=== PATIENT | male | born 1955 | race Caucasian/White ===

== ENCOUNTER 2023-10-26 09:48 | Outpatient (OUT) | payer OTHER, SELFPAY ==
--- NOTE | 2023-10-26 11:27 | CA_ITS ---
Patient Name: DARIN VAN MR#: [id number] : 1955 Exam Date: 10/26/2023 Ordering Doctor: MRS. 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 DESCRIPTION: COMPLETE ECHOCARDIOGRAM Real-time transthoracic echocardiography with 2D, M-mode, spectral and color flow Doppler performed. QUALITY: Technical quality was good. 72 , 208#, BSA 2.17 m2 LEFT VENTRICLE: Normal chamber size. Thickened septal wall. LV EF: Global left ventricular systolic function is mildly reduced; visually estimated ejection fraction is 40 to 45%. Calculated left ventricular ejection fraction is 41%. DIASTOLIC: Grade I diastolic dysfunction. ATRIAL SEPTUM: Inadequately seen. LEFT ATRIUM: Normal chamber size. RIGHT ATRIUM: Normal chamber size. RIGHT VENTRICLE: Normal chamber size. Normal right ventricular systolic function. TRICUSPID VALVE: Normal mobility and thickness. No stenosis with trivial regurgitation. Doppler studies reveal mildly (35-45) elevated right sided pressures. RVSP 35 mmHg MITRAL VALVE: Mildly thickened with normal mobility. No evidence of mitral valve stenosis. There is no mitral annular calcification. Trivial mitral regurgitation. AORTIC VALVE: Normal trileaflet appearance. Moderately thickened and calcified aortic valve. evidence of aortic valve stenosis. No aortic regurgitation. AORTIC ROOT: The aortic root appears moderately enlarged and measures 4.5 cm. PULMONIC VALVE: Normal thickness and mobility. No stenosis. No regurgitation. PERICARDIUM: No evidence of pericardial effusion. IVC: Collapses with inspirations. IVC is normal in size. CONCLUSION: 1. Global left ventricular systolic function is mildly reduced; visually estimated ejection fraction is 40-45% 2. The right ventricle is normal in size and systolic function 3. Mildly elevated right ventricular systolic pressure; RVSP 25 mmHg 4. Aortic root appears moderately enlarged measuring 4.5 cm 5. No significant valvular abnormalities Adult Echocardiography Procedure Report Left Ventricle LVEDD (3. The right ventricle is normal in size and systolic function - 5.6 cm): 4.44 cm LVESD (2.2 - 4.0 cm): 3.23 cm LVIVS thickness (0.6 - 1.2 cm): 1.36 cm LVPW thickness (0.5 - 1.0 cm): 1.15 cm E - e': 8.26 LVOT Max Gradient: 6.04 mm[Hg] LVOT Area (cm2): 1.23 m/s Peak Velocity (LVOT): 1.23 m/s Mean Velocity (LVOT): 0.72 m/s LVOT Diameter 2.54 cm Left Atrium LA Volume Index (2D A2C): 27.38 ml/m2 Left Atrium Systolic Dimension: 3.81 cm Mitral Valve MV E to A Ratio: 0.72 Mitral Valve A-Wave Peak Velocity: 1.06 m/s Mitral Valve E-Wave Peak Velocity: 0.76 m/s Right Ventricle Aorta AO Root Diam: 4.53 cm Aortic Valve AoV Area (Peak Zachariah): 4.90 cm2, 4.90 cm2 AoV Area (VTI): 4.19 cm2, 4.19 cm2 Peak Velocity(Antegrade Flow): 1.27 m/s, 1.23 m/s, 1.14 m/s, 1.18 m/s Peak Gradient(Antegrade Flow): 6.41 mm[Hg], 6.05 mm[Hg], 5.17 mm[Hg], 5.54 mm[Hg] Mean Velocity(Antegrade Flow): 0.84 m/s, 0.82 m/s, 0.70 m/s, 0.71 m/s Mean Gradient(Antegrade Flow): 3.30 mm[Hg], 3.15 mm[Hg], 2.43 mm[Hg], 2.46 mm[Hg] Velocity Time Integral: 21.95 cm, 20.93 cm, 19.49 cm, 20.61 cm Tricuspid Valve Peak Velocity (Regurgitant Flow): 2.81 m/s Pulmonic Valve Peak Gradient: 2.82 mm[Hg], 2.68 mm[Hg] Right Atrium Right Atrium Systolic Pressure: 37.19 ml, 37.19 ml Dictated by: Abigail De Luna M.D. on 10/26/2023 at 13:35 Approved by: Abigail De Luna M.D. on 10/26/2023 at 13:41
== END 2023-10-26 09:49 | disposition home or self-care (01) ==
LOC: CARD 09:48
PROVIDERS: PCP Family Medicine; Visit Provider Nurse Practitioner Acute Care
DX: I50.22 Chronic systolic (congestive) heart failure (principal)
CPT/HCPCS: 93306; 93356

== ENCOUNTER 2024-09-16 10:15 | Inpatient (IN) | payer MEDICARE, OTHER, SELFPAY ==
[2024-09-16] VITALS (35 sets, daily range): BP systolic 87–126; BP diastolic 53–76; PULSE 83–110; TEMP 36.6–37; O2SAT 90–97; BMI 28.2; BMI 28.8
--- NOTE | 2024-09-16 10:19 | ECG_ITS ---
[facility] Test Date: 2024-09-16 Pat Name: Yoel To Department: Room: - Gender: Male [employer]: : 1955 Requested By: JANKI PINZON Order Number: [id number] Reading MD: ANNETTE SCHWARTZ Measurements Intervals [place] Rate: 97 P: 67 MO: 192 QRS: 8 QRSD: 102 T: 171 QT: 342 QTc: 397 Interpretive Statements 1100 Sinus rhythm [address] depression 4564 Twave abnormality, possible lateral ischemia 9150 abnormal ECG Electronically Signed On 09-17-2024 7:42:26 EST by ANNETTE SCHWARTZ
--- NOTE | 2024-09-16 10:19 | XR_ITS ---
[address] [address] Patient Name: DARIN VAN MRN: [id number] date: 1955 Sex: M Assigned Patient Location: ER Current Patient Location: ER Accession/Order Number: [id number] Exam Date: 09/16/2024 10:25 Report Date: 09/16/2024 11:20 At the request of: ANY HART Procedure: XR chest 1V EXAM: XR chest 1V HISTORY: cough COMPARISON: None FINDINGS/IMPRESSION: 1. Mild patchy consolidation at the right lung base, may represent atelectasis or inflammation/infection. 2. No pneumothorax. No pleural effusion. 3. Heart size and mediastinal contours are normal 4. No acute osseous abnormality. Right Mediport catheter in expected position. 5. Sternal wires are intact. 6. Upper abdominal gas pattern is nonspecific. Electronically authenticated by: LEENA BEAR Date: 09/16/2024 11:20
--- OUTSIDE RECORDS SUMMARY | 2024-09-16 10:29 | XMS_ITS | CCD ---
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 Name Role Phone PHYSICIAN, DEFAULT Unavailable Unavailable PHYSICIAN, DEFAULT Unavailable Unavailable ALEC PINZON Unavailable Unavailable PHYSICIAN, DEFAULT Unavailable Unavailable PHYSICIAN, DEFAULT Unavailable Unavailable LAEC PINZON Unavailable Unavailable LalyereAlec modi Primary Care Provider BARBARA PEREA Referring Unavailable ALISSONSABRINA SA Referring Unavailable NADERER, ALEC ISAAC Primary Care Unavailabl e АНДРЕЙ, ANDREIA Referring Unavailable NADERER, ALEC ISAAC Primary Care Unavailabl e АНДРЕЙ, ANDREIA Referring Unavailable NADERELy, ALEC ISAAC Primary Care Unavailabl e АНДРЕЙ, ANDREIA Referring Unavailable NADERER, ALEC ISAAC Primary Care Unavailabl e NadereAlec modi Primary Care Provider Alec Pinzon MD Primary Care Provider ALEC PINZON Primary Care Unavailabl e ROXANN HACKETT Consulting Unavailable ALIA, NING Attending Unavailable ALIA, NING Admitting Unavailable PONCHO SHETH Consulting Unavailable ALIA, NING Consulting Unavailable LEVY, FANTA Consulting Unavailable JONE AMSERINA Consulting Unavailable ZANDRA PINK W Consulting Unavaila FLACO Ernst Consulting Unavailable DIANA SWANSON Consulting Unavailable KERLINE BHATIA Consulting Unavailable Unavailable Primary Care Provider Unavailmitch BUSBY, DR ODOM Admitting Unavailable NADERER, DR ALEC Rose Primary Care Unavailable KEMAL DUNLAPSAM Consulting Unavailable BUSBY, DR ODOM Attending Unavailable BUSBY, DR ODOM Consulting Unavailable NADERER, DR ALEC Rose Attending Unavailable NADERER, DR ALEC Rose Consulting Unavailable NADERER, DR ALEC Rose Primary Care Unavailable NADERER, DR ALEC Rose Admitting Unavailable NADERER, DR ALEC Rose Admitting Unavailable NADERER, DR ALEC Rose Attending Unavailable NADERER, DR ALEC Rose Primary Care Unavailable NADERER, DR ALEC Rose Consulting Unavailable ANGYEBYASMINE, DR STEPHIE Modi Consulting Unavailable NADERER, DR ALEC Rose Primary Care Unavailable SHAHNAZ ., RODDY Admitting Unavailable SHAHNAZ ., RODDY Attending Unavailable DRAKE ., JEWELL HOPSON Consulting Unavailmitch HACKETT, JULISSA Consulting Unavailable ANDERSON, SHAHIDA Consulting Unavailable Terrie, Elba Consulting Unavailable NEFCY, HARMONY Consulting Unavailable NADERER, DR ALEC Rose Attending Unavailable NADERER, DR ALEC Rose Consulting Unavailable NADERER, DR ALEC Rose Primary Care Unavailable NADERER, DR ALEC Rose Admitting Unavailable NADERER, DR ALEC Rose Primary Care Unavailable TERRA, DES Admitting Unavailable TERRA, DES Attending Unavailable DES ELLISON Consulting Unavailable LALYERELy, ALEC Referring Unavailable LALYERELy, ALEC Primary Care Unavailable NADERELy, ALEC Referring Unavailable NADERELy, ALEC Primary Care Unavailable Rose Marie ESCALONA, Alec Primary Care Provider [phone] ROSY, JAS Referring Unavailable KAY DAY Referring Unavailable VIJENDRA, ALEKSANDRA Referring Unavailable HAMMONDS EMIGDIO JESSA Attending Unav ailable VIJENDRA, ALEKSANDRA Attending Unavailable GAVIN LORENZO Referring Unavailable EKWENNA, OBI Referring Unavailable BARRIOS SHAGGY Referring Unavailable HAMMONDS BEAL, JESSA Referring Unav ailable EKWENNA, OBI Attending Unavailable VIJENDRA, ALEKSANDRA Attending Unavailable ROSY, JAS Referring Unavailable ROSY, JAS Referring Unavailable VIJENDRA, ALEKSANDRA Attending Unavailable JAIME GOLDEN Attending Unavailable VIJENDRA, ALEKSANDRA Referring Unavailable HAMMONDS BEAL, JESSA Attending Unav ailable VIJENDRA, ALEKSANDRA Referring Unavailable EKWENNA, OBI Attending Unavailable LASHONDA ROBLES Attending Unavailable VIJENDRA, ALEKSANDRA Referring Unavailable EKWENNA, OBI Attending Unavailable VIJENDRA, ALEKSANDRA Referring Unavailable HAMMONDS BEAL, JESSA Attending Unav ailable VIJENDRA, ALEKSANDRA Referring Unavailable VIJENDRA, ALEKSANDRA Attending Unavailable VIJENDRA, ALEKSANDRA Referring Unavailable CHRISTYJOHNNY MCKNIGHT Attending Unavailable BARRIOS, SHAGGY Attending Unavailable BARB, KAY Referring Unavailable VIJENDRA, ALEKSANDRA Referring Unavailable VIJENDRA, ALEKSANDRA Referring Unavailable HIMA VALLES Attending Unavailable JESSA TORRES Attending Unav ailable VIJENDRA, ALEKSANDRA Referring Unavailable ELGAFY, JAIME Attending Unavailable VIJENDRA, ALEKSANDRA Referring Unavailable GAMBINO, WILLIAM Attending Unavailable VIJENDRA, ALEKSANDRA Referring Unavailable VIJENDRA, ALEKSANDRA Referring Unavailable GAMBINO, WILLIAM Attending Unavailable ELGAFY, JAIME Referring Unavailable EKWENNA, OBPresley Attending Unavailable HAMMONDS EMIGDIO, JESSA Attending Unav ailable NAZZAL, LEDY Attending Unavailable JODEHEVANGELINA Attending Unavailable VIJENDRA, ALEKSANDRA Referring Unavailable MOUKARBEL, CLINTON Attending Unavailable MOUKARBEL, CLINTON Attending Unavailable MARU, KAY Referring Unavailable MOUKARBEL, CLINTON Attending Unavailable VIJENDRA, ALEKSANDRA Attending Unavailable BARB, KAY Referring Unavailable GAMBINO, WILLIAM Referring Unavailable TRAVIS, LASHONDA Attending Unavailable VIJENDRA, ALEKSANDRA Referring Unavailable JESSA TORRES Attending Unav ailable VIJENDRA, ALEKSANDRA Referring Unavailable JESSA TORRES Attending Unav ailable NAZZAL, LEDY Attending Unavailable NAZZAL, MUNIER Admitting Unavailable EKWENNA, OBI Attending Unavailable EKWENNA, OBI Admitting Unavailable NADIA, AMBER Attending Unavailable MARU, KAY Admitting Unavailable NADERELy, ALEC Attending Unavailable NADERER, ALEC Attending Unavailable NADERER, ALEC Attending Unavailable NADERER, ALEC Attending Unavailable Allergies Allergy Classification Reported Allergen(s) Allergy Type Date of Onset Reaction(s) Facility (1 source) 46018,00; Translations: [20584,00] Propensity to adverse reactions (disorder) 9 [facility] Medications Current Medications Medication Drug Class(es) Dates Sig (Normalized) Sig (Original) acetaminophen 325 mg oral tablet (2 sources) Start: 05-02-2021 take 650 mg by mouth every four hours as needed for pain, then take 4000 mg by mouth every twenty-four hours as needed for pain 650 mg, Oral, EVERY 4 HOURS PRN, Pain Mild (1-3), Fever, Fever >100.5 F (38 C), Starting on Wed05/02/21 at 1805 Maximum dose of acetaminophen is 4000 mg from all sources in 24 hours. Recovery(Cath) Start: 04-25-2021 650 mg, Rectal , EVERY 6 HOURS PRN, Pain Mild (1-3), Fever, For temp greater than 100.4 F (38 C), Starting on Wed04/25/21 at 1946 Administer if oral route cannot be used. acetaminophen 325 mg / oxyCODONE hydrochloride 5 mg oral tablet (16 sources) Opioid Agonist Start: 06-28-2024 End: 09-21-2024 take 1 tablet by mouth four times daily as needed for pain oxyCODONE-acetaminophen (Percocet) 5-325 MG tablet Indications: Type 2 diabetes mellitus with diabetic polyneuropathy (CMS/HCC) Take 1 tablet by mouth 4 (four) times a day as needed for severe pain 120 tablet 08/22/2024 09/21/2024 Active Start: 10-31-2019 End: 10-31-2019 oxyCODONE-acetaminophen (PER COCET) 5-325 MG per tablet 2 tablet Start: 10-30-2019 take 2 tablets by mo uth every four hours as needed for pain 2 tablet, Oral, EVERY 4 HOURS PRN, Pain Moderate (4-6), Pain Severe (7-10), Starting 10/30/19 at 2058 Maximum dose of acetaminophen is 4000 mg from all sources in 24 hours. amitriptyline hydrochloride 150 mg oral tablet (12 sources) Tricyclic Antidepressant Start: 02-28-2024 take 1 tablet by mouth at bedtime amitriptyline (Elavil) 150 MG tablet Indications: Type 2 diabetes mellitus with diabetic polyneuropathy (CMS/HCC) TAKE 1 TABLET BY MOUTH AT BEDTIME 90 tablet 3 02/28/2024 Active AMITRIPTYLINE HC L PO Take 150 mg by mouth 0 Active aspirin 81 mg chewable tablet (8 sources) Platelet Aggregation Inhibitor, Nonsteroidal Anti-inflammatory Drug Start: 05-03-2021 take 1 tablet by mouth once daily aspirin 81 MG chewable tablet Take 1 tablet by mouth daily 30 tablet 3 05/03/2021 Active Start: 04-30-2021 aspirin chewab le tablet 81 mg take 1 tablet by manny th in the morning aspirin 81 MG EC tablet Take 1 tablet by mouth in the morning. Active End: 10-31-2019 take 1 tablet by mouth once daily aspirin 81 MG tablet Take 81 mg by mouth daily 0 10/31/2019 Discontinued (Stop Taking at Discharge) atorvastatin 40 mg oral tablet (14 sources) HMG-CoA Reductase Inhibitor Start: 08-13-2023 take 1 tablet by mouth at bedtime atorvastatin (Lipitor) 40 MG tablet Take 40 mg by mouth at bedtime. 08/13/2023 Active Start: 04-25-2021 take 40 mg by mouth once daily 40 mg, Oral, DAILY, First dose on Wed04/25/21 at 1315 Start: 10-30-2019 take 40 mg by mouth once daily 40 mg, Oral, DAILY, First dose on Wed10/30/19 at 2030 take 1 tablet by manny th once daily atorvastatin (LIPITOR) 40 MG tablet Take 40 mg by mouth daily 0 Active Blood Glucose Monitoring Suppl (FreeStyle InsuLinx System) w/Device kit (5 sources) Blood Glucose Monitoring Suppl (FreeStyle InsuLinx System) w/Device kit Active carvedilol 12.5 mg oral tablet (10 sources) alpha-Adrenergic Neema, beta-Adrenergic Neema Start: 05-03-2021 take 1 tablet by mouth twice daily at mealtime carvedilol (COREG) 12.5 MG tablet Take 1 tablet by mouth 2 times daily (with meals) 60 tablet 3 05/03/2021 Active Start: 04-30-2021 carvedilol (CO REG) tablet 12.5 mg Start: 10-30-2019 take 37.5 mg by mout h at mealtime, then take 37 mg by mouth twice daily 37.5 mg (rounded from 37 mg), Oral, 2 TIMES DAILY, First dose on Wed10/30/19 at 2100 Administer with food to minimize the risk of orthostatic hypotension End: 05-03-2021 take 37.5 mg by mouth twice daily Carvedilol (COREG PO) Take 37.5 mg by mouth 2 times daily 0 05/03/2021 Discontinued (Stop Taking at Discharge) take 37.5 mg by mout h twice daily Carvedilol (COREG PO) Take 37.5 mg by mouth 2 times daily 0 Active clopidogrel 75 mg oral tablet (15 sources) P2Y12 Platelet Inhibitor Start: 12-13-2023 take 1 tablet by mouth once daily clopidogrel (Plavix) 75 MG tablet Indications: PVD (peripheral vascular disease) ([facility]) TAKE 1 TABLET BY MOUTH EVERY DAY 90 tablet 5 12/13/2023 Active Start: 05-03-2021 take 1 tablet by manny th once daily clopidogrel (PLAVIX) 75 MG tablet Take 1 tablet by mouth daily 90 tablet 5 05/03/2021 Active Start: 04-24-2021 End: 05-03-2021 clopidogrel (PLAVIX) tablet 75 mg End: 10-31-2019 take 1 tablet by mouth once daily clopidogrel (PLAVIX) 75 MG tablet Take 75 mg by mouth daily 0 10/31/2019 Discontinued (Stop Taking at Discharge) dapagliflozin 10 mg oral tablet (5 sources) Sodium-Glucose Cotransporter 2 Inhibitor Start: 07-10-2024 take 1 tablet by mouth once daily Farxiga 10 MG Indications: Type 2 diabetes mellitus with hyperglycemia ([facility]) TAKE 1 TABLET BY MOUTH EVERY DAY 30 tablet 2 07/10/2024 Active diclofenac sodium 0.01 mg/mg topical gel (9 sources) Nonsteroidal Anti-inflammatory Drug Start: 12-07-2019 diclofenac sodium 1 % GEL APPLY TO THE AFFECTED AREA(S) FOUR TIMES DAILY NEEDED (TRANSDERMALLY) 0 12/07/2019 Active End: 09-06-2024 diclofenac sodium (Voltaren) 1 % gel Apply 2 g topically 4 (four) times a day as needed for pain. 09/06/2024 Discontinued docusate sodium 100 mg oral capsule (5 sources) Start: 08-03-2023 take 2 capsules by mouth twice daily at bedtime docusate sodium (Colace) 100 MG capsule TAKE TWO CAPSULES BY MOUTH TWICE DAILY (IN THE MORNING AND AT BEDTIME) 08/03/2023 Active 0.4 ml enoxaparin sodium 100 mg/ml prefilled syringe (1 source) Low Molecular Weight Heparin Start: 10-31-2019 enoxaparin (LOVENOX) injection 40 mg furosemide 20 mg oral tablet (5 sources) Loop Diuretic Start: 08-19-2023 End: 08-18-2024 take 1 tablet by mouth in the morning furosemide (Lasix) 20 MG tablet Take 20 mg by mouth in the morning. 08/19/2023 Active gabapentin 100 mg oral capsule (14 sources) Anti-epileptic Agent Start: 04-24-2024 take 1 capsule by mouth in the morning gabapentin (Neurontin) 100 MG capsule Indications: Type 2 diabetes mellitus with diabetic polyneuropathy, without long-term current use of insulin (CMS/HCC) Take 1 capsule (100 mg) by mouth in the morning and 1 capsule (100 mg) before bedtime. 60 capsule 5 04/24/2024 Active Start: 04-25-2021 take 600 mg by mouth twice reji ly 600 mg, Oral, 2 TIMES DAILY, First dose on Wed04/25/21 at 1315 Start: 10-30-2019 take 600 mg by mouth twice reji ly 600 mg, Oral, 2 TIMES DAILY, First dose on Wed10/30/19 at 2100 glipiZIDE 10 mg oral tablet (13 sources) Sulfonylurea Start: 07-28-2024 take 1 tablet by mouth twice daily glipiZIDE (Glucotrol) 10 MG tablet Indications: Type 2 diabetes mellitus with hyperglycemia (CMS/HCC) TAKE 1 TABLET BY MOUTH TWICE A DAY 180 tablet 1 07/28/2024 Active Start: 02-28-2024 take 1 tablet by manny th twice daily glipiZIDE (Glucotrol) 10 MG tablet Indications: Type 2 diabetes mellitus with hyperglycemia (CMS/HCC) TAKE 1 TABLET BY MOUTH TWICE DAILY 60 tablet 3 02/28/2024 Active Start: 10-31-2019 take 10 mg by mouth once daily before breakfast 10 mg, Oral, DAILY BEFORE BREAKFAST, First dose on Wed10/31/19 at 0700 take 1 tablet by manny th once daily glipiZIDE (GLUCOTROL XL) 10 MG extended release tablet Take 10 mg by mouth daily 0 Active glucagon (rdna) 1 mg injection (1 source) Antihypoglycemic Agent Start: 04-27-2021 glucago n (rDNA) injection 1 mg 150 ml glucose 50 mg/ml injection (3 sources) Start: 04-27-2021 glucose (GLUTO SE) 40 % oral gel 15 g Start: 04-27-2021 dextrose 50 % IV solution Start: 04-27-2021 dextrose 5 % s olution 250 ml heparin sodium, porcine 100 unt/ml injection (4 sources) Unfractionated Heparin, Anti-coagulant Start: 04-25-2021 heparin 25,000 units in dextrose 5% 250 mL (premix) infusion Start: 04-25-2021 End: 04-25-2021 heparin (porcine) injection 4,000 Units Start: 04-25-2021 heparin (porci ne) injection 2,000 Units Start: 04-25-2021 heparin (porci ne) injection 4,000 Units hydrocortisone 10 mg oral tablet (5 sources) Corticosteroid Start: 07-12-2024 End: 10-19-2024 take 1 tablet by mouth every eight hours hydrocortisone (Cortef) 10 MG tablet Take 10 mg by mouth every 8 (eight) hours 07/12/2024 10/19/2024 Active ibuprofen 800 mg oral tablet (6 sources) Nonsteroidal Anti-inflammatory Drug take 1 tablet by mouth every six hours as needed for pain ibuprofen (ADVIL;MOTRIN) 800 MG tablet Take 800 mg by mouth every 6 hours as needed for Pain 0 Active insulin lispro 100 unt/ml injectable solution (2 sources) Insulin Analog Start: 04-27-2021 insulin lispro (HUMALOG) injection vial 0-6 Units labetalol hydrochloride 5 mg/ml injectable solution (2 sources) beta-Adrenergic Neema Start: 04-25-2021 20 mg, Intravenous, EVERY 4 HOURS PRN, High Blood Pressure, Starting on Wed04/25/21 at 1946 Give for systolic blood pressure greater than 160 Start: 10-30-2019 10 mg, Intrave nous, EVERY 4 HOURS PRN, High Blood Pressure, for SBP > 140, Starting Wed10/30/19 at 2022 levothyroxine sodium 0.05 mg oral tablet (2 sources) l-Thyroxine Start: 07-28-2024 take 1 tablet by mouth in the morning levothyroxine (Synthroid, Levoxyl) 50 MCG tablet Take 50 mcg by mouth in the morning. 07/28/2024 Active linagliptin 5 mg oral tablet (1 source) Dipeptidyl Peptidase 4 Inhibitor Start: 10-30-2019 take 5 mg by mouth once daily 5 mg, Oral, DAILY, First dose on Wed10/30/19 at 2030 Substituted for SITagliptin (JANUVIA). lisinopril 20 mg oral tablet (9 sources) Angiotensin Converting Enzyme Inhibitor Start: 04-29-2021 take 40 mg by mouth once daily 40 mg, Oral, DAILY, First dose on Wed04/29/21 at 0900 Start: 10-30-2019 take 40 mg by mouth once daily 40 mg, Oral, DAILY, First dose on Wed10/30/19 at 2030 take 1 tablet by manny th once daily lisinopril (PRINIVIL;ZESTRIL) 40 MG tablet Take 40 mg by mouth daily 0 Active magnesium hydroxide 80 mg/ml oral suspension (1 source) Start: 10-31-2019 take 30 mL by mouth once daily as needed for constipation 30 mL, Oral, DAILY PRN, Constipation, Starting Wed10/31/19 at 1009 First line therapy for constipation. metFORMIN hydrochloride 1000 mg oral tablet (7 sources) Biguanide take 1 tablet by mouth twice daily at mealtime metFORMIN (GLUCOPHAGE) 1000 MG tablet Take 1,000 mg by mouth 2 times daily (with meals) 0 Active metoprolol tartrate 25 mg oral tablet (6 sources) beta-Adrenergic Neema Start: 07-12-2024 take 1 tablet by mouth in the morning metoprolol tartrate (Lopressor) 25 MG tablet Take 25 mg by mouth in the morning and 25 mg before bedtime. 07/12/2024 Active Start: 04-25-2021 End: 04-30-2021 metoprolol tartrate (LOPRESS OR) tablet 25 mg mupirocin 0.02 mg/mg topical ointment (3 sources) RNA Synthetase Inhibitor Antibacterial Start: 11-22-2019 mupirocin (BACTROBAN ) 2 % ointment APPLY TO THE AFFECTED AREA(S) THREE TIMES DAILY (EXTERNALLY) 0 11/22/2019 Active 24 hr nicotine 0.292 mg/hr transdermal system (1 source) Cholinergic Nicotinic Agonist Start: 04-26-2021 nicotine (NICODERM CQ) 7 MG/24HR 1 patch nitroglycerin 0.4 mg sublingual tablet (8 sources) Nitrate Vasodilator Start: 04-25-2021 0.4 mg, Yepez blingual, EVERY 5 MIN PRN, Chest pain, Starting on Wed04/25/[address] 1 tablet under tongue upon chest pain, wait 5 minutes and may repeat up to 3 doses in 15 minutes. Do not crush or break. nitroGLYCERIN (N ITROSTAT) 0.[address] 0.4 mg under the tongue every 5 minutes as needed for Chest pain up to max of 3 total doses. If no relief after 1 dose, call 911. 0 Active 2 ml ondansetron 2 mg/ml injection (1 source) Serotonin-3 Receptor Antagonist Start: 10-31-2019 4 mg, Intravenous, EVERY 6 HOURS PRN, Nausea, Starting Wed10/31/19 at 1009 ondansetron (ZOFRAN-ODT) disintegrating tablet 4 mg (1 source) Start: 04-25-2021 ondansetron (ZOFRAN-ODT) disintegrating tablet 4 mg pantoprazole 40 mg delayed release oral tablet (15 sources) Proton Pump Inhibitor Start: 07-06-2024 take 1 tablet by mouth twice daily pantoprazole (ProtoNix) 40 MG EC tablet Indications: CAD, multiple vessel (CMS/HCC) TAKE 1 TABLET BY MOUTH TWICE A DAY 90 tablet 1 07/06/2024 Active Start: 05-03-2021 take 1 tablet by manny th once daily pantoprazole (PROTONIX) 40 MG tablet Take 1 tablet by mouth nightly 30 tablet 3 05/03/2021 Active Start: 04-25-2021 pantoprazole ( PROTONIX) tablet 40 mg Start: 10-30-2019 take 80 mg by mouth once daily 80 mg, Oral, DAILY, First dose on Wed10/30/19 at 2030 End: 05-03-2021 take 80 mg by mouth once daily Pantoprazole Sodium (VT OTONIX PO) Take 80 mg by mouth nightly 0 05/03/2021 Discontinued (Stop Taking at Discharge) take 80 mg by mouth once daily P antoprazole Sodium (PROTONIX PO) Take 80 mg by mouth daily 0 Active pioglitazone 15 mg oral tablet (8 sources) Peroxisome Proliferator Receptor alpha Agonist, Peroxisome Proliferator Receptor gamma Agonist, Thiazolidinedione Start: 10-30-2019 take 30 mg by mouth once daily 30 mg, Oral, DAILY, First dose on Wed10/30/19 at 2030 take 1 tablet by mouth once deric y pioglitazone (ACTOS) 30 MG tablet Take 30 mg by mouth daily 0 Active polyethylene glycol [id number] [id number] mg powder for oral solution (1 source) Osmotic Laxative Start: 04-25-2021 17 g, Oral, D AILY PRN, Constipation, Starting on Wed04/25/21 at 1946 First line therapy for constipation Potassium Chloride (3 sources) Start: 04-28-2021 potassium chlo ride (KLOR-CON M) extended release tablet 40 mEq Start: 04-26-2021 End: 04-27-2021 potassium chloride (KLOR-CON M) extended release tablet 40 mEq pyridostigmine bromide 30 mg oral tablet (1 source) Start: 07-12-2024 End: 08-11-2024 pyridostigmine (Mestinon) 30 MG tablet Take 30 mg by mouth in the morning and 30 mg at noon and 30 mg in the evening. 07/12/2024 08/11/2024 Active SITagliptin 100 mg oral tablet (7 sources) Dipeptidyl Peptidase 4 Inhibitor take 1 tablet by mouth once daily SITagliptin (JANUVIA) 100 MG tablet Take 100 mg by mouth daily 0 Active sodium bicarbonate 650 mg oral tablet (2 sources) take 1 tablet by mouth in the morning sodium bicarbonate 650 MG tablet Take 650 mg by mouth in the morning and 650 mg before bedtime. Active 3 ml sodium chloride 9 mg/ml injection (12 sources) Start: 04-28-2021 5-40 mL, Intravenous, PRN, Line Care, Starting on Wed05/02/21 at 1805 For Line Patency: Peripheral IV = 5 mL; Midline or Central Line = 10 mL/lumen. &nbsp ;If following IV push medication, administer flush at same rate as the IV push. Flush volume is determined by type of infusion therapy being given. Fo r non-viscous solutions use: Peripheral IV = 5 mL Midline or Central Line = 10 mL/lumen For viscous solutions (i.e. blood components, parenteral nutrition, contrast media, or after obtaining blood sample) use: Peripheral IV = 10 mL Midline or Central Line = 20 mL/lumen Recovery(Cath) Start: 04-25-2021 take 1 dose intraven ously twice daily 5-40 mL, Intravenous, EVERY 12 HOURS SCHEDULED (2 times per day), First dose on Wed05/02/21 at 2100 For Line Patency: Peripheral IV = 5 mL; Midline or Central Line = 10 mL/lumen. If following IV push medication, administer flush at same rate as the IV push. Flush volume is determined by type of infusion therapy being given. For non-viscous solutions use: Peripheral IV = 5 mL Midline or Central Line = 10 mL/lumen For viscous solutions (i.e. blood components, parenteral nutrition, contrast media, or after obtaining blood sample) use: Peripheral IV = 10 mL Midline or Central Line = 20 mL/lumen Recovery(Cath) Start: 04-25-2021 take 5-40 mL intrave nously once as needed 5-40 mL, Intravenous, PRN, Line Care, After every IV line use, Starting on Wed04/25/21 at 1946 For Line Patency: Peripheral IV = 5 mL; Midline or Central Line = 10 mL/lumen. If following IV push medication, administer flush at same rate as the IV push. Flush volume is determined by type of infusion therapy being given. For non-viscous solutions use: Peripheral IV = 5 mL Midline or Central Line = 10 mL/lumen For viscous solutions (i.e. blood components, parenteral nutrition, contrast media, or after obtaining blood sample) use: Peripheral IV = 10 mL Midline or Central Line = 20 mL/lumen Start: 04-25-2021 take 25 mL intraveno usly every hour as needed 25 mL, Intravenous, at 100 mL/hr, PRN, If patient receiving piggyback infusions without ordered maintenance IV fluids or with frequent/long duration piggyback infusions, Starting on Wed05/02/21 at 1805 Administer at the same rate as the piggyback being infused. Recovery(Cath) Start: 04-24-2021 End: 04-25-2021 0.9 % sodium chloride bolus Start: 10-31-2019 10 mL, Intrave nous, EVERY 12 HOURS SCHEDULED (2 times per day), First dose on Wed10/31/19 at 1030 Start: 10-31-2019 take 10 mL intraveno usly once as needed 10 mL, Intravenous, PRN, Line Care, After every IV line use, Starting Wed10/31/19 at 1009 traZODone hydrochloride 100 mg oral tablet (9 sources) Serotonin Reuptake Inhibitor Start: 04-25-2021 take 200 mg by mouth once daily 200 mg, Oral, NIGHTLY, First dose on Wed04/25/21 at 2100 Start: 10-30-2019 take 50 mg by mouth once daily 50 mg, Oral, NIGHTLY, First dose on Wed10/30/19 at 2100 take 200 mg by mouth once daily TRAZODONE HCL PO Take 200 mg of ampicillin by mouth nightly 0 Active triamcinolone acetonide 5 mg/ml topical cream (5 sources) Corticosteroid triamcinolone (K enalog) 0.5 % cream Apply topically 3 (three) times a day. Active varenicline (1 source) Partial Cholinergic Nicotinic Agonist varenicline (CHANTIX STARTING MONTH ) 0.5 MG X 11 & 1 MG X 42 tablet Chantix Starting Month Box 0.5 mg (11)-1 mg (42) tablets in dose pack 0 Active Completed/Discontinued Medications Medication Drug Class(es) Dates Sig (Normalized) Sig (Original) 2 ml fentaNYL 0.05 mg/ml injection (2 sources) Opioid Agonist Start: 04-25-2021 End: 04-24-2021 fentaNYL (SUBLIMAZE) injection 50 mcg Start: 04-24-2021 End: 04-24-2021 fentaNYL (SUBLIMAZE) injecti on 25 mcg 1 ml haloperidol 5 mg/ml injection (2 sources) Typical Antipsychotic Start: 04-25-2021 End: 04-25-2021 haloperidol lactate (HALDOL) injection 5 mg Start: 04-25-2021 End: 04-25-2021 haloperidol lactate (HALDOL) 5 MG/ML injection iopamidol (ISOVUE-370) 76 % injection 90 mL (1 source) Start: 04-24-2021 End: 04-24-2021 iopamidol (ISOVUE-370) 76 % injection 90 mL 1 ml LORazepam 2 mg/ml injection (3 sources) Benzodiazepine Start: 04-25-2021 End: 04-25-2021 LORazepam (ATIVAN) injection 1 mg Start: 04-25-2021 End: 04-25-2021 LORazepam (ATIVAN) injection 2 mg 50 ml magnesium sulfate 40 m g/ml injection (3 sources) Start: 05-02-2021 End: 05-02-2021 magnesium sulfate 2000 mg in 50 mL IVPB premix Start: 04-28-2021 End: 04-28-2021 magnesium sulfate 1000 mg in dextrose 5% 100 mL IVPB Start: 04-27-2021 End: 04-27-2021 magnesium sulfate 2000 mg in 50 mL IVPB premix Problems Active Problems Problem Classification Problem Date Documented Da te Episodic/Chronic Acute cerebrovascular disease (20 sources) Cerebrovascular accident; Translations: [Intraparenchymal hemorrhage of brain] Onset: 0 10-30-2019 Chronic Acute cerebrovascular disease (4 sources) Acute stroke; Translations: [Acute cerebrovascular accident (CVA)] Onset: 0 10-30-2019 Acute myocardial infarction (2 sources) Myocardial infarction; Translations: [Non-ST elevation (NSTEMI) myocardial infarction] Onset: 1 Chronic Aortic; peripheral; and visceral artery aneurysms (7 sources) Aneurysm of thoracic aorta; Translations: [Aneurysm of thoracic aorta] Onset: 2 09-07-2023 Chronic Cancer of kidney and renal pelvis (7 sources) Renal cell carcinoma; Translations: [Malignant neoplasm of unspecified kidney, except renal pelvis] Onset: 4 03-15-2024 Chronic Chronic kidney disease (5 sources) Chronic kidney disease stage 3B ; Translations: [CKD stage 3b, GFR 30-44 ml/min] Onset: 4 03-15-2024 Chronic Chronic kidney disease (2 sources) Chronic kidney disease; Translations: [Chronic kidney disease, stage 3a] Onset: 4 Conditions associated with dizziness or vertigo (2 sources) Dizziness and giddiness; Translations: [Dizziness and giddiness] Onset: 4 Episodic Congestive heart failure; nonhypertensive (2 sources) Chronic systolic (congestive) heart failure; Translations: [Chronic systolic (congestive) heart failure] Onset: 4 Chronic Coronary atherosclerosis and other heart disease (13 sources) Multi vessel coronary artery disease; Translations: [Atherosclerotic heart disease of [place] coronary artery without angina pectoris] Onset: 1 Chronic Coronary atherosclerosis and other heart disease (6 sources) Patient post percutaneous transluminal coronary angioplasty; Translations: [Coronary angioplasty status] Onset: 1 Episodic Diabetes mellitus with complications (20 sources) Type 2 diabetes mellitus with hyperglycemia; Translations: [Type 2 diabetes mellitus with diabetic peripheral angiopathy without gangrene] Onset: 2 Chronic Diabetes mellitus without complication (3 sources) Secondary diabetes mellitus; Translations: [Type 2 diabetes mellitus] Onset: 1 Chronic Disorders of lipid metabolism (6 sources) Hyperlipidemia, unspecified; Translations: [Hyperlipidemia] Onset: 2 09-07-2023 Chronic Diverticulosis and diverticulitis (1 source) Diverticulosis of intestine, part unspecified, without perforation or abscess without bleeding; Translations: [DVRTCLOS PRT UNS NO PERF/ABSC NO BL] Onset: 2 Chronic Esophageal disorders (8 sources) Gastro-esophageal reflux disease without esophagitis; Translations: [Gastroesophageal reflux disease] Onset: 2 09-07-2023 Chronic Essential hypertension (10 sources) Essential (primary) hypertension; Translations: [Benign essential hypertension] Onset: 2 09-07-2023 Chronic Fluid and electrolyte disorders (6 sources) Hypokalemia; Translations: [Hypokalemia] Onset: 1 Episodic Late effects of cerebrovascular disease (4 sources) Left hemiparesis; Translations: [Hemiplegia and hemiparesis following cerebral infarction affecting left non-dominant side] 09-06-2024 Chronic Maintenance chemotherapy; radiotherapy (4 sources) Encounter for antineoplastic immunotherapy; Translations: [Encounter for antineoplastic chemotherapy] Onset: 4 Chronic Malignant neoplasm without specification of site (2 sources) Malignant (primary) neoplasm, unspecified; Translations: [Malignant (primary) neoplasm, unspecified] Onset: 4 Chronic Miscellaneous mental health disorders (2 sources) Primary insomnia; Translations: [Primary insomnia] 09-06-2024 Chronic Nutritional deficiencies (2 sources) Vitamin D deficiency, unspecified; Translations: [Vitamin D deficiency, unspecified] Onset: 4 Chronic Osteoarthritis (5 sources) Chronic osteoarthritis; Translations: [Unspecified osteoarthritis, unspecified site] Onset: 3 09-07-2023 Chronic Other aftercare (2 sources) 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; Translations: [long term care social worker (current) use of anticoagulants] Episodic Other and ill-defined cerebrovascular disease (1 source) Cerebrovascular disease, unspecified; Translations: [CEREBROVASCULAR DISEASE UNSPECIFIED] Onset: 2 Chronic Other circulatory disease (2 sources) Presence of other vascular implants and grafts; Translations: [Presence of other vascular implants and grafts] Onset: 4 Chronic Other circulatory disease (2 sources) Other hypotension; Translations: [Other hypotension] Onset: 4 Episodic Other circulatory disease (2 sources) Hypotension, unspecified; Translations: [Hypotension, unspecified] Onset: 4 Episodic Other diseases of kidney and ureters (2 sources) Other specified disorders of kidney and ureter; Translations: [Other specified disorders of kidney and ureter] Onset: 4 Chronic Other endocrine disorders (2 sources) Unspecified adrenocortical insufficiency; 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 insufficiency] Onset: 4 Chronic Other endocrine disorders (2 sources) Drug-induced adrenocortical insufficiency; Translations: [Drug-induced adrenocortical insufficiency] Onset: 4 Chronic Other endocrine disorders (2 sources) Hyperparathyroidism, unspecified; Translations: [Hyperparathyroidism, unspecified] Onset: 4 Chronic Other endocrine disorders (4 sources) Hypoadrenalism; 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 insufficiency] Onset: 4 09-06-2024 Chronic Other fractures (2 sources) Wedge compression fracture of first lumbar vertebra, subsequent encounter for fracture with routine healing; Translations: [Wedge compression fracture of first lumbar vertebra, subsequent encounter for fracture with routine healing] Onset: 4 Episodic Other gastrointestinal disorders (2 sources) History of gastrointestinal bleed; Translations: [Personal history of other diseases of the digestive system] Episodic Other liver diseases (2 sources) Unspecified jaundice; Translations: [Unspecified jaundice] Onset: 4 Episodic Other lower respiratory disease (2 sources) Other nonspecific abnormal finding of lung field; Translations: [Other nonspecific abnormal finding of lung field] Onset: 4 Episodic Other nervous system disorders (1 source) Intracranial space-occupying lesion; Translations: [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] Episodic Other nutritional; endocrine; and metabolic disorders (2 sources) Hypomagnesemia; Translations: [Hypomagnesemia] Onset: 1 Chronic Other nutritional; endocrine; and metabolic disorders (2 sources) Hypercalcemia; Translations: [Hypercalcemia] Onset: 4 Chronic Other screening for suspected conditions (not mental disorders or infectious disease) (3 sources) Encounter for screening for malignant neoplasm of prostate; Translations: [Other specified abnormal findings of blood chemistry] Onset: 3 Episodic Peripheral and visceral atherosclerosis (7 sources) Peripheral vascular disease; Translations: [Peripheral vascular disease, unspecified] Onset: 2 09-07-2023 Chronic Residual codes; unclassified (6 sources) Memory impairment; Translations: [Other amnesia] 05-08-2020 Episodic Residual codes; unclassified (2 sources) Altered mental status; Translations: [Altered mental status, unspecified] Episodic Residual codes; unclassified (2 sources) Acquired absence of kidney; Translations: [Acquired absence of kidney] Onset: 4 Episodic Spondylosis; intervertebral disc disorders; other back problems (2 sources) Discitis; Translations: [Discitis, unspecified, lumbosacral region] Onset: 1 Chronic Substance-related disorders (3 sources) Nicotine dependence, cigarettes, uncomplicated; Translations: [NICOTINE DEPEND CIGARETTES UNCOMP] Onset: 2 Chronic Thyroid disorders (6 sources) Hypothyroidism due to medicaments and other exogenous substances; Translations: [Autoimmune thyroiditis] Onset: 4 Chronic Unclassified (1 source) CONTACT W/AND (SUSP) EXPOS COVID-19; Translations: [CONTACT W/AND (SUSP) EXPOS COVID-19] Onset: 2 Unclassified (3 sources) ANEURYSM ASCEND AORTA W/O RUPTURE; Translations: [ANEURYSM ASCEND AORTA W/O RUPTURE] Onset: 2 Unclassified (1 source) Aneurysm of the ascending aorta, without rupture; Translations: [Aneurysm of the ascending aorta, without rupture] Onset: 3 Unclassified (1 source) Thoracic aortic aneurysm, without rupture, unspecified; Translations: [Thoracic aortic aneurysm, without rupture, unspecified] Onset: 3 Past or Other Problems Problem Classification Problem Date Documented Date Episodic/Chronic Abdominal pain (4 sources) Unspecified abdominal pain; Translations: [UNSPECIFIED ABDOMINAL PAIN] Onset: 09-02-2022 Episodic Biliary tract disease (1 source) Acute cholecystitis; Translations: [ACUTE CHOLECYSTITIS] Onset: 09-04-2022 Episodic Cardiac dysrhythmias (1 source) Tachycardia, unspecified; Translations: [TACHYCARDIA UNSPECIFIED] Onset: 09-04-2022 Episodic Deficiency and other anemia (2 sources) Anemia, unspecified; Translations: [Anemia, unspecified] Onset: 10-06-2023 Episodic Malaise and fatigue (1 source) Weakness; Translations: [WEAKNESS] Onset: 09-04-2022 Episodic Nausea and vomiting (1 source) Vomiting, unspecified; Translations: [VOMITING UNSPECIFIED] Onset: 09-04-2022 Episodic Nonspecific chest pain (1 source) Chest pain, unspecified; Translations: [CHEST PAIN UNSPECIFIED] Onset: 09-04-2022 Episodic Other aftercare (3 sources) Other intermission coordinator (current) drug therapy; Translations: [OTH SENIOR CARE CURRENT DRUG THERAPY] Onset: 11-22-2022 Episodic Other aftercare (1 source) jail (current) use of oral hypoglycemic drugs; Translations: [ASSOCIATE FINANCIAL REPRESENTATIVE USE ORAL HYPOGLYCEMIC DX] Onset: 09-04-2022 Episodic Other aftercare (2 sources) Encounter for other specified aftercare; Translations: [Encounter for other specified aftercare] Onset: 12-09-2023 Episodic Other aftercare (2 sources) Encounter for adjustment and management of vascular access device; Translations: [Encounter for adjustment and management of vascular access device] Onset: 12-08-2023 Episodic Other circulatory disease (2 sources) Personal history of transient ischemic attack (TIA), and cerebral infarction without residual deficits; Translations: [Personal history of transient ischemic attack (TIA), and cerebral infarction without residual deficits] Onset: 07-30-2023 Episodic Other diseases of kidney and ureters (2 sources) Disorder of kidney and ureter, unspecified; Translations: [Disorder of kidney and ureter, unspecified] Onset: 12-29-2023 Episodic Other fractures (2 sources) Collapsed vertebra, not elsewhere classified, lumbar region, subsequent encounter for fracture with routine healing; Translations: [Collapsed vertebra, not elsewhere classified, lumbar region, subsequent encounter for fracture with routine healing] Onset: 05-18-2024 Episodic Other fractures (2 sources) Wedge compression fracture of first lumbar vertebra, sequela; Translations: [Wedge compression fracture of first lumbar vertebra, sequela] Onset: 04-04-2024 Episodic Other injuries and conditions due to external causes (5 sources) At high risk for fall; Translations: [History of falling] Onset: 09-07-2023 09-07-2023 Episodic Other lower respiratory disease (1 source) Shortness of breath; Translations: [SHORTNESS OF BREATH] Onset: 09-04-2022 Episodic Other lower respiratory disease (2 sources) Solitary pulmonary nodule; Translations: [Solitary pulmonary nodule] Onset: 09-14-2023 Episodic Other nervous system disorders (2 sources) Other acute postprocedural pain; Translations: [Other acute postprocedural pain] Onset: 12-16-2023 Episodic Pleurisy; pneumothorax; pulmonary collapse (5 sources) Atelectasis; Translations: [Atelectasis] Onset: 07-30-2023 09-07-2023 Episodic Residual codes; unclassified (1 source) Acquired absence of other specified parts of digestive tract; Translations: [ACQ ABSENCE OTH PART DIGESTV TRACT] Onset: 10-01-2022 Episodic Residual codes; unclassified (5 sources) Insomnia; Translations: [Insomnia, unspecified] Onset: 09-07-2023 09-07-2023 Episodic Septicemia (except in labor) (1 source) Sepsis, unspecified organism; Translations: [SEPSIS UNSPECIFIED ORGANISM] Onset: 09-04-2022 Episodic Skin and subcutaneous tissue infections (4 sources) Cutaneous abscess of abdominal wall; Translations: [CUTANEOUS ABSCESS OF ABDOMINAL WALL] Onset: 09-25-2022 Episodic Unclassified (1 source) ANEURYSM ASCEND AORTA W/O RUPTURE; Translations: [ANEURYSM ASCEND AORTA W/O RUPTURE] Onset: 08-21-2022 Unclassified (1 source) Aneurysm of the ascending aorta, without rupture; Translations: [Aneurysm of the ascending aorta, without rupture] Onset: 07-19-2024 Unclassified (1 source) Thoracic aortic aneurysm, without rupture, unspecified; Translations: [Thoracic aortic aneurysm, without rupture, unspecified] Onset: 02-25-2024 Results Test Name Value Interpretation Reference Range Facility BASIC METABOLIC PANELon 06-19 Anion gap [Moles/Vol] 12 mmol/L Normal 7-20 [facility] Comment on above: Performed By: #### L [id number] ####[facility] ([facility])[address] [place] [address] Calcium [Mass/Vol] 9.1 mg/dL Normal 8.6-10.3 [facility] Comment on above: Performed By: #### L [id number] ####[facility] ([facility])[address] [place] [address] Chloride [Moles/Vol] 106 mmol/L Normal 98-107 [facility] Comment on above: Performed By: #### L [id number] ####[facility] ([facility])[address] [place] [address] CO2 [Moles/Vol] 23 mmol/L Normal 21-31 [facility] Comment on above: Performed By: #### L [id number] ####[facility] ([facility])[address] [place] [address] Creatinine [Mass/Vol] 1.72 mg/dL High 0.70-1.30 [facility] Comment on above: Performed By: #### L [id number] ####[facility] ([facility])[address] [place] [address] GLOMERULAR FILTRATION RATE ML/MIN/1.73 SQ M.PREDICTED 43.0 mL/min/1.73m*2 Low >60.0 [facility] Comment on above: Result Comment: [facility]???s estimated glomerular filtration rate (eGFR) will no longer include consideration of race in its calculation. The National Kidney Foundation???s eGFR Task Force developed new recommendations for the estimation of the glomerular filtration rate in the [place] They recommend immediate implementation of the new equation refit without the race variable in all laboratories because the calculation does not include race. In addition to not including race in the calculation and reporting, it included diversity in its development, and has acceptable performance characteristics and potential consequences that do not disproportionately affect any one group of individuals. Performed By: #### L [id number] ####[facility] ([facility])[address] [place] [address] Glucose [Mass/Vol] 119 mg/dL High 70-100 [facility] Comment on above: Performed By: #### L [id number] ####[facility] ([facility])[address] [place] [address] Potassium [Moles/Vol] 4.1 mmol/L Normal 3.5-5.1 [facility] Comment on above: Performed By: #### L [id number] ####[facility] ([facility])[address] [place] [address] Sodium [Moles/Vol] 137 mmol/L Normal 136-145 [facility] Comment on above: Performed By: #### L [id number] ####[facility] ([facility])[address] [place] [address] Urea nitrogen [Mass/Vol] 22 mg/dL Normal 7-25 [facility] Comment on above: Performed By: #### L [id number] ####[facility] [place] [address] UREA NITROGEN/CREATININE (MASS RATIO) IN SER/PLAS 12.8 Normal [facility] Comment on above: Performed By: #### L [id number] ####[facility] ([facility])[address] [place] [address] CBCon 2024 Erythrocyte distribution width (RBC) [Ratio] 14.4 % Normal 11.5-15.0 [facility] Comment on above: Performed By: #### L [id number] ####[facility] ([facility])[address] [place] [address] ERYTHROCYTE MEAN CORPUSCULAR HEMOGLOBIN CONCENTRATION (G/DL) BY AUTOMATED 33.8 g/dL Normal 32.0-35.0 [facility] Comment on above: Performed By: #### L [id number] ####[facility] ([facility])[address] [place] [address] Hematocrit (Bld) [Volume fraction] 34.9 % Low 39.0-55.0 [facility] Comment on above: Performed By: #### L [id number] ####[facility] ([facility])[address] [place] [address] Hemoglobin (Bld) [Mass/Vol] 11.8 g/dL Low 13.0-17.0 [facility] Comment on above: Performed By: #### L [id number] ####[facility] ([facility])[address] [place] [address] MCH (RBC) [Entitic mass] 30.0 pg Normal 27.0-33.0 [facility] Comment on above: Performed By: #### L [id number] ####[facility] ([facility])[address] [address] MCV (RBC) [Entitic vol] 88.8 fL Normal 82.0-98.0 [facility] Comment on above: Performed By: #### L [id number] ####[facility] ([facility])[address] [address] PLATELETS (10*3/UL) IN BLOOD AUTOMATED COUNT 272 10*3/uL Normal 150-400 [facility] Comment on above: Performed By: #### L [id number] ####[facility] ([facility])[address] [place] [address] RBC (Bld) [#/Vol] 3.93 10*6/uL Low 4.20-5.70 [facility] Comment on above: Performed By: #### L [id number] ####[facility] ([facility])[address] [address] WBC (Bld) [#/Vol] 4.96 10*3/uL Normal 4.00-10.60 [facility] Comment on above: Performed By: #### L [id number] ####[facility] [place] [address] CORTISOLon 2024 CORTISOL (UG/DL) IN SER/PLAS 1.9 ug/dL Low 6-23 [facility] Comment on above: Performed By: #### L [id number] ####[facility] ([facility])[address] [place] [address] MAGNESIUMon 2024 Magnesium [Mass/Vol] 1.3 mg/dL Low 1.9-2.7 [facility] Comment on above: Performed By: #### L [id number] ####[facility] ([facility])[address] [place] [address] PHOSPHORUSon 2024 Magnesium [Mass/Vol] 3.4 mg/dL Normal 2.5-5.0 [facility] Comment on above: Performed By: #### L [id number] ####[facility] ([facility])[address] [place] [address] 30on 07-10-2024 30 The patient is Moder ately Stable - Low risk of patient condition declining or worsening The patient's goals for the shift include Sleep, rest The clinical goals for the shift include Comfort, safety, sleep Normal [facility] BASIC METABOLIC PANELon 06-19 Anion gap [Moles/Vol] 9 mmol/L Normal 7-20 [facility] Comment on above: Performed By: #### L [id number] ####[facility] [place] [address] Calcium [Mass/Vol] 9.4 mg/dL Normal 8.6-10.3 [facility] Comment on above: Performed By: #### L [id number] ####[facility] ([facility] [place] [address] Chloride [Moles/Vol] 106 mmol/L Normal 98-107 [facility] Comment on above: Performed By: #### L [id number] ####[facility] ([facility])[address] [place] [address] CO2 [Moles/Vol] 24 mmol/L Normal 21-31 [facility] Comment on above: Performed By: #### L [id number] ####[facility] ([facility])[address] [place] [address] Creatinine [Mass/Vol] 1.95 mg/dL High 0.70-1.30 [facility] Comment on above: Performed By: #### L [id number] ####[facility] ([facility] [place] [address] GLOMERULAR FILTRATION RATE ML/MIN/1.73 SQ M.PREDICTED 37.2 mL/min/1.73m*2 Low >60.0 [facility] Comment on above: Result Comment: [facility]???s estimated glomerular filtration rate (eGFR) will no longer include consideration of race in its calculation. The National Kidney Foundation???s eGFR Task Force developed new recommendations for the estimation of the glomerular filtration rate in the [place] They recommend immediate implementation of the new equation refit without the race variable in all laboratories because the calculation does not include race. In addition to not including race in the calculation and reporting, it included diversity in its development, and has acceptable performance characteristics and potential consequences that do not disproportionately affect any one group of individuals. Performed By: #### L [id number] ####[facility] ([facility])[address] [place] [address] Glucose [Mass/Vol] 136 mg/dL High 70-100 [facility] Comment on above: Performed By: #### L [id number] ####[facility] ([facility])[address] [place] [address] Potassium [Moles/Vol] 4.1 mmol/L Normal 3.5-5.1 [facility] Comment on above: Performed By: #### L [id number] ####[facility] ([facility])[address] [place] [address] Sodium [Moles/Vol] 135 mmol/L Low 136-145 [facility] Comment on above: Performed By: #### L [id number] ####[facility] ([facility] [place] [address] Urea nitrogen [Mass/Vol] 26 mg/dL High 7-25 [facility] Comment on above: Performed By: #### L [id number] ####[facility] ([facility] [place] [address] UREA NITROGEN/CREATININE (MASS RATIO) IN SER/PLAS 13.3 Normal [facility] Comment on above: Performed By: #### L [id number] ####[facility] ([facility] [place] [address] CBCon 07-10-2024 Erythrocyte distribution width (RBC) [Ratio] 14.6 % Normal 11.5-15.0 [facility] Comment on above: Performed By: #### L [id number] ####[facility] ([facility])[address] [place] [address] ERYTHROCYTE MEAN CORPUSCULAR HEMOGLOBIN CONCENTRATION (G/DL) BY AUTOMATED 33.5 g/dL Normal 32.0-35.0 [facility] Comment on above: Performed By: #### L [id number] ####[facility] ([facility])[address] [place] [address] Hematocrit (Bld) [Volume fraction] 36.4 % Low 39.0-55.0 [facility] Comment on above: Performed By: #### L [id number] ####[facility] ([facility])[address] [place] [address] Hemoglobin (Bld) [Mass/Vol] 12.2 g/dL Low 13.0-17.0 [facility] Comment on above: Performed By: #### L [id number] ####[facility] ([facility])[address] [place] [address] MCH (RBC) [Entitic mass] 30.0 pg Normal 27.0-33.0 [facility] Comment on above: Performed By: #### L [id number] ####[facility] ([facility] [place] [address] MCV (RBC) [Entitic vol] 89.4 fL Normal 82.0-98.0 [facility] Comment on above: Performed By: #### L [id number] ####[facility] ([facility] [place] [address] PLATELETS (10*3/UL) IN BLOOD AUTOMATED COUNT 272 10*3/uL Normal 150-400 [facility] Comment on above: Performed By: #### L [id number] ####[facility] ([facility])[address] [place] [address] RBC (Bld) [#/Vol] 4.07 10*6/uL Low 4.20-5.70 [facility] Comment on above: Performed By: #### L [id number] ####[facility] ([facility])[address] [place] [address] WBC (Bld) [#/Vol] 5.73 10*3/uL Normal 4.00-10.60 [facility] Comment on above: Performed By: #### L [id number] ####[facility] ([facility])[address] [place] [address] CORTISOLon 07-10-2024 CORTISOL (UG/DL) IN SER/PLAS 2.0 ug/dL Low 6-23 [facility] Comment on above: Performed By: #### L [id number] ####[facility] ([facility])[address] [facility] [place] [address] AMMONIAon 07-09-2024 AMMONIA (UMOL/L) IN PLASMA 28 umol/L Normal 18-72 [facility] Comment on above: Performed By: #### L [id number] ####[facility] ([facility])[address] [place] [address] APTTon 07-09-2024 ACTIVATED PARTIAL THROMBOPLASTIN TIME IN PPP BY COAGULATION ASSAY 93.8 Seconds High 25.0-35.0 [facility] Comment on above: Result Comment: Clin ical significance of the APTT is questionable in the presence of heparin. Performed By: #### L [id number] ####[facility] ([facility])[address] [place] [address] CALCIUM, IONIZEDon CALCIUM IONIZED (MMOL/L) IN BLOOD 1.16 mmol/L Normal 1.15-1.33 [facility] Comment on above: Performed By: #### L [id number] ####[facility] [id number] [place] [address] [place] CBC WITH AUTO DIFFERENTIALon 07-09-2024 Basophils (Bld) [#/Vol] 0.04 10*3/uL Normal 0.00-0.20 [facility] Comment on above: Performed By: #### L [id number] ####[facility] ([facility])[address] [place] [address] Basophils/100 WBC (Bld) 0.6 % Normal 0.0-1.0 [facility] Comment on above: Performed By: #### L [id number] ####[facility] ([facility])[address] [place] [address] Eosinophils (Bld) [#/Vol] 0.17 10*3/uL Normal 0.00-0.50 [facility] Comment on above: Performed By: #### L [id number] ####[facility] ([facility])[address] [place] [address] Eosinophils/100 WBC (Bld) 2.7 % Normal 0.0-6.0 [facility] Comment on above: Performed By: #### L [id number] ####[facility] ([facility])[address] [place] [address] Erythrocyte distribution width (RBC) [Ratio] 14.7 % Normal 11.5-15.0 [facility] Comment on above: Performed By: #### L [id number] ####[facility] ([facility])[address] [place] [address] ERYTHROCYTE MEAN CORPUSCULAR HEMOGLOBIN CONCENTRATION (G/DL) BY AUTOMATED 33.8 g/dL Normal 32.0-35.0 [facility] Comment on above: Performed By: #### L [id number] ####[facility] ([facility])[address] [place] [address] Hematocrit (Bld) [Volume fraction] 37.9 % Low 39.0-55.0 [facility] Comment on above: Performed By: #### L [id number] ####[facility] ([facility])[address] [place] [address] Hemoglobin (Bld) [Mass/Vol] 12.8 g/dL Low 13.0-17.0 [facility] Comment on above: Performed By: #### L [id number] ####[facility] ([facility])[address] [place] [address] Immature granulocytes (Bld) [#/Vol] 0.02 10*3/uL Normal 0.00-0.20 [facility] Comment on above: Performed By: #### L [id number] ####[facility] ([facility])[address] [place] [address] Immature granulocytes/100 WBC (Bld) 0.3 % Normal 0.0-1.0 [facility] Comment on above: Performed By: #### L [id number] ####[facility] ([facility])[address] [place] [address] Lymphocytes (Bld) [#/Vol] 1.64 10*3/uL Normal 1.20-4.00 [facility] Comment on above: Performed By: #### L [id number] ####[facility] ([facility])[address] [facility] [address] Lymphocytes/100 WBC (Bld) 26.0 % Normal 20.0-45.0 [facility] Comment on above: Performed By: #### L [id number] ####[facility] ([facility])[address] [place] [address] MCH (RBC) [Entitic mass] 29.8 pg Normal 27.0-33.0 [facility] Comment on above: Performed By: #### L [id number] ####[facility] ([facility])[address] [place] [address] MCV (RBC) [Entitic vol] 88.3 fL Normal 82.0-98.0 [facility] Comment on above: Performed By: #### L [id number] ####[facility] ([facility])[address] [place] [address] Monocytes (Bld) [#/Vol] 0.59 10*3/uL Normal 0.10-1.00 [facility] Comment on above: Performed By: #### L [id number] ####[facility] ([facility])[address] [place] [address] Monocytes/100 WBC (Bld) 9.4 % Normal 5.0-12.0 [facility] Comment on above: Performed By: #### L [id number] ####[facility] ([facility])[address] [place] [address] Neutrophils (Bld) [#/Vol] 3.85 10*3/uL Normal 1.60-7.60 [facility] Comment on above: Performed By: #### L [id number] ####[facility] ([facility])[address] [place] [address] Neutrophils/100 WBC (Bld) 61.0 % Normal 40.0-72.0 [facility] Comment on above: Performed By: #### L [id number] ####[facility] ([facility])[address] [place] [address] NRBC (PER 100 WBCS) BY AUTOMATED COUNT 0.0 % Normal 0 [facility] Comment on above: Performed By: #### L [id number] ####[facility] ([facility])[address] [place] [address] PLATELETS (10*3/UL) IN BLOOD AUTOMATED COUNT 324 10*3/uL Normal 150-400 [facility] Comment on above: Performed By: #### L [id number] ####[facility] ([facility])[address] [place] [address] RBC (Bld) [#/Vol] 4.29 10*6/uL Normal 4.20-5.70 [facility] Comment on above: Performed By: #### L [id number] ####[facility] ([facility])[address] [place] [address] WBC (Bld) [#/Vol] 6.31 10*3/uL Normal 4.00-10.60 [facility] Comment on above: Performed By: #### L [id number] ####[facility] ([facility] [place] [address] COMPREHENSIVE METABOLIC PANE Sonido 07-09-2024 Albumin [Mass/Vol] 3.7 g/dL Normal 3.5-5.7 [facility] Comment on above: Performed By: #### L [id number] ####[facility] ([facility])[address] [place] [address] ALP [Catalytic activity/Vol] 91 U/L Normal 34-104 [facility] Comment on above: Performed By: #### L [id number] ####[facility] ([facility])[address] [place] [address] ALT [Catalytic activity/Vol] 14 U/L Normal 7-52 [facility] Comment on above: Performed By: #### L [id number] ####[facility] ([facility])[address] [place] [address] Anion gap [Moles/Vol] 14 mmol/L Normal 7-20 [facility] Comment on above: Performed By: #### L [id number] ####[facility] ([facility])[address] [place] [address] AST [Catalytic activity/Vol] 14 U/L Normal 13-39 [facility] Comment on above: Performed By: #### L [id number] ####[facility] ([facility])[address] [place] [address] Bilirubin [Mass/Vol] 0.7 mg/dL Normal 0.3-1.0 [facility] Comment on above: Performed By: #### L [id number] ####[facility] ([facility])[address] [place] [address] Calcium [Mass/Vol] 10.0 mg/dL Normal 8.6-10.3 [facility] Comment on above: Performed By: #### L [id number] ####[facility] ([facility])[address] [place] [address] Chloride [Moles/Vol] 100 mmol/L Normal 98-107 [facility] Comment on above: Performed By: #### L [id number] ####[facility] ([facility])[address] [place] [address] CO2 [Moles/Vol] 23 mmol/L Normal 21-31 [facility] Comment on above: Performed By: #### L [id number] ####[facility] ([facility])[address] [place] [address] Creatinine [Mass/Vol] 2.27 mg/dL High 0.70-1.30 [facility] Comment on above: Performed By: #### L [id number] ####[facility] ([facility])[address] [place] [address] GLOMERULAR FILTRATION RATE ML/MIN/1.73 SQ M.PREDICTED 31.0 mL/min/1.73m*2 Low >60.0 [facility] Comment on above: Result Comment: [facility]???s estimated glomerular filtration rate (eGFR) will no longer include consideration of race in its calculation. The [employer] Kid[employer] Foundation???s eGFR Task Force developed new recommendations for the estimation of the glomerular filtration rate in the [place] They recommend immediate implementation of the new equation refit without the race variable in all laboratories because the calculation does not include race. In addition to not including race in the calculation and reporting, it included diversity in its development, and has acceptable performance characteristics and potential consequences that do not disproportionately affect any one group of individuals. Performed By: #### L [id number] ####[facility] ([facility])[address] [place] [address] Glucose [Mass/Vol] 245 mg/dL High 70-100 [facility] Comment on above: Performed By: #### L [id number] ####[facility] ([facility])[address] [place] [address] Potassium [Moles/Vol] 4.4 mmol/L Normal 3.5-5.1 [facility] Comment on above: Performed By: #### L [id number] ####[facility] ([facility])[address] [place] [address] Protein [Mass/Vol] 7.5 g/dL Normal 6.0-8.3 [facility] Comment on above: Performed By: #### L [id number] ####[facility] ([facility])[address] [place] [address] Sodium [Moles/Vol] 133 mmol/L Low 136-145 [facility] Comment on above: Performed By: #### L [id number] ####[facility] ([facility])[address] [place] [address] Urea nitrogen [Mass/Vol] 28 mg/dL High 7-25 [facility] Comment on above: Performed By: #### L [id number] ####[facility] ([facility])[address] [place] [address] UREA NITROGEN/CREATININE (MASS RATIO) IN SER/PLAS 12.3 Normal [facility] Comment on above: Performed By: #### L [id number] ####[facility] ([facility])[address] [place] [address] CT HEAD WO IV CONTRASTon CT HEAD WO IV CONTRAST Normal [facility]Son 07-09-2024 EDNURS states pt was s een a week ago Wednesday for ketruda infusion. Was hypotensive at that time and given fluid. Dr sykes wanted pt to come to ed for eval at that time, but pt declined. Today states his bp was 82/56 with a HR 107. Normal [facility] EDPROVon 07-09-2024 EDPROV Normal [facility] HPon 07-09-2024 HP Normal [facility] LACTIC ACID WITH 4 HOUR REFL EXon 07-09-2024 LACTATE (MMOL/L) IN SER/PLAS 1.1 mmol/L Normal 0.5-2.2 [facility] Comment on above: Performed By: #### L [id number] ####[facility] ([facility])[address] [place] [address] PHOSPHORUSon 07-09-2024 Magnesium [Mass/Vol] 4.5 mg/dL Normal 2.5-5.0 [facility] Comment on above: Performed By: #### L [id number] ####[facility] ([facility])[address] [place] [address] PROTIME-INRon 07-09-2024 INR IN PPP BY COAGULATION ASSAY 1.10 Normal 0.90-1.10 [facility] Comment on above: Result Comment: ACCC P RECOMMENDED INR FOR WARFARIN THERAPY CONDITION INRPROPHYLAXIS OF VENOUS THROMBOSIS 2-3(HIGH-RISK SURGERY)TREATMENT OF VENOUS THROMBOSIS 2-3TREATMENT OF PULMONARY EMBOLISM 2-3PREVENTION OF SYSTEMIC EMBOLISM: 2-3 ACUTE MYOCARDIAL INFARCTION TISSUE HEART VALVES VALVULAR HEART DISEASE ATRIAL FIBRILLATION RECURRENT SYSTEMIC EMBOLISMMECHANICAL HEART VALVE 2.5-3.5 FROM: ORAL ANTICOAGULANTS. MECHANISM OF ACTION, CLINICAL EFFECTIVENESS, AND OPTIMAL THERAPEUTIC RANGE. CHEST 1995;108:231S-246S. Performed By: #### L [id number] ####[facility] ([facility])[address] [place] [address] PROTHROMBIN TIME (PT) IN PPP BY COAGULATION ASSAY 14.2 Seconds Normal 12.3-14.8 [facility] Comment on above: Performed By: #### L [id number] ####[facility] ([facility])[address] [place] [address] PTH, INTACTon 07-09-2024 PARATHYRIN INTACT (PG/ML) IN SER/PLAS 129 pg/mL High 12-88 [facility] Comment on above: Performed By: #### L [id number] ####[facility] ([facility])[address] [place] [address] T3, FREEon 07-09-2024 TRIIODOTHYRONINE (T3) FREE (PG/ML) IN SER/PLAS 3.1 pg/mL Normal 2.5-3.9 [facility] Comment on above: Performed By: #### L [id number] ####[facility] ([facility])[address] [place] [facility] [place] [address] T4, FREEon 07-09-2024 THYROXINE (T4) FREE (NG/DL) IN SER/PLAS 0.53 ng/dL Low 0.71-1.85 [facility] Comment on above: Performed By: #### L [id number] ####[facility] ([facility])[address] [place] [facility] [place] [address] TROPONIN Ion 07-09-2024 Troponin I.cardiac [Mass/Vol] 0.01 ng/mL Normal 0.00-0.04 [facility] Comment on above: Performed By: #### L [id number] ####[facility] ([facility])[address] [place] [facility] [place] [address] TSH3 REFLEX TO FT4on 024 THYROTROPIN (MIU/L) IN SER/PLAS BY DETECTION LIMIT <= 0.05 MIU/L 0.10 mIU/L Low 0.34-5.60 [facility] Comment on above: Performed By: #### L [id number] ####[facility] ([facility])[address] [place] [facility] [place] [address] URINALYSIS WITH REFLEX CULTU REon 07-09-2024 BILIRUBIN, TOTAL PRESENCE IN URINE Negative Normal Negative [facility] Comment on above: Order Comment: Micro scopics not performed on urines with negative chemical reactions unless requested on original order. Performed By: #### L [id number] ####[facility] ([facility])[address] [address] Clarity (U) Clear Normal Clear [facility] Comment on above: Order Comment: Micro scopics not performed on urines with negative chemical reactions unless requested on original order. Performed By: #### L [id number] ####[facility] ([facility])[address] [place] [address] Color (U) Yellow Normal Yellow [facility] Comment on above: Order Comment: Micro scopics not performed on urines with negative chemical reactions unless requested on original order. Performed By: #### L [id number] ####[facility] ([facility])[address] [place] [address] Glucose (U) [Mass/Vol] mg/dL Abnormal [facility] Comment on above: Order Comment: Micro scopics not performed on urines with negative chemical reactions unless requested on original order. Performed By: #### L [id number] ####[facility] ([facility])[address] [place] [address] HEMOGLOBIN PRESENCE IN URINE Negative Normal Negative [facility] Comment on above: Order Comment: Micro scopics not performed on urines with negative chemical reactions unless requested on original order. Performed By: #### L [id number] ####[facility] ([facility])[address] [place] [address] Ketones Ql (U) Negative Normal Negative [facility] Comment on above: Order Comment: Micro scopics not performed on urines with negative chemical reactions unless requested on original order. Performed By: #### L [id number] ####[facility] ([facility])[address] [place] [address] LEUKOCYTE ESTERASE PRESENCE IN URINE BY TEST STRIP Negative Normal Negative [facility] Comment on above: Order Comment: Micro scopics not performed on urines with negative chemical reactions unless requested on original order. Performed By: #### L [id number] ####[facility] ([facility])[address] [place] [address] NITRITE PRESENCE IN URINE Negative Normal Negative [facility] Comment on above: Order Comment: Micro scopics not performed on urines with negative chemical reactions unless requested on original order. Performed By: #### L [id number] ####[facility] ([facility] [place] [address] pH (U) 5.0 [pH] Normal 5.0-8.0 [facility] Comment on above: Order Comment: Micro scopics not performed on urines with negative chemical reactions unless requested on original order. Performed By: #### L [id number] ####[facility] ([facility])[address] [place] [address] Protein (U) [Mass/Vol] Negative Normal Negative Un [facility] Comment on above: Order Comment: Micro scopics not performed on urines with negative chemical reactions unless requested on original order. Performed By: #### L [id number] ####[facility] ([facility])[address] [place] [address] Specific gravity (U) [Rel density] 1.020 Normal 1.015-1.02 0 [facility] Comment on above: Order Comment: Micro scopics not performed on urines with negative chemical reactions unless requested on original order. Performed By: #### L [id number] ####[facility] ([facility] [place] [address] 36on 06-30-2024 36 Spoke with patient's and she will take him to the ED right now. Normal [facility] Telephoneon 06-30-2024 Telephone Normal [facility] CBC WITH AUTO DIFFERENTIALon 06-29-2024 Basophils (Bld) [#/Vol] 0.04 10*3/uL Normal 0.00-0.20 [facility] Comment on above: Performed By: #### L [id number] ####[facility] ([facility])[address] [place] [address] Basophils/100 WBC (Bld) 0.5 % Normal 0.0-1.0 [facility] Comment on above: Performed By: #### L [id number] ####[facility] ([facility])[address] [place] [address] Eosinophils (Bld) [#/Vol] 0.14 10*3/uL Normal 0.00-0.50 [facility] Comment on above: Performed By: #### L [id number] ####[facility] ([facility])[address] [place] [address] Eosinophils/100 WBC (Bld) 1.8 % Normal 0.0-6.0 [facility] Comment on above: Performed By: #### L [id number] ####[facility] ([facility])[address] [place] [address] Erythrocyte distribution width (RBC) [Ratio] 14.9 % Normal 11.5-15.0 [facility] Comment on above: Performed By: #### L [id number] ####[facility] ([facility])[address] [place] [address] ERYTHROCYTE MEAN CORPUSCULAR HEMOGLOBIN CONCENTRATION (G/DL) BY AUTOMATED 33.5 g/dL Normal 32.0-35.0 [facility] Comment on above: Performed By: #### L [id number] ####[facility] ([facility])[address] [place] [address] Hematocrit (Bld) [Volume fraction] 40.9 % Normal 39.0-55.0 [facility] Comment on above: Performed By: #### L [id number] ####[facility] ([facility])[address] [place] [address] Hemoglobin (Bld) [Mass/Vol] 13.7 g/dL Normal 13.0-17.0 [facility] Comment on above: Performed By: #### L [id number] ####[facility] ([facility])[address] [place] [address] Immature granulocytes (Bld) [#/Vol] 0.02 10*3/uL Normal 0.00-0.20 [facility] Comment on above: Performed By: #### L [id number] ####[facility] ([facility])[address] [place] [address] Immature granulocytes/100 WBC (Bld) 0.3 % Normal 0.0-1.0 [facility] Comment on above: Performed By: #### L [id number] ####[facility] (BE[facility])[address] [place] [address] Lymphocytes (Bld) [#/Vol] 2.27 10*3/uL Normal 1.20-4.00 [facility] Comment on above: Performed By: #### L [id number] ####[facility] ([facility])[address] [place] [address] Lymphocytes/100 WBC (Bld) 30.0 % Normal 20.0-45.0 [facility] Comment on above: Performed By: #### L [id number] ####[facility] ([facility]ER)[address] [place] [address] MCH (RBC) [Entitic mass] 30.0 pg Normal 27.0-33.0 [facility] Comment on above: Performed By: #### L [id number] ####[facility] ([facility])[address] [place] [address] MCV (RBC) [Entitic vol] 89.7 fL Normal 82.0-98.0 [facility] Comment on above: Performed By: #### L [id number] ####[facility] ([facility])[address] [place] [address] Monocytes (Bld) [#/Vol] 0.67 10*3/uL Normal 0.10-1.00 [facility] Comment on above: Performed By: #### L [id number] ####[facility] ([facility])[address] [place] [address] Monocytes/100 WBC (Bld) 8.9 % Normal 5.0-12.0 [facility] Comment on above: Performed By: #### L [id number] ####[facility] ([facility])[address] [place] [address] Neutrophils (Bld) [#/Vol] 4.43 10*3/uL Normal 1.60-7.60 [facility] Comment on above: Performed By: #### L [id number] ####[facility] ([facility])[address] [place] [address] Neutrophils/100 WBC (Bld) 58.5 % Normal 40.0-72.0 [facility] Comment on above: Performed By: #### L [id number] ####[facility] ([facility])[address] [place] [address] NRBC (PER 100 WBCS) BY AUTOMATED COUNT 0.0 % Normal 0 [facility] Comment on above: Performed By: #### L [id number] ####[facility] ([facility])[address] [place] [address] PLATELETS (10*3/UL) IN BLOOD AUTOMATED COUNT 291 10*3/uL Normal 150-400 [facility] Comment on above: Performed By: #### L [id number] ####[facility] ([facility])[address] [place] [address] RBC (Bld) [#/Vol] 4.56 10*6/uL Normal 4.20-5.70 [facility] Comment on above: Performed By: #### L [id number] ####[facility] ([facility])[address] [place] [address] WBC (Bld) [#/Vol] 7.57 10*3/uL Normal 4.00-10.60 [facility] Comment on above: Performed By: #### L [id number] ####[facility] ([facility])[address] [place] [address] COMPREHENSIVE METABOLIC PANE Sonido 06-29-2024 Albumin [Mass/Vol] 4.2 g/dL Normal 3.5-5.7 [facility] Comment on above: Performed By: #### L [id number] ####[facility] ([facility] [place] [address] ALP [Catalytic activity/Vol] 101 U/L Normal 34-104 [facility] Comment on above: Performed By: #### L [id number] ####[facility] ([facility])[address] [place] [address] ALT [Catalytic activity/Vol] 19 U/L Normal 7-52 [facility] Comment on above: Performed By: #### L [id number] ####[facility] ([facility])[address] [place] [address] Anion gap [Moles/Vol] 14 mmol/L Normal 7-20 [facility] Comment on above: Performed By: #### L [id number] ####[facility] ([facility])[address] [place] [address] AST [Catalytic activity/Vol] 18 U/L Normal 13-39 [facility] Comment on above: Performed By: #### L [id number] ####[facility] ([facility])[address] [place] [address] Bilirubin [Mass/Vol] 0.7 mg/dL Normal 0.3-1.0 [facility] Comment on above: Performed By: #### L [id number] ####[facility] ([facility])[address] [place] [address] Calcium [Mass/Vol] 10.2 mg/dL Normal 8.6-10.3 [facility] Comment on above: Performed By: #### L [id number] ####[facility] ([facility])[address] [place] [address] Chloride [Moles/Vol] 101 mmol/L Normal 98-107 [facility] Comment on above: Performed By: #### L [id number] ####[facility] ([facility] [place] [address] CO2 [Moles/Vol] 22 mmol/L Normal 21-31 [facility] Comment on above: Performed By: #### L [id number] ####[facility] ([facility])[address] [place] [address] Creatinine [Mass/Vol] 2.01 mg/dL High 0.70-1.30 [facility] Comment on above: Performed By: #### L [id number] ####[facility] ([facility])[address] [place] [address] GLOMERULAR FILTRATION RATE ML/MIN/1.73 SQ M.PREDICTED 35.9 mL/min/1.73m*2 Low >60.0 [facility] Comment on above: Result Comment: [facility]???s estimated glomerular filtration rate (eGFR) will no longer include consideration of race in its calculation. The National Kidney Foundation???s eGFR Task Force developed new recommendations for the estimation of the glomerular filtration rate in the [place] They recommend immediate implementation of the new equation refit without the race variable in all laboratories because the calculation does not include race. In addition to not including race in the calculation and reporting, it included diversity in its development, and has acceptable performance characteristics and potential consequences that do not disproportionately affect any one group of individuals. Performed By: #### L [id number] ####[facility] ([facility])[address] [place] [address] Glucose [Mass/Vol] 158 mg/dL High 70-100 [facility] Comment on above: Performed By: #### L [id number] ####[facility] ([facility])[address] [place] [address] Potassium [Moles/Vol] 4.2 mmol/L Normal 3.5-5.1 [facility] Comment on above: Performed By: #### L [id number] ####[facility] ([facility])[address] [place] [address] Protein [Mass/Vol] 8.1 g/dL Normal 6.0-8.3 [facility] Comment on above: Performed By: #### L [id number] ####[facility] ([facility])[address] [place] [address] Sodium [Moles/Vol] 133 mmol/L Low 136-145 [facility] Comment on above: Performed By: #### L [id number] ####[facility] ([facility])[address] [place] [address] Urea nitrogen [Mass/Vol] 34 mg/dL High 7-25 [facility] Comment on above: Performed By: #### L [id number] ####[facility] ([facility])[address] [place] [address] UREA NITROGEN/CREATININE (MASS RATIO) IN SER/PLAS 16.9 Normal [facility] Comment on above: Performed By: #### L [id number] ####[facility] ([facility])[address] [place] [address] Labon 06-29-2024 Lab Normal [facility] T3, FREEon 06-29-2024 TRIIODOTHYRONINE (T3) FREE (PG/ML) IN SER/PLAS 3.3 pg/mL Normal 2.5-3.9 [facility] Comment on above: Performed By: #### L [id number] ####[facility] ([facility])[address] [place] [address] T4, FREEon 06-29-2024 THYROXINE (T4) FREE (NG/DL) IN SER/PLAS 0.55 ng/dL Low 0.71-1.85 [facility] Comment on above: Performed By: #### L [id number] ####[facility] ([facility])[address] [place] [address] TSHon 06-29-2024 THYROTROPIN (MIU/L) IN SER/PLAS BY DETECTION LIMIT <= 0.05 MIU/L 0.19 mIU/L Low 0.34-5.60 [facility] Comment on above: Performed By: #### L [id number] ####[facility] ([facility])[address] [place] [address] CBC WITH AUTO DIFFERENTIALon 06-07-2024 Basophils (Bld) [#/Vol] 0.06 10*3/uL Normal 0.00-0.20 [facility] Comment on above: Performed By: #### L [id number] ####[facility] ([facility])[address] [place] [address] Basophils/100 WBC (Bld) 0.7 % Normal 0.0-1.0 [facility] Comment on above: Performed By: #### L [id number] ####[facility] ([facility])[address] [place] [address] Eosinophils (Bld) [#/Vol] 0.13 10*3/uL Normal 0.00-0.50 [facility] Comment on above: Performed By: #### L [id number] ####[facility] ([facility])[address] [place] [address] Eosinophils/100 WBC (Bld) 1.5 % Normal 0.0-6.0 [facility] Comment on above: Performed By: #### L [id number] ####[facility] ([facility])[address] [place] [address] Erythrocyte distribution width (RBC) [Ratio] 14.8 % Normal 11.5-15.0 [facility] Comment on above: Performed By: #### L [id number] ####[facility] ([facility])[address] [place] [address] ERYTHROCYTE MEAN CORPUSCULAR HEMOGLOBIN CONCENTRATION (G/DL) BY AUTOMATED 32.5 g/dL Normal 32.0-35.0 [facility] Comment on above: Performed By: #### L [id number] ####[facility] ([facility])[address] [place] [address] Hematocrit (Bld) [Volume fraction] 43.1 % Normal 39.0-55.0 [facility] Comment on above: Performed By: #### L [id number] ####[facility] ([facility] [place] [address] Hemoglobin (Bld) [Mass/Vol] 14.0 g/dL Normal 13.0-17.0 [facility] Comment on above: Performed By: #### L [id number] ####[facility] ([facility])[address] [place] [address] Immature granulocytes (Bld) [#/Vol] 0.03 10*3/uL Normal 0.00-0.20 [facility] Comment on above: Performed By: #### L [id number] ####[facility] ([facility])[address] [place] [address] Immature granulocytes/100 WBC (Bld) 0.3 % Normal 0.0-1.0 [facility] Comment on above: Performed By: #### L [id number] ####[facility] ([facility])[address] [place] [address] Lymphocytes (Bld) [#/Vol] 2.02 10*3/uL Normal 1.20-4.00 [facility] Comment on above: Performed By: #### L [id number] ####[facility] ([facility])[address] [place] [address] Lymphocytes/100 WBC (Bld) 23.2 % Normal 20.0-45.0 [facility] Comment on above: Performed By: #### L [id number] ####[facility] ([facility])[address] [place] [address] MCH (RBC) [Entitic mass] 29.9 pg Normal 27.0-33.0 [facility] Comment on above: Performed By: #### L [id number] ####[facility] ([facility])[address] [place] [address] MCV (RBC) [Entitic vol] 91.9 fL Normal 82.0-98.0 [facility] Comment on above: Performed By: #### L [id number] ####[facility] ([facility])[address] [place] [address] Monocytes (Bld) [#/Vol] 0.64 10*3/uL Normal 0.10-1.00 [facility] Comment on above: Performed By: #### L [id number] ####[facility] ([facility])[address] [place] [address] Monocytes/100 WBC (Bld) 7.4 % Normal 5.0-12.0 [facility] Comment on above: Performed By: #### L [id number] ####[facility] ([facility])[address] [place] [address] Neutrophils (Bld) [#/Vol] 5.81 10*3/uL Normal 1.60-7.60 [facility] Comment on above: Performed By: #### L [id number] ####[facility] ([facility])[address] [address] Neutrophils/100 WBC (Bld) 66.9 % Normal 40.0-72.0 [facility] Comment on above: Performed By: #### L [id number] ####[facility] ([facility])[address] [address] NRBC (PER 100 WBCS) BY AUTOMATED COUNT 0.0 % Normal 0 [facility] Comment on above: Performed By: #### L [id number] ####[facility] ([facility])[address] [address] PLATELETS (10*3/UL) IN BLOOD AUTOMATED COUNT 300 10*3/uL Normal 150-400 [facility] Comment on above: Performed By: #### L [id number] ####[facility] ([facility])[address] [place] [address] RBC (Bld) [#/Vol] 4.69 10*6/uL Normal 4.20-5.70 [facility] Comment on above: Performed By: #### L [id number] ####[facility] ([facility])[address] [address] WBC (Bld) [#/Vol] 8.69 10*3/uL Normal 4.00-10.60 [facility] Comment on above: Performed By: #### L [id number] ####[facility] ([facility])[address] [place] [address] COMPREHENSIVE METABOLIC PANE Sonido 06-07-2024 Albumin [Mass/Vol] 4.1 g/dL Normal 3.5-5.7 [facility] Comment on above: Performed By: #### L [id number] ####[facility] ([facility])[address] [place] [address] ALP [Catalytic activity/Vol] 108 U/L High 34-104 [facility] Comment on above: Performed By: #### L [id number] ####[facility] ([facility])[address] [place] [address] ALT [Catalytic activity/Vol] 13 U/L Normal 7-52 [facility] Comment on above: Performed By: #### L [id number] ####[facility] ([facility])[address] [place] [address] Anion gap [Moles/Vol] 13 mmol/L Normal 7-20 [facility] Comment on above: Performed By: #### L [id number] ####[facility] ([facility])[address] [place] [address] AST [Catalytic activity/Vol] 13 U/L Normal 13-39 [facility] Comment on above: Performed By: #### L [id number] ####[facility] ([facility])[address] [place] [address] Bilirubin [Mass/Vol] 0.6 mg/dL Normal 0.3-1.0 [facility] Comment on above: Performed By: #### L [id number] ####[facility] ([facility])[address] [place] [address] Calcium [Mass/Vol] 10.4 mg/dL High 8.6-10.3 [facility] Comment on above: Performed By: #### L [id number] ####[facility] ([facility])[address] [place] [address] Chloride [Moles/Vol] 102 mmol/L Normal 98-107 [facility] Comment on above: Performed By: #### L [id number] ####[facility] ([facility])[address] [place] [address] CO2 [Moles/Vol] 24 mmol/L Normal 21-31 [facility] Comment on above: Performed By: #### L [id number] ####[facility] ([facility])[address] [place] [address] Creatinine [Mass/Vol] 1.77 mg/dL High 0.70-1.30 [facility] Comment on above: Performed By: #### L [id number] ####[facility] ([facility])[address] [place] [address] GLOMERULAR FILTRATION RATE ML/MIN/1.73 SQ M.PREDICTED 41.8 mL/min/1.73m*2 Low >60.0 [facility] Comment on above: Result Comment: [facility]???s estimated glomerular filtration rate (eGFR) will no longer include consideration of race in its calculation. The National Kidney Foundation???s eGFR Task Force developed new recommendations for the estimation of the glomerular filtration rate in the [place] They recommend immediate implementation of the new equation refit without the race variable in all laboratories because the calculation does not include race. In addition to not including race in the calculation and reporting, it included diversity in its development, and has acceptable performance characteristics and potential consequences that do not disproportionately affect any one group of individuals. Performed By: #### L [id number] ####[facility] ([facility])[address] [place] [address] Glucose [Mass/Vol] 181 mg/dL High 70-100 [facility] Comment on above: Performed By: #### L [id number] ####[facility] ([facility])[address] [place] [address] Potassium [Moles/Vol] 4.6 mmol/L Normal 3.5-5.1 [facility] Comment on above: Performed By: #### L [id number] ####[facility] ([facility])[address] [place] [address] Protein [Mass/Vol] 7.8 g/dL Normal 6.0-8.3 [facility] Comment on above: Performed By: #### L [id number] ####[facility] ([facility])[address] [place] [address] Sodium [Moles/Vol] 134 mmol/L Low 136-145 [facility] Comment on above: Performed By: #### L [id number] ####[facility] ([facility])[address] [place] [address] Urea nitrogen [Mass/Vol] 31 mg/dL High 7-25 [facility] Comment on above: Performed By: #### L [id number] ####[facility] ([facility])[address] [place] [address] UREA NITROGEN/CREATININE (MASS RATIO) IN SER/PLAS 17.5 Normal [facility] Comment on above: Performed By: #### L [id number] ####[facility] ([facility])[address] [place] [address] Follow-Upon 06-07-2024 Follow-Up Normal [facility] Labon 06-07-2024 Lab Normal [facility] T3, FREEon 06-07-2024 TRIIODOTHYRONINE (T3) FREE (PG/ML) IN SER/PLAS 3.1 pg/mL Normal 2.5-3.9 [facility] Comment on above: Performed By: #### L [id number] ####[facility] ([facility])[address] [place] [address] T4, FREEon 06-07-2024 THYROXINE (T4) FREE (NG/DL) IN SER/PLAS 0.55 ng/dL Low 0.71-1.85 [facility] Comment on above: Performed By: #### L [id number] ####[facility] ([facility])[address] [place] [address] TSHon 06-07-2024 THYROTROPIN (MIU/L) IN SER/PLAS BY DETECTION LIMIT <= 0.05 MIU/L 0.25 mIU/L Low 0.34-5.60 [facility] Comment on above: Performed By: #### L [id number] ####[facility] ([facility])[address] [place] [address] MR LUMBAR SPINE WO CONTRASTo n 06-06-2024 MR LUMBAR SPINE WO CONTRAST Invalid Interpretation Code [facility] POCT GLUCOSE METER UNSOLICIT ED RESULTSon 06-05-2024 Glucose [Mass/Vol] 125 mg/dL High 70-105 [facility] Comment on above: Order Comment: Waive d Testing in the ED is performed under the ED CLIA certificate #[id number]. Result Comment: epit [id number] Performed By: #### L [id number] ####[facility] ([facility] [place] [address] Abstracton 05-24-2024 Abstract Normal [facility] Letter (Out)on 05-24-2024 Letter (Out) [facility] 29on 05-19-2024 29 Addended by: JEWELL MERINO on: 06/16/2024 12:06 PM Modules accepted: Orders Normal [facility] COMPREHENSIVE METABOLIC PANE Sonido 05-19-2024 Albumin [Mass/Vol] 3.9 g/dL Normal 3.5-5.7 [facility] Comment on above: Performed By: #### L [id number] ####[facility] ([facility])[address] [place] [address] ALP [Catalytic activity/Vol] 103 U/L Normal 34-104 [facility] Comment on above: Performed By: #### L [id number] ####[facility] ([facility])[address] [place] [address] ALT [Catalytic activity/Vol] 13 U/L Normal 7-52 [facility] Comment on above: Performed By: #### L [id number] ####[facility] ([facility])[address] [place] [address] Anion gap [Moles/Vol] 14 mmol/L Normal 7-20 [facility] Comment on above: Performed By: #### L [id number] ####[facility] ([facility])[address] [place] [address] AST [Catalytic activity/Vol] 11 U/L Low 13-39 [facility] Comment on above: Performed By: #### L [id number] ####[facility] ([facility])[address] [place] [address] Bilirubin [Mass/Vol] 0.4 mg/dL Normal 0.3-1.0 [facility] Comment on above: Performed By: #### L [id number] ####[facility] ([facility])[address] [place] [address] Calcium [Mass/Vol] 9.7 mg/dL Normal 8.6-10.3 [facility] Comment on above: Performed By: #### L [id number] ####[facility] ([facility])[address] [place] [address] Chloride [Moles/Vol] 102 mmol/L Normal 98-107 [facility] Comment on above: Performed By: #### L [id number] ####[facility] ([facility])[address] [place] [address] CO2 [Moles/Vol] 24 mmol/L Normal 21-31 [facility] Comment on above: Performed By: #### L [id number] ####[facility] ([facility])[address] [place] [address] Creatinine [Mass/Vol] 1.89 mg/dL High 0.70-1.30 [facility] Comment on above: Performed By: #### L [id number] ####[facility] ([facility])[address] [place] [address] GLOMERULAR FILTRATION RATE ML/MIN/1.73 SQ M.PREDICTED 38.7 mL/min/1.73m*2 Low >60.0 [facility] Comment on above: Result Comment: [facility]???s estimated glomerular filtration rate (eGFR) will no longer include consideration of race in its calculation. The National Kidney Foundation???s eGFR Task Force developed new recommendations for the estimation of the glomerular filtration rate in the [place] They recommend immediate implementation of the new equation refit without the race variable in all laboratories because the calculation does not include race. In addition to not including race in the calculation and reporting, it included diversity in its development, and has acceptable performance characteristics and potential consequences that do not disproportionately affect any one group of individuals. Performed By: #### L [id number] ####[facility] ([facility])[address] [place] [address] Glucose [Mass/Vol] 244 mg/dL High 70-100 [facility] Comment on above: Performed By: #### L [id number] ####[facility] ([facility])[address] [place] [address] Potassium [Moles/Vol] 4.4 mmol/L Normal 3.5-5.1 [facility] Comment on above: Performed By: #### L [id number] ####[facility] ([facility])[address] [place] [address] Protein [Mass/Vol] 7.4 g/dL Normal 6.0-8.3 [facility] Comment on above: Performed By: #### L [id number] ####[facility] ([facility])[address] [place] [address] Sodium [Moles/Vol] 136 mmol/L Normal 136-145 [facility] Comment on above: Performed By: #### L [id number] ####[facility] ([facility])[address] [place] [address] Urea nitrogen [Mass/Vol] 31 mg/dL High 7-25 [facility] Comment on above: Performed By: #### L [id number] ####[facility] ([facility])[address] [place] [address] UREA NITROGEN/CREATININE (MASS RATIO) IN SER/PLAS 16.4 Normal [facility] Comment on above: Performed By: #### L [id number] ####[facility] ([facility])[address] [place] [address] IMMUNOFIXATION ELECTROPHORES Mohan 05-19-2024 IMMUNOFIXATION ELECTROPHORESIS 1 See attached report. Normal [facility] Comment on above: Performed By: #### L [id number] ####[facility] ([facility])[address] [place] [address] Magnesium [Mass/Vol] 1440 mg/dL Normal 591-1540 [facility] Comment on above: Performed By: #### L [id number] ####[facility] ([facility])[address] [place] [address] Magnesium [Mass/Vol] 363 mg/dL Normal 60-413 [facility] Comment on above: Performed By: #### L [id number] ####[facility] ([facility])[address] [place] [address] Magnesium [Mass/Vol] 79.2 mg/dL Normal 54-285 [facility] Comment on above: Performed By: #### L [id number] ####[facility] ([facility])[address] [place] [address] KAPPA / LAMBDA LIGHT CHAINS, FREEon 05-19-2024 IMMUNOGLOBULIN LIGHT CHAINS KAPPA/LAMBDA (MASS RATIO) IN SERUM 1.21 Normal 0.22-1.74 [facility] Comment on above: Result Comment: Test Performed by [employer] [address] [place], [place] [id number] - Released 06/16/2024 19:34 Performed By: #### L [id number] ####[facility] [id number] [place] [id number] IMMUNOGLOBULIN LIGHT CHAINS.KAPPA (MG/DL) IN SERUM 75.0 mg/L High <20.8 [facility] Comment on above: Result Comment: Perf ormed using Diazyme reagent on [employer]. Results obtained with different assay methods cannot be used interchangeably. Performed By: #### L [id number] ####[facility] [id number] [place] [address] IMMUNOGLOBULIN LIGHT CHAINS.LAMBDA (MG/DL) IN SERUM 61.8 mg/L High 4.2-27.7 [facility] Comment on above: Result Comment: Perf ormed using Diazyme reagent on [employer]. Results obtained with different assay methods cannot be used interchangeably. Performed By: #### L [id number] ####[facility] [id number] [place] [address] Labon 05-19-2024 Lab Normal [facility] MAGNESIUMon 05-19-2024 Magnesium [Mass/Vol] 1.8 mg/dL Low 1.9-2.7 [facility] Comment on above: Performed By: #### L [id number] ####[facility] ([facility])[address] [place] [address] Orders Onlyon 05-19-2024 Orders Only [facility] PHOSPHORUSon 05-19-2024 Magnesium [Mass/Vol] 3.1 mg/dL Normal 2.5-5.0 [facility] Comment on above: Performed By: #### L [id number] ####[facility] ([facility])[address] [place] [address] PROTEIN ELECTROPHORESIS, SER UMon 05-19-2024 Protein [Mass/Vol] 7.3 g/dL Normal 6.0-8.3 [facility] Comment on above: Performed By: #### L [id number] ####[facility] ([facility])[address] [place] [address] PROTEIN FRACTION (INTERPRETATION) IN SER/PLAS BY ELECTROPHORESIS Please see attached report. Normal [facility] Comment on above: Performed By: #### L [id number] ####[facility] ([facility])[address] [place] [address] PROTEIN ELECTROPHORESIS, URI NE, 24 HOURon 05-19-2024 Protein (U) [Mass/Vol] 13.6 mg/dL [facility]: Result Comment: Ther e are no established reference values for random urine specimens. Performed By: #### L [id number] ####[facility] ([facility])[address] [place] [address] UPEP INTERPRETATION Please see attached report. [facility] Comment on above: Performed By: #### L [id number] ####[facility] ([facility])[address] [place] [address] PTH, INTACTon 05-19-2024 PARATHYRIN INTACT (PG/ML) IN SER/PLAS 234 pg/mL High 12-88 [facility] Comment on above: Performed By: #### L [id number] ####[facility] ([facility])[address] [place] [address] PTH-RELATED PEPTIDEon 2023 PTH-RELATED PROTEIN PLASMA 4.1 pmol/L High 0.0-2.3 [facility] Comment on above: Result Comment: INTE RPRETIVE INFORMATION: Parathyroid Hormone-Related PeptideThis test was developed and its performance characteristicsdetermined by [facility]. It has not been cleared orapproved by the [place] Food and Drug Administration. This test wasperformed in a CLIA certified laboratory and is intended forclinical purposes.Performed By: [facility] [place] [id number] Director: Devon Romeo MD, PhDCLIA Number: [id number] Performed By: #### L [id number] ####[facility] ([facility])[address] [place] [address] T4, FREEon 05-19-2024 THYROXINE (T4) FREE (NG/DL) IN SER/PLAS 0.68 ng/dL Low 0.71-1.85 [facility] Comment on above: Performed By: #### L [id number] ####[facility] ([facility])[address] [place] [address] URIC ACIDon 05-19-2024 Magnesium [Mass/Vol] 6.2 mg/dL Normal 4.4-7.6 [facility] Comment on above: Performed By: #### L [id number] ####[facility] ([facility])[address] [place] [address] VITAMIN D 1,25 DIHYDROXYon 0 05-19-2024 VITAMIN D 1,25-DIHYDROXY 28.3 pg/mL Normal 19.9-79.3 [facility] Comment on above: Result Comment: INTE RPRETIVE INFORMATION: Vitamin D, 1,25-DihydroxyThis test is primarily indicated during patient evaluation forhypercalcemia and renal failure. A normal result does not rule outVitamin D deficiency. The recommended test for diagnosing VitaminD deficiency is Vitamin D 25-hydroxy.Performed By: [facility] [place] [id number] Director: Devon Romeo MD, PhDCLIA Number: [id number] Performed By: #### L [id number] ####[facility] ([facility] [place] [address] VITAMIN D 25 HYDROXYon 05-19 CALCIDIOL (25 [place] VITAMIN D3) (NG/ML) IN SER/PLAS 25.0 ng/mL Low 30.0-80.0 [facility] Comment on above: Result Comment: >80. 0 Toxicity possible Performed By: #### L [id number] ####[facility] ([facility])[address] [place] [address] CBC WITH AUTO DIFFERENTIALon 05-18-2024 Basophils (Bld) [#/Vol] 0.04 10*3/uL Normal 0.00-0.20 [facility] Comment on above: Performed By: #### L [id number] ####[facility] ([facility])[address] [place] [address] Basophils/100 WBC (Bld) 0.5 % Normal 0.0-1.0 [facility] Comment on above: Performed By: #### L [id number] ####[facility] ([facility])[address] [place] [address] Eosinophils (Bld) [#/Vol] 0.11 10*3/uL Normal 0.00-0.50 [facility] Comment on above: Performed By: #### L [id number] ####[facility] ([facility])[address] [place] [address] Eosinophils/100 WBC (Bld) 1.5 % Normal 0.0-6.0 [facility] Comment on above: Performed By: #### L [id number] ####[facility] ([facility])[address] [place] [address] Erythrocyte distribution width (RBC) [Ratio] 14.5 % Normal 11.5-15.0 [facility] Comment on above: Performed By: #### L [id number] ####[facility] ([facility])[address] [place] [address] ERYTHROCYTE MEAN CORPUSCULAR HEMOGLOBIN CONCENTRATION (G/DL) BY AUTOMATED 32.3 g/dL Normal 32.0-35.0 [facility] Comment on above: Performed By: #### L [id number] ####[facility] ([facility] [place] [address] Hematocrit (Bld) [Volume fraction] 44.3 % Normal 39.0-55.0 [facility] Comment on above: Performed By: #### L [id number] ####[facility] ([facility] [place] [address] Hemoglobin (Bld) [Mass/Vol] 14.3 g/dL Normal 13.0-17.0 [facility] Comment on above: Performed By: #### L [id number] ####[facility] ([facility])[address] [place] [address] Immature granulocytes (Bld) [#/Vol] 0.02 10*3/uL Normal 0.00-0.20 [facility] Comment on above: Performed By: #### L [id number] ####[facility] ([facility])[address] [place] [address] Immature granulocytes/100 WBC (Bld) 0.3 % Normal 0.0-1.0 [facility] Comment on above: Performed By: #### L [id number] ####[facility] ([facility])[address] [place] [address] Lymphocytes (Bld) [#/Vol] 1.70 10*3/uL Normal 1.20-4.00 [facility] Comment on above: Performed By: #### L [id number] ####[facility] ([facility])[address] [place] [address] Lymphocytes/100 WBC (Bld) 22.7 % Normal 20.0-45.0 [facility] Comment on above: Performed By: #### L [id number] ####[facility] ([facility])[address] [place] [address] MCH (RBC) [Entitic mass] 30.0 pg Normal 27.0-33.0 [facility] Comment on above: Performed By: #### L [id number] ####[facility] ([facility] [place] [address] MCV (RBC) [Entitic vol] 93.1 fL Normal 82.0-98.0 [facility] Comment on above: Performed By: #### L [id number] ####[facility] ([facility])[address] [place] [address] Monocytes (Bld) [#/Vol] 0.65 10*3/uL Normal 0.10-1.00 [facility] Comment on above: Performed By: #### L [id number] ####[facility] ([facility])[address] [place] [address] Monocytes/100 WBC (Bld) 8.7 % Normal 5.0-12.0 [facility] Comment on above: Performed By: #### L [id number] ####[facility] ([facility])[address] [place] [address] Neutrophils (Bld) [#/Vol] 4.97 10*3/uL Normal 1.60-7.60 [facility] Comment on above: Performed By: #### L [id number] ####[facility] ([facility])[address] [place] [address] Neutrophils/100 WBC (Bld) 66.3 % Normal 40.0-72.0 [facility] Comment on above: Performed By: #### L [id number] ####[facility] ([facility])[address] [place] [address] NRBC (PER 100 WBCS) BY AUTOMATED COUNT 0.0 % Normal 0 [facility] Comment on above: Performed By: #### L [id number] ####[facility] ([facility])[address] [place] [address] PLATELETS (10*3/UL) IN BLOOD AUTOMATED COUNT 295 10*3/uL Normal 150-400 [facility] Comment on above: Performed By: #### L [id number] ####[facility] ([facility])[address] [place] [address] RBC (Bld) [#/Vol] 4.76 10*6/uL Normal 4.20-5.70 [facility] Comment on above: Performed By: #### L [id number] ####[facility] ([facility])[address] [place] [address] WBC (Bld) [#/Vol] 7.49 10*3/uL Normal 4.00-10.60 [facility] Comment on above: Performed By: #### L [id number] ####[facility] ([facility])[address] [place] [address] COMPREHENSIVE METABOLIC PANE [facility] 05-18-2024 Albumin [Mass/Vol] 4.2 g/dL Normal 3.5-5.7 [facility] Comment on above: Performed By: #### L [id number] ####[facility] ([facility])[address] [place] [address] ALP [Catalytic activity/Vol] 116 U/L High 34-104 [facility] Comment on above: Performed By: #### L [id number] ####[facility] ([facility])[address] [place] [address] ALT [Catalytic activity/Vol] 15 U/L Normal 7-52 [facility] Comment on above: Performed By: #### L [id number] ####[facility] ([facility])[address] [place] [address] Anion gap [Moles/Vol] 16 mmol/L Normal 7-20 [facility] Comment on above: Performed By: #### L [id number] ####[facility] ([facility])[address] [place] [address] AST [Catalytic activity/Vol] 16 U/L Normal 13-39 [facility] Comment on above: Performed By: #### L [id number] ####[facility] ([facility])[address] [place] [address] Bilirubin [Mass/Vol] 0.7 mg/dL Normal 0.3-1.0 [facility] Comment on above: Performed By: #### L [id number] ####[facility] ([facility])[address] [place] [address] Calcium [Mass/Vol] 10.5 mg/dL High 8.6-10.3 [facility] Comment on above: Performed By: #### L [id number] ####[facility] ([facility])[address] [place] [address] Chloride [Moles/Vol] 102 mmol/L Normal 98-107 [facility] Comment on above: Performed By: #### L [id number] ####[facility] ([facility])[address] [place] [address] CO2 [Moles/Vol] 21 mmol/L Normal 21-31 [facility] Comment on above: Performed By: #### L [id number] ####[facility] ([facility])[address] [place] [address] Creatinine [Mass/Vol] 1.87 mg/dL High 0.70-1.30 [facility] Comment on above: Performed By: #### L [id number] ####[facility] ([facility])[address] [place] [address] GLOMERULAR FILTRATION RATE ML/MIN/1.73 SQ M.PREDICTED 39.2 mL/min/1.73m*2 Low >60.0 [facility] Comment on above: Result Comment: [facility]???s estimated glomerular filtration rate (eGFR) will no longer include consideration of race in its calculation. The National Kidney Foundation???s eGFR Task Force developed new recommendations for the estimation of the glomerular filtration rate in the [place] They recommend immediate implementation of the new equation refit without the race variable in all laboratories because the calculation does not include race. In addition to not including race in the calculation and reporting, it included diversity in its development, and has acceptable performance characteristics and potential consequences that do not disproportionately affect any one group of individuals. Performed By: #### L [id number] ####[facility] ([facility])[address] [place] [address] Glucose [Mass/Vol] 175 mg/dL High 70-100 [facility] Comment on above: Performed By: #### L [id number] ####[facility] ([facility])[address] [place] [address] Potassium [Moles/Vol] 4.8 mmol/L Normal 3.5-5.1 [facility] Comment on above: Performed By: #### L [id number] ####[facility] ([facility])[address] [place] [address] Protein [Mass/Vol] 8.0 g/dL Normal 6.0-8.3 [facility] Comment on above: Performed By: #### L [id number] ####[facility] ([facility])[address] [place] [address] Sodium [Moles/Vol] 134 mmol/L Low 136-145 [facility] Comment on above: Performed By: #### L [id number] ####[facility] ([facility])[address] [place] [address] Urea nitrogen [Mass/Vol] 32 mg/dL High 7-25 [facility] Comment on above: Performed By: #### L [id number] ####[facility] ([facility])[address] [place] [address] UREA NITROGEN/CREATININE (MASS RATIO) IN SER/PLAS 17.1 Normal [facility] Comment on above: Performed By: #### L [id number] ####[facility] ([facility])[address] [place] [address] CREATININE, URINE, RANDOMon 05-18-2024 Creatinine (U) [Mass/Vol] 87.0 mg/dL Normal 26-299 [facility] Comment on above: Performed By: #### L [id number] ####[facility] ([facility])[address] [place] [address] Labon 05-18-2024 Lab Normal [facility] PROTEIN, URINE, RANDOMon Protein (U) [Mass/Vol] 198.3 mg/dL Normal [facility] Comment on above: Result Comment: Ther e are no established reference values for random urine specimens. Performed By: #### L [id number] ####[facility] ([facility])[address] [place] [address] T3, FREEon 05-18-2024 TRIIODOTHYRONINE (T3) FREE (PG/ML) IN SER/PLAS 3.0 pg/mL Normal 2.5-3.9 [facility] Comment on above: Performed By: #### L [id number] ####[facility] ([facility])[address] [place] [address] TSHon 05-18-2024 THYROTROPIN (MIU/L) IN SER/PLAS BY DETECTION LIMIT <= 0.05 MIU/L 0.49 mIU/L Normal 0.34-5.60 [facility] Comment on above: Performed By: #### L [id number] ####[facility] ([facility])[address] [place] [address] 36on 05-11-2024 36 Scheduled [facility] 36on 05-09-2024 36 [phone] [facility] It is scheduled 06/06 thank you [facility] Follow-Upon 04-28-2024 Follow-Up [facility] Infusionon 04-28-2024 Infusion Normal [facility] ANAon 04-27-2024 JOHNNY PATTERN Nucleolar [facility] Comment on above: Performed By: #### L [id number] ####[facility] ([facility])[address] [place] [address] JOHNNY TITER 1:40 Normal <=1:40 [facility] Comment on above: Result Comment: Test performed using HOLLI IFA JOHNNY Hep-2 Test, a pre-standardized assay designed for the qualitative and semi-quantitative detection of antinuclear antibodies. Performed By: #### L [id number] ####[facility] ([facility])[address] [place] [address] C3 COMPLEMENTon 04-27-2024 Magnesium [Mass/Vol] 130.00 mg/dL Normal 79.00-1 52. 00 [facility] Comment on above: Performed By: #### L [id number] ####[facility] ([facility])[address] [place] [address] C4 COMPLEMENTon 04-27-2024 Magnesium [Mass/Vol] 53.3 mg/dL High 16-38 [facility] Comment on above: Performed By: #### L [id number] ####[facility] ([facility])[address] [place] [address] CBC WITH AUTO DIFFERENTIALon 04-27-2024 Basophils (Bld) [#/Vol] 0.04 10*3/uL Normal 0.00-0.20 [facility] Comment on above: Performed By: #### L [id number] ####[facility] ([facility])[address] [place] [address] Basophils/100 WBC (Bld) 0.6 % Normal 0.0-1.0 [facility] Comment on above: Performed By: #### L [id number] ####[facility] ([facility])[address] [place] [address] Eosinophils (Bld) [#/Vol] 0.10 10*3/uL Normal 0.00-0.50 [facility] Comment on above: Performed By: #### L [id number] ####[facility] ([facility])[address] [place] [address] Eosinophils/100 WBC (Bld) 1.4 % Normal 0.0-6.0 [facility] Comment on above: Performed By: #### L [id number] ####[facility] ([facility])[address] [place] [address] Erythrocyte distribution width (RBC) [Ratio] 14.2 % Normal 11.5-15.0 [facility] Comment on above: Performed By: #### L [id number] ####[facility] ([facility])[address] [place] [address] ERYTHROCYTE MEAN CORPUSCULAR HEMOGLOBIN CONCENTRATION (G/DL) BY AUTOMATED 32.9 g/dL Normal 32.0-35.0 [facility] Comment on above: Performed By: #### L [id number] ####[facility] ([facility])[address] [place] [address] Hematocrit (Bld) [Volume fraction] 42.9 % Normal 39.0-55.0 [facility] Comment on above: Performed By: #### L [id number] ####[facility] ([facility])[address] [place] [address] Hemoglobin (Bld) [Mass/Vol] 14.1 g/dL Normal 13.0-17.0 [facility] Comment on above: Performed By: #### L [id number] ####[facility] ([facility])[address] [place] [address] Immature granulocytes (Bld) [#/Vol] 0.02 10*3/uL Normal 0.00-0.20 [facility] Comment on above: Performed By: #### L [id number] ####[facility] ([facility])[address] [place] [address] Immature granulocytes/100 WBC (Bld) 0.3 % Normal 0.0-1.0 [facility] Comment on above: Performed By: #### L [id number] ####[facility] ([facility])[address] [place] [address] Lymphocytes (Bld) [#/Vol] 1.89 10*3/uL Normal 1.20-4.00 [facility] Comment on above: Performed By: #### L [id number] ####[facility] ([facility])[address] [place] [address] Lymphocytes/100 WBC (Bld) 26.0 % Normal 20.0-45.0 [facility] Comment on above: Performed By: #### L [id number] ####[facility] ([facility])[address] [place] [address] MCH (RBC) [Entitic mass] 29.9 pg Normal 27.0-33.0 [facility] Comment on above: Performed By: #### L [id number] ####[facility] ([facility] [place] [address] MCV (RBC) [Entitic vol] 91.1 fL Normal 82.0-98.0 [facility] Comment on above: Performed By: #### L [id number] ####[facility] ([facility])[address] [place] [address] Monocytes (Bld) [#/Vol] 0.68 10*3/uL Normal 0.10-1.00 [facility] Comment on above: Performed By: #### L [id number] ####[facility] ([facility])[address] [place], [place] [address] Monocytes/100 WBC (Bld) 9.4 % Normal 5.0-12.0 [facility] Comment on above: Performed By: #### L [id number] ####[facility] ([facility])[address] [place] [address] Neutrophils (Bld) [#/Vol] 4.54 10*3/uL Normal 1.60-7.60 [facility] Comment on above: Performed By: #### L [id number] ####[facility] ([facility])[address] [place] [address] Neutrophils/100 WBC (Bld) 62.3 % Normal 40.0-72.0 [facility] Comment on above: Performed By: #### L [id number] ####[facility] ([facility])[address] [place], [place] [address] NRBC (PER 100 WBCS) BY AUTOMATED COUNT 0.0 % Normal 0 [facility] Comment on above: Performed By: #### L [id number] ####[facility] ([facility])[address] [place] [address] PLATELETS (10*3/UL) IN BLOOD AUTOMATED COUNT 289 10*3/uL Normal 150-400 [facility] Comment on above: Performed By: #### L [id number] ####[facility] ([facility])[address] [place] [address] RBC (Bld) [#/Vol] 4.71 10*6/uL Normal 4.20-5.70 [facility] Comment on above: Performed By: #### L [id number] ####[facility] ([facility])[address] [place] [address] WBC (Bld) [#/Vol] 7.27 10*3/uL Normal 4.00-10.60 [facility] Comment on above: Performed By: #### L [id number] ####[facility] ([facility])[address] [place] [address] COMPREHENSIVE METABOLIC PANE [facility] 04-27-2024 Albumin [Mass/Vol] 3.9 g/dL Normal 3.5-5.7 [facility] Comment on above: Performed By: #### L [id number] ####[facility] ([facility] [place] [address] ALP [Catalytic activity/Vol] 118 U/L High 34-104 [facility] Comment on above: Performed By: #### L [id number] ####[facility] ([facility] [place] [address] ALT [Catalytic activity/Vol] 16 U/L Normal 7-52 [facility] Comment on above: Performed By: #### L [id number] ####[facility] ([facility])[address] [place] [address] Anion gap [Moles/Vol] 13 mmol/L Normal 7-20 [facility] Comment on above: Performed By: #### L [id number] ####[facility] [facility])[address] [place] [address] AST [Catalytic activity/Vol] 16 U/L Normal 13-39 [facility] Comment on above: Performed By: #### L [id number] ####[facility] (BEAKER)[address] [place] [address] Bilirubin [Mass/Vol] 0.5 mg/dL Normal 0.3-1.0 [facility] Comment on above: Performed By: #### L [id number] ####[facility] (BEAKER)[address] [place] [address] Calcium [Mass/Vol] 10.2 mg/dL Normal 8.6-10.3 [facility] Comment on above: Performed By: #### L [id number] ####[facility] (BEAKER)[address] [place] [address] Chloride [Moles/Vol] 104 mmol/L Normal 98-107 [facility] Comment on above: Performed By: #### L [id number] ####[facility] (BEAKER)[address] [place] [address] CO2 [Moles/Vol] 25 mmol/L Normal 21-31 [facility] Comment on above: Performed By: #### L [id number] ####[facility] (BEAKER)[address] [place] [address] Creatinine [Mass/Vol] 1.87 mg/dL High 0.70-1.30 [facility] Comment on above: Performed By: #### L [id number] ####[facility] (BEAKER)[address] [place] [address] GLOMERULAR FILTRATION RATE ML/MIN/1.73 SQ M.PREDICTED 39.2 mL/min/1.73m*2 Low >60.0 [facility] Comment on above: Result Comment: [facility]???s estimated glomerular filtration rate (eGFR) will no longer include consideration of race in its calculation. The National Kidney Foundation???s eGFR Task Force developed new recommendations for the estimation of the glomerular filtration rate in the [place] They recommend immediate implementation of the new equation refit without the race variable in all laboratories because the calculation does not include race. In addition to not including race in the calculation and reporting, it included diversity in its development, and has acceptable performance characteristics and potential consequences that do not disproportionately affect any one group of individuals. Performed By: #### L [id number] ####[facility] ([facility])[address] [place] [address] Glucose [Mass/Vol] 143 mg/dL High 70-100 [facility] Comment on above: Performed By: #### L [id number] ####[facility] ([facility])[address] [place] [address] Potassium [Moles/Vol] 4.8 mmol/L Normal 3.5-5.1 [facility] Comment on above: Performed By: #### L [id number] ####[facility] ([facility])[address] [place] [address] Protein [Mass/Vol] 7.7 g/dL Normal 6.0-8.3 [facility] Comment on above: Performed By: #### L [id number] ####[facility] ([facility])[address] [place] [address] Sodium [Moles/Vol] 137 mmol/L Normal 136-145 [facility] Comment on above: Performed By: #### L [id number] ####[facility] ([facility])[address] [place] [address] Urea nitrogen [Mass/Vol] 27 mg/dL High 7-25 [facility] Comment on above: Performed By: #### L [id number] ####[facility] ([facility])[address] [place] [address] UREA NITROGEN/CREATININE (MASS RATIO) IN SER/PLAS 14.4 [facility] Comment on above: Performed By: #### L [id number] ####[facility] ([facility])[address] [place] [address] Labon 04-27-2024 Lab Normal [facility] MAGNESIUMon 04-27-2024 Magnesium [Mass/Vol] 1.9 mg/dL Normal 1.9-2.7 [facility] Comment on above: Performed By: #### L [id number] ####[facility] ([facility] [place] [address] PHOSPHORUSon 04-27-2024 Magnesium [Mass/Vol] 3.1 mg/dL Normal 2.5-5.0 [facility] Comment on above: Performed By: #### L [id number] ####[facility] ([facility])[address] [place] [address] T3, FREEon 04-27-2024 TRIIODOTHYRONINE (T3) FREE (PG/ML) IN SER/PLAS 2.8 pg/mL Normal 2.5-3.9 [facility] Comment on above: Performed By: #### L [id number] ####[facility] ([facility])[address] [place] [address] T4, FREEon 04-27-2024 THYROXINE (T4) FREE (NG/DL) IN SER/PLAS 0.73 ng/dL Normal 0.71-1.85 [facility] Comment on above: Performed By: #### L [id number] ####[facility] ([facility])[address] [place] [address] TSHon 04-27-2024 THYROTROPIN (MIU/L) IN SER/PLAS BY DETECTION LIMIT <= 0.05 MIU/L 0.75 mIU/L Normal 0.34-5.60 [facility] Comment on above: Performed By: #### L [id number] ####[facility] ([facility] [place] [address] CBC WITH AUTO DIFFERENTIALon 04-04-2024 Basophils (Bld) [#/Vol] 0.05 10*3/uL Normal 0.00-0.20 [facility] Comment on above: Performed By: #### L [id number] ####[facility] ([facility] [place] [address] Basophils/100 WBC (Bld) 0.7 % Normal 0.0-1.0 [facility] Comment on above: Performed By: #### L [id number] ####[facility] (BEAKER)[address] [place] [address] Eosinophils (Bld) [#/Vol] 0.14 10*3/uL Normal 0.00-0.50 [facility] Comment on above: Performed By: #### L [id number] ####[facility] (BEAKER)[address] [place] [address] Eosinophils/100 WBC (Bld) 2.0 % Normal 0.0-6.0 [facility] Comment on above: Performed By: #### L [id number] ####[facility] (BEAKER)[address] [place] [address] Erythrocyte distribution width (RBC) [Ratio] 14.3 % Normal 11.5-15.0 [facility] Comment on above: Performed By: #### L [id number] ####[facility] ([facility] [place] [address] ERYTHROCYTE MEAN CORPUSCULAR HEMOGLOBIN CONCENTRATION (G/DL) BY AUTOMATED 33.4 g/dL Normal 32.0-35.0 [facility] Comment on above: Performed By: #### L [id number] ####[facility] ([facility])[address] [place] [address] Hematocrit (Bld) [Volume fraction] 40.7 % Normal 39.0-55.0 [facility] Comment on above: Performed By: #### L [id number] ####[facility] (BEAKER)[address] [place] [address] Hemoglobin (Bld) [Mass/Vol] 13.6 g/dL Normal 13.0-17.0 [facility] Comment on above: Performed By: #### L [id number] ####[facility] (BEAKER)[address] [place] [address] Immature granulocytes (Bld) [#/Vol] 0.02 10*3/uL Normal 0.00-0.20 [facility] Comment on above: Performed By: #### L [id number] ####[facility] (BEAKER)[address] [place] [address] Immature granulocytes/100 WBC (Bld) 0.3 % Normal 0.0-1.0 [facility] Comment on above: Performed By: #### L [id number] ####[facility] (BEAKER)[address] [place] [address] Lymphocytes (Bld) [#/Vol] 1.70 10*3/uL Normal 1.20-4.00 [facility] Comment on above: Performed By: #### L [id number] ####[facility] (BEAKER)[address] [place] [address] Lymphocytes/100 WBC (Bld) 24.0 % Normal 20.0-45.0 [facility] Comment on above: Performed By: #### L [id number] ####[facility] (BEAKER)[address] [place] [address] MCH (RBC) [Entitic mass] 29.6 pg Normal 27.0-33.0 [facility] Comment on above: Performed By: #### L [id number] ####[facility] (BEAKER)[address] [place] [address] MCV (RBC) [Entitic vol] 88.7 fL Normal 82.0-98.0 [facility] Comment on above: Performed By: #### L [id number] ####[facility] (BEAKER)[address] [place] [address] Monocytes (Bld) [#/Vol] 0.55 10*3/uL Normal 0.10-1.00 [facility] Comment on above: Performed By: #### L [id number] ####[facility] (BEAKER)[address] [place] [address] Monocytes/100 WBC (Bld) 7.8 % Normal 5.0-12.0 [facility] Comment on above: Performed By: #### L [id number] ####[facility] (BEAKER)[address] [place] [address] Neutrophils (Bld) [#/Vol] 4.63 10*3/uL Normal 1.60-7.60 [facility] Comment on above: Performed By: #### L [id number] ####[facility] ([facility])[address] [place] [address] Neutrophils/100 WBC (Bld) 65.2 % Normal 40.0-72.0 [facility] Comment on above: Performed By: #### L [id number] ####[facility] ([facility])[address] [place] [address] NRBC (PER 100 WBCS) BY AUTOMATED COUNT 0.0 % Normal 0 [facility] Comment on above: Performed By: #### L [id number] ####[facility] ([facility])[address] [place] [address] PLATELETS (10*3/UL) IN BLOOD AUTOMATED COUNT 320 10*3/uL Normal 150-400 [facility] Comment on above: Performed By: #### L [id number] ####[facility] ([facility])[address] [place] [address] RBC (Bld) [#/Vol] 4.59 10*6/uL Normal 4.20-5.70 [facility] Comment on above: Performed By: #### L [id number] ####[facility] ([facility])[address] [place] [address] WBC (Bld) [#/Vol] 7.09 10*3/uL Normal 4.00-10.60 [facility] Comment on above: Performed By: #### L [id number] ####[facility] ([facility] [place] [address] COMPREHENSIVE METABOLIC PANE Sonido 04-04-2024 Albumin [Mass/Vol] 4.1 g/dL Normal 3.5-5.7 [facility] Comment on above: Performed By: #### L [id number] ####[facility] ([facility] [place] [address] ALP [Catalytic activity/Vol] 104 U/L Normal 34-104 [facility] Comment on above: Performed By: #### L [id number] ####[facility] (BEAKER)[address] [place] [address] ALT [Catalytic activity/Vol] 13 U/L Normal 7-52 [facility] Comment on above: Performed By: #### L [id number] ####[facility] ([facility] [place] [address] Anion gap [Moles/Vol] 14 mmol/L Normal 7-20 [facility] Comment on above: Performed By: #### L [id number] ####[facility] ([facility])[address] [place] [address] AST [Catalytic activity/Vol] 16 U/L Normal 13-39 [facility] Comment on above: Performed By: #### L [id number] ####[facility] ([facility])[address] [place] [address] Bilirubin [Mass/Vol] 0.7 mg/dL Normal 0.3-1.0 [facility] Comment on above: Performed By: #### L [id number] ####[facility] ([facility])[address] [place] [address] Calcium [Mass/Vol] 10.2 mg/dL Normal 8.6-10.3 [facility] Comment on above: Performed By: #### L [id number] ####[facility] (BEAKER)[address] [place] [address] Chloride [Moles/Vol] 104 mmol/L Normal 98-107 [facility] Comment on above: Performed By: #### L [id number] ####[facility] (BEAKER)[address] [place] [address] CO2 [Moles/Vol] 22 mmol/L Normal 21-31 [facility] Comment on above: Performed By: #### L [id number] ####[facility] (BEAKER)[address] [place] [address] Creatinine [Mass/Vol] 1.83 mg/dL High 0.70-1.30 [facility] Comment on above: Performed By: #### L [id number] ####[facility] ([facility])[address] [place] [address] GLOMERULAR FILTRATION RATE ML/MIN/1.73 SQ M.PREDICTED 40.2 mL/min/1.73m*2 Low >60.0 [facility] Comment on above: Result Comment: [facility]???s estimated glomerular filtration rate (eGFR) will no longer include consideration of race in its calculation. The National Kidney Foundation???s eGFR Task Force developed new recommendations for the estimation of the glomerular filtration rate in the [place] They recommend immediate implementation of the new equation refit without the race variable in all laboratories because the calculation does not include race. In addition to not including race in the calculation and reporting, it included diversity in its development, and has acceptable performance characteristics and potential consequences that do not disproportionately affect any one group of individuals. Performed By: #### L [id number] ####[facility] ([facility])[address] [place] [address] Glucose [Mass/Vol] 147 mg/dL High 70-100 [facility] Comment on above: Performed By: #### L [id number] ####[facility] ([facility])[address] [place] [address] Potassium [Moles/Vol] 4.8 mmol/L Normal 3.5-5.1 [facility] Comment on above: Performed By: #### L [id number] ####[facility] ([facility])[address] [place] [address] Protein [Mass/Vol] 8.0 g/dL Normal 6.0-8.3 [facility] Comment on above: Performed By: #### L [id number] ####[facility] ([facility])[address] [place] [address] Sodium [Moles/Vol] 135 mmol/L Low 136-145 [facility] Comment on above: Performed By: #### L [id number] ####[facility] ([facility])[address] [place] [address] Urea nitrogen [Mass/Vol] 25 mg/dL Normal 7-25 [facility] Comment on above: Performed By: #### L [id number] ####[facility] ([facility])[address] [place] [address] UREA NITROGEN/CREATININE (MASS RATIO) IN SER/PLAS 13.7 Normal [facility] Comment on above: Performed By: #### L [id number] ####[facility] ([facility])[address] [place] [address] T3, FREEon 04-04-2024 TRIIODOTHYRONINE (T3) FREE (PG/ML) IN SER/PLAS 3.0 pg/mL Normal 2.5-3.9 [facility] Comment on above: Performed By: #### L [id number] ####[facility] ([facility])[address] [place] [address] T4, FREEon 04-04-2024 THYROXINE (T4) FREE (NG/DL) IN SER/PLAS 1.05 ng/dL Normal 0.71-1.85 [facility] Comment on above: Performed By: #### L [id number] ####[facility] ([facility])[address] [address] TSHon 04-04-2024 THYROTROPIN (MIU/L) IN SER/PLAS BY DETECTION LIMIT <= 0.05 MIU/L 0.66 mIU/L Normal 0.34-5.60 [facility] Comment on above: Performed By: #### L [id number] ####[facility] ([facility])[address] [address] CT ABDOMEN PELVIS WO IV CONT RASTon 03-27-2024 CT ABDOMEN PELVIS WO IV CONTRAST Invalid Interpretation Code [facility] CBC WITH AUTO DIFFERENTIALon 03-16-2024 Basophils (Bld) [#/Vol] 0.05 10*3/uL Normal 0.00-0.20 [facility] Comment on above: Performed By: #### L [id number] ####[facility] (BEAKER)[address] [place] [address] Basophils/100 WBC (Bld) 0.6 % Normal 0.0-1.0 [facility] Comment on above: Performed By: #### L [id number] ####[facility] (BEAKER)[address] [place] [address] Eosinophils (Bld) [#/Vol] 0.11 10*3/uL Normal 0.00-0.50 [facility] Comment on above: Performed By: #### L [id number] ####[facility] (BEAKER)[address] [place] [address] Eosinophils/100 WBC (Bld) 1.4 % Normal 0.0-6.0 [facility] Comment on above: Performed By: #### L [id number] ####[facility] (BEAKER)[address] [place] [address] Erythrocyte distribution width (RBC) [Ratio] 14.5 % Normal 11.5-15.0 [facility] Comment on above: Performed By: #### L [id number] ####[facility] (BEAKER)[address] [place] [address] ERYTHROCYTE MEAN CORPUSCULAR HEMOGLOBIN CONCENTRATION (G/DL) BY AUTOMATED 33.5 g/dL Normal 32.0-35.0 [facility] Comment on above: Performed By: #### L [id number] ####[facility] (BEAKER)[address] [place] [address] Hematocrit (Bld) [Volume fraction] 40.9 % Normal 39.0-55.0 [facility] Comment on above: Performed By: #### L [id number] ####[facility] (BEAKER)[address] [place] [address] Hemoglobin (Bld) [Mass/Vol] 13.7 g/dL Normal 13.0-17.0 [facility] Comment on above: Performed By: #### L [id number] ####[facility] (BEAKER)[address] [place] [address] Immature granulocytes (Bld) [#/Vol] 0.03 10*3/uL Normal 0.00-0.20 [facility] Comment on above: Performed By: #### L [id number] ####[facility] (BEAKER)[address] [place] [address] Immature granulocytes/100 WBC (Bld) 0.4 % Normal 0.0-1.0 [facility] Comment on above: Performed By: #### L [id number] ####[facility] (BEAKER)[address] [place] [address] Lymphocytes (Bld) [#/Vol] 1.53 10*3/uL Normal 1.20-4.00 [facility] Comment on above: Performed By: #### L [id number] ####[facility] (BEAKER)[address] [place] [address] Lymphocytes/100 WBC (Bld) 19.9 % Low 20.0-45.0 [facility] Comment on above: Performed By: #### L [id number] ####[facility] (BEAKER)[address] [place] [address] MCH (RBC) [Entitic mass] 30.0 pg Normal 27.0-33.0 [facility] Comment on above: Performed By: #### L [id number] ####[facility] (BEAKER)[address] [place] [address] MCV (RBC) [Entitic vol] 89.7 fL Normal 82.0-98.0 [facility] Comment on above: Performed By: #### L [id number] ####[facility] (BEAKER)[address] [place] [address] Monocytes (Bld) [#/Vol] 0.63 10*3/uL Normal 0.10-1.00 [facility] Comment on above: Performed By: #### L [id number] ####[facility] (BEAKER)[address] [facility] [place] [address] Monocytes/100 WBC (Bld) 8.2 % Normal 5.0-12.0 [facility] Comment on above: Performed By: #### L [id number] ####[facility] ([facility] [place] [address] Neutrophils (Bld) [#/Vol] 5.35 10*3/uL Normal 1.60-7.60 [facility] Comment on above: Performed By: #### L [id number] ####[facility] ([facility])[address] [place] [address] Neutrophils/100 WBC (Bld) 69.5 % Normal 40.0-72.0 [facility] Comment on above: Performed By: #### L [id number] ####[facility] ([facility])[address] [place] [address] NRBC (PER 100 WBCS) BY AUTOMATED COUNT 0.0 % Normal 0 [facility] Comment on above: Performed By: #### L [id number] ####[facility] ([facility])[address] [place] [address] PLATELETS (10*3/UL) IN BLOOD AUTOMATED COUNT 274 10*3/uL Normal 150-400 [facility] Comment on above: Performed By: #### L [id number] ####[facility] ([facility] [place] [address] RBC (Bld) [#/Vol] 4.56 10*6/uL Normal 4.20-5.70 [facility] Comment on above: Performed By: #### L [id number] ####[facility] ([facility] [place] [address] WBC (Bld) [#/Vol] 7.70 10*3/uL Normal 4.00-10.60 [facility] Comment on above: Performed By: #### L [id number] ####[facility] (BEAKER)[address] [place] [address] COMPREHENSIVE METABOLIC PANE Sonido 03-16-2024 Albumin [Mass/Vol] 4.0 g/dL Normal 3.5-5.7 [facility] Comment on above: Performed By: #### L [id number] ####[facility] ([facility])[address] [place] [address] ALP [Catalytic activity/Vol] 107 U/L High 34-104 [facility] Comment on above: Performed By: #### L [id number] ####[facility] ([facility])[address] [place] [address] ALT [Catalytic activity/Vol] 13 U/L Normal 7-52 [facility] Comment on above: Performed By: #### L [id number] ####[facility] ([facility])[address] [place] [address] Anion gap [Moles/Vol] 13 mmol/L Normal 7-20 [facility] Comment on above: Performed By: #### L [id number] ####[facility] ([facility])[address] [place] [address] AST [Catalytic activity/Vol] 15 U/L Normal 13-39 [facility] Comment on above: Performed By: #### L [id number] ####[facility] ([facility])[address] [place] [address] Bilirubin [Mass/Vol] 0.7 mg/dL Normal 0.3-1.0 [facility] Comment on above: Performed By: #### L [id number] ####[facility] ([facility])[address] [place] [address] Calcium [Mass/Vol] 9.9 mg/dL Normal 8.6-10.3 [facility] Comment on above: Performed By: #### L [id number] ####[facility] ([facility])[address] [place] [address] Chloride [Moles/Vol] 103 mmol/L Normal 98-107 [facility] Comment on above: Performed By: #### L [id number] ####[facility] ([facility])[address] [place] [address] CO2 [Moles/Vol] 22 mmol/L Normal 21-31 [facility] Comment on above: Performed By: #### L [id number] ####[facility] ([facility])[address] [place] [address] Creatinine [Mass/Vol] 1.84 mg/dL High 0.70-1.30 [facility] Comment on above: Performed By: #### L [id number] ####[facility] ([facility])[address] [place] [address] GLOMERULAR FILTRATION RATE ML/MIN/1.73 SQ M.PREDICTED 39.9 mL/min/1.73m*2 Low >60.0 [facility] Comment on above: Result Comment: [facility]???s estimated glomerular filtration rate (eGFR) will no longer include consideration of race in its calculation. The National Kidney Foundation???s eGFR Task Force developed new recommendations for the estimation of the glomerular filtration rate in the [place] They recommend immediate implementation of the new equation refit without the race variable in all laboratories because the calculation does not include race. In addition to not including race in the calculation and reporting, it included diversity in its development, and has acceptable performance characteristics and potential consequences that do not disproportionately affect any one group of individuals. Performed By: #### L [id number] ####[facility] ([facility])[address] [place] [address] Glucose [Mass/Vol] 294 mg/dL High 70-100 [facility] Comment on above: Performed By: #### L [id number] ####[facility] ([facility])[address] [place] [address] Potassium [Moles/Vol] 4.7 mmol/L Normal 3.5-5.1 [facility] Comment on above: Performed By: #### L [id number] ####[facility] ([facility])[address] [place] [address] Protein [Mass/Vol] 7.5 g/dL Normal 6.0-8.3 [facility] Comment on above: Performed By: #### L [id number] ####[facility] ([facility] [place] [address] Sodium [Moles/Vol] 133 mmol/L Low 136-145 [facility] Comment on above: Performed By: #### L [id number] ####[facility] ([facility] [place] [address] Urea nitrogen [Mass/Vol] 23 mg/dL Normal 7-25 [facility] Comment on above: Performed By: #### L [id number] ####[facility] ([facility])[address] [place] [address] UREA NITROGEN/CREATININE (MASS RATIO) IN SER/PLAS 12.5 Normal [facility] Comment on above: Performed By: #### L [id number] ####[facility] ([facility])[address] [place] [address] HEMOGLOBIN A1Con 03-16-2024 Glucose [Mass/Vol] 209 mg/dL Normal [facility] Comment on above: Performed By: #### L [id number] ####[facility] ([facility])[address] [place] [address] HbA1c (Bld) [Mass fraction] 8.9 % High 4.0-6.0 [facility] Comment on above: Performed By: #### L [id number] ####[facility] ([facility])[address] [place] [address] Labon 03-16-2024 Lab Normal [facility] Orders Onlyon 03-16-2024 Orders Only Normal [facility] T3, FREEon 03-16-2024 TRIIODOTHYRONINE (T3) FREE (PG/ML) IN SER/PLAS 3.2 pg/mL Normal 2.5-3.9 [facility] Comment on above: Performed By: #### L [id number] ####[facility] ([facility] [place] [address] T4, FREEon 03-16-2024 THYROXINE (T4) FREE (NG/DL) IN SER/PLAS 0.77 ng/dL Normal 0.71-1.85 [facility] Comment on above: Performed By: #### L [id number] ####[facility] ([employer])[address] [place] [address] TSHon 03-16-2024 THYROTROPIN (MIU/L) IN SER/PLAS BY DETECTION LIMIT <= 0.05 MIU/L 0.81 mIU/L Normal 0.34-5.60 [facility] Comment on above: Performed By: #### L [id number] ####[facility] ([facility])[address] [place] [address] Follow-Upon 03-07-2024 Follow-Up Normal [facility] CBC WITH AUTO DIFFERENTIALon 02-25-2024 Basophils (Bld) [#/Vol] 0.06 10*3/uL Normal 0.00-0.20 [facility] Comment on above: Performed By: #### L [id number] ####[facility] ([employer])[address] [place] [address] Basophils/100 WBC (Bld) 0.8 % Normal 0.0-1.0 [facility] Comment on above: Performed By: #### L [id number] ####[facility] ([employer])[address] [place] [address] Eosinophils (Bld) [#/Vol] 0.20 10*3/uL Normal 0.00-0.50 [facility] Comment on above: Performed By: #### L [id number] ####[facility] ([employer])[address] [place] [address] Eosinophils/100 WBC (Bld) 2.7 % Normal 0.0-6.0 [facility] Comment on above: Performed By: #### L [id number] ####[facility] ([employer])[address] [place] [address] Erythrocyte distribution width (RBC) [Ratio] 15.2 % High 11.5-15.0 [facility] Comment on above: Performed By: #### L [id number] ####[facility] ([facility])[address] [place] [address] ERYTHROCYTE MEAN CORPUSCULAR HEMOGLOBIN CONCENTRATION (G/DL) BY AUTOMATED 33.4 g/dL Normal 32.0-35.0 [facility] Comment on above: Performed By: #### L [id number] ####[facility] ([facility])[address] [place] [address] Hematocrit (Bld) [Volume fraction] 38.6 % Low 39.0-55.0 [facility] Comment on above: Performed By: #### L [id number] ####[facility] ([facility])[address] [place] [address] Hemoglobin (Bld) [Mass/Vol] 12.9 g/dL Low 13.0-17.0 [facility] Comment on above: Performed By: #### L [id number] ####[facility] ([facility])[address] [place] [address] Immature granulocytes (Bld) [#/Vol] 0.01 10*3/uL Normal 0.00-0.20 [facility] Comment on above: Performed By: #### L [id number] ####[facility] ([facility])[address] [place] [address] Immature granulocytes/100 WBC (Bld) 0.1 % Normal 0.0-1.0 [facility] Comment on above: Performed By: #### L [id number] ####[facility] ([facility])[address] [place] [address] Lymphocytes (Bld) [#/Vol] 1.82 10*3/uL Normal 1.20-4.00 [facility] Comment on above: Performed By: #### L [id number] ####[facility] ([facility])[address] [place] [address] Lymphocytes/100 WBC (Bld) 24.5 % Normal 20.0-45.0 [facility] Comment on above: Performed By: #### L [id number] ####[facility] ([facility])[address] [place] [address] MCH (RBC) [Entitic mass] 30.3 pg Normal 27.0-33.0 [facility] Comment on above: Performed By: #### L [id number] ####[facility] ([facility])[address] [place] [address] MCV (RBC) [Entitic vol] 90.6 fL Normal 82.0-98.0 [facility] Comment on above: Performed By: #### L [id number] ####[facility] ([facility])[address] [place] [address] Monocytes (Bld) [#/Vol] 0.56 10*3/uL Normal 0.10-1.00 [facility] Comment on above: Performed By: #### L [id number] ####[facility] ([facility])[address] [place], [place] [address] Monocytes/100 WBC (Bld) 7.5 % Normal 5.0-12.0 [facility] Comment on above: Performed By: #### L [id number] ####[facility] ([facility])[address] [place] [address] Neutrophils (Bld) [#/Vol] 4.77 10*3/uL Normal 1.60-7.60 [facility] Comment on above: Performed By: #### L [id number] ####[facility] ([facility])[address] [place] [address] Neutrophils/100 WBC (Bld) 64.4 % Normal 40.0-72.0 [facility] Comment on above: Performed By: #### L [id number] ####[facility] ([facility])[address] [place] [address] NRBC (PER 100 WBCS) BY AUTOMATED COUNT 0.0 % Normal 0 [facility] Comment on above: Performed By: #### L [id number] ####[facility] ([facility])[address] [place] [address] PLATELETS (10*3/UL) IN BLOOD AUTOMATED COUNT 251 10*3/uL Normal 150-400 [facility] Comment on above: Performed By: #### L [id number] ####[facility] ([facility])[address] [place] [address] RBC (Bld) [#/Vol] 4.26 10*6/uL Normal 4.20-5.70 [facility] Comment on above: Performed By: #### L [id number] ####[facility] ([facility])[address] [place] [address] WBC (Bld) [#/Vol] 7.42 10*3/uL Normal 4.00-10.60 [facility] Comment on above: Performed By: #### L [id number] ####[facility] ([facility])[address] [place] [address] COMPREHENSIVE METABOLIC PANE Sonido 02-25-2024 Albumin [Mass/Vol] 3.9 g/dL Normal 3.5-5.7 [facility] Comment on above: Performed By: #### L [id number] ####[facility] ([facility])[address] [place] [address] ALP [Catalytic activity/Vol] 103 U/L Normal 34-104 [facility] Comment on above: Performed By: #### L [id number] ####[facility] ([facility] [place] [address] ALT [Catalytic activity/Vol] 14 U/L Normal 7-52 [facility] Comment on above: Performed By: #### L [id number] ####[facility] ([facility] [place] [address] Anion gap [Moles/Vol] 13 mmol/L Normal 7-20 [facility] Comment on above: Performed By: #### L [id number] ####[facility] ([facility])[address] [place] [address] AST [Catalytic activity/Vol] 14 U/L Normal 13-39 [facility] Comment on above: Performed By: #### L [id number] ####[facility] ([facility])[address] [place] [address] Bilirubin [Mass/Vol] 0.6 mg/dL Normal 0.3-1.0 [facility] Comment on above: Performed By: #### L [id number] ####[facility] ([facility])[address] [place] [address] Calcium [Mass/Vol] 9.5 mg/dL Normal 8.6-10.3 [facility] Comment on above: Performed By: #### L [id number] ####[facility] ([facility])[address] [place] [address] Chloride [Moles/Vol] 103 mmol/L Normal 98-107 [facility] Comment on above: Performed By: #### L [id number] ####[facility] ([facility])[address] [place] [address] CO2 [Moles/Vol] 24 mmol/L Normal 21-31 [facility] Comment on above: Performed By: #### L [id number] ####[facility] ([facility])[address] [place] [address] Creatinine [Mass/Vol] 2.05 mg/dL High 0.70-1.30 [facility] Comment on above: Performed By: #### L [id number] ####[facility] ([facility])[address] [place] [address] GLOMERULAR FILTRATION RATE ML/MIN/1.73 SQ M.PREDICTED 35.1 mL/min/1.73m*2 Low >60.0 [facility] Comment on above: Result Comment: [facility]???s estimated glomerular filtration rate (eGFR) will no longer include consideration of race in its calculation. The National Kidney Foundation???s eGFR Task Force developed new recommendations for the estimation of the glomerular filtration rate in the [place] They recommend immediate implementation of the new equation refit without the race variable in all laboratories because the calculation does not include race. In addition to not including race in the calculation and reporting, it included diversity in its development, and has acceptable performance characteristics and potential consequences that do not disproportionately affect any one group of individuals. Performed By: #### L [id number] ####[facility] ([facility])[address] [place] [address] Glucose [Mass/Vol] 238 mg/dL High 70-100 [facility] Comment on above: Performed By: #### L [id number] ####[facility] ([facility])[address] [place] [address] Potassium [Moles/Vol] 4.7 mmol/L Normal 3.5-5.1 [facility] Comment on above: Performed By: #### L [id number] ####[facility] ([facility])[address] [place] [address] Protein [Mass/Vol] 7.3 g/dL Normal 6.0-8.3 [facility] Comment on above: Performed By: #### L [id number] ####[facility] ([facility])[address] [place] [address] Sodium [Moles/Vol] 135 mmol/L Low 136-145 [facility] Comment on above: Performed By: #### L [id number] ####[facility] ([facility])[address] [place] [address] Urea nitrogen [Mass/Vol] 19 mg/dL Normal 7-25 [facility] Comment on above: Performed By: #### L [id number] ####[facility] ([facility])[address] [place] [address] UREA NITROGEN/CREATININE (MASS RATIO) IN SER/PLAS 9.3 Normal [facility] Comment on above: Performed By: #### L [id number] ####[facility] ([facility])[address] [place] [address] CT CHEST WO IV CONTRASTon CT CHEST WO IV CONTRAST Invalid Interpretation Code [facility] Labon 02-25-2024 Lab Normal [facility] Orders Onlyon 02-25-2024 Orders Only Normal [facility] T3, FREEon 02-25-2024 TRIIODOTHYRONINE (T3) FREE (PG/ML) IN SER/PLAS 3.3 pg/mL Normal 2.5-3.9 [facility] Comment on above: Performed By: #### L [id number] ####[facility] ([facility] [place] [address] T4, FREEon 02-25-2024 THYROXINE (T4) FREE (NG/DL) IN SER/PLAS 0.76 ng/dL Normal 0.71-1.85 [facility] Comment on above: Performed By: #### L [id number] ####[facility] ([facility])[address] [place] [address] TSHon 02-25-2024 THYROTROPIN (MIU/L) IN SER/PLAS BY DETECTION LIMIT <= 0.05 MIU/L 0.84 mIU/L Normal 0.34-5.60 [facility] Comment on above: Performed By: #### L [id number] ####[facility] ([facility])[address] [place] [address] Orders Onlyon 02-21-2024 Orders Only Normal [facility] CBC WITH AUTO DIFFERENTIALon 02-03-2024 Basophils (Bld) [#/Vol] 0.06 10*3/uL Normal 0.00-0.20 [facility] Comment on above: Performed By: #### L [id number] ####[facility] ([facility] [place] [address] Basophils/100 WBC (Bld) 0.7 % Normal 0.0-1.0 [facility] Comment on above: Performed By: #### L [id number] ####[facility] ([facility])[address] [place] [address] Eosinophils (Bld) [#/Vol] 0.29 10*3/uL Normal 0.00-0.50 [facility] Comment on above: Performed By: #### L [id number] ####[facility] ([facility] [place] [address] Eosinophils/100 WBC (Bld) 3.3 % Normal 0.0-6.0 [facility] Comment on above: Performed By: #### L [id number] ####[facility] ([facility])[address] [place] [address] Erythrocyte distribution width (RBC) [Ratio] 15.5 % High 11.5-15.0 [facility] Comment on above: Performed By: #### L [id number] ####[facility] ([facility])[address] [place] [address] ERYTHROCYTE MEAN CORPUSCULAR HEMOGLOBIN CONCENTRATION (G/DL) BY AUTOMATED 33.0 g/dL Normal 32.0-35.0 [facility] Comment on above: Performed By: #### L [id number] ####[facility] ([facility])[address] [place] [address] Hematocrit (Bld) [Volume fraction] 41.5 % Normal 39.0-55.0 [facility] Comment on above: Performed By: #### L [id number] ####[facility] ([facility])[address] [place] [address] Hemoglobin (Bld) [Mass/Vol] 13.7 g/dL Normal 13.0-17.0 [facility] Comment on above: Performed By: #### L [id number] ####[facility] ([facility])[address] [place] [address] Immature granulocytes (Bld) [#/Vol] 0.03 10*3/uL Normal 0.00-0.20 [facility] Comment on above: Performed By: #### L [id number] ####[facility] ([facility])[address] [place] [address] Immature granulocytes/100 WBC (Bld) 0.3 % Normal 0.0-1.0 [facility] Comment on above: Performed By: #### L [id number] ####[facility] ([facility])[address] [place] [address] Lymphocytes (Bld) [#/Vol] 2.49 10*3/uL Normal 1.20-4.00 [facility] Comment on above: Performed By: #### L [id number] ####[facility] ([facility] [place] [address] Lymphocytes/100 WBC (Bld) 28.4 % Normal 20.0-45.0 [facility] Comment on above: Performed By: #### L [id number] ####[facility] ([facility])[address] [place] [address] MCH (RBC) [Entitic mass] 29.5 pg Normal 27.0-33.0 [facility] Comment on above: Performed By: #### L [id number] ####[facility] ([facility])[address] [place] [address] MCV (RBC) [Entitic vol] 89.4 fL Normal 82.0-98.0 [facility] Comment on above: Performed By: #### L [id number] ####[facility] ([facility] [place] [address] Monocytes (Bld) [#/Vol] 0.72 10*3/uL Normal 0.10-1.00 [facility] Comment on above: Performed By: #### L [id number] ####[facility] ([facility])[address] [place] [address] Monocytes/100 WBC (Bld) 8.2 % Normal 5.0-12.0 [facility] Comment on above: Performed By: #### L [id number] ####[facility] ([facility])[address] [place] [address] Neutrophils (Bld) [#/Vol] 5.18 10*3/uL Normal 1.60-7.60 [facility] Comment on above: Performed By: #### L [id number] ####[facility] ([facility])[address] [place] [address] Neutrophils/100 WBC (Bld) 59.1 % Normal 40.0-72.0 [facility] Comment on above: Performed By: #### L [id number] ####[facility] ([facility])[address] [place] [address] NRBC (PER 100 WBCS) BY AUTOMATED COUNT 0.0 % Normal 0 [facility] Comment on above: Performed By: #### L [id number] ####[facility] ([facility])[address] [place] [address] PLATELETS (10*3/UL) IN BLOOD AUTOMATED COUNT 293 10*3/uL Normal 150-400 [facility] Comment on above: Performed By: #### L [id number] ####[facility] ([facility])[address] [place] [address] RBC (Bld) [#/Vol] 4.64 10*6/uL Normal 4.20-5.70 [facility] Comment on above: Performed By: #### L [id number] ####[facility] ([facility])[address] [place] [address] WBC (Bld) [#/Vol] 8.77 10*3/uL Normal 4.00-10.60 [facility] Comment on above: Performed By: #### L [id number] ####[facility] ([facility] [place] [address] COMPREHENSIVE METABOLIC PANE Sonido 02-03-2024 Albumin [Mass/Vol] 3.9 g/dL Normal 3.5-5.7 [facility] Comment on above: Performed By: #### L [id number] ####[facility] ([facility] [place] [address] ALP [Catalytic activity/Vol] 114 U/L High 34-104 [facility] Comment on above: Performed By: #### L [id number] ####[facility] ([facility])[address] [place] [address] ALT [Catalytic activity/Vol] 16 U/L Normal 7-52 [facility] Comment on above: Performed By: #### L [id number] ####[facility] ([facility])[address] [place] [address] Anion gap [Moles/Vol] 14 mmol/L Normal 7-20 [facility] Comment on above: Performed By: #### L [id number] ####[facility] ([facility])[address] [place] [address] AST [Catalytic activity/Vol] 16 U/L Normal 13-39 [facility] Comment on above: Performed By: #### L [id number] ####[facility] ([facility])[address] [place] [address] Bilirubin [Mass/Vol] 0.6 mg/dL Normal 0.3-1.0 [facility] Comment on above: Performed By: #### L [id number] ####[facility] ([facility])[address] [place] [address] Calcium [Mass/Vol] 10.2 mg/dL Normal 8.6-10.3 [facility] Comment on above: Performed By: #### L [id number] ####[facility] ([facility])[address] [place] [address] Chloride [Moles/Vol] 101 mmol/L Normal 98-107 [facility] Comment on above: Performed By: #### L [id number] ####[facility] ([facility])[address] [place] [address] CO2 [Moles/Vol] 24 mmol/L Normal 21-31 [facility] Comment on above: Performed By: #### L [id number] ####[facility] ([facility])[address] [place] [address] Creatinine [Mass/Vol] 1.71 mg/dL High 0.70-1.30 [facility] Comment on above: Performed By: #### L [id number] ####[facility] ([facility])[address] [place] [address] GLOMERULAR FILTRATION RATE ML/MIN/1.73 SQ M.PREDICTED 43.6 mL/min/1.73m*2 Low >60.0 [facility] Comment on above: Result Comment: [facility]???s estimated glomerular filtration rate (eGFR) will no longer include consideration of race in its calculation. The National Kidney Foundation???s eGFR Task Force developed new recommendations for the estimation of the glomerular filtration rate in the [place] They recommend immediate implementation of the new equation refit without the race variable in all laboratories because the calculation does not include race. In addition to not including race in the calculation and reporting, it included diversity in its development, and has acceptable performance characteristics and potential consequences that do not disproportionately affect any one group of individuals. Performed By: #### L [id number] ####[facility] ([facility])[address] [place] [address] Glucose [Mass/Vol] 202 mg/dL High 70-100 [facility] Comment on above: Performed By: #### L [id number] ####[facility] ([facility])[address] [place] [address] Potassium [Moles/Vol] 4.6 mmol/L Normal 3.5-5.1 [facility] Comment on above: Performed By: #### L [id number] ####[facility] ([facility])[address] [place] [address] Protein [Mass/Vol] 7.3 g/dL Normal 6.0-8.3 [facility] Comment on above: Performed By: #### L [id number] ####[facility] ([facility])[address] [place] [address] Sodium [Moles/Vol] 134 mmol/L Low 136-145 [facility] Comment on above: Performed By: #### L [id number] ####[facility] ([facility] [place] [address] Urea nitrogen [Mass/Vol] 29 mg/dL High 7-25 [facility] Comment on above: Performed By: #### L [id number] ####[facility] ([facility])[address] [place] [address] UREA NITROGEN/CREATININE (MASS RATIO) IN SER/PLAS 17.0 Normal [facility] Comment on above: Performed By: #### L [id number] ####[facility] ([facility])[address] [place] [address] Labon 02-03-2024 Lab Normal [facility] Orders Onlyon 02-03-2024 Orders Only Normal [facility] T3, FREEon 02-03-2024 TRIIODOTHYRONINE (T3) FREE (PG/ML) IN SER/PLAS 3.3 pg/mL Normal 2.5-3.9 [facility] Comment on above: Performed By: #### L [id number] ####[facility] ([facility])[address] [place] [address] T4, FREEon 02-03-2024 THYROXINE (T4) FREE (NG/DL) IN SER/PLAS 0.70 ng/dL Low 0.71-1.85 [facility] Comment on above: Performed By: #### L [id number] ####[facility] ([facility])[address] [place] [address] TSHon 02-03-2024 THYROTROPIN (MIU/L) IN SER/PLAS BY DETECTION LIMIT <= 0.05 MIU/L 1.01 mIU/L Normal 0.34-5.60 [facility] Comment on above: Performed By: #### L [id number] ####[facility] ([facility])[address] [place] [address] Orders Onlyon 01-19-2024 Orders Only Normal [facility] CBC WITH AUTO DIFFERENTIALon 01-13-2024 Basophils (Bld) [#/Vol] 0.04 10*3/uL Normal 0.00-0.20 [facility] Comment on above: Performed By: #### L [id number] ####[facility] ([facility])[address] [place] [address] Basophils/100 WBC (Bld) 0.7 % Normal 0.0-1.0 [facility] Comment on above: Performed By: #### L [id number] ####[facility] ([facility])[address] [place] [address] Eosinophils (Bld) [#/Vol] 0.16 10*3/uL Normal 0.00-0.50 [facility] Comment on above: Performed By: #### L [id number] ####[facility] ([facility])[address] [place] [address] Eosinophils/100 WBC (Bld) 2.7 % Normal 0.0-6.0 [facility] Comment on above: Performed By: #### L [id number] ####[facility] ([facility])[address] [place] [address] Erythrocyte distribution width (RBC) [Ratio] 16.0 % High 11.5-15.0 [facility] Comment on above: Performed By: #### L [id number] ####[facility] ([facility])[address] [place] [address] ERYTHROCYTE MEAN CORPUSCULAR HEMOGLOBIN CONCENTRATION (G/DL) BY AUTOMATED 33.8 g/dL Normal 32.0-35.0 [facility] Comment on above: Performed By: #### L [id number] ####[facility] [place] [address] Hematocrit (Bld) [Volume fraction] 39.9 % Normal 39.0-55.0 [facility] Comment on above: Performed By: #### L [id number] ####[facility] ([facility])[address] [place] [address] Hemoglobin (Bld) [Mass/Vol] 13.5 g/dL Normal 13.0-17.0 [facility] Comment on above: Performed By: #### L [id number] ####[facility] ([facility])[address] [place] [address] Immature granulocytes (Bld) [#/Vol] 0.02 10*3/uL Normal 0.00-0.20 [facility] Comment on above: Performed By: #### L [id number] ####[facility] ([facility])[address] [place] [address] Immature granulocytes/100 WBC (Bld) 0.3 % Normal 0.0-1.0 [facility] Comment on above: Performed By: #### L [id number] ####[facility] ([facility])[address] [place] [address] Lymphocytes (Bld) [#/Vol] 1.49 10*3/uL Normal 1.20-4.00 [facility] Comment on above: Performed By: #### L [id number] ####[facility] ([facility] [place] [address] Lymphocytes/100 WBC (Bld) 24.7 % Normal 20.0-45.0 [facility] Comment on above: Performed By: #### L [id number] ####[facility] ([facility] [place] [address] MCH (RBC) [Entitic mass] 29.8 pg Normal 27.0-33.0 [facility] Comment on above: Performed By: #### L [id number] ####[facility] ([facility])[address] [place] [address] MCV (RBC) [Entitic vol] 88.1 fL Normal 82.0-98.0 [facility] Comment on above: Performed By: #### L [id number] ####[facility] ([facility])[address] [place] [address] Monocytes (Bld) [#/Vol] 0.53 10*3/uL Normal 0.10-1.00 [facility] Comment on above: Performed By: #### L [id number] ####[facility] ([facility])[address] [place] [address] Monocytes/100 WBC (Bld) 8.8 % Normal 5.0-12.0 [facility] Comment on above: Performed By: #### L [id number] ####[facility] ([facility])[address] [place] [address] Neutrophils (Bld) [#/Vol] 3.79 10*3/uL Normal 1.60-7.60 [facility] Comment on above: Performed By: #### L [id number] ####[facility] ([facility] [place] [address] Neutrophils/100 WBC (Bld) 62.8 % Normal 40.0-72.0 [facility] Comment on above: Performed By: #### L [id number] ####[facility] ([facility])[address] [place] [address] NRBC (PER 100 WBCS) BY AUTOMATED COUNT 0.0 % Normal 0 [facility] Comment on above: Performed By: #### L [id number] ####[facility] ([facility])[address] [place] [address] PLATELETS (10*3/UL) IN BLOOD AUTOMATED COUNT 254 10*3/uL Normal 150-400 [facility] Comment on above: Performed By: #### L [id number] ####[facility] ([facility])[address] [place] [address] RBC (Bld) [#/Vol] 4.53 10*6/uL Normal 4.20-5.70 [facility] Comment on above: Performed By: #### L [id number] ####[facility] ([facility])[address] [place] [address] WBC (Bld) [#/Vol] 6.03 10*3/uL Normal 4.00-10.60 [facility] Comment on above: Performed By: #### L [id number] ####[facility] ([facility])[address] [place] [address] COMPREHENSIVE METABOLIC PANE Sonido 01-13-2024 Albumin [Mass/Vol] 3.9 g/dL Normal 3.5-5.7 [facility] Comment on above: Performed By: #### L [id number] ####[facility] ([facility])[address] [place] [address] ALP [Catalytic activity/Vol] 126 U/L High 34-104 [facility] Comment on above: Performed By: #### L [id number] ####[facility] ([facility])[address] [place] [address] ALT [Catalytic activity/Vol] 19 U/L Normal 7-52 [facility] Comment on above: Performed By: #### L [id number] ####[facility] ([facility])[address] [place] [address] Anion gap [Moles/Vol] 14 mmol/L Normal 7-20 [facility] Comment on above: Performed By: #### L [id number] ####[facility] ([facility])[address] [place] [address] AST [Catalytic activity/Vol] 15 U/L Normal 13-39 [facility] Comment on above: Performed By: #### L [id number] ####[facility] ([facility])[address] [place] [address] Bilirubin [Mass/Vol] 0.6 mg/dL Normal 0.3-1.0 [facility] Comment on above: Performed By: #### L [id number] ####[facility] ([facility])[address] [place] [address] Calcium [Mass/Vol] 9.9 mg/dL Normal 8.6-10.3 [facility] Comment on above: Performed By: #### L [id number] ####[facility] ([facility])[address] [place] [address] Chloride [Moles/Vol] 105 mmol/L Normal 98-107 [facility] Comment on above: Performed By: #### L [id number] ####[facility] ([facility])[address] [place] [address] CO2 [Moles/Vol] 22 mmol/L Normal 21-31 [facility] Comment on above: Performed By: #### L [id number] ####[facility] ([facility])[address] [place] [address] Creatinine [Mass/Vol] 1.78 mg/dL High 0.70-1.30 [facility] Comment on above: Performed By: #### L [id number] ####[facility] ([facility])[address] [place] [address] GLOMERULAR FILTRATION RATE ML/MIN/1.73 SQ M.PREDICTED 41.6 mL/min/1.73m*2 Low >60.0 [facility] Comment on above: Result Comment: [facility]???s estimated glomerular filtration rate (eGFR) will no longer include consideration of race in its calculation. The National Kidney Foundation???s eGFR Task Force developed new recommendations for the estimation of the glomerular filtration rate in the [place] They recommend immediate implementation of the new equation refit without the race variable in all laboratories because the calculation does not include race. In addition to not including race in the calculation and reporting, it included diversity in its development, and has acceptable performance characteristics and potential consequences that do not disproportionately affect any one group of individuals. Performed By: #### L [id number] ####[facility] ([facility])[address] [place] [address] Glucose [Mass/Vol] 213 mg/dL High 70-100 [facility] Comment on above: Performed By: #### L [id number] ####[facility] ([facility])[address] [place] [address] Potassium [Moles/Vol] 4.8 mmol/L Normal 3.5-5.1 [facility] Comment on above: Performed By: #### L [id number] ####[facility] ([facility])[address] [place] [address] Protein [Mass/Vol] 7.5 g/dL Normal 6.0-8.3 [facility] Comment on above: Performed By: #### L [id number] ####[facility] ([facility])[address] [place] [address] Sodium [Moles/Vol] 136 mmol/L Normal 136-145 [facility] Comment on above: Performed By: #### L [id number] ####[facility] ([facility])[address] [place] [address] Urea nitrogen [Mass/Vol] 29 mg/dL High 7-25 [facility] Comment on above: Performed By: #### L [id number] ####[facility] ([facility])[address] [place] [address] UREA NITROGEN/CREATININE (MASS RATIO) IN SER/PLAS 16.3 Normal [facility] Comment on above: Performed By: #### L [id number] ####[facility] ([facility])[address] [place] [address] Labon 01-13-2024 Lab Normal [facility] T3, FREEon 01-13-2024 TRIIODOTHYRONINE (T3) FREE (PG/ML) IN SER/PLAS 2.8 pg/mL Normal 2.5-3.9 [facility] Comment on above: Performed By: #### L [id number] ####[facility] ([facility])[address] [place] [address] T4, FREEon 01-13-2024 THYROXINE (T4) FREE (NG/DL) IN SER/PLAS 0.79 ng/dL Normal 0.71-1.85 [facility] Comment on above: Performed By: #### L [id number] ####[facility] ([facility])[address] [place] [address] TSHon 01-13-2024 THYROTROPIN (MIU/L) IN SER/PLAS BY DETECTION LIMIT <= 0.05 MIU/L 0.77 mIU/L Normal 0.34-5.60 [facility] Comment on above: Performed By: #### L [id number] ####[facility] ([facility])[address] [facility] [place] [address] 29on 12-23-2023 29 Addended by: JEWELL MERINO on: 12/27/2023 02:17 PM Modules accepted: Orders Normal [facility] CBC WITH AUTO DIFFERENTIALon 12-23-2023 Basophils (Bld) [#/Vol] 0.05 10*3/uL Normal 0.00-0.20 [facility] Comment on above: Performed By: #### L [id number] ####[facility] ([facility])[address] [place] [address] Basophils/100 WBC (Bld) 0.7 % Normal 0.0-1.0 [facility] Comment on above: Performed By: #### L [id number] ####[facility] ([facility])[address] [place] [address] Eosinophils (Bld) [#/Vol] 0.20 10*3/uL Normal 0.00-0.50 [facility] Comment on above: Performed By: #### L [id number] ####[facility] ([facility])[address] [place] [address] Eosinophils/100 WBC (Bld) 2.8 % Normal 0.0-6.0 [facility] Comment on above: Performed By: #### L [id number] ####[facility] ([facility])[address] [place] [address] Erythrocyte distribution width (RBC) [Ratio] 15.0 % Normal 11.5-15.0 [facility] Comment on above: Performed By: #### L [id number] ####[facility] ([facility])[address] [place] [address] ERYTHROCYTE MEAN CORPUSCULAR HEMOGLOBIN CONCENTRATION (G/DL) BY AUTOMATED 33.3 g/dL Normal 32.0-35.0 [facility] Comment on above: Performed By: #### L [id number] ####[facility] ([facility])[address] [place] [address] Hematocrit (Bld) [Volume fraction] 42.4 % Normal 39.0-55.0 [facility] Comment on above: Performed By: #### L [id number] ####[facility] ([facility])[address] [place] [address] Hemoglobin (Bld) [Mass/Vol] 14.1 g/dL Normal 13.0-17.0 [facility] Comment on above: Performed By: #### L [id number] ####[facility] ([facility])[address] [place] [address] Immature granulocytes (Bld) [#/Vol] 0.03 10*3/uL Normal 0.00-0.20 [facility] Comment on above: Performed By: #### L [id number] ####[facility] ([facility])[address] [place] [address] Immature granulocytes/100 WBC (Bld) 0.4 % Normal 0.0-1.0 [facility] Comment on above: Performed By: #### L [id number] ####[facility] ([facility])[address] [place] [address] Lymphocytes (Bld) [#/Vol] 2.25 10*3/uL Normal 1.20-4.00 [facility] Comment on above: Performed By: #### L [id number] ####[facility] ([facility])[address] [place] [address] Lymphocytes/100 WBC (Bld) 31.6 % Normal 20.0-45.0 [facility] Comment on above: Performed By: #### L [id number] ####[facility] ([facility])[address] [place] [address] MCH (RBC) [Entitic mass] 28.8 pg Normal 27.0-33.0 [facility] Comment on above: Performed By: #### L [id number] ####[facility] ([facility] [place] [address] MCV (RBC) [Entitic vol] 86.5 fL Normal 82.0-98.0 [facility] Comment on above: Performed By: #### L [id number] ####[facility] ([facility])[address] [place] [address] Monocytes (Bld) [#/Vol] 0.59 10*3/uL Normal 0.10-1.00 [facility] Comment on above: Performed By: #### L [id number] ####[facility] ([facility])[address] [place] [address] Monocytes/100 WBC (Bld) 8.3 % Normal 5.0-12.0 [facility] Comment on above: Performed By: #### L [id number] ####[facility] ([facility])[address] [place] [address] Neutrophils (Bld) [#/Vol] 4.00 10*3/uL Normal 1.60-7.60 [facility] Comment on above: Performed By: #### L [id number] ####[facility] ([facility])[address] [place], [place] [address] Neutrophils/100 WBC (Bld) 56.2 % Normal 40.0-72.0 [facility] Comment on above: Performed By: #### L [id number] ####[facility] ([facility])[address] [place], [place] [address] NRBC (PER 100 WBCS) BY AUTOMATED COUNT 0.0 % Normal 0 [facility] Comment on above: Performed By: #### L [id number] ####[facility] ([facility])[address] [place], [place] [address] PLATELETS (10*3/UL) IN BLOOD AUTOMATED COUNT 263 10*3/uL Normal 150-400 [facility] Comment on above: Performed By: #### L [id number] ####[facility] ([facility])[address] [place], [place] [address] RBC (Bld) [#/Vol] 4.90 10*6/uL Normal 4.20-5.70 [facility] Comment on above: Performed By: #### L [id number] ####[facility] ([facility])[address] [place] [address] WBC (Bld) [#/Vol] 7.12 10*3/uL Normal 4.00-10.60 [facility] Comment on above: Performed By: #### L [id number] ####[facility] ([facility] [place] [address] COMPREHENSIVE METABOLIC PANE Sonido 12-23-2023 Albumin [Mass/Vol] 4.1 g/dL Normal 3.5-5.7 [facility] Comment on above: Performed By: #### L [id number] ####[facility] ([facility])[address] [place] [address] ALP [Catalytic activity/Vol] 136 U/L High 34-104 [facility] Comment on above: Performed By: #### L [id number] ####[facility] ([facility] [place] [address] ALT [Catalytic activity/Vol] 14 U/L Normal 7-52 [facility] Comment on above: Performed By: #### L [id number] ####[facility] ([facility] [place] [address] Anion gap [Moles/Vol] 11 mmol/L Normal 7-20 [facility] Comment on above: Performed By: #### L [id number] ####[facility] ([facility])[address] [place] [address] AST [Catalytic activity/Vol] 14 U/L Normal 13-39 [facility] Comment on above: Performed By: #### L [id number] ####[facility] ([facility] [place] [address] Bilirubin [Mass/Vol] 0.6 mg/dL Normal 0.3-1.0 [facility] Comment on above: Performed By: #### L [id number] ####[facility] ([facility] [place] [address] Calcium [Mass/Vol] 10.5 mg/dL High 8.6-10.3 [facility] Comment on above: Performed By: #### L [id number] ####[facility] ([facility])[address] [place] [address] Chloride [Moles/Vol] 103 mmol/L Normal 98-107 [facility] Comment on above: Performed By: #### L [id number] ####[facility] ([facility])[address] [place] [address] CO2 [Moles/Vol] 26 mmol/L Normal 21-31 [facility] Comment on above: Performed By: #### L [id number] ####[facility] ([facility])[address] [place] [address] Creatinine [Mass/Vol] 1.72 mg/dL High 0.70-1.30 [facility] Comment on above: Performed By: #### L [id number] ####[facility] ([facility]ER)[address] [place] [address] GLOMERULAR FILTRATION RATE ML/MIN/1.73 SQ M.PREDICTED 43.3 mL/min/1.73m*2 Low >60.0 [facility] Comment on above: Result Comment: [facility]???s estimated glomerular filtration rate (eGFR) will no longer include consideration of race in its calculation. The National Kidney Foundation???s eGFR Task Force developed new recommendations for the estimation of the glomerular filtration rate in the [place] They recommend immediate implementation of the new equation refit without the race variable in all laboratories because the calculation does not include race. In addition to not including race in the calculation and reporting, it included diversity in its development, and has acceptable performance characteristics and potential consequences that do not disproportionately affect any one group of individuals. Performed By: #### L [id number] ####[facility] ([facility]ER)[address] [place] [address] Glucose [Mass/Vol] 190 mg/dL High 70-100 [facility] Comment on above: Performed By: #### L [id number] ####[facility] ([facility]ER)[address] [place] [address] Potassium [Moles/Vol] 4.7 mmol/L Normal 3.5-5.1 [facility] Comment on above: Performed By: #### L [id number] ####[facility] ([facility] [place] [address] Protein [Mass/Vol] 7.8 g/dL Normal 6.0-8.3 [facility] Comment on above: Performed By: #### L [id number] ####[facility] ([facility])[address] [place] [address] Sodium [Moles/Vol] 135 mmol/L Low 136-145 [facility] Comment on above: Performed By: #### L [id number] ####[facility] ([facility])[address] [place] [address] Urea nitrogen [Mass/Vol] 30 mg/dL High 7-25 [facility] Comment on above: Performed By: #### L [id number] ####[facility] ([facility])[address] [place] [address] UREA NITROGEN/CREATININE (MASS RATIO) IN SER/PLAS 17.4 Normal [facility] Comment on above: Performed By: #### L [id number] ####[facility] ([facility])[address] [place] [address] CORTISOLon 12-23-2023 CORTISOL (UG/DL) IN SER/PLAS 10.0 ug/dL Normal 6-23 [facility] Comment on above: Order Comment: Obtai n level in the morning prior to starting immunotherapy Performed By: #### L [id number] ####[facility] ([facility])[address] [place] [address] Follow-Upon 12-23-2023 Follow-Up Normal [facility] IMMUNOFIXATION ELECTROPHORES Mohan 12-23-2023 IMMUNOFIXATION ELECTROPHORESIS 1 See attached report. Normal [facility] Comment on above: Result Comment: This is an appended report. These results have been appended to a previously final verified report. Performed By: #### L [id number] ####[facility] ([facility])[address] [place] [address] Magnesium [Mass/Vol] 1540 mg/dL Normal 591-1540 [facility] Comment on above: Performed By: #### L [id number] ####[facility] (BEAKER)[address] [place] [address] Magnesium [Mass/Vol] 372 mg/dL Normal 60-413 [facility] Comment on above: Performed By: #### L [id number] ####[facility] ([place])[address] [place] [address] Magnesium [Mass/Vol] 87.1 mg/dL Normal 54-285 [facility] Comment on above: Performed By: #### L [id number] ####[facility] ([place])[address] [place] [address] KAPPA / LAMBDA LIGHT CHAINS, FREEon 12-23-2023 IMMUNOGLOBULIN LIGHT CHAINS KAPPA/LAMBDA (MASS RATIO) IN SERUM 1.34 Normal 0.22-1.74 [facility] Comment on above: Result Comment: Test Performed by [employer] [address] [place] [id number] - Released 12/27/2023 19:00 Performed By: #### L [id number] ####[facility] [id number] [place] [address] IMMUNOGLOBULIN LIGHT CHAINS.KAPPA (MG/DL) IN SERUM 104.0 mg/L High <20.8 [facility] Comment on above: Result Comment: Perf ormed using [employer] reagent on [employer]. Results obtained with different assay methods cannot be used interchangeably. Performed By: #### L [id number] ####[facility] [id number] [place] [address] IMMUNOGLOBULIN LIGHT CHAINS.LAMBDA (MG/DL) IN SERUM 77.7 mg/L High 4.2-27.7 [facility] Comment on above: Result Comment: Perf ormed using [employer] reagent on [employer]. Results obtained with different assay methods cannot be used interchangeably. Performed By: #### L [id number] ####[employer] [id number] [place] [address] Labon 12-23-2023 Lab Normal [facility] Orders Onlyon 12-23-2023 Orders Only Normal [facility] PROTEIN ELECTROPHORESIS, SER UMon 12-23-2023 Protein [Mass/Vol] 7.3 g/dL Normal 6.0-8.3 [facility] [facility] Comment on above: Order Comment: Elect ronically signed by Beatriz Dubon MD on 01/03/24 at 5:47 PM. Performed By: #### L [id number] ####[facility] ([facility] [place] [address] PROTEIN FRACTION (INTERPRETATION) IN SER/PLAS BY ELECTROPHORESIS See attached report Normal [facility] Comment on above: Order Comment: Elect ronically signed by Beatriz Dubon MD on 01/03/24 at 5:47 PM. Performed By: #### L [id number] ####[facility] ([facility])[address] [place] [address] T3, FREEon 12-23-2023 TRIIODOTHYRONINE (T3) FREE (PG/ML) IN SER/PLAS 3.2 pg/mL Normal 2.5-3.9 [facility] Comment on above: Performed By: #### L [id number] ####[facility] ([facility])[address] [place] [address] T4, FREEon 12-23-2023 THYROXINE (T4) FREE (NG/DL) IN SER/PLAS 1.00 ng/dL Normal 0.71-1.85 [facility] Comment on above: Performed By: #### L [id number] ####[facility] ([facility])[address] [place] [address] TSHon 12-23-2023 THYROTROPIN (MIU/L) IN SER/PLAS BY DETECTION LIMIT <= 0.05 MIU/L 0.68 mIU/L Normal 0.34-5.60 [facility] Comment on above: Performed By: #### L [id number] ####[facility] ([facility])[address] [place] [address] Orders Onlyon 12-22-2023 Orders Only Normal [facility] [id number] 12-16-2023 [id number] Normal [facility] ANESon 12-16-2023 ANES Normal [facility] ANES Normal [facility] HPon 12-16-2023 HP Normal [facility] NURSNOTEon 12-16-2023 NURSNOTE Discharge instructio percy discussed with pt and pt's . Stated understanding. Pt does not need prescriptions filled. Normal [facility] OPNOTEon 12-16-2023 OPNOTE Normal [facility] POCT GLUCOSE METER UNSOLICIT ED RESULTSon 12-16-2023 Glucose [Mass/Vol] 183 mg/dL High 70-105 [facility] Comment on above: Order Comment: Waive d Testing in the ED is performed under the ED CLIA certificate #[id number]. Result Comment: dspe ars Performed By: #### L [id number] ####[facility] ([facility])[address] [place] [address] Glucose [Mass/Vol] 186 mg/dL High 70-105 [facility] Comment on above: Order Comment: Waive d Testing in the ED is performed under the ED CLIA certificate #[id number]. Result Comment: msc juan j Performed By: #### L [id number] ####[facility] ([facility])[address] [place] [address] CBCon 12-13-2023 Erythrocyte distribution width (RBC) [Ratio] 14.8 % Normal 11.5-15.0 [facility] Comment on above: Performed By: #### L [id number] ####[facility] ([facility])[address] [place] [address] ERYTHROCYTE MEAN CORPUSCULAR HEMOGLOBIN CONCENTRATION (G/DL) BY AUTOMATED 34.0 g/dL Normal 32.0-35.0 [facility] Comment on above: Performed By: #### L [id number] ####[facility] ([facility])[address] [place] [address] Hematocrit (Bld) [Volume fraction] 40.6 % Normal 39.0-55.0 [facility] Comment on above: Performed By: #### L [id number] ####[facility] ([facility])[address] [place] [address] Hemoglobin (Bld) [Mass/Vol] 13.8 g/dL Normal 13.0-17.0 [facility] Comment on above: Performed By: #### L [id number] ####[facility] ([facility])[address] [place] [address] MCH (RBC) [Entitic mass] 29.4 pg Normal 27.0-33.0 [facility] Comment on above: Performed By: #### L [id number] ####[facility] ([facility])[address] [place] [address] MCV (RBC) [Entitic vol] 86.6 fL Normal 82.0-98.0 [facility] Comment on above: Performed By: #### L [id number] ####[facility] ([facility])[address] [place] [address] PLATELETS (10*3/UL) IN BLOOD AUTOMATED COUNT 231 10*3/uL Normal 150-400 [facility] Comment on above: Performed By: #### L [id number] ####[facility] ([facility])[address] [place] [address] RBC (Bld) [#/Vol] 4.69 10*6/uL Normal 4.20-5.70 [facility] Comment on above: Performed By: #### L [id number] ####[facility] ([facility])[address] [place] [address] WBC (Bld) [#/Vol] 7.06 10*3/uL Normal 4.00-10.60 [facility] Comment on above: Performed By: #### L [id number] ####[facility] ([facility])[address] [place] [address] COMPREHENSIVE METABOLIC PANE Sonido 12-13-2023 Albumin [Mass/Vol] 4.0 g/dL Normal 3.5-5.7 [facility] Comment on above: Performed By: #### L [id number] ####[facility] ([facility])[address] [place] [address] ALP [Catalytic activity/Vol] 117 U/L High 34-104 [facility] Comment on above: Performed By: #### L [id number] ####[facility] ([facility])[address] [place] [address] ALT [Catalytic activity/Vol] 19 U/L Normal 7-52 [facility] Comment on above: Performed By: #### L [id number] ####[facility] ([facility])[address] [place] [address] Anion gap [Moles/Vol] 11 mmol/L Normal 7-20 [facility] Comment on above: Performed By: #### L [id number] ####[facility] ([facility])[address] [place] [address] AST [Catalytic activity/Vol] 18 U/L Normal 13-39 [facility] Comment on above: Performed By: #### L [id number] ####[facility] ([facility])[address] [place] [address] Bilirubin [Mass/Vol] 0.5 mg/dL Normal 0.3-1.0 [facility] Comment on above: Performed By: #### L [id number] ####[facility] ([facility])[address] [place] [address] Calcium [Mass/Vol] 9.9 mg/dL Normal 8.6-10.3 [facility] Comment on above: Performed By: #### L [id number] ####[facility] ([facility])[address] [place] [address] Chloride [Moles/Vol] 102 mmol/L Normal 98-107 [facility] Comment on above: Performed By: #### L [id number] ####[facility] ([facility])[address] [place] [address] CO2 [Moles/Vol] 25 mmol/L Normal 21-31 [facility] Comment on above: Performed By: #### L [id number] ####[facility] ([facility])[address] [place] [address] Creatinine [Mass/Vol] 2.03 mg/dL High 0.70-1.30 [facility] Comment on above: Performed By: #### L [id number] ####[facility] ([facility])[address] [place] [address] GLOMERULAR FILTRATION RATE ML/MIN/1.73 SQ M.PREDICTED 35.5 mL/min/1.73m*2 Low >60.0 [facility] Comment on above: Result Comment: [facility]???s estimated glomerular filtration rate (eGFR) will no longer include consideration of race in its calculation. The National Kidney Foundation???s eGFR Task Force developed new recommendations for the estimation of the glomerular filtration rate in the [place] They recommend immediate implementation of the new equation refit without the race variable in all laboratories because the calculation does not include race. In addition to not including race in the calculation and reporting, it included diversity in its development, and has acceptable performance characteristics and potential consequences that do not disproportionately affect any one group of individuals. Performed By: #### L [id number] ####[facility] ([facility])[address] [place] [address] Glucose [Mass/Vol] 264 mg/dL High 70-100 [facility] Comment on above: Performed By: #### L [id number] ####[facility] ([facility])[address] [place] [address] Potassium [Moles/Vol] 4.4 mmol/L Normal 3.5-5.1 [facility] Comment on above: Performed By: #### L [id number] ####[facility] ([facility])[address] [place] [address] Protein [Mass/Vol] 7.4 g/dL Normal 6.0-8.3 [facility] Comment on above: Performed By: #### L [id number] ####[facility] ([facility])[address] [place] [address] Sodium [Moles/Vol] 134 mmol/L Low 136-145 [facility] Comment on above: Performed By: #### L [id number] ####[facility] ([facility])[address] [place] [address] Urea nitrogen [Mass/Vol] 32 mg/dL High 7-25 [facility] Comment on above: Performed By: #### L [id number] ####[facility] ([facility])[address] [place] [address] UREA NITROGEN/CREATININE (MASS RATIO) IN SER/PLAS 15.8 Normal [facility] Comment on above: Performed By: #### L [id number] ####[facility] ([facility])[address] [place] [address] Labon 12-13-2023 Lab Normal [facility] Orders Onlyon 12-10-2023 Orders Only Normal [facility] [id number] 12-09-2023 [id number] Normal [facility] APTTon 12-09-2023 ACTIVATED PARTIAL THROMBOPLASTIN TIME IN PPP BY COAGULATION ASSAY 35.5 Seconds High 25.0-35.0 [facility] Comment on above: Result Comment: Clin ical significance of the APTT is questionable in the presence of heparin. Performed By: #### L [id number] ####[facility] ([facility])[address] [place] [address] Infusionon 12-09-2023 Infusion Normal [facility] Labon 12-09-2023 Lab Normal [facility] MRSA/MSSA DNA NASALon 2023 MRSA DNA Negative Normal Negative [facility] Comment on above: Order Comment: Testi ng methodology is an automated qualitative in vitro diagnostic test for the directdetection and differentiation of Staphylococcus aureus (SA) DNA and methicillin-resistant Staphylococcus aureus (MRSA) DNA from nasal swabs in patients at risk for nasal colonization. The test utilizes real-time polymerase chain reaction (PCR) for the amplification of MRSA/SA DNA and fluorogenic target-specific hybridization probes for the detection of the amplified DNA. A negative result does not preclude nasal colonization. Performed By: #### L [id number] ####[facility] ([facility])[address] [place] [address] MSSA DNA Positive Abnormal Negative [facility] Comment on above: Order Comment: Adilson russell methodology is an automated qualitative in vitro diagnostic test for the directdetection and differentiation of Staphylococcus aureus (SA) DNA and methicillin-resistant Staphylococcus aureus (MRSA) DNA from nasal swabs in patients at risk for nasal colonization. The test utilizes real-time polymerase chain reaction (PCR) for the amplification of MRSA/SA DNA and fluorogenic target-specific hybridization probes for the detection of the amplified DNA. A negative result does not preclude nasal colonization. Performed By: #### L [id number] ####[facility] ([facility])[address] [place] [address] Orders Onlyon 12-09-2023 Orders Only Normal [facility] PROTIME-INRon 12-09-2023 INR IN PPP BY COAGULATION ASSAY 1.16 High 0.90-1.10 [facility] Comment on above: Result Comment: ACCC P RECOMMENDED INR FOR WARFARIN THERAPY CONDITION INRPROPHYLAXIS OF VENOUS THROMBOSIS 2-3(HIGH-RISK SURGERY)TREATMENT OF VENOUS THROMBOSIS 2-3TREATMENT OF PULMONARY EMBOLISM 2-3PREVENTION OF SYSTEMIC EMBOLISM: 2-3 ACUTE MYOCARDIAL INFARCTION TISSUE HEART VALVES VALVULAR HEART DISEASE ATRIAL FIBRILLATION RECURRENT SYSTEMIC EMBOLISMMECHANICAL HEART VALVE 2.5-3.5 FROM: ORAL ANTICOAGULANTS. MECHANISM OF ACTION, CLINICAL EFFECTIVENESS, AND OPTIMAL THERAPEUTIC RANGE. CHEST 1995;108:231S-246S. Performed By: #### L [id number] ####[facility] ([facility])[address] [place] [address] PROTHROMBIN TIME (PT) IN PPP BY COAGULATION ASSAY 14.8 Seconds Normal 12.3-14.8 [facility] Comment on above: Performed By: #### L [id number] ####[facility] ([facility])[address] [place] [address] CBC WITH AUTO DIFFERENTIALon 12-08-2023 Basophils (Bld) [#/Vol] 0.04 10*3/uL Normal 0.00-0.20 [facility] Comment on above: Performed By: #### L [id number] ####[facility] ([facility])[address] [place] [address] Basophils/100 WBC (Bld) 0.6 % Normal 0.0-1.0 [facility] Comment on above: Performed By: #### L [id number] ####[facility] ([facility])[address] [place] [address] Eosinophils (Bld) [#/Vol] 0.42 10*3/uL Normal 0.00-0.50 [facility] Comment on above: Performed By: #### L [id number] ####[facility] ([facility])[address] [place] [address] Eosinophils/100 WBC (Bld) 6.0 % Normal 0.0-6.0 [facility] Comment on above: Performed By: #### L [id number] ####[facility] ([facility])[address] [place] [address] Erythrocyte distribution width (RBC) [Ratio] 14.7 % Normal 11.5-15.0 [facility] Comment on above: Performed By: #### L [id number] ####[facility] ([facility])[address] [place] [address] ERYTHROCYTE MEAN CORPUSCULAR HEMOGLOBIN CONCENTRATION (G/DL) BY AUTOMATED 33.5 g/dL Normal 32.0-35.0 [facility] Comment on above: Performed By: #### L [id number] ####[facility] ([facility])[address] [place] [address] Hematocrit (Bld) [Volume fraction] 41.2 % Normal 39.0-55.0 [facility] Comment on above: Performed By: #### L [id number] ####[facility] ([facility])[address] [place] [address] Hemoglobin (Bld) [Mass/Vol] 13.8 g/dL Normal 13.0-17.0 [facility] Comment on above: Performed By: #### L [id number] ####[facility] ([facility])[address] [place] [address] Immature granulocytes (Bld) [#/Vol] 0.02 10*3/uL Normal 0.00-0.20 [facility] Comment on above: Performed By: #### L [id number] ####[facility] ([facility])[address] [place] [address] Immature granulocytes/100 WBC (Bld) 0.3 % Normal 0.0-1.0 [facility] Comment on above: Performed By: #### L [id number] ####[facility] ([facility])[address] [place] [address] Lymphocytes (Bld) [#/Vol] 2.22 10*3/uL Normal 1.20-4.00 [facility] Comment on above: Performed By: #### L [id number] ####[facility] ([facility])[address] [place] [address] Lymphocytes/100 WBC (Bld) 31.9 % Normal 20.0-45.0 [facility] Comment on above: Performed By: #### L [id number] ####[facility] ([facility])[address] [place] [address] MCH (RBC) [Entitic mass] 28.8 pg Normal 27.0-33.0 [facility] Comment on above: Performed By: #### L [id number] ####[facility] ([facility])[address] [place] [address] MCV (RBC) [Entitic vol] 86.0 fL Normal 82.0-98.0 [facility] Comment on above: Performed By: #### L [id number] ####[facility] ([facility])[address] [address] Monocytes (Bld) [#/Vol] 0.60 10*3/uL Normal 0.10-1.00 [facility] Comment on above: Performed By: #### L [id number] ####[facility] ([facility])[address] [place] [address] Monocytes/100 WBC (Bld) 8.6 % Normal 5.0-12.0 [facility] Comment on above: Performed By: #### L [id number] ####[facility] ([facility])[address] [place] [address] Neutrophils (Bld) [#/Vol] 3.65 10*3/uL Normal 1.60-7.60 [facility] Comment on above: Performed By: #### L [id number] ####[facility] ([facility])[address] [place] [address] Neutrophils/100 WBC (Bld) 52.6 % Normal 40.0-72.0 [facility] Comment on above: Performed By: #### L [id number] ####[facility] ([facility])[address] [place] [address] NRBC (PER 100 WBCS) BY AUTOMATED COUNT 0.0 % Normal 0 [facility] Comment on above: Performed By: #### L [id number] ####[facility] ([facility])[address] [place] [address] PLATELETS (10*3/UL) IN BLOOD AUTOMATED COUNT 233 10*3/uL Normal 150-400 [facility] Comment on above: Performed By: #### L [id number] ####[facility] ([facility])[address] [place] [address] RBC (Bld) [#/Vol] 4.79 10*6/uL Normal 4.20-5.70 [facility] Comment on above: Performed By: #### L [id number] ####[facility] ([facility])[address] [place] [address] WBC (Bld) [#/Vol] 6.95 10*3/uL Normal 4.00-10.60 [facility] Comment on above: Performed By: #### L [id number] ####[facility] ([facility])[address] [place] [address] COMPREHENSIVE METABOLIC PANE Sonido 12-08-2023 Albumin [Mass/Vol] 4.0 g/dL Normal 3.5-5.7 [facility] Comment on above: Performed By: #### L [id number] ####[facility] ([facility])[address] [place] [address] ALP [Catalytic activity/Vol] 94 U/L Normal 34-104 [facility] Comment on above: Performed By: #### L [id number] ####[facility] ([facility])[address] [place] [address] ALT [Catalytic activity/Vol] 13 U/L Normal 7-52 [facility] Comment on above: Performed By: #### L [id number] ####[facility] ([facility])[address] [place] [address] Anion gap [Moles/Vol] 12 mmol/L Normal 7-20 [facility] Comment on above: Performed By: #### L [id number] ####[facility] ([facility])[address] [place] [address] AST [Catalytic activity/Vol] 14 U/L Normal 13-39 [facility] Comment on above: Performed By: #### L [id number] ####[facility] ([facility])[address] [place] [address] Bilirubin [Mass/Vol] 0.5 mg/dL Normal 0.3-1.0 [facility] Comment on above: Performed By: #### L [id number] ####[facility] ([facility])[address] [place] [address] Calcium [Mass/Vol] 10.1 mg/dL Normal 8.6-10.3 [facility] Comment on above: Performed By: #### L [id number] ####[facility] ([facility])[address] [place] [address] Chloride [Moles/Vol] 102 mmol/L Normal 98-107 [facility] Comment on above: Performed By: #### L [id number] ####[facility] ([facility])[address] [place] [address] CO2 [Moles/Vol] 24 mmol/L Normal 21-31 [facility] Comment on above: Performed By: #### L [id number] ####[facility] ([facility])[address] [place] [address] Creatinine [Mass/Vol] 1.86 mg/dL High 0.70-1.30 [facility] Comment on above: Performed By: #### L [id number] ####[facility] ([facility])[address] [place] [address] GLOMERULAR FILTRATION RATE ML/MIN/1.73 SQ M.PREDICTED 39.4 mL/min/1.73m*2 Low >60.0 [facility] Comment on above: Result Comment: [facility]???s estimated glomerular filtration rate (eGFR) will no longer include consideration of race in its calculation. The National Kidney Foundation???s eGFR Task Force developed new recommendations for the estimation of the glomerular filtration rate in the [place] They recommend immediate implementation of the new equation refit without the race variable in all laboratories because the calculation does not include race. In addition to not including race in the calculation and reporting, it included diversity in its development, and has acceptable performance characteristics and potential consequences that do not disproportionately affect any one group of individuals. Performed By: #### L [id number] ####[facility] ([facility])[address] [place] [address] Glucose [Mass/Vol] 195 mg/dL High 70-100 [facility] Comment on above: Performed By: #### L [id number] ####[facility] ([facility])[address] [place] [address] Potassium [Moles/Vol] 5.1 mmol/L Normal 3.5-5.1 [facility] Comment on above: Performed By: #### L [id number] ####[facility] ([facility])[address] [place] [address] Protein [Mass/Vol] 7.4 g/dL Normal 6.0-8.3 [facility] Comment on above: Performed By: #### L [id number] ####[facility] ([facility])[address] [place] [address] Sodium [Moles/Vol] 133 mmol/L Low 136-145 [facility] Comment on above: Performed By: #### L [id number] ####[facility] ([facility])[address] [place] [address] Urea nitrogen [Mass/Vol] 28 mg/dL High 7-25 [facility] Comment on above: Performed By: #### L [id number] ####[facility] ([facility])[address] [place] [address] UREA NITROGEN/CREATININE (MASS RATIO) IN SER/PLAS 15.1 Normal [facility] Comment on above: Performed By: #### L [id number] ####[facility] ([facility])[address] [place] [address] Follow-Upon 12-08-2023 Follow-Up Normal [facility] Labon 12-08-2023 Lab Normal [facility] T3, FREEon 12-08-2023 TRIIODOTHYRONINE (T3) FREE (PG/ML) IN SER/PLAS 2.8 pg/mL Normal 2.5-3.9 [facility] Comment on above: Performed By: #### L [id number] ####[facility] ([facility])[address] [place] [address] T4, FREEon 12-08-2023 THYROXINE (T4) FREE (NG/DL) IN SER/PLAS 0.85 ng/dL Normal 0.71-1.85 [facility] Comment on above: Performed By: #### L [id number] ####[facility] ([facility])[address] [place] [address] TSHon 12-08-2023 THYROTROPIN (MIU/L) IN SER/PLAS BY DETECTION LIMIT <= 0.05 MIU/L 1.09 mIU/L Normal 0.34-5.60 [facility] Comment on above: Performed By: #### L [id number] ####[facility] ([facility])[address] [place] [address] Orders Onlyon 12-06-2023 Orders Only [facility] Orders Onlyon 12-02-2023 Orders Only [facility] 37on 11-23-2023 37 Recommend pembrolizu mab (Keytruda) infusion every 3 weeks to begin with and can be switched to every 6 weeks if needed Keytruda can be given through peripheral IV or chemo port. Decision will be made by patient for either/ Return to clinic in 4 weeks [facility] [facility] 36on 11-11-2023 36 Pt informed [facility] 30on 11-10-2023 30 [facility] BASIC METABOLIC PANELon 10-19 Anion gap [Moles/Vol] 11 mmol/L Normal 7-20 [facility] Comment on above: Performed By: #### L [id number] ####[facility] (BEAKER)[address] [place] [address] Calcium [Mass/Vol] 9.6 mg/dL Normal 8.6-10.3 [facility] Comment on above: Performed By: #### L [id number] ####[facility] (BEAKER)[address] [place] [address] Chloride [Moles/Vol] 104 mmol/L Normal 98-107 [facility] Comment on above: Performed By: #### L [id number] ####[facility] (BEAKER)[address] [place] [address] CO2 [Moles/Vol] 22 mmol/L Normal 21-31 [facility] Comment on above: Performed By: #### L [id number] ####[facility] ([facility])[address] [place] [address] Creatinine [Mass/Vol] 1.28 mg/dL Normal 0.70-1.30 [facility] Comment on above: Performed By: #### L [id number] ####[facility] ([facility])[address] [place] [address] GLOMERULAR FILTRATION RATE ML/MIN/1.73 SQ M.PREDICTED 61.7 mL/min/1.73m*2 Normal >60.0 [facility] Comment on above: Result Comment: [facility]???s estimated glomerular filtration rate (eGFR) will no longer include consideration of race in its calculation. The National Kidney Foundation???s eGFR Task Force developed new recommendations for the estimation of the glomerular filtration rate in the [place] They recommend immediate implementation of the new equation refit without the race variable in all laboratories because the calculation does not include race. In addition to not including race in the calculation and reporting, it included diversity in its development, and has acceptable performance characteristics and potential consequences that do not disproportionately affect any one group of individuals. Performed By: #### L [id number] ####[facility] ([facility])[address] [place] [address] Glucose [Mass/Vol] 182 mg/dL High 70-100 [facility] Comment on above: Performed By: #### L [id number] ####[facility] ([facility])[address] [place] [address] Potassium [Moles/Vol] 4.7 mmol/L Normal 3.5-5.1 [facility] Comment on above: Result Comment: M-CH EMISTRY SPECIMEN MODERATELY HEMOLYZED RESULTS MAY NOT BE ACCURATE Performed By: #### L [id number] ####[facility] ([facility])[address] [place] [address] Sodium [Moles/Vol] 132 mmol/L Low 136-145 [facility] Comment on above: Performed By: #### L [id number] ####[facility] (BEAKER)[address] [place] [address] Urea nitrogen [Mass/Vol] 16 mg/dL Normal 7-25 [facility] Comment on above: Performed By: #### L [id number] ####[facility] (BEAKER)[address] [place] [address] UREA NITROGEN/CREATININE (MASS RATIO) IN SER/PLAS 12.5 Normal [facility] Comment on above: Performed By: #### L [id number] ####[facility] [address] CBCon 11-10-2023 Erythrocyte distribution width (RBC) [Ratio] 14.2 % Normal 11.5-15.0 [facility] Comment on above: Performed By: #### L [id number] ####[facility] ([facility])[address] [address] ERYTHROCYTE MEAN CORPUSCULAR HEMOGLOBIN CONCENTRATION (G/DL) BY AUTOMATED 33.4 g/dL Normal 32.0-35.0 [facility] Comment on above: Performed By: #### L [id number] ####[facility] ([facility] [address] Hematocrit (Bld) [Volume fraction] 43.7 % Normal 39.0-55.0 [facility] Comment on above: Performed By: #### L [id number] ####[facility] ([facility] [address] Hemoglobin (Bld) [Mass/Vol] 14.6 g/dL Normal 13.0-17.0 [facility] Comment on above: Performed By: #### L [id number] ####[facility] (BEAKER)[address] [address] MCH (RBC) [Entitic mass] 29.0 pg Normal 27.0-33.0 [facility] Comment on above: Performed By: #### L [id number] ####[facility] (BEAKER)[address] [address] MCV (RBC) [Entitic vol] 86.9 fL Normal 82.0-98.0 [facility] Comment on above: Performed By: #### L [id number] ####[facility] ([facility])[address] [place] [address] PLATELETS (10*3/UL) IN BLOOD AUTOMATED COUNT 248 10*3/uL Normal 150-400 [facility] Comment on above: Performed By: #### L [id number] ####[facility] ([facility])[address] [place] [address] RBC (Bld) [#/Vol] 5.03 10*6/uL Normal 4.20-5.70 [facility] Comment on above: Performed By: #### L [id number] ####[facility] ([facility])[address] [place] [address] WBC (Bld) [#/Vol] 10.05 10*3/uL Normal 4.00-10.60 [facility] Comment on above: Performed By: #### L [id number] ####[facility] ([facility])[address] [place] [address] DSon 11-10-2023 DS Normal [facility] MAGNESIUMon 11-10-2023 Magnesium [Mass/Vol] 1.6 mg/dL Low 1.9-2.7 [facility] Comment on above: Performed By: #### L [id number] ####[facility] ([facility])[address] [place] [address] NURSNOTEon 11-10-2023 NURSNOTE Discharge paperwork reviewed with patient. All questions answered. Patient and verbalized understanding. Normal [facility] PHOSPHORUSon 11-10-2023 Magnesium [Mass/Vol] 3.6 mg/dL Normal 2.5-5.0 [facility] Comment on above: Performed By: #### L [id number] ####[facility] ([facility])[address] [place] [address] POCT GLUCOSE METER UNSOLICIT ED RESULTSon 11-10-2023 Glucose [Mass/Vol] 135 mg/dL High 70-105 [facility] Comment on above: Order Comment: Waive d Testing in the ED is performed under the ED CLIA certificate #[id number]. Result Comment: pgom ez Performed By: #### L [id number] ####[facility] (BEAKER)[address] [place] [address] Glucose [Mass/Vol] 220 mg/dL High 70-105 [facility] Comment on above: Order Comment: Waive d Testing in the ED is performed under the ED CLIA certificate #[id number]. Result Comment: pgom ez Performed By: #### L [id number] ####[facility] (BEAKER)[address] [address] Glucose [Mass/Vol] 233 mg/dL High 70-105 [facility] Comment on above: Order Comment: Waive d Testing in the ED is performed under the ED CLIA certificate #[id number]. Result Comment: pgom ez Performed By: #### L [id number] ####[facility] (BEAKER)[address] [place] [address] [place] [address] [id number] 11-09-2023 [id number] Normal [facility] ANESon 11-09-2023 ANES Normal [facility] ANES Normal [facility] ARTERIAL BLOOD GAS WITH CO-O XIMETRYon 11-09-2023 Base excess Calc (Bld) [Moles/Vol] -3.7000 mmol/L Low -2.0-3.0 [facility] Comment on above: Performed By: #### L [id number] ####[facility] [id number] [place] [address] [facility] CARBOXYHEMOGLOBIN/HEMOG LOBIN TOTAL % IN BLOOD 5.0 % High 0.0-3.0 [facility] Comment on above: Performed By: #### L [id number] ####[facility] [id number] [place] [address] [place] CO2 (Bld) [Partial pressure] 45 mm[Hg] Normal 35-48 [facility] Comment on above: Performed By: #### L [id number] ####[facility] [id number] [place] [address] [facility] DEOXYGENATED HEMOGLOBIN IN BLOOD 0.0 % Low 1-5 [facility] Comment on above: Performed By: #### L [id number] ####[facility] [id number] [place] [address] [facility] HCO3 (Bld) [Moles/Vol] 22.7 mmol/L Normal 21.0-28.0 [facility] Comment on above: Performed By: #### L [id number] ####[facility] [id number] [place] [address] [facility] Hemoglobin (Bld) [Mass/Vol] 13.1 g/dL Normal 11.7-17.4 [facility] Comment on above: Performed By: #### L [id number] ####[facility] [id number] [place] [address] [facility] METHEMOGLOBIN/100 IN BLOOD 0.7 % Normal 0.0-1.5 [facility] Comment on above: Performed By: #### L [id number] ####[facility] [id number] [place] [address] [facility] Oxygen (Bld) [Partial pressure] 195 mm[Hg] High 83-100 [facility] Comment on above: Performed By: #### L [id number] ####[facility] [id number] [place] [address] [facility] OXYGEN SATURATION (%) IN ARTERIAL BLOOD 100.0 % High 94.0-98.0 [facility] Comment on above: Performed By: #### L [id number] ####[facility] [id number] [place] [address] [facility] OXYGENATED HEMOGLOBIN IN BLOOD 94.3 % Normal 90.0-95.0 [facility] Comment on above: Performed By: #### L [id number] ####[facility] [id number] [place] [address] [facility] pH (Bld) 7.31 [pH] Low 7.35-7.45 [facility] Comment on above: Performed By: #### L [id number] ####[facility] [id number] [place] [address] [facility] SOURCE OF OXYGEN Vent Normal [facility] Comment on above: Performed By: #### L [id number] ####[facility] [id number] [place] [address] [facility] BASIC METABOLIC PANELon - Anion gap [Moles/Vol] 12 mmol/L Normal 7-20 [facility] Comment on above: Performed By: #### L [id number] ####[facility] ([facility] [place] [address] Calcium [Mass/Vol] 9.2 mg/dL Normal 8.6-10.3 [facility] Comment on above: Performed By: #### L [id number] ####[facility] (BEAKER)[address] [place] [address] Chloride [Moles/Vol] 104 mmol/L Normal 98-107 [facility] Comment on above: Performed By: #### L [id number] ####[facility] (BEAKER)[address] [place] [address] CO2 [Moles/Vol] 23 mmol/L Normal 21-31 [facility] Comment on above: Performed By: #### L [id number] ####[facility] (BEAKER)[address] [place] [address] Creatinine [Mass/Vol] 1.07 mg/dL Normal 0.70-1.30 [facility] Comment on above: Performed By: #### L [id number] ####[facility] ([facility] [place] [address] GLOMERULAR FILTRATION RATE ML/MIN/1.73 SQ M.PREDICTED 76.5 mL/min/1.73m*2 Normal >60.0 [facility] Comment on above: Result Comment: [facility]???s estimated glomerular filtration rate (eGFR) will no longer include consideration of race in its calculation. The National Kidney Foundation???s eGFR Task Force developed new recommendations for the estimation of the glomerular filtration rate in the [place] They recommend immediate implementation of the new equation refit without the race variable in all laboratories because the calculation does not include race. In addition to not including race in the calculation and reporting, it included diversity in its development, and has acceptable performance characteristics and potential consequences that do not disproportionately affect any one group of individuals. Performed By: #### L [id number] ####[facility] ([facility])[address] [place] [address] Glucose [Mass/Vol] 271 mg/dL High 70-100 [facility] Comment on above: Performed By: #### L [id number] ####[facility] ([facility] [place] [address] Potassium [Moles/Vol] 3.9 mmol/L Normal 3.5-5.1 [facility] Comment on above: Performed By: #### L [id number] ####[facility] ([facility] [place] [address] Sodium [Moles/Vol] 135 mmol/L Low 136-145 [facility] Comment on above: Performed By: #### L [id number] ####[facility] (BEAKER)[address] [place] [address] Urea nitrogen [Mass/Vol] 19 mg/dL Normal 7-25 [facility] Comment on above: Performed By: #### L [id number] ####[facility] ([facility] [place] [address] UREA NITROGEN/CREATININE (MASS RATIO) IN SER/PLAS 17.8 Normal [facility] Comment on above: Performed By: #### L [id number] ####[facility] ([facility] [place] [address] CALCIUM, IONIZEDon 4 CALCIUM IONIZED (MMOL/L) IN BLOOD 1.28 mmol/L Normal 1.15-1.33 [facility] Comment on above: Performed By: #### C ALCIUM, IONIZED ####[facility] RES[facility] [id number] [place] [address] [place] CBCon 11-09-2023 Erythrocyte distribution width (RBC) [Ratio] 14.1 % Normal 11.5-15.0 [facility] Comment on above: Performed By: #### L [id number] ####[facility] ([facility] [place] [address] ERYTHROCYTE MEAN CORPUSCULAR HEMOGLOBIN CONCENTRATION (G/DL) BY AUTOMATED 33.2 g/dL Normal 32.0-35.0 [facility] Comment on above: Performed By: #### L [id number] ####[facility] ([facility])[address] [place] [address] Hematocrit (Bld) [Volume fraction] 41.6 % Normal 39.0-55.0 [facility] Comment on above: Performed By: #### L [id number] ####[facility] ([facility] [place] [address] Hemoglobin (Bld) [Mass/Vol] 13.8 g/dL Normal 13.0-17.0 [facility] Comment on above: Performed By: #### L [id number] ####[facility] (BEAKER)[address] [place] [address] MCH (RBC) [Entitic mass] 29.2 pg Normal 27.0-33.0 [facility] Comment on above: Performed By: #### L [id number] ####[facility] (BEAKER)[address] [place] [address] MCV (RBC) [Entitic vol] 88.1 fL Normal 82.0-98.0 [facility] Comment on above: Performed By: #### L [id number] ####[facility] (BEAKER)[address] [place] [address] PLATELETS (10*3/UL) IN BLOOD AUTOMATED COUNT 252 10*3/uL Normal 150-400 [facility] Comment on above: Performed By: #### L [id number] ####[facility] ([facility] [place] [address] RBC (Bld) [#/Vol] 4.72 10*6/uL Normal 4.20-5.70 [facility] Comment on above: Performed By: #### L [id number] ####[facility] ([facility])[address] [place] [address] WBC (Bld) [#/Vol] 8.72 10*3/uL Normal 4.00-10.60 [facility] Comment on above: Performed By: #### L [id number] ####[facility] ([facility])[address] [place] [address] HEMOGLOBIN A1Con 11-09-2023 Glucose [Mass/Vol] 203 mg/dL Normal [facility] Comment on above: Performed By: #### L [id number] ####[facility] ([facility])[address] [place] [address] HbA1c (Bld) [Mass fraction] 8.7 % High 4.0-6.0 [facility] Comment on above: Performed By: #### L [id number] ####[facility] ([facility])[address] [place] [address] HISTOLOGY - TISSUE EXAMon LAB AP CASE REPORT Normal [facility] Comment on above: Order Comment: Pre-o p diagnosis:Renal mass [N28.89] Result Comment: Surg ical Pathology Case: [id number] Provider: Walt Araujo MD Collected: 11/09/2023 1127Ordering Location: [facility] Main Operating Room Received: 11/09/2023 1138Pathologist: Darinel Florez MDIntraop: TIA Merazpecimen: Kidney, LEFT NEPHRECTOMY Performed By: #### L [id number] ####[facility] ([facility])[address] [place] [address] LAB AP CLINICAL INFORMATION Normal [facility] Comment on above: Order Comment: Pre-o p diagnosis:Renal mass [N28.89] Result Comment: Post -Op [id number] - Renal mass [ICD-10-CM] Performed By: #### L [id number] ####[facility] ([place])[address] [place] [address] LAB AP GROSS DESCRIPTION A. Kidney. Normal [facility] Comment on above: Order Comment: Pre-o p diagnosis:Renal mass [N28.89] Result Comment: Part A is received fresh for intraoperative consultation labeled with patient's name Yoel Van and left nephrectomy. It consists of a 505 g, 22.5 x 11.5 x 6.3 cm left radical nephrectomy specimen which includes kidney, adrenal gland, perirenal fat, and Gerota's fascia. The kidney proper is received with an intact capsule measuring 11.7 x 6.0 x 5.5 cm, the adrenal gland measures 5.0 x 2.1 x 1.6 cm, and the Gerota's fascia measures 13.3 x 7.8 cm. The attached renal vein, renal artery, and ureter are received stapled. The renal vein measures 1.5 x 1.3 cm, the renal artery measures 1.0 x 0.3 cm, and the ureter measures 9.0 x 0.4 cm.Sectioning of the kidney reveals a 7.3 x 3.1 x 2.2 cm circumscribed bhakta-yellow tumor with areas of hemorrhage at the mid-upper pole which protrudes into the renal vein lumen. The perirenal fat and Gerota's fascia overlying the tumor is inked green. The tumor is 9.0 cm from the ureter resection margin, 1.0 cm from the artery resection margin, 0.9 cm from Gerota's fascia, and the tumor involves the renal vein lumen 1.5 cm away from the resection margin. The tumor does not grossly involve the ureter or the renal artery. The tumor abuts the renal capsule, but grossly does not extends through it. The tumor does not involve the perirenal fat or Gerota's fascia. The remainder of the renal parenchyma is bosch-pink, smooth, and glistening with intact corticomedullary junctions.The adrenal gland is sectioned to reveal an unremarkable bosch-yellow and bosch-reynaga medulla and cortex. The tumor is 2.3 cm away from the adrenal gland. There is 1 possible pale-reynaga lymph node identified near the hilum. No other lesions are identified. Digital photographs are taken. Account Services Manager sections are submitted as follows:A1: Renal vein margin, en faceA2: Renal artery margin and ureter margin, en faceA3-A5: Tumor with renal sinus fatA6-A7: Tumor involving renal veinA8-A9: Tumor to closest renal capsule with attached perirenal fat and closest Gerota's bqijgyE60: Tumor to uninvolved vkgujgvshiQ60: Uninvolved parenchyma, lower poleA12: Adrenal amzbgD32: 1 possible lymph node, intactElmary Sweet, Pathologists' Senior Laboratory Technician Mireya Calderon, Pathologists' Senior Laboratory Technician Performed By: #### L [id number] ####[facility] ([facility])[address] [place] [facility] [place] [address] LAB AP INTRAOPERATIVE CONSULTATION A. Kidney. Normal [facility] Comment on above: Order Comment: Pre-o p diagnosis:Renal mass [N28.89] Result Comment: Resu lted 11:39 AM 11/09/23Jasen left, radical nephrectomy: - Renal vein margin (staple line) is grossly uninvolved by tumor thrombusIntraoperative Consultation by: Mindy Lilly MD Performed By: #### L [id number] ####[facility] ([facility])[address] [place] [facility] [place] [address] LAB AP MICROSCOPIC DESCRIPTION Microscopic examination performed. [facility] Comment on above: Order Comment: Pre-o p diagnosis:Renal mass [N28.89] Performed By: #### L [id number] ####[facility] ([facility])[address] [place] [address] LAB AP REPORT FINAL DIAGNOSIS NARRATIVE [facility] Comment on above: Order Comment: Pre-o p diagnosis:Renal mass [N28.89] Result Comment: Beatrice dewey, left, radical nephrectomy: - Clear-cell renal cell carcinoma, grade 2, WHO. - Size in greatest dimension, 7.3 cm. - Carcinoma extends into the renal vein. - Lymphovascular invasion of vascular channels within the renal sinus identified. - All margins free of carcinoma. - Adrenal gland free of tumor.See cancer protocol. Performed By: #### L [id number] ####[facility] ([facility])[address] [place] [address] LAB AP SYNOPTIC CHECKLIST Normal [facility] Comment on above: Order Comment: Pre-o p diagnosis:Renal mass [N28.89] Result Comment: KIDYanira EY: NephrectomyKIDNEY: NEPHRECTOMY - All [id number] Edition - Protocol posted: 04/16/2021PECIMEN Procedure: Radical nephrectomy Specimen Laterality: LeftTUMOR Tumor Focality: Unifocal Tumor Site: Upper pole Tumor Site: Middle Tumor Size: Greatest Dimension (Centimeters): 7.3 cm Histologic Type: Clear cell renal cell carcinoma Histologic Grade (WHO / ISUP): G2 (nucleoli conspicuous and eosinophilic at 400x magnification, visible but not prominent at 100x magnification) Tumor Extent: Extends into renal sinus Tumor Extent: Extends into major vein (renal vein or its segmental branches, inferior vena cava) Sarcomatoid Features: Not identified Rhabdoid Features: Not identified Tumor Necrosis: Not identified Lymphovascular Invasion: PresentMARGINS Margin Status: All margins negative for invasive carcinomaREGIONAL LYMPH NODES Regional Lymph Node Status: Not applicable (no regional lymph nodes submitted or found)PATHOLOGIC STAGE CLASSIFICATION (pTNM, AJCC 8th Edition) Reporting of pT, pN, and (when applicable) pM categories is based on information available to the pathologist at the time the report is issued. As per the AJCC (Chapter 1, 8th Ed.) it is the managing physician???s responsibility to establish the final pathologic stage based upon all pertinent information, including but potentially not limited to this pathology report. Primary Tumor (pT): pT3a Regional Lymph Nodes (pN): pN not assigned (no nodes submitted or found)ADDITIONAL FINDINGS Additional Findings in Nonneoplastic Kidney: Glomerular disease: Predominantly subcapsular glomerulosclerosis Additional Findings in Nonneoplastic Kidney: Tubulointerstitial disease: Mild interstitial fibrosis and tubular atrophy Performed By: #### L [id number] ####[facility] ([facility])[address] [place] [address] HPon 11-09-2023 HP Normal [facility] MAGNESIUMon 11-09-2023 Magnesium [Mass/Vol] 1.4 mg/dL Low 1.9-2.7 [facility] Comment on above: Performed By: #### L [id number] ####[facility] LAB (Loudr)[address] [place] [address] OPNOTEon 11-09-2023 OPNOTE Normal [facility] POCT GLUCOSE METER UNSOLICIT ED RESULTSon 11-09-2023 Glucose [Mass/Vol] 147 mg/dL High 70-105 [facility] Comment on above: Order Comment: Waive d Testing in the ED is performed under the ED CLIA certificate #[id number]. Result Comment: [email or web address] Performed By: #### L [id number] ####[facility] ([facility])[address] [place] [address] Glucose [Mass/Vol] 165 mg/dL High 70-105 [facility] Comment on above: Order Comment: Waive d Testing in the ED is performed under the ED CLIA certificate #[id number]. Result Comment: [email or web address] al Performed By: #### L [id number] ####[facility] ([employer])[address] [facility] [place] [address] Glucose [Mass/Vol] 265 mg/dL High 70-105 [facility] Comment on above: Order Comment: Waive d Testing in the ED is performed under the ED CLIA certificate #[id number]. Result Comment: [email or web address] e Performed By: #### L [id number] ####[facility] ([employer])[address] [place] [address] Glucose [Mass/Vol] 195 mg/dL High 70-105 [facility] Comment on above: Order Comment: Waive d Testing in the ED is performed under the ED CLIA certificate #[id number]. Result Comment: ltol [email or web address] Performed By: #### L [id number] ####[facility] ([facility])[address] [place] [address] POTASSIUM, WHOLE BLOODon Potassium [Moles/Vol] 4.1 mmol/L Normal 3.5-5.1 [facility] Comment on above: Performed By: #### P OTASSIUM, WHOLE BLOOD ####[facility] [id number] [place] [address] [place] SODIUM, WHOLE BLOODon 2023 SODIUM, WHOLE BLOOD 134 Low 136-145 [facility] Comment on above: Performed By: #### S ODIUM, WHOLE BLOOD ####[facility] [id number] [place] [address] [place] TYPE AND SCREENon 11-09-2023 AB SCREEN Negative Normal [facility] Comment on above: Performed By: #### L [id number] ####[facility], ABO group Nom (Bld) A Normal [facility] Comment on above: Performed By: #### L [id number] ####[facility], RH TYPE IN BLOOD Positive Normal [facility] Comment on above: Performed By: #### L [id number] ####[facility], [id number] 11-03-2023 [id number] Normal [facility] Orders Onlyon 11-02-2023 Orders Only Normal [facility] Documentationon 10-27-2023 Documentation Normal [facility] Orders Onlyon 10-27-2023 Orders Only Normal [facility] Telephoneon 10-27-2023 Telephone Normal [facility] CT CHEST WO IV CONTRASTon CT CHEST WO IV CONTRAST [facility]2023 36 I called urology and received the clearance. Normal [facility] 36 Normal [facility] Orders Onlyon 10-20-2023 Orders Only Normal [facility] APTTon 10-07-2023 ACTIVATED PARTIAL THROMBOPLASTIN TIME IN PPP BY COAGULATION ASSAY 31.3 Seconds Normal 25.0-35.0 [facility] Comment on above: Result Comment: Clin ical significance of the APTT is questionable in the presence of heparin. Performed By: #### L [id number] ####[facility] (BEAKER)[address] [place] [address] CBC WITH AUTO DIFFERENTIALon 10-07-2023 Basophils (Bld) [#/Vol] 0.05 10*3/uL Normal 0.00-0.20 [facility] Comment on above: Performed By: #### L [id number] ####[facility] (BEAKER)[address] [place] [address] Basophils/100 WBC (Bld) 0.8 % Normal 0.0-1.0 [facility] Comment on above: Performed By: #### L [id number] ####[facility] (BEAKER)[address] [place] [address] Eosinophils (Bld) [#/Vol] 0.14 10*3/uL Normal 0.00-0.50 [facility] Comment on above: Performed By: #### L [id number] ####[facility] (BEAKER)[address] [place] [address] Eosinophils/100 WBC (Bld) 2.2 % Normal 0.0-6.0 [facility] Comment on above: Performed By: #### L [id number] ####[facility] (BEAKER)[address] [place] [address] Erythrocyte distribution width (RBC) [Ratio] 14.5 % Normal 11.5-15.0 [facility] Comment on above: Performed By: #### L [id number] ####[facility] (BEAKER)[address] [place] [address] ERYTHROCYTE MEAN CORPUSCULAR HEMOGLOBIN CONCENTRATION (G/DL) BY AUTOMATED 31.9 g/dL Low 32.0-35.0 [facility] Comment on above: Performed By: #### L [id number] ####[facility] (BEAKER)[address] [place] [address] Hematocrit (Bld) [Volume fraction] 42.9 % Normal 39.0-55.0 [facility] Comment on above: Performed By: #### L [id number] ####[facility] (BEAKER)[address] [place] [address] Hemoglobin (Bld) [Mass/Vol] 13.7 g/dL Normal 13.0-17.0 [facility] Comment on above: Performed By: #### L [id number] ####[facility] (BEAKER)[address] [place] [address] Immature granulocytes (Bld) [#/Vol] 0.02 10*3/uL Normal 0.00-0.20 [facility] Comment on above: Performed By: #### L [id number] ####[facility] (BEAKER)[address] [place] [address] Immature granulocytes/100 WBC (Bld) 0.3 % Normal 0.0-1.0 [facility] Comment on above: Performed By: #### L [id number] ####[facility] (BEAKER)[address] [place] [address] Lymphocytes (Bld) [#/Vol] 1.59 10*3/uL Normal 1.20-4.00 [facility] Comment on above: Performed By: #### L [id number] ####[facility] (BEAKER)[address] [place] [address] Lymphocytes/100 WBC (Bld) 25.5 % Normal 20.0-45.0 [facility] Comment on above: Performed By: #### L [id number] ####[facility] (BEAKER)[address] [place] [address] MCH (RBC) [Entitic mass] 29.3 pg Normal 27.0-33.0 [facility] Comment on above: Performed By: #### L [id number] ####[facility] (BEAKER)[address] [place] [address] MCV (RBC) [Entitic vol] 91.9 fL Normal 82.0-98.0 [facility] Comment on above: Performed By: #### L [id number] ####[facility] (BEAKER)[address] [place] [address] Monocytes (Bld) [#/Vol] 0.45 10*3/uL Normal 0.10-1.00 [facility] Comment on above: Performed By: #### L [id number] ####[facility] ([facility] [place] [address] Monocytes/100 WBC (Bld) 7.2 % Normal 5.0-12.0 [facility] Comment on above: Performed By: #### L [id number] ####[facility] ([facility])[address] [place] [address] Neutrophils (Bld) [#/Vol] 3.99 10*3/uL Normal 1.60-7.60 [facility] Comment on above: Performed By: #### L [id number] ####[facility] ([facility])[address] [place] [address] Neutrophils/100 WBC (Bld) 64.0 % Normal 40.0-72.0 [facility] Comment on above: Performed By: #### L [id number] ####[facility] ([facility])[address] [place] [address] NRBC (PER 100 WBCS) BY AUTOMATED COUNT 0.0 % Normal 0 [facility] Comment on above: Performed By: #### L [id number] ####[facility] ([facility] [place] [address] PLATELETS (10*3/UL) IN BLOOD AUTOMATED COUNT 301 10*3/uL Normal 150-400 [facility] Comment on above: Performed By: #### L [id number] ####[facility] ([facility] [place] [address] RBC (Bld) [#/Vol] 4.67 10*6/uL Normal 4.20-5.70 [facility] Comment on above: Performed By: #### L [id number] ####[facility] (BEAKER)[address] [place] [address] WBC (Bld) [#/Vol] 6.24 10*3/uL Normal 4.00-10.60 [facility] Comment on above: Performed By: #### L [id number] ####[facility] ([facility])[address] [place] [address] COMPREHENSIVE METABOLIC PANE Sonido 10-07-2023 Albumin [Mass/Vol] 4.1 g/dL Normal 3.5-5.7 [facility] Comment on above: Performed By: #### L [id number] ####[facility] ([facility])[address] [place] [address] ALP [Catalytic activity/Vol] 98 U/L Normal 34-104 [facility] Comment on above: Performed By: #### L [id number] ####[facility] ([facility])[address] [place] [address] ALT [Catalytic activity/Vol] 15 U/L Normal 7-52 [facility] Comment on above: Performed By: #### L [id number] ####[facility] ([facility])[address] [place] [address] Anion gap [Moles/Vol] 11 mmol/L Normal 7-20 [facility] Comment on above: Performed By: #### L [id number] ####[facility] ([facility])[address] [place] [address] AST [Catalytic activity/Vol] 14 U/L Normal 13-39 [facility] Comment on above: Performed By: #### L [id number] ####[facility] ([facility])[address] [place] [address] Bilirubin [Mass/Vol] 0.5 mg/dL Normal 0.3-1.0 [facility] Comment on above: Performed By: #### L [id number] ####[facility] ([facility])[address] [place] [address] Calcium [Mass/Vol] 10.7 mg/dL High 8.6-10.3 [facility] Comment on above: Performed By: #### L [id number] ####[facility] ([facility])[address] [place] [address] Chloride [Moles/Vol] 103 mmol/L Normal 98-107 [facility] Comment on above: Performed By: #### L [id number] ####[facility] ([facility])[address] [place] [address] CO2 [Moles/Vol] 27 mmol/L Normal 21-31 [facility] Comment on above: Performed By: #### L [id number] ####[facility] ([facility])[address] [place] [address] Creatinine [Mass/Vol] 1.13 mg/dL Normal 0.70-1.30 [facility] Comment on above: Performed By: #### L [id number] ####[facility] ([facility])[address] [place] [address] GLOMERULAR FILTRATION RATE ML/MIN/1.73 SQ M.PREDICTED 71.7 mL/min/1.73m*2 Normal >60.0 [facility] Comment on above: Result Comment: [facility]???s estimated glomerular filtration rate (eGFR) will no longer include consideration of race in its calculation. The National Kid[employer] Foundation???s eGFR Task Force developed new recommendations for the estimation of the glomerular filtration rate in the [place] They recommend immediate implementation of the new equation refit without the race variable in all laboratories because the calculation does not include race. In addition to not including race in the calculation and reporting, it included diversity in its development, and has acceptable performance characteristics and potential consequences that do not disproportionately affect any one group of individuals. Performed By: #### L [id number] ####[facility] ([facility])[address] [place] [address] Glucose [Mass/Vol] 312 mg/dL High 70-100 [facility] Comment on above: Performed By: #### L [id number] ####[facility] ([facility])[address] [place] [address] Potassium [Moles/Vol] 4.5 mmol/L Normal 3.5-5.1 [facility] Comment on above: Performed By: #### L [id number] ####[facility] ([facility] [place] [address] Protein [Mass/Vol] 7.1 g/dL Normal 6.0-8.3 [facility] Comment on above: Performed By: #### L [id number] ####[facility] ([facility])[address] [place] [address] Sodium [Moles/Vol] 136 mmol/L Normal 136-145 [facility] Comment on above: Performed By: #### L [id number] ####[facility] ([facility])[address] [place] [address] Urea nitrogen [Mass/Vol] 11 mg/dL Normal 7-25 [facility] Comment on above: Performed By: #### L [id number] ####[facility] ([facility])[address] [place] [address] UREA NITROGEN/CREATININE (MASS RATIO) IN SER/PLAS 9.7 Normal [facility] Comment on above: Performed By: #### L [id number] ####[facility] ([facility])[address] [place] [address] CT ABDOMEN PELVIS WO IV CONT RASTon 10-07-2023 CT ABDOMEN PELVIS WO IV CONTRAST Normal [facility] FERRITINon 10-07-2023 FERRITIN (NG/ML) IN SER/PLAS 168.0 ng/mL Normal 24.0-336.0 [facility] Comment on above: Performed By: #### L [id number] ####[facility] ([facility])[address] [place] [address] FOLATEon 10-07-2023 FOLATE (NG/ML) IN SER/PLAS 14.67 ng/mL Normal 6.6-1000 [facility] Comment on above: Performed By: #### L [id number] ####[facility] ([facility])[address] [place] [address] IRON AND TIBCon 10-07-2023 IRON (UG/DL) IN SER/PLAS 24 ug/dL Low 50-212 [facility] Comment on above: Performed By: #### L [id number] ####[facility] (BEAKER)[address] [facility] [address] IRON BINDING CAPACITY (UG/DL) IN SER/PLAS 249 ug/dL Low 250-450 [facility] Comment on above: Performed By: #### L [id number] ####[facility] (BEAKER)[address] [address] IRON BINDING CAPACITY.UNSATURATED (UG/DL) IN SER/PLAS 225.0 ug/dL Normal 155.0-355. 0 [facility] Comment on above: Performed By: #### L [id number] ####[facility] (BEAKER)[address] [address] IRON SATURATION (%) IN SER/PLAS 10 % Low 20-50 [facility] Comment on above: Performed By: #### L [id number] ####[facility] (BEAKER)[address] [place] [address] Labon 10-07-2023 Lab Normal [facility] PROTIME-INRon 10-07-2023 INR IN PPP BY COAGULATION ASSAY 1.02 Normal 0.90-1.10 [facility] Comment on above: Result Comment: ACCC P RECOMMENDED INR FOR WARFARIN THERAPY CONDITION INRPROPHYLAXIS OF VENOUS THROMBOSIS 2-3(HIGH-RISK SURGERY)TREATMENT OF VENOUS THROMBOSIS 2-3TREATMENT OF PULMONARY EMBOLISM 2-3PREVENTION OF SYSTEMIC EMBOLISM: 2-3 ACUTE MYOCARDIAL INFARCTION TISSUE HEART VALVES VALVULAR HEART DISEASE ATRIAL FIBRILLATION RECURRENT SYSTEMIC EMBOLISMMECHANICAL HEART VALVE 2.5-3.5 FROM: ORAL ANTICOAGULANTS. MECHANISM OF ACTION, CLINICAL EFFECTIVENESS, AND OPTIMAL THERAPEUTIC RANGE. CHEST 1995;108:231S-246S. Performed By: #### L [id number] ####[facility] ([facility])[address] [place] [address] PROTHROMBIN TIME (PT) IN PPP BY COAGULATION ASSAY 13.4 Seconds Normal 12.3-14.8 [facility] Comment on above: Performed By: #### L [id number] ####[facility] ([facility])[address] [place] [address] VITAMIN B12on 10-07-2023 Cobalamin (Vitamin B12) [Mass/Vol] 596 pg/mL Normal 180-914 [facility] Comment on above: Result Comment: REFE RENCE RANGES:180-914 pg/mL [id number] pg/mL Indeterminate<145 pg/mL Deficient Performed By: #### L [id number] ####[facility] ([facility])[address] [place] [address] 37on 10-06-2023 37 Perform iron studies , b12, folate levesl Return to clinic 2 weeks after kidney surgery (November 09) Normal [facility] Follow-Upon 09-16-2023 Follow-Up Normal [facility] MICROALBUMIN, RAND URon 02-0 mALB 26.0 mg/L Normal <=30.0 [facility] Comment on above: Performed By: #### P T, PTT #### [facility] [address] [place] [address] Dr. Mani Carpio CBC AUTO DIFFon 11-18-2022 BASO # 0.1 103/ul Normal 0.0-0.1 [facility] Comment on above: Performed By: #### P T, PTT #### [facility] [address] [place] [address] Dr. Mani Carpio Basophils/100 WBC (Bld) 0.4 % Normal 0.2-2.0 [facility] Comment on above: Performed By: #### P T, PTT #### [facility] [address] [place] [address] Dr. Mani Carpio EO # 0.1 103/ul Normal 0.0-0.7 [facility] Comment on above: Performed By: #### P T, PTT #### [facility] [address] [place] [address] Dr. Mani Carpio Eosinophils/100 WBC (Bld) 0.8 % Critically low 0.9-7.0 [facility] Comment on above: Performed By: #### P T, PTT #### [facility] [address] [place] [address] Dr. Mani Carpio Erythrocyte distribution width (RBC) [Ratio] 16.2 % Critically high 11.0-15.0 [facility] Comment on above: Performed By: #### P T, PTT #### [facility] [address] [place] [address] Dr. Mani Carpio Hematocrit (Bld) [Volume fraction] 41.3 % Critically low 42.0-54.0 [facility] Comment on above: Performed By: #### P T, PTT #### [facility] [address] [place] [address] Dr. Mani Carpio Hemoglobin (Bld) [Mass/Vol] 13.0 g/dL Critically low 14.0-18.0 [facility] Comment on above: Performed By: #### P T, PTT #### [facility] [address] [place] [address] Dr. Mani Carpio IG # 0.05 10e3/ul Critically high 0.00-0.03 [facility] Comment on above: Performed By: #### P T, PTT #### [facility] [address] [place] [address] Dr. Mani Carpio IG % 0.4 % Normal 0.0-0.5 [facility] Comment on above: Performed By: #### P T, PTT #### [facility] [address] [place] [address] Dr. Mani Carpio LYMPH # 2.0 103/ul Normal 1.2-3.8 [facility] Comment on above: Performed By: #### P T, PTT #### [facility] [address] [place] [address] Dr. Mani Carpio Lymphocytes/100 WBC (Bld) 18.1 % Critically low 20.5-60.0 [facility] Comment on above: Performed By: #### P T, PTT #### [facility] [address] [place] [address] Dr. Mani Carpio MANUAL DIFF REQ NO Normal [facility] Comment on above: Performed By: #### P T, PTT #### [facility] [address] [place] [address] Dr. Mani Carpio MCH (RBC) [Entitic mass] 29.7 pg Normal 25.9-34.0 [facility] Comment on above: Performed By: #### P T, PTT #### [facility] [address] [place] [address] Dr. Mani Carpio MCHC (RBC) [Mass/Vol] 31.5 g/dL Normal 29.9-35.2 [facility] Comment on above: Performed By: #### P T, PTT #### [facility] [address] [place] [address] Dr. Mani Carpio MCV (RBC) [Entitic vol] 94.3 fL Critically high 80.0-94 .0 [facility] Comment on above: Performed By: #### P T, PTT #### [facility] [address] [place] [address] Dr. Mani Carpio MONO # 0.7 103/ul Normal 0.3-0.8 [facility] Comment on above: Performed By: #### P T, PTT #### [facility] [address] [place] [address] Dr. Mani Carpio Monocytes/100 WBC (Bld) 5.9 % Normal 1.7-12.0 [facility] Comment on above: Performed By: #### P T, PTT #### [facility] [address] [place] [address] Dr. Mani Carpio NEUT # 8.3 103/ul Critically high 1.4-6.5 [facility] Comment on above: Performed By: #### P T, PTT #### [facility] [address] [address] [address] Mani Carpio Neutrophils/100 WBC (Bld) 74.4 % Normal 43.0-75.0 [facility] Comment on above: Performed By: #### P T, PTT #### [facility] [address] [address] [address] Mani Carpio Platelet mean volume (Bld) [Entitic vol] 10.0 fL Normal 9.5-13.5 [facility] Comment on above: Performed By: #### P T, PTT #### [facility] [address] [place] [address] [address] Mani Carpio PLT 281 103/ul Normal 150-450 [facility] Comment on above: Performed By: #### P T, PTT #### [facility] [address] [place] [address] Dr. Mani Carpio RBC 4.38 106/ul Critically low 4.70-6.10 [facility] Comment on above: Performed By: #### P T, PTT #### [facility] [address] [place] [address] [address] Mani Carpio WBC 11.2 103/ul Critically high 4.0-11.0 [facility] Comment on above: Performed By: #### P T, PTT #### [facility] [address] [place] [address] Dr. Mani Carpio GLYCOHEMOGLOBIN A1Con 2022 ADA RECOMMENDATION SEE BELOW Normal [facility] Comment on above: Result Comment: ADA RECOMMENDED LIMIT 4.0 - 6.0 ADA THERAPEUTIC TARGET < 7.0 ACTION SUGGESTED > 7.0 Performed By: #### A 1C #### [facility] [address] [place] [address] Dr. Mani Carpio Glucose [Mass/Vol] 146 mg/dL Normal [facility] Comment on above: Performed By: #### A 1C #### [facility] [address] [place] [address] Dr. Mani Carpio HbA1c (Bld) [Mass fraction] 6.7 % Critically high 4.5-6.2 [facility] Comment on above: Performed By: #### A 1C #### [facility] [address] [place] [address] [address] Mani Carpio LIPID PROFILEon 11-18-2022 CHOL-HDL RATIO NORM SEE BELOW Normal [facility] Comment on above: Result Comment: 3.3 - 4.4 LOW RISK 4.4 - 7.1 AVERAGE RISK 7.1 - 11.0 MODERATE RISK >11.0 HIGH RISK Performed By: #### P T, PTT #### [facility] [address] [place] [address] [address] Mani Carpio Cholesterol [Mass/Vol] 109 mg/dL Normal <=200 [facility] Comment on above: Performed By: #### P T, PTT #### [facility] [address] [address] [address] Mani Carpio Cholesterol in HDL [Mass/Vol] 28 mg/dL Critically low 40-60 [facility] Comment on above: Performed By: #### P T, PTT #### [facility] [address] [place] [address] [address] Mani Carpio Cholesterol in LDL [Mass/Vol] 41.2 mg/dL Normal [facility] Comment on above: Performed By: #### P T, PTT #### [facility] [address] [address] [address] Mani Carpio Cholesterol.total/Dania sterol in HDL [Mass ratio] 3.9 {ratio} Normal [facility] Comment on above: Performed By: #### P T, PTT #### [facility] [address] [place] [address] [address] Mani Carpio HDL NORMAL > or = 60 mg/dl - LO W CARDIOVASCULAR RISK <40 mg/dl - HIGH CARDIOVASCULAR RISK Normal [facility] Comment on above: Performed By: #### P T, PTT #### [facility] [address] [place] [address] Dr. Mani Carpio LDL CALC NORMAL SEE BELOW Normal [facility] Comment on above: Result Comment: <100 mg/dl OPTIMAL 100 - 129 mg/dl NEAR OR ABOVE OPTIMAL 130 - 159 mg/dl BORDERLINE HIGH 160 - 189 mg/dl HIGH >190 mg/dl VERY HIGH Performed By: #### P T, PTT #### [facility] [address] [place] [address] Dr. Mani Carpio Triglyceride [Mass/Vol] 199 mg/dL Critically high <=150 [facility] Comment on above: Performed By: #### P T, PTT #### [facility] [address] [place] [address] Dr. Mani Carpio VLDL CALC 39.8 mg/dL Normal [facility] Comment on above: Performed By: #### P T, PTT #### [facility] [address] [place] [address] Dr. Mani Carpio LIVER PROFILEon 11-18-2022 Albumin [Mass/Vol] 3.6 g/dL Normal 3.4-5.0 [facility] Comment on above: Performed By: #### P T, PTT #### [facility] [address] [place] [address] Dr. Mani Carpio Albumin/Globulin [Mass ratio] 0.9 {ratio} Normal [facility] Comment on above: Performed By: #### P T, PTT #### [facility] [address] [place] [address] Dr. Mani Carpio ALP [Catalytic activity/Vol] 76 U/L Normal 46-116 [facility] Comment on above: Performed By: #### P T, PTT #### [facility] [address] [place] [address] Dr. Mani Carpio ALT [Catalytic activity/Vol] 26 U/L Normal 16-63 [facility] Comment on above: Performed By: #### P T, PTT #### [facility] [address] [place] [address] Dr. Mani Carpio AST [Catalytic activity/Vol] 17 U/L Normal 15-37 [facility] Comment on above: Performed By: #### P T, PTT #### [facility] [address] [place] [address] Dr. Mani Carpio BILI, CONJUGATED 0.2 mg/dL Normal 0.0-0.2 [facility] Comment on above: Performed By: #### P T, PTT #### [facility] [address] [place] [address] Dr. Mani Carpio Bilirubin [Mass/Vol] 0.7 mg/dL Normal 0.2-1.0 [facility] Comment on above: Performed By: #### P T, PTT #### [facility] [address] [place] [address] Dr. Mani Carpio Globulin (S) [Mass/Vol] 4.2 g/dL Normal [facility] Comment on above: Performed By: #### P T, PTT #### [facility] [address] [place] [address] Dr. Mani Carpio Protein [Mass/Vol] 7.8 g/dL Normal 6.4-8.2 [facility] Comment on above: Performed By: #### P T, PTT #### [facility] [address] [place] [address] Dr. Mani Carpio PROF CHEM 8 (BAS METB)on Anion gap [Moles/Vol] 12.0 mmol/L Normal [facility] Comment on above: Performed By: #### P T, PTT #### [facility] [address] [place] [address] Dr. Mani Carpio Calcium [Mass/Vol] 9.5 mg/dL Normal 8.5-10.1 [facility] Comment on above: Performed By: #### P T, PTT #### [facility] [address] [place] [address] Dr. Mani Carpio Chloride [Moles/Vol] 100 mmol/L Normal 98-107 [facility] Comment on above: Performed By: #### P T, PTT #### [facility] [address] [place] [address] Dr. Mani Carpio CO2 [Moles/Vol] 28.9 mmol/L Normal 21.0-32.0 [facility] Comment on above: Performed By: #### P T, PTT #### [facility] [address] [place] [address] Dr. Mani Carpio Creatinine [Mass/Vol] 1.01 mg/dL Normal 0.70-1.30 [facility] Comment on above: Performed By: #### P T, PTT #### [facility] [address] [place] [address] Dr. Mani Carpio EGFR-AF [place] >60 Normal >=60 [facility] Comment on above: Performed By: #### P T, PTT #### [facility] [address] [address] [address] Main Carpio EGFR-NON AF [place] >60 Normal >=60 [facility] Comment on above: Performed By: #### P T, PTT #### [facility] [address] [address] [address] Mani Carpio Glucose [Mass/Vol] 221 mg/dL Critically high 74-106 [facility] Comment on above: Performed By: #### P T, PTT #### [facility] [address] [place] [address] Dr. Mani Carpio Potassium [Moles/Vol] 3.9 mmol/L Normal 3.5-5.1 [facility] Comment on above: Performed By: #### P T, PTT #### [facility] [address] [address] [address] Mani Carpio Sodium [Moles/Vol] 137 mmol/L Normal 136-145 [facility] Comment on above: Performed By: #### P T, PTT #### [facility] [address] [address] [address] Mani Carpio Urea nitrogen [Mass/Vol] 14.0 mg/dL Normal 7.0-18.0 [facility] Comment on above: Performed By: #### P T, PTT #### [facility] [address] [address] [address] Mani Carpio Urea nitrogen/Creatinine [Mass ratio] 13.9 mg/mg Normal [facility] Comment on above: Performed By: #### P T, PTT #### [facility] [address] [place] [address] Dr. Mani Carpio ACETONE SERUMon 09-02-2022 ACETONE Negative Normal NEGATIVE [facility] Comment on above: Performed By: #### P T, PTT #### [facility] [address] [place] [address] Dr. Mani Carpio BNPon 09-02-2022 Natriuretic peptide B (Bld) [Mass/Vol] 466.0 pg/mL Normal <=900.0 [facility] Comment on above: Performed By: #### L ACT #### [facility] [address] [place] [address] Dr. Mani Carpio CBC W MANUAL DIFFon 09-02-20 22 ATYPICAL LYMPH # Normal [facility] Comment on above: Performed By: #### C BCMAN #### [facility] [address] [place] [address] Dr. Mani Carpio ATYPICAL LYMPH % Normal [facility] Comment on above: Performed By: #### C BCMAN #### [facility] [address] [place] [address] Dr. Mani Carpio BAND # Normal 0.0-0.3 [facility] Comment on above: Performed By: #### C BCMAN #### [facility] [address] [place] [address] Dr. Mani Carpio BAND % Normal 0-5 [facility] Comment on above: Performed By: #### C BCMAN #### [facility] [address] [place] [address] Dr. Mani Carpio BASOM # 0.23 103/ul Critically high 0.00-0.10 [facility] Comment on above: Performed By: #### C BCMAN #### [facility] [address] [place] [address] Dr. Mani Carpio BASOM % 1.0 % Normal 0.2-2.0 [facility] Comment on above: Performed By: #### C BCMAN #### [facility] [address] [place] [address] Dr. Mani Carpio BLAST # Normal [facility] Comment on above: Performed By: #### C BCMAN #### [facility] [address] [place] [address] Dr. Mani Carpio BLAST % Normal [facility] Comment on above: Performed By: #### C JUAN R #### [facility] [address] [place] [address] Dr. Mani Carpio CORRECTED WBC Normal 4.0-11.0 [facility] Comment on above: Performed By: #### C JUAN R #### [facility] [address] [place] [address] Dr. Mani Carpio EOS # 0.00 103/ul Normal 0.00-0.70 [facility] Comment on above: Performed By: #### C JUAN R #### [facility] [address] [place] [address] Dr. Mani Carpio EOS% 0.0 % Critically low 0.9-7.0 [facility] Comment on above: Performed By: #### C JUAN R #### [facility] [address] [place] [address] Dr. Mani Carpio HCT 43.3 % Normal 42.0-54.0 [facility] Comment on above: Performed By: #### C JUAN R #### [facility] [address] [place] [address] Dr. Mani Carpio HGB 15.1 g/dl Normal 14.0-18.0 [facility] Comment on above: Performed By: #### C JUAN R #### [facility] [address] [place] [address] Dr. Mani Carpio LYMPHM # 2.49 103/ul Normal 1.20-3.80 [facility] Comment on above: Performed By: #### C JUAN R #### [facility] [address] [place] [address] Dr. Mani Carpio LYMPHM% 11.0 % Critically low 20.5-60.0 [facility] Comment on above: Performed By: #### C JUAN R #### [facility] [address] [place] [address] Dr. Mani Carpio MCH 30.8 pg Normal 25.9-34.0 [facility] Comment on above: Performed By: #### C JUAN R #### [facility] [address] [place] [address] Dr. Mani Carpio MCHC 34.9 g/dl Normal 29.9-35.2 [facility] Comment on above: Performed By: #### C BCMAN #### [facility] [address] [place] [address] Dr. Mani Carpio MCV 88.2 fL Normal 80.0-94.0 [facility] Comment on above: Performed By: #### C BCMAN #### [facility] [address] [place] [address] Dr. Mani Carpio METAMYELOCYTE # Normal [facility] Comment on above: Performed By: #### C JUAN R #### [facility] [address] [place] [address] Dr. Mani Carpio METAMYELOCYTE % Normal [facility] Comment on above: Performed By: #### C JUAN R #### [facility] [address] [place] [address] Dr. Mani Carpio MONOM# 2.26 103/ul Critically high 0.30-0.80 [facility] Comment on above: Performed By: #### C JUAN R #### [facility] [address] [place] [address] Dr. Mani Carpio MONOM% 10.0 % Normal 1.7-12.0 [facility] Comment on above: Performed By: #### C JUAN R #### [facility] [address] [place] [address] Dr. Mani Carpio MPV 10.1 fL Normal 9.5-13.5 [facility] Comment on above: Performed By: #### C BCMAN #### [facility] [address] [place] [address] Dr. Mani Carpio MYELOCYTE # Normal [facility] Comment on above: Performed By: #### C BCMAN #### [facility] [address] [place] [address] Dr. Mani Carpio MYELOCYTE % Normal [facility] Comment on above: Performed By: #### C JUAN R #### [facility] [address] [place] [address] Dr. Mani Carpio NRBC Normal [facility] Comment on above: Performed By: #### C BCMAN #### [facility] [address] [address] [address] Mani Carpio PLT 311 103/ul Normal 150-450 [facility] Comment on above: Performed By: #### C BCMAN #### [facility] [address] [address] [address] Mani Carpio RBC 4.91 106/ul Normal 4.70-6.10 [facility] Comment on above: Performed By: #### C BCMAN #### [facility] [address] [address] [address] Mani Carpio RDW 14.2 % Normal 11.0-15.0 [facility] Comment on above: Performed By: #### C JUAN R #### [facility] [address] [place] [address] Dr. Mani Carpio SEG # 17.63 103/ul Critically high 1.40-6.50 [facility] Comment on above: Performed By: #### C RUSSELLMAN #### [facility] [address] [place] [address] Dr. Mani Carpio SEG % 78.0 % Critically high 43.0-75.0 [facility] Comment on above: Performed By: #### C BCMAN #### [facility] [address] [place] [address] Dr. Mani Carpio WBC 22.6 103/ul Critically high 4.0-11.0 [facility] Comment on above: Performed By: #### C RUSSELLMAN #### [facility] [address] [place] [address] ABD/PELV W CONon 09-02-20 CT ABD/PELV W CON EXAMINATION: CT ABD/ PELV W CON HISTORY: GENERALIZED ABDOMINAL PAIN , nausea, vomiting, confusion COMPARISON: No relevant comparison available. TECHNIQUE: Axial, Coronal, and Sagittal images were obtained without and/or with IV contrast as indicated by examination type. Dose reduction techniques were achieved by using automated exposure control and/or adjustment of mA and/or kV according to patient size and/or use of iterative reconstruction technique. FINDINGS: LUNG BASES: Mild bibasilar atelectasis versus infiltrates. LIVER: No enlargement, atrophy, suspicious density, or significant focal lesion. BILIARY: Mild gallbladder wall thickening up to 4 mm. No appreciable stones or abnormal duct dilation. PANCREAS: No lesion, fluid collection, or abnormal duct dilatation. SPLEEN: No enlargement or focal lesion. ADRENALS: No mass or enlargement. KIDNEYS: Heterogeneous masslike area within anterior lateral mid body of left kidney, 4.4 x 4.1 x 4.0 cm. BOWEL/MESENTERY: Diverticulosis of sigmoid colon without acute inflammatory changes. No visible mass, obstruction, or bowel wall thickening. AORTA/VASCULAR: Marked atherosclerotic disease with narrowing of aorta and its bifurcation. 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 Marked atherosclerotic narrowing of right common and external iliac artery with right to left femoral bypass graft without appreciable radiopaque contrast within the graft suggesting occlusion. RETROPERITONEUM: No mass or adenopathy. LYMPH NODES: No adenopathy. URINARY BLADDER: No visible focal wall thickening, lesion, or calculus. PELVIC ORGANS: No visible mass. Pelvic organs appropriate for patient age. ABDOMINAL WALL: No mass or hernia. BONES: L5-S1 marked degenerative disc disease and degenerative sclerotic endplate changes. Suspect marked foramen narrowing bilaterally. OTHER: Negative. IMPRESSION: 1. Gallbladder wall thickening suggestive of acute versus chronic cholecystitis. Ultrasound evaluation recommended. 2. Mild bibasilar pulmonary atelectasis versus infiltrates; atelectasis is favored. 3. Heterogeneous masslike area within left kidney suspicious for neoplasm. Follow-up MRI of left kidney without and with contrast is recommended. 4. Marked atherosclerotic disease of aorta and iliac arteries with occlusion of left common iliac artery and suspected occlusion of right to left femoral-femoral bypass graft. Electronically authenticated by: STEPHIE RODRIGUEZ Date: 2022-09-02 15:36 [address] [facility] CT STROKE HEAD WOon 09-02-[address] STROKE HEAD WO EXAMINATION: CT STRO KE HEAD WO HISTORY: Acute confusion . Nausea and vomiting. COMPARISON: 09/20/2022. TECHNIQUE: CT examination of the head without IV contrast. Dose reduction techniques were achieved by using automated exposure control and/or adjustment of mA and/or kV according to patient size and/or use of iterative reconstruction technique. FINDINGS: Old right basal ganglia lacunar infarct. Moderate bilateral chronic microvascular ischemic change. Diffuse cerebral atrophy. The mastoid air cells and visualized paranasal sinuses are clear. IMPRESSION: 1. No acute intracranial process is identified. 2. Moderate bilateral chronic microvascular ischemic change. Old right basal ganglia lacunar infarct. Electronically authenticated by: JULISSA HACKETT Date: 2022-09-02 14:20 Normal [facility] CULTURE BLOODon 09-02-2022 Microscopic examination of blood, culture Culture Observations: NO GROWTH AT 5 DAYS. Normal [facility] Comment on above: Performed By: #### L ACT #### [facility] [address] [address] [address] Mani Carpio Microscopic examination of blood, culture Culture Observations: NO GROWTH AT 5 DAYS. Normal [facility] Comment on above: Performed By: #### L ACT #### [facility] [address] [address] [address] Mani Carpio Covid-19 PCR ([facility])on 08-18 SARS-CoV-2 (COVID-19) RNA PLACIDO+probe Ql (Unsp spec) Not detected Normal NOT DETECTED [facility] Comment on above: Result Comment: When diagnostic testing is negative, the possibility of a false negative should be considered in the context of a patient's recent exposures and the presence of clinical signs and symptoms consistent with SARS-CoV-2. This test is not yet approved or cleared by the [place] FDA. When there are no FDA-approved or cleared tests available, and other criteria are met, FDA can make tests available under an emergency access mechanism called an Emergency Use Authorization (EUA). The EUA for this test is supported by the Mess Attendant of Health and Human Service's declaration that circumstances exist to justify the emergency use of in vitro diagnostics for the detection and/or diagnosis of the virus that causes COVID-19. This EUA will remain in effect for the duration of the COVID-19 declaration justifying emergency of IVDs, unless it is terminated or revoked by the FDA (after which the test may no longer be used). Performed By: #### L ACT #### [facility] [address] [address] [address] Mani Carpio ER URINE PROFILEon 2 Bilirubin Ql (U) Negative Normal NEGATIVE [facility] Comment on above: Performed By: #### U MICRO, ERUR #### [facility] [address] [address] [address] Mani Carpio Clarity (U) CLEAR Normal CLEAR [facility] Comment on above: Performed By: #### U MICRO, ERUR #### [facility] [address] [address] [address] Mani Carpio Color (U) LT. YELLOW Normal YELLOW [facility] Comment on above: Performed By: #### U MICRO, ERUR #### [facility] [address] [place] [address] Dr. Mani Carpio ERUAHD A micrscopic examina tion will be performed if indicated. Normal [facility] Comment on above: Performed By: #### U MICRO, ERUR #### [facility] [address] [place] [address] Dr. Mani Carpio Glucose Ql (U) 500 mg/dl Abnormal NEGATIVE [facility] Comment on above: Performed By: #### U MICRO, ERUR #### [facility] [address] [address] [address] Mani Carpio Hemoglobin Ql (U) SMALL Abnormal NEGATIVE [facility] Comment on above: Performed By: #### U MICRO, ERUR #### [facility] [address] [place] [address] Dr. Mani Carpio Ketones Ql (U) Negative Normal NEGATIVE [facility] Comment on above: Performed By: #### U MICRO, ERUR #### [facility] [address] [address] [address] Mani Carpio LEUKOCYTES Negative Normal NEGATIVE [facility] Comment on above: Performed By: #### U MICRO, ERUR #### [facility] [address] [place] [address] Dr. Mani Carpio Nitrite Ql (U) Negative Normal NEGATIVE [facility] Comment on above: Performed By: #### U MICRO, ERUR #### [facility] [address] [place] [address] Dr. Mani Carpio pH (U) 7.0 [pH] Normal 5-9 [facility] Comment on above: Performed By: #### U MICRO, ERUR #### [facility] [address] [place] [address] Dr. Mani Carpio Protein (U) [Mass/Vol] 100 mg/dL Abnormal NEGAT SONYA/ TRACE [facility] Comment on above: Performed By: #### U MICRO, ERUR #### [facility] [address] [place] [address] Dr. aMni Carpio SPEC GRAVITY 1.015 Normal 1.005-<=1. 025 [facility] Comment on above: Performed By: #### U MICRO, ERUR #### [facility] [address] [place] [address] Dr. Mani Carpio UR MICRO IND INDICATED Normal [facility] Comment on above: Performed By: #### U MICRO, ERUR #### [facility] [address] [place] [address] Dr. Mani Carpio Urobilinogen Qn (U) 0.2 {Javon'U}/dL Normal 0.2 - 1. 0 [facility] Comment on above: Performed By: #### U MICRO, ERUR #### [facility] [address] [place] [address] Dr. Mani Carpio LACTATE/LACTIC ACIDon 2021 Lactate [Moles/Vol] 3.1 mmol/L Critically high 0.4-1.9 [facility] Comment on above: Performed By: #### L ACT #### [facility] [address] [place] [address] Dr. Mani Carpio Lactate [Moles/Vol] 4.0 mmol/L Critically high 0.4-1.9 [facility] Comment on above: Performed By: #### L ACT #### [facility] [address] [place] [address] Dr. Mani Carpio LIPASEon 09-02-2022 Lipase [Catalytic activity/Vol] 60.0 U/L Critically low 73.0-393.0 [facility] Comment on above: Performed By: #### L ACT #### [facility] [address] [address] [address] Mani Carpio PH VENOUS BLOODon 09-02-2022 PCO2 VENOUS 32.5 mmHg Critically low 40.0-52.0 [facility] Comment on above: Performed By: #### P HVEN #### [facility] [address] [address] [address] Mani Carpio pH VENOUS 7.454 Critically high 7.330-7.43 0 [facility] Comment on above: Performed By: #### P HVEN #### [facility] [address] [address] [address] Mani Carpio PROF 14(COMP METB)on 022 Albumin [Mass/Vol] 3.8 g/dL Normal 3.4-5.0 [facility] Comment on above: Performed By: #### L ACT #### [facility] [address] [place] [address] Dr. Mani Carpio Albumin/Globulin [Mass ratio] 0.8 {ratio} Normal [facility] Comment on above: Performed By: #### L ACT #### [facility] [address] [place] [address] Dr. Mani Carpio ALP [Catalytic activity/Vol] 83 U/L Normal 46-116 [facility] Comment on above: Performed By: #### L ACT #### [facility] [address] [place] [address] Dr. Mani Carpio ALT [Catalytic activity/Vol] 23 U/L Normal 16-63 [facility] Comment on above: Performed By: #### L ACT #### [facility] [address] [address] [address] Mani Carpio Anion gap [Moles/Vol] 13.9 mmol/L Normal [facility] Comment on above: Performed By: #### L ACT #### [facility] [address] [address] [address] Mani Carpio AST [Catalytic activity/Vol] 14 U/L Critically low 15-37 [facility] Comment on above: Performed By: #### L ACT #### [facility] [address] [address] [address] Mani Carpio Bilirubin [Mass/Vol] 1.1 mg/dL Critically high 0.2-1.0 [facility] Comment on above: Performed By: #### L ACT #### [facility] [address] [address] [address] Mani Carpio Calcium [Mass/Vol] 10.0 mg/dL Normal 8.5-10.1 [facility] Comment on above: Performed By: #### L ACT #### [facility] [address] [address] [address] Mani Carpio Chloride [Moles/Vol] 96 mmol/L Critically low 98-107 [facility] Comment on above: Performed By: #### L ACT #### [facility] [address] [place] [address] Dr. Mani Carpio CO2 [Moles/Vol] 24.8 mmol/L Normal 21.0-32.0 [facility] Comment on above: Performed By: #### L ACT #### [facility] [address] [place] [address] Dr. Mani Carpio Creatinine [Mass/Vol] 1.25 mg/dL Normal 0.70-1.30 [facility] Comment on above: Performed By: #### L ACT #### [facility] [address] [place] [address] Dr. Mani Carpio EGFR-AF [place] >60 Normal >=60 [facility] Comment on above: Performed By: #### L ACT #### [facility] Laboratory [address] [address] [address] Mani Carpio EGFR-NON AF [place] 58 mL/min/1.73m2 Critically low >=60 [facility] Comment on above: Performed By: #### L ACT #### [facility] [address] [address] [address] Mani Carpio Globulin (S) [Mass/Vol] 4.6 g/dL Normal T [facility] Comment on above: Performed By: #### L ACT #### [facility] [address] [address] [address] Mani Carpio Glucose [Mass/Vol] 204 mg/dL Critically high 74-106 [facility] Comment on above: Performed By: #### L ACT #### [facility] [address] [address] [address] Mani Carpio Potassium [Moles/Vol] 3.7 mmol/L Normal 3.5-5.1 [facility] Comment on above: Performed By: #### L ACT #### [facility] [address] [address] [address] Mani Carpio Protein [Mass/Vol] 8.4 g/dL Critically high 6.4-8.2 [facility] Comment on above: Performed By: #### L ACT #### [facility] [address] [address] [address] Mani Carpio Sodium [Moles/Vol] 131 mmol/L Critically low 136-145 [facility] Comment on above: Performed By: #### L ACT #### [facility] [address] [address] [address] Mani Carpio Urea nitrogen [Mass/Vol] 17.0 mg/dL Normal 7.0-18.0 [facility] Comment on above: Performed By: #### L ACT #### [facility] [address] [address] [address] Mani Carpio Urea nitrogen/Creatinine [Mass ratio] 13.6 mg/mg Normal [facility] Comment on above: Performed By: #### L ACT #### [facility] [address] [address] [address] Mani Carpio PROTIMEon 09-02-2022 INR Coag (PPP) [Relative time] 1.07 {INR} Normal [facility] Comment on above: Performed By: #### P T, PTT #### [facility] [address] [address] [address] Mani Carpio INR GUIDELINES SEE BELOW Normal [facility] Comment on above: Result Comment: SETH RED INR: 2.0 - 3.0 CONDITIONS NOT LISTED BELOW 2.5 - 3.5 FOR PROSTHETIC HEART VALVE REPLACEMENT 2.5 - 3.5 RECURRENT THROMBOSIS Performed By: #### P T, PTT #### [facility] [address] [place] [address] Dr. Mani Carpio PT Coag (PPP) [Time] 11.5 s Normal 9.0-11.6 [facility] Comment on above: Performed By: #### P T, PTT #### [facility] [address] [place] [address] Dr. Mani Carpio PTTon 09-02-2022 aPTT Coag (Bld) [Time] 29.3 s Normal 22.3-36.2 [facility] Comment on above: Performed By: #### P T, PTT #### [facility] [address] [place] [address] Dr. Mani Carpio TROPONIN, HIGH SENSITIVITYon 09-02-2022 HSTROP 13.4 pg/mL Normal 4.0-76.1 [facility] Comment on above: Result Comment: CUT- OFF POINTS HAVE BEEN ESTABLISHED BASED ON THE FOURTH UNIVERSAL DEFINITIONS OF MYOCARDIAL INFARCTION. THE UPPER REFERENCE LIMIT (URL) OF TROPONIN, DEFINED THE 99TH PERCENTILE OF cTnI DISTRIBUTION IN A REFERENCE POPULATION, HAS BEEN CONFIRMED THE DECISION THRESHOLD FOR IA DIAGNOSIS. Performed By: #### L ACT #### [facility] [address] [place] [address] Dr. Mani Carpio TSHon 09-02-2022 TSH 0.555 uIU/mL Normal 0.358-3.74 0 [facility] Comment on above: Performed By: #### L ACT #### [facility] [address] [place] [address] Dr. Mani Carpio URINE MICROSCOPIC ONLYon BACTERIA TRACE Abnormal NONE SEEN [facility] Comment on above: Performed By: #### U MICRO, ERUR #### [facility] [address] [place] [address] Dr. Mani Carpio Bacteria identified Cx Nom (U) NOT INDICATED Normal [facility] Comment on above: Performed By: #### U MICRO, ERUR #### [facility] [address] [place] [address] Dr. Mani Carpio CAST NONE SEEN Normal NONE SEEN [facility] Comment on above: Performed By: #### U MICRO, ERUR #### [facility] [address] [place] [address] Dr. Mani Carpio Crystals LM Nom (Urine sed) NONE SEEN Normal NONE SEEN [facility] Comment on above: Performed By: #### U MICRO, ERUR #### [facility] [address] [place] [address] Dr. Mani Carpio Epithelial cells LM Ql (Urine sed) RARE Normal NONE SEEN /RARE [facility] Comment on above: Performed By: #### U MICRO, ERUR #### [facility] [address] [place] [address] Dr. Mani Carpio MUCOUS NONE SEEN Normal NONE SEEN [facility] Comment on above: Performed By: #### U MICRO, ERUR #### [facility] [address] [place] [address] Dr. Mani Carpio RBC 5-10 Abnormal 0-2 [facility] Comment on above: Performed By: #### U MICRO, ERUR #### [facility] [address] [place] [address] Dr. Mani Carpio WBC 0-2 Abnormal NONE SEEN [facility] Comment on above: Performed By: #### U MICRO, ERUR #### [facility] [address] [place] [address] Dr. Mani Carpio US SINGLE QUAD RT UPPERon US SINGLE QUAD RT UPPER EXAM: US SINGLE QUAD RT UPPER HISTORY: Acute cholecystitis COMPARISON: None. TECHNIQUE: Sonographic examination of the right upper quadrant of the abdomen using grayscale, color Doppler, and spectral waveform analysis. FINDINGS: Normal contour and echotexture of the liver. No discrete hepatic mass. No intrahepatic or extrahepatic biliary ductal dilatation. Common duct measures 6.4 mm in diameter. Normal direction of flow of the portal vein. Gallbladder wall thickness of 2 mm. Dependent layering material, suggestive of sludge. No cholelithiasis or intraluminal mass. Negative sonographic Allison sign. Minimal pericholecystic fluid. Normal visualized pancreas. Normal echogenicity of the right kidney, which measures 11.1 cm in length. No hydronephrosis. Normal color Doppler flow to the right kidney. No free fluid. SUMMARY: Gallbladder sludge and minimal pericholecystic fluid although without additional findings which would support the diagnosis of acute cholecystitis. Electronically authenticated by: ELBA SHIPMAN Date: 2022-09-02 17:25 Normal [facility] US MARQUIS DOP LEG BILon 022 US MARQUIS DOP LEG ROSEANNE EXAM: US MARQUIS DOP LEG ROSEANNE HISTORY: This is a 67-year-old with a history of deep vein thrombosis. Follow-up study. COMPARISON: None. TECHNIQUE: Multiple sonographic images of the deep veins of both lower extremities were obtained, supplemented with Doppler. FINDINGS: The deep veins of both lower extremity are fairly well visualized from the groin to the mid calf. No filling defect is identified in either side to indicate a thrombus. There is normal compression augmentation of flow bilaterally. The greater saphenous vein is incompletely visualized on the right. The visualized portions are patent. The visualized greater saphenous vein on the left is patent. IMPRESSION: There is no direct or indirect evidence of deep vein thrombosis in either lower extremity at this time. Comparison with a previous study may be helpful. Electronically authenticated by: HARMONY BRIGGS Date: 2022-09-02 16:58 Normal [facility] XR CHEST 1 Von 09-02-2022 XR CHEST 1 V EXAM: CHEST 1 VIEW HISTORY: SHORTNESS OF BREATH TECHNIQUE: Chest, one view. COMPARISON: None. FINDINGS: There are low lung volumes with vascular crowding. No focal consolidation, pleural effusion, or pneumothorax. Pulmonary vasculature is within normal limits. Heart size is upper limits of normal to borderline enlarged. IMPRESSION: 1. Expiratory chest without acute cardiopulmonary disease. 2. Upper limits of normal to borderline enlarged heart size. Electronically authenticated by: SHAHIDA ANDERSON Date: 2022-09-02 14:24 Normal [facility] ECHOCARDIO M/2D COMPLETEon 1 10-21-2021 ECHOCARDIO M/2D COMPLETE Patient: YOEL VAN Exam Date: 08/21/2022 : 1955 Gender:M Ordering : [facility] Admission #: [id number] Family : Order #: [id number] CLICK HERE TO VIEW EXAM ECHOCARDIOGRAM REPORT PROCEDURE: CARDIO PULMONARY ECHOCARDIO M/2D COMP INDICATIONS: Aneurysm os ascending aorta, smoker, hypertension, diabetes, PTCA COMPARISON: None. DESCRIPTION: COMPLETE ECHOCARDIOGRAM Real-time transthoracic echocardiography with 2D, M-mode, spectral and color flow Doppler performed. QUALITY: Technical quality was good. 72 226# BP 130/76 LEFT VENTRICLE: Normal chamber size. Mild concentric left ventricular hypertrophy. Left ventricular systolic function is mildly reduced. LV EF: Mildly reduced left ventricular ejection fraction, (45-50%). DIASTOLIC: Grade I diastolic dysfunction. ATRIAL SEPTUM: Visually appears intact. LEFT ATRIUM: Mild dilatation. RIGHT ATRIUM: Mild dilatation. RIGHT VENTRICLE: Normal chamber size. Preserved right ventricular systolic function. TRICUSPID VALVE: Normal mobility and thickness. No stenosis with trivial regurgitation. MITRAL VALVE: Mildly thickened with normal mobility. No evidence of mitral valve stenosis. Mild mitral annular calcification. Mild mitral regurgitation. AORTIC VALVE: Normal trileaflet appearance. Mildly calcified aortic valve. Mildly diminished mobility. No evidence of aortic valve stenosis. No aortic regurgitation. AORTIC ROOT: Mildly dilated aortic root measuring 3.7 cm. The ascending aorta is mildly dilated measuring 4.0 cm. PULMONIC VALVE: Normal thickness and mobility. No stenosis. Trivial regurgitation. PERICARDIUM: No evidence of pericardial effusion. IVC: Collapses with inspirations. PLEURA: CONCLUSION: 1. Mild concentric left ventricular hypertrophy with mildly reduced left ventricular systolic function. LVEF is 45 to 50%. 2. The right ventricle is normal in size with normal systolic function. 3. Mild diastolic dysfunction. 4. Mild biatrial dilatation. 5. Mild mitral regurgitation. 6. Mildly dilated aortic root and ascending aorta [4.0 cm]. 7. No pericardial effusion. Adult Echocardiography Procedure Report Left Ventricle LVEDD (3.7 - 5.6 cm): 4.80 cm LVESD (2.2 - 4.0 cm): 2.85 cm LVIVS thickness (0.6 - 1.2 cm): 1.39 cm LVPW thickness (0.5 - 1.0 cm): 1.16 cm e': 0.07 m/s E - e': 7.10 LVOT Max Gradient: 3.84 mm[Hg] Peak Velocity (LVOT): 0.98 m/s Mean Velocity (LVOT): 0.67 m/s LVOT Diameter 2.77 cm Left Ventricular Ejection Fraction: 45-50 % Left Atrium LA Volume Index (2D A2C): 76.45 ml, 76.45 ml Left Atrium Systolic Dimension: 4.12 cm Mitral Valve MV E to A Ratio: 0.69 Mitral Valve A-Wave Peak Velocity: 0.77 m/s Mitral Valve E-Wave Peak Velocity: 0.53 m/s Right Ventricle Aorta AO Root Diam: 3.74 cm Aortic Valve AoV Area (Peak Zachariah): 4.30 cm2, 4.30 cm2 AoV Area (VTI): 4.38 cm2, 4.38 cm2 Peak Velocity(Antegrade Flow): 1.37 m/s Peak Gradient(Antegrade Flow): 7.54 mm[Hg] Mean Velocity(Antegrade Flow): 0.88 m/s Mean Gradient(Antegrade Flow): 3.65 mm[Hg] Velocity Time Integral: 25.53 cm Tricuspid Valve Peak Velocity: 0.49 m/s Pulmonic Valve Peak Velocity: 0.94 m/s, 0.88 m/s Peak Gradient: 3.51 mm[Hg], 3.10 mm[Hg] Right Atrium Right Atrium Systolic Pressure: 57.48 ml, 57.48 ml Dictated by: Clinton Guevara M.D. on 08/21/2022 at 18:01 Approved by: Clinton Guevara M.D. on 08/21/2022 at 18:08 Normal [facility] GLYCOHEMOGLOBIN A1Con 2021 ADA RECOMMENDATION SEE BELOW Normal [facility] Comment on above: Result Comment: ADA RECOMMENDED LIMIT 4.0 - 6.0 ADA THERAPEUTIC TARGET < 7.0 ACTION SUGGESTED > 7.0 Performed By: #### A 1C #### [facility] [address] [place] [address] Dr. Mani Carpio Glucose [Mass/Vol] 186 mg/dL Normal [facility] Comment on above: Performed By: #### A 1C #### [facility] [address] [address] [address] Mani Carpio HbA1c (Bld) [Mass fraction] 8.1 % Critically high 4.5-6.2 [facility] Comment on above: Performed By: #### A 1C #### [facility] [address] [address] [address] Mani Carpio APTTon 05-03-2021 aPTT Coag (Bld) [Time] 20.8 s Normal 20.5-30.5 [facility] Comment on above: Result Comment: IV Heparin Therapy Range: 48.6-77.8 Performed By: #### S ED, CRP, STROKE #### [employer] [address] [place] [id number] Agitator Operator: Bowen Lemon MD APTTOrdered By: Ning martines on 05-03-2021 aPTT Coag (Bld) [Time] 20.8 s [facility] [employer] Phone: Comment on above: IV Heparin Therapy Range: 48.6-77.8 [facility] Phone: Basic Metab w/rfx MGon 05-03 (cont.) Normal [facility] Comment on above: Result Comment: Aver age GFR for 60-69 years old: 85 mL/min/1.73sq m Chronic Kidney Disease: <60 mL/min/1.73sq m Kidney failure: <15 mL/min/1.73sq m eGFR calculated using average adult body mass. Additional eGFR calculator available at: http://www.[employer]/multiple_crcl_2012.htm Performed By: #### S ED, CRP, STROKE #### [employer] [address] [place] [id number] Agitator Operator: Bowen Lemon MD Anion gap [Moles/Vol] 12 mmol/L Normal 9-17 [facility] Comment on above: Performed By: #### S ED, CRP, STROKE #### [employer] [address] [place] [address] Agitator Operator: Bowen Lemon MD Calcium [Mass/Vol] 9.4 mg/dL Normal 8.6-10.4 [facility] Comment on above: Performed By: #### S ED, CRP, STROKE #### [employer] [facility] [address] [place] [address] Agitator Operator: Bowen Lemon MD Chloride [Moles/Vol] 103 mmol/L Normal 98-107 [facility] Comment on above: Performed By: #### S ED, CRP, STROKE #### [facility] [address] [place] [address] Agitator Operator: Bowen Lemon MD CO2 [Moles/Vol] 20 mmol/L Normal 20-31 [facility] Comment on above: Performed By: #### S ED, CRP, STROKE #### [facility] [address] [place] [address] Agitator Operator: Bowen Lemon MD Creatinine [Mass/Vol] 0.85 mg/dL Normal 0.70-1.20 [facility] Comment on above: Performed By: #### S ED, CRP, STROKE #### [facility] [address] [place] [id number] Agitator Operator: Bowen Lemon MD GFR, Amer >60 Normal >60 [facility] Comment on above: Performed By: #### S ED, CRP, STROKE #### [facility] [address] [place] [address] Agitator Operator: Bowen Lemon MD GFR,non Amer >60 Normal >60 [facility] Comment on above: Performed By: #### S ED, CRP, STROKE #### [facility] [address] [place] [address] Agitator Operator: Bowen Lemon MD Glucose [Mass/Vol] 163 mg/dL High 70-99 [facility] Comment on above: Performed By: #### S ED, CRP, STROKE #### [facility] [address] [place] [address] Agitator Operator: Bowen Lemon MD Potassium [Moles/Vol] 4.1 mmol/L Normal 3.7-5.3 [facility] Comment on above: Performed By: #### S ED, CRP, STROKE #### [facility] [address] [place] [address] Agitator Operator: Bowen Lemon MD Sodium [Moles/Vol] 135 mmol/L Normal 135-144 [facility] Comment on above: Performed By: #### S ED, CRP, STROKE #### [facility] [address] [place] [address] Agitator Operator: Bowen Lemon MD Urea nitrogen [Mass/Vol] 12 mg/dL Normal 8-23 [facility] Comment on above: Performed By: #### S ED, CRP, STROKE #### [facility] [address] [place] [address] Agitator Operator: Bowen Lemon MD BUN/CRE Ratio NOT REPORTED Normal 9-20 [facility] Comment on above: Performed By: #### S ED, CRP, STROKE #### [facility] [address] [place] [address] Agitator Operator: Bowen Lemon MD Staging: NOT REPORTED Normal [facility] Comment on above: Performed By: #### S ED, CRP, STROKE #### [facility] [address] [place] [address] Agitator Operator: Bowen Lemon MD Basic Metabolic Panel w/ Ref darlene to MGOrdered By: Jarek Osborn on 05-03-2021 Anion gap [Moles/Vol] 12 mmol/L 9 - 17 mmol/L [facility] Phone: Calcium [Mass/Vol] 9.4 mg/dL 8.6 - 10. 4 mg/dL [facility] Phone: Chloride [Moles/Vol] 103 mmol/L 98 - 10 7 mmol/L [facility] Phone: CO2 [Moles/Vol] 20 mmol/L 20 - 31 mmol/L [facility] Phone: Creatinine [Mass/Vol] 0.85 mg/dL 0.70 - 1.20 mg/dL [facility] Phone: GFR >60 >60 mL/min [facility] Phone: GFR Non- >60 >60 mL/min [facility] Phone: GFR/1.73 sq M.predicted MDRD (S/P/Bld) [Vol rate/Area] [facility] Phone: Comment on above: Average GFR for 60-6 9 years old: 85 mL/min/1.73sq m Chronic Kidney Disease: <60 mL/min/1.73sq m Kidney failure: <15 mL/min/1.73sq m eGFR calculated using average adult body mass. Additional eGFR calculator available at: http://www.[employer]/multiple_crcl_2012.htm GFR/1.73 sq M.predicted MDRD (S/P/Bld) [Vol rate/Area] NOT REPORTED [facility] Phone: Glucose [Mass/Vol] 163 mg/dL High 70 - 99 mg/dL [facility] Phone: Interpretation and review of laboratory results Abnormal [facility] Phone: Potassium [Moles/Vol] 4.1 mmol/L 3.7 - 5.3 mmol/L [facility] Phone: Sodium [Moles/Vol] 135 mmol/L 135 - 144 mmol/L [facility] Phone: Urea nitrogen (BldV) [Mass/Vol] 12 mg/dL 8 - 23 mg/dL [facility] Phone: Urea nitrogen/Creatinine (Bld) [Mass ratio] NOT REPORTED [facility] Phone: CBCon 05-03-2021 Erythrocyte distribution width (RBC) [Ratio] 14.5 % High 11.8-14.4 [facility] Comment on above: Performed By: #### S ED, CRP, STROKE #### [address] [address] Agitator Operator: Bowen Lemon MD Hematocrit (Bld) [Volume fraction] 38.4 % Low 40.7-50.3 [facility] Comment on above: Performed By: #### S ED, CRP, STROKE #### [address] [address] Agitator Operator: Bowen Lemon MD Hemoglobin (Bld) [Mass/Vol] 12.6 g/dL Low 13.0-17.0 [facility] Comment on above: Performed By: #### S ED, CRP, STROKE #### [address] [address] Agitator Operator: Bowen Lemon MD MCH (RBC) [Entitic mass] 30.2 pg Normal 25.2-33.5 [facility] Comment on above: Performed By: #### S ED, CRP, STROKE #### [address] [address] Agitator Operator: Bowen Lemon MD MCHC (RBC) [Mass/Vol] 32.8 g/dL Normal 28.4-34.8 [facility] Comment on above: Performed By: #### S ED, CRP, STROKE #### [address] [address] Agitator Operator: Bowen Lemon MD MCV (RBC) [Entitic vol] 92.1 fL Normal 82.6-102.9 [facility] Comment on above: Performed By: #### S ED, CRP, STROKE #### [address] [address] Agitator Operator: Bowen Lemon MD NRBC Automated 0.0 per 100 WBC Normal 0.0 [facility] Comment on above: Performed By: #### S ED, CRP, STROKE #### [facility] [address] [place] [address] Agitator Operator: Bowen Lemon MD Platelet mean volume (Bld) [Entitic vol] 10.8 fL Normal 8.1-13.5 [facility] Comment on above: Performed By: #### S ED, CRP, STROKE #### [facility] [address] [place] [id number] Agitator Operator: Bowen Lemon MD Platelets (Bld) [#/Vol] 225 10*3/uL Normal 138-453 [facility] Comment on above: Performed By: #### S ED, CRP, STROKE #### [facility] [address] [place] [address] Agitator Operator: Bowen Lemon MD RBC (Bld) [#/Vol] 4.17 10*6/uL Low 4.21-5.77 [facility] Comment on above: Performed By: #### S ED, CRP, STROKE #### [facility] [address] [place] [address] Agitator Operator: Bowen Lemon MD WBC (Bld) [#/Vol] 6.6 10*3/uL Normal 3.5-11.3 [facility] Comment on above: Performed By: #### S ED, CRP, STROKE #### [facility] [address] [place] [id number] Agitator Operator: Bowen Lemon MD CBCOrdered By: Gee benoit on 05-03-2021 Hematocrit (Bld) [Volume fraction] 38.4 % Low 40.7 - 50.3 % [facility] Phone: Hemoglobin.gastrointest inal spec 1 Ql (Stl) 12.6 g/dL Low 13.0 - 17.0 g/dL [facility] Phone: Interpretation and review of laboratory results Abnormal [facility] Phone: MCH (RBC) [Entitic mass] 30.2 pg 25.2 - 33.5 pg [facility] Phone: MCHC (RBC) [Mass/Vol] 32.8 g/dL 28.4 - 34.8 g/dL [facility] Phone: MCV (RBC) [Entitic vol] 92.1 fL 82.6 - 102.9 fL [facility] Phone: NRBC Automated 0.0 0.0 per 100 WBC [facility] Phone: Platelet distribution width (Bld) [Ratio] 14.5 % High 11.8 - 14.4 % [facility] Phone: Platelet mean volume (Bld) [Entitic vol] 10.8 fL 8.1 - 13.5 fL [facility] Phone: Platelets (Bld) [#/Vol] 225 10*3/uL [facility] Phone: RBC (Bld) [#/Vol] 4.17 10*6/uL Low 4.21 - 5.77 m/uL [facility] Phone: WBC (Bld) [#/Vol] 6.6 10*3/uL [facility] Phone: [facility] Phone: MAGNESIUMOrdered By: Gee Parnell on 05-03-2021 Magnesium [Mass/Vol] 1.7 mg/dL 1.6 - 2 .6 mg/dL [facility] Phone: Magnesiumon 05-03-2021 Magnesium [Mass/Vol] 1.7 mg/dL Normal 1.6-2.6 [facility] Comment on above: Performed By: #### S ED, CRP, STROKE #### [employer] [address] [place] [address] Agitator Operator: Bowen Lemon MD No Panel InformationOrdered By: Jarek Osborn on 05-03-2021 [facility] Phone: POC Glucose FingerstickOrder ed By: Ning Wallace on 05-03-2021 Glucose [Mass/Vol] 163 mg/dL High 75 - 110 mg/dL [facility] Phone: Interpretation and review of laboratory results Abnormal [facility] Phone: [facility] Phone: APTTon 05-02-2021 aPTT Coag (Bld) [Time] 60.3 s High 20.5-30.5 [facility] Comment on above: Result Comment: IV Heparin Therapy Range: 48.6-77.8 Performed By: #### S ED, CRP, STROKE #### [employer] [address] [place] [address] Agitator Operator: Bowen Lemon MD APTTOrdered By: Ning martines on 05-02-2021 aPTT Coag (Bld) [Time] 60.3 s High [facility] Phone: Comment on above: IV Heparin Therapy Range: 48.6-77.8 Interpretation and review of laboratory results Abnormal [facility] Phone: [facility] Phone: Activated clotting timeOrder ed By: Ning Wallace on 05-02-2021 Activated Clotting Time 227 High M [facility] Phone: Interpretation and review of laboratory results Abnormal [facility] Phone: [facility] Phone: Basic Metab w/rfx MGon 05-02 (cont.) Normal [facility] Comment on above: Result Comment: Aver age GFR for 60-69 years old: 85 mL/min/1.73sq m Chronic Kidney Disease: <60 mL/min/1.73sq m Kidney failure: <15 mL/min/1.73sq m eGFR calculated using average adult body mass. Additional eGFR calculator available at: http://www.[employer]/multiple_crcl_2012.htm Performed By: #### S ED, CRP, STROKE #### [facility] [address] [place] [address] Agitator Operator: Bowen Lemon MD Anion gap [Moles/Vol] 14 mmol/L Normal 9-17 [facility] Comment on above: Performed By: #### S ED, CRP, STROKE #### [facility] [address] [place] [address] Agitator Operator: Bowen Lemon MD Calcium [Mass/Vol] 9.4 mg/dL Normal 8.6-10.4 [facility] Comment on above: Performed By: #### S ED, CRP, STROKE #### [facility] [address] [place] [address] Agitator Operator: Bowen Lemon MD Chloride [Moles/Vol] 106 mmol/L Normal 98-107 [facility] Comment on above: Performed By: #### S ED, CRP, STROKE #### [facility] [address] [place] [id number] Agitator Operator: Bowen Lemon MD CO2 [Moles/Vol] 19 mmol/L Low 20-31 [facility] Comment on above: Performed By: #### S ED, CRP, STROKE #### [facility] [address] [place] [place] [id number] Agitator Operator: Bowen Lemon MD Creatinine [Mass/Vol] 0.87 mg/dL Normal 0.70-1.20 [facility] Comment on above: Performed By: #### S ED, CRP, STROKE #### [facility] [address] [place] [address] [id number] Agitator Operator: Bowen Lemon MD GFR, Amer >60 Normal >60 [facility] Comment on above: Performed By: #### S ED, CRP, STROKE #### [facility] [address] [place] [address] Agitator Operator: Bowen Lemon MD GFR,non Amer >60 Normal >60 [facility] Comment on above: Performed By: #### S ED, CRP, STROKE #### [facility] [address] [place] [address] [id number] Agitator Operator: Bowen Lemon MD Glucose [Mass/Vol] 161 mg/dL High 70-99 [facility] Comment on above: Performed By: #### S ED, CRP, STROKE #### [address] [address] Agitator Operator: Bowen Lemon MD Potassium [Moles/Vol] 4.0 mmol/L Normal 3.7-5.3 [facility] Comment on above: Performed By: #### S ED, CRP, STROKE #### [address] [address] Agitator Operator: Bowen Lemon MD Sodium [Moles/Vol] 139 mmol/L Normal 135-144 [facility] Comment on above: Performed By: #### S ED, CRP, STROKE #### [facility] [address] [place] [address] [id number] Agitator Operator: Bowen Lemon MD Urea nitrogen [Mass/Vol] 11 mg/dL Normal 8-23 [facility] Comment on above: Performed By: #### S ED, CRP, STROKE #### [facility] [address] [place] [address] [id number] Agitator Operator: Bowen Lemon MD BUN/CRE Ratio NOT REPORTED Normal 9-20 [facility] Comment on above: Performed By: #### S ED, CRP, STROKE #### [facility] [address] [place], [place] [id number] Agitator Operator: Bowen Lemon MD Staging: NOT REPORTED Normal [facility] Comment on above: Performed By: #### S ED, CRP, STROKE #### [facility] [address] [place], [place] [phone] Agitator Operator: Bowen Lemon MD Basic Metabolic Panel w/ Ref darlene to MGOrdered By: Jarek Osborn on 05-02-2021 Anion gap [Moles/Vol] 14 mmol/L 9 - 17 mmol/L [facility] Phone: Calcium [Mass/Vol] 9.4 mg/dL 8.6 - 10. 4 mg/dL [facility] Phone: Chloride [Moles/Vol] 106 mmol/L 98 - 10 7 mmol/L [facility] Phone: CO2 [Moles/Vol] 19 mmol/L Low 20 - 31 mmol/L [facility] Phone: Creatinine [Mass/Vol] 0.87 mg/dL 0.70 - 1.20 mg/dL [facility] Phone: GFR >60 >60 mL/min [facility] Phone: GFR Non- >60 >60 mL/min [facility] Phone: GFR/1.73 sq M.predicted MDRD (S/P/Bld) [Vol rate/Area] [facility] Phone: Comment on above: Average GFR for 60-6 9 years old: 85 mL/min/1.73sq m Chronic Kidney Disease: <60 mL/min/1.73sq m Kidney failure: <15 mL/min/1.73sq m eGFR calculated using average adult body mass. Additional eGFR calculator available at: http://www.[employer]/multiple_crcl_2012.htm GFR/1.73 sq M.predicted MDRD (S/P/Bld) [Vol rate/Area] NOT REPORTED [facility] Phone: Glucose [Mass/Vol] 161 mg/dL High 70 - 99 mg/dL [facility] Phone: Potassium [Moles/Vol] 4.0 mmol/L 3.7 - 5.3 mmol/L [facility] Phone: Sodium [Moles/Vol] 139 mmol/L 135 - 144 mmol/L [facility] Phone: Urea nitrogen (BldV) [Mass/Vol] 11 mg/dL 8 - 23 mg/dL [facility] Phone: Urea nitrogen/Creatinine (Bld) [Mass ratio] NOT REPORTED [facility] Phone: Catheterization and angiogra phy procedure details panelOrdered By: Ning Wallace on 05-02-2021 Cardiac Intervention al Report Demographics Patient REHAN Bryant Date of Study 05/02/2021 Name Date of 1955 Gender Male Age 65 year(s) Race Room [id number]^ALIA^NING Height: 72 inch, 182.88 cm Number Corporate [id number] Weight: 223 pounds, 101.2 kg ID # Patient [id number] BSA: 2.23 m^2 BMI: 30.24 Acct # kg/m^2 MR # [id number] Performing Nikolas Bojorquez Physician Referring # Physician Assisting Physician Additional Comments H&P reviewed and patient examined by performing physician prior to the procedure on 05/02/21 at No changes noted. If changes, see note below. ASA Classification / Mallampati : per Physician. ASA & Mallampati documented in Epic by Physician. Procedure Procedure Type: PCI procedure: PTCA / Drug Eluting Stent:, CX and / or branches Complications: - No complication Indications: - NSTEMI - Coronary lesion - more than 50% Conclusions Procedure Summary 1. Multivessel CAD (Patient deemed not a candidate for CABG due to CVA) 2. Successful PCI / Drug Eluting Stent of the mid Circumflex Coronary Artery. Recommendations Routine Post Stent Orders. optimize medical therapy Consideration of PCI of LAD/Diag in 6 weeks if remains symptomatic Signature Angiographic Findings Cardiac Arteries and Lesion Findings LMCA: Proximal 40% stenosis with ventriculization of the pressure. LAD: Ostial to mid diffuse 60-70% stenosis. Distal 75% stenosis. Diag is intermediate to large caliber with proximal 70% stenosis LCx: Mid long 80% stenosis, reduced to 0% with PTCA/FLORESITA. Mid to distal vessel has 40% stenosis OM has proximal FOOT CASTER and supplied by [employer] Lesion on Mid CX: Mid subsection.85% stenosis 20 mm length reduced to 0%. Pre procedure FLOR III flow was noted. Post Procedure FLOR III flow was present. Good runoff was present. The lesion was diagnosed as Moderate Risk (B). Devices used - Runthrough NS. Number of passes: 1. - Trek Balloon 2.5mm x 20mm. 2 inflation(s) to a max pressure of: 13 christoph. - Xience Becky 3.0 x 23 FLORESITA. 1 inflation(s) to a max pressure of: 14 christoph. Coronary Tree Dominance: Right LV function assessed as:Normal. Procedure Data Procedure Start Time: 05/02/2021 16:05. Procedure End Time: 05/02/2021 16:32. The procedure was explained in detail to the patient. Risks, complications and alternative treatments were reviewed. Written consent was obtained. Interventional Cath Status: Urgent Entry Locations - Retrograde Percutaneous access was performed through the Right Radial artery. A 6 Fr sheath was inserted. Hemostasis was successfully obtained using Vasc Band. Diagnostic catheters: - 6 Fr. EBU 3.5 Guide Catheterwas used for Left coronary angiography. Procedure Medications: - Versed I.V. 2 mg. - Fentanyl I.V. 50 mcg. - Lidocaine HCl 1% 10mg/ml S.Q. 5 ml. - Heparin I.A. 2000 units. - Nitroglycerin I.A. 200 mcg. - Verapamil I.A. 2.5 mg. - Heparin I.A. 4000 units. - 0.9 % NaCl I.V. bolus ml. - Nitroglycerin I.C. 200 mcg. - Heparin I.V. bolus 2000 units. - Plavix P.O. 600 mg. - Aspirin P.O. 243 mg. Contrast Material: - Isovue 20126 ml Fluoroscopy Time: Diagnostic: 8:54 minutes. Total: 8:54 minutes. Medical History Allergies - *No Known Allergies allergy. Risk Factors The patient risk factors include:obesity, physical activity, treated hypercholesterolemia, treated hypertension, family history of premature CAD, orally-treated diabetes mellitus, chronic lung disease, last creatinine: 0.8 mg/dl, creatinine clearance: 135.22 ml/min, dyslipidemia and former tobacco use. 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 Hemodynamics Condition: Baseline Room Air Estimated: 266.29Heart Rate: 76 bpm Pressure +-----+ + !Site !Pressure ! +-----+ + !AO !96/54 (66) (more content not included)... [facility] Phone: Adam, Mhpn Incoming C ardio Results From Cpacs/Ge - 05/02/2021 5:39 PM EDT Cardiac Interventional Report Demographics Patient REHAN Bryant Date of Study 05/02/2021 Name Date of 1955 Gender Male Age 65 year(s) Race Room 0100198^ALIA^NING Height: 72 inch, 182.88 cm Number Corporate [id number] Weight: 223 pounds, 101.2 kg ID # Patient [id number] BSA: 2.23 m^2 BMI: 30.24 Acct # kg/m^2 MR # [id number] Performing Nikolas Bojorquez Physician Referring # Physician Assisting Physician Additional Comments H&P reviewed and patient examined by performing physician prior to the procedure on 05/02/21 at No changes noted. If changes, see note below. ASA Classification / Mallampati : per Physician. ASA & Mallampati documented in [facility] by Physician. Procedure Procedure Type: PCI procedure: PTCA / Drug Eluting Stent:, CX and / or branches Complications: - No complication Indications: - NSTEMI - Coronary lesion - more than 50% Conclusions Procedure Summary 1. Multivessel CAD (Patient deemed not a candidate for CABG due to CVA) 2. Successful PCI / Drug Eluting Stent of the mid Circumflex Coronary Artery. Recommendations Routine Post Stent Orders. optimize medical therapy Consideration of PCI of LAD/Diag in 6 weeks if remains symptomatic Signature Angiographic Findings Cardiac Arteries and Lesion Findings LMCA: Proximal 40% stenosis with ventriculization of the pressure. LAD: Ostial to mid diffuse 60-70% stenosis. Distal 75% stenosis. Diag is intermediate to large caliber with proximal 70% stenosis LCx: Mid long 80% stenosis, reduced to 0% with PTCA/FLORESITA. Mid to distal vessel has 40% stenosis OM has proximal FOOT CASTER and supplied by [employer] Lesion on Mid CX: Mid subsection.85% stenosis 20 mm length reduced to 0%. Pre procedure FLOR III flow was noted. Post Procedure FLOR III flow was present. Good runoff was present. The lesion was diagnosed as Moderate Risk (B). Devices used - Runthrough NS. Number of passes: 1. - Trek Balloon 2.5mm x 20mm. 2 inflation(s) to a max pressure of: 13 christoph. - Xience Becky 3.0 x 23 FLORESITA. 1 inflation(s) to a max pressure of: 14 christoph. Coronary Tree Dominance: Right LV function assessed as:Normal. Procedure Data Procedure Start Time: 05/02/2021 16:05. Procedure End Time: 05/02/2021 16:32. The procedure was explained in detail to the patient. Risks, complications and alternative treatments were reviewed. Written consent was obtained. Interventional Cath Status: Urgent Entry Locations - Retrograde Percutaneous access was performed through the Right Radial artery. A 6 Fr sheath was inserted. Hemostasis was successfully obtained using Vasc Band. Diagnostic catheters: - 6 Fr. EBU 3.5 Guide Catheterwas used for Left coronary angiography. Procedure Medications: - Versed I.V. 2 mg. - Fentanyl I.V. 50 mcg. - Lidocaine HCl 1% 10mg/ml S.Q. 5 ml. - Heparin I.A. 2000 units. - Nitroglycerin I.A. 200 mcg. - Verapamil I.A. 2.5 mg. - Heparin I.A. 4000 units. - 0.9 % NaCl I.V. bolus ml. - Nitroglycerin I.C. 200 mcg. - Heparin I.V. bolus 2000 units. - Plavix P.O. 600 mg. - Aspirin P.O. 243 mg. Contrast Material: - Isovue 19812 ml Fluoroscopy Time: Diagnostic: 8:54 minutes. Total: 8:54 minutes. Medical History Allergies - *No Known Allergies allergy. Risk Factors The patient risk factors include:obesity, physical activity, treated hypercholesterolemia, treated hypertension, family history of premature CAD, orally-treated diabetes mellitus, chronic lung disease, last creatinine: 0.8 mg/dl, creatinine clearance: 135.22 ml/min, dyslipidemia and former tobacco use. 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 Hemodynamics Condition: Baseline Room Air Estimated: 266.29Heart Rate: 76 bpm Pressure +-----+ + !Site !Pressure ! +-----+ + !AO !96/54 (66) ! +-----+ + Shunts Oxygen Values O2 [id number] Qnuaxistorp789.29 [facility] Phone: [facility] Phone: Catheterization and angiogra phy procedure details panelOrdered By: Unknown Result on 05-02-2021 [facility] Phone: MAGNESIUMOrdered By: Gee Parnell on 05-02-2021 Magnesium [Mass/Vol] 1.5 mg/dL Low 1.6 - 2 .6 mg/dL [facility] Phone: Magnesiumon 05-02-2021 Magnesium [Mass/Vol] 1.5 mg/dL Low 1.6-2.6 [facility] Comment on above: Performed By: #### S ED, CRP, STROKE #### [facility] [address] [place] [address] Agitator Operator: Bowen Lemon MD No Panel InformationOrdered By: Jarek Osborn on 05-02-2021 Interpretation and review of laboratory results Abnormal [facility] Phone: [facility] Phone: POC Glucose FingerstickOrder ed By: Ning Wallace on 05-02-2021 Glucose [Mass/Vol] 171 mg/dL High 75 - 110 mg/dL [facility] Phone: Interpretation and review of laboratory results Abnormal [facility] Phone: [facility] Phone: Glucose [Mass/Vol] 152 mg/dL High 75 - 110 mg/dL [facility] Phone: Interpretation and review of laboratory results Abnormal [facility] Phone: [facility] Phone: Glucose [Mass/Vol] 170 mg/dL High 75 - 110 mg/dL [facility] Phone: Interpretation and review of laboratory results Abnormal [facility] Phone: [facility] Phone: Glucose [Mass/Vol] 163 mg/dL High 75 - 110 mg/dL [facility] Phone: Interpretation and review of laboratory results Abnormal [facility] Phone: [facility] Phone: APTTon 05-01-2021 aPTT Coag (Bld) [Time] 56.9 s High 20.5-30.5 [facility] Comment on above: Result Comment: IV Heparin Therapy Range: 48.6-77.8 Performed By: #### S ED, CRP, STROKE #### [facility] [address] [place] [address] [phone] Agitator Operator: Bowen Lemon MD APTTOrdered By: Gee kim on 05-01-2021 aPTT Coag (Bld) [Time] 56.9 s High [facility] Work Phone: Comment on above: IV Heparin Therapy Range: 48.6-77.8 Interpretation and review of laboratory results Abnormal [facility] Phone: [facility] Phone: Basic Metab w/rfx MGon 05-01 (cont.) Normal [facility] Comment on above: Result Comment: Aver age GFR for 60-69 years old: 85 mL/min/1.73sq m Chronic Kidney Disease: <60 mL/min/1.73sq m Kidney failure: <15 mL/min/1.73sq m eGFR calculated using average adult body mass. Additional eGFR calculator available at: http://www.[employer]/multiple_crcl_2012.htm Performed By: #### S ED, CRP, STROKE #### [facility] [address] [place] [id number] Agitator Operator: Bowen Lemon MD Anion gap [Moles/Vol] 14 mmol/L Normal 9-17 [facility] Comment on above: Performed By: #### S ED, CRP, STROKE #### [facility] [address] [place] [address] [phone] Agitator Operator: Bowen Lemon MD Calcium [Mass/Vol] 9.6 mg/dL Normal 8.6-10.4 [facility] Comment on above: Performed By: #### S ED, CRP, STROKE #### [facility] [address] [place] [address] [phone] Agitator Operator: Bowen Lemon MD Chloride [Moles/Vol] 105 mmol/L Normal 98-107 [facility] Comment on above: Performed By: #### S ED, CRP, STROKE #### [facility] [address] [place] [phone] Agitator Operator: Bowen Lemon MD CO2 [Moles/Vol] 20 mmol/L Normal 20-31 [facility] Comment on above: Performed By: #### S ED, CRP, STROKE #### [facility] [address] [place] [phone] Agitator Operator: Bowen Lemon MD Creatinine [Mass/Vol] 0.62 mg/dL Low 0.70-1.20 [facility] Comment on above: Performed By: #### S ED, CRP, STROKE #### [facility] [address] [place] [phone] Agitator Operator: Bowen Lemon MD GFR, Amer >60 Normal >60 [facility] Comment on above: Performed By: #### S ED, CRP, STROKE #### [facility] [address] [place] [phone] Agitator Operator: Bowen Lemon MD GFR,non Amer >60 Normal >60 [facility] Comment on above: Performed By: #### S ED, CRP, STROKE #### [facility] [address] [place] [phone] Agitator Operator: Bowen Lemon MD Glucose [Mass/Vol] 185 mg/dL High 70-99 [facility] Comment on above: Performed By: #### S ED, CRP, STROKE #### [facility] [address] [place] [phone] Agitator Operator: Bowen Lemon MD Potassium [Moles/Vol] 4.3 mmol/L Normal 3.7-5.3 [facility] Comment on above: Result Comment: SPEC IMEN SLIGHTLY HEMOLYZED, RESULTS MAY BE ADVERSELY AFFECTED. Performed By: #### S ED, CRP, STROKE #### [facility] [address] [place] [address] Agitator Operator: Bowen Lemon MD Sodium [Moles/Vol] 139 mmol/L Normal 135-144 [facility] Comment on above: Performed By: #### S ED, CRP, STROKE #### [facility] [address] [place] [address] Agitator Operator: Bowen Lemon MD Urea nitrogen [Mass/Vol] 14 mg/dL Normal 8- [facility] Comment on above: Performed By: #### S ED, CRP, STROKE #### [facility] [address] [place] [address] Agitator Operator: Bowen Lemon MD BUN/CRE Ratio NOT REPORTED Normal - [facility] Comment on above: Performed By: #### S ED, CRP, STROKE #### [facility] [address] [place] [address] Agitator Operator: Bowen Lemon MD Staging: NOT REPORTED Normal [facility] Comment on above: Performed By: #### S ED, CRP, STROKE #### [facility] [place] [address] Agitator Operator: Bowen Lemon MD Basic Metabolic Panel w/ Ref darlene to MGOrdered By: Jarek Osborn on 05-01-2021 Anion gap [Moles/Vol] 14 mmol/L 9 - 17 mmol/L [facility] Phone: Calcium [Mass/Vol] 9.6 mg/dL 8.6 - 10. 4 mg/dL [facility] Phone: Chloride [Moles/Vol] 105 mmol/L 98 - 10 7 mmol/L [facility] Phone: CO2 [Moles/Vol] 20 mmol/L 20 - 31 mmol/L [facility] Phone: Creatinine [Mass/Vol] 0.62 mg/dL Low 0.70 - 1.20 mg/dL [facility] Phone: GFR >60 >60 mL/min [facility] Phone: GFR Non- >60 >60 mL/min [facility] Phone: GFR/1.73 sq M.predicted MDRD (S/P/Bld) [Vol rate/Area] [facility] Phone: Comment on above: Average GFR for 60-6 9 years old: 85 mL/min/1.73sq m Chronic Kidney Disease: <60 mL/min/1.73sq m Kidney failure: <15 mL/min/1.73sq m eGFR calculated using average adult body mass. Additional eGFR calculator available at: http://www.[employer]/multiple_crcl_2012.htm GFR/1.73 sq M.predicted MDRD (S/P/Bld) [Vol rate/Area] NOT REPORTED [facility] Phone: Glucose [Mass/Vol] 185 mg/dL High 70 - 99 mg/dL [facility] Phone: Interpretation and review of laboratory results Abnormal [facility] Phone: Potassium [Moles/Vol] 4.3 mmol/L 3.7 - 5.3 mmol/L [facility] Phone: Comment on above: SPECIMEN SLIGHTLY HE MOLYZED, RESULTS MAY BE ADVERSELY AFFECTED. Sodium [Moles/Vol] 139 mmol/L 135 - 144 mmol/L [facility] Phone: Urea nitrogen (BldV) [Mass/Vol] 14 mg/dL 8 - 23 mg/dL [facility] Phone: Urea nitrogen/Creatinine (Bld) [Mass ratio] NOT REPORTED [facility] Phone: [facility] Work Phone: CBCon 05-01-2021 Erythrocyte distribution width (RBC) [Ratio] 14.3 % Normal 11.8-14.4 [facility] Comment on above: Performed By: #### S ED, CRP, STROKE #### [facility] [address] [place] [phone] Agitator Operator: Bowen Lemon MD Hematocrit (Bld) [Volume fraction] 38.2 % Low 40.7-50.3 [facility] Comment on above: Performed By: #### S ED, CRP, STROKE #### [facility] [address] [place] [phone] Agitator Operator: Bowen Lemon MD Hemoglobin (Bld) [Mass/Vol] 12.6 g/dL Low 13.0-17.0 [facility] Comment on above: Performed By: #### S ED, CRP, STROKE #### [facility] [address] [place] [phone] Agitator Operator: Bowen Lemon MD MCH (RBC) [Entitic mass] 30.7 pg Normal 25.2-33.5 [facility] Comment on above: Performed By: #### S ED, CRP, STROKE #### [facility] [address] [place] [phone] Agitator Operator: Bowen Lemon MD MCHC (RBC) [Mass/Vol] 33.0 g/dL Normal 28.4-34.8 [facility] Comment on above: Performed By: #### S ED, CRP, STROKE #### [facility] [address] [place] [phone] Agitator Operator: Bowen Lemno MD MCV (RBC) [Entitic vol] 93.2 fL Normal 82.6-102.9 [facility] Comment on above: Performed By: #### S ED, CRP, STROKE #### [facility] [address] [place] [id number] Agitator Operator: Bowen Lemon MD NRBC Automated 0.0 per 100 WBC Normal 0.0 [facility] Comment on above: Performed By: #### S ED, CRP, STROKE #### [facility] [address] [place] [phone] Agitator Operator: Bowen Lemon MD Platelet mean volume (Bld) [Entitic vol] 10.9 fL Normal 8.1-13.5 [facility] Comment on above: Performed By: #### S ED, CRP, STROKE #### [facility] [address] [place] [phone] Agitator Operator: Bowen Lemon MD Platelets (Bld) [#/Vol] 250 10*3/uL Normal 138-453 [facility] Comment on above: Performed By: #### S ED, CRP, STROKE #### [facility] [address] [place] [phone] Agitator Operator: Bowen Lemon MD RBC (Bld) [#/Vol] 4.10 10*6/uL Low 4.21-5.77 [facility] Comment on above: Performed By: #### S ED, CRP, STROKE #### [address] [address] Agitator Operator: Bowen Lemon MD WBC (Bld) [#/Vol] 7.3 10*3/uL Normal 3.5-11.3 [facility] Comment on above: Performed By: #### S ED, CRP, STROKE #### [address] [address] Agitator Operator: Bowen Lemon MD CBCOrdered By: Gee benoit on 05-01-2021 Hematocrit (Bld) [Volume fraction] 38.2 % Low 40.7 - 50.3 % [facility] Work Phone: Hemoglobin.gastrointest inal spec 1 Ql (Stl) 12.6 g/dL Low 13.0 - 17.0 g/dL [facility] Phone: Interpretation and review of laboratory results Abnormal [facility] Phone: MCH (RBC) [Entitic mass] 30.7 pg 25.2 - 33.5 pg [facility] Phone: MCHC (RBC) [Mass/Vol] 33.0 g/dL 28.4 - 34.8 g/dL [facility] Phone: MCV (RBC) [Entitic vol] 93.2 fL 82.6 - 102.9 fL [facility] Phone: NRBC Automated 0.0 0.0 per 100 WBC [facility] Phone: Platelet distribution width (Bld) [Ratio] 14.3 % 11.8 - 14.4 % [facility] Phone: Platelet mean volume (Bld) [Entitic vol] 10.9 fL 8.1 - 13.5 fL [facility] Phone: Platelets (Bld) [#/Vol] 250 10*3/uL [facility] Phone: RBC (Bld) [#/Vol] 4.10 10*6/uL Low 4.21 - 5.77 m/uL [facility] Phone: WBC (Bld) [#/Vol] 7.3 10*3/uL [facility] Phone: [facility] Phone: Cult,Bloodon 05-01-2021 Cult,Blood Specimen Description .BLOOD Special Requests R ARM 1 ML Culture NO GROWTH 6 DAYS Report Status FINAL 05/01/2021 Normal [facility] Comment on above: Performed By: #### S ED, CRP, STROKE #### [facility] [address] [place] [address] Agitator Operator: Bowen Lemon MD Cult,Blood Specimen Description .BLOOD Special Requests L ARM 2 ML Culture NO GROWTH 6 DAYS Report Status FINAL 05/01/2021 Normal [facility] Comment on above: Performed By: #### S ED, CRP, STROKE #### [facility] [address] [place] [address] Agitator Operator: Bowen Lemon MD Culture, Blood 1Ordered By: Jarek Osborn on 05-01-2021 Special Requests R ARM 1 ML [facility] Phone: Special Requests L ARM 2 ML [facility] Phone: Specimen Description .BLOOD [facility] Phone: [facility] Phone: Laboratory - Microbiology an d Antimicrobial susceptibilityOrdered By: Jarek Osborn on 05-01-2021 Bacteria identified Cx Nom (Unsp spec) NO GROWTH 6 DAYS [facility] Phone: POC Glucose FingerstickOrder ed By: Ning Wallace on 05-01-2021 Glucose [Mass/Vol] 207 mg/dL High 75 - 110 mg/dL [facility] Phone: Interpretation and review of laboratory results Abnormal [facility] Phone: [facility] Phone: Glucose [Mass/Vol] 204 mg/dL High 75 - 110 mg/dL [facility] Phone: Interpretation and review of laboratory results Abnormal [facility] Phone: [facility] Phone: Glucose [Mass/Vol] 170 mg/dL High 75 - 110 mg/dL [facility] Phone: Interpretation and review of laboratory results Abnormal [facility] Phone: [facility] Phone: APTTon 04-30-2021 aPTT Coag (Bld) [Time] 55.9 s High 20.5-30.5 [facility] Comment on above: Result Comment: IV Heparin Therapy Range: 48.6-77.8 Performed By: #### S ED, CRP, STROKE #### [facility] [address] [place] [place] [address] [phone] Agitator Operator: Bowen Lemon MD aPTT Coag (Bld) [Time] 71.1 s High 20.5-30.5 [facility] Comment on above: Result Comment: IV Heparin Therapy Range: 48.6-77.8 Performed By: #### S ED, CRP, STROKE #### [facility] [address] [place] [address] [phone] Agitator Operator: Bowen Lemon MD aPTT Coag (Bld) [Time] 59.1 s High 20.5-30.5 [facility] Comment on above: Result Comment: IV Heparin Therapy Range: 48.6-77.8 Performed By: #### S ED, CRP, STROKE #### [employer] [address] [place] [address] [phone] Agitator Operator: Bowen Lemon MD APTTOrdered By: Ning martines on 04-30-2021 aPTT Coag (Bld) [Time] 55.9 s High [facility] Phone: Comment on above: IV Heparin Therapy Range: 48.6-77.8 Interpretation and review of laboratory results Abnormal [facility] Phone: [facility] Phone: APTTOrdered By: Gee kim on 04-30-2021 aPTT Coag (Bld) [Time] 71.1 s High [facility]: Comment on above: IV Heparin Therapy Range: 48.6-77.8 Interpretation and review of laboratory results Abnormal [facility] Phone: [facility] Phone: aPTT Coag (Bld) [Time] 59.1 s High [facility] Phone: Comment on above: IV Heparin Therapy Range: 48.6-77.8 Interpretation and review of laboratory results Abnormal [facility]: [facility] Phone: Basic Metab w/rfx MGon 04-30 (cont.) Normal [facility] Comment on above: Result Comment: Aver age GFR for 60-69 years old: 85 mL/min/1.73sq m Chronic Kidney Disease: <60 mL/min/1.73sq m Kidney failure: <15 mL/min/1.73sq m eGFR calculated using average adult body mass. Additional eGFR calculator available at: http://www.[employer]/multiple_crcl_2012.htm Performed By: #### S ED, CRP, STROKE #### [facility] [address] [place] [address] Agitator Operator: Bowen Lemon MD Anion gap [Moles/Vol] 12 mmol/L Normal 9-17 [facility] Comment on above: Performed By: #### S ED, CRP, STROKE #### [facility] [address] [place], [place] [phone] Agitator Operator: Bowen Lemon MD Calcium [Mass/Vol] 9.2 mg/dL Normal 8.6-10.4 [facility] Comment on above: Performed By: #### S ED, CRP, STROKE #### [facility] [address] [place] [address] [phone] Agitator Operator: Bowen Lemon MD Chloride [Moles/Vol] 103 mmol/L Normal 98-107 [facility] Comment on above: Performed By: #### S ED, CRP, STROKE #### [facility] [address] [place] [address] Agitator Operator: Bowen Lemon MD CO2 [Moles/Vol] 19 mmol/L Low 20-31 [facility] Comment on above: Performed By: #### S ED, CRP, STROKE #### [facility] [address] [place] [phone] Agitator Operator: Bowen Lemon MD Creatinine [Mass/Vol] 0.74 mg/dL Normal 0.70-1.20 [facility] Comment on above: Performed By: #### S ED, CRP, STROKE #### [facility] [address] [place] [address] [phone] Agitator Operator: Bowen Lemon MD GFR, Amer >60 Normal >60 [facility] Comment on above: Performed By: #### S ED, CRP, STROKE #### [facility] [address] [place] [address] [phone] Agitator Operator: Bowen Lemon MD GFR,non Amer >60 Normal >60 [facility] Comment on above: Performed By: #### S ED, CRP, STROKE #### [facility] [address] [place] [address] [phone] Agitator Operator: Bowen Lemon MD Glucose [Mass/Vol] 180 mg/dL High 70-99 [facility] Comment on above: Performed By: #### S ED, CRP, STROKE #### [facility] [address] [place] [address] Agitator Operator: Bowen Lemon MD Potassium [Moles/Vol] 4.0 mmol/L Normal 3.7-5.3 [facility] Comment on above: Performed By: #### S ED, CRP, STROKE #### [facility] [address] [place] [phone] Agitator Operator: Bowen Lemon MD Sodium [Moles/Vol] 134 mmol/L Low 135-144 [facility] Comment on above: Performed By: #### S ED, CRP, STROKE #### [facility] [address] [place] [address] Agitator Operator: Boewn Lemon MD Urea nitrogen [Mass/Vol] 9 mg/dL Normal 8- [facility] Comment on above: Performed By: #### S ED, CRP, STROKE #### [facility] [address] [place] [address] Agitator Operator: Bowen Lemon MD BUN/CRE Ratio NOT REPORTED Normal - [facility] Comment on above: Performed By: #### S ED, CRP, STROKE #### [facility] [address] [place] [address] Agitator Operator: Bowen Lemon MD Staging: NOT REPORTED Normal [facility] Comment on above: Performed By: #### S ED, CRP, STROKE #### [facility] [address] [place] [address] Agitator Operator: Bowen Lemon MD Basic Metabolic Panel w/ Ref darlene to MGOrdered By: Jarek Osborn on 04-30-2021 Anion gap [Moles/Vol] 12 mmol/L 9 - 17 mmol/L [facility] Phone: Calcium [Mass/Vol] 9.2 mg/dL 8.6 - 10. 4 mg/dL [facility] Phone: Chloride [Moles/Vol] 103 mmol/L 98 - 10 7 mmol/L [facility] Phone: CO2 [Moles/Vol] 19 mmol/L Low 20 - 31 mmol/L [facility] Phone: Creatinine [Mass/Vol] 0.74 mg/dL 0.70 - 1.20 mg/dL [facility] Phone: GFR >60 >60 mL/min [facility] Phone: GFR Non- >60 >60 mL/min [facility] Phone: GFR/1.73 sq M.predicted MDRD (S/P/Bld) [Vol rate/Area] [facility] Phone: Comment on above: Average GFR for 60-6 9 years old: 85 mL/min/1.73sq m Chronic Kidney Disease: <60 mL/min/1.73sq m Kidney failure: <15 mL/min/1.73sq m eGFR calculated using average adult body mass. Additional eGFR calculator available at: http://www.[employer]/multiple_crcl_2012.htm GFR/1.73 sq M.predicted MDRD (S/P/Bld) [Vol rate/Area] NOT REPORTED [facility] Phone: Glucose [Mass/Vol] 180 mg/dL High 70 - 99 mg/dL [facility] Phone: Interpretation and review of laboratory results Abnormal [facility] Phone: Potassium [Moles/Vol] 4.0 mmol/L 3.7 - 5.3 mmol/L [facility] Phone: Sodium [Moles/Vol] 134 mmol/L Low 135 - 144 mmol/L [facility] Phone: Urea nitrogen (BldV) [Mass/Vol] 9 mg/dL 8 - 23 mg/dL [facility] Phone: Urea nitrogen/Creatinine (Bld) [Mass ratio] NOT REPORTED [facility] Phone: [facility] Phone: POC Glucose FingerstickOrder ed By: Ning Wallace on 04-30-2021 Glucose [Mass/Vol] 242 mg/dL High 75 - 110 mg/dL [facility] Phone: Interpretation and review of laboratory results Abnormal [facility] Phone: [facility] Phone: Glucose [Mass/Vol] 220 mg/dL High 75 - 110 mg/dL [facility] Phone: Interpretation and review of laboratory results Abnormal [facility] Phone: [facility] Phone: Glucose [Mass/Vol] 189 mg/dL High 75 - 110 mg/dL [facility] Phone: Interpretation and review of laboratory results Abnormal [facility] Phone: [facility] Phone: Glucose [Mass/Vol] 226 mg/dL High 75 - 110 mg/dL [facility] Phone: Interpretation and review of laboratory results Abnormal [facility] Phone: [facility] Phone: APTTon 04-29-2021 aPTT Coag (Bld) [Time] 94.2 s Critically high 20.5-30. 5 [facility] Comment on above: Result Comment: IV Heparin Therapy Range: 48.6-77.8 Performed By: #### S ED, CRP, STROKE #### [employer] [facility] [place], [place] [phone] Agitator Operator: Bowen Lemon MD aPTT Coag (Bld) [Time] 46.3 s High 20.5-30.5 [facility] Comment on above: Result Comment: IV Heparin Therapy Range: 48.6-77.8 Performed By: #### S ED, CRP, STROKE #### [employer] [address] [place], [place] [phone] Agitator Operator: Bowen Lemon MD aPTT Coag (Bld) [Time] 69.2 s High 20.5-30.5 [facility] Comment on above: Result Comment: IV Heparin Therapy Range: 48.6-77.8 Performed By: #### S ED, CRP, STROKE #### [facility] [address] [place], [place] [phone] Agitator Operator: Bowen Lemon MD aPTT Coag (Bld) [Time] 69.1 s High 20.5-30.5 [facility] Comment on above: Result Comment: IV Heparin Therapy Range: 48.6-77.8 Performed By: #### S ED, CRP, STROKE #### [facility] [address] [place], [place] [phone] Agitator Operator: Bowen Lemon MD aPTT Coag (Bld) [Time] 49.2 s High 20.5-30.5 [facility] Comment on above: Result Comment: IV Heparin Therapy Range: 48.6-77.8 Performed By: #### P TT ####[employer] [address] [place], [place] [phone] Lab Director: Bowen Lemon MD APTTOrdered By: Ning martines on 04-29-2021 aPTT Coag (Bld) [Time] 94.2 s Critically high [facility] Phone: Comment on above: IV Heparin Therapy Range: 48.6-77.8 Interpretation and review of laboratory results Abnormal [facility] Phone: [facility] Phone: aPTT Coag (Bld) [Time] 46.3 s High [facility] Phone: Comment on above: IV Heparin Therapy Range: 48.6-77.8 Interpretation and review of laboratory results Abnormal [facility] Phone: [facility] Phone: aPTT Coag (Bld) [Time] 69.2 s High [facility] Phone: Comment on above: IV Heparin Therapy Range: 48.6-77.8 Interpretation and review of laboratory results Abnormal [facility] Phone: [facility] Phone: aPTT Coag (Bld) [Time] 69.1 s High [facility] Phone: Comment on above: IV Heparin Therapy Range: 48.6-77.8 Interpretation and review of laboratory results Abnormal [facility] Phone: [facility] Phone: Basic Metab w/rfx MGon 04-29 (cont.) Normal [facility] Comment on above: Result Comment: Aver age GFR for 60-69 years old: 85 mL/min/1.73sq m Chronic Kidney Disease: <60 mL/min/1.73sq m Kidney failure: <15 mL/min/1.73sq m eGFR calculated using average adult body mass. Additional eGFR calculator available at: http://www.[employer]/multiple_crcl_2012.htm Performed By: #### Patrick WELLS BMPX ####[facility] [address] [place] [address] 0[address] Lab Director: Bowen Lemon MD Anion gap [Moles/Vol] 10 mmol/L Normal 9-17 [facility] Comment on above: Performed By: #### C RUSSELL BMPX ####[facility] North[facility]ber[facility] [address]scq[address] [place], [place] [phone] Lab Director: Bowen Lemon MD Calcium [Mass/Vol] 8.9 mg/dL Normal 8.6-10.4 [facility] Comment on above: Performed By: #### C RUSSELL, BMPX ####[facility] [address] [place], [place] [phone] lab Director: Bowen Lemon MD Chloride [Moles/Vol] 106 mmol/L Normal 98-107 [facility] Comment on above: Performed By: #### C BC, BMPX ####[facility] [address] [place], [place] [phone] Director: Bowen Lemon MD CO2 [Moles/Vol] 22 mmol/L Normal 20-31 [facility] Comment on above: Performed By: #### C BC, BMPX ####[facility] [address] [place] [address] Lab Director: Bowen Lemon MD Creatinine [Mass/Vol] 0.72 mg/dL Normal 0.70-1.20 [facility] Comment on above: Performed By: #### C BC, BMPX ####[facility] [address] [place] [address] Lab Director: Bowen Lemon MD GFR, Amer >60 Normal >60 [facility] Comment on above: Performed By: #### C BC, BMPX ####[facility] [address] [place], [place] [phone] Director: Bowen Lemon MD GFR,non Amer >60 Normal >60 [facility] Comment on above: Performed By: #### C BC, BMPX ####[facility] [address] [place], [place] [phone] Director: Bowen Lemon MD Glucose [Mass/Vol] 172 mg/dL High 70-99 [facility] Comment on above: Performed By: #### C BC, BMPX ####[facility] [address] [place], [place] [phone] Director: Bowen Lemon MD Potassium [Moles/Vol] 3.9 mmol/L Normal 3.7-5.3 [facility] Comment on above: Performed By: #### C BC, BMPX ####[facility] [address] [place], [place] [phone] Director: Bowen Lemon MD Sodium [Moles/Vol] 138 mmol/L Normal 135-144 [facility] Comment on above: Performed By: #### C BC, BMPX ####[facility] [address]qi27[address] [place] [address] Lab Director: Bowen Lemon MD Urea nitrogen [Mass/Vol] 11 mg/dL Normal 8- [facility] Comment on above: Performed By: #### C BC, BMPX ####[facility] [address] [place] [address] Lab Director: Bowen Lemon MD BUN/CRE Ratio NOT REPORTED Normal 9- [facility] Comment on above: Performed By: #### C BC, BMPX ####[facility] [address] [place] [address] Lab Director: Bowen Lemon MD Staging: NOT REPORTED Normal [facility] Comment on above: Performed By: #### C BC, BMPX ####[facility] [address] [place] [address] Lab Director: Bowen Lemon MD Basic Metabolic Panel w/ Ref darlene to MGOrdered By: Jarek Osborn on 04-29-2021 Anion gap [Moles/Vol] 10 mmol/L 9 - 17 mmol/L [facility] Phone: Calcium [Mass/Vol] 8.9 mg/dL 8.6 - 10. 4 mg/dL [facility] Phone: Chloride [Moles/Vol] 106 mmol/L 98 - 10 7 mmol/L [facility] Phone: CO2 [Moles/Vol] 22 mmol/L 20 - 31 mmol/L [facility] Phone: Creatinine [Mass/Vol] 0.72 mg/dL 0.70 - 1.20 mg/dL [facility] Phone: GFR >60 >60 mL/min [facility] Phone: GFR Non- >60 >60 mL/min [facility] Phone: GFR/1.73 sq M.predicted MDRD (S/P/Bld) [Vol rate/Area] [facility] Phone: Comment on above: Average GFR for 60-6 9 years old: 85 mL/min/1.73sq m Chronic Kidney Disease: <60 mL/min/1.73sq m Kidney failure: <15 mL/min/1.73sq m eGFR calculated using average adult body mass. Additional eGFR calculator available at: http://www.[employer]/multiple_crcl_2012.htm GFR/1.73 sq M.predicted MDRD (S/P/Bld) [Vol rate/Area] NOT REPORTED [facility] Phone: Glucose [Mass/Vol] 172 mg/dL High 70 - 99 mg/dL [facility] Phone: Interpretation and review of laboratory results Abnormal [facility] Phone: Potassium [Moles/Vol] 3.9 mmol/L 3.7 - 5.3 mmol/L [facility] Phone: Sodium [Moles/Vol] 138 mmol/L 135 - 144 mmol/L [facility] Phone: Urea nitrogen (BldV) [Mass/Vol] 11 mg/dL 8 - 23 mg/dL [facility] Phone: Urea nitrogen/Creatinine (Bld) [Mass ratio] NOT REPORTED [facility] Phone: [facility] Phone: CBCon 04-29-2021 Erythrocyte distribution width (RBC) [Ratio] 14.1 % Normal 11.8-14.4 [facility] Comment on above: Performed By: #### C BC, BMPX ####[facility] [address] [place] [address] Lab Director: Bowen Lemon MD Hematocrit (Bld) [Volume fraction] 37.7 % Low 40.7-50.3 [facility] Comment on above: Performed By: #### C BC, BMPX ####[facility] [address] [place] [address] Lab Director: Bowen Lemon MD Hemoglobin (Bld) [Mass/Vol] 12.4 g/dL Low 13.0-17.0 [facility] Comment on above: Performed By: #### C BC, BMPX ####[facility] [address] [place] [address] [phone] Director: Bowen Lemon MD MCH (RBC) [Entitic mass] 30.2 pg Normal 25.2-33.5 [facility] Comment on above: Performed By: #### C BC, BMPX ####[facility] [address] [place] [address] Lab Director: Bowen Lemon MD MCHC (RBC) [Mass/Vol] 32.9 g/dL Normal 28.4-34.8 [facility] Comment on above: Performed By: #### C BC, BMPX ####[facility] [address] [place] [address] Lab Director: Bowen Lemon MD MCV (RBC) [Entitic vol] 92.0 fL Normal 82.6-102.9 [facility] Comment on above: Performed By: #### C BC, BMPX ####[facility] [address] [place] [address] Lab Director: Bowen Lemon MD NRBC Automated 0.0 per 100 WBC Normal 0.0 [facility] Comment on above: Performed By: #### C BC, BMPX ####[facility] [address] [place] [address], [place] [phone] Director: Bowen Lemon MD Platelet mean volume (Bld) [Entitic vol] 10.8 fL Normal 8.1-13.5 [facility] Comment on above: Performed By: #### C BC, BMPX ####[facility] [address] [place], [place] [phone] Director: Bowen Lemon MD Platelets (Bld) [#/Vol] 202 10*3/uL Normal 138-453 [facility] Comment on above: Performed By: #### C BC, BMPX ####[facility] [address] [place], [place] [phone] Director: Bowen Lemon MD RBC (Bld) [#/Vol] 4.10 10*6/uL Low 4.21-5.77 [facility] Comment on above: Performed By: #### C BC, BMPX ####[facility] [address] [place] [address] [phone] Director: Bowen Lemon MD WBC (Bld) [#/Vol] 7.5 10*3/uL Normal 3.5-11.3 [facility] Comment on above: Performed By: #### C BC, BMPX ####[address] [phone] Director: Bowen Lemon MD CBCOrdered By: Gee benoit on 04-29-2021 Hematocrit (Bld) [Volume fraction] 37.7 % Low 40.7 - 50.3 % [facility] Phone: Hemoglobin.gastrointest inal spec 1 Ql (Stl) 12.4 g/dL Low 13.0 - 17.0 g/dL [facility] Phone: Interpretation and review of laboratory results Abnormal [facility] Phone: MCH (RBC) [Entitic mass] 30.2 pg 25.2 - 33.5 pg [facility] Phone: MCHC (RBC) [Mass/Vol] 32.9 g/dL 28.4 - 34.8 g/dL [facility] Phone: MCV (RBC) [Entitic vol] 92.0 fL 82.6 - 102.9 fL [facility] Phone: NRBC Automated 0.0 0.0 per 100 WBC [facility] Phone: Platelet distribution width (Bld) [Ratio] 14.1 % 11.8 - 14.4 % [facility] Phone: Platelet mean volume (Bld) [Entitic vol] 10.8 fL 8.1 - 13.5 fL [facility] Phone: Platelets (Bld) [#/Vol] 202 10*3/uL [facility] Phone: RBC (Bld) [#/Vol] 4.10 10*6/uL Low 4.21 - 5.77 m/uL [facility] Phone: WBC (Bld) [#/Vol] 7.5 10*3/uL [facility] Phone: [facility] Phone: POC Glucose FingerstickOrder ed By: Ning Wallace on 04-29-2021 Glucose [Mass/Vol] 232 mg/dL High 75 - 110 mg/dL [facility] Phone: Interpretation and review of laboratory results Abnormal [facility] Phone: [facility] Phone: Glucose [Mass/Vol] 200 mg/dL High 75 - 110 mg/dL [facility] Phone: Interpretation and review of laboratory results Abnormal [facility] Phone: [facility] Phone: Glucose [Mass/Vol] 186 mg/dL High 75 - 110 mg/dL [facility] Phone: Interpretation and review of laboratory results Abnormal [facility] Phone: [facility] Phone: Glucose [Mass/Vol] 163 mg/dL High 75 - 110 mg/dL [facility] Phone: Interpretation and review of laboratory results Abnormal [facility] Phone: [facility] Phone: APTTOrdered By: Ning martines on 04-28-2021 aPTT Coag (Bld) [Time] 49.2 s High [employer] Work Phone: Comment on above: IV Heparin Therapy Range: 48.6-77.8 Interpretation and review of laboratory results Abnormal [facility] Phone: [facility] Phone: aPTT Coag (Bld) [Time] 71.6 s High Me [facility] Work Phone: Comment on above: IV Heparin Therapy Range: 48.6-77.8 Interpretation and review of laboratory results Abnormal [facility] Phone: [facility] Phone: aPTT Coag (Bld) [Time] 37.7 s High Me [facility] Work Phone: Comment on above: IV Heparin Therapy Range: 48.6-77.8 Interpretation and review of laboratory results Abnormal [facility] Phone: [facility] Phone: aPTT Coag (Bld) [Time] 42.9 s High Me [facility] Work Phone: Comment on above: IV Heparin Therapy Range: 48.6-77.8 Interpretation and review of laboratory results Abnormal [facility] Phone: [facility] Phone: APTTon 04-28-2021 aPTT Coag (Bld) [Time] 71.6 s High 20.5-30.5 [facility] Comment on above: Result Comment: IV Heparin Therapy Range: 48.6-77.8 Performed By: #### P TT ####[facility] [address] [place] [address] lab Director: Bowen Lemon MD aPTT Coag (Bld) [Time] 37.7 s High 20.5-30.5 [facility] Comment on above: Result Comment: IV Heparin Therapy Range: 48.6-77.8 Performed By: #### P TT ####[address] [address] lab Director: Bowen Lemon MD aPTT Coag (Bld) [Time] 42.9 s High 20.5-30.5 [facility] Comment on above: Result Comment: IV Heparin Therapy Range: 48.6-77.8 Performed By: #### P TT ####[address] [address] lab Director: Bowen Lemon MD Basic Metab w/rfx MGon 04-28 (cont.) Normal [facility] Comment on above: Result Comment: Aver age GFR for 60-69 years old: 85 mL/min/1.73sq m Chronic Kidney Disease: <60 mL/min/1.73sq m Kidney failure: <15 mL/min/1.73sq m eGFR calculated using average adult body mass. Additional eGFR calculator available at: http://www.[employer]/multiple_crcl_2012.htm Performed By: #### B MPX, MG ####[address] [address] lab Director: Bowen Lemon MD Anion gap [Moles/Vol] 11 mmol/L Normal 9-17 [facility] Comment on above: Performed By: #### B MPX, MG ####[facility] [address] [place] [address] lab Director: Bowen Lemon MD Calcium [Mass/Vol] 9.0 mg/dL Normal 8.6-10.4 [facility] Comment on above: Performed By: #### B MPX, MG ####[facility] [address]jj[address] [place] [address] lab Director: Bowen Lemon MD Chloride [Moles/Vol] 104 mmol/L Normal 98-107 [facility] Comment on above: Performed By: #### B MPX, MG ####[facility] [address] [place] [address] Lab Director: Bowen Lemon MD CO2 [Moles/Vol] 21 mmol/L Normal 20-31 [facility] Comment on above: Performed By: #### B MPX, MG ####[facility] [address] [place] [address] Lab Director: Bowen Lemon MD Creatinine [Mass/Vol] 0.77 mg/dL Normal 0.70-1.20 [facility] Comment on above: Performed By: #### B MPX, MG ####[facility] [address]22[address] [place] [address] Lab Director: Bowen Lemon MD GFR, Amer >60 Normal >60 [facility] Comment on above: Performed By: #### B MPX, MG ####[facility] [address]fs[address] [place] [address] Lab Director: Bowen Lemon MD GFR,non Amer >60 Normal >60 [facility] Comment on above: Performed By: #### B MPX, MG ####[facility] [address]75[address] [place], [place] [phone] Director: Bowen Lemon MD Glucose [Mass/Vol] 250 mg/dL High 70-99 [facility] Comment on above: Performed By: #### B MPX, MG ####[facility] [address]x14[address] [place], [place] [phone] Director: Bowen Lemon MD Potassium [Moles/Vol] 3.7 mmol/L Normal 3.7-5.3 [facility] Comment on above: Performed By: #### B MPX, MG ####[facility] [address] [place], [place] [phone] Director: Bowen Lemon MD Sodium [Moles/Vol] 136 mmol/L Normal 135-144 [facility] Comment on above: Performed By: #### B MPX, MG ####[facility] [address] [place], [place] [phone] Director: Bowen Lemon MD Urea nitrogen [Mass/Vol] 10 mg/dL Normal 8-23 [facility] Comment on above: Performed By: #### B MPX, MG ####[facility] [address]bz78[address] [place], [place] [phone] Director: Bowen Lemon MD BUN/CRE Ratio NOT REPORTED Normal 9-20 [facility] Comment on above: Performed By: #### B MPX, MG ####[facility] [address]06[address] [place], [place] [phone] Director: Bowen Lemon MD Staging: NOT REPORTED Normal [facility] Comment on above: Performed By: #### B MPX, MG ####[facility] [address] [place], [place] [phone] Director: Bowen Lemon MD Basic Metabolic Panel w/ Ref darlene to MGOrdered By: Jarek Osborn on 04-28-2021 Anion gap [Moles/Vol] 11 mmol/L 9 - 17 mmol/L [facility] Phone: Calcium [Mass/Vol] 9.0 mg/dL 8.6 - 10. 4 mg/dL [facility] Phone: Chloride [Moles/Vol] 104 mmol/L 98 - 10 7 mmol/L [facility] Phone: CO2 [Moles/Vol] 21 mmol/L 20 - 31 mmol/L [facility] Phone: Creatinine [Mass/Vol] 0.77 mg/dL 0.70 - 1.20 mg/dL [facility] Phone: GFR >60 >60 mL/min [facility] Phone: GFR Non- >60 >60 mL/min [facility] Phone: GFR/1.73 sq M.predicted MDRD (S/P/Bld) [Vol rate/Area] [facility] Phone: Comment on above: Average GFR for 60-6 9 years old: 85 mL/min/1.73sq m Chronic Kidney Disease: <60 mL/min/1.73sq m Kidney failure: <15 mL/min/1.73sq m eGFR calculated using average adult body mass. Additional eGFR calculator available at: http://www.[employer]/multiple_crcl_2012.htm GFR/1.73 sq M.predicted MDRD (S/P/Bld) [Vol rate/Area] NOT REPORTED [facility] Phone: Glucose [Mass/Vol] 250 mg/dL High 70 - 99 mg/dL [facility] Phone: Interpretation and review of laboratory results Abnormal [facility] Phone: Potassium [Moles/Vol] 3.7 mmol/L 3.7 - 5.3 mmol/L [facility] Phone: Sodium [Moles/Vol] 136 mmol/L 135 - 144 mmol/L [facility] Phone: Urea nitrogen (BldV) [Mass/Vol] 10 mg/dL 8 - 23 mg/dL [facility] Phone: Urea nitrogen/Creatinine (Bld) [Mass ratio] NOT REPORTED [facility] Phone: [facility] Phone: Catheterization and angiogra phy procedure details panelOrdered By: Andreas Shepherd on 04-28-2021 Cardiac Diagnostic R eport Demographics Patient REHAN Bryant Date of Study 04/28/2021 Name Date of 1955 Gender Male Age 65 year(s) Race Room [id number]^DANIELLE^ANDREAS Height: 72 inch, 182.88 cm Number Corporate [id number] Weight: 223 pounds, 101.2 ID # kg Patient [id number] BSA: 2.23 m^2 BMI: 30.24 Acct # kg/m^2 MR # [id number] Performing Vimal Geronimo Physician Referring # Physician Assisting Physician Additional Comments H&P reviewed and patient examined by performing physician prior to the procedure on 04/28/21 at No changes noted. If changes, see note below. ASA Classification / Mallampati : per Physician. ASA & Mallampati documented in [facility] by Physician. Patient medications reviewed by Physician prior to procedure. Procedure Procedure Type: Diagnostic procedure: Lt Heart, Coronary Angio, LVgram Complications: - No complication Indications: - Unstable angina - Coronary risk factors - Previous stent placement Conclusions Procedure Summary Multivessel CAD Preserved LV function Recommendations CV surgery consult for CABG Signature Angiographic Findings Cardiac Arteries and Lesion Findings LMCA: 20% ostial stenosis LAD: Mid area 75%stenosis Distal 80% stenosis D1: proximal 80-90% stenosis LCx: Proximal 90% stenosis RCA: Patent mid stent area with 25% stenosis PDA: proximal 75% stenosis Coronary Tree Dominance: Right LV Analysis LV function assessed as:Normal. Procedure Data Procedure Start Time: 04/28/2021 10:00. Procedure End Time: 04/28/2021 10:17. The procedure was explained in detail to the patient. Risks, complications and alternative treatments were reviewed. Written consent was obtained. Diagnostic Cath Status: Urgent Entry Locations - Retrograde Percutaneous access was performed through the Right Radial artery. A 6 Fr sheath was inserted. Hemostasis was successfully obtained using Vasc Band. Procedure Medications: - Versed I.V. 2 mg. - Fentanyl I.V. 50 mcg. - Lidocaine HCl 1% 10mg/ml S.Q. 5 ml. - Heparin I.A. 2000 units. - Verapamil I.A. 2.5 mg. - Nitroglycerin I.A. 400 mcg. Catheters and Wires: - 6F Catheter JR 4 was used for Left ventriculography. - 6F Catheter JR 4 was used for Right coronary angiography. - 6F Catheter JL 3.5 was used for Left coronary angiography.Unable to cannulate the vessel. - 6F Catheter JL 4 was used for Left coronary angiography. Contrast Material: - Isovue 43512 ml Fluoroscopy Time: Diagnostic: 7:54 minutes. Total: 7:54 minutes. Medical History Allergies - *No Known Allergies. Risk Factors The patient risk factors include:obesity, physical activity, treated hypercholesterolemia, treated hypertension, family history of premature CAD, orally-treated diabetes mellitus, chronic lung disease, last creatinine: 0.7 mg/dl, creatinine clearance: 154.54 ml/min, dyslipidemia and former tobacco use. Admission Data Admission Date: 04/24/2021 Admission Status: Inpatient. 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 Hemodynamics Condition: Baseline Room Air Estimated: 265.46Heart Rate: 76 bpm Pressure +-----+ + !Site !Pressure ! +-----+ + !AO !124/74 (94) ! +-----+ + !AO !122/69 (91) ! +-----+ + !LV !104/2 ,7 ! +-----+ + !LV !138/0 ,8 ! +-----+ + Valve Gradients and Areas + +---------+--- -- (more content not included)... [employer] Work Phone: Adam, Mhpn Incoming C ardio Results From Cp[facility]/Ge - 04/28/2021 10:30 AM EDT Cardiac Diagnostic Report Demographics Patient REHAN Bryant Date of Study 04/28/2021 Name Date of 1955 Gender Male Age 65 year(s) Race Room [id number]^DANIELLE^ANDREAS Height: 72 inch, 182.88 cm Number Corporate [id number] Weight: 223 pounds, 101.2 ID # kg Patient [id number] BSA: 2.23 m^2 BMI: 30.24 Acct # kg/m^2 MR # [id number] Performing Vimal Geronimo Physician Referring # Physician Assisting Physician Additional Comments H&P reviewed and patient examined by performing physician prior to the procedure on 04/28/21 at No changes noted. If changes, see note below. ASA Classification / Mallampati : per Physician. ASA & Mallampati documented in Epic by Physician. Patient medications reviewed by Physician prior to procedure. Procedure Procedure Type: Diagnostic procedure: Lt Heart, Coronary Angio, LVgram Complications: - No complication Indications: - Unstable angina - Coronary risk factors - Previous stent placement Conclusions Procedure Summary Multivessel CAD Preserved LV function Recommendations CV surgery consult for CABG Signature Angiographic Findings Cardiac Arteries and Lesion Findings LMCA: 20% ostial stenosis LAD: Mid area 75%stenosis Distal 80% stenosis D1: proximal 80-90% stenosis LCx: Proximal 90% stenosis RCA: Patent mid stent area with 25% stenosis PDA: proximal 75% stenosis Coronary Tree Dominance: Right LV Analysis LV function assessed as:Normal. Procedure Data Procedure Start Time: 04/28/2021 10:00. Procedure End Time: 04/28/2021 10:17. The procedure was explained in detail to the patient. Risks, complications and alternative treatments were reviewed. Written consent was obtained. Diagnostic Cath Status: Urgent Entry Locations - Retrograde Percutaneous access was performed through the Right Radial artery. A 6 Fr sheath was inserted. Hemostasis was successfully obtained using Vasc Band. Procedure Medications: - Versed I.V. 2 mg. - Fentanyl I.V. 50 mcg. - Lidocaine HCl 1% 10mg/ml S.Q. 5 ml. - Heparin I.A. 2000 units. - Verapamil I.A. 2.5 mg. - Nitroglycerin I.A. 400 mcg. Catheters and Wires: - 6F Catheter JR 4 was used for Left ventriculography. - 6F Catheter JR 4 was used for Right coronary angiography. - 6F Catheter JL 3.5 was used for Left coronary angiography.Unable to cannulate the vessel. - 6F Catheter JL 4 was used for Left coronary angiography. Contrast Material: - Isovue 35402 ml Fluoroscopy Time: Diagnostic: 7:54 minutes. Total: 7:54 minutes. Medical History Allergies - *No Known Allergies. Risk Factors The patient risk factors include:obesity, physical activity, treated hypercholesterolemia, treated hypertension, family history of premature CAD, orally-treated diabetes mellitus, chronic lung disease, last creatinine: 0.7 mg/dl, creatinine clearance: 154.54 ml/min, dyslipidemia and former tobacco use. Admission Data Admission Date: 04/24/2021 Admission Status: Inpatient. 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 Hemodynamics Condition: Baseline Room Air Estimated: 265.46Heart Rate: 76 bpm Pressure +-----+ + !Site !Pressure ! +-----+ + !AO !124/74 (94) ! +-----+ + !AO !122/69 (91) ! +-----+ + !LV !104/2 ,7 ! +-----+ + !LV !138/0 ,8 ! +-----+ + Valve Gradients and Areas + +---------+--- ------+---------+--------- -+---------+ + !Valve !Peak !Mean !Area !Index !Flow !Source ! + +---------+--- ------+---------+--------- -+---------+ + !Aortic !13 !12 ! ! ! ! ! + +---------+--- ------+---------+--------- -+---------+ + !Aortic !13 !12 ! ! ! ! ! + +---------+--- ------+---------+--------- -+---------+ + Shunts Oxygen Values O2 Kmohcnfd702.44O2 Qldcjefwiwe063.46 [facility] Phone: [facility] Phone: Catheterization and angiogra phy procedure details panelOrdered By: Unknown Result on 04-28-2021 [facility] Phone: ECHO Complete 2D W Doppler W ColorOrdered By: Babak Mancuso on 04-28-2021 Transthoracic Echocardiography Report (TTE) Patient Name REHAN Date of Study 04/28/2021 YOEL Bryant Date of 1955 Gender Male Age 65 year(s) Race Room Number 1015 Height: 72 inch, 182.88 cm Corporate ID [id number] Weight: 223 pounds, 101.2 kg # Patient Acct [id number] BSA: 2.23 m^2 BMI: 30.24 # kg/m^2 MR # [id number] Integrated Pest Management Technician TreBrittaneySmitha Interpreting Physician Marcello Cole Fellow Referring Nurse Practitioner Interpreting Referring Physician Babak Mancuso Fellow Type of Study TTE procedure:2D Echocardiogram, M-Mode, Doppler, Color Doppler, Bubble Study. Procedure Date Date: 04/28/2021 Start: 09:19 AM Study Location: [facility] Technical Quality: Fair visualization Indications:Stroke, Non-STEMI and Altered mental status. History / Tech. Comments: Procedure explained to patient. Patient Status: Inpatient Height: 72 inches Weight: 223 pounds BSA: 2.23 m^2 BMI: 30.24 kg/m^2 Allergies - *No Known Allergies. CONCLUSIONS Summary Left ventricle is normal in size. Global left ventricular systolic function is mildly reduced. Estimated ejection fraction is 45-50 % . Calculated EF via Bird's method is 46 %. Grade I (mild) left ventricular diastolic dysfunction. Left atrium is mildly dilated. Right atrium is mildly dilated . Negative bubble study, no shunt noted via injection of agitated saline. Aortic valve is sclerotic but opens well.. Trivial to mild mitral regurgitation. Trivial tricuspid regurgitation. Estimated right ventricular systolic pressure is 29 mmHg. Normal aortic root dimension. The ascending aorta is mildly dilated. Signature FINDINGS Left Atrium Left atrium is mildly dilated. Inter-atrial septum appears so be intact. No shunt seen by color Doppler. Negative bubble study, no shunt noted via injection of agitated saline. Left Ventricle Left ventricle is normal in size. Global left ventricular systolic function is mildly reduced. Estimated ejection fraction is 45-50 % . Calculated EF via Bird's method is 46 %. Normal left ventricular wall thickness. Grade I (mild) left ventricular diastolic dysfunction. Right Atrium Right atrium is mildly dilated . Right Ventricle Normal right ventricular size and function. Mitral Valve Normal mitral valve structure. Trivial to mild mitral regurgitation. No mitral stenosis. Aortic Valve Aortic valve is sclerotic but opens well. Aortic valve is trileaflet. No aortic stenosis. No aortic insufficiency. Tricuspid Valve Normal tricuspid valve leaflets. Trivial tricuspid regurgitation. No tricuspid stenosis. Estimated right ventricular systolic pressure is 29 mmHg. Pulmonic Valve Pulmonic valve is normal in structure and function. No pulmonic insufficiency. No evidence of pulmonic stenosis. Pericardial Effusion No pericardial effusion. Miscellaneous Normal aortic root dimension. The ascending aorta is mildly dilated. E/E' average = 11.5. IVC not visualized. M-mode / 2D Measurements & Calculations: LVIDd:4.6 cm(3.7 - 5.6 cm) Diastolic Volume:90.2 ml LVIDs:3.4 cm(2.2 - 4.0 cm) Systolic Volume:46.47 ml IVSd:1.1 cm(0.6 - 1.1 cm) Aortic Root:3.9 cm(2.0 - 3.7 cm) LVPWd:1 cm(0.6 - 1.1 cm) LA Dimension: 3.9 cm(1.9 - 4.0 cm) Fractional Shortenin.09 % LA volume/Index: 83.07 ml /37m^2 Calculated LVEF (%): 48.48 % LVOT:2.5 cm RVDd:3.2 cm Mitral: Aortic Valve Area (P1/2-Time): 2.53 cm^2 Peak Velocity: 1.18 m/s Peak E-Wave: 0.80 m/s Mean Velocity: 0.87 m/s Peak A-Wave: 0.58 m/s Peak Gradient: 5.57 mmHg E/A Ratio: 1.37 Mean Gradient: 4 mmHg Peak Gradient: 2.54 mmHg Mean Gradient: 1 mmHg Deceleration Time: 211 msec Area (continuity): 3.99 cm^2 P1/2t: 87 msec AV VTI: 32.7 cm Area (continuity): 3.44 cm^2 Mean Velocity: 0.53 m/s Tricuspid: Pulmonic: (more content not included)... [employer] Work Phone: Adam, pn Incoming C ardio Results From [facility]/Ge - 04/28/2021 2:48 PM EDT Transthoracic Echocardiography Report (TTE) Patient Name ICKES Date of Study 04/28/2021 YOEL Bryant Date of 1955 Gender Male Age 65 year(s) Race Room Number 1015 Height: 72 inch, 182.88 cm Corporate ID [id number] Weight: 223 pounds, 101.2 kg # Patient Acct [id number] BSA: 2.23 m^2 BMI: 30.24 # kg/m^2 MR # [id number] Integrated Pest Management Technician Smitha [place] Interpreting Physician Marcello Cole Fellow Referring Nurse Practitioner Interpreting Referring Physician Babak Mancuso Fellow Type of Study TTE procedure:2D Echocardiogram, M-Mode, Doppler, Color Doppler, Bubble Study. Procedure Date Date: 04/28/2021 Start: 09:19 AM Study Location: [facility] Technical Quality: Fair visualization Indications:Stroke, Non-STEMI and Altered mental status. History / Tech. Comments: Procedure explained to patient. Patient Status: Inpatient Height: 72 inches Weight: 223 pounds BSA: 2.23 m^2 BMI: 30.24 kg/m^2 Allergies - *No Known Allergies. CONCLUSIONS Summary Left ventricle is normal in size. Global left ventricular systolic function is mildly reduced. Estimated ejection fraction is 45-50 % . Calculated EF via Bird's method is 46 %. Grade I (mild) left ventricular diastolic dysfunction. Left atrium is mildly dilated. Right atrium is mildly dilated . Negative bubble study, no shunt noted via injection of agitated saline. Aortic valve is sclerotic but opens well.. Trivial to mild mitral regurgitation. Trivial tricuspid regurgitation. Estimated right ventricular systolic pressure is 29 mmHg. Normal aortic root dimension. The ascending aorta is mildly dilated. Signature - - - - FINDINGS Left Atrium Left atrium is mildly dilated. Inter-atrial septum appears so be intact. No shunt seen by color Doppler. Negative bubble study, no shunt noted via injection of agitated saline. Left Ventricle Left ventricle is normal in size. Global left ventricular systolic function is mildly reduced. Estimated ejection fraction is 45-50 % . Calculated EF via Bird's method is 46 %. Normal left ventricular wall thickness. Grade I (mild) left ventricular diastolic dysfunction. Right Atrium Right atrium is mildly dilated . Right Ventricle Normal right ventricular size and function. Mitral Valve Normal mitral valve structure. Trivial to mild mitral regurgitation. No mitral stenosis. Aortic Valve Aortic valve is sclerotic but opens well. Aortic valve is trileaflet. No aortic stenosis. No aortic insufficiency. Tricuspid Valve Normal tricuspid valve leaflets. Trivial tricuspid regurgitation. No tricuspid stenosis. Estimated right ventricular systolic pressure is 29 mmHg. Pulmonic Valve Pulmonic valve is normal in structure and function. No pulmonic insufficiency. No evidence of pulmonic stenosis. Pericardial Effusion No pericardial effusion. Miscellaneous Normal aortic root dimension. The ascending aorta is mildly dilated. E/E' average = 11.5. IVC not visualized. M-mode / 2D Measurements & Calculations: LVIDd:4.6 cm(3.7 - 5.6 cm) Diastolic Volume:90.2 ml LVIDs:3.4 cm(2.2 - 4.0 cm) Systolic Volume:46.47 ml IVSd:1.1 cm(0.6 - 1.1 cm) Aortic Root:3.9 cm(2.0 - 3.7 cm) LVPWd:1 cm(0.6 - 1.1 cm) LA Dimension: 3.9 cm(1.9 - 4.0 cm) Fractional Shortenin.09 % LA volume/Index: 83.07 ml /37m^2 Calculated LVEF (%): 48.48 % LVOT:2.5 cm RVDd:3.2 cm Mitral: Aortic Valve Area (P1/2-Time): 2.53 cm^2 Peak Velocity: 1.18 m/s Peak E-Wave: 0.80 m/s Mean Velocity: 0.87 m/s Peak A-Wave: 0.58 m/s Peak Gradient: 5.57 mmHg E/A Ratio: 1.37 Mean Gradient: 4 mmHg Peak Gradient: 2.54 mmHg Mean Gradient: 1 mmHg Deceleration Time: 211 msec Area (continuity): 3.99 cm^2 P1/2t: 87 msec AV VTI: 32.7 cm Area (continuity): 3.44 cm^2 Mean Velocity: 0.53 m/s Tricuspid: Pulmonic: Estimated RVSP: 29 mmHg Peak Velocity: 1.02 m/s Peak TR Velocity: 2.46 m/s Peak Gradient: 4.16 mmHg Peak TR Gradient: 24.2064 mmHg Estimated RA Pressure: 5 mmHg Estimated PASP: 29.21 mmHg Diastology / Tissue Doppler Septal Wall E' velocity:0.07 m/s Septal Wall E/E':12.2 Lateral Wall E' velocity:0.07 m/s Lateral Wall E/E':10.8 [facility] Phone: [facility] Phone: Magnesiumon 04-28-2021 Magnesium [Mass/Vol] 1.5 mg/dL Low 1.6-2.6 [facility] Comment on above: Performed By: #### B MPX, MG ####[employer] [address] [place] [address] lab Director: Bowen Lemon MD MagnesiumOrdered By: Jarek Osborn on 04-28-2021 Interpretation and review of laboratory results Abnormal [facility] Phone: Magnesium [Mass/Vol] 1.5 mg/dL Low 1.6 - 2 .6 mg/dL [facility] Phone: [facility] Phone: POC Glucose FingerstickOrder ed By: Ning Wallace on 04-28-2021 Glucose [Mass/Vol] 182 mg/dL High 75 - 110 mg/dL [facility] Phone: Interpretation and review of laboratory results Abnormal [facility] Phone: [facility] Phone: Glucose [Mass/Vol] 202 mg/dL High 75 - 110 mg/dL [facility] Phone: Interpretation and review of laboratory results Abnormal [facility] Phone: [facility] Phone: Glucose [Mass/Vol] 190 mg/dL High 75 - 110 mg/dL [facility] Phone: Interpretation and review of laboratory results Abnormal [facility] Phone: [facility] Phone: Glucose [Mass/Vol] 198 mg/dL High 75 - 110 mg/dL [facility] Phone: Interpretation and review of laboratory results Abnormal [facility] Phone: [facility] Phone: APTTon 04-27-2021 aPTT Coag (Bld) [Time] 55.7 s High 20.5-30.5 [facility] Comment on above: Result Comment: IV Heparin Therapy Range: 48.6-77.8 Performed By: #### P TT ####[place] [address] Lab Director: Bowen Lemon MD aPTT Coag (Bld) [Time] 71.0 s High 20.5-30.5 [facility] Comment on above: Result Comment: IV Heparin Therapy Range: 48.6-77.8 Performed By: #### P TT ####[facility] [address] [place] [address] Lab Director: Bowen Lemon MD aPTT Coag (Bld) [Time] 68.8 s High 20.5-30.5 [facility] Comment on above: Result Comment: IV Heparin Therapy Range: 48.6-77.8 Performed By: #### P TT ####[address] [id number] Lab Director: Bowen Lemon MD aPTT Coag (Bld) [Time] 73.8 s High 20.5-30.5 [facility] Comment on above: Result Comment: IV Heparin Therapy Range: 48.6-77.8 Performed By: #### P TT ####[facility] [address] [place] [address] lab Director: Bowen Lemon MD aPTT Coag (Bld) [Time] 64.8 s High 20.5-30.5 [facility] Comment on above: Result Comment: IV Heparin Therapy Range: 48.6-77.8 Performed By: #### P TT ####[facility] [address] [place] [address] lab Director: Bowen Lemon MD APTTOrdered By: Ning martines on 04-27-2021 aPTT Coag (Bld) [Time] 55.7 s High [facility] Phone: Comment on above: IV Heparin Therapy Range: 48.6-77.8 Interpretation and review of laboratory results Abnormal [facility] Phone: [facility] Phone: aPTT Coag (Bld) [Time] 71.0 s High [facility] Phone: Comment on above: IV Heparin Therapy Range: 48.6-77.8 Interpretation and review of laboratory results Abnormal [facility] Phone: [facility] Phone: aPTT Coag (Bld) [Time] 68.8 s High [facility] Phone: Comment on above: IV Heparin Therapy Range: 48.6-77.8 Interpretation and review of laboratory results Abnormal [facility] Phone: [facility] Phone: aPTT Coag (Bld) [Time] 73.8 s High [facility] Work Phone: Comment on above: IV Heparin Therapy Range: 48.6-77.8 Interpretation and review of laboratory results Abnormal [facility] Phone: [facility] Phone: APTTOrdered By: Gee kim on 04-27-2021 aPTT Coag (Bld) [Time] 64.8 s High [facility] [employer] Work Phone: Comment on above: IV Heparin Therapy Range: 48.6-77.8 Interpretation and review of laboratory results Abnormal [facility] Phone: [facility] Phone: Basic Metab w/rfx MGon 04-27 (cont.) Normal [facility] Comment on above: Result Comment: Aver age GFR for 60-69 years old: 85 mL/min/1.73sq m Chronic Kidney Disease: <60 mL/min/1.73sq m Kidney failure: <15 mL/min/1.73sq m eGFR calculated using average adult body mass. Additional eGFR calculator available at: http://www.[employer]/multiple_crcl_2012.htm Performed By: #### C BC, BMPX, MG ####[facility] [address] [place], [place] [id number] Lab Director: Bowen Lemon MD Anion gap [Moles/Vol] 11 mmol/L Normal 9-17 [facility] Comment on above: Performed By: #### C BC, BMPX, MG ####[facility] [address] [place], [place] [id number] Lab Director: Bowen Lemon MD Calcium [Mass/Vol] 8.9 mg/dL Normal 8.6-10.4 [facility] Comment on above: Performed By: #### C BC, BMPX, MG ####[facility] [address] [place], [place] [id number] Lab Director: Bowen Lemon MD Chloride [Moles/Vol] 103 mmol/L Normal 98-107 [facility] Comment on above: Performed By: #### C BC, BMPX, MG ####[facility] [address] [place] [address] Lab Director: Bowen Lemon MD CO2 [Moles/Vol] 22 mmol/L Normal 20-31 [facility] Comment on above: Performed By: #### C BC, BMPX, MG ####[facility] [address] [place] [address] Lab Director: Bowen Lemon MD Creatinine [Mass/Vol] 0.80 mg/dL Normal 0.70-1.20 [facility] Comment on above: Performed By: #### C BC, BMPX, MG ####[facility] [address] [place] [address] Lab Director: Bowen Lemon MD GFR, Amer >60 Normal >60 [facility] Comment on above: Performed By: #### C BC, BMPX, MG ####[facility] [address] [place] [address] Lab Director: Bowen Lemon MD GFR,non Amer >60 Normal >60 [facility] Comment on above: Performed By: #### C BC, BMPX, MG ####[facility] [address] [place] [address] Lab Director: Bowen Lemon MD Glucose [Mass/Vol] 189 mg/dL High 70-99 [facility] Comment on above: Performed By: #### C BC, BMPX, MG ####[facility] [address] [place] [address] Lab Director: Bowen Lemon MD Potassium [Moles/Vol] 3.5 mmol/L Low 3.7-5.3 [facility] Comment on above: Performed By: #### C BC, BMPX, MG ####[facility] [address] [place] [address] Lab Director: Bowen Lemon MD Sodium [Moles/Vol] 136 mmol/L Normal 135-144 [facility] Comment on above: Performed By: #### C BC, BMPX, MG ####[facility] [address] [place] [address] Lab Director: Bowen Lemon MD Urea nitrogen [Mass/Vol] 11 mg/dL Normal 8-23 [facility] Comment on above: Performed By: #### C BC, BMPX, MG ####[facility] [address] [place] [address] Lab Director: Bowen Lmeon MD BUN/CRE Ratio NOT REPORTED Normal - [facility] Comment on above: Performed By: #### C BC, BMPX, MG ####[facility] [address] [place] [address] Lab Director: Bowen Lemon MD Staging: NOT REPORTED Normal [facility] Comment on above: Performed By: #### C BC, BMPX, MG ####[facility] [address] [place] [address] Lab Director: Bowen Lemon MD Basic Metabolic PanelOrdered By: Andreas Shepherd on 04-27-2021 Anion gap [Moles/Vol] 13 mmol/L 9 - 17 mmol/L [facility] Phone: Calcium [Mass/Vol] 9.2 mg/dL 8.6 - 10. 4 mg/dL [facility] Phone: Chloride [Moles/Vol] 104 mmol/L 98 - 10 7 mmol/L [facility] Phone: CO2 [Moles/Vol] 20 mmol/L 20 - 31 mmol/L [facility] Phone: Creatinine [Mass/Vol] 0.71 mg/dL 0.70 - 1.20 mg/dL [facility] Phone: GFR >60 >60 mL/min [facility] Phone: GFR Non- >60 >60 mL/min [facility] Phone: GFR/1.73 sq M.predicted MDRD (S/P/Bld) [Vol rate/Area] [facility] Phone: Comment on above: Average GFR for 60-6 9 years old: 85 mL/min/1.73sq m Chronic Kidney Disease: <60 mL/min/1.73sq m Kidney failure: <15 mL/min/1.73sq m eGFR calculated using average adult body mass. Additional eGFR calculator available at: http://www.[employer] [email or web address] GFR/1.73 sq M.predicted MDRD (S/P/Bld) [Vol rate/Area] NOT REPORTED [facility] Phone: Glucose [Mass/Vol] 280 mg/dL High 70 - 99 mg/dL [facility] Phone: Interpretation and review of laboratory results Abnormal [facility] Phone: Potassium [Moles/Vol] 3.9 mmol/L 3.7 - 5.3 mmol/L [facility] Phone: Sodium [Moles/Vol] 137 mmol/L 135 - 144 mmol/L [facility] Phone: Urea nitrogen (BldV) [Mass/Vol] 11 mg/dL 8 - 23 mg/dL [facility] Phone: Urea nitrogen/Creatinine (Bld) [Mass ratio] NOT REPORTED [facility] Phone: Basic Metabolic Panel w/ Ref darlene to MGOrdered By: Jaerk Osborn on 04-27-2021 Anion gap [Moles/Vol] 11 mmol/L 9 - 17 mmol/L [facility] Phone: Calcium [Mass/Vol] 8.9 mg/dL 8.6 - 10. 4 mg/dL [facility] Phone: Chloride [Moles/Vol] 103 mmol/L 98 - 10 7 mmol/L [facility] Phone: CO2 [Moles/Vol] 22 mmol/L 20 - 31 mmol/L [facility] Phone: Creatinine [Mass/Vol] 0.8 mg/dL 0.70 - 1.20 mg/dL [facility] Phone: GFR >60 >60 mL/min [facility] Phone: GFR Non- >60 >60 mL/min [facility] Phone: GFR/1.73 sq M.predicted MDRD (S/P/Bld) [Vol rate/Area] [facility] Phone: Comment on above: Average GFR for 60-6 9 years old: 85 mL/min/1.73sq m Chronic Kidney Disease: <60 mL/min/1.73sq m Kidney failure: <15 mL/min/1.73sq m eGFR calculated using average adult body mass. Additional eGFR calculator available at: http://www.[employer]/multiple_crcl_2012.htm GFR/1.73 sq M.predicted MDRD (S/P/Bld) [Vol rate/Area] NOT REPORTED [facility] Phone: Glucose [Mass/Vol] 189 mg/dL High 70 - 99 mg/dL [facility] Phone: Interpretation and review of laboratory results Abnormal [facility] Phone: Potassium [Moles/Vol] 3.5 mmol/L Low 3.7 - 5.3 mmol/L [facility] Phone: Sodium [Moles/Vol] 136 mmol/L 135 - 144 mmol/L [facility] Phone: Urea nitrogen (BldV) [Mass/Vol] 11 mg/dL 8 - 23 mg/dL [facility] Phone: Urea nitrogen/Creatinine (Bld) [Mass ratio] NOT REPORTED [facility] Phone: [facility] Phone: Basic Metabolic Profon 04-27 (cont.) Normal [facility] Comment on above: Result Comment: Aver age GFR for 60-69 years old: 85 mL/min/1.73sq m Chronic Kidney Disease: <60 mL/min/1.73sq m Kidney failure: <15 mL/min/1.73sq m eGFR calculated using average adult body mass. Additional eGFR calculator available at: http://www.[employer]/multiple_crcl_2012.htm Performed By: #### B ALBINO, MG ####[facility] [address] [place] [address] lab Director: Shreyas Crain DO Anion gap [Moles/Vol] 13 mmol/L Normal 9-17 [facility] Comment on above: Performed By: #### B ALBINO, MG ####[facility] [address] [place] [address] lab Director: Shreyas Crain, DO Calcium [Mass/Vol] 9.2 mg/dL Normal 8.6-10.4 [facility] Comment on above: Performed By: #### B ALBINO, MG ####[facility] [address] [place] [address] lab Director: Shreyas Crain, DO Chloride [Moles/Vol] 104 mmol/L Normal 98-107 [facility] Comment on above: Performed By: #### B MP, MG ####[facility] [address] [place] [address] Lab Director: Shreyas Crain DO CO2 [Moles/Vol] 20 mmol/L Normal 20-31 [facility] Comment on above: Performed By: #### B MP, MG ####[facility] [address] [place] [address] Lab Director: Shreyas Crain DO Creatinine [Mass/Vol] 0.71 mg/dL Normal 0.70-1.20 [facility] Comment on above: Performed By: #### B MP, MG ####[facility] [address] [place] [address] Lab Director: Shreyas Crain DO GFR, Amer >60 Normal >60 [facility] Comment on above: Performed By: #### B MP, MG ####[facility] [address] [facility] [place] [address] Lab Director: Shreyas Crain DO GFR,non Amer >60 Normal >60 [facility] Comment on above: Performed By: #### B MP, MG ####[facility] [address] [facility] [place] [address] Lab Director: Shreyas Crain DO Glucose [Mass/Vol] 280 mg/dL High 70-99 [facility] Comment on above: Performed By: #### B MP, MG ####[facility] [address] [facility] [place] [address] Lab Director: Shreyas Crain DO Potassium [Moles/Vol] 3.9 mmol/L Normal 3.7-5.3 [facility] Comment on above: Performed By: #### B MP, MG ####[facility] [address] [place], [place] [phone] Director: Shreyas Crain DO Sodium [Moles/Vol] 137 mmol/L Normal 135-144 [facility] Comment on above: Performed By: #### B MP, MG ####[facility] [address] [place], [place] [phone] Director: Shreyas Crain DO Urea nitrogen [Mass/Vol] 11 mg/dL Normal 8-23 [facility] Comment on above: Performed By: #### B MP, MG ####[facility] [address] [place], [place] [phone] Director: Shreyas Crain DO BUN/CRE Ratio NOT REPORTED Normal 9-20 [facility] Comment on above: Performed By: #### B ALBINO, MG ####[facility] [address] [place], [place] [phone] Director: Shreyas Crain DO Staging: NOT REPORTED Normal [facility] Comment on above: Performed By: #### B MP, MG ####[facility] [address] [place], [place] [phone] Director: Shreyas Crain DO CBCon 04-27-2021 Erythrocyte distribution width (RBC) [Ratio] 13.9 % Normal 11.8-14.4 [facility] Comment on above: Performed By: #### C BC, BMPX, MG ####[facility] North[facility] [address] [place] [address] Lab Director: Bowen Lemon MD Hematocrit (Bld) [Volume fraction] 38.2 % Low 40.7-50.3 [facility] Comment on above: Performed By: #### C BC, BMPX, MG ####[facility] [address] [place] [address] lab Director: Bowen Lemon MD Hemoglobin (Bld) [Mass/Vol] 12.9 g/dL Low 13.0-17.0 [facility] Comment on above: Performed By: #### C BC, BMPX, MG ####[facility] [address] [place] [address] Lab Director: Bowen Lemon MD MCH (RBC) [Entitic mass] 30.6 pg Normal 25.2-33.5 [facility] Comment on above: Performed By: #### C BC, BMPX, MG ####[facility] [address] [place] [address] lab Director: Bowen Lemon MD MCHC (RBC) [Mass/Vol] 33.8 g/dL Normal 28.4-34.8 [facility] Comment on above: Performed By: #### C BC, BMPX, MG ####[facility] [address] [place] [address] [phone] Director: Bowen Lemon MD MCV (RBC) [Entitic vol] 90.5 fL Normal 82.6-102.9 [facility] Comment on above: Performed By: #### C BC, BMPX, MG ####[facility] [address] [place] [address] lab Director: Bowen Lemon MD NRBC Automated 0.0 per 100 WBC Normal 0.0 [facility] Comment on above: Performed By: #### C BC, BMPX, MG ####[facility] [address] [place] [address] Lab Director: Bowen Lemon MD Platelet mean volume (Bld) [Entitic vol] 10.3 fL Normal 8.1-13.5 [facility] Comment on above: Performed By: #### C BC, BMPX, MG ####[facility] [address] [place] [address] lab Director: Bowen Lemon MD Platelets (Bld) [#/Vol] 223 10*3/uL Normal 138-453 [facility] Comment on above: Performed By: #### C BC, BMPX, MG ####[facility] [address] [place], [place] [phone] lab Director: Bowen Lemon MD RBC (Bld) [#/Vol] 4.22 10*6/uL Normal 4.21-5.77 [facility] Comment on above: Performed By: #### C BC, BMPX, MG ####[facility] [address] [place], [place] [phone] lab Director: Bowen Lemon MD WBC (Bld) [#/Vol] 7.9 10*3/uL Normal 3.5-11.3 [facility] Comment on above: Performed By: #### C BC, BMPX, MG ####[facility] [address] [place], [place] [phone] lab Director: Bowen Lemon MD CBCOrdered By: Gee benoit on 04-27-2021 Hematocrit (Bld) [Volume fraction] 38.2 % Low 40.7 - 50.3 % [facility] Phone: Hemoglobin.gastrointest inal spec 1 Ql (Stl) 12.9 g/dL Low 13.0 - 17.0 g/dL [facility] Phone: Interpretation and review of laboratory results Abnormal [facility] Phone: MCH (RBC) [Entitic mass] 30.6 pg 25.2 - 33.5 pg [facility] Phone: MCHC (RBC) [Mass/Vol] 33.8 g/dL 28.4 - 34.8 g/dL [facility] Phone: MCV (RBC) [Entitic vol] 90.5 fL 82.6 - 102.9 fL [facility] Phone: NRBC Automated 0.0 0.0 per 100 WBC [facility] Phone: Platelet distribution width (Bld) [Ratio] 13.9 % 11.8 - 14.4 % [facility] Phone: Platelet mean volume (Bld) [Entitic vol] 10.3 fL 8.1 - 13.5 fL [facility] Phone: Platelets (Bld) [#/Vol] 223 10*3/uL [facility] Phone: RBC (Bld) [#/Vol] 4.22 10*6/uL 4.21 - 5.77 m/uL [facility] Phone: WBC (Bld) [#/Vol] 7.9 10*3/uL [facility] Phone: [facility] Phone: MAGNESIUMOrdered By: Andreas Shepherd on 04-27-2021 Magnesium [Mass/Vol] 1.8 mg/dL 1.6 - 2 .6 mg/dL [facility] Phone: Magnesiumon 04-27-2021 Magnesium [Mass/Vol] 1.8 mg/dL Normal 1.6-2.6 [facility] Comment on above: Performed By: #### B MP, MG ####[employer] [facility] [address] [place] [address] Lab Director: Shreyas Crain DO Magnesium [Mass/Vol] 1.3 mg/dL Low 1.6-2.6 [facility] Comment on above: Performed By: #### C BC, BMPX, MG ####[employer] [address] [place] [address] lab Director: Bowen Lemon MD MagnesiumOrdered By: Jarek Osborn on 04-27-2021 Interpretation and review of laboratory results Abnormal [facility] Phone: Magnesium [Mass/Vol] 1.3 mg/dL Low 1.6 - 2 .6 mg/dL [facility] Phone: [facility] Phone: No Panel InformationOrdered By: Andreas Shepherd on 04-27-2021 [facility] Phone: POC Glucose FingerstickOrder ed By: Ning Wallace on 04-27-2021 Glucose [Mass/Vol] 284 mg/dL High 75 - 110 mg/dL [facility] Phone: Interpretation and review of laboratory results Abnormal [facility] Phone: [facility] Phone: Glucose [Mass/Vol] 254 mg/dL High 75 - 110 mg/dL [facility] Phone: Interpretation and review of laboratory results Abnormal [facility] Phone: [facility] Phone: Glucose [Mass/Vol] 230 mg/dL High 75 - 110 mg/dL [facility] Phone: Interpretation and review of laboratory results Abnormal [facility] Phone: [facility] Phone: Glucose [Mass/Vol] 237 mg/dL High 75 - 110 mg/dL [facility] Phone: Interpretation and review of laboratory results Abnormal [facility] Phone: [facility] Phone: APTTon 04-26-2021 aPTT Coag (Bld) [Time] 44.1 s High 20.5-30.5 [facility] Comment on above: Result Comment: IV Heparin Therapy Range: 48.6-77.8 Performed By: #### P TT ####[address] [address] [facility] Director: Bowen Lemon MD aPTT Coag (Bld) [Time] 51.9 s High 20.5-30.5 [facility] Comment on above: Result Comment: IV Heparin Therapy Range: 48.6-77.8 Performed By: #### P TT ####[address] [address] lab Director: Bowen Lemon MD aPTT Coag (Bld) [Time] 48.3 s High 20.5-30.5 [facility] Comment on above: Result Comment: IV Heparin Therapy Range: 48.6-77.8 Performed By: #### P TT ####[place], [place] [address])[phone] Director: Bowen Lemon MD aPTT Coag (Bld) [Time] 62.7 s High 20.5-30.5 [facility] Comment on above: Result Comment: IV Heparin Therapy Range: 48.6-77.8 Performed By: #### P TT ####[address] [address] lab Director: Bowen Lemon MD APTTOrdered By: Ning martines on 04-26-2021 aPTT Coag (Bld) [Time] 44.1 s High [facility] Phone: Comment on above: IV Heparin Therapy Range: 48.6-77.8 Interpretation and review of laboratory results Abnormal [facility] Phone: [facility] Phone: APTTOrdered By: Gee kim on 04-26-2021 aPTT Coag (Bld) [Time] 51.9 s High [facility] Phone: Comment on above: IV Heparin Therapy Range: 48.6-77.8 Interpretation and review of laboratory results Abnormal [facility] Phone: [facility] Phone: aPTT Coag (Bld) [Time] 48.3 s High [facility] Phone: Comment on above: IV Heparin Therapy Range: 48.6-77.8 Interpretation and review of laboratory results Abnormal [facility] Phone: [facility] Phone: aPTT Coag (Bld) [Time] 62.7 s High [facility] Phone: Comment on above: IV Heparin Therapy Range: 48.6-77.8 Interpretation and review of laboratory results Abnormal [facility] Phone: [facility] Phone: Basic Metab w/rfx MGon 04-26 Anion gap [Moles/Vol] 12 mmol/L Normal 9-17 [facility] Comment on above: Performed By: #### T ROPI, BMPX, LIPR ####[facility] [address] [place] [address] Lab Director: Bowen Lemon MD Calcium [Mass/Vol] 9.3 mg/dL Normal 8.6-10.4 [facility] Comment on above: Performed By: #### T ROPI, BMPX, LIPR ####[facility] [address] [place] [address] lab Director: Bowen Lemon MD Chloride [Moles/Vol] 102 mmol/L Normal 98-107 [facility] Comment on above: Performed By: #### T ROPI, BMPX, LIPR ####[facility] North[facility] [address] [place], [place] [phone] Lab Director: Bowen Lemon MD CO2 [Moles/Vol] 23 mmol/L Normal 20-31 [facility] Comment on above: Performed By: #### T ROPI, BMPX, LIPR ####[facility] [address] [place] [address] Lab Director: Bowen Lemon MD Creatinine [Mass/Vol] 0.53 mg/dL Low 0.70-1.20 [facility] Comment on above: Performed By: #### T ROPI, BMPX, LIPR ####[facility] [address] [place], [place] [phone] Director: Bowen Lemon MD GFR, Amer >60 Normal >60 [facility] Comment on above: Performed By: #### T ROPI, BMPX, LIPR ####[facility] [address] [place] [address] Lab Director: Bowen Lemon MD GFR,non Amer >60 Normal >60 [facility] Comment on above: Performed By: #### T ROPI, BMPX, LIPR ####[facility] [address] [place], [place] [phone] Director: Bowen Lemon MD Glucose [Mass/Vol] 249 mg/dL High 70-99 [facility] Comment on above: Performed By: #### T ROPI, BMPX, LIPR ####[facility] [address] [place], [place] [phone] Director: Bowen Lemon MD Potassium [Moles/Vol] 3.6 mmol/L Low 3.7-5.3 [facility] Comment on above: Performed By: #### T ROPI, BMPX, LIPR ####[facility] [address] [place], [place] [phone] Director: Bowen Lemon MD Sodium [Moles/Vol] 137 mmol/L Normal 135-144 [facility] Comment on above: Performed By: #### T ROPI, BMPX, LIPR ####[facility] [address] [place] [address] Lab Director: Bowen Lemon MD Urea nitrogen [Mass/Vol] 9 mg/dL Normal - [facility] Comment on above: Performed By: #### T ROPI, BMPX, LIPR ####[facility] [address] [place] [address] Lab Director: Bowen Lemon MD (cont.) Normal [facility] Comment on above: Result Comment: Aver age GFR for 60-69 years old: 85 mL/min/1.73sq m Chronic Kidney Disease: <60 mL/min/1.73sq m Kidney failure: <15 mL/min/1.73sq m eGFR calculated using average adult body mass. Additional eGFR calculator available at: http://www.[employer]/multiple_crcl_2012.htm Performed By: #### T ROPI, BMPX, LIPR ####[facility] [address] [place] [address] Lab Director: Bowen Lemon MD BUN/CRE Ratio NOT REPORTED Normal 07-07 [facility] Comment on above: Performed By: #### T ROPI, BMPX, LIPR ####[facility] [address] [place] [address] Lab Director: Bowen Lemon MD Staging: NOT REPORTED Normal [facility] Comment on above: Performed By: #### T ROPI, BMPX, LIPR ####[facility] [address] [place], [place] [phone] Lab Director: Bowen Lemon MD Basic Metabolic Panel w/ Ref darlene to MGOrdered By: Jarek Osborn on 04-26-2021 Anion gap [Moles/Vol] 12 mmol/L 9 - 17 mmol/L [facility] [employer] Phone: Calcium [Mass/Vol] 9.3 mg/dL 8.6 - 10. 4 mg/dL [facility] Phone: Chloride [Moles/Vol] 102 mmol/L 98 - 10 7 mmol/L [facility] Phone: CO2 [Moles/Vol] 23 mmol/L 20 - 31 mmol/L [facility] Phone: Creatinine [Mass/Vol] 0.53 mg/dL Low 0.70 - 1.20 mg/dL [facility] Phone: GFR >60 >60 mL/min [facility] Phone: GFR Non- >60 >60 mL/min [facility] Phone: GFR/1.73 sq M.predicted MDRD (S/P/Bld) [Vol rate/Area] [facility] Phone: Comment on above: Average GFR for 60-6 9 years old: 85 mL/min/1.73sq m Chronic Kidney Disease: <60 mL/min/1.73sq m Kidney failure: <15 mL/min/1.73sq m eGFR calculated using average adult body mass. Additional eGFR calculator available at: http://www.[employer]/multiple_crcl_2012.htm GFR/1.73 sq M.predicted MDRD (S/P/Bld) [Vol rate/Area] NOT REPORTED [facility] Phone: Glucose [Mass/Vol] 249 mg/dL High 70 - 99 mg/dL [facility] Phone: Potassium [Moles/Vol] 3.6 mmol/L Low 3.7 - 5.3 mmol/L [facility] Phone: Sodium [Moles/Vol] 137 mmol/L 135 - 144 mmol/L [facility] Phone: Urea nitrogen (BldV) [Mass/Vol] 9 mg/dL 8 - 23 mg/dL [facility] Phone: Urea nitrogen/Creatinine (Bld) [Mass ratio] NOT REPORTED [facility] Phone: Drug Scr, Abuse, Uron 2020 Amphetamine(s),Ur Negative Normal NEG [facility] Comment on above: Result Comment: (Positive cutoff 1000 ng/mL) Performed By: #### U AX, UMICAO, KIM ####[facility] [address] [place] [address] Lab Director: Bowen Lemon MD Barbiturate(s),Ur Negative Normal NEG [facility] Comment on above: Result Comment: (Positive cutoff 200 ng/mL) Performed By: #### U AX, UMICAO, KIM ####[facility] [address] [place] [address] Lab Director: Bowen Lemon MD Benzodiazepine(s) Negative Normal NEG [facility] Comment on above: Result Comment: (Positive cutoff 200 ng/mL) Performed By: #### U AX, UMICAO, KIM ####[facility] [address] [place] [address] Lab Director: Bowen Lemon MD Cannabinoid(s),Ur Negative Normal NEG [facility] Comment on above: Result Comment: (Positive cutoff 50 ng/mL) Performed By: #### U AX, UMICAO, KIM ####[facility] [address] [place] [address] Lab Director: Bowen Lemon MD Cocaine Metabolite Negative Normal NEG [facility] Comment on above: Result Comment: (Positive cutoff 300 ng/mL) Performed By: #### U AX, UMICAO, KIM ####[facility] [address] [place] [address] Lab Director: Bowen Lemon MD Interpretive Info Assay provides medic al screening only. The absence of expected drug(s) and/or Normal [facility] Comment on above: Result Comment: meta bolite(s) may indicate diluted or adulterated urine, limitations of testing or timing of collection. Testing for legal purposes should be confirmed by another method. To request confirmation of test result, please call the lab within 7 days of sample submission. Performed By: #### U AX, UMICAO, KIM ####[facility] [address] [place] [address] Lab Director: Bowen Lemon MD Methadone Ql (U) Negative Normal NEG [facility] Comment on above: Result Comment: (Positive cutoff 300 ng/mL) Performed By: #### U AX, UMICAO, KIM ####[facility] [address] [place], [place] [phone] Director: Bowen Lemon MD Opiate(s), Ur Negative Normal NEG [facility] Comment on above: Result Comment: (Positive cutoff 300 ng/mL) Performed By: #### U AX, UMICAO, KIM ####[facility] [address] [place] [address] Lab Director: Bowen Lemon MD Oxycodone, Urine Negative Normal NEG [facility] Comment on above: Result Comment: (Positive cutoff 100 ng/mL) Performed By: #### U AX, UMICAO, KIM ####[facility] [address] [place] [address] Lab Director: Bowen Lemon MD Phencyclidine, Ur Negative Normal NEG [facility] Comment on above: Result Comment: (Positive cutoff 25 ng/mL) Performed By: #### U AX, UMICAO, KIM ####[facility] [address] [place], [place] [phone] Director: Bowen Lemon MD Buprenorphrine, Ur NOT REPORTED Normal NEG [facility] Comment on above: Performed By: #### U AX, UMICAO, KIM ####[facility] [address] [place] [address] Lab Director: Bowen Lemon MD MDMA, Urine NOT REPORTED Normal NEG [facility] Comment on above: Performed By: #### U AX, UMICAO, KMI ####[facility] [address] [place] [address] Lab Director: Bowen Lemon MD Methamphetamine, Ur NOT REPORTED Normal NEG [facility] Comment on above: Performed By: #### U AX, UMICAO, KIM ####[facility] [address] [place] [address] Lab Director: Bowen Lemon MD Propoxyphene,Urine NOT REPORTED Normal NEG [facility] Comment on above: Performed By: #### U AX, UMICAO, KIM ####[facility] [address] [place] [address] Lab Director: Bowen Lemon MD Tricyclic antidepressants Screen Ql (U) NOT REPORTED Normal NEG [facility] Comment on above: Performed By: #### U AX, UMICAO, KIM ####[facility] [address] [place] [address] Lab Director: Bowen Lemon MD EKG 12 LeadOrdered By: Milton Parnell on 04-26-2021 Atrial Rate 83 BPM [facility] Phone: P Mancos 48 degrees [facility] Phone: P-R Interval 158 ms [facility] Phone: Q-T Interval 394 ms [facility] Phone: QRS Duration 98 ms [facility] Phone: [phone] QTc Calculation (Bazett) 462 ms [facility] Phone: R Mancos -20 degrees [facility] Phone: T Mancos 89 degrees [facility] Phone: Ventricular Rate 83 BPM [facility] Phone: Normal sinus rhythm Normal ECG When compared with ECG of 24-APR-2021 21:59, No significant change was found [facility] Phone: Adam, Mhpn Incoming E kg Results From [employer] - 04/26/2021 1:58 PM EDT Normal sinus rhythm Normal ECG When compared with ECG of 24-APR-2021 21:59, No significant change was found [facility] Phone: [facility] Phone: LIPID PANELOrdered By: Jay Osborn on 04-26-2021 Cholesterol [Mass/Vol] 112 mg/dL <200 [facility] Phone: Comment on above: Cholesterol Guidelines: <200 Desirable 200-240 Borderline >240 Undesirable Cholesterol in HDL [Mass/Vol] 25 mg/dL Low >40 [facility] Phone: Comment on above: HDL Guidelines: <40 Undesirable 40-59 Borderline >59 Desirable Cholesterol in LDL [Mass/Vol] 51 mg/dL 0 - 130 mg/dL [facility] Phone: Comment on above: LDL Guidelines: <100 Desirable 100-129 Near to/above Desirable 130-159 Borderline >159 Undesirable Direct (measured) LDL and calculated LDL are not interchangeable tests. Cholesterol in VLDL [Mass/Vol] NOT REPORTED High 1 - 30 mg/dL [facility] Phone: Cholesterol.total/Dania sterol in HDL [Mass ratio] 4.5 {ratio} <5 [facility] Phone: Triglyceride [Mass/Vol] 181 mg/dL High <150 [employer] Phone: Comment on above: Triglyceride Guidelines: <150 Desirable 150-199 Borderline 200-499 High >499 Very high Based on AHA Guidelines for fasting triglyceride, July 2012. Lipid Profileon 04-26-2021 Cholesterol [Mass/Vol] 112 mg/dL Normal <200 [facility] Comment on above: Result Comment: Cholesterol Guidelines: <200 Desirable 200-240 Borderline >240 Undesirable Performed By: #### T ROPI, BMPX, LIPR ####[facility] [address] [place] [address] Lab Director: Bowen Lemon MD Cholesterol in HDL [Mass/Vol] 25 mg/dL Low >40 [facility] Comment on above: Result Comment: HDL Guidelines: <40 Undesirable 40-59 Borderline >59 Desirable Performed By: #### T ROSA, BMPX, LIPR ####[facility] [address] [place] [address] Lab Director: Bowen Lemon MD Cholesterol in LDL [Mass/Vol] 51 mg/dL Normal 0-130 [facility] Comment on above: Result Comment: LDL Guidelines: <100 Desirable 100-129 Near to/above Desirable 130-159 Borderline >159 Undesirable Direct (measured) LDL and calculated LDL are not interchangeable tests. Performed By: #### T ROSA, BMPX, LIPR ####[facility] [facility] [address] [place] [id number] Lab Director: Bowen Lemon MD Cholesterol.total/Dania sterol in HDL [Mass ratio] 4.5 {ratio} Normal <5 [facility] Comment on above: Performed By: #### T ROPI, BMPX, LIPR ####[facility] [address] [place] [address] Lab Director: Bowen Lemon MD Triglyceride [Mass/Vol] 181 mg/dL High <150 M [facility] Comment on above: Result Comment: Triglyceride Guidelines: <150 Desirable 150-199 Borderline 200-499 High >499 Very high Based on AHA Guidelines for fasting triglyceride, July 2012. Performed By: #### T ROPI, BMPX, LIPR ####[facility] [address] [place], [place] [id number] lab Director: Bowen Lemon MD Cholesterol,VLDL NOT REPORTED Normal 11-16 [facility] Comment on above: Performed By: #### T ROPI, BMPX, LIPR ####[facility] [place] [address] lab Director: Bowen Lemon MD MRI BRAIN WO CONTRASTon 04-17 MRI BRAIN WO CONTRAST EXAMINATION: MRI OF THE BRAIN WITHOUT CONTRAST 04/26/2021 11:17 am TECHNIQUE: Multiplanar multisequence MRI of the brain was performed without the administration of intravenous contrast. COMPARISON: CT head 04/24/2021 HISTORY: ORDERING SYSTEM PROVIDED HISTORY: stroke workup TECHNOLOGIST PROVIDED HISTORY: stroke workup Reason for Exam: stroke work up Acuity: Acute Type of Exam: Unknown FINDINGS: INTRACRANIAL STRUCTURES/VENTRICLES: Small acute infarct is identified within the left thalamus and posterior limb of the internal capsule. No mass effect or midline shift. No evidence of an acute intracranial hemorrhage. The ventricles and sulci are normal in size and configuration. The sellar/suprasellar regions appear unremarkable. The normal signal voids within the major intracranial vessels appear maintained. Mild chronic microvascular disease is identified within the periventricular white matter, moderate cerebral atrophy is noted. There is susceptibility identified within the right parietal lobe periventricular white matter which may represent a small cavernoma versus old hemorrhage. ORBITS: The visualized portion of the orbits demonstrate no acute abnormality. SINUSES: The visualized paranasal sinuses and mastoid air cells are well aerated. BONES/SOFT TISSUES: The bone marrow signal intensity appears normal. The soft tissues demonstrate no acute abnormality. 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 Mild chronic microvascular disease within the periventricular white matter. Moderate cerebral atrophy. Susceptibility within the right parietal lobe periventricular white matter which may represent a cavernoma versus old hemorrhage. 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 Mild chronic microvascular disease within the periventricular white matter. Moderate cerebral atrophy. Susceptibility within the right parietal lobe periventricular white matter which may represent a cavernoma versus old hemorrhage. [employer] Phone: EXAMINATION: MRI OF THE BRAIN WITHOUT CONTRAST 04/26/2021 11:17 am TECHNIQUE: Multiplanar multisequence MRI of the brain was performed without the administration of intravenous contrast. COMPARISON: CT head 04/24/2021 HISTORY: ORDERING SYSTEM PROVIDED HISTORY: stroke workup TECHNOLOGIST PROVIDED HISTORY: stroke workup Reason for Exam: stroke work up Acuity: Acute Type of Exam: Unknown FINDINGS: INTRACRANIAL STRUCTURES/VENTRICLES: Small acute infarct is identified within the left thalamus and posterior limb of the internal capsule. No mass effect or midline shift. No evidence of an acute intracranial hemorrhage. The ventricles and sulci are normal in size and configuration. The sellar/suprasellar regions appear unremarkable. The normal signal voids within the major intracranial vessels appear maintained. Mild chronic microvascular disease is identified within the periventricular white matter, moderate cerebral atrophy is noted. There is susceptibility identified within the right parietal lobe periventricular white matter which may represent a small cavernoma versus old hemorrhage. ORBITS: The visualized portion of the orbits demonstrate no acute abnormality. SINUSES: The visualized paranasal sinuses and mastoid air cells are well aerated. BONES/SOFT TISSUES: The bone marrow signal intensity appears normal. The soft tissues demonstrate no acute abnormality. [employer] Phone: [facility], [facility] Incoming R adiant Results From [facility] - 04/26/2021 3:56 PM EDT EXAMINATION: MRI OF THE BRAIN WITHOUT CONTRAST 04/26/2021 11:17 am TECHNIQUE: Multiplanar multisequence MRI of the brain was performed without the administration of intravenous contrast. COMPARISON: CT head 04/24/2021 HISTORY: ORDERING SYSTEM PROVIDED HISTORY: stroke workup TECHNOLOGIST PROVIDED HISTORY: stroke workup Reason for Exam: stroke work up Acuity: Acute Type of Exam: Unknown FINDINGS: INTRACRANIAL STRUCTURES/VENTRICLES: Small acute infarct is identified within the left thalamus and posterior limb of the internal capsule. No mass effect or midline shift. No evidence of an acute intracranial hemorrhage. The ventricles and sulci are normal in size and configuration. The sellar/suprasellar regions appear unremarkable. The normal signal voids within the major intracranial vessels appear maintained. Mild chronic microvascular disease is identified within the periventricular white matter, moderate cerebral atrophy is noted. There is susceptibility identified within the right parietal lobe periventricular white matter which may represent a small cavernoma versus old hemorrhage. ORBITS: The visualized portion of the orbits demonstrate no acute abnormality. SINUSES: The visualized paranasal sinuses and mastoid air cells are well aerated. BONES/SOFT TISSUES: The bone marrow signal intensity appears normal. The soft tissues demonstrate no acute abnormality. 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 Mild chronic microvascular disease within the periventricular white matter. Moderate cerebral atrophy. Susceptibility within the right parietal lobe periventricular white matter which may represent a cavernoma versus old hemorrhage. [employer] Work Phone: [employer] Phone: MRI CERVICAL SPINE WO CONTRA STon 04-26-2021 MRI CERVICAL SPINE WO CONTRAST EXAMINATION: MRI OF THE CERVICAL SPINE WITHOUT CONTRAST 04/26/2021 11:38 am TECHNIQUE: Multiplanar multisequence MRI of the cervical spine was performed without the administration of intravenous contrast. COMPARISON: CT cervical spine 04/24/2021 HISTORY: ORDERING SYSTEM PROVIDED HISTORY: Fall with cervical spine injury, reported weakness in all 4 extremities TECHNOLOGIST PROVIDED HISTORY: Fall with cervical spine injury, reported weakness in all 4 extremities Decision Support Exception - unselect if not a suspected or confirmed emergency medical condition->Emergency Medical Condition ([place]) Reason for Exam: Fall with cervical spine injury, weakness in all 4 extremities Acuity: Acute Type of Exam: Unknown FINDINGS: BONES/ALIGNMENT: There is normal alignment of the spine. The vertebral body heights are maintained. The bone marrow signal appears unremarkable. No acute fracture is identified. Congenital spinal canal stenosis is identified. SPINAL CORD: No abnormal cord signal is seen. SOFT TISSUES: No paraspinal mass identified. C2-C3: Moderate right foraminal stenosis identified due to uncovertebral joint hypertrophy and facet disease. C3-C4: Both foramina are severely stenotic secondary to uncovertebral joint hypertrophy and facet arthropathy. Broad disc osteophyte complex results in mild to moderate central canal stenosis. C4-C5: Mild bilateral foraminal stenosis is identified due to uncovertebral joint hypertrophy and facet disease. C5-C6: Broad disc osteophyte complex is slightly eccentric to the right and results in moderate central canal stenosis. Moderate left foraminal stenosis and mild right foraminal stenosis are identified due to uncovertebral joint hypertrophy and facet disease. C6-C7: Moderate central canal stenosis again identified due to shallow broad disc osteophyte complex. Severe left foraminal stenosis and moderate right foraminal stenosis are identified. C7-T1: There is no significant disc protrusion, spinal canal stenosis or neural foraminal narrowing. 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 Multilevel bilateral neural foraminal stenosis as noted above most severe C3-C4 and C6-C7. Interpreted by: Dhruv Noriega MD Signed by: Dhruv Noriega MD 04/26/21 Final result Normal [facility] MRI CERVICAL SPINE WO CONTRA STOrdered By: Esteban Serrano on 04-26-2021 Congenital spinal ca nal stenosis superimposed moderate diffuse degenerative disc disease Moderate central canal stenosis at C5-C6 and C6-C7 and to slightly lesser extent at C3-C4. Multilevel bilateral neural foraminal stenosis as noted above most severe C3-C4 and C6-C7. [facility] Work Phone: EXAMINATION: MRI OF THE CERVICAL SPINE WITHOUT CONTRAST 04/26/2021 11:38 am TECHNIQUE: Multiplanar multisequence MRI of the cervical spine was performed without the administration of intravenous contrast. COMPARISON: CT cervical spine 04/24/2021 HISTORY: ORDERING SYSTEM PROVIDED HISTORY: Fall with cervical spine injury, reported weakness in all 4 extremities TECHNOLOGIST PROVIDED HISTORY: Fall with cervical spine injury, reported weakness in all 4 extremities Decision Support Exception - unselect if not a suspected or confirmed emergency medical condition->Emergency Medical Condition (MA) Reason for Exam: Fall with cervical spine injury, weakness in all 4 extremities Acuity: Acute Type of Exam: Unknown FINDINGS: BONES/ALIGNMENT: There is normal alignment of the spine. The vertebral body heights are maintained. The bone marrow signal appears unremarkable. No acute fracture is identified. Congenital spinal canal stenosis is identified. SPINAL CORD: No abnormal cord signal is seen. SOFT TISSUES: No paraspinal mass identified. C2-C3: Moderate right foraminal stenosis identified due to uncovertebral joint hypertrophy and facet disease. C3-C4: Both foramina are severely stenotic secondary to uncovertebral joint hypertrophy and facet arthropathy. Broad disc osteophyte complex results in mild to moderate central canal stenosis. C4-C5: Mild bilateral foraminal stenosis is identified due to uncovertebral joint hypertrophy and facet disease. C5-C6: Broad disc osteophyte complex is slightly eccentric to the right and results in moderate central canal stenosis. Moderate left foraminal stenosis and mild right foraminal stenosis are identified due to uncovertebral joint hypertrophy and facet disease. C6-C7: Moderate central canal stenosis again identified due to shallow broad disc osteophyte complex. Severe left foraminal stenosis and moderate right foraminal stenosis are identified. C7-T1: There is no significant disc protrusion, spinal canal stenosis or neural foraminal narrowing. [employer] Phone: Adam, [facility] Incoming R adiant Results From [facility] - 04/26/2021 3:56 PM EDT EXAMINATION: MRI OF THE CERVICAL SPINE WITHOUT CONTRAST 04/26/2021 11:38 am TECHNIQUE: Multiplanar multisequence MRI of the cervical spine was performed without the administration of intravenous contrast. COMPARISON: CT cervical spine 04/24/2021 HISTORY: ORDERING SYSTEM PROVIDED HISTORY: Fall with cervical spine injury, reported weakness in all 4 extremities TECHNOLOGIST PROVIDED HISTORY: Fall with cervical spine injury, reported weakness in all 4 extremities Decision Support Exception - unselect if not a suspected or confirmed emergency medical condition->Emergency Medical Condition (MA) Reason for Exam: Fall with cervical spine injury, weakness in all 4 extremities Acuity: Acute Type of Exam: Unknown FINDINGS: BONES/ALIGNMENT: There is normal alignment of the spine. The vertebral body heights are maintained. The bone marrow signal appears unremarkable. No acute fracture is identified. Congenital spinal canal stenosis is identified. SPINAL CORD: No abnormal cord signal is seen. SOFT TISSUES: No paraspinal mass identified. C2-C3: Moderate right foraminal stenosis identified due to uncovertebral joint hypertrophy and facet disease. C3-C4: Both foramina are severely stenotic secondary to uncovertebral joint hypertrophy and facet arthropathy. Broad disc osteophyte complex results in mild to moderate central canal stenosis. C4-C5: Mild bilateral foraminal stenosis is identified due to uncovertebral joint hypertrophy and facet disease. C5-C6: Broad disc osteophyte complex is slightly eccentric to the right and results in moderate central canal stenosis. Moderate left foraminal stenosis and mild right foraminal stenosis are identified due to uncovertebral joint hypertrophy and facet disease. C6-C7: Moderate central canal stenosis again identified due to shallow broad disc osteophyte complex. Severe left foraminal stenosis and moderate right foraminal stenosis are identified. C7-T1: There is no significant disc protrusion, spinal canal stenosis or neural foraminal narrowing. 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 Multilevel bilateral neural foraminal stenosis as noted above most severe C3-C4 and C6-C7. [employer] Phone: [employer] Phone: MRI LUMBAR SPINE WO CONTRAST on 04-26-2021 MRI LUMBAR SPINE WO CONTRAST EXAMINATION: MRI OF THE LUMBAR SPINE WITHOUT CONTRAST, 04/26/2021 10:58 am TECHNIQUE: Multiplanar multisequence MRI of the lumbar spine was performed without the administration of intravenous contrast. COMPARISON: None HISTORY: ORDERING SYSTEM PROVIDED HISTORY: parapresis TECHNOLOGIST PROVIDED HISTORY: parapresis Reason for Exam: fall Acuity: Acute Type of Exam: Unknown FINDINGS: BONES/ALIGNMENT: There is normal alignment of the spine. The vertebral body heights are maintained. There is high T2 signal within the disc space at L5-S1. Marrow edema is identified at L5-S1. These changes may represent discitis/osteomyelitis. No acute fracture is identified. Borderline congenital spinal canal stenosis is identified. SPINAL CORD: The conus medullaris is unremarkable. SOFT TISSUES: No paraspinal mass identified. L1-L2: There is no significant disc herniation, spinal canal stenosis or neural foraminal narrowing. L2-L3: There is no significant disc herniation, spinal canal stenosis or neural foraminal narrowing. L3-L4: There is no significant disc herniation, spinal canal stenosis or neural foraminal narrowing. L4-L5: Annular disc bulge and mild facet arthropathy results in mild bilateral foraminal stenosis. L5-S1: Severe bilateral foraminal stenosis is identified due to encroachment by disc bulge and facet disease. IMPRESSION: Edema within the endplates at L5-S1 presence of high T2 signal within disc space. These changes are suspicious for acute discitis/osteomyelitis. No epidural abscess or significant paravertebral inflammation is identified. Correlation with C-reactive protein is suggested. Severe bilateral foraminal stenosis at L5-S1. Mild bilateral foraminal stenosis at L4-L5. Borderline congenital spinal canal stenosis. Interpreted by: Dhruv Noriega MD Signed by: Dhruv Noriega MD 04/26/21 Final result Normal [facility] MRI LUMBAR SPINE WO CONTRAST Ordered By: Sabrina Aguiar on 04-26-2021 Edema within the end plates at L5-S1 presence of high T2 signal within disc space. These changes are suspicious for acute discitis/osteomyelitis. No epidural abscess or significant paravertebral inflammation is identified. Correlation with C-reactive protein is suggested. Severe bilateral foraminal stenosis at L5-S1. Mild bilateral foraminal stenosis at L4-L5. Borderline congenital spinal canal stenosis. [employer] Phone: EXAMINATION: MRI OF THE LUMBAR SPINE WITHOUT CONTRAST, 04/26/2021 10:58 am TECHNIQUE: Multiplanar multisequence MRI of the lumbar spine was performed without the administration of intravenous contrast. COMPARISON: None HISTORY: ORDERING SYSTEM PROVIDED HISTORY: parapresis TECHNOLOGIST PROVIDED HISTORY: parapresis Reason for Exam: fall Acuity: Acute Type of Exam: Unknown FINDINGS: BONES/ALIGNMENT: There is normal alignment of the spine. The vertebral body heights are maintained. There is high T2 signal within the disc space at L5-S1. Marrow edema is identified at L5-S1. These changes may represent discitis/osteomyelitis. No acute fracture is identified. Borderline congenital spinal canal stenosis is identified. SPINAL CORD: The conus medullaris is unremarkable. SOFT TISSUES: No paraspinal mass identified. L1-L2: There is no significant disc herniation, spinal canal stenosis or neural foraminal narrowing. L2-L3: There is no significant disc herniation, spinal canal stenosis or neural foraminal narrowing. L3-L4: There is no significant disc herniation, spinal canal stenosis or neural foraminal narrowing. L4-L5: Annular disc bulge and mild facet arthropathy results in mild bilateral foraminal stenosis. L5-S1: Severe bilateral foraminal stenosis is identified due to encroachment by disc bulge and facet disease. [employer] Phone: [facility], [facility] Incoming R adiant Results From [facility] - 04/26/2021 3:56 PM EDT EXAMINATION: MRI OF THE LUMBAR SPINE WITHOUT CONTRAST, 04/26/2021 10:58 am TECHNIQUE: Multiplanar multisequence MRI of the lumbar spine was performed without the administration of intravenous contrast. COMPARISON: None HISTORY: ORDERING SYSTEM PROVIDED HISTORY: parapresis TECHNOLOGIST PROVIDED HISTORY: parapresis Reason for Exam: fall Acuity: Acute Type of Exam: Unknown FINDINGS: BONES/ALIGNMENT: There is normal alignment of the spine. The vertebral body heights are maintained. There is high T2 signal within the disc space at L5-S1. Marrow edema is identified at L5-S1. These changes may represent discitis/osteomyelitis. No acute fracture is identified. Borderline congenital spinal canal stenosis is identified. SPINAL CORD: The conus medullaris is unremarkable. SOFT TISSUES: No paraspinal mass identified. L1-L2: There is no significant disc herniation, spinal canal stenosis or neural foraminal narrowing. L2-L3: There is no significant disc herniation, spinal canal stenosis or neural foraminal narrowing. L3-L4: There is no significant disc herniation, spinal canal stenosis or neural foraminal narrowing. L4-L5: Annular disc bulge and mild facet arthropathy results in mild bilateral foraminal stenosis. L5-S1: Severe bilateral foraminal stenosis is identified due to encroachment by disc bulge and facet disease. IMPRESSION: Edema within the endplates at L5-S1 presence of high T2 signal within disc space. These changes are suspicious for acute discitis/osteomyelitis. No epidural abscess or significant paravertebral inflammation is identified. Correlation with C-reactive protein is suggested. Severe bilateral foraminal stenosis at L5-S1. Mild bilateral foraminal stenosis at L4-L5. Borderline congenital spinal canal stenosis. [employer] Phone: [employer] Phone: No Panel InformationOrdered By: Jarek Osborn on 04-26-2021 Interpretation and review of laboratory results Abnormal [employer] Phone: [employer] Phone: Troponinon 04-26-2021 Troponin, High Sens 267 ng/L Critically high 0-22 [facility] Comment on above: Result Comment: High Sensitivity Troponin values cannot be compared with other Troponin methodologies. Patients with high levels of Biotin oral intake (i.e >5mg/day) may have falsely decreased Troponin levels. Samples collected within 8 hours of biotin intake may require additional information for diagnosis. Previous Alert Value Reported Performed By: #### T ROPI ####[facility] [address] [place] [address] Lab Director: Bowen Lemon MD Troponin Interp. NOT REPORTED Normal [facility] Comment on above: Performed By: #### T ROPI ####[facility] [address] [place] [address] [phone] Director: Bowen Lemon MD Troponin T NOT REPORTED Normal <0.03 [facility] Comment on above: Performed By: #### T ROPI ####[facility] [address] [place] [address] [phone] Director: Bowen Lemon MD Troponin, High Sens 199 ng/L Critically high 0-22 [facility] Comment on above: Result Comment: High Sensitivity Troponin values cannot be compared with other Troponin methodologies. Patients with high levels of Biotin oral intake (i.e >5mg/day) may have falsely decreased Troponin levels. Samples collected within 8 hours of biotin intake may require additional information for diagnosis. Previous Alert Value Reported Performed By: #### T ROPI, BMPX, LIPR ####[facility] [address] [place], [place] [phone] Director: Bowen Lemon MD Troponin Interp. NOT REPORTED Normal [facility] Comment on above: Performed By: #### T ROPI, BMPX, LIPR ####[facility] [address] [place], [place] [phone] Director: Bowen Lemon MD Troponin T NOT REPORTED Normal <0.03 [facility] Comment on above: Performed By: #### T ROPI, BMPX, LIPR ####[facility] [address] [place], [place] [id number] lab Director: Bowen Lemon MD TroponinOrdered By: Jarek mar on 04-26-2021 Interpretation and review of laboratory results Abnormal [employer] Phone: Troponin Interp NOT REPORTED [employer] Phone: Troponin T NOT REPORTED <0.03 ng/mL [employer] Phone: Troponin, High Sensitivity 267 ng/L Critically high 0 - 22 ng/L [employer] Phone: Comment on above: High Sensitivity Troponin values cannot be compared with other Troponin methodologies. Patients with high levels of Biotin oral intake (i.e >5mg/day) may have falsely decreased Troponin levels. Samples collected within 8 hours of biotin intake may require additional information for diagnosis. Previous Alert Value Reported [employer] Phone: TroponinOrdered By: Babak benton on 04-26-2021 Interpretation and review of laboratory results Abnormal [employer] Phone: Troponin Interp NOT REPORTED [employer] Phone: Troponin T NOT REPORTED <0.03 ng/mL [employer] Phone: Troponin, High Sensitivity 199 ng/L Critically high 0 - 22 ng/L [employer] Phone: Comment on above: High Sensitivity Troponin values cannot be compared with other Troponin methodologies. Patients with high levels of Biotin oral intake (i.e >5mg/day) may have falsely decreased Troponin levels. Samples collected within 8 hours of biotin intake may require additional information for diagnosis. Previous Alert Value Reported [employer] Phone: UA w/Reflex Cultureon 2020 Bilirubin, SemiQt,Ur Negative Normal NEG [facility] Comment on above: Performed By: #### U RAMÓN, KIM SANCHEZ ####[employer] [place] [address] Lab Director: Bowen Lemon MD Blood, Urine TRACE Abnormal NEG [facility] Comment on above: Performed By: #### U AX, UMICAO, KIM ####[facility] [address] [place], [place] [phone] Director: Bowen Lemon MD Clarity (U) CLEAR Normal CLEAR [facility] Comment on above: Performed By: #### U AX, UMICAO, KIM ####[facility] [address] [place], [place] [phone] Director: Bowen Lemon MD Color (U) YELLOW Normal YEL [facility] Comment on above: Performed By: #### U AX, UMICAO, KIM ####[facility] [address] [place], [place] [phone] Director: Bowen Lemon MD Glucose Ql (U) 1+ Abnormal NEG [facility] Comment on above: Performed By: #### U AX, UMICAO, KIM ####[facility] [address] [place], [place] [phone] Director: Bowen Lemon MD Ketones Ql (U) TRACE Abnormal NEG [facility] Comment on above: Performed By: #### U AX, UMICAO, KIM ####[facility] [address] [place], [place] [phone] Director: Bowen Lemon MD Leukocyte esterase Test strip Ql (U) Negative Normal NEG [facility] Comment on above: Performed By: #### U AX, UMICAO, KIM ####[facility] [address] [place], [place] [phone] Director: Bowen Lemon MD Nitrite,Ur Negative Normal NEG [facility] Comment on above: Performed By: #### U AX, UMICAO, KIM ####[facility] [address] [place], [place] [phone] Director: Bowen Lemon MD PH,Ur 7.0 Normal 5.0-8.0 [facility] Comment on above: Performed By: #### U AX, UMICAO, KIM ####[facility] [address] [place], [place] [phone])[phone] Director: Bowen Lemon MD Protein Ql (U) 2+ Abnormal NEG [facility] Comment on above: Performed By: #### U AX, UMICAO, KIM ####[facility] [address] [place], [place] [phone] Director: Bowen Lemon MD Spec. [place],Ur 1.012 Normal 1.005-1.03 0 [facility] Comment on above: Performed By: #### U AX, UMICAO, KIM ####[facility] [address]xit[address] [place], [place] [phone])[phone] Director: Bowen Lemon MD Urobilinogen,Ur Normal Normal NORM [facility] Comment on above: Performed By: #### U AX, UMICAO, KIM ####[facility] [address] [place], [place] [phone] Director: Bowen Lemon MD Comment NOT REPORTED Normal [facility] Comment on above: Performed By: #### U AX, UMICAO, KIM ####[facility] [address] [place], [place] [phone] Director: Bowen Lemon MD Urinalysis,Microon 1 ----- Normal [facility] Comment on above: Performed By: #### U AX, UMICAO, KIM ####[facility] [address]okq[address] [place], [place] [phone] Director: Bowen Lemon MD Epithelial cells LM Ql (Urine sed) None Normal 0-5 [facility] Comment on above: Performed By: #### U AX, UMICAO, KIM ####[facility] [address] [place] [address] Lab Director: Bowen Lemon MD Urine RBC's 5 TO 10 Normal 0-4 [facility] Comment on above: Result Comment: Refe rence range defined for non-centrifuged specimen. Performed By: #### U AX, UMICAO, KIM ####[facility] [address] [place] [address] Lab Director: Bowen Lemon MD Urine WBC's None Normal 0-5 [facility] Comment on above: Performed By: #### U AX, UMICAO, KIM ####[facility] [address] [place] [address] Lab Director: Boewn Lemon MD Amorphous sediment LM Ql (Urine sed) NOT REPORTED Normal NONE [facility] Comment on above: Performed By: #### U AX, UMICAO, KIM ####[facility] [address] [place] [address] Lab Director: Bowen Lemon MD Bacteria NOT REPORTED Normal NONE [facility] Comment on above: Performed By: #### U AX, UMICAO, KIM ####[facility] [address] [place] [address] Lab Director: Bowen Lemon MD Casts NOT REPORTED Normal 0-8 [facility] Comment on above: Performed By: #### U AX, UMICAO, KIM ####[facility] [address] [place], [place] [phone])[phone] Director: Bowen Lemon MD Crystals LM Nom (Urine sed) NOT REPORTED Normal NONE [facility] Comment on above: Performed By: #### U AX, UMICAO, KIM ####[facility] [address] [place], [place] [phone] Director: Bowen Lemon MD Epithelial, Renal NOT REPORTED Normal 0 [facility] Comment on above: Performed By: #### U AX, UMYOANA, KIM ####[facility] [address] [place] [address] Lab Director: Bowen Lemon MD Mucus Strands NOT REPORTED Normal NONE [facility] Comment on above: Performed By: #### U AX, UMYOANA, KIM ####[facility] [address] [place] [address] Lab Director: Bowen Lemon MD Other Observations NOT REPORTED Normal NREQ [facility] Comment on above: Performed By: #### U AX, UMICAO, KIM ####[facility] [address] [place] [address] Lab Director: Bowen Lemon MD Trichomonas NOT REPORTED Normal NONE [facility] Comment on above: Performed By: #### U AX, UMYOANA, KIM ####[facility] [address] [place] [address] Lab Director: Bowen Lemon MD Yeast NOT REPORTED Normal NONE [facility] Comment on above: Performed By: #### U AX, UMICAO, KIM ####[facility] [address] [place] [address] Lab Director: Bowen Lemon MD APTTon 04-25-2021 aPTT Coag (Bld) [Time] 24.8 s Normal 20.5-30.5 [facility] Comment on above: Result Comment: IV Heparin Therapy Range: 48.6-77.8 Performed By: #### P TT ####[facility] [address] [place] [address] Lab Director: Bowen Lemon MD aPTT Coag (Bld) [Time] 78.5 s High 20.5-30.5 [facility] Comment on above: Result Comment: IV Heparin Therapy Range: 48.6-77.8 Performed By: #### C BC, PTT ####[facility] [address] [place] [address] lab Director: Bowen Lemon MD APTTOrdered By: Vimal Geronimo on 04-25-2021 aPTT Coag (Bld) [Time] 24.8 s [facility] Phone: Comment on above: IV Heparin Therapy Range: 48.6-77.8 [facility] Phone: APTTOrdered By: Gee kim on 04-25-2021 aPTT Coag (Bld) [Time] 78.5 s [facility]: Comment on above: IV Heparin Therapy Range: 48.6-77.8 Interpretation and review of laboratory results Abnormal [facility] Phone: [facility] Phone: B12/Folate Panelon 1 Folic Acid 15.2 ng/mL Normal >4.8 [facility] Comment on above: Performed By: #### B 12FOL ####[facility] [address] [place] [address] [id number] lab Director: Bowen Lemon MD B12/Folate PanelOrdered By: Sabrina Aguiar on 04-25-2021 Cobalamin (Vitamin B12) [Mass/Vol] 594 pg/mL Normal 232-1245 [facility] Phone: Comment on above: Performed By: #### B 12FOL ####[facility] [address] [place] [address] Lab Director: Bowen Lemon MD C-Reactive Proteinon 021 CRP [Mass/Vol] 8.1 mg/L High 0.0-5.0 [facility] Comment on above: Performed By: #### S ED, CRP, STROKE #### [facility] [address] [place] [address] Agitator Operator: Bowen Lemon MD C-Reactive ProteinOrdered By : Kranthi Ruvalcaba on 04-25-2021 CRP [Mass/Vol] 8.1 mg/L High 0.0 - 5.0 mg/L [facility] Phone: Interpretation and review of laboratory results Abnormal [facility] Phone: [facility] Phone: CBCon 04-25-2021 Erythrocyte distribution width (RBC) [Ratio] 14.0 % Normal 11.8-14.4 [facility] Comment on above: Performed By: #### C BC, PTT ####[facility] [address] [place] [address] Lab Director: Bowen Lemon MD Hematocrit (Bld) [Volume fraction] 41.8 % Normal 40.7-50.3 [facility] Comment on above: Performed By: #### C BC, PTT ####[facility] [address] [place] [address] Lab Director: Bowen Lemon MD Hemoglobin (Bld) [Mass/Vol] 13.8 g/dL Normal 13.0-17.0 [facility] Comment on above: Performed By: #### C BC, PTT ####[facility] [address] [place] [address] Lab Director: Bowen Lemon MD MCH (RBC) [Entitic mass] 30.7 pg Normal 25.2-33.5 [facility] Comment on above: Performed By: #### C BC, PTT ####[facility] [address] [place] [address] Lab Director: Bowen Lemon MD MCHC (RBC) [Mass/Vol] 33.0 g/dL Normal 28.4-34.8 [facility] Comment on above: Performed By: #### C BC, PTT ####[facility] [address] [place], [place] [phone] Director: Bowen Lemon MD MCV (RBC) [Entitic vol] 93.1 fL Normal 82.6-102.9 [facility] Comment on above: Performed By: #### C BC, PTT ####[facility] [address] [place], [place] [phone] Director: Bowen Lemon MD NRBC Automated 0.0 per 100 WBC Normal 0.0 [facility] Comment on above: Performed By: #### C BC, PTT ####[facility] [address] [place], [place] [phone] Director: Bowen Lemon MD Platelet mean volume (Bld) [Entitic vol] 10.3 fL Normal 8.1-13.5 [facility] Comment on above: Performed By: #### C BC, PTT ####[facility] [address] [place], [place] [phone] Director: Bowen Lemon MD Platelets (Bld) [#/Vol] 195 10*3/uL Normal 138-453 [facility] Comment on above: Performed By: #### C BC, PTT ####[facility] [address] [place], [place] [phone] Director: Bowen Lemon MD RBC (Bld) [#/Vol] 4.49 10*6/uL Normal 4.21-5.77 [facility] Comment on above: Performed By: #### C BC, PTT ####[facility] [address] [place], [place] [phone] Director: Bowen Lemon MD WBC (Bld) [#/Vol] 6.7 10*3/uL Normal 3.5-11.3 [facility] Comment on above: Performed By: #### C BC, PTT ####[employer] [facility] [address] [place] [address] lab Director: Bowen Lemon MD CBCOrdered By: Gee benoit on 04-25-2021 Hematocrit (Bld) [Volume fraction] 41.8 % 40.7 - 50.3 % [facility] Phone: Hemoglobin.gastrointest inal spec 1 Ql (Stl) 13.8 g/dL 13.0 - 17.0 g/dL [facility] Phone: MCH (RBC) [Entitic mass] 30.7 pg 25.2 - 33.5 pg [employer] Phone: MCHC (RBC) [Mass/Vol] 33.0 g/dL 28.4 - 34.8 g/dL [employer] Phone: MCV (RBC) [Entitic vol] 93.1 fL 82.6 - 102.9 fL [facility] Phone: NRBC Automated 0.0 0.0 per 100 WBC [facility] Phone: Platelet distribution width (Bld) [Ratio] 14.0 % 11.8 - 14.4 % [facility] Phone: Platelet mean volume (Bld) [Entitic vol] 10.3 fL 8.1 - 13.5 fL [facility] Phone: Platelets (Bld) [#/Vol] 195 10*3/uL [facility] Phone: RBC (Bld) [#/Vol] 4.49 10*6/uL 4.21 - 5.77 m/uL [facility] Phone: WBC (Bld) [#/Vol] 6.7 10*3/uL [facility] Phone: [facility] Phone: COVID-19, RapidOrdered By: Alonso Oreilly on 04-25-2021 SARS-CoV-2 (COVID-19) RNA PLACIDO+probe Ql (Unsp spec) Not detected Not Detected [facility] Phone: Comment on above: Rapid NAAT: The specimen is NEGATIVE for SARS-CoV-2, the novel coronavirus associated with COVID-19. The ID NOW COVID-19 assay is designed to detect the virus that causes COVID-19 in patients with signs and symptoms of infection who are suspected of COVID-19. An individual without symptoms of COVID-19 and who is not shedding SARS-CoV-2 virus would expect to have a negative (not detected) result in this assay. Negative results should be treated as presumptive and, if inconsistent with clinical signs and symptoms or necessary for patient management, should be tested with an alternative molecular assay. Negative results do not preclude SARS-CoV-2 infection and should not be used as the sole basis for patient management decisions. Fact sheet for Healthcare Providers: https://www.fda.gov/media/360633/download Fact sheet for Patients: https://www.fda.gov/media/850561/download Methodology: Isothermal Nucleic Acid Amplification Specimen Description .NASOPHARYNGEAL SWAB [facility] Phone: [facility] Phone: CT ABDOMEN PELVIS WO CONTRAS Ton 04-25-2021 CT ABDOMEN PELVIS WO CONTRAST EXAMINATION: CT OF THE ABDOMEN AND PELVIS WITHOUT CONTRAST 04/25/2021 3:22 am TECHNIQUE: CT of the abdomen and pelvis was performed without the administration of intravenous contrast. Multiplanar reformatted images are provided for review. Dose modulation, iterative reconstruction, and/or weight based adjustment of the mA/kV was utilized to reduce the radiation dose to as low as reasonably achievable. COMPARISON: None. HISTORY: ORDERING SYSTEM PROVIDED HISTORY: trauma TECHNOLOGIST PROVIDED HISTORY: trauma Decision Support Exception - unselect if not a suspected or confirmed emergency medical condition->Emergency Medical Condition ([place]) Reason for Exam: trauma Acuity: Unknown Type of Exam: Unknown Relevant Medical/Surgical History: pt had CTA earlier tonight FINDINGS: Abdomen/Pelvis: Lower chest: The lung bases are well aerated. Pleural surfaces are unremarkable and no evidence of pleural effusion is identified. Organs: The liver, gallbladder, spleen, pancreas, adrenal glands, kidneys, are unremarkable in appearance. GI/Bowel: The stomach is unremarkable without wall thickening or distention. Multifocal diverticula are seen involving the sigmoid colon without evidence of adjacent inflammatory change within the mesenteric fat identified. Bowel loops are unremarkable in appearance without evidence of obstruction, distension or mucosal thickening. The appendix is normal. Pelvis: The urinary bladder is well distended and unremarkable in appearance. No evidence of pelvic free fluid is seen. Peritoneum/Retroperitoneum : No evidence of retroperitoneal or intraperitoneal lymphadenopathy is identified. No evidence of intraperitoneal free fluid is seen. Bones/Soft Tissues: Bifemoral arterial graft is noted in place. Severe atherosclerotic disease is seen involving the bilateral iliac vasculature. L5/S1 severe bilateral neural foraminal stenosis secondary to encroachment by disc osteophyte complex is seen. The bones, skeletal muscle bundles, fascial planes and subcutaneous soft tissues are otherwise unremarkable in appearance. IMPRESSION: 1. No acute abnormality of the abdomen or pelvis. 2. Sigmoid colon diverticulosis without evidence of diverticulitis. 3. Bifemoral arterial graft, not adequately evaluated in absence of CT angiographic study. 4. Severe bilateral iliac arterial atherosclerosis. 5. L5/S1 severe bilateral neural foraminal stenosis secondary to encroachment by disc osteophyte complex. Interpreted by: Guero Juárez MD Signed by: Guero Juárez MD 04/25/21 Final result Normal [facility] CT ABDOMEN PELVIS WO CONTRAS T Additional Contrast? NoneOrdered By: Kay Lou on 04-25-2021 1. No acute abnormal ity of the abdomen or pelvis. 2. Sigmoid colon diverticulosis without evidence of diverticulitis. 3. Bifemoral arterial graft, not adequately evaluated in absence of CT angiographic study. 4. Severe bilateral iliac arterial atherosclerosis. 5. L5/S1 severe bilateral neural foraminal stenosis secondary to encroachment by disc osteophyte complex. [employer] Work Phone: EXAMINATION: CT OF T ABDOMEN AND PELVIS WITHOUT CONTRAST 04/25/2021 3:22 am TECHNIQUE: CT of the abdomen and pelvis was performed without the administration of intravenous contrast. Multiplanar reformatted images are provided for review. Dose modulation, iterative reconstruction, and/or weight based adjustment of the mA/kV was utilized to reduce the radiation dose to as low as reasonably achievable. COMPARISON: None. HISTORY: ORDERING SYSTEM PROVIDED HISTORY: trauma TECHNOLOGIST PROVIDED HISTORY: trauma Decision Support Exception - unselect if not a suspected or confirmed emergency medical condition->Emergency Medical Condition ([place]) Reason for Exam: trauma Acuity: Unknown Type of Exam: Unknown Relevant Medical/Surgical History: pt had CTA earlier tonight FINDINGS: Abdomen/Pelvis: Lower chest: The lung bases are well aerated. Pleural surfaces are unremarkable and no evidence of pleural effusion is identified. Organs: The liver, gallbladder, spleen, pancreas, adrenal glands, kidneys, are unremarkable in appearance. GI/Bowel: The stomach is unremarkable without wall thickening or distention. Multifocal diverticula are seen involving the sigmoid colon without evidence of adjacent inflammatory change within the mesenteric fat identified. Bowel loops are unremarkable in appearance without evidence of obstruction, distension or mucosal thickening. The appendix is normal. Pelvis: The urinary bladder is well distended and unremarkable in appearance. No evidence of pelvic free fluid is seen. Peritoneum/Retroperitoneum : No evidence of retroperitoneal or intraperitoneal lymphadenopathy is identified. No evidence of intraperitoneal free fluid is seen. Bones/Soft Tissues: Bifemoral arterial graft is noted in place. Severe atherosclerotic disease is seen involving the bilateral iliac vasculature. L5/S1 severe bilateral neural foraminal stenosis secondary to encroachment by disc osteophyte complex is seen. The bones, skeletal muscle bundles, fascial planes and subcutaneous soft tissues are otherwise unremarkable in appearance. [employer] Work Phone: [facility] Incoming R adiant Results From [place] - 04/25/2021 5:21 AM EDT EXAMINATION: CT OF THE ABDOMEN AND PELVIS WITHOUT CONTRAST 04/25/2021 3:22 am TECHNIQUE: CT of the abdomen and pelvis was performed without the administration of intravenous contrast. Multiplanar reformatted images are provided for review. Dose modulation, iterative reconstruction, and/or weight based adjustment of the mA/kV was utilized to reduce the radiation dose to as low as reasonably achievable. COMPARISON: None. HISTORY: ORDERING SYSTEM PROVIDED HISTORY: trauma TECHNOLOGIST PROVIDED HISTORY: trauma Decision Support Exception - unselect if not a suspected or confirmed emergency medical condition->Emergency Medical Condition ([place]) Reason for Exam: trauma Acuity: Unknown Type of Exam: Unknown Relevant Medical/Surgical History: pt had CTA earlier tonight FINDINGS: Abdomen/Pelvis: Lower chest: The lung bases are well aerated. Pleural surfaces are unremarkable and no evidence of pleural effusion is identified. Organs: The liver, gallbladder, spleen, pancreas, adrenal glands, kidneys, are unremarkable in appearance. GI/Bowel: The stomach is unremarkable without wall thickening or distention. Multifocal diverticula are seen involving the sigmoid colon without evidence of adjacent inflammatory change within the mesenteric fat identified. Bowel loops are unremarkable in appearance without evidence of obstruction, distension or mucosal thickening. The appendix is normal. Pelvis: The urinary bladder is well distended and unremarkable in appearance. No evidence of pelvic free fluid is seen. Peritoneum/Retroperitoneum : No evidence of retroperitoneal or intraperitoneal lymphadenopathy is identified. No evidence of intraperitoneal free fluid is seen. Bones/Soft Tissues: Bifemoral arterial graft is noted in place. Severe atherosclerotic disease is seen involving the bilateral iliac vasculature. L5/S1 severe bilateral neural foraminal stenosis secondary to encroachment by disc osteophyte complex is seen. The bones, skeletal muscle bundles, fascial planes and subcutaneous soft tissues are otherwise unremarkable in appearance. IMPRESSION: 1. No acute abnormality of the abdomen or pelvis. 2. Sigmoid colon diverticulosis without evidence of diverticulitis. 3. Bifemoral arterial graft, not adequately evaluated in absence of CT angiographic study. 4. Severe bilateral iliac arterial atherosclerosis. 5. L5/S1 severe bilateral neural foraminal stenosis secondary to encroachment by disc osteophyte complex. [employer] Work Phone: [employer] Work Phone: CT CERVICAL SPINE WO CONTRAS Ton 04-25-2021 CT CERVICAL SPINE WO CONTRAST EXAMINATION: CT OF THE CERVICAL SPINE WITHOUT CONTRAST 04/24/2021 10:03 pm TECHNIQUE: CT of the cervical spine was performed without the administration of intravenous contrast. Multiplanar reformatted images are provided for review. Dose modulation, iterative reconstruction, and/or weight based adjustment of the mA/kV was utilized to reduce the radiation dose to as low as reasonably achievable. COMPARISON: None. HISTORY: ORDERING SYSTEM PROVIDED HISTORY: Fall, head contusion, neck tenderness TECHNOLOGIST PROVIDED HISTORY: Fall, head contusion, neck tenderness Decision Support Exception - unselect if not a suspected or confirmed emergency medical condition->Emergency Medical Condition ([place]) Reason for Exam: Fall, head contusion, neck tenderness FINDINGS: BONES/ALIGNMENT: There is no acute fracture or traumatic malalignment. DEGENERATIVE CHANGES: C5/C6: Moderate disc height loss is noted at this level in association with posterior disc osteophyte complex which indents the ventral thecal sac narrowing the midline AP thecal sac diameter to 8 mm consistent with moderate central canal stenosis. Disc osteophyte complex encroaches upon and causes moderate bilateral neural foraminal stenosis. C6/C7: Moderate disc height loss is noted at this level in association with posterior disc osteophyte complex which indents the ventral thecal sac narrowing the midline AP thecal sac diameter to 9 mm consistent with mild central canal stenosis. Disc osteophyte complex encroaches upon and causes severe left and moderate right neural foraminal stenosis. Otherwise, multilevel mild spondylosis is present within the cervical spine without further evidence of significant central canal stenosis/compromise identified. Multilevel hqft-jj-fcgnpyvz facet degenerative hypertrophy is seen. C3/C4 mild bilateral neural foraminal stenosis secondary to encroachment by disc osteophyte complex is seen. SOFT TISSUES: There is no prevertebral soft tissue swelling. IMPRESSION: 1. No acute abnormality of the cervical spine. 2. C5/C6 moderate, C6/C7 mild central canal stenosis secondary to encroachment by disc osteophyte complex. 3. C3/C4 mild bilateral, C5/C6 moderate bilateral, C6/C7 severe left and moderate right neural foraminal stenosis secondary to encroachment by disc osteophyte complex. Interpreted by: Guero Juárez MD Signed by: Guero Juárez MD 04/24/21 Final result Normal [facility] CT HEAD WO CONTRASTon 2020 CT HEAD WO CONTRAST EXAMINATION: CT OF THE HEAD WITHOUT CONTRAST 04/24/2021 10:02 pm TECHNIQUE: CT of the head was performed without the administration of intravenous contrast. Dose modulation, iterative reconstruction, and/or weight based adjustment of the mA/kV was utilized to reduce the radiation dose to as low as reasonably achievable. COMPARISON: 12/12/2019 HISTORY: ORDERING SYSTEM PROVIDED HISTORY: Possible stroke, right facial droop, right-sided weakness, also head contusion on Plavix TECHNOLOGIST PROVIDED HISTORY: Possible stroke, right facial droop, right-sided weakness, also head contusion on Plavix Decision Support Exception - unselect if not a suspected or confirmed emergency medical condition->Emergency Medical Condition ([place]) Reason for Exam: Possible stroke, right facial droop, right-sided weakness, also head contusion on Plavix FINDINGS: There is no acute infarction, intracranial hemorrhage or intracranial mass lesion. No mass effect, midline shift or extra-axial collection is noted. There are mild nonspecific foci of periventricular and subcortical cerebral white matter hypodensity, most likely representing chronic microangiopathic disease in this age group. Chronic lacunar infarction of right pacheco radiata. The brain parenchyma is otherwise normal. The cerebellar tonsils are in normal position. The ventricles, sulci, and cisterns are mildly prominent suggestive of mild generalized volume loss. The globes and orbits are within normal limits. The visualized extracranial structures including paranasal sinuses and mastoid air cells are unremarkable. No fracture is identified. IMPRESSION: No evidence for acute intracranial hemorrhage, territorial infarction or intracranial mass lesion. Chronic lacunar infarction right pacheco radiata. Mild chronic microangiopathic ischemic disease. Mild generalized volume loss. Interpreted by: Bandar Ardon MD Signed by: Bandar Ardon MD 04/24/21 Final result Normal [facility] CTA HEAD NECK W CONTRASTon 0 04-25-2021 CTA HEAD NECK W CONTRAST EXAMINATION: CTA OF THE HEAD AND NECK WITH CONTRAST 04/24/2021 10:03 pm: TECHNIQUE: CTA of the head and neck was performed with the administration of intravenous contrast. Multiplanar reformatted images are provided for review. MIP images are provided for review. Stenosis of the internal carotid arteries measured using NASCET criteria. Dose modulation, iterative reconstruction, and/or weight based adjustment of the mA/kV was utilized to reduce the radiation dose to as low as reasonably achievable. COMPARISON: CT head without contrast April 24, 2021 at 2211 hours. HISTORY: ORDERING SYSTEM PROVIDED HISTORY: Stroke, right facial droop, right-sided weakness TECHNOLOGIST PROVIDED HISTORY: Stroke, right facial droop, right-sided weakness Decision Support Exception - unselect if not a suspected or confirmed emergency medical condition->Emergency Medical Condition (MA) Reason for Exam: stroke Acuity: Unknown Type of Exam: Unknown Additional signs and symptoms: Rt side facial droop,Rt side weakness FINDINGS: CTA NECK: AORTIC ARCH/ARCH VESSELS: No dissection or arterial injury. No significant stenosis of the brachiocephalic or subclavian arteries. CAROTID ARTERIES: Bilateral carotid bifurcation atherosclerotic plaque is seen resulting in approximately 40% left and 20% right stenosis of the proximal bilateral internal carotid arteries. No dissection, arterial injury, or further evidence of hemodynamically significant stenosis by NASCET criteria. VERTEBRAL ARTERIES: Focal high-grade stenosis involving the left vertebral artery V4 segment is noted secondary to encroachment by atherosclerotic calcification. Approximately 50% stenosis involving the right vertebral artery V4 segment is noted secondary to encroachment by atherosclerotic calcification. Left vertebral artery mid cervical segment C5 level approximately 70% stenosis secondary to encroachment by atherosclerotic plaque is seen. No dissection, arterial injury, or further evidence of significant stenosis. SOFT TISSUES: The lung apices are clear. No cervical or superior mediastinal lymphadenopathy. The larynx and pharynx are unremarkable. No acute abnormality of the salivary and thyroid glands. BONES: No acute osseous abnormality. CTA HEAD: ANTERIOR CIRCULATION: Bilateral internal carotid artery cavernous segment scattered atherosclerotic calcification is noted with up to approximately 25% arterial stenosis visualized. No further evidence of significant stenosis of the intracranial internal carotid, anterior cerebral, or middle cerebral arteries. No aneurysm. POSTERIOR CIRCULATION: No significant stenosis of the vertebral, basilar, or posterior cerebral arteries. No aneurysm. OTHER: No dural venous sinus thrombosis on this non-dedicated study. BRAIN: No mass effect or midline shift. No extra-axial fluid collection. The reynaga-white differentiation is maintained. Ill-defined hypoattenuation is noted within cerebral white matter consistent with mild microvascular ischemic disease. Right pacheco radiata remote lacunar infarct is again seen. IMPRESSION: 1. Bilateral carotid bifurcation atherosclerotic plaque resulting approximately 40% left and 20% right stenosis of the proximal internal carotid arteries. Finding is compatible with 16-49% stenosis per sonographic NASCET index criteria. 2. Bilateral internal carotid artery cavernous segment scattered atherosclerotic calcification with up to approximately 25% bilateral arterial stenosis. Finding is compatible with 16-49% stenosis per sonographic NASCET index criteria. 3. Bilateral vertebral artery V4 segment atherosclerotic calcification resulting in focal high-grade stenosis of the left vertebral artery in approximately focal 50% stenosis of the right vertebral artery. 4. Left vertebral artery mid cervical segment approximately 70% stenosis secondary to encroachment by atherosclerotic plaque, as discussed above. RECOMMENDATIONS: For clinical suspicion of acute ischemia, recommend MRI brain with diffusion-weighted imaging for further evaluation Interpreted by: Guero Juárez MD Signed by: Guero Juárez MD 04/24/21 Final result Normal [facility] DRUG SCREEN MULTI URINEOrder ed By: Jarek Osborn on 04-25-2021 Amphetamine Screen, Ur Negative NEGATIVE [employer] Work Phone: Comment on above: (Positive cutoff 1000 ng/mL) Barbiturate Screen, Ur Negative NEGATIVE [facility] Work Phone: Comment on above: (Positive cutoff 200 ng/mL) Benzodiazepine Screen, Urine Negative NEGATIVE [facility] Work Phone: Comment on above: (Positive cutoff 200 ng/mL) Buprenorphine Urine NOT REPORTED NEGATIVE [facility] Work Phone: Cannabinoid Scrn, Ur Negative NEGATIVE [facility] [employer] Work Phone: Comment on above: (Positive cutoff 50 ng/mL) Cocaine Metabolite, Urine Negative NEGATIVE [facility] Phone: Comment on above: (Positive cutoff 300 ng/mL) MDMA, Urine NOT REPORTED NEGATIVE [facility] Phone: Methadone Screen, Urine Negative NEGATIVE [facility] Work Phone: Comment on above: (Positive cutoff 300 ng/mL) Methamphetamine, Urine NOT REPORTED NEGATIVE [facility] Phone: Opiates, Urine Negative NEGATIVE [facility] Phone: Comment on above: (Positive cutoff 300 ng/mL) Oxycodone Screen, Ur Negative NEGATIVE [facility] [employer] Work Phone: Comment on above: (Positive cutoff 100 ng/mL) Phencyclidine, Urine Negative NEGATIVE [employer] Work Phone: Comment on above: (Positive cutoff 25 ng/mL) Propoxyphene, Urine NOT REPORTED NEGATIVE [facility] Work Phone: Test Information Assay provides medic al screening only. The absence of expected drug(s) and/or metabolite(s) may indicate diluted or adulterated urine, limitations of testing or timing of collection. [employer] Phone: Comment on above: Testing for legal pu rposes should be confirmed by another method. To request confirmation of test result, please call the lab within 7 days of sample submission. Tricyclic Antidepressants, Urine NOT REPORTED NEGATIVE [facility] Phone: [facility] Phone: EEG awake and drowsyOrdered By: Sabrina Aguiar on 04-25-2021 Juan Judd MD 04/25/2021 11:13 PM EEG REPORT Patient: Yoel Van Age: 65 y.o. Date: 04/24/2021 Referring Provider: No ref. provider found History: This routine 30 minute scalp EEG was recorded with video- monitoring for a 65 y.o.. male who presented with encephalopathy. This EEG was performed to evaluate for focal and epileptiform abnormalities. Yoel Van Current Facility-Administered Medications Medication Dose Route Frequency Provider Last Rate Last Admin labetalol (NORMODYNE;TRANDATE) injection 20 mg 20 mg Intravenous Q4H PRN Jarek Osborn MD sodium chloride flush 0.9 % injection 5-40 mL 5-40 mL Intravenous 2 times per day Jarek Osborn MD sodium chloride flush 0.9 % injection 5-40 mL 5-40 mL Intravenous PRN Jarek Osborn MD 0.9 % sodium chloride infusion 25 mL Intravenous PRN Jarek Osborn MD ondansetron (ZOFRAN-ODT) disintegrating tablet 4 mg 4 mg Oral Q8H PRN Jarek Osborn MD Or ondansetron (ZOFRAN) injection 4 mg 4 mg Intravenous Q6H PRN Jarek Osborn MD polyethylene glycol (GLYCOLAX) packet 17 g 17 g Oral Daily PRN Jarek Osborn MD acetaminophen (TYLENOL) tablet 650 mg 650 mg Oral Q6H PRN Jarek Osborn MD Or acetaminophen (TYLENOL) suppository 650 mg 650 mg Rectal Q6H PRN aJrek Osborn MD heparin (porcine) injection 4,000 Units 4,000 Units Intravenous PRN Gee Dewey MD 4,000 Units at 04/25/212230 heparin (porcine) injection 2,000 Units 2,000 Units Intravenous PRN Gee Dewey MD heparin 25,000 units in dextrose 5% 250 mL (premix) infusion 5-30 Units/kg/hr Intravenous Continuous Gee Dewey MD 13.9 mL/hr at 04/25/212233 13.783 Units/kg/hr at 04/25/21 2234 atorvastatin (LIPITOR) tablet 40 mg 40 mg Oral Daily Gee Dewey MD gabapentin (NEURONTIN) tablet 600 mg 600 mg Oral BID Gee Dewey MD 600 mg at 04/25/21 222 nitroGLYCERIN (NITROSTAT) SL tablet 0.4 mg 0.4 mg Sublingual Q5 Min PRN Gee Dewey MD traZODone (DESYREL) tablet 200 mg 200 mg Oral Nightly Gee Dewey MD 200 mg at 04/25/21 222 metoprolol tartrate (LOPRESSOR) tablet 25 mg 25 mg Oral BID Gee Dewey MD 25 mg at 04/25/212224 [START ON 04/26/2021] clopidogrel (PLAVIX) tablet 75 mg 75 mg Oral Daily Patience Dewey MD pantoprazole (PROTONIX) tablet 40 mg 40 mg Oral Nightly Gee Parnell MD 40 mg at 04/25/215 Technical Description: This is a 21 channel digital EEG recording with time-locked video. Electrodes were placed in accordance with the 10-20 International System of Electrode Placement. Single lead EKG monitoring as well as temporal electrodes were included. The patient was not sleep deprived. This recording was obtained during wakefulness. EEG Description: The dominant background activity during maximal recorded wakefulness consisted of 4-5 Hz of polymorphic delta and theta activity. There was poor anterior posterior amplitude gradient. The patient is poorly cooperative and there is movement artifact noted through the study Activation procedures were not performed. The EKG channel demonstrated a normal sinus rhythm. Interpretation This EEG was abnormal due to disorganized and slow background in polymorphic delta and theta frequency. Clinical correlation This EEG was abnormal. Disorganized and slow background suggested mild to moderate encephalopathy of non specific etiology. Juan Judd MD Diplomate, [employer] [employer]iatry and Neurology [facility] Phone: [employer] Phone: EKG 12 LeadOrdered By: Rashawn Ruvalcaba on 04-25-2021 Atrial Rate 84 BPM [employer] Phone: P Manc[place] 43 degrees [employer] Phone: P-R Interval 166 ms [employer] Phone: Q-T Interval 380 ms [employer] Phone: QRS Duration 96 ms [facility] Phone: QTc Calculation (Bazett) 449 ms [employer] Phone: R Mancos -8 degrees [employer] Phone: T Manc[place] 99 degrees [facility] Phone: Ventricular Rate 84 BPM [facility] Phone: Normal sinus rhythm Abnormal QRS-T angle, consider primary T wave abnormality Abnormal ECG When compared with ECG of 30-OCT-2019 17:11, No significant change was found [employer] Phone: Adam, Mhpn Incoming E kg Results From [employer] - 04/25/2021 1:23 PM EDT Normal sinus rhythm Abnormal QRS-T angle, consider primary T wave abnormality Abnormal ECG When compared with ECG of 30-OCT-2019 17:11, No significant change was found [facility] Phone: [facility] Phone: HEMOGLOBIN [id number] By: Rolando Epstein on 04-25-2021 Glucose [Mass/Vol] 169 mg/dL [employer] Phone: Comment on above: The ADA and AACC rec ommend providing the estimated average glucose result to permit better patient understanding of their HBA1c result. HbA1c (Bld) [Mass fraction] 7.5 % High 4.0 - 6.0 % [employer] Phone: Interpretation and review of laboratory results Abnormal [facility] Phone: [facility] Phone: Hemoglobin A1Con 04-25-2021 Glucose [Mass/Vol] 169 mg/dL Normal [facility] Comment on above: Result Comment: The ADA and AACC recommend providing the estimated average glucose result to permit better patient understanding of their HBA1c result. Performed By: #### G LYHGB ####[employer] [place], [place] [id number] lab Director: Bowen Lemon MD HbA1c (Bld) [Mass fraction] 7.5 % High 4.0-6.0 [facility] Comment on above: Performed By: #### G LYHGB ####[facility] [address] [place], [place] [id number] lab Director: Bowen Lemon MD Microscopic UrinalysisOrdere d By: Jarek Osborn on 04-25-2021 - [employer] Work Phone: Amorphous, UA NOT REPORTED None [facility] Phone: Bacteria, UA NOT REPORTED None [facility] Phone: Casts UA NOT REPORTED [facility] Phone: Crystals, UA NOT REPORTED None /HPF [facility] Phone: Epithelial Cells UA None [facility] Phone: Mucus, UA NOT REPORTED None [facility] Phone: Other Observations UA NOT REPORTED NOT REQ. [facility] Work Phone: RBC, UA 5 TO 10 [facility] Phone: Comment on above: Reference range defi odette for non-centrifuged specimen. Renal Epithelial, UA NOT REPORTED 0 /HPF [employer] Work Phone: Trichomonas, UA NOT REPORTED None [employer] Phone: WBC, UA None [facility] Phone: Yeast, UA NOT REPORTED None [facility] Phone: [facility] Phone: POC Glucose FingerstickOrder ed By: Callie Murrell on 04-25-2021 Glucose [Mass/Vol] 224 mg/dL High 75 - 110 mg/dL [employer] Phone: Interpretation and review of laboratory results Abnormal [facility] Phone: [facility] Phone: [id number] 04-25-2021 SARS-CoV-2 (COVID-19) RNA PLACIDO+probe Ql (Unsp spec) Not detected Normal NOTDET [facility] Comment on above: Result Comment: Rapid NAAT: The specimen is NEGATIVE for SARS-CoV-2, the novel coronavirus associated with COVID-19. The ID NOW COVID-19 assay is designed to detect the virus that causes COVID-19 in patients with signs and symptoms of infection who are suspected of COVID-19. An individual without symptoms of COVID-19 and who is not shedding SARS-CoV-2 virus would expect to have a negative (not detected) result in this assay. Negative results should be treated as presumptive and, if inconsistent with clinical signs and symptoms or necessary for patient management, should be tested with an alternative molecular assay. Negative results do not preclude SARS-CoV-2 infection and should not be used as the sole basis for patient management decisions. Fact sheet for Healthcare Providers: https://www.fda.gov/media/018792/download Fact sheet for Patients: https://www.fda.gov/media/130706/download Methodology: Isothermal Nucleic Acid Amplification Performed By: #### C OVRB #### [employer] [address] [place] [address] Agitator Operator: Bowen Lemon MD STROKE PANELOrdered By: Tuan Ruvalcaba on 04-25-2021 % CKMB 4.6 % High 0.0 - 3.5 % [facility] Phone: Absolute Eos # 0.07 [facility] Phone: Absolute Immature Granulocyte 0.04 [facility] Phone: Absolute Lymph # 2.89 [facility] Phone: Absolute Graves # 0.72 [facility] Phone: Anion gap [Moles/Vol] 16 mmol/L 9 - 17 mmol/L [facility] Phone: aPTT Coag (Bld) [Time] 23.4 s [employer] Phone: Comment on above: IV Heparin Therapy Range: 48.6-77.8 Basophils (Bld) [#/Vol] 0.05 10*3/uL [facility] Phone: Basophils/100 WBC (Bld) 1 % 0 - 2 % [facility] Phone: Calcium [Mass/Vol] 9.8 mg/dL 8.6 - 10. 4 mg/dL [employer] Phone: Chloride [Moles/Vol] 99 mmol/L 98 - 10 7 mmol/L [facility] Phone: CK [Catalytic activity/Vol] 108 U/L 39 - 308 U/L [facility] Phone: CK.MB [Mass/Vol] 5 ng/mL <10.5 [employer] Phone: CKMB Interpretation NORMAL ISOENZYME PATTERN [facility] Phone: CO2 [Moles/Vol] 19 mmol/L Low 20 - 31 mmol/L [facility] Phone: Creatinine [Mass/Vol] 0.82 mg/dL 0.70 - 1.20 mg/dL [employer] Phone: Differential Type NOT REPORTED [facility] Phone: Eosinophils/100 WBC (Bld) 1 % 1 - 4 % [employer] Phone: GFR >60 >60 mL/min [facility] Phone: GFR Non- >60 >60 mL/min [employer] Phone: GFR/1.73 sq M.predicted MDRD (S/P/Bld) [Vol rate/Area] [employer] Phone: Comment on above: Average GFR for 60-6 9 years old: 85 mL/min/1.73sq m Chronic Kidney Disease: <60 mL/min/1.73sq m Kidney failure: <15 mL/min/1.73sq m eGFR calculated using average adult body mass. Additional eGFR calculator available at: http://www.[employer]/multiple_crcl_2012.htm GFR/1.73 sq M.predicted MDRD (S/P/Bld) [Vol rate/Area] NOT REPORTED [employer] Phone: Glucose [Mass/Vol] 130 mg/dL High 70 - 99 mg/dL [employer] Phone: Hematocrit (Bld) [Volume fraction] 44.0 % 40.7 - 50.3 % [employer] Phone: Hemoglobin.gastrointest inal spec 1 Ql (Stl) 14.5 g/dL 13.0 - 17.0 g/dL [employer] Phone: Immature granulocytes/100 WBC (Bld) 0 % 0 [employer] Phone: INR Coag (Bld) [Relative time] 1.0 {INR} [employer] Phone: Comment on above: Therapeutic Range: Moderate Anticoagulant Intensity: INR = 2.0-3.0 High Anticoagulant Intensity: INR = 2.5-3.5 Interpretation and review of laboratory results Abnormal [facility] Phone: Lymphocytes/100 WBC (Bld) 29 % 24 - 43 % [facility] Phone: MCH (RBC) [Entitic mass] 29.9 pg 25.2 - 33.5 pg [employer] Phone: MCHC (RBC) [Mass/Vol] 33.0 g/dL 28.4 - 34.8 g/dL [facility] Phone: MCV (RBC) [Entitic vol] 90.7 fL 82.6 - 102.9 fL [employer] Phone: Monocytes/100 WBC (Bld) 7 % 3 - 12 % [employer] Phone: Myoglobin [Mass/Vol] 41 ng/mL 28 - 72 ng/mL [employer] Phone: NRBC Automated 0.0 0.0 per 100 WBC [employer] Phone: Platelet distribution width (Bld) [Ratio] 14.0 % 11.8 - 14.4 % [employer] Phone: Platelet Estimate NOT REPORTED [employer] Phone: Platelet mean volume (Bld) [Entitic vol] 11.1 fL 8.1 - 13.5 fL [employer] Phone: Platelets (Bld) [#/Vol] 249 10*3/uL [employer] Phone: Potassium [Moles/Vol] 3.7 mmol/L 3.7 - 5.3 mmol/L [employer] Phone: PT Coag (PPP) [Time] 10.7 s [facility] Phone: RBC (Bld) [#/Vol] 4.85 10*6/uL 4.21 - 5.77 m/uL [employer] Phone: RBC (Bld) [#/Vol] NOT REPORTED [employer] Phone: Segmented neutrophils/100 WBC (Bld) 62 % 36 - 65 % [employer] Phone: Segs Absolute 6.24 [employer] Phone: Sodium [Moles/Vol] 134 mmol/L Low 135 - 144 mmol/L [employer] Phone: Troponin Interp NOT REPORTED [employer] Phone: Troponin T NOT REPORTED <0.03 ng/mL [employer] Phone: Troponin, High Sensitivity 180 ng/L Critically high 0 - 22 ng/L [employer] Phone: Comment on above: High Sensitivity Troponin values cannot be compared with other Troponin methodologies. Patients with high levels of Biotin oral intake (i.e >5mg/day) may have falsely decreased Troponin levels. Samples collected within 8 hours of biotin intake may require additional information for diagnosis. Urea nitrogen (BldV) [Mass/Vol] 18 mg/dL 8 - 23 mg/dL [employer] Phone: Urea nitrogen/Creatinine (Bld) [Mass ratio] NOT REPORTED [employer] Phone: WBC (Bld) [#/Vol] 10.0 10*3/uL [facility] Phone: WBC (Bld) [#/Vol] NOT REPORTED [facility] Phone: [employer] Phone: Sedimentation Rateon 021 Sedimentation Rate 25 mm High 0-20 [facility] Comment on above: Performed By: #### S ED, CRP, STROKE #### [facility] [place] [address] Agitator Operator: Bowen Lemon MD Stroke Panelon 04-25-2021 % CKMB 4.6 % High 0.0-3.5 [facility] Comment on above: Performed By: #### S ED, CRP, STROKE #### [facility] [address] [place] [address] Agitator Operator: Bowen Lemon MD CK-MB,Quantitative 5.0 ng/mL Normal <10.5 [facility] Comment on above: Performed By: #### S ROXANNA CRP, STROKE #### [address] [address] Agitator Operator: Bowen Lemon MD CKMB-Interpretation NORMAL ISOENZYME PATTERN Normal [facility] Comment on above: Performed By: #### S ROXANNA CRP, STROKE #### [address] [address] Agitator Operator: Bowen Lemon MD (cont.) Normal [facility] Comment on above: Result Comment: Aver age GFR for 60-69 years old: 85 mL/min/1.73sq m Chronic Kidney Disease: <60 mL/min/1.73sq m Kidney failure: <15 mL/min/1.73sq m eGFR calculated using average adult body mass. Additional eGFR calculator available at: http://www.[employer]/multiple_crcl_2011.htm Performed By: #### S ED, CRP, STROKE #### [facility] [address] [place] [address] Agitator Operator: Bowen Lemon MD Anion gap [Moles/Vol] 16 mmol/L Normal 9-17 [facility] Comment on above: Performed By: #### S ED, CRP, STROKE #### [facility] [address] [place] [address] Agitator Operator: Bowen Lemon MD Calcium [Mass/Vol] 9.8 mg/dL Normal 8.6-10.4 [facility] Comment on above: Performed By: #### S ED, CRP, STROKE #### [facility] [address] [place] [address] Agitator Operator: Bowen Lemon MD Chloride [Moles/Vol] 99 mmol/L Normal 98-107 [facility] Comment on above: Performed By: #### S ED, CRP, STROKE #### [facility] [address] [place] [address] Agitator Operator: Bowen Lemon MD CK [Catalytic activity/Vol] 108 U/L Normal 39-308 [facility] Comment on above: Performed By: #### S ED, CRP, STROKE #### [facility] [address] [place] [address] Agitator Operator: Bowen Lemon MD CO2 [Moles/Vol] 19 mmol/L Low 20-31 [facility] Comment on above: Performed By: #### S ED, CRP, STROKE #### [facility] [address] [place] [address] Agitator Operator: Bowen Lemon MD Creatinine [Mass/Vol] 0.82 mg/dL Normal 0.70-1.20 [facility] Comment on above: Performed By: #### S ED, CRP, STROKE #### [facility] [address] [place] [address] Agitator Operator: Bowen Lemon MD GFR, Amer >60 Normal >60 [facility] Comment on above: Performed By: #### S ED, CRP, STROKE #### [facility] [address] [place] [address] Agitator Operator: Bowen Lemon MD GFR,non Amer >60 Normal >60 [facility] Comment on above: Performed By: #### S ED, CRP, STROKE #### [facility] [address] [place] [address] Agitator Operator: Bowen Lemon MD Glucose [Mass/Vol] 130 mg/dL High 70-99 [facility] Comment on above: Performed By: #### S ED, CRP, STROKE #### [facility] [address] [place] [address] Agitator Operator: Bowen Lemon MD Potassium [Moles/Vol] 3.7 mmol/L Normal 3.7-5.3 [facility] Comment on above: Performed By: #### S ED, CRP, STROKE #### [facility] [address] [place] [address] Agitator Operator: Bowen Lemon MD Sodium [Moles/Vol] 134 mmol/L Low 135-144 [facility] Comment on above: Performed By: #### S ED, CRP, STROKE #### [facility] [address] [place] [address] Agitator Operator: Bowen Lemon MD Urea nitrogen [Mass/Vol] 18 mg/dL Normal 8-23 [facility] Comment on above: Performed By: #### S ED, CRP, STROKE #### [facility] [address] [place] [address] Agitator Operator: Bowen Lemon MD Myoglobin [Mass/Vol] 41 ng/mL Normal 28-72 [facility] Comment on above: Performed By: #### S ED, CRP, STROKE #### [facility] [address] [place] [id number] Agitator Operator: Bowen Lemon MD Troponin, High Sens 180 ng/L Critically high 0-22 [facility] Comment on above: Result Comment: High Sensitivity Troponin values cannot be compared with other Troponin methodologies. Patients with high levels of Biotin oral intake (i.e >5mg/day) may have falsely decreased Troponin levels. Samples collected within 8 hours of biotin intake may require additional information for diagnosis. Performed By: #### S ED, CRP, STROKE #### [facility] [address] [place] [address] Agitator Operator: Bowen Lemon MD INR Coag (PPP) [Relative time] 1.0 {INR} Normal [facility] Comment on above: Result Comment: Therapeutic Range: Moderate Anticoagulant Intensity: INR = 2.0-3.0 High Anticoagulant Intensity: INR = 2.5-3.5 Performed By: #### S ED, CRP, STROKE #### [address] [address] Agitator Operator: Bowen Lemon MD PT Coag (PPP) [Time] 10.7 s Normal 9.1-12.3 [facility] Comment on above: Performed By: #### S ED, CRP, STROKE #### [address] [address] Agitator Operator: Bowen Lemon MD aPTT Coag (Bld) [Time] 23.4 s Normal 20.5-30.5 [facility] Comment on above: Result Comment: IV Heparin Therapy Range: 48.6-77.8 Performed By: #### S ED, CRP, STROKE #### [address] [address] Agitator Operator: Bowen Lemon MD Abs. Basophil 0.05 k/uL Normal 0.00-0.20 [facility] Comment on above: Performed By: #### S ED, CRP, STROKE #### [address] [address] Agitator Operator: Bowen Lemon MD Abs.Imm.Granulocyte 0.04 k/uL Normal 0.00-0.30 [facility] Comment on above: Performed By: #### S ED, CRP, STROKE #### [address] [address] Agitator Operator: Bowen Lemon MD Abs.Neutrophil (Seg) 6.24 k/uL Normal 1.50-8.10 [facility] Comment on above: Performed By: #### S ED, CRP, STROKE #### [address] [address] Agitator Operator: Bowen Lemon MD Basophils/100 WBC (Bld) 1 % Normal 0-2 [facility] Comment on above: Performed By: #### S ED, CRP, STROKE #### [address] [address] Agitator Operator: Bowen Lemon MD Eosinophils (Bld) [#/Vol] 0.07 10*3/uL Normal 0.00-0.44 [facility] Comment on above: Performed By: #### S ED, CRP, STROKE #### [address] [address] Agitator Operator: Bowen Lemon MD Eosinophils/100 WBC (Bld) 1 % Normal 1-4 [facility] Comment on above: Performed By: #### S ED, CRP, STROKE #### [address] [address] Agitator Operator: Bowen Lemon MD Erythrocyte distribution width (RBC) [Ratio] 14.0 % Normal 11.8-14.4 [facility] Comment on above: Performed By: #### S ED, CRP, STROKE #### [address] [address] Agitator Operator: Bowen Lemon MD Hematocrit (Bld) [Volume fraction] 44.0 % Normal 40.7-50.3 [facility] Comment on above: Performed By: #### S ED, CRP, STROKE #### [facility] [address] [place] [address] Agitator Operator: Bowen Lemon MD Hemoglobin (Bld) [Mass/Vol] 14.5 g/dL Normal 13.0-17.0 [facility] Comment on above: Performed By: #### S ED, CRP, STROKE #### [address] [address] Agitator Operator: Bowen Lemon MD Immature granulocytes/100 WBC (Bld) 0 % Normal 0 [facility] Comment on above: Performed By: #### S ED, CRP, STROKE #### [address] [address] Agitator Operator: Bowen Lemon MD Lymphocytes (Bld) [#/Vol] 2.89 10*3/uL Normal 1.10-3.70 [facility] Comment on above: Performed By: #### S ED, CRP, STROKE #### [address] [address] Agitator Operator: Bowen Lemon MD Lymphocytes/100 WBC (Bld) 29 % Normal 24-43 [facility] Comment on above: Performed By: #### S ED, CRP, STROKE #### [address] [address] Agitator Operator: Bowen Lemon MD MCH (RBC) [Entitic mass] 29.9 pg Normal 25.2-33.5 [facility] Comment on above: Performed By: #### S ED, CRP, STROKE #### [address] [address] Agitator Operator: Bowen Lemon MD MCHC (RBC) [Mass/Vol] 33.0 g/dL Normal 28.4-34.8 [facility] Comment on above: Performed By: #### S ED, CRP, STROKE #### [address] [address] Agitator Operator: Bowen Lemon MD MCV (RBC) [Entitic vol] 90.7 fL Normal 82.6-102.9 [facility] Comment on above: Performed By: #### S ED, CRP, STROKE #### [address] [address] Agitator Operator: Bowen Lemon MD Monocytes (Bld) [#/Vol] 0.72 10*3/uL Normal 0.10-1.20 [facility] Comment on above: Performed By: #### S ED, CRP, STROKE #### [address] [address] Agitator Operator: Bowen Lemon MD Monocytes/100 WBC (Bld) 7 % Normal 3-12 [facility] Comment on above: Performed By: #### S ED, CRP, STROKE #### [address] [address] Agitator Operator: Bowen Lemon MD Neutrophil (Seg) 62 % Normal 36-65 [facility] Comment on above: Performed By: #### S ED, CRP, STROKE #### [address] [address] Agitator Operator: Bowen Lemon MD NRBC Automated 0.0 per 100 WBC Normal 0.0 [facility] Comment on above: Performed By: #### S ED, CRP, STROKE #### [address] [address] Agitator Operator: Bowen Lemon MD Platelet mean volume (Bld) [Entitic vol] 11.1 fL Normal 8.1-13.5 [facility] Comment on above: Performed By: #### S ED, CRP, STROKE #### [address] [address] Agitator Operator: Bowen Lemon MD Platelets (Bld) [#/Vol] 249 10*3/uL Normal 138-453 [facility] Comment on above: Performed By: #### S ED, CRP, STROKE #### [address] [address] Agitator Operator: Bowen Lemon MD RBC (Bld) [#/Vol] 4.85 10*6/uL Normal 4.21-5.77 [facility] Comment on above: Performed By: #### S ED, CRP, STROKE #### [address] [address] Agitator Operator: Bowen Lemon MD WBC (Bld) [#/Vol] 10.0 10*3/uL Normal 3.5-11.3 [facility] Comment on above: Performed By: #### S ED, CRP, STROKE #### [address] [address] Agitator Operator: Bowen Lemon MD Auto Diff Performed NOT REPORTED Normal [facility] Comment on above: Performed By: #### S ED, CRP, STROKE #### [address] [address] Agitator Operator: Bowen Lemon MD BUN/CRE Ratio NOT REPORTED Normal 9-20 [facility] Comment on above: Performed By: #### S ED, CRP, STROKE #### [address] [address] Agitator Operator: Bowen Lemon MD Platelet Estimate NOT REPORTED Normal [facility] Comment on above: Performed By: #### S ED, CRP, STROKE #### [facility] [address] [place] [address] Agitator Operator: Bowen Lemon MD RBC morphology finding Nom (Bld) NOT REPORTED Normal [facility] Comment on above: Performed By: #### S ED, CRP, STROKE #### [facility] [address] [place] [address] Agitator Operator: Bowen Lemon MD Staging: NOT REPORTED Normal [facility] Comment on above: Performed By: #### S ED, CRP, STROKE #### [facility] [address] [place] [address] Agitator Operator: Bowen Lemon MD Troponin Interp. NOT REPORTED Normal [facility] Comment on above: Performed By: #### S ED, CRP, STROKE #### [facility] [address] [place] [address] Agitator Operator: Bowen Lemon MD Troponin T NOT REPORTED Normal <0.03 [facility] Comment on above: Performed By: #### S ED, CRP, STROKE #### [facility] [address] [place] [address] Agitator Operator: Bowen Lemon MD WBC Morphology NOT REPORTED Normal [facility] Comment on above: Performed By: #### S ED, CRP, STROKE #### [employer] [address] [place] [address] Agitator Operator: Bowen Lemon MD TSH w/reflex to FT4on 2020 TSH Qn 1.04 m[IU]/L Normal 0.30-5.00 [facility] Comment on above: Performed By: #### T SHX TROPI ####[id number] [place] [address] Lab Director: Bowen Lemon MD TSH with ReflexOrdered By: Milton Osborn on 04-25-2021 TSH Qn 1.04 m[IU]/L [facility] Phone: [facility] Phone: Troponinon 04-25-2021 Troponin, High Sens 187 ng/L Critically high 0-22 [facility] Comment on above: Result Comment: High Sensitivity Troponin values cannot be compared with other Troponin methodologies. Patients with high levels of Biotin oral intake (i.e >5mg/day) may have falsely decreased Troponin levels. Samples collected within 8 hours of biotin intake may require additional information for diagnosis. Previous Alert Value Reported Performed By: #### T JENNYFERX, TROPI ####[employer] [id number] [place] [address] Lab Director: Bowen Lemon MD Troponin Interp. NOT REPORTED Normal [facility] Comment on above: Performed By: #### T SHX, TROPI ####[facility] [id number] [place] [address] Lab Director: Bowen Lemon MD Troponin T NOT REPORTED Normal <0.03 [facility] Comment on above: Performed By: #### T SHX, TROPI ####[facility] [id number] [place] [address] Lab Director: Bowen Lemon MD Troponin, High Sens 175 ng/L Critically high 0-22 [facility] Comment on above: Result Comment: High Sensitivity Troponin values cannot be compared with other Troponin methodologies. Patients with high levels of Biotin oral intake (i.e >5mg/day) may have falsely decreased Troponin levels. Samples collected within 8 hours of biotin intake may require additional information for diagnosis. Performed By: #### T ROPI #### [facility] [address] [place] [address] Agitator Operator: Bowen Lemon MD Troponin Interp. NOT REPORTED Normal [facility] Comment on above: Performed By: #### T ROPI #### [facility] [address] [place] [address] Agitator Operator: Bowen Lemon MD Troponin T NOT REPORTED Normal <0.03 [facility] Comment on above: Performed By: #### T ROPI #### [facility] [address] [place] [address] Agitator Operator: Bowen Lemon MD TroponinOrdered By: Jarek mar on 04-25-2021 Interpretation and review of laboratory results Abnormal [facility] Phone: Troponin Interp NOT REPORTED [facility] Phone: Troponin T NOT REPORTED <0.03 ng/mL [facility] Phone: Troponin, High Sensitivity 187 ng/L Critically high 0 - 22 ng/L [facility] Phone: Comment on above: High Sensitivity Troponin values cannot be compared with other Troponin methodologies. Patients with high levels of Biotin oral intake (i.e >5mg/day) may have falsely decreased Troponin levels. Samples collected within 8 hours of biotin intake may require additional information for diagnosis. Previous Alert Value Reported [facility] Phone: TroponinOrdered By: Anali orellana on 04-25-2021 Interpretation and review of laboratory results Abnormal [facility] Phone: Troponin Interp NOT REPORTED [facility] Phone: Troponin T NOT REPORTED <0.03 ng/mL [facility] Phone: Troponin, High Sensitivity 175 ng/L Critically high 0 - 22 ng/L [facility] Phone: Comment on above: High Sensitivity Troponin values cannot be compared with other Troponin methodologies. Patients with high levels of Biotin oral intake (i.e >5mg/day) may have falsely decreased Troponin levels. Samples collected within 8 hours of biotin intake may require additional information for diagnosis. [facility] Phone: Urinalysis Reflex to Culture Ordered By: Jarek Osborn on 04-25-2021 Bilirubin Urine Negative NEGATIVE [facility] Phone: Color, UA YELLOW YELLOW [facility] Phone: Glucose, Ur 1+ Abnormal NEGATIVE [facility] Phone: Interpretation and review of laboratory results Abnormal [facility] Phone: Ketones Ql (U) TRACE Abnormal NEGATIVE [facility] Phone: Leukocyte esterase Test strip Ql (U) Negative NEGATIVE [facility] Phone: Nitrite, Urine Negative NEGATIVE [employer] Work Phone: pH, UA 7.0 [facility] Phone: Protein, UA 2+ Abnormal NEGATIVE [facility] Work Phone: Specific [place], UA 1.012 [employer] Work Phone: Turbidity UA CLEAR CLEAR [facility] Work Phone: Urinalysis Comments NOT REPORTED [facility] [employer] Work Phone: Urine Hgb TRACE Abnormal NEGATIVE [facility] Phone: Urobilinogen, Urine Normal Normal [facility] Work Phone: [facility] Phone: VITAMIN B12 & FOLATEOrdered By: Sabrina Aguiar on 04-25-2021 Folate 15.2 ng/mL >4.8 [facility] Phone: [employer] Work Phone: XR CHEST PORTABLEon 04-25-20 XR CHEST PORTABLE EXAMINATION: ONE XRAY VIEW OF THE CHEST 04/24/2021 3:59 pm COMPARISON: None. HISTORY: ORDERING SYSTEM PROVIDED HISTORY: stroke TECHNOLOGIST PROVIDED HISTORY: stroke Reason for Exam: fall, altered mental status supine port FINDINGS: Marginal inspiration is present. No focal area of consolidation or pneumothorax is noted. Heart size appears normal full level of inspiration. Fullness of the mediastinum is noted, exaggerated by the poor inspiratory effort and vascular ectasia. Osseous structures appear intact. IMPRESSION: Marginal inspiration, without evidence of acute cardiopulmonary disease Interpreted by: Marino Abdi DO Signed by: Marino Abdi DO 04/24/21 Final result Normal [facility] XR SHOULDER LEFT (MIN 2 VIEW S)on 04-25-2021 XR SHOULDER LEFT (MIN 2 VIEWS) EXAMINATION: TWO XRAY VIEWS OF THE LEFT SHOULDER 04/24/2021 4:56 pm COMPARISON: None. HISTORY: ORDERING SYSTEM PROVIDED HISTORY: pain after fall TECHNOLOGIST PROVIDED HISTORY: pain after fall Reason for Exam: fall left shoulder pain FINDINGS: Normal articulation is present at the glenohumeral joint. No evidence of an acute fracture or traumatic malalignment is present. AC joint, and glenohumeral joint degenerative changes are present. Clavicle is intact. Visualized left ribs appear normal. IMPRESSION: No evidence of an acute fracture involving the left shoulder Interpreted by: Marino Abdi DO Signed by: Marino Abdi DO 04/24/21 Final result Normal [facility] CALCIUM, IONIC (POC)Ordered By: Kranthi Ruvalcaba on 04-24-2021 POC Ionized Calcium 1.30 mmol/L 1.15 - 1.33 mmol/L [facility] Phone: CT CERVICAL SPINE WO CONTRAS TOrdered By: Kranthi Ruvalcaba on 04-24-2021 1. No acute abnormal ity of the cervical spine. 2. C5/C6 moderate, C6/C7 mild central canal stenosis secondary to encroachment by disc osteophyte complex. 3. C3/C4 mild bilateral, C5/C6 moderate bilateral, C6/C7 severe left and moderate right neural foraminal stenosis secondary to encroachment by disc osteophyte complex. [facility] Phone: EXAMINATION: CT OF T HE CERVICAL SPINE WITHOUT CONTRAST 04/24/2021 10:03 pm TECHNIQUE: CT of the cervical spine was performed without the administration of intravenous contrast. Multiplanar reformatted images are provided for review. Dose modulation, iterative reconstruction, and/or weight based adjustment of the mA/kV was utilized to reduce the radiation dose to as low as reasonably achievable. COMPARISON: None. HISTORY: ORDERING SYSTEM PROVIDED HISTORY: Fall, head contusion, neck tenderness TECHNOLOGIST PROVIDED HISTORY: Fall, head contusion, neck tenderness Decision Support Exception - unselect if not a suspected or confirmed emergency medical condition->Emergency Medical Condition ([place]) Reason for Exam: Fall, head contusion, neck tenderness FINDINGS: BONES/ALIGNMENT: There is no acute fracture or traumatic malalignment. DEGENERATIVE CHANGES: C5/C6: Moderate disc height loss is noted at this level in association with posterior disc osteophyte complex which indents the ventral thecal sac narrowing the midline AP thecal sac diameter to 8 mm consistent with moderate central canal stenosis. Disc osteophyte complex encroaches upon and causes moderate bilateral neural foraminal stenosis. C6/C7: Moderate disc height loss is noted at this level in association with posterior disc osteophyte complex which indents the ventral thecal sac narrowing the midline AP thecal sac diameter to 9 mm consistent with mild central canal stenosis. Disc osteophyte complex encroaches upon and causes severe left and moderate right neural foraminal stenosis. Otherwise, multilevel mild spondylosis is present within the cervical spine without further evidence of significant central canal stenosis/compromise identified. Multilevel [id number]-ugfplmci facet degenerative hypertrophy is seen. C3/C4 mild bilateral neural foraminal stenosis secondary to encroachment by disc osteophyte complex is seen. SOFT TISSUES: There is no prevertebral soft tissue swelling. [employer] Work Phone: Adam, Mhpn Incoming R adiant Results From [facility] - 04/24/2021 11:44 PM EDT EXAMINATION: CT OF THE CERVICAL SPINE WITHOUT CONTRAST 04/24/2021 10:03 pm TECHNIQUE: CT of the cervical spine was performed without the administration of intravenous contrast. Multiplanar reformatted images are provided for review. Dose modulation, iterative reconstruction, and/or weight based adjustment of the mA/kV was utilized to reduce the radiation dose to as low as reasonably achievable. COMPARISON: None. HISTORY: ORDERING SYSTEM PROVIDED HISTORY: Fall, head contusion, neck tenderness TECHNOLOGIST PROVIDED HISTORY: Fall, head contusion, neck tenderness Decision Support Exception - unselect if not a suspected or confirmed emergency medical condition->Emergency Medical Condition ([place]) Reason for Exam: Fall, head contusion, neck tenderness FINDINGS: BONES/ALIGNMENT: There is no acute fracture or traumatic malalignment. DEGENERATIVE CHANGES: C5/C6: Moderate disc height loss is noted at this level in association with posterior disc osteophyte complex which indents the ventral thecal sac narrowing the midline AP thecal sac diameter to 8 mm consistent with moderate central canal stenosis. Disc osteophyte complex encroaches upon and causes moderate bilateral neural foraminal stenosis. C6/C7: Moderate disc height loss is noted at this level in association with posterior disc osteophyte complex which indents the ventral thecal sac narrowing the midline AP thecal sac diameter to 9 mm consistent with mild central canal stenosis. Disc osteophyte complex encroaches upon and causes severe left and moderate right neural foraminal stenosis. Otherwise, multilevel mild spondylosis is present within the cervical spine without further evidence of significant central canal stenosis/compromise identified. Multilevel [id number] facet degenerative hypertrophy is seen. C3/C4 mild bilateral neural foraminal stenosis secondary to encroachment by disc osteophyte complex is seen. SOFT TISSUES: There is no prevertebral soft tissue swelling. IMPRESSION: 1. No acute abnormality of the cervical spine. 2. C5/C6 moderate, C6/C7 mild central canal stenosis secondary to encroachment by disc osteophyte complex. 3. C3/C4 mild bilateral, C5/C6 moderate bilateral, C6/C7 severe left and moderate right neural foraminal stenosis secondary to encroachment by disc osteophyte complex. [facility] Phone: [facility] Phone: CT HEAD WO CONTRASTOrdered B y: Kranthi Ruvalcaba on 04-24-2021 No evidence for acut e intracranial hemorrhage, territorial infarction or intracranial mass lesion. Chronic lacunar infarction right pacheco radiata. Mild chronic microangiopathic ischemic disease. Mild generalized volume loss. [facility] Phone: EXAMINATION: CT OF T HE HEAD WITHOUT CONTRAST 04/24/2021 10:02 pm TECHNIQUE: CT of the head was performed without the administration of intravenous contrast. Dose modulation, iterative reconstruction, and/or weight based adjustment of the mA/kV was utilized to reduce the radiation dose to as low as reasonably achievable. COMPARISON: 12/12/2019 HISTORY: ORDERING SYSTEM PROVIDED HISTORY: Possible stroke, right facial droop, right-sided weakness, also head contusion on Plavix TECHNOLOGIST PROVIDED HISTORY: Possible stroke, right facial droop, right-sided weakness, also head contusion on Plavix Decision Support Exception - unselect if not a suspected or confirmed emergency medical condition->Emergency Medical Condition ([place]) Reason for Exam: Possible stroke, right facial droop, right-sided weakness, also head contusion on Plavix FINDINGS: There is no acute infarction, intracranial hemorrhage or intracranial mass lesion. No mass effect, midline shift or extra-axial collection is noted. There are mild nonspecific foci of periventricular and subcortical cerebral white matter hypodensity, most likely representing chronic microangiopathic disease in this age group. Chronic lacunar infarction of right pacheco radiata. The brain parenchyma is otherwise normal. The cerebellar tonsils are in normal position. The ventricles, sulci, and cisterns are mildly prominent suggestive of mild generalized volume loss. The globes and orbits are within normal limits. The visualized extracranial structures including paranasal sinuses and mastoid air cells are unremarkable. No fracture is identified. [facility] Phone: Adam, pn Incoming R adiant Results From [facility] - 04/24/2021 10:25 PM EDT EXAMINATION: CT OF THE HEAD WITHOUT CONTRAST 04/24/2021 10:02 pm TECHNIQUE: CT of the head was performed without the administration of intravenous contrast. Dose modulation, iterative reconstruction, and/or weight based adjustment of the mA/kV was utilized to reduce the radiation dose to as low as reasonably achievable. COMPARISON: 12/12/2019 HISTORY: ORDERING SYSTEM PROVIDED HISTORY: Possible stroke, right facial droop, right-sided weakness, also head contusion on Plavix TECHNOLOGIST PROVIDED HISTORY: Possible stroke, right facial droop, right-sided weakness, also head contusion on Plavix Decision Support Exception - unselect if not a suspected or confirmed emergency medical condition->Emergency Medical Condition ([place]) Reason for Exam: Possible stroke, right facial droop, right-sided weakness, also head contusion on Plavix FINDINGS: There is no acute infarction, intracranial hemorrhage or intracranial mass lesion. No mass effect, midline shift or extra-axial collection is noted. There are mild nonspecific foci of periventricular and subcortical cerebral white matter hypodensity, most likely representing chronic microangiopathic disease in this age group. Chronic lacunar infarction of right pacheco radiata. The brain parenchyma is otherwise normal. The cerebellar tonsils are in normal position. The ventricles, sulci, and cisterns are mildly prominent suggestive of mild generalized volume loss. The globes and orbits are within normal limits. The visualized extracranial structures including paranasal sinuses and mastoid air cells are unremarkable. No fracture is identified. IMPRESSION: No evidence for acute intracranial hemorrhage, territorial infarction or intracranial mass lesion. Chronic lacunar infarction right pacheco radiata. Mild chronic microangiopathic ischemic disease. Mild generalized volume loss. [facility] Phone: [facility] Phone: CTA HEAD NECK W CONTRASTOrde red By: Kranthi Ruvalcaba on 04-24-2021 1. Bilateral carotid bifurcation atherosclerotic plaque resulting approximately 40% left and 20% right stenosis of the proximal internal carotid arteries. Finding is compatible with 16-49% stenosis per sonographic NASCET index criteria. 2. Bilateral internal carotid artery cavernous segment scattered atherosclerotic calcification with up to approximately 25% bilateral arterial stenosis. Finding is compatible with 16-49% stenosis per sonographic NASCET index criteria. 3. Bilateral vertebral artery V4 segment atherosclerotic calcification resulting in focal high-grade stenosis of the left vertebral artery in approximately focal 50% stenosis of the right vertebral artery. 4. Left vertebral artery mid cervical segment approximately 70% stenosis secondary to encroachment by atherosclerotic plaque, as discussed above. RECOMMENDATIONS: For clinical suspicion of acute ischemia, recommend MRI brain with diffusion-weighted imaging for further evaluation [facility] Phone: EXAMINATION: CTA OF THE HEAD AND NECK WITH CONTRAST 04/24/2021 10:03 pm: TECHNIQUE: CTA of the head and neck was performed with the administration of intravenous contrast. Multiplanar reformatted images are provided for review. MIP images are provided for review. Stenosis of the internal carotid arteries measured using NASCET criteria. Dose modulation, iterative reconstruction, and/or weight based adjustment of the mA/kV was utilized to reduce the radiation dose to as low as reasonably achievable. COMPARISON: CT head without contrast April 24, 2021 at 2211 hours. HISTORY: ORDERING SYSTEM PROVIDED HISTORY: Stroke, right facial droop, right-sided weakness TECHNOLOGIST PROVIDED HISTORY: Stroke, right facial droop, right-sided weakness Decision Support Exception - unselect if not a suspected or confirmed emergency medical condition->Emergency Medical Condition ([place]) Reason for Exam: stroke Acuity: Unknown Type of Exam: Unknown Additional signs and symptoms: Rt side facial droop,Rt side weakness FINDINGS: CTA NECK: AORTIC ARCH/ARCH VESSELS: No dissection or arterial injury. No significant stenosis of the brachiocephalic or subclavian arteries. CAROTID ARTERIES: Bilateral carotid bifurcation atherosclerotic plaque is seen resulting in approximately 40% left and 20% right stenosis of the proximal bilateral internal carotid arteries. No dissection, arterial injury, or further evidence of hemodynamically significant stenosis by NASCET criteria. VERTEBRAL ARTERIES: Focal high-grade stenosis involving the left vertebral artery V4 segment is noted secondary to encroachment by atherosclerotic calcification. Approximately 50% stenosis involving the right vertebral artery V4 segment is noted secondary to encroachment by atherosclerotic calcification. Left vertebral artery mid cervical segment C5 level approximately 70% stenosis secondary to encroachment by atherosclerotic plaque is seen. No dissection, arterial injury, or further evidence of significant stenosis. SOFT TISSUES: The lung apices are clear. No cervical or superior mediastinal lymphadenopathy. The larynx and pharynx are unremarkable. No acute abnormality of the salivary and thyroid glands. BONES: No acute osseous abnormality. CTA HEAD: ANTERIOR CIRCULATION: Bilateral internal carotid artery cavernous segment scattered atherosclerotic calcification is noted with up to approximately 25% arterial stenosis visualized. No further evidence of significant stenosis of the intracranial internal carotid, anterior cerebral, or middle cerebral arteries. No aneurysm. POSTERIOR CIRCULATION: No significant stenosis of the vertebral, basilar, or posterior cerebral arteries. No aneurysm. OTHER: No dural venous sinus thrombosis on this non-dedicated study. BRAIN: No mass effect or midline shift. No extra-axial fluid collection. The reynaga-white differentiation is maintained. Ill-defined hypoattenuation is noted within cerebral white matter consistent with mild microvascular ischemic disease. Right pacheco radiata remote lacunar infarct is again seen. [employer] Work Phone: Adam, pn Incoming R adiant Results From [facility] - 04/24/2021 10:51 PM EDT EXAMINATION: CTA OF THE HEAD AND NECK WITH CONTRAST 04/24/2021 10:03 pm: TECHNIQUE: CTA of the head and neck was performed with the administration of intravenous contrast. Multiplanar reformatted images are provided for review. MIP images are provided for review. Stenosis of the internal carotid arteries measured using NASCET criteria. Dose modulation, iterative reconstruction, and/or weight based adjustment of the mA/kV was utilized to reduce the radiation dose to as low as reasonably achievable. COMPARISON: CT head without contrast April 24, 2021 at 2211 hours. HISTORY: ORDERING SYSTEM PROVIDED HISTORY: Stroke, right facial droop, right-sided weakness TECHNOLOGIST PROVIDED HISTORY: Stroke, right facial droop, right-sided weakness Decision Support Exception - unselect if not a suspected or confirmed emergency medical condition->Emergency Medical Condition (MA) Reason for Exam: stroke Acuity: Unknown Type of Exam: Unknown Additional signs and symptoms: Rt side facial droop,Rt side weakness FINDINGS: CTA NECK: AORTIC ARCH/ARCH VESSELS: No dissection or arterial injury. No significant stenosis of the brachiocephalic or subclavian arteries. CAROTID ARTERIES: Bilateral carotid bifurcation atherosclerotic plaque is seen resulting in approximately 40% left and 20% right stenosis of the proximal bilateral internal carotid arteries. No dissection, arterial injury, or further evidence of hemodynamically significant stenosis by NASCET criteria. VERTEBRAL ARTERIES: Focal high-grade stenosis involving the left vertebral artery V4 segment is noted secondary to encroachment by atherosclerotic calcification. Approximately 50% stenosis involving the right vertebral artery V4 segment is noted secondary to encroachment by atherosclerotic calcification. Left vertebral artery mid cervical segment C5 level approximately 70% stenosis secondary to encroachment by atherosclerotic plaque is seen. No dissection, arterial injury, or further evidence of significant stenosis. SOFT TISSUES: The lung apices are clear. No cervical or superior mediastinal lymphadenopathy. The larynx and pharynx are unremarkable. No acute abnormality of the salivary and thyroid glands. BONES: No acute osseous abnormality. CTA HEAD: ANTERIOR CIRCULATION: Bilateral internal carotid artery cavernous segment scattered atherosclerotic calcification is noted with up to approximately 25% arterial stenosis visualized. No further evidence of significant stenosis of the intracranial internal carotid, anterior cerebral, or middle cerebral arteries. No aneurysm. POSTERIOR CIRCULATION: No significant stenosis of the vertebral, basilar, or posterior cerebral arteries. No aneurysm. OTHER: No dural venous sinus thrombosis on this non-dedicated study. BRAIN: No mass effect or midline shift. No extra-axial fluid collection. The reynaga-white differentiation is maintained. Ill-defined hypoattenuation is noted within cerebral white matter consistent with mild microvascular ischemic disease. Right pacheco radiata remote lacunar infarct is again seen. IMPRESSION: 1. Bilateral carotid bifurcation atherosclerotic plaque resulting approximately 40% left and 20% right stenosis of the proximal internal carotid arteries. Finding is compatible with 16-49% stenosis per sonographic NASCET index criteria. 2. Bilateral internal carotid artery cavernous segment scattered atherosclerotic calcification with up to approximately 25% bilateral arterial stenosis. Finding is compatible with 16-49% stenosis per sonographic NASCET index criteria. 3. Bilateral vertebral artery V4 segment atherosclerotic calcification resulting in focal high-grade stenosis of the left vertebral artery in approximately focal 50% stenosis of the right vertebral artery. 4. Left vertebral artery mid cervical segment approximately 70% stenosis secondary to encroachment by atherosclerotic plaque, as discussed above. RECOMMENDATIONS: For clinical suspicion of acute ischemia, recommend MRI brain with diffusion-weighted imaging for further evaluation [facility] Phone: [facility] Phone: Creatinine W/GFR Point of Ca reOrdered By: Kranthi Ruvalcaba on 04-24-2021 Creatinine [Mass/Vol] 0.78 mg/dL 0.51 - 1.19 mg/dL [employer] Phone: GFR Non- >60 >60 mL/min [employer] Phone: GFR/1.73 sq M.predicted MDRD (S/P/Bld) [Vol rate/Area] mL/min/{1.73_m2} >60 mL/min [facility] Phone: GFR/1.73 sq M.predicted MDRD (S/P/Bld) [Vol rate/Area] [facility] Phone: Comment on above: Average GFR for 60-6 9 years old: 85 mL/min/1.73sq m Chronic Kidney Disease: <60 mL/min/1.73sq m Kidney failure: <15 mL/min/1.73sq m eGFR calculated using average adult body mass. Additional eGFR calculator available at: http://www.[employer]/multiple_crcl_2012.htm ELECTROLYTES PLUSOrdered By: Kranthi Ruvalcaba on 04-24-2021 Anion gap [Moles/Vol] 10 mmol/L 7 - 16 mmol/L [facility] Phone: Chloride [Moles/Vol] 103 mmol/L 98 - 10 7 mmol/L [facility] Phone: CO2 [Moles/Vol] 26 mmol/L 22 - 30 mmol/L [employer] Phone: Potassium [Moles/Vol] 3.5 mmol/L 3.5 - 4.5 mmol/L [facility] Phone: Sodium [Moles/Vol] 138 mmol/L 138 - 146 mmol/L [employer] Phone: Hemoglobin and hematocrit, b loodOrdered By: Kranthi Ruvalcaba on 04-24-2021 Hematocrit (Bld) [Volume fraction] 46 % 41 - 53 % [facility] Phone: Hemoglobin (Bld) [Mass/Vol] 15.5 g/dL 13.5 - 17.5 g/dL [facility] Phone: Lactic Acid, POCOrdered By: Kranthi Ruvalcaba on 04-24-2021 POC Lactic Acid 2.14 mmol/L High 0.56 - 1.39 mmol/L [facility] Phone: No Panel InformationOrdered By: Kranthi Ruvalcaba on 04-24-2021 Interpretation and review of laboratory results Abnormal [facility] Phone: [facility] Phone: POCT GlucoseOrdered By: Tuan Ruvalcaba on 04-24-2021 Glucose [Mass/Vol] 140 mg/dL High 74 - 100 mg/dL [facility] Phone: POCT urea (BUN)Ordered By: Kamari Ruvalcaba on 04-24-2021 Urea nitrogen [Mass/Vol] 17 mg/dL 8 - 26 mg/dL [facility] Phone: Sedimentation RateOrdered By : Kranthi Ruvalcaba on 04-24-2021 Interpretation and review of laboratory results Abnormal [facility] Phone: Sed Rate 25 mm High 0 - 20 mm [facility] Phone: [facility] Phone: Venous Blood Gas, POCOrdered By: Kranthi Ruvalcaba on 04-24-2021 Irving Test NOT REPORTED [facility] Phone: FIO2 NOT REPORTED [facility] Phone: HCO3 (Bld) [Moles/Vol] 25.1 mmol/L 22.0 - 29.0 mmol/L [facility] Phone: Mode NOT REPORTED [facility] Phone: Negative Base Excess, Marquis NOT REPORTED [facility] Phone: O2 Device/Flow/% NOT REPORTED [facility] Phone: Oxygen saturation in Blood 81 % 60.0 - 85.0 % [facility] Phone: pCO2, Marquis 41.0 [facility] Phone: pH, Marquis 7.396 [facility] Phone: pO2, Marquis 45.1 [facility] Phone: POC pCO2 Temp NOT REPORTED mm Hg [facility] Phone: POC pH Temp NOT REPORTED [facility] Phone: POC pO2 Temp NOT REPORTED mm Hg [facility] Phone: Positive Base Excess, Marquis 0 [facility] Phone: Pt Temp NOT REPORTED [facility] Phone: Sample Site NOT REPORTED [facility] Phone: Total CO2, Venous NOT REPORTED 23.0 - 30.0 mmol/L [facility] Phone: XR CHEST PORTABLEOrdered By: Kranthi Ruvalcaba on 04-24-2021 Marginal inspiration , without evidence of acute cardiopulmonary disease [facility] Phone: EXAMINATION: ONE XRA Y VIEW OF THE CHEST 04/24/2021 3:59 pm COMPARISON: None. HISTORY: ORDERING SYSTEM PROVIDED HISTORY: stroke TECHNOLOGIST PROVIDED HISTORY: stroke Reason for Exam: fall, altered mental status supine port FINDINGS: Marginal inspiration is present. No focal area of consolidation or pneumothorax is noted. Heart size appears normal full level of inspiration. Fullness of the mediastinum is noted, exaggerated by the poor inspiratory effort and vascular ectasia. Osseous structures appear intact. [employer] Phone: Adam, pn Incoming R adiant Results From [facility] - 04/24/2021 11:43 PM EDT EXAMINATION: ONE XRAY VIEW OF THE CHEST 04/24/2021 3:59 pm COMPARISON: None. HISTORY: ORDERING SYSTEM PROVIDED HISTORY: stroke TECHNOLOGIST PROVIDED HISTORY: stroke Reason for Exam: fall, altered mental status supine port FINDINGS: Marginal inspiration is present. No focal area of consolidation or pneumothorax is noted. Heart size appears normal full level of inspiration. Fullness of the mediastinum is noted, exaggerated by the poor inspiratory effort and vascular ectasia. Osseous structures appear intact. IMPRESSION: Marginal inspiration, without evidence of acute cardiopulmonary disease [facility] Phone: [facility] Phone: XR SHOULDER LEFT (MIN 2 VIEW S)Ordered By: Anali Oreilly on 04-24-2021 No evidence of an ac riaz fracture involving the left shoulder [facility] Phone: EXAMINATION: TWO XRA Y VIEWS OF THE LEFT SHOULDER 04/24/2021 4:56 pm COMPARISON: None. HISTORY: ORDERING SYSTEM PROVIDED HISTORY: pain after fall TECHNOLOGIST PROVIDED HISTORY: pain after fall Reason for Exam: fall left shoulder pain FINDINGS: Normal articulation is present at the glenohumeral joint. No evidence of an acute fracture or traumatic malalignment is present. AC joint, and glenohumeral joint degenerative changes are present. Clavicle is intact. Visualized left ribs appear normal. [employer] Phone: Adam, pn Incoming R adiant Results From [facility] - 04/24/2021 11:45 PM EDT EXAMINATION: TWO XRAY VIEWS OF THE LEFT SHOULDER 04/24/2021 4:56 pm COMPARISON: None. HISTORY: ORDERING SYSTEM PROVIDED HISTORY: pain after fall TECHNOLOGIST PROVIDED HISTORY: pain after fall Reason for Exam: fall left shoulder pain FINDINGS: Normal articulation is present at the glenohumeral joint. No evidence of an acute fracture or traumatic malalignment is present. AC joint, and glenohumeral joint degenerative changes are present. Clavicle is intact. Visualized left ribs appear normal. 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 This genotype may be associated with a mild, but clinically insignificant, decrease in MTHFR enzyme activity. This result has been reviewed and approved by Renee Lacey M.D., Ph.D. Background Information: Methylenetetrahydrofolate Reductase (MTHFR) 2 Variants Characteristics: Variants in the MTHFR gene may reduce enzyme activity contributing to hyperhomocysteinemia. Although hyperhomocysteinemia was previously reported to be a risk factor for many conditions, especially venous thrombosis and cardiovascular disease, recent meta-analysis casts doubt on whether lifelong moderate homocysteine elevation has an effect on cardiovascular disease. The [employer] Practice Guidelines indicate that individuals with elevated homocysteine and two copies of the c.665C>T variant have an odds ratio of 1.27 for venous thromboembolism. Thus, they recommend MTHFR genotyping not be ordered as part of a routine evaluation for recurrent loss or thromobophilia due to questionable clinical significance. Incidence: The allele frequency of the c.665C>T variant is 0.35 in Caucasians, 0.5 in Hispanics, and 0.12 in Americans. Inheritance: Autosomal recessive; two copies of the c.665C>T variant may be a contributing factor to hyperhomocysteinemia. Variants Tested: c.665C>T(p.Vue420Mkd) and c.1286A>C(p.Qxy301Ykt). (legacy names C677T and T8233G, respectively). Clinical Sensitivity: Undefined; hyperhomocysteinemia is caused by genetic, physiologic and environmental factors. MTHFR variants are only one contributing factor. Methodology: Polymerase chain reaction (PCR) and fluorescence monitoring. Analytical Sensitivity AND Specificity: 99 percent. Limitations: Only two MTHFR gene variants (c.665C>T and c.1286A>C) are tested. Diagnostic errors can occur due to rare sequence variations. Test developed and characteristics determined by [facility]. See Compliance Statement C: [employer]/ Performed by [facility], [address] [place] [address] [id number] [email or web address], Kristopher Kerr MD, Lab. Director Performed By: #### C RP, TSHX ####[facility] [address] [place] [address] [facility] Director: Shreyas Crain DO#### HOCYS, GLYHGB, B12FOL, FA7, FA8, AT3A ####[address] [address] Lab Director: Bowen Lemon MD#### ALPLA, AAPCR, APRTSF, AB2GLY, APROTC, ADYSF, AAPDSR ####[facility] [place] [address] [phone] [facility] Director: Kristopher Kerr MD#### LUPPRO ####[facility] [address] [place] [address] [facility] Director: Shreyas Crain DOMercy [address] [address] Lab Director: Bowen Lemon MD#### MISCR ####[address] [address] Lab Director: RADHA Delgado [address] [phone] Lab Director: Kristopher Kerr MD Antithrombin III [place] 05-13 Antithrombin III Act 78 % Low 83-122 [facility] Comment on above: Result Comment: Patients receiving Hirudin may have a falsely decreased Antitrombin III Activity. Performed By: #### C RP, TSHX ####[facility] [address] [place], [place] [phone] Director: Shreyas Crain DO#### HOCYS, GLYHGB, B12FOL, FA7, FA8, AT3A ####[address] [address] Lab Director: Bowen Lemon MD#### ALPLA, AAPCR, APRTSF, AB2GLY, APROTC, ADYSF, AAPDSR ####[facility] [address] [place] [address] [phone] Lab Director: Kristopher Kerr MD#### LUPPRO ####[facility] [address] [place], [place] [phone] Director: Shreyas Crain DOMercy [address] [address] Lab Director: Bowen Lemon MD#### MISCR ####[address] [address] Lab Director: RADHA Delgado [address] [phone] Lab Director: Kristopher Kerr MD Factor VII Activityon 2019 Factor VII Activity 253 % High 50-150 [facility] Comment on above: Performed By: #### C RP, TSHX ####[facility] [address] [place], [place] [phone] Director: Shreyas Crain DO#### HOCYS, GLYHGB, B12FOL, FA7, FA8, AT3A ####[address] [phone] Director: Bowen Lemon MD#### ALPLA, AAPCR, APRTSF, AB2GLY, APROTC, ADYSF, AAPDSR ####[facility] [address] [place] [address] [phone] Lab Director: Kristopher Kerr MD#### LUPPRO ####[facility] [address] [place] [address] [phone] Director: Shreyas Crain DOMercy [address] [address] Lab Director: Bowen Lemon MD#### MISCR ####[address] [phone] Director: RADHA Delgado [address] [place] [address] [phone] Lab Director: Kristopher Kerr MD Factor VIII Activityon 05-13 Factor VIII Activity 73 % Normal 50-150 [facility] Comment on above: Performed By: #### C RP, TSHX ####[facility] [address] [place], [place] [phone] Director: Shreyas Crain DO#### HOCYS, GLYHGB, B12FOL, FA7, FA8, AT3A ####[facility] [address] [place] [address] [phone] Director: Bowen Lemon MD#### ALPLA, AAPCR, APRTSF, AB2GLY, APROTC, ADYSF, AAPDSR ####[facility] [address] [place] [address] Lab Director: Kristopher Kerr MD#### LUPPRO ####[facility] [address] [place], [place] [phone] Director: Shreyas Crain DOMercy [address] [phone] Director: Bowen Lemon MD#### MISCR ####[address] [phone] Director: RADHA Delgado [address] [phone] Lab Director: Kristopher Kerr MD Lupus Anticoagulanton 2019 Dilute Akil Viper Negative Normal [facility] Comment on above: Performed By: #### C RP, TSHX ####[address] [address] Lab Director: Shreyas Crain DO#### HOCYS, GLYHGB, B12FOL, FA7, FA8, AT3A ####[address] [phone] Director: Bowen Lemon MD#### ALPLA, AAPCR, APRTSF, AB2GLY, APROTC, ADYSF, AAPDSR ####[facility] [address] [place] [address] Lab Director: Kristopher Kerr MD#### LUPPRO ####[facility] [address] [place] [address] [phone] Director: Shreyas Crain DOMercy [address] [address] Lab Director: Bowen Lemon MD#### MISCR ####[address] [address] Lab Director: RADHA Delgado [address] [phone] Lab Director: Kristopher Kerr MD Wcvd-Lcex-Gyvsqnqg 0 Phosphatidylser, IgA 3 U/mL Normal 0-19 [facility] Comment on above: Result Comment: (NOT E) Performed By: [facility] [address] [place], [place] [phone] [employer]crew Foreman: Kristopher Kerr MD, [place] Performed By: #### C RP, TSHX ####[facility] [address] [place] [address] [facility] Director: Shreyas Crain DO#### HOCYS, GLYHGB, B12FOL, FA7, FA8, AT3A ####[address] [address] Lab Director: Bowen Lemon MD#### ALPLA, AAPCR, APRTSF, AB2GLY, APROTC, ADYSF, AAPDSR ####[facility] [address] [place] [address] [phone] Lab Director: Kristopher Kerr MD#### LUPPRO ####[facility] [address] [place] [address] Lab Director: Shreyas Crain DOMercy [address] [address] Lab Director: Bowen Lemon MD#### MISCR ####[address] [address] Lab Director: RADHA Delgado [address] [phone] Lab Director: Kristpoher Kerr MD Phosphatidylser, IgG 5 U/mL Normal 0-10 [facility] Comment on above: Result Comment: (NOT E) INTERPRETIVE INFORMATION: Phosphatidylserine Ab, IgG The presence of IgG and/or IgM antibodies to phosphatidylserine (aPS) may be associated with a positive test for anti-cardiolipin autoantibodies (aCL) and risk for obstetric antiphospholipid syndrome (APS). Strong clinical correlation is recommended in the absence of lupus anticoagulant, IgG and/or IgM cardiolipin and/or beta2 glycoprotein antibodies. Isolated presence of IgM or IgG antibodies to aPS may have questionable clinical significance for APS and/or SLE. If results are positive, repeat testing with two or more specimens drawn at least 12 weeks apart to demonstrate persistence of antibodies. Results should not be used alone for diagnosis and must be interpreted in light of APS-specific clinical manifestations and/or other criteria phospholipid antibody tests. Performed By: #### C RP, TSHX ####[facility] [address] [place] [address] Lab Director: Shreyas Crain DO#### HOCYS, GLYHGB, B12FOL, FA7, FA8, AT3A ####[address] [address] Lab Director: Bowen Lemon MD#### ALPLA, AAPCR, APRTSF, AB2GLY, APROTC, ADYSF, AAPDSR ####[facility] [address] [place] [address] [phone] Lab Director: Kristopher Kerr MD#### LUPPRO ####[facility] [address] [place] [address] Lab Director: Shreyas Crain DOMercy [address] [address] Lab Director: Bowen Lemon MD#### MISCR ####[address] [address] Lab Director: RADHA Delgado [address] [place] [address] [phone] Lab Director: Kristopher Kerr MD Phosphatidylser, IgM 6 U/mL Normal 0-24 [facility] Comment on above: Result Comment: (NOT E) INTERPRETIVE INFORMATION: Phosphatidylserine Ab, IgM The presence of IgG and/or IgM antibodies to phosphatidylserine (aPS) may be associated with a positive test for anti-cardiolipin autoantibodies (aCL) and risk for obstetric antiphospholipid syndrome (APS). Strong clinical correlation is recommended in the absence of lupus anticoagulant, IgG and/or IgM cardiolipin and/or beta2 glycoprotein antibodies. Isolated presence of IgM or IgG antibodies to aPS may have questionable clinical significance for APS and/or SLE. If results are positive, repeat testing with two or more specimens drawn at least 12 weeks apart to demonstrate persistence of antibodies. Results should not be used alone for diagnosis and must be interpreted in light of APS-specific clinical manifestations and/or other criteria phospholipid antibody tests. Performed By: #### C RP, TSHX ####[facility] [address] [place] [address] Lab Director: Shreyas Crain DO#### HOCYS, GLYHGB, B12FOL, FA7, FA8, AT3A ####[facility] [address] [place] [address] Lab Director: Bowen Lemon MD#### ALPLA, AAPCR, APRTSF, AB2GLY, APROTC, ADYSF, AAPDSR ####[facility] [address] [place] [address] [phone] Lab Director: Kristopher Kerr MD#### LUPPRO ####[facility] [address] [place] [address] Lab Director: Shreyas Crain DOMercy [address] [place] [address] Lab Director: Bowen Lemon MD#### MISCR ####[address] [address] Lab Director: RADHA Delgado [address] [place] [address] [phone] Lab Director: Kristopher Kerr MD Fibrinogen Panelon 07-25-202 0 Fibrinogen 394 mg/dL Normal 150-430 [facility] Comment on above: Performed By: #### C RP, TSHX ####[facility] [address] [place], [place] [phone] Director: Shreyas Crain DO#### HOCYS, GLYHGB, B12FOL, FA7, FA8, AT3A ####[facility] [address] [place], [place] [phone] Director: Bowen Lemon MD#### ALPLA, AAPCR, APRTSF, AB2GLY, APROTC, ADYSF, AAPDSR ####[facility] [address] [place], [place] [phone] Lab Director: Kristopher Kerr MD#### LUPPRO ####[facility] [address] [place], [place] [phone] Director: Shreyas Crain DOMercy [address] [place] [address] Lab Director: Bowen Lemon MD#### MISCR ####[address] [phone] Director: RADHA Delgado [address] [place] [address] [phone] Lab Director: Kristopher Kerr MD Fibrinogen Antigen 347 mg/dL Normal 149-353 [facility] Comment on above: Performed By: #### C RP, TSHX ####[facility] [address] [place], [place] [phone] Director: Shreyas Crain DO#### HOCYS, GLYHGB, B12FOL, FA7, FA8, AT3A ####[facility] [address] [place] [address] Lab Director: Bowen Lemon MD#### ALPLA, AAPCR, APRTSF, AB2GLY, APROTC, ADYSF, AAPDSR ####[facility] [address] [place] [address] Lab Director: Kristopher Kerr MD#### LUPPRO ####[facility] Ksw8959 [place] [address] Lab Director: Shreyas Crain DOMercy [address] [address] Lab Director: Bowen Lemon MD#### MISCR ####[address] [address] Lab Director: RADHA Delgado [address] [address] Lab Director: Kristopher Kerr MD Fibrinogen Ratio 0.88 ratio Normal 0.59-1.23 [facility] Comment on above: Result Comment: (NOT E) INTERPRETIVE INFORMATION: Fibrinogen Antigen/Functional Ratio A ratio of greater than 1.23 is suggestive of a dysfibrogenemia. Performed by [facility], [address] [place] [address] [phone] [email or web address], Kristopher Kerr MD, Lab. Director Performed By: #### C RP, TSHX ####[facility] Wdm9338 [place] [address] Lab Director: Shreyas Crain DO#### HOCYS, GLYHGB, B12FOL, FA7, FA8, AT3A ####[address] [address] Lab Director: Bowen Lemon MD#### ALPLA, AAPCR, APRTSF, AB2GLY, APROTC, ADYSF, AAPDSR ####[facility] [address] [place] [address] [phone] Lab Director: Kristopher Kerr MD#### LUPPRO ####[facility] [id number] [facility] [place] [address] Lab Director: Shreyas Crain DOMercy Xdmloooyfxbb7992 [place] [address] Lab Director: Bowen Lemon MD#### MISCR ####[facility] [place] [address] Lab Director: RADHA Delgado Is[address] [place] [address] [phone] Lab Director: Kristopher Kerr MD Protein C Antigenicon 2019 Protein [Mass/Vol] g/dL Normal 63-153 [facility] Comment on above: Result Comment: (NOT E) INTERPRETIVE INFORMATION: Protein C, Total Antigen Patients on warfarin may have decreased protein C values. Patients should be off warfarin therapy for two weeks for accurate measurement of protein C. Access complete set of age- and/or gender-specific reference intervals for this test in the [facility] Test Directory (Rigel). Performed by [facility], [address] [place] [address] [phone] [email or web address], Kristopher Kerr MD, Lab. Director Performed By: #### C RP, TSHX ####[facility] [id number] [facility] [place] [address] Lab Director: Shreyas Crain DO#### HOCYS, GLYHGB, B12FOL, FA7, FA8, AT3A ####[facility] [place] [address] Lab Director: Bowen Lemon MD#### ALPLA, AAPCR, APRTSF, AB2GLY, APROTC, ADYSF, AAPDSR ####[facility] [address] [place] [address] [phone] Lab Director: Kristopher Kerr MD#### LUPPRO ####[facility] Eko1523 [place] [address] Lab Director: Shreyas Crain DOMercy Oojwzkpxliax1394 [place] [address] Lab Director: Bowen Lemon MD#### MISCR ####[address] [address] Lab Director: RADHA Delgado [address] [phone] [facility] Director: Kristopher Kerr MD ACT Protein C Resiston 05-10 Protein [Mass/Vol] 3.80 g/dL Normal >=2.00 [facility] Comment on above: Result Comment: (NOT E) TEST INTERPRETATION: APC Resistance Profile Ratios less than 2.00 suggest APC resistance. This method uses factor V deficient plasma; therefore, APC resistance due to a nonfactor V mutation will not be detected. Extreme factor V deficiency may cause abnormal ratio. Performed by [facility], [address] [place] [address] [phone] www.[email or web address], Kristopher Kerr MD, Lab. Director Performed By: #### C RP, TSHX #### [facility] [address] [place] [address] Agitator Operator: Shreyas Crain DO #### HOCYS, GLYHGB, B12FOL, FA7, FA8, AT3A #### [address] [address] Agitator Operator: Bowen Lemon MD #### ALPLA, AAPCR, APRTSF, AB2GLY, APROTC, ADYSF, AAPDSR #### [facility] [address] [place] [address] Agitator Operator: Kristopher Kerr MD #### LUPPRO #### [facility] [address] [place] [address] Agitator Operator: Shreyas Crain DO [address] [address] Agitator Operator: Bowen Lemon MD #### MISCR #### [facility] [address] [place] [address] Agitator Operator: Bowen Lemon MD [facility] [address] [place], [place] [phone] Agitator Operator: Kristopher Kerr MD Crkt-3-gdtjjzeom Abon 2019 B2 Glycoprot I, IgG 2 SGU Normal 0-20 [facility] Comment on above: Performed By: #### C RP, TSHX ####[facility] Meg6954 [place] [address] Lab Director: Shreyas Crain DO#### HOCYS, GLYHGB, B12FOL, FA7, FA8, AT3A ####[address] [phone] Director: Bowen Lemon MD#### ALPLA, AAPCR, APRTSF, AB2GLY, APROTC, ADYSF, AAPDSR ####[facility] [address] [place] [address] [phone] Lab Director: Kristopher Kerr MD#### LUPPRO ####[facility] Snz1225 [place] [address] Lab Director: Shreyas Crain DOMercy [address] [place] [address] Lab Director: Bowen Lemon MD#### MISCR ####[address] [address] Lab Director: RADHA eDlgado [address] [place] [address] [phone] Lab Director: Kristopher Kerr MD B2 Glycoprot I, IgM 1 SMU Normal 0-20 [facility] Comment on above: Result Comment: (NOT E) INTERPRETIVE INFORMATION: Y5Bifjxfrxufgg I, IgG and IgM Antibody The persistent presence of IgG and/or IgM beta 2 glycoprotein I (B2GPI) antibodies (greater than 99th percentile) is a laboratory criterion for the diagnosis of antiphospholipid syndrome (APS). Persistence is defined as moderate or high levels of IgG and/or IgM B2GPI antibodies detected in two or more specimens drawn at least 12 weeks apart (J Throm Haemost. 2006;4:295-306). B2GPI results greater than 20 SGU (IgG) and/or SMU (IgM) are considered positive based on the cutoff values established for this test. International reference materials and consensus units for anti-B2GPI antibodies have not been established (Clin Apryl Acta. 2012;413(1-2):358-60; Arthritis Rheum. 2012;64(1):1-10.). Strong clinical correlation is recommended for a diagnosis of APS. Low positive IgG and IgM B2GPI antibody levels should be interpreted in light of APS-specific clinical manifestations and/or other criteria phospholipid antibody tests. Performed By: [facility] [address] [place] [address] Handcrew Foreman: Kristopher Kerr MD, MS Performed By: #### C RP, TSHX ####[address] [address] Lab Director: Shreyas Crain DO#### HOCYS, GLYHGB, B12FOL, FA7, FA8, AT3A ####[address] [address] [facility] Director: Bowen Lemon MD#### ALPLA, AAPCR, APRTSF, AB2GLY, APROTC, ADYSF, AAPDSR ####[facility] Y[address] [place] [address] [phone] Lab Director: Kristopher Kerr MD#### LUPPRO ####[facility] [address] [place] [address] [facility] Director: Shreyas Crain DOMercy [address] [address] Lab Director: Bowen Lemon MD#### MISCR ####[facility] [place], [place] [phone] Lab Director: RADHA Delgado [address] [phone] Lab Director: Kristopher Kerr MD Lipoprotein (a)on 05-10-2020 Lipoprotein a [Mass/Vol] 72 mg/dL High <=29 [facility] Comment on above: Result Comment: (NOT E) Performed By: [facility] [address] [place] [address] Handcrew Foreman: Kristopher Kerr MD, MS Performed By: #### C RP, TSHX #### [facility] [address] [place] [address] Agitator Operator: Shreyas Crain DO #### HOCYS, GLYHGB, B12FOL, FA7, FA8, AT3A #### [address] [address] Agitator Operator: Bowen Lemon MD #### ALPLA, AAPCR, APRTSF, AB2GLY, APROTC, ADYSF, AAPDSR #### [facility] [address] [place] [address] [phone] Agitator Operator: Kristopher Kerr MD #### LUPPRO #### [facility] [address] [place] [address] Agitator Operator: Shreyas Crain DO [address] [address] Agitator Operator: Bowen Lemon MD #### MISCR #### [address] [address] Agitator Operator: Bowen Lemon MD [address] [phone] Agitator Operator: Kristopher Kerr MD Protein S , Free 020 GFR/1.73 sq M predicted among non-blacks MDRD (S/P/Bld) [Vol rate/Area] 109 % Normal 74-147 [facility] Comment on above: Result Comment: (NOT E) INTERPRETIVE INFORMATION: Protein S Ag, FREE Patients on warfarin may have decreased free protein S values. Patients should be off warfarin therapy for two weeks for accurate measurement of free protein S levels. Decreased levels of free protein S are also associated with DIC, liver disease, , and inflammatory syndromes. Access complete set of age- and/or gender-specific reference intervals for this test in the [facility] Test Directory (Rigel). Performed by [facility], [address] [place] [address] [phone] [email or web address], Kristopher Kerr MD, Lab. Director Performed By: #### C RP, TSHX #### [facility] [address] [place] [address] Agitator Operator: Shreyas Crain DO #### HOCYS, GLYHGB, B12FOL, FA7, FA8, AT3A #### [address] [phone] Agitator Operator: Bowen Lemon MD #### ALPLA, AAPCR, APRTSF, AB2GLY, APROTC, ADYSF, AAPDSR #### [facility] [employer] [address] [place] [address] Agitator Operator: Kristopher Kerr MD #### LUPPRO #### [facility] [address] [place] [address] Agitator Operator: Shreyas Crain DO [address] [phone] Agitator Operator: Bowen Lemon MD #### MISCR #### [address] [address] Agitator Operator: Bowen Lemon MD [address] [phone] Agitator Operator: Kristopher Kerr MD Lupus Anticoagulanton 2019 Antiphospholipid IgA 2.2 APU Normal <12 [facility] Comment on above: Result Comment: Reference Range: 12 - 15 Equivocal >15 Positive Performed By: #### C RP, TSHX ####[facility] Phq8022 [place] [address] [facility] Director: Shreyas Crain DO#### HOCYS, GLYHGB, B12FOL, FA7, FA8, AT3A ####[facility] Qrvjhhdfmncl4282 [place] [address] Lab Director: Bowen Lemon MD#### ALPLA, AAPCR, APRTSF, AB2GLY, APROTC, ADYSF, AAPDSR ####[facility] [address] [place] [address] [phone] Lab Director: Kristopher Kerr MD#### LUPPRO ####[facility] Rrm3334 [place] [address] [facility] Director: Shreyas Crain DOMercy [address] [address] Lab Director: Bowen Lemon MD#### MISCR ####[address] [address] Lab Director: RADHA Delgado S[address] [place] [address] Lab Director: Kristopher Kerr MD Antiphospholipid IgG 3.5 GPU Normal <20 [facility] Comment on above: Result Comment: Reference Range: 20.0 - 29.9 Low Positive 30.0 - 79.9 Moderate Positive >79.9 High Positive Performed By: #### C RP, TSHX ####[facility] Pai1388 [place] [address] Lab Director: Shreyas Crain DO#### HOCYS, GLYHGB, B12FOL, FA7, FA8, AT3A ####[address] [address] Lab Director: Bowen Lemon MD#### ALPLA, AAPCR, APRTSF, AB2GLY, APROTC, ADYSF, AAPDSR ####[facility] [address] [place] [address] [phone] Lab Director: Kristopher Kerr MD#### LUPPRO ####[facility] Zrz7373 [place] [address] Lab Director: [place] [address] Lab Director: Bowen Lemon MD#### MISCR ####[place] [address] Lab Director: RADHA Delgado [address] [phone] Lab Director: Kristopher Kerr MD Antiphospholipid IgM 5.2 MPU Normal <20 [facility] Comment on above: Result Comment: Reference Range: 20.0 - 29.9 Low Positive 30.0 - 79.9 Moderate Positive >79.9 High Positive Performed By: #### C RP, TSHX ####[facility] [address] [place] [address] Lab Director: Shreyas Crain DO#### HOCYS, GLYHGB, B12FOL, FA7, FA8, AT3A ####[address] [address] Lab Director: Boewn Lemon MD#### ALPLA, AAPCR, APRTSF, AB2GLY, APROTC, ADYSF, AAPDSR ####[facility] [address] [place] [address] [phone] Lab Director: Kristopher Kerr MD#### LUPPRO ####[facility] Jeh2156 [place], [place] [phone] Director: Shreyas Crain DOMercy [address] [phone] Director: Bowen Lemon MD#### MISCR ####[address] [phone] Director: RADHA Delgado [address] [phone] Lab Director: Kristopher Kerr MD [facility] Test Name THROMBOTIC RISK PANE L TO [facility] TEST [id number] Normal [facility] Comment on above: Performed By: #### C RP, TSHX ####[facility] [address] [place] [address] Lab Director: Shreyas Crain DO#### HOCYS, GLYHGB, B12FOL, FA7, FA8, AT3A ####[address] [phone] Director: Bowen Lemon MD#### ALPLA, AAPCR, APRTSF, AB2GLY, APROTC, ADYSF, AAPDSR ####[facility] V[address]iorbwzvsw919 [place], [place] [phone] Lab Director: Kristopher Kerr MD#### LUPPRO ####[facility] Ust7085 [place], [place] [phone] Director: Shreyas Crain DOMercy [address] [address] Lab Director: Bowen Lemon MD#### MISCR ####[address] [address] Lab Director: RADHA Delgado Ccejbstzxtec932 [place] [address] Lab Director: Kristopher Kerr MD B12/Folate Panelon 0 Cobalamin (Vitamin B12) [Mass/Vol] 840 pg/mL Normal 232-1245 [facility] Comment on above: Performed By: #### C RP, TSHX #### [facility] [address] [place] [address] Agitator Operator: Shreyas Crain DO #### HOCYS, GLYHGB, B12FOL, FA7, FA8, AT3A #### [address] [address] Agitator Operator: Bowen Lemon MD #### ALPLA, AAPCR, APRTSF, AB2GLY, APROTC, ADYSF, AAPDSR #### [facility] [address] [place] [address] Agitator Operator: Kristopher Kerr MD #### LUPPRO #### [facility] [address] [place] [address] Agitator Operator: Shreyas Crain DO [address] [address] Agitator Operator: Bowen Lemon MD #### MISCR #### [address] [address] Agitator Operator: Bowen Lemon MD [facility] [address] [place] [address] Agitator Operator: Kristopher Kerr MD Folic Acid 5.3 ng/mL Normal >4.8 [facility] Comment on above: Performed By: #### C RP, TSHX #### [facility] [address] [place] [address] Agitator Operator: Shreyas Crain DO #### HOCYS, GLYHGB, B12FOL, FA7, FA8, AT3A #### [address] [address] Agitator Operator: Bowen Lemon MD #### ALPLA, AAPCR, APRTSF, AB2GLY, APROTC, ADYSF, AAPDSR #### [facility] [address] [place] [address] Agitator Operator: Kristopher Kerr MD #### LUPPRO #### [facility] [place] [address] Agitator Operator: Shreyas Crain DO [address] [address] Agitator Operator: Bowen Lemon MD #### MISCR #### [address] [address] Agitator Operator: Bowen Lemon MD [facility] [address] [place], [place] [phone] Agitator Operator: Kristopher Kerr MD C-Reactive Proteinon 020 CRP [Mass/Vol] 2.7 mg/L Normal 0.0-5.0 [facility] Comment on above: Performed By: #### C RP, TSHX #### [facility] [address] [place] [address] Agitator Operator: Shreyas Crain DO #### HOCYS, GLYHGB, B12FOL, FA7, FA8, AT3A #### [address] [address] Agitator Operator: Bowen Lemon MD #### ALPLA, AAPCR, APRTSF, AB2GLY, APROTC, ADYSF, AAPDSR #### [facility] [address] [place] [address] Agitator Operator: Kristopher Kerr MD #### LUPPRO #### [facility] [address] [place] [address], [place] [address] Agitator Operator: Shreyas Crain DO [address] [phone] Agitator Operator: Bowen Lemon MD #### MISCR #### [address] [address] Agitator Operator: Bowen Lemon MD [address] [address] Agitator Operator: Kristopher Kerr MD CRP [Mass/Vol] 2.7 mg/L 0 - 5 mg/L [place], [place] DNA Testingon 05-08-2020 DNA Testing (NOTE) Specimen(s) Received: Peripheral blood, FVLI Clinical Information: CVA RESULTS: The Factor V Leiden R506Q Mutation analysis for this patient was sent to [facility]. See separate report. Electronically Signed Out Elba Rodriguez M.D. [facility] [address] [place] [phone] FACTOR V LEIDEN MUTATION ANALYSIS REPORT [place] [facility] Alpesh Dc MD, Elba Rodriguez MD [facility] Comment on above: Performed By: #### C RP, TSHX #### [facility] [address] [place] [address] Agitator Operator: Shreyas Crain DO #### HOCYS, GLYHGB, B12FOL, FA7, FA8, AT3A #### [address] [address] Agitator Operator: Bowen Lemon MD #### ALPLA, AAPCR, APRTSF, AB2GLY, APROTC, ADYSF, AAPDSR #### [facility] [address] [place] [address] Agitator Operator: Kristopher Kerr MD #### LUPPRO #### [facility] [address] [place] [address] [place] [address] Agitator Operator: Shreyas Crain DO [address] [address] Agitator Operator: Bowen Lemon MD #### MISCR #### [address] [address] Agitator Operator: Bowen Leomn MD [address] [address] Agitator Operator: Kristopher Kerr MD DNA Testing (NOTE) Specimen(s) Received: Peripheral blood Clinical Information: CVA RESULTS: The MTHFR Mutation variants c.665C>T and c.1286A>C analysis for this patient was sent to [facility]. See separate report. Electronically Signed Out Elba Rodriguez M.D. [facility] DIAGNOSTICS MOLE[facility]ULAR PATHOLOGY LAB[facility]ORY [address] [place], [place] [phone] MTHFR GENE MUTATION ANALYSIS REPORT [place] [facility] Alpesh Dc MD, Elba Rodriguez MD [facility] Comment on above: Performed By: #### C RP, TSHX #### [facility] [address] [place] [address] Agitator Operator: Shreyas Crain DO #### HOCYS, GLYHGB, B12FOL, FA7, FA8, AT3A #### [address] [address] Agitator Operator: Bowen Lemon MD #### ALPLA, AAPCR, APRTSF, AB2GLY, APROTC, ADYSF, AAPDSR #### [address] [address] Agitator Operator: Kristopher Kerr MD #### LUPPRO #### [facility] [address] [place] [address] Agitator Operator: Shreyas Crain DO [address] [phone] Agitator Operator: Bowen Lemon MD #### MISCR #### [address] [address] Agitator Operator: Bowen Lemon MD [facility] [address] [place], [place] [phone] Agitator Operator: Kristopher Kerr MD DNA Testing (NOTE) Specimen(s) Received: Peripheral blood, PTI Clinical Information: CVA RESULTS: The Prothrombin (F2) c.*97G>A ([id number]) Pathogenic Variant analysis for this patient was [facility] to [facility]. See separate report. Electronically Signed Out Elba Rodriguez M.D. [facility] MO[facility]ULAR [facility] LAB[facility] [address] [place] [phone] FACTOR II (PROTHROMBIN) MUTATION ANALYSIS REPORT [place] [facility] Alpesh Dc MD, Elba Rodrigeuz MD [facility] Comment on above: Performed By: #### C RP, TSHX #### [facility] [address] [place] [address] Agitator Operator: Shreyas Crain DO #### HOCYS, GLYHGB, B12FOL, FA7, FA8, AT3A #### [address] [address] Agitator Operator: Bowen Lemon MD #### ALPLA, AAPCR, APRTSF, AB2GLY, APROTC, ADYSF, AAPDSR #### [facility] [address] [place], [place] [phone] Agitator Operator: Kristopher Kerr MD #### LUPPRO #### [facility] [address] [place] [address] Agitator Operator: Shreyas Crain DO [address] [address] Agitator Operator: Bowen Lemon MD #### MISCR #### [employer] [address] [place] [address] Agitator Operator: Bowen Lemon MD [facility] [employer] [address] [place] [address] Agitator Operator: Kristopher Kerr MD ECHO Complete 2D W Doppler W Coloron 05-08-2020 [facility] SPITAL Transthoracic Echocardiography Report (TTE) Patient Name ICJURGEN Date of Study 05/08/2020 YOEL Bryant Date of 1955 Gender Male Age 64 year(s) Race Room Number Height: 72 inch, 182.88 cm Corporate ID [id number] Weight: 220 pounds, 99.8 kg # Patient Acct [id number] BSA: 2.22 m^2 BMI: 29.84 # kg/m^2 MR # [id number] Integrated Pest Management Technician Yoselyn Pedro Interpreting Physician Kvng Hanna Fellow Referring Nurse Practitioner Interpreting Referring Physician Andreia Chiang Fellow Type of Study TTE procedure:2D Echocardiogram, M-Mode, Doppler, Color Doppler, Bubble Study. Procedure Date Date: 05/08/2020 Start: 10:11 AM Study Location: [facility] Technical Quality: Fair visualization Indications:CVA and Aortic aneurysm. Patient Status: Outpatient Contrast Medium: Bubble Study. Amount - 10 ml Height: 72 inches Weight: 220 pounds BSA: 2.22 m^2 BMI: 29.84 kg/m^2 Rhythm: Within normal limits HR: 80 bpm BP: 131/79 mmHg CONCLUSIONS Summary Normal left ventricle size and function with an estimated EF 50- 55%. Moderate left ventricular hypertrophy. Normal right ventricular size and function. Left atrial dilatation. Negative bubble study, with and without Valsalva maneuver, no suggestion of inter-atrial shunt. Mild mitral regurgitation. Aortic root is mildly dilated. (4.3 cm) No significant pericardial effusion is seen. Signature FINDINGS Left Atrium Left atrial dilatation. Negative bubble study, with and without Valsalva maneuver, no suggestion of inter-atrial shunt. Left Ventricle Normal left ventricle size and function with an estimated EF 50- 55%. No segmental wall motion abnormalities seen. Moderate left ventricular hypertrophy. Right Atrium Right atrium is normal in size. Right Ventricle Normal right ventricular size and function. Mitral Valve Normal mitral valve structure and function. Mild mitral regurgitation. Aortic Valve Aortic valve sclerosis without stenosis. No aortic insufficiency. Tricuspid Valve Normal tricuspid valve structure and function. Insignificant tricuspid regurgitation, unable to estimate RVSP. Pulmonic Valve Pulmonic valve not well visualized but Doppler velocities are normal. No pulmonic insufficiency. Pericardial Effusion No significant pericardial effusion is seen. Miscellaneous Aortic root is mildly dilated. (4.3 cm) E/e' average 13.3 IVC normal diameter & inspiratory collapse indicating normal RA filling pressure . M-mode / 2D Measurements & Calculations: LVIDd:4.57 cm(3.7 - 5.6 cm) Diastolic Volume:86.9 ml LVIDs:3.36 cm(2.2 - 4.0 cm) Systolic Volume:37.9 ml IVSd:1.42 cm(0.6 - 1.1 cm) Aortic Root:4.3 cm(2.0 - 3.7 cm) LVPWd:1.36 cm(0.6 - 1.1 cm) LA Dimension: 4.2 cm(1.9 - 4.0 cm) Fractional Shortenin.48 % LA volume/Index: 65.9 ml /30m^2 Calculated LVEF (%): 56.39 % LVOT:2.5 cm Mitral: Aortic Valve Area (P1/2-Time): 3.24 cm^2 Peak Velocity: 1.28 m/s Peak E-Wave: 0.67 m/s Mean Velocity: 0.97 m/s Peak A-Wave: 0.70 m/s Peak Gradient: 6.55 mmHg E/A Ratio: 0.97 Mean Gradient: 4 mmHg Peak Gradient: 1.82 mmHg Mean Gradient: 1 mmHg Deceleration Time: 180 msec Area (continuity): 4.13 cm^2 P1/2t: 68 msec AV VTI: 26.5 cm Area (continuity): 5.39 cm^2 Mean Velocity: 0.44 m/s Septal Wall E' velocity:0.05 m/s Lateral Wall E' velocity:0.05 m/s [facility], [place] Adam, Mhpn Incoming C ardio Results From Cpacs/Ge - 05/08/2020 11:32 AM [facility] Transthoracic Echocardiography Report (TTE) Patient Name ICKES Date of Study 05/08/2020 YOEL E Date of 1955 Gender Male Age 64 year(s) Race Room Number Height: 72 inch, 182.88 cm Corporate ID [id number] Weight: 220 pounds, 99.8 kg # Patient Acct [id number] BSA: 2.22 m^2 BMI: 29.84 # kg/m^2 MR # [id number] Integrated Pest Management Technician Yoselyn Pedro Interpreting Physician Kvng Hanna Fellow Referring Nurse Practitioner Interpreting Referring Physician Andreia Chiang Fellow Type of Study TTE procedure:2D Echocardiogram, M-Mode, Doppler, Color Doppler, Bubble Study. Procedure Date Date: 05/08/2020 Start: 10:11 AM Study Location: [facility] Technical Quality: Fair visualization Indications:CVA and Aortic aneurysm. Patient Status: Outpatient Contrast Medium: Bubble Study. Amount - 10 ml Height: 72 inches Weight: 220 pounds BSA: 2.22 m^2 BMI: 29.84 kg/m^2 Rhythm: Within normal limits HR: 80 bpm BP: 131/79 mmHg CONCLUSIONS Summary Normal left ventricle size and function with an estimated EF 50- 55%. Moderate left ventricular hypertrophy. Normal right ventricular size and function. Left atrial dilatation. Negative bubble study, with and without Valsalva maneuver, no suggestion of inter-atrial shunt. Mild mitral regurgitation. Aortic root is mildly dilated. (4.3 cm) No significant pericardial effusion is seen. Signature - - - - FINDINGS Left Atrium Left atrial dilatation. Negative bubble study, with and without Valsalva maneuver, no suggestion of inter-atrial shunt. Left Ventricle Normal left ventricle size and function with an estimated EF 50- 55%. No segmental wall motion abnormalities seen. Moderate left ventricular hypertrophy. Right Atrium Right atrium is normal in size. Right Ventricle Normal right ventricular size and function. Mitral Valve Normal mitral valve structure and function. Mild mitral regurgitation. Aortic Valve Aortic valve sclerosis without stenosis. No aortic insufficiency. Tricuspid Valve Normal tricuspid valve structure and function. Insignificant tricuspid regurgitation, unable to estimate RVSP. Pulmonic Valve Pulmonic valve not well visualized but Doppler velocities are normal. No pulmonic insufficiency. Pericardial Effusion No significant pericardial effusion is seen. Miscellaneous Aortic root is mildly dilated. (4.3 cm) E/e' average 13.3 IVC normal diameter & inspiratory collapse indicating normal RA filling pressure . M-mode / 2D Measurements & Calculations: LVIDd:4.57 cm(3.7 - 5.6 cm) Diastolic Volume:86.9 ml LVIDs:3.36 cm(2.2 - 4.0 cm) Systolic Volume:37.9 ml IVSd:1.42 cm(0.6 - 1.1 cm) Aortic Root:4.3 cm(2.0 - 3.7 cm) LVPWd:1.36 cm(0.6 - 1.1 cm) LA Dimension: 4.2 cm(1.9 - 4.0 cm) Fractional Shortenin.48 % LA volume/Index: 65.9 ml /30m^2 Calculated LVEF (%): 56.39 % LVOT:2.5 cm Mitral: Aortic Valve Area (P1/2-Time): 3.24 cm^2 Peak Velocity: 1.28 m/s Peak E-Wave: 0.67 m/s Mean Velocity: 0.97 m/s Peak A-Wave: 0.70 m/s Peak Gradient: 6.55 mmHg E/A Ratio: 0.97 Mean Gradient: 4 mmHg Peak Gradient: 1.82 mmHg Mean Gradient: 1 mmHg Deceleration Time: 180 msec Area (continuity): 4.13 cm^2 P1/2t: 68 msec AV VTI: 26.5 cm Area (continuity): 5.39 cm^2 Mean Velocity: 0.44 m/s Septal Wall E' velocity:0.05 m/s Lateral Wall E' velocity:0.05 m/s [place], [place] Hemoglobin A1Con 05-08-2020 HbA1c (Bld) [Mass fraction] 8.6 % High 4.0-6.0 [facility] Comment on above: Performed By: #### C RP, TSHX #### [facility] [address] [facility] [place] [address] Agitator Operator: Shreyas Crain DO #### HOCYS, GLYHGB, B12FOL, FA7, FA8, AT3A #### [facility] [address] [place] [address] Agitator Operator: Bowen Lemon MD #### ALPLA, AAPCR, APRTSF, AB2GLY, APROTC, ADYSF, AAPDSR #### [facility] [address] [place], [place] [phone] Agitator Operator: Kristopher Kerr MD #### LUPPRO #### [facility] [address] [facility] [place] [address] Agitator Operator: Shreyas Crain DO [address] [id number] Agitator Operator: Bowen Lemon MD #### MISCR #### [facility] [address] [place] [id number] Agitator Operator: Bowen Lemon MD [facility] [address] [place], [place] [id number] Agitator Operator: Kristopher Kerr MD HbA1c (Bld) [Mass fraction] 200 mg/dL Normal [facility] Comment on above: Result Comment: The ADA and AACC recommend providing the estimated average glucose result to permit better patient understanding of their HBA1c result. Performed By: #### C RP, TSHX #### [facility] [address] [place] [address] Agitator Operator: Shreyas Crain DO #### HOCYS, GLYHGB, B12FOL, FA7, FA8, AT3A #### [address] [address] Agitator Operator: Bowen Lemon MD #### ALPLA, AAPCR, APRTSF, AB2GLY, APROTC, ADYSF, AAPDSR #### [facility] [address] [place] [address] Agitator Operator: Kristopher Kerr MD #### LUPPRO #### [facility] [address] [place] [address] Agitator Operator: Shreyas Crain DO [address] [address] Agitator Operator: Bowen Lemon MD #### MISCR #### [address] [address] Agitator Operator: Bowen Lemon MD [facility] [address] [place], [place] [phone] Agitator Operator: Kristopher Kerr MD Glucose [Mass/Vol] 200 mg/dL [place], [place] Comment on above: The ADA and AACC rec ommend providing the estimated average glucose result to permit better patient understanding of their HBA1c result. HbA1c (Bld) [Mass fraction] 8.6 % High 4 - 6 % [place], [place] Interpretation and review of laboratory results Abnormal [place], [place] Homocysteineon 05-08-2020 Homocysteine 10.0 umol/L Normal <15.0 [facility] Comment on above: Performed By: #### C RP, TSHX #### [facility] [address] [place] [address] Agitator Operator: Shreyas Crain DO #### HOCYS, GLYHGB, B12FOL, FA7, FA8, AT3A #### [facility] [address] [place] [address] Agitator Operator: Bowen Lemon MD #### ALPLA, AAPCR, APRTSF, AB2GLY, APROTC, ADYSF, AAPDSR #### [facility] [address] [place], [place] [phone] Agitator Operator: Kristopher Kerr MD #### LUPPRO #### [facility] [address] [place] [address] Agitator Operator: Shreyas Crain DO [facility] [address] [place] [address] Agitator Operator: Bowen Lemon MD #### MISCR #### [address] [address] Agitator Operator: Bowen Lemon MD [facility] [address] [place] [address] Agitator Operator: Kristopher Kerr MD Homocysteine, Serumon 2019 Homocysteine 10 umol/L <15.0 [place], [place] Lupus Anticoagulanton 2019 aPTT Coag (Bld) [Time] 31.2 s Normal 24.0-36.0 [facility] Comment on above: Result Comment: IV Heparin Therapy Range: 62.0-94.0 Performed By: #### C RP, TSHX ####[facility] [address] [place] [address] Lab Director: Shreyas Crain DO#### HOCYS, GLYHGB, B12FOL, FA7, FA8, AT3A ####[facility] [place] [address] Lab Director: Bowen Lemon MD#### ALPLA, AAPCR, APRTSF, AB2GLY, APROTC, ADYSF, AAPDSR ####[facility] [address] [place], [place] [id number] Lab Director: Kristopher Kerr MD#### LUPPRO ####[facility] [address] [place] [address] Lab Director: Shreyas Crain DOMercy [address] [address] Lab Director: Bowen Lemon MD#### MISCR ####[address] [address] Lab Director: RADHA Delgado [address] [place] [id number] Lab Director: Kristopher Kerr MD INR Coag (PPP) [Relative time] 1.0 {INR} Normal [facility] Comment on above: Result Comment: Non-therapeutic Range: INR = 0.9-1.2 Therapeutic Range: Moderate Anticoagulant Intensity: INR = 2.0-3.0 High Anticoagulant Intensity: INR = 2.5-3.5 Performed By: #### C RP, TSHX ####[address] [address] Lab Director: Shreyas Crain DO#### HOCYS, GLYHGB, B12FOL, FA7, FA8, AT3A ####[address] [address] Lab Director: Bowen Lemon MD#### ALPLA, AAPCR, APRTSF, AB2GLY, APROTC, ADYSF, AAPDSR ####[facility] [address] [place] [id number] Lab Director: Kristopher Kerr MD#### LUPPRO ####[facility] [address] [place] [address] Lab Director: Shreyas Crain DOMercy [address] [address] Lab Director: Bowen Lemon MD#### MISCR ####[address] [address] Lab Director: RADHA Delgado [address] [phone] Lab Director: Kristopher Kerr MD PT Coag (PPP) [Time] 12.7 s Normal 11.8-14.6 [facility] Comment on above: Performed By: #### C RP, TSHX ####[facility] [address] [place], [place] [phone] Director: Shreyas Crain DO#### HOCYS, GLYHGB, B12FOL, FA7, FA8, AT3A ####[address] [phone] Director: Bowen Lemon MD#### ALPLA, AAPCR, APRTSF, AB2GLY, APROTC, ADYSF, AAPDSR ####[facility] [address] [place] [id number] Lab Director: Kristopher Kerr MD#### LUPPRO ####[facility] [address] [place] [address] [phone] Director: Shreyas Crain DOMercy [address] [address] Lab Director: Bowen Lemon MD#### MISCR ####[address] [address] Lab Director: RADHA Delgado [address] [phone] Lab Director: Kristopher Kerr MD Lupus Anticoagulant NOT REPORTED Normal [facility] Comment on above: Performed By: #### C RP, TSHX ####[facility] [id number] [place] [address] Lab Director: Shreyas Crain DO#### HOCYS, GLYHGB, B12FOL, FA7, FA8, AT3A ####[address] [address] Lab Director: Bowen Lemon MD#### ALPLA, AAPCR, APRTSF, AB2GLY, APROTC, ADYSF, AAPDSR ####[facility] [address] [place], [place] [id number] Lab Director: Kristopher Kerr MD#### LUPPRO ####[facility] [address] [place] [address] Lab Director: Shreyas Crain DOMercy [address] [address] Lab Director: Bowen Lemon MD#### MISCR ####[address] [address] Lab Director: RADHA Delgado [address] [place] [id number] Lab Director: Kristopher Kerr MD TSH With Reflex Ft4on 2019 TSH Qn 1.14 m[IU]/L [place], [place] TSH w/reflex to FT4on 2019 TSH Qn 1.14 m[IU]/L Normal 0.30-5.00 [facility] Comment on above: Performed By: #### C RP, TSHX #### [facility] [address] [place] [address] Agitator Operator: Shreyas Crain DO #### HOCYS, GLYHGB, B12FOL, FA7, FA8, AT3A #### [facility] [address] [place] [address] Agitator Operator: Bowen Lemon MD #### ALPLA, AAPCR, APRTSF, AB2GLY, APROTC, ADYSF, AAPDSR #### [facility] [address] [place] [address] Agitator Operator: Kristopher Kerr MD #### LUPPRO #### [facility] [address] [place] [address] Agitator Operator: Shreyas Crain DO [facility] [address] [place] [address] Agitator Operator: Bowen Lemon MD #### MISCR #### [facility] [address] [place] [address] Agitator Operator: Bowen Lemon MD [facility] [address] [place], [place] [phone] Agitator Operator: Kristopher Kerr MD Vitamin B12 & Folateon 05-08 Cobalamin (Vitamin B12) [Mass/Vol] 840 pg/mL 232 - 1245 pg/mL [place], [place] Folate 5.3 ng/mL >4.8 [place], [place] CT HEAD WO CONTRASTon 2019 CT HEAD WO CONTRAST EXAMINATION: CT OF THE HEAD WITHOUT CONTRAST 12/12/2019 9:10 am TECHNIQUE: CT of the head was performed without the administration of intravenous contrast. Dose modulation, iterative reconstruction, and/or weight based adjustment of the mA/kV was utilized to reduce the radiation dose to as low as reasonably achievable. COMPARISON: 11/06/2019 and 10/31/2019 HISTORY: ORDERING SYSTEM PROVIDED HISTORY: Cerebrovascular accident (CVA), unspecified mechanism (HCC) TECHNOLOGIST PROVIDED HISTORY: follow up on intracranial hyperdensity Reason for Exam: follow up on intracranial hyperdensity Acuity: Unknown Type of Exam: Unknown Additional signs and symptoms: PT STATES FOLLOW UP STROKE FINDINGS: BRAIN/VENTRICLES: Previous exams showed a hypodensity in the right parietal lobe. Subtle hyperdensity in similar location with some associated edema (series 2, image 38) implies that this may represent a resolving hemorrhage. Scattered foci of low attenuation in the right frontal and anterior right parietal lobe are similar from prior exam. Old lacunar infarcts basal ganglia. Stable ventricular system. No shift of midline structures. No extra-axial hemorrhage. ORBITS: The visualized portion of the orbits demonstrate no acute abnormality. SINUSES: The visualized paranasal sinuses and mastoid air cells demonstrate no acute abnormality. SOFT TISSUES/SKULL: No acute abnormality of the visualized skull or soft tissues. IMPRESSION: Previous hyperdensity appears to have decreased in conspicuity suggesting resolving hemorrhage. The findings were sent to the Radiology Results Communication [facility] at 9:44 am on 12/12/2019to be communicated to a licensed caregiver. Interpreted by: Jethro Duran MD Signed by: Jethro Duran MD 12/12/19 Final result Normal [facility] Previous hyperdensit y appears to have decreased in conspicuity suggesting resolving hemorrhage. The findings were sent to the Radiology Results Communication Center at 9:44 am on 12/12/2019to be communicated to a licensed caregiver. [facility] [place] EXAMINATION: CT OF T HE HEAD WITHOUT CONTRAST 12/12/2019 9:10 am TECHNIQUE: CT of the head was performed without the administration of intravenous contrast. Dose modulation, iterative reconstruction, and/or weight based adjustment of the mA/kV was utilized to reduce the radiation dose to as low as reasonably achievable. COMPARISON: 11/06/2019 and 10/31/2019 HISTORY: ORDERING SYSTEM PROVIDED HISTORY: Cerebrovascular accident (CVA), unspecified mechanism (HCC) TECHNOLOGIST PROVIDED HISTORY: follow up on intracranial hyperdensity Reason for Exam: follow up on intracranial hyperdensity Acuity: Unknown Type of Exam: Unknown Additional signs and symptoms: PT STATES FOLLOW UP STROKE FINDINGS: BRAIN/VENTRICLES: Previous exams showed a hypodensity in the right parietal lobe. Subtle hyperdensity in similar location with some associated edema (series 2, image 38) implies that this may represent a resolving hemorrhage. Scattered foci of low attenuation in the right frontal and anterior right parietal lobe are similar from prior exam. Old lacunar infarcts basal ganglia. Stable ventricular system. No shift of midline structures. No extra-axial hemorrhage. ORBITS: The visualized portion of the orbits demonstrate no acute abnormality. SINUSES: The visualized paranasal sinuses and mastoid air cells demonstrate no acute abnormality. SOFT TISSUES/SKULL: No acute abnormality of the visualized skull or soft tissues. [facility] [place] Adam, Mhpn Incoming R adiant Results From [employer] - 12/12/2019 3:40 PM EST EXAMINATION: CT OF THE HEAD WITHOUT CONTRAST 12/12/2019 9:10 am TECHNIQUE: CT of the head was performed without the administration of intravenous contrast. Dose modulation, iterative reconstruction, and/or weight based adjustment of the mA/kV was utilized to reduce the radiation dose to as low as reasonably achievable. COMPARISON: 11/06/2019 and 10/31/2019 HISTORY: ORDERING SYSTEM PROVIDED HISTORY: Cerebrovascular accident (CVA), unspecified mechanism (HCC) TECHNOLOGIST PROVIDED HISTORY: follow up on intracranial hyperdensity Reason for Exam: follow up on intracranial hyperdensity Acuity: Unknown Type of Exam: Unknown Additional signs and symptoms: PT STATES FOLLOW UP STROKE FINDINGS: BRAIN/VENTRICLES: Previous exams showed a hypodensity in the right parietal lobe. Subtle hyperdensity in similar location with some associated edema (series 2, image 38) implies that this may represent a resolving hemorrhage. Scattered foci of low attenuation in the right frontal and anterior right parietal lobe are similar from prior exam. Old lacunar infarcts basal ganglia. Stable ventricular system. No shift of midline structures. No extra-axial hemorrhage. ORBITS: The visualized portion of the orbits demonstrate no acute abnormality. SINUSES: The visualized paranasal sinuses and mastoid air cells demonstrate no acute abnormality. SOFT TISSUES/SKULL: No acute abnormality of the visualized skull or soft tissues. IMPRESSION: Previous hyperdensity appears to have decreased in conspicuity suggesting resolving hemorrhage. The findings were sent to the Radiology Results Communication Center at 9:44 am on 12/12/2019to be communicated to a licensed caregiver. [place], [place] CT HEAD WO CONTRASTon 2019 CT HEAD WO CONTRAST EXAMINATION: CT OF THE HEAD WITHOUT CONTRAST 11/06/2019 11:47 am TECHNIQUE: CT of the head was performed without the administration of intravenous contrast. Dose modulation, iterative reconstruction, and/or weight based adjustment of the mA/kV was utilized to reduce the radiation dose to as low as reasonably achievable. COMPARISON: 10/31/2019 HISTORY: ORDERING SYSTEM PROVIDED HISTORY: Intraparenchymal hemorrhage of brain (HCC) TECHNOLOGIST PROVIDED HISTORY: R parietal lobe hemorrhage Reason for Exam: F/U STROKE, LT SIDE WEAKNESS Acuity: Unknown Type of Exam: Unknown FINDINGS: BRAIN/VENTRICLES: The cerebral and cerebellar parenchyma demonstrate volume loss. Scattered and confluent low-attenuation areas are noted supratentorially, compatible with chronic microvascular white matter ischemic disease. There is a small focal high attenuation area in the deep white matter of the right frontoparietal region, not appreciably changed. This may represent a small area of hemorrhage versus calcification. No areas of surrounding edema are identified. No abnormal extra-axial fluid collections. The ventricles are proportional to the cerebral sulci. Reynaga-white differentiation is maintained without evidence of an acute infarct. ORBITS: The visualized portion of the orbits demonstrate no acute abnormality. SINUSES: The visualized paranasal sinuses and mastoid air cells demonstrate no acute abnormality. SOFT TISSUES/SKULL: No acute abnormality of the visualized skull or soft tissues. IMPRESSION: 1. Small focal high attenuation area in the deep white matter of the right frontoparietal region, unchanged from the CT on 10/31/2019, without areas of surrounding edema. This most likely represents an area of calcification rather than hemorrhage given the lack of change. Follow-up head CT in 1-2 weeks may be of benefit for further evaluation. 2. Cerebral parenchymal volume loss with chronic microvascular white matter ischemic disease. Interpreted by: Beto Lo MD Signed by: Beto Lo MD 11/06/19 Final result Normal [facility] CT HEAD WO CONTRASTOrdered B y: Barbara Perea on 11-06-2019 1. Small focal high attenuation area in the deep white matter of the right frontoparietal region, unchanged from the CT on 10/31/2019, without areas of surrounding edema. This most likely represents an area of calcification rather than hemorrhage given the lack of change. Follow-up head CT in 1-2 weeks may be of benefit for further evaluation. 2. Cerebral parenchymal volume loss with chronic microvascular white matter ischemic disease. [facility] Work Phone: EXAMINATION: CT OF T HE HEAD WITHOUT CONTRAST 11/06/2019 11:47 am TECHNIQUE: CT of the head was performed without the administration of intravenous contrast. Dose modulation, iterative reconstruction, and/or weight based adjustment of the mA/kV was utilized to reduce the radiation dose to as low as reasonably achievable. COMPARISON: 10/31/2019 HISTORY: ORDERING SYSTEM PROVIDED HISTORY: Intraparenchymal hemorrhage of brain (HCC) TECHNOLOGIST PROVIDED HISTORY: R parietal lobe hemorrhage Reason for Exam: F/U STROKE, LT SIDE WEAKNESS Acuity: Unknown Type of Exam: Unknown FINDINGS: BRAIN/VENTRICLES: The cerebral and cerebellar parenchyma demonstrate volume loss. Scattered and confluent low-attenuation areas are noted supratentorially, compatible with chronic microvascular white matter ischemic disease. There is a small focal high attenuation area in the deep white matter of the right frontoparietal region, not appreciably changed. This may represent a small area of hemorrhage versus calcification. No areas of surrounding edema are identified. No abnormal extra-axial fluid collections. The ventricles are proportional to the cerebral sulci. Reynaga-white differentiation is maintained without evidence of an acute infarct. ORBITS: The visualized portion of the orbits demonstrate no acute abnormality. SINUSES: The visualized paranasal sinuses and mastoid air cells demonstrate no acute abnormality. SOFT TISSUES/SKULL: No acute abnormality of the visualized skull or soft tissues. [employer] Work Phone: Adam, Mhpn Incoming R adiant Results From [facility] - 11/06/2019 1:51 PM EST EXAMINATION: CT OF THE HEAD WITHOUT CONTRAST 11/06/2019 11:47 am TECHNIQUE: CT of the head was performed without the administration of intravenous contrast. Dose modulation, iterative reconstruction, and/or weight based adjustment of the mA/kV was utilized to reduce the radiation dose to as low as reasonably achievable. COMPARISON: 10/31/2019 HISTORY: ORDERING SYSTEM PROVIDED HISTORY: Intraparenchymal hemorrhage of brain (HCC) TECHNOLOGIST PROVIDED HISTORY: R parietal lobe hemorrhage Reason for Exam: F/U STROKE, LT SIDE WEAKNESS Acuity: Unknown Type of Exam: Unknown FINDINGS: BRAIN/VENTRICLES: The cerebral and cerebellar parenchyma demonstrate volume loss. Scattered and confluent low-attenuation areas are noted supratentorially, compatible with chronic microvascular white matter ischemic disease. There is a small focal high attenuation area in the deep white matter of the right frontoparietal region, not appreciably changed. This may represent a small area of hemorrhage versus calcification. No areas of surrounding edema are identified. No abnormal extra-axial fluid collections. The ventricles are proportional to the cerebral sulci. Reynaga-white differentiation is maintained without evidence of an acute infarct. ORBITS: The visualized portion of the orbits demonstrate no acute abnormality. SINUSES: The visualized paranasal sinuses and mastoid air cells demonstrate no acute abnormality. SOFT TISSUES/SKULL: No acute abnormality of the visualized skull or soft tissues. IMPRESSION: 1. Small focal high attenuation area in the deep white matter of the right frontoparietal region, unchanged from the CT on 10/31/2019, without areas of surrounding edema. This most likely represents an area of calcification rather than hemorrhage given the lack of change. Follow-up head CT in 1-2 weeks may be of benefit for further evaluation. 2. Cerebral parenchymal volume loss with chronic microvascular white matter ischemic disease. [facility] Phone: CT head without contrastOrde red By: Barbara Perea on 10-31-2019 Punctate hyperdense focus in the white matter of the right parietal lobe adjacent to the right lateral ventricle that may represent a small hemorrhage and short-term follow-up CT of the brain is recommended within the next 24 hours. Findings were discussed with Dr. Romo At 9:05 am on 10/31/2019. [facility] Phone: EXAMINATION: CT OF T HE HEAD WITHOUT CONTRAST 10/31/2019 8:57 am TECHNIQUE: CT of the head was performed without the administration of intravenous contrast. Dose modulation, iterative reconstruction, and/or weight based adjustment of the mA/kV was utilized to reduce the radiation dose to as low as reasonably achievable. COMPARISON: None. HISTORY: ORDERING SYSTEM PROVIDED HISTORY: R basal ganglia hemorrhage TECHNOLOGIST PROVIDED HISTORY: R basal ganglia hemorrhage Reason for Exam: R basal ganglia hemorrhage FINDINGS: BRAIN/VENTRICLES: There is a punctate hyperdense focus in the white matter of the right parietal lobe adjacent to the right lateral ventricle that measures approximately 5 mm x 6 mm. There is mild underlying chronic microvascular disease. The ventricular structures are symmetric and unremarkable. The infratentorial structures are unremarkable. ORBITS: The visualized portion of the orbits demonstrate no acute abnormality. SINUSES: The visualized paranasal sinuses and mastoid air cells demonstrate no acute abnormality. SOFT TISSUES/SKULL: No acute abnormality of the visualized skull or soft tissues. [facility] Phone: Adam, Mhpn Incoming R adiant Results From [facility] - 10/31/2019 9:34 AM EST EXAMINATION: CT OF THE HEAD WITHOUT CONTRAST 10/31/2019 8:57 am TECHNIQUE: CT of the head was performed without the administration of intravenous contrast. Dose modulation, iterative reconstruction, and/or weight based adjustment of the mA/kV was utilized to reduce the radiation dose to as low as reasonably achievable. COMPARISON: None. HISTORY: ORDERING SYSTEM PROVIDED HISTORY: R basal ganglia hemorrhage TECHNOLOGIST PROVIDED HISTORY: R basal ganglia hemorrhage Reason for Exam: R basal ganglia hemorrhage FINDINGS: BRAIN/VENTRICLES: There is a punctate hyperdense focus in the white matter of the right parietal lobe adjacent to the right lateral ventricle that measures approximately 5 mm x 6 mm. There is mild underlying chronic microvascular disease. The ventricular structures are symmetric and unremarkable. The infratentorial structures are unremarkable. ORBITS: The visualized portion of the orbits demonstrate no acute abnormality. SINUSES: The visualized paranasal sinuses and mastoid air cells demonstrate no acute abnormality. SOFT TISSUES/SKULL: No acute abnormality of the visualized skull or soft tissues. IMPRESSION: Punctate hyperdense focus in the white matter of the right parietal lobe adjacent to the right lateral ventricle that may represent a small hemorrhage and short-term follow-up CT of the brain is recommended within the next 24 hours. Findings were discussed with Dr. Romo At 9:05 am on 10/31/2019. [facility] Phone: EKG 12 LeadOrdered By: Robert Stephenson on 10-31-2019 Atrial Rate 79 BPM [facility] Phone: P [place] 54 degrees [facility] Phone: P-R Interval 188 ms [facility] Phone: Q-T Interval 392 ms [facility] Phone: QRS Duration 102 ms [facility] Phone: QTc Calculation (Bazett) 449 ms [facility] Phone: R [place] 0 degrees [facility] Phone: T [place] 59 degrees [facility] Phone: Ventricular Rate 79 BPM [facility] Phone: Normal sinus rhythm Normal ECG No previous ECGs available [facility] Phone: Adam, Mhpn Incoming E kg Results From [email or web address] - 10/31/2019 10:53 AM EST Normal sinus rhythm Normal ECG No previous ECGs available [facility] Phone: POC Glucose FingerstickOrder ed By: Bennie Bosch on 10-31-2019 Glucose [Mass/Vol] 122 mg/dL High 75 - 110 mg/dL [employer] Work Phone: Interpretation and review of laboratory results Abnormal [facility] Work Phone: Vital Signs Date Time Vital Sign Value Performing Clinician Facility 09-06-2024 13:13-0500 Body height 182.9 cm Alec Pinzon MD Work Phone: [facility] 09-06-2024 13:13-0500 Body mass index (BMI) [Ratio] 28.35 kg/m2 Alec Pinzon MD Work Phone: [facility] 09-06-2024 13:13-0500 Body temperature 97.3 [degF] Alec Pinzon MD Work Phone: [facility] 09-06-2024 13:13-0500 Body weight 94.8 kg Alec Pinzon MD Work Phone: [facility] 09-06-2024 13:13-0500 Diastolic blood pressure 58 mm[Hg] Alec Pinzon MD Work Phone: [facility] 09-06-2024 13:13-0500 Heart rate 75 /min Alec Pinzon MD Work Phone: [facility] 09-06-2024 13:13-0500 Respiratory rate 18 /min Alec Pinzon MD Work Phone: [facility] 09-06-2024 13:13-0500 SaO2% (BldA) [Mass fraction] 97 % Alec Pinzon MD Work Phone: [facility] 09-06-2024 13:13-0500 Systolic blood pressure 96 mm[Hg] Alec Pinzon MD Work Phone: [facility] 05-03-2021 07:59-0400 Diastolic blood pressure 74 mm[Hg] Kranthi Ruvalcaba MD Work Phone: [employer] Work Phone: 05-03-2021 07:59-0400 Heart rate 77 /min Kranthi Ruvalcaba MD Work Phone: [employer] Work Phone: 05-03-2021 07:59-0400 Systolic blood pressure 136 mm[Hg] Kranthi Ruvalcaba MD Work Phone: [employer] Work Phone: 05-03-2021 03:43-0400 Body temperature 97.81 [degF] Kranthi Ruvalcaba MD Work Phone: [employer] Work Phone: 05-03-2021 03:43-0400 Respiratory rate 16 /min Kranthi Ruvalcaba MD Work Phone: [employer] Work Phone: 05-03-2021 03:43-0400 SaO2% (BldA) [Mass fraction] 91 % Kranthi Ruvalcaba MD Work Phone: [employer] Work Phone: 05-02-2021 11:11-0400 Body height 182.9 cm Kranthi Ruvalcaba MD Work Phone: [employer] Work Phone: 04-24-2021 21:58-0400 Body mass index (BMI) [Ratio] 30.24 kg/m2 Kranthi Ruvalcaba MD Work Phone: [employer] Work Phone: 04-24-2021 21:58-0400 Body weight 101.15 kg Kranthi Ruvalcaba MD Work Phone: [employer] Work Phone: 10-31-2019 11:07-0500 Diastolic blood pressure 78 mm[Hg] Robert Stephenson MD Work Phone: [employer] Work Phone: 10-31-2019 11:07-0500 Heart rate 80 /min Robert Stephenson MD Work Phone: [employer] Work Phone: 10-31-2019 11:07-0500 Respiratory rate 17 /min Robert Stephenson MD Work Phone: [employer] Work Phone: 10-31-2019 11:07-0500 SaO2% (BldA) [Mass fraction] 92 % Robert Stephenson MD Work Phone: [employer] Work Phone: 10-31-2019 11:07-0500 Systolic blood pressure 120 mm[Hg] Robert Stephenson MD Work Phone: [employer] Work Phone: 10-31-2019 09:58-0500 Body height 182.9 cm Robert Stephenson MD Work Phone: [employer] Work Phone: 10-31-2019 09:58-0500 Body mass index (BMI) [Ratio] 28.88 kg/m2 Robert Stephenson MD Work Phone: [employer] Work Phone: 10-31-2019 09:58-0500 Body temperature 97.7 [degF] Robert Stephenson MD Work Phone: [employer] Work Phone: 10-31-2019 09:58-0500 Body weight 96.6 kg Robert Stephenson MD Work Phone: [employer] Work Phone: Encounters Encounter Date Encounter Type Care Provider Facility Start: 09-06-2024 End: 09-06-2024 Bamjuano flowsleroy Pinzon MD Work Phone: [facility] Start: 09-06-2024 End: 09-06-2024 Marcos flowsleroy Pinzon MD Work Phone: [facility] Start: 09-06-2024 End: 09-06-2024 ambulatory ALEC PINZON Not Available Start: 09-06-2024 End: 09-06-2024 Office outpatient visit 25 minutes Alec Pinzon MD Work Phone: [facility] Comment on above: Type 2 diabetes daniela itus with hyperglycemia, without long-term current use of insulin (CMS/HCC) (Primary Dx); Adrenal insufficiency ([facility]/HCC); Benign essential hypertension (CMS/HCC); Type 2 diabetes mellitus with diabetic polyneuropathy, without long-term current use of insulin ([facility]/HCC); 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 ([facility]); Primary insomnia; Gastroesophageal reflux disease without esophagitis Start: 09-01-2024 End: 09-01-2024 ambulatory [facility] Start: 08-30-2024 End: 08-30-2024 ambulatory LASHONDA [facility] Start: 08-22-2024 End: 08-22-2024 Refill Alec Pinzon MD Work Phone: [facility] Comment on above: 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 (CMS/HCC) Start: 08-11-2024 End: 08-11-2024 ambulatory [facility] Start: 08-09-2024 ambulatory [facility] Start: 07-26-2024 End: 07-26-2024 Refsandy Pinzon MD Work Phone: [facility] Comment on above: 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 (CMS/HCC) Start: 07-19-2024 End: 07-19-2024 [facility] Start: 07-18-2024 End: 07-18-2024 [facility] Start: 07-10-2024 Evaluation and manag ement of inpatient KAY MAHONEY [facility] Start: 07-09-2024 Emergency department patient visit [facility] Start: 07-09-2024 Emergency department patient visit [facility] Start: 07-09-2024 End: 07-12-2024 Evaluation and management of inpatient AMBER LUTZUR [facility] Start: 06-30-2024 End: 06-30-2024 ambulatory [facility] Start: 06-29-2024 ambulatory JAS GALLEGOS [facility] Start: 06-09-2024 End: 06-09-2024 ambulatory ALEKSANDRA [facility] Start: 06-07-2024 End: 06-07-2024 ambulatory WILLIAM GAMBINO [facility] Start: 06-07-2024 ambulatory KAY DAY [facility] Start: 06-07-2024 End: 06-07-2024 ambulatory [facility] Start: 06-06-2024 End: 06-06-2024 ambulatory [facility] Start: 06-05-2024 End: 06-05-2024 ambulatory JESSA HAMMONDS [facility] Start: 05-19-2024 End: 05-19-2024 ambulatory [facility] Start: 05-18-2024 ambulatory JAS GALLEGOS [facility] Start: 05-09-2024 End: 05-09-2024 ambulatory ALEKSANDRA [facility] Start: 04-28-2024 End: 04-28-2024 ambulatory AELKSANDRA [facility] Start: 04-28-2024 End: 04-28-2024 ambulatory WALT ARAUJO [facility] Start: 04-27-2024 ambulatory ALEKSANDRA [facility] Start: 04-07-2024 End: 04-07-2024 ambulatory ALEKSANDRA [facility] Start: 04-04-2024 ambulatory KAY DAY [facility] Start: 04-04-2024 End: 04-04-2024 [facility] Start: 03-27-2024 End: 03-27-2024 ambulatory [facility] Start: 03-22-2024 End: 03-22-2024 ambulatory [facility] Start: 03-17-2024 End: 03-17-2024 ambulatory [facility] Start: 03-16-2024 ambulatory KAYAKILA DAY [facility] Start: 03-15-2024 End: 03-15-2024 ambulatory ALEC MIRANDALy Not Available Start: 03-07-2024 ambulatory [facility] Start: 03-03-2024 End: 03-03-2024 ambulatory [facility] Start: 02-28-2024 End: 02-28-2024 ambulatory [facility] Start: 02-25-2024 End: 02-25-2024 ambulatory [facility] Start: 02-11-2024 End: 02-11-2024 [facility] Start: 02-08-2024 End: 02-08-2024 ambulatory [facility] Start: 02-04-2024 End: 02-04-2024 ambulatory [facility] Start: 02-03-2024 ambulatory JAS GALLEGOS [facility] Start: 01-14-2024 End: 01-14-2024 [facility] Start: 01-13-2024 ambulatory JAS GALLEGOS [facility] Start: 12-28-2023 End: 12-28-2023 ambulatory [facility] Start: 12-24-2023 End: 12-24-2023 ambulatory ALEKASNDRA [facility] Start: 12-23-2023 [facility] Start: 12-23-2023 End: 12-23-2023 ambulatory I [facility] Start: 12-16-2023 End: 12-16-2023 [facility] Start: 12-13-2023 ambulatory [facility] Start: 12-13-2023 Encounter for other preprocedural examination [facility] Start: 12-09-2023 End: 12-09-2023 ambulatory [facility] Start: 12-09-2023 Encounter for other preprocedural examination [facility] Start: 12-08-2023 ambulatory [facility] Start: 12-08-2023 ambulatory [facility] Start: 12-06-2023 ambulatory [facility] Start: 12-06-2023 ambulatory JESSA UNDERWOOD [facility] Start: 11-26-2023 End: 11-26-2023 ambulatory OBI [facility] Start: 11-23-2023 End: 11-23-2023 [facility] Start: 11-17-2023 End: 11-17-2023 ambulatory ALEC PINZON Not Available Start: 11-09-2023 End: 11-10-2023 Evaluation and management of inpatient OBI [facility] Start: 11-04-2023 End: 11-04-2023 ambulatory [facility] Start: 11-04-2023 End: 11-04-2023 Encounter for preprocedural cardiovascular examination [facility] Start: 10-21-2023 End: 10-21-2023 ambulatory GAVIN LORENZO [facility] Start: 10-07-2023 End: 10-07-2023 ambulatory [facility] Start: 10-06-2023 End: 10-06-2023 ambulatory ALEKSANDRA RUSSO [facility] Start: 09-24-2023 End: 10-18-2023 ambulatory ALEC PINZON [facility] Start: 09-17-2023 End: 10-18-2023 ambulatory ALEC PINZON [facility] Start: 09-16-2023 ambulatory OBI [facility] Start: 09-13-2023 End: 09-13-2023 ambulatory ALEC PINZON Not Available Start: 11-19-2022 End: 11-20-[address] ALEC PINZON Facility:[facility] Start: 11-18-2022 End: 11-19-[address] ALEC PINZON Facility:[facility] Start: 09-25-2022 End: 09-26-[address] ILENE BUSBY Facility:[facility] Start: 09-02-2022 End: 09-02-[address] STEPHIE RODRIGUEZ Facility:[facility] Start: 08-21-2022 End: 08-22-[address] ALEC PINZON Facility:[facility] Start: 05-21-2022 End: 05-22-[address] ALEC PINZON Facility:[facility] Start: 04-24-2021 End: 05-03-2021 Evaluation and management of inpatient ALEC PINZON [facility] Start: 04-24-2021 End: 05-03-2021 Evaluation and management of inpatient Kranthi Ruvalcaba MD Work Phone: 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 ; Diabetes mellitus due to underlying condition with diabetic neuropathy, unspecified whether shelter insulin use (HCC) ; Cerebrovascular accident (CVA) due to embolism of precerebral artery (HCC); Memory impairment Start: 05-08-2020 End: 05-08-2020 Patient encounter procedure ANDREIA CHIANG [facility] Start: 05-08-2020 End: 05-08-2020 Subsequent hospital visit by physician [facility]m 500 [facility] EEG Comment on above: 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 (HCC); Memory impairment 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 Ct Rm 1 [facility] CT Scan Comment on above: Cerebrovascular acci dent (CVA), unspecified mechanism (HCC) Start: 11-06-2019 End: 11-09-2019 Patient encounter procedure BARBARA PEREA [facility] Start: 11-06-2019 End: 11-08-2019 Subsequent hospital visit by physician St [address] [facility] CT Scan Comment on above: Intraparenchymal hem orrhage of brain (HCC) Start: 10-30-2019 End: 10-31-2019 Evaluation and management of inpatient Robert Stephenson MD Work Phone: [facility] Comment on above: Intraparenchymal hem orrhage of brain (HCC) (Primary Dx) Start: 04-26-2018 End: 04-27-2018 Ambulatory DEFAULT PHYSICIAN Facility:[facility] Start: 05-06-2017 End: 05-07-2017 Ambulatory DEFAULT PHYSICIAN Facility:[facility] Procedures Date Procedure Procedure Detail Performing Clinician Start: 07-26-2024 Follow-up visit Follow-up ALEKSANDRA LEIVA Start: 06-07-2024 Follow-up visit JAS GALLEGOS Start: 05-09-2024 Follow-up visit JAS GALLEGOS Start: 03-22-2024 Follow-up visit JAS GALLEGOS Start: 03-03-2024 Follow-up visit JAS GALLEGOS Start: 02-11-2024 Follow-up visit JAS GALLEGOS Start: 12-06-2023 Follow-up visit JAS GALLEGOS Start: 11-26-2023 Follow-up visit JAS GALLEGOS Start: 11-04-2023 Follow-up visit JAS GALLEGOS Start: 11-18-[address] CATALINO BUSBY Comment on above: Performed By: #### [facility] #### [facility] [address] [place] [address] Dr. Mani Carpio Start: 05-03-2021 Glucose blood reagent strip Ning Wallace MD Work Phone: Start: 05-03-2021 Assay of magnesium Rolando Parnell MD Work Phone: Start: 05-03-2021 BASIC METABOLIC PANE L W/ REFLEX TO MG FOR LOW K Jarek Osborn MD Work Phone: Start: 05-02-2021 Glucose blood reagent strip Ning Wallace MD Work Phone: Start: 05-02-2021 End: 05-02-2021 Coagulation time activated Ning rose MD Work Phone: Start: 05-02-2021 End: 05-02-2021 Cardiac catheterization Ning Avila Work Phone: Start: 05-02-2021 Glucose blood reagent strip Ning Wallace MD Work Phone: Start: 05-02-2021 Glucose blood reagent strip Ning Wallace MD Work Phone: Start: 05-02-2021 Assay of magnesium Rolando Parnell MD Work Phone: Start: 05-02-2021 BASIC METABOLIC PANE L W/ REFLEX TO MG FOR LOW K Jarek Osborn MD Work Phone: Start: 05-01-2021 Glucose blood reagent strip Ning Wallace MD Work Phone: Start: 05-01-2021 Glucose blood reagent strip Ning Wallace MD Work Phone: Start: 05-01-2021 Glucose blood reagent strip Ning Wallace MD Work Phone: Start: 05-01-2021 BASIC METABOLIC PANE L W/ REFLEX TO MG FOR LOW K Jarek Osborn MD Work Phone: Start: 05-01-2021 Blood count complete automated Gee Dewey MD Work Phone: Start: 05-01-2021 Thromboplastin time partial plasma/whole blood Gee Dewey MD Work Phone: Start: 04-30-2021 End: 04-30-2021 Thromboplastin time partial plasma/whole blood Ning Wallace MD Work Phone: Start: 04-30-2021 End: 04-30-2021 Thromboplastin time partial plasma/whole blood Gee Dewey MD Work Phone: Start: 04-30-2021 Glucose blood reagent strip Ning Wallace MD Work Phone: Start: 04-30-2021 BASIC METABOLIC PANE L W/ REFLEX TO MG FOR LOW K Jarek Osborn MD Work Phone: Start: 04-30-2021 End: 04-30-2021 Thromboplastin time partial plasma/whole blood Gee Dewey MD Work Phone: Start: 04-29-2021 End: 04-29-2021 Thromboplastin time partial plasma/whole blood Ning Wallace MD Work Phone: Start: 04-29-2021 Glucose blood reagent strip Ning Wallace MD Work Phone: Start: 04-29-2021 End: 04-29-2021 Thromboplastin time partial plasma/whole blood Ning Wallace MD Work Phone: Start: 04-29-2021 Thromboplastin time partial plasma/whole blood Ning Wallace MD Work Phone: Start: 04-29-2021 BASIC METABOLIC PANE L W/ REFLEX TO MG FOR LOW K Jarek Osborn MD Work Phone: Start: 04-29-2021 End: 04-29-2021 Blood count complete automated Gee woods MD Work Phone: Start: 04-28-2021 Thromboplastin time partial plasma/whole blood Ning Wallace MD Work Phone: Start: 04-28-2021 Glucose blood reagent strip Ning Wallace MD Work Phone: Start: 04-28-2021 End: 04-28-2021 Thromboplastin time partial plasma/whole blood Ning Wallace MD Work Phone: Start: 04-28-2021 Thromboplastin time partial plasma/whole blood Ning Wallace MD Work Phone: Start: 04-28-2021 End: 04-28-2021 Cardiac catheterization Andreas Shepherd [employer] Work Phone: Start: 04-28-2021 Echo tthrc r-t 2d w/ wom-mode compl spec&colr d Babak Mancuso MD Work Phone: Start: 04-28-2021 Glucose blood reagent strip Ning Wallace MD Work Phone: Start: 04-28-2021 Assay of magnesium Temo Osborn MD Work Phone: Start: 04-28-2021 BASIC METABOLIC PANE L W/ REFLEX TO MG FOR LOW K Jarek Osborn MD Work Phone: Start: 04-27-2021 Glucose blood reagent strip Ning Wallace MD Work Phone: Start: 04-27-2021 End: 04-27-2021 Thromboplastin time partial plasma/whole blood Ning Wallace MD Work Phone: Start: 04-27-2021 Glucose blood reagent strip Ning Wallace MD Work Phone: Start: 04-27-2021 End: 04-27-2021 Thromboplastin time partial plasma/whole blood Ning Wallace MD Work Phone: Start: 04-27-2021 Basic metabolic pane l calcium total [place] L Blausey [employer] Work Phone: Start: 04-27-2021 Thromboplastin time partial plasma/whole blood Ning Wallace MD Work Phone: Start: 04-27-2021 Assay of magnesium Temo Osborn MD Work Phone: Start: 04-27-2021 BASIC METABOLIC PANE L W/ REFLEX TO MG FOR LOW K Jarek Osborn MD Work Phone: Start: 04-26-2021 Thromboplastin time partial plasma/whole blood Ning Wallace MD Work Phone: Start: 04-26-2021 Thromboplastin time partial plasma/whole blood Gee Dewey MD Work Phone: Start: 04-26-2021 Mri spinal canal cer vical w/o contrast matrl Esteban Serrano MD Work Phone: Start: 04-26-2021 Thromboplastin time partial plasma/whole blood Gee Dewey MD Work Phone: Start: 04-26-2021 Ecg routine ecg w/le ast 12 lds trcg only w/o i&r Gee Parnell MD Work Phone: Start: 04-26-2021 BASIC METABOLIC PANE L W/ REFLEX TO MG FOR LOW K Jarek Osborn MD Work Phone: Start: 04-26-2021 Lipid panel Jarek abdi MD Work Phone: Start: 04-26-2021 Thromboplastin time partial plasma/whole blood Gee Dewey MD Work Phone: Start: 04-25-2021 Electroencephalogram w/rec awake&drowsy Sabrina Aguiar MD Work Phone: Start: 04-25-2021 Drug screen class list a Jarek Osborn MD Work Phone: Start: 04-25-2021 Urinalysis microscopic only Jarek Osborn MD Work Phone: Start: 04-25-2021 Urnls dip stick/tabl et rgnt auto w/o microscopy Jarek Osborn MD Work Phone: Start: 04-25-2021 Assay of troponin quantitative Jarek Osborn MD Work Phone: Start: 04-25-2021 CULTURE, BLOOD 1 Jarek Osborn MD Work Phone: Start: 04-25-2021 Thromboplastin time partial plasma/whole blood Vimal Geronimo MD Work Phone: Start: 04-25-2021 Blood count complete automated Gee Dewey MD Work Phone: Start: 04-25-2021 VITAMIN B12 & FOLATE Mo jesús Aguiar MD Work Phone: Start: 04-25-2021 Hemoglobin glycosylated a1c Rogelio Epstein MD Work Phone: Start: 04-25-2021 Ct abdomen & pelvis w/o contrast material Kay Lou DO Work Phone: Start: 04-25-2021 Glucose blood reagent strip Callie Murrell MD Work Phone: Start: 04-25-2021 COVID-19, RAPID Anali Oreilly MD Work Phone: Start: 04-25-2021 Assay of troponin quantitative Anali Oreilly MD Work Phone: Start: 04-24-2021 Radex shoulder compl ete minimum 2 views Anali Oreilly MD Work Phone: Start: 04-24-2021 Radiologic exam ches t single view Kranthi Ruvalcaba MD Work Phone: Start: 04-24-2021 Ct angiography neck w/contrast/noncontrast Kranthi Ruvalcaba MD Work Phone: Start: 04-24-2021 C-reactive protein Tuan jenny Ruvalcaba MD Work Phone: Start: 04-24-2021 STROKE PANEL Kranthi Ruvalcaba MD Work Phone: Start: 04-24-2021 Ct cervical spine w/ o contrast material Kranthi Ruvalcaba MD Work Phone: Start: 04-24-2021 Ct head/brain w/o co ntrast material Kranthi Ruvalcaba MD Work Phone: Start: 04-24-2021 Ecg routine ecg w/le ast 12 lds trcg only w/o i&r Kranthi Ruvalcaba MD Work Phone: Start: 04-24-2021 CALCIUM, IONIC (POC) Mi nik Ruvalcaba MD Work Phone: Start: 04-24-2021 CREATININE W/GFR POINT OF CARE Kranthi Ruvalcaba MD Work Phone: Start: 04-24-2021 ELECTROLYTES PLUS Rashawn erich Ruvalcaba MD Work Phone: Start: 04-24-2021 End: 04-24-2021 Gluc bld gluc mntr dev cleared fda spec home use Kranthi Ruvalcaba MD Work Phone: Start: 04-24-2021 LACTIC ACID,POINT OF CARE Kranthi Ruvalcaba MD Work Phone: Start: 04-24-2021 VENOUS BLOOD GAS, PO INT OF CARE Kranthi Ruvalcaba MD Work Phone: Start: 05-08-2020 FACTOR 5 LEIDEN BARBARA PEREA Start: 05-08-2020 PROTHROMBIN GENE MUTATION BARBARA PEREA Start: 05-08-2020 MTHFR MUTATION BARBARA MAGANA Start: 05-08-2020 Activated protein c apc resistance assay BARBARA PEREA Start: 05-08-2020 Anti-phosphatidylser ine antibody BARBARA PEREA Start: 05-08-2020 Assay of homocysteine S DEYSI PEREA Start: 05-08-2020 Assay of thyroid sti mulating hormone tsh BARBARA PEREA Start: 05-08-2020 Beta 2 glycoprotein i antibody each BARBARA PEREA Start: 05-08-2020 Blood count automate d differential wbc count BARBARA PEREA Start: 05-08-2020 C-reactive protein BRAN PEREA Start: 05-08-2020 Clotting factor vii proconvertin stable factor BARBARA PEREA Start: 05-08-2020 Clotting factor viii ahg 1 stage BARBARA PEREA Start: 05-08-2020 Clotting inhibitors antithrombin iii activity BARBARA PEREA Start: 05-08-2020 Clotting inhibitors protein c antigen BARBARA PEREA Start: 05-08-2020 Clotting inhibitors protein s free BARBARA PEREA Start: 05-08-2020 Cyanocobalamin vitamin b-12 BARBARA PEREA Start: 05-08-2020 Hemoglobin glycosylated a1c BARBARA PEREA Start: 05-08-2020 Lipoprotein (a) BARBARA PEREA Start: 05-08-2020 Thromboplastin inhib ition tissue BARBARA PEREA Start: 05-08-2020 Electroencephalogram SC LIYA PEREA Start: 05-08-2020 Echo tthrc r-t 2d w/ wom-mode compl spec&colr d BARBARA PEREA Start: 05-08-2020 Assay of homocysteine R abia Андрей Work Phone: Start: 05-08-2020 Assay of thyroid sti mulating hormone tsh Andreia Андрей Work Phone: Start: 05-08-2020 C-reactive protein Rabi a Андрей Work Phone: Start: 05-08-2020 Hemoglobin glycosylated a1c Andreia Андрей Work Phone: Start: 05-08-2020 Thromboplastin inhib ition tissue Andreia Андрей Work Phone: Start: 05-08-2020 VITAMIN B12 & FOLATE Ra silvino Андрей Work Phone: Start: 05-08-2020 Electroencephalogram w/rec awake&asleep BARBARA PEREA Start: 05-08-2020 Echo tthrc r-t 2d w/ wom-mode compl spec&colr d Andreia Андрей Work Phone: Start: 05-08-2020 Electroencephalogram w/rec awake&asleep Andreia Андрей Work Phone: Start: 12-12-2019 Ct head/brain w/o co ntrast material BARBARA PEREA Start: 12-12-2019 Ct head/brain w/o co ntrast material Sabrina Aguiar Work Phone: Start: 11-06-2019 Ct head/brain w/o co ntrast material BARBARA PEREA Start: 11-06-2019 Ct head/brain w/o co ntrast material Barbara Perea DO Work Phone: Start: 10-31-2019 Glucose blood reagent strip Bennie Bosch MD Work Phone: Start: 10-31-2019 RESPIRATORY CARE VINNY LUATION ONLY Barbara Perea DO Work Phone: Start: 10-31-2019 Ct head/brain w/o co ntrast material Barbara Perea DO Work Phone: Start: 10-30-2019 Ecg routine ecg w/le ast 12 lds w/i&r Robert Stephenson MD Work Phone: Start: 10-30-2019 EKG REPORT Hpf Scanni ng Plan of Treatment Date Care Activity Detail Author Start: 03-26-2027 Screening for malignant neoplasm of colon [facility] Start: 05-22-2026 Glaucoma screening Diabetes: Retinopathy Screening [facility] Start: 08-30-2025 Urine screening for protein Diabetes: Urine Protein Screening [facility] Start: 08-09-2025 Urine screening for protein Diabetes: Urine Protein Screening [facility] Start: 07-12-2025 Urine screening for protein Diabetes: Urine Protein Screening [facility] Start: 03-06-2025 End: 03-06-2025 Patient encounter procedure 03/06/2025 1:15 PM EDT Office Visit [facility] [address] [place] [phone] Alec Pinzon MD [address] [place] [phone] [facility] Start: 09-16-2024 Hemoglobin A1c measurement Diabetes: Hemoglobin A1C [facility] Start: 09-06-2024 End: 09-06-2025 Albumin, urine, random Albumin, urine, random Lab Routine Type 2 diabetes mellitus with hyperglycemia, without long-term current use of insulin ([facility]) Expected: 09/06/2024 (Approximate), Expires: 09/06/[address] [facility] Work Phone: Comment on above: Expected: 09/06/2024 (Approximate), Expi res: 09/06/2025 Start: 09-06-2024 End: 09-06-2025 Hemoglobin A1c/Hemoglobin.total in Blood Hemoglobin A1c Lab Routine Type 2 diabetes mellitus with hyperglycemia, without long-term current use of insulin ([facility]) Expected: 09/06/2024 (Approximate), Expires: 09/06/[address] [facility] Comment on above: Expected: 09/06/2024 (Approximate), Expi res: 09/06/2025 Start: 09-06-2024 End: 09-06-2024 Patient encounter procedure 09/06/2024 1:00 PM EST Office Visit [facility] [address] [place] [address] Alec Pinzon MD [address] [place] [phone] [facility] Start: 06-18-2024 Influenza vaccination Influenza Vaccine (#1) [facility] Start: 06-16-2024 Hemoglobin A1c measurement Diabetes: Hemoglobin A1C [facility] Start: 05-03-2022 Creatinine measurement Creatinine monitoring [facility] Phone: Start: 05-03-2022 Potassium monitoring Potassium monitoring [facility] Phone: Start: 04-26-2022 Lipid panel Lipid screen [facility] Phone: Start: 04-25-2022 Hemoglobin A1c measurement A1C test (Diabetic or Prediabetic) [facility] Phone: Start: 07-03-2021 End: 07-03-2021 Patient encounter procedure 07/03/2021 Office Visit Neurology Soraya Henning MD [address] [address] [phone] [facility] Start: 06-18-2021 Influenza vaccination Flu vaccine (#1) [facility] Phone: Start: 2020 End: 2020 Office Visit 2020 Office Visit Neurology Andreia Chiang MD [address] [address] [phone] [facility] Start: 06-18-2020 Influenza vaccination [facility] [place] Start: 12-21-2019 End: 12-21-2019 Office Visit 12/21/2019 Office Visit Neurology Soraya Henning MD [address] [phone] [facility] Start: 12-05-2019 End: 12-05-2019 Patient encounter procedure 12/05/2019 Office Visit Neurology Sabrina Aguiar Sa, MD [address] [phone] [facility] Start: 11-06-2019 End: 10-31-2020 CT HEAD WO CONTRAST CT HEAD WO CONTRAST Imaging Routine Intraparenchymal hemorrhage of brain (HCC) Expected: 11/06/2019, Expires: 10/31/2020 [facility] Phone: Comment on above: Expected: 11/06/2019, Expires: Start: 10-30-2019 Annual Wellness Visit (AWV) Annual Wellness Visit (AWV) [facility] Phone: Start: 2007 Colon cancer screen colonoscopy Colon cancer screen colonoscopy [facility] Phone: Start: 2007 Screening for malignant neoplasm of colon Colon cancer screen [facility] [place] Start: 2007 Screening for malignant neoplasm of lung Low dose CT lung screening [facility] Phone: Start: 2007 Shingles Vaccine (1 of 2) Shingles Vaccine (1 of 2) [employer] Phone: Start: 2002 Screening for malignant neoplasm of colon Colon cancer screen colonoscopy [facility] Phone: Start: 1997 Diabetes screen Diabetes screen [facility] Phone: Start: 1976 DTaP/Tdap/Td vaccine (1 - Tdap) DTaP/Tdap/Td vaccine (1 - Tdap) [place], [place] Start: 1975 Diabetic microalbuminuria test Diabetic microalbuminuria test [facility] Phone: Start: 1972 HIV screen HIV screen [facility] Phone: Start: 1972 HIV screening HIV screen [place], [place] Start: 1968 DTaP/Tdap/Td vaccine (1 - Tdap) DTaP/Tdap/Td vaccine (1 - Tdap) [facility] Phone: Start: 1967 Diabetic foot examination Diabetic foot exam [facility] Phone: Start: 1967 Diabetic retinal exam Diabetic retinal exam [facility] Phone: Start: 1967 Glaucoma screening Diabetes: Retinopathy Screening [facility] Start: 1967 Lipid panel Lipid screen [place], [place] Start: 1967 Lipid screen Lipid screen [facility] Phone: Start: 1963 Pneumococcal 0-64 years Vaccine (1 of 1 - PPSV23) Pneumococcal 0-64 years Vaccine (1 of 1 - PPSV23) [facility] Phone: Start: 1963 Pneumococcal 0-64 years Vaccine (1 of 2 - PPSV23) Pneumococcal 0-64 years Vaccine (1 of 2 - PPSV23) [facility] Phone: Start: 1963 Pneumococcal Vaccine: 65+ Years (1 of 2 - PCV) Pneumococcal Vaccine: 65+ Years (1 of 2 - PCV) [facility] Start: 1957 Creatinine measurement Creatinine monitoring [facility] [place] Start: 1957 Creatinine monitoring Creatinine monitoring [facility] Phone: Start: 1957 Hepatitis C screen Hepatitis C screen [facility] Phone: Start: 1957 Hepatitis C screening Hepatitis C screen [facility] [place] Start: 1957 Potassium monitoring Potassium monitoring [facility] Phone: Start: 1957 Screening for malignant neoplasm of colon 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) 05/08/2020 11:16 AM T [facility] [place] End: 05-08-2020 Antithrombin III Activity Antithrombin III Activity Lab Routine 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) 1 Occurrences starting 05/08/2020 until 05/08/2020 [facility] [place] Comment on above: 1 Occurrences starting 05/08/2020 until 05/08/2020 Antithrombin III Activity Antith rombin III Activity Lab Routine 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) 05/08/2020 11:16 AM EDT [facility] [place] End: 05-04-2021 aPTT in Blood by Coagulation assay APTT Lab Routine Daily for 3 Occurrences starting 05/02/2021 until 05/04/2021, 2 completed [facility] Phone: Comment on above: Daily for 3 Occurrences starting 021 until 05/04/2021, 2 completed Basic Metabolic Pane l w/ Reflex to MG Basic Metabolic Panel w/ Reflex to MG Lab Routine Daily until discontinued starting 04/26/2021, 8 completed [facility] Phone: Comment on above: Daily until discontinued starting 2020, 8 completed End: 11-01-2019 Basic Metabolic Panel w/ Reflex to MG Basic Metabolic Panel w/ Reflex to MG Lab Routine Tomorrow AM for 1 Occurrences starting 11/01/2019 until 11/01/2019 [facility] Phone: Comment on above: Tomorrow AM for 1 Occurrences starting 0 11/01/2019 until 11/01/2019 End: 05-08-2020 Beta-2 Glycoprotein Antibodies Beta-2 Glycoprotein Antibodies Lab Routine 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) 1 Occurrences starting 05/08/2020 until 05/08/2020 [facility] Comment on above: 1 Occurrences starting 05/08/2020 until 05/08/2020 Beta-2 Glycoprotein Antibodies Beta-2 Glycoprotein Antibodies Lab Routine 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) 05/08/2020 11:16 AM EDT [facility] CBC panel - Blood by Automated count CBC Lab Routine Every Other Day until discontinued starting 04/27/2021, 4 completed [facility] Phone: Comment on above: Every Other Day until discontinued start ing 04/27/2021, 4 completed End: 11-01-2019 CBC W Auto Differential panel - Blood CBC auto differential Lab Routine Tomorrow AM for 1 Occurrences starting 11/01/2019 until 11/01/2019 [facility] Phone: Comment on above: Tomorrow AM for 1 Occurrences starting 0 11/01/2019 until 11/01/2019 End: 05-08-2020 Factor 5 Leiden Factor 5 Leiden Lab Routine 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) 1 Occurrences starting 05/08/2020 until 05/08/2020 [employer], [place] Comment on above: 1 Occurrences starting 05/08/2020 until 05/08/2020 End: 05-08-2020 Factor 7 Assay Factor 7 Assay Lab Routine 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) 1 Occurrences starting 05/08/2020 until 05/08/2020 [facility] [place] [facility] Comment on above: 1 Occurrences starting 05/08/2020 until 05/08/2020 Factor 7 Assay Factor 7 Assay L ab Routine 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) 05/08/2020 11:16 AM [facility] [place] End: 05-08-2020 Factor 8 Assay Factor 8 Assay Lab Routine 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) 1 Occurrences starting 05/08/2020 until 05/08/2020 [place], [place] Comment on above: 1 Occurrences starting 05/08/2020 until 05/08/2020 Factor 8 Assay Factor 8 Assay L ab Routine 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) 05/08/2020 11:16 AM [facility] [place] End: 05-08-2020 FIBRINOGEN PANEL FIBRINOGEN PANEL Lab Routine 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) 1 Occurrences starting 05/08/2020 until 05/08/2020 [place], [place] Comment on above: 1 Occurrences starting 05/08/2020 until 05/08/2020 FIBRINOGEN PANEL FIBRINOGEN PANE L Lab Routine 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) 05/08/2020 11:16 AM [facility] [place] Glucose [Mass/volume ] in Serum or Plasma POCT Glucose Point of Care Testing STAT As Needed until discontinued starting 04/27/2021 [facility] Phone: Comment on above: As Needed until discontinued starting End: 04-25-2021 Hemoglobin A1c/Hemoglobin.total in Blood HEMOGLOBIN A1C Lab Routine One Time for 1 Occurrences starting 04/25/2021 until 04/25/2021 [facility] Phone: Comment on above: One Time for 1 Occurrences starting 06/2021 until 04/25/2021 Initiate Oxygen Ther apy Protocol Initiate Oxygen Therapy Protocol Respiratory Care Routine Daily until discontinued starting 10/31/2019 [facility] Phone: Comment on above: Daily until discontinued starting 2019 LAB SCANNED REPORT LAB SCANNED R EPORT Lab Ordered: 04/30/2021 [facility] Phone: Comment on above: Ordered: 04/30/2021 End: 05-08-2020 Lipoprotein a [Mass/Vol] Lipoprotein A Lab Routine 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) 1 Occurrences starting 05/08/2020 until 05/08/2020 [employer], [facility] [place] Comment on above: 1 Occurrences starting 05/08/2020 until 05/08/2020 Lipoprotein a [Mass/Vol] Lipopro tein A Lab Routine 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) 05/08/2020 11:16 AM EDT [facility] [place], [place] Lupus Anticoagulant Lupus Antico agulant Lab Routine 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) 05/08/2020 11:16 AM EDT [facility] [place], [place] Magnesium [Mass/volu me] in Serum or Plasma MAGNESIUM Lab Add-On Daily until discontinued starting 05/02/2021, 2 completed [facility] Phone: Comment on above: Daily until discontinued starting 2020, 2 completed End: 05-08-2020 MTHFR mutation MTHFR mutation Lab Routine 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) 1 Occurrences starting 05/08/2020 until 05/08/2020 [place] Comment on above: 1 Occurrences starting 05/08/2020 until 05/08/2020 Oxygen therapy [[facility] Data Set] [facility] Phone: Comment on above: Daily until discontinued starting 2020 Daily until disconti nued starting 05/02/2021 End: 05-08-2020 Phosphatidylserine Antibodies Phosphatidylserine Antibodies Lab Routine 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) 1 Occurrences starting 05/08/2020 until 05/08/2020 [facility] [place] Comment on above: 1 Occurrences starting 05/08/2020 until 05/08/2020 Phosphatidylserine Antibodies Phosphatidylserine Antibodies Lab Routine 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) 05/08/2020 11:16 AM [facility] [place] End: 04-24-2021 POC Blood Gas and Chemistry POC Blood Gas and Chemistry Point of Care Testing STAT One Time for 1 Occurrences starting 04/24/2021 until 04/24/2021 [facility] Phone: Comment on above: One Time for 1 Occurrences starting 05/2021 until 04/24/2021 Potassium w/ Reflex to Magnesium Potassium w/ Reflex to Magnesium Lab Routine As Needed until discontinued starting 04/28/2021 [facility] Phone: Comment on above: As Needed until discontinued starting End: 05-08-2020 Protein C Antigen, Total Protein C Antigen, Total Lab Routine 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) 1 Occurrences starting 05/08/2020 until 05/08/2020 [place], [place] Comment on above: 1 Occurrences starting 05/08/2020 until 05/08/2020 Protein C Antigen, Total Protein C Antigen, Total Lab Routine 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) 05/08/2020 11:16 AM [facility] [place] End: 05-08-2020 Protein S Antigen, Free Protein S Antigen, Free Lab Routine 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) 1 Occurrences starting 05/08/2020 until 05/08/2020 [place], [place] Comment on above: 1 Occurrences starting 05/08/2020 until 05/08/2020 Protein S Antigen, Free Protein S Antigen, Free Lab Routine 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 10-31-2019 influenza quadrivale nt split vaccine (FLUZONE;FLUARIX;FLULAV AL;AFLURIA) injection 0.5 mL Robert Stephenson MD Work Phone: [facility] Phone: 10-31-2019 influenza, injectabl e, quadrivalent, preservative free Robert Stephenson MD Work Phone: [facility] Work Phone: Payers Date Payer Category Payer Medicare [employer] MEDICARE UHC DUAL COMPLETE [id number] 2022-Present [address] [place] [address] [id number] 2022 Medicare (Managed Care) [employer] MEDICARE .[id number] 2021 Unknown [id number] 2019 [place] xxxxxxxxxxxx 2019-Present [phone] [address] [place] [address] xxxxxxxxxxxx [id number] 2019 Medicaid MEDICAID [facility] DEPT OF JOB [id number] 2019-Present [phone] [address] [place] [address] [id number] 2019 Medicare MEDICARE MEDICAR E PART A AND B xxxxxxxxxxx 2019-Present [phone] [address] [address] [place] [address] xxxxxxxxxxx [id number] 2019 Medicare [id number] 2019 Medicare MEDICARE MEDICAR E PART A AND B [id number] 2019-Present [phone] [place] [address] [id number] 2017 Unknown [id number] 1959 Medicaid [id number] 1957 Unknown [id number] [id number]. 176 1957 Unknown [id number] 2.16.840.1.926806.3.579.2. 176 1957 Unknown [id number] 2.16.840.1.239586.3.579.2. 176 1957 Unknown [id number] 2.16.840.1.743889.3.579.2. 176 1957 Unknown [id number] 2.16.840.1.154849.3.579.2. 176 1957 Unknown [id number] 2.16.840.1.883907.3.579.2. 175 1957 Unknown [id number] 2.16.840.1.860738.3.579.2. 593 1957 Unknown [id number] 2.16.840.1.023831.3.579.2. 593 1957 Unknown [id number] 2.16.840.1.160334.3.579.2. 593 1957 Unknown [id number] 2.16.840.1.647632.3.579.2. 593 1957 Unknown [id number] 2.16.840.1.613711.3.579.2. 593 1957 Unknown [id number] 2.16.840.1.208006.3.579.2. 593 1957 Unknown [id number] 2.16.840.1.101584.3.579.2. 1286 1957 Unknown [id number] 2.16.840.1.913198.3.579.2. 1286 1957 Unknown [id number] 2.16.840.1.741331.3.579.2. 1259 1957 Unknown [id number] 2.16.840.1.941101.3.579.2. 1259 1957 Unknown [id number] 2.16.840.1.823517.3.579.2. 1259 1957 Unknown [id number] 2.16.840.1.143074.3.579.2. 1259 Unknown Social History Date Type Detail Facility Start: 10-18-1974 End: 11-17-2023 Tobacco smoking status HIIS Current every day smoker [facility] Start: 10-18-1974 History of tobacco use Cigarette Smo ker [facility] Phone: Start: 11-07-2019 End: 03-14-2024 Cigarettes smoked current (pack per day) - Reported [facility] Phone: Start: 1955 Sex Assigned At Not on file [employer] Phone: Start: 04-25-2020 End: 11-17-2023 Tobacco use and exposure Never used [facility] [place] [place] Start: 08-14-2020 Alcohol intake Ex-drinker (finding) [facility] Phone: Exposure to SARS-CoV -2 (event) Not sure [employer] Start: 03-14-2024 End: 09-06-2024 Social connection and isolation panel [facility] Attends [employer] Services Not on file [facility] Do you belong to any clubs or organizations such as restoration groups, unions, fraternal or athletic groups, or school groups? No [facility] Are you now , , , , never or living with a partner? [facility] How often to you hav e a drink containing alcohol? Never [facility] Do you feel stress - tense, restless, nervous, or anxious, or unable to sleep at night because your mind is troubled all the time - these days [OSQ] Only a little [facility] The food that (I/we) bought just didn't last, and (I/we) didn't have money to get more. Never true [facility] Medical Equipment Procedure Code Equipment Code Equipment Origin al Text Equipment Identifier Dates [id number] Start: 07-19-2023 Clinical Notes 10-31-2019 to 09-06-2024 Alec Pinzon MD - 09/06/2024 2:29 PM Jennifer Pinzon MD - 09/06/2024 2:28 PM Jennifer Pinzon MD - 09/06/2024 2:28 PM Jennifer Pinzon MD - 09/06/2024 2:28 PM ESTDischarge Instr - COCAttachments Note Date & Type Note Facility 09-06-2024 History of Present illness Narrative Associated Problem(s): GERD (gastroesophageal reflux disease) Symptoms controlled with protonix and continue. Associated Problem(s): Insomnia Sleeping well with medication and continue. Associated Problem(s): Type 2 diabetes mellitus with diabetic polyneuropathy, without long-term current use of insulin ([facility]/HCC) Symptoms tolerable with medication and continue. Associated Problem(s): 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 (CMS/HCC) Continued weakness and difficulty completing ADLs. Script for wheelchair to assist with ADLs to patient. Associated Problem(s): Hyperglycemia due to type 2 diabetes mellitus (CMS/HCC) Reports BS controlled and due for A1C. Continue meds and stick to ADA diet. Associated Problem(s): Benign essential hypertension (CMS/HCC) BP low and monitor PRN. Associated Problem(s): Adrenal insufficiency (CMS/HCC) BP low but stable and no symptoms. Monitor. Images from the original note were not included. Subjective Patient ID: Yoel Van is a 69 y.o. male who presents for Follow-up (6 m). Follow up DM, HTN, neuropathy, insomnia, and GERD. Reports BS improved and around 120-170. Tries to eat well and stick to ADA diet but reports occasional splurges. Denies signs of elevated BS such as polyuria, polyphagia or polydipsia. Checking BP PRN and recently lower. Admitted with adrenal insufficiency and added cortef. BP low today. Taking medication daily and tolerating without side effects. Neuropathy stable. Mild pain and burning in feet. Symptoms worse with walking and standing. Using percocet PRN which helps. Sleeping well with medication. Able to fall asleep and stay asleep. Wakes up rested in am. GERD controlled with protonix. Denies epigastric pain or burning and not waking up with symptoms. Weakness unchanged after stroke. Continues to have weakness on left side and difficulty with walking and standing. Uses wheelchair to get around house and assist with ADLs but worn out and rubber coming off tire. Requests new wheelchair. Review of Systems Constitutional: Negative for fatigue. Respiratory: Negative for cough, shortness of breath and wheezing. Cardiovascular: Negative for chest pain and palpitations. Gastrointestinal: Negative for abdominal pain, diarrhea, nausea and vomiting. Genitourinary: Negative for dysuria. Objective Physical Exam Constitutional: General: He is not in acute distress. Appearance: Normal appearance. HENT: Head: Normocephalic. Right Ear: Tympanic membrane and ear canal normal. Left Ear: Tympanic membrane and ear canal normal. Eyes: Extraocular Movements: Extraocular movements intact. Pupils: Pupils are equal, round, and reactive to light. Cardiovascular: Rate and Rhythm: Normal rate and regular rhythm. Heart sounds: No murmur heard. No friction rub. No gallop. Pulmonary: Breath sounds: Normal breath sounds. No wheezing, rhonchi or rales. Abdominal: General: Bowel sounds are normal. There is no distension. Palpations: Abdomen is soft. Tenderness: There is no abdominal tenderness. There is no guarding or rebound. Musculoskeletal: Left lower leg: No edema. Neurological: Mental Status: He is alert. Assessment/Plan Problem List Items Addressed This Visit Benign essential hypertension (CMS/HCC) BP low and monitor PRN. Type 2 diabetes mellitus with diabetic polyneuropathy, without long-term current use of insulin (CMS/HCC) Symptoms tolerable with medication and continue. Insomnia Sleeping well with medication and continue. GERD (gastroesophageal reflux disease) Symptoms controlled with protonix and continue. Hyperglycemia due to type 2 diabetes mellitus (CMS/HCC) - Primary Reports BS controlled and due for A1C. Continue meds and stick to ADA diet. Relevant Orders Albumin, urine, random Hemoglobin A1c Adrenal insufficiency (CMS/HCC) BP low but stable and no symptoms. Monitor. 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 (CMS/HCC) Continued weakness and difficulty completing ADLs. Script for wheelchair to assist with ADLs to patient. documented in this encounter [facility] 07-10-2024 Note [facility] 07-10-2024 Note [facility] 06-30-2024 Note [facility] 06-30[facility]2024 [facility] [place] 06-[facility]24 [facility] 06-30-2024 [facility] 06-29-2024 Note Fluids for rising cr eat and eval his thyroid dysfunction at visit with provider .thanks Aleksandra Russo MD [facility] 06-28-2024 Note Relevant Hx: Course: 03/16/24 HgA1C 8.9 Daily Update: Today's Plan: Continue to follow with PCP for management [facility] 06-28-2024 Note [facility] [place] 06-28-[address] by Dr Kary cespedes 12/16/23 at [facility] 06-28-2024 Note [facility] [place] 06-28-2024 Note [facility] [place] 06-28-2024 Note [facility] [place] 06-28-2024 Note [facility] [place] 06-28-2024 Note [facility] [place] 06-28-2024 Note [facility] [place] 06-28-2024 Note [facility] [place] 06-09-2024 Note [facility] [place] 06-07-2024 Note [facility] [place] 06-07-2024 Note Patient has an upcom ing provider visit to address upcoming labs Aleksandra Russo MD [facility] 06-07-2024 Note [facility] [place] 05-19-2024 Note Please let patient k now and follow his tsh and others. Thanks Aleksandra Russo MD [facility] 05-19-2024 Note [facility] [place] 05-19-2024 Note [facility] [place] 05-18-2024 Note With hypercalcemia, please work up and also will get MRI as rec by ortho. Aleksandra Russo MD [facility] 05-18-2024 Note Jessa, Please ch erica with patient at visit on the mri back that ortho were recommending and if not ordered by them would please need ordered Thanks Aleksandra Russo MD [facility] 05-09-2024 Note [facility] [place] 04-28-2024 Note [facility] [place] 04-28-2024 Note [facility] 04-28-2024 Note [facility] [place] 04-04-2024 Note Please also refer to ortho for eval of the compression fracture . Just give him a head's up too pls Thanks Aleksandra Russo MD [facility] 04-04-2024 Note [facility] [place] 03-27-2024 Note Keep planned follow up and no contrast due to kidney dysfunction rcc adjuvant Aleksandra Russo MD [facility] 03-22-2024 Note [facility] [place] 03-07-2024 Note [facility] 03-03-2024 Note [facility] [place] 02-25-2024 Note Likely creat closer to his new baseline after nephrectomy. Will also keep our urology colleagues in the loop and patient is going to be seeing nephrology next month Aleksandra Russo MD [facility] 02-11-2024 Note [facility] [place] 02-08-2024 Note [facility] [place] 01-14-2024 Note [facility] [place] 12-28-2023 Note [facility] [place] 12-23-2023 Note Likely new baseline. O to start as discussed C1D1 immunotherapy 12/24/2023 Please give him an appointment with nephrology thank Aleksandra Russo MD [facility] 12-23-2023 Note [facility] [place] 12-13-2023 Note [facility] [place] 12-13-2023 Note Thanks for setting u p with nephrology and Urology Will delay planned start of adjuvant IO by a week while waiting on optimization of his kidney function can you please add spep /upep/IFIX and Ufix Thanks so much Aleksandra Russo MD [facility] 12-09-2023 Note Pt was given 1 liter of 0.9% NS PIV over 1hr 45 mins then a cmp was drawn off of pt's #22 IV in Rt fa. [facility] 12-08-2023 Note [facility] [place] 12-08-2023 Note [facility] [place] 12-06-2023 Note [facility] [place] 11-26-2023 Note [facility] [place] 11-23-2023 Note [facility] [place] 11-10-2023 Note [facility] 11-10-2023 Note [facility] 11-09-2023 Note Peripheral IV Date/Time: 11/09/2023 8:55 AM Inserted by: Julia Albrecht MD Placement Needle size: 14 G Laterality: right Location: forearm Site prep: alcohol Technique: anatomical landmarks Attempts: 2 [facility] 11-09-2023 Note [facility] [place] 11-09-2023 Note [facility] [place] 11-04-2023 Note [facility] [place] 10-27-2023 Note [facility] [place] 10-06-2023 Note [facility] [place] 09-16-2023 Note [facility] [place] 09-26-2022 Note Indication: Abdomina l wall abscess. Comparison: 09/02/2022 exam. Procedure: Axial images were made from the diaphragms through the symphysis pubis. Oral contrast Omnipaque was given prior to scanning. 100 mL Omnipaque 300 Intravenous contrast was given. Dose reduction techniques were achieved by using automated exposure control and/or adjustment of mA and/or kV according to patient size and/or use of iterative reconstruction technique. Findings: Liver/Biliary System: No liver lesions. No intra or extrahepatic biliary dilatation. Status post cholecystectomy. In gallbladder fossa at surgical bed, there is a 4.5 x 1.3 cm fluid collection seen with air bubbles within. Although this could represent postoperative changes in the gallbladder fossa, an infected fluid cannot be excluded. Please correlate clinically. Fat stranding is seen along inferior right lobe of the liver, probably postoperative changes. Pancreas/Spleen: No pancreatic masses. Pancreatic duct is not dilated. No evidence of acute pancreatitis. No splenomegaly or splenic lesions. Kidneys/Adrenals: Redemonstration of 2.5 x 2.3 cm mass in left kidney. The mass shows CT attenuation of 94 HU on nephrographic phase images and 72 HU on delayed phase images. Differential diagnosis includes renal cell carcinoma and Oncocytoma. A dedicated CT/MRI of the kidney may be recommended for confirmation. No renal stones or hydronephrosis. Normal excretion of the kidneys with no filling defect seen in the pelvicalyceal systems or ureters. No adrenal nodules. Aorta/Vessels: No evidence of aortic aneurysm. Atherosclerotic disease of the aorta. Patent IVC, hepatic veins, renal veins and portal venous system. Bowel/Fluid/Nodes: No bowel dilatation. No bowel wall thickening. Normal appendix. Colonic diverticulosis with no evidence of diverticulitis. No ascites or fluid collections. Lung bases: Clear. Other findings: No aggressive osseous lesions are seen Pelvis: No pelvic masses or adenopathy. No free fluid seen in the pelvis. Bladder, seminal vesicles and prostate grossly unremarkable. A femorofemoral graft is seen. Other Findings: No aggressive osseous lesions are seen. Impression: 1. Status post cholecystectomy. In gallbladder fossa at surgical bed, there is a 4.5 x 1.3 cm fluid collection seen with air bubbles seen within. Although this could represent postoperative changes in the gallbladder fossa, an infected fluid cannot be excluded. Please correlate clinically. Fat stranding is seen along inferior right lobe of the liver, probably postoperative changes. 2. No abdominal wall abscesses are seen. 3. Redemonstration of 2.5 x 2.3 cm mass in left kidney. The mass shows CT attenuation of 94 HU on nephrographic phase images and 72 HU on delayed phase images. Differential diagnosis includes renal cell carcinoma and Oncocytoma. Please note, the current exam does not include noncontrast enhanced images of kidneys. A dedicated CT/MRI of the kidney may be recommended for confirmation. 4. Colonic diverticulosis with no evidence of diverticulitis. Electronically authenticated by: MELODIE DUNLAP Date: 2022-09-26 14:17 [facility] 05-03-2021 History of Present illness Narrative Images from the original note were not included. [place] [employer] Progress Note Date: 05/02/2021 Patient name: Yoel Van Date of admission: 04/24/2021 9:50 PM Date of : 1955 PCP: Alec Pinzon MD Reason for Admission: NSTEMI (non-ST elevated myocardial infarction) (HCC) [I21.4] CAD, multiple vessel [I25.10] Subjective: Clinical Changes / Abnormalities: Patient seen and examined with present at the bed side. Pt denies any CP or SOB. Pt states lexi the is ready to go home today. Medications: Scheduled Meds: sodium chloride flush 5-40 mL Intravenous 2 times per day clopidogrel 75 mg Oral Daily carvedilol 12.5 mg Oral BID aspirin 81 mg Oral Daily lisinopril 40 mg Oral Daily sodium chloride flush 5-40 mL Intravenous 2 times per day insulin lispro 0-12 Units Subcutaneous TID insulin lispro 0-6 Units Subcutaneous Nightly nicotine 1 patch Transdermal Daily sodium chloride flush 5-40 mL Intravenous 2 times per day atorvastatin 40 mg Oral Daily gabapentin 600 mg Oral BID traZODone 200 mg Oral Nightly pantoprazole 40 mg Oral Nightly Continuous Infusions: sodium chloride sodium chloride dextrose sodium chloride heparin (PORCINE) Infusion 15 Units/kg/hr (05/02/21 0310) CBC: Recent Labs 05/01/21 0513 WBC 7.3 HGB 12.6* PLT 250 BMP: Recent Labs 04/30/21 0527 05/01/21 0513 05/02/21 0547 NA 134* 139 139 K 4.0 4.3 4.0 CL 103 105 106 CO2 19* 20 19* BUN 9 14 11 CREATININE 0.74 0.62* 0.87 GLUCOSE 180* 185* 161* Hepatic: No results for input(s): AST, ALT, ALB, BILITOT, ALKPHOS in the last 72 hours. Troponin: No results for input(s): TROPHS in the last 72 hours. BNP: No results for input(s): BNP in the last 72 hours. Lipids: No results for input(s): CHOL, HDL in the last 72 hours. Invalid input(s): LDLCALCU INR: No results for input(s): INR in the last 72 hours. Objective: Vitals: BP (!) 162/94 Pulse 63 Temp 98.2 F (36.8 C) (Oral) Resp 16 Ht 6' (1.829 m) Wt 223 lb (101.2 kg) SpO2 94% BMI 30.24 kg/m General appearance: alert and cooperative with exam HEENT: Head: Normocephalic, no lesions, without obvious abnormality. Neck: no JVD, trachea midline, no adenopathy Lungs: Clear to auscultation with diminished breath sounds in bases bilat. Room air without distress. Heart: Regular rate and rhythm, s1/s2 auscultated, no murmurs. SR. Abdomen: soft, non-tender, bowel sounds active Extremities: no edema Neurologic: not done CARDIAC CATH 05/02/21 Findings: LMCA: Proximal 40% stenosis with ventriculization of the pressure. LAD: Ostial to mid diffuse 60-70% stenosis. Distal 75% stenosis. Diag is intermediate to large caliber with proximal 70% stenosis LCx: Mid long 80% stenosis, reduced to 0% with PTCA/FLORESITA. Mid to distal vessel has 40% stenosis OM has proximal FOOT CASTER and supplied by Collaterals Lesion on Mid CX: Mid subsection.85% stenosis 20 mm length reduced to 0%. Pre procedure FLOR III flow was noted. Post Procedure FLOR III flow was present. Good runoff was present. The lesion was diagnosed as Moderate Risk (B). Coronary Tree Dominance: Right LV function assessed as:Normal. The LV gram was performed in the DOMINGO 30 position. LVEF: 55%. EBL < 10cc Conclusions: 1. Multivessel CAD (Patient deemed not a candidate for CABG due to CVA) 2. Successful PCI / Drug Eluting Stent of the mid Circumflex Coronary Artery. Recommendations Routine Post Stent Orders. optimize medical therapy Consideration of PCI of LAD/Diag in 6 weeks if remains symptomatic 04/28/2021: LMCA: 20% ostial stenosis LAD: Mid area 75%stenosis Distal 80% stenosis D1: proximal 80-90% stenosis LCx: Proximal 90% stenosis RCA: Patent mid stent area with 25% stenosis PDA: proximal 75% stenosis Coronary Tree Dominance: Right LV Analysis LV function assessed as:Normal. Conclusions: Multivessel CAD Preserved LV function Recommendations CV surgery consult for CABG Echo 04/28/2021: Summary Left ventricle is normal in size. Global left ventricular systolic function is mildly reduced. Estimated ejection fraction is 45-50 % . Calculated EF via Bird's method is 46 %. Grade I (mild) left ventricular diastolic dysfunction. Left atrium is mildly dilated. Right atrium is mildly dilated . Negative bubble study, no shunt noted via injection of agitated saline. Aortic valve is sclerotic but opens well.. Trivial to mild mitral regurgitation. Trivial tricuspid regurgitation. Estimated right ventricular systolic pressure is 29 mmHg. Normal aortic root dimension. The ascending aorta is mildly dilated. Assessment / Acute Cardiac Problems: 1. Status post cardiac cath with multivessel coronary artery disease as above. CT surgery consulted. 2. Previous CAD s/p stents to RCA and circumflex, FOOT CASTER obtuse branch at [facility] years ago 3. Thoracic aortic aneurysm about 4.4 cm. Follows with cardiology 4. Severe PAD s/p right femoral-popliteal bypass graft 5. Echo 04/24/2021 mildly low LVEF 45 to 30% grade 1 DD. Negative bubble study. 6. Diabetes mellitus 7. History of ischemic stroke later converted to hemorrhagic stroke while on DAPT. 8. Status post fall likely TIA Vs syncope Vs seizure 9. Multifocal intracranial/extracranial atherosclerotic disease Patient Active Problem List: Acute cerebrovascular accident (CVA) ([facility]) Intraparenchymal hemorrhage of brain ([facility]) Acute ischemic stroke ([facility]) Memory impairment NSTEMI (non-ST elevated myocardial infarction) ([facility]) Altered mental status DM (diabetes mellitus), type 2 ([facility]) Discitis of lumbosacral region Hypokalemia Hypomagnesemia History of GI bleed Anticoagulated on heparin CAD, multiple vessel Plan of Treatment: 1. CAD s/p PCI. Not surgical candidate. Continue aspirin, Plavix, statin, LUANA, BB. SL nitro PRN. Long discussion regarding PLAVIX. Script given to pt. Pt and verbalize understanding. Will re-evaluate LAD/diag as needed for further PCI 2. CVA per neurology small acute ischemic infarct. okay to resume Plavi 3. Keep K+ > 4.0, and Mg+ > 2.0. 4. CHF. No signs of fluid overload Continue BB, & LUANA. BP 5. Will sign off. Follow up in 2 weeks [place] [employer] [phone] Images from the original note were not included. Physical Therapy Physical Therapy Cancel Note DATE: 05/02/2021 NAME: Yoel Van : 1955 Patient not seen this date for Physical Therapy due to: Other: Pt/family politely refuses therapy, pt will be going for cardiac stents insertion shortly, awating transport to take him. Comprehensive Nutrition Assessment Type and Reason for Visit: Initial (LOS Day 7) Nutrition Recommendations/Plan: -Continue NPO status -Start diet as able -Recommend glucerna supplements BID as able -Please obtain actual wt as able -Will monitor nutrition progression Nutrition Assessment: Pt admitted d/t a fall w/ acute encephalopathy. Pt currently NPO for PCI today. Prior to NPO status, pt was consuming 75-100% of his meals this week. [place] actual wt loss at this time d/t stated weight - will recommend obtaining actual wt as able. Will monitor for restart of diet and add nutritional supplements as able to compliment po intake. Malnutrition Assessment: Malnutrition Status: Insufficient data Context: Acute Illness Findings of the 6 clinical characteristics of malnutrition: Energy Intake: Mild decrease in energy intake (Comment) Weight Loss: Unable to assess Body Fat Loss: Unable to assess Muscle Mass Loss: Unable to assess Fluid Accumulation: No significant fluid accumulation Fire Protection Engineer Strength: Not Performed Estimated Daily Nutrient Needs: Energy (kcal): 1.2-1.3 ~> 5589-1302 kcals/d; Weight Used for Energy Requirements: Current Protein (g): 1.2-1.3 gm/kg ~> 97-105 gms/d; Weight Used for Protein Requirements: [place] Fluid (ml/day): 2700 mLs/d OR per MD discretion; Method Used for Fluid Requirements: (NCM) Nutrition Related Findings: BM 04/30; glucose 163; meds reviewed Wounds: None Current Nutrition Therapies: Diet NPO Anthropometric Measures: Height: 6' (182.9 cm) Current Body Weight: 223 lb (101.2 kg) (stated) [place] Body Weight: 178 lbs; % [place] Body Weight 125.3 % BMI: 30.2 BMI Categories: Obese Class 1 (BMI 30.0-34.9) Nutrition Diagnosis: Inadequate oral intake related to (procedure today) as evidenced by NPO or clear liquid status due to medical condition Nutrition Interventions: Food and/or Nutrient Delivery: Continue NPO (Restart diet as able; suggest ensure enlive supplements BID as able) Nutrition Education/Counseling: Education not indicated Coordination of Nutrition Care: Continue to monitor while inpatient Goals: Set Pt to meet 75-100% of est'd needs via PO daily Nutrition Monitoring and Evaluation: Food/Nutrient Intake Outcomes: Diet Advancement/Tolerance Physical Signs/Symptoms Outcomes: Biochemical Data, Nutrition Focused Physical Findings, Weight, Skin, GI Status, Fluid Status or Edema Discharge Planning: Too soon to determine Contact: [phone] Images from the original note were not included. [place] [employer] Progress Note Date: 05/02/2021 Patient name: Yoel Van Date of admission: 04/24/2021 9:50 PM Date of : 1955 PCP: Alec Pinzon MD Reason for Admission: NSTEMI (non-ST elevated myocardial infarction) (HCC) [I21.4] CAD, multiple vessel [I25.10] Subjective: Clinical Changes / Abnormalities: Patient seen and examined with present at the bed side. No new acute events overnight. Patient is doing well, has no complaints. Denies chest pain or SOB. States that he slept well and is ready for procedure today. Anxious for DC home. Reviewed vitals, labs, tele, & previous testing. SR on tele. Medications: Scheduled Meds: magnesium sulfate 2,000 mg Intravenous Once clopidogrel 75 mg Oral Daily carvedilol 12.5 mg Oral BID WC aspirin 81 mg Oral Daily lisinopril 40 mg Oral Daily sodium chloride flush 5-40 mL Intravenous 2 times per day insulin lispro 0-12 Units Subcutaneous TID insulin lispro 0-6 Units Subcutaneous Nightly nicotine 1 patch Transdermal Daily sodium chloride flush 5-40 mL Intravenous 2 times per day atorvastatin 40 mg Oral Daily gabapentin 600 mg Oral BID traZODone 200 mg Oral Nightly pantoprazole 40 mg Oral Nightly Continuous Infusions: sodium chloride dextrose sodium chloride heparin (PORCINE) Infusion 15 Units/kg/hr (05/02/21 0310) CBC: Recent Labs 05/01/21512 WBC 7.3 HGB 12.6* PLT 250 BMP: Recent Labs 04/30/21 0527 05/01/21 0513 05/02/21 0547 NA 134* 139 139 K 4.0 4.3 4.0 CL 103 105 106 CO2 19* 20 19* BUN 9 14 11 CREATININE 0.74 0.62* 0.87 GLUCOSE 180* 185* 161* Hepatic: No results for input(s): AST, ALT, ALB, BILITOT, ALKPHOS in the last 72 hours. Troponin: No results for input(s): TROPHS in the last 72 hours. BNP: No results for input(s): BNP in the last 72 hours. Lipids: No results for input(s): CHOL, HDL in the last 72 hours. Invalid input(s): LDLCALCU INR: No results for input(s): INR in the last 72 hours. Objective: Vitals: BP 129/77 Pulse 66 Temp 97.9 F (36.6 C) (Oral) Resp 16 Ht 6' (1.829 m) Wt 223 lb (101.2 kg) SpO2 95% BMI 30.24 kg/m General appearance: alert and cooperative with exam HEENT: Head: Normocephalic, no lesions, without obvious abnormality. Neck: no JVD, trachea midline, no adenopathy Lungs: Clear to auscultation with diminished breath sounds in bases bilat. Room air without distress. Heart: Regular rate and rhythm, s1/s2 auscultated, no murmurs. SR. Abdomen: soft, non-tender, bowel sounds active Extremities: no edema Neurologic: not done 04/28/2021: LMCA: 20% ostial stenosis LAD: Mid area 75%stenosis Distal 80% stenosis D1: proximal 80-90% stenosis LCx: Proximal 90% stenosis RCA: Patent mid stent area with 25% stenosis PDA: proximal 75% stenosis Coronary Tree Dominance: Right LV Analysis LV function assessed as:Normal. Conclusions: Multivessel CAD Preserved LV function Recommendations CV surgery consult for CABG Echo 04/28/2021: Summary Left ventricle is normal in size. Global left ventricular systolic function is mildly reduced. Estimated ejection fraction is 45-50 % . Calculated EF via Bird's method is 46 %. Grade I (mild) left ventricular diastolic dysfunction. Left atrium is mildly dilated. Right atrium is mildly dilated . Negative bubble study, no shunt noted via injection of agitated saline. Aortic valve is sclerotic but opens well.. Trivial to mild mitral regurgitation. Trivial tricuspid regurgitation. Estimated right ventricular systolic pressure is 29 mmHg. Normal aortic root dimension. The ascending aorta is mildly dilated. Assessment / Acute Cardiac Problems: 1. Status post cardiac cath with multivessel coronary artery disease as above. CT surgery consulted. 2. Previous CAD s/p stents to RCA and circumflex, FOOT CASTER obtuse branch at [facility] years ago 3. Thoracic aortic aneurysm about 4.4 cm. Follows with cardiology 4. Severe PAD s/p right femoral-popliteal bypass graft 5. Echo 04/24/2021 mildly low LVEF 45 to 30% grade 1 DD. Negative bubble study. 6. Diabetes mellitus 7. History of ischemic stroke later converted to hemorrhagic stroke while on DAPT. 8. Status post fall likely TIA Vs syncope Vs seizure 9. Multifocal intracranial/extracranial atherosclerotic disease Patient Active Problem List: Acute cerebrovascular accident (CVA) (HCC) Intraparenchymal hemorrhage of brain (HCC) Acute ischemic stroke (HCC) Memory impairment NSTEMI (non-ST elevated myocardial infarction) (HCC) Altered mental status DM (diabetes mellitus), type 2 (HCC) Discitis of lumbosacral region Hypokalemia Hypomagnesemia History of GI bleed Anticoagulated on heparin CAD, multiple vessel Plan of Treatment: 1. S/P cardiac cath. Not surgical candidate. CTS Signed off. Continue aspirin, Plavix, statin, LUANA, BB and heparin drip. Plavix approved by Neurology. 2. CVA per neurology small acute ischemic infarct. okay to resume Plavix and continue IV heparin per neurology. 3. Keep K+ > 4.0, and Mg+ > 2.0. Stable today. 4. LVEF 45-50% per ECHO 04/28/2021. No overt signs of volume overlaod. Continue aspirin, BB, & LUANA. BP stable. 5. Neurology approved for patient to go on intermission coordinator DAPT. 6. Plan for PCI of LCx today. Patient has been NPO since midnight. I have discussed risks (including but not limited to vascular injury, infection, hematoma, contrast induced kidney dysfunction, CVA and IA) with both patient and his . The benefits and alternatives discussed in detail. All questions answered. Patient agrees to proceed. [place] [employer] [phone] Images from the original note were not included. [facility] Internal Medicine Teaching Residency Program Inpatient Daily Progress Note Patient: Yoel Van Date of : 1955 Acct: [id number] Room: Admit date: 04/24/2021 Today's date: 05/02/21 Number of days in the hospital: 7 SUBJECTIVE Admitting Diagnosis: CVA CC: Fall with acute encephalopathy Pt examined at bedside. Chart & results reviewed. Patient is s/p Diagnostic cath on 04/28/21. -multivessel disease; referral for CT evaluation for CABG- No CABG per CTS ECHO on 04/28 shows mild reduced LVEF 45-50% Patient is doing well. He denies chest pain, shortness of breath, dizziness, nausea, vomiting, abdominal pain or dysuria. He reports improvement with lower extremity weakness. Small acute infarct in left thalamus and left posterior limb of internal capsule. Cardiology- Plan for staged PCI today (05/02); PCI of LCx today Neuro- Atorvastatin 40 mg nightly for stroke prevention; Plavix resumed per Neurology in addition to ASA; Following PCI procedure, okay for DAPT from a neurologic standpoint ID- No evidence of acute infection; no acute intervention regarding Osteomyelitis- ID signed off. Neurosurgery- No acute intervention for spinal stenosis ROS: Constitutional: negative for chills, fevers, sweats Respiratory: negative for cough, dyspnea on exertion, hemoptysis, shortness of breath, wheezing Cardiovascular: negative for chest pain, chest pressure/discomfort, lower extremity edema, palpitations Gastrointestinal: negative for abdominal pain, constipation, diarrhea, nausea, vomiting Neurological: negative for dizziness, headache BRIEF HISTORY The patient is a pleasant 65 y.o. male presents with a chief complaint of dizziness and fall at home. The patient has a past medical history of 2 CVA, DM 2 hypertension, CAD status post 3 stents. The patient reported he was to the bathroom and before he could use the bathroom he felt sudden weakness in both his lower extremities and he fell on the bathroom floor, and hit his head. Patient's came to help him get up in the bathroom and helped him sit on the toilet. The patient denies urinary incontinence, tongue biting or seizure-like activity. After the fall the patient reported feeling bilateral lower extremity weakness. The patient's checked his blood sugar after the fall which was 78. The patient had some juice and food. patient's reported mental status changes including continued cigarette after 2 weeks of quitting. Patient rested for 2 to 3 hours after the fall at home and patient's brought him to the ED due to his change of mental status. The ED patient was hemodynamically stable, afebrile, saturating over 95% on room air. Stroke alert was called and neuro was consulted. The patient was combative and cooperative in the ED and subsequently received Ativan 5 mg and Haldol 10 mg. Imaging showed no new acute findings. CTA head and neck showed bilateral carotid bifurcation atherosclerotic plaque resulting in approximately 4 to 40% left and 20% right stenosis of proximal ICAs. CT cervical spine showed mild central canal stenosis secondary to encroachment by disc osteophyte complex. CT abdomen pelvis showed sigmoid colon diverticulosis and severe bilateral iliac arterial atherosclerosis. Troponins 180 --> 175 --> 187 --> 199. EKG showed no significant changes as compared to the previous EKG. Blood sugar was 140. H&H stable, no signs of infection. Electrolytes are within normal limits. OBJECTIVE Vital Signs: BP (!) 113/54 Pulse 67 Temp 97.3 F (36.3 C) (Infrared) Resp 17 Ht 6' (1.829 m) Wt 223 lb (101.2 kg) SpO2 91% BMI 30.24 kg/m Temp (24hrs), Av.8 F (36.6 C), Min:97.3 F (36.3 C), Max:98.4 F (36.9 C) In: 44.4 Out: 2390 [Urine:2390] Physical Exam: Constitutional: This is a well developed, well nourished, 30-34.9 - Obesity Grade I 65 y.o. year old male who is alert, oriented, cooperative and in no apparent distress. Head:normocephalic and atraumatic. EENT: PERRLA. No conjunctival injections. Septum was midline, mucosa was without erythema, exudates or cobblestoning. No thrush was noted. Neck: Supple without thyromegaly. No elevated JVP. Trachea was midline. Respiratory: Chest was symmetrical without dullness to percussion. Breath sounds bilaterally were clear to auscultation. There were no wheezes, rhonchi or rales. There is no intercostal retraction or use of accessory muscles. No egophony noted. Cardiovascular: Regular without murmur, clicks, gallops or rubs. Abdomen: Slightly rounded and soft without organomegaly. No rebound, rigidity or guarding was appreciated. Lymphatic: No lymphadenopathy. Musculoskeletal: Normal curvature of the spine. No gross muscle weakness. Extremities: No lower extremity edema, ulcerations, tenderness, varicosities or erythema. Muscle size, tone and strength are normal. No involuntary movements are noted. Skin: Warm and dry. Good color, turgor and pigmentation. No lesions or scars. No cyanosis or clubbing Neurological/Psychiatric: The patient's general behavior, level of consciousness, thought content and emotional status is normal. Medications: Scheduled Medications: clopidogrel 75 mg Oral Daily carvedilol 12.5 mg Oral BID WC aspirin 81 mg Oral Daily lisinopril 40 mg Oral Daily sodium chloride flush 5-40 mL Intravenous 2 times per day insulin lispro 0-12 Units Subcutaneous TID insulin lispro 0-6 Units Subcutaneous Nightly nicotine 1 patch Transdermal Daily sodium chloride flush 5-40 mL Intravenous 2 times per day atorvastatin 40 mg Oral Daily gabapentin 600 mg Oral BID traZODone 200 mg Oral Nightly pantoprazole 40 mg Oral Nightly Continuous Infusions: sodium chloride dextrose sodium chloride heparin (PORCINE) Infusion 15 Units/kg/hr (05/02/21 0310) PRN Medicationspotassium chloride, 40 mEq, PRN Or potassium alternative oral replacement, 40 mEq, PRN Or potassium chloride, 10 mEq, PRN sodium chloride flush, 5-40 mL, PRN sodium chloride, 25 mL, PRN acetaminophen, 650 mg, Q4H PRN glucose, 15 g, PRN dextrose, 12.5 g, PRN glucagon (rDNA), 1 mg, PRN dextrose, 100 mL/hr, PRN labetalol, 20 mg, Q4H PRN sodium chloride flush, 5-40 mL, PRN sodium chloride, 25 mL, PRN ondansetron, 4 mg, Q8H PRN Or ondansetron, 4 mg, Q6H PRN polyethylene glycol, 17 g, Daily PRN acetaminophen, 650 mg, Q6H PRN Or acetaminophen, 650 mg, Q6H PRN heparin (porcine), 4,000 Units, PRN heparin (porcine), 2,000 Units, PRN nitroGLYCERIN, 0.4 mg, Q5 Min PRN Diagnostic Labs: CBC: Recent Labs 05/01/21 0513 WBC 7.3 RBC 4.10* HGB 12.6* HCT 38.2* MCV 93.2 RDW 14.3 PLT 250 BMP: Recent Labs 04/30/21 0527 05/01/21 0513 05/02/21 0547 NA 134* 139 139 K 4.0 4.3 4.0 CL 103 105 106 CO2 19* 20 19* BUN 9 14 11 CREATININE 0.74 0.62* 0.87 BNP: No results for input(s): BNP in the last 72 hours. PT/INR: No results for input(s): PROTIME, INR in the last 72 hours. APTT: Recent Labs 04/30/21 1902 05/01/21 0155 05/02/21 0547 APTT 55.9* 56.9* 60.3* CARDIAC ENZYMES: No results for input(s): CKMB, CKMBINDEX, TROPONINI in the last 72 hours. Invalid input(s): CKTOTAL;3 FASTING LIPID PANEL: Lab Results Component Value Date CHOL 112 04/26/2021 HDL 25 (L) 04/26/2021 TRIG 181 (H) 04/26/2021 LIVER PROFILE: No results for input(s): AST, ALT, ALB, BILIDIR, BILITOT, ALKPHOS in the last 72 hours. MICROBIOLOGY: Lab Results Component Value Date/Time CULTURE NO GROWTH 6 DAYS 04/25/2021 08:33 PM CULTURE NO GROWTH 6 DAYS 04/25/2021 08:33 PM Imaging: CT ABDOMEN PELVIS WO CONTRAST Additional Contrast? None Result Date: 04/25/2021 1. No acute abnormality of the abdomen or pelvis. 2. Sigmoid colon diverticulosis without evidence of diverticulitis. 3. Bifemoral arterial graft, not adequately evaluated in absence of CT angiographic study. 4. Severe bilateral iliac arterial atherosclerosis. 5. L5/S1 severe bilateral neural foraminal stenosis secondary to encroachment by disc osteophyte complex. CT HEAD WO CONTRAST Result Date: 04/24/2021 No evidence for acute intracranial hemorrhage, territorial infarction or intracranial mass lesion. Chronic lacunar infarction right pacheco radiata. Mild chronic microangiopathic ischemic disease. Mild generalized volume loss. CT CERVICAL SPINE WO CONTRAST Result Date: 04/24/2021 1. No acute abnormality of the cervical spine. 2. C5/C6 moderate, C6/C7 mild central canal stenosis secondary to encroachment by disc osteophyte complex. 3. C3/C4 mild bilateral, C5/C6 moderate bilateral, C6/C7 severe left and moderate right neural foraminal stenosis secondary to encroachment by disc osteophyte complex. MRI CERVICAL SPINE WO CONTRAST Result Date: 04/26/2021 Congenital spinal canal stenosis superimposed moderate diffuse degenerative disc disease Moderate central canal stenosis at C5-C6 and C6-C7 and to slightly lesser extent at C3-C4. Multilevel bilateral neural foraminal stenosis as noted above most severe C3-C4 and C6-C7. MRI LUMBAR SPINE WO CONTRAST Result Date: 04/26/2021 Edema within the endplates at L5-S1 presence of high T2 signal within disc space. These changes are suspicious for acute discitis/osteomyelitis. No epidural abscess or significant paravertebral inflammation is identified. Correlation with C-reactive protein is suggested. Severe bilateral foraminal stenosis at L5-S1. Mild bilateral foraminal stenosis at L4-L5. Borderline congenital spinal canal stenosis. XR SHOULDER LEFT (MIN 2 VIEWS) Result Date: 04/24/2021 No evidence of an acute fracture involving the left shoulder XR CHEST PORTABLE Result Date: 04/24/2021 Marginal inspiration, without evidence of acute cardiopulmonary disease CTA HEAD NECK W CONTRAST Result Date: 04/24/2021 1. Bilateral carotid bifurcation atherosclerotic plaque resulting approximately 40% left and 20% right stenosis of the proximal internal carotid arteries. Finding is compatible with 16-49% stenosis per sonographic NASCET index criteria. 2. Bilateral internal carotid artery cavernous segment scattered atherosclerotic calcification with up to approximately 25% bilateral arterial stenosis. Finding is compatible with 16-49% stenosis per sonographic NASCET index criteria. 3. Bilateral vertebral artery V4 segment atherosclerotic calcification resulting in focal high-grade stenosis of the left vertebral artery in approximately focal 50% stenosis of the right vertebral artery. 4. Left vertebral artery mid cervical segment approximately 70% stenosis secondary to encroachment by atherosclerotic plaque, as discussed above. RECOMMENDATIONS: For clinical suspicion of acute ischemia, recommend MRI brain with diffusion-weighted imaging for further evaluation MRI BRAIN WO CONTRAST Result Date: 04/26/2021 Small acute infarct within the left thalamus and posterior limb of the left internal capsule. Mild chronic microvascular disease within the periventricular white matter. Moderate cerebral atrophy. Susceptibility within the right parietal lobe periventricular white matter which may represent a cavernoma versus old hemorrhage. CATH: 04/28/21 Procedure Procedure Type: Diagnostic procedure: Lt Heart, Coronary Angio, LVgram Complications: - No complication Indications: - Unstable angina - Coronary risk factors - Previous stent placement Conclusions Procedure Summary Multivessel CAD Preserved LV function Recommendations CV surgery consult for CABG ASSESSMENT & PLAN ASSESSMENT / PLAN: Active Problems: Acute ischemic stroke (HCC) NSTEMI (non-ST elevated myocardial infarction) (HCC) Altered mental status DM (diabetes mellitus), type 2 (HCC) Discitis of lumbosacral region Hypokalemia Hypomagnesemia History of GI bleed Anticoagulated on heparin CAD, multiple vessel Resolved Problems: * No resolved hospital problems. * IMPRESSION This is a 65 y.o. male who presented after a fall with acute encephalopathy. Active Problems: Fall with head injury and acute encephalopathy Dx: Acute ischemic stroke -Continue atorvastatin, Plavix is held; patient currently on heparin drip for concern of NSTEMI; avoid heparin bolus per Neurology -Neurology following - Neuro- Atorvastatin 40 mg nightly for stroke prevention; Plavix is okay to resume per Neurology in addition to ASA; Following PCI procedure, okay for DAPT from a neurologic standpoint -Bilateral lower extremity weakness persists but has been improving - Currently on Plavix and ASA NSTEMI (non-ST elevated myocardial infarction) (HCC) Plan: Troponins 180 --> 175 --> 187 --> 199 --> 267. EKG showed no significant changes as compared to the previous EKG. -Patient is s/p Diagnostic cath on 04/28/21. -multivessel disease; referral for CT evaluation for CABG -We will continue Heparin gtt - ECHO shows mild reduced LVEF 45-50% -Patient received 1 dose of Plavix on 04/28 before cath (after Neuro cleared for DAPT for NSTEMI) CTS- patient is high risk for CABG; CTS signed off Cardiology- Plan for staged PCI today (05/02); PCI of LCx today - Patient is NPO for PCI today CAD s/p 3 stent placement - Continue Lipitor, Coreg 12.5; Labetalol 20 mg IV PRN; Nitroglycerin PRN - PCI planned for today Discitis/ osteomyelitis of L5-S1 -ID was consulted-we will monitor and and does not require any acute intervention for now- ID signed off - Neurosurgery- no acute intervention required for discitis -Repeat MRI after 6 weeks as outpatient Type II DM -Blood sugar level controlled. Hold home medication -We will continue medium dose sliding scale insulin DVT ppx: Heparin gtt GI ppx: Protonix PT/OT/SW- Onboard Discharge Planning: application manager consulted, will follow up Gee Parnell MD Internal Medicine Resident, PGY-1 [facility]; [place], [place] 05/02/2021, 7:40 AM Attending Physician Statement I have discussed the care of Yoel Van with the resident team. I have examined the patient myself and taken ros and hpi , including pertinent history and exam findings, with the resident. I have reviewed the burnett elements of all parts of the encounter with the resident. I agree with the assessment, plan and orders as documented by the resident. Active Problems: Acute ischemic stroke (HCC) NSTEMI (non-ST elevated myocardial infarction) (HCC) Altered mental status DM (diabetes mellitus), type 2 (HCC) Discitis of lumbosacral region Hypokalemia Hypomagnesemia History of GI bleed Anticoagulated on heparin CAD, multiple vessel Resolved Problems: * No resolved hospital problems. * for staged PCI, PCI of LCx today Images from the original note were not included. [facility] Internal Medicine Teaching Residency Program Inpatient Daily Progress Note Patient: Yoel Van Date of : 1955 Acct: [id number] Room: Admit date: 04/24/2021 Today's date: 05/01/21 Number of days in the hospital: 6 SUBJECTIVE Admitting Diagnosis: CVA CC: Fall with acute encephalopathy Pt examined at bedside. Chart & results reviewed. Patient is s/p Diagnostic cath on 04/28/21. -multivessel disease; referral for CT evaluation for CABG ECHO on 04/28 shows mild reduced LVEF 45-50% Patient is doing well. He denies chest pain, shortness of breath, dizziness, nausea, vomiting, abdominal pain or dysuria. He reports improvement with lower extremity weakness. Small acute infarct in left thalamus and left posterior limb of internal capsule. - CTS- patient is high risk for CABG; CTS signed off Cardiology- Plan for staged PCI tomorrow (05/02); PCI of LCx tomorrow Neuro- Atorvastatin 40 mg nightly for stroke prevention; Plavix is okay to resume per Neurology in addition to ASA; Following PCI procedure, okay for DAPT from a neurologic standpoint ID- No evidence of acute infection; no acute intervention regarding Osteomyelitis- ID signed off. Neurosurgery- No acute intervention for spinal stenosis ROS: Constitutional: negative for chills, fevers, sweats Respiratory: negative for cough, dyspnea on exertion, hemoptysis, shortness of breath, wheezing Cardiovascular: negative for chest pain, chest pressure/discomfort, lower extremity edema, palpitations Gastrointestinal: negative for abdominal pain, constipation, diarrhea, nausea, vomiting Neurological: negative for dizziness, headache BRIEF HISTORY The patient is a pleasant 65 y.o. male presents with a chief complaint of dizziness and fall at home. The patient has a past medical history of 2 CVA, DM 2 hypertension, CAD status post 3 stents. The patient reported he was to the bathroom and before he could use the bathroom he felt sudden weakness in both his lower extremities and he fell on the bathroom floor, and hit his head. Patient's came to help him get up in the bathroom and helped him sit on the toilet. The patient denies urinary incontinence, tongue biting or seizure-like activity. After the fall the patient reported feeling bilateral lower extremity weakness. The patient's checked his blood sugar after the fall which was 78. The patient had some juice and food. patient's reported mental status changes including continued cigarette after 2 weeks of quitting. Patient rested for 2 to 3 hours after the fall at home and patient's brought him to the ED due to his change of mental status. The ED patient was hemodynamically stable, afebrile, saturating over 95% on room air. Stroke alert was called and neuro was consulted. The patient was combative and cooperative in the ED and subsequently received Ativan 5 mg and Haldol 10 mg. Imaging showed no new acute findings. CTA head and neck showed bilateral carotid bifurcation atherosclerotic plaque resulting in approximately 4 to 40% left and 20% right stenosis of proximal ICAs. CT cervical spine showed mild central canal stenosis secondary to encroachment by disc osteophyte complex. CT abdomen pelvis showed sigmoid colon diverticulosis and severe bilateral iliac arterial atherosclerosis. Troponins 180 --> 175 --> 187 --> 199. EKG showed no significant changes as compared to the previous EKG. Blood sugar was 140. H&H stable, no signs of infection. Electrolytes are within normal limits. OBJECTIVE Vital Signs: BP 131/76 Pulse 75 Temp 98.4 F (36.9 C) (Oral) Resp 16 Ht 6' (1.829 m) Wt 223 lb (101.2 kg) SpO2 93% BMI 30.24 kg/m Temp (24hrs), Av.9 F (36.6 C), Min:97.4 F (36.3 C), Max:98.4 F (36.9 C) In: 448.9 Out: 1939 [Urine:1939] Physical Exam: Constitutional: This is a well developed, well nourished, 30-34.9 - Obesity Grade I 65 y.o. year old male who is alert, oriented, cooperative and in no apparent distress. Head:normocephalic and atraumatic. EENT: PERRLA. No conjunctival injections. Septum was midline, mucosa was without erythema, exudates or cobblestoning. No thrush was noted. Neck: Supple without thyromegaly. No elevated JVP. Trachea was midline. Respiratory: Chest was symmetrical without dullness to percussion. Breath sounds bilaterally were clear to auscultation. There were no wheezes, rhonchi or rales. There is no intercostal retraction or use of accessory muscles. No egophony noted. Cardiovascular: Regular without murmur, clicks, gallops or rubs. Abdomen: Slightly rounded and soft without organomegaly. No rebound, rigidity or guarding was appreciated. Lymphatic: No lymphadenopathy. Musculoskeletal: Normal curvature of the spine. No gross muscle weakness. Extremities: No lower extremity edema, ulcerations, tenderness, varicosities or erythema. Muscle size, tone and strength are normal. No involuntary movements are noted. Skin: Warm and dry. Good color, turgor and pigmentation. No lesions or scars. No cyanosis or clubbing Neurological/Psychiatric: The patient's general behavior, level of consciousness, thought content and emotional status is normal. Medications: Scheduled Medications: clopidogrel 75 mg Oral Daily carvedilol 12.5 mg Oral BID WC aspirin 81 mg Oral Daily lisinopril 40 mg Oral Daily sodium chloride flush 5-40 mL Intravenous 2 times per day insulin lispro 0-12 Units Subcutaneous TID WC insulin lispro 0-6 Units Subcutaneous Nightly nicotine 1 patch Transdermal Daily sodium chloride flush 5-40 mL Intravenous 2 times per day atorvastatin 40 mg Oral Daily gabapentin 600 mg Oral BID traZODone 200 mg Oral Nightly pantoprazole 40 mg Oral Nightly Continuous Infusions: sodium chloride dextrose sodium chloride heparin (PORCINE) Infusion 15 Units/kg/hr (05/01/21 0744) PRN Medicationspotassium chloride, 40 mEq, PRN Or potassium alternative oral replacement, 40 mEq, PRN Or potassium chloride, 10 mEq, PRN sodium chloride flush, 5-40 mL, PRN sodium chloride, 25 mL, PRN acetaminophen, 650 mg, Q4H PRN glucose, 15 g, PRN dextrose, 12.5 g, PRN glucagon (rDNA), 1 mg, PRN dextrose, 100 mL/hr, PRN labetalol, 20 mg, Q4H PRN sodium chloride flush, 5-40 mL, PRN sodium chloride, 25 mL, PRN ondansetron, 4 mg, Q8H PRN Or ondansetron, 4 mg, Q6H PRN polyethylene glycol, 17 g, Daily PRN acetaminophen, 650 mg, Q6H PRN Or acetaminophen, 650 mg, Q6H PRN heparin (porcine), 4,000 Units, PRN heparin (porcine), 2,000 Units, PRN nitroGLYCERIN, 0.4 mg, Q5 Min PRN Diagnostic Labs: CBC: Recent Labs 04/29/2132405/01/21 05 WBC 7.5 7.3 RBC 4.10* 4.10* HGB 12.4* 12.6* HCT 37.7* 38.2* MCV 92.0 93.2 RDW 14.1 14.3 PLT 202 250 BMP: Recent Labs 04/29/2132404/30/21 0505/01/21 0513 NA 138 134* 139 K 3.9 4.0 4.3 CL 106 103 105 CO2 22 19* 20 BUN 11 9 14 CREATININE 0.72 0.74 0.62* BNP: No results for input(s): BNP in the last 72 hours. PT/INR: No results for input(s): PROTIME, INR in the last 72 hours. APTT: Recent Labs 04/30/21 1250 04/30/21 1902 05/01/21 0155 APTT 71.1* 55.9* 56.9* CARDIAC ENZYMES: No results for input(s): CKMB, CKMBINDEX, TROPONINI in the last 72 hours. Invalid input(s): CKTOTAL;3 FASTING LIPID PANEL: Lab Results Component Value Date CHOL 112 04/26/2021 HDL 25 (L) 04/26/2021 TRIG 181 (H) 04/26/2021 LIVER PROFILE: No results for input(s): AST, ALT, ALB, BILIDIR, BILITOT, ALKPHOS in the last 72 hours. MICROBIOLOGY: Lab Results Component Value Date/Time CULTURE NO GROWTH 6 DAYS 04/25/2021 08:33 PM CULTURE NO GROWTH 6 DAYS 04/25/2021 08:33 PM Imaging: CT ABDOMEN PELVIS WO CONTRAST Additional Contrast? None Result Date: 04/25/2021 1. No acute abnormality of the abdomen or pelvis. 2. Sigmoid colon diverticulosis without evidence of diverticulitis. 3. Bifemoral arterial graft, not adequately evaluated in absence of CT angiographic study. 4. Severe bilateral iliac arterial atherosclerosis. 5. L5/S1 severe bilateral neural foraminal stenosis secondary to encroachment by disc osteophyte complex. CT HEAD WO CONTRAST Result Date: 04/24/2021 No evidence for acute intracranial hemorrhage, territorial infarction or intracranial mass lesion. Chronic lacunar infarction right pacheco radiata. Mild chronic microangiopathic ischemic disease. Mild generalized volume loss. CT CERVICAL SPINE WO CONTRAST Result Date: 04/24/2021 1. No acute abnormality of the cervical spine. 2. C5/C6 moderate, C6/C7 mild central canal stenosis secondary to encroachment by disc osteophyte complex. 3. C3/C4 mild bilateral, C5/C6 moderate bilateral, C6/C7 severe left and moderate right neural foraminal stenosis secondary to encroachment by disc osteophyte complex. MRI CERVICAL SPINE WO CONTRAST Result Date: 04/26/2021 Congenital spinal canal stenosis superimposed moderate diffuse degenerative disc disease Moderate central canal stenosis at C5-C6 and C6-C7 and to slightly lesser extent at C3-C4. Multilevel bilateral neural foraminal stenosis as noted above most severe C3-C4 and C6-C7. MRI LUMBAR SPINE WO CONTRAST Result Date: 04/26/2021 Edema within the endplates at L5-S1 presence of high T2 signal within disc space. These changes are suspicious for acute discitis/osteomyelitis. No epidural abscess or significant paravertebral inflammation is identified. Correlation with C-reactive protein is suggested. Severe bilateral foraminal stenosis at L5-S1. Mild bilateral foraminal stenosis at L4-L5. Borderline congenital spinal canal stenosis. XR SHOULDER LEFT (MIN 2 VIEWS) Result Date: 04/24/2021 No evidence of an acute fracture involving the left shoulder XR CHEST PORTABLE Result Date: 04/24/2021 Marginal inspiration, without evidence of acute cardiopulmonary disease CTA HEAD NECK W CONTRAST Result Date: 04/24/2021 1. Bilateral carotid bifurcation atherosclerotic plaque resulting approximately 40% left and 20% right stenosis of the proximal internal carotid arteries. Finding is compatible with 16-49% stenosis per sonographic NASCET index criteria. 2. Bilateral internal carotid artery cavernous segment scattered atherosclerotic calcification with up to approximately 25% bilateral arterial stenosis. Finding is compatible with 16-49% stenosis per sonographic NASCET index criteria. 3. Bilateral vertebral artery V4 segment atherosclerotic calcification resulting in focal high-grade stenosis of the left vertebral artery in approximately focal 50% stenosis of the right vertebral artery. 4. Left vertebral artery mid cervical segment approximately 70% stenosis secondary to encroachment by atherosclerotic plaque, as discussed above. RECOMMENDATIONS: For clinical suspicion of acute ischemia, recommend MRI brain with diffusion-weighted imaging for further evaluation MRI BRAIN WO CONTRAST Result Date: 04/26/2021 Small acute infarct within the left thalamus and posterior limb of the left internal capsule. Mild chronic microvascular disease within the periventricular white matter. Moderate cerebral atrophy. Susceptibility within the right parietal lobe periventricular white matter which may represent a cavernoma versus old hemorrhage. CATH: 04/28/21 Procedure Procedure Type: Diagnostic procedure: Lt Heart, Coronary Angio, LVgram Complications: - No complication Indications: - Unstable angina - Coronary risk factors - Previous stent placement Conclusions Procedure Summary Multivessel CAD Preserved LV function Recommendations CV surgery consult for CABG ASSESSMENT & PLAN ASSESSMENT / PLAN: Active Problems: Acute ischemic stroke (HCC) NSTEMI (non-ST elevated myocardial infarction) (HCC) Altered mental status DM (diabetes mellitus), type 2 (HCC) Discitis of lumbosacral region Hypokalemia Hypomagnesemia History of GI bleed Anticoagulated on heparin CAD, multiple vessel Resolved Problems: * No resolved hospital problems. * IMPRESSION This is a 65 y.o. male who presented after a fall with acute encephalopathy. Active Problems: Fall with head injury and acute encephalopathy Dx: Acute ischemic stroke -Continue atorvastatin, Plavix is held; patient currently on heparin drip for concern of NSTEMI; avoid heparin bolus per Neurology -Neurology following Neuro- Atorvastatin 40 mg nightly for stroke prevention; Plavix is okay to resume per Neurology in addition to ASA; Following PCI procedure, okay for DAPT from a neurologic standpoint -Bilateral lower extremity weakness persists but has been improving NSTEMI (non-ST elevated myocardial infarction) (HCC) Plan: Troponins 180 --> 175 --> 187 --> 199 --> 267. EKG showed no significant changes as compared to the previous EKG. -Patient is s/p Diagnostic cath on 04/28/21. -multivessel disease; referral for CT evaluation for CABG -We will continue Heparin gtt - ECHO shows mild reduced LVEF 45-50% -Patient received 1 dose of Plavix on 04/28 before cath (after Neuro cleared for DAPT for NSTEMI) CTS- patient is high risk for CABG; CTS signed off Cardiology- Plan for staged PCI tomorrow (05/02); PCI of LCx tomorrow CAD s/p 3 stent placement - Continue Lipitor, Coreg 12.5; Labetalol 20 mg IV PRN; Nitroglycerin PRN - PCI planned for tomorrow Discitis/ osteomyelitis of L5-S1 -ID was consulted-we will monitor and and does not require any acute intervention for now- ID signed off - Neurosurgery- no acute intervention required for discitis -Repeat MRI after 6 weeks as outpatient Type II DM -Blood sugar level uncontrolled. Hold home medication -We will continue medium dose sliding scale insulin DVT ppx: Heparin gtt GI ppx: Protonix PT/OT/SW- Onboard Discharge Planning: application manager consulted, will follow up Gee Parnell MD Internal Medicine Resident, PGY-1 [facility]; [place], [place] 05/01/2021, 2:58 PM Attending Physician Statement I have discussed the care of Yoel Van with the resident team. I have examined the patient myself and taken ros and hpi , including pertinent history and exam findings, with the resident. I have reviewed the burnett elements of all parts of the encounter with the resident. I agree with the assessment, plan and orders as documented by the resident. Active Problems: Acute ischemic stroke (HCC) NSTEMI (non-ST elevated myocardial infarction) (HCC) Altered mental status DM (diabetes mellitus), type 2 (HCC) Discitis of lumbosacral region Hypokalemia Hypomagnesemia History of GI bleed Anticoagulated on heparin CAD, multiple vessel Resolved Problems: * No resolved hospital problems. * Plan for staged PCI tomorrow No plan for CABG. Aspirin and Plavix resumed Discharge planning initiated Physical Therapy Facility/Department: [facility] CAR 2 Initial Assessment NAME: Yoel Van : 1955 Date of Service: 05/01/2021 Discharge Recommendations: Further therapy recommended at discharge.The patient should be able to tolerate at least 3 hours of therapy per day over 5 days or 15 hours over 7 days. Chief Complaint Patient presents with Altered Mental Status Yoel Van is a 65 y.o. male with past history of ischemic and hemorrhagic strokes who presents via POV with his after a fall approximately 8 hours prior to arrival. His states that he was on the toilet and fell struck his head and was complaining of shoulder and neck pain, they had to help him up into a wheelchair as his legs were weak and he was unable to ambulate. Throughout the day his legs and arms became progressively more weak, requiring help getting in and out of the vehicle in wheelchair at the grocery store. He usually ambulates at home without assistance. He was using his arms during the day but those also became progressively weak. Complaining of neck pain, let shoulder, and generalized pain. states he is also become more altered and speech more slurred throughout the day. Overall not at his baseline. PT Equipment Recommendations Equipment Needed: No Assessment Body structures, Functions, Activity limitations: Decreased functional mobility ;Decreased high-level IADLs;Decreased ADL status;Decreased endurance;Decreased sensation;Decreased strength;Decreased balance;Decreased safe awareness Assessment: Pt ambulates 30 ft + 50 ft with RW and min A, with standing rest break x5 minutes between bouts of gait. Pt requires mod x2 for bed mobility and min A for transfers with RW. Pt would benefit from intensive therapy to promote endurance, balance, and strengthening. Prognosis: Good Decision Making: Medium Complexity PT Education: Goals;PT Role;Plan of Care Barriers to Learning: none REQUIRES PT FOLLOW UP: Yes Activity Tolerance Activity Tolerance: Patient limited by fatigue;Patient limited by endurance Patient Diagnosis(es): The primary encounter diagnosis was Altered mental status, unspecified altered mental status type. A diagnosis of NSTEMI (non-ST elevated myocardial infarction) (HCC) was also pertinent to this visit. has a past medical history of Cerebral artery occlusion with cerebral infarction (HCC), Diabetes mellitus (HCC), Headache, Hyperlipidemia, and Hypertension. has a past surgical history that includes Rotator cuff repair; Rotator cuff repair; and Cardiac surgery. Restrictions Restrictions/Precautions Restrictions/Precautions: Fall Risk Required Braces or Orthoses?: No Position Activity Restriction Other position/activity restrictions: Up with Assist, CTLS recommendations: none, orthopedic surg note 04/26 Vision/Hearing Vision: Impaired Vision Exceptions: Wears glasses at all times Hearing: Exceptions to WFL Hearing Exceptions: Hard of hearing/hearing concerns Subjective General Patient assessed for rehabilitation services?: Yes Response To Previous Treatment: Not applicable Family / Caregiver Present: Yes ( present) Follows Commands: Within Functional Limits General Comment Comments: Rn and pt agreeable to PT. pt agreeable and pleasant. pt supine in bed at start of eval. Pain Screening Patient Currently in Pain: No Pain Assessment Pain Assessment: 0-10 Pain Level: 0 Vital Signs Patient Currently in Pain: No Orientation Orientation Overall Orientation Status: Within Functional Limits Social/Functional History Social/Functional History Lives With: Spouse Type of Home: Apartment Home Layout: One level Home Access: Level entry Bathroom Shower/Tub: Walk-in shower Bathroom Toilet: Standard Bathroom Equipment: Shower chair Home Equipment: Rolling walker, Wheelchair-manual (does not use AD at baseline) Receives Help From: Family ( and grandson) ADL Assistance: Needs assistance Bath: Minimal assistance (for transfer out of tub only d/t lack of GBs) Dressing: Modified independent Grooming: Modified independent Feeding: Modified independent Toileting: Independent Homemaking Responsibilities: No ( completes all IADL tasks) Ambulation Assistance: Independent Transfer Assistance: Independent Active Forest Scientist: No Patient's Forest Scientist Info: does all driving 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 Leisure & Hobbies: Fishing IADL Comments: is home at all times and able to provide assistance PRN Cognition Cognition Overall Cognitive Status: Exceptions Arousal/Alertness: Delayed responses to stimuli Following Commands: Follows one step commands with repetition;Follows multistep commands with increased time;Follows multistep commands with repitition;Follows one step commands with increased time Attention Span: Attends with cues to redirect Safety Judgement: Decreased awareness of need for assistance;Decreased awareness of need for safety Problem Solving: Assistance required to generate solutions;Assistance required to identify errors made;Assistance required to implement solutions;Assistance required to correct errors made Insights: Decreased awareness of deficits Initiation: Requires cues for some Cognition Comment: Pt very motivated, but does require cues to not over work himself and maintain all safety precautions Objective Joint Mobility Spine: WFL ROM RLE: WFL ROM LLE: WFL ROM RUE: AROM 90 deg shoulder flexion, see OT note for details ROM LUE: AROM 90 deg shoulder flexion, see OT note for details Strength RLE Strength RLE: WFL Strength LLE Strength LLE: WFL Strength RUE Strength RUE: WFL Strength LUE Strength LUE: WFL Tone RLE RLE Tone: Normotonic Tone LLE LLE Tone: Normotonic Motor Control Gross Motor?: WFL Sensation Overall Sensation Status: Impaired (n/t of B feet) Bed mobility Supine to Sit: 2 Person assistance;Moderate assistance (Req mod A x2 for trunk progression; pt progressed legs at mod I) Scooting: Modified independent Comment: HOB elevated Transfers Sit to Stand: Minimal Assistance Stand to sit: Minimal Assistance Comment: RW for UE support, cues for hand placement with good return Ambulation Ambulation?: Yes More Ambulation?: No Ambulation 1 Surface: level tile Device: Rolling Walker Assistance: Minimal assistance Gait Deviations: Slow [place];Decreased step length;Decreased step height Distance: 30 ft + 50 ft Comments: Pt amb 30 ft, then stands at bathroom sink x5 minutes with OT, then complete 50 more ft of gait. Pt does have decreased balance req min A t/o, cues to maintain DAMON inside walker Stairs/Curb Stairs?: No Balance Posture: Fair Sitting - Static: Good Sitting - Dynamic: Good;- Standing - Static: Fair Standing - Dynamic: Fair;- Comments: Assessed with RW Plan Plan Times per week: 6-7x Current Treatment Recommendations: Transfer Training, Strengthening, Endurance Training, Neuromuscular Re-education, Patient/Caregiver Education & Training, ADL/Self-care Training, Equipment Evaluation, Education, & procurement, Balance Training, Home Exercise Program, Functional Mobility Training, Safety Education & Training, Gait Training Safety Devices Type of devices: Gait belt, Call light within reach, All fall risk precautions in place, Left in chair AM-PAC Score AM-PAC Inpatient Mobility Raw Score : 16 (05/01/211205) AM-PAC Inpatient T-Scale Score : 40.78 (05/01/211205) Mobility Inpatient CMS 0-100% Score: 54.16 (05/01/211205) Mobility Inpatient CMS G-Code Modifier : CK (05/01/211205) Goals Short term goals Time Frame for Short term goals: 14 visits Short term goal 1: Complete bed mobility with SBA Short term goal 2: Complete transfers wtih SBA and RW Short term goal 3: Complete 300 ft of gait with SBA and RW Short term goal 4: Participate in 30 minutes of therapy to promote endurance Therapy Time Individual Concurrent Group Co-treatment Time In 951 Time Out 1041 Minutes 49 Timed Code Treatment Minutes: 23 Minutes Estefani Li PT Images from the original note were not included. [place]ie Senior Energy Analyst Progress Note Date: 05/01/2021 Patient name: Yoel Van Date of admission: 04/24/2021 9:50 PM Date of : 1955 PCP: Alec Pinzon MD Reason for Admission: NSTEMI (non-ST elevated myocardial infarction) (HCC) [I21.4] CAD, multiple vessel [I25.10] Subjective: Clinical Changes / Abnormalities: Patient seen and examined with present at the bed side. No new acute events overnight. Patient is doing well, has no complaints. Denies chest pain or SOB. Reviewed vitals, labs, tele, & previous testing. SR on tele. Medications: Scheduled Meds: carvedilol 12.5 mg Oral BID WC aspirin 81 mg Oral Daily lisinopril 40 mg Oral Daily sodium chloride flush 5-40 mL Intravenous 2 times per day insulin lispro 0-12 Units Subcutaneous TID WC insulin lispro 0-6 Units Subcutaneous Nightly nicotine 1 patch Transdermal Daily sodium chloride flush 5-40 mL Intravenous 2 times per day atorvastatin 40 mg Oral Daily gabapentin 600 mg Oral BID traZODone 200 mg Oral Nightly pantoprazole 40 mg Oral Nightly Continuous Infusions: sodium chloride dextrose sodium chloride heparin (PORCINE) Infusion 15 Units/kg/hr (05/01/21 0744) CBC: Recent Labs 04/29/2132405/01/21 0513 WBC 7.5 7.3 HGB 12.4* 12.6* PLT 202 250 BMP: Recent Labs 04/29/2132404/30/21 0527 05/01/21 05 NA 138 134* 139 K 3.9 4.0 4.3 CL 106 103 105 CO2 22 19* 20 BUN 11 9 14 CREATININE 0.72 0.74 0.62* GLUCOSE 172* 180* 185* Hepatic: No results for input(s): AST, ALT, ALB, BILITOT, ALKPHOS in the last 72 hours. Troponin: No results for input(s): TROPHS in the last 72 hours. BNP: No results for input(s): BNP in the last 72 hours. Lipids: No results for input(s): CHOL, HDL in the last 72 hours. Invalid input(s): LDLCALCU INR: No results for input(s): INR in the last 72 hours. Objective: Vitals: BP (!) 144/67 Pulse 68 Temp 97.5 F (36.4 C) (Temporal) Resp 13 Ht 6' (1.829 m) Wt 223 lb (101.2 kg) SpO2 95% BMI 30.24 kg/m General appearance: alert and cooperative with exam HEENT: Head: Normocephalic, no lesions, without obvious abnormality. Neck: no JVD, trachea midline, no adenopathy Lungs: Clear to auscultation with diminished breath sounds in bases bilat. Room air without distress. Heart: Regular rate and rhythm, s1/s2 auscultated, no murmurs. SR. No cath site complications. Abdomen: soft, non-tender, bowel sounds active Extremities: no edema Neurologic: not done 04/28/2021: LMCA: 20% ostial stenosis LAD: Mid area 75%stenosis Distal 80% stenosis D1: proximal 80-90% stenosis LCx: Proximal 90% stenosis RCA: Patent mid stent area with 25% stenosis PDA: proximal 75% stenosis Coronary Tree Dominance: Right LV Analysis LV function assessed as:Normal. Conclusions: Multivessel CAD Preserved LV function Recommendations CV surgery consult for CABG Echo 04/28/2021: Summary Left ventricle is normal in size. Global left ventricular systolic function is mildly reduced. Estimated ejection fraction is 45-50 % . Calculated EF via Bird's method is 46 %. Grade I (mild) left ventricular diastolic dysfunction. Left atrium is mildly dilated. Right atrium is mildly dilated . Negative bubble study, no shunt noted via injection of agitated saline. Aortic valve is sclerotic but opens well.. Trivial to mild mitral regurgitation. Trivial tricuspid regurgitation. Estimated right ventricular systolic pressure is 29 mmHg. Normal aortic root dimension. The ascending aorta is mildly dilated. Assessment / Acute Cardiac Problems: 1. Status post cardiac cath with multivessel coronary artery disease as above. CT surgery consulted. 2. Previous CAD s/p stents to RCA and circumflex, FOOT CASTER obtuse branch at [facility] years ago 3. Thoracic aortic aneurysm about 4.4 cm. Follows with cardiology 4. Severe PAD s/p right femoral-popliteal bypass graft 5. Echo 04/24/2021 mildly low LVEF 45 to 30% grade 1 DD. Negative bubble study. 6. Diabetes mellitus 7. History of ischemic stroke later converted to hemorrhagic stroke while on DAPT. 8. Status post fall likely TIA Vs syncope Vs seizure 9. Multifocal intracranial/extracranial atherosclerotic disease Patient Active Problem List: Acute cerebrovascular accident (CVA) (HCC) Intraparenchymal hemorrhage of brain (HCC) Acute ischemic stroke (HCC) Memory impairment NSTEMI (non-ST elevated myocardial infarction) (HCC) Altered mental status DM (diabetes mellitus), type 2 (HCC) Discitis of lumbosacral region Hypokalemia Hypomagnesemia History of GI bleed Anticoagulated on heparin CAD, multiple vessel Plan of Treatment: 1. S/P cardiac cath. Continue aspirin, statin, LUANA, BB and heparin drip. Plavix was on hold for CTS work up. CTS signed off. Will resume Plavix if approved by Neurology. Patient remains on heparin drip at this time. 2. CVA per neurology small acute ischemic infarct. okay to continue IV heparin per neurology. 3. Keep K+ > 4.0, and Mg+ > 2.0 4. LVEF 45-50% per ECHO 04/28/2021. No overt signs of volume overlaod. Continue aspirin, BB, & LUANA. BP stable. 5. Will need neurology approval for patient to go on shelter DAPT prior to proceeding with high risk PCI. 6. If okay will plan for PCI of LCx tomorrow per Dr. Norton review of films and plan for staged approach. Patient and his were updated on a possible staged approach and they are agreeable with the plan. 7. Will make NPO after midnight. [place] Senior Energy Analyst [phone] Images from the original note were not included. NEUROLOGY INPATIENT PROGRESS NOTE 05/01/2021 Current Exam: Chart reviewed. Discussed with RN. Patient has no new complaints today. Does not feel as though he has any new deficit with his acute stroke. He has been able to get up with PT. Plan for PCI with cardiology tomorrow per RN. Brief History: Yoel Van is a 65 y.o. male with H/O DM, HLD, HTN, who was admitted on 04/24/2021 with altered mentation post fall after falling off of a toilet seat. He denied loss of consciousness with the event. Reported after the fall he noticed left lower extremity weakness. Vitals on admit 170/96. He had a cardiac cath revealing multivessel disease and has been on IV heparin. MRI brain showing a small acute infarct in the left thalamus and left posterior limb of the internal capsule. He was started on ASA 81mg daily, Plavix 75 mg daily along with Lipitor 40 mg nightly for secondary stroke prevention; Plavix later held in preparation for possible CABG but was felt to not be a candidate by CTS. CT cervical spine was also done showing spinal stenosis for which neurosurgery was consulted. No current facility-administered medications on file prior to encounter. Current Outpatient Medications on File Prior to Encounter Medication Sig Dispense Refill varenicline (CHANTIX STARTING MONTH RYNE) 0.5 MG X 11 & 1 MG X 42 tablet Chantix Starting Month Box 0.5 mg (11)-1 mg (42) tablets in dose pack diclofenac sodium 1 % GEL APPLY TO THE AFFECTED AREA(S) FOUR TIMES DAILY NEEDED (TRANSDERMALLY) clopidogrel (PLAVIX) 75 MG tablet clopidogrel 75 mg tablet pioglitazone (ACTOS) 30 MG tablet Take 30 mg by mouth daily AMITRIPTYLINE HCL PO Take 150 mg by mouth Carvedilol (COREG PO) Take 37.5 mg by mouth 2 times daily gabapentin (NEURONTIN) 600 MG tablet Take 600 mg by mouth 2 times daily. glipiZIDE (GLUCOTROL XL) 10 MG extended release tablet Take 10 mg by mouth daily SITagliptin (JANUVIA) 100 MG tablet Take 100 mg by mouth daily atorvastatin (LIPITOR) 40 MG tablet Take 40 mg by mouth daily lisinopril (PRINIVIL;ZESTRIL) 40 MG tablet Take 40 mg by mouth daily metFORMIN (GLUCOPHAGE) 1000 MG tablet Take 1,000 mg by mouth 2 times daily (with meals) nitroGLYCERIN (NITROSTAT) 0.[address] 0.4 mg under the tongue every 5 minutes as needed for Chest pain up to max of 3 total doses. If no relief after 1 dose, call 911. oxyCODONE-acetaminophen (PERCOCET) 5-325 MG per tablet Take 2 tablets by mouth every 4 hours as needed for Pain. Pantoprazole Sodium (PROTONIX PO) Take 80 mg by mouth nightly TRAZODONE HCL PO Take 200 mg of ampicillin by mouth nightly Allergies: Yoel Van has No Known Allergies. Past Medical History: Diagnosis Date Cerebral artery occlusion with cerebral infarction (HCC) Diabetes mellitus (HCC) Headache Hyperlipidemia Hypertension Past Surgical History: Procedure Laterality Date CARDIAC SURGERY ROTATOR CUFF REPAIR ROTATOR CUFF REPAIR Social History: Yoel Van reports that he has been smoking cigarettes. He has a 22.50 pack-year smoking history. He has never used smokeless tobacco. He reports previous alcohol use. He reports that he does not use drugs. Family History Problem Relation Age of Onset Heart Disease Mother Stroke Mother Cancer Father lung Cancer Sister Cancer Brother throat Cancer Maternal Grandmother breast Alcohol Abuse Maternal Grandfather Other Paternal Grandmother leukemia Heart Attack Paternal Grandfather Objective: BP (!) 144/67 Pulse 68 Temp 97.5 F (36.4 C) (Temporal) Resp 13 Ht 6' (1.829 m) Wt 223 lb (101.2 kg) SpO2 95% BMI 30.24 kg/m Blood pressure range: Systolic (24hrs), Av , Min:113 , Max:144 ; Diastolic (24hrs), Av, Min:66, Max:84 Review of Systems: Constitutional Negative for fever and chills HEENT Negative for ear discharge, ear pain, nosebleed Eyes Negative for photophobia, pain and discharge Respiratory Negative for hemoptysis and sputum Cardiovascular Negative for orthopnea, claudication and PND Gastrointestinal Negative for abdominal pain, diarrhea, blood in stool Musculoskeletal Negative for joint pain, negative for myalgia Skin Negative for rash or itching Endo/heme/allergies Negative for polydipsia, environmental allergy Psychiatric/behavioral Negative for suicidal ideation. Patient is not anxious NEUROLOGIC EXAMINATION GENERAL Appears comfortable and in no distress HEENT NC/ AT NECK Supple MENTAL STATUS: Alert, oriented, intact memory, no confusion, normal speech, normal language, no hallucination or delusion CRANIAL NERVES: II - Visual alfaro intact to confrontation III,IV, - EOMs full, no afferent defect, no SOCORRO, no ptosis V - Normal facial sensation VII - Normal facial symmetry VIII - Intact hearing IX,X - Symmetrical palate XI - Symmetrical shoulder shrug XII - Midline tongue, no atrophy MOTOR FUNCTION: significant for good strength of grade 5/5 in bilateral proximal and distal muscle groups of both upper and lower extremities with normal bulk, normal tone and no involuntary movements, no tremor SENSORY FUNCTION: Decreased sensation BLE distal to knee CEREBELLAR FUNCTION: Intact fine motor control over upper limbs REFLEX FUNCTION: Decreased KJ, no perverted reflex, no Babinski sign STATION and GAIT Not tested Data: Lab Results: CBC: Recent Labs 04/29/21 03205/01/21 0513 WBC 7.5 7.3 HGB 12.4* 12.6* PLT 202 250 BMP: Recent Labs 04/29/21 0325 04/30/21 0527 05/01/21 0513 NA 138 134* 139 K 3.9 4.0 4.3 CL 106 103 105 CO2 22 19* 20 BUN 11 9 14 CREATININE 0.72 0.74 0.62* GLUCOSE 172* 180* 185* Lab Results Component Value Date CHOL 112 04/26/2021 LDLCHOLESTEROL 51 04/26/2021 HDL 25 (L) 04/26/2021 TRIG 181 (H) 04/26/2021 TSH 1.04 04/25/2021 INR 1.0 04/24/2021 LABA1C 7.5 (H) 04/25/2021 [id number] 594 04/25/2021 Diagnostic data reviewed: CT HEAD (04/24/21) - No evidence for acute intracranial hemorrhage, territorial infarction or intracranial mass lesion. Chronic lacunar infarction right pacheco radiata. Mild chronic microangiopathic ischemic disease. Mild generalized volume loss. CTA HEAD AND NECK (04/24/21) - 1. Bilateral carotid bifurcation atherosclerotic plaque resulting approximately 40% left and 20% right stenosis of the proximal internal carotid arteries. Finding is compatible with 16-49% stenosis per sonographic NASCET index criteria. 2. Bilateral internal carotid artery cavernous segment scattered atherosclerotic calcification with up to approximately 25% bilateral arterial stenosis. Finding is compatible with 16-49% stenosis per sonographic NASCET index criteria. 3. Bilateral vertebral artery V4 segment atherosclerotic calcification resulting in focal high-grade stenosis of the left vertebral artery in approximately focal 50% stenosis of the right vertebral artery. 4. Left vertebral artery mid cervical segment approximately 70% stenosis secondary to encroachment by atherosclerotic plaque, as discussed above. MRI BRAIN (04/26/21) - Small acute infarct within the left thalamus and posterior limb of the left internal capsule. Mild chronic microvascular disease within the periventricular white matter. Moderate cerebral atrophy. Susceptibility within the right parietal lobe periventricular white matter which may represent a cavernoma versus old hemorrhage. CT CERVICAL SPINE (04/24/21) - 1. No acute abnormality of the cervical spine. 2. C5/C6 moderate, C6/C7 mild central canal stenosis secondary to encroachment by disc osteophyte complex. 3. C3/C4 mild bilateral, C5/C6 moderate bilateral, C6/C7 severe left and moderate right neural foraminal stenosis secondary to encroachment by disc osteophyte complex. MRI CERVICAL SPINE (04/26/21) - Congenital spinal canal stenosis superimposed moderate diffuse degenerative disc disease Moderate central canal stenosis at C5-C6 and C6-C7 and to slightly lesser extent at C3-C4. Multilevel bilateral neural foraminal stenosis as noted above most severe C3-C4 and C6-C7. MRI LUMBAR SPINE (04/26/21) - Edema within the endplates at L5-S1 presence of high T2 signal within disc space. These changes are suspicious for acute discitis/osteomyelitis. No epidural abscess or significant paravertebral inflammation is identified. Correlation with C-reactive protein is suggested. Severe bilateral foraminal stenosis at L5-S1. Mild bilateral foraminal stenosis at L4-L5. Borderline congenital spinal canal stenosis. ECHO (04/24/21) - Left ventricle is normal in size. Global left ventricular systolic function is mildly reduced. Estimated ejection fraction is 45-50 % . Calculated EF via Bird's method is 46 %. Grade I (mild) left ventricular diastolic dysfunction. Left atrium is mildly dilated. Right atrium is mildly dilated . Negative bubble study, no shunt noted via injection of agitated saline. Aortic valve is sclerotic but opens well.. Trivial to mild mitral regurgitation. Trivial tricuspid regurgitation. Estimated right ventricular systolic pressure is 29 mmHg. Normal aortic root dimension. The ascending aorta is mildly dilated. EEG (04/25/21) - This EEG was abnormal. Disorganized and slow background suggested mild to moderate encephalopathy of non specific etiology. Impression: -Acute encephalopathy, improved -Acute left thalamic ischemic stroke along with capsular ischemic stroke -Multivessel CAD -Cervical spondylosis with spinal stenosis Plan: -Patient continues on aspirin and heparin drip at this time; Plavix has been held. Discussed with patient and at the bedside the risk of hemorrhagic transformation in the area of stroke given that patient is currently taking ASA and on a Heparin drip. If benefit of DAPT in addition to heparin is felt to be necessary from cardiac standpoint prior to surgery, okay to resume Plavix in addition to aspirin. Following PCI procedure, okay for DAPT from a neurologic standpoint -If any changes in neurologic status repeat CT head without contrast stat -Neurosurgery was consulted for spine imaging findings; no acute surgical intervention -PT/OT -We will follow Please note that this note was generated using a voice recognition dictation software. Although every effort was made to ensure the accuracy of this automated directory assistance operator, some errors in directory assistance operator may have occurred. Associated attestation - Elisa Larsen MD - 05/01/2021 7:44 PM EDT Attending Physician Statement I have discussed the case of Yoel Van including pertinent history and exam findings with the resident/ PRIMARY SUBSTANCE ABUSE COUNSELOR. I have seen and examined the patient and the burnett elements of the encounter have been performed by me. I agree with the assessment, plan and orders as documented by the resident or PRIMARY SUBSTANCE ABUSE COUNSELOR with changes made to the note. Briefly, this is a 65 y.o. male with hx of was admitted on 04/24/2021 with altered mentation post fall. Patient fell down off of toilet seat. Denied loss of consciousness. After the fall patient had weakness in left lower extremity. Vitals on admit 178/96. Troponins were elevated at 125., Had cardiac catheterization revealing multivessel disease. Patient has been on IV heparin. MRI brain showed small acute infarct in left thalamus and left posterior limb of internal capsule. Patient is initiated on Plavix 75 mg daily along with atorvastatin 40 mg nightly for stroke prevention. CT cervical spine demonstrated spinal stenosis for which neurosurgery consulted. BP 135/75 Pulse 70 Temp 97.8 F (36.6 C) (Oral) Resp 16 Ht 6' (1.829 m) Wt 223 lb (101.2 kg) SpO2 95% BMI 30.24 kg/m Blood pressure range: Systolic (24hrs), Av , Min:117 , Max:144 ; Diastolic (24hrs), Av, Min:59, Max:86 Impression and Plan: Mr. Yoel Van is a 65 y.o. male with Acute left thalamic & left internal capsular ischemic stroke; okay to keep him on dual antiplatelet therapy along with IV heparin with upcoming PCI procedure as per cardiology; as patient and his at bedside clearly understood about the risks and benefits of this; they also understood about the risk of hemorrhagic transformation; will continue close monitoring; should he have any neurologic status changes; will get stat CT head (without contrast). Multivessel CAD; plan for PCI rather than CABG as per earlier plan. Elevated troponins; abnormal cardiac cath; multivessel coronary artery disease; on IV heparinization. Risk of hemorrhagic transformation of stroke discussed with patient and his at bedside. Any changes in neurologic status; CT head without contrast to be repeated ALLY. Cervical spondylosis with spinal stenosis; neurosurgery consulted; no acute intervention needed Comorbid conditions include hypertension, hyperlipidemia, diabetes, CAD. We will follow with you. Elisa Larsen MD 05/01/2021 7:41 PM [facility] Neurology IN-PATIENT SERVICE [facility] HISTORY AND PHYSICAL EXAMINATION Date: 04/30/2021 Patient name: Yoel Van Date of admission: 04/24/2021 9:50 PM Account: [id number] Date of : 1955 PCP: Alec Pinzon MD Room: [facility]5/1015- Code Status: Full Code Chief Complaint: Chief Complaint Patient presents with Altered Mental Status History Obtained From: Patient was seen and evaluated the bedside. No changes overnight He was alert and oriented x3. He denied any chest pain. Patient had power 4/5 with decreased sensation on the right lower extremity. Patient also had unsteady gait and when he stands up he leans on the right side. Postcardiac catheterization patient was found to have multivessel disease and cardiothoracic surgery was consulted. History of Present Illness: 65 y.o. male who presents after falling while on the toilet. Patient has a medical history of type 2 diabetes, essential hypertension, obesity, hyperlipidemia right-sided coronary radiata infarction in Aug 2019, and right parietal hemorrhage in 2019 while being treated with DAPT. Currently patient takes Plavix monotherapy 75 mg. Patient reportedly lost consciousness while on the toilet and fell onto his right side, hitting his head. Patient's was able to help the patient back up, however they noticed lower extremity weakness at that time. Patient had no difficulty emptying his bowels but had progressively worsening lower extremity weakness as the day went on. Patient had to use a walker to ambulate, usually does not use any assistive devices. On presentation to the ER, patient is wearing a C-collar and has bilateral lower extremity weakness and numbness. He does not react to noxious stimuli applied to either upper or lower extremities. He is unable to tell me the month and his age, but is complaining of left-sided shoulder pain and a runny nose. He is also unable to follow two-step commands, and speech is slightly slurred according to his . Blood pressures 178/96. Troponin elevated 125>180. CT head showed no evidence for acute intracranial hemorrhage, infarction or mass lesion. It did demonstrate chronic lacunar infarction in the right pacheco radiata and mild chronic microangiopathic ischemic disease. CTA head and neck did not reveal any significant stenosis correlating with patient's symptoms. X-ray shoulder and CT cervical spine did not show any acute abnormalities. Patient's exam is variable. Upon reevaluation, patient's strength is 5/5 with no deficits. Past Medical History: Past Medical History: Diagnosis Date Cerebral artery occlusion with cerebral infarction (HCC) Diabetes mellitus (HCC) Headache Hyperlipidemia Hypertension Past Surgical History: Past Surgical History: Procedure Laterality Date CARDIAC SURGERY ROTATOR CUFF REPAIR ROTATOR CUFF REPAIR Medications Prior to Admission: Prior to Admission medications Medication Sig Start Date End Date Taking? Authorizing Provider varenicline (CHANTIX STARTING MONTH RYNE) 0.5 MG X 11 & 1 MG X 42 tablet Chantix Starting Month Box 0.5 mg (11)-1 mg (42) tablets in dose pack Historical Provider, diclofenac sodium 1 % GEL APPLY TO THE AFFECTED AREA(S) FOUR TIMES DAILY NEEDED (TRANSDERMALLY) 12/07/19 Historical Provider, clopidogrel (PLAVIX) 75 MG tablet clopidogrel 75 mg tablet Historical Provider, pioglitazone (ACTOS) 30 MG tablet Take 30 mg by mouth daily Historical Provider, AMITRIPTYLINE HCL PO Take 150 mg by mouth Historical Provider, Carvedilol (COREG PO) Take 37.5 mg by mouth 2 times daily Historical Provider, gabapentin (NEURONTIN) 600 MG tablet Take 600 mg by mouth 2 times daily. Historical Provider, glipiZIDE (GLUCOTROL XL) 10 MG extended release tablet Take 10 mg by mouth daily Historical Provider, SITagliptin (JANUVIA) 100 MG tablet Take 100 mg by mouth daily Historical Provider, atorvastatin (LIPITOR) 40 MG tablet Take 40 mg by mouth daily Historical Provider, lisinopril (PRINIVIL;ZESTRIL) 40 MG tablet Take 40 mg by mouth daily Historical Provider, metFORMIN (GLUCOPHAGE) 1000 MG tablet Take 1,000 mg by mouth 2 times daily (with meals) Historical Provider, nitroGLYCERIN (NITROSTAT) 0.[address] 0.4 mg under the tongue every 5 minutes as needed for Chest pain up to max of 3 total doses. If no relief after 1 dose, call 911. Historical Provider, oxyCODONE-acetaminophen (PERCOCET) 5-325 MG per tablet Take 2 tablets by mouth every 4 hours as needed for Pain. Historical Provider, Pantoprazole Sodium (PROTONIX PO) Take 80 mg by mouth nightly Historical Provider, TRAZODONE HCL PO Take 200 mg of ampicillin by mouth nightly Historical Provider, Allergies: Patient has no known allergies. Social History: Tobacco: reports that he has been smoking cigarettes. He has a 22.50 pack-year smoking history. He has never used smokeless tobacco. Alcohol: reports previous alcohol use. Drug Use: reports no history of drug use. Family History: Family History Problem Relation Age of Onset Heart Disease Mother Stroke Mother Cancer Father lung Cancer Sister Cancer Brother throat Cancer Maternal Grandmother breast Alcohol Abuse Maternal Grandfather Other Paternal Grandmother leukemia Heart Attack Paternal Grandfather Review of Systems: Review of Systems Constitutional: Negative for fatigue. HENT: Negative for ear discharge, nosebleeds and sinus pressure. Eyes: Negative for pain. Respiratory: Negative for chest tightness and shortness of breath. Cardiovascular: Negative for chest pain, palpitations and leg swelling. Gastrointestinal: Negative for abdominal distention, diarrhea and vomiting. Endocrine: Negative for heat intolerance and polyphagia. Genitourinary: Negative for enuresis, hematuria and scrotal swelling. Musculoskeletal: Positive for gait problem. Negative for neck pain. Allergic/Immunologic: Negative for environmental allergies. Neurological: Negative for tremors, seizures, facial asymmetry, speech difficulty, weakness, numbness and headaches. Psychiatric/Behavioral: Negative for dysphoric mood and self-injury. Physical Exam: BP (!) 160/88 Pulse 64 Temp 97.5 F (36.4 C) (Oral) Resp 18 Ht 6' (1.829 m) Wt 223 lb (101.2 kg) SpO2 97% BMI 30.24 kg/m Temp (24hrs), Av.9 F (36.6 C), Min:97.5 F (36.4 C), Max:98.4 F (36.9 C) Recent Labs 04/29/21 0800 04/29/21 1124 04/29/21 1611 04/29/212009 POCGLU 163* 186* 200* 232* Intake/Output Summary (Last 24 hours) at 04/30/2021 0848 Last data filed at 04/30/2021 0300 Gross per 24 hour Intake Output 725 ml Net -725 ml Neurologic Exam Mental Status Oriented to person, place, and time. Registration: recalls 1 of 3 objects. Follows 3 step commands. Attention: decreased. Concentration: normal. Level of consciousness: alert Knowledge: good and consistent with education. Cranial Nerves Cranial nerves II through XII intact. Motor Exam Muscle bulk: normal Strength Right neck flexion: 5/5 Left neck flexion: 5/5 Right neck extension: 5/5 Left neck extension: 5/5 Right deltoid: 5/5 Left deltoid: 5/5 Right biceps: 5/5 Left biceps: 5/5 Right triceps: 5/5 Left triceps: 5/5 Right wrist flexion: 5/5 Left wrist flexion: 5/5 Right wrist extension: 5/5 Left wrist extension: 5/5 Right interossei: 5/5 Left interossei: 5/5 Right abdominals: 5/5 Left abdominals: 5/5 Right iliopsoas: 5/5 Left iliopsoas: 5/5 Right quadriceps: 5/5 Left quadriceps: 5/5 Right hamstrin/5 Left hamstrin/5 Right glutei: 5/5 Left glutei: 5/5 Right anterior tibial: 5/5 Left anterior tibial: 5/5 Right posterior tibial: 5/5 Left posterior tibial: 5/5 Right peroneal: 5/5 Left peroneal: 5/5 Right gastroc: 5/5 Left gastroc: 5/5 Sensory Exam Light touch normal. Gait, Coordination, and Reflexes Gait Gait: normal Tremor Resting tremor: absent Reflexes Right brachioradialis: 2+ Left brachioradialis: 2+ Right biceps: 2+ Left biceps: 2+ Right triceps: 2+ Left triceps: 2+ Right patellar: 2+ Left patellar: 2+ Right achilles: 2+ Left achilles: 2+ Right script artist: 2+ Left script artist: 2+ Investigations: Laboratory Testing: Recent Results (from the past 24 hour(s)) POC Glucose Fingerstick Collection Time: 04/29/21 11:24 AM Result Value Ref Range POC Glucose 186 (H) 75 - 110 mg/dL APTT Collection Time: 04/29/21 12:08 PM Result Value Ref Range PTT 46.3 (H) 20.5 - 30.5 sec POC Glucose Fingerstick Collection Time: 04/29/21 4:11 PM Result Value Ref Range POC Glucose 200 (H) 75 - 110 mg/dL POC Glucose Fingerstick Collection Time: 04/29/21 8:10 PM Result Value Ref Range POC Glucose 232 (H) 75 - 110 mg/dL APTT Collection Time: 04/29/21 8:15 PM Result Value Ref Range PTT 94.2 (HH) 20.5 - 30.5 sec Basic Metabolic Panel w/ Reflex to MG Collection Time: 04/30/21 5:27 AM Result Value Ref Range Glucose 180 (H) 70 - 99 mg/dL BUN 9 8 - 23 mg/dL CREATININE 0.74 0.70 - 1.20 mg/dL Bun/Cre Ratio NOT REPORTED 9 - 20 Calcium 9.2 8.6 - 10.4 mg/dL Sodium 134 (L) 135 - 144 mmol/L Potassium 4.0 3.7 - 5.3 mmol/L Chloride 103 98 - 107 mmol/L CO2 19 (L) 20 - 31 mmol/L Anion Gap 12 9 - 17 mmol/L GFR Non- >60 >60 mL/min GFR >60 >60 mL/min GFR Comment GFR Staging NOT REPORTED APTT Collection Time: 04/30/21 5:27 AM Result Value Ref Range PTT 59.1 (H) 20.5 - 30.5 sec Assessment : Primary Problem <principal problem not specified> Active Hospital Problems Diagnosis Date Noted Anticoagulated on heparin [Z79.01] History of GI bleed [Z87.19] DM (diabetes mellitus), type 2 (HCC) [E11.9] 04/27/2021 Discitis of lumbosacral region [M46.47] 04/27/2021 Hypokalemia [E87.6] 04/27/2021 Hypomagnesemia [E83.42] 04/27/2021 NSTEMI (non-ST elevated myocardial infarction) ([facility]) [I21.4] 04/25/2021 Altered mental status [R41.82] Acute ischemic stroke ([facility]) [I63.9] 65 y.o. male who presents with bilateral LE weakness and sensory loss from neck down, absent reflexes after syncopal episode while on toilet. Syncopal episode possible vasovagal in etiology. CT head and CTA unrevealing for acute pathology, CT cervical spine and shoulder XR show no acute abnormality. Trauma surgery consulted. Troponins trending upwards from NSTEMI. Patient's neurological exam on presentation concerning for stroke, symptoms have now resolved. Recommend obtaining MRI brain in AM, 2D ECHO and complete stroke workup. Cont Plavix and Lipitor. Multivessel CAD on cardiac catheterization. Cardiothoracic surgery consulted for possible evaluation for CABG. holding Plavix for 5 days before cardiac surgery. Plan: Patient status Admit as inpatient in the Progressive Unit/Step down Imaging: - MRI brain, cervical spine and lumbar spine without contrast: Acute infarct within the left thalamus and posterior limb of the left internal capsule was seen. Cerebral atrophy with mild chronic microvascular disease within the periventricular white matter. -Cardiology: Multivessel CAD on cardiac catheterization. Cardiothoracic surgery consulted for possible evaluation for CABG. Plavix on hold. 04/29 is day 1 - Heme-onc consulted: Okay to continue IV heparin. - Plavix 75 mg daily (on hold for planned cardiac surgery in 5 days) and Lipitor 40 mg daily. Note: Post cardiac surgery start Plavix with a loading dose 300 mg and then continue 75 mg daily dose. - Lipid panel (triglyceride 181, LDL 51, HDL 25 cholesterol 112) and Hb A1c. - Neurosurgery on board) - start aspirin 81 mg. - PT/OT. - Medical management as primary team. - Continue to follow-up. Consultations: IP CONSULT TO STROKE TEAM IP CONSULT TO NEUROSURGERY IP CONSULT TO TRAUMA SURGERY IP CONSULT TO INTERNAL MEDICINE IP CONSULT TO CARDIOLOGY IP CONSULT TO CASE MANAGEMENT IP CONSULT TO INFECTIOUS DISEASES IP CONSULT TO HEM/ONC IP CONSULT TO HEM/ONC IP CONSULT TO NEUROSURGERY IP CONSULT TO PHYSICAL MEDICINE REHAB IP CONSULT TO CARDIOTHORACIC SURGERY Follow-up further recommendations after discussing the case with attending The plan was discussed with the patient, patient's family and the medical staff. Patient is admitted as inpatient status because of co-morbidities listed above, severity of signs and symptoms as outlined, requirement for current medical therapies and most importantly because of direct risk to patient if care not provided in a hospital setting. Rogelio Epstein MD 04/30/2021 8:48 AM Copy sent to Dr. Alec Pinzon MD Associated attestation - Elisa Larsen MD - 04/30/2021 8:27 PM EDT Attending Physician Statement I have discussed the case of Yoel Van including pertinent history and exam findings with the resident/ PRIMARY SUBSTANCE ABUSE COUNSELOR. I have seen and examined the patient and the burnett elements of the encounter have been performed by me. I agree with the assessment, plan and orders as documented by the resident or PRIMARY SUBSTANCE ABUSE COUNSELOR with changes made to the note. Briefly, this is a 65 y.o. male with hx of was admitted on 04/24/2021 with altered mentation post fall. Patient fell down off of toilet seat. Denied loss of consciousness. After the fall patient had weakness in left lower extremity. Vitals on admit 178/96. Troponins were elevated at 125., Had cardiac catheterization revealing multivessel disease. Patient has been on IV heparin. MRI brain showed small acute infarct in left thalamus and left posterior limb of internal capsule. Patient is initiated on Plavix 75 mg daily along with atorvastatin 40 mg nightly for stroke prevention. CT cervical spine demonstrated spinal stenosis for which neurosurgery consulted. BP 126/66 Pulse 69 Temp 97.4 F (36.3 C) (Oral) Resp 18 Ht 6' (1.829 m) Wt 223 lb (101.2 kg) SpO2 96% BMI 30.24 kg/m Blood pressure range: Systolic (24hrs), Av , Min:105 , Max:160 ; Diastolic (24hrs), Av, Min:57, Max:88 Impression and Plan: Mr. Yoel Van is a 65 y.o. male with Acute encephalopathy; significantly improved. Acute left thalamic ischemic stroke along with capsular ischemic stroke; presently on IV heparinization and on ASA. Plavix d/c'ed for upcoming intervention as per cardiology. Risk of stroke recurrence discussed with patient and his at bedside. Also discussed about risk of hemorrhagic stroke with heparinization. Multivessel CAD; plan for PCI rather than CABG as per earlier plan. Elevated troponins; abnormal cardiac cath; multivessel coronary artery disease; on IV heparinization. Risk of hemorrhagic transformation of stroke discussed with patient and his at bedside. Any changes in neurologic status; CT head without contrast to be repeated ALLY. Cervical spondylosis with spinal stenosis; neurosurgery consulted. Comorbid conditions include hypertension, hyperlipidemia, diabetes, CAD. We will follow with you. Elisa Larsen MD 04/30/2021 8:24 PM Images from the original note were not included. [facility] Internal Medicine Teaching Residency Program Inpatient Daily Progress Note Patient: Yoel Van Date of : 1955 Acct: [id number] Room: 1015/1015-01 Admit date: 04/24/2021 Today's date: 04/30/21 Number of days in the hospital: 5 SUBJECTIVE Admitting Diagnosis: CVA CC: Fall with acute encephalopathy Pt examined at bedside. Chart & results reviewed. Patient is s/p Diagnostic cath yesterday (04/28/21). -multivessel disease; referral for CT evaluation for CABG ECHO on 04/28 shows mild reduced LVEF 45-50% Patient is doing well. He denies chest pain, shortness of breath, dizziness, nausea, vomiting, abdominal pain or dysuria. He reports improvement with lower extremity weakness. Small acute infarct in left thalamus and left posterior limb of internal capsule. - Patient received 1 dose of Plavix on 04/28 before cath (after Neuro cleared for DAPT for NSTEMI) Plavix currently on hold for possible CABG- appreciate CTS recommendations Neuro- Atorvastatin 40 mg nightly for stroke prevention ID- No evidence of acute infection; no acute intervention regarding Osteomyelitis- ID signed off. Neurosurgery- No acute intervention for spinal stenosis ROS: Constitutional: negative for chills, fevers, sweats Respiratory: negative for cough, dyspnea on exertion, hemoptysis, shortness of breath, wheezing Cardiovascular: negative for chest pain, chest pressure/discomfort, lower extremity edema, palpitations Gastrointestinal: negative for abdominal pain, constipation, diarrhea, nausea, vomiting Neurological: negative for dizziness, headache BRIEF HISTORY The patient is a pleasant 65 y.o. male presents with a chief complaint of dizziness and fall at home. The patient has a past medical history of 2 CVA, DM 2 hypertension, CAD status post 3 stents. The patient reported he was to the bathroom and before he could use the bathroom he felt sudden weakness in both his lower extremities and he fell on the bathroom floor, and hit his head. Patient's came to help him get up in the bathroom and helped him sit on the toilet. The patient denies urinary incontinence, tongue biting or seizure-like activity. After the fall the patient reported feeling bilateral lower extremity weakness. The patient's checked his blood sugar after the fall which was 78. The patient had some juice and food. patient's reported mental status changes including continued cigarette after 2 weeks of quitting. Patient rested for 2 to 3 hours after the fall at home and patient's brought him to the ED due to his change of mental status. The ED patient was hemodynamically stable, afebrile, saturating over 95% on room air. Stroke alert was called and neuro was consulted. The patient was combative and cooperative in the ED and subsequently received Ativan 5 mg and Haldol 10 mg. Imaging showed no new acute findings. CTA head and neck showed bilateral carotid bifurcation atherosclerotic plaque resulting in approximately 4 to 40% left and 20% right stenosis of proximal ICAs. CT cervical spine showed mild central canal stenosis secondary to encroachment by disc osteophyte complex. CT abdomen pelvis showed sigmoid colon diverticulosis and severe bilateral iliac arterial atherosclerosis. Troponins 180 --> 175 --> 187 --> 199. EKG showed no significant changes as compared to the previous EKG. Blood sugar was 140. H&H stable, no signs of infection. Electrolytes are within normal limits. OBJECTIVE Vital Signs: BP (!) 160/88 Pulse 64 Temp 97.5 F (36.4 C) (Oral) Resp 18 Ht 6' (1.829 m) Wt 223 lb (101.2 kg) SpO2 97% BMI 30.24 kg/m Temp (24hrs), Av.8 F (36.6 C), Min:97.3 F (36.3 C), Max:98.4 F (36.9 C) In: - Out: 725 [Urine:725] Physical Exam: Constitutional: This is a well developed, well nourished, 30-34.9 - Obesity Grade I 65 y.o. year old male who is alert, oriented, cooperative and in no apparent distress. Head:normocephalic and atraumatic. EENT: PERRLA. No conjunctival injections. Septum was midline, mucosa was without erythema, exudates or cobblestoning. No thrush was noted. Neck: Supple without thyromegaly. No elevated JVP. Trachea was midline. Respiratory: Chest was symmetrical without dullness to percussion. Breath sounds bilaterally were clear to auscultation. There were no wheezes, rhonchi or rales. There is no intercostal retraction or use of accessory muscles. No egophony noted. Cardiovascular: Regular without murmur, clicks, gallops or rubs. Abdomen: Slightly rounded and soft without organomegaly. No rebound, rigidity or guarding was appreciated. Lymphatic: No lymphadenopathy. Musculoskeletal: Normal curvature of the spine. No gross muscle weakness. Extremities: No lower extremity edema, ulcerations, tenderness, varicosities or erythema. Muscle size, tone and strength are normal. No involuntary movements are noted. Skin: Warm and dry. Good color, turgor and pigmentation. No lesions or scars. No cyanosis or clubbing Neurological/Psychiatric: The patient's general behavior, level of consciousness, thought content and emotional status is normal. Medications: Scheduled Medications: carvedilol 12.5 mg Oral BID WC lisinopril 40 mg Oral Daily sodium chloride flush 5-40 mL Intravenous 2 times per day insulin lispro 0-12 Units Subcutaneous TID WC insulin lispro 0-6 Units Subcutaneous Nightly nicotine 1 patch Transdermal Daily sodium chloride flush 5-40 mL Intravenous 2 times per day atorvastatin 40 mg Oral Daily gabapentin 600 mg Oral BID traZODone 200 mg Oral Nightly pantoprazole 40 mg Oral Nightly Continuous Infusions: sodium chloride dextrose sodium chloride heparin (PORCINE) Infusion 17 Units/kg/hr (04/30/21 0207) PRN Medicationspotassium chloride, 40 mEq, PRN Or potassium alternative oral replacement, 40 mEq, PRN Or potassium chloride, 10 mEq, PRN sodium chloride flush, 5-40 mL, PRN sodium chloride, 25 mL, PRN acetaminophen, 650 mg, Q4H PRN glucose, 15 g, PRN dextrose, 12.5 g, PRN glucagon (rDNA), 1 mg, PRN dextrose, 100 mL/hr, PRN labetalol, 20 mg, Q4H PRN sodium chloride flush, 5-40 mL, PRN sodium chloride, 25 mL, PRN ondansetron, 4 mg, Q8H PRN Or ondansetron, 4 mg, Q6H PRN polyethylene glycol, 17 g, Daily PRN acetaminophen, 650 mg, Q6H PRN Or acetaminophen, 650 mg, Q6H PRN heparin (porcine), 4,000 Units, PRN heparin (porcine), 2,000 Units, PRN nitroGLYCERIN, 0.4 mg, Q5 Min PRN Diagnostic Labs: CBC: Recent Labs 04/29/21 0325 WBC 7.5 RBC 4.10* HGB 12.4* HCT 37.7* MCV 92.0 RDW 14.1 PLT 202 BMP: Recent Labs 04/28/21 0240 04/29/21 0325 04/30/21 0527 NA 136 138 134* K 3.7 3.9 4.0 CL 104 106 103 CO2 21 22 19* BUN 10 11 9 CREATININE 0.77 0.72 0.74 BNP: No results for input(s): BNP in the last 72 hours. PT/INR: No results for input(s): PROTIME, INR in the last 72 hours. APTT: Recent Labs 04/29/21 1208 04/29/21201404/30/21 0527 APTT 46.3* 94.2* 59.1* CARDIAC ENZYMES: No results for input(s): CKMB, CKMBINDEX, TROPONINI in the last 72 hours. Invalid input(s): CKTOTAL;3 FASTING LIPID PANEL: Lab Results Component Value Date CHOL 112 04/26/2021 HDL 25 (L) 04/26/2021 TRIG 181 (H) 04/26/2021 LIVER PROFILE: No results for input(s): AST, ALT, ALB, BILIDIR, BILITOT, ALKPHOS in the last 72 hours. MICROBIOLOGY: Lab Results Component Value Date/Time CULTURE NO GROWTH 5 DAYS 04/25/2021 08:33 PM CULTURE NO GROWTH 5 DAYS 04/25/2021 08:33 PM Imaging: CT ABDOMEN PELVIS WO CONTRAST Additional Contrast? None Result Date: 04/25/2021 1. No acute abnormality of the abdomen or pelvis. 2. Sigmoid colon diverticulosis without evidence of diverticulitis. 3. Bifemoral arterial graft, not adequately evaluated in absence of CT angiographic study. 4. Severe bilateral iliac arterial atherosclerosis. 5. L5/S1 severe bilateral neural foraminal stenosis secondary to encroachment by disc osteophyte complex. CT HEAD WO CONTRAST Result Date: 04/24/2021 No evidence for acute intracranial hemorrhage, territorial infarction or intracranial mass lesion. Chronic lacunar infarction right pacheco radiata. Mild chronic microangiopathic ischemic disease. Mild generalized volume loss. CT CERVICAL SPINE WO CONTRAST Result Date: 04/24/2021 1. No acute abnormality of the cervical spine. 2. C5/C6 moderate, C6/C7 mild central canal stenosis secondary to encroachment by disc osteophyte complex. 3. C3/C4 mild bilateral, C5/C6 moderate bilateral, C6/C7 severe left and moderate right neural foraminal stenosis secondary to encroachment by disc osteophyte complex. MRI CERVICAL SPINE WO CONTRAST Result Date: 04/26/2021 Congenital spinal canal stenosis superimposed moderate diffuse degenerative disc disease Moderate central canal stenosis at C5-C6 and C6-C7 and to slightly lesser extent at C3-C4. Multilevel bilateral neural foraminal stenosis as noted above most severe C3-C4 and C6-C7. MRI LUMBAR SPINE WO CONTRAST Result Date: 04/26/2021 Edema within the endplates at L5-S1 presence of high T2 signal within disc space. These changes are suspicious for acute discitis/osteomyelitis. No epidural abscess or significant paravertebral inflammation is identified. Correlation with C-reactive protein is suggested. Severe bilateral foraminal stenosis at L5-S1. Mild bilateral foraminal stenosis at L4-L5. Borderline congenital spinal canal stenosis. XR SHOULDER LEFT (MIN 2 VIEWS) Result Date: 04/24/2021 No evidence of an acute fracture involving the left shoulder XR CHEST PORTABLE Result Date: 04/24/2021 Marginal inspiration, without evidence of acute cardiopulmonary disease CTA HEAD NECK W CONTRAST Result Date: 04/24/2021 1. Bilateral carotid bifurcation atherosclerotic plaque resulting approximately 40% left and 20% right stenosis of the proximal internal carotid arteries. Finding is compatible with 16-49% stenosis per sonographic NASCET index criteria. 2. Bilateral internal carotid artery cavernous segment scattered atherosclerotic calcification with up to approximately 25% bilateral arterial stenosis. Finding is compatible with 16-49% stenosis per sonographic NASCET index criteria. 3. Bilateral vertebral artery V4 segment atherosclerotic calcification resulting in focal high-grade stenosis of the left vertebral artery in approximately focal 50% stenosis of the right vertebral artery. 4. Left vertebral artery mid cervical segment approximately 70% stenosis secondary to encroachment by atherosclerotic plaque, as discussed above. RECOMMENDATIONS: For clinical suspicion of acute ischemia, recommend MRI brain with diffusion-weighted imaging for further evaluation MRI BRAIN WO CONTRAST Result Date: 04/26/2021 Small acute infarct within the left thalamus and posterior limb of the left internal capsule. Mild chronic microvascular disease within the periventricular white matter. Moderate cerebral atrophy. Susceptibility within the right parietal lobe periventricular white matter which may represent a cavernoma versus old hemorrhage. CATH: 04/28/21 Procedure Procedure Type: Diagnostic procedure: Lt Heart, Coronary Angio, LVgram Complications: - No complication Indications: - Unstable angina - Coronary risk factors - Previous stent placement Conclusions Procedure Summary Multivessel CAD Preserved LV function Recommendations CV surgery consult for CABG ASSESSMENT & PLAN ASSESSMENT / PLAN: Active Problems: Acute ischemic stroke (HCC) NSTEMI (non-ST elevated myocardial infarction) (HCC) Altered mental status DM (diabetes mellitus), type 2 (HCC) Discitis of lumbosacral region Hypokalemia Hypomagnesemia History of GI bleed Anticoagulated on heparin Resolved Problems: * No resolved hospital problems. * IMPRESSION This is a 65 y.o. male who presented after a fall with acute encephalopathy. Active Problems: Fall with head injury and acute encephalopathy Dx: Acute ischemic stroke -Continue atorvastatin, Plavix is held; patient currently on heparin drip for concern of NSTEMI; avoid heparin bolus per Neurology -Neurology following - Patient received 1 dose of Plavix on -04/28 - after Neurology cleared him for DAPT for NSTEMI -Bilateral lower extremity weakness persists but has been improving NSTEMI (non-ST elevated myocardial infarction) (HCC) Plan: Troponins 180 --> 175 --> 187 --> 199 --> 267. EKG showed no significant changes as compared to the previous EKG. -Patient is s/p Diagnostic cath on 04/28/21. -multivessel disease; referral for CT evaluation for CABG -We will continue Heparin gtt - ECHO shows mild reduced LVEF 45-50% -Patient received 1 dose of Plavix on 04/28 before cath (after Neuro cleared for DAPT for NSTEMI) -Plavix currently on hold for possible CABG- appreciate CTS recommendations -Awaiting CTS evaluation and recommendation CAD s/p 3 stent placement - Continue Lipitor, Lopressoe 25 mg BID, Labetalol 20 mg IV PRN, Discitis/ osteomyelitis of L5-S1 -ID was consulted-we will monitor and and does not require any acute intervention for now- ID signed off - Neurosurgery- no acute intervention required for discitis -Repeat MRI after 6 weeks as outpatient Type II DM -Blood sugar level uncontrolled. Hold home medication -We will continue medium dose sliding scale insulin DVT ppx: Heparin gtt GI ppx: Protonix PT/OT/SW- Onboard Discharge Planning: application manager consulted, will follow up Gee Parnell MD Internal Medicine Resident, PGY-1 [facility]; [place], [place] 04/30/2021, 7:23 AM Attending Physician Statement I have discussed the care of Yoel Van with the resident team. I have examined the patient myself and taken ros and hpi , including pertinent history and exam findings, with the resident. I have reviewed the burnett elements of all parts of the encounter with the resident. I agree with the assessment, plan and orders as documented by the resident. Active Problems: Acute ischemic stroke (HCC) NSTEMI (non-ST elevated myocardial infarction) ([facility]) Altered mental status DM (diabetes mellitus), type 2 (HCC) Discitis of lumbosacral region Hypokalemia Hypomagnesemia History of GI bleed Anticoagulated on heparin CAD, multiple vessel Resolved Problems: * No resolved hospital problems. * Plan for staged PCI rather than CABG for multivessel CAD Images from the original note were not included. Nellie Senior Energy Analyst Progress Note Date: 04/30/2021 Patient name: Yoel Van Date of admission: 04/24/2021 9:50 PM Date of : 1955 PCP: Alec Pinzon MD Reason for Admission: NSTEMI (non-ST elevated myocardial infarction) ([facility]) [I21.4] Subjective: Postop day 2 of cardiac cath. No acute issues overnight, no active complaints. Medications: Scheduled Meds: lisinopril 40 mg Oral Daily sodium chloride flush 5-40 mL Intravenous 2 times per day insulin lispro 0-12 Units Subcutaneous TID WC insulin lispro 0-6 Units Subcutaneous Nightly nicotine 1 patch Transdermal Daily sodium chloride flush 5-40 mL Intravenous 2 times per day atorvastatin 40 mg Oral Daily gabapentin 600 mg Oral BID traZODone 200 mg Oral Nightly metoprolol tartrate 25 mg Oral BID pantoprazole 40 mg Oral Nightly Continuous Infusions: sodium chloride dextrose sodium chloride heparin (PORCINE) Infusion 17 Units/kg/hr (04/30/21 0207) CBC: Recent Labs 04/29/21 032 WBC 7.5 HGB 12.4* PLT 202 BMP: Recent Labs 04/28/21 0240 04/29/21 0325 04/30/21 0527 NA 136 138 134* K 3.7 3.9 4.0 CL 104 106 103 CO2 21 22 19* BUN 10 11 9 CREATININE 0.77 0.72 0.74 GLUCOSE 250* 172* 180* DIAGNOSTIC DATA EKG 04/26/2021 Normal sinus rhythm Normal ECG When compared with ECG of 24-APR-2021 21:59, No significant change was found ECHO ORDERED PENDING ECHO 05/08/2020 Summary Normal left ventricle size and function with an estimated EF 50- 55%. Moderate left ventricular hypertrophy. Normal right ventricular size and function. Left atrial dilatation. Negative bubble study, with and without Valsalva maneuver, no suggestion of inter-atrial shunt. Mild mitral regurgitation. Aortic root is mildly dilated. (4.3 cm) No significant pericardial effusion is seen. CATH PLANNED FOR Wednesday. Objective: Vitals: BP (!) 160/88 Pulse 64 Temp 97.5 F (36.4 C) (Oral) Resp 18 Ht 6' (1.829 m) Wt 223 lb (101.2 kg) SpO2 97% BMI 30.24 kg/m General appearance: alert and cooperative with exam HEENT: Head: Normocephalic, no lesions, without obvious abnormality. Neck:no JVD, trachea midline, no adenopathy Lungs: Clear to auscultation Heart: Regular rate and rhythm, s1/s2 auscultated, no murmurs SR on tele HR 65 Abdomen: soft, non-tender, bowel sounds active Extremities: no edema Neurologic: not done 04/28/2021: LMCA: 20% ostial stenosis LAD: Mid area 75%stenosis Distal 80% stenosis D1: proximal 80-90% stenosis LCx: Proximal 90% stenosis RCA: Patent mid stent area with 25% stenosis PDA: proximal 75% stenosis Coronary Tree Dominance: Right LV Analysis LV function assessed as:Normal. Conclusions: Multivessel CAD Preserved LV function Recommendations CV surgery consult for CABG Echo 04/28/2021: Summary Left ventricle is normal in size. Global left ventricular systolic function is mildly reduced. Estimated ejection fraction is 45-50 % . Calculated EF via Bird's method is 46 %. Grade I (mild) left ventricular diastolic dysfunction. Left atrium is mildly dilated. Right atrium is mildly dilated . Negative bubble study, no shunt noted via injection of agitated saline. Aortic valve is sclerotic but opens well.. Trivial to mild mitral regurgitation. Trivial tricuspid regurgitation. Estimated right ventricular systolic pressure is 29 mmHg. Normal aortic root dimension. The ascending aorta is mildly dilated. Assessment / Acute Cardiac Problems: 1. Status post cardiac cath with multivessel coronary artery disease as above. CT surgery consulted. 2. Previous CAD s/p stents to RCA and circumflex, FOOT CASTER obtuse branch at [facility] years ago 3. Thoracic aortic aneurysm about 4.4 cm. Follows with cardiology 4. Severe PAD s/p right femoral-popliteal bypass graft 5. Echo 04/24/2021 mildly low LVEF 45 to 30% grade 1 DD. Negative bubble study. 6. Diabetes mellitus 7. History of ischemic stroke later converted to hemorrhagic stroke while on DAPT. 8. Status post fall likely TIA Vs syncope Vs seizure 9. Multifocal intracranial/extracranial atherosclerotic disease Plan of Treatment: 1. Continue statin, LUANA, metoprolol 25 twice changed to coreg due to HTN, heparin with no boluses. Need to add aspirin, will clear with neurology. Still undecided about DAPT as per last neurology note family was deciding and will let us know if they are okay with dual antiplatelet therapy. Plavix DC'd yesterday. 2. CVA per neurology small acute ischemic infarct. okay to continue IV heparin per neurology. 3. ID following. 4. Keep K > 4.0 and Mag > 2.0.. 5. Rest of care managed per Primary Team. Jonathan Levy MD Cardiovascular Fellow PGY-4 04/30/2021, 7:18 AM Attending Physician Statement I have discussed the case of Yoel Van including pertinent history and exam findings with the resident. I have seen and examined the patient and the burnett elements of the encounter have been performed by me. I agree with the assessment, plan and orders as documented by the resident With changes made to the note. . [place] Senior Energy Analyst [phone] Images from the original note were not included. Physical Therapy Physical Therapy Cancel Note DATE: 04/29/2021 NAME: Yoel Van : 1955 Patient not seen this date for Physical Therapy due to: Other: CTS consult, possible CABG Attending Physician Statement I have discussed the care of Yoel Van with the resident team. I have examined the patient myself and taken ros and hpi , including pertinent history and exam findings, with the resident. I have reviewed the burnett elements of all parts of the encounter with the resident. I agree with the assessment, plan and orders as documented by the resident. Active Problems: Acute ischemic stroke (HCC) NSTEMI (non-ST elevated myocardial infarction) (HCC) Altered mental status DM (diabetes mellitus), type 2 (HCC) Discitis of lumbosacral region Hypokalemia Hypomagnesemia History of GI bleed Resolved Problems: * No resolved hospital problems. * multivesel disease on cardiac cath For CABG; plavix on hold Pt on iv heparin Ischemic CVA- plavix ok per neurology, prior h/o hemorrhagic conversion of a previous stroke No concern for any active osteomyeliltis/diskitis per ID and Neurosurg- pt will need OP follow up; possible repeat MRI Full note to follow. Images from the original note were not included. Nellie Senior Energy Analyst Progress Note Date: 04/29/2021 Patient name: Yoel Van Date of admission: 04/24/2021 9:50 PM Date of : 1955 PCP: Alec Pinzon MD Reason for Admission: NSTEMI (non-ST elevated myocardial infarction) (HCC) [I21.4] Subjective: Postop day 1 of cardiac cath through the right radial artery. No acute issues overnight, no active complaints. Medications: Scheduled Meds: lisinopril 40 mg Oral Daily sodium chloride flush 5-40 mL Intravenous 2 times per day insulin lispro 0-12 Units Subcutaneous TID WC insulin lispro 0-6 Units Subcutaneous Nightly nicotine 1 patch Transdermal Daily sodium chloride flush 5-40 mL Intravenous 2 times per day atorvastatin 40 mg Oral Daily gabapentin 600 mg Oral BID traZODone 200 mg Oral Nightly metoprolol tartrate 25 mg Oral BID pantoprazole 40 mg Oral Nightly Continuous Infusions: sodium chloride dextrose sodium chloride heparin (PORCINE) Infusion 18 Units/kg/hr (04/29/21 0022) CBC: Recent Labs 04/27/21 0311 04/29/21 0325 WBC 7.9 7.5 HGB 12.9* 12.4* PLT 223 202 BMP: Recent Labs 04/27/21 1150 04/28/21 0240 04/29/21 0325 NA 137 136 138 K 3.9 3.7 3.9 CL 104 104 106 CO2 20 21 22 BUN 11 10 11 CREATININE 0.71 0.77 0.72 GLUCOSE 280* 250* 172* Hepatic:No results for input(s): AST, ALT, ALB, BILITOT, ALKPHOS in the last 72 hours. Troponin: No results for input(s): TROPHS in the last 72 hours. BNP: No results for input(s): BNP in the last 72 hours. Lipids: No results for input(s): CHOL, HDL in the last 72 hours. Invalid input(s): LDLCALCU INR: No results for input(s): INR in the last 72 hours. DIAGNOSTIC DATA EKG 04/26/2021 Normal sinus rhythm Normal ECG When compared with ECG of 24-APR-2021 21:59, No significant change was found ECHO ORDERED PENDING ECHO 05/08/2020 Summary Normal left ventricle size and function with an estimated EF 50- 55%. Moderate left ventricular hypertrophy. Normal right ventricular size and function. Left atrial dilatation. Negative bubble study, with and without Valsalva maneuver, no suggestion of inter-atrial shunt. Mild mitral regurgitation. Aortic root is mildly dilated. (4.3 cm) No significant pericardial effusion is seen. CATH PLANNED FOR Wednesday. Objective: Vitals: BP (!) 154/84 Pulse 64 Temp 97.3 F (36.3 C) (Oral) Resp 14 Ht 6' (1.829 m) Wt 223 lb (101.2 kg) SpO2 95% BMI 30.24 kg/m General appearance: alert and cooperative with exam HEENT: Head: Normocephalic, no lesions, without obvious abnormality. Neck:no JVD, trachea midline, no adenopathy Lungs: Clear to auscultation Heart: Regular rate and rhythm, s1/s2 auscultated, no murmurs SR on tele HR 65 Abdomen: soft, non-tender, bowel sounds active Extremities: no edema Neurologic: not done 04/28/2021: LMCA: 20% ostial stenosis LAD: Mid area 75%stenosis Distal 80% stenosis D1: proximal 80-90% stenosis LCx: Proximal 90% stenosis RCA: Patent mid stent area with 25% stenosis PDA: proximal 75% stenosis Coronary Tree Dominance: Right LV Analysis LV function assessed as:Normal. Conclusions: Multivessel CAD Preserved LV function Recommendations CV surgery consult for CABG Echo 04/28/2021: Summary Left ventricle is normal in size. Global left ventricular systolic function is mildly reduced. Estimated ejection fraction is 45-50 % . Calculated EF via Bird's method is 46 %. Grade I (mild) left ventricular diastolic dysfunction. Left atrium is mildly dilated. Right atrium is mildly dilated . Negative bubble study, no shunt noted via injection of agitated saline. Aortic valve is sclerotic but opens well.. Trivial to mild mitral regurgitation. Trivial tricuspid regurgitation. Estimated right ventricular systolic pressure is 29 mmHg. Normal aortic root dimension. The ascending aorta is mildly dilated. Assessment / Acute Cardiac Problems: Status post cardiac cath with multivessel coronary artery disease as above. CT surgery consulted. Previous CAD s/p stents to RCA and circumflex, FOOT CASTER obtuse branch at [facility] years ago Thoracic aortic aneurysm about 4.4 cm. Follows with cardiology Severe PAD s/p right femoral-popliteal bypass graft Echo 04/24/2021 mildly low LVEF 45 to 30% grade 1 DD. Negative bubble study. Diabetes mellitus History of ischemic stroke later converted to hemorrhagic stroke while on DAPT. Status post fall likely TIA Vs syncope Vs seizure Multifocal intracranial/extracranial atherosclerotic disease Plan of Treatment: Continue statin, LUANA, metoprolol 25 twice daily, heparin with no boluses. Still undecided about DAPT as per last neurology note family was deciding and will let us know if they are okay with dual antiplatelet therapy. Plavix DC'd yesterday. CVA per neurology small acute ischemic infarct. okay to continue IV heparin and Plavix per neurology. ID following. Consult today noted does not advocate for any invasive testing at this time. Keep K > 4.0 and Mag > 2.0.. Rest of care managed per Primary Team. Jonathan Levy MD Cardiovascular Fellow PGY-4 04/29/2021, 9:28 AM Attending Web Application Tester Addendum: I have reviewed and performed the history, physical, subjective, objective, assessment, and plan with the student/resident/fellow/HOG PUSHER and agree with the note. I performed the history and physical personally. I have made changes to the note above as needed. Await CTS recs Stop plavix Start ASA if okay with all Continue heparin drip Thank you for allowing me to participate in the care of this patient, please do not hesitate to call if you have any questions. Marcello Cole DO, FACPatrick, JOANNA RUIZ [place] Senior Energy Analyst [facility] Images from the original note were not included. [facility] Occupational Therapy Not Seen Note DATE: 04/29/2021 NAME: Yoel Van : 1955 Patient not seen this date for Occupational Therapy due to: Other: await cardiothoracic surgery consult Next Scheduled Treatment: check back 04/30/2021 [facility] Neurology IN-PATIENT SERVICE [facility] HISTORY AND PHYSICAL EXAMINATION Date: 04/29/2021 Patient name: Yoel Van Date of admission: 04/24/2021 9:50 PM Account: [id number] Date of : 1955 PCP: Alec Pinzon MD Room: [address] [place], [place] [id number]- Code Status: Full Code Chief Complaint: Chief Complaint Patient presents with Altered Mental Status History Obtained From: Patient was seen and evaluated the bedside. He was alert and oriented x3. He denied any chest pain. Patient had power 4/5 with decreased sensation on the right lower extremity. Patient also had unsteady gait and when he stands up he leans on the right side. Postcardiac catheterization patient was found to have multivessel disease and cardiothoracic surgery was consulted. Plan to hold Plavix for 5 days cardiac surgery. History of Present Illness: 65 y.o. male who presents after falling while on the toilet. Patient has a medical history of type 2 diabetes, essential hypertension, obesity, hyperlipidemia right-sided coronary radiata infarction in Aug 2019, and right parietal hemorrhage in 2019 while being treated with DAPT. Currently patient takes Plavix monotherapy 75 mg. Patient reportedly lost consciousness while on the toilet and fell onto his right side, hitting his head. Patient's was able to help the patient back up, however they noticed lower extremity weakness at that time. Patient had no difficulty emptying his bowels but had progressively worsening lower extremity weakness as the day went on. Patient had to use a walker to ambulate, usually does not use any assistive devices. On presentation to the ER, patient is wearing a C-collar and has bilateral lower extremity weakness and numbness. He does not react to noxious stimuli applied to either upper or lower extremities. He is unable to tell me the month and his age, but is complaining of left-sided shoulder pain and a runny nose. He is also unable to follow two-step commands, and speech is slightly slurred according to his . Blood pressures 178/96. Troponin elevated 125>180. CT head showed no evidence for acute intracranial hemorrhage, infarction or mass lesion. It did demonstrate chronic lacunar infarction in the right pacheco radiata and mild chronic microangiopathic ischemic disease. CTA head and neck did not reveal any significant stenosis correlating with patient's symptoms. X-ray shoulder and CT cervical spine did not show any acute abnormalities. Patient's exam is variable. Upon reevaluation, patient's strength is 5/5 with no deficits. Past Medical History: Past Medical History: Diagnosis Date Cerebral artery occlusion with cerebral infarction (HCC) Diabetes mellitus (HCC) Headache Hyperlipidemia Hypertension Past Surgical History: Past Surgical History: Procedure Laterality Date CARDIAC SURGERY ROTATOR CUFF REPAIR ROTATOR CUFF REPAIR Medications Prior to Admission: Prior to Admission medications Medication Sig Start Date End Date Taking? Authorizing Provider varenicline (CHANTIX STARTING MONTH RYNE) 0.5 MG X 11 & 1 MG X 42 tablet Chantix Starting Month Box 0.5 mg (11)-1 mg (42) tablets in dose pack Historical Provider, diclofenac sodium 1 % GEL APPLY TO THE AFFECTED AREA(S) FOUR TIMES DAILY NEEDED (TRANSDERMALLY) 12/07/19 Historical Provider, clopidogrel (PLAVIX) 75 MG tablet clopidogrel 75 mg tablet Historical Provider, pioglitazone (ACTOS) 30 MG tablet Take 30 mg by mouth daily Historical Provider, AMITRIPTYLINE HCL PO Take 150 mg by mouth Historical Provider, Carvedilol (COREG PO) Take 37.5 mg by mouth 2 times daily Historical Provider, gabapentin (NEURONTIN) 600 MG tablet Take 600 mg by mouth 2 times daily. Historical Provider, glipiZIDE (GLUCOTROL XL) 10 MG extended release tablet Take 10 mg by mouth daily Historical Provider, SITagliptin (JANUVIA) 100 MG tablet Take 100 mg by mouth daily Historical Provider, atorvastatin (LIPITOR) 40 MG tablet Take 40 mg by mouth daily Historical Provider, lisinopril (PRINIVIL;ZESTRIL) 40 MG tablet Take 40 mg by mouth daily Historical Provider, metFORMIN (GLUCOPHAGE) 1000 MG tablet Take 1,000 mg by mouth 2 times daily (with meals) Historical Provider, nitroGLYCERIN (NITROSTAT) 0.[address] 0.4 mg under the tongue every 5 minutes as needed for Chest pain up to max of 3 total doses. If no relief after 1 dose, call 911. Historical Provider, oxyCODONE-acetaminophen (PERCOCET) 5-325 MG per tablet Take 2 tablets by mouth every 4 hours as needed for Pain. Historical Provider, Pantoprazole Sodium (PROTONIX PO) Take 80 mg by mouth nightly Historical ProviderMD TRAZODONE HCL PO Take 200 mg of ampicillin by mouth nightly Historical Provider, Allergies: Patient has no known allergies. Social History: Tobacco: reports that he has been smoking cigarettes. He has a 22.50 pack-year smoking history. He has never used smokeless tobacco. Alcohol: reports previous alcohol use. Drug Use: reports no history of drug use. Family History: Family History Problem Relation Age of Onset Heart Disease Mother Stroke Mother Cancer Father lung Cancer Sister Cancer Brother throat Cancer Maternal Grandmother breast Alcohol Abuse Maternal Grandfather Other Paternal Grandmother leukemia Heart Attack Paternal Grandfather Review of Systems: Review of Systems Constitutional: Negative for fatigue. HENT: Negative for ear discharge, nosebleeds and sinus pressure. Eyes: Negative for pain. Respiratory: Negative for chest tightness and shortness of breath. Cardiovascular: Negative for chest pain, palpitations and leg swelling. Gastrointestinal: Negative for abdominal distention, diarrhea and vomiting. Endocrine: Negative for heat intolerance and polyphagia. Genitourinary: Negative for enuresis, hematuria and scrotal swelling. Musculoskeletal: Positive for gait problem. Negative for neck pain. Allergic/Immunologic: Negative for environmental allergies. Neurological: Negative for tremors, seizures, facial asymmetry, speech difficulty, weakness, numbness and headaches. Psychiatric/Behavioral: Negative for dysphoric mood and self-injury. Physical Exam: BP (!) 140/68 Pulse 64 Temp 97.4 F (36.3 C) (Oral) Resp 16 Ht 6' (1.829 m) Wt 223 lb (101.2 kg) SpO2 97% BMI 30.24 kg/m Temp (24hrs), Av.8 F (36.6 C), Min:97.4 F (36.3 C), Max:98.4 F (36.9 C) Recent Labs 04/28/21 1142 04/28/21 1638 04/28/21 2052 04/29/21 0800 POCGLU 190* 202* 182* 163* Intake/Output Summary (Last 24 hours) at 04/29/2021 0835 Last data filed at 04/29/2021 0525 Gross per 24 hour Intake 563.71 ml Output 1350 ml Net -786.29 ml Neurologic Exam Mental Status Oriented to person, place, and time. Registration: recalls 1 of 3 objects. Follows 3 step commands. Attention: decreased. Concentration: normal. Level of consciousness: alert Knowledge: good and consistent with education. Cranial Nerves Cranial nerves II through XII intact. Motor Exam Muscle bulk: normal Strength Right neck flexion: 5/5 Left neck flexion: 5/5 Right neck extension: 5/5 Left neck extension: 5/5 Right deltoid: 5/5 Left deltoid: 5/5 Right biceps: 5/5 Left biceps: 5/5 Right triceps: 5/5 Left triceps: 5/5 Right wrist flexion: 5/5 Left wrist flexion: 5/5 Right wrist extension: 5/5 Left wrist extension: 5/5 Right interossei: 5/5 Left interossei: 5/5 Right abdominals: 5/5 Left abdominals: 5/5 Right iliopsoas: 5/5 Left iliopsoas: 5/5 Right quadriceps: 5/5 Left quadriceps: 5/5 Right hamstrin/5 Left hamstrin/5 Right glutei: 5/5 Left glutei: 5/5 Right anterior tibial: 5/5 Left anterior tibial: 5/5 Right posterior tibial: 5/5 Left posterior tibial: 5/5 Right peroneal: 5/5 Left peroneal: 5/5 Right gastroc: 5/5 Left gastroc: 5/5 Sensory Exam Light touch normal. Gait, Coordination, and Reflexes Gait Gait: normal Tremor Resting tremor: absent Reflexes Right brachioradialis: 2+ Left brachioradialis: 2+ Right biceps: 2+ Left biceps: 2+ Right triceps: 2+ Left triceps: 2+ Right patellar: 2+ Left patellar: 2+ Right achilles: 2+ Left achilles: 2+ Right script artist: 2+ Left script artist: 2+ Investigations: Laboratory Testing: Recent Results (from the past 24 hour(s)) APTT Collection Time: 04/28/21 11:42 AM Result Value Ref Range PTT 37.7 (H) 20.5 - 30.5 sec POC Glucose Fingerstick Collection Time: 04/28/21 11:42 AM Result Value Ref Range POC Glucose 190 (H) 75 - 110 mg/dL APTT Collection Time: 04/28/21 4:29 PM Result Value Ref Range PTT 71.6 (H) 20.5 - 30.5 sec POC Glucose Fingerstick Collection Time: 04/28/21 4:38 PM Result Value Ref Range POC Glucose 202 (H) 75 - 110 mg/dL POC Glucose Fingerstick Collection Time: 04/28/21 8:52 PM Result Value Ref Range POC Glucose 182 (H) 75 - 110 mg/dL APTT Collection Time: 04/28/21 11:34 PM Result Value Ref Range PTT 49.2 (H) 20.5 - 30.5 sec Basic Metabolic Panel w/ Reflex to MG Collection Time: 04/29/21 3:25 AM Result Value Ref Range Glucose 172 (H) 70 - 99 mg/dL BUN 11 8 - 23 mg/dL CREATININE 0.72 0.70 - 1.20 mg/dL Bun/Cre Ratio NOT REPORTED 9 - 20 Calcium 8.9 8.6 - 10.4 mg/dL Sodium 138 135 - 144 mmol/L Potassium 3.9 3.7 - 5.3 mmol/L Chloride 106 98 - 107 mmol/L CO2 22 20 - 31 mmol/L Anion Gap 10 9 - 17 mmol/L GFR Non- >60 >60 mL/min GFR >60 >60 mL/min GFR Comment GFR Staging NOT REPORTED CBC Collection Time: 04/29/21 3:25 AM Result Value Ref Range WBC 7.5 3.5 - 11.3 k/uL RBC 4.10 (L) 4.21 - 5.77 m/uL Hemoglobin 12.4 (L) 13.0 - 17.0 g/dL Hematocrit 37.7 (L) 40.7 - 50.3 % MCV 92.0 82.6 - 102.9 fL MCH 30.2 25.2 - 33.5 pg MCHC 32.9 28.4 - 34.8 g/dL RDW 14.1 11.8 - 14.4 % Platelets 202 138 - 453 k/uL MPV 10.8 8.1 - 13.5 fL NRBC Automated 0.0 0.0 per 100 WBC APTT Collection Time: 04/29/21 3:25 AM Result Value Ref Range PTT 69.1 (H) 20.5 - 30.5 sec APTT Collection Time: 04/29/21 6:40 AM Result Value Ref Range PTT 69.2 (H) 20.5 - 30.5 sec POC Glucose Fingerstick Collection Time: 04/29/21 8:00 AM Result Value Ref Range POC Glucose 163 (H) 75 - 110 mg/dL Assessment : Primary Problem <principal problem not specified> Active Hospital Problems Diagnosis Date Noted History of GI bleed [Z87.19] DM (diabetes mellitus), type 2 (HCC) [E11.9] 04/27/2021 Discitis of lumbosacral region [M46.47] 04/27/2021 Hypokalemia [E87.6] 04/27/2021 Hypomagnesemia [E83.42] 04/27/2021 NSTEMI (non-ST elevated myocardial infarction) (HCC) [I21.4] 04/25/2021 Altered mental status [R41.82] Acute ischemic stroke (HCC) [I63.9] 65 y.o. male who presents with bilateral LE weakness and sensory loss from neck down, absent reflexes after syncopal episode while on toilet. Syncopal episode possible vasovagal in etiology. CT head and CTA unrevealing for acute pathology, CT cervical spine and shoulder XR show no acute abnormality. Trauma surgery consulted. Troponins trending upwards from NSTEMI. Patient's neurological exam on presentation concerning for stroke, symptoms have now resolved. Recommend obtaining MRI brain in AM, 2D ECHO and complete stroke workup. Cont Plavix and Lipitor. Multivessel CAD on cardiac catheterization. Cardiothoracic surgery consulted for possible evaluation for CABG. holding Plavix for 5 days before cardiac surgery. Plan: Patient status Admit as inpatient in the Progressive Unit/Step down Imaging: - MRI brain, cervical spine and lumbar spine without contrast: Acute infarct within the left thalamus and posterior limb of the left internal capsule was seen. Cerebral atrophy with mild chronic microvascular disease within the periventricular white matter. -Cardiology: Multivessel CAD on cardiac catheterization. Cardiothoracic surgery consulted for possible evaluation for CABG. Plavix on hold. 04/29 is day 1 - Heme-onc consulted: Okay to continue IV heparin. - Plavix 75 mg daily (on hold for planned cardiac surgery in 5 days) and Lipitor 40 mg daily. Note: Post cardiac surgery start Plavix with a loading dose 300 mg and then continue 75 mg daily dose. - Lipid panel (triglyceride 181, LDL 51, HDL 25 cholesterol 112) and Hb A1c. - Neurosurgery on board) - PT/OT. - Medical management as primary team. - Continue to follow-up. Consultations: IP CONSULT TO STROKE TEAM IP CONSULT TO NEUROSURGERY IP CONSULT TO TRAUMA SURGERY IP CONSULT TO INTERNAL MEDICINE IP CONSULT TO CARDIOLOGY IP CONSULT TO CASE MANAGEMENT IP CONSULT TO INFECTIOUS DISEASES IP CONSULT TO HEM/ONC IP CONSULT TO HEM/ONC IP CONSULT TO NEUROSURGERY IP CONSULT TO PHYSICAL MEDICINE REHAB IP CONSULT TO CARDIOTHORACIC SURGERY Follow-up further recommendations after discussing the case with attending The plan was discussed with the patient, patient's family and the medical staff. Patient is admitted as inpatient status because of co-morbidities listed above, severity of signs and symptoms as outlined, requirement for current medical therapies and most importantly because of direct risk to patient if care not provided in a hospital setting. Rogelio Epstein MD 04/29/2021 8:35 AM Copy sent to Dr. Alec Pinzon MD Associated attestation - Elisa Larsen MD - 04/29/2021 4:11 PM EDT Attending Physician Statement I have discussed the case of Yoel Van including pertinent history and exam findings with the resident/ PRIMARY SUBSTANCE ABUSE COUNSELOR. I have seen and examined the patient and the burnett elements of the encounter have been performed by me. I agree with the assessment, plan and orders as documented by the resident or PRIMARY SUBSTANCE ABUSE COUNSELOR with changes made to the note. Briefly, this is a 65 y.o. male with hx of was admitted on 04/24/2021 with altered mentation post fall. Patient fell down off of toilet seat. Denied loss of consciousness. After the fall patient had weakness in left lower extremity. Vitals on admit 178/96. Troponins were elevated at 125., Had cardiac catheterization revealing multivessel disease. Patient has been on IV heparin. MRI brain showed small acute infarct in left thalamus and left posterior limb of internal capsule. Patient is initiated on Plavix 75 mg daily along with atorvastatin 40 mg nightly for stroke prevention. CT cervical spine demonstrated spinal stenosis for which neurosurgery consulted. BP (!) 134/50 Pulse 64 Temp 98.1 F (36.7 C) (Oral) Resp 18 Ht 6' (1.829 m) Wt 223 lb (101.2 kg) SpO2 95% BMI 30.24 kg/m Blood pressure range: Systolic (24hrs), Av , Min:124 , Max:154 ; Diastolic (24hrs), Av, Min:50, Max:89 Impression and Plan: Mr. Yoel Van is a 65 y.o. male with Acute encephalopathy; significantly improved. Acute left thalamic ischemic stroke along with capsular ischemic stroke; he is presently on IV heparinization; was on Plavix qd but is kept on hold for upcoming intervention as per cardiology. Risk of stroke recurrence discussed with patient and his at bedside. Also discussed about risk of hemorrhagic stroke with heparinization. Elevated troponins; abnormal cardiac cath; multivessel coronary artery disease; on IV heparinization. Risk of hemorrhagic transformation of stroke discussed with patient and his at bedside. Any changes in neurologic status; CT head without contrast to be repeated ALLY. Cervical spondylosis with spinal stenosis; neurosurgery consulted. Comorbid conditions include hypertension, hyperlipidemia, diabetes, CAD. We will follow with you. Elisa Larsen MD 04/29/2021 4:08 PM Images from the original note were not included. [facility] Internal Medicine Teaching Residency Program Inpatient Daily Progress Note Patient: Yoel Van Date of : 1955 Acct: [id number] Room: [address] [place] [address]- Admit date: 04/24/2021 Today's date: 04/29/21 Number of days in the hospital: 4 SUBJECTIVE Admitting Diagnosis: CVA CC: Fall with acute encephalopathy Pt examined at bedside. Chart & results reviewed. Patient is s/p Diagnostic cath yesterday (04/28/21). -multivessel disease; referral for CT evaluation for CABG ECHO yesterday shows mild reduced LVEF 45-50% Patient is doing well. He denies chest pain, shortness of breath, dizziness, nausea, vomiting, abdominal pain or dysuria. He reports improvement with lower extremity weakness. Small acute infarct in left thalamus and left posterior limb of internal capsule. - Patient received 1 dose of Plavix on 04/28 before cath (after Neuro cleared for DAPT for NSTEMI) Plavix currently on hold for possible CABG- appreciate CTS recommendations Neuro- Atorvastatin 40 mg nightly for stroke prevention ID- No evidence of acute infection; no acute intervention regarding Osteomyelitis- ID signed off. Neurosurgery- No acute intervention for spinal stenosis ROS: Constitutional: negative for chills, fevers, sweats Respiratory: negative for cough, dyspnea on exertion, hemoptysis, shortness of breath, wheezing Cardiovascular: negative for chest pain, chest pressure/discomfort, lower extremity edema, palpitations Gastrointestinal: negative for abdominal pain, constipation, diarrhea, nausea, vomiting Neurological: negative for dizziness, headache BRIEF HISTORY The patient is a pleasant 65 y.o. male presents with a chief complaint of dizziness and fall at home. The patient has a past medical history of 2 CVA, DM 2 hypertension, CAD status post 3 stents. The patient reported he was to the bathroom and before he could use the bathroom he felt sudden weakness in both his lower extremities and he fell on the bathroom floor, and hit his head. Patient's came to help him get up in the bathroom and helped him sit on the toilet. The patient denies urinary incontinence, tongue biting or seizure-like activity. After the fall the patient reported feeling bilateral lower extremity weakness. The patient's checked his blood sugar after the fall which was 78. The patient had some juice and food. patient's reported mental status changes including continued cigarette after 2 weeks of quitting. Patient rested for 2 to 3 hours after the fall at home and patient's brought him to the ED due to his change of mental status. The ED patient was hemodynamically stable, afebrile, saturating over 95% on room air. Stroke alert was called and neuro was consulted. The patient was combative and cooperative in the ED and subsequently received Ativan 5 mg and Haldol 10 mg. Imaging showed no new acute findings. CTA head and neck showed bilateral carotid bifurcation atherosclerotic plaque resulting in approximately 4 to 40% left and 20% right stenosis of proximal ICAs. CT cervical spine showed mild central canal stenosis secondary to encroachment by disc osteophyte complex. CT abdomen pelvis showed sigmoid colon diverticulosis and severe bilateral iliac arterial atherosclerosis. Troponins 180 --> 175 --> 187 --> 199. EKG showed no significant changes as compared to the previous EKG. Blood sugar was 140. H&H stable, no signs of infection. Electrolytes are within normal limits. OBJECTIVE Vital Signs: BP (!) 140/68 Pulse 64 Temp 97.4 F (36.3 C) (Oral) Resp 16 Ht 6' (1.829 m) Wt 223 lb (101.2 kg) SpO2 97% BMI 30.24 kg/m Temp (24hrs), Av.8 F (36.6 C), Min:97.4 F (36.3 C), Max:98.4 F (36.9 C) In: - Out: 1350 [Urine:1350] Physical Exam: Constitutional: This is a well developed, well nourished, 30-34.9 - Obesity Grade I 65 y.o. year old male who is alert, oriented, cooperative and in no apparent distress. Head:normocephalic and atraumatic. EENT: PERRLA. No conjunctival injections. Septum was midline, mucosa was without erythema, exudates or cobblestoning. No thrush was noted. Neck: Supple without thyromegaly. No elevated JVP. Trachea was midline. Respiratory: Chest was symmetrical without dullness to percussion. Breath sounds bilaterally were clear to auscultation. There were no wheezes, rhonchi or rales. There is no intercostal retraction or use of accessory muscles. No egophony noted. Cardiovascular: Regular without murmur, clicks, gallops or rubs. Abdomen: Slightly rounded and soft without organomegaly. No rebound, rigidity or guarding was appreciated. Lymphatic: No lymphadenopathy. Musculoskeletal: Normal curvature of the spine. No gross muscle weakness. Extremities: No lower extremity edema, ulcerations, tenderness, varicosities or erythema. Muscle size, tone and strength are normal. No involuntary movements are noted. Skin: Warm and dry. Good color, turgor and pigmentation. No lesions or scars. No cyanosis or clubbing Neurological/Psychiatric: The patient's general behavior, level of consciousness, thought content and emotional status is normal. Medications: Scheduled Medications: lisinopril 40 mg Oral Daily sodium chloride flush 5-40 mL Intravenous 2 times per day insulin lispro 0-12 Units Subcutaneous TID WC insulin lispro 0-6 Units Subcutaneous Nightly nicotine 1 patch Transdermal Daily sodium chloride flush 5-40 mL Intravenous 2 times per day atorvastatin 40 mg Oral Daily gabapentin 600 mg Oral BID traZODone 200 mg Oral Nightly metoprolol tartrate 25 mg Oral BID pantoprazole 40 mg Oral Nightly Continuous Infusions: sodium chloride dextrose sodium chloride heparin (PORCINE) Infusion 18 Units/kg/hr (04/29/21 0022) PRN Medicationspotassium chloride, 40 mEq, PRN Or potassium alternative oral replacement, 40 mEq, PRN Or potassium chloride, 10 mEq, PRN sodium chloride flush, 5-40 mL, PRN sodium chloride, 25 mL, PRN acetaminophen, 650 mg, Q4H PRN glucose, 15 g, PRN dextrose, 12.5 g, PRN glucagon (rDNA), 1 mg, PRN dextrose, 100 mL/hr, PRN labetalol, 20 mg, Q4H PRN sodium chloride flush, 5-40 mL, PRN sodium chloride, 25 mL, PRN ondansetron, 4 mg, Q8H PRN Or ondansetron, 4 mg, Q6H PRN polyethylene glycol, 17 g, Daily PRN acetaminophen, 650 mg, Q6H PRN Or acetaminophen, 650 mg, Q6H PRN heparin (porcine), 4,000 Units, PRN heparin (porcine), 2,000 Units, PRN nitroGLYCERIN, 0.4 mg, Q5 Min PRN Diagnostic Labs: CBC: Recent Labs 04/27/21 0311 04/29/21 0325 WBC 7.9 7.5 RBC 4.22 4.10* HGB 12.9* 12.4* HCT 38.2* 37.7* MCV 90.5 92.0 RDW 13.9 14.1 PLT 223 202 BMP: Recent Labs 04/27/21 1150 04/28/21 0240 04/29/21 0325 NA 137 136 138 K 3.9 3.7 3.9 CL 104 104 106 CO2 20 21 22 BUN 11 10 11 CREATININE 0.71 0.77 0.72 BNP: No results for input(s): BNP in the last 72 hours. PT/INR: No results for input(s): PROTIME, INR in the last 72 hours. APTT: Recent Labs 04/28/21 2334 04/29/21 0325 04/29/21 0640 APTT 49.2* 69.1* 69.2* CARDIAC ENZYMES: No results for input(s): CKMB, CKMBINDEX, TROPONINI in the last 72 hours. Invalid input(s): CKTOTAL;3 FASTING LIPID PANEL: Lab Results Component Value Date CHOL 112 04/26/2021 HDL 25 (L) 04/26/2021 TRIG 181 (H) 04/26/2021 LIVER PROFILE: No results for input(s): AST, ALT, ALB, BILIDIR, BILITOT, ALKPHOS in the last 72 hours. MICROBIOLOGY: Lab Results Component Value Date/Time CULTURE NO GROWTH 4 DAYS 04/25/2021 08:33 PM CULTURE NO GROWTH 4 DAYS 04/25/2021 08:33 PM Imaging: CT ABDOMEN PELVIS WO CONTRAST Additional Contrast? None Result Date: 04/25/2021 1. No acute abnormality of the abdomen or pelvis. 2. Sigmoid colon diverticulosis without evidence of diverticulitis. 3. Bifemoral arterial graft, not adequately evaluated in absence of CT angiographic study. 4. Severe bilateral iliac arterial atherosclerosis. 5. L5/S1 severe bilateral neural foraminal stenosis secondary to encroachment by disc osteophyte complex. CT HEAD WO CONTRAST Result Date: 04/24/2021 No evidence for acute intracranial hemorrhage, territorial infarction or intracranial mass lesion. Chronic lacunar infarction right pacheco radiata. Mild chronic microangiopathic ischemic disease. Mild generalized volume loss. CT CERVICAL SPINE WO CONTRAST Result Date: 04/24/2021 1. No acute abnormality of the cervical spine. 2. C5/C6 moderate, C6/C7 mild central canal stenosis secondary to encroachment by disc osteophyte complex. 3. C3/C4 mild bilateral, C5/C6 moderate bilateral, C6/C7 severe left and moderate right neural foraminal stenosis secondary to encroachment by disc osteophyte complex. MRI CERVICAL SPINE WO CONTRAST Result Date: 04/26/2021 Congenital spinal canal stenosis superimposed moderate diffuse degenerative disc disease Moderate central canal stenosis at C5-C6 and C6-C7 and to slightly lesser extent at C3-C4. Multilevel bilateral neural foraminal stenosis as noted above most severe C3-C4 and C6-C7. MRI LUMBAR SPINE WO CONTRAST Result Date: 04/26/2021 Edema within the endplates at L5-S1 presence of high T2 signal within disc space. These changes are suspicious for acute discitis/osteomyelitis. No epidural abscess or significant paravertebral inflammation is identified. Correlation with C-reactive protein is suggested. Severe bilateral foraminal stenosis at L5-S1. Mild bilateral foraminal stenosis at L4-L5. Borderline congenital spinal canal stenosis. XR SHOULDER LEFT (MIN 2 VIEWS) Result Date: 04/24/2021 No evidence of an acute fracture involving the left shoulder XR CHEST PORTABLE Result Date: 04/24/2021 Marginal inspiration, without evidence of acute cardiopulmonary disease CTA HEAD NECK W CONTRAST Result Date: 04/24/2021 1. Bilateral carotid bifurcation atherosclerotic plaque resulting approximately 40% left and 20% right stenosis of the proximal internal carotid arteries. Finding is compatible with 16-49% stenosis per sonographic NASCET index criteria. 2. Bilateral internal carotid artery cavernous segment scattered atherosclerotic calcification with up to approximately 25% bilateral arterial stenosis. Finding is compatible with 16-49% stenosis per sonographic NASCET index criteria. 3. Bilateral vertebral artery V4 segment atherosclerotic calcification resulting in focal high-grade stenosis of the left vertebral artery in approximately focal 50% stenosis of the right vertebral artery. 4. Left vertebral artery mid cervical segment approximately 70% stenosis secondary to encroachment by atherosclerotic plaque, as discussed above. RECOMMENDATIONS: For clinical suspicion of acute ischemia, recommend MRI brain with diffusion-weighted imaging for further evaluation MRI BRAIN WO CONTRAST Result Date: 04/26/2021 Small acute infarct within the left thalamus and posterior limb of the left internal capsule. Mild chronic microvascular disease within the periventricular white matter. Moderate cerebral atrophy. Susceptibility within the right parietal lobe periventricular white matter which may represent a cavernoma versus old hemorrhage. CATH: 04/28/21 Procedure Procedure Type: Diagnostic procedure: Lt Heart, Coronary Angio, LVgram Complications: - No complication Indications: - Unstable angina - Coronary risk factors - Previous stent placement Conclusions Procedure Summary Multivessel CAD Preserved LV function Recommendations CV surgery consult for CABG ASSESSMENT & PLAN ASSESSMENT / PLAN: Active Problems: Acute ischemic stroke (HCC) NSTEMI (non-ST elevated myocardial infarction) (HCC) Altered mental status DM (diabetes mellitus), type 2 (HCC) Discitis of lumbosacral region Hypokalemia Hypomagnesemia History of GI bleed Resolved Problems: * No resolved hospital problems. * IMPRESSION This is a 65 y.o. male who presented after a fall with acute encephalopathy. Active Problems: Fall with head injury and acute encephalopathy Dx: Acute ischemic stroke -Continue atorvastatin, Plavix is held; patient currently on heparin drip for concern of NSTEMI; avoid heparin bolus per Neurology -Neurology following - Patient received 1 dose of Plavix on -04/28 - after Neurology cleared him for DAPT for NSTEMI -Bilateral lower extremity weakness persist but has been improving NSTEMI (non-ST elevated myocardial infarction) (HCC) Plan: Troponins 180 --> 175 --> 187 --> 199 --> 267. EKG showed no significant changes as compared to the previous EKG. -Patient is s/p Diagnostic cath yesterday (04/28/21). -multivessel disease; referral for CT evaluation for CABG -We will continue Heparin gtt - ECHO yesterday shows mild reduced LVEF 45-50% -Patient received 1 dose of Plavix on 04/28 before cath (after Neuro cleared for DAPT for NSTEMI) -Plavix currently on hold for possible CABG- appreciate CTS recommendations -Awaiting CTS evaluation and recommendation CAD s/p 3 stent placement - Continue Lipitor, [place]op[place] 25 mg BID, Labetalol 20 mg IV PRN, Discitis/ osteomyelitis of L5-S1 -ID was consulted-we will monitor and and does not require any acute intervention for now- ID signed off - Neurosurgery- no acute intervention required for discitis -Repeat MRI after 6 weeks as outpatient Type II DM -Blood sugar level uncontrolled. Hold home medication -We will continue medium dose sliding scale insulin DVT ppx: Heparin gtt GI ppx: Protonix PT/OT/SW- Onboard Discharge Planning: application manager consulted, will follow up Gee Parnell MD Internal Medicine Resident, PGY-1 [facility]; [place], [place] 04/29/2021, 7:58 AM Patient seen and examined. Acute stroke this admission on MRI. History of TIA and hemorraghic CVA. Took Plavix this morning. Will get full workup. Both surgeons in surgery will see in morning. JEWELL Murillo Images from the original note were not included. [facility] Progress Note Yoel Van Date: 04/28/2021 LOS: 3 Reason for F/U : Discitis/osteomyelitis Impression : 1. Acute infarct in the left thalamus and posterior limb of the left internal capsule 2. Non-ST elevation myocardial infarction Status post cardiac catheterization 04/28/2021 with multivessel coronary artery disease and has been referred for coronary artery bypass grafting 3. Changes of discitis/osteomyelitis at L5-S1 by MRI imaging 4. Peripheral arterial disease 5. Diabetes mellitus type 2 6. History of prior CVA Recommendations: The patient's MRI of the lumbar spine was discussed with the neurosurgery team earlier today. The neurosurgery team did not feel that there were major changes consistent with infection. Again clinically the patient is doing well with no low back pain and laboratory markers are not very elevated. From an infectious disease review there is no evidence of an acute infection in the lumbar spine at this time. The patient can proceed with the cardiac work-up and planned coronary artery bypass grafting. I will sign off and if we can be of any further assistance please do not hesitate to contact me. The patient will need outpatient follow-up and potential repeat MRI imaging in the future Infection Control Recommendations: Bledsoe precautions Discharge Planning: Patient will need Midline Catheter Insertion/ PICC line Insertion: No Patient will need: Home IV , Infusion Center, SNF, LTAC: Undetermined Patient willneed outpatient wound care: No Medical Decision making / Summary of Stay: Yoel Van is a 65 y.o.-year-old male who was initially admitted on 04/24/2021. Yoel has a history of diabetes mellitus, hypertension, hyperlipidemia, coronary artery disease status post stenting to RCA and circumflex, severe peripheral arterial disease status post right femoral-popliteal bypass grafting basal ganglia CVA in 2018, right parietal lobe hemorrhage in October 2019 while on dual antiplatelets therapy, compound MTHFR mutation, elevated lipoprotein a level, and tobacco dependence. He does have residual left-sided weakness. The patient was in the toilet fell and hit his head and was complaining of shoulder and neck pain. The patient had weakness in his legs unable to ambulate and throughout the day the legs and arms became more weak requiring help getting in and out of the vehicle and assistance of a wheelchair when he typically ambulates at home without assistance. The patient also became more altered with slurred speech as the day progressed which prompted the emergency room visit. The patient was diagnosed with a non-ST elevation myocardial infarction and the weakness did continue to improve while the patient was in the emergency department. Chest x-ray showed marginal inspiration without evidence of acute cardiopulmonary disease Shoulder x-ray showed no evidence of acute fracture involving the left shoulder. The CT of the head did not show any hemorrhage. CTA of the head and neck no large vessel occlusion. CT of the cervical spine with no acute abnormality of the cervical spine with C5-C6 moderate C6-C7 mild central canal stenosis secondary to encroachment by disc osteophyte complex. C3-C4 mild bilateral C5-C6 mild bilateral C6-C7 severe left and moderate right neuroforaminal stenosis secondary to encroachment by disc osteophyte complex. A CT of the abdomen pelvis was done with no acute abnormality of the abdominal pelvis sigmoid colon diverticulosis without evidence of diverticulitis and bifemoral arterial graft severe bilateral iliac arterial atherosclerosis and severe L5-S1 bilateral neural foraminal stenosis secondary to encroachment by disc osteophyte complex. The patient subsequently did not have any pain and was not experiencing any weakness or numbness to the upper or lower extremities. The patient has been seen by multiple consultants including trauma surgery, neurology, neurosurgery MRIs of the brain, cervical spine, and lumbar spine were recommended and the patient did have some agitation and was trying to leave to go home. The patient was seen by the cardiology service and has been continued on heparin and given his previous history of stents and multiple risk factors the patient had an echocardiogram ordered as well as consideration for cardiac catheterization. MRIs were subsequently completed and there is concern for discitis/osteomyelitis at L5-S1 with an elevated CRP and I was asked to evaluate and help with evaluation and management The MRI of the brain noted an acute infarct within the left thalamus and posterior limb of the left internal capsule The patient is awake and alert and does not have any complaints at this point in time. Denies any subjective fevers but he does report chronic chills, no chest pains or palpitations, no abdominal pain nausea vomiting or diarrhea. The weakness that he had previously is now resolved. He does not report any low back pain at all. Current evaluation:04/28/2021 BP (!) 145/96 Pulse 65 Temp 97.5 F (36.4 C) (Oral) Resp 18 Ht 6' (1.829 m) Wt 223 lb (101.2 kg) SpO2 97% BMI 30.24 kg/m Temperature Range: Temp: 97.5 F (36.4 C) Temp Av.7 F (36.5 C) Min: 97.5 F (36.4 C) Max: 98 F (36.7 C) The patient had a cardiac catheterization done earlier today that showed Findings: LMCA: 20% ostial stenosis LAD: Mid area 75%stenosis Distal 80% stenosis D1: proximal 80-90% stenosis LCx: Proximal 90% stenosis RCA: Patent mid stent area with 25% stenosis PDA: proximal 75% stenosis Coronary Tree Dominance: Right LV Analysis LV function assessed as:Normal. Conclusions: Multivessel CAD Preserved LV function The patient has been referred for coronary artery bypass grafting. He is seen in CVICU He does not have any new complaints and remains pain-free in terms of his back pain. No subjective fevers or chills. Review of Systems Constitutional: Negative. Respiratory: Negative. Cardiovascular: Negative. Gastrointestinal: Negative. Genitourinary: Negative. Musculoskeletal: Negative. Allergic/Immunologic: Negative. Neurological: Negative. Physical Examination : Physical Exam HENT: Head: Normocephalic and atraumatic. Eyes: General: No scleral icterus. Pupils: Pupils are equal, round, and reactive to light. Cardiovascular: Rate and Rhythm: Normal rate and regular rhythm. Heart sounds: Normal heart sounds. No murmur heard. Pulmonary: Effort: Pulmonary effort is normal. Breath sounds: Normal breath sounds. Abdominal: General: Bowel sounds are normal. Palpations: Abdomen is soft. There is no mass. Tenderness: There is no abdominal tenderness. Musculoskeletal: General: Normal range of motion. Cervical back: Normal range of motion and neck supple. Lymphadenopathy: Cervical: No cervical adenopathy. Skin: General: Skin is warm and dry. Findings: No rash. Neurological: Mental Status: He is alert and oriented to person, place, and time. Laboratory data: I have independently reviewed the followinglabs: CBC with Differential: Recent Labs 04/27/21 0311 WBC 7.9 HGB 12.9* HCT 38.2* PLT 223 BMP: Recent Labs 04/27/21 1150 04/28/21 0240 NA 137 136 K 3.9 3.7 CL 104 104 CO2 20 21 BUN 11 10 CREATININE 0.71 0.77 MG 1.8 1.5* Hepatic Function Panel: No results for input(s): PROT, LABALBU, BILIDIR, IBILI, BILITOT, ALKPHOS, ALT, AST in the last 72 hours. No results found for: PROCAL Lab Results Component Value Date CRP 8.1 04/24/2021 CRP 2.7 05/08/2020 Lab Results Component Value Date SEDRATE 25 (H) 04/24/2021 No results found for: DDIMER No results found for: FERRITIN No results found for: LDH Lab Results Component Value Date FIBRINOGEN 394 05/08/2020 Results in Past 30 Days Result Component Current Result Ref Range Previous Result Ref Range SARS-CoV-2, Rapid Not Detected (04/25/2021) Not Detected Not in Time Range Lab Results Component Value Date COVID19 Not Detected 04/25/2021 No results for input(s): [facility] in the last 72 hours. Imaging Studies: No new imaging Cultures: Culture, Blood 1 [[id number]] Collected: 04/25/212032 Order Status: Completed Specimen: Blood Updated: 04/28/21918 Specimen Description .BLOOD Special Requests R ARM 1 ML Culture NO GROWTH 3 DAYS Culture, Blood 1 [[id number]] Collected: 04/25/212032 Order Status: Completed Specimen: Blood Updated: 04/28/21918 Specimen Description .BLOOD Special Requests L ARM 2 ML Culture NO GROWTH 3 DAYS COVID-19, Rapid [[id number]] Collected: 04/25/21 004 Order Status: Completed Specimen: Nasopharyngeal Swab Updated: 04/25/21110 Specimen Description .NASOPHARYNGEAL SWAB SARS-CoV-2, Rapid Not Detected Comment: Rapid NAAT: The specimen is NEGATIVE for SARS-CoV-2, the novel coronavirus associated with COVID-19. The ID NOW COVID-19 assay is designed to detect the virus that causes COVID-19 in patients with signs and symptoms of infection who are suspected of COVID-19. An individual without symptoms of COVID-19 and who is not shedding SARS-CoV-2 virus would expect to have a negative (not detected) result in this assay. Negative results should be treated as presumptive and, if inconsistent with clinical signs and symptoms or necessary for patient management, should be tested with an alternative molecular assay. Negative results do not preclude SARS-CoV-2 infection and should not be used as the sole basis for patient management decisions. Fact sheet for Healthcare Providers: https://www.fda.gov/media/881505/d ownload Fact sheet for Patients: https://www.fda.gov/media/977599/d ownload Methodology: Isothermal Nucleic Acid Amplification Medications: sodium chloride flush 5-40 mL Intravenous 2 times per day insulin lispro 0-12 Units Subcutaneous TID WC insulin lispro 0-6 Units Subcutaneous Nightly nicotine 1 patch Transdermal Daily sodium chloride flush 5-40 mL Intravenous 2 times per day atorvastatin 40 mg Oral Daily gabapentin 600 mg Oral BID traZODone 200 mg Oral Nightly metoprolol tartrate 25 mg Oral BID pantoprazole 40 mg Oral Nightly [facility] Zandra Pink MD [employer] messaging OFFICE: Thank you for allowing us to participate in the care of this patient. Please call with questions. This note iscreated with the assistance of a speech recognition program. While intending to generate a document that actually reflects the content of the visit, the document can still have some errors including those of syntax andsound a like substitutions which may escape proof reading. In such instances, actual meaning can be extrapolated by contextual diversion. Consult noted. Patient had cardiac catheterization today and has no PT/OT evals yet. Will see tomorrow. Images from the original note were not included. Physical Therapy Physical Therapy Cancel Note DATE: 04/28/2021 NAME: Yoel Van : 1955 Patient not seen this date for Physical Therapy due to: Other: cardiac cath This treatment/evaluation completed by signing SPT. Signing PT agrees with treatment and documentation. Images from the original note were not included. Occupational Therapy [facility] Occupational Therapy Not Seen Note DATE: 04/28/2021 NAME: Yoel Van : 1955 Patient not seen this date for Occupational Therapy due to: Surgery/Procedure: cardiac cath Next Scheduled Treatment: 04/29 Echo completed in the echo lab Images from the original note were not included. [employer] Pre-Procedure Conscious Sedation Data Pre Procedure Conscious Sedation Data: ASA Class: [] I [x] II [] III [] IV Mallampati Class: [] I [x] II [] III [] IV Jing Levy MD Fellow Cardiovascular Disease [facility] Images from the original note were not included. [employer] Progress Note Date: 04/28/2021 Patient name: Yoel Van Date of admission: 04/24/2021 9:50 PM Date of : 1955 PCP: Alec Pinzon MD Reason for Admission: NSTEMI (non-ST elevated myocardial infarction) ([facility]) [I21.4] Subjective: Clinical Changes /Abnormalities: Patient seen and examined in room with at bedside after discussion with RN. Denies chest pain or SOB. SR on tele HR 70 Replacing K and Mag today. Plan for CATH today. Heparin IV infusing. Review of Systems Medications: Scheduled Meds: magnesium sulfate 1,000 mg Intravenous Once insulin lispro 0-12 Units Subcutaneous TID WC insulin lispro 0-6 Units Subcutaneous Nightly nicotine 1 patch Transdermal Daily sodium chloride flush 5-40 mL Intravenous 2 times per day atorvastatin 40 mg Oral Daily gabapentin 600 mg Oral BID traZODone 200 mg Oral Nightly metoprolol tartrate 25 mg Oral BID clopidogrel 75 mg Oral Daily pantoprazole 40 mg Oral Nightly Continuous Infusions: dextrose sodium chloride heparin (PORCINE) Infusion 15.78 Units/kg/hr (04/28/21 2838) CBC: Recent Labs 04/25/21 1329 04/27/21 0311 WBC 6.7 7.9 HGB 13.8 12.9* PLT 195 223 BMP: Recent Labs 04/27/21 0311 04/27/21 1150 04/28/21 0240 NA 136 137 136 K 3.5* 3.9 3.7 CL 103 104 104 CO2 22 20 21 BUN 11 11 10 CREATININE 0.80 0.71 0.77 GLUCOSE 189* 280* 250* Hepatic:No results for input(s): AST, ALT, ALB, BILITOT, ALKPHOS in the last 72 hours. Troponin: Recent Labs 04/25/21203204/26/21 0023 04/26/21 0655 TROPHS 187* 199* 267* BNP: No results for input(s): BNP in the last 72 hours. Lipids: Recent Labs 04/26/2122 CHOL 112 HDL 25* INR: No results for input(s): INR in the last 72 hours. DIAGNOSTIC DATA EKG 04/26/2021 Normal sinus rhythm Normal ECG When compared with ECG of 24-APR-2021 21:59, No significant change was found ECHO ORDERED PENDING ECHO 05/08/2020 Summary Normal left ventricle size and function with an estimated EF 50- 55%. Moderate left ventricular hypertrophy. Normal right ventricular size and function. Left atrial dilatation. Negative bubble study, with and without Valsalva maneuver, no suggestion of inter-atrial shunt. Mild mitral regurgitation. Aortic root is mildly dilated. (4.3 cm) No significant pericardial effusion is seen. CATH PLANNED FOR Wednesday. Objective: Vitals: BP 133/64 Pulse 66 Temp 97.6 F (36.4 C) (Oral) Resp 16 Ht 6' (1.829 m) Wt 223 lb (101.2 kg) SpO2 95% BMI 30.24 kg/m General appearance: alert and cooperative with exam HEENT: Head: Normocephalic, no lesions, without obvious abnormality. Neck:no JVD, trachea midline, no adenopathy Lungs: Clear to auscultation Heart: Regular rate and rhythm, s1/s2 auscultated, no murmurs SR on tele HR 65 Abdomen: soft, non-tender, bowel sounds active Extremities: no edema Neurologic: not done Assessment / Acute Cardiac Problems: 1. NSTEMI likely type I with elevated troponin now with a flat trend 180 [id number]. EKG without ischemic changes 2. CAD s/p stents to RCA and circumflex, FOOT CASTER obtuse branch at [facility] man years ago 3. Thoracic aortic aneurysm about 4.4 cm. Follows with cardiology 4. Severe PAD s/p right femoral-popliteal bypass graft 5. Echo 05/08/2020 with preserved EF, moderate LVH, dilated left atrium 6. Diabetes mellitus 7. History of ischemic stroke later converted to hemorrhagic stroke while on DAPT. 8. Status post fall likely TIA Vs syncope Vs seizure 9. Multifocal intracranial/extracranial atherosclerotic disease Patient Active Problem List: Acute cerebrovascular accident (CVA) (HCC) Intraparenchymal hemorrhage of brain (HCC) Cerebrovascular accident (CVA) due to embolism of precerebral artery ([facility]) Memory impairment NSTEMI (non-ST elevated myocardial infarction) ([facility]) Altered mental status Plan of Treatment: 1. NSTEMI with elevated troponin. [phone] Plan for cardiac cath today per Dr Dumont. I have discussed risks (including but not limited to vascular injury, infection, hematoma, contrast induced kidney dysfunction, CVA and IA), benefits, alternatives in detail. All questions answered. Patient agrees to proceed. laboratory cureman update. 2. Awaiting ECHO with Bubble study. 3. Continue IV heparin, statin, BB 4. CVA per neurology small acute ischemic infarct. okay to continue IV heparin and Plavix per neurology. 5. ID following. Consult today noted does not advocate for any invasive testing at this time. Per PS message ID Okay to proceed with CATH, there is no contraindication from ID standpoint. 6. Keep K > 4.0 and Mag > 2.0 K 3.7 and Mag 1.5 Replace this AM. 7. Rest of care managed per Primary Team. [employer] [phone] Report given to [facility] Neurology IN-PATIENT SERVICE [facility] HISTORY AND PHYSICAL EXAMINATION Date: 04/28/2021 Patient name: Yoel Van Date of admission: 04/24/2021 9:50 PM Account: [id number] Date of : 1955 PCP: Alec Pinzon MD Room: [address] [place] [address] Code Status: Full Code Chief Complaint: Chief Complaint Patient presents with Altered Mental Status History Obtained From: Patient was seen and evaluated the bedside. He was alert and oriented x3. He denied any chest pain. Patient had power 4/5 with decreased sensation on the right lower extremity. Patient also had unsteady gait and when he stands up he leans on the right side. Patient is scheduled for cardiac catheterization and is currently on heparin. Family has decided to go for cardiac catheterization. To have multivessel coronary artery disease and cardiothoracic surgeon has been consulted for possible evaluation for CABG. History of Present Illness: 65 y.o. male who presents after falling while on the toilet. Patient has a medical history of type 2 diabetes, essential hypertension, obesity, hyperlipidemia right-sided coronary radiata infarction in Aug 2019, and right parietal hemorrhage in 2019 while being treated with DAPT. Currently patient takes Plavix monotherapy 75 mg. Patient reportedly lost consciousness while on the toilet and fell onto his right side, hitting his head. Patient's was able to help the patient back up, however they noticed lower extremity weakness at that time. Patient had no difficulty emptying his bowels but had progressively worsening lower extremity weakness as the day went on. Patient had to use a walker to ambulate, usually does not use any assistive devices. On presentation to the ER, patient is wearing a C-collar and has bilateral lower extremity weakness and numbness. He does not react to noxious stimuli applied to either upper or lower extremities. He is unable to tell me the month and his age, but is complaining of left-sided shoulder pain and a runny nose. He is also unable to follow two-step commands, and speech is slightly slurred according to his . Blood pressures 178/96. Troponin elevated 125>180. CT head showed no evidence for acute intracranial hemorrhage, infarction or mass lesion. It did demonstrate chronic lacunar infarction in the right pacheco radiata and mild chronic microangiopathic ischemic disease. CTA head and neck did not reveal any significant stenosis correlating with patient's symptoms. X-ray shoulder and CT cervical spine did not show any acute abnormalities. Patient's exam is variable. Upon reevaluation, patient's strength is 5/5 with no deficits. Past Medical History: Past Medical History: Diagnosis Date Cerebral artery occlusion with cerebral infarction (HCC) Diabetes mellitus (HCC) Headache Hyperlipidemia Hypertension Past Surgical History: Past Surgical History: Procedure Laterality Date CARDIAC SURGERY ROTATOR CUFF REPAIR ROTATOR CUFF REPAIR Medications Prior to Admission: Prior to Admission medications Medication Sig Start Date End Date Taking? Authorizing Provider varenicline (CHANTIX STARTING MONTH RYNE) 0.5 MG X 11 & 1 MG X 42 tablet Chantix Starting Month Box 0.5 mg (11)-1 mg (42) tablets in dose pack Historical Provider, diclofenac sodium 1 % GEL APPLY TO THE AFFECTED AREA(S) FOUR TIMES DAILY NEEDED (TRANSDERMALLY) 12/07/19 Historical Provider, clopidogrel (PLAVIX) 75 MG tablet clopidogrel 75 mg tablet Historical Provider, pioglitazone (ACTOS) 30 MG tablet Take 30 mg by mouth daily Historical Provider, AMITRIPTYLINE HCL PO Take 150 mg by mouth Historical Provider, Carvedilol (COREG PO) Take 37.5 mg by mouth 2 times daily Historical Provider, gabapentin (NEURONTIN) 600 MG tablet Take 600 mg by mouth 2 times daily. Historical Provider, glipiZIDE (GLUCOTROL XL) 10 MG extended release tablet Take 10 mg by mouth daily Historical Provider, SITagliptin (JANUVIA) 100 MG tablet Take 100 mg by mouth daily Historical Provider, atorvastatin (LIPITOR) 40 MG tablet Take 40 mg by mouth daily Historical Provider, lisinopril (PRINIVIL;ZESTRIL) 40 MG tablet Take 40 mg by mouth daily Historical Provider, metFORMIN (GLUCOPHAGE) 1000 MG tablet Take 1,000 mg by mouth 2 times daily (with meals) Historical Provider, nitroGLYCERIN (NITROSTAT) 0.[address] 0.4 mg under the tongue every 5 minutes as needed for Chest pain up to max of 3 total doses. If no relief after 1 dose, call 911. Historical Provider, oxyCODONE-acetaminophen (PERCOCET) 5-325 MG per tablet Take 2 tablets by mouth every 4 hours as needed for Pain. Historical Provider, Pantoprazole Sodium (PROTONIX PO) Take 80 mg by mouth nightly Historical Provider, TRAZODONE HCL PO Take 200 mg of ampicillin by mouth nightly Historical Provider, Allergies: Patient has no known allergies. Social History: Tobacco: reports that he has been smoking cigarettes. He has a 22.50 pack-year smoking history. He has never used smokeless tobacco. Alcohol: reports previous alcohol use. Drug Use: reports no history of drug use. Family History: Family History Problem Relation Age of Onset Heart Disease Mother Stroke Mother Cancer Father lung Cancer Sister Cancer Brother throat Cancer Maternal Grandmother breast Alcohol Abuse Maternal Grandfather Other Paternal Grandmother leukemia Heart Attack Paternal Grandfather Review of Systems: Review of Systems Constitutional: Negative for fatigue. HENT: Negative for ear discharge, nosebleeds and sinus pressure. Eyes: Negative for pain. Respiratory: Negative for chest tightness and shortness of breath. Cardiovascular: Negative for chest pain, palpitations and leg swelling. Gastrointestinal: Negative for abdominal distention, diarrhea and vomiting. Endocrine: Negative for heat intolerance and polyphagia. Genitourinary: Negative for enuresis, hematuria and scrotal swelling. Musculoskeletal: Positive for gait problem. Negative for neck pain. Allergic/Immunologic: Negative for environmental allergies. Neurological: Negative for tremors, seizures, facial asymmetry, speech difficulty, weakness, numbness and headaches. Psychiatric/Behavioral: Negative for dysphoric mood and self-injury. Physical Exam: BP 133/71 Pulse 69 Temp 97.9 F (36.6 C) (Oral) Resp 16 Ht 6' (1.829 m) Wt 223 lb (101.2 kg) SpO2 91% BMI 30.24 kg/m Temp (24hrs), Av.9 F (36.6 C), Min:97.5 F (36.4 C), Max:98.4 F (36.9 C) Recent Labs 04/27/21 1414 04/27/21 1746 04/27/21 2036 04/27/21 2328 POCGLU 237* 230* 254* 284* Intake/Output Summary (Last 24 hours) at 04/28/2021 0740 Last data filed at 04/27/2021 1845 Gross per 24 hour Intake 919.82 ml Output 400 ml Net 519.82 ml Neurologic Exam Mental Status Oriented to person, place, and time. Registration: recalls 1 of 3 objects. Follows 3 step commands. Attention: decreased. Concentration: normal. Level of consciousness: alert Knowledge: good and consistent with education. Cranial Nerves Cranial nerves II through XII intact. Motor Exam Muscle bulk: normal Strength Right neck flexion: 5/5 Left neck flexion: 5/5 Right neck extension: 5/5 Left neck extension: 5/5 Right deltoid: 5/5 Left deltoid: 5/5 Right biceps: 5/5 Left biceps: 5/5 Right triceps: 5/5 Left triceps: 5/5 Right wrist flexion: 5/5 Left wrist flexion: 5/5 Right wrist extension: 5/5 Left wrist extension: 5/5 Right interossei: 5/5 Left interossei: 5/5 Right abdominals: 5/5 Left abdominals: 5/5 Right iliopsoas: 5/5 Left iliopsoas: 5/5 Right quadriceps: 5/5 Left quadriceps: 5/5 Right hamstrin/5 Left hamstrin/5 Right glutei: 5/5 Left glutei: 5/5 Right anterior tibial: 5/5 Left anterior tibial: 5/5 Right posterior tibial: 5/5 Left posterior tibial: 5/5 Right peroneal: 5/5 Left peroneal: 5/5 Right gastroc: 5/5 Left gastroc: 5/5 Sensory Exam Light touch normal. Gait, Coordination, and Reflexes Gait Gait: normal Tremor Resting tremor: absent Reflexes Right brachioradialis: 2+ Left brachioradialis: 2+ Right biceps: 2+ Left biceps: 2+ Right triceps: 2+ Left triceps: 2+ Right patellar: 2+ Left patellar: 2+ Right achilles: 2+ Left achilles: 2+ Right script artist: 2+ Left script artist: 2+ Investigations: Laboratory Testing: Recent Results (from the past 24 hour(s)) APTT Collection Time: 04/27/21 11:50 AM Result Value Ref Range PTT 68.8 (H) 20.5 - 30.5 sec Basic Metabolic Panel Collection Time: 04/27/21 11:50 AM Result Value Ref Range Glucose 280 (H) 70 - 99 mg/dL BUN 11 8 - 23 mg/dL CREATININE 0.71 0.70 - 1.20 mg/dL Bun/Cre Ratio NOT REPORTED 9 - 20 Calcium 9.2 8.6 - 10.4 mg/dL Sodium 137 135 - 144 mmol/L Potassium 3.9 3.7 - 5.3 mmol/L Chloride 104 98 - 107 mmol/L CO2 20 20 - 31 mmol/L Anion Gap 13 9 - 17 mmol/L GFR Non- >60 >60 mL/min GFR >60 >60 mL/min GFR Comment GFR Staging NOT REPORTED MAGNESIUM Collection Time: 04/27/21 11:50 AM Result Value Ref Range Magnesium 1.8 1.6 - 2.6 mg/dL POC Glucose Fingerstick Collection Time: 04/27/21 2:14 PM Result Value Ref Range POC Glucose 237 (H) 75 - 110 mg/dL APTT Collection Time: 04/27/21 2:43 PM Result Value Ref Range PTT 71.0 (H) 20.5 - 30.5 sec POC Glucose Fingerstick Collection Time: 04/27/21 5:46 PM Result Value Ref Range POC Glucose 230 (H) 75 - 110 mg/dL APTT Collection Time: 04/27/21 8:26 PM Result Value Ref Range PTT 55.7 (H) 20.5 - 30.5 sec POC Glucose Fingerstick Collection Time: 04/27/21 8:36 PM Result Value Ref Range POC Glucose 254 (H) 75 - 110 mg/dL POC Glucose Fingerstick Collection Time: 04/27/21 11:28 PM Result Value Ref Range POC Glucose 284 (H) 75 - 110 mg/dL Basic Metabolic Panel w/ Reflex to MG Collection Time: 04/28/21 2:40 AM Result Value Ref Range Glucose 250 (H) 70 - 99 mg/dL BUN 10 8 - 23 mg/dL CREATININE 0.77 0.70 - 1.20 mg/dL Bun/Cre Ratio NOT REPORTED 9 - 20 Calcium 9.0 8.6 - 10.4 mg/dL Sodium 136 135 - 144 mmol/L Potassium 3.7 3.7 - 5.3 mmol/L Chloride 104 98 - 107 mmol/L CO2 21 20 - 31 mmol/L Anion Gap 11 9 - 17 mmol/L GFR Non- >60 >60 mL/min GFR >60 >60 mL/min GFR Comment GFR Staging NOT REPORTED APTT Collection Time: 04/28/21 2:40 AM Result Value Ref Range PTT 42.9 (H) 20.5 - 30.5 sec Assessment : Primary Problem <principal problem not specified> Active Hospital Problems Diagnosis Date Noted DM (diabetes mellitus), type 2 (HCC) [E11.9] 04/27/2021 Discitis of lumbosacral region [M46.47] 04/27/2021 Hypokalemia [E87.6] 04/27/2021 Hypomagnesemia [E83.42] 04/27/2021 NSTEMI (non-ST elevated myocardial infarction) ([facility]) [I21.4] 04/25/2021 Altered mental status [R41.82] Stroke ([facility]) [I63.9] 65 y.o. male who presents with bilateral LE weakness and sensory loss from neck down, absent reflexes after syncopal episode while on toilet. Syncopal episode possible vasovagal in etiology. CT head and CTA unrevealing for acute pathology, CT cervical spine and shoulder XR show no acute abnormality. Trauma surgery consulted. Troponins trending upwards from NSTEMI. Patient's neurological exam on presentation concerning for stroke, symptoms have now resolved. Recommend obtaining MRI brain in AM, 2D ECHO and complete stroke workup. Cont Plavix and Lipitor. Multivessel CAD on cardiac catheterization. Cardiothoracic surgery consulted for possible evaluation for CABG. Further management plan will discuss with the patient and his . They were counseled about the need of cardiac catheterization possible risk versus benefit. Dual antiplatelet option was discussed and they were explained about the possibility of hemorrhage risk associated with it. Patient and his will discuss the option and will notify. Plan: Patient status Admit as inpatient in the Progressive Unit/Step down Imaging: - MRI brain, cervical spine and lumbar spine without contrast: Acute infarct within the left thalamus and posterior limb of the left internal capsule was seen. Cerebral atrophy with mild chronic microvascular disease within the periventricular white matter. -Cardiology: Multivessel CAD on cardiac catheterization. Cardiothoracic surgery consulted for possible evaluation for CABG. - Heme-onc consulted: Okay to continue IV heparin. - Plavix 75 mg daily (autoheld) and Lipitor 40 mg daily. - Lipid panel (triglyceride 181, LDL 51, HDL 25 cholesterol 112) and Hb A1c. - Neurosurgery on board. - PT/OT. - Medical management as primary team. - Continue to follow-up. Consultations: IP CONSULT TO STROKE TEAM IP CONSULT TO NEUROSURGERY IP CONSULT TO TRAUMA SURGERY IP CONSULT TO INTERNAL MEDICINE IP CONSULT TO CARDIOLOGY IP CONSULT TO CASE MANAGEMENT IP CONSULT TO INFECTIOUS DISEASES IP CONSULT TO HEM/ONC IP CONSULT TO HEM/ONC IP CONSULT TO NEUROSURGERY Follow-up further recommendations after discussing the case with attending The plan was discussed with the patient, patient's family and the medical staff. Patient is admitted as inpatient status because of co-morbidities listed above, severity of signs and symptoms as outlined, requirement for current medical therapies and most importantly because of direct risk to patient if care not provided in a hospital setting. Rogelio Epstein MD 04/28/2021 7:40 AM Copy sent to Dr. Alec Pinzon MD Associated attestation - Elisa Larsen MD - 04/28/2021 4:08 PM EDT Attending Physician Statement I have discussed the case of Yoel Van including pertinent history and exam findings with the resident/ PRIMARY SUBSTANCE ABUSE COUNSELOR. I have seen and examined the patient and the burnett elements of the encounter have been performed by me. I agree with the assessment, plan and orders as documented by the resident or PRIMARY SUBSTANCE ABUSE COUNSELOR with changes made to the note. Briefly, this is a 65 y.o. male with hx of was admitted on 04/24/2021 with altered mentation post fall. Patient fell down off of toilet seat. Denied loss of consciousness. After the fall patient had weakness in left lower extremity. Vitals on admit 178/96. Troponins were elevated at 125., Had cardiac catheterization revealing multivessel disease. Patient has been on IV heparin. MRI brain showed small acute infarct in left thalamus and left posterior limb of internal capsule. Patient is initiated on Plavix 75 mg daily along with atorvastatin 40 mg nightly for stroke prevention. CT cervical spine demonstrated spinal stenosis for which neurosurgery consulted. BP (!) 165/79 Pulse 68 Temp 97.5 F (36.4 C) (Oral) Resp 18 Ht 6' (1.829 m) Wt 223 lb (101.2 kg) SpO2 97% BMI 30.24 kg/m Blood pressure range: Systolic (24hrs), Av , Min:122 , Max:165 ; Diastolic (24hrs), Av, Min:48, Max:83 Impression and Plan: Mr. Yoel Van is a 65 y.o. male with Acute encephalopathy; significantly improved. Acute left thalamic ischemic stroke along with capsular ischemic stroke; on Plavix daily. Elevated troponins; abnormal cardiac cath; multivessel coronary artery disease; on IV heparinization. Risk of intracranial bleed discussed with patient and his at bedside. Cervical spondylosis with spinal stenosis; neurosurgery consulted. Comorbid conditions include hypertension, hyperlipidemia, diabetes, CAD. We will follow with you. Elisa Larsen MD 04/28/2021 3:40 PM Images from the original note were not included. [facility] Internal Medicine Teaching Residency Program Inpatient Daily Progress Note Patient: Yoel Van Date of : 1955 Acct: [id number] Room: [facility]- Admit date: 04/24/2021 Today's date: 04/28/21 Number of days in the hospital: 3 SUBJECTIVE Admitting Diagnosis: <principal problem not specified> CC: Fall with acute encephalopathy Pt examined at bedside. Chart & results reviewed. No acute events overnight. Mentation is improved. Lower extremities weakness- BMP labs- stable; Blood sugar 250- this am- on medium sliding scale ID recommends- no acute intervention for lumbosacral osteomyelitis - OK to cath from ID standpoint Neuro- Acute infarct on left thalamus; Plavix is on hold due to previous hemorrhagic conversion of ischemic stroke; Will follow recommendation if OK to cath from Neurology standpoint Cardio- NSTEMI- currently on Heparin gtt; avoid heparin bolus due to acute stroke; s/p Cath today- multivessel disease; Recommended CV surgery consult for CABG ROS: Constitutional: negative for chills, fevers, sweats Respiratory: negative for cough, dyspnea on exertion, hemoptysis, shortness of breath, wheezing Cardiovascular: negative for chest pain, chest pressure/discomfort, lower extremity edema, palpitations Gastrointestinal: negative for abdominal pain, constipation, diarrhea, nausea, vomiting Neurological: negative for dizziness, headache BRIEF HISTORY The patient is a pleasant 65 y.o. male presents with a chief complaint of dizziness and fall at home. The patient has a past medical history of 2 CVA, DM 2 hypertension, CAD status post 3 stents. The patient reported he was to the bathroom and before he could use the bathroom he felt sudden weakness in both his lower extremities and he fell on the bathroom floor, and hit his head. Patient's came to help him get up in the bathroom and helped him sit on the toilet. The patient denies urinary incontinence, tongue biting or seizure-like activity. After the fall the patient reported feeling bilateral lower extremity weakness. The patient's checked his blood sugar after the fall which was 78. The patient had some juice and food. patient's reported mental status changes including continued cigarette after 2 weeks of quitting. Patient rested for 2 to 3 hours after the fall at home and patient's brought him to the ED due to his change of mental status. The ED patient was hemodynamically stable, afebrile, saturating over 95% on room air. Stroke alert was called and neuro was consulted. The patient was combative and cooperative in the ED and subsequently received Ativan 5 mg and Haldol 10 mg. Imaging showed no new acute findings. CTA head and neck showed bilateral carotid bifurcation atherosclerotic plaque resulting in approximately 4 to 40% left and 20% right stenosis of proximal ICAs. CT cervical spine showed mild central canal stenosis secondary to encroachment by disc osteophyte complex. CT abdomen pelvis showed sigmoid colon diverticulosis and severe bilateral iliac arterial atherosclerosis. Troponins 180 --> 175 --> 187 --> 199. EKG showed no significant changes as compared to the previous EKG. Blood sugar was 140. H&H stable, no signs of infection. Electrolytes are within normal limits. OBJECTIVE Vital Signs: BP 131/82 Pulse 67 Temp 98 F (36.7 C) (Oral) Resp 14 Ht 6' (1.829 m) Wt 223 lb (101.2 kg) SpO2 95% BMI 30.24 kg/m Temp (24hrs), Av.8 F (36.6 C), Min:97.5 F (36.4 C), Max:98 F (36.7 C) In: 1073.5 Out: 400 [Urine:400] Physical Exam: Constitutional: This is a well developed, well nourished, 30-34.9 - Obesity Grade I 65 y.o. year old male who is alert, oriented, cooperative and in no apparent distress. Head:normocephalic and atraumatic. EENT: PERRLA. No conjunctival injections. Septum was midline, mucosa was without erythema, exudates or cobblestoning. No thrush was noted. Neck: Supple without thyromegaly. No elevated JVP. Trachea was midline. Respiratory: Chest was symmetrical without dullness to percussion. Breath sounds bilaterally were clear to auscultation. There were no wheezes, rhonchi or rales. There is no intercostal retraction or use of accessory muscles. No egophony noted. Cardiovascular: Regular without murmur, clicks, gallops or rubs. Abdomen: Slightly rounded and soft without organomegaly. No rebound, rigidity or guarding was appreciated. Lymphatic: No lymphadenopathy. Musculoskeletal: Normal curvature of the spine. No gross muscle weakness. Extremities: No lower extremity edema, ulcerations, tenderness, varicosities or erythema. Muscle size, tone and strength are normal. No involuntary movements are noted. Skin: Warm and dry. Good color, turgor and pigmentation. No lesions or scars. No cyanosis or clubbing Neurological/Psychiatric: The patient's general behavior, level of consciousness, thought content and emotional status is normal. Medications: Scheduled Medications: sodium chloride flush 5-40 mL Intravenous 2 times per day insulin lispro 0-12 Units Subcutaneous TID insulin lispro 0-6 Units Subcutaneous Nightly nicotine 1 patch Transdermal Daily sodium chloride flush 5-40 mL Intravenous 2 times per day atorvastatin 40 mg Oral Daily gabapentin 600 mg Oral BID traZODone 200 mg Oral Nightly metoprolol tartrate 25 mg Oral BID pantoprazole 40 mg Oral Nightly Continuous Infusions: sodium chloride dextrose sodium chloride heparin (PORCINE) Infusion 15.78 Units/kg/hr (04/28/21 5427) PRN Medicationspotassium chloride, 40 mEq, PRN Or potassium alternative oral replacement, 40 mEq, PRN Or potassium chloride, 10 mEq, PRN sodium chloride flush, 5-40 mL, PRN sodium chloride, 25 mL, PRN acetaminophen, 650 mg, Q4H PRN glucose, 15 g, PRN dextrose, 12.5 g, PRN glucagon (rDNA), 1 mg, PRN dextrose, 100 mL/hr, PRN labetalol, 20 mg, Q4H PRN sodium chloride flush, 5-40 mL, PRN sodium chloride, 25 mL, PRN ondansetron, 4 mg, Q8H PRN Or ondansetron, 4 mg, Q6H PRN polyethylene glycol, 17 g, Daily PRN acetaminophen, 650 mg, Q6H PRN Or acetaminophen, 650 mg, Q6H PRN heparin (porcine), 4,000 Units, PRN heparin (porcine), 2,000 Units, PRN nitroGLYCERIN, 0.4 mg, Q5 Min PRN Diagnostic Labs: CBC: Recent Labs 04/25/21 1329 04/27/21 0311 WBC 6.7 7.9 RBC 4.49 4.22 HGB 13.8 12.9* HCT 41.8 38.2* MCV 93.1 90.5 RDW 14.0 13.9 PLT 195 223 BMP: Recent Labs 04/27/21 0311 04/27/21 1150 04/28/21 0240 NA 136 137 136 K 3.5* 3.9 3.7 CL 103 104 104 CO2 22 20 21 BUN 11 11 10 CREATININE 0.80 0.71 0.77 BNP: No results for input(s): BNP in the last 72 hours. PT/INR: No results for input(s): PROTIME, INR in the last 72 hours. APTT: Recent Labs 04/27/21 1443 04/27/21 2026 04/28/21 0240 APTT 71.0* 55.7* 42.9* CARDIAC ENZYMES: No results for input(s): CKMB, CKMBINDEX, TROPONINI in the last 72 hours. Invalid input(s): CKTOTAL;3 FASTING LIPID PANEL: Lab Results Component Value Date CHOL 112 04/26/2021 HDL 25 (L) 04/26/2021 TRIG 181 (H) 04/26/2021 LIVER PROFILE: No results for input(s): AST, ALT, ALB, BILIDIR, BILITOT, ALKPHOS in the last 72 hours. MICROBIOLOGY: Lab Results Component Value Date/Time CULTURE NO GROWTH 3 DAYS 04/25/2021 08:33 PM CULTURE NO GROWTH 3 DAYS 04/25/2021 08:33 PM Imaging: CT ABDOMEN PELVIS WO CONTRAST Additional Contrast? None Result Date: 04/25/2021 1. No acute abnormality of the abdomen or pelvis. 2. Sigmoid colon diverticulosis without evidence of diverticulitis. 3. Bifemoral arterial graft, not adequately evaluated in absence of CT angiographic study. 4. Severe bilateral iliac arterial atherosclerosis. 5. L5/S1 severe bilateral neural foraminal stenosis secondary to encroachment by disc osteophyte complex. CT HEAD WO CONTRAST Result Date: 04/24/2021 No evidence for acute intracranial hemorrhage, territorial infarction or intracranial mass lesion. Chronic lacunar infarction right pacheco radiata. Mild chronic microangiopathic ischemic disease. Mild generalized volume loss. CT CERVICAL SPINE WO CONTRAST Result Date: 04/24/2021 1. No acute abnormality of the cervical spine. 2. C5/C6 moderate, C6/C7 mild central canal stenosis secondary to encroachment by disc osteophyte complex. 3. C3/C4 mild bilateral, C5/C6 moderate bilateral, C6/C7 severe left and moderate right neural foraminal stenosis secondary to encroachment by disc osteophyte complex. MRI CERVICAL SPINE WO CONTRAST Result Date: 04/26/2021 Congenital spinal canal stenosis superimposed moderate diffuse degenerative disc disease Moderate central canal stenosis at C5-C6 and C6-C7 and to slightly lesser extent at C3-C4. Multilevel bilateral neural foraminal stenosis as noted above most severe C3-C4 and C6-C7. MRI LUMBAR SPINE WO CONTRAST Result Date: 04/26/2021 Edema within the endplates at L5-S1 presence of high T2 signal within disc space. These changes are suspicious for acute discitis/osteomyelitis. No epidural abscess or significant paravertebral inflammation is identified. Correlation with C-reactive protein is suggested. Severe bilateral foraminal stenosis at L5-S1. Mild bilateral foraminal stenosis at L4-L5. Borderline congenital spinal canal stenosis. XR SHOULDER LEFT (MIN 2 VIEWS) Result Date: 04/24/2021 No evidence of an acute fracture involving the left shoulder XR CHEST PORTABLE Result Date: 04/24/2021 Marginal inspiration, without evidence of acute cardiopulmonary disease CTA HEAD NECK W CONTRAST Result Date: 04/24/2021 1. Bilateral carotid bifurcation atherosclerotic plaque resulting approximately 40% left and 20% right stenosis of the proximal internal carotid arteries. Finding is compatible with 16-49% stenosis per sonographic NASCET index criteria. 2. Bilateral internal carotid artery cavernous segment scattered atherosclerotic calcification with up to approximately 25% bilateral arterial stenosis. Finding is compatible with 16-49% stenosis per sonographic NASCET index criteria. 3. Bilateral vertebral artery V4 segment atherosclerotic calcification resulting in focal high-grade stenosis of the left vertebral artery in approximately focal 50% stenosis of the right vertebral artery. 4. Left vertebral artery mid cervical segment approximately 70% stenosis secondary to encroachment by atherosclerotic plaque, as discussed above. RECOMMENDATIONS: For clinical suspicion of acute ischemia, recommend MRI brain with diffusion-weighted imaging for further evaluation MRI BRAIN WO CONTRAST Result Date: 04/26/2021 Small acute infarct within the left thalamus and posterior limb of the left internal capsule. Mild chronic microvascular disease within the periventricular white matter. Moderate cerebral atrophy. Susceptibility within the right parietal lobe periventricular white matter which may represent a cavernoma versus old hemorrhage. ASSESSMENT & PLAN ASSESSMENT / PLAN: IMPRESSION This is a 65 y.o. male who presented after a fall with acute encephalopathy. Active Problems: Fall with head injury and acute encephalopathy DDx: Acute ischemic stroke -Continue atorvastatin, Plavix is held as patient currently on heparin drip for concern of NSTEMI; avoid heparin bolus per Neurology -Neurology following -Bilateral lower extremity weakness persist but has been improving NSTEMI (non-ST elevated myocardial infarction) (HCC) Plan: Troponins 180 --> 175 --> 187 --> 199 --> 267. EKG showed no significant changes as compared to the previous EKG. - Cardiology consulted-probable cardiac cath tomorrow after clearance from neurology and infectious disease -We will continue Heparin gtt - Echo ordered- will follow up -s/p diagnostic Cath today- multivessel disease; Recommended CV surgery consult for CABG CAD s/p 3 stent placement - Continue Lipitor, Lopressoe 25 mg BID, Labetalol 20 mg IV PRN, Discitis/ osteomyelitis of L5-S1 -ID was consulted-we will monitor and and does not require any acute intervention for now -Repeat MRI after 6 weeks as outpatient Type II DM -Blood sugar level uncontrolled. Hold home medication -We will continue medium dose sliding scale insulin DVT ppx: Heparin gtt GI ppx: Protonix PT/OT/SW- Onboard Discharge Planning: application manager consulted, will follow up Gee Parnell MD Internal Medicine Resident, PGY-1 [facility]; [place], [place] 04/28/2021, 11:27 AM Attending Physician Statement I have discussed the care of Yoel Van with the resident team. I have examined the patient myself and taken ros and hpi , including pertinent history and exam findings, with the resident. I have reviewed the burnett elements of all parts of the encounter with the resident. I agree with the assessment, plan and orders as documented by the resident. Active Problems: Stroke (HCC) NSTEMI (non-ST elevated myocardial infarction) (HCC) Altered mental status DM (diabetes mellitus), type 2 (HCC) Discitis of lumbosacral region Hypokalemia Hypomagnesemia Resolved Problems: * No resolved hospital problems. * cardiac cath today Images from the original note were not included. [facility] Internal Medicine Teaching Residency Program Inpatient Daily Progress Note Patient: Yoel Van Date of : 1955 Acct: [id number] Room: 0542/0542-01 Admit date: 04/24/2021 Today's date: 04/27/21 Number of days in the hospital: 2 SUBJECTIVE Admitting Diagnosis: Fall with acute encephalopcathy CC: Fall with change in mental status No acute event overnight. Mentation significantly improved. Still complains of bilateral lower extremity weakness with support to move around Pt examined at bedside. Chart & results reviewed. Hypokalemic this a.m. potassium replaced Magnesium 1.3 this a.m. replaced with 2 g of magnesium repeat came out 1.8 Blood sugar 189 patient currently on medium dose sliding scale. MRI brain-small acute infarct within left thalamus and posterior limb of left internal capsule. Mild chronic microvascular disease within periventricular white matter. Patient currently on heparin drip. Avoid bolus heparin. Plavix currently hold as per neuro. Planned cardiac cath tomorrow after clearance from neuro and ID ID was consulted for concern of L5-S1 osteomyelitis and discitis-no acute intervention required. ROS: Constitutional: negative for chills, fevers, sweats Respiratory: negative for cough, dyspnea on exertion, hemoptysis, shortness of breath, wheezing Cardiovascular: negative for chest pain, chest pressure/discomfort, lower extremity edema, palpitations Gastrointestinal: negative for abdominal pain, constipation, diarrhea, nausea, vomiting Neurological: negative for dizziness, headache BRIEF HISTORY The patient is a pleasant 65 y.o. male presents with a chief complaint of dizziness and fall at home. The patient has a past medical history of 2 CVA, DM 2 hypertension, CAD status post 3 stents. The patient reported he was to the bathroom and before he could use the bathroom he felt sudden weakness in both his lower extremities and he fell on the bathroom floor, and hit his head. Patient's came to help him get up in the bathroom and helped him sit on the toilet. The patient denies urinary incontinence, tongue biting or seizure-like activity. After the fall the patient reported feeling bilateral lower extremity weakness. The patient's checked his blood sugar after the fall which was 78. The patient had some juice and food. patient's reported mental status changes including continued cigarette after 2 weeks of quitting. Patient rested for 2 to 3 hours after the fall at home and patient's brought him to the ED due to his change of mental status. The ED patient was hemodynamically stable, afebrile, saturating over 95% on room air. Stroke alert was called and neuro was consulted. The patient was combative and cooperative in the ED and subsequently received Ativan 5 mg and Haldol 10 mg. Imaging showed no new acute findings. CTA head and neck showed bilateral carotid bifurcation atherosclerotic plaque resulting in approximately 4 to 40% left and 20% right stenosis of proximal ICAs. CT cervical spine showed mild central canal stenosis secondary to encroachment by disc osteophyte complex. CT abdomen pelvis showed sigmoid colon diverticulosis and severe bilateral iliac arterial atherosclerosis. Troponins 180 --> 175 --> 187 --> 199. EKG showed no significant changes as compared to the previous EKG. Blood sugar was 140. H&H stable, no signs of infection. Electrolytes are within normal limits. OBJECTIVE Vital Signs: BP 128/60 Pulse 75 Temp 97.7 F (36.5 C) (Oral) Resp 18 Ht 6' (1.829 m) Wt 223 lb (101.2 kg) SpO2 96% BMI 30.24 kg/m Temp (24hrs), Av.1 F (36.7 C), Min:97.7 F (36.5 C), Max:98.4 F (36.9 C) In: 954 Out: - Physical Exam: Constitutional: This is a well developed, well nourished, 30-34.9 - Obesity Grade I 65 y.o. year old male who is alert, oriented, cooperative and in no apparent distress. Head:normocephalic and atraumatic. EENT: PERRLA. No conjunctival injections. Septum was midline, mucosa was without erythema, exudates or cobblestoning. No thrush was noted. Neck: Supple without thyromegaly. No elevated JVP. Trachea was midline. Respiratory: Chest was symmetrical without dullness to percussion. Breath sounds bilaterally were clear to auscultation. There were no wheezes, rhonchi or rales. There is no intercostal retraction or use of accessory muscles. No egophony noted. Cardiovascular: Regular without murmur, clicks, gallops or rubs. Abdomen: Slightly rounded and soft without organomegaly. No rebound, rigidity or guarding was appreciated. Lymphatic: No lymphadenopathy. Musculoskeletal: No gross muscle weakness. Extremities: No lower extremity edema, ulcerations, tenderness, varicosities or erythema. Muscle size, tone and strength are normal. No involuntary movements are noted. Skin: Warm and dry. Good color, turgor and pigmentation. No lesions or scars. No cyanosis or clubbing Neurological/Psychiatric: The patient's general behavior, level of consciousness, thought content and emotional status is normal. Medications: Scheduled Medications: nicotine 1 patch Transdermal Daily sodium chloride flush 5-40 mL Intravenous 2 times per day atorvastatin 40 mg Oral Daily gabapentin 600 mg Oral BID traZODone 200 mg Oral Nightly metoprolol tartrate 25 mg Oral BID [Held by provider] clopidogrel 75 mg Oral Daily pantoprazole 40 mg Oral Nightly Continuous Infusions: sodium chloride heparin (PORCINE) Infusion 15.78 Units/kg/hr (04/27/21 1211) PRN Medicationslabetalol, 20 mg, Q4H PRN sodium chloride flush, 5-40 mL, PRN sodium chloride, 25 mL, PRN ondansetron, 4 mg, Q8H PRN Or ondansetron, 4 mg, Q6H PRN polyethylene glycol, 17 g, Daily PRN acetaminophen, 650 mg, Q6H PRN Or acetaminophen, 650 mg, Q6H PRN heparin (porcine), 4,000 Units, PRN heparin (porcine), 2,000 Units, PRN nitroGLYCERIN, 0.4 mg, Q5 Min PRN Diagnostic Labs: CBC: Recent Labs 04/24/21222004/25/21 1329 04/27/21 0311 WBC 10.0 6.7 7.9 RBC 4.85 4.49 4.22 HGB 14.5 13.8 12.9* HCT 44.0 41.8 38.2* MCV 90.7 93.1 90.5 RDW 14.0 14.0 13.9 PLT 249 195 223 BMP: Recent Labs 04/26/21 0023 04/27/211 04/27/21 1150 NA 137 136 137 K 3.6* 3.5* 3.9 CL 102 103 104 CO2 23 22 20 BUN 9 11 11 CREATININE 0.53* 0.80 0.71 BNP: No results for input(s): BNP in the last 72 hours. PT/INR: Recent Labs 04/24/212220 PROTIME 10.7 INR 1.0 APTT: Recent Labs 04/27/21 0311 04/27/21 0740 04/27/21 1150 APTT 64.8* 73.8* 68.8* CARDIAC ENZYMES: Recent Labs 04/24/212220 CKMB 5.0 FASTING LIPID PANEL: Lab Results Component Value Date CHOL 112 04/26/2021 HDL 25 (L) 04/26/2021 TRIG 181 (H) 04/26/2021 LIVER PROFILE: No results for input(s): AST, ALT, ALB, BILIDIR, BILITOT, ALKPHOS in the last 72 hours. MICROBIOLOGY: Lab Results Component Value Date/Time CULTURE NO GROWTH 1 DAY 04/25/2021 08:33 PM CULTURE NO GROWTH 1 DAY 04/25/2021 08:33 PM Imaging: CT ABDOMEN PELVIS WO CONTRAST Additional Contrast? None Result Date: 04/25/2021 1. No acute abnormality of the abdomen or pelvis. 2. Sigmoid colon diverticulosis without evidence of diverticulitis. 3. Bifemoral arterial graft, not adequately evaluated in absence of CT angiographic study. 4. Severe bilateral iliac arterial atherosclerosis. 5. L5/S1 severe bilateral neural foraminal stenosis secondary to encroachment by disc osteophyte complex. CT HEAD WO CONTRAST Result Date: 04/24/2021 No evidence for acute intracranial hemorrhage, territorial infarction or intracranial mass lesion. Chronic lacunar infarction right pacheco radiata. Mild chronic microangiopathic ischemic disease. Mild generalized volume loss. CT CERVICAL SPINE WO CONTRAST Result Date: 04/24/2021 1. No acute abnormality of the cervical spine. 2. C5/C6 moderate, C6/C7 mild central canal stenosis secondary to encroachment by disc osteophyte complex. 3. C3/C4 mild bilateral, C5/C6 moderate bilateral, C6/C7 severe left and moderate right neural foraminal stenosis secondary to encroachment by disc osteophyte complex. XR SHOULDER LEFT (MIN 2 VIEWS) Result Date: 04/24/2021 No evidence of an acute fracture involving the left shoulder XR CHEST PORTABLE Result Date: 04/24/2021 Marginal inspiration, without evidence of acute cardiopulmonary disease CTA HEAD NECK W CONTRAST Result Date: 04/24/2021 1. Bilateral carotid bifurcation atherosclerotic plaque resulting approximately 40% left and 20% right stenosis of the proximal internal carotid arteries. Finding is compatible with 16-49% stenosis per sonographic NASCET index criteria. 2. Bilateral internal carotid artery cavernous segment scattered atherosclerotic calcification with up to approximately 25% bilateral arterial stenosis. Finding is compatible with 16-49% stenosis per sonographic NASCET index criteria. 3. Bilateral vertebral artery V4 segment atherosclerotic calcification resulting in focal high-grade stenosis of the left vertebral artery in approximately focal 50% stenosis of the right vertebral artery. 4. Left vertebral artery mid cervical segment approximately 70% stenosis secondary to encroachment by atherosclerotic plaque, as discussed above. RECOMMENDATIONS: For clinical suspicion of acute ischemia, recommend MRI brain with diffusion-weighted imaging for further evaluation ASSESSMENT & PLAN ASSESSMENT / PLAN: IMPRESSION This is a 65 y.o. male who presented after a fall with acute encephalopathy. Active Problems: Fall with head injury and acute encephalopathy DDx: Acute ischemic stroke -Continue atorvastatin, Plavix is held as patient currently on heparin drip for concern of NSTEMI -Neurology following -Bilateral lower extremity weakness persist but has been improving NSTEMI (non-ST elevated myocardial infarction) (HCC) Plan: Troponins 180 --> 175 --> 187 --> 199 --> 267. EKG showed no significant changes as compared to the previous EKG. - Cardiology consulted-probable cardiac cath tomorrow after clearance from neurology and infectious disease -We will continue Heparin gtt - Echo ordered- will follow up CAD s/p 3 stent placement - Continue Lipitor, Lopressoe 25 mg BID, Labetalol 20 mg IV PRN, Discitis/ osteomyelitis of L5-S1 -ID was consulted-we will monitor and and does not require any intervention for now -Repeat MRI after 6 weeks as outpatient Type II DM -Blood sugar level uncontrolled. Hold home medication -We will continue medium dose sliding scale insulin DVT ppx: Heparin gtt GI ppx: Protonix PT/OT/SW- Onboard Discharge Planning: application manager consulted, will follow up Gee Dewey MD Internal Medicine Resident, PGY-2 [facility]; [place], [place] 04/27/2021, 1:38 PM Attending Physician Statement I have discussed the care of Yoel Van with the resident team. I have examined the patient myself and taken ros and hpi , including pertinent history and exam findings, with the resident. I have reviewed the burnett elements of all parts of the encounter with the resident. I agree with the assessment, plan and orders as documented by the resident. Active Problems: NSTEMI (non-ST elevated myocardial infarction) (HCC) Altered mental status Resolved Problems: * No resolved hospital problems. * Stroke confirmed on MRI, Plavix held to history of hemorrhagic conversion of stroke in the past with DAPT Patient still on heparin infusion pending, cath Wednesday per cardiology Full note to follow. NEUROLOGY INPATIENT PROGRESS NOTE 04/27/2021 Subjective: Yoel Van is a 65 y.o. male admitted on 04/24/2021 with NSTEMI (non-ST elevated myocardial infarction) (HCC) [I21.4] Briefly, this is a 65 y.o. male admitted on 04/24/2021 with a fall, in which he fell off his toilet and hit his head. He did not lose consciousness. He was brought to the hospital about 8 hours after the fall due to progressive weakness of his legs. Before the fall he had no lightheadedness, dizziness, feeling of warmth, or headache. He went from able to walk to needing a wheelchair over the 8 hours. He also progressively started slurring his speech. He was disoriented on arrival to the ED. He has a history of a prior CVA with a hemorrhagic conversion and 2 prior MIs requiring 3 stents. In the ED he had positive troponins which continued to increase. He was diagnosed with an NSTEMI. Cardiology is planning for the possibility of a cath on Wednesday. IV heparin was began. MRI done showed a small acute infarct within the left thalamus and posterior limb of the left internal capsule, as well as susceptibility within the right parietal lobe periventricular white matter which may represent a cavernoma versus an old hemorrhage. Plavix was held this morning due to risk of intracranial hemorrhage. Today the patient is alert and oriented. Physical exam shows no focal neurological deficit. The risk of intracranial hemorrhage versus IA was discussed with the patient in regards to the management of his medication. The patient has ultimately decided that he will undergo the cardiac cath and understands the risk of hemorrhage if he continues Plavix. No current facility-administered medications on file prior to encounter. Current Outpatient Medications on File Prior to Encounter Medication Sig Dispense Refill varenicline (CHANTIX STARTING MONTH RYNE) 0.5 MG X 11 & 1 MG X 42 tablet Chantix Starting Month Box 0.5 mg (11)-1 mg (42) tablets in dose pack diclofenac sodium 1 % GEL APPLY TO THE AFFECTED AREA(S) FOUR TIMES DAILY NEEDED (TRANSDERMALLY) clopidogrel (PLAVIX) 75 MG tablet clopidogrel 75 mg tablet pioglitazone (ACTOS) 30 MG tablet Take 30 mg by mouth daily AMITRIPTYLINE HCL PO Take 150 mg by mouth Carvedilol (COREG PO) Take 37.5 mg by mouth 2 times daily gabapentin (NEURONTIN) 600 MG tablet Take 600 mg by mouth 2 times daily. glipiZIDE (GLUCOTROL XL) 10 MG extended release tablet Take 10 mg by mouth daily SITagliptin (JANUVIA) 100 MG tablet Take 100 mg by mouth daily atorvastatin (LIPITOR) 40 MG tablet Take 40 mg by mouth daily lisinopril (PRINIVIL;ZESTRIL) 40 MG tablet Take 40 mg by mouth daily metFORMIN (GLUCOPHAGE) 1000 MG tablet Take 1,000 mg by mouth 2 times daily (with meals) nitroGLYCERIN (NITROSTAT) 0.[address] 0.4 mg under the tongue every 5 minutes as needed for Chest pain up to max of 3 total doses. If no relief after 1 dose, call 911. oxyCODONE-acetaminophen (PERCOCET) 5-325 MG per tablet Take 2 tablets by mouth every 4 hours as needed for Pain. Pantoprazole Sodium (PROTONIX PO) Take 80 mg by mouth nightly TRAZODONE HCL PO Take 200 mg of ampicillin by mouth nightly Allergies: Yoel Van has No Known Allergies. Past Medical History: Diagnosis Date Cerebral artery occlusion with cerebral infarction (HCC) Diabetes mellitus (HCC) Headache Hyperlipidemia Hypertension Past Surgical History: Procedure Laterality Date CARDIAC SURGERY ROTATOR CUFF REPAIR ROTATOR CUFF REPAIR Medications: nicotine 1 patch Transdermal Daily sodium chloride flush 5-40 mL Intravenous 2 times per day atorvastatin 40 mg Oral Daily gabapentin 600 mg Oral BID traZODone 200 mg Oral Nightly metoprolol tartrate 25 mg Oral BID [Held by provider] clopidogrel 75 mg Oral Daily pantoprazole 40 mg Oral Nightly PRN Meds include: labetalol, sodium chloride flush, sodium chloride, ondansetron OR ondansetron, polyethylene glycol, acetaminophen OR acetaminophen, heparin (porcine), heparin (porcine), nitroGLYCERIN Objective: BP 128/60 Pulse 75 Temp 97.7 F (36.5 C) (Oral) Resp 18 Ht 6' (1.829 m) Wt 223 lb (101.2 kg) SpO2 96% BMI 30.24 kg/m Blood pressure range: Systolic (24hrs), Av , Min:128 , Max:159 ; Diastolic (24hrs), Av, Min:60, Max:80 ROS: Review of Systems Constitutional: Negative for fatigue, fever and unexpected weight change. HENT: Negative for trouble swallowing. Eyes: Negative for photophobia and visual disturbance. Respiratory: Negative for apnea, cough, choking, chest tightness and shortness of breath. Cardiovascular: Negative for chest pain. Gastrointestinal: Negative for abdominal distention, abdominal pain, constipation, diarrhea and nausea. Musculoskeletal: Positive for gait problem. Negative for arthralgias, back pain, neck pain and neck stiffness. Skin: Negative. Allergic/Immunologic: Negative. Neurological: Positive for weakness and numbness. Negative for dizziness, tremors, seizures, syncope, facial asymmetry, speech difficulty, light-headedness and headaches. Psychiatric/Behavioral: Negative for agitation, behavioral problems, confusion, decreased concentration, dysphoric mood, hallucinations, self-injury and sleep disturbance. The patient is not nervous/anxious. NEUROLOGIC EXAMINATION Physical Exam Constitutional: Appearance: Normal appearance. HENT: Head: Normocephalic and atraumatic. Eyes: Extraocular Movements: Extraocular movements intact. Conjunctiva/sclera: Conjunctivae normal. Pupils: Pupils are equal, round, and reactive to light. Cardiovascular: Rate and Rhythm: Normal rate and regular rhythm. Pulses: Normal pulses. Pulmonary: Effort: Pulmonary effort is normal. Abdominal: General: Abdomen is flat. Palpations: Abdomen is soft. Musculoskeletal: General: Normal range of motion. Cervical back: Normal range of motion. Skin: General: Skin is warm and dry. Neurological: Mental Status: He is alert and oriented to person, place, and time. Deep Tendon Reflexes: Reflex Scores: Tricep reflexes are 2+ on the right side and 2+ on the left side. Bicep reflexes are 2+ on the right side and 2+ on the left side. Brachioradialis reflexes are 2+ on the right side and 2+ on the left side. Patellar reflexes are 2+ on the right side and 2+ on the left side. Achilles reflexes are 2+ on the right side and 2+ on the left side. Psychiatric: Mood and Affect: Mood normal. Speech: Speech normal. Behavior: Behavior normal. Thought Content: Thought content normal. Judgment: Judgment normal. . Neurologic Exam Mental Status Oriented to person, place, and time. Registration: recalls 3 of 3 objects. Recall at 5 minutes: recalls 3 of 3 objects. Follows 2 step commands. Attention: normal. Concentration: normal. Speech: speech is normal Level of consciousness: alert Knowledge: good. Able to perform simple calculations. Able to name object. Able to read. Able to repeat. Able to write. Normal comprehension. Cranial Nerves Cranial nerves II through XII intact. CN III, IV, Pupils are equal, round, and reactive to light. Motor Exam Muscle bulk: normal Overall muscle tone: normal Right arm tone: normal Left arm tone: normal Right arm pronator drift: absent Left arm pronator drift: absent Right leg tone: normal Left leg tone: normal Strength Right neck flexion: 5/5 Left neck flexion: 5/5 Right neck extension: 5/5 Left neck extension: 5/5 Right deltoid: 5/5 Left deltoid: 5/5 Right biceps: 5/5 Left biceps: 5/5 Right triceps: 5/5 Left triceps: 5/5 Right wrist flexion: 5/5 Left wrist flexion: 5/5 Right wrist extension: 5/5 Left wrist extension: 5/5 Right interossei: 5/5 Left interossei: 5/5 Right abdominals: 5/5 Left abdominals: 5/5 Right iliopsoas: 5/5 Left iliopsoas: 5/5 Right quadriceps: 5/5 Left quadriceps: 5/5 Right hamstrin/5 Left hamstrin/5 Right glutei: 5/5 Left glutei: 5/5 Right anterior tibial: 5/5 Left anterior tibial: 5/5 Right posterior tibial: 5/5 Left posterior tibial: 5/5 Right peroneal: 5/5 Left peroneal: 5/5 Right gastroc: 5/5 Left gastroc: 5/5 Sensory Exam Right arm light touch: normal Left arm light touch: normal Right leg light touch: decreased from ankle Left leg light touch: decreased from ankle Right arm vibration: normal Left arm vibration: normal Right leg vibration: decreased from ankle Left leg vibration: decreased from ankle Proprioception normal. Right leg pinprick: decreased from ankle Left leg pinprick: decreased from ankle Gait, Coordination, and Reflexes Gait Gait: shuffling Tremor Resting tremor: absent Intention tremor: absent Action tremor: absent Reflexes Right brachioradialis: 2+ Left brachioradialis: 2+ Right biceps: 2+ Left biceps: 2+ Right triceps: 2+ Left triceps: 2+ Right patellar: 2+ Left patellar: 2+ Right achilles: 2+ Left achilles: 2+ Right script artist: 2+ Left script artist: 2+ Lab Results: CBC: Recent Labs 04/24/21222004/25/21 1329 04/27/21 0311 WBC 10.0 6.7 7.9 HGB 14.5 13.8 12.9* PLT 249 195 223 BMP: Recent Labs 04/24/21 22204/26/21 0023 04/27/21 0311 NA 134* 137 136 K 3.7 3.6* 3.5* CL 99 102 103 CO2 19* 23 22 BUN 18 9 11 CREATININE 0.82 0.53* 0.80 GLUCOSE 130* 249* 189* Lab Results Component Value Date CHOL 112 04/26/2021 LDLCHOLESTEROL 51 04/26/2021 HDL 25 (L) 04/26/2021 TRIG 181 (H) 04/26/2021 TSH 1.04 04/25/2021 INR 1.0 04/24/2021 LABA1C 7.5 (H) 04/25/2021 [id number] 04/25/2021 No results found for: PHENYTOIN, PHENYTOIN, VALPROATE, CBMZ IMAGING Radiology:(past 2 days) -MRI brain without contrast 04/26/2021: Small acute infarct within the left thalamus and posterior limb of the left internal capsule, susceptibility within the right parietal lobe periventricular white matter which may represent a cavernoma versus old hemorrhage -MRI lumbar spine without contrast 04/26/2021: Changes suspicious of acute discitis/osteomyelitis at L5-S1 -MRI cervical spine 04/26/2021: Moderate canal stenosis at C5-C6 and C6-C7 and slightly lesser extent at C3-C4. Multilevel bilateral neuroforaminal stenosis most severe at C3-C4 and C6-C7. ASSESSMENT -Acute infarct in the left thalamus -NSTEMI -Discitis/osteomyelitis at L5-S1 -History of hemorrhagic conversion CVA in 2020 PLAN 1.) Correlate with cardiology for NSTEMI management and vacation 2.) Decision to continue Plavix and heparin with correlation with primary and cardiology 3.) Continue PT/OT Que Hays MD PGY-1 Resident Associated attestation - Fanta Levy MD - 04/27/2021 5:07 PM EDT Attending Physician Statement: I have discussed the case of Yoel Van, including pertinent history and exam findings with the resident. I have seen and examined the patient and the burnett elements of the encounter have been performed by me. I have reviewed medications, clinical laboratory, imaging and other diagnostic tests with the residents. I agree with the assessment, plan and orders as documented by the resident with changes made to the note as needed. Patient was seen and examined. He was awake alert oriented x4. Denies any new neurologic concerns. Cardiology planning for cardiac catheterization on Wednesday. 2D echo pending. Patient on heparin drip No acute events overnight. Imaging CT head did not show any acute finding. Showed chronic lacunar infarct in the right pacheco radiata and mild chronic microangiopathic ischemic changes. CTA head and neck showed bilateral carotid bifurcation atherosclerotic plaque resulting approximately 40% left and 20% right stenosis of the proximal ICAs. Bilateral ICA cavernous segment atherosclerotic calcification with 25% stenosis. Bilateral vertebral artery V4 segment atherosclerotic calcification resulting in high grade focal stenosis of the left vertebral artery. Left vertebral artery mid cervical segment approximately 70% stenosis by atherosclerotic plaque CT cervical spine showed C5-6 moderate, C6-7 mild central canal stenosis secondary to encroachment by disc osteophyte complex. C3-C4 mild bilateral, C5-C6 moderate bilateral and C6-C7 severe left and moderate right neuroforaminal stenosis secondary to encroachment of disc osteophyte complex. CT abdomen pelvis without contrast showed sigmoid colon diverticulosis. Bifemoral arterial graft. Severe bilateral iliac arterial atherosclerosis. L5/S1 severe bilateral neuroforaminal stenosis secondary to encroachment by disc osteophyte complex. MRI brain 04/26/2021 showed small acute infarct in the left thalamus and posterior limb of left internal capsule. Sensibility within right parietal lobe periventricular white matter which may represent a cavernoma versus old hemorrhage. Moderate cerebral atrophy. Mild chronic microvascular changes. MRI cervical spine without contrast 04/26/2021 Congenital spinal canal stenosis superimposed moderate diffuse degenerative disc disease. Moderate central canal stenosis at C5-C6 and C6-C7 to slightly lesser extent at C3-C4. Multilevel bilateral neural foraminal stenosis, most severe at C3-C4 and C6-C7 MRI lumbar spine without contrast 04/26/2021 Edema within endplates at L5-S1 presence of high T2 signal with interspace, suspicious for acute discitis/osteomyelitis. Severe bilateral foraminal stenosis at L5-S1, mild bilateral foraminal stenosis at L4-L5. Borderline congenital spinal canal stenosis. Impression and Plan: 70-year-old male presented post fall while on the toilet. MRI brain showed small acute infarct within left thalamus and posterior limb of left internal capsule CT head did not show any acute finding. CTA head and neck showed multifocal intracranial extracranial atherosclerotic disease. CT cervical spine showed multilevel degenerative disc disease with severe C5-6 C7 neural foraminal stenosis. Acute encephalopathy on presentation-improving Elevated troponin/NSTEMI History of cognitive impairment History of right Frontoparietal hemorrhage while on dual antiplatelet therapy in Oct [address] head on 12/12/2019 showed resolving hemorrhage History of ischemic infarct R motor cortex and R occipital lobe in Aug 2019... ??? Embolic infarct, unclear if work up completed at that time. Abnormal hypercoagulable panel-lipoprotein a 72 increased, Antithrombin III 78 low, factor VII activity 253 increased Left hemiparesis KING - non compliance with CPAP Hypertension Hyperlipidemia Diabetes CAD status post stenting 04/25/2021 LDL 51 HbA1c 7.5 Plan Cardiac syncope evaluation, EKG showed normal sinus rhythm, QTC 449. 2D echo with bubble study completed, results pending Continue Plavix 75 mg daily and Lipitor 40 mg daily for stroke prevention. Patient has a history of frontoparietal hemorrhage while on dual antiplatelet therapy in October 2019, there was resolution of hemorrhage on CT head done on 12/12/2019. Discussed with patient and his regarding the risk and benefits of dual antiplatelet therapy aspirin and Plavix if in case he needs after post cardiac catheterization. Patient and his said they would like to discuss this among themselves and let us know if they are okay with the dual antiplatelet therapy or not. Cardiology planning for cardiac catheterization on Wednesday. Patient on heparin drip (no boluses) Neurosurgery on board -we will discuss with neurosurgery regarding MRI cervical and lumbar spine findings. PT/OT evaluation and therapy Rest medical management as per primary team We will continue to follow Fanta Levy MD Attending Neurologist [facility] Images from the original note were not included. Nellie Senior [employer] Analyst Progress Note Date: 04/27/2021 Patient name: Yoel Van Date of admission: 04/24/2021 9:50 PM Date of : 1955 PCP: Alec Pinzon MD Reason for Admission: NSTEMI (non-ST elevated myocardial infarction) ([facility]) [I21.4] Subjective: Clinical Changes /Abnormalities: Patient seen and examined in room with at bedside after discussion with RN. Denies chest pain or SOB. SR on HR 65 Replacing K and Mag today. Possible CATH on Wednesday. Heparin IV infusing. Review of Systems Medications: Scheduled Meds: magnesium sulfate 2,000 mg Intravenous Once nicotine 1 patch Transdermal Daily sodium chloride flush 5-40 mL Intravenous 2 times per day atorvastatin 40 mg Oral Daily gabapentin 600 mg Oral BID traZODone 200 mg Oral Nightly metoprolol tartrate 25 mg Oral BID [Held by provider] clopidogrel 75 mg Oral Daily pantoprazole 40 mg Oral Nightly Continuous Infusions: sodium chloride heparin (PORCINE) Infusion 15.78 Units/kg/hr (04/27/21 0846) CBC: Recent Labs 04/24/21222004/25/21 1329 04/27/21 0311 WBC 10.0 6.7 7.9 HGB 14.5 13.8 12.9* PLT 249 195 223 BMP: Recent Labs 04/24/21222004/26/21 0023 04/27/21 0311 NA 134* 137 136 K 3.7 3.6* 3.5* CL 99 102 103 CO2 19* 23 22 BUN 18 9 11 CREATININE 0.82 0.53* 0.80 GLUCOSE 130* 249* 189* Hepatic:No results for input(s): AST, ALT, ALB, BILITOT, ALKPHOS in the last 72 hours. Troponin: Recent Labs 04/25/21203204/26/21 0023 04/26/21 0655 TROPHS 187* 199* 267* BNP: No results for input(s): BNP in the last 72 hours. Lipids: Recent Labs 04/26/21 0023 CHOL 112 HDL 25* INR: Recent Labs 04/24/21 2221 INR 1.0 DIAGNOSTIC DATA EKG 04/26/2021 Normal sinus rhythm Normal ECG When compared with ECG of 24-APR-2021 21:59, No significant change was found ECHO ORDERED PENDING ECHO 05/08/2020 Summary Normal left ventricle size and function with an estimated EF 50- 55%. Moderate left ventricular hypertrophy. Normal right ventricular size and function. Left atrial dilatation. Negative bubble study, with and without Valsalva maneuver, no suggestion of inter-atrial shunt. Mild mitral regurgitation. Aortic root is mildly dilated. (4.3 cm) No significant pericardial effusion is seen. CATH PLANNED FOR Wednesday. Objective: Vitals: BP 136/70 Pulse 75 Temp 98.4 F (36.9 C) (Oral) Resp 18 Ht 6' (1.829 m) Wt 223 lb (101.2 kg) SpO2 95% BMI 30.24 kg/m General appearance: alert and cooperative with exam HEENT: Head: Normocephalic, no lesions, without obvious abnormality. Neck:no JVD, trachea midline, no adenopathy Lungs: Clear to auscultation Heart: Regular rate and rhythm, s1/s2 auscultated, no murmurs SR on tele HR 65 Abdomen: soft, non-tender, bowel sounds active Extremities: no edema Neurologic: not done Assessment / Acute Cardiac Problems: 1. NSTEMI likely type I with elevated troponin now with a flat trend 180 175-187-199. EKG without ischemic changes 2. CAD s/p stents to RCA and circumflex, FOOT CASTER obtuse branch at [facility] man years ago 3. Thoracic aortic aneurysm about 4.4 cm. Follows with cardiology 4. Severe PAD s/p right femoral-popliteal bypass graft 5. Echo 05/08/2020 with preserved EF, moderate LVH, dilated left atrium 6. Diabetes mellitus 7. History of ischemic stroke later converted to hemorrhagic stroke while on DAPT. 8. Status post fall likely TIA Vs syncope Vs seizure 9. Multifocal intracranial/extracranial atherosclerotic disease Patient Active Problem List: Acute cerebrovascular accident (CVA) (HCC) Intraparenchymal hemorrhage of brain (HCC) Cerebrovascular accident (CVA) due to embolism of precerebral artery (HCC) Memory impairment NSTEMI (non-ST elevated myocardial infarction) ([facility]) Altered mental status Plan of Treatment: 1. NSTEMI with elevated troponin. [phone] Plan for cardiac cath on Wednesday per Dr Dumont. 2. Awaiting ECHO with Bubble study. 3. Continue IV heparin, statin, BB 4. CVA per neurology small acute ischemic infarct. okay to continue IV heparin. Held am Plavix per neurology. Will reach out to nephrology regarding possible cath on Wednesday. Per PS message neurology will review and discuss with Cardiology tomorrow. 5. ID following. Consult today noted does not advocate for any invasive testing at this time. Will reach out to ID regarding possible Cath on Wednesday. Per PS message ID Okay to proceed with CATH, there is no contraindication from ID standpoint. 6. Keep K > 4.0 and Mag > 2.0 K 3.5 and Mag 1.3 Replaced this AM. Will repeat labs this afternoon 7. Rest of care managed per Primary Team. 8. Will discuss with Dr Dumont regarding PS that neurology will discuss with cardiology tomorrow. [employer] [phone] Paged Neurology at 22:19 regarding heparin drip and whether or not patient is appropriate for heparin boluses or just adjust medication through infusion. Messaged with Leonardo Jeter MD who deferred to Primary team. I then messaged the on-call Internal Medicine Briquette Molder who deferred to Cardiology. I sent Cardiology a message and spoke to Carlito Aguiar MD, that said heparin boluses were okay as long as Neuro was okay with it. I then sent another message to Neuro who gave orders to hold the heparin boluses for tonight and will discuss with primary team in the morning. Heparin bolus was held and adjusted drip according to MAR. Neurosurgery Resident Daily Progress Note 04/26/2021 1:28 PM Subjective: No acute events overnight. No new complaints. Patient states symptoms upon initial presentation are improving. Numbness/tingling from peripheral neuropathy at baseline. Vitals: 04/26/21 0009 04/26/21 0500 04/26/21 0754 04/26/21 0800 BP: (!) 157/86 112/74 109/63 109/63 Pulse: 91 78 83 Resp: Temp: 98.8 F (37.1 C) 97.8 F (36.6 C) 97.8 F (36.6 C) 96.8 F (36 C) TempSrc: Oral Oral Oral SpO2: 96% 96% 94% Weight: Height: Objective: Gen: Resting comfortably, no acute distress CV: RRR, pulses 2+ Resp: Symmetric chest rise, no accessory muscle use, normal respirations Neuro: Difficult coordination with [id number]. No arm drift. BUE and BLE with 5/5 strength throughout and SILT. Diminished sensation bilateral hands and feet at baseline. Lab Results Component Value Date WBC 6.7 04/25/2021 HGB 13.8 04/25/2021 HCT 41.8 04/25/2021 PLT 195 04/25/2021 CHOL 112 04/26/2021 TRIG 181 (H) 04/26/2021 HDL 25 (L) 04/26/2021 NA 137 04/26/2021 K 3.6 (L) 04/26/2021 CL 102 04/26/2021 CREATININE 0.53 (L) 04/26/2021 BUN 9 04/26/2021 CO2 23 04/26/2021 TSH 1.04 04/25/2021 INR 1.0 04/24/2021 LABA1C 7.5 (H) 04/25/2021 Assessment/Plan 65 y.o. male who presents with stroke of left thalamus and posterior limb of left internal capsule -No acute cervical or lumbar spine trauma. - Patient with degenerative disc disease of cervical and lumbar spine. Recommend follow up with neurosurgery as outpatient as needed. Neurology to manage acute ischemic stroke - No neurosurgical interventions planned for now - CTLS recommendations: None - Patient on heparin due to NSTEMI, management per cardiology. Planning for PCI on Wednesday. - We recommend SBP < 160 - Determine the lower limit of SBP clinically based on mentation - Neuro checks per floor protocol - Additional recommendations may follow - Neurosurgery to sign off. Please do not hesitate to perfect serve with any questions or concerns. Please contact neurosurgery with any changes in patients neurologic status Jair Jaeger DO, PGY-5 [facility] 1:33 PM 04/26/21 Associated attestation - Robert Ramsey MD - 04/26/2021 2:47 PM EDT I have reviewed and agree with Dr. Jaeger's note. I also saw and examined the patient today. S: Patient without significant complaints today. Has some tingling in fingers and toes, consistent with his previous diagnosis of diabetic neuropathy. He does not feel that this is any different than baseline. He did have a period of feeling that he was having difficulty moving, but that has resolved. O: Awake, alert, NAD Answering questions appropriately with clear and fluent speech EOMI, FS No drift MAEW with 5/5 strength throughout Sensation intact to light touch Does well with [id number] testing. Gait testing deferred. Imaging: I personally reviewed MRIs of the head, cervical and lumbar spine as well as the radiologists' reports for each. MRI of the cervical spine shows some canal stenosis without compression of the cervical spinal cord. MRI of the brain reveals a small, acute stroke in the posterior limb of the left internal capsule. The radiologist has raised concern for possible discitis/osteomyelitis at L5-S1, but the patient is not demonstrating any worrisome findings on physical exam. Impression/Recommendations: 65 year old man with left posterior limb of internal capsule stroke, transient episode of weakness. -I do not appreciate any ongoing compression of the cervical spine, so I see no need for surgical intervention at this time. I would recommend stroke service consultation due to the presence of a small internal capsule stroke. No plans for surgical treatment at this time. If the area of concern on MRI at L5-S1 is felt to be ambulatory services representative of infection I would recommend an IR biopsy for culture, though he does not seem to be symptomatic and his WBC count is normal. Physician Progress Note PATIENT: YOEL VAN CSN #: [id number] : 1955 ADMIT DATE: 04/24/2021 9:50 PM DISCH DATE: RESPONDING PROVIDER #: GEE PARNELL QUERY TEXT: Pt admitted with AMS s/p fall. Please document in progress notes and discharge summary if you are evaluating/treating any of the following: The medical record reflects the following: Risk Factors: Fall off toilet striking head Clinical Indicators: CTH negative for acute process, pending MRI brain. AMS, agitation, no LOC, bilat LE weakness. CTA H/N with no large vessel occlusion. Per Neurology notes: Acute encephalopathy. UA negative, afebrile, Normal elytes & CBC. HS Troponins 175-199. Neurology progress note 04/25: More awake & alert but is still lethargic. Treatment: Stroke consult, Neurology consult, Cardio consult, Neuro checks, CTH, pending MRI brain Options provided: -- Concussion -- Concussion ruled out after study. -- Other - I will add my own diagnosis -- Disagree - Not applicable / Not valid -- Disagree - Clinically unable to determine / Unknown -- Refer to Clinical Documentation Reviewer PROVIDER RESPONSE TEXT: Acute Encephalopathy s/p fall Query created by: Candy Arndt on 04/26/2021 5:40 AM Electronically signed by: GEE PARNELL 04/26/2021 8:22 AM [facility] Neurology IN-PATIENT SERVICE [facility] HISTORY AND PHYSICAL EXAMINATION Date: 04/26/2021 Patient name: Yoel Van Date of admission: 04/24/2021 9:50 PM Account: [id number] Date of : 1955 PCP: Alec Pinzon MD Room: 0542/0542-01 Code Status: Full Code Chief Complaint: Chief Complaint Patient presents with Altered Mental Status History Obtained From: Seen and evaluated the bedside. He is alert and oriented x4. Mini cog 1/3. No sensory deficits. No facial asymmetry. Motor exam 5 out of 5. Gait unsteady. Patient is compliant and further management plan was discussed with the patient and the . History of Present Illness: 65 y.o. male who presents after falling while on the toilet. Patient has a medical history of type 2 diabetes, essential hypertension, obesity, hyperlipidemia right-sided coronary radiata infarction in Aug 2019, and right parietal hemorrhage in 2019 while being treated with DAPT. Currently patient takes Plavix monotherapy 75 mg. Patient reportedly lost consciousness while on the toilet and fell onto his right side, hitting his head. Patient's was able to help the patient back up, however they noticed lower extremity weakness at that time. Patient had no difficulty emptying his bowels but had progressively worsening lower extremity weakness as the day went on. Patient had to use a walker to ambulate, usually does not use any assistive devices. On presentation to the ER, patient is wearing a C-collar and has bilateral lower extremity weakness and numbness. He does not react to noxious stimuli applied to either upper or lower extremities. He is unable to tell me the month and his age, but is complaining of left-sided shoulder pain and a runny nose. He is also unable to follow two-step commands, and speech is slightly slurred according to his . Blood pressures 178/96. Troponin elevated 125>180. CT head showed no evidence for acute intracranial hemorrhage, infarction or mass lesion. It did demonstrate chronic lacunar infarction in the right pacheco radiata and mild chronic microangiopathic ischemic disease. CTA head and neck did not reveal any significant stenosis correlating with patient's symptoms. X-ray shoulder and CT cervical spine did not show any acute abnormalities. Patient's exam is variable. Upon reevaluation, patient's strength is 5/5 with no deficits. Patient is scheduled for MRI cervical/brain/lumbar. Plan to continue Plavix 75 mg and statin Past Medical History: Past Medical History: Diagnosis Date Cerebral artery occlusion with cerebral infarction (HCC) Diabetes mellitus (HCC) Headache Hyperlipidemia Hypertension Past Surgical History: Past Surgical History: Procedure Laterality Date CARDIAC SURGERY ROTATOR CUFF REPAIR ROTATOR CUFF REPAIR Medications Prior to Admission: Prior to Admission medications Medication Sig Start Date End Date Taking? Authorizing Provider varenicline (CHANTIX STARTING MONTH RYNE) 0.5 MG X 11 & 1 MG X 42 tablet Chantix Starting Month Box 0.5 mg (11)-1 mg (42) tablets in dose pack Historical Provider, diclofenac sodium 1 % GEL APPLY TO THE AFFECTED AREA(S) FOUR TIMES DAILY NEEDED (TRANSDERMALLY) 12/07/19 Historical Provider, clopidogrel (PLAVIX) 75 MG tablet clopidogrel 75 mg tablet Historical Provider, pioglitazone (ACTOS) 30 MG tablet Take 30 mg by mouth daily Historical Provider, AMITRIPTYLINE HCL PO Take 150 mg by mouth Historical Provider, Carvedilol (COREG PO) Take 37.5 mg by mouth 2 times daily Historical Provider, gabapentin (NEURONTIN) 600 MG tablet Take 600 mg by mouth 2 times daily. Historical Provider, glipiZIDE (GLUCOTROL XL) 10 MG extended release tablet Take 10 mg by mouth daily Historical Provider, SITagliptin (JANUVIA) 100 MG tablet Take 100 mg by mouth daily Historical Provider, atorvastatin (LIPITOR) 40 MG tablet Take 40 mg by mouth daily Historical Provider, lisinopril (PRINIVIL;ZESTRIL) 40 MG tablet Take 40 mg by mouth daily Historical Provider, metFORMIN (GLUCOPHAGE) 1000 MG tablet Take 1,000 mg by mouth 2 times daily (with meals) Historical Provider, nitroGLYCERIN (NITROSTAT) 0.[address] 0.4 mg under the tongue every 5 minutes as needed for Chest pain up to max of 3 total doses. If no relief after 1 dose, call 911. Historical ProviderMD oxyCODONE-acetaminophen (PERCOCET) 5-325 MG per tablet Take 2 tablets by mouth every 4 hours as needed for Pain. Historical Provider, Pantoprazole Sodium (PROTONIX PO) Take 80 mg by mouth nightly Historical ProviderMD TRAZODONE HCL PO Take 200 mg of ampicillin by mouth nightly Historical Provider, Allergies: Patient has no known allergies. Social History: Tobacco: reports that he has been smoking cigarettes. He has a 22.50 pack-year smoking history. He has never used smokeless tobacco. Alcohol: reports previous alcohol use. Drug Use: reports no history of drug use. Family History: Family History Problem Relation Age of Onset Heart Disease Mother Stroke Mother Cancer Father lung Cancer Sister Cancer Brother throat Cancer Maternal Grandmother breast Alcohol Abuse Maternal Grandfather Other Paternal Grandmother leukemia Heart Attack Paternal Grandfather Review of Systems: Review of Systems Constitutional: Negative for fatigue. HENT: Negative for ear discharge, nosebleeds and sinus pressure. Eyes: Negative for pain. Respiratory: Negative for chest tightness and shortness of breath. Cardiovascular: Negative for chest pain, palpitations and leg swelling. Gastrointestinal: Negative for abdominal distention, diarrhea and vomiting. Endocrine: Negative for heat intolerance and polyphagia. Genitourinary: Negative for enuresis, hematuria and scrotal swelling. Musculoskeletal: Positive for gait problem. Negative for neck pain. Allergic/Immunologic: Negative for environmental allergies. Neurological: Negative for tremors, seizures, facial asymmetry, speech difficulty, weakness, numbness and headaches. Psychiatric/Behavioral: Negative for dysphoric mood and self-injury. Physical Exam: BP 112/74 Pulse 78 Temp 97.8 F (36.6 C) (Oral) Resp 18 Ht 6' (1.829 m) Wt 223 lb (101.2 kg) SpO2 96% BMI 30.24 kg/m Temp (24hrs), Av.1 F (36.7 C), Min:97.5 F (36.4 C), Max:98.8 F (37.1 C) Recent Labs 04/24/217 04/25/21 0237 POCGLU 140* 224* Intake/Output Summary (Last 24 hours) at 04/26/2021 0724 Last data filed at 04/25/2021 2300 Gross per 24 hour Intake 240 ml Output Net 240 ml Neurologic Exam Mental Status Oriented to person, place, and time. Registration: recalls 1 of 3 objects. Follows 3 step commands. Attention: decreased. Concentration: normal. Level of consciousness: alert Knowledge: good and consistent with education. Cranial Nerves Cranial nerves II through XII intact. Motor Exam Muscle bulk: normal Strength Right neck flexion: 5/5 Left neck flexion: 5/5 Right neck extension: 5/5 Left neck extension: 5/5 Right deltoid: 5/5 Left deltoid: 5/5 Right biceps: 5/5 Left biceps: 5/5 Right triceps: 5/5 Left triceps: 5/5 Right wrist flexion: 5/5 Left wrist flexion: 5/5 Right wrist extension: 5/5 Left wrist extension: 5/5 Right interossei: 5/5 Left interossei: 5/5 Right abdominals: 5/5 Left abdominals: 5/5 Right iliopsoas: 5/5 Left iliopsoas: 5/5 Right quadriceps: 5/5 Left quadriceps: 5/5 Right hamstrin/5 Left hamstrin/5 Right glutei: 5/5 Left glutei: 5/5 Right anterior tibial: 5/5 Left anterior tibial: 5/5 Right posterior tibial: 5/5 Left posterior tibial: 5/5 Right peroneal: 5/5 Left peroneal: 5/5 Right gastroc: 5/5 Left gastroc: 5/5 Sensory Exam Light touch normal. Gait, Coordination, and Reflexes Gait Gait: normal Tremor Resting tremor: absent Reflexes Right brachioradialis: 2+ Left brachioradialis: 2+ Right biceps: 2+ Left biceps: 2+ Right triceps: 2+ Left triceps: 2+ Right patellar: 2+ Left patellar: 2+ Right achilles: 2+ Left achilles: 2+ Right script artist: 2+ Left script artist: 2+ Investigations: Laboratory Testing: Recent Results (from the past 24 hour(s)) HEMOGLOBIN A1C Collection Time: 04/25/21 10:23 AM Result Value Ref Range Hemoglobin A1C 7.5 (H) 4.0 - 6.0 % Estimated Avg Glucose 169 mg/dL VITAMIN B12 & FOLATE Collection Time: 04/25/21 12:17 PM Result Value Ref Range Vitamin B-12 594 232 - 1245 pg/mL Folate 15.2 >4.8 ng/mL CBC Collection Time: 04/25/21 1:29 PM Result Value Ref Range WBC 6.7 3.5 - 11.3 k/uL RBC 4.49 4.21 - 5.77 m/uL Hemoglobin 13.8 13.0 - 17.0 g/dL Hematocrit 41.8 40.7 - 50.3 % MCV 93.1 82.6 - 102.9 fL MCH 30.7 25.2 - 33.5 pg MCHC 33.0 28.4 - 34.8 g/dL RDW 14.0 11.8 - 14.4 % Platelets 195 138 - 453 k/uL MPV 10.3 8.1 - 13.5 fL NRBC Automated 0.0 0.0 per 100 WBC APTT Collection Time: 04/25/21 1:29 PM Result Value Ref Range PTT 78.5 (H) 20.5 - 30.5 sec APTT Collection Time: 04/25/21 7:18 PM Result Value Ref Range PTT 24.8 20.5 - 30.5 sec Troponin Collection Time: 04/25/21 8:33 PM Result Value Ref Range Troponin, High Sensitivity 187 (HH) 0 - 22 ng/L Troponin T NOT REPORTED <0.03 ng/mL Troponin Interp NOT REPORTED TSH with Reflex Collection Time: 04/25/21 8:33 PM Result Value Ref Range TSH 1.04 0.30 - 5.00 mIU/L DRUG SCREEN MULTI URINE Collection Time: 04/25/21 10:12 PM Result Value Ref Range Amphetamine Screen, Ur NEGATIVE NEGATIVE Barbiturate Screen, Ur NEGATIVE NEGATIVE Benzodiazepine Screen, Urine NEGATIVE NEGATIVE Cocaine Metabolite, Urine NEGATIVE NEGATIVE Methadone Screen, Urine NEGATIVE NEGATIVE Opiates, Urine NEGATIVE NEGATIVE Phencyclidine, Urine NEGATIVE NEGATIVE Propoxyphene, Urine NOT REPORTED NEGATIVE Cannabinoid Scrn, Ur NEGATIVE NEGATIVE Oxycodone Screen, Ur NEGATIVE NEGATIVE Methamphetamine, Urine NOT REPORTED NEGATIVE Tricyclic Antidepressants, Urine NOT REPORTED NEGATIVE MDMA, Urine NOT REPORTED NEGATIVE Buprenorphine Urine NOT REPORTED NEGATIVE Test Information Assay provides medical screening only. The absence of expected drug(s) and/or metabolite(s) may indicate diluted or adulterated urine, limitations of testing or timing of collection. Urinalysis Reflex to Culture Collection Time: 04/25/21 10:12 PM Specimen: Urine, clean catch Result Value Ref Range Color, UA YELLOW YELLOW Turbidity UA CLEAR CLEAR Glucose, Ur 1+ (A) NEGATIVE Bilirubin Urine NEGATIVE NEGATIVE Ketones, Urine TRACE (A) NEGATIVE Specific [place], UA 1.012 1.005 - 1.030 Urine Hgb TRACE (A) NEGATIVE pH, UA 7.0 5.0 - 8.0 Protein, UA 2+ (A) NEGATIVE Urobilinogen, Urine Normal Normal Nitrite, Urine NEGATIVE NEGATIVE Leukocyte Esterase, Urine NEGATIVE NEGATIVE Urinalysis Comments NOT REPORTED Microscopic Urinalysis Collection Time: 04/25/21 10:12 PM Result Value Ref Range - WBC, UA None 0 - 5 /HPF RBC, UA 5 TO 10 0 - 4 /HPF Casts UA NOT REPORTED 0 - 8 /LPF Crystals, UA NOT REPORTED None /HPF Epithelial Cells UA None 0 - 5 /HPF Renal Epithelial, UA NOT REPORTED 0 /HPF Bacteria, UA NOT REPORTED None Mucus, UA NOT REPORTED None Trichomonas, UA NOT REPORTED None Amorphous, UA NOT REPORTED None Other Observations UA NOT REPORTED NOT REQ. Yeast, UA NOT REPORTED None APTT Collection Time: 04/26/21 12:23 AM Result Value Ref Range PTT 62.7 (H) 20.5 - 30.5 sec LIPID PANEL Collection Time: 04/26/21 12:23 AM Result Value Ref Range Cholesterol 112 <200 mg/dL HDL 25 (L) >40 mg/dL LDL Cholesterol 51 0 - 130 mg/dL Chol/HDL Ratio 4.5 <5 Triglycerides 181 (H) <150 mg/dL VLDL NOT REPORTED (H) 1 - 30 mg/dL Basic Metabolic Panel w/ Reflex to MG Collection Time: 04/26/21 12:23 AM Result Value Ref Range Glucose 249 (H) 70 - 99 mg/dL BUN 9 8 - 23 mg/dL CREATININE 0.53 (L) 0.70 - 1.20 mg/dL Bun/Cre Ratio NOT REPORTED 9 - 20 Calcium 9.3 8.6 - 10.4 mg/dL Sodium 137 135 - 144 mmol/L Potassium 3.6 (L) 3.7 - 5.3 mmol/L Chloride 102 98 - 107 mmol/L CO2 23 20 - 31 mmol/L Anion Gap 12 9 - 17 mmol/L GFR Non- >60 >60 mL/min GFR >60 >60 mL/min GFR Comment GFR Staging NOT REPORTED Troponin Collection Time: 04/26/21 12:23 AM Result Value Ref Range Troponin, High Sensitivity 199 (HH) 0 - 22 ng/L Troponin T NOT REPORTED <0.03 ng/mL Troponin Interp NOT REPORTED EKG 12 Lead Collection Time: 04/26/21 2:16 AM Result Value Ref Range Ventricular Rate 83 BPM Atrial Rate 83 BPM P-R Interval 158 ms QRS Duration 98 ms Q-T Interval 394 ms QTc Calculation (Bazett) 462 ms P [place] 48 degrees R [place] -20 degrees T [place] 89 degrees Assessment : Primary Problem <principal problem not specified> Active Hospital Problems Diagnosis Date Noted NSTEMI (non-ST elevated myocardial infarction) (HCC) [I21.4] 04/25/2021 Altered mental status [R41.82] 65 y.o. male who presents with bilateral LE weakness and sensory loss from neck down, absent reflexes after syncopal episode while on toilet. Syncopal episode possible vasovagal in etiology. CT head and CTA unrevealing for acute pathology, CT cervical spine and shoulder XR show no acute abnormality. Trauma surgery consulted. Troponins trending upwards from NSTEMI. Patient's neurological exam on presentation concerning for stroke, symptoms have now resolved. Recommend obtaining MRI brain in AM, 2D ECHO and complete stroke workup. Cont Plavix and Lipitor. Further management plan will discuss with the patient and his . They were counseled about the need of cardiac catheterization possible risk versus benefit. Dual antiplatelet option was discussed and they were explained about the possibility of hemorrhage risk associated with it. Patient and his will discuss the option and will notify. Plan: Patient status Admit as inpatient in the Progressive Unit/Step down Imaging: - MRI brain, cervical spine and lumbar spine without contrast: Acute infarct within the left thalamus and posterior limb of the left internal capsule was seen. Cerebral atrophy with mild chronic microvascular disease within the periventricular white matter. - 2D echo with bubble study awaiting result. - Heme-onc consulted. -Talk to cardiology for previous Holter monitor results - Plavix 75 mg daily Lipitor 40 mg daily. - Lipid panel and Hb A1c. - Mild hypokalemia: Replace K 40 mEq once. - Neurosurgery on board. - PT/OT. - Medical management as primary team. - Continue to follow-up. Consultations: IP CONSULT TO STROKE TEAM IP CONSULT TO NEUROSURGERY IP CONSULT TO TRAUMA SURGERY IP CONSULT TO INTERNAL MEDICINE IP CONSULT TO CARDIOLOGY IP CONSULT TO CASE MANAGEMENT Follow-up further recommendations after discussing the case with attending The plan was discussed with the patient, patient's family and the medical staff. Patient is admitted as inpatient status because of co-morbidities listed above, severity of signs and symptoms as outlined, requirement for current medical therapies and most importantly because of direct risk to patient if care not provided in a hospital setting. Rogelio Epstein MD 04/26/2021 7:24 AM Copy sent to Dr. Alec Pinzon MD Associated attestation - Fanta Levy MD - 04/27/2021 4:54 PM EDT Attending Physician Statement: I have discussed the case of Yoel Van, including pertinent history and exam findings with the resident. I have seen and examined the patient and the burnett elements of the encounter have been performed by me. I have reviewed medications, clinical laboratory, imaging and other diagnostic tests with the residents. I agree with the assessment, plan and orders as documented by the resident with changes made to the note as needed. Patient was seen and examined. He was awake alert oriented x4. Denies any new neurologic concerns. Endorses mild gait unsteadiness. No acute events overnight. MRI brain 04/27/2021 showed small acute infarct in the left thalamus and posterior limb of left internal capsule. Sensibility within right parietal lobe periventricular white matter which may represent a cavernoma versus old hemorrhage. Moderate cerebral atrophy. Mild chronic microvascular changes. MRI cervical spine and lumbar spine pending Imaging CT head did not show any acute finding. Showed chronic lacunar infarct in the right pacheco radiata and mild chronic microangiopathic ischemic changes. CTA head and neck showed bilateral carotid bifurcation atherosclerotic plaque resulting approximately 40% left and 20% right stenosis of the proximal ICAs. Bilateral ICA cavernous segment atherosclerotic calcification with 25% stenosis. Bilateral vertebral artery V4 segment atherosclerotic calcification resulting in high grade focal stenosis of the left vertebral artery. Left vertebral artery mid cervical segment approximately 70% stenosis by atherosclerotic plaque CT cervical spine showed C5-6 moderate, C6-7 mild central canal stenosis secondary to encroachment by disc osteophyte complex. C3-C4 mild bilateral, C5-C6 moderate bilateral and C6-C7 severe left and moderate right neuroforaminal stenosis secondary to encroachment of disc osteophyte complex. CT abdomen pelvis without contrast showed sigmoid colon diverticulosis. Bifemoral arterial graft. Severe bilateral iliac arterial atherosclerosis. L5/S1 severe bilateral neuroforaminal stenosis secondary to encroachment by disc osteophyte complex. Impression and Plan: 70-year-old male presented post fall while on the toilet. MRI brain showed small acute infarct within left thalamus and posterior limb of left internal capsule CT head did not show any acute finding. CTA head and neck showed multifocal intracranial extracranial atherosclerotic disease. CT cervical spine showed multilevel degenerative disc disease with severe C5-6 C7 neural foraminal stenosis. 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 ??? Embolic infarct, unclear if work up completed at that time. Abnormal hypercoagulable panel-lipoprotein a 72 increased, Antithrombin III 78 low, factor VII activity 253 increased Left hemiparesis KING - non compliance with CPAP Hypertension Hyperlipidemia Diabetes CAD status post stenting 04/25/2021 LDL 51 HbA1c 7.5 Plan MRI cervical spine without contrast pending MRI lumbar spine without contrast pending Cardiac syncope evaluation, EKG showed normal sinus rhythm, QTC 449. 2D echo with bubble study completed, results pending Continue Plavix 75 mg daily and Lipitor 40 mg daily for stroke prevention. Patient has a history of frontoparietal hemorrhage while on dual antiplatelet therapy in October 2019, there was resolution of hemorrhage on CT head done on 12/12/2019. Discussed with patient and his regarding the risk and benefits of dual antiplatelet therapy aspirin and Plavix if in case he needs after post cardiac catheterization. Patient and his said they would like to discuss this among themselves and let us know if they are okay with the dual antiplatelet therapy or not. Neurosurgery on board PT/OT evaluation and therapy Rest medical management as per primary team We will continue to follow Fanta Levy MD Attending Neurologist [facility] [place] Images from the original note were not included. [facility] Internal Medicine Teaching Residency Program Inpatient Daily Progress Note Patient: Yoel Van Date of : 1955 Acct: [id number] Room: 42/0542-01 Admit date: 04/24/2021 Today's date: 04/26/21 Number of days in the hospital: 1 SUBJECTIVE Admitting Diagnosis: Fall with acute encephalopcathy CC: Fall with change in mental status Pt examined at bedside. Chart & results reviewed. The patient's mental status has improved since yesterday, Trending trops. MRI pending today; will follow Neurology recommendation Cardiology- likely planning for cath for possible NSTEMI Patient reported feeling better today, no SOB, chest pain, nausea, vomiting, abdominal pain, dysuria. Patient is currently on Heparin gtt ROS: Constitutional: negative for chills, fevers, sweats Respiratory: negative for cough, dyspnea on exertion, hemoptysis, shortness of breath, wheezing Cardiovascular: negative for chest pain, chest pressure/discomfort, lower extremity edema, palpitations Gastrointestinal: negative for abdominal pain, constipation, diarrhea, nausea, vomiting Neurological: negative for dizziness, headache BRIEF HISTORY The patient is a pleasant 65 y.o. male presents with a chief complaint of dizziness and fall at home. The patient has a past medical history of 2 CVA, DM 2 hypertension, CAD status post 3 stents. The patient reported he was to the bathroom and before he could use the bathroom he felt sudden weakness in both his lower extremities and he fell on the bathroom floor, and hit his head. Patient's came to help him get up in the bathroom and helped him sit on the toilet. The patient denies urinary incontinence, tongue biting or seizure-like activity. After the fall the patient reported feeling bilateral lower extremity weakness. The patient's checked his blood sugar after the fall which was 78. The patient had some juice and food. patient's reported mental status changes including continued cigarette after 2 weeks of quitting. Patient rested for 2 to 3 hours after the fall at home and patient's brought him to the ED due to his change of mental status. The ED patient was hemodynamically stable, afebrile, saturating over 95% on room air. Stroke alert was called and neuro was consulted. The patient was combative and cooperative in the ED and subsequently received Ativan 5 mg and Haldol 10 mg. Imaging showed no new acute findings. CTA head and neck showed bilateral carotid bifurcation atherosclerotic plaque resulting in approximately 4 to 40% left and 20% right stenosis of proximal ICAs. CT cervical spine showed mild central canal stenosis secondary to encroachment by disc osteophyte complex. CT abdomen pelvis showed sigmoid colon diverticulosis and severe bilateral iliac arterial atherosclerosis. Troponins 180 --> 175 --> 187 --> 199. EKG showed no significant changes as compared to the previous EKG. Blood sugar was 140. H&H stable, no signs of infection. Electrolytes are within normal limits. OBJECTIVE Vital Signs: BP (!) 157/86 Pulse 91 Temp 98.8 F (37.1 C) (Oral) Resp 24 Ht 6' (1.829 m) Wt 223 lb (101.2 kg) SpO2 96% BMI 30.24 kg/m Temp (24hrs), Av F (36.7 C), Min:97.5 F (36.4 C), Max:98.8 F (37.1 C) No intake/output data recorded. Physical Exam: Constitutional: This is a well developed, well nourished, 30-34.9 - Obesity Grade I 65 y.o. year old male who is alert, oriented, cooperative and in no apparent distress. Head:normocephalic and atraumatic. EENT: PERRLA. No conjunctival injections. Septum was midline, mucosa was without erythema, exudates or cobblestoning. No thrush was noted. Neck: Supple without thyromegaly. No elevated JVP. Trachea was midline. Respiratory: Chest was symmetrical without dullness to percussion. Breath sounds bilaterally were clear to auscultation. There were no wheezes, rhonchi or rales. There is no intercostal retraction or use of accessory muscles. No egophony noted. Cardiovascular: Regular without murmur, clicks, gallops or rubs. Abdomen: Slightly rounded and soft without organomegaly. No rebound, rigidity or guarding was appreciated. Lymphatic: No lymphadenopathy. Musculoskeletal: No gross muscle weakness. Extremities: No lower extremity edema, ulcerations, tenderness, varicosities or erythema. Muscle size, tone and strength are normal. No involuntary movements are noted. Skin: Warm and dry. Good color, turgor and pigmentation. No lesions or scars. No cyanosis or clubbing Neurological/Psychiatric: The patient's general behavior, level of consciousness, thought content and emotional status is normal. Medications: Scheduled Medications: sodium chloride flush 5-40 mL Intravenous 2 times per day atorvastatin 40 mg Oral Daily gabapentin 600 mg Oral BID traZODone 200 mg Oral Nightly metoprolol tartrate 25 mg Oral BID clopidogrel 75 mg Oral Daily pantoprazole 40 mg Oral Nightly Continuous Infusions: sodium chloride heparin (PORCINE) Infusion 13.783 Units/kg/hr (04/25/212233) PRN Medicationslabetalol, 20 mg, Q4H PRN sodium chloride flush, 5-40 mL, PRN sodium chloride, 25 mL, PRN ondansetron, 4 mg, Q8H PRN Or ondansetron, 4 mg, Q6H PRN polyethylene glycol, 17 g, Daily PRN acetaminophen, 650 mg, Q6H PRN Or acetaminophen, 650 mg, Q6H PRN heparin (porcine), 4,000 Units, PRN heparin (porcine), 2,000 Units, PRN nitroGLYCERIN, 0.4 mg, Q5 Min PRN Diagnostic Labs: CBC: Recent Labs 04/24/21222004/25/21 1329 WBC 10.0 6.7 RBC 4.85 4.49 HGB 14.5 13.8 HCT 44.0 41.8 MCV 90.7 93.1 RDW 14.0 14.0 PLT 249 195 BMP: Recent Labs 04/24/21215604/24/21222004/26/21 0023 NA -- 134* 137 K -- 3.7 3.6* CL -- 99 102 CO2 -- 19* 23 BUN -- 18 9 CREATININE 0.78 0.82 0.53* BNP: No results for input(s): BNP in the last 72 hours. PT/INR: Recent Labs 04/24/212220 PROTIME 10.7 INR 1.0 APTT: Recent Labs 04/25/21 1329 04/25/21 1918 04/26/21 0023 APTT 78.5* 24.8 62.7* CARDIAC ENZYMES: Recent Labs 04/24/212220 CKMB 5.0 FASTING LIPID PANEL: Lab Results Component Value Date CHOL 112 04/26/2021 HDL 25 (L) 04/26/2021 TRIG 181 (H) 04/26/2021 LIVER PROFILE: No results for input(s): AST, ALT, ALB, BILIDIR, BILITOT, ALKPHOS in the last 72 hours. MICROBIOLOGY: No results found for: CULTURE Imaging: CT ABDOMEN PELVIS WO CONTRAST Additional Contrast? None Result Date: 04/25/2021 1. No acute abnormality of the abdomen or pelvis. 2. Sigmoid colon diverticulosis without evidence of diverticulitis. 3. Bifemoral arterial graft, not adequately evaluated in absence of CT angiographic study. 4. Severe bilateral iliac arterial atherosclerosis. 5. L5/S1 severe bilateral neural foraminal stenosis secondary to encroachment by disc osteophyte complex. CT HEAD WO CONTRAST Result Date: 04/24/2021 No evidence for acute intracranial hemorrhage, territorial infarction or intracranial mass lesion. Chronic lacunar infarction right pacheco radiata. Mild chronic microangiopathic ischemic disease. Mild generalized volume loss. CT CERVICAL SPINE WO CONTRAST Result Date: 04/24/2021 1. No acute abnormality of the cervical spine. 2. C5/C6 moderate, C6/C7 mild central canal stenosis secondary to encroachment by disc osteophyte complex. 3. C3/C4 mild bilateral, C5/C6 moderate bilateral, C6/C7 severe left and moderate right neural foraminal stenosis secondary to encroachment by disc osteophyte complex. XR SHOULDER LEFT (MIN 2 VIEWS) Result Date: 04/24/2021 No evidence of an acute fracture involving the left shoulder XR CHEST PORTABLE Result Date: 04/24/2021 Marginal inspiration, without evidence of acute cardiopulmonary disease CTA HEAD NECK W CONTRAST Result Date: 04/24/2021 1. Bilateral carotid bifurcation atherosclerotic plaque resulting approximately 40% left and 20% right stenosis of the proximal internal carotid arteries. Finding is compatible with 16-49% stenosis per sonographic NASCET index criteria. 2. Bilateral internal carotid artery cavernous segment scattered atherosclerotic calcification with up to approximately 25% bilateral arterial stenosis. Finding is compatible with 16-49% stenosis per sonographic NASCET index criteria. 3. Bilateral vertebral artery V4 segment atherosclerotic calcification resulting in focal high-grade stenosis of the left vertebral artery in approximately focal 50% stenosis of the right vertebral artery. 4. Left vertebral artery mid cervical segment approximately 70% stenosis secondary to encroachment by atherosclerotic plaque, as discussed above. RECOMMENDATIONS: For clinical suspicion of acute ischemia, recommend MRI brain with diffusion-weighted imaging for further evaluation ASSESSMENT & PLAN ASSESSMENT / PLAN: IMPRESSION This is a 65 y.o. male who presented after a fall with acute encephalopathy. Active Problems: Fall with head injury and acute encephalopathy - DDx: Stroke Vs. Seizure Vs. Vasovagal - In the setting of 2 prior CVA with similar symptoms; No LOC, no urinary incontinence, no shaking/seizure like activity -Acute changes in mental status per - Troponins 180 --> 175 --> 187 --> 199. EKG showed no significant changes as compared to the previous EKG. - Trending troponins- will follow up - Cardiology consulted- will follow up recommendation - Awaiting MRI today NSTEMI (non-ST elevated myocardial infarction) (HCC) Plan: Troponins 180 --> 175 --> 187 --> 199 --> 267. EKG showed no significant changes as compared to the previous EKG. - Trending troponins- will follow up - Cardiology consulted- will follow up recommendation - Started on Heparin gtt - Echo ordered- will follow up CAD s/p 3 stent placement - Continue Lipitor, Lopressoe 25 mg BID, Labetalol 20 mg IV PRN, DVT ppx: Heparin gtt GI ppx: Protonix PT/OT/SW Discharge Planning: application manager consulted, will follow up Gee Parnell MD Internal Medicine Resident, PGY-1 [facility]; [place], [place] 04/26/2021, 3:10 AM Attending Physician Statement I have discussed the care of Yoel Van with the resident team. I have examined the patient myself and taken ros and hpi , including pertinent history and exam findings, with the resident. I have reviewed the burnett elements of all parts of the encounter with the resident. I agree with the assessment, plan and orders as documented by the resident. Active Problems: NSTEMI (non-ST elevated myocardial infarction) (HCC) Altered mental status Resolved Problems: * No resolved hospital problems. * Fall with head injury and acute encephalopathy in the setting of prior ischemic as well as embolic stroke, CAD with coronary stents. NSTEMI vs stroke vs seizure CTH no bleed, MRI shows acute stroke left thalamus and internal capsule, neurology following patient started on Plavix Concern for discitis/osteomyelitis L5-S1-CRP elevated, will consult ID Trops elevated, cards consultd, ECHO pending, pt started on heparin infusion EEG completed Patient was reevaluated at 4 PM. More awake and alert but is still lethargic. Answers question correctly regarding his name and place following commands motor exam upper and lower extremities is 5 out of 5. No facial asymmetry noticed. MRI pending. It was reported to show card writer that MRI's were attempted earlier in the day from emergency department to which patient was combative with staff. 45 minutes was spent trying to get patient to cooperate even with medications was unsuccessful. MRI department is unable to scan patient today. Patient requires lower grade MRI magnet (due to cardiac stents) which is down until tomorrow morning. Neurosurgery updated and will see patient in the morning. Awaiting completion of MRIs to leave full recommendations. I spoke with his nurse, Virginia, who states that he was combative when MRIs were attempted earlier. Will see when MRI is completed. Please call with questions or concerns in the meantime. Attending Physician Statement I have discussed the care of Yoel Van with the resident team. I have examined the patient myself and taken ros and hpi , including pertinent history and exam findings, with the resident. I have reviewed the burnett elements of all parts of the encounter with the resident. I agree with the assessment, plan and orders by the resident. Active Problems: NSTEMI (non-ST elevated myocardial infarction) (HCC) Altered mental status Resolved Problems: * No resolved hospital problems. * Fall with head injury and acute encephalopathy in the setting of prior ischemic as well as embolic stroke, CAD with coronary stents. NSTEMI vs stroke vs seizure CTH no bleed, MRI pending Trops elevated, cards consultd, ECHO ordered, pt started on AC Full note to follow. Images from the original note were not included. Trauma Tertiary Survey Admit Date: 04/24/2021 Hospital day 0 Fall from <2 feet Past Medical History: Diagnosis Date Cerebral artery occlusion with cerebral infarction (HCC) Diabetes mellitus (HCC) Headache Hyperlipidemia Hypertension Scheduled Meds: Continuous Infusions: PRN Meds: Subjective: Patient has no complaint of pain. Patient is no longer experiencing any weakness or numbness to bilateral upper orlower extremities. No complaints of cervical, thoracic or lumbar tenderness. Objective: Patient Vitals for the past 8 hrs: BP Temp Temp src Pulse SpO2 04/25/21 0602 (!) 126/103 94 % 04/25/21 0501 95 % 04/25/21 0441 94 % 04/25/21 0133 (!) 178/96 93 95 % 04/25/21 0116 (!) 171/107 92 95 % 04/25/21 0101 (!) 189/105 93 97 % 04/25/21 0031 (!) 162/98 90 98 % 04/25/21 0018 97.9 F (36.6 C) Oral 04/24/21 2319 80 98 % 04/24/21 2246 (!) 164/90 83 (!) 88 % 04/24/21 2245 88 95 % No intake/output data recorded. No intake/output data recorded. Radiology: CT ABDOMEN PELVIS WO CONTRAST Additional Contrast? None Final Result 1. No acute abnormality of the abdomen or pelvis. 2. Sigmoid colon diverticulosis without evidence of diverticulitis. 3. Bifemoral arterial graft, not adequately evaluated in absence of CT angiographic study. 4. Severe bilateral iliac arterial atherosclerosis. 5. L5/S1 severe bilateral neural foraminal stenosis secondary to encroachment by disc osteophyte complex. XR CHEST PORTABLE Final Result Marginal inspiration, without evidence of acute cardiopulmonary disease XR SHOULDER LEFT (MIN 2 VIEWS) Final Result No evidence of an acute fracture involving the left shoulder CTA HEAD NECK W CONTRAST Final Result 1. Bilateral carotid bifurcation atherosclerotic plaque resulting approximately 40% left and 20% right stenosis of the proximal internal carotid arteries. Finding is compatible with 16-49% stenosis per sonographic NASCET index criteria. 2. Bilateral internal carotid artery cavernous segment scattered atherosclerotic calcification with up to approximately 25% bilateral arterial stenosis. Finding is compatible with 16-49% stenosis per sonographic NASCET index criteria. 3. Bilateral vertebral artery V4 segment atherosclerotic calcification resulting in focal high-grade stenosis of the left vertebral artery in approximately focal 50% stenosis of the right vertebral artery. 4. Left vertebral artery mid cervical segment approximately 70% stenosis secondary to encroachment by atherosclerotic plaque, as discussed above. RECOMMENDATIONS: For clinical suspicion of acute ischemia, recommend MRI brain with diffusion-weighted imaging for further evaluation CT CERVICAL SPINE WO CONTRAST Final Result 1. No acute abnormality of the cervical spine. 2. C5/C6 moderate, C6/C7 mild central canal stenosis secondary to encroachment by disc osteophyte complex. 3. C3/C4 mild bilateral, C5/C6 moderate bilateral, C6/C7 severe left and moderate right neural foraminal stenosis secondary to encroachment by disc osteophyte complex. CT HEAD WO CONTRAST Final Result No evidence for acute intracranial hemorrhage, territorial infarction or intracranial mass lesion. Chronic lacunar infarction right pacheco radiata. Mild chronic microangiopathic ischemic disease. Mild generalized volume loss. MRI CERVICAL SPINE WO CONTRAST (Results Pending) MRI BRAIN WO CONTRAST (Results Pending) PHYSICAL EXAM: GCS: 15 4 - Opens eyes on own 6 - Follows simple motor commands 5 - Alert and oriented Pupil size: Left 2 mm Right 2 mm Pupil reaction: Yes Wiggles fingers: Left Yes Right Yes Hand grasp: Left normal Right normal Wiggles toes: Left Yes Right Yes Plantar flexion: Left normal Right normal BP (!) 126/103 Pulse 93 Temp 97.9 F (36.6 C) (Oral) Resp 16 Ht 6' (1.829 m) Wt 223 lb (101.2 kg) SpO2 94% BMI 30.24 kg/m General appearance: alert, appears stated age and cooperative Head: Normocephalic, without obvious abnormality, atraumatic Eyes: conjunctivae/corneas clear. PERRL, EOM's intact. Neck: supple, symmetrical, trachea midline Back: symmetric, no curvature. ROM normal. No CVA tenderness. Lungs: clear to auscultation bilaterally Chest wall: no tenderness Heart: regular rate and rhythm Abdomen: soft, non-tender; bowel sounds normal; no masses, no organomegaly Extremities: extremities normal, atraumatic, no cyanosis or edema Pulses: 2+ and symmetric Skin: Skin color, texture, turgor normal. No rashes or lesions Neurologic:Equal strength bilateral upper and lower extremities Spine: Spine Tenderness ROM Cervical 0 /10 Normal Thoracic 0 /10 Normal Lumbar 0 /10 Normal Musculoskeletal Joint Tenderness Swelling ROM Right shoulder absent absent normal Left shoulder absent absent normal Right elbow absent absent normal Left elbow absent absent normal Right wrist absent absent normal Left wrist absent absent normal Right hand grasp absent absent normal Left hand grasp absent absent normal Right hip absent absent normal Left hip absent absent normal Right knee absent absent normal Left knee absent absent normal Right ankle absent absent normal Left ankle absent absent normal Right foot absent absent normal Left foot absent absent normal CONSULTS: Neurosurgery, IM PROCEDURES: none INJURIES: No acute traumatic injuries Patient Active Problem List Diagnosis Acute cerebrovascular accident (CVA) (HCC) Intraparenchymal hemorrhage of brain (HCC) Cerebrovascular accident (CVA) due to embolism of precerebral artery (HCC) Memory impairment Assessment/Plan: No indication for additional images to assess for traumatic injuries from trauma surgery standpoint. Neurosurgery: MRI pending. Cardiology for NSTEMI Trauma surgery will sign off at this time. documented in this encounter [facility] Work Phone: 05-02-2021 Hospital Discharge instructions Ana Chery MD - 05/02/2021 5:19 PM EDT Continuity of Care Form Patient Name: Yoel Van : 1955 Admit date: 04/24/2021 Discharge date: Code Status Order: Full Code Advance Directives: Admitting Physician: Ning Wallace MD PCP: Alec Pinzon MD Discharging Nurse: Discharging Hospital Unit/Room#: Discharging Unit Phone Number: Emergency Contact: Extended Emergency Contact Information Primary Emergency Contact: Uday *hipaa, Jessica Mobile Relation: Spouse Preferred language: [employer] Supervisor needed? No Past Surgical History: Past Surgical History: Procedure Laterality Date CARDIAC SURGERY ROTATOR CUFF REPAIR ROTATOR CUFF REPAIR Immunization History: Immunization History Administered Date(s) Administered Influenza, Quadv, IM, PF (6 mo and older Fluzone, Flulaval, Fluarix, and 3 yrs and older Afluria) 10/31/2019 Active Problems: Patient Active Problem List Diagnosis Code Acute cerebrovascular accident (CVA) ([facility]) I63.9 Intraparenchymal hemorrhage of brain ([facility]) I61.9 Acute ischemic stroke ([facility]) I63.9 Memory impairment R41.3 NSTEMI (non-ST elevated myocardial infarction) ([facility]) I21.4 Altered mental status R41.82 DM (diabetes mellitus), type 2 ([facility]) E11.9 Discitis of lumbosacral region M46.47 Hypokalemia E87.6 Hypomagnesemia E83.42 History of GI bleed Z87.19 Anticoagulated on heparin Z79.01 CAD, multiple vessel I25.10 Isolation/Infection: Isolation No Isolation Patient Infection Status None to display Nurse Assessment: Last Vital Signs: BP 128/77 Pulse 69 Temp 98.2 F (36.8 C) (Oral) Resp 16 Ht 6' (1.829 m) Wt 223 lb (101.2 kg) SpO2 94% BMI 30.24 kg/m Last documented pain score (0-10 scale): Pain Level: 0 Last Weight: Wt Readings from Last 1 Encounters: 04/24/21 223 lb (101.2 kg) Mental Status: {IP PT MENTAL STATUS:58141} IV Access: { SYDNEE IV ACCESS:294840265} Nursing Mobility/ADLs: Walking {P DME ADLs:936178667} Transfer {CHP DME ADLs:046103067} Bathing {CHP DME ADLs:133206047} Dressing {CHP DME ADLs:426120765} Toileting {CHP DME ADLs:174428567} Feeding {P DME ADLs:671842033} Electrical Continuity Inspector {P DME ADLs:711040389} Med Delivery { SYDNEE MED Delivery:412162402} Wound Care Documentation and Therapy: Elimination: Continence: Bowel: {YES / NO:} Bladder: {YES / NO:} Urinary Catheter: {Urinary Catheter:212467843} Colostomy/Ileostomy/Ileal Conduit: {YES / NO:} Date of Last BM: Intake/Output Summary (Last 24 hours) at 05/02/2021 1719 Last data filed at 05/02/2021 0736 Gross per 24 hour Intake Output 1600 ml Net -1600 ml I/O last 3 completed shifts: In: 44.4 [I.V.:44.4] Out: 2390 [Urine:2390] Safety Concerns: { SYDNEE Safety Concerns:024723692} Impairments/Disabilities: { SYDNEE Impairments/Disabilities:897786901 } Nutrition Therapy: Current Nutrition Therapy: { SYDNEE Diet List:011664046} Routes of Feeding: {[facility] Other Feedings:251350169} Liquids: {[facility] liquid thickness:89781} Daily Fluid Restriction: {[facility] DME Yes amt example:295082111} Last Modified Barium Swallow with Video (Video Swallowing Test): {Done Not Done Date:} Treatments at the Time of Hospital Discharge: Respiratory Treatments: Oxygen Therapy: {Therapy; copd oxygen:85382} Ventilator: { CC Vent List:049967938} Rehab Therapies: Physical Therapy and Occupational Therapy Weight Bearing Status/Restrictions: {[facility] Weight Bearin} Other Medical Equipment (for information only, NOT a DME order): {EQUIPMENT:694571888} Other Treatments: intermediate eval and treat Patient's personal belongings (please select all that are sent with patient): {[facility] Belongings:972223799} RN SIGNATURE: {Esignature:957457348} CASE MANAGEMENT/SOCIAL WORK SECTION Inpatient Status Date:04-25-2021 Readmission Risk Assessment Score: Readmission Risk Risk of Unplanned Readmission: 17 Discharging to Facility/ Agency Name: Address: Phone: Fax: Dialysis Facility (if applicable) Name: Address: Dialysis Schedule: Phone: Fax: Passenger Agent/Lanolin Plant Operator signature: {Esignature:019467112} PHYSICIAN SECTION Prognosis: Good Condition at Discharge: Stable Rehab Potential (if transferring to Rehab): {Prognosis:5336927210} Recommended Labs or Other Treatments After Discharge: Follow up with cardiology in 2 weeks. Any focal neurolofigical deficits has to be followed up with a repeat CT, follow up with neurology. Physician Certification: I certify the above information and transfer of Yoel Van is necessary for the continuing treatment of the diagnosis listed and that he requires Home Care for greater 30 days. Update Admission H&P: No change in H&P PHYSICIAN SIGNATURE: {Esignature:793172248} Ana Chery MD - 05/03/2021 1. Follow up cardiology in 2 weeks 2. Take medications as prescribed The following attachments cannot be sent through Care Everywhere.PCI (Percutaneous Coronary Intervention): Post-op (Yakut)documented in this encounter [facility] Phone: 10-31-2019 History of Present illness Narrative Physical Therapy Facility/Department: [address] Initial Assessment NAME: Yoel Van : 1955 Date of Service: 10/31/2019 [employer] LUE/LLE weakness, LKW 10/27/2019 HPI The patient is a 64 y.o. male who presents as a transfer from [place] for concern for hemorrhage in the basal ganglia. Per patient and his , last known well was 10/27/2019. Patient had ischemic stroke in the basal ganglia in 08/2019. Started on aspirin and Plavix and has been compliant with it. He continues to smoke, denies alcohol or drug use. Has residual minor left-sided weakness, however was able to ambulate without a walker afterwards, until Wednesday when he had more difficulty walking and increased weakness in his left arm. No falls, no visual symptoms. Has residual left leg numbness and neuropathy Discharge Recommendations: Further therapy recommended at discharge. Patient would benefit from continued therapy after discharge PT Equipment Recommendations Equipment Needed: No Assessment Body structures, Functions, Activity limitations: Decreased functional mobility ;Decreased endurance;Decreased coordination;Decreased strength;Decreased balance;Decreased safe awareness Assessment: Pt performed bed mobility with modified independence. Pt performed transfers with stand by assistance. Pt amb 150 ft with stand by assistance and RW. Pt amb 50 ft with contact guard assistance and no assistive device. Pt would benefit from continued skilled physical therapy upon discharge to improve strength, balance, and endurance. Prognosis: Good Decision Making: Medium Complexity PT Education: Goals;PT Role;General Safety;Plan of Care;Gait Training;Functional Mobility Training;Transfer Training REQUIRES PT FOLLOW UP: Yes Activity Tolerance Activity Tolerance: Patient Tolerated treatment well Patient Diagnosis(es): The encounter diagnosis was Intraparenchymal hemorrhage of brain (HCC). has a past medical history of Cerebral artery occlusion with cerebral infarction (HCC), Diabetes mellitus (HCC), Headache, Hyperlipidemia, and Hypertension. has a past surgical history that includes Rotator cuff repair; Rotator cuff repair; and Cardiac surgery. Restrictions Restrictions/Precautions Restrictions/Precautions: General Precautions, Fall Risk Required Braces or Orthoses?: No Position Activity Restriction Other position/activity restrictions: up with A, SBP goal <140 Vision/Hearing Vision: Within Functional Limits Vision Exceptions: Wears glasses at all times Hearing: Within functional limits Subjective General Patient assessed for rehabilitation services?: Yes Family / Caregiver Present: Yes( and friend ) Follows Commands: Within Functional Limits General Comment Comments: Pt is lying in bed upon arrival. Pt is agreeable to physical therapy evaluation. Pain Screening Patient Currently in Pain: Denies Vital Signs Patient Currently in Pain: Denies Orientation Orientation Overall Orientation Status: Within Functional Limits Social/Functional History Social/Functional History Lives With: Spouse Type of Home: Apartment Home Layout: One level Home Access: Level entry Bathroom Shower/Tub: Tub/Shower unit(Pt often takes baths, has had to assist pt out of tub, pt and spouse educated on benefits of shower chairs) Bathroom Toilet: Standard Bathroom Equipment: (Grab bars sould be installed very soon per spouse) Bathroom Accessibility: Accessible Home Equipment: Rolling walker, Wheelchair-manual(Has used RW until 1.5 weeks ago d/t CVA in August, then when pt had to use RW again pt knew something was wrong leading to this admission) Receives Help From: Family(OP PT and recently started OP OT to address CVA L deficits from August) ADL Assistance: Independent Homemaking Assistance: Needs assistance Homemaking Responsibilities: No( performs all) Ambulation Assistance: Independent(Recently stopped using RW, supervises) Transfer Assistance: Independent Active Forest Scientist: No Patient's Forest Scientist Info: Pt hasn't driven since CVA in August, perfoms all Mode of Transportation: Family Occupation: On disability Leisure & Hobbies: Dog, fishing Additional Comments: Spouse is home all the time and is able to assist him as needed. Cognition Cognition Overall Cognitive Status: [facility] Objective Observation/Palpation Posture: Good AROM RLE (degrees) RLE AROM: WFL AROM LLE (degrees) LLE AROM : WFL AROM RUE (degrees) RUE AROM : WFL AROM LUE (degrees) LUE AROM : Exceptions LUE General AROM: Shoulder flexion limited to 100 degrees Strength RLE Strength RLE: WF Comment: Grossly 4+/5 Strength LLE Strength LLE: WF Comment: Grossly 4+/5 Strength RUE Strength RUE: WF Comment: Grossly 4+/5 Strength LUE Strength LUE: [facility] Comment: Grossly 4-/5 Tone RLE RLE Tone: Normotonic Tone LLE LLE Tone: Normotonic Motor Control Gross Motor?: WF Coordination Rapid Alternating Movements: Normal Finger to Nose: Dysmetric(Dysmetria noted when using left hand; right hand normal) Sensation Overall Sensation Status: [facility] Bed mobility Supine to Sit: Modified independent(HOB elevated and use of rail) Comment: Pt left sitting in recliner at end of therapy session. Transfers Sit to Stand: Stand by assistance Stand to sit: Stand by assistance Ambulation Ambulation?: Yes More Ambulation?: Yes Ambulation 1 Surface: level tile Device: Rolling Walker Assistance: Stand by assistance Gait Deviations: Slow [place] Distance: 150 ft Ambulation 2 Surface - 2: level tile Device 2: No device Assistance 2: Contact guard assistance Quality of Gait 2: Discontinuity of step length Gait Deviations: Deviated path;Slow [place] Distance: 50 ft Stairs/Curb Stairs?: No Balance Posture: Good Sitting - Static: Good Sitting - Dynamic: Good Standing - Static: Good;- Standing - Dynamic: Fair;+ Comments: Standing dynamic good (-) with RW Plan Plan Times per week: 5 times per week Current Treatment Recommendations: Strengthening, Gait Training, Patient/Caregiver Education & Training, Stair training, Balance Training, Neuromuscular Re-education, Functional Mobility Training, Endurance Training, Transfer Training, Safety Education & Training Safety Devices Type of devices: All fall risk precautions in place, Call light within reach, Chair alarm in place, Gait belt, Nurse notified, Left in chair OutComes Score Balance Score: 14 (10/31/191218) Gait Score: 10 (10/31/191218) Tinetti Total Score: 24 (10/31/191218) AM-PAC Score AM-PAC Inpatient Mobility Raw Score : 20 (10/31/191218) AM-PAC Inpatient T-Scale Score : 47.67 (10/31/191218) Mobility Inpatient CMS 0-100% Score: 35.83 (10/31/191218) Mobility Inpatient CMS G-Code Modifier : CJ (10/31/191218) Goals Short term goals Time Frame for Short term goals: 10 visits Short term goal 1: Pt will be able to perform bed mobility independently. Short term goal 2: Pt will be able to perform transfers independently. Short term goal 3: Pt will be able to amb 200 ft independently without an assistive device. Short term goal 4: Pt will improve standing balance to good. Patient Goals Patient goals : To go home today Therapy Time Individual Concurrent Group Co-treatment Time In 1125 Time Out 1146 Minutes 21 Timed Code Treatment Minutes: 12 Minutes LUCY Leiva This treatment/evaluation completed by signing SPT. Signing PT agrees with treatment and documentation. Occupational Therapy Occupational Therapy Initial Assessment Date: 10/31/2019 Patient Name: Yoel Van : 1955 Date of Service: 10/31/2019 Discharge Recommendations: Further therapy recommended at discharge. Continue OP OT/PT services OT Equipment Recommendations Equipment Needed: No Assessment Prognosis: Good Decision Making: Medium Complexity Patient Education: Safety awareness, tripping hazards in home-good return No Skilled OT: At baseline function;Safe to return home REQUIRES OT FOLLOW UP: No Activity Tolerance Activity Tolerance: Patient Tolerated treatment well;Treatment limited secondary to medical complications (free text) Safety Devices Safety Devices in place: Yes Type of devices: All fall risk precautions in place;Call light within reach;Left in bed;Patient at risk for falls Restraints Initially in place: No Patient Diagnosis(es): The encounter diagnosis was Intraparenchymal hemorrhage of brain (HCC). has a past medical history of Cerebral artery occlusion with cerebral infarction (HCC), Diabetes mellitus (HCC), Headache, Hyperlipidemia, and Hypertension. has a past surgical history that includes Rotator cuff repair; Rotator cuff repair; and Cardiac surgery. Restrictions Restrictions/Precautions Restrictions/Precautions: General Precautions, Fall Risk Required Braces or Orthoses?: No Position Activity Restriction Other position/activity restrictions: up with A, SBP goal <140 Subjective General Patient assessed for rehabilitation services?: Yes Family / Caregiver Present: Yes() Diagnosis: Increase in L weakness, R parietal hemorrhage, hx. of CVA Patient Currently in Pain: Denies Pain Assessment Pain Assessment: 0-10 Pain Level: 0 Vital Signs Pulse: 80 Resp: 17 BP: 120/78 MAP (mmHg): 90 Level of Consciousness: Alert Patient Currently in Pain: Denies Oxygen Therapy SpO2: 92 % Social/Functional History Social/Functional History Lives With: Spouse Type of Home: Apartment Home Layout: One level Home Access: Level entry Bathroom Shower/Tub: Tub/Shower unit(Pt often takes baths, has had to assist pt out of tub, pt and spouse educated on benefits of shower chairs) Bathroom Toilet: Standard Bathroom Equipment: (Grab bars sould be installed very soon per spouse) Bathroom Accessibility: Accessible Home Equipment: Rolling walker, Wheelchair-manual(Has used RW until 1.5 weeks ago d/t CVA in August, then when pt had to use RW again pt knew something was wrong leading to this admission) Receives Help From: Family(OP PT and recently started OP OT to address CVA L deficits from August) ADL Assistance: Independent Homemaking Assistance: Needs assistance Homemaking Responsibilities: No( performs all) Ambulation Assistance: Independent(Recently stopped using RW, supervises) Transfer Assistance: Independent Active Forest Scientist: No Patient's Forest Scientist Info: Pt hasn't driven since CVA in August, perfoms all Mode of Transportation: Family Occupation: On disability Leisure & Hobbies: Dog, fishing Additional Comments: Spouse is home all the time and is able to assist him as needed. Objective Vision: Within Functional Limits Vision Exceptions: Wears glasses at all times Hearing: Within functional limits Orientation Overall Orientation Status: Within Functional Limits Observation/Palpation Posture: Good Balance Sitting Balance: Modified independent Standing Balance: Modified independent Standing Balance Time: 9 min Activity: Pt stood bedside, sinkside, at toilet, func mob around room Functional Mobility Functional - Mobility Device: Rolling Walker Activity: To/from bathroom Assist Level: Supervision Functional Mobility Comments: SBA with no AD, SUP with RW, no major safety concerns noted,, states pt looks better than baseline this date Toilet Transfers Toilet - Technique: Ambulating Equipment Used: Standard toilet Toilet Transfer: Supervision ADL Feeding: Modified independent Grooming: Modified independent UE Bathing: Modified independent LE Bathing: Supervision;Increased time to complete UE Dressing: Supervision;Increased time to complete LE Dressing: Stand by assistance;Increased time to complete Toileting: Stand by assistance;Increased time to complete Additional Comments: Pt transferred on/off toilet to simulate task, stood sinkside during oral care activity using BUE's to twist off difficult cap of mouthwash, pt doffed/donned a sock sitting on EOB Tone RUE RUE Tone: Normotonic Tone LUE LUE Tone: Normotonic Coordination Movements Are Fluid And Coordinated: No Coordination and Movement description: Gross motor impairments;Decreased speed;Left UE Quality of Movement Other Comment: Pt states being at baseline this Bed mobility Supine to Sit: Modified independent Sit to Supine: Modified independent Scooting: Modified independent Comment: Pt supine in bed upon arrival/exit this with PT entering room Transfers Sit to stand: Stand by assistance Stand to sit: Supervision Cognition Overall Cognitive Status: [facility] Cognition Comment: Slow to respond at times, likely pt's baseline, answering for pt often Sensation Overall Sensation Status: [facility] LUE AROM (degrees) LUE AROM : Exceptions L Shoulder Flexion 0-180: Limited to 90 degrees, baseline rotator cuff issues L Elbow Flexion 0-145: WF's L Elbow Extension 145-0: WF's RUE AROM (degrees) RUE AROM : WFL LUE Strength Gross LUE Strength: Exceptions to [facility] L Shoulder Flex: 3-/5(At baseline) L Elbow Flex: 4+/5 L Elbow Ext: 4/5(Weaker as a result of CVA per pt) L Hand General: 4+/5 RUE Strength Gross RUE Strength: WF R Hand General: 5/5 [facility] Inpatient Daily Activity Raw Score: 20 (10/31/19 1253) AM-PAC Inpatient ADL T-Scale Score : 42.03 (10/31/19 1253) ADL Inpatient CMS 0-100% Score: 38.32 (10/31/19 1253) ADL Inpatient CMS G-Code Modifier : CJ (10/31/191252) Goals Short term goals Time Frame for Short term goals: OT eval and d/c d/t pt at baseline Therapy Time Individual Concurrent Group Co-treatment Time In 1100 Time Out 1130 Minutes 30 Elba Simmons OTR/L documented in this encounter [facility] Phone: 10-31-2019 Hospital Discharge instructions Josselin Barbara, DO - 10/31/2019 Please do not take your aspirin or Plavix until after being seen in follow-up with Dr. Aguiar of neurology on 11/07/2019. Please have your CT head done next 10/30/2019. documented in this encounter [facility] Phone: Evaluation note Diagnosis Altered mental status, unspecified altered mental status type- Primary NSTEMI (non-ST elevated myocardial infarction) (HCC) Acute myocardial infarction, subendocardial infarction, episode of care unspecified DM (diabetes mellitus), type 2 (HCC) Type II or unspecified type diabetes mellitus without mention of complication, not stated as uncontrolled Discitis of lumbosacral region Other and unspecified disc disorder of lumbar region Acute ischemic stroke (HCC) Unspecified cerebral artery occlusion with cerebral infarction Hypokalemia Hypopotassemia Hypomagnesemia Disorders of magnesium metabolism History of GI bleed Personal history of other diseases of digestive system Anticoagulated on heparin Encounter for therapeutic drug monitoring CAD, multiple vessel Coronary atherosclerosis of unspecified type of vessel, [place] or graft S/P PTCA/FLORESITA to mid LCX (Dr Bojorquez) Postsurgical percutaneous transluminal coronary angioplasty status documented in this encounter [facility] Phone: evaluation note* Diagnosis Intraparenchymal hemorrhage of brain (HCC)- Primary Intracerebral hemorrhage Acute cerebrovascular accident (CVA) (HCC) documented in this encounter [facility] Phone: evaluation note* Diagnosis Intraparenchymal hemorrhage of brain (HCC) Intracerebral hemorrhage documented in this encounter [facility] Phone: evaluation note* Diagnosis Type 2 diabetes mellitus with diabetic polyneuropathy (CMS/HCC) documented in this encounter [facility] HealthcareEvaluation note* Diagnosis Type 2 diabetes mellitus with hyperglycemia, without long-term current use of insulin (CMS/HCC)- Primary Benign essential hypertension (CMS/HCC) Essential hypertension, benign Type 2 diabetes mellitus with diabetic polyneuropathy, without long-term current use of insulin (CMS/HCC) Thoracic aortic aneurysm without rupture, unspecified part (CMS/HCC) Insomnia, unspecified type CAD, multiple vessel (CMS/HCC) Gastroesophageal reflux disease without esophagitis Esophageal reflux Left kidney mass- Primary Unspecified disorder of kidney and ureter Type 2 diabetes mellitus with hyperglycemia, without long-term current use of insulin (CMS/HCC) Benign essential hypertension (CMS/HCC) Essential hypertension, benign Type 2 diabetes mellitus with hyperglycemia, without long-term current use of insulin (CMS/HCC)- Primary Benign essential hypertension (CMS/HCC) Essential hypertension, benign Type 2 diabetes mellitus with diabetic polyneuropathy, without long-term current use of insulin (CMS/HCC) Renal cell carcinoma of left kidney (CMS/HCC) Colon cancer screening Special screening for malignant neoplasms, colon Primary insomnia Persistent disorder of initiating or maintaining sleep CKD stage 3b, GFR 30-44 ml/min (CMS/HCC) PVD (peripheral vascular disease) (CMS/HCC) Unspecified peripheral vascular disease Type 2 diabetes mellitus with stage 3b chronic kidney disease, without long-term current use of insulin (HCC) (CMS/HCC) Hemiplegia and hemiparesis following cerebral infarction affecting right dominant side (I69.351) Type 2 diabetes mellitus with diabetic polyneuropathy (CMS/HCC) documented in this encounter [facility] HealthcareEvaluation note* Diagnosis Type 2 diabetes mellitus with hyperglycemia, without long-term current use of insulin (CMS/HCC)- Primary Benign essential hypertension (CMS/HCC) Essential hypertension, benign Type 2 diabetes mellitus with diabetic polyneuropathy, without long-term current use of insulin (CMS/HCC) Thoracic aortic aneurysm without rupture, unspecified part (CMS/HCC) Insomnia, unspecified type CAD, multiple vessel (CMS/HCC) Gastroesophageal reflux disease without esophagitis Esophageal reflux Left kidney mass- Primary Unspecified disorder of kidney and ureter Type 2 diabetes mellitus with hyperglycemia, without long-term current use of insulin (CMS/HCC) Benign essential hypertension (CMS/HCC) Essential hypertension, benign Type 2 diabetes mellitus with hyperglycemia, without long-term current use of insulin (CMS/HCC)- Primary Benign essential hypertension (CMS/HCC) Essential hypertension, benign Type 2 diabetes mellitus with diabetic polyneuropathy, without long-term current use of insulin (CMS/HCC) Renal cell carcinoma of left kidney (CMS/HCC) Colon cancer screening Special screening for malignant neoplasms, colon Primary insomnia Persistent disorder of initiating or maintaining sleep CKD stage 3b, GFR 30-44 ml/min (CMS/HCC) PVD (peripheral vascular disease) (CMS/HCC) Unspecified peripheral vascular disease Type 2 diabetes mellitus with stage 3b chronic kidney disease, without long-term current use of insulin (HCC) (CMS/HCC) Hemiplegia and hemiparesis following cerebral infarction affecting right dominant side (I69.351) Type 2 diabetes mellitus with hyperglycemia, without long-term current use of insulin (CMS/HCC)- Primary Adrenal insufficiency (CMS/HCC) Glucocorticoid deficiency Benign essential hypertension (CMS/HCC) Essential hypertension, benign Type 2 diabetes mellitus with diabetic polyneuropathy, without long-term current use of insulin (CMS/HCC) 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 (CMS/HCC) Primary insomnia Persistent disorder of initiating or maintaining sleep Gastroesophageal reflux disease without esophagitis Esophageal reflux documented in this encounter [facility] Summary Purpose Family History No Family History Records FoundNo Family History Records FoundNo Family History Records FoundNo Family History Records FoundNo Family History Records FoundNo Family History Records FoundNo Family History Records Found Advance Directives No Advanced Directives Records FoundDocuments on File Type Date Recorded Patient Account Services Manager Expl anation Advance Directives and Living Will Power of Floating Labor Gang Supervisor Latest Code Status on File Code Status Date Activated Date Inactivated Comments Full Code 10/31/2019 10:09 AM 10/31/2019 6:29 PM Documents on File Type Date Recorded Patient Account Services Manager Expl anation Advance Directives and Living Will Power of Floating Labor Gang Supervisor Latest Code Status on File Code Status Date Activated Date Inactivated Comments Full Code 10/31/2019 10:09 AM 10/31/2019 6:29 PM Documents on File Type Date Recorded Patient Account Services Manager Expl anation ACP-Advance Directive ACP-Power of Floating Labor Gang Supervisor Latest Code Status on File Code Status Date Activated Date Inactivated Comments Full Code 05/02/2021 6:05 PM Full Code 04/28/2021 10:45 AM 05/02/2021 6:05 PM Full Code 04/25/2021 7:46 PM 04/28/2021 10:45 AM Full Code 10/31/2019 10:09 AM 10/31/2019 6:29 PM Latest Code Status on File Code Status Date Activated Date Inactivated Comments Full Code 10/31/2019 10:09 AM Reason for Referral Status Reason Specialty Diagnoses / Procedures Referre d By Contact Referred To Contact Closed Radiology Diagnoses Cerebrovascular accident (CVA), unspecified mechanism (HCC) Procedures CT HEAD WO CONTRAST HC CT BRAIN W/[place] [address] [place] [id number] [facility] [id number] [place] [id number] Status Reason Specialty Diagnoses / Procedures Referre d By Contact Referred To Contact Closed Diagnoses Cerebrovascular accident (CVA) due to embolism of precerebral artery (HCC) Memory impairment Procedures [place] [address] [place] [id number] Status Reason Specialty Diagnoses / Procedures Referre d By Contact Referred To Contact Closed Cardiology Diagnoses 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) Cerebrovascular accident (CVA) due to embolism of precerebral artery (HCC) Procedures ECHO Complete 2D W Doppler W Color Andreia Chiang MD [address] [place] [id number] Status Reason Specialty Diagnoses / Procedures Referre d By Contact Referred To Contact Open Radiology Diagnoses Intraparenchymal hemorrhage of brain (HCC) Procedures CT HEAD WO CONTRAST [place] [address] [place] [id number] Status Reason Specialty Diagnoses / Procedures Referre d By Contact Referred To Contact Closed Radiology Diagnoses Intraparenchymal hemorrhage of brain (HCC) Procedures CT HEAD WO CONTRAST CT HEAD WO CONTRAST Barbara Perea DO [address] [place] [address] Assessments Diagnosis Cerebrovascular accident (CVA), unspecified mechanism (HCC) Diagnosis Cerebrovascular accident (CVA) due to embolism of precerebral artery (HCC) Memory impairment Memory loss Diagnosis 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) 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 Swelling, mass, or lump in head and neck Diabetes mellitus due to underlying condition with diabetic neuropathy, unspecified whether intermission coordinator insulin use (HCC) Cerebrovascular accident (CVA) due to embolism of precerebral artery (HCC) Memory impairment Memory loss Diagnosis 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) Cerebrovascular accident (CVA) due to embolism of precerebral artery (HCC) History of Present Illness * Yoselyn Pedro - 05/08/2020 10:45 AM EDT 22g IV inserted R Jose kelly by show card writer, used for bubble study documented in this encounter Additional Source Comments (unrecognized sect ion and content) No Status Records FoundNo Status Records FoundNo Status Records FoundNo Status Records FoundNo Status Records FoundNo Status Records FoundNo Status Records Found INFORMATION SOURCE (unrecogn ized section and content) DATE CREATED AUTHOR 04/27/2018 [place] [facility] DATE CREATED AUTHOR AUTHOR'S ORGANIZ ATION 05/16/2020 [facility] DATE CREATED AUTHOR AUTHOR'S ORGANIZ ATION 05/11/2021 [facility] DATE CREATED AUTHOR AUTHOR'S ORGANIZ ATION 01/20/2023 [facility] DATE CREATED AUTHOR AUTHOR'S ORGANIZ ATION 10/18/2023 [facility] DATE CREATED AUTHOR AUTHOR'S ORGANIZ ATION 09/05/2024 [facility] DATE CREATED AUTHOR AUTHOR'S ORGANIZ ATION 09/09/2024 [facility] EPIC Reason for Visit (unrecogniz ed section and content) Status Reason Specialty Diagnoses / Procedures Referre d By Contact Referred To Contact Closed Radiology Diagnoses Cerebrovascular accident (CVA), unspecified mechanism (HCC) Procedures CT HEAD WO CONTRAST HC CT BRAIN W/O CONTRAST Sabrina Aguiar Sa, MD [address] [address] [facility] [address] [place] [address] Status Reason Specialty Diagnoses / Procedures Referre d By Contact Referred To Contact Closed Diagnoses Cerebrovascular accident (CVA) due to embolism of precerebral artery (HCC) Memory impairment Procedures EEG awake and asleep Andreia Chiang MD [address] [id number] Status Reason Specialty Diagnoses / Procedures Referre d By Contact Referred To Contact Closed Cardiology Diagnoses 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) Cerebrovascular accident (CVA) due to embolism of precerebral artery (HCC) Procedures ECHO Complete 2D W Doppler W Color Andreia Chiang MD [address] [place] [id number] Reason Comments Altered Mental Status Status Reason Specialty Diagnoses / Procedures Referre d By Contact Referred To Contact [facility] Reason Comments Cerebrovascular Accident tx from [facility] Status Reason Specialty Diagnoses / Procedures Re ferred By Contact Referred To Contact Diagnoses Acute cerebrovascular accident (CVA) (HCC) Bennie Bosch MD [address] [facility] [address] [address] [facility] Status Reason Specialty Diagnoses / Procedures Referre d By Contact Referred To Contact Closed Radiology Diagnoses Intraparenchymal hemorrhage of brain (HCC) Procedures CT HEAD WO CONTRAST CT HEAD WO CONTRAST Barbara Perea DO [address] [place] [address] Reason Onset Date Comments Med Refill 07/26/2024 Reason Onset Date Comments Med Refill 08/22/2024 Reason Comments Follow-up 6 m Ordered Prescriptions (unrec ognized section and content) Prescription Sig Dispensed Refills Start Date End Da te pantoprazole (PROTONIX) 40 MG tablet Take 1 tablet by mouth nightly 30 tablet 3 05/03/2021 clopidogrel (PLAVIX) 75 MG tablet Take 1 tablet by mouth daily 90 tablet 5 05/03/2021 carvedilol (COREG) 12.5 MG tablet Take 1 tablet by mouth 2 times daily (with meals) 60 tablet 3 05/03/2021 aspirin 81 MG chewable tablet Take 1 tablet by mouth daily 30 tablet 3 05/03/2021 Scheduled Active and Recently Administ ered Medications (unrecognized section and content) Medication Order 05/01/2021 05/02/2021 05/03/2021 aspirin chewable tablet 81 mg 81 mg, Oral, DAILY, First dose on Wed04/30/21 at 1115 0932 (Given - Provider: Deanne Garcia RN) 0743 (Given - Provider: Dasia Solis RN) 0900 (Due) atorvastatin (LIPITOR) tablet 40 mg 40 mg, Oral, DAILY, First dose on Wed04/25/21 at 1315 0938 (Given - Provider: Deanne Garcia RN) 2125 (Given - Provider: Alexandr Nicholson RN) 0900 (Due) carvedilol (COREG) tablet 12.5 mg 12.5 mg, Oral, 2 TIMES DAILY WITH MEALS, First dose on Wed04/30/21 at 0800, Administer with food to minimize the risk of orthostatic hypotension 0931 (Given - Provider: Deanne Garcia RN)1616 (Given - Provider: Deanne Garcia RN) 0743 (Given - Provider: Dasia Solis RN)1814 (Given - Provider: Dasia Solis RN) 0800 (Due)1700 (Due) clopidogrel (PLAVIX) tablet 75 mg 75 mg, Oral, DAILY, First dose on Wed05/01/21 at 1345 1441 (Given - Provider: Deanne Garcia RN) 0742 (Held - Provider: Dasia Solis RN - Reason: Other) 0900 (Due) gabapentin (NEURONTIN) tablet 600 mg 600 mg, Oral, 2 TIMES DAILY, First dose on Wed04/25/21 at 1315 0931 (Given - Provider: Deanne Garcia RN)2042 (Given - Provider: Nesha Victor RN) 0743 (Given - Provider: Dasia Solis RN)2124 (Given - Provider: Alexandr Nicholson, RN) 0900 (Due)2100 (Due) insulin lispro (HUMALOG) injection vial 0-12 Units 0-12 Units, Subcutaneous, 3 TIMES DAILY WITH MEALS, First dose on 04/27/21 at 1700, Medium Dose Corrective Algorithm Glucose: Dose: If <139 No Insulin 140-199 2 Units 200-249 4 Units 250-299 6 Units 300-349 8 Units 350-400 10 Units Above 400 12 Units 0932 (Given - Provider: Deanne Garcia RN)1221 (Given - Provider: Deanne Garcia, RN)1616 (Given - Provider: Deanne Garcia RN) 0754 (Not Given - Provider: Dsaia Solis RN - Reason: Patient/family refused - Comment: 163 npo)1234 (Not Given - Provider: Dasia Solis RN - Reason: Patient/family refused - Comment: NPO)1745 (Not Given - Provider: Dasia Solis RN - Reason: Patient/family refused - Comment: 152 has not eaten) 0800 (Due)1200 (Due)1700 (Due) insulin lispro (HUMALOG) injection vial 0-6 Units 0-6 Units, Subcutaneous, NIGHTLY, First dose on 04/27/21 at 2100, If continuous tube feedings/TPN/NPO, give correction dose based on result, no reduction in dose. If eating or bolus tube feeding: Medium Dose Corrective Algorithm Glucose: Dose: If <139 No Insulin 140-199 1 Unit 200-249 2 Units 250-299 3 Units 300-349 4 Units 350-400 5 Units Above 400 6 Units 2042 (Given - Provider: Nesha Victor RN) 2124 (Given - Provider: Alexandr Nicholson, RN) 2100 (Due) lisinopril (PRINIVIL;ZESTRIL) tablet 40 mg 40 mg, Oral, DAILY, First dose on Wed04/29/21 at 0900 0936 (Not Given - Provider: Deanne Garcia RN - Reason: Other - Comment: per attending team) 0743 (Given - Provider: Dasia Solis RN) 0900 (Due) magnesium oxide (MAG-OX) tablet 400 mg 400 mg, Oral, ONCE, On Wed05/03/21 at 0800, For 1 dose 0800 (Due) magnesium sulfate 2000 mg in 50 mL IVPB premix (COMPLETED) 2,000 mg, Intravenous, at 25 mL/hr, Administer over 2 Hours, ONCE, On Wed05/02/21 at 0800, For 1 dose, Recommended infusion rate not to exceed 1,000 mg (milligrams) per hour. 0755 (New Bag - Provider: Dasia Solis RN)0956 (Stopped - Provider: Dasia Solis RN) nicotine (NICODERM CQ) 7 MG/24HR 1 patch 1 patch, Transdermal, Administer over 24 Hours, DAILY, First dose on Wed04/26/21 at 1600, Apply new patch to nonhairy, clean, dry skin on the upper body or upper outer arm. Rotate patch sites. Notify pharmacy if patient or provider prefers patch to be removed at bedtime and replaced in the morning. Hazardous Medication -- Refer to facility policy for handling and disposal. 0918 (Patch Removed - Provider: Deanne Garcia RN)0931 (Patch Applied - Provider: Deanne Garcia RN) 0743 (Patch Removed - Provider: Dasia Solis RN)0744 (Patch Applied - Provider: Dasia Solis RN) 0744 (Due: Patch Removed - Provider: Dasia Solis RN)0900 (Due) pantoprazole (PROTONIX) tablet 40 mg 40 mg, Oral, NIGHTLY, First dose on Wed04/25/21 at 2245, Do not crush or break. 2041 (Given - Provider: Nesha Victor RN) 2124 (Given - Provider: Alexandr Nicholson RN) 2100 (Due) sodium chloride flush 0.9 % injection 5-40 mL 5-40 mL, Intravenous, EVERY 12 HOURS SCHEDULED (2 times per day), First dose on Wed04/25/21 at 2100, For Line Patency: Peripheral IV = 5 mL; Midline or Central Line = 10 mL/lumen. If following IV push medication, administer flush at same rate as the IV push. Flush volume is determined by type of infusion therapy being given. For non-viscous solutions use: Peripheral IV = 5 mL Midline or Central Line = 10 mL/lumen For viscous solutions (i.e. blood components, parenteral nutrition, contrast media, or after obtaining blood sample) use: Peripheral IV = 10 mL Midline or Central Line = 20 mL/lumen 0937 (Not Given - Provider: Deanne Garcia RN - Reason: Other - Comment: duplicate)2043 (Given - Provider: Nesha Victor RN) 0744 (Not Given - Provider: Dasia Solis RN - Reason: IV Fluid Infusing)2144 (Given - Provider: Alexandr Nicholson RN) 0900 (Due)2100 (Due) sodium chloride flush 0.9 % injection 5-40 mL 5-40 mL, Intravenous, EVERY 12 HOURS SCHEDULED (2 times per day), First dose on Wed04/28/21 at 1115, For Line Patency: Peripheral IV = 5 mL; Midline or Central Line = 10 mL/lumen. If following IV push medication, administer flush at same rate as the IV push. Flush volume is determined by type of infusion therapy being given. For non-viscous solutions use: Peripheral IV = 5 mL Midline or Central Line = 10 mL/lumen For viscous solutions (i.e. blood components, parenteral nutrition, contrast media, or after obtaining blood sample) use: Peripheral IV = 10 mL Midline or Central Line = 20 mL/lumen, Recovery(Cath) 0932 (Given - Provider: Deanne Garcia RN)2041 (Given - Provider: Nesha Victor RN) 0743 (Given - Provider: Dasia Solis RN)2125 (Given - Provider: Alexandr Nicholson RN) 0900 (Due)2100 (Due) sodium chloride flush 0.9 % injection 5-40 mL 5-40 mL, Intravenous, EVERY 12 HOURS SCHEDULED (2 times per day), First dose on Wed05/02/21 at 2100, For Line Patency: Peripheral IV = 5 mL; Midline or Central Line = 10 mL/lumen. If following IV push medication, administer flush at same rate as the IV push. Flush volume is determined by type of infusion therapy being given. For non-viscous solutions use: Peripheral IV = 5 mL Midline or Central Line = 10 mL/lumen For viscous solutions (i.e. blood components, parenteral nutrition, contrast media, or after obtaining blood sample) use: Peripheral IV = 10 mL Midline or Central Line = 20 mL/lumen, Recovery(Cath) 2124 (Given - Provider: Alexandr Nicholson RN) 09 (Due)2099 (Due) traZODone (DESYREL) tablet 200 mg 200 mg, Oral, NIGHTLY, First dose on Wed04/25/21 at 2100 2041 (Given - Provider: Nesha Victor RN) 2124 (Given - Provider: Alexandr Nicholson RN) 2099 (Due) Continuous Medication Order 05/01/2021 05/02/2021 05/03/2021 heparin 25,000 units in dextrose 5% 250 mL (premix) infusion 5-30 Units/kg/hr 101.2 kg (5.06-30.36 mL/hr, rounded to 5.1-30.4 mL/hr), Intravenous, at 5.1-30.4 mL/hr, CONTINUOUS, Starting on Wed04/25/21 at 1315, LOW DOSE HEPARIN PROTOCOL Initial dose is 9.88 units/kg/hr. Recorded patient weight: 101.2 kg. 60 units/kg IV x 1 (max 4000 units), then 12 units/kg/hr (max initial rate 1000 units/hr) Adjust infusion rate based on aPTT results (aPTT target range 1.5-2) aPTT < 30 Heparin Full re-bolus Increase infusion by 4 units/kg/hr aPTT 30-49 Heparin Half re-bolus Increase infusion by 2 units/kg/hr aPTT 50-70 No bolus No change aPTT 71-85 No bolus Decrease infusion by 2 units/kg/hr aPTT > 85 Hold heparin for 60 min Decrease infusion by 3 units/kg/hr aPTT > 100 Hold heparin for 60 min Decrease infusion by 4 units/kg/hr Check aPTT 6 hours after initiation and 6 hours after every dose change. When aPTT is within target range for two consecutive times, check aPTT once daily. 743 (New Bag - Provider: Nesha Victor RN)2033 (Rate/Dose Verify - Provider: Nesha Victor RN) 0310 (New Bag - Provider: Nesha Victor RN) PRN Medication Order 05/01/2021 05/02/2021 05/03/2021 0.9 % sodium chloride infusion 25 mL, Intravenous, at 100 mL/hr, PRN, If patient receiving piggyback infusions without ordered maintenance IV fluids or with frequent/long duration piggyback infusions, Starting on Wed04/25/21 at 1946, Administer at the same rate as the piggyback being infused. 0.9 % sodium chloride infusion 25 mL, Intravenous, at 100 mL/hr, PRN, If patient receiving piggyback infusions without ordered maintenance IV fluids or with frequent/long duration piggyback infusions, Starting on Wed04/28/21 at 1045, Administer at the same rate as the piggyback being infused., Recovery(Cath) 0.9 % sodium chloride infusion 25 mL, Intravenous, at 100 mL/hr, PRN, If patient receiving piggyback infusions without ordered maintenance IV fluids or with frequent/long duration piggyback infusions, Starting on Wed05/02/21 at 1805, Administer at the same rate as the piggyback being infused., Recovery(Cath) acetaminophen (TYLENOL) suppository 650 mg 650 mg, Rectal, EVERY 6 HOURS PRN, Pain Mild (1-3), Fever, For temp greater than 100.4 F (38 C), Starting on Wed04/25/21 at 1946, Administer if oral route cannot be used. acetaminophen (TYLENOL) tablet 650 mg 650 mg, Oral, EVERY 4 HOURS PRN, Pain Mild (1-3), Fever, Fever >100.5 F (38 C), Starting on Wed05/02/21 at 1805, Maximum dose of acetaminophen is 4000 mg from all sources in 24 hours., Recovery(Cath) dextrose 5 % solution 100 mL/hr, Intravenous, at 100 mL/hr, PRN, Low blood sugar, Starting on Wed04/27/21 at 1341, Start infusion following administration of dextrose 50% or glucagon. dextrose 50 % IV solution 12.5 g, Intravenous, PRN, Low blood sugar, Blood glucose less than 70 mg/dL and patient NOT ALERT or NPO., Starting on Wed04/27/21 at 1341, If patient does not respond within 5 minutes, repeat dose x1. Start D5W at 100 mL/hour until ordering provider can be reached. Repeat blood glucose in 15 minutes. If blood glucose is less than 70 mg/dL, repeat treatment and recheck blood glucose in 15 minutes x2. If using Glucostabilizer, dose as instructed per system. glucagon (rDNA) injection 1 mg 1 mg, Intramuscular, PRN, Low blood sugar, Blood glucose less than 70 mg/dL and patient NOT ALERT or NPO and does not have IV access., Starting on Wed04/27/21 at 1341, After administration, attempt intravenous access and start D5W at 100 mL/hr. Repeat blood glucose in 15 minutes x2 and notify provider. glucose (GLUTOSE) 40 % oral gel 15 g 15 g, Oral, PRN, Low blood sugar, Starting on Wed04/27/21 at 1341, If blood glucose less than 50 mg/dL and patient ALERT and TOLERATING PO, give 2 tubes glucose gel. If blood glucose less than 70 mg/dL and patient ALERT and TOLERATING PO, give 1 tube glucose gel. Repeat blood glucose in 15 minutes. If blood glucose is less than 70 mg/dL, repeat treatment and recheck blood glucose in 15 minutes x2 and notify provider. heparin (porcine) injection 2,000 Units 2,000 Units, Intravenous, PRN, Other, heparin dosing algorithm, Starting on Wed04/25/21 at 1251, Half dose re-bolus based on pharmacy algorithm heparin (porcine) injection 4,000 Units 4,000 Units, Intravenous, PRN, Other, heparin dosing algorithm, Starting on Wed04/25/21 at 1251, Full dose re-bolus based on pharmacy algorithm labetalol (NORMODYNE;TRANDATE) injection 20 mg 20 mg, Intravenous, EVERY 4 HOURS PRN, High Blood Pressure, Starting on Wed04/25/21 at 1946, Give for systolic blood pressure greater than 160 nitroGLYCERIN (NITROSTAT) SL tablet 0.4 mg 0.4 mg, Sublingual, EVERY 5 MIN PRN, Chest pain, Starting on Wed04/25/21 at 1257, Place 1 tablet under tongue upon chest pain, wait 5 minutes and may repeat up to 3 doses in 15 minutes. Do not crush or break. ondansetron (ZOFRAN) injection 4 mg(Linked Group 1) 4 mg, Intravenous, EVERY 6 HOURS PRN, Nausea, Vomiting, Starting on Wed04/25/21 at 1946, Administer if oral route cannot be used. ondansetron (ZOFRAN-ODT) disintegrating tablet 4 mg(Linked Group 1) 4 mg, Oral, EVERY 8 HOURS PRN, Nausea, Vomiting, Starting on Wed04/25/21 at 1946 polyethylene glycol (GLYCOLAX) packet 17 g 17 g, Oral, DAILY PRN, Constipation, Starting on Wed04/25/21 at 1946, First line therapy for constipation potassium bicarb-citric acid (EFFER-K) effervescent tablet 40 mEq(Linked Group 2) 40 mEq, Oral, PRN, Per Potassium Replacement Protocol, Starting on Wed04/28/21 at 1000, Administer as alternative if patient unable to tolerate oral tablet. K Lab Replacement Action 3.1 to 3.9 40 mEq ORAL x 1 Under 3.1 Refer to IV replacement protocol Recheck K level in AM. Protocol not for use in patients with CrCl less than 30 mL/min. Do not chew or crush. Dissolve flavored tablets completely in 3 to 4 ounces of cold water; unflavored tablets may be dissolved in 3 to 4 ounces of cold juice. Patient to sip slowly over a 5 to 10 minute period. May further dilute if GI adverse effects occur. potassium chloride (KLOR-CON M) extended release tablet 40 mEq(Linked Group 2) 40 mEq, Oral, PRN, Potassium Replacement, Starting on Wed04/28/21 at 1000, May give alternative linked oral order (ordered as effervescent, packet, or liquid solution) if patient unable to tolerate tablet. K Lab Replacement Action 3.1 to 3.9 40 mEq ORAL x 1 Under 3.1 Refer to IV replacement protocol Recheck K level in AM. Protocol not for use in patients with CrCl less than 30 mL/min. potassium chloride 10 mEq/100 mL IVPB (Peripheral Line)(Linked Group 2) 10 mEq, Intravenous, at 100 mL/hr, PRN, Potassium Replacement, Starting on Wed04/28/21 at 1000, K Lab Replacement Action 2.7 to 3.0 10 mEq IVPB x 6 doses (60 mEq Total) Under 2.7 CALL PROVIDER and administer 10 mEq IVPB x 6 doses (60 mEq Total) Infuse at 10 mEq/hr. Repeat Potassium lab 1 hour after final administration. Protocol not for use in patients with CrCl less than 30 mL/min. sodium chloride flush 0.9 % injection 5-40 mL 5-40 mL, Intravenous, PRN, Line Care, After every IV line use, Starting on Wed04/25/21 at 1946, For Line Patency: Peripheral IV = 5 mL; Midline or Central Line = 10 mL/lumen. If following IV push medication, administer flush at same rate as the IV push. Flush volume is determined by type of infusion therapy being given. For non-viscous solutions use: Peripheral IV = 5 mL Midline or Central Line = 10 mL/lumen For viscous solutions (i.e. blood components, parenteral nutrition, contrast media, or after obtaining blood sample) use: Peripheral IV = 10 mL Midline or Central Line = 20 mL/lumen sodium chloride flush 0.9 % injection 5-40 mL 5-40 mL, Intravenous, PRN, Line Care, Starting on Wed04/28/21 at 1045, For Line Patency: Peripheral IV = 5 mL; Midline or Central Line = 10 mL/lumen. If following IV push medication, administer flush at same rate as the IV push. Flush volume is determined by type of infusion therapy being given. For non-viscous solutions use: Peripheral IV = 5 mL Midline or Central Line = 10 mL/lumen For viscous solutions (i.e. blood components, parenteral nutrition, contrast media, or after obtaining blood sample) use: Peripheral IV = 10 mL Midline or Central Line = 20 mL/lumen, Recovery(Cath) sodium chloride flush 0.9 % injection 5-40 mL 5-40 mL, Intravenous, PRN, Line Care, Starting on Wed05/02/21 at 1805, For Line Patency: Peripheral IV = 5 mL; Midline or Central Line = 10 mL/lumen. If following IV push medication, administer flush at same rate as the IV push. Flush volume is determined by type of infusion therapy being given. For non-viscous solutions use: Peripheral IV = 5 mL Midline or Central Line = 10 mL/lumen For viscous solutions (i.e. blood components, parenteral nutrition, contrast media, or after obtaining blood sample) use: Peripheral IV = 10 mL Midline or Central Line = 20 mL/lumen, Recovery(Cath) Linked Groups Order Group 1: ondansetron (ZOFRAN-ODT) disintegrating tablet 4 mgJump to med 4 mg, Oral, EVERY 8 HOURS PRN, Nausea, Vomiting, Starting on Wed04/25/21 at 1946 Or ondansetron (ZOFRAN) injection 4 mgJump to med 4 mg, Intravenous, EVERY 6 HOURS PRN, Nausea, Vomiting, Starting on Wed04/25/21 at 1946
Administer if oral route cannot be used.
Group 2: potassium chloride (KLOR-CON M) extended release tablet 40 mEqJump to med 40 mEq, Oral, PRN, Potassium Replacement, Starting on Wed04/28/21 at 1000
May give alternative linked oral order (ordered as effervescent, packet, or liquid solution) if patient unable to tolerate tablet. K Lab Repla cemen t Action 3.1 to 3.9 40 mEq ORAL x 1 Under 3.1 Refer to IV replacement protocol Recheck K level in AM. Protocol not for use in patients with CrCl less than 30 mL/min.
Or potassium bicarb-citric acid (EFFER-K) effervescent tablet 40 mEqJump to med 40 mEq, Oral, PRN, Per Potassium Replacement Protocol, Starting on Wed04/28/21 at 1000
Administer as alternative if patient unable to tolerate oral tablet. K Lab R eplac ement Action 3.1 to 3.9 40 mEq ORAL x 1 Under 3.1 Refer to IV replacement protocol Recheck K level in AM. Protocol not for use in patients with CrCl less than 30 mL/min. Do not chew or crush. Dissolve flavored tablets completely in 3 to 4 ounces of cold water; unflavored tablets may be dissolved in 3 to 4 ounces of cold juice. Patient to sip slowly over a 5 to 10 minute period. May further dilute if GI adverse effects occur.
Or potassium chloride 10 mEq/100 mL IVPB (Peripheral Line)Jump to med 10 mEq, Intravenous, at 100 mL/hr, PRN, Potassium Replacement, Starting on Wed04/28/21 at 1000
K Lab Replacement Action 2.7 to 3.0 10 mEq IVPB x 6 doses (60 mEq Total) Under 2.7 CALL PROVIDER and administer 10 mEq IVPB x 6 doses (60 mEq Total) Infuse at 10 mEq/hr. Repeat Potassium lab 1 hour after final administration. Protocol not for use in patients with CrCl less than 30 mL/min.
Care Teams (unrecognized sec tion and content) Yarn Polishing Machine Operator Relationship Specialty Start Date End Date Alec Pinzon MD [address] [place] [id number] PCP - General Family Medicine 11/17/23 Yarn Polishing Machine Operator Relationship Specialty Start Date End Date Alec Pinzon MD [address] [place] [id number] PCP - General Family Medicine 11/17/23 Yarn Polishing Machine Operator Relationship Specialty Start Date End Date Alec Pinzon MD [address] [place] [id number] PCP - [facility] 11/17/23 Yarn Polishing Machine Operator Relationship Specialty Start Date End Date Alec Pinzon MD [address] [place] [phone] PCP - [facility] 11/17/23 FOR RECORDS PERTAINING TO PATIENTS WHO ARE OR HAVE BEEN ENROLLED IN A CHEMICAL DEPENDENCY/SUBSTANCEABUSE PROGRAM, SOME INFORMATION MAY BE OMITTED. This clinical summary was aggregated from multiple sources. Caution should be exercised in using it in the provision of clinical care. This summary normalizes information from multiple sources, and as a consequence, information in this document may materially change the coding, format and clinical context of patient data. In addition, data may be omitted in some cases. CLINICAL DECISIONS SHOULD BE BASED ON THE PRIMARY CLINICAL RECORDS. [facility] [email or web address] [facility]. provides no warranty or guarantee of the accuracy or completeness of information in this document.
[2024-09-16 10:44] LABS: Basophils Percent Auto 0.3 % (0.2-2.0); Eosinophils Absolute Auto 0.1 10^3/uL (0.0-0.7); Eosinophils Percent Auto 0.3 % (0.9-7.0); Hemoglobin 12.6 g/dL (14.0-18.0); Immature Granulocytes Abs Auto 0.05 10^3/uL (0.00-0.03); Immature Granulocytes Pct Auto 0.3 % (0.0-0.5); Lymphocytes Absolute Auto 1.3 10^3/uL (1.2-3.8); Lymphocytes Percent Auto 9.1 % (20.5-60.0); Mean Corpuscular HGB Conc 33.2 g/dL (29.9-35.2); Mean Corpuscular Hemoglobin 30.6 pg (25.9-34.0); Mean Corpuscular Volume 92.2 fL (80.0-94.0); Mean Platelet Volume 9.8 fL (9.5-13.5); Monocytes Absolute Auto 0.9 10^3/uL (0.3-0.8); Monocytes Percent Auto 6.1 % (1.7-12.0); Neutrophils Absolute Auto 12.3 10^3/uL (1.4-6.5); Neutrophils Percent Auto 83.9 % (43.0-75.0); Platelet Count 251 10^3/uL (150-450); Red Blood Count 4.12 10^6/uL (4.70-6.10); Red Cell Distribution Width 14.3 % (11.0-15.0); White Blood Count 14.7 10^3/uL (4.0-11.0)
[2024-09-16 10:55] LABS: INR 1.07; Prothrombin Time 11.3 sec (9.0-11.6)
[2024-09-16] MEDS: 0.9 % SODIUM CHLORIDE 1,000 ML 1000 ML IV (10:57)
[2024-09-16 10:59] LABS: Alanine Aminotransferase 17 U/L (16-63); Albumin Globulin Ratio 0.7; Albumin Level 2.8 g/dL (3.4-5.0); Alkaline Phosphatase 89 U/L (46-116); Anion Gap 12.8; Aspartate Amino Transferase 7 U/L (15-37); BUN Creatinine Ratio 12.7; Calcium 8.6 mg/dL (8.5-10.1); Carbon Dioxide 24.3 mmol/L (21.0-32.0); Chloride 107 mmol/L (98-107); Estimated GFR (African America 32 (>=60 mL/min/1.73m^2); Estimated GFR (Non-African Ame 27 (>=60 mL/min/1.73m^2); Globulin 3.8 g/dL; Glucose 196 mg/dL (74-106); Potassium 4.1 mmol/L (3.5-5.1); Sodium 140 mmol/L (136-145); Total Protein 6.6 g/dL (6.4-8.2); Troponin I High Sensitivity 20.9 pg/mL (4.0-76.1)
[2024-09-16 11:15] LABS: Lactate/Lactic Acid 2.2 mmol/L (0.4-2.0)
[2024-09-16] MEDS: LEVOFLOXACIN IN DEXTROSE 5 % 750 MG/150 ML PREMIX 100 MG IV (11:58)
--- NOTE | 2024-09-16 12:05 | ED_ITS ---
HPI - Altered Mental Status General Chief Complaint: Altered Mental Status Stated Complaint: SKIN, URINARY PROBLEMS Time Seen by Provider: 09/16/24 10:19 Source: patient and other Source comment: ems Mode of arrival: ambulance Limitations: no limitations History of Present Illness HPI narrative: Patient presented to us with a chills since last night and he was weak and tired this morning, on arrival of the EMS the patient was found to be hypotensive in the 80s systolic and he was started on IV fluid, upon arrival to us the patient was feeling better but he still feeling weak and tired and according to his at the bedside he does have a chronic cough not changed He was feeling warm last night and did had some chills The patient denies any abdominal pain no chest pain no nausea no vomiting Related Data Home Medications ?Medication ?Instructions ?Recorded ?Confirmed amitriptyline 150 mg tablet mg 09/16/24 atorvastatin 40 mg tablet mg 09/16/24 clopidogrel 75 mg tablet mg 09/16/24 dapagliflozin propanediol 10 mg mg 09/16/24 tablet (Farxiga) gabapentin 100 mg capsule mg 09/16/24 glipizide 10 mg tablet mg 09/16/24 hydrocortisone 10 mg tablet mg 09/16/24 levothyroxine 50 mcg tablet mcg 09/16/24 metoprolol tartrate 25 mg tablet mg 09/16/24 oxycodone-acetaminophen 5 mg-325 tab 09/16/24 mg tablet pantoprazole 40 mg tablet,delayed mg PO 09/16/24 release pyridostigmine bromide 60 mg tablet mg 09/16/24 sodium bicarbonate 650 mg tablet mg 09/16/24 Allergies Allergy/AdvReac Type Severity Reaction Status Date / Time No Known Drug Allergies Allergy Verified 09/16/24 10:20 Review of Systems ROS Status of ROS 10 or more systems reviewed and unremark able except as noted in history and below Exam Narrative Exam Narrative: Nurses notes and vital signs reviewed and patient is not hypoxic. General: Well-appearing and in no apparent distress. Skin: Warm, dry, no pallor noted. No rash. Head: Normocephalic, atraumatic. Neck: Supple, non-tender. Eye: Pupils are equal, round and EOMI. No scleral icterus. Ears, Nose, Mouth, and Throat: TM are clear, no nasal mucosal hypertrophy. Oral mucosa is moist, no posterior oropharynx erythema, uvula is mid-line Cardiovascular: Regular Rate and Rhythm without murmur, gallop or rub. Respiratory: No accessory muscle use or respiratory distress. Lungs are clear to auscultation, no wheezing, rales or rhonchi Chest Wall: no tenderness Back: No midline thoracic or lumbar vertebral tenderness. No CVA tenderness Musculoskeletal: normal ROM, no calf or popliteal tenderness, no lower extremity edema/swelling GI: Abdomen is soft, non-distended. Normal bowel sounds. No masses appreciated. No tenderness to palpation. No rebound, guarding, or rigidity noted. Neurological: A&O x4. No cranial nerve dysfunction observed. No truncal ataxia. Moves all extremities. Sensation intact. Psychiatric: Cooperative and interactive. Normal mood and affect. Constitutional Vital Signs, click to edit/add: Last Vital Signs Pulse 92 H 09/16/24 11:40 Resp 23 H 09/16/24 11:40 BP 96/69 09/16/24 11:30 Pulse Ox 95 09/16/24 11:40 O2 Del Method Room Air 09/16/24 10:17 Course Vital Signs Vital signs: Vital Signs Pulse Rate 96 H 09/16/24 10:17 Respiratory Rate 18 09/16/24 10:17 Blood Pressure 110/65 09/16/24 10:17 Pulse Oximetry 94 L 09/16/24 10:17 Oxygen Delivery Method Room Air 09/16/24 10:17 Pulse Rate 92 H 09/16/24 11:40 Respiratory Rate 23 H 09/16/24 11:40 Blood Pressure 96/69 09/16/24 11:30 Pulse Oximetry 95 09/16/24 11:40 Oxygen Delivery Method Room Air 09/16/24 10:17 MDM - Altered Mental Status MDM Narrative Medical decision making narrative: Upon arrival the patient had his fluid continued His EKG in the ER showed sinus rhythm with a heart rate of [address] elevation or depression The patient chest x-ray shows possible infiltrate and with his picture we will c over him for possible pneumonia CBC shows leukocytosis with a lactic acid 2.2 The patient chemistry showed that the creatinine is elevated and according to the that creatinine usually is between 1.5 and 2 and today it is above 2 and that could be an acute kidney injury Patient had the fluid continued according to sepsis protocol 30 cc/kg and he also was started on Levaquin after obtaining a blood culture Patient will be admitted for further evaluation of possible pneumonia and sepsis The patient case was discussed with Dr. Ramirez and he agreed with above- mentioned plan Lab Data Labs: Lab Results 09/16/24 Range/Units 10:25 WBC 14.7 H (4.0-11.0) 10^3/uL RBC 4.12 L (4.70-6.10) 10^6/uL Hgb 12.6 L (14.0-18.0) g/dL Hct 38.0 L (42.0-54.0) % MCV 92.2 (80.0-94.0) fL MCH 30.6 (25.9-34.0) pg MCHC 33.2 (29.9-35.2) g/dL RDW 14.3 (11.0-15.0) % Plt Count 251 (150-450) 10^3/uL MPV 9.8 (9.5-13.5) fL Neut % (Auto) 83.9 H (43.0-75.0) % Lymph % (Auto) 9.1 L (20.5-60.0) % [place] % (Auto) 6.1 (1.7-12.0) % Eos % (Auto) 0.3 L (0.9-7.0) % Baso % (Auto) 0.3 (0.2-2.0) % Neut # (Auto) 12.3 H (1.4-6.5) 10^3/uL Lymph # (Auto) 1.3 (1.2-3.8) 10^3/uL [place] # (Auto) 0.9 H (0.3-0.8) 10^3/uL Eos # (Auto) 0.1 (0.0-0.7) 10^3/uL Baso # (Auto) 0.0 (0.0-0.1) 10^3/uL Abs Immat Gran (auto) 0.05 H (0.00-0.03) 10^3/uL Imm/Tot Granulo (auto) 0.3 (0.0-0.5) % PT 11.3 (9.0-11.6) sec INR 1.07 Sodium 140 (136-145) mmol/L Potassium 4.1 (3.5-5.1) mmol/L Chloride 107 (98-107) mmol/L Carbon Dioxide 24.3 (21.0-32.0) mmol/L Anion Gap 12.8 BUN 31.0 H (7.0-18.0) mg/dL Creatinine 2.44 H (0.70-1.30) mg/dL Est GFR ( Amer) 32 L (>=60 mL/min/1.73m^2) Est GFR (Non-Af Amer) 27 L (>=60 mL/min/1.73m^2) BUN/Creatinine Ratio 12.7 Glucose 196 H (74-106) mg/dL Lactate 2.2 H* (0.4-2.0) mmol/L Calcium 8.6 (8.5-10.1) mg/dL Total Bilirubin 1.0 (0.2-1.0) mg/dL AST 7 L (15-37) U/L ALT 17 (16-63) U/L Alkaline Phosphatase 89 (46-116) U/L Troponin I High Sens 20.9 (4.0-76.1) pg/mL Total Protein 6.6 (6.4-8.2) g/dL Albumin 2.8 L (3.4-5.0) g/dL Globulin 3.8 g/dL Albumin/Globulin Ratio 0.7 Discharge Plan Discharge Chief Complaint: Altered Mental Status Clinical Impression: Sepsis, ADARSH (acute kidney injury), Pneumonia, Hypotension Patient Disposition: Admitted As Inpatient Time of Disposition Decision: 12:05
[2024-09-16 12:21] LABS: Internal Control Within Normal Limits; SARS-CoV-2 Ag NEGATIVE (NEGATIVE)
[2024-09-16 13:40] LABS: Bilirubin Urine NEGATIVE (NEGATIVE); Blood Urine NEGATIVE (NEGATIVE); Clarity Urine CLEAR (CLEAR); Color Urine LT. YELLOW (YELLOW); Glucose Urine UA >=1000 mg/dL (NEGATIVE); Ketones Urine NEGATIVE (NEGATIVE); Leukocyte Esterase Urine NEGATIVE (NEGATIVE); Nitrite Urine NEGATIVE (NEGATIVE); Protein Urine NEGATIVE (NEG/TRACE); Urobilinogen Urine 0.2 EU/dL (0.2-1.0); pH Urine 5.5 (5.0-9.0)
[2024-09-16 13:42] LABS: Urine Microscopic Indicated NO
[2024-09-16 13:57] LABS: Lactate/Lactic Acid 1.7 mmol/L (0.4-2.0)
--- OUTSIDE RECORDS SUMMARY | 2024-09-16 14:44 | XMS_ITS | CCD ---
Author Organization [facility] Care Team Providers Care Health Program Manager Name Role Phone PHYSICIAN, DEFAULT Unavailable Unavailable PHYSICIAN, DEFAULT Unavailable Unavailable ALEC PINZON Unavailable Unavailable PHYSICIAN, DEFAULT Unavailable Unavailable PHYSICIAN, DEFAULT Unavailable Unavailable ALEC PINZON Unavailable Unavailable LalyereAlec modi Primary Care Provider BARBARA PEREA Referring Unavailable ALISSONSABRINA SA Referring Unavailable NADERER, ALEC ISAAC Primary Care Unavailabl e АНДРЕЙ, ANDREIA Referring Unavailable NADERER, ALEC ISAAC Primary Care Unavailabl e АНДРЕЙ, ANDREIA Referring Unavailable NADERELy, ALEC ISAAC Primary Care Unavailabl e АНДРЕЙ, ANDREIA Referring Unavailable NADERER, ALEC ISAAC Primary Care Unavailabl e NadereAlec modi Primary Care Provider [phone] Alec Pinzon MD Primary Care Provider ALEC [...] Unavailable NADERER, DR ALEC Rose Consulting Unavailable ANGYEBYAMSINE, DR STEPHIE Modi Consulting Unavailable NADERER, DR [...] Rose Marie ESCALONA, Alec Primary Care Provider [phone] ROSY, JAS Referring Unavailable KAY DAY Referring [...] Date of Onset Reaction(s) Facility (1 source) 76642,00; Translations: [27508,00] Propensity to adverse reactions (disorder) 9 [facility] Medications Current Medications Medication Drug Class(es) [...] MG tablet Indications: PVD (peripheral vascular disease) ([facility]) TAKE 1 TABLET BY MOUTH EVERY DAY [...] Indications: Type 2 diabetes mellitus with hyperglycemia ([facility]) TAKE 1 TABLET BY MOUTH EVERY DAY [...] mg by mouth once daily Pantoprazole Sodium ([place] PO) Take 80 mg by mouth [...] mouth daily 0 Active polyethylene glycol 3350 37335 mg powder for oral solution (1 source) [...] artery disease; 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] Onset: 1 [...] Other aftercare (2 sources) 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; 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] Episodic Other and [...] 09-04-2022 Episodic Other aftercare (3 sources) 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; Translations: [OTH JAIL CURRENT DRUG THERAPY] Onset: 11-22-2022 Episodic Other aftercare (1 source) retirement (current) use of oral hypoglycemic drugs; Translations: [CARD LACER JACQUARD USE ORAL HYPOGLYCEMIC DX] Onset: 09-04-2022 Episodic [...] [Moles/Vol] 12 mmol/L Normal 7-20 [facility] Comment on above: Performed By: #### L [id number] ####[facility] (BEAKER)[address] [place] [address] Calcium [Mass/Vol] 9.1 mg/dL Normal 8.6-10.3 [facility] Comment on above: Performed By: #### L [id number] ####[facility] ([facility])[address] [place] [address] Chloride [Moles/Vol] 106 mmol/L Normal 98-107 [facility] Comment on above: Performed By: #### L [id number] ####[facility] ([facility])[address] [place] [address] CO2 [Moles/Vol] 23 mmol/L Normal 21-31 [facility] Comment on above: Performed By: #### L [id number] ####[facility] ([facility])[address] [place] [address] Creatinine [Mass/Vol] 1.72 mg/dL High 0.70-1.30 [facility] Comment on above: Performed By: #### L [id number] ####[facility] ([facility])[address] [place] [address] GLOMERULAR FILTRATION RATE ML/MIN/1.73 SQ M.PREDICTED 43.0 mL/min/1.73m*2 Low >60.0 [facility] Comment on above: Result Comment: [facility]???s estimated glomerular filtration rate (eGFR) will no [...] of individuals. Performed By: #### L [id number] ####[facility] ([facility])[address] [place] [address] Glucose [Mass/Vol] 119 mg/dL High 70-100 [facility] Comment on above: Performed By: #### L [id number] ####[facility] (BEAKER)[address] [place] [address] Potassium [Moles/Vol] 4.1 mmol/L Normal 3.5-5.1 [facility] Comment on above: Performed By: #### L [id number] ####[facility] (BEAKER)[address] [place] [address] Sodium [Moles/Vol] 137 mmol/L Normal 136-145 [facility] Comment on above: Performed By: #### L [id number] ####[facility] (BEAKER)[address] [place] [address] Urea nitrogen [Mass/Vol] 22 mg/dL Normal 7-25 [facility] Comment on above: Performed By: #### L [id number] ####[facility] [place] [address] UREA NITROGEN/CREATININE (MASS RATIO) IN SER/PLAS 12.8 Normal [facility] Comment on above: Performed By: #### L [id number] ####[facility] (BEAKER)[address] [place] [address] CBCon 2024 Erythrocyte distribution width (RBC) [Ratio] 14.4 % Normal 11.5-15.0 [facility] Comment on above: Performed By: #### L [id number] ####[facility] (BEAKER)[address] [place] [address] ERYTHROCYTE MEAN CORPUSCULAR HEMOGLOBIN CONCENTRATION (G/DL) BY AUTOMATED 33.8 g/dL Normal 32.0-35.0 [facility] Comment on above: Performed By: #### L [id number] ####[facility] (BEAKER)[address] [place] [address] Hematocrit (Bld) [Volume fraction] 34.9 % Low 39.0-55.0 [facility] Comment on above: Performed By: #### L [id number] ####[facility] (BEAKER)[address] [place] [address] Hemoglobin (Bld) [Mass/Vol] 11.8 g/dL Low 13.0-17.0 [facility] Comment on above: Performed By: #### L [id number] ####[facility] ([facility])[address] [place] [address] MCH (RBC) [Entitic mass] 30.0 pg Normal 27.0-33.0 [facility] Comment on above: Performed By: #### L [id number] ####[facility] ([facility])[address] [place] [address] MCV (RBC) [Entitic vol] 88.8 fL Normal 82.0-98.0 [facility] Comment on above: Performed By: #### L [id number] ####[facility] ([facility])[address] [place] [address] PLATELETS (10*3/UL) IN BLOOD AUTOMATED COUNT 272 10*3/uL Normal 150-400 [facility] Comment on above: Performed By: #### L [id number] ####[facility] ([facility])[address] [place] [address] RBC (Bld) [#/Vol] 3.93 10*6/uL Low 4.20-5.70 [facility] Comment on above: Performed By: #### L [id number] ####[facility] ([facility])[address] [place] [address] WBC (Bld) [#/Vol] 4.96 10*3/uL Normal 4.00-10.60 [facility] Comment on above: Performed By: #### L [id number] ####[facility] [place] [address] CORTISOLon 2024 CORTISOL (UG/DL) IN SER/PLAS 1.9 ug/dL Low 6-23 [facility] Comment on above: Performed By: #### L [id number] ####[facility] (BEAKER)[address] [place] [address] MAGNESIUMon 2024 Magnesium [Mass/Vol] 1.3 mg/dL Low 1.9-2.7 [facility] Comment on above: Performed By: #### L [id number] ####[facility] ([facility])[address] [place] [address] PHOSPHORUSon 2024 Magnesium [Mass/Vol] 3.4 mg/dL Normal 2.5-5.0 [facility] Comment on above: Performed By: #### L [id number] ####[facility] ([facility])[address] [place] [address] 30on 07-10-2024 30 The patient is Moder ately Stable - Low risk of patient condition declining or worsening The patient's goals for the shift include Sleep, rest The clinical goals for the shift include Comfort, safety, sleep Normal [facility] BASIC METABOLIC PANELon 06-19 Anion gap [Moles/Vol] 9 mmol/L Normal 7-20 [facility] Comment on above: Performed By: #### L [id number] ####[facility] [place] [address] Calcium [Mass/Vol] 9.4 mg/dL Normal 8.6-10.3 [facility] Comment on above: Performed By: #### L [id number] ####[facility] [place] [address] Chloride [Moles/Vol] 106 mmol/L Normal 98-107 [facility] Comment on above: Performed By: #### L [id number] ####[facility] (BEAKER)[address] [place] [address] CO2 [Moles/Vol] 24 mmol/L Normal 21-31 [facility] Comment on above: Performed By: #### L [id number] ####[facility] (BEAKER)[address] [place] [address] Creatinine [Mass/Vol] 1.95 mg/dL High 0.70-1.30 [facility] Comment on above: Performed By: #### L [id number] ####[facility] ([facility] [place] [address] GLOMERULAR FILTRATION RATE ML/MIN/1.73 SQ M.PREDICTED 37.2 mL/min/1.73m*2 Low >60.0 [facility] Comment on above: Result Comment: [facility]???s estimated glomerular filtration rate (eGFR) will no [...] of individuals. Performed By: #### L [id number] ####[facility] ([facility])[address] [place] [address] Glucose [Mass/Vol] 136 mg/dL High 70-100 [facility] Comment on above: Performed By: #### L [id number] ####[facility] ([facility])[address] [place] [address] Potassium [Moles/Vol] 4.1 mmol/L Normal 3.5-5.1 [facility] Comment on above: Performed By: #### L [id number] ####[facility] ([facility])[address] [place] [address] Sodium [Moles/Vol] 135 mmol/L Low 136-145 [facility] Comment on above: Performed By: #### L [id number] ####[facility] [place] [address] Urea nitrogen [Mass/Vol] 26 mg/dL High 7-25 [facility] Comment on above: Performed By: #### L [id number] ####[facility] [place] [address] UREA NITROGEN/CREATININE (MASS RATIO) IN SER/PLAS 13.3 Normal [facility] Comment on above: Performed By: #### L [id number] ####[facility] [place] [address] CBCon 07-10-2024 Erythrocyte distribution width (RBC) [Ratio] 14.6 % Normal 11.5-15.0 [facility] Comment on above: Performed By: #### L [id number] ####[facility] ([facility])[address] [place] [address] ERYTHROCYTE MEAN CORPUSCULAR HEMOGLOBIN CONCENTRATION (G/DL) BY AUTOMATED 33.5 g/dL Normal 32.0-35.0 [facility] Comment on above: Performed By: #### L [id number] ####[facility] ([facility])[address] [place] [address] Hematocrit (Bld) [Volume fraction] 36.4 % Low 39.0-55.0 [facility] Comment on above: Performed By: #### L [id number] ####[facility] ([facility])[address] [place] [address] Hemoglobin (Bld) [Mass/Vol] 12.2 g/dL Low 13.0-17.0 [facility] Comment on above: Performed By: #### L [id number] ####[facility] ([facility])[address] [place] [address] MCH (RBC) [Entitic mass] 30.0 pg Normal 27.0-33.0 [facility] Comment on above: Performed By: #### L [id number] ####[facility] ([facility] [place] [address] MCV (RBC) [Entitic vol] 89.4 fL Normal 82.0-98.0 [facility] Comment on above: Performed By: #### L [id number] ####[facility] ([facility] [place] [address] PLATELETS (10*3/UL) IN BLOOD AUTOMATED COUNT 272 10*3/uL Normal 150-400 [facility] Comment on above: Performed By: #### L [id number] ####[facility] ([facility])[address] [place] [address] RBC (Bld) [#/Vol] 4.07 10*6/uL Low 4.20-5.70 [facility] Comment on above: Performed By: #### L [id number] ####[facility] ([facility])[address] [place] [address] WBC (Bld) [#/Vol] 5.73 10*3/uL Normal 4.00-10.60 [facility] Comment on above: Performed By: #### L [id number] ####[facility] ([facility])[address] [place] [address] CORTISOLon 07-10-2024 CORTISOL (UG/DL) IN SER/PLAS 2.0 ug/dL Low 6-23 [facility] Comment on above: Performed By: #### L [id number] ####[facility] ([facility])[address] [place] [address] AMMONIAon 07-09-2024 AMMONIA (UMOL/L) IN PLASMA 28 umol/L Normal 18-72 [facility] Comment on above: Performed By: #### L [id number] ####[facility] ([facility])[address] [place] [address] APTTon 07-09-2024 ACTIVATED PARTIAL THROMBOPLASTIN TIME IN PPP BY COAGULATION ASSAY 93.8 Seconds High 25.0-35.0 [facility] Comment on above: Result Comment: Clin ical significance of the APTT is questionable in the presence of heparin. Performed By: #### L [id number] ####[facility] ([facility])[address] [place] [address] CALCIUM, IONIZEDon CALCIUM IONIZED (MMOL/L) IN BLOOD 1.16 mmol/L Normal 1.15-1.33 [facility] Comment on above: Performed By: #### L [id number] ####[facility] [id number] [place] [address] [place] CBC WITH AUTO DIFFERENTIALon 07-09-2024 Basophils (Bld) [#/Vol] 0.04 10*3/uL Normal 0.00-0.20 [facility] Comment on above: Performed By: #### L [id number] ####[facility] (BEAKER)[address] [place] [address] Basophils/100 WBC (Bld) 0.6 % Normal 0.0-1.[address] [facility] Comment on above: Performed By: #### L [id number] ####[facility] (BEAKER)[address] [place] [address] Eosinophils (Bld) [#/Vol] 0.17 10*3/uL Normal 0.00-0.50 [facility] Comment on above: Performed By: #### L [id number] ####[facility] (BEAKER)[address] [place] [address] Eosinophils/100 WBC (Bld) 2.7 % Normal 0.0-6.0 [facility] Comment on above: Performed By: #### L [id number] ####[facility] (BEAKER)[address] [place] [address] Erythrocyte distribution width (RBC) [Ratio] 14.7 % Normal 11.5-15.0 [facility] Comment on above: Performed By: #### L [id number] ####[facility] (BEAKER)[address] [place] [address] ERYTHROCYTE MEAN CORPUSCULAR HEMOGLOBIN CONCENTRATION (G/DL) BY AUTOMATED 33.8 g/dL Normal 32.0-35.0 [facility] Comment on above: Performed By: #### L [id number] ####[facility] (BEAKER)[address] [place] [address] Hematocrit (Bld) [Volume fraction] 37.9 % Low 39.0-55.0 [facility] Comment on above: Performed By: #### L [id number] ####[facility] (BEAKER)[address] [place] [address] Hemoglobin (Bld) [Mass/Vol] 12.8 g/dL Low 13.0-17.0 [facility] Comment on above: Performed By: #### L [id number] ####[facility] (BEAKER)[address] [place] [address] Immature granulocytes (Bld) [#/Vol] 0.02 10*3/uL Normal 0.00-0.20 [facility] Comment on above: Performed By: #### L [id number] ####[facility] (BEAKER)[address] [place] [address] Immature granulocytes/100 WBC (Bld) 0.3 % Normal 0.0-1.0 [facility] Comment on above: Performed By: #### L [id number] ####[facility] (BEAKER)[address] [place] [address] Lymphocytes (Bld) [#/Vol] 1.64 10*3/uL Normal 1.20-4.00 [facility] Comment on above: Performed By: #### L [id number] ####[facility] (BEAKER)[address] [place] [address] Lymphocytes/100 WBC (Bld) 26.0 % Normal 20.0-45.0 [facility] Comment on above: Performed By: #### L [id number] ####[facility] (BEAKER)[address] [place] [address] MCH (RBC) [Entitic mass] 29.8 pg Normal 27.0-33.0 [facility] Comment on above: Performed By: #### L [id number] ####[facility] (BEAKER)[address] [place] [address] MCV (RBC) [Entitic vol] 88.3 fL Normal 82.0-98.0 [facility] Comment on above: Performed By: #### L [id number] ####[facility] (BEAKER)[address] [place] [address] Monocytes (Bld) [#/Vol] 0.59 10*3/uL Normal 0.10-1.00 [facility] Comment on above: Performed By: #### L [id number] ####[facility] ([facility])[address] [place] [address] Monocytes/100 WBC (Bld) 9.4 % Normal 5.0-12.0 [facility] Comment on above: Performed By: #### L [id number] ####[facility] ([facility])[address] [place] [address] Neutrophils (Bld) [#/Vol] 3.85 10*3/uL Normal 1.60-7.60 [facility] Comment on above: Performed By: #### L [id number] ####[facility] ([facility])[address] [place] [address] Neutrophils/100 WBC (Bld) 61.0 % Normal 40.0-72.0 [facility] Comment on above: Performed By: #### L [id number] ####[facility] ([facility])[address] [place] [address] NRBC (PER 100 WBCS) BY AUTOMATED COUNT 0.0 % Normal 0 [facility] Comment on above: Performed By: #### L [id number] ####[facility] ([facility])[address] [place] [address] PLATELETS (10*3/UL) IN BLOOD AUTOMATED COUNT 324 10*3/uL Normal 150-400 [facility] Comment on above: Performed By: #### L [id number] ####[facility] ([facility])[address] [place] [address] RBC (Bld) [#/Vol] 4.29 10*6/uL Normal 4.20-5.70 [facility] Comment on above: Performed By: #### L [id number] ####[facility] ([facility])[address] [place] [address] WBC (Bld) [#/Vol] 6.31 10*3/uL Normal 4.00-10.60 [facility] Comment on above: Performed By: #### L [id number] ####[facility] [place] [address] COMPREHENSIVE METABOLIC PANE Sonido 07-09-2024 Albumin [Mass/Vol] 3.7 g/dL Normal 3.5-5.7 [facility] Comment on above: Performed By: #### L [id number] ####[facility] ([facility])[address] [place] [address] ALP [Catalytic activity/Vol] 91 U/L Normal 34-104 [facility] Comment on above: Performed By: #### L [id number] ####[facility] ([facility])[address] [place] [address] ALT [Catalytic activity/Vol] 14 U/L Normal 7-52 [facility] Comment on above: Performed By: #### L [id number] ####[facility] ([facility])[address] [place] [address] Anion gap [Moles/Vol] 14 mmol/L Normal 7-20 [facility] Comment on above: Performed By: #### L [id number] ####[facility] ([facility])[address] [place] [address] AST [Catalytic activity/Vol] 14 U/L Normal 13-39 [facility] Comment on above: Performed By: #### L [id number] ####[facility] ([facility])[address] [place] [address] Bilirubin [Mass/Vol] 0.7 mg/dL Normal 0.3-1.0 [facility] Comment on above: Performed By: #### L [id number] ####[facility] ([facility])[address] [place] [address] Calcium [Mass/Vol] 10.0 mg/dL Normal 8.6-10.3 [facility] Comment on above: Performed By: #### L [id number] ####[facility] [place] [address] Chloride [Moles/Vol] 100 mmol/L Normal 98-107 [facility] Comment on above: Performed By: #### L [id number] ####[facility] ([facility])[address] [place] [address] CO2 [Moles/Vol] 23 mmol/L Normal 21-31 [facility] Comment on above: Performed By: #### L [id number] ####[facility] ([facility])[address] [place] [address] Creatinine [Mass/Vol] 2.27 mg/dL High 0.70-1.30 [facility] Comment on above: Performed By: #### L [id number] ####[facility] ([facility])[address] [place] [address] GLOMERULAR FILTRATION RATE ML/MIN/1.73 SQ M.PREDICTED 31.0 mL/min/1.73m*2 Low >60.0 [facility] Comment on above: Result Comment: [facility]???s estimated glomerular filtration rate (eGFR) will no [...] of individuals. Performed By: #### L [id number] ####[facility] ([facility])[address] [place] [address] Glucose [Mass/Vol] 245 mg/dL High 70-100 [facility] Comment on above: Performed By: #### L [id number] ####[facility] ([facility])[address] [place] [address] Potassium [Moles/Vol] 4.4 mmol/L Normal 3.5-5.1 [facility] Comment on above: Performed By: #### L [id number] ####[facility] ([facility])[address] [place] [address] Protein [Mass/Vol] 7.5 g/dL Normal 6.0-8.3 [facility] Comment on above: Performed By: #### L [id number] ####[facility] ([facility])[address] [place] [address] Sodium [Moles/Vol] 133 mmol/L Low 136-145 [facility] Comment on above: Performed By: #### L [id number] ####[facility] ([facility])[address] [place] [address] Urea nitrogen [Mass/Vol] 28 mg/dL High 7-25 [facility] Comment on above: Performed By: #### L [id number] ####[facility] ([facility])[address] [place] [address] UREA NITROGEN/CREATININE (MASS RATIO) IN SER/PLAS 12.3 Normal [facility] Comment on above: Performed By: #### L [id number] ####[facility] ([facility])[address] [place] [address] CT HEAD WO IV CONTRASTon CT HEAD WO IV CONTRAST [facility]24 EDNURS states pt was s een a week ago Wednesday for ketruda infusion. Was hypotensive at that time and given fluid. Dr sykes wanted pt to come to ed for eval at that time, but pt declined. Today states his bp was 82/56 with a HR 107. Normal [facility] EDPROVon 07-09-2024 EDPROV Normal [facility] HPon 07-09-2024 HP Normal [facility] LACTIC ACID WITH 4 HOUR REFL EXon 07-09-2024 LACTATE (MMOL/L) IN SER/PLAS 1.1 mmol/L Normal 0.5-2.2 [facility] Comment on above: Performed By: #### L [id number] ####[facility] ([facility])[address] [place] [address] PHOSPHORUSon 07-09-2024 Magnesium [Mass/Vol] 4.5 mg/dL Normal 2.5-5.0 [facility] Comment on above: Performed By: #### L [id number] ####[facility] (BEAKER)[address] [place] [address] PROTIME-INRon 07-09-2024 INR IN PPP BY COAGULATION ASSAY 1.10 Normal 0.90-1.10 [facility] Comment on above: Result Comment: ACCC P [...] CHEST 1995;[id number]. Performed By: #### L [id number] ####[facility] (BEAKER)[address] [place] [address] PROTHROMBIN TIME (PT) IN PPP BY COAGULATION ASSAY 14.2 Seconds Normal 12.3-14.8 [facility] Comment on above: Performed By: #### L [id number] ####[facility] (BE[facility])[address] [place] [address] PTH, INTACTon 07-09-2024 PARATHYRIN INTACT (PG/ML) IN SER/PLAS 129 pg/mL High 12-88 [facility] Comment on above: Performed By: #### L [id number] ####[facility] ([facility])[address] [place] [address] T3, FREEon 07-09-2024 TRIIODOTHYRONINE (T3) FREE (PG/ML) IN SER/PLAS 3.1 pg/mL Normal 2.5-3.9 [facility] Comment on above: Performed By: #### L [id number] ####[facility] ([facility])[address] [address] T4, FREEon 07-09-2024 THYROXINE (T4) FREE (NG/DL) IN SER/PLAS 0.53 ng/dL Low 0.71-1.85 [facility] Comment on above: Performed By: #### L [id number] ####[facility] ([facility])[address] [address] TROPONIN Ion 07-09-2024 Troponin I.cardiac [Mass/Vol] 0.01 ng/mL Normal 0.00-0.04 [facility] Comment on above: Performed By: #### L [id number] ####[facility] ([facility])[address] [address] TSH3 REFLEX TO FT4on 024 THYROTROPIN (MIU/L) IN SER/PLAS BY DETECTION LIMIT <= 0.05 MIU/L 0.10 mIU/L Low 0.34-5.60 [facility] Comment on above: Performed By: #### L [id number] ####[facility] [facility])[address] [place] [address] URINALYSIS WITH REFLEX CULTU REon 07-09-2024 BILIRUBIN, TOTAL PRESENCE IN URINE Negative Normal Negative [facility] Comment on above: Order Comment: Micro scopics not performed on urines with negative chemical reactions unless requested on original order. Performed By: #### L [id number] ####[facility] ([facility])[address] [place] [address] Clarity (U) Clear Normal Clear [facility] Comment on above: Order Comment: Micro scopics not performed on urines with negative chemical reactions unless requested on original order. Performed By: #### L [id number] ####[facility] ([facility])[address] [place] [address] Color (U) Yellow Normal Yellow [facility] Comment on above: Order Comment: Micro scopics not performed on urines with negative chemical reactions unless requested on original order. Performed By: #### L [id number] ####[facility] ([facility])[address] [place] [address] Glucose (U) [Mass/Vol] mg/dL Abnormal Negative [facility] on above: Order Comment: Micro scopics not performed on urines with negative chemical reactions unless requested on original order. Performed By: #### L [id number] ####[facility] ([facility])[address] [place] [address] HEMOGLOBIN PRESENCE IN URINE Negative Normal Negative [facility] Comment on above: Order Comment: Micro scopics not performed on urines with negative chemical reactions unless requested on original order. Performed By: #### L [id number] ####[facility] ([facility])[address] [place] [address] Ketones Ql (U) Negative Normal Negative [facility] Comment on above: Order Comment: Micro scopics not performed on urines with negative chemical reactions unless requested on original order. Performed By: #### L [id number] ####[facility] ([facility])[address] [place] [address] LEUKOCYTE ESTERASE PRESENCE IN URINE BY TEST STRIP Negative Normal Negative [facility] Comment on above: Order Comment: Micro scopics not performed on urines with negative chemical reactions unless requested on original order. Performed By: #### L [id number] ####[facility] ([facility])[address] [place] [address] NITRITE PRESENCE IN URINE Negative Normal Negative [facility] Comment on above: Order Comment: Micro scopics not performed on urines with negative chemical reactions unless requested on original order. Performed By: #### L [id number] ####[facility] [place] [address] pH (U) 5.0 [pH] Normal 5.0-8.0 [facility] Comment on above: Order Comment: Micro scopics not performed on urines with negative chemical reactions unless requested on original order. Performed By: #### L [id number] ####[facility] ([facility])[address] [place] [address] Protein (U) [Mass/Vol] Negative Normal Negative Un [facility] Comment on above: Order Comment: Micro scopics not performed on urines with negative chemical reactions unless requested on original order. Performed By: #### L [id number] ####[facility] ([facility])[address] [place] [address] Specific gravity (U) [Rel density] 1.020 Normal 1.015-1.02 0 [facility] Comment on above: Order Comment: Micro scopics not performed on urines with negative chemical reactions unless requested on original order. Performed By: #### L [id number] ####[facility] [place] [address] 36on 06-30-2024 36 Spoke with patient's and she will take him to the ED right now. Normal [facility] Telephoneon 06-30-2024 Telephone Normal [facility] CBC WITH AUTO DIFFERENTIALon 06-29-2024 Basophils (Bld) [#/Vol] 0.04 10*3/uL Normal 0.00-0.20 [facility] Comment on above: Performed By: #### L [id number] ####[facility] ([facility])[address] [place] [address] Basophils/100 WBC (Bld) 0.5 % Normal 0.0-1.0 [facility] Comment on above: Performed By: #### L [id number] ####[facility] ([facility])[address] [place] [address] Eosinophils (Bld) [#/Vol] 0.14 10*3/uL Normal 0.00-0.50 [facility] Comment on above: Performed By: #### L [id number] ####[facility] ([facility])[address] [place] [address] Eosinophils/100 WBC (Bld) 1.8 % Normal 0.0-6.0 [facility] Comment on above: Performed By: #### L [id number] ####[facility] ([facility])[address] [place] [address] Erythrocyte distribution width (RBC) [Ratio] 14.9 % Normal 11.5-15.0 [facility] Comment on above: Performed By: #### L [id number] ####[facility] ([facility])[address] [place] [address] ERYTHROCYTE MEAN CORPUSCULAR HEMOGLOBIN CONCENTRATION (G/DL) BY AUTOMATED 33.5 g/dL Normal 32.0-35.0 [facility] Comment on above: Performed By: #### L [id number] ####[facility] ([facility])[address] [place] [address] Hematocrit (Bld) [Volume fraction] 40.9 % Normal 39.0-55.0 [facility] Comment on above: Performed By: #### L [id number] ####[facility] ([facility])[address] [place] [address] Hemoglobin (Bld) [Mass/Vol] 13.7 g/dL Normal 13.0-17.0 [facility] Comment on above: Performed By: #### L [id number] ####[facility] ([facility])[address] [place] [address] Immature granulocytes (Bld) [#/Vol] 0.02 10*3/uL Normal 0.00-0.20 [facility] Comment on above: Performed By: #### L [id number] ####[facility] ([facility])[address] [place] [address] Immature granulocytes/100 WBC (Bld) 0.3 % Normal 0.0-1.0 [facility] Comment on above: Performed By: #### L [id number] ####[facility] ([facility])[address] [place] [address] Lymphocytes (Bld) [#/Vol] 2.27 10*3/uL Normal 1.20-4.00 [facility] Comment on above: Performed By: #### L [id number] ####[facility] ([facility])[address] [place] [address] Lymphocytes/100 WBC (Bld) 30.0 % Normal 20.0-45.0 [facility] Comment on above: Performed By: #### L [id number] ####[facility] ([facility])[address] [place] [address] MCH (RBC) [Entitic mass] 30.0 pg Normal 27.0-33.0 [facility] Comment on above: Performed By: #### L [id number] ####[facility] ([facility])[address] [place] [address] MCV (RBC) [Entitic vol] 89.7 fL Normal 82.0-98.0 [facility] Comment on above: Performed By: #### L [id number] ####[facility] ([facility])[address] [place] [address] Monocytes (Bld) [#/Vol] 0.67 10*3/uL Normal 0.10-1.00 [facility] Comment on above: Performed By: #### L [id number] ####[facility] ([facility])[address] [place] [address] Monocytes/100 WBC (Bld) 8.9 % Normal 5.0-12.0 [facility] Comment on above: Performed By: #### L [id number] ####[facility] ([facility])[address] [place] [address] Neutrophils (Bld) [#/Vol] 4.43 10*3/uL Normal 1.60-7.60 [facility] Comment on above: Performed By: #### L [id number] ####[facility] ([facility])[address] [place] [address] Neutrophils/100 WBC (Bld) 58.5 % Normal 40.0-72.0 [facility] Comment on above: Performed By: #### L [id number] ####[facility] ([facility])[address] [place] [address] NRBC (PER 100 WBCS) BY AUTOMATED COUNT 0.0 % Normal 0 [facility] Comment on above: Performed By: #### L [id number] ####[facility] ([facility])[address] [place] [address] PLATELETS (10*3/UL) IN BLOOD AUTOMATED COUNT 291 10*3/uL Normal 150-400 [facility] Comment on above: Performed By: #### L [id number] ####[facility] ([facility])[address] [place] [address] RBC (Bld) [#/Vol] 4.56 10*6/uL Normal 4.20-5.70 [facility] Comment on above: Performed By: #### L [id number] ####[facility] ([facility])[address] [place] [address] WBC (Bld) [#/Vol] 7.57 10*3/uL Normal 4.00-10.60 [facility] Comment on above: Performed By: #### L [id number] ####[facility] ([facility])[address] [place] [address] COMPREHENSIVE METABOLIC PANE Sonido 06-29-2024 Albumin [Mass/Vol] 4.2 g/dL Normal 3.5-5.7 [facility] Comment on above: Performed By: #### L [id number] ####[facility] [place] [address] ALP [Catalytic activity/Vol] 101 U/L Normal 34-104 [facility] Comment on above: Performed By: #### L [id number] ####[facility] ([facility])[address] [place] [address] ALT [Catalytic activity/Vol] 19 U/L Normal 7-52 [facility] Comment on above: Performed By: #### L [id number] ####[facility] ([facility])[address] [place] [address] Anion gap [Moles/Vol] 14 mmol/L Normal 7-20 [facility] Comment on above: Performed By: #### L [id number] ####[facility] ([facility])[address] [place] [address] AST [Catalytic activity/Vol] 18 U/L Normal 13-39 [facility] Comment on above: Performed By: #### L [id number] ####[facility] ([facility])[address] [place] [address] Bilirubin [Mass/Vol] 0.7 mg/dL Normal 0.3-1.0 [facility] Comment on above: Performed By: #### L [id number] ####[facility] ([facility])[address] [place] [address] Calcium [Mass/Vol] 10.2 mg/dL Normal 8.6-10.3 [facility] Comment on above: Performed By: #### L [id number] ####[facility] ([facility])[address] [place] [address] Chloride [Moles/Vol] 101 mmol/L Normal 98-107 [facility] Comment on above: Performed By: #### L [id number] ####[facility] [place] [address] CO2 [Moles/Vol] 22 mmol/L Normal 21-31 [facility] Comment on above: Performed By: #### L [id number] ####[facility] [place] [address] Creatinine [Mass/Vol] 2.01 mg/dL High 0.70-1.30 [facility] Comment on above: Performed By: #### L [id number] ####[facility] ([facility] [place] [address] GLOMERULAR FILTRATION RATE ML/MIN/1.73 SQ M.PREDICTED 35.9 mL/min/1.73m*2 Low >60.0 [facility] Comment on above: Result Comment: [facility]???s estimated glomerular filtration rate (eGFR) will no [...] of individuals. Performed By: #### L [id number] ####[facility] ([facility])[address] [place] [address] Glucose [Mass/Vol] 158 mg/dL High 70-100 [facility] Comment on above: Performed By: #### L [id number] ####[facility] ([facility])[address] [place] [address] Potassium [Moles/Vol] 4.2 mmol/L Normal 3.5-5.1 [facility] Comment on above: Performed By: #### L [id number] ####[facility] ([facility])[address] [place] [address] Protein [Mass/Vol] 8.1 g/dL Normal 6.0-8.3 [facility] Comment on above: Performed By: #### L [id number] ####[facility] [place] [address] Sodium [Moles/Vol] 133 mmol/L Low 136-145 [facility] Comment on above: Performed By: #### L [id number] ####[facility] ([facility])[address] [place] [address] Urea nitrogen [Mass/Vol] 34 mg/dL High 7-25 [facility] Comment on above: Performed By: #### L [id number] ####[facility] ([facility])[address] [place] [address] UREA NITROGEN/CREATININE (MASS RATIO) IN SER/PLAS 16.9 Normal [facility] Comment on above: Performed By: #### L [id number] ####[facility] ([facility])[address] [place] [address] Labon 06-29-2024 Lab Normal [facility] T3, FREEon 06-29-2024 TRIIODOTHYRONINE (T3) FREE (PG/ML) IN SER/PLAS 3.3 pg/mL Normal 2.5-3.9 [facility] Comment on above: Performed By: #### L [id number] ####[facility] ([facility])[address] [place] [address] T4, FREEon 06-29-2024 THYROXINE (T4) FREE (NG/DL) IN SER/PLAS 0.55 ng/dL Low 0.71-1.85 [facility] Comment on above: Performed By: #### L [id number] ####[facility] ([facility])[address] [place] [address] TSHon 06-29-2024 THYROTROPIN (MIU/L) IN SER/PLAS BY DETECTION LIMIT <= 0.05 MIU/L 0.19 mIU/L Low 0.34-5.60 [facility] Comment on above: Performed By: #### L [id number] ####[facility] ([facility])[address] [place] [address] CBC WITH AUTO DIFFERENTIALon 06-07-2024 Basophils (Bld) [#/Vol] 0.06 10*3/uL Normal 0.00-0.20 [facility] Comment on above: Performed By: #### L [id number] ####[facility] ([facility])[address] [place] [address] Basophils/100 WBC (Bld) 0.7 % Normal 0.0-1.0 [facility] Comment on above: Performed By: #### L [id number] ####[facility] ([facility])[address] [place] [address] Eosinophils (Bld) [#/Vol] 0.13 10*3/uL Normal 0.00-0.50 [facility] Comment on above: Performed By: #### L [id number] ####[facility] ([facility])[address] [place] [address] Eosinophils/100 WBC (Bld) 1.5 % Normal 0.0-6.0 [facility] Comment on above: Performed By: #### L [id number] ####[facility] ([facility])[address] [place] [address] Erythrocyte distribution width (RBC) [Ratio] 14.8 % Normal 11.5-15.0 [facility] Comment on above: Performed By: #### L [id number] ####[facility] ([facility])[address] [place] [address] ERYTHROCYTE MEAN CORPUSCULAR HEMOGLOBIN CONCENTRATION (G/DL) BY AUTOMATED 32.5 g/dL Normal 32.0-35.0 [facility] Comment on above: Performed By: #### L [id number] ####[facility] ([facility])[address] [place] [address] Hematocrit (Bld) [Volume fraction] 43.1 % Normal 39.0-55.0 [facility] Comment on above: Performed By: #### L [id number] ####[facility] [place] [address] Hemoglobin (Bld) [Mass/Vol] 14.0 g/dL Normal 13.0-17.0 [facility] Comment on above: Performed By: #### L [id number] ####[facility] ([facility] [place] [address] Immature granulocytes (Bld) [#/Vol] 0.03 10*3/uL Normal 0.00-0.20 [facility] Comment on above: Performed By: #### L [id number] ####[facility] ([facility])[address] [place] [address] Immature granulocytes/100 WBC (Bld) 0.3 % Normal 0.0-1.0 [facility] Comment on above: Performed By: #### L [id number] ####[facility] ([facility])[address] [place] [address] Lymphocytes (Bld) [#/Vol] 2.02 10*3/uL Normal 1.20-4.00 [facility] Comment on above: Performed By: #### L [id number] ####[facility] ([facility])[address] [place] [address] Lymphocytes/100 WBC (Bld) 23.2 % Normal 20.0-45.0 [facility] Comment on above: Performed By: #### L [id number] ####[facility] ([facility])[address] [place] [address] MCH (RBC) [Entitic mass] 29.9 pg Normal 27.0-33.0 [facility] Comment on above: Performed By: #### L [id number] ####[facility] ([facility])[address] [place] [address] MCV (RBC) [Entitic vol] 91.9 fL Normal 82.0-98.0 [facility] Comment on above: Performed By: #### L [id number] ####[facility] ([facility])[address] [place] [address] Monocytes (Bld) [#/Vol] 0.64 10*3/uL Normal 0.10-1.00 [facility] Comment on above: Performed By: #### L [id number] ####[facility] ([facility])[address] [place] [address] Monocytes/100 WBC (Bld) 7.4 % Normal 5.0-12.0 [facility] Comment on above: Performed By: #### L [id number] ####[facility] ([facility])[address] [place] [address] Neutrophils (Bld) [#/Vol] 5.81 10*3/uL Normal 1.60-7.60 [facility] Comment on above: Performed By: #### L [id number] ####[facility] ([facility])[address] [place] [address] Neutrophils/100 WBC (Bld) 66.9 % Normal 40.0-72.0 [facility] Comment on above: Performed By: #### L [id number] ####[facility] ([facility])[address] [address] NRBC (PER 100 WBCS) BY AUTOMATED COUNT 0.0 % Normal 0 [facility] Comment on above: Performed By: #### L [id number] ####[facility] ([facility])[address] [address] PLATELETS (10*3/UL) IN BLOOD AUTOMATED COUNT 300 10*3/uL Normal 150-400 [facility] Comment on above: Performed By: #### L [id number] ####[facility] ([facility])[address] [place] [address] RBC (Bld) [#/Vol] 4.69 10*6/uL Normal 4.20-5.70 [facility] Comment on above: Performed By: #### L [id number] ####[facility] ([facility])[address] [address] WBC (Bld) [#/Vol] 8.69 10*3/uL Normal 4.00-10.60 [facility] Comment on above: Performed By: #### L [id number] ####[facility] [place] [address] COMPREHENSIVE METABOLIC PANE Sonido 06-07-2024 Albumin [Mass/Vol] 4.1 g/dL Normal 3.5-5.7 [facility] Comment on above: Performed By: #### L [id number] ####[facility] ([facility])[address] [place] [address] ALP [Catalytic activity/Vol] 108 U/L High 34-104 [facility] Comment on above: Performed By: #### L [id number] ####[facility] ([facility])[address] [place] [address] ALT [Catalytic activity/Vol] 13 U/L Normal 7-52 [facility] Comment on above: Performed By: #### L [id number] ####[facility] ([facility])[address] [place] [address] Anion gap [Moles/Vol] 13 mmol/L Normal 7-20 [facility] Comment on above: Performed By: #### L [id number] ####[facility] [place] [address] AST [Catalytic activity/Vol] 13 U/L Normal 13-39 [facility] Comment on above: Performed By: #### L [id number] ####[facility] ([facility] [place] [address] Bilirubin [Mass/Vol] 0.6 mg/dL Normal 0.3-1.0 [facility] Comment on above: Performed By: #### L [id number] ####[facility] [place] [address] Calcium [Mass/Vol] 10.4 mg/dL High 8.6-10.3 [facility] Comment on above: Performed By: #### L [id number] ####[facility] ([facility])[address] [place] [address] Chloride [Moles/Vol] 102 mmol/L Normal 98-107 [facility] Comment on above: Performed By: #### L [id number] ####[facility] ([facility])[address] [place] [address] CO2 [Moles/Vol] 24 mmol/L Normal 21-31 [facility] Comment on above: Performed By: #### L [id number] ####[facility] ([facility])[address] [place] [address] Creatinine [Mass/Vol] 1.77 mg/dL High 0.70-1.30 [facility] Comment on above: Performed By: #### L [id number] ####[facility] ([facility])[address] [place] [address] GLOMERULAR FILTRATION RATE ML/MIN/1.73 SQ M.PREDICTED 41.8 mL/min/1.73m*2 Low >60.0 [facility] Comment on above: Result Comment: [facility]???s estimated glomerular filtration rate (eGFR) will no [...] of individuals. Performed By: #### L [id number] ####[facility] ([facility])[address] [place] [address] Glucose [Mass/Vol] 181 mg/dL High 70-100 [facility] Comment on above: Performed By: #### L [id number] ####[facility] ([facility])[address] [place] [address] Potassium [Moles/Vol] 4.6 mmol/L Normal 3.5-5.1 [facility] Comment on above: Performed By: #### L [id number] ####[facility] ([facility])[address] [place] [address] Protein [Mass/Vol] 7.8 g/dL Normal 6.0-8.3 [facility] Comment on above: Performed By: #### L [id number] ####[facility] ([facility])[address] [place] [address] Sodium [Moles/Vol] 134 mmol/L Low 136-145 [facility] Comment on above: Performed By: #### L [id number] ####[facility] [place] [address] Urea nitrogen [Mass/Vol] 31 mg/dL High 7-25 [facility] Comment on above: Performed By: #### L [id number] ####[facility] ([facility])[address] [place] [address] UREA NITROGEN/CREATININE (MASS RATIO) IN SER/PLAS 17.5 Normal [facility] Comment on above: Performed By: #### L [id number] ####[facility] ([facility])[address] [place] [address] Follow-Upon 06-07-2024 Follow-Up Normal [facility] Labon 06-07-2024 Lab Normal [facility] T3, FREEon 06-07-2024 TRIIODOTHYRONINE (T3) FREE (PG/ML) IN SER/PLAS 3.1 pg/mL Normal 2.5-3.9 [facility] Comment on above: Performed By: #### L [id number] ####[facility] ([facility])[address] [place] [address] T4, FREEon 06-07-2024 THYROXINE (T4) FREE (NG/DL) IN SER/PLAS 0.55 ng/dL Low 0.71-1.85 [facility] Comment on above: Performed By: #### L [id number] ####[facility] ([facility])[address] [place] [address] TSHon 06-07-2024 THYROTROPIN (MIU/L) IN SER/PLAS BY DETECTION LIMIT <= 0.05 MIU/L 0.25 mIU/L Low 0.34-5.60 [facility] Comment on above: Performed By: #### L [id number] ####[facility] ([facility])[address] [place] [address] MR LUMBAR SPINE WO CONTRASTo n 06-06-2024 MR LUMBAR SPINE WO CONTRAST Invalid Interpretation Code [facility] POCT GLUCOSE METER UNSOLICIT ED RESULTSon 06-05-2024 Glucose [Mass/Vol] 125 mg/dL High 70-105 [facility] Comment on above: Order Comment: Waive d Testing in the ED is performed under the ED CLIA certificate #[id number]. Result Comment: epit [email or web address] Performed By: #### L [id number] ####[facility] [place] [address] Abstracton 05-24-2024 Abstract Normal [facility] Letter (Out)on 05-24-2024 Letter (Out) [facility] 29on 05-19-2024 29 Addended by: JEWELL MERINO on: 06/16/2024 12:06 PM Modules accepted: Orders Normal [facility] COMPREHENSIVE METABOLIC PANE Sonido 05-19-2024 Albumin [Mass/Vol] 3.9 g/dL Normal 3.5-5.7 [facility] Comment on above: Performed By: #### L [id number] ####[facility] ([facility])[address] [place] [address] ALP [Catalytic activity/Vol] 103 U/L Normal 34-104 [facility] Comment on above: Performed By: #### L [id number] ####[facility] ([facility])[address] [place] [address] ALT [Catalytic activity/Vol] 13 U/L Normal 7-52 [facility] Comment on above: Performed By: #### L [id number] ####[facility] [place] [address] Anion gap [Moles/Vol] 14 mmol/L Normal 7-20 [facility] Comment on above: Performed By: #### L [id number] ####[facility] [place] [address] AST [Catalytic activity/Vol] 11 U/L Low 13-39 [facility] Comment on above: Performed By: #### L [id number] ####[facility] ([facility])[address] [place] [address] Bilirubin [Mass/Vol] 0.4 mg/dL Normal 0.3-1.0 [facility] Comment on above: Performed By: #### L [id number] ####[facility] ([facility] [place] [address] Calcium [Mass/Vol] 9.7 mg/dL Normal 8.6-10.3 [facility] Comment on above: Performed By: #### L [id number] ####[facility] [facility] ([facility])[address] [place] [address] Chloride [Moles/Vol] 102 mmol/L Normal 98-107 [facility] Comment on above: Performed By: #### L [id number] ####[facility] ([facility])[address] [place] [address] CO2 [Moles/Vol] 24 mmol/L Normal 21-31 [facility] Comment on above: Performed By: #### L [id number] ####[facility] ([facility])[address] [place] [address] Creatinine [Mass/Vol] 1.89 mg/dL High 0.70-1.30 [facility] Comment on above: Performed By: #### L [id number] ####[facility] ([facility])[address] [place] [address] GLOMERULAR FILTRATION RATE ML/MIN/1.73 SQ M.PREDICTED 38.7 mL/min/1.73m*2 Low >60.0 [facility] Comment on above: Result Comment: [facility]???s estimated glomerular filtration rate (eGFR) will no [...] of individuals. Performed By: #### L [id number] ####[facility] ([facility])[address] [place] [address] Glucose [Mass/Vol] 244 mg/dL High 70-100 [facility] Comment on above: Performed By: #### L [id number] ####[facility] ([facility])[address] [place] [address] Potassium [Moles/Vol] 4.4 mmol/L Normal 3.5-5.1 [facility] Comment on above: Performed By: #### L [id number] ####[facility] ([facility])[address] [place] [address] Protein [Mass/Vol] 7.4 g/dL Normal 6.0-8.3 [facility] Comment on above: Performed By: #### L [id number] ####[facility] ([facility])[address] [place] [address] Sodium [Moles/Vol] 136 mmol/L Normal 136-145 [facility] Comment on above: Performed By: #### L [id number] ####[facility] ([facility])[address] [place] [address] Urea nitrogen [Mass/Vol] 31 mg/dL High 7-25 [facility] Comment on above: Performed By: #### L [id number] ####[facility] ([facility])[address] [place] [address] UREA NITROGEN/CREATININE (MASS RATIO) IN SER/PLAS 16.4 Normal [facility] Comment on above: Performed By: #### L [id number] ####[facility] ([facility])[address] [place] [address] IMMUNOFIXATION ELECTROPHORES Mohan 05-19-2024 IMMUNOFIXATION ELECTROPHORESIS 1 See attached report. Normal [facility] Comment on above: Performed By: #### L [id number] ####[facility] ([facility])[address] [place] [address] Magnesium [Mass/Vol] 1440 mg/dL Normal 591-1540 [facility] Comment on above: Performed By: #### L [id number] ####[facility] ([facility])[address] [place] [address] Magnesium [Mass/Vol] 363 mg/dL Normal 60-413 [facility] Comment on above: Performed By: #### L [id number] ####[facility] ([facility])[address] [place] [address] Magnesium [Mass/Vol] 79.2 mg/dL Normal 54-285 [facility] Comment on above: Performed By: #### L [id number] ####[facility] ([facility])[address] [place] [address] KAPPA / LAMBDA LIGHT CHAINS, FREEon 05-19-2024 IMMUNOGLOBULIN LIGHT CHAINS KAPPA/LAMBDA (MASS RATIO) IN SERUM 1.21 Normal 0.22-1.74 [facility] Comment on above: Result Comment: Test Performed by [employer] [address] [place], [place] [id number] - Released 06/16/2024 19:34 Performed By: #### L [id number] ####[facility] [id number] [place] [address] IMMUNOGLOBULIN LIGHT CHAINS.KAPPA (MG/DL) IN SERUM 75.0 mg/L High <20.8 [facility] Comment on above: Result Comment: Perf ormed using Diazyme reagent on [employer]. Results obtained with different assay methods cannot be used interchangeably. Performed By: #### L [id number] ####[employer] [facility] [id number] [place] [address] IMMUNOGLOBULIN LIGHT CHAINS.LAMBDA (MG/DL) IN SERUM 61.8 mg/L High 4.2-27.7 [facility] Comment on above: Result Comment: Perf ormed using D[employer] reagent on [employer]. Results obtained with different assay methods cannot be used interchangeably. Performed By: #### L [id number] ####[employer] [facility] [id number] [place] [address] Labon 05-19-2024 Lab Normal [facility] MAGNESIUMon 05-19-2024 Magnesium [Mass/Vol] 1.8 mg/dL Low 1.9-2.7 [facility] Comment on above: Performed By: #### L [id number] ####[facility] ([facility])[address] [place] [address] Orders Onlyon 05-19-2024 Orders Only [facility] PHOSPHORUSon 05-19-2024 Magnesium [Mass/Vol] 3.1 mg/dL Normal 2.5-5.0 [facility] Comment on above: Performed By: #### L [id number] ####[facility] ([facility])[address] [place] [address] PROTEIN ELECTROPHORESIS, SER UMon 05-19-2024 Protein [Mass/Vol] 7.3 g/dL Normal 6.0-8.3 [facility] Comment on above: Performed By: #### L [id number] ####[facility] ([facility])[address] [place] [address] PROTEIN FRACTION (INTERPRETATION) IN SER/PLAS BY ELECTROPHORESIS Please see attached report. Normal [facility] Comment on above: Performed By: #### L [id number] ####[facility] ([facility])[address] [place] [address] PROTEIN ELECTROPHORESIS, URI NE, 24 HOURon 05-19-2024 Protein (U) [Mass/Vol] 13.6 mg/dL [facility] Comment on above: Result Comment: Ther e are no established reference values for random urine specimens. Performed By: #### L [id number] ####[facility] ([facility])[address] [place] [address] UPEP INTERPRETATION Please see attached report. [facility] Comment on above: Performed By: #### L [id number] ####[facility] ([facility])[address] [place] [address] PTH, INTACTon 05-19-2024 PARATHYRIN INTACT (PG/ML) IN SER/PLAS 234 pg/mL High 12-88 [facility] Comment on above: Performed By: #### L [id number] ####[facility] ([facility])[address] [place] [address] PTH-RELATED PEPTIDEon 2023 PTH-RELATED PROTEIN PLASMA 4.1 pmol/L High 0.0-2.3 [facility] Comment on above: Result Comment: INTE RPRETIVE INFORMATION: Parathyroid Hormone-Related PeptideThis test was developed and its performance characteristicsdetermined by [facility]. It has not been cleared orapproved by the [place] Food and Drug Administration. This test wasperformed in a CLIA certified laboratory and is intended forclinical purposes.Performed By: [facility] [place] [id number] Director: Devon Romeo MD, PhDCLIA Number: [id number] Performed By: #### L [id number] ####[facility] ([facility])[address] [place] [address] T4, FREEon 05-19-2024 THYROXINE (T4) FREE (NG/DL) IN SER/PLAS 0.68 ng/dL Low 0.71-1.85 [facility] Comment on above: Performed By: #### L [id number] ####[facility] ([facility])[address] [place] [address] URIC ACIDon 05-19-2024 Magnesium [Mass/Vol] 6.2 mg/dL Normal 4.4-7.6 [facility] Comment on above: Performed By: #### L [id number] ####[facility] ([facility])[address] [place] [address] VITAMIN D 1,25 DIHYDROXYon 0 05-19-2024 VITAMIN D 1,25-DIHYDROXY 28.3 pg/mL Normal 19.9-79.3 [facility] Comment on above: Result Comment: INTE RPRETIVE INFORMATION: Vitamin D, 1,25-DihydroxyThis test is primarily indicated during patient evaluation forhypercalcemia and renal failure. A normal result does not rule outVitamin D deficiency. The recommended test for diagnosing VitaminD deficiency is Vitamin D 25-hydroxy.Performed By: [facility] [place] [id number] Director: Devon Romeo MD, PhDCLIA Number: [id number] Performed By: #### L [id number] ####[facility] [place] [address] VITAMIN D 25 HYDROXYon 05-19 CALCIDIOL (25 [place] VITAMIN D3) (NG/ML) IN SER/PLAS 25.0 ng/mL Low 30.0-80.0 [facility] Comment on above: Result Comment: >80. 0 Toxicity possible Performed By: #### L [id number] ####[facility] ([facility])[address] [place] [address] CBC WITH AUTO DIFFERENTIALon 05-18-2024 Basophils (Bld) [#/Vol] 0.04 10*3/uL Normal 0.00-0.20 [facility] Comment on above: Performed By: #### L [id number] ####[facility] ([facility])[address] [place] [address] Basophils/100 WBC (Bld) 0.5 % Normal 0.0-1.[address] [facility] Comment on above: Performed By: #### L [id number] ####[facility] ([facility])[address] [place] [address] Eosinophils (Bld) [#/Vol] 0.11 10*3/uL Normal 0.00-0.50 [facility] Comment on above: Performed By: #### L [id number] ####[facility] ([facility])[address] [place] [address] Eosinophils/100 WBC (Bld) 1.5 % Normal 0.0-6.0 [facility] Comment on above: Performed By: #### L [id number] ####[facility] ([facility])[address] [place] [address] Erythrocyte distribution width (RBC) [Ratio] 14.5 % Normal 11.5-15.0 [facility] Comment on above: Performed By: #### L [id number] ####[facility] ([facility])[address] [place] [address] ERYTHROCYTE MEAN CORPUSCULAR HEMOGLOBIN CONCENTRATION (G/DL) BY AUTOMATED 32.3 g/dL Normal 32.0-35.0 [facility] Comment on above: Performed By: #### L [id number] ####[facility] [place] [address] Hematocrit (Bld) [Volume fraction] 44.3 % Normal 39.0-55.0 [facility] Comment on above: Performed By: #### L [id number] ####[facility] ([facility] [place] [address] Hemoglobin (Bld) [Mass/Vol] 14.3 g/dL Normal 13.0-17.0 [facility] Comment on above: Performed By: #### L [id number] ####[facility] ([facility])[address] [place] [address] Immature granulocytes (Bld) [#/Vol] 0.02 10*3/uL Normal 0.00-0.20 [facility] Comment on above: Performed By: #### L [id number] ####[facility] ([facility])[address] [place] [address] Immature granulocytes/100 WBC (Bld) 0.3 % Normal 0.0-1.0 [facility] Comment on above: Performed By: #### L [id number] ####[facility] ([facility])[address] [place] [address] Lymphocytes (Bld) [#/Vol] 1.70 10*3/uL Normal 1.20-4.00 [facility] Comment on above: Performed By: #### L [id number] ####[facility] ([facility])[address] [place] [address] Lymphocytes/100 WBC (Bld) 22.7 % Normal 20.0-45.0 [facility] Comment on above: Performed By: #### L [id number] ####[facility] ([facility])[address] [place] [address] MCH (RBC) [Entitic mass] 30.0 pg Normal 27.0-33.0 [facility] Comment on above: Performed By: #### L [id number] ####[facility] ([facility] [place] [address] MCV (RBC) [Entitic vol] 93.1 fL Normal 82.0-98.0 [facility] Comment on above: Performed By: #### L [id number] ####[facility] ([facility])[address] [place] [address] Monocytes (Bld) [#/Vol] 0.65 10*3/uL Normal 0.10-1.00 [facility] Comment on above: Performed By: #### L [id number] ####[facility] ([facility])[address] [place] [address] Monocytes/100 WBC (Bld) 8.7 % Normal 5.0-12.0 [facility] Comment on above: Performed By: #### L [id number] ####[facility] ([facility])[address] [place] [address] Neutrophils (Bld) [#/Vol] 4.97 10*3/uL Normal 1.60-7.60 [facility] Comment on above: Performed By: #### L [id number] ####[facility] ([facility] [place] [address] Neutrophils/100 WBC (Bld) 66.3 % Normal 40.0-72.0 [facility] Comment on above: Performed By: #### L [id number] ####[facility] ([facility] [place] [address] NRBC (PER 100 WBCS) BY AUTOMATED COUNT 0.0 % Normal 0 [facility] Comment on above: Performed By: #### L [id number] ####[facility] ([facility])[address] [place] [address] PLATELETS (10*3/UL) IN BLOOD AUTOMATED COUNT 295 10*3/uL Normal 150-400 [facility] Comment on above: Performed By: #### L [id number] ####[facility] ([facility] [place] [address] RBC (Bld) [#/Vol] 4.76 10*6/uL Normal 4.20-5.70 [facility] Comment on above: Performed By: #### L [id number] ####[facility] ([facility])[address] [place] [address] WBC (Bld) [#/Vol] 7.49 10*3/uL Normal 4.00-10.60 [facility] Comment on above: Performed By: #### L [id number] ####[facility] ([facility])[address] [place] [address] COMPREHENSIVE METABOLIC PANE [facility] 05-18-2024 Albumin [Mass/Vol] 4.2 g/dL Normal 3.5-5.7 [facility] Comment on above: Performed By: #### L [id number] ####[facility] ([facility])[address] [place] [address] ALP [Catalytic activity/Vol] 116 U/L High 34-104 [facility] Comment on above: Performed By: #### L [id number] ####[facility] ([facility])[address] [place] [address] ALT [Catalytic activity/Vol] 15 U/L Normal 7-52 [facility] Comment on above: Performed By: #### L [id number] ####[facility] ([facility])[address] [place] [address] Anion gap [Moles/Vol] 16 mmol/L Normal 7-20 [facility] Comment on above: Performed By: #### L [id number] ####[facility] ([facility] [place] [address] AST [Catalytic activity/Vol] 16 U/L Normal 13-39 [facility] Comment on above: Performed By: #### L [id number] ####[facility] ([facility] [place] [address] Bilirubin [Mass/Vol] 0.7 mg/dL Normal 0.3-1.0 [facility] Comment on above: Performed By: #### L [id number] ####[facility] ([facility] [place] [address] Calcium [Mass/Vol] 10.5 mg/dL High 8.6-10.3 [facility] Comment on above: Performed By: #### L [id number] ####[facility] ([facility])[address] [place] [address] Chloride [Moles/Vol] 102 mmol/L Normal 98-107 [facility] Comment on above: Performed By: #### L [id number] ####[facility] ([facility])[address] [place] [address] CO2 [Moles/Vol] 21 mmol/L Normal 21-31 [facility] Comment on above: Performed By: #### L [id number] ####[facility] ([facility] [place] [address] Creatinine [Mass/Vol] 1.87 mg/dL High 0.70-1.30 [facility] Comment on above: Performed By: #### L [id number] ####[facility] ([facility])[address] [place] [address] GLOMERULAR FILTRATION RATE ML/MIN/1.73 SQ M.PREDICTED 39.2 mL/min/1.73m*2 Low >60.0 [facility] Comment on above: Result Comment: [facility]???s estimated glomerular filtration rate (eGFR) will no [...] of individuals. Performed By: #### L [id number] ####[facility] ([facility])[address] [place] [address] Glucose [Mass/Vol] 175 mg/dL High 70-100 [facility] Comment on above: Performed By: #### L [id number] ####[facility] ([facility] [place] [address] Potassium [Moles/Vol] 4.8 mmol/L Normal 3.5-5.1 [facility] Comment on above: Performed By: #### L [id number] ####[facility] ([facility])[address] [place] [address] Protein [Mass/Vol] 8.0 g/dL Normal 6.0-8.3 [facility] Comment on above: Performed By: #### L [id number] ####[facility] ([facility])[address] [place] [address] Sodium [Moles/Vol] 134 mmol/L Low 136-145 [facility] Comment on above: Performed By: #### L [id number] ####[facility] ([facility])[address] [place] [address] Urea nitrogen [Mass/Vol] 32 mg/dL High 7-25 [facility] Comment on above: Performed By: #### L [id number] ####[facility] ([facility] [place] [address] UREA NITROGEN/CREATININE (MASS RATIO) IN SER/PLAS 17.1 Normal [facility] Comment on above: Performed By: #### L [id number] ####[facility] ([facility] [place] [address] CREATININE, URINE, RANDOMon 05-18-2024 Creatinine (U) [Mass/Vol] 87.0 mg/dL Normal 26-299 [facility] Comment on above: Performed By: #### L [id number] ####[facility] ([facility])[address] [place] [address] Labon 05-18-2024 Lab Normal [facility] PROTEIN, URINE, RANDOMon Protein (U) [Mass/Vol] 198.3 mg/dL [facility] Comment on above: Result Comment: Ther e are no established reference values for random urine specimens. Performed By: #### L [id number] ####[facility] ([facility])[address] [place] [address] T3, FREEon 05-18-2024 TRIIODOTHYRONINE (T3) FREE (PG/ML) IN SER/PLAS 3.0 pg/mL Normal 2.5-3.9 [facility] Comment on above: Performed By: #### L [id number] ####[facility] ([facility])[address] [place] [address] TSHon 05-18-2024 THYROTROPIN (MIU/L) IN SER/PLAS BY DETECTION LIMIT <= 0.05 MIU/L 0.49 mIU/L Normal 0.34-5.60 [facility] Comment on above: Performed By: #### L [id number] ####[facility] ([facility])[address] [place] [address] 36on 05-11-2024 36 Scheduled [facility] 36on [phone] [id number] [facility] It is scheduled 06/06 thank you [facility] Follow-Upon 04-28-2024 Follow-Up [facility] Infusionon 04-28-2024 Infusion Normal [facility] ANAon 04-27-2024 JOHNNY PATTERN Nucleolar [facility] Comment on above: Performed By: #### L [id number] ####[facility] ([facility])[address] [place] [address] JOHNNY TITER 1:40 Normal <=1:40 [facility] Comment on above: Result Comment: Test performed using HOLLI IFA JOHNNY Hep-2 Test, a pre-standardized assay designed for the qualitative and semi-quantitative detection of antinuclear antibodies. Performed By: #### L [id number] ####[facility] ([facility] [place] [address] C3 COMPLEMENTon 04-27-2024 Magnesium [Mass/Vol] 130.00 mg/dL Normal 79.00-1 52. 00 [facility] Comment on above: Performed By: #### L [id number] ####[facility] ([facility])[address] [place] [address] C4 COMPLEMENTon 04-27-2024 Magnesium [Mass/Vol] 53.3 mg/dL High 16-38 [facility] Comment on above: Performed By: #### L [id number] ####[facility] ([facility])[address] [place] [address] CBC WITH AUTO DIFFERENTIALon 04-27-2024 Basophils (Bld) [#/Vol] 0.04 10*3/uL Normal 0.00-0.20 [facility] Comment on above: Performed By: #### L [id number] ####[facility] ([facility])[address] [place] [address] Basophils/100 WBC (Bld) 0.6 % Normal 0.0-1.[address] [facility] Comment on above: Performed By: #### L [id number] ####[facility] ([facility])[address] [place] [address] Eosinophils (Bld) [#/Vol] 0.10 10*3/uL Normal 0.00-0.50 [facility] Comment on above: Performed By: #### L [id number] ####[facility] ([facility])[address] [place] [address] Eosinophils/100 WBC (Bld) 1.4 % Normal 0.0-6.0 [facility] Comment on above: Performed By: #### L [id number] ####[facility] ([facility])[address] [place] [address] Erythrocyte distribution width (RBC) [Ratio] 14.2 % Normal 11.5-15.0 [facility] Comment on above: Performed By: #### L [id number] ####[facility] ([facility])[address] [place] [address] ERYTHROCYTE MEAN CORPUSCULAR HEMOGLOBIN CONCENTRATION (G/DL) BY AUTOMATED 32.9 g/dL Normal 32.0-35.0 [facility] Comment on above: Performed By: #### L [id number] ####[facility] ([facility])[address] [place] [address] Hematocrit (Bld) [Volume fraction] 42.9 % Normal 39.0-55.0 [facility] Comment on above: Performed By: #### L [id number] ####[facility] ([facility])[address] [place] [address] Hemoglobin (Bld) [Mass/Vol] 14.1 g/dL Normal 13.0-17.0 [facility] Comment on above: Performed By: #### L [id number] ####[facility] ([facility])[address] [place] [address] Immature granulocytes (Bld) [#/Vol] 0.02 10*3/uL Normal 0.00-0.20 [facility] Comment on above: Performed By: #### L [id number] ####[facility] ([facility])[address] [place] [address] Immature granulocytes/100 WBC (Bld) 0.3 % Normal 0.0-1.0 [facility] Comment on above: Performed By: #### L [id number] ####[facility] ([facility])[address] [place] [address] Lymphocytes (Bld) [#/Vol] 1.89 10*3/uL Normal 1.20-4.00 [facility] Comment on above: Performed By: #### L [id number] ####[facility] ([facility])[address] [place] [address] Lymphocytes/100 WBC (Bld) 26.0 % Normal 20.0-45.0 [facility] Comment on above: Performed By: #### L [id number] ####[facility] ([facility])[address] [place] [address] MCH (RBC) [Entitic mass] 29.9 pg Normal 27.0-33.0 [facility] Comment on above: Performed By: #### L [id number] ####[facility] [place] [address] MCV (RBC) [Entitic vol] 91.1 fL Normal 82.0-98.0 [facility] Comment on above: Performed By: #### L [id number] ####[facility] [place] [address] Monocytes (Bld) [#/Vol] 0.68 10*3/uL Normal 0.10-1.00 [facility] Comment on above: Performed By: #### L [id number] ####[facility] [place], [place] [address] Monocytes/100 WBC (Bld) 9.4 % Normal 5.0-12.0 [facility] Comment on above: Performed By: #### L [id number] ####[facility] [place] [address] Neutrophils (Bld) [#/Vol] 4.54 10*3/uL Normal 1.60-7.60 [facility] Comment on above: Performed By: #### L [id number] ####[facility] ([facility])[address] [place] [address] Neutrophils/100 WBC (Bld) 62.3 % Normal 40.0-72.0 [facility] Comment on above: Performed By: #### L [id number] ####[facility] ([facility])[address] [place], [place] [address] NRBC (PER 100 WBCS) BY AUTOMATED COUNT 0.0 % Normal 0 [facility] Comment on above: Performed By: #### L [id number] ####[facility] ([facility])[address] [place] [address] PLATELETS (10*3/UL) IN BLOOD AUTOMATED COUNT 289 10*3/uL Normal 150-400 [facility] Comment on above: Performed By: #### L [id number] ####[facility] ([facility])[address] [place] [address] RBC (Bld) [#/Vol] 4.71 10*6/uL Normal 4.20-5.70 [facility] Comment on above: Performed By: #### L [id number] ####[facility] ([facility])[address] [place] [address] WBC (Bld) [#/Vol] 7.27 10*3/uL Normal 4.00-10.60 [facility] Comment on above: Performed By: #### L [id number] ####[facility] ([facility])[address] [place] [address] COMPREHENSIVE METABOLIC PANE Sonido 04-27-2024 Albumin [Mass/Vol] 3.9 g/dL Normal 3.5-5.7 [facility] Comment on above: Performed By: #### L [id number] ####[facility] [place] [address] ALP [Catalytic activity/Vol] 118 U/L High 34-104 [facility] Comment on above: Performed By: #### L [id number] ####[facility] [facility] [place] [address] ALT [Catalytic activity/Vol] 16 U/L Normal 7-52 [facility] Comment on above: Performed By: #### L [id number] ####[facility] [place] [address] Anion gap [Moles/Vol] 13 mmol/L Normal 7-20 [facility] Comment on above: Performed By: #### L [id number] ####[facility] ([facility] [place] [address] AST [Catalytic activity/Vol] 16 U/L Normal 13-39 [facility] Comment on above: Performed By: #### L [id number] ####[facility] ([facility])[address] [place] [address] Bilirubin [Mass/Vol] 0.5 mg/dL Normal 0.3-1.0 [facility] Comment on above: Performed By: #### L [id number] ####[facility] ([facility])[address] [place] [address] Calcium [Mass/Vol] 10.2 mg/dL Normal 8.6-10.3 [facility] Comment on above: Performed By: #### L [id number] ####[facility] ([facility])[address] [place] [address] Chloride [Moles/Vol] 104 mmol/L Normal 98-107 [facility] Comment on above: Performed By: #### L [id number] ####[facility] ([facility])[address] [place] [address] CO2 [Moles/Vol] 25 mmol/L Normal 21-31 [facility] Comment on above: Performed By: #### L [id number] ####[facility] ([facility])[address] [place] [address] Creatinine [Mass/Vol] 1.87 mg/dL High 0.70-1.30 [facility] Comment on above: Performed By: #### L [id number] ####[facility] ([facility])[address] [place] [address] GLOMERULAR FILTRATION RATE ML/MIN/1.73 SQ M.PREDICTED 39.2 mL/min/1.73m*2 Low >60.0 [facility] Comment on above: Result Comment: [facility]???s estimated glomerular filtration rate (eGFR) will no [...] of individuals. Performed By: #### L [id number] ####[facility] ([facility])[address] [place] [address] Glucose [Mass/Vol] 143 mg/dL High 70-100 [facility] Comment on above: Performed By: #### L [id number] ####[facility] ([facility])[address] [place] [address] Potassium [Moles/Vol] 4.8 mmol/L Normal 3.5-5.1 [facility] Comment on above: Performed By: #### L [id number] ####[facility] ([facility])[address] [place] [address] Protein [Mass/Vol] 7.7 g/dL Normal 6.0-8.3 [facility] Comment on above: Performed By: #### L [id number] ####[facility] ([facility])[address] [place] [address] Sodium [Moles/Vol] 137 mmol/L Normal 136-145 [facility] Comment on above: Performed By: #### L [id number] ####[facility] ([facility])[address] [place] [address] Urea nitrogen [Mass/Vol] 27 mg/dL High 7-25 [facility] Comment on above: Performed By: #### L [id number] ####[facility] ([facility])[address] [place] [address] UREA NITROGEN/CREATININE (MASS RATIO) IN SER/PLAS 14.4 [facility] Comment on above: Performed By: #### L [id number] ####[facility] ([facility])[address] [place] [address] Labon 04-27-2024 Lab Normal [facility] MAGNESIUMon 04-27-2024 Magnesium [Mass/Vol] 1.9 mg/dL Normal 1.9-2.7 [facility] Comment on above: Performed By: #### L [id number] ####[facility] [place] [address] PHOSPHORUSon 04-27-2024 Magnesium [Mass/Vol] 3.1 mg/dL Normal 2.5-5.0 [facility] Comment on above: Performed By: #### L [id number] ####[facility] ([facility])[address] [place] [address] T3, FREEon 04-27-2024 TRIIODOTHYRONINE (T3) FREE (PG/ML) IN SER/PLAS 2.8 pg/mL Normal 2.5-3.9 [facility] Comment on above: Performed By: #### L [id number] ####[facility] ([facility])[place] [address] T4, FREEon 04-27-2024 THYROXINE (T4) FREE (NG/DL) IN SER/PLAS 0.73 ng/dL Normal 0.71-1.85 [facility] Comment on above: Performed By: #### L [id number] ####[facility] ([facility])[address] [place] [address] TSHon 04-27-2024 THYROTROPIN (MIU/L) IN SER/PLAS BY DETECTION LIMIT <= 0.05 MIU/L 0.75 mIU/L Normal 0.34-5.60 [facility] Comment on above: Performed By: #### L [id number] ####[facility] ([facility])[address] [place] [address] CBC WITH AUTO DIFFERENTIALon 04-04-2024 Basophils (Bld) [#/Vol] 0.05 10*3/uL Normal 0.00-0.20 [facility] Comment on above: Performed By: #### L [id number] ####[facility] ([facility])[address] [place] [address] Basophils/100 WBC (Bld) 0.7 % Normal 0.0-1.0 [facility] Comment on above: Performed By: #### L [id number] ####[facility] ([facility])[address] [place] [address] Eosinophils (Bld) [#/Vol] 0.14 10*3/uL Normal 0.00-0.50 [facility] Comment on above: Performed By: #### L [id number] ####[facility] ([facility])[address] [place] [address] Eosinophils/100 WBC (Bld) 2.0 % Normal 0.0-6.0 [facility] Comment on above: Performed By: #### L [id number] ####[facility] ([facility])[address] [place] [address] Erythrocyte distribution width (RBC) [Ratio] 14.3 % Normal 11.5-15.0 [facility] Comment on above: Performed By: #### L [id number] ####[facility] ([facility])[address] [place] [address] ERYTHROCYTE MEAN CORPUSCULAR HEMOGLOBIN CONCENTRATION (G/DL) BY AUTOMATED 33.4 g/dL Normal 32.0-35.0 [facility] Comment on above: Performed By: #### L [id number] ####[facility] ([facility])[address] [place] [address] Hematocrit (Bld) [Volume fraction] 40.7 % Normal 39.0-55.0 [facility] Comment on above: Performed By: #### L [id number] ####[facility] ([facility])[address] [place] [address] Hemoglobin (Bld) [Mass/Vol] 13.6 g/dL Normal 13.0-17.0 [facility] Comment on above: Performed By: #### L [id number] ####[facility] ([facility])[address] [place] [address] Immature granulocytes (Bld) [#/Vol] 0.02 10*3/uL Normal 0.00-0.20 [facility] Comment on above: Performed By: #### L [id number] ####[facility] ([facility])[address] [place] [address] Immature granulocytes/100 WBC (Bld) 0.3 % Normal 0.0-1.0 [facility] Comment on above: Performed By: #### L [id number] ####[facility] ([facility])[address] [place] [address] Lymphocytes (Bld) [#/Vol] 1.70 10*3/uL Normal 1.20-4.00 [facility] Comment on above: Performed By: #### L [id number] ####[facility] ([facility])[address] [place] [address] Lymphocytes/100 WBC (Bld) 24.0 % Normal 20.0-45.0 [facility] Comment on above: Performed By: #### L [id number] ####[facility] ([facility])[address] [place] [address] MCH (RBC) [Entitic mass] 29.6 pg Normal 27.0-33.0 [facility] Comment on above: Performed By: #### L [id number] ####[facility] ([facility])[address] [place] [address] MCV (RBC) [Entitic vol] 88.7 fL Normal 82.0-98.0 [facility] Comment on above: Performed By: #### L [id number] ####[facility] ([facility])[address] [place] [address] Monocytes (Bld) [#/Vol] 0.55 10*3/uL Normal 0.10-1.00 [facility] Comment on above: Performed By: #### L [id number] ####[facility] ([facility])[address] [place] [address] Monocytes/100 WBC (Bld) 7.8 % Normal 5.0-12.0 [facility] Comment on above: Performed By: #### L [id number] ####[facility] ([facility])[address] [place] [address] Neutrophils (Bld) [#/Vol] 4.63 10*3/uL Normal 1.60-7.60 [facility] Comment on above: Performed By: #### L [id number] ####[facility] ([facility])[address] [place] [address] Neutrophils/100 WBC (Bld) 65.2 % Normal 40.0-72.0 [facility] Comment on above: Performed By: #### L [id number] ####[facility] ([facility])[address] [place] [address] NRBC (PER 100 WBCS) BY AUTOMATED COUNT 0.0 % Normal 0 [facility] Comment on above: Performed By: #### L [id number] ####[facility] ([facility])[address] [place] [address] PLATELETS (10*3/UL) IN BLOOD AUTOMATED COUNT 320 10*3/uL Normal 150-400 [facility] Comment on above: Performed By: #### L [id number] ####[facility] ([facility])[address] [place] [address] RBC (Bld) [#/Vol] 4.59 10*6/uL Normal 4.20-5.70 [facility] Comment on above: Performed By: #### L [id number] ####[facility] ([facility])[address] [place] [address] WBC (Bld) [#/Vol] 7.09 10*3/uL Normal 4.00-10.60 [facility] Comment on above: Performed By: #### L [id number] ####[facility] ([facility] [place] [address] COMPREHENSIVE METABOLIC PANE Sonido 04-04-2024 Albumin [Mass/Vol] 4.1 g/dL Normal 3.5-5.7 [facility] Comment on above: Performed By: #### L [id number] ####[facility] ([facility])[address] [place] [address] ALP [Catalytic activity/Vol] 104 U/L Normal 34-104 [facility] Comment on above: Performed By: #### L [id number] ####[facility] ([facility])[address] [place] [address] ALT [Catalytic activity/Vol] 13 U/L Normal 7-52 [facility] Comment on above: Performed By: #### L [id number] ####[facility] ([facility] [place] [address] Anion gap [Moles/Vol] 14 mmol/L Normal 7-20 [facility] Comment on above: Performed By: #### L [id number] ####[facility] ([facility])[address] [place] [address] AST [Catalytic activity/Vol] 16 U/L Normal 13-39 [facility] Comment on above: Performed By: #### L [id number] ####[facility] ([facility])[address] [place] [address] Bilirubin [Mass/Vol] 0.7 mg/dL Normal 0.3-1.0 [facility] Comment on above: Performed By: #### L [id number] ####[facility] ([facility])[address] [place] [address] Calcium [Mass/Vol] 10.2 mg/dL Normal 8.6-10.3 [facility] Comment on above: Performed By: #### L [id number] ####[facility] ([facility])[address] [place] [address] Chloride [Moles/Vol] 104 mmol/L Normal 98-107 [facility] Comment on above: Performed By: #### L [id number] ####[facility] ([facility])[address] [place] [address] CO2 [Moles/Vol] 22 mmol/L Normal 21-31 [facility] Comment on above: Performed By: #### L [id number] ####[facility] ([facility])[address] [place] [address] Creatinine [Mass/Vol] 1.83 mg/dL High 0.70-1.30 [facility] Comment on above: Performed By: #### L [id number] ####[facility] ([facility])[address] [place] [address] GLOMERULAR FILTRATION RATE ML/MIN/1.73 SQ M.PREDICTED 40.2 mL/min/1.73m*2 Low >60.0 [facility] Comment on above: Result Comment: [facility]???s estimated glomerular filtration rate (eGFR) will no [...] of individuals. Performed By: #### L [id number] ####[facility] ([facility])[address] [place] [address] Glucose [Mass/Vol] 147 mg/dL High 70-100 [facility] Comment on above: Performed By: #### L [id number] ####[facility] ([facility])[address] [place] [address] Potassium [Moles/Vol] 4.8 mmol/L Normal 3.5-5.1 [facility] Comment on above: Performed By: #### L [id number] ####[facility] ([facility])[address] [place] [address] Protein [Mass/Vol] 8.0 g/dL Normal 6.0-8.3 [facility] Comment on above: Performed By: #### L [id number] ####[facility] ([facility])[address] [place] [address] Sodium [Moles/Vol] 135 mmol/L Low 136-145 [facility] Comment on above: Performed By: #### L [id number] ####[facility] ([facility])[address] [place] [address] Urea nitrogen [Mass/Vol] 25 mg/dL Normal 7-25 [facility] Comment on above: Performed By: #### L [id number] ####[facility] ([facility])[address] [place] [address] UREA NITROGEN/CREATININE (MASS RATIO) IN SER/PLAS 13.7 Normal [facility] Comment on above: Performed By: #### L [id number] ####[facility] ([facility])[address] [place] [address] T3, FREEon 04-04-2024 TRIIODOTHYRONINE (T3) FREE (PG/ML) IN SER/PLAS 3.0 pg/mL Normal 2.5-3.9 [facility] Comment on above: Performed By: #### L [id number] ####[facility] ([facility])[address] [place] [address] T4, FREEon 04-04-2024 THYROXINE (T4) FREE (NG/DL) IN SER/PLAS 1.05 ng/dL Normal 0.71-1.85 [facility] Comment on above: Performed By: #### L [id number] ####[facility] ([facility])[address] [place] [address] TSHon 04-04-2024 THYROTROPIN (MIU/L) IN SER/PLAS BY DETECTION LIMIT <= 0.05 MIU/L 0.66 mIU/L Normal 0.34-5.60 [facility] Comment on above: Performed By: #### L [id number] ####[facility] ([facility])[address] [place] [address] [place] ABDOMEN PELVIS WO IV CONT RASTon 03-27-2024 CT ABDOMEN PELVIS WO IV CONTRAST Invalid Interpretation Code [facility] CBC WITH AUTO DIFFERENTIALon 03-16-2024 Basophils (Bld) [#/Vol] 0.05 10*3/uL Normal 0.00-0.20 [facility] Comment on above: Performed By: #### L [id number] ####[facility] ([facility])[address] [place] [address] Basophils/100 WBC (Bld) 0.6 % Normal 0.0-1.[address] [facility] Comment on above: Performed By: #### L [id number] ####[facility] ([facility])[address] [place] [address] Eosinophils (Bld) [#/Vol] 0.11 10*3/uL Normal 0.00-0.50 [facility] Comment on above: Performed By: #### L [id number] ####[facility] ([facility])[address] [place] [address] Eosinophils/100 WBC (Bld) 1.4 % Normal 0.0-6.0 [facility] Comment on above: Performed By: #### L [id number] ####[facility] ([facility]ER)[address] [place] [address] Erythrocyte distribution width (RBC) [Ratio] 14.5 % Normal 11.5-15.0 [facility] Comment on above: Performed By: #### L [id number] ####[facility] ([facility])[address] [place] [address] ERYTHROCYTE MEAN CORPUSCULAR HEMOGLOBIN CONCENTRATION (G/DL) BY AUTOMATED 33.5 g/dL Normal 32.0-35.0 [facility] Comment on above: Performed By: #### L [id number] ####[facility] ([facility])[address] [place] [address] Hematocrit (Bld) [Volume fraction] 40.9 % Normal 39.0-55.0 [facility] Comment on above: Performed By: #### L [id number] ####[facility] (BE[facility])[address] [place] [address] Hemoglobin (Bld) [Mass/Vol] 13.7 g/dL Normal 13.0-17.0 [facility] Comment on above: Performed By: #### L [id number] ####[facility] ([facility])[address] [place] [address] Immature granulocytes (Bld) [#/Vol] 0.03 10*3/uL Normal 0.00-0.20 [facility] Comment on above: Performed By: #### L [id number] ####[facility] ([facility])[address] [place] [address] Immature granulocytes/100 WBC (Bld) 0.4 % Normal 0.0-1.0 [facility] Comment on above: Performed By: #### L [id number] ####[facility] (BE[facility])[address] [place] [address] Lymphocytes (Bld) [#/Vol] 1.53 10*3/uL Normal 1.20-4.00 [facility] Comment on above: Performed By: #### L [id number] ####[facility] (BE[facility]ER)[address] [place] [address] Lymphocytes/100 WBC (Bld) 19.9 % Low 20.0-45.0 [facility] Comment on above: Performed By: #### L [id number] ####[facility] (BE[facility]ER)[address] [place] [address] MCH (RBC) [Entitic mass] 30.0 pg Normal 27.0-33.0 [facility] Comment on above: Performed By: #### L [id number] ####[facility] (BE[facility]ER)[address] [place] [address] MCV (RBC) [Entitic vol] 89.7 fL Normal 82.0-98.0 [facility] Comment on above: Performed By: #### L [id number] ####[facility] (BE[facility])[address] [place] [address] Monocytes (Bld) [#/Vol] 0.63 10*3/uL Normal 0.10-1.00 [facility] Comment on above: Performed By: #### L [id number] ####[facility] (BE[facility]ER)[address] [place] [address] Monocytes/100 WBC (Bld) 8.2 % Normal 5.0-12.0 [facility] Comment on above: Performed By: #### L [id number] ####[facility] [place] [address] Neutrophils (Bld) [#/Vol] 5.35 10*3/uL Normal 1.60-7.60 [facility] Comment on above: Performed By: #### L [id number] ####[facility] ([facility])[address] [place] [address] Neutrophils/100 WBC (Bld) 69.5 % Normal 40.0-72.0 [facility] Comment on above: Performed By: #### L [id number] ####[facility] ([facility])[address] [place] [address] NRBC (PER 100 WBCS) BY AUTOMATED COUNT 0.0 % Normal 0 [facility] Comment on above: Performed By: #### L [id number] ####[facility] ([facility])[address] [place] [address] PLATELETS (10*3/UL) IN BLOOD AUTOMATED COUNT 274 10*3/uL Normal 150-400 [facility] Comment on above: Performed By: #### L [id number] ####[facility] ([facility] [place] [address] RBC (Bld) [#/Vol] 4.56 10*6/uL Normal 4.20-5.70 [facility] Comment on above: Performed By: #### L [id number] ####[facility] ([facility] [place] [address] WBC (Bld) [#/Vol] 7.70 10*3/uL Normal 4.00-10.60 [facility] Comment on above: Performed By: #### L [id number] ####[facility] (BEAKER)[address] [place] [address] COMPREHENSIVE METABOLIC PANE Sonido 03-16-2024 Albumin [Mass/Vol] 4.0 g/dL Normal 3.5-5.7 [facility] Comment on above: Performed By: #### L [id number] ####[facility] ([facility])[address] [place] [address] ALP [Catalytic activity/Vol] 107 U/L High 34-104 [facility] Comment on above: Performed By: #### L [id number] ####[facility] ([facility])[address] [place] [address] ALT [Catalytic activity/Vol] 13 U/L Normal 7-52 [facility] Comment on above: Performed By: #### L [id number] ####[facility] ([facility])[address] [place] [address] Anion gap [Moles/Vol] 13 mmol/L Normal 7-20 [facility] Comment on above: Performed By: #### L [id number] ####[facility] ([facility])[address] [place] [address] AST [Catalytic activity/Vol] 15 U/L Normal 13-39 [facility] Comment on above: Performed By: #### L [id number] ####[facility] ([facility])[address] [place] [address] Bilirubin [Mass/Vol] 0.7 mg/dL Normal 0.3-1.0 [facility] Comment on above: Performed By: #### L [id number] ####[facility] ([facility])[address] [place] [address] Calcium [Mass/Vol] 9.9 mg/dL Normal 8.6-10.3 [facility] Comment on above: Performed By: #### L [id number] ####[facility] ([facility])[address] [place] [address] Chloride [Moles/Vol] 103 mmol/L Normal 98-107 [facility] Comment on above: Performed By: #### L [id number] ####[facility] ([facility])[address] [place] [address] CO2 [Moles/Vol] 22 mmol/L Normal 21-31 [facility] Comment on above: Performed By: #### L [id number] ####[facility] ([facility])[address] [place] [address] Creatinine [Mass/Vol] 1.84 mg/dL High 0.70-1.30 [facility] Comment on above: Performed By: #### L [id number] ####[facility] ([facility])[address] [place] [address] GLOMERULAR FILTRATION RATE ML/MIN/1.73 SQ M.PREDICTED 39.9 mL/min/1.73m*2 Low >60.0 [facility] Comment on above: Result Comment: [facility]???s estimated glomerular filtration rate (eGFR) will no [...] of individuals. Performed By: #### L [id number] ####[facility] ([facility])[address] [place] [address] Glucose [Mass/Vol] 294 mg/dL High 70-100 [facility] Comment on above: Performed By: #### L [id number] ####[facility] ([facility])[address] [place] [address] Potassium [Moles/Vol] 4.7 mmol/L Normal 3.5-5.1 [facility] Comment on above: Performed By: #### L [id number] ####[facility] ([facility])[address] [place] [address] Protein [Mass/Vol] 7.5 g/dL Normal 6.0-8.3 [facility] Comment on above: Performed By: #### L [id number] ####[facility] [place] [address] Sodium [Moles/Vol] 133 mmol/L Low 136-145 [facility] Comment on above: Performed By: #### L [id number] ####[facility] [place] [address] Urea nitrogen [Mass/Vol] 23 mg/dL Normal 7-25 [facility] Comment on above: Performed By: #### L [id number] ####[facility] ([facility])[address] [place] [address] UREA NITROGEN/CREATININE (MASS RATIO) IN SER/PLAS 12.5 Normal [facility] Comment on above: Performed By: #### L [id number] ####[facility] ([facility])[address] [place] [address] HEMOGLOBIN A1Con 03-16-2024 Glucose [Mass/Vol] 209 mg/dL Normal [facility] Comment on above: Performed By: #### L [id number] ####[facility] ([facility])[address] [place] [address] HbA1c (Bld) [Mass fraction] 8.9 % High 4.0-6.0 [facility] Comment on above: Performed By: #### L [id number] ####[facility] ([facility])[address] [place] [address] Labon 03-16-2024 Lab Normal [facility] Orders Onlyon 03-16-2024 Orders Only Normal [facility] T3, FREEon 03-16-2024 TRIIODOTHYRONINE (T3) FREE (PG/ML) IN SER/PLAS 3.2 pg/mL Normal 2.5-3.9 [facility] Comment on above: Performed By: #### L [id number] ####[facility] ([facility] [place] [address] T4, FREEon 03-16-2024 THYROXINE (T4) FREE (NG/DL) IN SER/PLAS 0.77 ng/dL Normal 0.71-1.85 [facility] Comment on above: Performed By: #### L [id number] ####[facility] ([facility])[address] [place] [address] TSHon 03-16-2024 THYROTROPIN (MIU/L) IN SER/PLAS BY DETECTION LIMIT <= 0.05 MIU/L 0.81 mIU/L Normal 0.34-5.60 [facility] Comment on above: Performed By: #### L [id number] ####[facility] ([facility])[address] [place] [address] Follow-Upon 03-07-2024 Follow-Up Normal [facility] CBC WITH AUTO DIFFERENTIALon 02-25-2024 Basophils (Bld) [#/Vol] 0.06 10*3/uL Normal 0.00-0.20 [facility] Comment on above: Performed By: #### L [id number] ####[facility] ([facility])[address] [place] [address] Basophils/100 WBC (Bld) 0.8 % Normal 0.0-1.[address] [facility] Comment on above: Performed By: #### L [id number] ####[facility] ([facility])[address] [place] [address] Eosinophils (Bld) [#/Vol] 0.20 10*3/uL Normal 0.00-0.50 [facility] Comment on above: Performed By: #### L [id number] ####[facility] ([facility])[address] [place] [address] Eosinophils/100 WBC (Bld) 2.7 % Normal 0.0-6.0 [facility] Comment on above: Performed By: #### L [id number] ####[facility] ([facility])[address] [place] [address] Erythrocyte distribution width (RBC) [Ratio] 15.2 % High 11.5-15.0 [facility] Healthcare Comment on above: Performed By: #### L [id number] ####[facility] ([facility]AK[facility])[address] [place] [address] ERYTHROCYTE MEAN CORPUSCULAR HEMOGLOBIN CONCENTRATION (G/DL) BY AUTOMATED 33.4 g/dL Normal 32.0-35.0 [facility] Comment on above: Performed By: #### L [id number] ####[facility] ([facility]AK[facility])[address] [place] [address] Hematocrit (Bld) [Volume fraction] 38.6 % Low 39.0-55.0 [facility] Comment on above: Performed By: #### L [id number] ####[facility] ([facility]AK[facility])[address] [place] [address] Hemoglobin (Bld) [Mass/Vol] 12.9 g/dL Low 13.0-17.0 [facility] Comment on above: Performed By: #### L [id number] ####[facility] ([facility]ER)[address] [place] [address] Immature granulocytes (Bld) [#/Vol] 0.01 10*3/uL Normal 0.00-0.20 [facility] Comment on above: Performed By: #### L [id number] ####[facility] (BEAKER)[address] [place] [address] Immature granulocytes/100 WBC (Bld) 0.1 % Normal 0.0-1.0 [facility] Comment on above: Performed By: #### L [id number] ####[facility] (BEAKER)[address] [place] [address] Lymphocytes (Bld) [#/Vol] 1.82 10*3/uL Normal 1.20-4.00 [facility] Comment on above: Performed By: #### L [id number] ####[facility] (BEAKER)[address] [place] [address] Lymphocytes/100 WBC (Bld) 24.5 % Normal 20.0-45.0 [facility] Comment on above: Performed By: #### L [id number] ####[facility] (BEAKER)[address] [place] [address] MCH (RBC) [Entitic mass] 30.3 pg Normal 27.0-33.0 [facility] Comment on above: Performed By: #### L [id number] ####[facility] (BEAKER)[address] [place] [address] MCV (RBC) [Entitic vol] 90.6 fL Normal 82.0-98.0 [facility] Comment on above: Performed By: #### L [id number] ####[facility] ([facility])[address] [place] [address] Monocytes (Bld) [#/Vol] 0.56 10*3/uL Normal 0.10-1.00 [facility] Comment on above: Performed By: #### L [id number] ####[facility] ([facility])[address] [place], [place] [address] Monocytes/100 WBC (Bld) 7.5 % Normal 5.0-12.0 [facility] Comment on above: Performed By: #### L [id number] ####[facility] ([facility])[address] [place] [address] Neutrophils (Bld) [#/Vol] 4.77 10*3/uL Normal 1.60-7.60 [facility] Comment on above: Performed By: #### L [id number] ####[facility] ([facility])[address] [place] [address] Neutrophils/100 WBC (Bld) 64.4 % Normal 40.0-72.0 [facility] Comment on above: Performed By: #### L [id number] ####[facility] (BEAKER)[address] [place] [address] NRBC (PER 100 WBCS) BY AUTOMATED COUNT 0.0 % Normal 0 [facility] Comment on above: Performed By: #### L [id number] ####[facility] ([facility]AKER)[address] [place] [address] PLATELETS (10*3/UL) IN BLOOD AUTOMATED COUNT 251 10*3/uL Normal 150-400 [facility] Comment on above: Performed By: #### L [id number] ####[facility] ([facility])[address] [place] [address] RBC (Bld) [#/Vol] 4.26 10*6/uL Normal 4.20-5.70 [facility] Comment on above: Performed By: #### L [id number] ####[facility] ([facility])[address] [place] [address] WBC (Bld) [#/Vol] 7.42 10*3/uL Normal 4.00-10.60 [facility] Comment on above: Performed By: #### L [id number] ####[facility] ([facility])[address] [place] [address] COMPREHENSIVE METABOLIC PANE Sonido 02-25-2024 Albumin [Mass/Vol] 3.9 g/dL Normal 3.5-5.7 [facility] Comment on above: Performed By: #### L [id number] ####[facility] ([facility])[address] [place] [address] ALP [Catalytic activity/Vol] 103 U/L Normal 34-104 [facility] Comment on above: Performed By: #### L [id number] ####[facility] [place] [address] ALT [Catalytic activity/Vol] 14 U/L Normal 7-52 [facility] Comment on above: Performed By: #### L [id number] ####[facility] [place] [address] Anion gap [Moles/Vol] 13 mmol/L Normal 7-20 [facility] Comment on above: Performed By: #### L [id number] ####[facility] [place] [address] AST [Catalytic activity/Vol] 14 U/L Normal 13-39 [facility] Comment on above: Performed By: #### L [id number] ####[facility] ([facility])[address] [place] [address] Bilirubin [Mass/Vol] 0.6 mg/dL Normal 0.3-1.0 [facility] Comment on above: Performed By: #### L [id number] ####[facility] ([facility])[address] [place] [address] Calcium [Mass/Vol] 9.5 mg/dL Normal 8.6-10.3 [facility] Comment on above: Performed By: #### L [id number] ####[facility] ([facility]ER)[address] [place] [address] Chloride [Moles/Vol] 103 mmol/L Normal 98-107 [facility] Comment on above: Performed By: #### L [id number] ####[facility] (BEAKER)[address] [place] [address] CO2 [Moles/Vol] 24 mmol/L Normal 21-31 [facility] Comment on above: Performed By: #### L [id number] ####[facility] (BEAKER)[address] [place] [address] Creatinine [Mass/Vol] 2.05 mg/dL High 0.70-1.30 [facility] Comment on above: Performed By: #### L [id number] ####[facility] (BE[facility]ER)[address] [place] [address] GLOMERULAR FILTRATION RATE ML/MIN/1.73 SQ M.PREDICTED 35.1 mL/min/1.73m*2 Low >60.0 [facility] Comment on above: Result Comment: [facility]???s estimated glomerular filtration rate (eGFR) will no [...] of individuals. Performed By: #### L [id number] ####[facility] ([facility])[address] [place] [address] Glucose [Mass/Vol] 238 mg/dL High 70-100 [facility] Comment on above: Performed By: #### L [id number] ####[facility] ([facility])[address] [place] [address] Potassium [Moles/Vol] 4.7 mmol/L Normal 3.5-5.1 [facility] Comment on above: Performed By: #### L [id number] ####[facility] ([facility])[address] [place] [address] Protein [Mass/Vol] 7.3 g/dL Normal 6.0-8.3 [facility] Comment on above: Performed By: #### L [id number] ####[facility] ([facility])[address] [place] [address] Sodium [Moles/Vol] 135 mmol/L Low 136-145 [facility] Comment on above: Performed By: #### L [id number] ####[facility] ([facility])[address] [place] [address] Urea nitrogen [Mass/Vol] 19 mg/dL Normal 7-25 [facility] Comment on above: Performed By: #### L [id number] ####[facility] ([facility])[address] [place] [address] UREA NITROGEN/CREATININE (MASS RATIO) IN SER/PLAS 9.3 Normal [facility] Comment on above: Performed By: #### L [id number] ####[facility] ([facility])[address] [place] [address] CT CHEST WO IV CONTRASTon CT CHEST WO IV CONTRAST Invalid Interpretation Code [facility] Labon 02-25-2024 Lab Normal [facility] Orders Onlyon 02-25-2024 Orders Only Normal [facility] T3, FREEon 02-25-2024 TRIIODOTHYRONINE (T3) FREE (PG/ML) IN SER/PLAS 3.3 pg/mL Normal 2.5-3.9 [facility] Comment on above: Performed By: #### L [id number] ####[facility] [place] [address] T4, FREEon 02-25-2024 THYROXINE (T4) FREE (NG/DL) IN SER/PLAS 0.76 ng/dL Normal 0.71-1.85 [facility] Comment on above: Performed By: #### L [id number] ####[facility] ([facility])[address] [place] [address] TSHon 02-25-2024 THYROTROPIN (MIU/L) IN SER/PLAS BY DETECTION LIMIT <= 0.05 MIU/L 0.84 mIU/L Normal 0.34-5.60 [facility] Comment on above: Performed By: #### L [id number] ####[facility] ([facility])[address] [place] [address] Orders Onlyon 02-21-2024 Orders Only Normal [facility] CBC WITH AUTO DIFFERENTIALon 02-03-2024 Basophils (Bld) [#/Vol] 0.06 10*3/uL Normal 0.00-0.20 [facility] Comment on above: Performed By: #### L [id number] ####[facility] [place] [address] Basophils/100 WBC (Bld) 0.7 % Normal 0.0-1.0 [facility] Comment on above: Performed By: #### L [id number] ####[facility] [place] [address] Eosinophils (Bld) [#/Vol] 0.29 10*3/uL Normal 0.00-0.50 [facility] Comment on above: Performed By: #### L [id number] ####[facility] [place] [address] Eosinophils/100 WBC (Bld) 3.3 % Normal 0.0-6.0 [facility] Comment on above: Performed By: #### L [id number] ####[facility] (BEAKER)[address] [place] [address] Erythrocyte distribution width (RBC) [Ratio] 15.5 % High 11.5-15.0 [facility] Comment on above: Performed By: #### L [id number] ####[facility] (BEAKER)[address] [place] [address] ERYTHROCYTE MEAN CORPUSCULAR HEMOGLOBIN CONCENTRATION (G/DL) BY AUTOMATED 33.0 g/dL Normal 32.0-35.0 [facility] Comment on above: Performed By: #### L [id number] ####[facility] ([facility]ER)[address] [place] [address] Hematocrit (Bld) [Volume fraction] 41.5 % Normal 39.0-55.0 [facility] Comment on above: Performed By: #### L [id number] ####[facility] ([facility]ER)[address] [place] [address] Hemoglobin (Bld) [Mass/Vol] 13.7 g/dL Normal 13.0-17.0 [facility] Comment on above: Performed By: #### L [id number] ####[facility] ([facility]ER)[address] [place] [address] Immature granulocytes (Bld) [#/Vol] 0.03 10*3/uL Normal 0.00-0.20 [facility] Comment on above: Performed By: #### L [id number] ####[facility] ([facility])[address] [place] [address] Immature granulocytes/100 WBC (Bld) 0.3 % Normal 0.0-1.0 [facility] Comment on above: Performed By: #### L [id number] ####[facility] ([facility]ER)[address] [place] [address] Lymphocytes (Bld) [#/Vol] 2.49 10*3/uL Normal 1.20-4.00 [facility] Comment on above: Performed By: #### L [id number] ####[facility] [place] [address] Lymphocytes/100 WBC (Bld) 28.4 % Normal 20.0-45.0 [facility] Comment on above: Performed By: #### L [id number] ####[facility] [place] [address] MCH (RBC) [Entitic mass] 29.5 pg Normal 27.0-33.0 [facility] Comment on above: Performed By: #### L [id number] ####[facility] ([facility] [place] [address] MCV (RBC) [Entitic vol] 89.4 fL Normal 82.0-98.0 [facility] Comment on above: Performed By: #### L [id number] ####[facility] ([facility] [place] [address] Monocytes (Bld) [#/Vol] 0.72 10*3/uL Normal 0.10-1.00 [facility] Comment on above: Performed By: #### L [id number] ####[facility] ([facility]ER)[address] [place] [address] Monocytes/100 WBC (Bld) 8.2 % Normal 5.0-12.0 [facility] Comment on above: Performed By: #### L [id number] ####[facility] ([facility]ER)[address] [place] [address] Neutrophils (Bld) [#/Vol] 5.18 10*3/uL Normal 1.60-7.60 [facility] Comment on above: Performed By: #### L [id number] ####[facility] ([facility])[address] [place] [address] Neutrophils/100 WBC (Bld) 59.1 % Normal 40.0-72.0 [facility] Comment on above: Performed By: #### L [id number] ####[facility] ([facility])[address] [place] [address] NRBC (PER 100 WBCS) BY AUTOMATED COUNT 0.0 % Normal 0 [facility] Comment on above: Performed By: #### L [id number] ####[facility] ([facility])[address] [place] [address] PLATELETS (10*3/UL) IN BLOOD AUTOMATED COUNT 293 10*3/uL Normal 150-400 [facility] Comment on above: Performed By: #### L [id number] ####[facility] ([facility])[address] [place] [address] RBC (Bld) [#/Vol] 4.64 10*6/uL Normal 4.20-5.70 [facility] Comment on above: Performed By: #### L [id number] ####[facility] ([facility])[address] [place] [address] WBC (Bld) [#/Vol] 8.77 10*3/uL Normal 4.00-10.60 [facility] Comment on above: Performed By: #### L [id number] ####[facility] [place] [address] COMPREHENSIVE METABOLIC PANE Sonido 02-03-2024 Albumin [Mass/Vol] 3.9 g/dL Normal 3.5-5.7 [facility] Comment on above: Performed By: #### L [id number] ####[facility] ([facility] [place] [address] ALP [Catalytic activity/Vol] 114 U/L High 34-104 [facility] Comment on above: Performed By: #### L [id number] ####[facility] ([facility])[address] [place] [address] ALT [Catalytic activity/Vol] 16 U/L Normal 7-52 [facility] Comment on above: Performed By: #### L [id number] ####[facility] ([facility]ER)[address] [place] [address] Anion gap [Moles/Vol] 14 mmol/L Normal 7-20 [facility] Comment on above: Performed By: #### L [id number] ####[facility] (BEAKER)[address] [place] [address] AST [Catalytic activity/Vol] 16 U/L Normal 13-39 [facility] Comment on above: Performed By: #### L [id number] ####[facility] ([facility])[address] [place] [address] Bilirubin [Mass/Vol] 0.6 mg/dL Normal 0.3-1.0 [facility] Comment on above: Performed By: #### L [id number] ####[facility] ([facility]ER)[address] [place] [address] Calcium [Mass/Vol] 10.2 mg/dL Normal 8.6-10.3 [facility] Comment on above: Performed By: #### L [id number] ####[facility] (BEAKER)[address] [place] [address] Chloride [Moles/Vol] 101 mmol/L Normal 98-107 [facility] Comment on above: Performed By: #### L [id number] ####[facility] (BEAKER)[address] [place] [address] CO2 [Moles/Vol] 24 mmol/L Normal 21-31 [facility] Comment on above: Performed By: #### L [id number] ####[facility] (BEAKER)[address] [place] [address] Creatinine [Mass/Vol] 1.71 mg/dL High 0.70-1.30 [facility] Comment on above: Performed By: #### L [id number] ####[facility] (BEAKER)[address] [place] [address] GLOMERULAR FILTRATION RATE ML/MIN/1.73 SQ M.PREDICTED 43.6 mL/min/1.73m*2 Low >60.0 [facility] Comment on above: Result Comment: [facility]???s estimated glomerular filtration rate (eGFR) will no [...] of individuals. Performed By: #### L [id number] ####[facility] ([facility])[address] [place] [address] Glucose [Mass/Vol] 202 mg/dL High 70-100 [facility] Comment on above: Performed By: #### L [id number] ####[facility] ([facility])[address] [place] [address] Potassium [Moles/Vol] 4.6 mmol/L Normal 3.5-5.1 [facility] Comment on above: Performed By: #### L [id number] ####[facility] ([facility])[address] [place] [address] Protein [Mass/Vol] 7.3 g/dL Normal 6.0-8.3 [facility] Comment on above: Performed By: #### L [id number] ####[facility] ([facility])[address] [place] [address] Sodium [Moles/Vol] 134 mmol/L Low 136-145 [facility] Comment on above: Performed By: #### L [id number] ####[facility] [place] [address] Urea nitrogen [Mass/Vol] 29 mg/dL High 7-25 [facility] Comment on above: Performed By: #### L [id number] ####[facility] ([facility])[address] [place] [address] UREA NITROGEN/CREATININE (MASS RATIO) IN SER/PLAS 17.0 Normal [facility] Comment on above: Performed By: #### L [id number] ####[facility] ([facility])[address] [place] [address] Labon 02-03-2024 Lab Normal [facility] Orders Onlyon 02-03-2024 Orders Only Normal [facility] T3, FREEon 02-03-2024 TRIIODOTHYRONINE (T3) FREE (PG/ML) IN SER/PLAS 3.3 pg/mL Normal 2.5-3.9 [facility] Comment on above: Performed By: #### L [id number] ####[facility] ([facility])[address] [place] [address] T4, FREEon 02-03-2024 THYROXINE (T4) FREE (NG/DL) IN SER/PLAS 0.70 ng/dL Low 0.71-1.85 [facility] Comment on above: Performed By: #### L [id number] ####[facility] ([facility])[address] [place] [address] TSHon 02-03-2024 THYROTROPIN (MIU/L) IN SER/PLAS BY DETECTION LIMIT <= 0.05 MIU/L 1.01 mIU/L Normal 0.34-5.60 [facility] Comment on above: Performed By: #### L [id number] ####[facility] ([facility])[address] [place] [address] Orders Onlyon 01-19-2024 Orders Only Normal [facility] CBC WITH AUTO DIFFERENTIALon 01-13-2024 Basophils (Bld) [#/Vol] 0.04 10*3/uL Normal 0.00-0.20 [facility] Comment on above: Performed By: #### L [id number] ####[facility] ([facility])[address] [place] [address] Basophils/100 WBC (Bld) 0.7 % Normal 0.0-1.0 [facility] Comment on above: Performed By: #### L [id number] ####[facility] (BE[facility]ER)[address] [place] [address] Eosinophils (Bld) [#/Vol] 0.16 10*3/uL Normal 0.00-0.50 [facility] Comment on above: Performed By: #### L [id number] ####[facility] ([facility]ER)[address] [place] [address] Eosinophils/100 WBC (Bld) 2.7 % Normal 0.0-6.0 [facility] Comment on above: Performed By: #### L [id number] ####[facility] ([facility])[address] [place] [address] Erythrocyte distribution width (RBC) [Ratio] 16.0 % High 11.5-15.0 [facility] Comment on above: Performed By: #### L [id number] ####[facility] ([facility])[address] [place] [address] ERYTHROCYTE MEAN CORPUSCULAR HEMOGLOBIN CONCENTRATION (G/DL) BY AUTOMATED 33.8 g/dL Normal 32.0-35.0 [facility] Comment on above: Performed By: #### L [id number] ####[facility] [place] [address] Hematocrit (Bld) [Volume fraction] 39.9 % Normal 39.0-55.0 [facility] Comment on above: Performed By: #### L [id number] ####[facility] ([facility])[address] [place] [address] Hemoglobin (Bld) [Mass/Vol] 13.5 g/dL Normal 13.0-17.0 [facility] Comment on above: Performed By: #### L [id number] ####[facility] ([facility])[address] [place] [address] Immature granulocytes (Bld) [#/Vol] 0.02 10*3/uL Normal 0.00-0.20 [facility] Comment on above: Performed By: #### L [id number] ####[facility] ([facility])[address] [place] [address] Immature granulocytes/100 WBC (Bld) 0.3 % Normal 0.0-1.0 [facility] Comment on above: Performed By: #### L [id number] ####[facility] (BE[facility]ER)[address] [place] [address] Lymphocytes (Bld) [#/Vol] 1.49 10*3/uL Normal 1.20-4.00 [facility] Comment on above: Performed By: #### L [id number] ####[facility] [place] [address] Lymphocytes/100 WBC (Bld) 24.7 % Normal 20.0-45.0 [facility] Comment on above: Performed By: #### L [id number] ####[facility] [place] [address] MCH (RBC) [Entitic mass] 29.8 pg Normal 27.0-33.0 [facility] Comment on above: Performed By: #### L [id number] ####[facility] ([facility])[address] [place] [address] MCV (RBC) [Entitic vol] 88.1 fL Normal 82.0-98.0 [facility] Comment on above: Performed By: #### L [id number] ####[facility] ([facility]ER)[address] [place] [address] Monocytes (Bld) [#/Vol] 0.53 10*3/uL Normal 0.10-1.00 [facility] Comment on above: Performed By: #### L [id number] ####[facility] ([facility])[address] [place] [address] Monocytes/100 WBC (Bld) 8.8 % Normal 5.0-12.0 [facility] Comment on above: Performed By: #### L [id number] ####[facility] (BE[facility]ER)[address] [place] [address] Neutrophils (Bld) [#/Vol] 3.79 10*3/uL Normal 1.60-7.60 [facility] Comment on above: Performed By: #### L [id number] ####[facility] [place] [address] Neutrophils/100 WBC (Bld) 62.8 % Normal 40.0-72.0 [facility] Comment on above: Performed By: #### L [id number] ####[facility] ([facility])[address] [place] [address] NRBC (PER 100 WBCS) BY AUTOMATED COUNT 0.0 % Normal 0 [facility] Comment on above: Performed By: #### L [id number] ####[facility] ([facility])[address] [address] PLATELETS (10*3/UL) IN BLOOD AUTOMATED COUNT 254 10*3/uL Normal 150-400 [facility] Comment on above: Performed By: #### L [id number] ####[facility] ([facility])[address] [place] [address] RBC (Bld) [#/Vol] 4.53 10*6/uL Normal 4.20-5.70 [facility] Comment on above: Performed By: #### L [id number] ####[facility] ([facility])[address] [place] [address] WBC (Bld) [#/Vol] 6.03 10*3/uL Normal 4.00-10.60 [facility] Comment on above: Performed By: #### L [id number] ####[facility] ([facility])[address] [place] [address] COMPREHENSIVE METABOLIC PANE Sonido 01-13-2024 Albumin [Mass/Vol] 3.9 g/dL Normal 3.5-5.7 [facility] Comment on above: Performed By: #### L [id number] ####[facility] ([facility])[address] [place] [address] ALP [Catalytic activity/Vol] 126 U/L High 34-104 [facility] Comment on above: Performed By: #### L [id number] ####[facility] ([facility])[address] [place] [address] ALT [Catalytic activity/Vol] 19 U/L Normal 7-52 [facility] Comment on above: Performed By: #### L [id number] ####[facility] ([facility])[address] [place] [address] Anion gap [Moles/Vol] 14 mmol/L Normal 7-20 [facility] Comment on above: Performed By: #### L [id number] ####[facility] ([facility])[address] [place] [address] AST [Catalytic activity/Vol] 15 U/L Normal 13-39 [facility] Comment on above: Performed By: #### L [id number] ####[facility] ([facility])[address] [place] [address] Bilirubin [Mass/Vol] 0.6 mg/dL Normal 0.3-1.0 [facility] Comment on above: Performed By: #### L [id number] ####[facility] ([facility])[address] [place] [address] Calcium [Mass/Vol] 9.9 mg/dL Normal 8.6-10.3 [facility] Comment on above: Performed By: #### L [id number] ####[facility] ([facility])[address] [place] [address] Chloride [Moles/Vol] 105 mmol/L Normal 98-107 [facility] Comment on above: Performed By: #### L [id number] ####[facility] ([facility])[address] [place] [address] CO2 [Moles/Vol] 22 mmol/L Normal 21-31 [facility] Comment on above: Performed By: #### L [id number] ####[facility] ([facility])[address] [place] [address] Creatinine [Mass/Vol] 1.78 mg/dL High 0.70-1.30 [facility] Comment on above: Performed By: #### L [id number] ####[facility] ([facility])[address] [address] GLOMERULAR FILTRATION RATE ML/MIN/1.73 SQ M.PREDICTED 41.6 mL/min/1.73m*2 Low >60.0 [facility] Comment on above: Result Comment: [facility] Healthcare???s estimated glomerular filtration rate (eGFR) will no [...] of individuals. Performed By: #### L [id number] ####[facility] ([facility])[address] [place] [address] Glucose [Mass/Vol] 213 mg/dL High 70-100 [facility] Comment on above: Performed By: #### L [id number] ####[facility] ([facility])[address] [place] [address] Potassium [Moles/Vol] 4.8 mmol/L Normal 3.5-5.1 [facility] Comment on above: Performed By: #### L [id number] ####[facility] ([facility])[address] [place] [address] Protein [Mass/Vol] 7.5 g/dL Normal 6.0-8.3 [facility] Comment on above: Performed By: #### L [id number] ####[facility] ([facility])[address] [place] [address] Sodium [Moles/Vol] 136 mmol/L Normal 136-145 [facility] Comment on above: Performed By: #### L [id number] ####[facility] ([facility])[address] [place] [address] Urea nitrogen [Mass/Vol] 29 mg/dL High 7-25 [facility] Comment on above: Performed By: #### L [id number] ####[facility] ([facility])[address] [place] [address] UREA NITROGEN/CREATININE (MASS RATIO) IN SER/PLAS 16.3 Normal [facility] Comment on above: Performed By: #### L [id number] ####[facility] ([facility])[address] [place] [address] Labon 01-13-2024 Lab Normal [facility] T3, FREEon 01-13-2024 TRIIODOTHYRONINE (T3) FREE (PG/ML) IN SER/PLAS 2.8 pg/mL Normal 2.5-3.9 [facility] Comment on above: Performed By: #### L [id number] ####[facility] ([facility])[address] [place] [address] T4, FREEon 01-13-2024 THYROXINE (T4) FREE (NG/DL) IN SER/PLAS 0.79 ng/dL Normal 0.71-1.85 [facility] Comment on above: Performed By: #### L [id number] ####[facility] ([facility])[address] [place] [address] TSHon 01-13-2024 THYROTROPIN (MIU/L) IN SER/PLAS BY DETECTION LIMIT <= 0.05 MIU/L 0.77 mIU/L Normal 0.34-5.60 [facility] Comment on above: Performed By: #### L [id number] ####[facility] ([facility])[address] [place] [address] 29on 12-23-2023 29 Addended by: JEWELL MERINO on: 12/27/2023 02:17 PM Modules accepted: Orders Normal [facility] CBC WITH AUTO DIFFERENTIALon 12-23-2023 Basophils (Bld) [#/Vol] 0.05 10*3/uL Normal 0.00-0.20 [facility] Comment on above: Performed By: #### L [id number] ####[facility] ([facility])[address] [place] [address] Basophils/100 WBC (Bld) 0.7 % Normal 0.0-1.[address] [facility] Comment on above: Performed By: #### L [id number] ####[facility] ([facility])[address] [place] [address] Eosinophils (Bld) [#/Vol] 0.20 10*3/uL Normal 0.00-0.50 [facility] Comment on above: Performed By: #### L [id number] ####[facility] ([facility])[address] [place] [address] Eosinophils/100 WBC (Bld) 2.8 % Normal 0.0-6.0 [facility] Comment on above: Performed By: #### L [id number] ####[facility] ([facility])[address] [place] [address] Erythrocyte distribution width (RBC) [Ratio] 15.0 % Normal 11.5-15.0 [facility] Comment on above: Performed By: #### L [id number] ####[facility] ([facility])[address] [place] [address] ERYTHROCYTE MEAN CORPUSCULAR HEMOGLOBIN CONCENTRATION (G/DL) BY AUTOMATED 33.3 g/dL Normal 32.0-35.0 [facility] Comment on above: Performed By: #### L [id number] ####[facility] ([facility])[address] [place] [address] Hematocrit (Bld) [Volume fraction] 42.4 % Normal 39.0-55.0 [facility] Comment on above: Performed By: #### L [id number] ####[facility] ([facility])[address] [place] [address] Hemoglobin (Bld) [Mass/Vol] 14.1 g/dL Normal 13.0-17.0 [facility] Comment on above: Performed By: #### L [id number] ####[facility] ([facility])[address] [place] [address] Immature granulocytes (Bld) [#/Vol] 0.03 10*3/uL Normal 0.00-0.20 [facility] Comment on above: Performed By: #### L [id number] ####[facility] ([facility])[address] [place] [address] Immature granulocytes/100 WBC (Bld) 0.4 % Normal 0.0-1.0 [facility] Comment on above: Performed By: #### L [id number] ####[facility] ([facility])[address] [place] [address] Lymphocytes (Bld) [#/Vol] 2.25 10*3/uL Normal 1.20-4.00 [facility] Comment on above: Performed By: #### L [id number] ####[facility] ([facility])[address] [place] [address] Lymphocytes/100 WBC (Bld) 31.6 % Normal 20.0-45.0 [facility] Comment on above: Performed By: #### L [id number] ####[facility] ([facility])[address] [place] [address] MCH (RBC) [Entitic mass] 28.8 pg Normal 27.0-33.0 [facility] Comment on above: Performed By: #### L [id number] ####[facility] [place] [address] MCV (RBC) [Entitic vol] 86.5 fL Normal 82.0-98.0 [facility] Comment on above: Performed By: #### L [id number] ####[facility] ([facility])[address] [place] [address] Monocytes (Bld) [#/Vol] 0.59 10*3/uL Normal 0.10-1.00 [facility] Comment on above: Performed By: #### L [id number] ####[facility] ([facility])[address] [place] [address] Monocytes/100 WBC (Bld) 8.3 % Normal 5.0-12.0 [facility] Comment on above: Performed By: #### L [id number] ####[facility] ([facility])[address] [place] [address] Neutrophils (Bld) [#/Vol] 4.00 10*3/uL Normal 1.60-7.60 [facility] Comment on above: Performed By: #### L [id number] ####[facility] ([facility])[address] [place], [place] [address] Neutrophils/100 WBC (Bld) 56.2 % Normal 40.0-72.0 [facility] Comment on above: Performed By: #### L [id number] ####[facility] ([facility])[address] [place], [place] [address] NRBC (PER 100 WBCS) BY AUTOMATED COUNT 0.0 % Normal 0 [facility] Comment on above: Performed By: #### L [id number] ####[facility] ([facility])[address] [place], [place] [address] PLATELETS (10*3/UL) IN BLOOD AUTOMATED COUNT 263 10*3/uL Normal 150-400 [facility] Comment on above: Performed By: #### L [id number] ####[facility] ([facility])[address] [place], [place] [address] RBC (Bld) [#/Vol] 4.90 10*6/uL Normal 4.20-5.70 [facility] Comment on above: Performed By: #### L [id number] ####[facility] ([facility])[address] [place] [address] WBC (Bld) [#/Vol] 7.12 10*3/uL Normal 4.00-10.60 [facility] Comment on above: Performed By: #### L [id number] ####[facility] [place] [address] COMPREHENSIVE METABOLIC PANE Sonido 12-23-2023 Albumin [Mass/Vol] 4.1 g/dL Normal 3.5-5.7 [facility] Comment on above: Performed By: #### L [id number] ####[facility] ([facility])[address] [place] [address] ALP [Catalytic activity/Vol] 136 U/L High 34-104 [facility] Comment on above: Performed By: #### L [id number] ####[facility] [place] [address] ALT [Catalytic activity/Vol] 14 U/L Normal 7-52 [facility] Comment on above: Performed By: #### L [id number] ####[facility] ([facility] [place] [address] Anion gap [Moles/Vol] 11 mmol/L Normal 7-20 [facility] Comment on above: Performed By: #### L [id number] ####[facility] ([facility])[address] [place] [address] AST [Catalytic activity/Vol] 14 U/L Normal 13-39 [facility] Comment on above: Performed By: #### L [id number] ####[facility] [place] [address] Bilirubin [Mass/Vol] 0.6 mg/dL Normal 0.3-1.0 [facility] Comment on above: Performed By: #### L [id number] ####[facility] [place] [address] Calcium [Mass/Vol] 10.5 mg/dL High 8.6-10.3 [facility] Comment on above: Performed By: #### L [id number] ####[facility] ([facility])[address] [place] [address] Chloride [Moles/Vol] 103 mmol/L Normal 98-107 [facility] Comment on above: Performed By: #### L [id number] ####[facility] ([facility])[address] [place] [address] CO2 [Moles/Vol] 26 mmol/L Normal 21-31 [facility] Comment on above: Performed By: #### L [id number] ####[facility] ([facility])[address] [place] [address] Creatinine [Mass/Vol] 1.72 mg/dL High 0.70-1.30 [facility] Comment on above: Performed By: #### L [id number] ####[facility] ([facility])[address] [place] [address] GLOMERULAR FILTRATION RATE ML/MIN/1.73 SQ M.PREDICTED 43.3 mL/min/1.73m*2 Low >60.0 [facility] Comment on above: Result Comment: [facility]???s estimated glomerular filtration rate (eGFR) will no [...] of individuals. Performed By: #### L [id number] ####[facility] ([facility])[address] [place] [address] Glucose [Mass/Vol] 190 mg/dL High 70-100 [facility] Comment on above: Performed By: #### L [id number] ####[facility] ([facility])[address] [place] [address] Potassium [Moles/Vol] 4.7 mmol/L Normal 3.5-5.1 [facility] Comment on above: Performed By: #### L [id number] ####[facility] [place] [address] Protein [Mass/Vol] 7.8 g/dL Normal 6.0-8.3 [facility] Comment on above: Performed By: #### L [id number] ####[facility] ([facility])[address] [place] [address] Sodium [Moles/Vol] 135 mmol/L Low 136-145 [facility] Comment on above: Performed By: #### L [id number] ####[facility] ([facility])[address] [place] [address] Urea nitrogen [Mass/Vol] 30 mg/dL High 7-25 [facility] Comment on above: Performed By: #### L [id number] ####[facility] ([facility])[address] [place] [address] UREA NITROGEN/CREATININE (MASS RATIO) IN SER/PLAS 17.4 Normal [facility] Comment on above: Performed By: #### L [id number] ####[facility] ([facility])[address] [place] [address] CORTISOLon 12-23-2023 CORTISOL (UG/DL) IN SER/PLAS 10.0 ug/dL Normal 6-23 [facility] Comment on above: Order Comment: Obtai n level in the morning prior to starting immunotherapy Performed By: #### L [id number] ####[facility] ([facility])[address] [place] [address] Follow-Upon 12-23-2023 Follow-Up Normal [facility] IMMUNOFIXATION ELECTROPHORES Mohan 12-23-2023 IMMUNOFIXATION ELECTROPHORESIS 1 See attached report. Normal [facility] Comment on above: Result Comment: This is an appended report. These results have been appended to a previously final verified report. Performed By: #### L [id number] ####[facility] ([facility])[address] [place] [address] Magnesium [Mass/Vol] 1540 mg/dL Normal 591-1540 [facility] Comment on above: Performed By: #### L [id number] ####[facility] ([facility])[address] [place] [address] Magnesium [Mass/Vol] 372 mg/dL Normal 60-413 [facility] Comment on above: Performed By: #### L [id number] ####[facility] ([place])[address] [place] [address] Magnesium [Mass/Vol] 87.1 mg/dL Normal 54-285 [facility] Comment on above: Performed By: #### L [id number] ####[facility] ([place])[address] [place] [address] KAPPA / LAMBDA LIGHT CHAINS, FREEon 12-23-2023 IMMUNOGLOBULIN LIGHT CHAINS KAPPA/LAMBDA (MASS RATIO) IN SERUM 1.34 Normal 0.22-1.74 [facility] Comment on above: Result Comment: Test Performed by [employer] [address] [place] [id number] - Released 12/27/2023 19:00 Performed By: #### L [id number] ####[employer] [facility] [id number] [place] [address] IMMUNOGLOBULIN LIGHT CHAINS.KAPPA (MG/DL) IN SERUM 104.0 mg/L High <20.8 [facility] Comment on above: Result Comment: Perf ormed using Dia[employer] reagent on [employer]. Results obtained with different assay methods cannot be used interchangeably. Performed By: #### L [id number] ####[facility] [id number] [place] [address] IMMUNOGLOBULIN LIGHT CHAINS.LAMBDA (MG/DL) IN SERUM 77.7 mg/L High 4.2-27.7 [facility] Comment on above: Result Comment: Perf ormed using [employer] reagent on [employer]. Results obtained with different assay methods cannot be used interchangeably. Performed By: #### L [id number] ####[employer] [id number] [place] [address] Labon 12-23-2023 Lab Normal [facility] Orders Onlyon 12-23-2023 Orders Only Normal [facility] PROTEIN ELECTROPHORESIS, SER UMon 12-23-2023 Protein [Mass/Vol] 7.3 g/dL Normal 6.0-8.3 [facility] Comment on above: Order Comment: Elect ronically signed by Beatriz Dubon MD on 01/03/24 at 5:47 PM. Performed By: #### L [id number] ####[facility] [place] [address] PROTEIN FRACTION (INTERPRETATION) IN SER/PLAS BY ELECTROPHORESIS See attached report Normal [facility] Comment on above: Order Comment: Elect ronically signed by Beatriz Dubon MD on 01/03/24 at 5:47 PM. Performed By: #### L [id number] ####[facility] ([facility])[address] [place] [address] T3, FREEon 12-23-2023 TRIIODOTHYRONINE (T3) FREE (PG/ML) IN SER/PLAS 3.2 pg/mL Normal 2.5-3.9 [facility] Comment on above: Performed By: #### L [id number] ####[facility] ([facility])[address] [place] [address] T4, FREEon 12-23-2023 THYROXINE (T4) FREE (NG/DL) IN SER/PLAS 1.00 ng/dL Normal 0.71-1.85 [facility] Comment on above: Performed By: #### L [id number] ####[facility] ([facility])[address] [place] [address] TSHon 12-23-2023 THYROTROPIN (MIU/L) IN SER/PLAS BY DETECTION LIMIT <= 0.05 MIU/L 0.68 mIU/L Normal 0.34-5.60 [facility] Comment on above: Performed By: #### L [id number] ####[facility] ([facility])[address] [place] [address] Orders Onlyon 12-22-2023 Orders Only Normal [facility] [id number] 12-16-2023 [id number] Normal [facility] ANESon 12-16-2023 ANES Normal [facility] ANES Normal [facility] HPon 12-16-2023 HP Normal [facility] NURSNOTEon 12-16-2023 NURSNOTE Discharge instructio percy discussed with pt and pt's . Stated understanding. Pt does not need prescriptions filled. Normal [facility] OPNOTEon 12-16-2023 OPNOTE Normal [facility] POCT GLUCOSE METER UNSOLICIT ED RESULTSon 12-16-2023 Glucose [Mass/Vol] 183 mg/dL High 70-105 [facility] Comment on above: Order Comment: Waive d Testing in the ED is performed under the ED CLIA certificate #[id number]. Result Comment: dspe ars Performed By: #### L [id number] ####[facility] ([facility])[address] [place] [address] Glucose [Mass/Vol] 186 mg/dL High 70-105 [facility] Comment on above: Order Comment: Waive d Testing in the ED is performed under the ED CLIA certificate #[id number]. Result Comment: msc juan j Performed By: #### L [id number] ####[facility] ([facility])[address] [place] [address] CBCon 12-13-2023 Erythrocyte distribution width (RBC) [Ratio] 14.8 % Normal 11.5-15.0 [facility] Comment on above: Performed By: #### L [id number] ####[facility] ([facility])[address] [place] [address] ERYTHROCYTE MEAN CORPUSCULAR HEMOGLOBIN CONCENTRATION (G/DL) BY AUTOMATED 34.0 g/dL Normal 32.0-35.0 [facility] Comment on above: Performed By: #### L [id number] ####[facility] ([facility])[address] [place] [address] Hematocrit (Bld) [Volume fraction] 40.6 % Normal 39.0-55.0 [facility] Comment on above: Performed By: #### L [id number] ####[facility] ([facility])[address] [place] [address] Hemoglobin (Bld) [Mass/Vol] 13.8 g/dL Normal 13.0-17.0 [facility] Comment on above: Performed By: #### L [id number] ####[facility] [place] [address] MCH (RBC) [Entitic mass] 29.4 pg Normal 27.0-33.0 [facility] Comment on above: Performed By: #### L [id number] ####[facility] [place] [address] MCV (RBC) [Entitic vol] 86.6 fL Normal 82.0-98.0 [facility] Comment on above: Performed By: #### L [id number] ####[facility] [place] [address] PLATELETS (10*3/UL) IN BLOOD AUTOMATED COUNT 231 10*3/uL Normal 150-400 [facility] Comment on above: Performed By: #### L [id number] ####[facility] [place] [address] RBC (Bld) [#/Vol] 4.69 10*6/uL Normal 4.20-5.70 [facility] Comment on above: Performed By: #### L [id number] ####[facility] ([facility] [place] [address] WBC (Bld) [#/Vol] 7.06 10*3/uL Normal 4.00-10.60 [facility] Comment on above: Performed By: #### L [id number] ####[facility] ([facility])[address] [place] [address] COMPREHENSIVE METABOLIC PANE Sonido 12-13-2023 Albumin [Mass/Vol] 4.0 g/dL Normal 3.5-5.7 [facility] Comment on above: Performed By: #### L [id number] ####[facility] ([facility])[address] [place] [address] ALP [Catalytic activity/Vol] 117 U/L High 34-104 [facility] Comment on above: Performed By: #### L [id number] ####[facility] ([facility])[address] [place] [address] ALT [Catalytic activity/Vol] 19 U/L Normal 7-52 [facility] Comment on above: Performed By: #### L [id number] ####[facility] ([facility])[address] [place] [address] Anion gap [Moles/Vol] 11 mmol/L Normal 7-20 [facility] Comment on above: Performed By: #### L [id number] ####[facility] ([facility])[address] [place] [address] AST [Catalytic activity/Vol] 18 U/L Normal 13-39 [facility] Comment on above: Performed By: #### L [id number] ####[facility] ([facility])[address] [place] [address] Bilirubin [Mass/Vol] 0.5 mg/dL Normal 0.3-1.0 [facility] Comment on above: Performed By: #### L [id number] ####[facility] ([facility])[address] [place] [address] Calcium [Mass/Vol] 9.9 mg/dL Normal 8.6-10.3 [facility] Comment on above: Performed By: #### L [id number] ####[facility] ([facility])[address] [place] [address] Chloride [Moles/Vol] 102 mmol/L Normal 98-107 [facility] Comment on above: Performed By: #### L [id number] ####[facility] [place] [address] CO2 [Moles/Vol] 25 mmol/L Normal 21-31 [facility] Comment on above: Performed By: #### L [id number] ####[facility] ([facility])[address] [place] [address] Creatinine [Mass/Vol] 2.03 mg/dL High 0.70-1.30 [facility] Comment on above: Performed By: #### L [id number] ####[facility] ([facility])[address] [place] [address] GLOMERULAR FILTRATION RATE ML/MIN/1.73 SQ M.PREDICTED 35.5 mL/min/1.73m*2 Low >60.0 [facility] Comment on above: Result Comment: [facility]???s estimated glomerular filtration rate (eGFR) will no [...] of individuals. Performed By: #### L [id number] ####[facility] ([facility])[address] [place] [address] Glucose [Mass/Vol] 264 mg/dL High 70-100 [facility] Comment on above: Performed By: #### L [id number] ####[facility] ([facility])[address] [place] [address] Potassium [Moles/Vol] 4.4 mmol/L Normal 3.5-5.1 [facility] Comment on above: Performed By: #### L [id number] ####[facility] ([facility])[address] [place] [address] Protein [Mass/Vol] 7.4 g/dL Normal 6.0-8.3 [facility] Comment on above: Performed By: #### L [id number] ####[facility] [place] [address] Sodium [Moles/Vol] 134 mmol/L Low 136-145 [facility] Comment on above: Performed By: #### L [id number] ####[facility] ([facility])[address] [place] [address] Urea nitrogen [Mass/Vol] 32 mg/dL High 7-25 [facility] Comment on above: Performed By: #### L [id number] ####[facility] ([facility])[address] [place] [address] UREA NITROGEN/CREATININE (MASS RATIO) IN SER/PLAS 15.8 Normal [facility] Comment on above: Performed By: #### L [id number] ####[facility] ([facility])[address] [place] [address] Labon 12-13-2023 Lab Normal [facility] Orders Onlyon 12-10-2023 Orders Only Normal [facility] [id number] 12-09-2023 [id number] Normal [facility] APTTon 12-09-2023 ACTIVATED PARTIAL THROMBOPLASTIN TIME IN PPP BY COAGULATION ASSAY 35.5 Seconds High 25.0-35.0 [facility] Comment on above: Result Comment: Clin ical significance of the APTT is questionable in the presence of heparin. Performed By: #### L [id number] ####[facility] ([facility])[address] [place] [address] Infusionon 12-09-2023 Infusion Normal [facility] Labon 12-09-2023 Lab Normal [facility] MRSA/MSSA DNA NASALon 2023 MRSA DNA Negative Normal Negative [facility] Comment on above: Order Comment: Testi ng [...] preclude nasal colonization. Performed By: #### L [id number] ####[facility] ([facility])[address] [place] [address] MSSA DNA Positive Abnormal Negative [facility] Comment on above: Order Comment: Adilson russell [...] preclude nasal colonization. Performed By: #### L [id number] ####[facility] ([facility])[address] [place] [address] Orders Onlyon 12-09-2023 Orders Only Normal [facility] PROTIME-INRon 12-09-2023 INR IN PPP BY COAGULATION ASSAY 1.16 High 0.90-1.10 [facility] Comment on above: Result Comment: ACCC P [...] CHEST 1995;[id number]. Performed By: #### L [id number] ####[facility] ([facility])[address] [place] [address] PROTHROMBIN TIME (PT) IN PPP BY COAGULATION ASSAY 14.8 Seconds Normal 12.3-14.8 [facility] Comment on above: Performed By: #### L [id number] ####[facility] ([facility])[address] [place] [address] CBC WITH AUTO DIFFERENTIALon 12-08-2023 Basophils (Bld) [#/Vol] 0.04 10*3/uL Normal 0.00-0.20 [facility] Comment on above: Performed By: #### L [id number] ####[facility] [place] [address] Basophils/100 WBC (Bld) 0.6 % Normal 0.0-1.[address] [facility] Comment on above: Performed By: #### L [id number] ####[facility] ([facility])[address] [place] [address] Eosinophils (Bld) [#/Vol] 0.42 10*3/uL Normal 0.00-0.50 [facility] Comment on above: Performed By: #### L [id number] ####[facility] ([facility])[address] [place] [address] Eosinophils/100 WBC (Bld) 6.0 % Normal 0.0-6.0 [facility] Comment on above: Performed By: #### L [id number] ####[facility] ([facility])[address] [place] [address] Erythrocyte distribution width (RBC) [Ratio] 14.7 % Normal 11.5-15.0 [facility] Comment on above: Performed By: #### L [id number] ####[facility] ([facility])[address] [place] [address] ERYTHROCYTE MEAN CORPUSCULAR HEMOGLOBIN CONCENTRATION (G/DL) BY AUTOMATED 33.5 g/dL Normal 32.0-35.0 [facility] Comment on above: Performed By: #### L [id number] ####[facility] ([facility])[address] [place] [address] Hematocrit (Bld) [Volume fraction] 41.2 % Normal 39.0-55.0 [facility] Healthcare Comment on above: Performed By: #### L [id number] ####[facility] (BEAKER)[address] [place] [address] Hemoglobin (Bld) [Mass/Vol] 13.8 g/dL Normal 13.0-17.0 [facility] Comment on above: Performed By: #### L [id number] ####[facility] (BEAKER)[address] [place] [address] Immature granulocytes (Bld) [#/Vol] 0.02 10*3/uL Normal 0.00-0.20 [facility] Comment on above: Performed By: #### L [id number] ####[facility] [place] [address] Immature granulocytes/100 WBC (Bld) 0.3 % Normal 0.0-1.0 [facility] Comment on above: Performed By: #### L [id number] ####[facility] (BEAKER)[address] [place] [address] Lymphocytes (Bld) [#/Vol] 2.22 10*3/uL Normal 1.20-4.00 [facility] Comment on above: Performed By: #### L [id number] ####[facility] (BEAKER)[address] [place] [address] Lymphocytes/100 WBC (Bld) 31.9 % Normal 20.0-45.0 [facility] Comment on above: Performed By: #### L [id number] ####[facility] (BEAKER)[address] [place] [address] MCH (RBC) [Entitic mass] 28.8 pg Normal 27.0-33.0 [facility] Comment on above: Performed By: #### L [id number] ####[facility] (BEAKER)[address] [place] [address] MCV (RBC) [Entitic vol] 86.0 fL Normal 82.0-98.0 [facility] Comment on above: Performed By: #### L [id number] ####[facility] (BEAKER)[address] [place] [address] Monocytes (Bld) [#/Vol] 0.60 10*3/uL Normal 0.10-1.00 [facility] Comment on above: Performed By: #### L [id number] ####[facility] (BEAKER)[address] [place] [address] Monocytes/100 WBC (Bld) 8.6 % Normal 5.0-12.[address] [facility] Comment on above: Performed By: #### L [id number] ####[facility] (BEAKER)[address] [address] Neutrophils (Bld) [#/Vol] 3.65 10*3/uL Normal 1.60-7.60 [facility] Comment on above: Performed By: #### L [id number] ####[facility] (BEAKER)[address] [place] [address] Neutrophils/100 WBC (Bld) 52.6 % Normal 40.0-72.0 [facility] Comment on above: Performed By: #### L [id number] ####[facility] (BEAKER)[address] [place] [address] NRBC (PER 100 WBCS) BY AUTOMATED COUNT 0.0 % Normal 0 [facility] Comment on above: Performed By: #### L [id number] ####[facility] (BEAKER)[address] [address] PLATELETS (10*3/UL) IN BLOOD AUTOMATED COUNT 233 10*3/uL Normal 150-400 [facility] Comment on above: Performed By: #### L [id number] ####[facility] (BEAKER)[address] [address] RBC (Bld) [#/Vol] 4.79 10*6/uL Normal 4.20-5.70 [facility] Comment on above: Performed By: #### L [id number] ####[facility] [place] [address] WBC (Bld) [#/Vol] 6.95 10*3/uL Normal 4.00-10.60 [facility] Comment on above: Performed By: #### L [id number] ####[facility] ([facility] [place] [address] COMPREHENSIVE METABOLIC PANE Sonido 12-08-2023 Albumin [Mass/Vol] 4.0 g/dL Normal 3.5-5.7 [facility] Comment on above: Performed By: #### L [id number] ####[facility] ([facility])[address] [place] [address] ALP [Catalytic activity/Vol] 94 U/L Normal 34-104 [facility] Comment on above: Performed By: #### L [id number] ####[facility] ([facility])[address] [place] [address] ALT [Catalytic activity/Vol] 13 U/L Normal 7-52 [facility] Comment on above: Performed By: #### L [id number] ####[facility] ([facility] [place] [address] Anion gap [Moles/Vol] 12 mmol/L Normal 7-20 [facility] Comment on above: Performed By: #### L [id number] ####[facility] ([facility])[address] [place] [address] AST [Catalytic activity/Vol] 14 U/L Normal 13-39 [facility] Comment on above: Performed By: #### L [id number] ####[facility] ([facility] [place] [address] Bilirubin [Mass/Vol] 0.5 mg/dL Normal 0.3-1.0 [facility] Comment on above: Performed By: #### L [id number] ####[facility] [place] [address] Calcium [Mass/Vol] 10.1 mg/dL Normal 8.6-10.3 [facility] Comment on above: Performed By: #### L [id number] ####[facility] ([facility])[address] [place] [address] Chloride [Moles/Vol] 102 mmol/L Normal 98-107 [facility] Comment on above: Performed By: #### L [id number] ####[facility] ([facility])[address] [place] [address] CO2 [Moles/Vol] 24 mmol/L Normal 21-31 [facility] Comment on above: Performed By: #### L [id number] ####[facility] ([facility])[address] [place] [address] Creatinine [Mass/Vol] 1.86 mg/dL High 0.70-1.30 [facility] Comment on above: Performed By: #### L [id number] ####[facility] ([facility])[address] [place] [address] GLOMERULAR FILTRATION RATE ML/MIN/1.73 SQ M.PREDICTED 39.4 mL/min/1.73m*2 Low >60.0 [facility] Comment on above: Result Comment: [facility]???s estimated glomerular filtration rate (eGFR) will no [...] of individuals. Performed By: #### L [id number] ####[facility] [place] [address] Glucose [Mass/Vol] 195 mg/dL High 70-100 [facility] Comment on above: Performed By: #### L [id number] ####[facility] ([facility])[address] [place] [address] Potassium [Moles/Vol] 5.1 mmol/L Normal 3.5-5.1 [facility] Comment on above: Performed By: #### L [id number] ####[facility] ([facility] [place] [address] Protein [Mass/Vol] 7.4 g/dL Normal 6.0-8.3 [facility] Comment on above: Performed By: #### L [id number] ####[facility] ([facility])[address] [place] [address] Sodium [Moles/Vol] 133 mmol/L Low 136-145 [facility] Comment on above: Performed By: #### L [id number] ####[facility] ([facility])[address] [place] [address] Urea nitrogen [Mass/Vol] 28 mg/dL High 7-25 [facility] Comment on above: Performed By: #### L [id number] ####[facility] ([facility])[address] [place] [address] UREA NITROGEN/CREATININE (MASS RATIO) IN SER/PLAS 15.1 Normal [facility] Comment on above: Performed By: #### L [id number] ####[facility] ([facility])[address] [place] [address] Follow-Upon 12-08-2023 Follow-Up Normal [facility] Labon 12-08-2023 Lab Normal [facility] T3, FREEon 12-08-2023 TRIIODOTHYRONINE (T3) FREE (PG/ML) IN SER/PLAS 2.8 pg/mL Normal 2.5-3.9 [facility] Comment on above: Performed By: #### L [id number] ####[facility] ([facility])[address] [place] [address] T4, FREEon 12-08-2023 THYROXINE (T4) FREE (NG/DL) IN SER/PLAS 0.85 ng/dL Normal 0.71-1.85 [facility] Comment on above: Performed By: #### L [id number] ####[facility] (BEAKER)[address] [place] [address] TSHon 12-08-2023 THYROTROPIN (MIU/L) IN SER/PLAS BY DETECTION LIMIT <= 0.05 MIU/L 1.09 mIU/L Normal 0.34-5.60 [facility] Comment on above: Performed By: #### L [id number] ####[facility] [place] [address] Orders Onlyon 12-06-2023 Orders Only [facility] Orders Onlyon 12-02-2023 Orders Only [facility] 37on 11-23-2023 37 Recommend pembrolizu mab (Keytruda) infusion every 3 weeks to begin with and can be switched to every 6 weeks if needed Keytruda can be given through peripheral IV or chemo port. Decision will be made by patient for either/ Return to clinic in 4 weeks [facility] 36on 11-11-2023 36 Pt informed [facility] 30on 11-10-2023 30 [facility] BASIC METABOLIC PANELon 10-19 Anion gap [Moles/Vol] 11 mmol/L Normal 7-20 [facility] Comment on above: Performed By: #### L [id number] ####[facility] (BEAKER)[address] [place] [address] Calcium [Mass/Vol] 9.6 mg/dL Normal 8.6-10.3 [facility] Comment on above: Performed By: #### L [id number] ####[facility] (BEAKER)[address] [place] [address] Chloride [Moles/Vol] 104 mmol/L Normal 98-107 [facility] Comment on above: Performed By: #### L [id number] ####[facility] (BEAKER)[address] [place] [address] CO2 [Moles/Vol] 22 mmol/L Normal 21-31 [facility] Comment on above: Performed By: #### L [id number] ####[facility] ([facility])[address] [place] [address] Creatinine [Mass/Vol] 1.28 mg/dL Normal 0.70-1.30 [facility] Comment on above: Performed By: #### L [id number] ####[facility] ([facility])[address] [place] [address] GLOMERULAR FILTRATION RATE ML/MIN/1.73 SQ M.PREDICTED 61.7 mL/min/1.73m*2 Normal >60.0 [facility] Comment on above: Result Comment: [facility]???s estimated glomerular filtration rate (eGFR) will no [...] of individuals. Performed By: #### L [id number] ####[facility] ([facility])[address] [place] [address] Glucose [Mass/Vol] 182 mg/dL High 70-100 [facility] Comment on above: Performed By: #### L [id number] ####[facility] ([facility])[address] [place] [address] Potassium [Moles/Vol] 4.7 mmol/L Normal 3.5-5.1 [facility] Comment on above: Result Comment: M-CH EMISTRY SPECIMEN MODERATELY HEMOLYZED RESULTS MAY NOT BE ACCURATE Performed By: #### L [id number] ####[facility] ([facility])[address] [place] [address] Sodium [Moles/Vol] 132 mmol/L Low 136-145 [facility] Comment on above: Performed By: #### L [id number] ####[facility] (BEAKER)[address] [address] Urea nitrogen [Mass/Vol] 16 mg/dL Normal 7-25 [facility] Comment on above: Performed By: #### L [id number] ####[facility] (BEAKER)[address] [address] UREA NITROGEN/CREATININE (MASS RATIO) IN SER/PLAS 12.5 Normal [facility] Comment on above: Performed By: #### L [id number] ####[facility] [address] CBCon 11-10-2023 Erythrocyte distribution width (RBC) [Ratio] 14.2 % Normal 11.5-15.0 [facility] Comment on above: Performed By: #### L [id number] ####[facility] ([facility])[address] [address] ERYTHROCYTE MEAN CORPUSCULAR HEMOGLOBIN CONCENTRATION (G/DL) BY AUTOMATED 33.4 g/dL Normal 32.0-35.0 [facility] Comment on above: Performed By: #### L [id number] ####[facility] ([facility] [address] Hematocrit (Bld) [Volume fraction] 43.7 % Normal 39.0-55.0 [facility] Comment on above: Performed By: #### L [id number] ####[facility] ([facility] [address] Hemoglobin (Bld) [Mass/Vol] 14.6 g/dL Normal 13.0-17.0 [facility] Comment on above: Performed By: #### L [id number] ####[facility] (BEAKER)[address] [address] MCH (RBC) [Entitic mass] 29.0 pg Normal 27.0-33.0 [facility] Comment on above: Performed By: #### L [id number] ####[facility] (BEAKER)[address] [address] MCV (RBC) [Entitic vol] 86.9 fL Normal 82.0-98.0 [facility] Comment on above: Performed By: #### L [id number] ####[facility] ([facility])[address] [place] [address] PLATELETS (10*3/UL) IN BLOOD AUTOMATED COUNT 248 10*3/uL Normal 150-400 [facility] Comment on above: Performed By: #### L [id number] ####[facility] ([facility])[address] [place] [address] RBC (Bld) [#/Vol] 5.03 10*6/uL Normal 4.20-5.70 [facility] Comment on above: Performed By: #### L [id number] ####[facility] ([facility])[address] [place] [address] WBC (Bld) [#/Vol] 10.05 10*3/uL Normal 4.00-10.60 [facility] Comment on above: Performed By: #### L [id number] ####[facility] ([facility])[address] [place] [address] DSon 11-10-2023 DS Normal [facility] MAGNESIUMon 11-10-2023 Magnesium [Mass/Vol] 1.6 mg/dL Low 1.9-2.7 [facility] Comment on above: Performed By: #### L [id number] ####[facility] ([facility])[address] [place] [address] NURSNOTEon 11-10-2023 NURSNOTE Discharge paperwork reviewed with patient. All questions answered. Patient and verbalized understanding. Normal [facility] PHOSPHORUSon 11-10-2023 Magnesium [Mass/Vol] 3.6 mg/dL Normal 2.5-5.0 [facility] Comment on above: Performed By: #### L [id number] ####[facility] ([facility])[address] [place] [address] POCT GLUCOSE METER UNSOLICIT ED RESULTSon 11-10-2023 Glucose [Mass/Vol] 135 mg/dL High 70-105 [facility] Comment on above: Order Comment: Waive d Testing in the ED is performed under the ED CLIA certificate #[id number]. Result Comment: pgom ez Performed By: #### L [id number] ####[facility] (BEAKER)[address] [place] [address] Glucose [Mass/Vol] 220 mg/dL High 70-105 [facility] Comment on above: Order Comment: Waive d Testing in the ED is performed under the ED CLIA certificate #[id number]. Result Comment: pgom ez Performed By: #### L [id number] ####[facility] (BEAKER)[address] [place] [address] Glucose [Mass/Vol] 233 mg/dL High 70-105 [facility] Comment on above: Order Comment: Waive d Testing in the ED is performed under the ED CLIA certificate #[id number]. Result Comment: pgom ez Performed By: #### L [id number] ####[facility] (BEAKER)[address] [place] [address] [id number] 11-09-2023 [id number] Normal [facility] ANESon 11-09-2023 ANES Normal [facility] ANES Normal [facility] ARTERIAL BLOOD GAS WITH CO-O XIMETRYon 11-09-2023 Base excess Calc (Bld) [Moles/Vol] -3.7000 mmol/L Low -2.0-3.0 [facility] Comment on above: Performed By: #### L [id number] ####[facility] [id number] [place] [address] [facility] CARBOXYHEMOGLOBIN/HEMOG LOBIN TOTAL % IN BLOOD 5.0 % High 0.0-3.0 [facility] Comment on above: Performed By: #### L [id number] ####[facility] [id number] [place] [address] [place] CO2 (Bld) [Partial pressure] 45 mm[Hg] Normal 35-48 [facility] Comment on above: Performed By: #### L [id number] ####[facility] [id number] [place] [address] [facility] DEOXYGENATED HEMOGLOBIN IN BLOOD 0.0 % Low 1-5 [facility] Comment on above: Performed By: #### L [id number] ####[facility] [id number] [place] [address] [facility] HCO3 (Bld) [Moles/Vol] 22.7 mmol/L Normal 21.0-28.[address] [facility] Comment on above: Performed By: #### L [id number] ####[facility] [id number] [place] [address] [facility] Hemoglobin (Bld) [Mass/Vol] 13.1 g/dL Normal 11.7-17.4 [facility] Comment on above: Performed By: #### L [id number] ####[facility] [id number] [place] [address] [facility] METHEMOGLOBIN/100 IN BLOOD 0.7 % Normal 0.0-1.5 [facility] Comment on above: Performed By: #### L [id number] ####[facility] [id number] [place] [address] [facility] Oxygen (Bld) [Partial pressure] 195 mm[Hg] High 83-100 [facility] Comment on above: Performed By: #### L [id number] ####[facility] [id number] [place] [address] [facility] OXYGEN SATURATION (%) IN ARTERIAL BLOOD 100.0 % High 94.0-98.0 [facility] Comment on above: Performed By: #### L [id number] ####[facility] [id number] [place] [address] [facility] OXYGENATED HEMOGLOBIN IN BLOOD 94.3 % Normal 90.0-95.0 [facility] Comment on above: Performed By: #### L [id number] ####[facility] [id number] [place] [address] [facility] pH (Bld) 7.31 [pH] Low 7.35-7.45 [facility] Comment on above: Performed By: #### L [id number] ####[facility] [id number] [place] [address] [facility] SOURCE OF OXYGEN Vent Normal [facility] Comment on above: Performed By: #### L [id number] ####[facility] [id number] [place] [address] [facility] BASIC METABOLIC PANELon - Anion gap [Moles/Vol] 12 mmol/L Normal 7-20 [facility] Comment on above: Performed By: #### L [id number] ####[facility] [place] [address] Calcium [Mass/Vol] 9.2 mg/dL Normal 8.6-10.3 [facility] Comment on above: Performed By: #### L [id number] ####[facility] (BEAKER)[address] [place] [address] Chloride [Moles/Vol] 104 mmol/L Normal 98-107 [facility] Comment on above: Performed By: #### L [id number] ####[facility] (BEAKER)[address] [place] [address] CO2 [Moles/Vol] 23 mmol/L Normal 21-31 [facility] Comment on above: Performed By: #### L [id number] ####[facility] (BEAKER)[address] [place] [address] Creatinine [Mass/Vol] 1.07 mg/dL Normal 0.70-1.30 [facility] Comment on above: Performed By: #### L [id number] ####[facility] [place] [address] GLOMERULAR FILTRATION RATE ML/MIN/1.73 SQ M.PREDICTED 76.5 mL/min/1.73m*2 Normal >60.0 [facility] Comment on above: Result Comment: [facility]???s estimated glomerular filtration rate (eGFR) will no [...] of individuals. Performed By: #### L [id number] ####[facility] ([facility])[address] [place] [address] Glucose [Mass/Vol] 271 mg/dL High 70-100 [facility] Comment on above: Performed By: #### L [id number] ####[facility] ([facility] [place] [address] Potassium [Moles/Vol] 3.9 mmol/L Normal 3.5-5.1 [facility] Comment on above: Performed By: #### L [id number] ####[facility] ([facility] [place] [address] Sodium [Moles/Vol] 135 mmol/L Low 136-145 [facility] Comment on above: Performed By: #### L [id number] ####[facility] (BEAKER)[address] [place] [address] Urea nitrogen [Mass/Vol] 19 mg/dL Normal 7-25 [facility] Comment on above: Performed By: #### L [id number] ####[facility] ([facility] [place] [address] UREA NITROGEN/CREATININE (MASS RATIO) IN SER/PLAS 17.8 Normal [facility] Comment on above: Performed By: #### L [id number] ####[facility] ([facility] [place] [address] CALCIUM, IONIZEDon 4 CALCIUM IONIZED (MMOL/L) IN BLOOD 1.28 mmol/L Normal 1.15-1.33 [facility] Comment on above: Performed By: #### C ALCIUM, IONIZED ####[facility] RES[facility] [id number] [place] [address] [place] CBCon 11-09-2023 Erythrocyte distribution width (RBC) [Ratio] 14.1 % Normal 11.5-15.0 [facility] Comment on above: Performed By: #### L [id number] ####[facility] ([facility] [place] [address] ERYTHROCYTE MEAN CORPUSCULAR HEMOGLOBIN CONCENTRATION (G/DL) BY AUTOMATED 33.2 g/dL Normal 32.0-35.0 [facility] Comment on above: Performed By: #### L [id number] ####[facility] ([facility])[address] [place] [address] Hematocrit (Bld) [Volume fraction] 41.6 % Normal 39.0-55.0 [facility] Comment on above: Performed By: #### L [id number] ####[facility] ([facility] [place] [address] Hemoglobin (Bld) [Mass/Vol] 13.8 g/dL Normal 13.0-17.0 [facility] Comment on above: Performed By: #### L [id number] ####[facility] (BEAKER)[address] [place] [address] MCH (RBC) [Entitic mass] 29.2 pg Normal 27.0-33.0 [facility] Comment on above: Performed By: #### L [id number] ####[facility] (BEAKER)[address] [place] [address] MCV (RBC) [Entitic vol] 88.1 fL Normal 82.0-98.0 [facility] Comment on above: Performed By: #### L [id number] ####[facility] (BEAKER)[address] [place] [address] PLATELETS (10*3/UL) IN BLOOD AUTOMATED COUNT 252 10*3/uL Normal 150-400 [facility] Comment on above: Performed By: #### L [id number] ####[facility] [place] [address] RBC (Bld) [#/Vol] 4.72 10*6/uL Normal 4.20-5.70 [facility] Comment on above: Performed By: #### L [id number] ####[facility] ([facility])[address] [place] [address] WBC (Bld) [#/Vol] 8.72 10*3/uL Normal 4.00-10.60 [facility] Comment on above: Performed By: #### L [id number] ####[facility] ([facility])[address] [place] [address] HEMOGLOBIN A1Con 11-09-2023 Glucose [Mass/Vol] 203 mg/dL Normal [facility] Comment on above: Performed By: #### L [id number] ####[facility] ([facility])[address] [place] [address] HbA1c (Bld) [Mass fraction] 8.7 % High 4.0-6.0 [facility] Comment on above: Performed By: #### L [id number] ####[facility] ([facility])[address] [place] [address] HISTOLOGY - TISSUE EXAMon LAB AP CASE REPORT Normal [facility] Comment on above: Order Comment: Pre-o p diagnosis:Renal mass [N28.89] Result Comment: Surg ical Pathology Case: [id number] Provider: Walt Araujo MD Collected: 11/09/2023 1127Ordering Location: [facility] Main Operating Room Received: 11/09/2023 1138Pathologist: Darinel Florez MDIntraop: TIA Merazpecimen: Kidney, LEFT NEPHRECTOMY Performed By: #### L [id number] ####[facility] ([facility])[address] [place] [address] LAB AP CLINICAL INFORMATION Normal [facility] Comment on above: Order Comment: Pre-o p diagnosis:Renal mass [N28.89] Result Comment: Post -Op IxqtcrpsmD11.89 - Renal mass [ICD-10-CM] Performed By: #### L [id number] ####[facility] ([place])[address] [place] [address] LAB AP GROSS DESCRIPTION A. Kidney. Normal [facility] Comment on above: Order Comment: Pre-o p [...] lesions are identified. Digital photographs are taken. Copy Reader sections are submitted as follows:A1: Renal vein margin, en faceA2: Renal artery margin and ureter margin, en faceA3-A5: Tumor with renal sinus fatA6-A7: Tumor involving renal veinA8-A9: Tumor to closest renal capsule with attached perirenal fat and closest Gerota's uolgzaY30: Tumor to uninvolved fjdbbhyzgxN47: Uninvolved parenchyma, lower poleA12: Adrenal icahsR72: 1 possible lymph node, intactElmary Sweet, Pathologists' Claims Examiner Mireya Calderon, Pathologists' Claims Examiner Performed By: #### L [id number] ####[facility] ([facility])[address] [place] [address] LAB AP INTRAOPERATIVE CONSULTATION A. Kidney. Normal [facility] Comment on above: Order Comment: Pre-o p diagnosis:Renal mass [N28.89] Result Comment: Resu lted 11:39 AM 11/09/23Jasen left, radical nephrectomy: - Renal vein margin (staple line) is grossly uninvolved by tumor thrombusIntraoperative Consultation by: Mindy Lilly MD Performed By: #### L [id number] ####[facility] ([facility])[address] [place] [address] LAB AP MICROSCOPIC DESCRIPTION Microscopic examination performed. [facility] Comment on above: Order Comment: Pre-o p diagnosis:Renal mass [N28.89] Performed By: #### L [id number] ####[facility] ([facility])[address] [place] [address] LAB AP REPORT FINAL DIAGNOSIS NARRATIVE [facility] Comment on above: Order Comment: Pre-o [...] tumor.See cancer protocol. Performed By: #### L [id number] ####[facility] ([facility])[address] [place] [address] LAB AP SYNOPTIC CHECKLIST Normal [facility] Comment on above: Order Comment: Pre-o p diagnosis:Renal mass [N28.89] Result Comment: KIDYanira EY: NephrectomyKIDNEY: NEPHRECTOMY - All [id number] Edition - Protocol posted: 04/16/2021PECIMEN Procedure: Radical [...] and tubular atrophy Performed By: #### L [id number] ####[facility] ([facility])[address] [place] [address] HPon 11-09-2023 HP Normal [facility] MAGNESIUMon 11-09-2023 Magnesium [Mass/Vol] 1.4 mg/dL Low 1.9-2.7 [facility] Comment on above: Performed By: #### L [id number] ####[facility] ([employer])[address] [place] [address] OPNOTEon 11-09-2023 OPNOTE Normal [facility] POCT GLUCOSE METER UNSOLICIT ED RESULTSon 11-09-2023 Glucose [Mass/Vol] 147 mg/dL High 70-105 [facility] Comment on above: Order Comment: Waive d Testing in the ED is performed under the ED CLIA certificate #[id number]. Result Comment: [email or web address] Performed By: #### L [id number] ####[facility] ([facility])[address] [place] [address] Glucose [Mass/Vol] 165 mg/dL High 70-105 [facility] Comment on above: Order Comment: Waive d Testing in the ED is performed under the ED CLIA certificate #[id number]. Result Comment: [email or web address] al Performed By: #### L [id number] ####[facility] ([employer])[address] [address] Glucose [Mass/Vol] 265 mg/dL High 70-105 [facility] Comment on above: Order Comment: Waive d Testing in the ED is performed under the ED CLIA certificate #[id number]. Result Comment: rtat e Performed By: #### L [id number] ####[facility] ([facility])[address] [place] [address] Glucose [Mass/Vol] 195 mg/dL High 70-105 [facility] Comment on above: Order Comment: Waive d Testing in the ED is performed under the ED CLIA certificate #[id number]. Result Comment: ltol [email or web address] Performed By: #### L [id number] ####[facility] ([facility])[address] [place] [address] POTASSIUM, WHOLE BLOODon Potassium [Moles/Vol] 4.1 mmol/L Normal 3.5-5.1 [facility] Comment on above: Performed By: #### P OTASSIUM, WHOLE BLOOD ####[facility] [id number] [place] [address] [place] SODIUM, WHOLE BLOODon 2023 SODIUM, WHOLE BLOOD 134 Low 136-145 [facility] Comment on above: Performed By: #### S ODIUM, WHOLE BLOOD ####[facility] [id number] [place] [address] [place] TYPE AND SCREENon 11-09-2023 AB SCREEN Negative Normal [facility] Comment on above: Performed By: #### L [id number] ####[facility], ABO group Nom (Bld) A Normal [facility] Comment on above: Performed By: #### L [id number] ####[facility], RH TYPE IN BLOOD Positive Normal [facility] Comment on above: Performed By: #### L [id number] ####[facility], [id number] 11-03-2023 [id number] Normal [facility] Orders Onlyon 11-02-2023 Orders Only Normal [facility] Documentationon 10-27-2023 Documentation Normal [facility] Orders Onlyon 10-27-2023 Orders Only Normal [facility] Telephoneon 10-27-2023 Telephone Normal [facility] CT CHEST WO IV CONTRASTon CT CHEST WO IV CONTRAST [facility] 36on 10-20-2023 36 I called urology and received the clearance. Normal [facility] 36 Normal [facility] Orders Onlyon 10-20-2023 Orders Only Normal [facility] APTTon 10-07-2023 ACTIVATED PARTIAL THROMBOPLASTIN TIME IN PPP BY COAGULATION ASSAY 31.3 Seconds Normal 25.0-35.0 [facility] Comment on above: Result Comment: Clin ical significance of the APTT is questionable in the presence of heparin. Performed By: #### L [id number] ####[facility] ([facility])[address] [place] [address] CBC WITH AUTO DIFFERENTIALon 10-07-2023 Basophils (Bld) [#/Vol] 0.05 10*3/uL Normal 0.00-0.20 [facility] Comment on above: Performed By: #### L [id number] ####[facility] ([facility])[address] [place] [address] Basophils/100 WBC (Bld) 0.8 % Normal 0.0-1.[address] [facility] Comment on above: Performed By: #### L [id number] ####[facility] ([facility])[address] [place] [address] Eosinophils (Bld) [#/Vol] 0.14 10*3/uL Normal 0.00-0.50 [facility] Comment on above: Performed By: #### L [id number] ####[facility] ([facility])[address] [place] [address] Eosinophils/100 WBC (Bld) 2.2 % Normal 0.0-6.0 [facility] Comment on above: Performed By: #### L [id number] ####[facility] ([facility])[address] [place] [address] Erythrocyte distribution width (RBC) [Ratio] 14.5 % Normal 11.5-15.0 [facility] Comment on above: Performed By: #### L [id number] ####[facility] ([facility])[address] [place] [address] ERYTHROCYTE MEAN CORPUSCULAR HEMOGLOBIN CONCENTRATION (G/DL) BY AUTOMATED 31.9 g/dL Low 32.0-35.0 [facility] Comment on above: Performed By: #### L [id number] ####[facility] ([facility])[address] [place] [address] Hematocrit (Bld) [Volume fraction] 42.9 % Normal 39.0-55.0 [facility] Comment on above: Performed By: #### L [id number] ####[facility] ([facility])[address] [place] [address] Hemoglobin (Bld) [Mass/Vol] 13.7 g/dL Normal 13.0-17.0 [facility] Comment on above: Performed By: #### L [id number] ####[facility] ([facility])[address] [place] [address] Immature granulocytes (Bld) [#/Vol] 0.02 10*3/uL Normal 0.00-0.20 [facility] Comment on above: Performed By: #### L [id number] ####[facility] ([facility])[address] [place] [address] Immature granulocytes/100 WBC (Bld) 0.3 % Normal 0.0-1.0 [facility] Comment on above: Performed By: #### L [id number] ####[facility] ([facility])[address] [place] [address] Lymphocytes (Bld) [#/Vol] 1.59 10*3/uL Normal 1.20-4.00 [facility] Comment on above: Performed By: #### L [id number] ####[facility] ([facility])[address] [place] [address] Lymphocytes/100 WBC (Bld) 25.5 % Normal 20.0-45.0 [facility] Comment on above: Performed By: #### L [id number] ####[facility] ([facility])[address] [place] [address] MCH (RBC) [Entitic mass] 29.3 pg Normal 27.0-33.0 [facility] Comment on above: Performed By: #### L [id number] ####[facility] ([facility])[address] [place] [address] MCV (RBC) [Entitic vol] 91.9 fL Normal 82.0-98.0 [facility] Comment on above: Performed By: #### L [id number] ####[facility] ([facility])[address] [place] [address] Monocytes (Bld) [#/Vol] 0.45 10*3/uL Normal 0.10-1.00 [facility] Comment on above: Performed By: #### L [id number] ####[facility] [place] [address] Monocytes/100 WBC (Bld) 7.2 % Normal 5.0-12.0 [facility] Comment on above: Performed By: #### L [id number] ####[facility] ([facility])[address] [place] [address] Neutrophils (Bld) [#/Vol] 3.99 10*3/uL Normal 1.60-7.60 [facility] Comment on above: Performed By: #### L [id number] ####[facility] ([facility])[address] [place] [address] Neutrophils/100 WBC (Bld) 64.0 % Normal 40.0-72.0 [facility] Comment on above: Performed By: #### L [id number] ####[facility] ([facility])[address] [place] [address] NRBC (PER 100 WBCS) BY AUTOMATED COUNT 0.0 % Normal 0 [facility] Comment on above: Performed By: #### L [id number] ####[facility] [place] [address] PLATELETS (10*3/UL) IN BLOOD AUTOMATED COUNT 301 10*3/uL Normal 150-400 [facility] Comment on above: Performed By: #### L [id number] ####[facility] [place] [address] RBC (Bld) [#/Vol] 4.67 10*6/uL Normal 4.20-5.70 [facility] Comment on above: Performed By: #### L [id number] ####[facility] ([facility])[address] [place] [address] WBC (Bld) [#/Vol] 6.24 10*3/uL Normal 4.00-10.60 [facility] Comment on above: Performed By: #### L [id number] ####[facility] ([facility])[address] [place] [address] COMPREHENSIVE METABOLIC PANE Sonido 10-07-2023 Albumin [Mass/Vol] 4.1 g/dL Normal 3.5-5.7 [facility] Comment on above: Performed By: #### L [id number] ####[facility] ([facility])[address] [place] [address] ALP [Catalytic activity/Vol] 98 U/L Normal 34-104 [facility] Comment on above: Performed By: #### L [id number] ####[facility] ([facility])[address] [place] [address] ALT [Catalytic activity/Vol] 15 U/L Normal 7-52 [facility] Comment on above: Performed By: #### L [id number] ####[facility] ([facility])[address] [place] [address] Anion gap [Moles/Vol] 11 mmol/L Normal 7-20 [facility] Comment on above: Performed By: #### L [id number] ####[facility] ([facility])[address] [place] [address] AST [Catalytic activity/Vol] 14 U/L Normal 13-39 [facility] Comment on above: Performed By: #### L [id number] ####[facility] ([facility])[address] [place] [address] Bilirubin [Mass/Vol] 0.5 mg/dL Normal 0.3-1.0 [facility] Comment on above: Performed By: #### L [id number] ####[facility] ([facility])[address] [place] [address] Calcium [Mass/Vol] 10.7 mg/dL High 8.6-10.3 [facility] Comment on above: Performed By: #### L [id number] ####[facility] ([facility])[address] [place] [address] Chloride [Moles/Vol] 103 mmol/L Normal 98-107 [facility] Comment on above: Performed By: #### L [id number] ####[facility] ([facility])[address] [place] [address] CO2 [Moles/Vol] 27 mmol/L Normal 21-31 [facility] Comment on above: Performed By: #### L [id number] ####[facility] ([facility])[address] [place] [address] Creatinine [Mass/Vol] 1.13 mg/dL Normal 0.70-1.30 [facility] Comment on above: Performed By: #### L [id number] ####[facility] ([facility])[address] [place] [address] GLOMERULAR FILTRATION RATE ML/MIN/1.73 SQ M.PREDICTED 71.7 mL/min/1.73m*2 Normal >60.0 [facility] Comment on above: Result Comment: [facility]???s estimated glomerular filtration rate (eGFR) will no [...] of individuals. Performed By: #### L [id number] ####[facility] ([facility])[address] [place] [address] Glucose [Mass/Vol] 312 mg/dL High 70-100 [facility] Comment on above: Performed By: #### L [id number] ####[facility] ([facility])[address] [place] [address] Potassium [Moles/Vol] 4.5 mmol/L Normal 3.5-5.1 [facility] Comment on above: Performed By: #### L [id number] ####[facility] [place] [address] Protein [Mass/Vol] 7.1 g/dL Normal 6.0-8.3 [facility] Comment on above: Performed By: #### L [id number] ####[facility] ([facility])[address] [place] [address] Sodium [Moles/Vol] 136 mmol/L Normal 136-145 [facility] Comment on above: Performed By: #### L [id number] ####[facility] ([facility])[address] [place] [address] Urea nitrogen [Mass/Vol] 11 mg/dL Normal 7-25 [facility] Comment on above: Performed By: #### L [id number] ####[facility] ([facility])[address] [place] [address] UREA NITROGEN/CREATININE (MASS RATIO) IN SER/PLAS 9.7 Normal [facility] Comment on above: Performed By: #### L [id number] ####[facility] ([facility])[address] [place] [address] CT ABDOMEN PELVIS WO IV CONT RASTon 10-07-2023 CT ABDOMEN PELVIS WO IV CONTRAST Normal [facility] FERRITINon 10-07-2023 FERRITIN (NG/ML) IN SER/PLAS 168.0 ng/mL Normal 24.0-336.0 [facility] Comment on above: Performed By: #### L [id number] ####[facility] ([facility])[address] [place] [address] FOLATEon 10-07-2023 FOLATE (NG/ML) IN SER/PLAS 14.67 ng/mL Normal 6.6-1000 [facility] Comment on above: Performed By: #### L [id number] ####[facility] ([facility])[address] [place] [address] IRON AND TIBCon 10-07-2023 IRON (UG/DL) IN SER/PLAS 24 ug/dL Low 50-212 [facility] Comment on above: Performed By: #### L [id number] ####[facility] ([facility])[address] [place] [address] IRON BINDING CAPACITY (UG/DL) IN SER/PLAS 249 ug/dL Low 250-450 [facility] Comment on above: Performed By: #### L [id number] ####[facility] ([facility])[address] [place] [address] IRON BINDING CAPACITY.UNSATURATED (UG/DL) IN SER/PLAS 225.0 ug/dL Normal 155.0-355. 0 [facility] Comment on above: Performed By: #### L [id number] ####[facility] ([facility])[address] [place] [address] IRON SATURATION (%) IN SER/PLAS 10 % Low 20-50 [facility] Comment on above: Performed By: #### L [id number] ####[facility] ([facility])[address] [place] [address] Labon 10-07-2023 Lab Normal [facility] PROTIME-INRon 10-07-2023 INR IN PPP BY COAGULATION ASSAY 1.02 Normal 0.90-1.10 [facility] Comment on above: Result Comment: ACCC P [...] CHEST 1995;108:[id number]. Performed By: #### L [id number] ####[facility] ([facility])[address] [place] [address] PROTHROMBIN TIME (PT) IN PPP BY COAGULATION ASSAY 13.4 Seconds Normal 12.3-14.8 [facility] Comment on above: Performed By: #### L [id number] ####[facility] ([facility])[address] [place] [address] VITAMIN B12on 10-07-2023 Cobalamin (Vitamin B12) [Mass/Vol] 596 pg/mL Normal 180-914 [facility] Comment on above: Result Comment: REFE RENCE RANGES:180-914 pg/mL Tkcjui210-185 pg/mL Indeterminate<145 pg/mL Deficient Performed By: #### L [id number] ####[facility] ([facility])[address] [place] [address] 37on 10-06-2023 37 Perform iron studies , b12, folate levesl Return to clinic 2 weeks after kidney surgery (November 09) Normal [facility] Follow-Upon 09-16-2023 Follow-Up Normal [facility] MICROALBUMIN, RAND URon 02-0 mALB 26.0 mg/L Normal <=30.0 [facility] Comment on above: Performed By: #### P T, PTT #### [facility] [address] [place] [address] Dr. Mani Carpio CBC AUTO DIFFon 11-18-2022 BASO # 0.1 103/ul Normal 0.0-0.1 [facility] Comment on above: Performed By: #### P T, PTT #### [facility] [address] [place] [address] Dr. Mani Carpio Basophils/100 WBC (Bld) 0.4 % Normal 0.2-2.0 [facility] Comment on above: Performed By: #### P T, PTT #### [facility] [address] [place] [address] Dr. aMni Carpio EO # 0.1 103/ul Normal 0.0-0.7 [facility] Comment on above: Performed By: #### P T, PTT #### [facility] [address] [place] [address] Dr. Mani Carpio Eosinophils/100 WBC (Bld) 0.8 % Critically low 0.9-7.0 [facility] Comment on above: Performed By: #### P T, PTT #### [facility] [address] [place] [address] Dr. Mani Carpio Erythrocyte distribution width (RBC) [Ratio] 16.2 % Critically high 11.0-15.0 [facility] Comment on above: Performed By: #### P T, PTT #### [facility] [address] [place] [address] Dr. Mani Carpio Hematocrit (Bld) [Volume fraction] 41.3 % Critically low 42.0-54.0 [facility] Comment on above: Performed By: #### P T, PTT #### [facility] [address] [place] [address] Dr. Mani Carpio Hemoglobin (Bld) [Mass/Vol] 13.0 g/dL Critically low 14.0-18.0 [facility] Comment on above: Performed By: #### P T, PTT #### [facility] [address] [place] [address] Dr. Mani Carpio IG # 0.05 10e3/ul Critically high 0.00-0.03 [facility] Comment on above: Performed By: #### P T, PTT #### [facility] [address] [place] [address] Dr. Mani Carpio IG % 0.4 % Normal 0.0-0.5 [facility] Comment on above: Performed By: #### P T, PTT #### [facility] [address] [place] [address] Dr. Mani Carpio LYMPH # 2.0 103/ul Normal 1.2-3.8 [facility] Comment on above: Performed By: #### P T, PTT #### [facility] [address] [place] [address] Dr. Mani Carpio Lymphocytes/100 WBC (Bld) 18.1 % Critically low 20.5-60.0 [facility] Comment on above: Performed By: #### P T, PTT #### [facility] [address] [place] [address] Dr. Mani Carpio MANUAL DIFF REQ NO Normal [facility] Comment on above: Performed By: #### P T, PTT #### [facility] [address] [place] [address] Dr. Mani Carpio MCH (RBC) [Entitic mass] 29.7 pg Normal 25.9-34.0 [facility] Comment on above: Performed By: #### P T, PTT #### [facility] [address] [place] [address] Dr. Mani Carpio MCHC (RBC) [Mass/Vol] 31.5 g/dL Normal 29.9-35.2 [facility] Comment on above: Performed By: #### P T, PTT #### [facility] [address] [place] [address] Dr. Mani Carpio MCV (RBC) [Entitic vol] 94.3 fL Critically high 80.0-94 .0 [facility] Comment on above: Performed By: #### P T, PTT #### [facility] [address] [place] [address] Dr. Mani Carpio MONO # 0.7 103/ul Normal 0.3-0.8 [facility] Comment on above: Performed By: #### P T, PTT #### [facility] [address] [place] [address] Dr. Mani Carpio Monocytes/100 WBC (Bld) 5.9 % Normal 1.7-12.0 [facility] Comment on above: Performed By: #### P T, PTT #### [facility] [address] [place] [address] Dr. Mani Carpio NEUT # 8.3 103/ul Critically high 1.4-6.5 [facility] Comment on above: Performed By: #### P T, PTT #### [facility] [address] [place] [address] [address] Mani Carpio Neutrophils/100 WBC (Bld) 74.4 % Normal 43.0-75.0 [facility] Comment on above: Performed By: #### P T, PTT #### [facility] [address] [address] [address] Mani Carpio Platelet mean volume (Bld) [Entitic vol] 10.0 fL Normal 9.5-13.5 [facility] Comment on above: Performed By: #### P T, PTT #### [facility] [address] [address] [address] Mani Carpio PLT 281 103/ul Normal 150-450 [facility] Comment on above: Performed By: #### P T, PTT #### [facility] [address] [place] [address] Dr. Mani Carpio RBC 4.38 106/ul Critically low 4.70-6.10 [facility] Comment on above: Performed By: #### P T, PTT #### [facility] [address] [place] [address] [address] Mani Carpio WBC 11.2 103/ul Critically high 4.0-11.0 [facility] Comment on above: Performed By: #### P T, PTT #### [facility] [address] [place] [address] Dr. Mani Carpio GLYCOHEMOGLOBIN A1Con 2022 ADA RECOMMENDATION SEE BELOW Normal [facility] Comment on above: Result Comment: ADA RECOMMENDED LIMIT 4.0 - 6.0 ADA THERAPEUTIC TARGET < 7.0 ACTION SUGGESTED > 7.0 Performed By: #### A 1C #### [facility] [address] [place] [address] Dr. Mani Carpio Glucose [Mass/Vol] 146 mg/dL Normal [facility] Comment on above: Performed By: #### A 1C #### [facility] [address] [place] [address] Dr. Mani Carpio HbA1c (Bld) [Mass fraction] 6.7 % Critically high 4.5-6.2 [facility] Comment on above: Performed By: #### A 1C #### [facility] [address] [address] [address] Mani Carpio LIPID PROFILEon 11-18-2022 CHOL-HDL RATIO NORM SEE BELOW Normal [facility] Comment on above: Result Comment: 3.3 - 4.4 LOW RISK 4.4 - 7.1 AVERAGE RISK 7.1 - 11.0 MODERATE RISK >11.0 HIGH RISK Performed By: #### P T, PTT #### [facility] [address] [address] [address] Mani Carpio Cholesterol [Mass/Vol] 109 mg/dL Normal <=200 [address] [facility] Comment on above: Performed By: #### P T, PTT #### [facility] [address] [address] [address] Mani Carpio Cholesterol in HDL [Mass/Vol] 28 mg/dL Critically low 40-60 [facility] Comment on above: Performed By: #### P T, PTT #### [facility] [address] [address] [address] Mani Carpio Cholesterol in LDL [Mass/Vol] 41.2 mg/dL Normal [facility] Comment on above: Performed By: #### P T, PTT #### [facility] [address] [address] [address] Mani Carpio Cholesterol.total/Dania sterol in HDL [Mass ratio] 3.9 {ratio} Normal [facility] Comment on above: Performed By: #### P T, PTT #### [facility] [address] [place] [address] [address] Mani Carpio HDL NORMAL > or = 60 mg/dl - LO W CARDIOVASCULAR RISK <40 mg/dl - HIGH CARDIOVASCULAR RISK Normal [facility] Comment on above: Performed By: #### P T, PTT #### [facility] [address] [place] [address] Dr. Mani Carpio LDL CALC NORMAL SEE BELOW Normal [facility] Comment on above: Result Comment: <100 mg/dl OPTIMAL 100 - 129 mg/dl NEAR OR ABOVE OPTIMAL 130 - 159 mg/dl BORDERLINE HIGH 160 - 189 mg/dl HIGH >190 mg/dl VERY HIGH Performed By: #### P T, PTT #### [facility] [address] [place] [address] Dr. Mani Carpio Triglyceride [Mass/Vol] 199 mg/dL Critically high <=150 [facility] Comment on above: Performed By: #### P T, PTT #### [facility] [address] [place] [address] Dr. Mani Carpio VLDL CALC 39.8 mg/dL Normal [facility] Comment on above: Performed By: #### P T, PTT #### [facility] [address] [place] [address] Dr. Mani Carpio LIVER PROFILEon 11-18-2022 Albumin [Mass/Vol] 3.6 g/dL Normal 3.4-5.0 [facility] Comment on above: Performed By: #### P T, PTT #### [facility] [address] [place] [address] Dr. Mani Carpio Albumin/Globulin [Mass ratio] 0.9 {ratio} Normal [facility] Comment on above: Performed By: #### P T, PTT #### [facility] [address] [place] [address] Dr. Mani Carpio ALP [Catalytic activity/Vol] 76 U/L Normal 46-116 [facility] Comment on above: Performed By: #### P T, PTT #### [facility] [address] [place] [address] Dr. Mani Carpio ALT [Catalytic activity/Vol] 26 U/L Normal 16-63 [facility] Comment on above: Performed By: #### P T, PTT #### [facility] Laboratory [address] [place] [address] Dr. Mani Carpio AST [Catalytic activity/Vol] 17 U/L Normal 15-37 [facility] Comment on above: Performed By: #### P T, PTT #### [facility] [address] [place] [address] Dr. Mani Carpio BILI, CONJUGATED 0.2 mg/dL Normal 0.0-0.2 [facility] Comment on above: Performed By: #### P T, PTT #### [facility] [address] [place] [address] Dr. Mani Carpio Bilirubin [Mass/Vol] 0.7 mg/dL Normal 0.2-1.0 [facility] Comment on above: Performed By: #### P T, PTT #### [facility] [address] [place] [address] Dr. Mani Carpio Globulin (S) [Mass/Vol] 4.2 g/dL Normal T [facility] Comment on above: Performed By: #### P T, PTT #### [facility] [address] [place] [address] Dr. Mani Carpio Protein [Mass/Vol] 7.8 g/dL Normal 6.4-8.2 [facility] Comment on above: Performed By: #### P T, PTT #### [facility] [address] [place] [address] Dr. Mani Carpio PROF CHEM 8 (BAS METB)on Anion gap [Moles/Vol] 12.0 mmol/L Normal [facility] Comment on above: Performed By: #### P T, PTT #### [facility] [address] [place] [address] Dr. Mani Carpio Calcium [Mass/Vol] 9.5 mg/dL Normal 8.5-10.1 [facility] Comment on above: Performed By: #### P T, PTT #### [facility] [address] [place] [address] Dr. Mani Carpio Chloride [Moles/Vol] 100 mmol/L Normal 98-107 [facility] Comment on above: Performed By: #### P T, PTT #### [facility] [address] [place] [address] Dr. Mani Carpio CO2 [Moles/Vol] 28.9 mmol/L Normal 21.0-32.0 [facility] Comment on above: Performed By: #### P T, PTT #### [facility] [address] [place] [address] Dr. Mani Carpio Creatinine [Mass/Vol] 1.01 mg/dL Normal 0.70-1.30 [facility] Comment on above: Performed By: #### P T, PTT #### [facility] [address] [place] [address] Dr. Mani Carpio EGFR-AF SOUTH AFRICAN >60 Normal >=60 [facility] Comment on above: Performed By: #### P T, PTT #### [facility] [address] [address] [address] Mani Carpio EGFR-NON AF SOUTH AFRICAN >60 Normal >=60 [facility] Comment on above: Performed By: #### P T, PTT #### [facility] [address] [address] [address] Mani Carpio Glucose [Mass/Vol] 221 mg/dL Critically high 74-106 [facility] Comment on above: Performed By: #### P T, PTT #### [facility] [address] [place] [address] Dr. Mani Carpio Potassium [Moles/Vol] 3.9 mmol/L Normal 3.5-5.1 [facility] Comment on above: Performed By: #### P T, PTT #### [facility] [address] [address] [address] Mani Carpio Sodium [Moles/Vol] 137 mmol/L Normal 136-145 [facility] Comment on above: Performed By: #### P T, PTT #### [facility] [address] [address] [address] Mani Carpio Urea nitrogen [Mass/Vol] 14.0 mg/dL Normal 7.0-18.0 [facility] Comment on above: Performed By: #### P T, PTT #### [facility] [address] [address] [address] Mani Caprio Urea nitrogen/Creatinine [Mass ratio] 13.9 mg/mg Normal [facility] Comment on above: Performed By: #### P T, PTT #### [facility] [address] [place] [address] Dr. Mani Carpio ACETONE SERUMon 09-02-2022 ACETONE Negative Normal NEGATIVE [facility] Comment on above: Performed By: #### P T, PTT #### [facility] [address] [place] [address] Dr. Mani Carpio BNPon 09-02-2022 Natriuretic peptide B (Bld) [Mass/Vol] 466.0 pg/mL Normal <=900.0 [facility] Comment on above: Performed By: #### L ACT #### [facility] [address] [place] [address] Dr. Mani Carpio CBC W MANUAL DIFFon 09-02-20 22 ATYPICAL LYMPH # Normal [facility] Comment on above: Performed By: #### C BCMAN #### [facility] [address] [place] [address] Dr. Mani Carpio ATYPICAL LYMPH % Normal [facility] Comment on above: Performed By: #### C BCMAN #### [facility] [address] [place] [address] Dr. Mani Carpio BAND # Normal 0.0-0.3 [facility] Comment on above: Performed By: #### C BCMAN #### [facility] [address] [place] [address] Dr. Mani Carpio BAND % Normal 0-5 [facility] Comment on above: Performed By: #### C BCMAN #### [facility] [address] [place] [address] Dr. Mani Carpio BASOM # 0.23 103/ul Critically high 0.00-0.10 [facility] Comment on above: Performed By: #### C BCMAN #### [facility] [address] [place] [address] Dr. Mani Carpio BASOM % 1.0 % Normal 0.2-2.0 [facility] Comment on above: Performed By: #### C BCMAN #### [facility] [address] [place] [address] Dr. Mani Carpio BLAST # Normal [facility] Comment on above: Performed By: #### C BCMAN #### [facility] [address] [place] [address] Dr. Mani Carpio BLAST % Normal [facility] Comment on above: Performed By: #### C JUAN R #### [facility] [address] [place] [address] Dr. Mani Carpio CORRECTED WBC Normal 4.0-11.0 [facility] Comment on above: Performed By: #### C JUAN R #### [facility] [address] [place] [address] Dr. Mani Carpio EOS # 0.00 103/ul Normal 0.00-0.70 [facility] Comment on above: Performed By: #### C JUAN R #### [facility] [address] [place] [address] Dr. Mani Carpio EOS% 0.0 % Critically low 0.9-7.0 [facility] Comment on above: Performed By: #### C JUAN R #### [facility] [address] [place] [address] Dr. Mani Carpio HCT 43.3 % Normal 42.0-54.0 [facility] Comment on above: Performed By: #### C JUAN R #### [facility] [address] [place] [address] Dr. Mani Carpio HGB 15.1 g/dl Normal 14.0-18.0 [facility] Comment on above: Performed By: #### C JUAN R #### [facility] [address] [place] [address] Dr. Mani Carpio LYMPHM # 2.49 103/ul Normal 1.20-3.80 [facility] Comment on above: Performed By: #### C JUAN R #### [facility] [address] [place] [address] Dr. Mani Carpio LYMPHM% 11.0 % Critically low 20.5-60.0 [facility] Comment on above: Performed By: #### C JUAN R #### [facility] [address] [place] [address] Dr. Mani Carpio MCH 30.8 pg Normal 25.9-34.0 [facility] Comment on above: Performed By: #### C JUAN R #### [facility] [address] [place] [address] Dr. Mani Carpio MCHC 34.9 g/dl Normal 29.9-35.2 [facility] Comment on above: Performed By: #### C BCMAN #### [facility] [address] [place] [address] Dr. Mani Carpio MCV 88.2 fL Normal 80.0-94.0 [facility] Comment on above: Performed By: #### C BCMAN #### [facility] [address] [place] [address] Dr. Mani Carpio METAMYELOCYTE # Normal [facility] Comment on above: Performed By: #### C JUAN R #### [facility] [address] [place] [address] Dr. Mani Carpio METAMYELOCYTE % Normal [facility] Comment on above: Performed By: #### C JUAN R #### [facility] [address] [place] [address] Dr. Mani Carpio MONOM# 2.26 103/ul Critically high 0.30-0.80 [facility] Comment on above: Performed By: #### C JUAN R #### [facility] [address] [place] [address] Dr. Mani Carpio MONOM% 10.0 % Normal 1.7-12.0 [facility] Comment on above: Performed By: #### C JUAN R #### [facility] [address] [place] [address] Dr. Mani Carpio MPV 10.1 fL Normal 9.5-13.5 [facility] Comment on above: Performed By: #### C BCMAN #### [facility] [address] [place] [address] Dr. Mani Carpio MYELOCYTE # Normal [facility] Comment on above: Performed By: #### C BCMAN #### [facility] [address] [place] [address] Dr. Mani Carpio MYELOCYTE % Normal [facility] Comment on above: Performed By: #### C JUAN R #### [facility] [address] [place] [address] Dr. Mani Carpio NRBC Normal [facility] Comment on above: Performed By: #### C BCMAN #### [facility] [address] [address] [address] Mani Carpio PLT 311 103/ul Normal 150-450 [facility] Comment on above: Performed By: #### C BCMAN #### [facility] [address] [address] [address] Mani Carpio RBC 4.91 106/ul Normal 4.70-6.10 [facility] Comment on above: Performed By: #### C BCMAN #### [facility] [address] [address] [address] Mani Carpio RDW 14.2 % Normal 11.0-15.0 [facility] Comment on above: Performed By: #### C JUAN R #### [facility] [address] [place] [address] Dr. Mani Carpio SEG # 17.63 103/ul Critically high 1.40-6.50 [facility] Comment on above: Performed By: #### C RUSSELLMAN #### [facility] [address] [place] [address] Dr. Mani Carpio SEG % 78.0 % Critically high 43.0-75.0 [facility] Comment on above: Performed By: #### C BCMAN #### [facility] [address] [place] [address] Dr. Mani Carpio WBC 22.6 103/ul Critically high 4.0-11.0 [facility] Comment on above: Performed By: #### C RUSSELLMAN #### [facility] [address] [place] [address] ABD/PELV W CONon [...] by: STEPHIE RODRIGUEZ Date: 2022-09-02 15:[address] [facility] [address] STROKE HEAD WOon 09-02-[address] [...] by: JULISSA HACKETT Date: 2022-09-02 14:20 Normal [facility] CULTURE BLOODon 09-02-2022 Microscopic examination of blood, culture Culture Observations: NO GROWTH AT 5 DAYS. Normal [facility] Comment on above: Performed By: #### L ACT #### [facility] [address] [address] [address] Mani Carpio Microscopic examination of blood, culture Culture Observations: NO GROWTH AT 5 DAYS. Normal [facility] Comment on above: Performed By: #### L ACT #### [facility] [address] [address] [address] Mani Carpio Covid-19 PCR ([facility])on 08-18 SARS-CoV-2 (COVID-19) RNA PLACIDO+probe Ql (Unsp spec) Not detected Normal NOT DETECTED [facility] Comment on above: Result Comment: When diagnostic [...] for this test is supported by the [employer] Operator of Health and Human Service's declaration that [...] used). Performed By: #### L ACT #### [facility] [address] [address] [address] Mani Carpio ER URINE PROFILEon 2 Bilirubin Ql (U) Negative Normal NEGATIVE [facility] Comment on above: Performed By: #### U MICRO, ERUR #### [facility] [address] [address] [address] Mani Carpio Clarity (U) CLEAR Normal CLEAR [facility] Comment on above: Performed By: #### U MICRO, ERUR #### [facility] [address] [address] [address] Mani Carpio Color (U) LT. YELLOW Normal YELLOW [facility] Comment on above: Performed By: #### U MICRO, ERUR #### [facility] [address] [place] [address] Dr. Mani Carpio ERUAHD A micrscopic examina tion will be performed if indicated. Normal [facility] Comment on above: Performed By: #### U MICRO, ERUR #### [facility] [address] [place] [address] Dr. Mani Carpio Glucose Ql (U) 500 mg/dl Abnormal NEGATIVE [facility] Comment on above: Performed By: #### U MICRO, ERUR #### [facility] [address] [address] [address] Mani Carpio Hemoglobin Ql (U) SMALL Abnormal NEGATIVE [facility] Comment on above: Performed By: #### U MICRO, ERUR #### [facility] [address] [place] [address] Dr. Mani Carpio Ketones Ql (U) Negative Normal NEGATIVE [facility] Comment on above: Performed By: #### U MICRO, ERUR #### [facility] [address] [address] [address] Mani Carpio LEUKOCYTES Negative Normal NEGATIVE [facility] Comment on above: Performed By: #### U MICRO, ERUR #### [facility] [address] [place] [address] Dr. Mani Carpio Nitrite Ql (U) Negative Normal NEGATIVE [facility] Comment on above: Performed By: #### U MICRO, ERUR #### [facility] [address] [place] [address] Dr. Mani Carpio pH (U) 7.0 [pH] Normal 5-9 [facility] Comment on above: Performed By: #### U MICRO, ERUR #### [facility] [address] [place] [address] Dr. Mani Carpio Protein (U) [Mass/Vol] 100 mg/dL Abnormal NEGAT SONYA/ TRACE [facility] Comment on above: Performed By: #### U MICRO, ERUR #### [facility] [address] [place] [address] Dr. Mani Carpio SPEC GRAVITY 1.015 Normal 1.005-<=1. 025 [facility] Comment on above: Performed By: #### U MICRO, ERUR #### [facility] [address] [place] [address] Dr. Mani Carpio UR MICRO IND INDICATED Normal [facility] Comment on above: Performed By: #### U MICRO, ERUR #### [facility] [address] [place] [address] Dr. Mani Carpio Urobilinogen Qn (U) 0.2 {Javon'U}/dL Normal 0.2 - 1. 0 [facility] Comment on above: Performed By: #### U MICRO, ERUR #### [facility] [address] [place] [address] Dr. Mani Carpio LACTATE/LACTIC ACIDon 2021 Lactate [Moles/Vol] 3.1 mmol/L Critically high 0.4-1.9 [facility] Comment on above: Performed By: #### L ACT #### [facility] [address] [place] [address] Dr. Mani Carpio Lactate [Moles/Vol] 4.0 mmol/L Critically high 0.4-1.9 [facility] Comment on above: Performed By: #### L ACT #### [facility] [address] [place] [address] Dr. Mani Carpio LIPASEon 09-02-2022 Lipase [Catalytic activity/Vol] 60.0 U/L Critically low 73.0-393.0 [facility] Comment on above: Performed By: #### L ACT #### [facility] [address] [address] [address] Mani Carpio PH VENOUS BLOODon 09-02-2022 PCO2 VENOUS 32.5 mmHg Critically low 40.0-52.0 [facility] Comment on above: Performed By: #### P HVEN #### [facility] [address] [address] [address] Mani Carpio pH VENOUS 7.454 Critically high 7.330-7.43 0 [facility] Comment on above: Performed By: #### P HVEN #### [facility] [address] [address] [address] Mani Carpio PROF 14(COMP METB)on 022 Albumin [Mass/Vol] 3.8 g/dL Normal 3.4-5.0 [facility] Comment on above: Performed By: #### L ACT #### [facility] [address] [place] [address] Dr. Mani Carpio Albumin/Globulin [Mass ratio] 0.8 {ratio} Normal [facility] Comment on above: Performed By: #### L ACT #### [facility] [address] [place] [address] Dr. Mani Carpio ALP [Catalytic activity/Vol] 83 U/L Normal 46-116 [facility] Comment on above: Performed By: #### L ACT #### [facility] [address] [place] [address] Dr. Mani Carpio ALT [Catalytic activity/Vol] 23 U/L Normal 16-63 [facility] Comment on above: Performed By: #### L ACT #### [facility] [address] [address] [address] Mani Carpio Anion gap [Moles/Vol] 13.9 mmol/L Normal [facility] Comment on above: Performed By: #### L ACT #### [facility] [address] [address] [address] Mani Carpio AST [Catalytic activity/Vol] 14 U/L Critically low 15-37 [facility] Comment on above: Performed By: #### L ACT #### [facility] [address] [address] [address] Mani Carpio Bilirubin [Mass/Vol] 1.1 mg/dL Critically high 0.2-1.0 [facility] Comment on above: Performed By: #### L ACT #### [facility] [address] [address] [address] Mani Carpio Calcium [Mass/Vol] 10.0 mg/dL Normal 8.5-10.1 [facility] Comment on above: Performed By: #### L ACT #### [facility] [address] [address] [address] Mani Carpio Chloride [Moles/Vol] 96 mmol/L Critically low 98-107 [facility] Comment on above: Performed By: #### L ACT #### [facility] [address] [place] [address] Dr. Mani Carpio CO2 [Moles/Vol] 24.8 mmol/L Normal 21.0-32.0 [facility] Comment on above: Performed By: #### L ACT #### [facility] [address] [place] [address] Dr. Mani Carpio Creatinine [Mass/Vol] 1.25 mg/dL Normal 0.70-1.30 [facility] Comment on above: Performed By: #### L ACT #### [facility] [address] [place] [address] Dr. Mani Carpio EGFR-AF S[place]FR[place] >60 Normal >=60 [facility] Comment on above: Performed By: #### L ACT #### [facility] [address] [address] [address] Mani Carpio EGFR-NON AF S[place]FR[place] 58 mL/min/1.73m2 Critically low >=60 [facility] Comment on above: Performed By: #### L ACT #### [facility] [address] [address] [address] Mani Carpio Globulin (S) [Mass/Vol] 4.6 g/dL Normal T [facility] Comment on above: Performed By: #### L ACT #### [facility] [address] [address] [address] Mani Carpio Glucose [Mass/Vol] 204 mg/dL Critically high 74-106 [facility] Comment on above: Performed By: #### L ACT #### [facility] [address] [address] [address] Mani Carpio Potassium [Moles/Vol] 3.7 mmol/L Normal 3.5-5.1 [facility] Comment on above: Performed By: #### L ACT #### [facility] [address] [address] [address] Mani Carpio Protein [Mass/Vol] 8.4 g/dL Critically high 6.4-8.2 [facility] Comment on above: Performed By: #### L ACT #### [facility] [address] [address] [address] Mani Carpio Sodium [Moles/Vol] 131 mmol/L Critically low 136-145 [facility] Comment on above: Performed By: #### L ACT #### [facility] [address] [address] [address] Mani Carpio Urea nitrogen [Mass/Vol] 17.0 mg/dL Normal 7.0-18.0 [facility] Comment on above: Performed By: #### L ACT #### [facility] [address] [address] [address] Mani Carpio Urea nitrogen/Creatinine [Mass ratio] 13.6 mg/mg Normal [facility] Comment on above: Performed By: #### L ACT #### [facility] [address] [address] [address] Mani Carpio PROTIMEon 09-02-2022 INR Coag (PPP) [Relative time] 1.07 {INR} Normal [facility] Comment on above: Performed By: #### P T, PTT #### [facility] [address] [address] [address] Mani Carpio INR GUIDELINES SEE BELOW Normal [facility] Comment on above: Result Comment: SETH RED INR: 2.0 - 3.0 CONDITIONS NOT LISTED BELOW 2.5 - 3.5 FOR PROSTHETIC HEART VALVE REPLACEMENT 2.5 - 3.5 RECURRENT THROMBOSIS Performed By: #### P T, PTT #### [facility] [address] [place] [address] Dr. Mani Carpio PT Coag (PPP) [Time] 11.5 s Normal 9.0-11.6 [facility] Comment on above: Performed By: #### P T, PTT #### [facility] [address] [place] [address] Dr. Mani Carpio PTTon 09-02-2022 aPTT Coag (Bld) [Time] 29.3 s Normal 22.3-36.2 Th [facility] Comment on above: Performed By: #### P T, PTT #### [facility] [address] [place] [address] Dr. Mani Carpio TROPONIN, HIGH SENSITIVITYon 09-02-2022 HSTROP 13.4 pg/mL Normal 4.0-76.1 [facility] Comment on above: Result Comment: CUT- OFF POINTS HAVE BEEN ESTABLISHED BASED ON THE FOURTH UNIVERSAL DEFINITIONS OF MYOCARDIAL INFARCTION. THE UPPER REFERENCE LIMIT (URL) OF TROPONIN, DEFINED THE 99TH PERCENTILE OF cTnI DISTRIBUTION IN A REFERENCE POPULATION, HAS BEEN CONFIRMED THE DECISION THRESHOLD FOR ME DIAGNOSIS. Performed By: #### L ACT #### [facility] [address] [place] [address] Dr. Mani Carpio TSHon 09-02-2022 TSH 0.555 uIU/mL Normal 0.358-3.74 0 [facility] Comment on above: Performed By: #### L ACT #### [facility] [address] [place] [address] Dr. Mani Carpio URINE MICROSCOPIC ONLYon BACTERIA TRACE Abnormal NONE SEEN [facility] Comment on above: Performed By: #### U MICRO, ERUR #### [facility] [address] [place] [address] Dr. Mani Carpio Bacteria identified Cx Nom (U) NOT INDICATED Normal [facility] Comment on above: Performed By: #### U MICRO, ERUR #### [facility] [address] [place] [address] Dr. Mani Carpio CAST NONE SEEN Normal NONE SEEN [facility] Comment on above: Performed By: #### U MICRO, ERUR #### [facility] [address] [place] [address] Dr. Mani Carpio Crystals LM Nom (Urine sed) NONE SEEN Normal NONE SEEN [facility] Comment on above: Performed By: #### U MICRO, ERUR #### [facility] [address] [place] [address] Dr. Mani Carpio Epithelial cells LM Ql (Urine sed) RARE Normal NONE SEEN /RARE [facility] Comment on above: Performed By: #### U MICRO, ERUR #### [facility] [address] [place] [address] Dr. Mani Carpio MUCOUS NONE SEEN Normal NONE SEEN [facility] Comment on above: Performed By: #### U MICRO, ERUR #### [facility] [address] [place] [address] Dr. Mani Carpio RBC 5-10 Abnormal 0-2 [facility] Comment on above: Performed By: #### U MICRO, ERUR #### [facility] [address] [place] [address] Dr. Mani Carpio WBC 0-2 Abnormal NONE SEEN [facility] Comment on above: Performed By: #### U MICRO, ERUR #### [facility] [address] [place] [address] Dr. Mani Carpio US SINGLE QUAD RT [...] by: ELBA SHIPMAN Date: 2022-09-02 17:25 Normal [facility] US MARQUIS DOP LEG BILon 022 US [...] by: HARMONY BRIGGS Date: 2022-09-02 16:58 Normal [facility] XR CHEST 1 Von 09-02-2022 XR CHEST [...] by: SHAHIDA ANDERSON Date: 2022-09-02 14:24 Normal [facility] ECHOCARDIO M/2D COMPLETEon 1 10-21-2021 ECHOCARDIO M/2D COMPLETE Patient: YOEL VAN Exam Date: 08/21/2022 : 1955 Gender:M Ordering : DES [facility]LL[facility] Admission #: [id number] Family : Order #: [id number] CLICK HERE TO VIEW EXAM ECHOCARDIOGRAM REPORT [...] Guevara M.D. on 08/21/2022 at 18:08 Normal [facility] GLYCOHEMOGLOBIN A1Con 2021 ADA RECOMMENDATION SEE BELOW Normal [facility] Comment on above: Result Comment: ADA RECOMMENDED LIMIT 4.0 - 6.0 ADA THERAPEUTIC TARGET < 7.0 ACTION SUGGESTED > 7.0 Performed By: #### A 1C #### [facility] [address] [place] [address] Dr. Mani Carpio Glucose [Mass/Vol] 186 mg/dL Normal [facility] Comment on above: Performed By: #### A 1C #### [facility] [address] [address] [address] Mani Carpio HbA1c (Bld) [Mass fraction] 8.1 % Critically high 4.5-6.2 [facility] Comment on above: Performed By: #### A 1C #### [facility] [address] [address] [address] Mani Carpio APTTon 05-03-2021 aPTT Coag (Bld) [Time] 20.8 s Normal 20.5-30.5 [facility] Comment on above: Result Comment: IV Heparin Therapy Range: 48.6-77.8 Performed By: #### S ED, CRP, STROKE #### [employer] [address] [place] [address] Turbine Technician: Bowen Lemon MD APTTOrdered By: Ning martines on 05-03-2021 aPTT Coag (Bld) [Time] 20.8 s [facility] Work Phone: Comment on above: IV Heparin Therapy Range: 48.6-77.8 [facility] [email or web address] Phone: Basic Metab w/rfx MGon 05-03 (cont.) Normal [facility] Comment on above: Result Comment: Aver age GFR for 60-69 years old: 85 mL/min/1.73sq m Chronic Kidney Disease: <60 mL/min/1.73sq m Kidney failure: <15 mL/min/1.73sq m eGFR calculated using average adult body mass. Additional eGFR calculator available at: http://www.ScribbleLive/multiple_crcl_2012.htm Performed By: #### S ED, CRP, STROKE #### [employer] [address] [place] [address] Turbine Technician: Bowen Lemon MD Anion gap [Moles/Vol] 12 mmol/L Normal 9-17 [facility] Comment on above: Performed By: #### S ED, CRP, STROKE #### [employer] [address] [place] [address] Turbine Technician: Bowen Lemon MD Calcium [Mass/Vol] 9.4 mg/dL Normal 8.6-10.4 [facility] Comment on above: Performed By: #### S ED, CRP, STROKE #### [employer] [address] [place] [address] Turbine Technician: Bowen Lemon MD Chloride [Moles/Vol] 103 mmol/L Normal 98-107 [facility] Comment on above: Performed By: #### S ED, CRP, STROKE #### [facility] [address] [place] [address] Turbine Technician: Bowen Lemon MD CO2 [Moles/Vol] 20 mmol/L Normal 20-31 [facility] Comment on above: Performed By: #### S ED, CRP, STROKE #### [facility] [address] [place] [address] Turbine Technician: Bowen Lemon MD Creatinine [Mass/Vol] 0.85 mg/dL Normal 0.70-1.20 [facility] Comment on above: Performed By: #### S ED, CRP, STROKE #### [facility] [address] [place] [address] Turbine Technician: Bowen Lemon MD GFR, Amer >60 Normal >60 [facility] Comment on above: Performed By: #### S ED, CRP, STROKE #### [facility] [address] [place] [address] Turbine Technician: Bowen Lemon MD GFR,non Amer >60 Normal >60 [facility] Comment on above: Performed By: #### S ED, CRP, STROKE #### [facility] [address] [place] [address] Turbine Technician: Bowen Lemon MD Glucose [Mass/Vol] 163 mg/dL High 70-99 [facility] Comment on above: Performed By: #### S ED, CRP, STROKE #### [facility] [address] [place] [address] Turbine Technician: Bowen Lemon MD Potassium [Moles/Vol] 4.1 mmol/L Normal 3.7-5.3 [facility] Comment on above: Performed By: #### S ED, CRP, STROKE #### [facility] [address] [place] [address] Turbine Technician: Bowen Lemon MD Sodium [Moles/Vol] 135 mmol/L Normal 135-144 [facility] Comment on above: Performed By: #### S ED, CRP, STROKE #### [facility] [address] [place] [address] Turbine Technician: Bowen Lemon MD Urea nitrogen [Mass/Vol] 12 mg/dL Normal 8-23 [facility] Comment on above: Performed By: #### S ED, CRP, STROKE #### [facility] [address] [place] [address] Turbine Technician: Bowen Lemon MD BUN/CRE Ratio NOT REPORTED Normal 9-20 [facility] Comment on above: Performed By: #### S ED, CRP, STROKE #### [facility] [address] [place] [address] Turbine Technician: Bowen Lemon MD Staging: NOT REPORTED Normal [facility] Comment on above: Performed By: #### S ED, CRP, STROKE #### [facility] [address] [place] [address] Turbine Technician: Bowen Lemon MD Basic Metabolic Panel w/ Ref darlene to MGOrdered By: Jarek Osborn on 05-03-2021 Anion gap [Moles/Vol] 12 mmol/L 9 - 17 mmol/L [facility] Phone: Calcium [Mass/Vol] 9.4 mg/dL 8.6 - 10. 4 mg/dL [employer] Phone: Chloride [Moles/Vol] 103 mmol/L 98 - 10 7 mmol/L [employer] Phone: CO2 [Moles/Vol] 20 mmol/L 20 - 31 mmol/L [employer] Phone: Creatinine [Mass/Vol] 0.85 mg/dL 0.70 - 1.20 mg/dL [employer] Phone: GFR >60 >60 mL/min [employer] Phone: GFR Non- >60 >60 mL/min [employer] Phone: GFR/1.73 sq M.predicted MDRD (S/P/Bld) [Vol rate/Area] [employer] Phone: Comment on above: Average GFR for 60-6 9 years old: 85 mL/min/1.73sq m Chronic Kidney Disease: <60 mL/min/1.73sq m Kidney failure: <15 mL/min/1.73sq m eGFR calculated using average adult body mass. Additional eGFR calculator available at: http://www.ScribbleLive/multiple_crcl_2012.htm GFR/1.73 sq M.predicted MDRD (S/P/Bld) [Vol rate/Area] NOT REPORTED [employer] Phone: Glucose [Mass/Vol] 163 mg/dL High 70 - 99 mg/dL [employer] Phone: Interpretation and review of laboratory results Abnormal [employer] Phone: Potassium [Moles/Vol] 4.1 mmol/L 3.7 - 5.3 mmol/L [employer] Phone: Sodium [Moles/Vol] 135 mmol/L 135 - 144 mmol/L [employer] Phone: Urea nitrogen (BldV) [Mass/Vol] 12 mg/dL 8 - 23 mg/dL [employer] Phone: Urea nitrogen/Creatinine (Bld) [Mass ratio] NOT REPORTED [employer] Phone: CBCon 05-03-2021 Erythrocyte distribution width (RBC) [Ratio] 14.5 % High 11.8-14.4 [facility] Comment on above: Performed By: #### S ED, CRP, STROKE #### [address] [address] Turbine Technician: Bowen Lemon MD Hematocrit (Bld) [Volume fraction] 38.4 % Low 40.7-50.3 [facility] Comment on above: Performed By: #### S ED, CRP, STROKE #### [address] [address] Turbine Technician: Bowen Lemon MD Hemoglobin (Bld) [Mass/Vol] 12.6 g/dL Low 13.0-17.0 [facility] Comment on above: Performed By: #### S ED, CRP, STROKE #### [address] [address] Turbine Technician: Bowen Lemon MD MCH (RBC) [Entitic mass] 30.2 pg Normal 25.2-33.5 [facility] Comment on above: Performed By: #### S ED, CRP, STROKE #### [address] [address] Turbine Technician: Bowen Lemon MD MCHC (RBC) [Mass/Vol] 32.8 g/dL Normal 28.4-34.8 [facility] Comment on above: Performed By: #### S ED, CRP, STROKE #### [address] [address] Turbine Technician: Bowen Lemon MD MCV (RBC) [Entitic vol] 92.1 fL Normal 82.6-102.9 M [facility] Comment on above: Performed By: #### S ED, CRP, STROKE #### [address] [address] Turbine Technician: Bowen Lemon MD NRBC Automated 0.0 per 100 WBC Normal 0.0 [facility] Comment on above: Performed By: #### S ED, CRP, STROKE #### [facility] [address] [place] [address] Turbine Technician: Bowen Lemon MD Platelet mean volume (Bld) [Entitic vol] 10.8 fL Normal 8.1-13.5 [facility] Comment on above: Performed By: #### S ED, CRP, STROKE #### [facility] [address] [place] [address] Turbine Technician: Bowen Lemon MD Platelets (Bld) [#/Vol] 225 10*3/uL Normal 138-453 [facility] Comment on above: Performed By: #### S ED, CRP, STROKE #### [facility] [address] [place] [address] Turbine Technician: Bowen Lemon MD RBC (Bld) [#/Vol] 4.17 10*6/uL Low 4.21-5.77 [facility] Comment on above: Performed By: #### S ED, CRP, STROKE #### [facility] [address] [place] [address] Turbine Technician: Bowen Lemon MD WBC (Bld) [#/Vol] 6.6 10*3/uL Normal 3.5-11.3 [facility] Comment on above: Performed By: #### S ED, CRP, STROKE #### [facility] [address] [place] [address] Turbine Technician: Bowen Lemon MD CBCOrdered By: Gee benoit on 05-03-2021 Hematocrit (Bld) [Volume fraction] 38.4 % Low 40.7 - 50.3 % [employer] Phone: Hemoglobin.gastrointest inal spec 1 Ql (Stl) 12.6 g/dL Low 13.0 - 17.0 g/dL [employer] Phone: Interpretation and review of laboratory results Abnormal [employer] Phone: MCH (RBC) [Entitic mass] 30.2 pg 25.2 - 33.5 pg [employer] Phone: MCHC (RBC) [Mass/Vol] 32.8 g/dL 28.4 - 34.8 g/dL [employer] Phone: MCV (RBC) [Entitic vol] 92.1 fL 82.6 - 102.9 fL [employer] Phone: NRBC Automated 0.0 0.0 per 100 WBC [employer] Phone: Platelet distribution width (Bld) [Ratio] 14.5 % High 11.8 - 14.4 % [employer] Phone: Platelet mean volume (Bld) [Entitic vol] 10.8 fL 8.1 - 13.5 fL [employer] Phone: Platelets (Bld) [#/Vol] 225 10*3/uL [employer] Phone: RBC (Bld) [#/Vol] 4.17 10*6/uL Low 4.21 - 5.77 m/uL [employer] Phone: WBC (Bld) [#/Vol] 6.6 10*3/uL [employer] Phone: [employer] Phone: MAGNESIUMOrdered By: Gee Parnell on 05-03-2021 Magnesium [Mass/Vol] 1.7 mg/dL 1.6 - 2 .6 mg/dL [employer] Phone: Magnesiumon 05-03-2021 Magnesium [Mass/Vol] 1.7 mg/dL Normal 1.6-2.6 [facility] Comment on above: Performed By: #### S ED, CRP, STROKE #### [employer] [address] [place] [address] Turbine Technician: Bowen Lemon MD No Panel InformationOrdered By: Jarek Osborn on 05-03-2021 [facility] Phone: POC Glucose FingerstickOrder ed By: Ning Wallace on 05-03-2021 Glucose [Mass/Vol] 163 mg/dL High 75 - 110 mg/dL [facility] Phone: Interpretation and review of laboratory results Abnormal [facility] Phone: [facility] Phone: APTTon 05-02-2021 aPTT Coag (Bld) [Time] 60.3 s High 20.5-30.5 [facility] Comment on above: Result Comment: IV Heparin Therapy Range: 48.6-77.8 Performed By: #### S ED, CRP, STROKE #### [employer] [address] [place] [address] Turbine Technician: Bowen Lemon MD APTTOrdered By: Ning martines on 05-02-2021 aPTT Coag (Bld) [Time] 60.3 s High [facility] [email or web address] Phone: Comment on above: IV Heparin Therapy Range: 48.6-77.8 Interpretation and review of laboratory results Abnormal [employer] Phone: [facility] Phone: Activated clotting timeOrder ed By: Ning Wallace on 05-02-2021 Activated Clotting Time 227 High M [facility] [email or web address] Phone: Interpretation and review of laboratory results Abnormal [employer] Phone: [facility] Phone: Basic Metab w/rfx MGon 05-02 (cont.) Normal [facility] Comment on above: Result Comment: Aver age GFR for 60-69 years old: 85 mL/min/1.73sq m Chronic Kidney Disease: <60 mL/min/1.73sq m Kidney failure: <15 mL/min/1.73sq m eGFR calculated using average adult body mass. Additional eGFR calculator available at: http://www.ScribbleLive/multiple_crcl_2012.htm Performed By: #### S ED, CRP, STROKE #### [facility] [address] [place] [address] Turbine Technician: Bowen Lemon MD Anion gap [Moles/Vol] 14 mmol/L Normal 9-17 [facility] Comment on above: Performed By: #### S ED, CRP, STROKE #### [facility] [address] [place] [address] Turbine Technician: Bowen Lemon MD Calcium [Mass/Vol] 9.4 mg/dL Normal 8.6-10.4 [facility] Comment on above: Performed By: #### S ED, CRP, STROKE #### [facility] [address] [place] [address] Turbine Technician: Bowen Lemon MD Chloride [Moles/Vol] 106 mmol/L Normal 98-107 [facility] Comment on above: Performed By: #### S ED, CRP, STROKE #### [facility] [address] [place] [address] Turbine Technician: Bowen Lemon MD CO2 [Moles/Vol] 19 mmol/L Low 20-31 [facility] Comment on above: Performed By: #### S ED, CRP, STROKE #### [facility] [address] [place] [address] Turbine Technician: Bowen Lemon MD Creatinine [Mass/Vol] 0.87 mg/dL Normal 0.70-1.20 [facility] Comment on above: Performed By: #### S ED, CRP, STROKE #### [facility] [employer] [address] [place] [address] Turbine Technician: Bowen Lemon MD GFR, Amer >60 Normal >60 [facility] Comment on above: Performed By: #### S ED, CRP, STROKE #### [facility] [address] [place] [address] Turbine Technician: Bowen Lemon MD GFR,non Amer >60 Normal >60 [facility] Comment on above: Performed By: #### S ED, CRP, STROKE #### [facility] [address] [place] [address] Turbine Technician: Bowen Lemon MD Glucose [Mass/Vol] 161 mg/dL High 70-99 [facility] Comment on above: Performed By: #### S ED, CRP, STROKE #### [address] [address] Turbine Technician: Bowen Lemon MD Potassium [Moles/Vol] 4.0 mmol/L Normal 3.7-5.3 [facility] Comment on above: Performed By: #### S ED, CRP, STROKE #### [address] [address] Turbine Technician: Bowen Lemon MD Sodium [Moles/Vol] 139 mmol/L Normal 135-144 [facility] Comment on above: Performed By: #### S ED, CRP, STROKE #### [facility] [address] [place] [address] Turbine Technician: Bowen Lemon MD Urea nitrogen [Mass/Vol] 11 mg/dL Normal 8-23 [facility] Comment on above: Performed By: #### S ED, CRP, STROKE #### [facility] [address] [place] [address] Turbine Technician: Bowen Lemon MD BUN/CRE Ratio NOT REPORTED Normal 9-20 [facility] Comment on above: Performed By: #### S ED, CRP, STROKE #### [facility] [address] [place], [place] [id number] Turbine Technician: Bowen Lemon MD Staging: NOT REPORTED Normal [facility] Comment on above: Performed By: #### S ED, CRP, STROKE #### [facility] [address] [place], [place] [id number] Turbine Technician: Bowen Lemon MD Basic Metabolic Panel w/ Ref darlene to MGOrdered By: Jarek Osborn on 05-02-2021 Anion gap [Moles/Vol] 14 mmol/L 9 - 17 mmol/L [employer] Phone: Calcium [Mass/Vol] 9.4 mg/dL 8.6 - 10. 4 mg/dL [employer] Phone: Chloride [Moles/Vol] 106 mmol/L 98 - 10 7 mmol/L [employer] Phone: CO2 [Moles/Vol] 19 mmol/L Low 20 - 31 mmol/L [employer] Phone: Creatinine [Mass/Vol] 0.87 mg/dL 0.70 - 1.20 mg/dL [employer] Phone: GFR >60 >60 mL/min [employer] Phone: GFR Non- >60 >60 mL/min [employer] Phone: GFR/1.73 sq M.predicted MDRD (S/P/Bld) [Vol rate/Area] [employer] Phone: Comment on above: Average GFR for 60-6 9 years old: 85 mL/min/1.73sq m Chronic Kidney Disease: <60 mL/min/1.73sq m Kidney failure: <15 mL/min/1.73sq m eGFR calculated using average adult body mass. Additional eGFR calculator available at: http://www.[employer]/multiple_crcl_2012.htm GFR/1.73 sq M.predicted MDRD (S/P/Bld) [Vol rate/Area] NOT REPORTED [employer] Phone: Glucose [Mass/Vol] 161 mg/dL High 70 - 99 mg/dL [employer] Phone: Potassium [Moles/Vol] 4.0 mmol/L 3.7 - 5.3 mmol/L [employer] Phone: Sodium [Moles/Vol] 139 mmol/L 135 - 144 mmol/L [employer] Phone: Urea nitrogen (BldV) [Mass/Vol] 11 mg/dL 8 - 23 mg/dL [employer] Phone: Urea nitrogen/Creatinine (Bld) [Mass ratio] NOT REPORTED [employer] Phone: Catheterization and angiogra phy procedure details panelOrdered By: Ning Wallace on 05-02-2021 Cardiac Intervention al Report Demographics Patient REHAN Bryant Date of Study 05/02/2021 Name Date of 1955 Gender Male Age 65 year(s) Race Room [id number]^ALIA^NING Height: 72 inch, 182.88 cm Number Corporate [id number] Weight: 223 pounds, 101.2 kg ID # Patient [id number] BSA: 2.23 m^2 BMI: 30.24 Acct # kg/m^2 MR # [id number] Performing Nikolas Bojorquez Physician Referring # Physician [...] vessel has 40% stenosis OM has proximal LEAD PERSON and supplied by [employer] on Mid [...] P.O. 243 mg. Contrast Material: - Isovue 74914 ml Fluoroscopy Time: Diagnostic: 8:54 minutes. Total: [...] assessed as CCS III according to the Chinese clinical classification. Hemodynamics Condition: Baseline Room Air Estimated: 266.29Heart Rate: 76 bpm Pressure +-----+ + !Site !Pressure ! +-----+ + !AO !96/54 (66) (more content not included)... [employer] Phone: Adam, Mhpn Incoming C ardio Results From Cpacs/Ge - 05/02/2021 5:39 PM EDT Cardiac Interventional Report Demographics Patient REHAN Bryant Date of Study 05/02/2021 Name Date of 1955 Gender Male Age 65 year(s) Race Room [id number]^ALIA^NING Height: 72 inch, 182.88 cm Number Corporate [id number] Weight: 223 pounds, 101.2 kg ID # Patient [id number] BSA: 2.23 m^2 BMI: 30.24 Acct # kg/m^2 MR # [id number] Performing Nikolas Bojorquez Physician Referring # Physician Assisting Physician Additional Comments H&P reviewed and patient examined by performing physician prior to the procedure on 05/02/21 at No changes noted. If changes, see note below. ASA Classification / Mallampati : per Physician. ASA & Mallampati documented in [facility] by Physician. Procedure Procedure Type: [...] in 6 weeks if remains symptomatic Signature Electronically signed by Nikolas Bojorquez(Perform [facility] Physician) on 05/02/2021 17:39 Angiographic Findings Cardiac Arteries and Lesion Findings LMCA: Proximal 40% stenosis with ventriculization of the pressure. LAD: Ostial to mid diffuse 60-70% stenosis. Distal 75% stenosis. Diag is intermediate to large caliber with proximal 70% stenosis LCx: Mid long 80% stenosis, reduced to 0% with PTCA/FLORESITA. Mid to distal vessel has 40% stenosis OM has proximal LEAD PERSON and supplied by [employer] on Mid [...] P.O. 243 mg. Contrast Material: - Isovue 45426 ml Fluoroscopy Time: Diagnostic: 8:54 minutes. Total: [...] assessed as CCS III according to the Chinese clinical classification. Hemodynamics Condition: Baseline Room Air Estimated: 266.29Heart Rate: 76 bpm Pressure +-----+ + !Site !Pressure ! +-----+ + !AO !96/54 (66) ! +-----+ + Shunts Oxygen Values O2 [id number] [employer] Phone: [employer] Phone: Catheterization and angiogra phy procedure details panelOrdered By: Unknown Result on 05-02-2021 [employer] Phone: MAGNESIUMOrdered By: Gee Parnell on 05-02-2021 Magnesium [Mass/Vol] 1.5 mg/dL Low 1.6 - 2 .6 mg/dL [employer] Phone: Magnesiumon 05-02-2021 Magnesium [Mass/Vol] 1.5 mg/dL Low 1.6-2.6 [facility] Comment on above: Performed By: #### S ED, CRP, STROKE #### [facility] [address] [place] [address] Turbine Technician: Bowen Lemon MD No Panel InformationOrdered By: Jarek Osborn on 05-02-2021 Interpretation and review of laboratory results Abnormal [employer] Phone: [employer] Phone: POC Glucose FingerstickOrder ed By: Ning Wallace on 05-02-2021 Glucose [Mass/Vol] 171 mg/dL High 75 - 110 mg/dL [employer] Phone: Interpretation and review of laboratory results Abnormal [employer] Phone: [employer] Phone: Glucose [Mass/Vol] 152 mg/dL High 75 - 110 mg/dL [employer] Phone: Interpretation and review of laboratory results Abnormal [employer] Phone: [employer] Phone: Glucose [Mass/Vol] 170 mg/dL High 75 - 110 mg/dL [employer] Phone: Interpretation and review of laboratory results Abnormal [employer] Phone: [employer] Phone: Glucose [Mass/Vol] 163 mg/dL High 75 - 110 mg/dL [employer] Phone: Interpretation and review of laboratory results Abnormal [employer] Phone: [employer] Phone: APTTon 05-01-2021 aPTT Coag (Bld) [Time] 56.9 s High 20.5-30.5 [facility] Comment on above: Result Comment: IV Heparin Therapy Range: 48.6-77.8 Performed By: #### S ED, CRP, STROKE #### [employer] [address] [place] [id number] Turbine Technician: Bowen Lemon MD APTTOrdered By: Gee kim on 05-01-2021 aPTT Coag (Bld) [Time] 56.9 s High [facility] Work Phone: Comment on above: IV Heparin Therapy Range: 48.6-77.8 Interpretation and review of laboratory results Abnormal [facility] [email or web address] Phone: [facility] Phone: Basic Metab w/rfx MGon 05-01 (cont.) Normal [facility] Comment on above: Result Comment: Aver age GFR for 60-69 years old: 85 mL/min/1.73sq m Chronic Kidney Disease: <60 mL/min/1.73sq m Kidney failure: <15 mL/min/1.73sq m eGFR calculated using average adult body mass. Additional eGFR calculator available at: http://www.[employer]/multiple_crcl_2012.htm Performed By: #### S ED, CRP, STROKE #### [employer] [address] [place] [address] Turbine Technician: Bowen Lemon MD Anion gap [Moles/Vol] 14 mmol/L Normal 9-17 [facility] Comment on above: Performed By: #### S ED, CRP, STROKE #### [employer] [address] [place] [address] [id number] Turbine Technician: Bowen Lemon MD Calcium [Mass/Vol] 9.6 mg/dL Normal 8.6-10.4 [facility] Comment on above: Performed By: #### S ED, CRP, STROKE #### [employer] [address] [place] [id number] Turbine Technician: Bowen Lemon MD Chloride [Moles/Vol] 105 mmol/L Normal 98-107 [facility] Comment on above: Performed By: #### S ED, CRP, STROKE #### [facility] [address] [place] [address] Turbine Technician: Bowen Lemon MD CO2 [Moles/Vol] 20 mmol/L Normal 20-31 [facility] Comment on above: Performed By: #### S ED, CRP, STROKE #### [facility] [address] [place] [address] Turbine Technician: Bowen Lemon MD Creatinine [Mass/Vol] 0.62 mg/dL Low 0.70-1.20 [facility] Comment on above: Performed By: #### S ED, CRP, STROKE #### [facility] [address] [place] [address] Turbine Technician: Bowen Lemon MD GFR, Amer >60 Normal >60 [facility] Comment on above: Performed By: #### S ED, CRP, STROKE #### [facility] [address] [place] [address] Turbine Technician: Bowen Lemon MD GFR,non Amer >60 Normal >60 [facility] Comment on above: Performed By: #### S ED, CRP, STROKE #### [facility] [address] [place] [address] Turbine Technician: Bowen Lemon MD Glucose [Mass/Vol] 185 mg/dL High 70-99 [facility] Comment on above: Performed By: #### S ED, CRP, STROKE #### [facility] [address] [place] [address] Turbine Technician: Bowen Lemon MD Potassium [Moles/Vol] 4.3 mmol/L Normal 3.7-5.3 [facility] Comment on above: Result Comment: SPEC IMEN SLIGHTLY HEMOLYZED, RESULTS MAY BE ADVERSELY AFFECTED. Performed By: #### S ED, CRP, STROKE #### [facility] [address] [place] [address] Turbine Technician: Bowen Lemon MD Sodium [Moles/Vol] 139 mmol/L Normal 135-144 [facility] Comment on above: Performed By: #### S ED, CRP, STROKE #### [facility] [facility] [address] [place] [address] Turbine Technician: Bowen Lemon MD Urea nitrogen [Mass/Vol] 14 mg/dL Normal 8- [facility] Comment on above: Performed By: #### S ED, CRP, STROKE #### [facility] [address] [place] [address] Turbine Technician: Bowen Lemon MD BUN/CRE Ratio NOT REPORTED Normal - [facility] Comment on above: Performed By: #### S ED, CRP, STROKE #### [facility] [address] [place] [address] Turbine Technician: Bowen Lemon MD Staging: NOT REPORTED Normal [facility] Comment on above: Performed By: #### S ED, CRP, STROKE #### [facility] [place] [address] Turbine Technician: Bowen Lemon MD Basic Metabolic Panel w/ Ref darlene to MGOrdered By: Jarek Osborn on 05-01-2021 Anion gap [Moles/Vol] 14 mmol/L 9 - 17 mmol/L [facility] Phone: Calcium [Mass/Vol] 9.6 mg/dL 8.6 - 10. 4 mg/dL [employer] Phone: Chloride [Moles/Vol] 105 mmol/L 98 - 10 7 mmol/L [employer] Phone: CO2 [Moles/Vol] 20 mmol/L 20 - 31 mmol/L [employer] Phone: Creatinine [Mass/Vol] 0.62 mg/dL Low 0.70 - 1.20 mg/dL [employer] Phone: GFR >60 >60 mL/min [employer] Phone: GFR Non- >60 >60 mL/min [employer] Phone: GFR/1.73 sq M.predicted MDRD (S/P/Bld) [Vol rate/Area] [employer] Phone: Comment on above: Average GFR for 60-6 9 years old: 85 mL/min/1.73sq m Chronic Kidney Disease: <60 mL/min/1.73sq m Kidney failure: <15 mL/min/1.73sq m eGFR calculated using average adult body mass. Additional eGFR calculator available at: http://www.ScribbleLive/multiple_crcl_2012.htm GFR/1.73 sq M.predicted MDRD (S/P/Bld) [Vol rate/Area] NOT REPORTED [employer] Phone: Glucose [Mass/Vol] 185 mg/dL High 70 - 99 mg/dL [employer] Phone: Interpretation and review of laboratory results Abnormal [employer] Phone: Potassium [Moles/Vol] 4.3 mmol/L 3.7 - 5.3 mmol/L [employer] Phone: Comment on above: SPECIMEN SLIGHTLY HE MOLYZED, RESULTS MAY BE ADVERSELY AFFECTED. Sodium [Moles/Vol] 139 mmol/L 135 - 144 mmol/L [employer] Phone: Urea nitrogen (BldV) [Mass/Vol] 14 mg/dL 8 - 23 mg/dL [employer] Phone: Urea nitrogen/Creatinine (Bld) [Mass ratio] NOT REPORTED [employer] Phone: [facility] [employer] Phone: CBCon 05-01-2021 Erythrocyte distribution width (RBC) [Ratio] 14.3 % Normal 11.8-14.4 [facility] Comment on above: Performed By: #### S ED, CRP, STROKE #### [facility] [employer] [address] [place] [address] Turbine Technician: Bowen Lemon MD Hematocrit (Bld) [Volume fraction] 38.2 % Low 40.7-50.3 [facility] Comment on above: Performed By: #### S ED, CRP, STROKE #### [facility] [employer] [address] [place] [address] Turbine Technician: Bowen Lemon MD Hemoglobin (Bld) [Mass/Vol] 12.6 g/dL Low 13.0-17.0 [facility] Comment on above: Performed By: #### S ED, CRP, STROKE #### [facility] [employer] [address] [place] [address] Turbine Technician: Bowen Lemon MD MCH (RBC) [Entitic mass] 30.7 pg Normal 25.2-33.5 [facility] Comment on above: Performed By: #### S ED, CRP, STROKE #### [facility] [employer] [address] [place] [address] Turbine Technician: Bowen Lemon MD MCHC (RBC) [Mass/Vol] 33.0 g/dL Normal 28.4-34.8 [facility] Comment on above: Performed By: #### S ED, CRP, STROKE #### [facility] [employer] [address] [place] [address] Turbine Technician: Bowen Lemon MD MCV (RBC) [Entitic vol] 93.2 fL Normal 82.6-102.9 M [facility] Comment on above: Performed By: #### S ED, CRP, STROKE #### [facility] [employer] [address] [place] [address] Turbine Technician: Bowen Lemon MD NRBC Automated 0.0 per 100 WBC Normal 0.0 [facility] Comment on above: Performed By: #### S ED, CRP, STROKE #### [facility] [address] [place] [address] Turbine Technician: Bowen Lemon MD Platelet mean volume (Bld) [Entitic vol] 10.9 fL Normal 8.1-13.5 [facility] Comment on above: Performed By: #### S ED, CRP, STROKE #### [facility] [employer] [address] [place] [address] Turbine Technician: Bowen Lemon MD Platelets (Bld) [#/Vol] 250 10*3/uL Normal 138-453 [facility] Comment on above: Performed By: #### S ED, CRP, STROKE #### [facility] [employer] [address] [place] [address] Turbine Technician: Bowen Lemon MD RBC (Bld) [#/Vol] 4.10 10*6/uL Low 4.21-5.77 [facility] Comment on above: Performed By: #### S ED, CRP, STROKE #### [address] [address] Turbine Technician: Bowen Lemon MD WBC (Bld) [#/Vol] 7.3 10*3/uL Normal 3.5-11.3 [facility] Comment on above: Performed By: #### S ED, CRP, STROKE #### [address] [address] Turbine Technician: Bowen eLmon MD CBCOrdered By: Gee benoit on 05-01-2021 Hematocrit (Bld) [Volume fraction] 38.2 % Low 40.7 - 50.3 % [facility] [employer] Phone: Hemoglobin.gastrointest inal spec 1 Ql (Stl) 12.6 g/dL Low 13.0 - 17.0 g/dL [employer] Phone: Interpretation and review of laboratory results Abnormal [employer] Phone: MCH (RBC) [Entitic mass] 30.7 pg 25.2 - 33.5 pg [employer] Phone: MCHC (RBC) [Mass/Vol] 33.0 g/dL 28.4 - 34.8 g/dL [employer] Phone: MCV (RBC) [Entitic vol] 93.2 fL 82.6 - 102.9 fL [employer] Phone: NRBC Automated 0.0 0.0 per 100 WBC [employer] Phone: Platelet distribution width (Bld) [Ratio] 14.3 % 11.8 - 14.4 % [employer] Phone: Platelet mean volume (Bld) [Entitic vol] 10.9 fL 8.1 - 13.5 fL [employer] Phone: Platelets (Bld) [#/Vol] 250 10*3/uL [employer] Phone: RBC (Bld) [#/Vol] 4.10 10*6/uL Low 4.21 - 5.77 m/uL [employer] Phone: WBC (Bld) [#/Vol] 7.3 10*3/uL [employer] Phone: [employer] Phone: Cult,Bloodon 05-01-2021 Cult,Blood Specimen Description .BLOOD Special Requests R ARM 1 ML Culture NO GROWTH 6 DAYS Report Status FINAL 05/01/2021 Normal [facility] Comment on above: Performed By: #### S ED, CRP, STROKE #### [employer] [address] [place] [address] Turbine Technician: Bowen Lemon MD Cult,Blood Specimen Description .BLOOD Special Requests L ARM 2 ML Culture NO GROWTH 6 DAYS Report Status FINAL 05/01/2021 Normal [facility] Comment on above: Performed By: #### S ED, CRP, STROKE #### [employer] [address] [place] [address] Turbine Technician: Bowen Lemon MD Culture, Blood 1Ordered By: Jarek Osborn on 05-01-2021 Special Requests R ARM 1 ML [employer] Phone: Special Requests L ARM 2 ML [employer] Phone: Specimen Description .BLOOD [employer] Phone: [employer] Phone: Laboratory - Microbiology an d Antimicrobial susceptibilityOrdered By: Jarek Osborn on 05-01-2021 Bacteria identified Cx Nom (Unsp spec) NO GROWTH 6 DAYS [employer] Phone: POC Glucose FingerstickOrder ed By: Ning Wallace on 05-01-2021 Glucose [Mass/Vol] 207 mg/dL High 75 - 110 mg/dL [employer] Phone: Interpretation and review of laboratory results Abnormal [employer] Phone: [employer] Phone: Glucose [Mass/Vol] 204 mg/dL High 75 - 110 mg/dL [employer] Phone: Interpretation and review of laboratory results Abnormal [employer] Phone: [employer] Phone: Glucose [Mass/Vol] 170 mg/dL High 75 - 110 mg/dL [employer] Phone: Interpretation and review of laboratory results Abnormal [employer] Phone: [employer] Phone: APTTon 04-30-2021 aPTT Coag (Bld) [Time] 55.9 s High 20.5-30.5 [facility] Comment on above: Result Comment: IV Heparin Therapy Range: 48.6-77.8 Performed By: #### S ED, CRP, STROKE #### [facility] [address] [place] [phone] Turbine Technician: Bowen Lemon MD aPTT Coag (Bld) [Time] 71.1 s High 20.5-30.5 [facility] Comment on above: Result Comment: IV Heparin Therapy Range: 48.6-77.8 Performed By: #### S ED, CRP, STROKE #### [facility] [address] [place] [address] [phone] Turbine Technician: Bowen Lemon MD aPTT Coag (Bld) [Time] 59.1 s High 20.5-30.5 [facility] Comment on above: Result Comment: IV Heparin Therapy Range: 48.6-77.8 Performed By: #### S ED, CRP, STROKE #### [employer] [address] [place] [address] [phone] Turbine Technician: Bowen Lemon MD APTTOrdered By: Ning martines on 04-30-2021 aPTT Coag (Bld) [Time] 55.9 s High [facility] [email or web address] Phone: Comment on above: IV Heparin Therapy Range: 48.6-77.8 Interpretation and review of laboratory results Abnormal [employer] Phone: [employer] Phone: APTTOrdered By: Gee kim on 04-30-2021 aPTT Coag (Bld) [Time] 71.1 s High [facility] Phone: Comment on above: IV Heparin Therapy Range: 48.6-77.8 Interpretation and review of laboratory results Abnormal [facility] [email or web address] Phone: [facility] [email or web address] Phone: aPTT Coag (Bld) [Time] 59.1 s High [facility] [email or web address] Phone: Comment on above: IV Heparin Therapy Range: 48.6-77.8 Interpretation and review of laboratory results Abnormal [facility] Phone: [facility] [email or web address] Phone: Basic Metab w/rfx MGon 04-30 (cont.) Normal [facility] Comment on above: Result Comment: Aver age GFR for 60-69 years old: 85 mL/min/1.73sq m Chronic Kidney Disease: <60 mL/min/1.73sq m Kidney failure: <15 mL/min/1.73sq m eGFR calculated using average adult body mass. Additional eGFR calculator available at: http://www.ScribbleLive/multiple_crcl_2012.htm Performed By: #### S ED, CRP, STROKE #### [facility] [address] [place] [address] Turbine Technician: Bowen Lemon MD Anion gap [Moles/Vol] 12 mmol/L Normal 9-17 [facility] Comment on above: Performed By: #### S ED, CRP, STROKE #### [facility] [address] [place], [place] [phone] Turbine Technician: Bowen Lemon MD Calcium [Mass/Vol] 9.2 mg/dL Normal 8.6-10.4 [facility] Comment on above: Performed By: #### S ED, CRP, STROKE #### [facility] [address] [place] [address] [phone] Turbine Technician: Bowen Lemon MD Chloride [Moles/Vol] 103 mmol/L Normal 98-107 [facility] Comment on above: Performed By: #### S ED, CRP, STROKE #### [facility] [address] [place] [address] Turbine Technician: Bowen Lemon MD CO2 [Moles/Vol] 19 mmol/L Low 20-31 [facility] Comment on above: Performed By: #### S ED, CRP, STROKE #### [facility] [address] [place] [address] Turbine Technician: Bowen Lemon MD Creatinine [Mass/Vol] 0.74 mg/dL Normal 0.70-1.20 [facility] Comment on above: Performed By: #### S ED, CRP, STROKE #### [facility] [address] [place] [address] Turbine Technician: Bowen Lemon MD GFR, Amer >60 Normal >60 [facility] Comment on above: Performed By: #### S ED, CRP, STROKE #### [facility] [address] [place] [address] Turbine Technician: Bowen Lemon MD GFR,non Amer >60 Normal >60 [facility] Comment on above: Performed By: #### S ED, CRP, STROKE #### [facility] [address] [place] [address] Turbine Technician: Bowen Lemon MD Glucose [Mass/Vol] 180 mg/dL High 70-99 [facility] Comment on above: Performed By: #### S ED, CRP, STROKE #### [facility] [address] [place] [address] Turbine Technician: Bowen Lemon MD Potassium [Moles/Vol] 4.0 mmol/L Normal 3.7-5.3 [facility] Comment on above: Performed By: #### S ED, CRP, STROKE #### [facility] [address] [place] [address] Turbine Technician: Bowen Lemon MD Sodium [Moles/Vol] 134 mmol/L Low 135-144 [facility] Comment on above: Performed By: #### S ED, CRP, STROKE #### [facility] [address] [place] [address] Turbine Technician: Bowen Lemon MD Urea nitrogen [Mass/Vol] 9 mg/dL Normal 8- [facility] Comment on above: Performed By: #### S ED, CRP, STROKE #### [facility] [address] [place] [address] Turbine Technician: Bowen Lemon MD BUN/CRE Ratio NOT REPORTED Normal - [facility] Comment on above: Performed By: #### S ED, CRP, STROKE #### [facility] [address] [place] [address] Turbine Technician: Bowen Lemon MD Staging: NOT REPORTED Normal [facility] Comment on above: Performed By: #### S ED, CRP, STROKE #### [facility] [address] [place] [address] Turbine Technician: Bowen Lemon MD Basic Metabolic Panel w/ Ref darlene to MGOrdered By: Jarek Osborn on 04-30-2021 Anion gap [Moles/Vol] 12 mmol/L 9 - 17 mmol/L [employer] Phone: Calcium [Mass/Vol] 9.2 mg/dL 8.6 - 10. 4 mg/dL [employer] Phone: Chloride [Moles/Vol] 103 mmol/L 98 - 10 7 mmol/L [employer] Phone: CO2 [Moles/Vol] 19 mmol/L Low 20 - 31 mmol/L [employer] Phone: Creatinine [Mass/Vol] 0.74 mg/dL 0.70 - 1.20 mg/dL [employer] Phone: GFR >60 >60 mL/min [employer] Phone: GFR Non- >60 >60 mL/min [employer] Phone: GFR/1.73 sq M.predicted MDRD (S/P/Bld) [Vol rate/Area] [employer] Phone: Comment on above: Average GFR for 60-6 9 years old: 85 mL/min/1.73sq m Chronic Kidney Disease: <60 mL/min/1.73sq m Kidney failure: <15 mL/min/1.73sq m eGFR calculated using average adult body mass. Additional eGFR calculator available at: http://www.ScribbleLive/multiple_crcl_2012.htm GFR/1.73 sq M.predicted MDRD (S/P/Bld) [Vol rate/Area] NOT REPORTED [employer] Phone: Glucose [Mass/Vol] 180 mg/dL High 70 - 99 mg/dL [employer] Phone: Interpretation and review of laboratory results Abnormal [employer] Phone: Potassium [Moles/Vol] 4.0 mmol/L 3.7 - 5.3 mmol/L [employer] Phone: Sodium [Moles/Vol] 134 mmol/L Low 135 - 144 mmol/L [employer] Phone: Urea nitrogen (BldV) [Mass/Vol] 9 mg/dL 8 - 23 mg/dL [employer] Phone: Urea nitrogen/Creatinine (Bld) [Mass ratio] NOT REPORTED [employer] Phone: [employer] Phone: POC Glucose FingerstickOrder ed By: Ning Wallace on 04-30-2021 Glucose [Mass/Vol] 242 mg/dL High 75 - 110 mg/dL [employer] Phone: Interpretation and review of laboratory results Abnormal [employer] Phone: [employer] Phone: Glucose [Mass/Vol] 220 mg/dL High 75 - 110 mg/dL [employer] Phone: [phone] Interpretation and review of laboratory results Abnormal [employer] Phone: [phone] [employer] Phone: Glucose [Mass/Vol] 189 mg/dL High 75 - 110 mg/dL [employer] Phone: Interpretation and review of laboratory results Abnormal [employer] Phone: [employer] Phone: Glucose [Mass/Vol] 226 mg/dL High 75 - 110 mg/dL [employer] Phone: Interpretation and review of laboratory results Abnormal [employer] Phone: [employer] Phone: APTTon 04-29-2021 aPTT Coag (Bld) [Time] 94.2 s Critically high 20.5-30. 5 [facility] Comment on above: Result Comment: IV Heparin Therapy Range: 48.6-77.8 Performed By: #### S ED, CRP, STROKE #### [employer] [facility] [place], [place] [id number] Turbine Technician: Bowen Lemon MD aPTT Coag (Bld) [Time] 46.3 s High 20.5-30.5 [facility] Comment on above: Result Comment: IV Heparin Therapy Range: 48.6-77.8 Performed By: #### S ED, CRP, STROKE #### [employer] [address] [place], [place] [id number] Turbine Technician: Bowen Lemon MD aPTT Coag (Bld) [Time] 69.2 s High 20.5-30.5 [facility] Comment on above: Result Comment: IV Heparin Therapy Range: 48.6-77.8 Performed By: #### S ED, CRP, STROKE #### [facility] [address] [place], [place] [id number] Turbine Technician: Bowen Lemon MD aPTT Coag (Bld) [Time] 69.1 s High 20.5-30.5 [facility] Comment on above: Result Comment: IV Heparin Therapy Range: 48.6-77.8 Performed By: #### S ED, CRP, STROKE #### [facility] [address] [place], [place] [phone] Turbine Technician: Bowen Lemon MD aPTT Coag (Bld) [Time] 49.2 s High 20.5-30.5 [facility] Comment on above: Result Comment: IV Heparin Therapy Range: 48.6-77.8 Performed By: #### P TT ####[employer] [address] [place], [place] [id number] Lab Director: Bowen Lemon MD APTTOrdered By: Ning martines on 04-29-2021 aPTT Coag (Bld) [Time] 94.2 s Critically high [facility] Phone: Comment on above: IV Heparin Therapy Range: 48.6-77.8 Interpretation and review of laboratory results Abnormal [employer] Phone: [employer] Phone: aPTT Coag (Bld) [Time] 46.3 s High [facility] Phone: Comment on above: IV Heparin Therapy Range: 48.6-77.8 Interpretation and review of laboratory results Abnormal [employer] Phone: [employer] Phone: aPTT Coag (Bld) [Time] 69.2 s High [facility] Work Phone: Comment on above: IV Heparin Therapy Range: 48.6-77.8 Interpretation and review of laboratory results Abnormal [facility] [email or web address] Phone: [facility] [email or web address] Phone: aPTT Coag (Bld) [Time] 69.1 s High [facility] [email or web address] Phone: Comment on above: IV Heparin Therapy Range: 48.6-77.8 Interpretation and review of laboratory results Abnormal [facility] [email or web address] Phone: [facility] [email or web address] Phone: Basic Metab w/rfx MGon 04-29 (cont.) Normal [facility] Comment on above: Result Comment: Aver age GFR for 60-69 years old: 85 mL/min/1.73sq m Chronic Kidney Disease: <60 mL/min/1.73sq m Kidney failure: <15 mL/min/1.73sq m eGFR calculated using average adult body mass. Additional eGFR calculator available at: http://www.[employer]io/multiple_crcl_2012.htm Performed By: #### Patrick WELLS BMPX ####[facility] [address] [place] [address] Lab Director: Bowen Lemon MD Anion gap [Moles/Vol] 10 mmol/L Normal 9-17 [facility] Comment on above: Performed By: #### C RUSSELL BMPX ####[facility] [address] [place], [place] [id number] Lab Director: Bowen Lemon MD Calcium [Mass/Vol] 8.9 mg/dL Normal 8.6-10.4 [facility] Comment on above: Performed By: #### C RUSSELL, BMPX ####[facility] [address] [place], [place] [id number] lab Director: Bowen Lemon MD Chloride [Moles/Vol] 106 mmol/L Normal 98-107 [facility] Comment on above: Performed By: #### C BC, BMPX ####[facility] [address] [place], [place] [phone] Director: Bowen Lemon MD CO2 [Moles/Vol] 22 mmol/L Normal 20-31 [facility] Comment on above: Performed By: #### C BC, BMPX ####[facility] [address] [place] [address] Lab Director: Bowen Lemon MD Creatinine [Mass/Vol] 0.72 mg/dL Normal 0.70-1.20 [facility] Comment on above: Performed By: #### C BC, BMPX ####[facility] [address] [place] [address] Lab Director: Bowen Lemon MD GFR, Amer >60 Normal >60 [facility] Comment on above: Performed By: #### C BC, BMPX ####[facility] [address] [place], [place] [phone] Director: Bowen Lemon MD GFR,non Amer >60 Normal >60 [facility] Comment on above: Performed By: #### C BC, BMPX ####[facility] [address] [place], [place] [phone] Director: Bowen Lemon MD Glucose [Mass/Vol] 172 mg/dL High 70-99 [facility] Comment on above: Performed By: #### C BC, BMPX ####[facility] [address] [place], [place] [phone] Director: Bowen Lemon MD Potassium [Moles/Vol] 3.9 mmol/L Normal 3.7-5.3 [facility] Comment on above: Performed By: #### C BC, BMPX ####[facility] [address] [place], [place] [phone] Director: Bowen Lemon MD Sodium [Moles/Vol] 138 mmol/L Normal 135-144 [facility] Comment on above: Performed By: #### C BC, BMPX ####[facility] [address] [place] [address] Lab Director: Bowen Lemon MD Urea nitrogen [Mass/Vol] 11 mg/dL Normal 8- [facility] Comment on above: Performed By: #### C BC, BMPX ####[facility] [address] [place] [address] Lab Director: Bowen Lemon MD BUN/CRE Ratio NOT REPORTED Normal 9- [facility] Comment on above: Performed By: #### C BC, BMPX ####[facility] [address] [place] [address] Lab Director: Bowen Lemon MD Staging: NOT REPORTED Normal [facility] Comment on above: Performed By: #### C BC, BMPX ####[facility] [address] [place] [address] Lab Director: Bowen Lemon MD Basic Metabolic Panel w/ Ref darlene to MGOrdered By: Jarek Osborn on 04-29-2021 Anion gap [Moles/Vol] 10 mmol/L 9 - 17 mmol/L [employer] Phone: Calcium [Mass/Vol] 8.9 mg/dL 8.6 - 10. 4 mg/dL [employer] Phone: Chloride [Moles/Vol] 106 mmol/L 98 - 10 7 mmol/L [employer] Phone: CO2 [Moles/Vol] 22 mmol/L 20 - 31 mmol/L [employer] Phone: Creatinine [Mass/Vol] 0.72 mg/dL 0.70 - 1.20 mg/dL [employer] Phone: GFR >60 >60 mL/min [employer] Phone: GFR Non- >60 >60 mL/min [employer] Phone: GFR/1.73 sq M.predicted MDRD (S/P/Bld) [Vol rate/Area] [employer] Phone: Comment on above: Average GFR for 60-6 9 years old: 85 mL/min/1.73sq m Chronic Kidney Disease: <60 mL/min/1.73sq m Kidney failure: <15 mL/min/1.73sq m eGFR calculated using average adult body mass. Additional eGFR calculator available at: http://www.ScribbleLive/multiple_crcl_2012.htm GFR/1.73 sq M.predicted MDRD (S/P/Bld) [Vol rate/Area] NOT REPORTED [employer] Phone: Glucose [Mass/Vol] 172 mg/dL High 70 - 99 mg/dL [employer] Phone: Interpretation and review of laboratory results Abnormal [employer] Phone: Potassium [Moles/Vol] 3.9 mmol/L 3.7 - 5.3 mmol/L [employer] Phone: Sodium [Moles/Vol] 138 mmol/L 135 - 144 mmol/L [employer] Phone: Urea nitrogen (BldV) [Mass/Vol] 11 mg/dL 8 - 23 mg/dL [employer] Phone: Urea nitrogen/Creatinine (Bld) [Mass ratio] NOT REPORTED [employer] Phone: [employer] Phone: CBCon 04-29-2021 Erythrocyte distribution width (RBC) [Ratio] 14.1 % Normal 11.8-14.4 [facility] Comment on above: Performed By: #### C BC, BMPX ####[facility] [address] [place] [address] Lab Director: Bowen Lemon MD Hematocrit (Bld) [Volume fraction] 37.7 % Low 40.7-50.3 [facility] Comment on above: Performed By: #### C BC, BMPX ####[facility] [address] [place] [address] Lab Director: Bowen Lemon MD Hemoglobin (Bld) [Mass/Vol] 12.4 g/dL Low 13.0-17.0 [facility] Comment on above: Performed By: #### C BC, BMPX ####[facility] [address] [place] [address] [phone] Director: Bowen Lemon MD MCH (RBC) [Entitic mass] 30.2 pg Normal 25.2-33.5 [facility] Comment on above: Performed By: #### C BC, BMPX ####[facility] [address] [place] [address] Lab Director: Bowen Lemon MD MCHC (RBC) [Mass/Vol] 32.9 g/dL Normal 28.4-34.8 [facility] Comment on above: Performed By: #### C BC, BMPX ####[facility] [address] [place] [address] Lab Director: Bowen Lemon MD MCV (RBC) [Entitic vol] 92.0 fL Normal 82.6-102.9 [facility] Comment on above: Performed By: #### C BC, BMPX ####[facility] [address] [place] [address] Lab Director: Bowen Lemon MD NRBC Automated 0.0 per 100 WBC Normal 0.0 [facility] Comment on above: Performed By: #### C BC, BMPX ####[facility] [address] [place] [address], [place] [phone] Director: Bowen Lemon MD Platelet mean volume (Bld) [Entitic vol] 10.8 fL Normal 8.1-13.5 [facility] Comment on above: Performed By: #### C BC, BMPX ####[facility] [address] [place], [place] [phone] Director: Bowen Lemon MD Platelets (Bld) [#/Vol] 202 10*3/uL Normal 138-453 [facility] Comment on above: Performed By: #### C BC, BMPX ####[facility] [address] [place], [place] [phone] Director: Bowen Lemon MD RBC (Bld) [#/Vol] 4.10 10*6/uL Low 4.21-5.77 [facility] Comment on above: Performed By: #### C BC, BMPX ####[facility] [address] [place] [address] [phone] Director: Bowen Lemon MD WBC (Bld) [#/Vol] 7.5 10*3/uL Normal 3.5-11.3 [facility] Comment on above: Performed By: #### C BC, BMPX ####[address] [phone] Director: Bowen Lemon MD CBCOrdered By: Gee ebnoit on 04-29-2021 Hematocrit (Bld) [Volume fraction] 37.7 % Low 40.7 - 50.3 % [employer] Phone: Hemoglobin.gastrointest inal spec 1 Ql (Stl) 12.4 g/dL Low 13.0 - 17.0 g/dL [employer] Phone: Interpretation and review of laboratory results Abnormal [employer] Phone: MCH (RBC) [Entitic mass] 30.2 pg 25.2 - 33.5 pg [employer] Phone: MCHC (RBC) [Mass/Vol] 32.9 g/dL 28.4 - 34.8 g/dL [employer] Phone: MCV (RBC) [Entitic vol] 92.0 fL 82.6 - 102.9 fL [employer] Phone: NRBC Automated 0.0 0.0 per 100 WBC [employer] Phone: Platelet distribution width (Bld) [Ratio] 14.1 % 11.8 - 14.4 % [employer] Phone: Platelet mean volume (Bld) [Entitic vol] 10.8 fL 8.1 - 13.5 fL [employer] Phone: Platelets (Bld) [#/Vol] 202 10*3/uL [employer] Phone: RBC (Bld) [#/Vol] 4.10 10*6/uL Low 4.21 - 5.77 m/uL [employer] Phone: WBC (Bld) [#/Vol] 7.5 10*3/uL [employer] Phone: [employer] Phone: POC Glucose FingerstickOrder ed By: Ning Wallace on 04-29-2021 Glucose [Mass/Vol] 232 mg/dL High 75 - 110 mg/dL [employer] Phone: Interpretation and review of laboratory results Abnormal [employer] Phone: [employer] Phone: Glucose [Mass/Vol] 200 mg/dL High 75 - 110 mg/dL [employer] Phone: Interpretation and review of laboratory results Abnormal [employer] Phone: [employer] Phone: Glucose [Mass/Vol] 186 mg/dL High 75 - 110 mg/dL [employer] Phone: Interpretation and review of laboratory results Abnormal [employer] Phone: [employer] Phone: Glucose [Mass/Vol] 163 mg/dL High 75 - 110 mg/dL [employer] Phone: Interpretation and review of laboratory results Abnormal [employer] Phone: [employer] Phone: APTTOrdered By: Ning martines on 04-28-2021 aPTT Coag (Bld) [Time] 49.2 s High [employer] Phone: Comment on above: IV Heparin Therapy Range: 48.6-77.8 Interpretation and review of laboratory results Abnormal [employer] Phone: [employer] Phone: aPTT Coag (Bld) [Time] 71.6 s High [employer] Work Phone: Comment on above: IV Heparin Therapy Range: 48.6-77.8 Interpretation and review of laboratory results Abnormal [employer] Phone: [employer] Phone: aPTT Coag (Bld) [Time] 37.7 s High [employer] Work Phone: Comment on above: IV Heparin Therapy Range: 48.6-77.8 Interpretation and review of laboratory results Abnormal [employer] Phone: [employer] Phone: aPTT Coag (Bld) [Time] 42.9 s High [employer] Work Phone: Comment on above: IV Heparin Therapy Range: 48.6-77.8 Interpretation and review of laboratory results Abnormal [facility] [email or web address] Phone: [employer] Phone: APTTon 04-28-2021 aPTT Coag (Bld) [Time] 71.6 s High 20.5-30.5 [facility] Comment on above: Result Comment: IV Heparin Therapy Range: 48.6-77.8 Performed By: #### P TT ####[facility] [address] [place] [address] lab Director: Bwoen Lemon MD aPTT Coag (Bld) [Time] 37.7 s High 20.5-30.5 [facility] Comment on above: Result Comment: IV Heparin Therapy Range: 48.6-77.8 Performed By: #### P TT ####[address] [address] lab Director: Bowen Lemon MD aPTT Coag (Bld) [Time] 42.9 s High 20.5-30.5 [facility] Comment on above: Result Comment: IV Heparin Therapy Range: 48.6-77.8 Performed By: #### P TT ####[address] [address] lab Director: Bowen Lemon MD Basic Metab w/rfx MGon 04-28 (cont.) Normal [facility] Comment on above: Result Comment: Aver age GFR for 60-69 years old: 85 mL/min/1.73sq m Chronic Kidney Disease: <60 mL/min/1.73sq m Kidney failure: <15 mL/min/1.73sq m eGFR calculated using average adult body mass. Additional eGFR calculator available at: http://www.[employer].Nexio/multiple_crcl_2012.htm Performed By: #### B MPX, MG ####[address] [address] lab Director: Bowen Lemon MD Anion gap [Moles/Vol] 11 mmol/L Normal 9-17 [facility] Comment on above: Performed By: #### B MPX, MG ####[facility] [address] [place] [address] lab Director: Bowen Lemon MD Calcium [Mass/Vol] 9.0 mg/dL Normal 8.6-10.4 [facility] Comment on above: Performed By: #### B MPX, MG ####[facility] [address] [place] [address] lab Director: Bowen Lemon MD Chloride [Moles/Vol] 104 mmol/L Normal 98-107 [facility] Comment on above: Performed By: #### B MPX, MG ####[facility] [address] [place] [address] Lab Director: Bowen Lemon MD CO2 [Moles/Vol] 21 mmol/L Normal 20-31 [facility] Comment on above: Performed By: #### B MPX, MG ####[facility] [address] [place] [address] Lab Director: Bowen Lemon MD Creatinine [Mass/Vol] 0.77 mg/dL Normal 0.70-1.20 [facility] Comment on above: Performed By: #### B MPX, MG ####[facility] [address] [place] [address] Lab Director: Bowen Lemon MD GFR, Amer >60 Normal >60 [facility] Comment on above: Performed By: #### B MPX, MG ####[facility] [address] [place] [address] Lab Director: Bowen Lemon MD GFR,non Amer >60 Normal >60 [facility] Comment on above: Performed By: #### B MPX, MG ####[facility] [address] [place], [place] [phone] Director: Bowen Lemon MD Glucose [Mass/Vol] 250 mg/dL High 70-99 [facility] Comment on above: Performed By: #### B MPX, MG ####[facility] [address] [place], [place] [phone] Director: Bowen Lemon MD Potassium [Moles/Vol] 3.7 mmol/L Normal 3.7-5.3 [facility] Comment on above: Performed By: #### B MPX, MG ####[facility] [address] [place], [place] [phone] Director: Bowen Lemon MD Sodium [Moles/Vol] 136 mmol/L Normal 135-144 [facility] Comment on above: Performed By: #### B MPX, MG ####[facility] [address] [place], [place] [phone] Director: Bowen Lemon MD Urea nitrogen [Mass/Vol] 10 mg/dL Normal 8-23 [facility] Comment on above: Performed By: #### B MPX, MG ####[facility] [address] [place], [place] [phone] Director: Bowen Lemon MD BUN/CRE Ratio NOT REPORTED Normal 9-20 [facility] Comment on above: Performed By: #### B MPX, MG ####[facility] [address] [place], [place] [phone] Director: Bowen Lemon MD Staging: NOT REPORTED Normal [facility] Comment on above: Performed By: #### B MPX, MG ####[facility] [address] [place], [place] [phone] Director: Bowen Lemon MD Basic Metabolic Panel w/ Ref darlene to MGOrdered By: Jarek Osborn on 04-28-2021 Anion gap [Moles/Vol] 11 mmol/L 9 - 17 mmol/L [employer] Phone: Calcium [Mass/Vol] 9.0 mg/dL 8.6 - 10. 4 mg/dL [employer] Phone: Chloride [Moles/Vol] 104 mmol/L 98 - 10 7 mmol/L [employer] Phone: CO2 [Moles/Vol] 21 mmol/L 20 - 31 mmol/L [employer] Phone: Creatinine [Mass/Vol] 0.77 mg/dL 0.70 - 1.20 mg/dL [employer] Phone: GFR >60 >60 mL/min [employer] Phone: GFR Non- >60 >60 mL/min [employer] Phone: GFR/1.73 sq M.predicted MDRD (S/P/Bld) [Vol rate/Area] [employer] Phone: Comment on above: Average GFR for 60-6 9 years old: 85 mL/min/1.73sq m Chronic Kidney Disease: <60 mL/min/1.73sq m Kidney failure: <15 mL/min/1.73sq m eGFR calculated using average adult body mass. Additional eGFR calculator available at: http://www.[employer]exio/multiple_crcl_2012.htm GFR/1.73 sq M.predicted MDRD (S/P/Bld) [Vol rate/Area] NOT REPORTED [employer] Phone: Glucose [Mass/Vol] 250 mg/dL High 70 - 99 mg/dL [employer] Phone: Interpretation and review of laboratory results Abnormal [employer] Phone: Potassium [Moles/Vol] 3.7 mmol/L 3.7 - 5.3 mmol/L [employer] Phone: Sodium [Moles/Vol] 136 mmol/L 135 - 144 mmol/L [employer] Phone: Urea nitrogen (BldV) [Mass/Vol] 10 mg/dL 8 - 23 mg/dL [employer] Phone: Urea nitrogen/Creatinine (Bld) [Mass ratio] NOT REPORTED [employer] Phone: [employer] Phone: Catheterization and angiogra phy procedure details panelOrdered By: Andreas Shepherd on 04-28-2021 Cardiac Diagnostic R eport Demographics Patient REHAN Bryant Date of Study 04/28/2021 Name Date of 1955 Gender Male Age 65 year(s) Race Room [id number]^DANIELLE^ANDREAS Height: 72 inch, 182.88 cm Number Corporate [id number] Weight: 223 pounds, 101.2 ID # kg Patient [id number] BSA: 2.23 m^2 BMI: 30.24 Acct # kg/m^2 MR # [id number] Performing Vimal Geronimo Physician Referring # Physician Assisting Physician Additional Comments H&P reviewed and patient examined by performing physician prior to the procedure on 04/28/21 at No changes noted. If changes, see note below. ASA Classification / Mallampati : per Physician. ASA & Mallampati documented in [facility] by Physician. Patient medications reviewed [...] Left coronary angiography. Contrast Material: - Isovue 12177 ml Fluoroscopy Time: Diagnostic: 7:54 minutes. Total: [...] assessed as CCS III according to the Chinese clinical classification. Hemodynamics Condition: Baseline Room Air Estimated: 265.46Heart Rate: 76 bpm Pressure +-----+ + !Site !Pressure ! +-----+ + !AO !124/74 (94) ! +-----+ + !AO !122/69 (91) ! +-----+ + !LV !104/2 ,7 ! +-----+ + !LV !138/0 ,8 ! +-----+ + Valve Gradients and Areas + +---------+--- -- (more content not included)... [employer] Work Phone: Adam, Mhpn Incoming C ardio Results From Cpacs/Ge - 04/28/2021 10:30 AM EDT Cardiac Diagnostic Report Demographics Patient REHAN Bryant Date of Study 04/28/2021 Name Date of 1955 Gender Male Age 65 year(s) Race Room [id number]^DANIELLE^ANDREAS Height: 72 inch, 182.88 cm Number Corporate [id number] Weight: 223 pounds, 101.2 ID # kg Patient [id number] BSA: 2.23 m^2 BMI: 30.24 Acct # kg/m^2 MR # [id number] Performing Vimal Geronimo Physician Referring # Physician [...] Left coronary angiography. Contrast Material: - Isovue 66360 ml Fluoroscopy Time: Diagnostic: 7:54 minutes. Total: [...] assessed as CCS III according to the Chinese clinical classification. Hemodynamics Condition: Baseline Room Air [...] ------+---------+--------- -+---------+ + Shunts Oxygen Values O2 Hwwdbeye223.44O2 Lknqpahvjvv904.46 [employer] Phone: [employer] Phone: Catheterization and angiogra phy procedure details panelOrdered By: Unknown Result on 04-28-2021 [employer] Phone: ECHO Complete 2D W Doppler W ColorOrdered By: Babak Mancuso on 04-28-2021 Transthoracic Echocardiography Report (TTE) Patient Name REHAN Date of Study 04/28/2021 YOEL Bryant Date of 1955 Gender Male Age 65 year(s) Race Room Number 1015 Height: 72 inch, 182.88 cm Corporate ID [id number] Weight: 223 pounds, 101.2 kg # Patient Acct [id number] BSA: 2.23 m^2 BMI: 30.24 # kg/m^2 MR # [id number] Safety And Occupational Health Manager TreBrittaneySmitha Interpreting Physician Marcello Cole Fellow Referring Nurse Practitioner Interpreting Referring Physician Babak Mancuso Fellow Type of Study TTE procedure:2D Echocardiogram, M-Mode, Doppler, Color Doppler, Bubble Study. Procedure Date Date: 04/28/2021 Start: 09:19 AM Study Location: [facility] Technical Quality: Fair visualization Indications:Stroke, Non-STEMI and [...] m/s Tricuspid: Pulmonic: (more content not included)... [employer] Work Phone: Adam, pn Incoming C ardio Results From Gesplan/Ge - 04/28/2021 2:48 PM EDT Transthoracic Echocardiography Report (TTE) Patient Name ICKES Date of Study 04/28/2021 YOEL Bryant Date of 1955 Gender Male Age 65 year(s) Race Room Number 1015 Height: 72 inch, 182.88 cm Corporate ID [id number] Weight: 223 pounds, 101.2 kg # Patient Acct [id number] BSA: 2.23 m^2 BMI: 30.24 # kg/m^2 MR # [id number] Safety And Occupational Health Manager Smitha [place] Interpreting Physician Marcello Cole Fellow Referring Nurse Practitioner Interpreting Referring Physician Babak Mancuso Fellow Type of Study TTE procedure:2D Echocardiogram, M-Mode, Doppler, Color Doppler, Bubble Study. Procedure Date Date: 04/28/2021 Start: 09:19 AM Study Location: [facility] Technical Quality: Fair visualization Indications:Stroke, Non-STEMI and [...] Wall E' velocity:0.07 m/s Lateral Wall E/E':10.8 [employer] Phone: [employer] Phone: Magnesiumon 04-28-2021 Magnesium [Mass/Vol] 1.5 mg/dL Low 1.6-2.6 [facility] Comment on above: Performed By: #### B MPX, MG ####[employer] [address] [place] [address] lab Director: Bowen Lemon MD MagnesiumOrdered By: Jarek Osborn on 04-28-2021 Interpretation and review of laboratory results Abnormal [employer] Phone: Magnesium [Mass/Vol] 1.5 mg/dL Low 1.6 - 2 .6 mg/dL [employer] Phone: [employer] Phone: POC Glucose FingerstickOrder ed By: Ning Wallace on 04-28-2021 Glucose [Mass/Vol] 182 mg/dL High 75 - 110 mg/dL [employer] Phone: Interpretation and review of laboratory results Abnormal [employer] Phone: [employer] Phone: Glucose [Mass/Vol] 202 mg/dL High 75 - 110 mg/dL [employer] Phone: Interpretation and review of laboratory results Abnormal [employer] Phone: [employer] Phone: Glucose [Mass/Vol] 190 mg/dL High 75 - 110 mg/dL [employer] Phone: Interpretation and review of laboratory results Abnormal [employer] Phone: [employer] Phone: Glucose [Mass/Vol] 198 mg/dL High 75 - 110 mg/dL [employer] Phone: Interpretation and review of laboratory results Abnormal [employer] Phone: [employer] Phone: APTTon 04-27-2021 aPTT Coag (Bld) [Time] 55.7 s High 20.5-30.5 [facility] Comment on above: Result Comment: IV Heparin Therapy Range: 48.6-77.8 Performed By: #### P TT ####[place] [address] Lab Director: Bowen Lemon MD aPTT Coag (Bld) [Time] 71.0 s High 20.5-30.5 [facility] Comment on above: Result Comment: IV Heparin Therapy Range: 48.6-77.8 Performed By: #### P TT ####[facility] [address] [place] [address] Lab Director: Bowen Lemon MD aPTT Coag (Bld) [Time] 68.8 s High 20.5-30.5 [facility] Comment on above: Result Comment: IV Heparin Therapy Range: 48.6-77.8 Performed By: #### P TT ####[address] [id number] Lab Director: Bowen Lemon MD aPTT Coag (Bld) [Time] 73.8 s High 20.5-30.5 [facility] Comment on above: Result Comment: IV Heparin Therapy Range: 48.6-77.8 Performed By: #### P TT ####[facility] [address]jhjftj[address] [place] [address] lab Director: Bowen Lemon MD aPTT Coag (Bld) [Time] 64.8 s High 20.5-30.5 [facility] Comment on above: Result Comment: IV Heparin Therapy Range: 48.6-77.8 Performed By: #### P TT ####[facility] [address]hrclu[address] [place] [address] lab Director: Bowen Lemon MD APTTOrdered By: Ning martines on 04-27-2021 aPTT Coag (Bld) [Time] 55.7 s High [facility] Phone: Comment on above: IV Heparin Therapy Range: 48.6-77.8 Interpretation and review of laboratory results Abnormal [employer] Phone: [employer] Phone: aPTT Coag (Bld) [Time] 71.0 s High [facility] Phone: Comment on above: IV Heparin Therapy Range: 48.6-77.8 Interpretation and review of laboratory results Abnormal [employer] Phone: [employer] Phone: aPTT Coag (Bld) [Time] 68.8 s High [facility] Phone: Comment on above: IV Heparin Therapy Range: 48.6-77.8 Interpretation and review of laboratory results Abnormal [employer] Phone: [employer] Phone: aPTT Coag (Bld) [Time] 73.8 s High [facility] Work Phone: Comment on above: IV Heparin Therapy Range: 48.6-77.8 Interpretation and review of laboratory results Abnormal [facility] Phone: [employer] Phone: APTTOrdered By: Gee kim on 04-27-2021 aPTT Coag (Bld) [Time] 64.8 s High [facility] [employer] Work Phone: Comment on above: IV Heparin Therapy Range: 48.6-77.8 Interpretation and review of laboratory results Abnormal [facility] Phone: [employer] Phone: Basic Metab w/rfx MGon 04-27 (cont.) Normal [facility] Comment on above: Result Comment: Aver age GFR for 60-69 years old: 85 mL/min/1.73sq m Chronic Kidney Disease: <60 mL/min/1.73sq m Kidney failure: <15 mL/min/1.73sq m eGFR calculated using average adult body mass. Additional eGFR calculator available at: http://www.[employer]/multiple_crcl_2012.htm Performed By: #### C BC, BMPX, MG ####[facility] RouteJhqs[address]znjtjo[address] [place], [place] [id number] Lab Director: Bowen Lemon MD Anion gap [Moles/Vol] 11 mmol/L Normal 9-17 [facility] Comment on above: Performed By: #### C BC, BMPX, MG ####[facility] [address]vimjg[address] [place], [place] [id number] Lab Director: Bowen Lemon MD Calcium [Mass/Vol] 8.9 mg/dL Normal 8.6-10.4 [facility] Comment on above: Performed By: #### C BC, BMPX, MG ####[facility] [address] [place], [place] [id number] Lab Director: Bowen Lemon MD Chloride [Moles/Vol] 103 mmol/L Normal 98-107 [facility] Comment on above: Performed By: #### C BC, BMPX, MG ####[facility] [address] [place] [address] Lab Director: Bowen Lemon MD CO2 [Moles/Vol] 22 mmol/L Normal 20-31 [facility] Comment on above: Performed By: #### C BC, BMPX, MG ####[facility] [address] [place] [address] Lab Director: Bowen Lemon MD Creatinine [Mass/Vol] 0.80 mg/dL Normal 0.70-1.20 [facility] Comment on above: Performed By: #### C BC, BMPX, MG ####[facility] [address]olhkyz78[address] [place] [address] Lab Director: Bowen Lemon MD GFR, Amer >60 Normal >60 [facility] Comment on above: Performed By: #### C BC, BMPX, MG ####[facility] [address] [place] [address] Lab Director: Bowen Lemon MD GFR,non Amer >60 Normal >60 [facility] Comment on above: Performed By: #### C BC, BMPX, MG ####[facility] [address]hruw48[address] [place] [address] Lab Director: Bowen Lemon MD Glucose [Mass/Vol] 189 mg/dL High 70-99 [facility] Comment on above: Performed By: #### C BC, BMPX, MG ####[facility] [address] [place] [address] Lab Director: Bowen Lemon MD Potassium [Moles/Vol] 3.5 mmol/L Low 3.7-5.3 [facility] Comment on above: Performed By: #### C BC, BMPX, MG ####[facility] [address] [place] [address] Lab Director: Bowen Lemon MD Sodium [Moles/Vol] 136 mmol/L Normal 135-144 [facility] Comment on above: Performed By: #### C BC, BMPX, MG ####[facility] [address] [place] [address] Lab Director: Bowen Lemon MD Urea nitrogen [Mass/Vol] 11 mg/dL Normal 8-23 [facility] Comment on above: Performed By: #### C BC, BMPX, MG ####[facility] [address] [place] [address] Lab Director: Bowen Lemon MD BUN/CRE Ratio NOT REPORTED Normal - [facility] Comment on above: Performed By: #### C BC, BMPX, MG ####[facility] [address] [place] [address] Lab Director: Bowen Lemon MD Staging: NOT REPORTED Normal [facility] Comment on above: Performed By: #### C BC, BMPX, MG ####[facility] [address] [place] [address] Lab Director: Bowen Lemon MD Basic Metabolic PanelOrdered By: Andreas Shepherd on 04-27-2021 Anion gap [Moles/Vol] 13 mmol/L 9 - 17 mmol/L [employer] Phone: Calcium [Mass/Vol] 9.2 mg/dL 8.6 - 10. 4 mg/dL [employer] Phone: Chloride [Moles/Vol] 104 mmol/L 98 - 10 7 mmol/L [employer] Phone: CO2 [Moles/Vol] 20 mmol/L 20 - 31 mmol/L [employer] Phone: Creatinine [Mass/Vol] 0.71 mg/dL 0.70 - 1.20 mg/dL [employer] Phone: GFR >60 >60 mL/min [employer] Phone: GFR Non- >60 >60 mL/min [employer] Phone: GFR/1.73 sq M.predicted MDRD (S/P/Bld) [Vol rate/Area] [employer] Phone: Comment on above: Average GFR for 60-6 9 years old: 85 mL/min/1.73sq m Chronic Kidney Disease: <60 mL/min/1.73sq m Kidney failure: <15 mL/min/1.73sq m eGFR calculated using average adult body mass. Additional eGFR calculator available at: http://www.[employer]/multiple_crcl_2012.htm GFR/1.73 sq M.predicted MDRD (S/P/Bld) [Vol rate/Area] NOT REPORTED [employer] Phone: Glucose [Mass/Vol] 280 mg/dL High 70 - 99 mg/dL [employer] Phone: Interpretation and review of laboratory results Abnormal [employer] Phone: Potassium [Moles/Vol] 3.9 mmol/L 3.7 - 5.3 mmol/L [employer] Phone: Sodium [Moles/Vol] 137 mmol/L 135 - 144 mmol/L [employer] Phone: Urea nitrogen (BldV) [Mass/Vol] 11 mg/dL 8 - 23 mg/dL [employer] Phone: Urea nitrogen/Creatinine (Bld) [Mass ratio] NOT REPORTED [employer] Phone: Basic Metabolic Panel w/ Ref darlene to MGOrdered By: Jarek Osborn on 04-27-2021 Anion gap [Moles/Vol] 11 mmol/L 9 - 17 mmol/L [employer] Phone: Calcium [Mass/Vol] 8.9 mg/dL 8.6 - 10. 4 mg/dL [employer] Phone: Chloride [Moles/Vol] 103 mmol/L 98 - 10 7 mmol/L [employer] Phone: CO2 [Moles/Vol] 22 mmol/L 20 - 31 mmol/L [employer] Phone: Creatinine [Mass/Vol] 0.8 mg/dL 0.70 - 1.20 mg/dL [employer] Phone: GFR >60 >60 mL/min [employer] Phone: GFR Non- >60 >60 mL/min [employer] Phone: GFR/1.73 sq M.predicted MDRD (S/P/Bld) [Vol rate/Area] [employer] Phone: Comment on above: Average GFR for 60-6 9 years old: 85 mL/min/1.73sq m Chronic Kidney Disease: <60 mL/min/1.73sq m Kidney failure: <15 mL/min/1.73sq m eGFR calculated using average adult body mass. Additional eGFR calculator available at: http://www.[employer].Nexio/multiple_crcl_2012.htm GFR/1.73 sq M.predicted MDRD (S/P/Bld) [Vol rate/Area] NOT REPORTED [employer] Phone: Glucose [Mass/Vol] 189 mg/dL High 70 - 99 mg/dL [employer] Phone: Interpretation and review of laboratory results Abnormal [employer] Phone: Potassium [Moles/Vol] 3.5 mmol/L Low 3.7 - 5.3 mmol/L [employer] Phone: Sodium [Moles/Vol] 136 mmol/L 135 - 144 mmol/L [employer] Phone: Urea nitrogen (BldV) [Mass/Vol] 11 mg/dL 8 - 23 mg/dL [facility] Phone: Urea nitrogen/Creatinine (Bld) [Mass ratio] NOT REPORTED [employer] Phone: [employer] Phone: Basic Metabolic Profon 04-27 (cont.) Normal [facility] Comment on above: Result Comment: Aver age GFR for 60-69 years old: 85 mL/min/1.73sq m Chronic Kidney Disease: <60 mL/min/1.73sq m Kidney failure: <15 mL/min/1.73sq m eGFR calculated using average adult body mass. Additional eGFR calculator available at: http://www.[employer]/multiple_crcl_2012.htm Performed By: #### B ALBINO, MG ####[facility] [address] [place] [address] lab Director: Shreyas Crain DO Anion gap [Moles/Vol] 13 mmol/L Normal 9-17 [facility] Comment on above: Performed By: #### B ALBINO, MG ####[facility] [address] [place] [address] lab Director: Shreyas Crain, DO Calcium [Mass/Vol] 9.2 mg/dL Normal 8.6-10.4 [facility] Comment on above: Performed By: #### B ALBINO, MG ####[facility] [address] [place] [address] lab Director: Shreyas Crain, DO Chloride [Moles/Vol] 104 mmol/L Normal 98-107 [facility] Comment on above: Performed By: #### B MP, MG ####[facility] [address] [place] [address] Lab Director: Shreyas Crain DO CO2 [Moles/Vol] 20 mmol/L Normal 20-31 [facility] Comment on above: Performed By: #### B MP, MG ####[facility] [address] [place] [address] Lab Director: Shreyas Crain DO Creatinine [Mass/Vol] 0.71 mg/dL Normal 0.70-1.20 [facility] Comment on above: Performed By: #### B MP, MG ####[facility] [address] [place] [address] Lab Director: Shreyas Crain DO GFR, Amer >60 Normal >60 [facility] Comment on above: Performed By: #### B MP, MG ####[facility] [address] [facility] [place] [address] Lab Director: Shreyas Crain DO GFR,non Amer >60 Normal >60 [facility] Comment on above: Performed By: #### B MP, MG ####[facility] [address] [facility] [place] [place] [address] Lab Director: Shreyas Crain DO Glucose [Mass/Vol] 280 mg/dL High 70-99 [facility] Comment on above: Performed By: #### B MP, MG ####[facility] [address] [facility] [place] [address] Lab Director: Shreyas Crain DO Potassium [Moles/Vol] 3.9 mmol/L Normal 3.7-5.3 [facility] Comment on above: Performed By: #### B MP, MG ####[facility] [address] [place], [place] [phone] Director: Shreyas Crain DO Sodium [Moles/Vol] 137 mmol/L Normal 135-144 [facility] Comment on above: Performed By: #### B MP, MG ####[facility] [address] [place], [place] [phone] Director: Shreyas Crain DO Urea nitrogen [Mass/Vol] 11 mg/dL Normal 8-23 [facility] Comment on above: Performed By: #### B MP, MG ####[facility] [address] [place], [place] [phone] Director: Shreyas Crain DO BUN/CRE Ratio NOT REPORTED Normal 9-20 [facility] Comment on above: Performed By: #### B ALBINO, MG ####[facility] [address] [place], [place] [phone] Director: Shreyas Crain DO Staging: NOT REPORTED Normal [facility] Comment on above: Performed By: #### B MP, MG ####[facility] [address] [place], [place] [phone] Director: Shreyas Crain DO CBCon 04-27-2021 Erythrocyte distribution width (RBC) [Ratio] 13.9 % Normal 11.8-14.4 [facility] Comment on above: Performed By: #### C BC, BMPX, MG ####[facility] [address] [place] [address] Lab Director: Bowen Lemon MD Hematocrit (Bld) [Volume fraction] 38.2 % Low 40.7-50.3 [facility] Comment on above: Performed By: #### C BC, BMPX, MG ####[facility] [address] [place] [address] lab Director: Bowen Lemon MD Hemoglobin (Bld) [Mass/Vol] 12.9 g/dL Low 13.0-17.0 [facility] Comment on above: Performed By: #### C BC, BMPX, MG ####[facility] [address] [place] [address] Lab Director: Bowen Lemon MD MCH (RBC) [Entitic mass] 30.6 pg Normal 25.2-33.5 [facility] Comment on above: Performed By: #### C BC, BMPX, MG ####[facility] [address] [place] [address] lab Director: Bowen Lemon MD MCHC (RBC) [Mass/Vol] 33.8 g/dL Normal 28.4-34.8 [facility] Comment on above: Performed By: #### C BC, BMPX, MG ####[facility] [address] [place] [address] [phone] Director: Bowen Leomn MD MCV (RBC) [Entitic vol] 90.5 fL Normal 82.6-102.9 M [facility] Comment on above: Performed By: #### C BC, BMPX, MG ####[facility] [address] [place] [address] lab Director: Bowen Lemon MD NRBC Automated 0.0 per 100 WBC Normal 0.0 [facility] Comment on above: Performed By: #### C BC, BMPX, MG ####[facility] [address] [place] [address] Lab Director: Bowen Lemon MD Platelet mean volume (Bld) [Entitic vol] 10.3 fL Normal 8.1-13.5 [facility] Comment on above: Performed By: #### C BC, BMPX, MG ####[facility] [address] [place] [address] lab Director: Bowen Lemon MD Platelets (Bld) [#/Vol] 223 10*3/uL Normal 138-453 [facility] Comment on above: Performed By: #### C BC, BMPX, MG ####[facility] [address] [place], [place] [phone] lab Director: Bowen Lemon MD RBC (Bld) [#/Vol] 4.22 10*6/uL Normal 4.21-5.77 [facility] Comment on above: Performed By: #### C BC, BMPX, MG ####[facility] [address] [place], [place] [phone] lab Director: Bowen Lemon MD WBC (Bld) [#/Vol] 7.9 10*3/uL Normal 3.5-11.3 [facility] Comment on above: Performed By: #### C BC, BMPX, MG ####[facility] [address] [place], [place] [phone] lab Director: Bowen Lemon MD CBCOrdered By: Gee benoit on 04-27-2021 Hematocrit (Bld) [Volume fraction] 38.2 % Low 40.7 - 50.3 % [employer] Phone: Hemoglobin.gastrointest inal spec 1 Ql (Stl) 12.9 g/dL Low 13.0 - 17.0 g/dL [employer] Phone: Interpretation and review of laboratory results Abnormal [employer] Phone: MCH (RBC) [Entitic mass] 30.6 pg 25.2 - 33.5 pg [employer] Phone: MCHC (RBC) [Mass/Vol] 33.8 g/dL 28.4 - 34.8 g/dL [employer] Phone: MCV (RBC) [Entitic vol] 90.5 fL 82.6 - 102.9 fL [employer] Phone: NRBC Automated 0.0 0.0 per 100 WBC [employer] Phone: Platelet distribution width (Bld) [Ratio] 13.9 % 11.8 - 14.4 % [employer] Phone: Platelet mean volume (Bld) [Entitic vol] 10.3 fL 8.1 - 13.5 fL [employer] Phone: Platelets (Bld) [#/Vol] 223 10*3/uL [employer] Phone: RBC (Bld) [#/Vol] 4.22 10*6/uL 4.21 - 5.77 m/uL [employer] Phone: WBC (Bld) [#/Vol] 7.9 10*3/uL [employer] Phone: [employer] Phone: MAGNESIUMOrdered By: Andreas Shepherd on 04-27-2021 Magnesium [Mass/Vol] 1.8 mg/dL 1.6 - 2 .6 mg/dL [employer] Phone: Magnesiumon 04-27-2021 Magnesium [Mass/Vol] 1.8 mg/dL Normal 1.6-2.6 [facility] Comment on above: Performed By: #### B MP, MG ####[employer] [facility] [address] [place] [address] Lab Director: Shreyas Crain DO Magnesium [Mass/Vol] 1.3 mg/dL Low 1.6-2.6 [facility] Comment on above: Performed By: #### C BC, BMPX, MG ####[employer] [address] [place] [address] lab Director: Bowen Lemon MD MagnesiumOrdered By: Jarek Osborn on 04-27-2021 Interpretation and review of laboratory results Abnormal [employer] Phone: Magnesium [Mass/Vol] 1.3 mg/dL Low 1.6 - 2 .6 mg/dL [employer] Phone: [employer] Phone: No Panel InformationOrdered By: Andreas Shepherd on 04-27-2021 [employer] Phone: POC Glucose FingerstickOrder ed By: Ning Wallace on 04-27-2021 Glucose [Mass/Vol] 284 mg/dL High 75 - 110 mg/dL [employer] Phone: Interpretation and review of laboratory results Abnormal [employer] Phone: [employer] Phone: Glucose [Mass/Vol] 254 mg/dL High 75 - 110 mg/dL [employer] Phone: Interpretation and review of laboratory results Abnormal [employer] Phone: [employer] Phone: Glucose [Mass/Vol] 230 mg/dL High 75 - 110 mg/dL [employer] Phone: Interpretation and review of laboratory results Abnormal [employer] Phone: [employer] Phone: Glucose [Mass/Vol] 237 mg/dL High 75 - 110 mg/dL [employer] Phone: Interpretation and review of laboratory results Abnormal [employer] Phone: [employer] Phone: APTTon 04-26-2021 aPTT Coag (Bld) [Time] 44.1 s High 20.5-30.5 [facility] Comment on above: Result Comment: IV Heparin Therapy Range: 48.6-77.8 Performed By: #### P TT ####[address] [address] [facility] Director: Bowen Lemon MD aPTT Coag (Bld) [Time] 51.9 s High 20.5-30.5 [facility] Comment on above: Result Comment: IV Heparin Therapy Range: 48.6-77.8 Performed By: #### P TT ####[address] [address] lab Director: Bowen Lemon MD aPTT Coag (Bld) [Time] 48.3 s High 20.5-30.5 [facility] Comment on above: Result Comment: IV Heparin Therapy Range: 48.6-77.8 Performed By: #### P TT ####[place], [place] [address])[phone] Director: Bowen Lemon MD aPTT Coag (Bld) [Time] 62.7 s High 20.5-30.5 [facility] Comment on above: Result Comment: IV Heparin Therapy Range: 48.6-77.8 Performed By: #### P TT ####[address] [address] lab Director: Bowen Lemon MD APTTOrdered By: Ning martines on 04-26-2021 aPTT Coag (Bld) [Time] 44.1 s High [facility] [email or web address] Phone: Comment on above: IV Heparin Therapy Range: 48.6-77.8 Interpretation and review of laboratory results Abnormal [facility] Phone: [facility] Phone: APTTOrdered By: Gee kim on 04-26-2021 aPTT Coag (Bld) [Time] 51.9 s High [facility] [email or web address] Phone: Comment on above: IV Heparin Therapy Range: 48.6-77.8 Interpretation and review of laboratory results Abnormal [employer] Phone: [employer] Phone: aPTT Coag (Bld) [Time] 48.3 s High [facility] Phone: Comment on above: IV Heparin Therapy Range: 48.6-77.8 Interpretation and review of laboratory results Abnormal [employer] Phone: [employer] Phone: aPTT Coag (Bld) [Time] 62.7 s High [facility] Phone: Comment on above: IV Heparin Therapy Range: 48.6-77.8 Interpretation and review of laboratory results Abnormal [employer] Phone: [employer] Phone: Basic Metab w/rfx MGon 04-26 Anion gap [Moles/Vol] 12 mmol/L Normal 9-17 [facility] Comment on above: Performed By: #### T ROPI, BMPX, LIPR ####[facility] [address] [place] [address] Lab Director: Bowen Lemon MD Calcium [Mass/Vol] 9.3 mg/dL Normal 8.6-10.4 [facility] Comment on above: Performed By: #### T ROPI, BMPX, LIPR ####[facility] [address] [place] [address] lab Director: Bowen Lemon MD Chloride [Moles/Vol] 102 mmol/L Normal 98-107 [facility] Comment on above: Performed By: #### T ROPI, BMPX, LIPR ####[facility] [address] [place], [place] [phone] Lab Director: Bowen Lemon MD CO2 [Moles/Vol] 23 mmol/L Normal 20-31 [facility] Comment on above: Performed By: #### T ROPI, BMPX, LIPR ####[facility] [address] [place] [address] Lab Director: Bowen Lemon MD Creatinine [Mass/Vol] 0.53 mg/dL Low 0.70-1.20 [facility] Comment on above: Performed By: #### T ROPI, BMPX, LIPR ####[facility] [address] [place], [place] [phone] Director: Bowen Lemon MD GFR, Amer >60 Normal >60 [facility] Comment on above: Performed By: #### T ROPI, BMPX, LIPR ####[facility] [address] [place] [address] Lab Director: Bowen Lemon MD GFR,non Amer >60 Normal >60 [facility] Comment on above: Performed By: #### T ROPI, BMPX, LIPR ####[facility] [address] [place], [place] [phone] Director: Bowen Lemon MD Glucose [Mass/Vol] 249 mg/dL High 70-99 [facility] Comment on above: Performed By: #### T ROPI, BMPX, LIPR ####[facility] [address] [place], [place] [phone] Director: Bowen Lemon MD Potassium [Moles/Vol] 3.6 mmol/L Low 3.7-5.3 [facility] Comment on above: Performed By: #### T ROPI, BMPX, LIPR ####[facility] [address] [place], [place] [phone] Director: Bowen Lemon MD Sodium [Moles/Vol] 137 mmol/L Normal 135-144 [facility] Comment on above: Performed By: #### T ROPI, BMPX, LIPR ####[facility] [address] [place] [address] Lab Director: Bowen Lemon MD Urea nitrogen [Mass/Vol] 9 mg/dL Normal - [facility] Comment on above: Performed By: #### T ROPI, BMPX, LIPR ####[facility] [address] [place] [address] Lab Director: Bowen Lemon MD (cont.) Normal [facility] Comment on above: Result Comment: Aver age GFR for 60-69 years old: 85 mL/min/1.73sq m Chronic Kidney Disease: <60 mL/min/1.73sq m Kidney failure: <15 mL/min/1.73sq m eGFR calculated using average adult body mass. Additional eGFR calculator available at: http://www.[employer]/multiple_crcl_2012.htm Performed By: #### T ROPI, BMPX, LIPR ####[facility] [address] [place] [address] Lab Director: Bowen Lemon MD BUN/CRE Ratio NOT REPORTED Normal 07-07 [facility] Comment on above: Performed By: #### T ROPI, BMPX, LIPR ####[facility] [address] [place] [address] Lab Director: Bowen Lemon MD Staging: NOT REPORTED Normal [facility] Comment on above: Performed By: #### T ROPI, BMPX, LIPR ####[facility] [address] [place], [place] [id number] Lab Director: Bowen Lemon MD Basic Metabolic Panel w/ Ref darlene to MGOrdered By: Jarek Osborn on 04-26-2021 Anion gap [Moles/Vol] 12 mmol/L 9 - 17 mmol/L [facility] [employer] Phone: Calcium [Mass/Vol] 9.3 mg/dL 8.6 - 10. 4 mg/dL [employer] Phone: Chloride [Moles/Vol] 102 mmol/L 98 - 10 7 mmol/L [employer] Phone: CO2 [Moles/Vol] 23 mmol/L 20 - 31 mmol/L [employer] Phone: Creatinine [Mass/Vol] 0.53 mg/dL Low 0.70 - 1.20 mg/dL [employer] Phone: GFR >60 >60 mL/min [employer] Phone: GFR Non- >60 >60 mL/min [employer] Phone: GFR/1.73 sq M.predicted MDRD (S/P/Bld) [Vol rate/Area] [employer] Phone: Comment on above: Average GFR for 60-6 9 years old: 85 mL/min/1.73sq m Chronic Kidney Disease: <60 mL/min/1.73sq m Kidney failure: <15 mL/min/1.73sq m eGFR calculated using average adult body mass. Additional eGFR calculator available at: http://www.[employer]/multiple_crcl_2012.htm GFR/1.73 sq M.predicted MDRD (S/P/Bld) [Vol rate/Area] NOT REPORTED [employer] Phone: Glucose [Mass/Vol] 249 mg/dL High 70 - 99 mg/dL [employer] Phone: Potassium [Moles/Vol] 3.6 mmol/L Low 3.7 - 5.3 mmol/L [employer] Phone: Sodium [Moles/Vol] 137 mmol/L 135 - 144 mmol/L [employer] Phone: Urea nitrogen (BldV) [Mass/Vol] 9 mg/dL 8 - 23 mg/dL [employer] Phone: Urea nitrogen/Creatinine (Bld) [Mass ratio] NOT REPORTED [employer] Phone: Drug Scr, Abuse, Uron 2020 Amphetamine(s),Ur Negative Normal NEG [facility] Comment on above: Result Comment: (Positive cutoff 1000 ng/mL) Performed By: #### U AX, UMICAO, KIM ####[facility] [address] [place] [address] Lab Director: Bowen Lemon MD Barbiturate(s),Ur Negative Normal NEG [facility] Comment on above: Result Comment: (Positive cutoff 200 ng/mL) Performed By: #### U AX, UMICAO, KIM ####[facility] [address] [place] [address] Lab Director: Bowen Lemon MD Benzodiazepine(s) Negative Normal NEG [facility] Comment on above: Result Comment: (Positive cutoff 200 ng/mL) Performed By: #### U AX, UMICAO, KIM ####[facility] [address] [place] [address] Lab Director: Bowen Lemon MD Cannabinoid(s),Ur Negative Normal NEG [facility] Comment on above: Result Comment: (Positive cutoff 50 ng/mL) Performed By: #### U AX, UMICAO, KIM ####[facility] [address] [place] [address] Lab Director: Bowen Lemon MD Cocaine Metabolite Negative Normal NEG [facility] Comment on above: Result Comment: (Positive cutoff 300 ng/mL) Performed By: #### U AX, UMICAO, KIM ####[facility] [address] [place] [address] Lab Director: Bowen Lemon MD Interpretive Info Assay provides medic al screening only. The absence of expected drug(s) and/or Normal [facility] Comment on above: Result Comment: meta bolite(s) may indicate diluted or adulterated urine, limitations of testing or timing of collection. Testing for legal purposes should be confirmed by another method. To request confirmation of test result, please call the lab within 7 days of sample submission. Performed By: #### U AX, UMICAO, KIM ####[facility] [address] [place] [address] Lab Director: Bowen Lemon MD Methadone Ql (U) Negative Normal NEG [facility] Comment on above: Result Comment: (Positive cutoff 300 ng/mL) Performed By: #### U AX, UMICAO, KIM ####[facility] [address] [place], [place] [phone] Director: Bowen Lemon MD Opiate(s), Ur Negative Normal NEG [facility] Comment on above: Result Comment: (Positive cutoff 300 ng/mL) Performed By: #### U AX, UMICAO, KIM ####[facility] [address] [place] [address] Lab Director: Bowen Lemon MD Oxycodone, Urine Negative Normal NEG [facility] Comment on above: Result Comment: (Positive cutoff 100 ng/mL) Performed By: #### U AX, UMICAO, KIM ####[facility] [address] [place] [address] Lab Director: Bowen Lemon MD Phencyclidine, Ur Negative Normal NEG [facility] Comment on above: Result Comment: (Positive cutoff 25 ng/mL) Performed By: #### U AX, UMICAO, KIM ####[facility] [address] [place], [place] [phone] Director: Bowen Lemon MD Buprenorphrine, Ur NOT REPORTED Normal NEG [facility] Comment on above: Performed By: #### U AX, UMICAO, KIM ####[facility] [address] [place] [address] Lab Director: Bowen Lemon MD MDMA, Urine NOT REPORTED Normal NEG [facility] Comment on above: Performed By: #### U AX, UMICAO, KIM ####[facility] [address] [place] [address] Lab Director: Bowen Lemon MD Methamphetamine, Ur NOT REPORTED Normal NEG [facility] Comment on above: Performed By: #### U AX, UMICAO, KIM ####[facility] [address] [place] [address] Lab Director: Bowen Lemon MD Propoxyphene,Urine NOT REPORTED Normal NEG [facility] Comment on above: Performed By: #### U AX, UMICAO, KIM ####[facility] [address] [place] [address] Lab Director: Bowen Lemon MD Tricyclic antidepressants Screen Ql (U) NOT REPORTED Normal NEG [facility] Comment on above: Performed By: #### U AX, UMICAO, KIM ####[facility] [address] [place] [address] Lab Director: Bowen Lemon MD EKG 12 LeadOrdered By: Milton Parnell on 04-26-2021 Atrial Rate 83 BPM [employer] Phone: P [place] 48 degrees [employer] Phone: P-R Interval 158 ms [employer] Phone: Q-T Interval 394 ms [employer] Phone: QRS Duration 98 ms [employer] Phone: QTc Calculation (Bazett) 462 ms [employer] Phone: R [place] -20 degrees [employer] Phone: T [place] 89 degrees [employer] Phone: Ventricular Rate 83 BPM [employer] Phone: Normal sinus rhythm Normal ECG When compared with ECG of 24-APR-2021 21:59, No significant change was found [employer] Phone: Adam, Mhpn Incoming E kg Results From [employer] - 04/26/2021 1:58 PM EDT Normal sinus rhythm Normal ECG When compared with ECG of 24-APR-2021 21:59, No significant change was found [employer] Phone: [employer] Phone: LIPID PANELOrdered By: Jay Osborn on 04-26-2021 Cholesterol [Mass/Vol] 112 mg/dL <200 [employer] Phone: Comment on above: Cholesterol Guidelines: <200 Desirable 200-240 Borderline >240 Undesirable Cholesterol in HDL [Mass/Vol] 25 mg/dL Low >40 [employer] Phone: Comment on above: HDL Guidelines: <40 Undesirable 40-59 Borderline >59 Desirable Cholesterol in LDL [Mass/Vol] 51 mg/dL 0 - 130 mg/dL [employer] Phone: Comment on above: LDL Guidelines: <100 Desirable 100-129 Near to/above Desirable 130-159 Borderline >159 Undesirable Direct (measured) LDL and calculated LDL are not interchangeable tests. Cholesterol in VLDL [Mass/Vol] NOT REPORTED High 1 - 30 mg/dL [employer] Phone: Cholesterol.total/Dania sterol in HDL [Mass ratio] 4.5 {ratio} <5 [employer] Phone: Triglyceride [Mass/Vol] 181 mg/dL High <150 [employer] Phone: Comment on above: Triglyceride Guidelines: <150 Desirable 150-199 Borderline 200-499 High >499 Very high Based on AHA Guidelines for fasting triglyceride, July 2012. Lipid Profileon 04-26-2021 Cholesterol [Mass/Vol] 112 mg/dL Normal <200 Me [facility] Comment on above: Result Comment: Cholesterol Guidelines: <200 Desirable 200-240 Borderline >240 Undesirable Performed By: #### T ROPI, BMPX, LIPR ####[facility] [address] [place] [address] Lab Director: Bowen Lemon MD Cholesterol in HDL [Mass/Vol] 25 mg/dL Low >40 [facility] Comment on above: Result Comment: HDL Guidelines: <40 Undesirable 40-59 Borderline >59 Desirable Performed By: #### T ROSA, BMPX, LIPR ####[facility] [address] [place] [address] Lab Director: Bowen Lemon MD Cholesterol in LDL [Mass/Vol] 51 mg/dL Normal 0-130 [facility] Comment on above: Result Comment: LDL Guidelines: <100 Desirable 100-129 Near to/above Desirable 130-159 Borderline >159 Undesirable Direct (measured) LDL and calculated LDL are not interchangeable tests. Performed By: #### T ROSA, BMPX, LIPR ####[facility] [address] [place] [address] Lab Director: Bowen Lemon MD Cholesterol.total/Dania sterol in HDL [Mass ratio] 4.5 {ratio} Normal <5 [facility] Comment on above: Performed By: #### T ROPI, BMPX, LIPR ####[facility] [address] [place] [address] Lab Director: Bowen Lemon MD Triglyceride [Mass/Vol] 181 mg/dL High <150 M [facility] Comment on above: Result Comment: Triglyceride Guidelines: <150 Desirable 150-199 Borderline 200-499 High >499 Very high Based on AHA Guidelines for fasting triglyceride, July 2012. 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 Mild chronic microvascular disease within the periventricular white matter. Moderate cerebral atrophy. Susceptibility within the right parietal lobe periventricular white matter which may represent a cavernoma versus old hemorrhage. [employer] Phone: EXAMINATION: MRI OF THE BRAIN WITHOUT [...] The soft tissues demonstrate no acute abnormality. [employer] Phone: Adam, [facility] Incoming R adiant Results From [employer]plified/Naut[employer] Neurosciencess - 04/26/2021 3:56 PM EDT EXAMINATION: MRI [...] may represent a cavernoma versus old hemorrhage. [employer] Work Phone: [employer] Phone: MRI CERVICAL SPINE WO CONTRA STon [...] Dhruv Noriega MD 04/26/21 Final result Normal [facility] MRI CERVICAL SPINE WO CONTRA STOrdered By: Esteban Serrano on 04-26-2021 Congenital spinal ca nal stenosis superimposed moderate diffuse degenerative disc disease Moderate central canal stenosis at C5-C6 and C6-C7 and to slightly lesser extent at C3-C4. Multilevel bilateral neural foraminal stenosis as noted above most severe C3-C4 and C6-C7. [facility] Work Phone: EXAMINATION: MRI OF THE CERVICAL [...] spinal canal stenosis or neural foraminal narrowing. [employer] Phone: Adam, [facility] Incoming R adiant Results From [employer]/Oh[employer] - 04/26/2021 3:56 PM EDT EXAMINATION: MRI [...] noted above most severe C3-C4 and C6-C7. [employer] Phone: [employer] Phone: MRI LUMBAR SPINE WO CONTRAST on [...] Dhruv Noriega MD 04/26/21 Final result Normal [facility] MRI LUMBAR SPINE WO CONTRAST Ordered By: [...] at L4-L5. Borderline congenital spinal canal stenosis. [employer] Phone: EXAMINATION: MRI OF THE LUMBAR SPINE [...] encroachment by disc bulge and facet disease. [employer] Phone: Adam, [facility] Incoming R adiant Results From [employer] - 04/26/2021 3:56 PM EDT EXAMINATION: MRI [...] at L4-L5. Borderline congenital spinal canal stenosis. [employer] Phone: [employer] Phone: No Panel InformationOrdered By: Jarek Osborn on 04-26-2021 Interpretation and review of laboratory results Abnormal [employer] Phone: [employer] Phone: Troponinon 04-26-2021 Troponin, High Sens 267 ng/L Critically high 0-22 [facility] Comment on above: Result Comment: High Sensitivity Troponin values cannot be compared with other Troponin methodologies. Patients with high levels of Biotin oral intake (i.e >5mg/day) may have falsely decreased Troponin levels. Samples collected within 8 hours of biotin intake may require additional information for diagnosis. Previous Alert Value Reported Performed By: #### T ROPI ####[facility] [address] [place] [address] Lab Director: Bowen Lemon MD Troponin Interp. NOT REPORTED Normal [facility] Comment on above: Performed By: #### T ROPI ####[facility] [address] [place] [address] [phone] Director: Bowen Lemon MD Troponin T NOT REPORTED Normal <0.03 [facility] Comment on above: Performed By: #### T ROPI ####[facility] [address] [place] [address] [phone] Director: Bowen Lemon MD Troponin, High Sens 199 ng/L Critically high 0-22 [facility] Comment on above: Result Comment: High Sensitivity Troponin values cannot be compared with other Troponin methodologies. Patients with high levels of Biotin oral intake (i.e >5mg/day) may have falsely decreased Troponin levels. Samples collected within 8 hours of biotin intake may require additional information for diagnosis. Previous Alert Value Reported Performed By: #### T ROPI, BMPX, LIPR ####[facility] [address] [place], [place] [phone] Director: Bowen Lemon MD Troponin Interp. NOT REPORTED Normal [facility] Comment on above: Performed By: #### T ROPI, BMPX, LIPR ####[facility] [address] [place], [place] [phone] Director: Bowen Lemon MD Troponin T NOT REPORTED Normal <0.03 [facility] Comment on above: Performed By: #### T ROPI, BMPX, LIPR ####[facility] [address] [place], [place] [id number] lab Director: Bowen Lemon MD TroponinOrdered By: Jarek mar on 04-26-2021 Interpretation and review of laboratory results Abnormal [employer] Phone: Troponin Interp NOT REPORTED [employer] Phone: Troponin T NOT REPORTED <0.03 ng/mL [employer] Phone: Troponin, High Sensitivity 267 ng/L Critically high 0 - 22 ng/L [employer] Phone: Comment on above: High Sensitivity Troponin values cannot be compared with other Troponin methodologies. Patients with high levels of Biotin oral intake (i.e >5mg/day) may have falsely decreased Troponin levels. Samples collected within 8 hours of biotin intake may require additional information for diagnosis. Previous Alert Value Reported [employer] Phone: TroponinOrdered By: Babak benton on 04-26-2021 Interpretation and review of laboratory results Abnormal [employer] Phone: Troponin Interp NOT REPORTED [employer] Phone: Troponin T NOT REPORTED <0.03 ng/mL [employer] Phone: Troponin, High Sensitivity 199 ng/L Critically high 0 - 22 ng/L [employer] Phone: Comment on above: High Sensitivity Troponin values cannot be compared with other Troponin methodologies. Patients with high levels of Biotin oral intake (i.e >5mg/day) may have falsely decreased Troponin levels. Samples collected within 8 hours of biotin intake may require additional information for diagnosis. Previous Alert Value Reported [employer] Phone: UA w/Reflex Cultureon 2020 Bilirubin, SemiQt,Ur Negative Normal NEG [facility] Comment on above: Performed By: #### U RAMÓN, KIM SANCHEZ ####[employer] [place] [address] Lab Director: Bowen Lemon MD Blood, Urine TRACE Abnormal NEG [facility] Comment on above: Performed By: #### U AX, UMICAO, KIM ####[facility] [address] [place], [place] [phone] Director: Bowen Lemon MD Clarity (U) CLEAR Normal CLEAR [facility] Comment on above: Performed By: #### U AX, UMICAO, KIM ####[facility] [address] [place], [place] [phone])[phone] Director: Bowen Lemon MD Color (U) YELLOW Normal YEL [facility] Comment on above: Performed By: #### U AX, UMICAO, KIM ####[facility] [address] [place], [place] [phone] Director: Bowen Lemon MD Glucose Ql (U) 1+ Abnormal NEG [facility] Comment on above: Performed By: #### U AX, UMICAO, KIM ####[facility] [address] [place], [place] [id number])[phone] Director: Bowen Lemon MD Ketones Ql (U) TRACE Abnormal NEG [facility] Comment on above: Performed By: #### U AX, UMICAO, KIM ####[facility] [address] [place], [place] [id number])[phone] Director: Bowen Lemon MD Leukocyte esterase Test strip Ql (U) Negative Normal NEG [facility] Comment on above: Performed By: #### U AX, UMICAO, KIM ####[facility] [address] [place], [place] [phone] Director: Bowen Lemon MD Nitrite,Ur Negative Normal NEG [facility] Comment on above: Performed By: #### U AX, UMICAO, KIM ####[facility] [address] [place], [place] [phone] Director: Bowen Lemon MD PH,Ur 7.0 Normal 5.0-8.0 [facility] Comment on above: Performed By: #### U AX, UMICAO, KIM ####[facility] [address] [place], [place] [id number])[phone] Director: Bowen Lemon MD Protein Ql (U) 2+ Abnormal NEG [facility] Comment on above: Performed By: #### U AX, UMICAO, KIM ####[facility] [address] [place], [place] [phone])[phone] Director: Bowen Lemon MD Spec. [place],Ur 1.012 Normal 1.005-1.03 0 [facility] Comment on above: Performed By: #### U AX, UMICAO, KIM ####[facility] [address] [place], [place] [phone] Director: Bowen Lemon MD Urobilinogen,Ur Normal Normal NORM [facility] Comment on above: Performed By: #### U AX, UMICAO, KIM ####[facility] [address] [place], [place] [id number])[phone] Director: Bowen Lemon MD Comment NOT REPORTED Normal [facility] Comment on above: Performed By: #### U AX, UMICAO, KIM ####[facility] [address] [place], [place] [phone] Director: Bowen Lemon MD Urinalysis,Microon 1 ----- Normal [facility] Comment on above: Performed By: #### U AX, UMICAO, KIM ####[facility] [address] [place], [place] [phone] Director: Bowen Lemon MD Epithelial cells LM Ql (Urine sed) None Normal 0-5 [facility] Comment on above: Performed By: #### U AX, UMICAO, KIM ####[facility] [address] [place] [address] Lab Director: Bowen Lemon MD Urine RBC's 5 TO 10 Normal 0-4 [facility] Comment on above: Result Comment: Refe rence range defined for non-centrifuged specimen. Performed By: #### U AX, UMICAO, KIM ####[facility] [address] [place] [address] Lab Director: Bowen Lemon MD Urine WBC's None Normal 0-5 [facility] Comment on above: Performed By: #### U AX, UMICAO, KIM ####[facility] [address] [place] [address] Lab Director: Bowen Lemon MD Amorphous sediment LM Ql (Urine sed) NOT REPORTED Normal NONE [facility] Comment on above: Performed By: #### U AX, UMICAO, KIM ####[facility] [address] [place] [address] Lab Director: Bowen Lemon MD Bacteria NOT REPORTED Normal NONE [facility] Comment on above: Performed By: #### U AX, UMICAO, KIM ####[facility] [address] [place] [address] Lab Director: Bowen Lemon MD Casts NOT REPORTED Normal 0-8 [facility] Comment on above: Performed By: #### U AX, UMICAO, KIM ####[facility] [address] [place], [place] [id number])[phone] Director: Bowen Lemon MD Crystals LM Nom (Urine sed) NOT REPORTED Normal NONE [facility] Comment on above: Performed By: #### U AX, UMICAO, KIM ####[facility] [address] [place], [place] [phone] Director: Bowen Lemon MD Epithelial, Renal NOT REPORTED Normal 0 [facility] Comment on above: Performed By: #### U AX, UMYOANA, KIM ####[facility] [address] [place] [address] Lab Director: Bowen Lemon MD Mucus Strands NOT REPORTED Normal NONE [facility] Comment on above: Performed By: #### U AX, UMYOANA, KIM ####[facility] [address] [place] [address] Lab Director: Bowen Lemon MD Other Observations NOT REPORTED Normal NREQ [facility] Comment on above: Performed By: #### U AX, UMICAO, KIM ####[facility] [address] [place] [address] Lab Director: Bowen Lemon MD Trichomonas NOT REPORTED Normal NONE [facility] Comment on above: Performed By: #### U AX, UMYOANA, KIM ####[facility] [address] [place] [address] Lab Director: Bowen Lemon MD Yeast NOT REPORTED Normal NONE [facility] Comment on above: Performed By: #### U AX, UMICAO, KIM ####[facility] [address] [place] [address] Lab Director: Bowen Lemon MD APTTon 04-25-2021 aPTT Coag (Bld) [Time] 24.8 s Normal 20.5-30.5 [facility] Comment on above: Result Comment: IV Heparin Therapy Range: 48.6-77.8 Performed By: #### P TT ####[facility] [address] [place] [address] Lab Director: Bowen Lemon MD aPTT Coag (Bld) [Time] 78.5 s High 20.5-30.5 [facility] Comment on above: Result Comment: IV Heparin Therapy Range: 48.6-77.8 Performed By: #### C BC, PTT ####[facility] [address] [place] [address] lab Director: Bowen Lemon MD APTTOrdered By: Vimal Geronimo on 04-25-2021 aPTT Coag (Bld) [Time] 24.8 s [facility] [email or web address] Phone: Comment on above: IV Heparin Therapy Range: 48.6-77.8 [facility] Phone: APTTOrdered By: Gee kim on 04-25-2021 aPTT Coag (Bld) [Time] 78.5 s High [facility] Phone: Comment on above: IV Heparin Therapy Range: 48.6-77.8 Interpretation and review of laboratory results Abnormal [facility] Phone: [facility] Phone: B12/Folate Panelon 1 Folic Acid 15.2 ng/mL Normal >4.8 [facility] Comment on above: Performed By: #### B 12FOL ####[facility] [address] [place] [id number] lab Director: Bowen Lemon MD B12/Folate PanelOrdered By: Sabrina Aguiar on 04-25-2021 Cobalamin (Vitamin B12) [Mass/Vol] 594 pg/mL Normal 232-1245 [facility] [email or web address] Phone: Comment on above: Performed By: #### B 12FOL ####[facility] [address] [place] [address] Lab Director: Bowen Lemon MD C-Reactive Proteinon 021 CRP [Mass/Vol] 8.1 mg/L High 0.0-5.0 [facility] Comment on above: Performed By: #### S ED, CRP, STROKE #### [facility] [address] [place] [address] Turbine Technician: Bowen Lemon MD C-Reactive ProteinOrdered By : Kranthi Ruvalcaba on 04-25-2021 CRP [Mass/Vol] 8.1 mg/L High 0.0 - 5.0 mg/L [facility] [email or web address] Phone: Interpretation and review of laboratory results Abnormal [facility] Phone: [facility] Phone: CBCon 04-25-2021 Erythrocyte distribution width (RBC) [Ratio] 14.0 % Normal 11.8-14.4 [facility] Comment on above: Performed By: #### C BC, PTT ####[facility] [address] [place] [address] Lab Director: Bowen Lemon MD Hematocrit (Bld) [Volume fraction] 41.8 % Normal 40.7-50.3 [facility] Comment on above: Performed By: #### C BC, PTT ####[facility] [address] [place] [address] Lab Director: Bowen Lemon MD Hemoglobin (Bld) [Mass/Vol] 13.8 g/dL Normal 13.0-17.0 [facility] Comment on above: Performed By: #### C BC, PTT ####[facility] [address] [place] [address] Lab Director: Bowen Lemon MD MCH (RBC) [Entitic mass] 30.7 pg Normal 25.2-33.5 [facility] Comment on above: Performed By: #### C BC, PTT ####[facility] [address] [place] [address] Lab Director: Bowen Lemon MD MCHC (RBC) [Mass/Vol] 33.0 g/dL Normal 28.4-34.8 [facility] Comment on above: Performed By: #### C BC, PTT ####[facility] [address] [place], [place] [phone] Director: Bowen Lemon MD MCV (RBC) [Entitic vol] 93.1 fL Normal 82.6-102.9 M [facility] Comment on above: Performed By: #### C BC, PTT ####[facility] [address] [place], [place] [phone] Director: Bowen Lemon MD NRBC Automated 0.0 per 100 WBC Normal 0.0 [facility] Comment on above: Performed By: #### C BC, PTT ####[facility] [address] [place], [place] [phone] Director: Bowen Lemon MD Platelet mean volume (Bld) [Entitic vol] 10.3 fL Normal 8.1-13.5 [facility] Comment on above: Performed By: #### C BC, PTT ####[facility] [address] [place], [place] [phone] Director: Bowen Lemon MD Platelets (Bld) [#/Vol] 195 10*3/uL Normal 138-453 [facility] Comment on above: Performed By: #### C BC, PTT ####[facility] [address] [place], [place] [phone] Director: Bowen Lemon MD RBC (Bld) [#/Vol] 4.49 10*6/uL Normal 4.21-5.77 [facility] Comment on above: Performed By: #### C BC, PTT ####[facility] [address] [place], [place] [phone] Director: Bowen Lemon MD WBC (Bld) [#/Vol] 6.7 10*3/uL Normal 3.5-11.3 [facility] Comment on above: Performed By: #### C BC, PTT ####[employer] [address] [place] [address] lab Director: Bowen Lemon MD CBCOrdered By: Gee benoit on 04-25-2021 Hematocrit (Bld) [Volume fraction] 41.8 % 40.7 - 50.3 % [employer] Phone: Hemoglobin.gastrointest inal spec 1 Ql (Stl) 13.8 g/dL 13.0 - 17.0 g/dL [employer] Phone: MCH (RBC) [Entitic mass] 30.7 pg 25.2 - 33.5 pg [employer] Phone: MCHC (RBC) [Mass/Vol] 33.0 g/dL 28.4 - 34.8 g/dL [employer] Phone: MCV (RBC) [Entitic vol] 93.1 fL 82.6 - 102.9 fL [employer] Phone: NRBC Automated 0.0 0.0 per 100 WBC [employer] Phone: Platelet distribution width (Bld) [Ratio] 14.0 % 11.8 - 14.4 % [employer] Phone: Platelet mean volume (Bld) [Entitic vol] 10.3 fL 8.1 - 13.5 fL [employer] Phone: Platelets (Bld) [#/Vol] 195 10*3/uL [employer] Phone: RBC (Bld) [#/Vol] 4.49 10*6/uL 4.21 - 5.77 m/uL [employer] Phone: WBC (Bld) [#/Vol] 6.7 10*3/uL [employer] Phone: [employer] Phone: COVID-19, RapidOrdered By: Alonso Oreilly on 04-25-2021 SARS-CoV-2 (COVID-19) RNA PLACIDO+probe Ql (Unsp spec) Not detected Not Detected [employer] Phone: Comment on above: Rapid NAAT: The [...] management decisions. Fact sheet for Healthcare Providers: https://www.fda.gov/media/998673/download Fact sheet for Patients: https://www.fda.gov/media/164507/download Methodology: Isothermal Nucleic Acid Amplification Specimen Description .NASOPHARYNGEAL SWAB [employer] Phone: [employer] Phone: CT ABDOMEN PELVIS WO CONTRAS Ton [...] Guero Juárez MD 04/25/21 Final result Normal [facility] CT ABDOMEN PELVIS WO CONTRAS T Additional [...] secondary to encroachment by disc osteophyte complex. [employer] Phone: EXAMINATION: CT OF T ABDOMEN [...] soft tissues are otherwise unremarkable in appearance. [employer] Work Phone: Adam, [facility] Incoming R adiant Results From [employer] Simplified/[employer] - 04/25/2021 5:21 AM EDT EXAMINATION: CT [...] secondary to encroachment by disc osteophyte complex. [employer] Work Phone: [employer] Phone: CT CERVICAL SPINE WO CONTRAS [...] of significant central canal stenosis/compromise identified. Multilevel gige-nm-ygbnalmj facet degenerative hypertrophy is seen. C3/C4 mild [...] Guero Juárez MD 04/24/21 Final result Normal [facility] CT HEAD WO CONTRASTon 2020 CT HEAD [...] Bandar Ardon MD 04/24/21 Final result Normal [facility] CTA HEAD NECK W CONTRASTon 0 04-25-2021 [...] Guero Juárez MD 04/24/21 Final result Normal [facility] DRUG SCREEN MULTI URINEOrder ed By: Jarek Osborn on 04-25-2021 Amphetamine Screen, Ur Negative NEGATIVE [employer] Phone: Comment on above: (Positive cutoff 1000 ng/mL) Barbiturate Screen, Ur Negative NEGATIVE [facility] [employer] Phone: Comment on above: (Positive cutoff 200 ng/mL) Benzodiazepine Screen, Urine Negative NEGATIVE [facility] Work Phone: Comment on above: (Positive cutoff 200 ng/mL) Buprenorphine Urine NOT REPORTED NEGATIVE [facility] [employer] Work Phone: Cannabinoid Scrn, Ur Negative NEGATIVE [facility] [employer] Phone: Comment on above: (Positive cutoff 50 ng/mL) Cocaine Metabolite, Urine Negative NEGATIVE [facility] Phone: Comment on above: (Positive cutoff 300 ng/mL) MDMA, Urine NOT REPORTED NEGATIVE [facility] Work Phone: Methadone Screen, Urine Negative NEGATIVE [facility] [employer] Work Phone: Comment on above: (Positive cutoff 300 ng/mL) Methamphetamine, Urine NOT REPORTED NEGATIVE [facility] Phone: Opiates, Urine Negative NEGATIVE [facility] Phone: Comment on above: (Positive cutoff 300 ng/mL) Oxycodone Screen, Ur Negative NEGATIVE [facility] [employer] Phone: Comment on above: (Positive cutoff 100 ng/mL) Phencyclidine, Urine Negative NEGATIVE [employer] Work Phone: Comment on above: (Positive cutoff 25 ng/mL) Propoxyphene, Urine NOT REPORTED NEGATIVE [facility] [employer] Work Phone: Test Information Assay provides medic al screening only. The absence of expected drug(s) and/or metabolite(s) may indicate diluted or adulterated urine, limitations of testing or timing of collection. [employer] Phone: Comment on above: Testing for legal pu rposes should be confirmed by another method. To request confirmation of test result, please call the lab within 7 days of sample submission. Tricyclic Antidepressants, Urine NOT REPORTED NEGATIVE [employer] Phone: [employer] Phone: EEG awake and drowsyOrdered By: Sabrina [...] 650 mg 650 mg Rectal Q6H PRN Jarek Osborn MD heparin (porcine) injection 4,000 Units [...] non specific etiology. Juan Judd MD Diplomate, [place] [employer] [facility] [email or web address] Phone: [employer] Phone: EKG 12 LeadOrdered By: Rashawn Ruvalcaba on 04-25-2021 Atrial Rate 84 BPM [employer] Phone: P [place] 43 degrees [employer] Phone: P-R Interval 166 ms [employer] Phone: Q-T Interval 380 ms [employer] Phone: QRS Duration 96 ms [employer] Phone: QTc Calculation (Bazett) 449 ms [employer] Phone: R [place] -8 degrees [employer] Phone: T [place] 99 degrees [employer] Phone: Ventricular Rate 84 BPM [employer] Phone: Normal sinus rhythm Abnormal QRS-T angle, consider primary T wave abnormality Abnormal ECG When compared with ECG of 30-OCT-2019 17:11, No significant change was found [employer] Phone: Adam, [employer] Incoming E kg Results From [employer] - 04/25/2021 1:23 PM EDT Normal sinus rhythm Abnormal QRS-T angle, consider primary T wave abnormality Abnormal ECG When compared with ECG of 30-OCT-2019 17:11, No significant change was found [employer] Phone: [employer] Phone: HEMOGLOBIN [id number] By: Rolando Epstein on 04-25-2021 Glucose [Mass/Vol] 169 mg/dL [employer] Phone: Comment on above: The ADA and AACC rec ommend providing the estimated average glucose result to permit better patient understanding of their HBA1c result. HbA1c (Bld) [Mass fraction] 7.5 % High 4.0 - 6.0 % [employer] Phone: Interpretation and review of laboratory results Abnormal [employer] Phone: [employer] Phone: Hemoglobin A1Con 04-25-2021 Glucose [Mass/Vol] 169 mg/dL Normal [facility] Comment on above: Result Comment: The ADA and AACC recommend providing the estimated average glucose result to permit better patient understanding of their HBA1c result. Performed By: #### G LYHGB ####[employer] [place], [place] [id number] lab Director: Bowen Lemon MD HbA1c (Bld) [Mass fraction] 7.5 % High 4.0-6.0 [facility] Comment on above: Performed By: #### G LYHGB ####[facility]Master [address] [place], [place] [id number] lab Director: Bowen Lemon MD Microscopic UrinalysisOrdere d By: Jarek Osborn on 04-25-2021 - [employer] Phone: Amorphous, UA NOT REPORTED None [employer] Phone: Bacteria, UA NOT REPORTED None [employer] Phone: Casts UA NOT REPORTED [employer] Phone: Crystals, UA NOT REPORTED None /HPF [employer] Phone: Epithelial Cells UA None [employer] Phone: Mucus, UA NOT REPORTED None [employer] Phone: Other Observations UA NOT REPORTED NOT REQ. [facility] Phone: RBC, UA 5 TO 10 [facility] Phone: Comment on above: Reference range defi odette for non-centrifuged specimen. Renal Epithelial, UA NOT REPORTED 0 /HPF [employer] Phone: Trichomonas, UA NOT REPORTED None [employer] Phone: WBC, UA None [employer] Phone: Yeast, UA NOT REPORTED None [employer] Phone: [employer] Phone: POC Glucose FingerstickOrder ed By: Callie Murrell on 04-25-2021 Glucose [Mass/Vol] 224 mg/dL High 75 - 110 mg/dL [employer] Phone: Interpretation and review of laboratory results Abnormal [employer] Phone: [employer] Phone: [id number] 04-25-2021 SARS-CoV-2 (COVID-19) RNA PLACIDO+probe Ql (Unsp spec) Not detected Normal NOTDET [facility] Comment on above: Result Comment: Rapid NAAT: [...] management decisions. Fact sheet for Healthcare Providers: https://www.fda.gov/media/721376/download Fact sheet for Patients: https://www.fda.gov/media/826287/download Methodology: Isothermal Nucleic Acid Amplification Performed By: #### C OVRB #### [employer] [address] [place] [address] Turbine Technician: Bowen Lemon MD STROKE PANELOrdered By: Tuan Ruvalcaba on 04-25-2021 % CKMB 4.6 % High 0.0 - 3.5 % [facility] Phone: Absolute Eos # 0.07 [facility] Phone: Absolute Immature Granulocyte 0.04 [facility] Phone: Absolute Lymph # 2.89 [facility] Phone: Absolute [place] # 0.72 [facility] Phone: Anion gap [Moles/Vol] 16 mmol/L 9 - 17 mmol/L [facility] Phone: aPTT Coag (Bld) [Time] 23.4 s [employer] Phone: Comment on above: IV Heparin Therapy Range: 48.6-77.8 Basophils (Bld) [#/Vol] 0.05 10*3/uL [facility] Phone: Basophils/100 WBC (Bld) 1 % 0 - 2 % [facility] Phone: Calcium [Mass/Vol] 9.8 mg/dL 8.6 - 10. 4 mg/dL [employer] Phone: Chloride [Moles/Vol] 99 mmol/L 98 - 10 7 mmol/L [facility] Phone: CK [Catalytic activity/Vol] 108 U/L 39 - 308 U/L [facility] Phone: CK.MB [Mass/Vol] 5 ng/mL <10.5 [employer] Phone: CKMB Interpretation NORMAL ISOENZYME PATTERN [facility] Phone: CO2 [Moles/Vol] 19 mmol/L Low 20 - 31 mmol/L [facility] Phone: Creatinine [Mass/Vol] 0.82 mg/dL 0.70 - 1.20 mg/dL [employer] Phone: Differential Type NOT REPORTED [employer] Phone: Eosinophils/100 WBC (Bld) 1 % 1 - 4 % [employer] Phone: GFR >60 >60 mL/min [employer] Phone: GFR Non- >60 >60 mL/min [employer] Phone: GFR/1.73 sq M.predicted MDRD (S/P/Bld) [Vol rate/Area] [employer] Phone: Comment on above: Average GFR for 60-6 9 years old: 85 mL/min/1.73sq m Chronic Kidney Disease: <60 mL/min/1.73sq m Kidney failure: <15 mL/min/1.73sq m eGFR calculated using average adult body mass. Additional eGFR calculator available at: http://www.[employer]/multiple_crcl_2012.htm GFR/1.73 sq M.predicted MDRD (S/P/Bld) [Vol rate/Area] NOT REPORTED [employer] Phone: Glucose [Mass/Vol] 130 mg/dL High 70 - 99 mg/dL [employer] Phone: Hematocrit (Bld) [Volume fraction] 44.0 % 40.7 - 50.3 % [employer] Phone: Hemoglobin.gastrointest inal spec 1 Ql (Stl) 14.5 g/dL 13.0 - 17.0 g/dL [employer] Phone: Immature granulocytes/100 WBC (Bld) 0 % 0 [employer] Phone: INR Coag (Bld) [Relative time] 1.0 {INR} [employer] Phone: Comment on above: Therapeutic Range: Moderate Anticoagulant Intensity: INR = 2.0-3.0 High Anticoagulant Intensity: INR = 2.5-3.5 Interpretation and review of laboratory results Abnormal [employer] Phone: Lymphocytes/100 WBC (Bld) 29 % 24 - 43 % [employer] Phone: MCH (RBC) [Entitic mass] 29.9 pg 25.2 - 33.5 pg [employer] Phone: MCHC (RBC) [Mass/Vol] 33.0 g/dL 28.4 - 34.8 g/dL [employer] Phone: MCV (RBC) [Entitic vol] 90.7 fL 82.6 - 102.9 fL [employer] Phone: Monocytes/100 WBC (Bld) 7 % 3 - 12 % [employer] Phone: Myoglobin [Mass/Vol] 41 ng/mL 28 - 72 ng/mL [employer] Phone: NRBC Automated 0.0 0.0 per 100 WBC [employer] Phone: Platelet distribution width (Bld) [Ratio] 14.0 % 11.8 - 14.4 % [employer] Phone: Platelet Estimate NOT REPORTED [employer] Phone: Platelet mean volume (Bld) [Entitic vol] 11.1 fL 8.1 - 13.5 fL [employer] Phone: Platelets (Bld) [#/Vol] 249 10*3/uL [employer] Phone: Potassium [Moles/Vol] 3.7 mmol/L 3.7 - 5.3 mmol/L [employer] Phone: PT Coag (PPP) [Time] 10.7 s [employer] Phone: RBC (Bld) [#/Vol] 4.85 10*6/uL 4.21 - 5.77 m/uL [employer] Phone: RBC (Bld) [#/Vol] NOT REPORTED [employer] Phone: Segmented neutrophils/100 WBC (Bld) 62 % 36 - 65 % [employer] Phone: Segs Absolute 6.24 [employer] Phone: Sodium [Moles/Vol] 134 mmol/L Low 135 - 144 mmol/L [employer] Phone: Troponin Interp NOT REPORTED [employer] Phone: Troponin T NOT REPORTED <0.03 ng/mL [employer] Phone: Troponin, High Sensitivity 180 ng/L Critically high 0 - 22 ng/L [employer] Phone: Comment on above: High Sensitivity Troponin values cannot be compared with other Troponin methodologies. Patients with high levels of Biotin oral intake (i.e >5mg/day) may have falsely decreased Troponin levels. Samples collected within 8 hours of biotin intake may require additional information for diagnosis. Urea nitrogen (BldV) [Mass/Vol] 18 mg/dL 8 - 23 mg/dL [employer] Phone: Urea nitrogen/Creatinine (Bld) [Mass ratio] NOT REPORTED [employer] Phone: WBC (Bld) [#/Vol] 10.0 10*3/uL [employer] Phone: WBC (Bld) [#/Vol] NOT REPORTED [employer] Phone: [employer] Phone: Sedimentation Rateon 021 Sedimentation Rate 25 mm High 0-20 [facility] Comment on above: Performed By: #### S ED, CRP, STROKE #### [facility] [place] [address] Turbine Technician: Bowen Lemon MD Stroke Panelon 04-25-2021 % CKMB 4.6 % High 0.0-3.5 [facility] Comment on above: Performed By: #### S ED, CRP, STROKE #### [facility] [address] [place] [address] Turbine Technician: Bowen Lemon MD CK-MB,Quantitative 5.0 ng/mL Normal <10.5 [facility] Comment on above: Performed By: #### S ROXANNA CRP, STROKE #### [address] [address] Turbine Technician: Bowen Lemon MD CKMB-Interpretation NORMAL ISOENZYME PATTERN Normal [facility] Comment on above: Performed By: #### S ROXANNA CRP, STROKE #### [address] [address] Turbine Technician: Bowen Lemon MD (cont.) Normal [facility] Comment on above: Result Comment: Aver age GFR for 60-69 years old: 85 mL/min/1.73sq m Chronic Kidney Disease: <60 mL/min/1.73sq m Kidney failure: <15 mL/min/1.73sq m eGFR calculated using average adult body mass. Additional eGFR calculator available at: http://www.[employer]/multiple_crcl_2011.htm Performed By: #### S ED, CRP, STROKE #### [facility] [address] [place] [address] Turbine Technician: Bowen Lemon MD Anion gap [Moles/Vol] 16 mmol/L Normal 9-17 [facility] Comment on above: Performed By: #### S ED, CRP, STROKE #### [facility] [address] [place] [address] Turbine Technician: Bowen Lemon MD Calcium [Mass/Vol] 9.8 mg/dL Normal 8.6-10.4 [facility] Comment on above: Performed By: #### S ED, CRP, STROKE #### [facility] [address] [place] [address] Turbine Technician: Bowen Lemon MD Chloride [Moles/Vol] 99 mmol/L Normal 98-107 [facility] Comment on above: Performed By: #### S ED, CRP, STROKE #### [facility] [address] [place] [address] Turbine Technician: Bowen Lemon MD CK [Catalytic activity/Vol] 108 U/L Normal 39-308 [facility] Comment on above: Performed By: #### S ED, CRP, STROKE #### [facility] [address] [place] [address] Turbine Technician: Bowen Lemon MD CO2 [Moles/Vol] 19 mmol/L Low 20-31 [facility] Comment on above: Performed By: #### S ED, CRP, STROKE #### [facility] [address] [place] [address] Turbine Technician: Bowen Lemon MD Creatinine [Mass/Vol] 0.82 mg/dL Normal 0.70-1.20 [facility] Comment on above: Performed By: #### S ED, CRP, STROKE #### [facility] [address] [place] [address] Turbine Technician: Bowen Lemon MD GFR, Amer >60 Normal >60 [facility] Comment on above: Performed By: #### S ED, CRP, STROKE #### [facility] [address] [place] [address] Turbine Technician: Bowen Lemon MD GFR,non Amer >60 Normal >60 [facility] Comment on above: Performed By: #### S ED, CRP, STROKE #### [facility] [address] [place] [address] Turbine Technician: Bowen Lemon MD Glucose [Mass/Vol] 130 mg/dL High 70-99 [facility] Comment on above: Performed By: #### S ED, CRP, STROKE #### [facility] [address] [place] [address] Turbine Technician: Bowen Lemon MD Potassium [Moles/Vol] 3.7 mmol/L Normal 3.7-5.3 [facility] Comment on above: Performed By: #### S ED, CRP, STROKE #### [facility] [address] [place] [address] Turbine Technician: Bowen Lemon MD Sodium [Moles/Vol] 134 mmol/L Low 135-144 [facility] Comment on above: Performed By: #### S ED, CRP, STROKE #### [facility] [employer] [address] [place] [address] Turbine Technician: Bowen Lemon MD Urea nitrogen [Mass/Vol] 18 mg/dL Normal 8-23 [facility] Comment on above: Performed By: #### S ED, CRP, STROKE #### [facility] [address] [place] [address] Turbine Technician: Bowen Lemon MD Myoglobin [Mass/Vol] 41 ng/mL Normal 28-72 [facility] Comment on above: Performed By: #### S ED, CRP, STROKE #### [facility] [address] [place] [address] Turbine Technician: Boewn Lemon MD Troponin, High Sens 180 ng/L Critically high 0-22 [facility] Comment on above: Result Comment: High Sensitivity Troponin values cannot be compared with other Troponin methodologies. Patients with high levels of Biotin oral intake (i.e >5mg/day) may have falsely decreased Troponin levels. Samples collected within 8 hours of biotin intake may require additional information for diagnosis. Performed By: #### S ED, CRP, STROKE #### [facility] [address] [place] [address] Turbine Technician: Bowen Lemon MD INR Coag (PPP) [Relative time] 1.0 {INR} Normal [facility] Comment on above: Result Comment: Therapeutic Range: Moderate Anticoagulant Intensity: INR = 2.0-3.0 High Anticoagulant Intensity: INR = 2.5-3.5 Performed By: #### S ED, CRP, STROKE #### [address] [address] Turbine Technician: Bowen Lemon MD PT Coag (PPP) [Time] 10.7 s Normal 9.1-12.3 [facility] Comment on above: Performed By: #### S ED, CRP, STROKE #### [address] [address] Turbine Technician: Bowen Lemon MD aPTT Coag (Bld) [Time] 23.4 s Normal 20.5-30.5 [facility] Comment on above: Result Comment: IV Heparin Therapy Range: 48.6-77.8 Performed By: #### S ED, CRP, STROKE #### [address] [address] Turbine Technician: Bowen Lemon MD Abs. Basophil 0.05 k/uL Normal 0.00-0.20 [facility] Comment on above: Performed By: #### S ED, CRP, STROKE #### [address] [address] Turbine Technician: Bowen Lemon MD Abs.Imm.Granulocyte 0.04 k/uL Normal 0.00-0.30 [facility] Comment on above: Performed By: #### S ED, CRP, STROKE #### [address] [address] Turbine Technician: Bowen Lemon MD Abs.Neutrophil (Seg) 6.24 k/uL Normal 1.50-8.10 [facility] Comment on above: Performed By: #### S ED, CRP, STROKE #### [address] [address] Turbine Technician: Bowen Lemon MD Basophils/100 WBC (Bld) 1 % Normal 0-2 [facility] Comment on above: Performed By: #### S ED, CRP, STROKE #### [address] [address] Turbine Technician: Bowen Lemon MD Eosinophils (Bld) [#/Vol] 0.07 10*3/uL Normal 0.00-0.44 [facility] Comment on above: Performed By: #### S ED, CRP, STROKE #### [address] [address] Turbine Technician: Bowen Lemon MD Eosinophils/100 WBC (Bld) 1 % Normal 1-4 [facility] Comment on above: Performed By: #### S ED, CRP, STROKE #### [address] [address] Turbine Technician: Bowen Lemon MD Erythrocyte distribution width (RBC) [Ratio] 14.0 % Normal 11.8-14.4 [facility] Comment on above: Performed By: #### S ED, CRP, STROKE #### [address] [address] Turbine Technician: Bowen Lemon MD Hematocrit (Bld) [Volume fraction] 44.0 % Normal 40.7-50.3 [facility] Comment on above: Performed By: #### S ED, CRP, STROKE #### [facility] [address] [place] [address] Turbine Technician: Bowen Lemon MD Hemoglobin (Bld) [Mass/Vol] 14.5 g/dL Normal 13.0-17.0 [facility] Comment on above: Performed By: #### S ED, CRP, STROKE #### [address] [address] Turbine Technician: Bowen Lemon MD Immature granulocytes/100 WBC (Bld) 0 % Normal 0 [facility] Comment on above: Performed By: #### S ED, CRP, STROKE #### [address] [address] Turbine Technician: Bowen Lemon MD Lymphocytes (Bld) [#/Vol] 2.89 10*3/uL Normal 1.10-3.70 [facility] Comment on above: Performed By: #### S ED, CRP, STROKE #### [address] [address] Turbine Technician: Bowen Lemon MD Lymphocytes/100 WBC (Bld) 29 % Normal 24-43 [facility] Comment on above: Performed By: #### S ED, CRP, STROKE #### [address] [address] Turbine Technician: Bowen Lemon MD MCH (RBC) [Entitic mass] 29.9 pg Normal 25.2-33.5 [facility] Comment on above: Performed By: #### S ED, CRP, STROKE #### [address] [address] Turbine Technician: Bowen Lemon MD MCHC (RBC) [Mass/Vol] 33.0 g/dL Normal 28.4-34.8 [facility] Comment on above: Performed By: #### S ED, CRP, STROKE #### [address] [address] Turbine Technician: Bowen Lemon MD MCV (RBC) [Entitic vol] 90.7 fL Normal 82.6-102.9 M [facility] Comment on above: Performed By: #### S ED, CRP, STROKE #### [address] [address] Turbine Technician: Bowen Lemon MD Monocytes (Bld) [#/Vol] 0.72 10*3/uL Normal 0.10-1.20 [facility] Comment on above: Performed By: #### S ED, CRP, STROKE #### [address] [address] Turbine Technician: Bowen Lemon MD Monocytes/100 WBC (Bld) 7 % Normal 3-12 [facility] Comment on above: Performed By: #### S ED, CRP, STROKE #### [address] [address] Turbine Technician: Bowen Lemon MD Neutrophil (Seg) 62 % Normal 36-65 [facility] Comment on above: Performed By: #### S ED, CRP, STROKE #### [address] [address] Turbine Technician: Bowen Lemon MD NRBC Automated 0.0 per 100 WBC Normal 0.0 [facility] Comment on above: Performed By: #### S ED, CRP, STROKE #### [address] [address] Turbine Technician: Bowen Lemon MD Platelet mean volume (Bld) [Entitic vol] 11.1 fL Normal 8.1-13.5 [facility] Comment on above: Performed By: #### S ED, CRP, STROKE #### [address] [address] Turbine Technician: Bowen Lemon MD Platelets (Bld) [#/Vol] 249 10*3/uL Normal 138-453 [facility] Comment on above: Performed By: #### S ED, CRP, STROKE #### [address] [address] Turbine Technician: Bowen Lemon MD RBC (Bld) [#/Vol] 4.85 10*6/uL Normal 4.21-5.77 [facility] Comment on above: Performed By: #### S ED, CRP, STROKE #### [address] [address] Turbine Technician: Bowen Leomn MD WBC (Bld) [#/Vol] 10.0 10*3/uL Normal 3.5-11.3 [facility] Comment on above: Performed By: #### S ED, CRP, STROKE #### [address] [address] Turbine Technician: Bowen Lemon MD Auto Diff Performed NOT REPORTED Normal [facility] Comment on above: Performed By: #### S ED, CRP, STROKE #### [address] [address] Turbine Technician: Bowen Lemon MD BUN/CRE Ratio NOT REPORTED Normal 9-20 [facility] Comment on above: Performed By: #### S ED, CRP, STROKE #### [address] [address] Turbine Technician: Bowen Lemon MD Platelet Estimate NOT REPORTED Normal [facility] Comment on above: Performed By: #### S ED, CRP, STROKE #### [facility] [address] [place] [address] Turbine Technician: Bowen Lemon MD RBC morphology finding Nom (Bld) NOT REPORTED Normal [facility] Comment on above: Performed By: #### S ED, CRP, STROKE #### [facility] [address] [place] [address] Turbine Technician: Bowen Lemon MD Staging: NOT REPORTED Normal [facility] Comment on above: Performed By: #### S ED, CRP, STROKE #### [facility] [address] [place] [address] Turbine Technician: Bowen Lemon MD Troponin Interp. NOT REPORTED Normal [facility] Comment on above: Performed By: #### S ED, CRP, STROKE #### [facility] [address] [place] [address] Turbine Technician: Bowen Lemon MD Troponin T NOT REPORTED Normal <0.03 [facility] Comment on above: Performed By: #### S ED, CRP, STROKE #### [facility] [address] [place] [address] Turbine Technician: Bowen Lemon MD WBC Morphology NOT REPORTED Normal [facility] Comment on above: Performed By: #### S ED, CRP, STROKE #### [employer] [address] [place] [address] Turbine Technician: Bowen Lemon MD TSH w/reflex to FT4on 2020 TSH Qn 1.04 m[IU]/L Normal 0.30-5.00 [facility] Comment on above: Performed By: #### T SHX TROPI ####[employer] [place] [address] Lab Director: Bowen Lemon MD TSH with ReflexOrdered By: Milton Osborn on 04-25-2021 TSH Qn 1.04 m[IU]/L [facility] [email or web address] Phone: [facility] [email or web address] Phone: Troponinon 04-25-2021 Troponin, High Sens 187 ng/L Critically high 0-22 [facility] Comment on above: Result Comment: High Sensitivity Troponin values cannot be compared with other Troponin methodologies. Patients with high levels of Biotin oral intake (i.e >5mg/day) may have falsely decreased Troponin levels. Samples collected within 8 hours of biotin intake may require additional information for diagnosis. Previous Alert Value Reported Performed By: #### T JENNYFERX, TROPI ####[employer] [address] [place] [address] Lab Director: Bowen Lemon MD Troponin Interp. NOT REPORTED Normal [facility] Comment on above: Performed By: #### T SHX, TROPI ####[facility] [place] [address] Lab Director: Bowen Lemon MD Troponin T NOT REPORTED Normal <0.03 [facility] Comment on above: Performed By: #### T SHX, TROPI ####[facility] [address] [place] [address] Lab Director: Bowen Lemon MD Troponin, High Sens 175 ng/L Critically high 0-22 [facility] Comment on above: Result Comment: High Sensitivity Troponin values cannot be compared with other Troponin methodologies. Patients with high levels of Biotin oral intake (i.e >5mg/day) may have falsely decreased Troponin levels. Samples collected within 8 hours of biotin intake may require additional information for diagnosis. Performed By: #### T ROPI #### [facility] [address] [place] [address] Turbine Technician: Bowen Lemon MD Troponin Interp. NOT REPORTED Normal [facility] Comment on above: Performed By: #### T ROPI #### [facility] [address] [place] [address] Turbine Technician: Bowen Lemon MD Troponin T NOT REPORTED Normal <0.03 [facility] Comment on above: Performed By: #### T ROPI #### [facility] [address] [place] [address] Turbine Technician: Bowen Lemon MD TroponinOrdered By: Jarek mar on 04-25-2021 Interpretation and review of laboratory results Abnormal [facility] [email or web address] Phone: Troponin Interp NOT REPORTED [facility] [email or web address] Phone: Troponin T NOT REPORTED <0.03 ng/mL [employer] Phone: Troponin, High Sensitivity 187 ng/L Critically high 0 - 22 ng/L [employer] Phone: Comment on above: High Sensitivity Troponin values cannot be compared with other Troponin methodologies. Patients with high levels of Biotin oral intake (i.e >5mg/day) may have falsely decreased Troponin levels. Samples collected within 8 hours of biotin intake may require additional information for diagnosis. Previous Alert Value Reported [employer] Phone: TroponinOrdered By: Anali orellana on 04-25-2021 Interpretation and review of laboratory results Abnormal [employer] Phone: Troponin Interp NOT REPORTED [employer] Phone: Troponin T NOT REPORTED <0.03 ng/mL [employer] Phone: Troponin, High Sensitivity 175 ng/L Critically high 0 - 22 ng/L [employer] Phone: Comment on above: High Sensitivity Troponin values cannot be compared with other Troponin methodologies. Patients with high levels of Biotin oral intake (i.e >5mg/day) may have falsely decreased Troponin levels. Samples collected within 8 hours of biotin intake may require additional information for diagnosis. [employer] [employer] Phone: Urinalysis Reflex to Culture Ordered By: Jarek Osborn on 04-25-2021 Bilirubin Urine Negative NEGATIVE [employer] Phone: Color, UA YELLOW YELLOW [employer] Phone: Glucose, Ur 1+ Abnormal NEGATIVE [employer] Phone: Interpretation and review of laboratory results Abnormal [employer] Phone: Ketones Ql (U) TRACE Abnormal NEGATIVE [employer] Phone: Leukocyte esterase Test strip Ql (U) Negative NEGATIVE [employer] Phone: Nitrite, Urine Negative NEGATIVE [employer] Phone: pH, UA 7.0 [facility] Work Phone: Protein, UA 2+ Abnormal NEGATIVE [facility] Work Phone: Specific [place], UA 1.012 [employer] Work Phone: Turbidity UA CLEAR CLEAR [facility] Work Phone: Urinalysis Comments NOT REPORTED [facility] [employer] Work Phone: Urine Hgb TRACE Abnormal NEGATIVE [facility] Phone: Urobilinogen, Urine Normal Normal [facility] Work Phone: [facility] Phone: VITAMIN B12 & FOLATEOrdered By: Sabrina Aguiar on 04-25-2021 Folate 15.2 ng/mL >4.8 [employer] Phone: [employer] Work Phone: XR CHEST PORTABLEon 04-25-20 XR [...] Marino Abdi DO 04/24/21 Final result Normal [facility] XR SHOULDER LEFT (MIN 2 VIEW S)on [...] Marino Abdi DO 04/24/21 Final result Normal [facility] CALCIUM, IONIC (POC)Ordered By: Kranthi Ruvalcaba on 04-24-2021 POC Ionized Calcium 1.30 mmol/L 1.15 - 1.33 mmol/L [employer] Phone: CT CERVICAL SPINE WO CONTRAS TOrdered By: Kranthi Ruvalcaba on 04-24-2021 1. No acute abnormal ity of the cervical spine. 2. C5/C6 moderate, C6/C7 mild central canal stenosis secondary to encroachment by disc osteophyte complex. 3. C3/C4 mild bilateral, C5/C6 moderate bilateral, C6/C7 severe left and moderate right neural foraminal stenosis secondary to encroachment by disc osteophyte complex. [employer] Phone: EXAMINATION: CT OF T HE CERVICAL [...] of significant central canal stenosis/compromise identified. Multilevel fomd-ae-ozsuvdss facet degenerative hypertrophy is seen. C3/C4 mild bilateral neural foraminal stenosis secondary to encroachment by disc osteophyte complex is seen. SOFT TISSUES: There is no prevertebral soft tissue swelling. [employer] Work Phone: Adam, Mhpn Incoming R adiant Results From [employer] - 04/24/2021 11:44 PM EDT EXAMINATION: CT [...] of significant central canal stenosis/compromise identified. Multilevel fqep-sz-onoaisou facet degenerative hypertrophy is seen. C3/C4 mild [...] secondary to encroachment by disc osteophyte complex. [employer] Phone: [employer] Phone: CT HEAD WO CONTRASTOrdered B y: Kranthi Ruvalcaba on 04-24-2021 No evidence for acut e intracranial hemorrhage, territorial infarction or intracranial mass lesion. Chronic lacunar infarction right pacheco radiata. Mild chronic microangiopathic ischemic disease. Mild generalized volume loss. [employer] Phone: EXAMINATION: CT OF T HE HEAD [...] cells are unremarkable. No fracture is identified. [employer] Phone: Adam, pn Incoming R adiant Results From [employer] - 04/24/2021 10:25 PM EDT EXAMINATION: CT [...] microangiopathic ischemic disease. Mild generalized volume loss. [employer] Phone: [employer] Phone: CTA HEAD NECK W CONTRASTOrde red [...] brain with diffusion-weighted imaging for further evaluation [employer] Phone: EXAMINATION: CTA OF THE HEAD AND [...] radiata remote lacunar infarct is again seen. [employer] Work Phone: Adam, pn Incoming R adiant Results From [employer] - 04/24/2021 10:51 PM EDT EXAMINATION: CTA [...] brain with diffusion-weighted imaging for further evaluation [employer] Phone: [employer] Phone: Creatinine W/GFR Point of Ca reOrdered By: Kranthi Ruvalcaba on 04-24-2021 Creatinine [Mass/Vol] 0.78 mg/dL 0.51 - 1.19 mg/dL [employer] Phone: GFR Non- >60 >60 mL/min [employer] Phone: GFR/1.73 sq M.predicted MDRD (S/P/Bld) [Vol rate/Area] mL/min/{1.73_m2} >60 mL/min [employer] Phone: GFR/1.73 sq M.predicted MDRD (S/P/Bld) [Vol rate/Area] [employer] Phone: Comment on above: Average GFR for 60-6 9 years old: 85 mL/min/1.73sq m Chronic Kidney Disease: <60 mL/min/1.73sq m Kidney failure: <15 mL/min/1.73sq m eGFR calculated using average adult body mass. Additional eGFR calculator available at: http://www.ScribbleLive/multiple_crcl_2012.htm ELECTROLYTES PLUSOrdered By: Kranthi Ruvalcaba on 04-24-2021 Anion gap [Moles/Vol] 10 mmol/L 7 - 16 mmol/L [employer] Phone: Chloride [Moles/Vol] 103 mmol/L 98 - 10 7 mmol/L [employer] Phone: CO2 [Moles/Vol] 26 mmol/L 22 - 30 mmol/L [employer] Phone: Potassium [Moles/Vol] 3.5 mmol/L 3.5 - 4.5 mmol/L [employer] Phone: Sodium [Moles/Vol] 138 mmol/L 138 - 146 mmol/L [employer] Phone: Hemoglobin and hematocrit, b loodOrdered By: Kranthi Ruvalcaba on 04-24-2021 Hematocrit (Bld) [Volume fraction] 46 % 41 - 53 % [employer] Phone: Hemoglobin (Bld) [Mass/Vol] 15.5 g/dL 13.5 - 17.5 g/dL [employer] Phone: Lactic Acid, POCOrdered By: Kranthi Ruvalcaba on 04-24-2021 POC Lactic Acid 2.14 mmol/L High 0.56 - 1.39 mmol/L [employer] Phone: No Panel InformationOrdered By: Kranthi Ruvalcaba on 04-24-2021 Interpretation and review of laboratory results Abnormal [employer] Phone: [employer] Phone: POCT GlucoseOrdered By: Tuan Ruvalcaba on 04-24-2021 Glucose [Mass/Vol] 140 mg/dL High 74 - 100 mg/dL [employer] Phone: POCT urea (BUN)Ordered By: Kamari Ruvalcaba on 04-24-2021 Urea nitrogen [Mass/Vol] 17 mg/dL 8 - 26 mg/dL [employer] Phone: Sedimentation RateOrdered By : Kranthi Ruvalcaba on 04-24-2021 Interpretation and review of laboratory results Abnormal [employer] Phone: Sed Rate 25 mm High 0 - 20 mm [employer] Phone: [employer] Phone: Venous Blood Gas, POCOrdered By: Kranthi Ruvalcaba on 04-24-2021 Irving Test NOT REPORTED [employer] Phone: FIO2 NOT REPORTED [employer] Phone: HCO3 (Bld) [Moles/Vol] 25.1 mmol/L 22.0 - 29.0 mmol/L [employer] Phone: Mode NOT REPORTED [employer] Phone: Negative Base Excess, Marquis NOT REPORTED [employer] Phone: O2 Device/Flow/% NOT REPORTED [employer] Phone: Oxygen saturation in Blood 81 % 60.0 - 85.0 % [employer] Phone: pCO2, Marquis 41.0 [employer] Phone: pH, Marquis 7.396 [employer] Phone: pO2, Marquis 45.1 [employer] Phone: POC pCO2 Temp NOT REPORTED mm Hg [employer] Phone: POC pH Temp NOT REPORTED [employer] Phone: POC pO2 Temp NOT REPORTED mm Hg [employer] Phone: Positive Base Excess, Marquis 0 [employer] Phone: Pt Temp NOT REPORTED [employer] Phone: Sample Site NOT REPORTED [employer] Phone: Total CO2, Venous NOT REPORTED 23.0 - 30.0 mmol/L [employer] Phone: XR CHEST PORTABLEOrdered By: Kranthi Ruvalcaba on 04-24-2021 Marginal inspiration , without evidence of acute cardiopulmonary disease [employer] Phone: EXAMINATION: ONE XRA Y VIEW OF [...] and vascular ectasia. Osseous structures appear intact. [employer] Phone: Adam, pn Incoming R adiant Results From [employer] - 04/24/2021 11:43 PM EDT EXAMINATION: ONE [...] inspiration, without evidence of acute cardiopulmonary disease [employer] Phone: [employer] Phone: XR SHOULDER LEFT (MIN 2 VIEW S)Ordered By: Anali Oreilly on 04-24-2021 No evidence of an ac riaz fracture involving the left shoulder [employer] Phone: EXAMINATION: TWO XRA Y VIEWS OF [...] is intact. Visualized left ribs appear normal. [employer] Phone: Adam, pn Incoming R adiant Results From [employer] - 04/24/2021 11:45 PM EDT EXAMINATION: TWO [...] an acute fracture involving the left shoulder [employer] Phone: [employer] Phone: Miscel, Refrigeratedon 05-15 Send Out Report SEE NOTE Normal [facility] Comment on above: Result Comment: [...] (previously designated C677T) and c.1286A>C (previously designated C0567J) were detected. This genotype may be associated [...] has an effect on cardiovascular disease. The [place] [employer] Practice Guidelines indicate [...] a contributing factor to hyperhomocysteinemia. Variants Tested: c.665C>T(p.[id number]) and c.1286A>C(p.Fgm495Jfi). (legacy names C677T and Q0065N, respectively). Clinical Sensitivity: Undefined; hyperhomocysteinemia is caused by genetic, physiologic and environmental factors. MTHFR variants are only one contributing factor. Methodology: Polymerase chain reaction (PCR) and fluorescence monitoring. Analytical Sensitivity AND Specificity: 99 percent. Limitations: Only two MTHFR gene variants (c.665C>T and c.1286A>C) are tested. Diagnostic errors can occur due to rare sequence variations. Test developed and characteristics determined by [employer]. See Compliance Statement C: 10-20 [employer]/ Performed by [facility], [address] [place] [address] [id number] [email or web address], Kristopher Kerr MD, Lab. Director Performed By: #### C RP, TSHX ####[facility] [address] [place] [address] [facility] Director: Shreyas Crain DO#### HOCYS, GLYHGB, B12FOL, FA7, FA8, AT3A ####[address] [address] Lab Director: Bowen Lemon MD#### ALPLA, AAPCR, APRTSF, AB2GLY, APROTC, ADYSF, AAPDSR ####[facility] [place] [address] [phone] [facility] Director: Kristopher Kerr MD#### LUPPRO ####[facility] V[address] [place] [address] [facility] Director: Shreyas Crain DOMercy [address] [address] Lab Director: Bowen Lemon MD#### MISCR ####[address] [address] Lab Director: RADHA Delgado [address] [phone] Lab Director: Kristopher Kerr MD Antithrombin III [place] 05-13 Antithrombin III Act 78 % Low 83-122 [facility] Comment on above: Result Comment: Patients receiving Hirudin may have a falsely decreased Antitrombin III Activity. Performed By: #### C RP, TSHX ####[facility] Yyf8854 [place], [place] [phone] Director: Shreyas Crain DO#### HOCYS, GLYHGB, B12FOL, FA7, FA8, AT3A ####[address] [address] Lab Director: Bowen Lemon MD#### ALPLA, AAPCR, APRTSF, AB2GLY, APROTC, ADYSF, AAPDSR ####[facility] [address] [place] [address] [phone] Lab Director: Kristopher Kerr MD#### LUPPRO ####[facility] Sii48[address] [place], [place] [phone] Director: Shreyas Crain DOMercy [address] [address] Lab Director: Bowen Lemon MD#### MISCR ####[address] [address] Lab Director: RADHA Delgado [address] [phone] Lab Director: Kristopher Kerr MD Factor VII Activityon 2019 Factor VII Activity 253 % High 50-[address] [facility] Comment on above: Performed By: #### C RP, TSHX ####[facility] God[address] [place], [place] [phone] Director: Shreyas Crain DO#### HOCYS, GLYHGB, B12FOL, FA7, FA8, AT3A ####[address] [phone] Director: Bowen Lemon MD#### ALPLA, AAPCR, APRTSF, AB2GLY, APROTC, ADYSF, AAPDSR ####[facility] [address] [place] [address] [phone] Lab Director: Kristopher Kerr MD#### LUPPRO ####[facility] [address] [place] [address] [phone] Director: Shreyas Crain DOMercy [address] [address] Lab Director: Bowen Lemon MD#### MISCR ####[address] [phone] Director: RADHA Delgado [address] [place] [address] [phone] Lab Director: Kristopher Kerr MD Factor VIII Activityon 05-13 Factor VIII Activity 73 % Normal 50-150 [facility] Comment on above: Performed By: #### C RP, TSHX ####[facility] Ygb6943 [place], [place] [phone] Director: Shreyas Crain DO#### HOCYS, GLYHGB, B12FOL, FA7, FA8, AT3A ####[facility] [address] [place] [address] [phone] Director: Bowen Lemon MD#### ALPLA, AAPCR, APRTSF, AB2GLY, APROTC, ADYSF, AAPDSR ####[facility] [address] [place] [address] Lab Director: Kristopher Kerr MD#### LUPPRO ####[facility] Dtm5869 [place], [place] [phone] Director: Shreyas Crain DOMercy [address] [phone] Director: Bowen Lemon MD#### MISCR ####[address] [phone] Director: RADHA Delgado [address] [phone] Lab Director: Kristopher Kerr MD Lupus Anticoagulanton 2019 Dilute Akil Viper Negative Normal [facility] Comment on above: Performed By: #### C RP, TSHX ####[address] [address] Lab Director: Shreyas Crain DO#### HOCYS, GLYHGB, B12FOL, FA7, FA8, AT3A ####[address] [phone] Director: Bowen Lemon MD#### ALPLA, AAPCR, APRTSF, AB2GLY, APROTC, ADYSF, AAPDSR ####[facility] [address] [place] [address] Lab Director: Kristopher Kerr MD#### LUPPRO ####[facility] [address] [place] [address] [phone] Director: Shreyas Crain DOMercy [address] [address] Lab Director: Bowen Lemon MD#### MISCR ####[address] [address] Lab Director: RADHA Delgado [address] [phone] Lab Director: Kristopher Kerr MD Qpev-Vvot-Scghymep 0 Phosphatidylser, IgA 3 U/mL Normal 0-19 [facility] Comment on above: Result Comment: (NOT E) Performed By: [facility] [address] [place], [place] [phone] Sleeve Baster: Kristopher Kerr MD, MS Performed By: #### C RP, TSHX ####[facility] Whv[address]60 [place] [address] [facility] Director: Shreyas Crain DO#### HOCYS, GLYHGB, B12FOL, FA7, FA8, AT3A ####[address] [address] Lab Director: Bowen Lemon MD#### ALPLA, AAPCR, APRTSF, AB2GLY, APROTC, ADYSF, AAPDSR ####[facility] [address] [place] [address] [phone] Lab Director: Kristopher Kerr MD#### LUPPRO ####[facility] [address] [place] [address] Lab Director: Shreyas Crain DOMercy [address] [address] Lab Director: Bwoen Lemon MD#### MISCR ####[address] [address] Lab Director: RADHA Delgado [address] [phone] Lab Director: Kristopher Kerr MD Phosphatidylser, IgG 5 U/mL Normal 0-10 [facility] Comment on above: Result Comment: (NOT E) [...] tests. Performed By: #### C RP, TSHX ####[facility] Tzq1195 [place] [address] Lab Director: Shreyas Crain DO#### HOCYS, GLYHGB, B12FOL, FA7, FA8, AT3A ####[address] [address] Lab Director: Bowen Lemon MD#### ALPLA, AAPCR, APRTSF, AB2GLY, APROTC, ADYSF, AAPDSR ####[facility] [address] [place] [address] [phone] Lab Director: Kristopher Kerr MD#### LUPPRO ####[facility] [address] [place] [address] Lab Director: Shreyas Crain DOMercy [address] [address] Lab Director: Bowen Lemon MD#### MISCR ####[address] [address] Lab Director: RADHA Delgado [address] [place] [address] [phone] Lab Director: Kristopher Kerr MD Phosphatidylser, IgM 6 U/mL Normal 0-24 [facility] Comment on above: Result Comment: (NOT E) [...] tests. Performed By: #### C RP, TSHX ####[facility] Toz[address]10 [place] [address] Lab Director: Shreyas Crain DO#### HOCYS, GLYHGB, B12FOL, FA7, FA8, AT3A ####[facility] [address] [place] [address] Lab Director: Bowen Lemon MD#### ALPLA, AAPCR, APRTSF, AB2GLY, APROTC, ADYSF, AAPDSR ####[facility] [address] [place] [address] [phone] Lab Director: Kristopher Kerr MD#### LUPPRO ####[facility] Goq7345 [place] [address] Lab Director: Shreyas Crain DOMercy [address] [place] [address] Lab Director: Bowen Lemon MD#### MISCR ####[address] [address] Lab Director: RADHA Delgado [address] [place] [address] [phone] Lab Director: Kristopher Kerr MD Fibrinogen Panelon 07-25-202 0 Fibrinogen 394 mg/dL Normal 150-[address] [facility] Comment on above: Performed By: #### C RP, TSHX ####[facility] M[address] [place], [place] [phone] Director: Shreyas Crain DO#### HOCYS, GLYHGB, B12FOL, FA7, FA8, AT3A ####[facility] [address] [place], [place] [phone] Director: Bowen Lemon MD#### ALPLA, AAPCR, APRTSF, AB2GLY, APROTC, ADYSF, AAPDSR ####[facility] [address] [place], [place] [phone] Lab Director: Kristopher Kerr MD#### LUPPRO ####[facility] Eqj1767 [place], [place] [phone] Director: Shreyas Crain DOMercy [address] [place] [address] Lab Director: Bowen Lemon MD#### MISCR ####[address] [phone] Director: RADHA Delgado [address] [place] [address] [phone] Lab Director: Kristopher Kerr MD Fibrinogen Antigen 347 mg/dL Normal 149-[address] [facility] Comment on above: Performed By: #### C RP, TSHX ####[facility] Cjx7121 [place], [place] [phone] Director: Shreyas Crain DO#### HOCYS, GLYHGB, B12FOL, FA7, FA8, AT3A ####[facility] [address] [place] [address] Lab Director: Bowen Lemon MD#### ALPLA, AAPCR, APRTSF, AB2GLY, APROTC, ADYSF, AAPDSR ####[facility] [address] [place] [address] Lab Director: Kristopher Kerr MD#### LUPPRO ####[facility] Syk6583 [place] [address] Lab Director: Shreyas Crain DOMercy [address] [address] Lab Director: Bowen Lemon MD#### MISCR ####[address] [address] Lab Director: RADHA Delgado [address] [address] Lab Director: Kristopher Kerr MD Fibrinogen Ratio 0.88 ratio Normal 0.59-1.23 [facility] Comment on above: Result Comment: (NOT E) INTERPRETIVE INFORMATION: Fibrinogen Antigen/Functional Ratio A ratio of greater than 1.23 is suggestive of a dysfibrogenemia. Performed by [facility], [address] [place] [address] [id number] [email or web address], Kristopher Kerr MD, Lab. Director Performed By: #### C RP, TSHX ####[facility] Rbh6850 [place] [address] Lab Director: Shreyas Crain DO#### HOCYS, GLYHGB, B12FOL, FA7, FA8, AT3A ####[address] [address] Lab Director: Bowen Lemon MD#### ALPLA, AAPCR, APRTSF, AB2GLY, APROTC, ADYSF, AAPDSR ####[facility] [address] [place] [address] [phone] Lab Director: Kristopher Kerr MD#### LUPPRO ####[facility] Qnv4892 [facility] [place] [address] Lab Director: Shreyas Crain DOMercy [address] [place] [address] Lab Director: Bowen Lemon MD#### MISCR ####[facility] [place] [address] Lab Director: RADHA Delgado [address] [place] [address] [phone] Lab Director: Kristopher Kerr MD Protein C Antigenicon 2019 Protein [Mass/Vol] g/dL Normal 63-[address] [facility] Comment on above: Result Comment: (NOT E) INTERPRETIVE INFORMATION: Protein C, Total Antigen Patients on warfarin may have decreased protein C values. Patients should be off warfarin therapy for two weeks for accurate measurement of protein C. Access complete set of age- and/or gender-specific reference intervals for this test in the [employer] [facility] Test Directory (1-800-DOCTORS). Performed by [facility], [address] [place] [address] [id number] [email or web address], Kristopher Kerr MD, Lab. Director Performed By: #### C RP, TSHX ####[facility] Mut3514 [facility] [place] [address] Lab Director: Shreyas Crain DO#### HOCYS, GLYHGB, B12FOL, FA7, FA8, AT3A ####[facility] [place] [address] Lab Director: Bowen Lemon MD#### ALPLA, AAPCR, APRTSF, AB2GLY, APROTC, ADYSF, AAPDSR ####[facility] [address] [place] [address] [phone] Lab Director: Kristopher Kerr MD#### LUPPRO ####[facility] Zvy8301 [place] [address] Lab Director: Shreyas Crain DOMercy [address]bl2078 [place] [address] Lab Director: Bowen Lemon MD#### MISCR ####[address] [address] Lab Director: RADHA Delgado [address] [phone] [facility] Director: Kristopher Kerr MD ACT Protein C [place] 05-10 Protein [Mass/Vol] 3.80 g/dL Normal >=2.[address] [facility] Comment on above: Result Comment: (NOT E) TEST INTERPRETATION: APC Resistance Profile Ratios less than 2.00 suggest APC resistance. This method uses factor V deficient plasma; therefore, APC resistance due to a nonfactor V mutation will not be detected. Extreme factor V deficiency may cause abnormal ratio. Performed by [facility], [address] [place] [address] [id number] [email or web address], Kristopher Kerr MD, Lab. Director Performed By: #### C RP, TSHX #### [facility] [address] [place] [address] Turbine Technician: Shreyas Crain DO #### HOCYS, GLYHGB, B12FOL, FA7, FA8, AT3A #### [address] [address] Turbine Technician: Bowen Lemon MD #### ALPLA, AAPCR, APRTSF, AB2GLY, APROTC, ADYSF, AAPDSR #### [facility] [employer] [address] [place] [address] Turbine Technician: Kristopher Kerr MD #### LUPPRO #### [facility] [address] [place] [address] Turbine Technician: Shreyas Crain DO [address] [address] Turbine Technician: Bowen Lemon MD #### MISCR #### [facility] [address] [place] [address] Turbine Technician: Bowen Lemon MD [facility] [address] [place], [place] [phone] Turbine Technician: Kristopher Kerr MD Rkwe-2-kyspgsafv Abon 2019 B2 Glycoprot I, IgG 2 SGU Normal 0-[address] [facility] Comment on above: Performed By: #### C RP, TSHX ####[facility] [address] [place] [address] Lab Director: Shreyas Crain DO#### HOCYS, GLYHGB, B12FOL, FA7, FA8, AT3A ####[address] [phone] Director: Bowen Lemon MD#### ALPLA, AAPCR, APRTSF, AB2GLY, APROTC, ADYSF, AAPDSR ####[facility] [address] [place] [address] [phone] Lab Director: Kristopher Kerr MD#### LUPPRO ####[facility] Lyw[address]54 [place] [address] Lab Director: Shreyas Crain DOMercy [address] [place] [address] Lab Director: Bowen Lemon MD#### MISCR ####[address] [address] Lab Director: RADHA Delgado [address] [place] [address] [phone] Lab Director: Kristopher Kerr MD B2 Glycoprot I, IgM 1 SMU Normal 0-[address] [facility] Comment on above: Result Comment: (NOT E) INTERPRETIVE INFORMATION: L9Swvecsthtvmk I, IgG and IgM Antibody The persistent [...] other criteria phospholipid antibody tests. Performed By: [facility] [address] [place] [address] Sleeve Baster: Kristopher Kerr MD, MS Performed By: #### C RP, TSHX ####[address] [address] Lab Director: Shreyas Crain DO#### HOCYS, GLYHGB, B12FOL, FA7, FA8, AT3A ####[address] [address] [facility] Director: Bowen Lemon MD#### ALPLA, AAPCR, APRTSF, AB2GLY, APROTC, ADYSF, AAPDSR ####[facility] [address] [place] [place] [address] [phone] Lab Director: Kristopher Kerr MD#### LUPPRO ####[facility] [address] [place] [address] [facility] Director: Shreyas Crain DOMercy [address] [address] Lab Director: Bowen Lemon MD#### MISCR ####[facility] [place], [place] [phone] Lab Director: RADHA Delgado [address] [phone] Lab Director: Kristopher Kerr MD Lipoprotein (a)on 05-10-2020 Lipoprotein a [Mass/Vol] 72 mg/dL High <=[address] [facility] Comment on above: Result Comment: (NOT E) Performed By: [facility] [address] [place] [address] Sleeve Baster: Kristopher Kerr MD, MS Performed By: #### C RP, TSHX #### [facility] [address] [place] [address] Turbine Technician: Shreyas Crain DO #### HOCYS, GLYHGB, B12FOL, FA7, FA8, AT3A #### [address] [address] Turbine Technician: Bowen Lemon MD #### ALPLA, AAPCR, APRTSF, AB2GLY, APROTC, ADYSF, AAPDSR #### [facility] [address] [place] [address] [phone] Turbine Technician: Kristopher Kerr MD #### LUPPRO #### [facility] [address] [place] [address] Turbine Technician: Shreyas Crain DO [address] [address] Turbine Technician: Bowen Lemon MD #### MISCR #### [address] [address] Turbine Technician: Bowen Lemon MD [address] [phone] Turbine Technician: Kristopher Kerr MD Protein S , Free 020 GFR/1.73 sq M predicted among non-blacks MDRD (S/P/Bld) [Vol rate/Area] 109 % Normal 74-[address] [facility] Comment on above: Result Comment: [...] reference intervals for this test in the [employer] [facility] Test Directory (1-800-DOCTORS). Performed by [facility], [address] [place] [address] [phone] www.1-800-DOCTORS, Kristopher Kerr MD, Lab. Director Performed By: #### C RP, TSHX #### [facility] [address] [place] [address] Turbine Technician: Shreyas Crain DO #### HOCYS, GLYHGB, B12FOL, FA7, FA8, AT3A #### [address] [phone] Turbine Technician: Bowen Lemon MD #### ALPLA, AAPCR, APRTSF, AB2GLY, APROTC, ADYSF, AAPDSR #### [facility] [employer] [address] [place] [address] Turbine Technician: Kristopher Kerr MD #### LUPPRO #### [facility] [address] [place] [address] Turbine Technician: Shreyas Crain DO [address] [phone] Turbine Technician: Bowen Lemon MD #### MISCR #### [address] [address] Turbine Technician: Bowen Lemon MD [address] [phone] Turbine Technician: Kristopher Kerr MD Lupus Anticoagulanton 2019 Antiphospholipid IgA 2.2 APU Normal <12 [facility] Comment on above: Result Comment: Reference Range: 12 - 15 Equivocal >15 Positive Performed By: #### C RP, TSHX ####[facility] Zbz5559 [place] [address] [facility] Director: Shreyas Crain DO#### HOCYS, GLYHGB, B12FOL, FA7, FA8, AT3A ####[facility] [address] [place] [address] Lab Director: Bowen Lemon MD#### ALPLA, AAPCR, APRTSF, AB2GLY, APROTC, ADYSF, AAPDSR ####[facility] [address] [place] [address] [phone] Lab Director: Kristopher Kerr MD#### LUPPRO ####[facility] Ryr3258 [place] [address] [facility] Director: Shreyas Crain DOMercy [address] [address] Lab Director: Bowen Lemon MD#### MISCR ####[address] [address] Lab Director: RADHA Delgado [address] [place] [address] Lab Director: Kristopher Kerr MD Antiphospholipid IgG 3.5 GPU Normal <20 [facility] Comment on above: Result Comment: Reference Range: 20.0 - 29.9 Low Positive 30.0 - 79.9 Moderate Positive >79.9 High Positive Performed By: #### C RP, TSHX ####[facility] Bko2539 [place] [address] Lab Director: Shreyas Crain DO#### HOCYS, GLYHGB, B12FOL, FA7, FA8, AT3A ####[address] [address] Lab Director: Bowen Lemon MD#### ALPLA, AAPCR, APRTSF, AB2GLY, APROTC, ADYSF, AAPDSR ####[facility] [address] [place] [address] [phone] Lab Director: Kristopher Kerr MD#### LUPPRO ####[facility] Dkg9347 [place] [address] Lab Director: [place] [address] Lab Director: Bowen Lemon MD#### MISCR ####[place] [address] Lab Director: RADHA Delgado [address] [phone] Lab Director: Kristopher Kerr MD Antiphospholipid IgM 5.2 MPU Normal <20 [facility] Comment on above: Result Comment: Reference Range: 20.0 - 29.9 Low Positive 30.0 - 79.9 Moderate Positive >79.9 High Positive Performed By: #### C RP, TSHX ####[facility] [address] [place] [address] Lab Director: Shreyas Crain DO#### HOCYS, GLYHGB, B12FOL, FA7, FA8, AT3A ####[address] [address] Lab Director: Bowen Lemon MD#### ALPLA, AAPCR, APRTSF, AB2GLY, APROTC, ADYSF, AAPDSR ####[facility] [address] [place] [address] [phone] Lab Director: Kristopher Kerr MD#### LUPPRO ####[facility] Shs8790 [place], [place] [phone] Director: Shreyas Crain DOMercy [address] [phone] Director: Bowen Lemon MD#### MISCR ####[address] [phone] Director: RADHA Delgado [address] [phone] Lab Director: Kristopher Kerr MD [facility], [facility] Test Name THROMBOTIC RISK PANE L TO [facility] TEST [id number] Normal [facility] Comment on above: Performed By: #### C RP, TSHX ####[facility] [address] [place] [address] Lab Director: Shreyas Crain DO#### HOCYS, GLYHGB, B12FOL, FA7, FA8, AT3A ####[address] [phone] Director: Bowen Lemon MD#### ALPLA, AAPCR, APRTSF, AB2GLY, APROTC, ADYSF, AAPDSR ####[facility] [address] [place], [place] [phone] Lab Director: Kristopher Kerr MD#### LUPPRO ####[facility] Kje1714 [place], [place] [phone] Director: Shreyas Crain DOMercy [address] [address] Lab Director: Bowen Lemon MD#### MISCR ####[address] [address] Lab Director: RADHA Delgado [address]zo[address]67 [place] [address] Lab Director: Kristopher Kerr MD B12/Folate Panelon 0 Cobalamin (Vitamin B12) [Mass/Vol] 840 pg/mL Normal 232-[address] [facility] Comment on above: Performed By: #### C RP, TSHX #### [facility] [address] [place] [address] Turbine Technician: Shreyas Crain DO #### HOCYS, GLYHGB, B12FOL, FA7, FA8, AT3A #### [address] [address] Turbine Technician: Bowen Lemon MD #### ALPLA, AAPCR, APRTSF, AB2GLY, APROTC, ADYSF, AAPDSR #### [facility] [address] [place] [address] Turbine Technician: Kristopher Kerr MD #### LUPPRO #### [facility] [address] [place] [address] Turbine Technician: Shreyas Crain DO [address] [address] Turbine Technician: Bowen Lemon MD #### MISCR #### [address] [address] Turbine Technician: Bowen Lemon MD [facility] [address] [place] [address] Turbine Technician: Kristopher Kerr MD Folic Acid 5.3 ng/mL Normal >4.[address] [facility] Comment on above: Performed By: #### C RP, TSHX #### [facility] [address] [place] [address] Turbine Technician: Shreyas Crain DO #### HOCYS, GLYHGB, B12FOL, FA7, FA8, AT3A #### [address] [address] Turbine Technician: Bowen Lemon MD #### ALPLA, AAPCR, APRTSF, AB2GLY, APROTC, ADYSF, AAPDSR #### [facility] [address] [place] [address] Turbine Technician: Kristopher Kerr MD #### LUPPRO #### [facility] [place] [address] Turbine Technician: Shreyas Crain DO [address] [address] Turbine Technician: Bowen Lemon MD #### MISCR #### [address] [address] Turbine Technician: Bowen Lemon MD [facility] [address] [place], [place] [phone] Turbine Technician: Kristopher Kerr MD C-Reactive Proteinon 020 CRP [Mass/Vol] 2.7 mg/L Normal 0.0-5.[address] [facility] Comment on above: Performed By: #### C RP, TSHX #### [facility] [address] [place] [address] Turbine Technician: Shreyas Crain DO #### HOCYS, GLYHGB, B12FOL, FA7, FA8, AT3A #### [address] [address] Turbine Technician: Bowen Lemon MD #### ALPLA, AAPCR, APRTSF, AB2GLY, APROTC, ADYSF, AAPDSR #### [facility] [address] [place] [address] Turbine Technician: Kristopher Kerr MD #### LUPPRO #### [facility] [address] [place] [address], [place] [address] Turbine Technician: Shreyas Crain DO [address] [phone] Turbine Technician: Bowen Lemon MD #### MISCR #### [address] [address] Turbine Technician: Bowen Lemon MD [address] [address] Turbine Technician: Kristopher Kerr MD CRP [Mass/Vol] 2.7 mg/L 0 - 5 mg/L [place], [place] DNA Testingon 05-08-2020 DNA Testing (NOTE) Specimen(s) Received: Peripheral blood, FVLI Clinical Information: CVA RESULTS: The Factor V Leiden R506Q Mutation analysis for this patient was sent to [facility]. See separate report. Electronically Signed Out Elba Rodriguez M.D. [facility] MO[facility] LABOR[facility] [address] [place] [phone] FACTOR V LEIDEN MUTATION ANALYSIS REPORT [facility] Alpesh Dc MD, Elba Rodriguez MD [facility] Comment on above: Performed By: #### C RP, TSHX #### [facility] [address] [place] [address] Turbine Technician: Shreyas Crain DO #### HOCYS, GLYHGB, B12FOL, FA7, FA8, AT3A #### [address] [address] Turbine Technician: Bowen Lemon MD #### ALPLA, AAPCR, APRTSF, AB2GLY, APROTC, ADYSF, AAPDSR #### [facility] [address] [place] [address] Turbine Technician: Kristopher Kerr MD #### LUPPRO #### [facility] [address] [place] [address] [place] [address] Turbine Technician: Shreyas Crain DO [address] [address] Turbine Technician: Bowen Lemon MD #### MISCR #### [address] [address] Turbine Technician: Bowen Lemon MD [address] [address] Turbine Technician: Kristopher Kerr MD DNA Testing (NOTE) Specimen(s) Received: Peripheral blood Clinical Information: CVA RESULTS: The MTHFR Mutation variants c.665C>T and c.1286A>C analysis for this patient was sent to [facility]. See separate report. Electronically Signed Out Elba Rodriguez M.D. [facility] DIAGNOST[facility] MOLECULAR PATHOLOGY LABORATORY [address] [place], [place] [phone] MTHFR GENE MUTATION ANALYSIS REPORT [facility] Alpesh Dc MD, Elba Rodriguez MD [facility] Comment on above: Performed By: #### C RP, TSHX #### [facility] [address] [place] [address] Turbine Technician: Shreyas Crain DO #### HOCYS, GLYHGB, B12FOL, FA7, FA8, AT3A #### [address] [address] Turbine Technician: Bowen Lemon MD #### ALPLA, AAPCR, APRTSF, AB2GLY, APROTC, ADYSF, AAPDSR #### [address] [address] Turbine Technician: Kristopher Kerr MD #### LUPPRO #### [facility] [address] [place] [address] Turbine Technician: Shreyas Crain DO [address] [phone] Turbine Technician: Bowen Lemon MD #### MISCR #### [address] [address] Turbine Technician: Bowen Lemon MD [facility] [address] [place], [place] [phone] Turbine Technician: Kristopher Kerr MD DNA Testing (NOTE) Specimen(s) Received: Peripheral blood, PTI Clinical Information: CVA RESULTS: The Prothrombin (F2) c.*97G>A ([id number]) Pathogenic Variant analysis for this patient was sent to [facility]. See separate report. Electronically Signed Out Elba Rodriguez M.D. [facility] [address] [place] [phone] FACTOR II (PROTHROMBIN) MUTATION ANALYSIS REPORT [facility] Alpesh Dc MD, Elba Rodriguez MD [facility] Comment on above: Performed By: #### C RP, TSHX #### [facility] [address] [place] [address] Turbine Technician: Shreyas Crain DO #### HOCYS, GLYHGB, B12FOL, FA7, FA8, AT3A #### [address] [address] Turbine Technician: Bowen Lemon MD #### ALPLA, AAPCR, APRTSF, AB2GLY, APROTC, ADYSF, AAPDSR #### [facility] [address] [place], [place] [phone] Turbine Technician: Kristopher Kerr MD #### LUPPRO #### [facility] [address] [place] [address] Turbine Technician: Shreyas Crain DO [address] [address] Turbine Technician: Bowen Lemon MD #### MISCR #### [employer] [address] [place] [address] Turbine Technician: Bowen Lemon MD [facility] [employer] [address] [place] [address] Turbine Technician: Kristopher Kerr MD ECHO Complete 2D W Doppler W Coloron 05-08-2020 [facility] Transthoracic Echocardiography Report (TTE) Patient Name ICJURGEN Date of Study 05/08/2020 YOEL Bryant Date of 1955 Gender Male Age 64 year(s) Race Room Number Height: 72 inch, 182.88 cm Corporate ID [id number] Weight: 220 pounds, 99.8 kg # Patient Acct [id number] BSA: 2.22 m^2 BMI: 29.84 # kg/m^2 MR # [id number] Safety And Occupational Health Manager Yoselyn Pedro Interpreting Physician Kvng Hanna Fellow Referring Nurse Practitioner Interpreting Referring Physician Andreia Chiang Fellow Type of Study TTE procedure:2D Echocardiogram, M-Mode, Doppler, Color Doppler, Bubble Study. Procedure Date Date: 05/08/2020 Start: 10:11 AM Study Location: [facility] Technical Quality: Fair visualization Indications:CVA [...] velocity:0.05 m/s Lateral Wall E' velocity:0.05 m/s [facility], [place] Adam, Mhpn Incoming C ardio Results From Cpacs/Ge - 05/08/2020 11:32 AM EDT [facility] Transthoracic Echocardiography Report (TTE) Patient Name ICKES Date of Study 05/08/2020 YOEL E Date of 1955 Gender Male Age 64 year(s) Race Room Number Height: 72 inch, 182.88 cm Corporate ID [id number] Weight: 220 pounds, 99.8 kg # Patient Acct [id number] BSA: 2.22 m^2 BMI: 29.84 # kg/m^2 MR # [id number] Safety And Occupational Health Manager Yoselyn Pedro Interpreting Physician Kvng Hanna Fellow Referring Nurse Practitioner Interpreting Referring Physician Andreia Chiang Fellow Type of Study TTE procedure:2D Echocardiogram, M-Mode, Doppler, Color Doppler, Bubble Study. Procedure Date Date: 05/08/2020 Start: 10:11 AM Study Location: [facility] Technical Quality: Fair visualization Indications:CVA [...] velocity:0.05 m/s Lateral Wall E' velocity:0.05 m/s [place], [place] Hemoglobin A1Con 05-08-2020 HbA1c (Bld) [Mass fraction] 8.6 % High 4.0-6.[address] [facility] Comment on above: Performed By: #### C RP, TSHX #### [facility] [address] [facility] [place] [address] Turbine Technician: Shreyas Crain DO #### HOCYS, GLYHGB, B12FOL, FA7, FA8, AT3A #### [facility] [address] [place] [address] Turbine Technician: Bowen Lemon MD #### ALPLA, AAPCR, APRTSF, AB2GLY, APROTC, ADYSF, AAPDSR #### [facility] [address] [place], [place] [phone] Turbine Technician: Kristopher Kerr MD #### LUPPRO #### [facility] [address] [facility] [place] [address] Turbine Technician: Shreyas Crain DO [address] [phone] Turbine Technician: Bowen Lemon MD #### MISCR #### [facility] [address] [place] [address] Turbine Technician: Bowen Lemon MD [facility] [address] [place], [place] [phone] Turbine Technician: Kristopher Kerr MD HbA1c (Bld) [Mass fraction] 200 mg/dL Normal [facility] Comment on above: Result Comment: The ADA and AACC recommend providing the estimated average glucose result to permit better patient understanding of their HBA1c result. Performed By: #### C RP, TSHX #### [facility] [address] [place] [address] Turbine Technician: Shreyas Crain DO #### HOCYS, GLYHGB, B12FOL, FA7, FA8, AT3A #### [address] [address] Turbine Technician: Bowen Lemon MD #### ALPLA, AAPCR, APRTSF, AB2GLY, APROTC, ADYSF, AAPDSR #### [facility] [address] [place] [address] Turbine Technician: Kristopher Kerr MD #### LUPPRO #### [facility] [address] [place] [address] Turbine Technician: Shreyas Crain DO [address] [address] Turbine Technician: Bowen Lemon MD #### MISCR #### [address] [address] Turbine Technician: Bowen Lemon MD [facility] [address] [place], [place] [id number] Turbine Technician: Kristopher Kerr MD Glucose [Mass/Vol] 200 mg/dL [place], [place] Comment on above: The ADA and AACC rec ommend providing the estimated average glucose result to permit better patient understanding of their HBA1c result. HbA1c (Bld) [Mass fraction] 8.6 % High 4 - 6 % [place], [place] Interpretation and review of laboratory results Abnormal [place], [place] Homocysteineon 05-08-2020 Homocysteine 10.0 umol/L Normal <15.[address] [facility] Comment on above: Performed By: #### C RP, TSHX #### [facility] [address] [place] [address] Turbine Technician: Shreyas Crain DO #### HOCYS, GLYHGB, B12FOL, FA7, FA8, AT3A #### [facility] [address] [place] [address] Turbine Technician: Bowen Lemon MD #### ALPLA, AAPCR, APRTSF, AB2GLY, APROTC, ADYSF, AAPDSR #### [facility] [address] [place], [place] [id number] Turbine Technician: Kristopher Kerr MD #### LUPPRO #### [facility] [address] [place] [address] Turbine Technician: Shreyas Crain DO [facility] [address] [place] [address] Turbine Technician: Bowen Lemon MD #### MISCR #### [address] [address] Turbine Technician: Bowen Lemon MD [facility] [address] [place] [address] Turbine Technician: Kristopher Kerr MD Homocysteine, Serumon 2019 Homocysteine 10 umol/L <15.0 [place], [place] Lupus Anticoagulanton 2019 aPTT Coag (Bld) [Time] 31.2 s Normal 24.0-36.0 [facility] Comment on above: Result Comment: IV Heparin Therapy Range: 62.0-94.0 Performed By: #### C RP, TSHX ####[facility] Wov[address]407 [place] [address] Lab Director: Shreyas Crain DO#### HOCYS, GLYHGB, B12FOL, FA7, FA8, AT3A ####[facility] [place] [address] Lab Director: Bowen Lemon MD#### ALPLA, AAPCR, APRTSF, AB2GLY, APROTC, ADYSF, AAPDSR ####[facility] [address] [place], [place] [id number] Lab Director: Kristopher Kerr MD#### LUPPRO ####[facility] Fet[address]345 [place] [address] Lab Director: Shreyas Crain DOMercy [address] [address] Lab Director: Bowen Lemon MD#### MISCR ####[address] [address] Lab Director: RADHA Delgado [address] [place] [address] [phone] Lab Director: Kristopher Kerr MD INR Coag (PPP) [Relative time] 1.0 {INR} Normal [facility] Comment on above: Result Comment: Non-therapeutic Range: INR = 0.9-1.2 Therapeutic Range: Moderate Anticoagulant Intensity: INR = 2.0-3.0 High Anticoagulant Intensity: INR = 2.5-3.5 Performed By: #### C RP, TSHX ####[address] [address] Lab Director: Shreyas Crain DO#### HOCYS, GLYHGB, B12FOL, FA7, FA8, AT3A ####[address] [address] Lab Director: Bowen Lemon MD#### ALPLA, AAPCR, APRTSF, AB2GLY, APROTC, ADYSF, AAPDSR ####[facility] [address] [place] [address] [phone] Lab Director: Kristopher Kerr MD#### LUPPRO ####[facility] [address] [place] [address] Lab Director: Shreyas Crain DOMercy [address] [address] Lab Director: Bowen Lemon MD#### MISCR ####[address] [address] Lab Director: RADHA Delgado [address] [phone] Lab Director: Kristopher Kerr MD PT Coag (PPP) [Time] 12.7 s Normal 11.8-14.6 [facility] Comment on above: Performed By: #### C RP, TSHX ####[facility] Dcd1452 [place], [place] [phone] Director: Shreyas Crain DO#### HOCYS, GLYHGB, B12FOL, FA7, FA8, AT3A ####[address] [phone] Director: Bowen Lemon MD#### ALPLA, AAPCR, APRTSF, AB2GLY, APROTC, ADYSF, AAPDSR ####[facility] [address] [place] [address] [phone] Lab Director: Kristopher Kerr MD#### LUPPRO ####[facility] [address] [place] [address] [phone] Director: Shreyas Crain DOMercy [address] [address] Lab Director: Bowen Lemon MD#### MISCR ####[address] [address] Lab Director: RADHA Delgado [address] [phone] Lab Director: Kristopher Kerr MD Lupus Anticoagulant NOT REPORTED Normal [facility] Comment on above: Performed By: #### C RP, TSHX ####[facility] Fgo2938 [place] [address] Lab Director: Shreyas Crain DO#### HOCYS, GLYHGB, B12FOL, FA7, FA8, AT3A ####[address] [address] Lab Director: Bowen Lemon MD#### ALPLA, AAPCR, APRTSF, AB2GLY, APROTC, ADYSF, AAPDSR ####[facility] [address] [place], [place] [id number] Lab Director: Kristopher Kerr MD#### LUPPRO ####[facility] Gsg9729 [place] [address] Lab Director: Shreyas Crain DOMercy [address] [address] Lab Director: Bowen Lemon MD#### MISCR ####[address] [address] Lab Director: RADHA Delgado [address] [place] [address] [phone] Lab Director: Kristopher Kerr MD TSH With Reflex Ft4on 2019 TSH Qn 1.14 m[IU]/L [place], [place] TSH w/reflex to FT4on 2019 TSH Qn 1.14 m[IU]/L Normal 0.30-5.[address] [facility] Comment on above: Performed By: #### C RP, TSHX #### [facility] [address] [place] [address] Turbine Technician: Shreyas Crain DO #### HOCYS, GLYHGB, B12FOL, FA7, FA8, AT3A #### [facility] [address] [place] [address] Turbine Technician: Bowen Lemon MD #### ALPLA, AAPCR, APRTSF, AB2GLY, APROTC, ADYSF, AAPDSR #### [facility] [address] [place] [address] Turbine Technician: Kristopher Kerr MD #### LUPPRO #### [facility] [address] [place] [address] Turbine Technician: Shreyas Crain DO [facility] [address] [place] [address] Turbine Technician: Bowen Lemon MD #### MISCR #### [facility] [address] [place] [address] Turbine Technician: Bowen Lemon MD [facility] [address] [place], [place] [phone] Turbine Technician: Kristopher Kerr MD Vitamin B12 & Folateon 05-08 Cobalamin (Vitamin B12) [Mass/Vol] 840 pg/mL 232 - 1245 pg/mL [place], [place] Folate 5.3 ng/mL >4.8 [place], [place] CT HEAD WO CONTRASTon 2019 CT [...] Jethro Duran MD 12/12/19 Final result Normal [facility] Previous hyperdensit y appears to have decreased in conspicuity suggesting resolving hemorrhage. The findings were sent to the Radiology Results Communication Center at 9:44 am on 12/12/2019to be communicated to a licensed caregiver. [facility] [place] EXAMINATION: CT OF T HE HEAD WITHOUT [...] of the visualized skull or soft tissues. [facility] [place] Adam, Mhpn Incoming R adiant Results From [employer] - 12/12/2019 3:40 PM EST EXAMINATION: CT [...] 12/12/2019to be communicated to a licensed caregiver. [place], [place] CT HEAD WO CONTRASTon 2019 CT [...] Beto Lo MD 11/06/19 Final result Normal [facility] CT HEAD WO CONTRASTOrdered B [...] with chronic microvascular white matter ischemic disease. [facility] Work Phone: EXAMINATION: CT OF T HE [...] of the visualized skull or soft tissues. [employer] Work Phone: Adam, Mhpn Incoming R adiant Results From [employer] - 11/06/2019 1:51 PM EST EXAMINATION: CT [...] with chronic microvascular white matter ischemic disease. [employer] Phone: CT head without contrastOrde red By: Barbara Perea on 10-31-2019 Punctate hyperdense focus in the white matter of the right parietal lobe adjacent to the right lateral ventricle that may represent a small hemorrhage and short-term follow-up CT of the brain is recommended within the next 24 hours. Findings were discussed with Dr. Romo At 9:05 am on 10/31/2019. [employer] Phone: EXAMINATION: CT OF T HE HEAD [...] of the visualized skull or soft tissues. [employer] Phone: Adam, Mhpn Incoming R adiant Results From [employer] - 10/31/2019 9:34 AM EST EXAMINATION: CT [...] Dr. Romo At 9:05 am on 10/31/2019. [employer] Phone: EKG 12 LeadOrdered By: Robert Stephenson on 10-31-2019 Atrial Rate 79 BPM [employer] Phone: P [place] 54 degrees [employer] Phone: P-R Interval 188 ms [employer] Phone: Q-T Interval 392 ms [employer] Phone: QRS Duration 102 ms [employer] Phone: QTc Calculation (Bazett) 449 ms [employer] Phone: R [place] 0 degrees [employer] Phone: T [place] 59 degrees [employer] Phone: [phone] Ventricular Rate 79 BPM [employer] Phone: [phone] Normal sinus rhythm Normal ECG No previous ECGs available [employer] Phone: Adam, Mhpn Incoming E kg Results From [employer] - 10/31/2019 10:53 AM EST Normal sinus rhythm Normal ECG No previous ECGs available [employer] Phone: POC Glucose FingerstickOrder ed By: Bennie Bosch on 10-31-2019 Glucose [Mass/Vol] 122 mg/dL High 75 - 110 mg/dL [employer] Work Phone: Interpretation and review of laboratory results Abnormal [facility] Work Phone: Vital Signs Date Time Vital Sign Value Performing Clinician Facility 09-06-2024 13:13-0500 Body height 182.9 cm Alec Pinzon MD Work Phone: [facility] 09-06-2024 13:13-0500 Body mass index (BMI) [Ratio] 28.35 kg/m2 Alec Pinzon MD Work Phone: [facility] 09-06-2024 13:13-0500 Body temperature 97.3 [degF] Alec Pinzon MD Work Phone: [facility] 09-06-2024 13:13-0500 Body weight 94.8 kg Alec Pinzon MD Work Phone: [facility] 09-06-2024 13:13-0500 Diastolic blood pressure 58 mm[Hg] Alec Pinzon MD Work Phone: [facility] 09-06-2024 13:13-0500 Heart rate 75 /min Alec Pinzon MD Work Phone: [facility] 09-06-2024 13:13-0500 Respiratory rate 18 /min Alec Pinzon MD Work Phone: [facility] 09-06-2024 13:13-0500 SaO2% (BldA) [Mass fraction] 97 % Alec Pinzon MD Work Phone: [facility] 09-06-2024 13:13-0500 Systolic blood pressure 96 mm[Hg] Alec Pinzon MD Work Phone: [facility] 05-03-2021 07:59-0400 Diastolic blood pressure 74 mm[Hg] Kranthi Ruvalcaba MD Work Phone: [employer] Work Phone: 05-03-2021 07:59-0400 Heart rate 77 /min Kranthi Ruvalcaba MD Work Phone: [employer] Work Phone: 05-03-2021 07:59-0400 Systolic blood pressure 136 mm[Hg] Kranthi Ruvalcaba MD Work Phone: [employer] Work Phone: 05-03-2021 03:43-0400 Body temperature 97.81 [degF] Kranthi Ruvalcaba MD Work Phone: [employer] Work Phone: 05-03-2021 03:43-0400 Respiratory rate 16 /min Kranthi uRvalcaba MD Work Phone: [employer] Work Phone: 05-03-2021 03:43-0400 SaO2% (BldA) [Mass fraction] 91 % Kranthi Ruvalcaba MD Work Phone: [employer] Work Phone: 05-02-2021 11:11-0400 Body height 182.9 cm Kranthi Ruvalcaba MD Work Phone: [employer] Work Phone: 04-24-2021 21:58-0400 Body mass index (BMI) [Ratio] 30.24 kg/m2 Kranthi Ruvalcaba MD Work Phone: [employer] Work Phone: 04-24-2021 21:58-0400 Body weight 101.15 kg Kranthi Ruvalcaba MD Work Phone: [employer] Work Phone: 10-31-2019 11:07-0500 Diastolic blood pressure 78 mm[Hg] Robert Stephenson MD Work Phone: [employer] Work Phone: 10-31-2019 11:07-0500 Heart rate 80 /min Robert Stephenson MD Work Phone: [employer] Work Phone: 10-31-2019 11:07-0500 Respiratory rate 17 /min Robert Stephenson MD Work Phone: [employer] Work Phone: 10-31-2019 11:07-0500 SaO2% (BldA) [Mass fraction] 92 % Robert Stephenson MD Work Phone: [employer] Work Phone: 10-31-2019 11:07-0500 Systolic blood pressure 120 mm[Hg] Robert Stephenson MD Work Phone: [facility] Work Phone: 10-31-2019 09:58-0500 Body height 182.9 cm Robert Stephenson MD Work Phone: [employer] Work Phone: 10-31-2019 09:58-0500 Body mass index (BMI) [Ratio] 28.88 kg/m2 Robert Stephenson MD Work Phone: [facility] Work Phone: 10-31-2019 09:58-0500 Body temperature 97.7 [degF] Robert Stephenson MD Work Phone: [employer] Work Phone: 10-31-2019 09:58-0500 Body weight 96.6 kg Robert Stephenson MD Work Phone: [employer] Work Phone: Encounters Encounter Date Encounter Type [...] of insulin (CMS/HCC) (Primary Dx); Adrenal insufficiency ([facility]/HCC); Benign essential hypertension (CMS/HCC); Type 2 diabetes mellitus with diabetic polyneuropathy, without long-term current use of insulin ([facility]/HCC); 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 Start: 08-30-2024 End: 08-30-2024 ambulatory [facility] Start: 08-22-2024 End: 08-22-2024 Refill Alec Pinzon MD Work Phone: [facility] Comment on above: 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 (CMS/HCC) Start: 08-11-2024 End: 08-11-2024 ambulatory [facility] Start: 08-09-2024 ambulatory [facility] Start: 07-26-2024 End: 07-26-2024 Refsandy Pinzon MD Work Phone: [facility] Comment on above: 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 (CMS/HCC) Start: 07-19-2024 End: 07-19-2024 [facility] Start: 07-18-2024 End: 07-18-2024 [facility] Start: 07-10-2024 Evaluation and manag ement of inpatient KAY MAHONEY [facility] Start: 07-09-2024 Emergency department patient visit [facility] Start: 07-09-2024 Emergency department patient visit [facility] Start: 07-09-2024 End: 07-12-2024 Evaluation and management of inpatient AMBER LUTZUR [facility] Start: 06-30-2024 End: 06-30-2024 ambulatory [facility] Start: 06-29-2024 ambulatory JAS GALLEGOS [facility] Start: 06-09-2024 End: 06-09-2024 ambulatory ALEKSANDRA [facility] Start: 06-07-2024 End: 06-07-2024 ambulatory WILLIAM GAMBINO [facility] Start: 06-07-2024 ambulatory KAY DAY [facility] Start: 06-07-2024 End: 06-07-2024 ambulatory [facility] Start: 06-06-2024 End: 06-06-2024 ambulatory [facility] Start: 06-05-2024 End: 06-05-2024 ambulatory JESSA HAMMONDS [facility] Start: 05-19-2024 End: 05-19-2024 ambulatory [facility] Start: 05-18-2024 ambulatory JAS GALLEGOS [facility] Start: 05-09-2024 End: 05-09-2024 ambulatory ALEKSANDRA [facility] Start: 04-28-2024 End: 04-28-2024 ambulatory ALEKSANDRA [facility] Start: 04-28-2024 End: 04-28-2024 ambulatory WALT ARAUJO [facility] Start: 04-27-2024 ambulatory ALEKSANDRA [facility] Start: 04-07-2024 End: 04-07-2024 ambulatory ALEKSANDRA [facility] Start: 04-04-2024 ambulatory KAY DAY [facility] Start: 04-04-2024 End: 04-04-2024 [facility] Start: 03-27-2024 End: 03-27-2024 ambulatory [facility] Start: 03-22-2024 End: 03-22-2024 ambulatory [facility] Start: 03-17-2024 End: 03-17-2024 ambulatory [facility] Start: 03-16-2024 ambulatory KAYAKILA DAY [facility] Start: 03-15-2024 End: 03-15-2024 ambulatory ALEC MIRANDALy Not Available Start: 03-07-2024 ambulatory [facility] Start: 03-03-2024 End: 03-03-2024 ambulatory [facility] Start: 02-28-2024 End: 02-28-2024 ambulatory [facility] Start: 02-25-2024 End: 02-25-2024 ambulatory [facility] Start: 02-11-2024 End: 02-11-2024 [facility] Start: 02-08-2024 End: 02-08-2024 ambulatory [facility] Start: 02-04-2024 End: 02-04-2024 ambulatory [facility] Start: 02-03-2024 ambulatory JAS GALLEGOS [facility] Start: 01-14-2024 End: 01-14-2024 [facility] Start: 01-13-2024 ambulatory JAS GALLEGOS [facility] Start: 12-28-2023 End: 12-28-2023 ambulatory [facility] Start: 12-24-2023 End: 12-24-2023 ambulatory ALEKSANDRA [facility] Start: 12-23-2023 [facility] Start: 12-23-2023 End: 12-23-2023 ambulatory I [facility] Start: 12-16-2023 End: 12-16-2023 ambulatory [facility] Start: 12-13-2023 ambulatory [facility] Start: 12-13-2023 Encounter for other preprocedural examination [facility] Start: 12-09-2023 End: 12-09-2023 ambulatory [facility] Start: 12-09-2023 Encounter for other preprocedural examination [facility] Start: 12-08-2023 ambulatory [facility] Start: 12-08-2023 ambulatory [facility] Start: 12-06-2023 ambulatory [facility] Start: 12-06-2023 ambulatory JESSA UNDERWOOD [facility] Start: 11-26-2023 End: 11-26-2023 ambulatory OBI [facility] Start: 11-23-2023 End: 11-23-2023 [facility] Start: 11-17-2023 End: 11-17-2023 ambulatory ALEC PINZON Not Available Start: 11-09-2023 End: 11-10-2023 Evaluation and management of inpatient OBI [facility] Start: 11-04-2023 End: 11-04-[address] [facility] Start: 11-04-2023 End: 11-04-2023 Encounter for preprocedural cardiovascular examination [facility] Start: 10-21-2023 End: 10-21-2023 ambulatory GAVIN LORENZO [facility] Start: 10-07-2023 End: 10-07-2023 ambulatory [facility] Start: 10-06-2023 End: 10-06-2023 ambulatory ALEKSANDRA RUSSO [facility] Start: 09-24-2023 End: 10-18-2023 ambulatory ALEC PINZON [facility] Start: 09-17-2023 End: 10-18-2023 ambulatory ALEC PINZON [facility] Start: 09-16-2023 ambulatory OBI [facility] Start: 09-13-2023 End: 09-13-2023 ambulatory ALEC PINZON [...] Evaluation and management of inpatient ALEC PINZON [facility] Start: 04-24-2021 End: 05-03-2021 Evaluation and management of inpatient Kranthi Ruvalcaba MD Work Phone: [facility] CAR 2 Comment on above: Altered mental statu s, unspecified altered mental status type (Primary Dx); NSTEMI (non-ST elevated myocardial infarction) (HCC) Start: 05-08-2020 End: 05-09-2020 Patient encounter procedure ANDREIA CHIANG [facility] Start: 05-08-2020 End: 05-08-2020 Subsequent hospital visit by physician Alec [facility] Comment on above: 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) ; 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 ; Diabetes mellitus due to underlying condition with diabetic neuropathy, unspecified whether group home insulin use (HCC) ; Cerebrovascular accident (CVA) due to embolism of precerebral artery (HCC); Memory impairment Start: 05-08-2020 End: 05-08-2020 Patient encounter procedure ANDREIA CHIANG [facility] Start: 05-08-2020 End: 05-08-2020 Subsequent hospital visit by physician [facility] 500 [facility] EEG Comment on above: 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 (HCC); Memory impairment 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) ; Cerebrovascular accident (CVA) due to embolism of precerebral artery (HCC) Start: 12-12-2019 End: 12-15-2019 Patient encounter procedure SABRINA AGUIAR [facility] Start: 12-12-2019 End: 12-14-2019 Subsequent hospital visit by physician [facility] Rm [address] [facility] [address] Scan Comment on above: Cerebrovascular acci dent (CVA), unspecified mechanism (HCC) Start: 11-06-2019 End: 11-09-2019 Patient encounter procedure BARBARA PEREA [facility] Start: 11-06-2019 End: 11-08-2019 Subsequent hospital visit by physician [facility] [address] [facility] [address] Scan Comment on above: Intraparenchymal hem orrhage of brain (HCC) Start: 10-30-2019 End: 10-31-2019 Evaluation and management of inpatient Robert Stephenson MD Work Phone: [facility] Comment on above: Intraparenchymal hem orrhage of brain (HCC) (Primary Dx) Start: 04-26-2018 End: 04-27-2018 Ambulatory DEFAULT PHYSICIAN Facility:[facility] Start: 05-06-2017 End: 05-07-2017 Ambulatory DEFAULT PHYSICIAN Facility:[facility] Procedures Date Procedure Procedure Detail Performing [...] Comment on above: Performed By: #### P [facility] #### [facility] [address] [place] [address] Dr. Mani Carpio Start: 05-03-2021 Glucose blood [...] 04-28-2021 End: 04-28-2021 Cardiac catheterization Andreas Shepherd ADULT CARE PROVIDER - [employer] SALES PROFESSIONAL Work Phone: Start: 04-28-2021 Echo tthrc r-t [...] 04-27-2021 Basic metabolic pane l calcium total [place] L Blausey ADULT CARE PROVIDER - OUT[employer] SALES PROFESSIONAL Work Phone: Start: 04-27-2021 Thromboplastin time partial [...] 03-26-2027 Screening for malignant neoplasm of colon [facility] Start: 05-22-2026 Glaucoma screening Diabetes: Retinopathy Screening [facility] Start: 08-30-2025 Urine screening for protein Diabetes: Urine Protein Screening [facility] Start: 08-09-2025 Urine screening for protein Diabetes: Urine Protein Screening [facility] Start: 07-12-2025 Urine screening for protein Diabetes: Urine Protein Screening [facility] Start: 03-06-2025 End: 03-06-2025 Patient encounter procedure 03/06/2025 1:15 PM EDT Office Visit [facility] [address] [place] [id number] Alec Pinzon MD [address] [place] [id number] [facility] Start: 09-16-2024 Hemoglobin A1c measurement Diabetes: Hemoglobin A1C [facility] Start: 09-06-2024 End: 09-06-2025 Albumin, urine, random Albumin, urine, random Lab Routine Type 2 diabetes mellitus with hyperglycemia, without long-term current use of insulin ([facility]) Expected: 09/06/2024 (Approximate), Expires: 09/06/2025 [facility] Work Phone: Comment on above: Expected: 09/06/2024 (Approximate), Expi res: 09/06/2025 Start: 09-06-2024 End: 09-06-2025 Hemoglobin A1c/Hemoglobin.total in Blood Hemoglobin A1c Lab Routine Type 2 diabetes mellitus with hyperglycemia, without long-term current use of insulin ([facility]) Expected: 09/06/2024 (Approximate), Expires: 09/06/2025 [facility] Comment on above: Expected: 09/06/2024 (Approximate), Expi res: 09/06/2025 Start: 09-06-2024 End: 09-06-2024 Patient encounter procedure 09/06/2024 1:00 PM EST Office Visit [facility] [address] [place] [address] Alec Pinzon MD [address] [place] [id number] [facility] Start: 06-18-2024 Influenza vaccination Influenza Vaccine (#1) [facility] Start: 06-16-2024 Hemoglobin A1c measurement Diabetes: Hemoglobin A1C [facility] Start: 05-03-2022 Creatinine measurement Creatinine monitoring [facility] Phone: Start: 05-03-2022 Potassium monitoring Potassium monitoring [employer] Phone: Start: 04-26-2022 Lipid panel Lipid screen [employer] Phone: Start: 04-25-2022 Hemoglobin A1c measurement A1C test (Diabetic or Prediabetic) [employer] Phone: Start: 07-03-2021 End: 07-03-2021 Patient encounter procedure 07/03/2021 Office Visit Neurology Soraya Henning MD [address] [address] [phone] [facility] Start: 06-18-2021 Influenza vaccination Flu vaccine (#1) [employer] Phone: Start: 2020 End: 2020 Office Visit 2020 Office Visit Neurology Andreia Chiang MD [address] [address] [phone] [facility] Start: 06-18-2020 Influenza vaccination [facility] Start: 12-21-2019 End: 12-21-2019 Office Visit 12/21/2019 Office Visit Neurology Soraya Henning MD [address] [id number] [facility] Start: 12-05-2019 End: 12-05-2019 Patient encounter procedure 12/05/2019 Office Visit Neurology Sabrina Aguiar Sa, MD [address] [id number] [facility] Start: 11-06-2019 End: 10-31-2020 CT HEAD WO CONTRAST CT HEAD WO CONTRAST Imaging Routine Intraparenchymal hemorrhage of brain (HCC) Expected: 11/06/2019, Expires: 10/31/2020 [employer] Phone: Comment on above: Expected: 11/06/2019, Expires: Start: 10-30-2019 Annual Wellness Visit (AWV) Annual Wellness Visit (AWV) [employer] Phone: Start: 2007 Colon cancer screen colonoscopy Colon cancer screen colonoscopy [employer] Phone: Start: 2007 Screening for malignant neoplasm of colon Colon cancer screen colonoscopy [facility] [place] [facility] Start: 2007 Screening for malignant neoplasm of lung Low dose CT lung screening [facility] Phone: Start: 2007 Shingles Vaccine (1 of 2) Shingles Vaccine (1 of 2) [employer] Phone: Start: 2002 Screening for malignant neoplasm of colon Colon cancer screen colonoscopy [facility] Phone: Start: 1997 Diabetes screen Diabetes screen [facility] [email or web address] Phone: Start: 1976 DTaP/Tdap/Td vaccine (1 - Tdap) DTaP/Tdap/Td vaccine (1 - Tdap) [place], [place] Start: 1975 Diabetic microalbuminuria test Diabetic microalbuminuria test [facility] Phone: Start: 1972 HIV screen HIV screen [facility] [facility] [email or web address] Phone: Start: 1972 HIV screening HIV screen [place], [place] Start: 1968 DTaP/Tdap/Td vaccine (1 - Tdap) DTaP/Tdap/Td vaccine (1 - Tdap) [facility] Phone: Start: 1967 Diabetic foot examination Diabetic foot exam [facility] Phone: Start: 1967 Diabetic retinal exam Diabetic retinal exam [facility] [facility] [email or web address] Phone: Start: 1967 Glaucoma screening Diabetes: Retinopathy Screening [facility] Start: 1967 Lipid panel Lipid screen [place], [place] Start: 1967 Lipid screen Lipid screen [facility] [place] [facility] [email or web address] Phone: Start: 1963 Pneumococcal 0-64 years Vaccine (1 of 1 - PPSV23) Pneumococcal 0-64 years Vaccine (1 of 1 - PPSV23) [facility] Phone: Start: 1963 Pneumococcal 0-64 years Vaccine (1 of 2 - PPSV23) Pneumococcal 0-64 years Vaccine (1 of 2 - PPSV23) [employer] Phone: Start: 1963 Pneumococcal Vaccine: 65+ Years (1 of 2 - PCV) Pneumococcal Vaccine: 65+ Years (1 of 2 - PCV) [facility] Start: 1957 Creatinine measurement Creatinine monitoring [facility] [place] Start: 1957 Creatinine monitoring Creatinine monitoring [facility] Phone: Start: 1957 Hepatitis C screen Hepatitis C screen [employer] Phone: Start: 1957 Hepatitis C screening Hepatitis C screen [facility] [place] [facility] [place] Start: 1957 Potassium monitoring Potassium monitoring [facility] Phone: Start: 1957 Screening for malignant neoplasm of colon [facility] End: 05-08-2020 Activated Protein C Resistance Activated Protein C Resistance Lab Routine 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) 1 Occurrences starting 05/08/2020 until 05/08/2020 [facility] [place] [facility] [place] Comment on above: 1 Occurrences starting 05/08/2020 until 05/08/2020 Activated Protein C Resistance Activated Protein C Resistance Lab Routine 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) 05/08/2020 11:16 AM T [facility] [place] [facility] [place] End: 05-08-2020 Antithrombin III Activity Antithrombin III Activity Lab Routine 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) 1 Occurrences starting 05/08/2020 until 05/08/2020 [facility] [place] [facility] [place] Comment on above: 1 Occurrences starting 05/08/2020 until 05/08/2020 Antithrombin III Activity Antith rombin III Activity Lab Routine 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) 05/08/2020 11:16 AM EDT [facility] [place] End: 05-04-2021 aPTT in Blood by Coagulation assay APTT Lab Routine Daily for 3 Occurrences starting 05/02/2021 until 05/04/2021, 2 completed [employer] Phone: Comment on above: Daily for 3 Occurrences starting 021 until 05/04/2021, 2 completed Basic Metabolic Pane l w/ Reflex to MG Basic Metabolic Panel w/ Reflex to MG Lab Routine Daily until discontinued starting 04/26/2021, 8 completed [employer] Phone: Comment on above: Daily until discontinued starting 2020, 8 completed End: 11-01-2019 Basic Metabolic Panel w/ Reflex to MG Basic Metabolic Panel w/ Reflex to MG Lab Routine Tomorrow AM for 1 Occurrences starting 11/01/2019 until 11/01/2019 [employer] Phone: Comment on above: Tomorrow AM for 1 Occurrences starting 0 11/01/2019 until 11/01/2019 End: 05-08-2020 Beta-2 Glycoprotein Antibodies Beta-2 Glycoprotein Antibodies Lab Routine 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) 1 Occurrences starting 05/08/2020 until 05/08/2020 [employer] Comment on above: 1 Occurrences starting 05/08/2020 until 05/08/2020 Beta-2 Glycoprotein Antibodies Beta-2 Glycoprotein Antibodies Lab Routine 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) 05/08/2020 11:16 AM EDT [employer] CBC panel - Blood by Automated count CBC Lab Routine Every Other Day until discontinued starting 04/27/2021, 4 completed [employer] Phone: Comment on above: Every Other Day until discontinued start ing 04/27/2021, 4 completed End: 11-01-2019 CBC W Auto Differential panel - Blood CBC auto differential Lab Routine Tomorrow AM for 1 Occurrences starting 11/01/2019 until 11/01/2019 [employer] Phone: Comment on above: Tomorrow AM for 1 Occurrences starting 0 11/01/2019 until 11/01/2019 End: 05-08-2020 Factor 5 Leiden Factor 5 Leiden Lab Routine 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) 1 Occurrences starting 05/08/2020 until 05/08/2020 [facility], [facility] Comment on above: 1 Occurrences starting 05/08/2020 until 05/08/2020 End: 05-08-2020 Factor 7 Assay Factor 7 Assay Lab Routine 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) 1 Occurrences starting 05/08/2020 until 05/08/2020 [facility] [place] [facility] [place] Comment on above: 1 Occurrences starting 05/08/2020 until 05/08/2020 Factor 7 Assay Factor 7 Assay L ab Routine 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) 05/08/2020 11:16 AM [facility] [place] End: 05-08-2020 Factor 8 Assay Factor 8 Assay Lab Routine 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) 1 Occurrences starting 05/08/2020 until 05/08/2020 [place], [place] Comment on above: 1 Occurrences starting 05/08/2020 until 05/08/2020 Factor 8 Assay Factor 8 Assay L ab Routine 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) 05/08/2020 11[facility] [place] [place] End: 05-08-2020 FIBRINOGEN PANEL FIBRINOGEN PANEL Lab Routine 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) 1 Occurrences starting 05/08/2020 until 05/08/2020 [place], [place] Comment on above: 1 Occurrences starting 05/08/2020 until 05/08/2020 FIBRINOGEN PANEL FIBRINOGEN PANE L Lab Routine 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) 05/08/2020 11:16 AM [facility] [place] Glucose [Mass/volume ] in Serum or Plasma POCT Glucose Point of Care Testing STAT As Needed until discontinued starting 04/27/2021 [employer] Phone: Comment on above: As Needed until discontinued starting End: 04-25-2021 Hemoglobin A1c/Hemoglobin.total in Blood HEMOGLOBIN A1C Lab Routine One Time for 1 Occurrences starting 04/25/2021 until 04/25/2021 [employer] Phone: Comment on above: One Time for 1 Occurrences starting 06/2021 until 04/25/2021 Initiate Oxygen Ther apy Protocol Initiate Oxygen Therapy Protocol Respiratory Care Routine Daily until discontinued starting 10/31/2019 [employer] Phone: Comment on above: Daily until discontinued starting 2019 LAB SCANNED REPORT LAB SCANNED R EPORT Lab Ordered: 04/30/2021 [employer] Phone: Comment on above: Ordered: 04/30/2021 End: 05-08-2020 Lipoprotein a [Mass/Vol] Lipoprotein A Lab Routine 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) 1 Occurrences starting 05/08/2020 until 05/08/2020 [facility], [employer] Comment on above: 1 Occurrences starting 05/08/2020 until 05/08/2020 Lipoprotein a [Mass/Vol] Lipopro tein A Lab Routine 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) 05/08/2020 11:16 AM EDT [facility] [place], [place] Lupus Anticoagulant Lupus Antico agulant Lab Routine 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) 05/08/2020 11:16 AM EDT [facility] [place], [place] Magnesium [Mass/volu me] in Serum or Plasma MAGNESIUM Lab Add-On Daily until discontinued starting 05/02/2021, 2 completed [employer] Phone: Comment on above: Daily until discontinued starting 2020, 2 completed End: 05-08-2020 MTHFR mutation MTHFR mutation Lab Routine 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) 1 Occurrences starting 05/08/2020 until 05/08/2020 [place], [place] Comment on above: 1 Occurrences starting 05/08/2020 until 05/08/2020 Oxygen therapy [[facility]] [employer] Phone: Comment on above: Daily until discontinued starting 2020 Daily until disconti nued starting 05/02/2021 End: 05-08-2020 Phosphatidylserine Antibodies Phosphatidylserine Antibodies Lab Routine 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) 1 Occurrences starting 05/08/2020 until 05/08/2020 [facility] [place] Comment on above: 1 Occurrences starting 05/08/2020 until 05/08/2020 Phosphatidylserine Antibodies Phosphatidylserine Antibodies Lab Routine 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) 05/08/2020 11:16 AM [facility] [place] End: 04-24-2021 POC Blood Gas and Chemistry POC Blood Gas and Chemistry Point of Care Testing STAT One Time for 1 Occurrences starting 04/24/2021 until 04/24/2021 [employer] Phone: Comment on above: One Time for 1 Occurrences starting 05/2021 until 04/24/2021 Potassium w/ Reflex to Magnesium Potassium w/ Reflex to Magnesium Lab Routine As Needed until discontinued starting 04/28/2021 [employer] Phone: Comment on above: As Needed until discontinued starting End: 05-08-2020 Protein C Antigen, Total Protein C Antigen, Total Lab Routine 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) 1 Occurrences starting 05/08/2020 until 05/08/2020 [place], [place] Comment on above: 1 Occurrences starting 05/08/2020 until 05/08/2020 Protein C Antigen, Total Protein C Antigen, Total Lab Routine 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) 05/08/2020 11:16 AM [facility] [place] End: 05-08-2020 Protein S Antigen, Free Protein S Antigen, Free Lab Routine 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) 1 Occurrences starting 05/08/2020 until 05/08/2020 [place], [place] Comment on above: 1 Occurrences starting 05/08/2020 until 05/08/2020 Protein S Antigen, Free Protein S Antigen, Free Lab Routine 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) 05/08/2020 11:16 AM [facility] [place] [place] End: 05-08-2020 Prothrombin Gene Mutation Prothrombin Gene Mutation Lab Routine 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) 1 Occurrences starting 05/08/2020 until 05/08/2020 [place], [place] Comment on above: 1 Occurrences starting 05/08/2020 until 05/08/2020 Immunizations Immunization Date Immunization Notes Care Provider Fa [facility] 11-10-2023 influenza virus vaccine, unspecified formulation Alec Pinzon MD Work Phone: [facility] 10-31-2019 influenza quadrivale nt split vaccine (FLUZONE;FLUARIX;FLULAV AL;AFLURIA) injection 0.5 mL Robert Stephenson MD Work Phone: [facility] Phone: 10-31-2019 influenza, injectabl e, quadrivalent, preservative free Robert Stephenson MD Work Phone: [facility] Work Phone: Payers Date Payer Category Payer Medicare [employer] MEDICARE UHC DUAL COMPLETE [id number] 2022-Present [address] [place] [address] [id number] 2022 Medicare (Managed Care) UNITED HEALTHCARE MEDICARE [id number] 2021 Unknown [id number] 2019 [place] xxxxxxxxxxxx 2019-Present [phone] [address] [place] [address] xxxxxxxxxxxx [id number] 2019 Medicaid MEDICAID [facility] DEPT OF JOB [id number] 2019-Present [phone] [address] [place] [address] [id number] 2019 Medicare MEDICARE MEDICAR E PART A AND B xxxxxxxxxxx 2019-Present [phone] [address] [address] [place] [address] xxxxxxxxxxx [id number] 2019 Medicare [id number] 2019 Medicare MEDICARE MEDICAR E PART A AND B [id number] 2019-Present [phone] [place] [address] [id number] 2017 Unknown [id number] 1959 Medicaid [id number] 1955 Unknown [id number] 2.16.840.1.038281.3.579.2. 176 1957 Unknown [id number] 2.16.840.1.852614.3.579.2. 176 1957 Unknown [id number] 2.16.840.1.838395.3.579.2. 176 1957 Unknown [id number] 2.16.840.1.296474.3.579.2. 176 1957 Unknown [id number] 2.16.840.1.909348.3.579.2. 176 1957 Unknown [id number] 2.16.840.1.869648.3.579.2. 175 1957 Unknown [id number] 2.16.840.1.784570.3.579.2. 593 1957 Unknown [id number] 2.16.840.1.167753.3.579.2. 593 1957 Unknown [id number] 2.16.840.1.210359.3.579.2. 593 1957 Unknown [id number] 2.16.840.1.530631.3.579.2. 593 1957 Unknown [id number] 2.16.840.1.836258.3.579.2. 593 1957 Unknown [id number] 2.16.840.1.628916.3.579.2. 593 1957 Unknown [id number] 2.16.840.1.132685.3.579.2. 1286 1957 Unknown [id number] 2.16.840.1.482179.3.579.2. 1286 1957 Unknown [id number] 2.16.840.1.225709.3.579.2. 1259 1957 Unknown [id number] 2.16.840.1.527107.3.579.2. 1259 1957 Unknown [id number] 2.16.840.1.171159.3.579.2. 1259 1957 Unknown [id number] 2.16.840.1.094422.3.579.2. 1259 Unknown Social History Date Type Detail Facility Start: 10-18-1974 End: 11-17-2023 Tobacco smoking status ILIS Current every day smoker [facility] Start: 10-18-1974 History of tobacco use Cigarette Smo ker [employer] Phone: Start: 11-07-2019 End: 03-14-2024 Cigarettes smoked current (pack per day) - Reported [employer] Phone: Start: 1955 Sex Assigned At Not on file [employer] Phone: Start: 04-25-2020 End: 11-17-2023 Tobacco use and exposure Never used [facility] [place] Start: 08-14-2020 Alcohol intake Ex-drinker (finding) [employer] Phone: Exposure to SARS-CoV -2 (event) Not sure [facility] Start: 03-14-2024 End: 09-06-2024 Social connection and isolation panel [facility] Attends [employer] Not on file [facility] Do you belong to any clubs or organizations such as sikhism groups, unions, fraternal or athletic groups, or [...] Equipment Origin al Text Equipment Identifier Dates [id number] Start: 07-19-2023 Clinical Notes 10-31-2019 to 09-06-2024 [...] polyneuropathy, without long-term current use of insulin ([facility]/HCC) Symptoms tolerable with medication and continue. Associated [...] ADLs to patient. documented in this encounter [facility] 07-10-2024 Note [facility] 07-10-2024 Note [facility] 06-30-2024 Note [facility] 06-30-2024 Note [facility] 06-30-2024 Note [facility] 06-30-2024 Note [facility] 06-29-2024 Note Fluids for rising cr eat and eval his thyroid dysfunction at visit with provider .thanks Aleksandra Russo MD [facility] 06-28-2024 Note Relevant Hx: Course: 03/16/24 HgA1C 8.9 Daily Update: Today's Plan: Continue to follow with PCP for management [facility] 06-28-2024 Note [facility] 06-28-2024 Note Port [address] by Dr Kary cespedes 12/16/23 at [facility] 06-28-2024 Note [facility] 06-28-2024 Note [facility] 06-28-2024 Note [facility] 06-28-2024 Note [facility] 06-28-2024 Note [facility] 06-28-2024 Note [facility] 06-28-2024 Note [facility] 06-09-2024 Note [facility] 06-07-2024 Note [facility] 06-07-2024 Note Patient has an upcom ing provider visit to address upcoming labs Aleksandra Russo MD [facility] 06-07-2024 Note [facility] 05-19-2024 Note Please let patient k now and follow his tsh and others. Thanks Aleksandra Russo MD [facility] 05-19-2024 Note [facility] 05-19-2024 Note [facility] 05-18-2024 Note With hypercalcemia, please work up and also will get MRI as rec by ortho. Aleksandra Russo MD [facility] 05-18-2024 Note Jessa, Please ch erica with patient at visit on the mri back that ortho were recommending and if not ordered by them would please need ordered Thanks Aleksandra Russo MD [facility] 05-09-2024 Note [facility] 04-28-2024 Note [facility] 04-28-2024 Note [facility] 04-28-2024 Note [facility] 04-04-2024 Note Please also refer to ortho for eval of the compression fracture . Just give him a head's up too pls Thanks Aleksandra Russo MD [facility] 04-04-2024 Note [facility] 03-27-2024 Note Keep planned follow up and no contrast due to kidney dysfunction rcc adjuvant Aleksandra Russo MD [facility] 03-22-2024 Note [facility] 03-07-2024 Note [facility] 03-03-2024 Note [facility] 02-25-2024 Note Likely creat closer to his new baseline after nephrectomy. Will also keep our urology colleagues in the loop and patient is going to be seeing nephrology next month Aleksandra Russo MD [facility] 02-11-2024 Note [facility] 02-08-2024 Note [facility] 01-14-2024 Note [facility] 12-28-2023 Note [facility] 12-23-2023 Note Likely new baseline. O to start as discussed C1D1 immunotherapy 12/24/2023 Please give him an appointment with nephrology thank Aleksandra Russo MD [facility] 12-23-2023 Note [facility] 12-13-2023 Note [facility] 12-13-2023 Note Thanks for setting u p with nephrology and Urology Will delay planned start of adjuvant IO by a week while waiting on optimization of his kidney function can you please add spep /upep/IFIX and Ufix Thanks so much Aleksandra Russo MD [facility] 12-09-2023 Note Pt was given 1 liter of 0.9% NS PIV over 1hr 45 mins then a cmp was drawn off of pt's #22 IV in Rt fa. [facility] 12-08-2023 Note [facility] 12-08-2023 Note [facility] 12-06-2023 Note [facility] 11-26-2023 Note [facility] 11-23-2023 Note [facility] 11-10-2023 Note [facility] 11-10-2023 Note [facility] 11-09-2023 Note Peripheral IV Date/Time: 11/09/2023 8:55 AM Inserted by: Julia Albrecht MD Placement Needle size: 14 G Laterality: right Location: forearm Site prep: alcohol Technique: anatomical landmarks Attempts: 2 [facility] 11-09-2023 Note [facility] 11-09-2023 Note [facility] 11-04-2023 Note [facility] 10-27-2023 Note [facility] 10-06-2023 Note [facility] 09-16-2023 Note [facility] 09-26-2022 Note Indication: Abdomina l wall abscess. [...] authenticated by: MELODIE DUNLAP Date: 2022-09-26 14:17 [facility] 05-03-2021 History of Present illness Narrative Images from the original note were not included. [employer] Progress Note Date: 05/02/2021 Patient name: Yoel [...] vessel has 40% stenosis OM has proximal LEAD PERSON and supplied by [employer] on Mid [...] CAD s/p stents to RCA and circumflex, LEAD PERSON obtuse branch at [facility] years ago 3. Thoracic aortic aneurysm [...] Active Problem List: Acute cerebrovascular accident (CVA) ([facility]) Intraparenchymal hemorrhage of brain ([facility]) Acute ischemic stroke ([facility]) Memory impairment NSTEMI (non-ST elevated myocardial infarction) ([facility]) Altered mental status DM (diabetes mellitus), type 2 ([facility]) Discitis of lumbosacral region Hypokalemia Hypomagnesemia History [...] sign off. Follow up in 2 weeks [employer] [phone] Images from the original note were not [...] assess Fluid Accumulation: No significant fluid accumulation Dowel Sander Operator Strength: Not Performed Estimated Daily Nutrient Needs: Energy (kcal): 1.2-1.3 ~> 7668-4781 kcals/d; Weight Used for Energy Requirements: Current Protein (g): 1.2-1.3 gm/kg ~> 97-105 gms/d; Weight Used for Protein Requirements: [place] Fluid (ml/day): 2700 mLs/d OR per MD discretion; Method Used for Fluid Requirements: (NCM) Nutrition Related Findings: BM 04/30; glucose 163; meds reviewed Wounds: None Current Nutrition Therapies: Diet NPO Anthropometric Measures: Height: 6' (182.9 cm) Current Body Weight: 223 lb (101.2 kg) (stated) [place] Body Weight: 178 lbs; % [place] Body Weight 125.3 % BMI: 30.2 BMI [...] Discharge Planning: Too soon to determine Contact: [phone] Images from the original note were not included. [employer] Tow Bar Driver Progress Note Date: 05/02/2021 Patient name: Yoel [...] CAD s/p stents to RCA and circumflex, LEAD PERSON obtuse branch at [facility] years ago 3. Thoracic aortic aneurysm [...] Neurology approved for patient to go on entry writer DAPT. 6. Plan for PCI of LCx today. Patient has been NPO since midnight. I have discussed risks (including but not limited to vascular injury, infection, hematoma, contrast induced kidney dysfunction, CVA and ME) with both patient and his . The benefits and alternatives discussed in detail. All questions answered. Patient agrees to proceed. [employer] Tow Bar Driver [phone] Images from the original note were not included. [facility] Internal Medicine Teaching Residency Program Inpatient Daily Progress Note Patient: Yoel Van Date of : 1955 Acct: [id number] Room: Admit date: 04/24/2021 Today's date: 05/02/21 [...] GI ppx: Protonix PT/OT/SW- Onboard Discharge Planning: manager proposal consulted, will follow up Gee Parnell MD Internal Medicine Resident, PGY-1 [facility]; [place], [place] 05/02/2021, 7:40 AM Attending Physician Statement [...] from the original note were not included. [facility] Internal Medicine Teaching Residency Program Inpatient Daily Progress Note Patient: Yoel Van Date of : 1955 Acct: [id number] Room: Admit date: 04/24/2021 Today's date: 05/01/21 [...] GI ppx: Protonix PT/OT/SW- Onboard Discharge Planning: manager proposal consulted, will follow up Gee Parnell MD Internal Medicine Resident, PGY-1 [facility]; [place], [place] 05/01/2021, 2:58 PM Attending Physician Statement [...] resumed Discharge planning initiated Physical Therapy Facility/Department: [facility] CAR 2 Initial Assessment NAME: [...] Ambulation Assistance: Independent Transfer Assistance: Independent Active Director Of Audiology: No Patient's Director Of Audiology Info: does all driving 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 Nellie Tow Bar Driver Progress Note Date: 05/01/2021 Patient name: Yoel [...] CAD s/p stents to RCA and circumflex, LEAD PERSON obtuse branch at [facility] years ago 3. Thoracic aortic aneurysm [...] neurology approval for patient to go on group home DAPT prior to proceeding with high risk PCI. 6. If okay will plan for PCI of LCx tomorrow per Dr. Norton review of films and plan for staged approach. Patient and his were updated on a possible staged approach and they are agreeable with the plan. 7. Will make NPO after midnight. Albert Lea Tow Bar Driver [phone] Images from the original note were not [...] INR 1.0 04/24/2021 LABA1C 7.5 (H) 04/25/2021 [id number] 04/25/2021 Diagnostic data reviewed: CT HEAD [...] to ensure the accuracy of this automated compress trucker, some errors in compress trucker may have occurred. Associated attestation - Elisa Larsen MD - 05/01/2021 7:44 PM EDT Attending Physician Statement I have discussed the case of Yoel Van including pertinent history and exam findings with the resident/ BID MANAGER. I have seen and examined the patient and the burnett elements of the encounter have been performed by me. I agree with the assessment, plan and orders as documented by the resident or BID MANAGER with changes made to the note. Briefly, [...] you. Elisa Larsen MD 05/01/2021 7:41 PM [facility] Neurology IN-PATIENT SERVICE [facility] HISTORY AND PHYSICAL EXAMINATION Date: 04/30/2021 Patient name: Yoel Van Date of admission: 04/24/2021 9:50 PM Account: [id number] Date of : 1955 PCP: Alec Pinzon MD Room: [facility]5/1015- Code Status: Full Code Chief Complaint: Chief [...] Right achilles: 2+ Left achilles: 2+ Right baked goods stock clerk: 2+ Left baked goods stock clerk: 2+ Investigations: Laboratory Testing: Recent Results (from [...] [E83.42] 04/27/2021 NSTEMI (non-ST elevated myocardial infarction) ([facility]) [I21.4] 04/25/2021 Altered mental status [R41.82] Acute ischemic stroke ([facility]) [I63.9] 65 y.o. male who presents with [...] history and exam findings with the resident/ BID MANAGER. I have seen and examined the patient and the burnett elements of the encounter have been performed by me. I agree with the assessment, plan and orders as documented by the resident or BID MANAGER with changes made to the note. Briefly, [...] from the original note were not included. [facility] Internal Medicine Teaching Residency Program Inpatient Daily Progress Note Patient: Yoel Van Date of : 1955 Acct: [id number] Room: 1015/1015-01 Admit date: 04/24/2021 Today's date: [...] GI ppx: Protonix PT/OT/SW- Onboard Discharge Planning: manager proposal consulted, will follow up Gee Parnell MD Internal Medicine Resident, PGY-1 [facility]; [place], [place] 04/30/2021, 7:23 AM Attending Physician Statement [...] stroke (HCC) NSTEMI (non-ST elevated myocardial infarction) ([facility]) Altered mental status DM (diabetes mellitus), type 2 (HCC) Discitis of lumbosacral region Hypokalemia Hypomagnesemia History of GI bleed Anticoagulated on heparin CAD, multiple vessel Resolved Problems: * No resolved hospital problems. * Plan for staged PCI rather than CABG for multivessel CAD Images from the original note were not included. Nellie Tow Bar Driver Progress Note Date: 04/30/2021 Patient name: Yoel Van Date of admission: 04/24/2021 9:50 PM Date of : 1955 PCP: Alec Pinzon MD Reason for Admission: NSTEMI (non-ST elevated myocardial infarction) ([facility]) [I21.4] Subjective: Postop day 2 of cardiac [...] CAD s/p stents to RCA and circumflex, LEAD PERSON obtuse branch at [facility] years ago 3. Thoracic aortic aneurysm [...] With changes made to the note. . Albert Lea Tow Bar Driver [phone] Images from the original note were not [...] the original note were not included. Nellie Tow Bar Driver Progress Note Date: 04/29/2021 Patient name: Yoel [...] CAD s/p stents to RCA and circumflex, LEAD PERSON obtuse branch at [facility] years ago Thoracic aortic aneurysm about [...] Cardiovascular Fellow PGY-4 04/29/2021, 9:28 AM Attending Power Hair Clipper Addendum: I have reviewed and performed the history, physical, subjective, objective, assessment, and plan with the student/resident/fellow/SNOWMOBILE MECHANIC and agree with the note. I performed the history and physical personally. I have made changes to the note above as needed. Await CTS recs Stop plavix Start ASA if okay with all Continue heparin drip Thank you for allowing me to participate in the care of this patient, please do not hesitate to call if you have any questions. Marcello Cole DO, FACPatirck, JOANNA RUIZ Albert Lea Tow Bar Driver [facility] Images from the original note were not included. [facility] Occupational Therapy Not Seen Note DATE: 04/29/2021 NAME: Yoel Van : 1955 Patient not seen this date for Occupational Therapy due to: Other: await cardiothoracic surgery consult Next Scheduled Treatment: check back 04/30/2021 [facility] Neurology IN-PATIENT SERVICE [facility] HISTORY AND PHYSICAL EXAMINATION Date: 04/29/2021 Patient name: Yoel Van Date of admission: 04/24/2021 9:50 PM Account: [id number] Date of : 1955 PCP: Alec Pinzon MD Room: [address] [place], [place] [address]- Code Status: Full Code Chief Complaint: Chief [...] Right achilles: 2+ Left achilles: 2+ Right baked goods stock clerk: 2+ Left baked goods stock clerk: 2+ Investigations: Laboratory Testing: Recent Results (from [...] history and exam findings with the resident/ BID MANAGER. I have seen and examined the patient and the burnett elements of the encounter have been performed by me. I agree with the assessment, plan and orders as documented by the resident or BID MANAGER with changes made to the note. Briefly, [...] from the original note were not included. [facility] Internal Medicine Teaching Residency Program Inpatient Daily Progress Note Patient: Yoel Van Date of : 1955 Acct: [id number] Room: [address] [place] [address]- Admit date: 04/24/2021 Today's date: 04/29/21 Number [...] GI ppx: Protonix PT/OT/SW- Onboard Discharge Planning: manager proposal consulted, will follow up Gee Parnell MD Internal Medicine Resident, PGY-1 [facility]; [place], [place] 04/29/2021, 7:58 AM Patient seen and [...] imaging in the future Infection Control Recommendations: [place] precautions Discharge Planning: Patient will need Midline [...] Not Detected 04/25/2021 No results for input(s): [facility] in the last 72 hours. Imaging Studies: No new imaging Cultures: Culture, Blood 1 [[id number]] Collected: 04/25/212032 Order Status: Completed Specimen: Blood Updated: 04/28/21918 Specimen Description .BLOOD Special Requests R ARM 1 ML Culture NO GROWTH 3 DAYS Culture, Blood 1 [[id number]] Collected: 04/25/212032 Order Status: Completed Specimen: Blood Updated: 04/28/21918 Specimen Description .BLOOD Special Requests L ARM 2 ML Culture NO GROWTH 3 DAYS COVID-19, Rapid [[id number]] Collected: 04/25/21 004 Order Status: Completed Specimen: [...] management decisions. Fact sheet for Healthcare Providers: https://www.fda.gov/media/735945/d ownload Fact sheet for Patients: https://www.fda.gov/media/613788/d ownload Methodology: Isothermal Nucleic Acid Amplification Medications: [...] [facility] Zandra Pink MD Where's Up messaging OFFICE: Thank you for allowing us [...] original note were not included. Occupational Therapy [facility] Occupational Therapy Not Seen Note DATE: 04/28/2021 NAME: Yoel Van : 1955 Patient not seen this date for Occupational Therapy due to: Surgery/Procedure: cardiac cath Next Scheduled Treatment: 04/29 Echo completed in the echo lab Images from the original note were not included. [employer] Pre-Procedure Conscious Sedation Data Pre Procedure Conscious Sedation Data: ASA Class: [] I [x] II [] III [] IV Mallampati Class: [] I [x] II [] III [] IV Jing Levy MD Fellow Cardiovascular Disease [facility] Images from the original note were not included. [employer] Progress Note Date: 04/28/2021 Patient name: Yoel Van Date of admission: 04/24/2021 9:50 PM Date of : 1955 PCP: Alec Pinzon MD Reason for Admission: NSTEMI (non-ST elevated myocardial infarction) ([facility]) [I21.4] Subjective: Clinical Changes /Abnormalities: Patient seen [...] chloride heparin (PORCINE) Infusion 15.78 Units/kg/hr (04/28/21 8278) CBC: Recent Labs 04/25/21 1329 04/27/21 0311 [...] CAD s/p stents to RCA and circumflex, LEAD PERSON obtuse branch at [facility] man years ago 3. Thoracic aortic [...] (CVA) due to embolism of precerebral artery ([facility]) Memory impairment NSTEMI (non-ST elevated myocardial infarction) ([facility]) Altered mental status Plan of Treatment: 1. NSTEMI with elevated troponin. [phone] Plan for cardiac cath today per Dr Dumont. I have discussed risks (including but not limited to vascular injury, infection, hematoma, contrast induced kidney dysfunction, CVA and ME), benefits, alternatives in detail. All questions answered. Patient agrees to proceed. wheelabrator operator update. 2. Awaiting ECHO with Bubble study. [...] of care managed per Primary Team. [employer] [phone] Report given to Radha [facility] Neurology IN-PATIENT SERVICE [facility] HISTORY AND PHYSICAL EXAMINATION Date: 04/28/2021 Patient name: Yoel Van Date of admission: 04/24/2021 9:50 PM Account: [id number] Date of : 1955 PCP: Alec Pinzon MD Room: [address] [place] [address] Code Status: Full Code Chief Complaint: Chief [...] Right achilles: 2+ Left achilles: 2+ Right baked goods stock clerk: 2+ Left baked goods stock clerk: 2+ Investigations: Laboratory Testing: Recent Results (from [...] [E83.42] 04/27/2021 NSTEMI (non-ST elevated myocardial infarction) ([facility]) [I21.4] 04/25/2021 Altered mental status [R41.82] Stroke ([facility]) [I63.9] 65 y.o. male who presents with [...] history and exam findings with the resident/ BID MANAGER. I have seen and examined the patient and the burnett elements of the encounter have been performed by me. I agree with the assessment, plan and orders as documented by the resident or BID MANAGER with changes made to the note. Briefly, [...] from the original note were not included. [facility] Internal Medicine Teaching Residency Program Inpatient Daily Progress Note Patient: Yoel Van Date of : 1955 Acct: [id number] Room: [facility]- Admit date: 04/24/2021 Today's date: 04/28/21 Number [...] chloride heparin (PORCINE) Infusion 15.78 Units/kg/hr (04/28/21 2829) PRN Medicationspotassium chloride, 40 mEq, PRN Or [...] GI ppx: Protonix PT/OT/SW- Onboard Discharge Planning: manager proposal consulted, will follow up Gee Parnell MD Internal Medicine Resident, PGY-1 [facility]; [place], [place] 04/28/2021, 11:27 AM Attending Physician Statement [...] from the original note were not included. [facility] Internal Medicine Teaching Residency Program Inpatient Daily Progress Note Patient: Yoel Van Date of : 1955 Acct: [id number] Room: 0542/0542-01 Admit date: 04/24/2021 Today's date: [...] GI ppx: Protonix PT/OT/SW- Onboard Discharge Planning: manager proposal consulted, will follow up Gee Dewey MD Internal Medicine Resident, PGY-2 [facility]; [place], [place] 04/27/2021, 1:38 PM Attending Physician Statement [...] deficit. The risk of intracranial hemorrhage versus ME was discussed with the patient in regards [...] Right achilles: 2+ Left achilles: 2+ Right baked goods stock clerk: 2+ Left baked goods stock clerk: 2+ Lab Results: CBC: Recent Labs 04/24/21222004/25/21 [...] INR 1.0 04/24/2021 LABA1C 7.5 (H) 04/25/2021 [id number] 04/25/2021 No results found for: PHENYTOIN, [...] to follow Fanta Levy MD Attending Neurologist [facility] Images from the original note were not included. [employer] Progress Note Date: 04/27/2021 Patient name: Yoel Van Date of admission: 04/24/2021 9:50 PM Date of : 1955 PCP: Alec Pinzon MD Reason for Admission: NSTEMI (non-ST elevated myocardial infarction) ([facility]) [I21.4] Subjective: Clinical Changes /Abnormalities: Patient seen [...] CAD s/p stents to RCA and circumflex, LEAD PERSON obtuse branch at [facility] man years ago 3. Thoracic aortic [...] Memory impairment NSTEMI (non-ST elevated myocardial infarction) ([facility]) Altered mental status Plan of Treatment: 1. NSTEMI with elevated troponin. [phone] Plan for cardiac cath on Wednesday per [...] neurology will discuss with cardiology tomorrow. [employer] [phone] Paged Neurology at 22:19 regarding heparin drip and whether or not patient is appropriate for heparin boluses or just adjust medication through infusion. Messaged with Leonardo Jeter MD who deferred to Primary team. I then messaged the on-call Internal Medicine Trailer Steerer who deferred to Cardiology. I sent Cardiology [...] use, normal respirations Neuro: Difficult coordination with [id number]-cj-bkhy. No arm drift. BUE and BLE with [...] patients neurologic status Jair Jaeger DO, PGY-5 [facility] Orthopedic Surgery 1:33 PM 04/26/21 Associated attestation [...] intact to light touch Does well with nvqrti-mq-[id number] testing. Gait testing deferred. Imaging: I personally [...] MRI at L5-S1 is felt to be claim representative of infection I would recommend an IR biopsy for culture, though he does not seem to be symptomatic and his WBC count is normal. Physician Progress Note PATIENT: YOEL VAN CSN #: [id number] : 1955 ADMIT DATE: 04/24/2021 9:50 PM [...] signed by: GEE PARNELL 04/26/2021 8:22 AM [facility] Neurology IN-PATIENT SERVICE [facility] HISTORY AND PHYSICAL EXAMINATION Date: 04/26/2021 Patient name: Yoel Van Date of admission: 04/24/2021 9:50 PM Account: [id number] Date of : 1955 PCP: Alec Pinzon [...] Right achilles: 2+ Left achilles: 2+ Right baked goods stock clerk: 2+ Left baked goods stock clerk: 2+ Investigations: Laboratory Testing: Recent Results (from [...] NEGATIVE Ketones, Urine TRACE (A) NEGATIVE Specific [place], UA 1.012 1.005 - 1.030 Urine Hgb [...] ms QTc Calculation (Bazett) 462 ms P [place] 48 degrees R [place] -20 degrees T [place] 89 degrees Assessment : Primary Problem <principal [...] to follow Fanta Levy MD Attending Neurologist [facility] Neuroscience [place] Images from the original note were not included. [facility] Internal Medicine Teaching Residency Program Inpatient Daily Progress Note Patient: Yoel Van Date of : 1955 Acct: [id number] Room: 42/0542-01 Admit date: 04/24/2021 Today's date: [...] gtt GI ppx: Protonix PT/OT/SW Discharge Planning: manager proposal consulted, will follow up Gee Parnell MD Internal Medicine Resident, PGY-1 [facility]; [place], [place] 04/26/2021, 3:10 AM Attending Physician Statement [...] noticed. MRI pending. It was reported to personal lines underwriter that MRI's were attempted earlier in the [...] at this time. documented in this encounter [facility] [employer] Work Phone: 05-02-2021 Hospital Discharge instructions Ana [...] *hipaa, Jessica Mobile Relation: Spouse Preferred language: Welsh Clinical Tech needed? No Past Surgical History: Past Surgical History: Procedure Laterality Date CARDIAC SURGERY ROTATOR CUFF REPAIR ROTATOR CUFF REPAIR Immunization History: Immunization History Administered Date(s) Administered Influenza, Quadv, IM, PF (6 mo and older Fluzone, Flulaval, Fluarix, and 3 yrs and older Afluria) 10/31/2019 Active Problems: Patient Active Problem List Diagnosis Code Acute cerebrovascular accident (CVA) ([facility]) I63.9 Intraparenchymal hemorrhage of brain ([facility]) I61.9 Acute ischemic stroke ([facility]) I63.9 Memory impairment R41.3 NSTEMI (non-ST elevated myocardial infarction) ([facility]) I21.4 Altered mental status R41.82 DM (diabetes mellitus), type 2 ([facility]) E11.9 Discitis of lumbosacral region M46.47 Hypokalemia [...] (101.2 kg) Mental Status: {IP PT MENTAL STATUS:37010} IV Access: { SYDNEE IV ACCESS:617281291} Nursing Mobility/ADLs: Walking {P DME ADLs:837606852} Transfer {CHP DME ADLs:239725341} Bathing {CHP DME ADLs:726153932} Dressing {CHP DME ADLs:881186554} Toileting {CHP DME ADLs:050055538} Feeding {P DME ADLs:199488368} Contour Path Tape Mill Operator {P DME ADLs:770571807} Med Delivery { SYDNEE MED Delivery:052935612} Wound Care Documentation and Therapy: Elimination: Continence: Bowel: {YES / NO:} Bladder: {YES / NO:} Urinary Catheter: {Urinary Catheter:000452194} Colostomy/Ileostomy/Ileal Conduit: {YES / NO:} Date of Last BM: Intake/Output Summary (Last 24 hours) at 05/02/2021 1719 Last data filed at 05/02/2021 0736 Gross per 24 hour Intake Output 1600 ml Net -1600 ml I/O last 3 completed shifts: In: 44.4 [I.V.:44.4] Out: 2390 [Urine:2390] Safety Concerns: { SYDNEE Safety Concerns:986448592} Impairments/Disabilities: { SYDNEE Impairments/Disabilities:746787090 } Nutrition Therapy: Current Nutrition Therapy: { SYDNEE Diet List:704125727} Routes of Feeding: {[employer] Other Feedings:185310487} Liquids: {[facility] liquid thickness:59979} Daily Fluid Restriction: {[facility] DME Yes amt example:806352990} Last Modified Barium Swallow with Video (Video Swallowing Test): {Done Not Done Date:} Treatments at the Time of Hospital Discharge: Respiratory Treatments: Oxygen Therapy: {Therapy; copd oxygen:97482} Ventilator: { CC Vent List:730007258} Rehab Therapies: Physical Therapy and Occupational Therapy Weight Bearing Status/Restrictions: {[facility] Weight Bearin} Other Medical Equipment (for information only, NOT a DME order): {EQUIPMENT:021394803} Other Treatments: half-way eval and treat Patient's personal belongings (please select all that are sent with patient): {[employer] Belongings:517215695} RN SIGNATURE: {Esignature:931607391} CASE MANAGEMENT/SOCIAL WORK SECTION Inpatient Status Date:04-25-2021 Readmission Risk Assessment Score: Readmission Risk Risk of Unplanned Readmission: 17 Discharging to Facility/ Agency Name: Address: Phone: Fax: Dialysis Facility (if applicable) Name: Address: Dialysis Schedule: Phone: Fax: Manager Of Learning/Glass Grinder signature: {Esignature:011831061} PHYSICIAN SECTION Prognosis: Good Condition at Discharge: Stable Rehab Potential (if transferring to Rehab): {Prognosis:7812672279} Recommended Labs or Other Treatments After Discharge: [...] H&P: No change in H&P PHYSICIAN SIGNATURE: {Esignature:070583408} Ana Chery MD - 05/03/2021 1. Follow up cardiology in 2 weeks 2. Take medications as prescribed The following attachments cannot be sent through Care Everywhere.PCI (Percutaneous Coronary Intervention): Post-op (Welsh)documented in this encounter [employer] Phone: 10-31-2019 History of Present illness Narrative Physical Therapy Facility/Department: [address] Initial Assessment NAME: Yoel Van : 1955 Date of Service: 10/31/2019 [employer] LUE/LLE weakness, LKW 10/27/2019 HPI The patient is a 64 y.o. male who presents as a transfer from [place] for concern for hemorrhage in the basal [...] using RW, supervises) Transfer Assistance: Independent Active Director Of Audiology: No Patient's Director Of Audiology Info: Pt hasn't driven since CVA in August, perfoms all Mode of Transportation: Family Occupation: On disability Leisure & Hobbies: Dog, fishing Additional Comments: Spouse is home all the time and is able to assist him as needed. Cognition Cognition Overall Cognitive Status: [facility] Objective Observation/Palpation Posture: Good AROM RLE [...] Comment: Grossly 4+/5 Strength LUE Strength LUE: [facility] Comment: Grossly 4-/5 Tone RLE RLE Tone: Normotonic Tone LLE LLE Tone: Normotonic Motor Control Gross Motor?: WF Coordination Rapid Alternating Movements: Normal Finger to Nose: Dysmetric(Dysmetria noted when using left hand; right hand normal) Sensation Overall Sensation Status: [facility] Bed mobility Supine to Sit: Modified [...] using RW, supervises) Transfer Assistance: Independent Active Director Of Audiology: No Patient's Director Of Audiology Info: Pt hasn't driven since CVA in [...] to sit: Supervision Cognition Overall Cognitive Status: [facility] Cognition Comment: Slow to respond at times, likely pt's baseline, answering for pt often Sensation Overall Sensation Status: [facility] LUE AROM (degrees) LUE AROM : Exceptions L Shoulder Flexion 0-180: Limited to 90 degrees, baseline rotator cuff issues L Elbow Flexion 0-145: WF's L Elbow Extension 145-0: WF's RUE AROM (degrees) RUE AROM : WFL LUE Strength Gross LUE Strength: Exceptions to [facility] L Shoulder Flex: 3-/5(At baseline) L Elbow Flex: 4+/5 L Elbow Ext: 4/5(Weaker as a result of CVA per pt) L Hand General: 4+/5 RUE Strength Gross RUE Strength: WF R Hand General: 5/5 AM-[facility] Inpatient Daily Activity Raw Score: 20 (10/31/19 [...] Elba Simmons OTR/L documented in this encounter [employer] Phone: 10-31-2019 Hospital Discharge instructions Josselin Barbara, DO - 10/31/2019 Please do not take your aspirin or Plavix until after being seen in follow-up with Dr. Aguiar of neurology on 11/07/2019. Please [address] your CT head done next 10/30/2019. documented in this encounter [employer] Phone: Evaluation note Diagnosis Altered mental status, [...] Coronary atherosclerosis of unspecified type of vessel, mentasta or graft S/P PTCA/FLORESITA to mid LCX (Dr Bojorquez) Postsurgical percutaneous transluminal coronary angioplasty status documented in this encounter [employer] Phone: evaluation note* Diagnosis Intraparenchymal hemorrhage of brain (HCC)- Primary Intracerebral hemorrhage Acute cerebrovascular accident (CVA) (HCC) documented in this encounter [employer] Phone: evaluation note* Diagnosis Intraparenchymal hemorrhage of brain (HCC) Intracerebral hemorrhage documented in this encounter [employer] Phone: evaluation note* Diagnosis Type 2 diabetes mellitus with diabetic polyneuropathy (CMS/HCC) documented in this encounter [facility] HealthcareEvaluation note* Diagnosis Type 2 diabetes mellitus [...] diabetic polyneuropathy (CMS/HCC) documented in this encounter [facility] HealthcareEvaluation note* Diagnosis Type 2 diabetes mellitus [...] FoundDocuments on File Type Date Recorded Patient Copy Reader Expl anation Advance Directives and Living Will Power of Lasting Room Machine Operator Latest Code Status on File Code Status Date Activated Date Inactivated Comments Full Code 10/31/2019 10:09 AM 10/31/2019 6:29 PM Documents on File Type Date Recorded Patient Copy Reader Expl anation Advance Directives and Living Will Power of Lasting Room Machine Operator Latest Code Status on File Code Status Date Activated Date Inactivated Comments Full Code 10/31/2019 10:09 AM 10/31/2019 6:29 PM Documents on File Type Date Recorded Patient Copy Reader Expl anation ACP-Advance Directive ACP-Power of Lasting Room Machine Operator Latest Code Status on File Code Status [...] BRAIN [place] [address] [place] [address] [facility] [address] [place] [address] Status Reason Specialty Diagnoses / Procedures Referre d By Contact Referred To Contact Closed Diagnoses Cerebrovascular accident (CVA) due to embolism of precerebral artery (HCC) Memory impairment Procedures [place] [address] [place] [address] Status Reason Specialty Diagnoses / Procedures Referre d By Contact Referred To Contact Closed Cardiology Diagnoses 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) Cerebrovascular accident (CVA) due to embolism of precerebral artery (HCC) Procedures ECHO Complete 2D W Doppler W Color Andreia Chiang MD [address] [place] [address] Status Reason Specialty Diagnoses / Procedures Referre d By Contact Referred To Contact Open Radiology Diagnoses Intraparenchymal hemorrhage of brain (HCC) Procedures CT HEAD WO CONTRAST [place] [address] [place] [address] Status Reason Specialty Diagnoses / Procedures Referre d By Contact Referred To Contact Closed Radiology Diagnoses Intraparenchymal hemorrhage of brain (HCC) Procedures CT HEAD WO CONTRAST CT HEAD WO CONTRAST Barbara Perea DO [address] [place] [address] Assessments Diagnosis Cerebrovascular accident (CVA), unspecified mechanism [...] underlying condition with diabetic neuropathy, unspecified whether entry writer insulin use (HCC) Cerebrovascular accident (CVA) due to embolism of precerebral artery (HCC) Memory impairment Memory loss Diagnosis 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) Cerebrovascular accident (CVA) due to embolism of precerebral artery (HCC) History of Present Illness * Yoselyn Pedro - 05/08/2020 10:45 AM EDT 22g IV inserted R Jose kelly by personal lines underwriter, used for bubble study documented in this encounter Additional Source Comments (unrecognized sect ion and content) No Status Records FoundNo Status Records FoundNo Status Records FoundNo Status Records FoundNo Status Records FoundNo Status Records FoundNo Status Records Found INFORMATION SOURCE (unrecogn ized section and content) DATE CREATED AUTHOR 04/27/2018 [facility] DATE CREATED AUTHOR AUTHOR'S ORGANIZ ATION 05/16/2020 [facility] DATE CREATED AUTHOR AUTHOR'S ORGANIZ ATION 05/11/2021 [facility] DATE CREATED AUTHOR AUTHOR'S ORGANIZ ATION 01/20/2023 [facility] DATE CREATED AUTHOR AUTHOR'S ORGANIZ ATION 10/18/2023 [facility] DATE CREATED AUTHOR AUTHOR'S ORGANIZ ATION 09/05/2024 [facility] DATE CREATED AUTHOR AUTHOR'S ORGANIZ ATION 09/09/2024 [facility] EPIC Reason for Visit (unrecogniz ed section and content) Status Reason Specialty Diagnoses / Procedures Referre d By Contact Referred To Contact Closed Radiology Diagnoses Cerebrovascular accident (CVA), unspecified mechanism (HCC) Procedures CT HEAD WO CONTRAST HC CT BRAIN W/O CONTRAST Sabrina Aguiar Sa, MD [address] [address] [facility] [address] [place] [address] Status Reason Specialty Diagnoses / Procedures Referre d By Contact Referred To Contact Closed Diagnoses Cerebrovascular accident (CVA) due to embolism of precerebral artery (HCC) Memory impairment Procedures EEG awake and asleep Andreia Chiang MD [address] [address] Status Reason Specialty Diagnoses / Procedures Referre d By Contact Referred To Contact Closed Cardiology Diagnoses 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) Cerebrovascular accident (CVA) due to embolism of precerebral artery (HCC) Procedures ECHO Complete 2D W Doppler W Color Andreia Chiang MD [address] [place] [address] Reason Comments Altered Mental Status Status Reason Specialty Diagnoses / Procedures Referre d By Contact Referred To Contact [facility] Reason Comments Cerebrovascular Accident tx from [facility] w Status Reason Specialty Diagnoses / Procedures Re ferred By Contact Referred To Contact Diagnoses Acute cerebrovascular accident (CVA) (HCC) Bennie Bosch MD [address] [facility] [address] [address] [facility] Status Reason Specialty Diagnoses / Procedures Referre d By Contact Referred To Contact Closed Radiology Diagnoses Intraparenchymal hemorrhage of brain (HCC) Procedures CT HEAD WO CONTRAST CT HEAD WO CONTRAST Barbara Perea DO [address] [place] [address] Reason Onset Date Comments Med Refill 07/26/2024 [...] Garcia RN) 0754 (Not Given - Provider: Dasia Solis RN [...]
Care Teams (unrecognized sec tion and content) Health Program Manager Relationship Specialty Start Date End Date Alec Pinzon MD [address] [place] [phone] PCP - General Family Medicine 11/17/23 Health Program Manager Relationship Specialty Start Date End Date Alec Pinzon MD [address] [place] [phone] PCP - General Family Medicine 11/17/23 Health Program Manager Relationship Specialty Start Date End Date Alec Pinzon MD [address] [place] [address] PCP - [facility] 11/17/23 Health Program Manager Relationship Specialty Start Date End Date Alec Pinzon MD [address] [place] [address] PCP - [facility] 11/17/23 [...] BE BASED ON THE PRIMARY CLINICAL RECORDS. [facility] [employer] [facility]. provides no warranty or guarantee of the accuracy or completeness of information in this document.
[2024-09-16 15:33] LABS: TSH W/ REFLEX FT4 0.772 uIU/mL (0.358-3.740)
[2024-09-16 15:48] LABS: Glucometer 91 mg/dL (74-106)
[2024-09-16] MEDS: HYDROCORTISONE SODIUM SUCC PF 100 MG/2 ML VIAL IVP (15:48)
[2024-09-16] MEDS: HEPARIN SODIUM (PORCINE) 5,000 UNIT/ML VIAL 5000 UNIT SUBQ ×2 (15:48→23:14)
[2024-09-16] MEDS: AZITHROMYCIN 250 MG TABLET 500 MG PO (15:48)
[2024-09-16] MEDS: LACTATED RINGER'S SOLUTION 1,000 ML 125 ML IV ×2 (15:48→23:18)
[2024-09-16] MEDS: CEFTRIAXONE 1,000 MG in 0.9 % SODIUM CHLORIDE 50 ML 100 MG IV (17:14)
[2024-09-16] MEDS: OXYCODONE HCL 5 MG TABLET PO ×2 (17:17→23:14)
[2024-09-16 20:03] LABS: Glucometer 258 mg/dL (74-106)
[2024-09-16] MEDS: SODIUM BICARBONATE 325 MG TABLET 650 MG PO (20:44)
[2024-09-16] MEDS: METOPROLOL TARTRATE 25 MG TABLET PO (20:45)
[2024-09-16] MEDS: HYDROCORTISONE 20 MG TABLET 10 MG PO (20:45)
[2024-09-16] MEDS: GABAPENTIN 100 MG CAPSULE PO (20:45)
[2024-09-16] MEDS: AMITRIPTYLINE HCL 50 MG TABLET 150 MG PO (21:43)
[2024-09-16] MEDS: ATORVASTATIN CALCIUM 40 MG TABLET PO (21:44)
[2024-09-16] MEDS: INSULIN ASPART 300 UNIT/3 ML PEN SUBQ (21:44)
[2024-09-16] MEDS: OMEPRAZOLE 40 MG CAPSULE.DR PO (21:44)
--- NOTE | 2024-09-16 23:11 | P.HP_ITS ---
HPI H&P: HPI History of Present Illness Chief complaint: SKIN, URINARY PROBLEMS, SEPSIS, PNEUMONIA, ADARSH Narrative: 69 y o male who lives at home with his , was in his usual state of health until yesterday when her noticed that he seemed overall weak and tired. Last night, he was feeling cold and chills. In the morning, he was confused, agitated and was experiencing hallucinations. Patient was brought over to ED where his work up revealed Sepsis sec to PNA. His BP initially was low and he required IV fluids and stress dose steroids. Patient denied SOB and chronic intermittent cough with no sig change in the past few days. By the time, I evaluated the patient, he was not confused anymore but his Blood pressure was still low and he felt weak and tired overall. Patient had Nephrectomy earlier this year for Renal cell Ca and is currently on Immunotherapy for it. He is also on chronic hydrocortisone due to adrenal sufficiency from Immunotherapy use. Opioid HPI Opioid Management Most Recent Pain and Opioid Data: Last Pain Scale 7 09/16/24 23:14 09/16/24 Last Pain Assessment 09/16/24 23:00 Last ORT Total Score 0 09/16/24 14:51 09/16/24 Last ORT Risk Category Low Risk 09/16/24 14:51 09/16/24 PFSH PFSH Medical History (Updated 09/16/24 @ 23:30 by Shaikh James MD) Type 2 diabetes mellitus ?E11.9 - Type 2 diabetes mellitus without complications (ICD-10) Maintenance antineoplastic immunotherapy ?Z51.12 - Encounter for antineoplastic immunotherapy (ICD-10) 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 ?E27.3 - Drug-induced adrenocortical insufficiency (ICD-10) Chronic steroid use Hypothyroidism ?E03.9 - Hypothyroidism, unspecified (ICD-10) HLD (hyperlipidemia) ?E78.5 - Hyperlipidemia, unspecified (ICD-10) CAD (coronary artery disease) ?I25.10 - Atherosclerotic heart disease of [place] coronary artery without angina pectoris (ICD-10) CKD stage 3b, GFR 30-44 ml/min ?N18.32 - Chronic kidney disease, stage 3b (ICD-10) H/O renal cell carcinoma ?Z85.528 - Personal history of other malignant neoplasm of kidney (ICD-10) History of kidney cancer ?Z85.528 - Personal history of other malignant neoplasm of kidney (ICD-10) Femoral-femoral bypass graft thrombosis, left ?T82.868A - Thrombosis due to vascular prosthetic devices, implants and grafts, initial encounter (ICD-10) Kidney carcinoma ?C64.9 - Malignant neoplasm of unspecified kidney, except renal pelvis (ICD- 10) Surgical History (Updated 09/16/24 @ 15:12 by Eri Le) Hx of cholecystectomy ?Z90.49 - Acquired absence of other specified parts of digestive tract (ICD- 10) History of kidney removal ?Z90.5 - Acquired absence of kidney (ICD-10) History of open heart surgery ?Z98.890 - Other specified postprocedural states (ICD-10) Family History (Updated 09/16/24 @ 15:07 by Eri Le) Mother Family history of CHF (congestive heart failure) Family history of diabetes mellitus Family history of hypertension Family history of myocardial infarction Father Family history of cancer Sister Family history of cancer Family history of diabetes mellitus Family history of hypertension Brother Family history of cancer Family history of myocardial infarction Grandfather Family history of myocardial infarction Social History (Updated 09/16/24 @ 15:09 by Eri Le) Within the past year, how often did you have a drink containing alcohol: never Score interpretation: A score less than 4 is consistent with normal alcohol consumption. 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 Highest level of school completed/degree received: 12th grade, no diploma Are you now , , , , never or living with a partner: In a typical week, how many times do you talk on the telephone with family, friends, or neighbors: 3 or more times per week How often do you get together with friends or relatives: 3 or more times per week How often do you attend yazdanism or hinduism services: never Do you belong to any clubs or organizations such as yazdanism groups unions, fraternal or athletic groups, or school groups: no Total score: 2 Score interpretation: A score of greater than or equal to 2 indicates the lowest level of social isolation. Little interest or pleasure in doing things: not at all Feeling down, depressed, or hopeless: not at all Feel stressed/tense/nervous/anxious/difficulty sleeping: not at all Meds Home Medications and Allergies Home Medications ?Medication ?Instructions ?Recorded ?Confirmed ?Type amitriptyline 150 mg tablet 150 mg PO .qhs 09/16/24 09/16/24 History aspirin 81 mg tablet,delayed 81 mg PO DAILY 09/16/24 09/16/24 History release (Adult Low Dose Aspirin) atorvastatin 40 mg tablet 40 mg PO .qhs 09/16/24 09/16/24 History clopidogrel 75 mg tablet 75 mg PO .qd 09/16/24 09/16/24 History dapagliflozin propanediol 10 mg 10 mg PO .qd 09/16/24 09/16/24 History tablet (Farxiga) gabapentin 100 mg capsule 100 mg PO BID 09/16/24 09/16/24 History glipizide 10 mg tablet 10 mg PO BID 09/16/24 09/16/24 History hydrocortisone 10 mg tablet 10 mg PO Q12H 09/16/24 09/16/24 History levothyroxine 50 mcg tablet 50 mcg PO .qd 09/16/24 09/16/24 History metoprolol tartrate 25 mg tablet 25 mg PO BID 09/16/24 09/16/24 History oxycodone-acetaminophen 5 mg-325 1 tab PO Q6H PRN severe pain 09/16/24 09/16/24 History mg tablet (scale score 7-10) pantoprazole 40 mg tablet,delayed 80 mg PO .night 09/16/24 09/16/24 History release sodium bicarbonate 650 mg tablet 650 mg PO BID 09/16/24 09/16/24 History Allergies Allergy/AdvReac Type Severity Reaction Status Date / Time No Known Drug Allergies Allergy Verified 09/16/24 10:20 Exam Constitutional Vital Signs, click to edit/add: Last Vital Signs Temp 98.6 F 09/16/24 19:38 Pulse 83 09/16/24 22:04 Resp 18 09/16/24 20:00 BP 126/74 09/16/24 19:38 Pulse Ox 90 L 09/16/24 20:52 O2 Del Method Room Air 09/16/24 20:52 Documenting provider has reviewed patient's vital signs: yes Common normals: no apparent distress and oriented x3 General appearance: cooperative HENMT Common normals: normocephalic and head/scalp atraumatic Head and scalp: normocephalic and atraumatic Eye Common normals: conjunctivae normal and no scleral icterus Conjunctiva: conjunctiva(e) normal Respiratory Effort & inspection: able to speak in complete sentences and tachypneic Auscultation: diminished lung sounds on the right Cardio Common normals: regular rate, S1 normal heart sound and S2 normal heart sound Rate: regular rate Heart sounds: S1 normal and S2 normal GI Common normals: Normal to inspection, nondistended, normoactive bowel sounds present, soft to palpation, non-tender and no hepatosplenomegaly Palpation: soft and no hepatosplenomegaly Extremity Common normals: no clubbing, cyanosis or edema Neuro Common normals: oriented x3, moves all extremities and no focal motor deficits Psych Common normals: mental status grossly normal, denies hallucinations, denies homicidal ideation and denies suicidal ideation Results Labs Labs: Short CBC 09/16/24 Range/Units 10:25 WBC 14.7 H (4.0-11.0) 10^3/uL Hgb 12.6 L (14.0-18.0) g/dL Hct 38.0 L (42.0-54.0) % Plt Count 251 (150-450) 10^3/uL BMP 09/16/24 10:25 Sodium 140 Potassium 4.1 Chloride 107 Carbon Dioxide 24.3 BUN 31.0 H Creatinine 2.44 H Glucose 196 H Calcium 8.6 Liver Function 09/16/24 Range/Units 10:25 Total Bilirubin 1.0 (0.2-1.0) mg/dL AST 7 L (15-37) U/L ALT 17 (16-63) U/L Alkaline Phosphatase 89 (46-116) U/L Albumin 2.8 L (3.4-5.0) g/dL Urine 09/16/24 Range/Units 13:25 Urine Color Lt. yellow (YELLOW) Urine Clarity Clear (CLEAR) Urine pH 5.5 (5.0-9.0) Ur Specific [place] 1.010 (1.005-1.025) Urine Protein Negative (NEG/TRACE) mg/dL Urine Glucose (UA) >=1000 A (NEGATIVE) mg/dL Assessment and Plan Assessment and Plan (1) Sepsis: Assessment and Plan: Sepsis Criteria met (WBC>13K, HR> 90, RR> 20 Qsofa (Altered mental status, RR> 22, SBP less than 100) Source of infection - Pneumonia. Will give one time dose of steroid dose steroids due to underlying adrenal insufficiency. Will need anti pseudomonal coverage due to hx of chronic steroids, current immunotherapy. Started on IV Ceftazidime F/u blood and sputum cx. Qualifiers: Sepsis type: sepsis due to unspecified organism Sepsis acute organ dysfunction status: with acute organ dysfunction Severe sepsis acute organ dysfunction type: encephalopathy Severe sepsis shock status: without septic shock Qualified Code(s): A41.9 - Sepsis, unspecified organism; R65.20 - Severe sepsis without septic shock; G93.41 - Metabolic encephalopathy (2) ADARSH (acute kidney injury): Assessment and Plan: Baseline Renal Function/serum creatinine is typically 1.7. Presented with cr of 2.4 Likely due to sepsis, dehydration and hypotension. Monitor UO, serum cr. C/w IVF. (3) Pneumonia: Assessment and Plan: RLL Pna on CXR. Patient on chronic steroids, also on immunotherapy. At risk of resistant organisms. Will treat with IV ceftazidime Pneumonia severity Index Class - 5 - total 177 points with mortality risk of 27- 29%. Qualifiers: Pneumonia type: due to unspecified organism Laterality: right Lung location: middle lobe of lung Qualified Code(s): J18.9 - Pneumonia, unspecified organism (4) Metabolic encephalopathy: Assessment and Plan: Presented with confusion, hallucinations. Back to baseline when I evaluted him. (5) Lactic acidosis: Assessment and Plan: due to sepsis, dehydration. resolved with IVF. (6) CKD stage 3b, GFR 30-44 ml/min: Assessment and Plan: Due to Nephrectomy and T2 DM. Presented with ADARSH. Monitor serum cr, urine outpatient. C/w IVF. (7) CAD (coronary artery disease): Assessment and Plan: Hx of CABG about a year ago. No evidence of active cardiac ischemia. C/w ASA, plavix, statin. Qualifiers: Coronary Disease-Associated Artery/Lesion type: [place] artery [place] vs. transplanted heart: [place] heart Associated angina: without angina Qualified Code(s): I25.10 - Atherosclerotic heart disease of [place] coronary a rtery without angina pectoris (8) H/O renal cell carcinoma: Assessment and Plan: s/p nephrectomy. On Immunotherapy. (9) Hypothyroidism: Assessment and Plan: On levothyroxine.TSH at goal. Qualifiers: Hypothyroidism type: unspecified Qualified Code(s): E03.9 - Hypothyroidism, unspecified (10) Chronic steroid use: Assessment and Plan: On hydrocortisone due to adrenal insufficiency from Immunotherapy. (11) 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: Assessment and Plan: Acquired adrenal insufficiency from Immunotherapy use. On Hydrocortisone. (12) Maintenance antineoplastic immunotherapy: Assessment and Plan: On Immunotherapy for Hx of renal cell ca. (13) HLD (hyperlipidemia): Assessment and Plan: c/w lipitor. Qualifiers: Hyperlipidemia type: unspecified Qualified Code(s): E78.5 - Hyperlipidemia, unspecified (14) Type 2 diabetes mellitus: Assessment and Plan: On oral hypoglycemics. SSI while in patient. Qualifiers: Diabetes mellitus rn long term care insulin use: without senior living use Diabetes mellitus complication status: with kidney complications Diabetes mellitus complication detail: with chronic kidney disease Chronic kidney disease stage: stage 3 (moderate) Chronic kidney disease stage 3 subtype: stage 3b (GFR 30-44) Qualified Code(s): E11.22 - Type 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; N18.32 - Chronic kidney disease, stage 3b
[2024-09-17] VITALS (9 sets, daily range): BP systolic 108–123; BP diastolic 70–71; PULSE 74–95; TEMP 36.4; O2SAT 91–96
[2024-09-17] MEDS: OXYCODONE HCL 5 MG TABLET PO (05:37)
[2024-09-17] MEDS: LEVOTHYROXINE SODIUM 25 MCG TABLET 50 MCG PO (05:37)
[2024-09-17 06:19] LABS: Basophils Percent Auto 0.2 % (0.2-2.0); Eosinophils Percent Auto 0.2 % (0.9-7.0); Hematocrit 32.2 % (42.0-54.0); Hemoglobin 10.6 g/dL (14.0-18.0); Immature Granulocytes Abs Auto 0.03 10^3/uL (0.00-0.03); Immature Granulocytes Pct Auto 0.3 % (0.0-0.5); Lymphocytes Absolute Auto 1.6 10^3/uL (1.2-3.8); Lymphocytes Percent Auto 15.3 % (20.5-60.0); Mean Corpuscular HGB Conc 32.9 g/dL (29.9-35.2); Mean Corpuscular Hemoglobin 30.3 pg (25.9-34.0); Mean Platelet Volume 9.8 fL (9.5-13.5); Monocytes Absolute Auto 0.6 10^3/uL (0.3-0.8); Neutrophils Absolute Auto 8.1 10^3/uL (1.4-6.5); Platelet Count 201 10^3/uL (150-450); Red Cell Distribution Width 14.4 % (11.0-15.0); White Blood Count 10.4 10^3/uL (4.0-11.0)
[2024-09-17 06:39] LABS: Alanine Aminotransferase 13 U/L (16-63); Albumin Globulin Ratio 0.6; Albumin Level 2.4 g/dL (3.4-5.0); Alkaline Phosphatase 72 U/L (46-116); Anion Gap 12.8; Aspartate Amino Transferase 8 U/L (15-37); BUN Creatinine Ratio 12.4; Bilirubin Total 0.8 mg/dL (0.2-1.0); Carbon Dioxide 21.2 mmol/L (21.0-32.0); Chloride 109 mmol/L (98-107); Estimated GFR (African America 42 (>=60 mL/min/1.73m^2); Estimated GFR (Non-African Ame 35 (>=60 mL/min/1.73m^2); Globulin 3.7 g/dL; Glucose 105 mg/dL (74-106); Sodium 139 mmol/L (136-145); Total Protein 6.1 g/dL (6.4-8.2)
[2024-09-17] MEDS: HEPARIN SODIUM (PORCINE) 5,000 UNIT/ML VIAL 5000 UNIT SUBQ (09:12)
[2024-09-17] MEDS: AZITHROMYCIN 250 MG TABLET 500 MG PO (09:12)
[2024-09-17] MEDS: HYDROCORTISONE 20 MG TABLET 10 MG PO (09:12)
[2024-09-17] MEDS: ASPIRIN 81 MG TABLET.DR PO (09:12)
[2024-09-17] MEDS: CLOPIDOGREL BISULFATE 75 MG TABLET PO (09:12)
[2024-09-17] MEDS: CEFTAZIDIME 1,000 MG in 0.9 % SODIUM CHLORIDE 50 ML 100 MG IV (09:12)
[2024-09-17] MEDS: METOPROLOL TARTRATE 25 MG TABLET PO (09:13)
[2024-09-17] MEDS: GABAPENTIN 100 MG CAPSULE PO (09:13)
[2024-09-17] MEDS: SODIUM BICARBONATE 325 MG TABLET 650 MG PO (09:13)
[2024-09-17 09:26] LABS: A. calcoaceticus-baumannii Cpx NOT DETECTED (NOT DETECTE); Bacteroides fragilis NOT DETECTED (NOT DETECTE); Candida albicans NOT DETECTED (NOT DETECTE); Candida auris NOT DETECTED (NOT DETECTE); Candida glabrata NOT DETECTED (NOT DETECTE); Candida krusei NOT DETECTED (NOT DETECTE); Candida parapsilosis NOT DETECTED (NOT DETECTE); Candida tropicalis NOT DETECTED (NOT DETECTE); Cryptococcus neoformans/gattii NOT DETECTED (NOT DETECTE); Enterobacter cloacae complex NOT DETECTED (NOT DETECTE); Enterobacterales NOT DETECTED (NOT DETECTE); Enterococcus faecalis NOT DETECTED (NOT DETECTE); Enterococcus faecium NOT DETECTED (NOT DETECTE); Haemophilus influenzae NOT DETECTED (NOT DETECTE); Klebsiella aerogenes NOT DETECTED (NOT DETECTE); Klebsiella pneumoniae group NOT DETECTED (NOT DETECTE); Listeria monocytogenes NOT DETECTED (NOT DETECTE); Neisseria meningitidis NOT DETECTED (NOT DETECTE); Proteus spp. NOT DETECTED (NOT DETECTE); Pseudomonas aeruginosa NOT DETECTED (NOT DETECTE); Salmonella spp. NOT DETECTED (NOT DETECTE); Serratia marcescens NOT DETECTED (NOT DETECTE); Staphylococcus epidermidis NOT DETECTED (NOT DETECTE); Staphylococcus lugdunensis NOT DETECTED (NOT DETECTE); Stenotrophomonas maltophilia NOT DETECTED (NOT DETECTE); Streptococcus agalactiae NOT DETECTED (NOT DETECTE); Streptococcus pneumoniae NOT DETECTED (NOT DETECTE); Streptococcus pyogenes NOT DETECTED (NOT DETECTE); Streptococcus spp. NOT DETECTED (NOT DETECTE)
[2024-09-17 09:27] LABS: Source BLOOD
[2024-09-17 09:42] LABS: Staphylococcus spp. DETECTED (NOT DETECTE)
--- NOTE | 2024-09-17 10:10 | PM.DS1 ---
DS: Providers Provider Date of admission: 09/16/24 14:35 Primary care physician: Alec Trotter MD Admitting clinician: Shaikh James Attending physician on admission: Shaikh James Consults: 09/16/24 12:04 Physical Therapy Eval and Treat Routine Reason for consultation: Ambulatory dysfunction/weakness Attending physician on discharge: Shaikh James Discharging clinician: Shaikh James Anticipated date of discharge: 09/17/24 DS: Diagnosis Discharge Diagnosis (1) Sepsis: Qualifiers: Sepsis acute organ dysfunction status: with acute organ dysfunction Sepsis type: sepsis due to unspecified organism Severe sepsis acute organ dysfunction type: encephalopathy Severe sepsis shock status: without septic shock Qualified Code(s): A41.9 - Sepsis, unspecified organism; R65.20 - Severe sepsis without septic shock; G93.41 - Metabolic encephalopathy (2) ADARSH (acute kidney injury): (3) Pneumonia: Qualifiers: Laterality: right Lung location: middle lobe of lung Pneumonia type: due to unspecified organism Qualified Code(s): J18.9 - Pneumonia, unspecified organism (4) Metabolic encephalopathy: (5) Lactic acidosis: (6) CKD stage 3b, GFR 30-44 ml/min: (7) CAD (coronary artery disease): Qualifiers: Coronary Disease-Associated Artery/Lesion type: [place] artery [place] vs. transplanted heart: [place] heart Associated angina: without angina Qualified Code(s): I25.10 - Atherosclerotic heart disease of [place] coronary artery without angina pectoris (8) H/O renal cell carcinoma: (9) Hypothyroidism: Qualifiers: Hypothyroidism type: unspecified Qualified Code(s): E03.9 - Hypothyroidism, unspecified (10) Chronic steroid use: (11) 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: (12) Maintenance antineoplastic immunotherapy: (13) HLD (hyperlipidemia): Qualifiers: Hyperlipidemia type: unspecified Qualified Code(s): E78.5 - Hyperlipidemia, unspecified (14) Type 2 diabetes mellitus: Qualifiers: Diabetes mellitus mcc insulin use: without termite renewal inspector use Diabetes mellitus complication status: with kidney complications Diabetes mellitus complication detail: with chronic kidney disease Chronic kidney disease stage: stage 3 (moderate) Chronic kidney disease stage 3 subtype: stage 3b (GFR 30-44) Qualified Code(s): E11.22 - Type 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; N18.32 - Chronic kidney disease, stage 3b DS: Summary Hospital Course Hospital Course: 69 y o male who lives at home with his , was in his usual state of health when her noticed that he seemed overall weak and tired. Night before admission, he was feeling cold and chills. In the morning, he was confused, agitated and was experiencing hallucinations. Patient was brought over to ED where his work up revealed Sepsis sec to PNA. His BP initially was low and he required IV fluids and stress dose steroids. Patient denied SOB and reported chronic intermittent cough with no sig change in the past few days. Patient was admitted as inpatient for Pneumonia with Sepsis, along with hypotension and was treated with IV fluids and IV ceftazidime. His Pneumonia severity Index placed him in risk class V due to his of CKD, Congestive HF and hx of cancer currently on antineoplastic therapy. Patient's had a rather remarkable turn around in one day and today was feeling considerably better and had no active complaints to offer. Given his hx, and severity of presenting illness, I recommended that he will benefit from another day of inpatient monitoring and treatment but he insisted on going home today. Patient is medically stable for discharge but would have benefitted from another day of IV abx and inpatient monitoring. Patient will be discharged on oral Levaquin and Doxycycline to cover for Staph Aureus or pseudomonas given his risk of infection from resistant organism. Patient instructed to f/u with PCP in one week Status at Discharge Functional status at discharge: independent ambulation Overall status at discharge: patient is back to baseline Time Spent with Patient Time attestation: Total time spent providing and/or coordinating discharge services: Time spent: greater than 30 minutes Exam Constitutional Vital Signs, click to edit/add: Last Vital Signs Temp 97.5 F L 09/17/24 09:36 Pulse 95 H 09/17/24 09:36 Resp 18 09/17/24 09:36 BP 108/71 09/17/24 09:36 Pulse Ox 91 L 09/17/24 09:36 O2 Del Method Room Air 09/17/24 09:36 Documenting provider has reviewed patient's vital signs: yes Common normals: no apparent distress and oriented x3 General appearance: cooperative Respiratory Effort & inspection: able to speak in complete sentences and tachypneic Auscultation: diminished lung sounds on the right Cardio Common normals: regular rate, S1 normal heart sound and S2 normal heart sound Rate: regular rate Heart sounds: S1 normal and S2 normal Extremity Common normals: no clubbing, cyanosis or edema Neuro Common normals: oriented x3, moves all extremities and no focal motor deficits Psych Common normals: mental status grossly normal, denies hallucinations, denies homicidal ideation and denies suicidal ideation DS: Data Data Completed and Pending Labs on day of discharge: Labs from last 24 hours 09/17/24 09/16/24 09/16/24 06:02 19:53 15:47 WBC 10.4 RBC 3.50 L Hgb 10.6 L Hct 32.2 L MCV 92.0 MCH 30.3 MCHC 32.9 RDW 14.4 Plt Count 201 MPV 9.8 Neut % (Auto) 78.0 H Lymph % (Auto) 15.3 L [place] % (Auto) 6.0 Eos % (Auto) 0.2 L Baso % (Auto) 0.2 Neut # (Auto) 8.1 H Lymph # (Auto) 1.6 [place] # (Auto) 0.6 Eos # (Auto) 0.0 Baso # (Auto) 0.0 Abs Immat Gran (auto) 0.03 Imm/Tot Granulo (auto) 0.3 PT INR Sodium 139 Potassium 4.0 Chloride 109 H Carbon Dioxide 21.2 Anion Gap 12.8 BUN 24.0 H Creatinine 1.94 H Est GFR ( Amer) 42 L Est GFR (Non-Af Amer) 35 L BUN/Creatinine Ratio 12.4 Glucose 105 Lactate Calcium 9.0 Total Bilirubin 0.8 AST 8 L ALT 13 L Alkaline Phosphatase 72 Troponin I High Sens Total Protein 6.1 L Albumin 2.4 L Globulin 3.7 Albumin/Globulin Ratio 0.6 TSH & Free T4 Interp Urine Color Urine Clarity Urine pH Ur Specific [place] Urine Protein Urine Glucose (UA) Urine Ketones Urine Occult Blood Urine Nitrite Urine Bilirubin Urine Urobilinogen Ur Leukocyte Esterase Specimen Source A.calcoaceticus-baumannii cmplx PCR Bacteroides fragilis Aletha albicans (PCR) Aletha auris (PCR) C. glabrata (PCR) C. krusei (PCR) C. parapsilosis (PCR) C. tropicalis (PCR) C. neoform/gattii (PCR) Enterobacterales (PCR) E. cloacae complex PCR Enterococc faecalis PCR Enterococc faecium PCR E. coli (PCR) H. influenzae (PCR) Klebsiella aerogenes (PCR) Klebsiella oxytoca PCR K. pneumoniae group (PCR) List. monocytogenes PCR N. meningitidis (PCR) Proteus spp. (copies/mL) Salmonella spp. (PCR) SARS-CoV-2 Ag (CV2AG) Serratia marcescens PCR Staphylococcus sp PCR Staph aureus (PCR) mecA/C & MREJ Resist Gene mecA/C-Methicil Resis Gene mcr-1 [place] Res Gene PCR Staph epidermidis (PCR) Staph lugdunensis (TEM-PCR) S. maltophilia (PCR) Streptococcus sp PCR Strep agalactiae (PCR) Strep pneumoniae (PCR) S. pyogenes (PCR) P. aeruginosa (PCR) Michael/B-Vanco Res Genes blaIMP Car res Gene PCR KPC (blaKPC) Detect PCR NDM (blaNDM) Detect PCR OXA-48 Carbapenem Resis Gene (PCR) blaVIM Car Res Gene PCR CTX-M ESBL (PCR) POC Glucose 258 H 91 09/16/24 09/16/24 09/16/24 13:32 13:25 11:55 WBC RBC Hgb Hct MCV MCH MCHC RDW Plt Count MPV Neut % (Auto) Lymph % (Auto) [place] % (Auto) Eos % (Auto) Baso % (Auto) Neut # (Auto) Lymph # (Auto) [place] # (Auto) Eos # (Auto) Baso # (Auto) Abs Immat Gran (auto) Imm/Tot Granulo (auto) PT INR Sodium Potassium Chloride Carbon Dioxide Anion Gap BUN Creatinine Est GFR ( Amer) Est GFR (Non-Af Amer) BUN/Creatinine Ratio Glucose Lactate 1.7 Calcium Total Bilirubin AST ALT Alkaline Phosphatase Troponin I High Sens Total Protein Albumin Globulin Albumin/Globulin Ratio TSH & Free T4 Interp Urine Color Lt. yellow Urine Clarity Clear Urine pH 5.5 Ur Specific [place] 1.010 Urine Protein Negative Urine Glucose (UA) >=1000 A Urine Ketones Negative Urine Occult Blood Negative Urine Nitrite Negative Urine Bilirubin Negative Urine Urobilinogen 0.2 Ur Leukocyte Esterase Negative Specimen Source A.calcoaceticus-baumannii cmplx PCR Bacteroides fragilis Aletha albicans (PCR) Aletha auris (PCR) C. glabrata (PCR) C. krusei (PCR) C. parapsilosis (PCR) C. tropicalis (PCR) C. neoform/gattii (PCR) Enterobacterales (PCR) E. cloacae complex PCR Enterococc faecalis PCR Enterococc faecium PCR E. coli (PCR) H. influenzae (PCR) Klebsiella aerogenes (PCR) Klebsiella oxytoca PCR K. pneumoniae group (PCR) List. monocytogenes PCR N. meningitidis (PCR) Proteus spp. (copies/mL) Salmonella spp. (PCR) SARS-CoV-2 Ag (CV2AG) Negative Serratia marcescens PCR Staphylococcus sp PCR Staph aureus (PCR) mecA/C & MREJ Resist Gene mecA/C-Methicil Resis Gene mcr-1 [place]ist[place] Res Gene PCR Staph epidermidis (PCR) Staph lugdunensis (TEM-PCR) S. maltophilia (PCR) Streptococcus sp PCR Strep agalactiae (PCR) Strep pneumoniae (PCR) S. pyogenes (PCR) P. aeruginosa (PCR) Michael/B-Vanco Res Genes blaIMP Car res Gene PCR KPC (blaKPC) Detect PCR NDM (blaNDM) Detect PCR OXA-48 Carbapenem Resis Gene (PCR) blaVIM Car Res Gene PCR CTX-M ESBL (PCR) POC Glucose 09/16/24 10:25 WBC 14.7 H RBC 4.12 L Hgb 12.6 L Hct 38.0 L MCV 92.2 MCH 30.6 MCHC 33.2 RDW 14.3 Plt Count 251 MPV 9.8 Neut % (Auto) 83.9 H Lymph % (Auto) 9.1 L [place] % (Auto) 6.1 Eos % (Auto) 0.3 L Baso % (Auto) 0.3 Neut # (Auto) 12.3 H Lymph # (Auto) 1.3 [place] # (Auto) 0.9 H Eos # (Auto) 0.1 Baso # (Auto) 0.0 Abs Immat Gran (auto) 0.05 H Imm/Tot Granulo (auto) 0.3 PT 11.3 INR 1.07 Sodium 140 Potassium 4.1 Chloride 107 Carbon Dioxide 24.3 Anion Gap 12.8 BUN 31.0 H Creatinine 2.44 H Est GFR ( Amer) 32 L Est GFR (Non-Af Amer) 27 L BUN/Creatinine Ratio 12.7 Glucose 196 H Lactate 2.2 H* Calcium 8.6 Total Bilirubin 1.0 AST 7 L ALT 17 Alkaline Phosphatase 89 Troponin I High Sens 20.9 Total Protein 6.6 Albumin 2.8 L Globulin 3.8 Albumin/Globulin Ratio 0.7 TSH & Free T4 Interp 0.772 Urine Color Urine Clarity Urine pH Ur Specific [place] Urine Protein Urine Glucose (UA) Urine Ketones Urine Occult Blood Urine Nitrite Urine Bilirubin Urine Urobilinogen Ur Leukocyte Esterase Specimen Source Blood A.calcoaceticus-baumannii cmplx PCR Not detected Bacteroides fragilis Not detected Aletha albicans (PCR) Not detected Aletha auris (PCR) Not detected C. glabrata (PCR) Not detected C. krusei (PCR) Not detected C. parapsilosis (PCR) Not detected C. tropicalis (PCR) Not detected C. neoform/gattii (PCR) Not detected Enterobacterales (PCR) Not detected E. cloacae complex PCR Not detected Enterococc faecalis PCR Not detected Enterococc faecium PCR Not detected E. coli (PCR) Not detected H. influenzae (PCR) Not detected Klebsiella aerogenes (PCR) Not detected Klebsiella oxytoca PCR Not detected K. pneumoniae group (PCR) Not detected List. monocytogenes PCR Not detected N. meningitidis (PCR) Not detected Proteus spp. (copies/mL) Not detected Salmonella spp. (PCR) Not detected SARS-CoV-2 Ag (CV2AG) Serratia marcescens PCR Not detected Staphylococcus sp PCR Detected A* Staph aureus (PCR) Not detected mecA/C & MREJ Resist Gene Not applicable mecA/C-Methicil Resis Gene Not applicable mcr-1 [place] Res Gene PCR Not applicable Staph epidermidis (PCR) Not detected Staph lugdunensis (TEM-PCR) Not detected S. maltophilia (PCR) Not detected Streptococcus sp PCR Not detected Strep agalactiae (PCR) Not detected Strep pneumoniae (PCR) Not detected S. pyogenes (PCR) Not detected P. aeruginosa (PCR) Not detected Michael/B-Vanco Res Genes Not applicable blaIMP Car res Gene PCR Not applicable KPC (blaKPC) Detect PCR Not applicable NDM (blaNDM) Detect PCR Not applicable OXA-48 Carbapenem Resis Gene (PCR) Not applicable blaVIM Car Res Gene PCR Not applicable CTX-M ESBL (PCR) Not applicable POC Glucose Discharge Plan Discharge Disposition: Home, Self-Care Discharge Medications: New doxycycline hyclate 100 mg tablet 100 mg PO BID 7 Days Qty: 14 0RF levofloxacin 750 mg tablet 750 mg PO .q48 8 Days Qty: 4 0RF Continued atorvastatin 40 mg tablet 40 mg PO .qhs amitriptyline 150 mg tablet 150 mg PO .qhs glipizide 10 mg tablet 10 mg PO BID clopidogrel 75 mg tablet 75 mg PO .qd oxycodone-acetaminophen 5-325 mg tablet 1 tab PO Q6H PRN (Reason: severe pain (scale score 7-10)) sodium bicarbonate 650 mg tablet 650 mg PO BID levothyroxine 50 mcg tablet 50 mcg PO .qd pantoprazole 40 mg tablet,delayed release (DR/EC) 80 mg PO .night gabapentin 100 mg capsule 100 mg PO BID hydrocortisone 10 mg tablet 10 mg PO Q12H metoprolol tartrate 25 mg tablet 25 mg PO BID dapagliflozin propanediol [Farxiga] 10 mg tablet 10 mg PO .qd aspirin [Adult Low Dose Aspirin] 81 mg tablet,delayed release (DR/EC) 81 mg PO DAILY Activity: increase activity as tolerated Diet: advance to your usual diet Print Language: Uzbek Forms: Portal Instructions Follow Up Appointments: Follow up with PCP in one week
[2024-09-17] MEDS: FLU VACC QS2024(65UP)/MF59C/PF 60 MCG/0.5 ML SYRINGE IM (11:01)
== END 2024-09-17 11:15 | disposition home or self-care (01) | DRG 871 ==
LOC: ER 12:05 → MS 14:39
PROVIDERS: Admitting Provider Internal Medicine; Emergency Provider Emergency Medicine; PCP Family Medicine; Visit Provider Internal Medicine
DX: A41.9 Sepsis, unspecified organism (principal); G93.41 Metabolic encephalopathy; J18.9 Pneumonia, unspecified organism; N17.9 Acute kidney failure, unspecified; C64.9 Malignant neoplasm of unspecified kidney, except renal pelvis; E27.3 Drug-induced adrenocortical insufficiency; E87.20 Acidosis, unspecified; I95.9 Hypotension, unspecified; Z90.5 Acquired absence of kidney; E03.9 Hypothyroidism, unspecified; E78.5 Hyperlipidemia, unspecified; I25.10 Atherosclerotic heart disease of native coronary artery without angina pectoris; N18.32 Chronic kidney disease, stage 3b; Z90.49 Acquired absence of other specified parts of digestive tract; F17.200 Nicotine dependence, unspecified, uncomplicated; Z79.84 Long term (current) use of oral hypoglycemic drugs; E11.22 Type 2 diabetes mellitus with diabetic chronic kidney disease; Z79.890 Hormone replacement therapy; R65.20 Severe sepsis without septic shock; E86.0 Dehydration; Z95.1 Presence of aortocoronary bypass graft; Z79.82 Long term (current) use of aspirin; Z79.02 Long term (current) use of antithrombotics/antiplatelets; Z79.52 Long term (current) use of systemic steroids; Z79.69 Long term (current) use of other immunomodulators and immunosuppressants; I50.9 Heart failure, unspecified; T45.1X5A Adverse effect of antineoplastic and immunosuppressive drugs, initial encounter
CPT/HCPCS: 36415; 71045; 80053; 81003; 82948; 83605; 84443; 84484; 85025; 85610; 87040; 87150; 87811; 90662; 93005; 94761; 96361; 96365; 99285; 99406; J0696; J0713; J1644; J1720; J8499

== ENCOUNTER 2024-11-02 10:26 | Inpatient (IN) | payer MEDICARE, MEDICAID, SELFPAY ==
[2024-11-02] VITALS (85 sets, daily range): BP systolic 70–147; BP diastolic 31–93; PULSE 82–118; TEMP 36.8–37.8; O2SAT 75–100; BMI 27.8; BMI 28.4
--- NOTE | 2024-11-02 10:27 | ECG_ITS ---
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
--- NOTE | 2024-11-02 10:27 | XR_ITS ---
The [address] [address] Patient Name: DARIN VAN MRN: [id number] date: 1955 Sex: M Assigned Patient Location: ER Current Patient Location: ER Accession/Order Number: [id number] Exam Date: 11/02/2024 10:45 Report Date: 11/02/2024 11:00 At the request of: ANY HART Procedure: XR chest 1V EXAM: XR chest 1V HISTORY: Shortness of breath COMPARISON: 09/16/2024 TECHNIQUE: Single view of the chest FINDINGS: Heart is normal in size. Vascularity is unremarkable. Right lung is unremarkable. There are a few increased markings in the left lung base. There is slight blunting of left costophrenic angle. Infusion catheter is noted with the tip over the superior vena cava. Median sternotomy sutures are noted. EKG leads overlie the chest. XR/XR chest 1V IMPRESSION: 1. Small amount of increased density in the left lung base representing atelectasis or very early infiltrate. 2. Slight blunting of left costophrenic angle consistent with a small left effusion. Electronically authenticated by: LIZETH AWAN Date: 11/02/2024 11:00
--- OUTSIDE RECORDS SUMMARY | 2024-11-02 10:38 | XMS_ITS | CCD ---
Author Organization [facility] Care Team Providers Care Principal Programmer Name Role Phone PHYSICIAN, DEFAULT Unavailable Unavailable PHYSICIAN, DEFAULT Unavailable Unavailable ALEC PINZON Unavailable Unavailable PHYSICIAN, DEFAULT Unavailable Unavailable PHYSICIAN, DEFAULT Unavailable Unavailable ALEC PINZON Unavailable Unavailable Alec Pinzon Primary Care Provider BARBARA PEREA Referring Unavailable COSMESABRINA SA Referring Unavailable NADERER, ALEC ISAAC Primary Care Unavailabl e АНДРЕЙ, ANDREIA Referring Unavailable NADERELy, ALEC ISAAC Primary Care Unavailabl e АНДРЕЙ, ANDREIA Referring Unavailable NADERELy, ALEC ISAAC Primary Care Unavailabl e АНДРЕЙ, ANDREIA Referring Unavailable NADERELy, ALEC ISAAC Primary Care Unavailabl e Alec Pinzon Primary Care Provider Alec Pinzon MD Primary Care Provider ALEC PINZON Primary Care Unavailabl e ROXANN HACKETT Consulting Unavailable ALIA, NING Attending Unavailable LAIA, NING Admitting Unavailable PONCHO SHETH Consulting Unavailable ALIA, NING Consulting Unavailable LEVY, FANTA Consulting Unavailable PJ BECERRIL Consulting Unavailable ZANDRA PINK Consulting Unavaila FLACO Ernst Consulting Unavailable DIANA SWANSON Consulting Unavailable KERLINE BHATIA Consulting Unavailable Unavailable Primary Care Provider Unavailmitch BUSBY, DR ODOM Admitting Unavailable NADERER, DR ALEC Rose Primary Care Unavailable GERMÁN, KEMALSAM Consulting Unavailable KEHINDE, DR ODOM Attending Unavailable BUSBY, DR ODOM Consulting Unavailable NADERER, DR ALEC Rose Attending Unavailable NADERER, DR ALEC Rose Consulting Unavailable NADERER, DR ALEC Rose Primary Care Unavailable NADERER, DR ALEC Rose Admitting Unavailable NADERER, DR ALEC Rose Admitting Unavailable NADERER, DR ALEC Rose Attending Unavailable NADERER, DR ALEC Rose Primary Care Unavailable NADERER, DR ALEC Rose Consulting Unavailable ZIEBER, DR STEPHIE Modi Consulting Unavailable NADERER, DR [...] DES Admitting Unavailable TERRA, DES Attending Unavailable TERRA, DES Consulting Unavailable ALBERTA, ALEC Referring Unavailable ALBERTA, ALEC Primary Care Unavailable ALBERTA, ALEC Referring Unavailable NADERELy, ALEC Primary Care Unavailable Alec Pinzon MD Primary Care Provider ALBERTA, ALEC Attending Unavailable NADERER, ALEC Attending Unavailable NADERER, ALEC Attending Unavailable NADERER, ALEC Attending Unavailable VIJENDRA, ALEKSANDRA Attending Unavailable VIJENDRA, ALEKSANDRA Referring Unavailable VIJENDRA, ALEKSANDRA Referring Unavailable BARB, KAY Referring Unavailable ELGAFY, JAIME Attending Unavailable EVANGELINA GAVIRIA Attending Unavailable JESSA TORRES Attending Unav ailable MARUKAY DOUGHERTY Referring Unavailable ROSY, JAS Referring Unavailable JESSA TORRES Attending Unav ailable ELGAFY, JAIME Referring Unavailable VIJENDRA, ALEKSANDRA Referring Unavailable BARRIOS, SHAGGY Referring Unavailable BARRIOS, SHAGGY Referring Unavailable JESSA TORRES Referring Unav ailable VIJENDRA, ALEKSANDRA Referring Unavailable JESSA TORRES Attending Unav ailable TRAVISLASHONDA MCKNIGHT Attending Unavailable WILLIAM GAMBINO Attending Unavailable VIJENDRA, ALEKSANDRA Referring Unavailable VIJENDRA, ALEKSANDRA Attending Unavailable VIJENDRA, ALEKSANDRA Referring Unavailable VIJENDRA, ALEKSANDRA Attending Unavailable WILLIAM GAMBINO Attending Unavailable VIJENDRA, ALEKSANDRA Referring Unavailable BARB, KAY Referring Unavailable HAMMONDS BEAL, JESSA Attending Unav ailable VIJENDRA, ALEKSANDRA Referring Unavailable HIMA VALLES Attending Unavailable VIJENDRA, ALEKSANDRA Referring Unavailable BARB, KAY Referring Unavailable BARRIOS, SHAGGY Attending Unavailable CHRISTY, SAMEChela Attending Unavailable VIJENDRA, ALEKSANDRA Referring Unavailable HAMMONDS BEAL, JESSA Referring Unav ailable HAMMONDS BEAL, JESSA Attending Unav ailable HAMMONDS BEAL, JESSA Attending Unav ailable HAMMONDS BEAL, JESSA Attending Unav ailable WILLIAM GAMBINO Referring Unavailable TRAVIS, LASHONDA Attending Unavailable NADIA, AMBER Attending Unavailable MARUKAY Faith Admitting Unavailable EKWENNA, OBI Attending Unavailable EKWENNA, OBI Admitting Unavailable NAZZAL, LEDY Attending Unavailable NAZZAL, LEDY Admitting Unavailable ROSY, JAS Referring Unavailable VIJENDRA, ALEKSANDRA Referring Unavailable VIJENDRA, ALEKSANDRA Attending Unavailable VIJENDRA, ALEKSANDRA Referring Unavailable VIJENDRA, ALEKSANDRA Referring Unavailable EKWENNA, OBI Attending Unavailable VIJENDRA, ALEKSANDRA Referring Unavailable NAZZAL, LEDY Attending Unavailable MOUKARBELCLINTON Attending Unavailable ROSY, JAS Referring Unavailable MOUKARBELCLINTON Attending Unavailable MOUKARBELCLINTON Attending Unavailable VIJENDRA, ALEKSANDRA Referring Unavailable VIJENDRA, ALEKSANDRA Referring Unavailable VIJENDRA, ALEKSANDRA Referring Unavailable JAIME GOLDEN Attending Unavailable EKWENNA, OBI Attending Unavailable VIJENDRA, ALEKSANDRA Referring Unavailable EKWENNA, OBI Attending Unavailable HAMMONDS BEAL, JESSA Attending Unav ailable Allergies Allergy Classification Reported Allergen(s) Allergy Type Date of Onset Reaction(s) Facility (1 source) 47715,00; Translations: [79622,00] Propensity to adverse reactions (disorder) 9 [facility] Repository Medications Current Medications Medication Drug [...] Administer if oral route cannot be used. amitriptyline hydrochloride 150 mg oral tablet (19 sources) Tricyclic Antidepressant Start: 02-28-2024 take 1 tablet by mouth at bedtime amitriptyline (Elavil) 150 MG tablet Indications: Type 2 diabetes mellitus with diabetic polyneuropathy (CMS/HCC) TAKE 1 TABLET BY MOUTH AT BEDTIME 90 tablet 3 02/28/2024 Active AMITRIPTYLINE HC L PO Take 150 mg by mouth 0 Active aspirin 81 mg chewable tablet (15 sources) Platelet Aggregation Inhibitor, Nonsteroidal Anti-inflammatory Drug [...] at Discharge) atorvastatin 40 mg oral tablet (20 sources) HMG-CoA Reductase Inhibitor Start: 08-13-2023 take [...] Monitoring Suppl (FreeStyle InsuLinx System) w/Device kit (12 sources) Blood Glucose Monitoring Suppl (FreeStyle InsuLinx [...] 0 Active clopidogrel 75 mg oral tablet (20 sources) P2Y12 Platelet Inhibitor Start: 12-13-2023 take 1 tablet by mouth once daily clopidogrel (Plavix) 75 MG tablet Indications: PVD (peripheral vascular disease) ([facility]) TAKE 1 TABLET BY MOUTH EVERY DAY [...] 0 10/31/2019 Discontinued (Stop Taking at Discharge) cyclobenzaprine hydrochloride 10 mg oral tablet (3 sources) Muscle Relaxant Start: 09-26-2024 take 1 tablet by mouth three times daily as needed for muscle spasms cyclobenzaprine (Flexeril) 10 MG tablet Indications: Muscle spasm of back Take 1 tablet (10 mg) by mouth 3 (three) times a day as needed for muscle spasms 30 tablet 1 09/26/2024 Active Start: 09-26-2024 take 1 tablet by manny th three times daily as needed for muscle spasms cyclobenzaprine (Flexeril) 10 MG tablet Indications: Muscle spasm of back Take 1 tablet (10 mg) by mouth 3 (three) times a day as needed for muscle spasms 30 tablet 1 09/26/2024 Active dapagliflozin 10 mg oral tablet (12 sources) Sodium-Glucose Cotransporter 2 Inhibitor Start: 07-10-2024 take 1 tablet by mouth once daily Farxiga 10 MG Indications: Type 2 diabetes mellitus with hyperglycemia (CMS/HCC) TAKE 1 TABLET BY MOUTH EVERY DAY 30 tablet 2 07/10/2024 Active Start: 10-12-2023 take 1 tablet by manny th once daily Farxiga 10 MG Indications: Type 2 diabetes mellitus with hyperglycemia (CMS/HCC) TAKE 1 TABLET BY MOUTH DAILY 30 tablet 5 10/12/2023 Active diclofenac sodium 0.01 mg/mg topical gel (10 sources) Nonsteroidal Anti-inflammatory Drug Start: 12-07-2019 diclofenac sodium 1 % GEL APPLY TO THE AFFECTED AREA(S) FOUR TIMES DAILY NEEDED (TRANSDERMALLY) 0 12/07/2019 Active End: 09-06-2024 diclofenac sodium (Voltaren) 1 % gel Apply 2 g topically 4 (four) times a day as needed for pain. 09/06/2024 Discontinued docusate sodium 100 mg oral capsule (11 sources) Start: 08-03-2023 End: 09-26-2024 take 2 capsules by mouth twice daily at bedtime docusate sodium (Colace) 100 MG capsule TAKE TWO CAPSULES BY MOUTH TWICE DAILY (IN THE MORNING AND AT BEDTIME) 08/03/2023 09/26/2024 Discontinued doxycycline hyclate 100 mg oral tablet (3 sources) Tetracycline-cla ss Drug Start: 09-17-2024 End: 09-26-2024 take 1 tablet by mouth in the morning doxycycline (Vibra-Tabs) 100 MG tablet Take 100 mg by mouth in the morning and 100 mg before bedtime. 09/17/2024 09/26/2024 Discontinued 0.4 ml enoxaparin sodium 100 mg/ml prefilled syringe (1 source) Low Molecular Weight Heparin Start: 10-31-2019 enoxaparin (LOVENOX) injection 40 mg furosemide 20 mg oral tablet (11 sources) Loop Diuretic Start: 08-19-2023 End: 08-18-2024 take 1 tablet by mouth in the morning furosemide (Lasix) 20 MG tablet Take 20 mg by mouth in the morning. 08/19/2023 Active gabapentin 100 mg oral capsule (20 sources) Anti-epileptic Agent Start: 04-24-2024 take 1 [...] at 2100 glipiZIDE 10 mg oral tablet (20 sources) Sulfonylurea Start: 07-28-2024 take 1 tablet [...] 4,000 Units hydrocortisone 10 mg oral tablet (11 sources) Corticosteroid Start: 07-12-2024 End: 10-19-2024 take [...] SBP > 140, Starting Wed10/30/19 at 2022 levoFLOXacin 750 mg oral tablet (3 sources) Quinolone Antimicrobial Start: 09-17-2024 End: 09-26-2024 levoFLOXacin (Levaquin) 750 MG tablet Take 250 mg by mouth every other day 09/17/2024 09/26/2024 Discontinued levothyroxine sodium 0.05 mg oral tablet (8 sources) l-Thyroxine Start: 07-28-2024 take 1 tablet [...] Active metoprolol tartrate 25 mg oral tablet (13 sources) beta-Adrenergic Neema Start: 07-12-2024 take 1 tablet by mouth in the morning metoprolol tartrate (Lopressor) 25 MG tablet Take 25 mg by mouth in the morning and 25 mg before bedtime. 07/12/2024 Active Start: 08-17-2023 End: 08-16-2024 take 1 tablet by mouth every twenty-four hours in the morning metoprolol succinate XL (Toprol-XL) 50 MG 24 hr tablet Take 25 mg by mouth in the morning. 08/17/2023 08/16/2024 Active Start: 04-25-2021 End: 04-30-2021 metoprolol tartrate [...] pantoprazole 40 mg delayed release oral tablet (20 sources) Proton Pump Inhibitor Start: 10-02-2024 take 1 tablet by mouth twice daily pantoprazole (ProtoNix) 40 MG EC tablet Indications: CAD, multiple vessel (CMS/HCC) TAKE 1 TABLET BY MOUTH TWICE A DAY 180 tablet 3 10/02/2024 Active Start: 07-06-2024 take 1 tablet by manny th twice daily pantoprazole (ProtoNix) 40 MG EC tablet Indications: CAD, multiple vessel (CMS/HCC) TAKE 1 TABLET BY MOUTH TWICE A DAY 90 tablet 1 07/06/2024 Active Start: 12-13-2023 take 1 tablet by manny th twice daily pantoprazole (ProtoNix) 40 MG EC tablet Indications: CAD, multiple vessel (CMS/HCC) TAKE 1 TABLET BY MOUTH TWICE DAILY 60 tablet 5 12/13/2023 Active Start: 05-03-2021 take [...] mg by mouth once daily Pantoprazole Sodium (KY OTONIX PO) Take 80 mg by mouth [...] mouth daily 0 Active polyethylene glycol 3350 [id number] mg powder for oral solution (1 source) [...] Active sodium bicarbonate 650 mg oral tablet (8 sources) take 1 tablet by mouth in [...] Active triamcinolone acetonide 5 mg/ml topical cream (12 sources) Corticosteroid triamcinolone (K enalog) 0.5 % [...] Sig (Normalized) Sig (Original) acetaminophen 325 mg / oxyCODONE hydrochloride 5 mg oral tablet (20 sources) Opioid Agonist Start: 05-30-2024 End: 11-15-2024 take 1 tablet by mouth four times daily as needed for pain oxyCODONE-acetaminop hen (Percocet) 5-325 MG tablet Indications: Type 2 diabetes mellitus with diabetic polyneuropathy (CMS/HCC) Take 1 tablet by mouth 4 (four) times a day as needed for severe pain 120 tablet 09/18/2024 10/16/2024 Discontinued (Reorder) Start: 10-31-2019 End: 10-31-2019 oxyCODONE-acetaminophen (PER COCET) 5-325 MG per tablet 2 tablet Start: 10-30-2019 take 2 tablets by [facility] every four hours as needed for pain 2 tablet, Oral, EVERY 4 HOURS PRN, Pain Moderate (4-6), Pain Severe (7-10), Starting 10/30/19 at 2057 Maximum dose of acetaminophen is 4000 mg from all sources in 24 hours. 2 ml fentaNYL 0.05 mg/ml injection (2 [...] Chronic Aortic; peripheral; and visceral artery aneurysms (14 sources) Aneurysm of thoracic aorta; Translations: [Aneurysm of thoracic aorta] Onset: 2 09-07-2023 Chronic Cancer of kidney and renal pelvis (14 sources) Renal cell carcinoma; Translations: [Malignant neoplasm of unspecified kidney, except renal pelvis] Onset: 4 03-15-2024 Chronic Chronic kidney disease (12 sources) Chronic kidney disease stage 3B ; Translations: [CKD stage 3b, GFR 30-44 ml/min] Onset: 4 03-15-2024 Chronic Chronic kidney disease (2 sources) Chronic kidney disease; Translations: [Chronic kidney disease, stage 3a] Onset: 4 Congestive heart failure; nonhypertensive (2 sources) Chronic systolic (congestive) heart failure; Translations: [Chronic systolic (congestive) heart failure] Onset: 4 Chronic Coronary atherosclerosis and other heart disease (20 sources) Multi vessel coronary artery disease; Translations: [Atherosclerotic heart disease of [place] coronary artery without angina pectoris] Onset: 1 Chronic Diabetes mellitus with complications (20 sources) Type 2 diabetes mellitus with hyperglycemia; Translations: [Type 2 diabetes mellitus with diabetic peripheral angiopathy without gangrene] Onset: 2 Chronic Diabetes mellitus without complication (3 sources) Secondary diabetes mellitus; Translations: [Type 2 diabetes mellitus] Onset: 1 Chronic Disorders of lipid metabolism (13 sources) Hyperlipidemia, unspecified; Translations: [Hyperlipidemia] Onset: 2 09-07-2023 Chronic Diverticulosis and diverticulitis (1 source) Diverticulosis of intestine, part unspecified, without perforation or abscess without bleeding; Translations: [DVRTCLOS PRT UNS NO PERF/ABSC NO BL] Onset: 2 Chronic Esophageal disorders (15 sources) Gastro-esophageal reflux disease without esophagitis; Translations: [Gastroesophageal reflux disease] Onset: 2 09-07-2023 Chronic Essential hypertension (17 sources) Essential (primary) hypertension; Translations: [Benign essential hypertension] Onset: 2 09-07-2023 Chronic Fluid and electrolyte disorders (6 sources) Hypokalemia; Translations: [Hypokalemia] Onset: 1 Episodic Late effects of cerebrovascular disease (10 sources) Left hemiparesis; Translations: [Hemiplegia and hemiparesis [...] D deficiency, unspecified] Onset: 4 Chronic Osteoarthritis (12 sources) Chronic osteoarthritis; Translations: [Unspecified osteoarthritis, unspecified site] Onset: 3 09-07-2023 Chronic Other aftercare (2 sources) 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; Translations: [prison (current) use of anticoagulants] Episodic Other and ill-defined cerebrovascular disease (1 source) Cerebrovascular disease, unspecified; Translations: [CEREBROVASCULAR DISEASE UNSPECIFIED] Onset: 2 Chronic Other circulatory disease (2 sources) Presence of other vascular implants and grafts; Translations: [Presence of other vascular implants and grafts] Onset: 4 Chronic Other diseases of kidney and ureters (2 sources) Other specified disorders of kidney and ureter; Translations: [Other specified disorders of kidney and ureter] Onset: 4 Chronic Other endocrine disorders (10 sources) Hypoadrenalism; 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 insufficiency] Onset: 4 09-06-2024 Chronic Other endocrine disorders (2 sources) Unspecified adrenocortical insufficiency; 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 insufficiency] Onset: 4 Chronic Other endocrine disorders (2 sources) Drug-induced adrenocortical insufficiency; Translations: [Drug-induced adrenocortical insufficiency] Onset: 4 Chronic Other endocrine disorders (2 sources) Hyperparathyroidism, unspecified; Translations: [Hyperparathyroidism, unspecified] Onset: 4 Chronic Other gastrointestinal disorders (2 sources) History of gastrointestinal bleed; Translations: [Personal history of other diseases of the digestive system] Episodic Other liver diseases (2 sources) Unspecified jaundice; Translations: [Unspecified jaundice] Onset: 4 Episodic Other nervous system disorders (1 source) Intracranial space-occupying lesion; Translations: [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] Episodic Other nutritional; endocrine; and metabolic disorders (2 sources) Hypomagnesemia; Translations: [Hypomagnesemia] Onset: 1 Chronic Other nutritional; endocrine; and metabolic disorders (2 sources) Hypercalcemia; Translations: [Hypercalcemia] Onset: 4 Chronic Peripheral and visceral atherosclerosis (14 sources) Peripheral vascular disease; Translations: [Peripheral vascular disease, unspecified] Onset: 2 09-07-2023 Chronic Pneumonia (except that caused by tuberculosis or sexually transmitted disease) (5 sources) Pneumonia; Translations: [Pneumonia, unspecified organism] Onset: 4 09-26-2024 Episodic Residual codes; unclassified (6 sources) Memory impairment; Translations: [Other amnesia] 05-08-2020 Episodic Residual codes; unclassified (2 sources) Altered mental status; Translations: [Altered mental status, unspecified] Episodic Spondylosis; intervertebral disc disorders; other back problems (2 sources) Discitis; Translations: [Discitis, unspecified, lumbosacral region] Onset: 1 Chronic Spondylosis; intervertebral disc disorders; other back problems (5 sources) Spasm of back muscles; Translations: [Muscle spasm of back] Onset: 4 09-26-2024 Episodic Substance-related disorders (1 source) Nicotine dependence, cigarettes, uncomplicated; Translations: [NICOTINE DEPEND CIGARETTES UNCOMP] Onset: 2 Chronic Thyroid disorders (12 sources) Hypothyroidism caused by drug; Translations: [Hypothyroidism due to medicaments and other exogenous substances] Onset: 4 09-06-2024 Chronic Unclassified (1 source) CONTACT W/AND (SUSP) [...] Other Problems Problem Classification Problem Date Documented Da te Episodic/Chronic Abdominal pain (4 sources) Unspecified abdominal pain; Translations: [UNSPECIFIED ABDOMINAL PAIN] Onset: 09-02-2022 Episodic Biliary tract disease (1 source) Acute cholecystitis; Translations: [ACUTE CHOLECYSTITIS] Onset: 09-04-2022 Episodic Cardiac dysrhythmias (1 source) Tachycardia, unspecified; Translations: [TACHYCARDIA UNSPECIFIED] Onset: 09-04-2022 Episodic Conditions associated with dizziness or vertigo (2 sources) Dizziness and giddiness; Translations: [Dizziness and giddiness] Onset: 07-09-2024 Episodic Coronary atherosclerosis and other heart disease (6 sources) Patient post percutaneous transluminal coronary angioplasty; Translations: [Coronary angioplasty status] Onset: 05-02-2021 Episodic Malaise and fatigue (1 source) Weakness; Translations: [WEAKNESS] Onset: 09-04-2022 Episodic Nausea and vomiting (1 source) Vomiting, unspecified; Translations: [VOMITING UNSPECIFIED] Onset: 09-04-2022 Episodic Nonspecific chest pain (1 source) Chest pain, unspecified; Translations: [CHEST PAIN UNSPECIFIED] Onset: 09-04-2022 Episodic Other aftercare (3 sources) Other 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; Translations: [OTH HALFWAY CURRENT DRUG THERAPY] Onset: 11-22-2022 Episodic Other aftercare (1 source) prison (current) use of oral hypoglycemic drugs; Translations: [WATCH MECHANIC USE ORAL HYPOGLYCEMIC DX] Onset: 09-04-2022 Episodic Other aftercare (2 sources) Encounter for other specified aftercare; Translations: [Encounter for other specified aftercare] Onset: 12-09-2023 Episodic Other aftercare (2 sources) Encounter for adjustment and management of vascular access device; Translations: [Encounter for adjustment and management of vascular access device] Onset: 12-08-2023 Episodic Other circulatory disease (2 sources) Other hypotension; Translations: [Other hypotension] Onset: 06-30-2024 Episodic Other circulatory disease (2 sources) Hypotension, unspecified; Translations: [Hypotension, unspecified] Onset: 06-30-2024 Episodic Other circulatory disease (2 sources) Personal [...] Onset: 12-29-2023 Episodic Other fractures (2 sources) Wedge compression fracture of first lumbar vertebra, subsequent encounter for fracture with routine healing; Translations: [Wedge compression fracture of first lumbar vertebra, subsequent encounter for fracture with routine healing] Onset: 06-07-2024 Episodic Other fractures (2 sources) Wedge compression fracture of first lumbar vertebra, sequela; Translations: [Wedge compression fracture of first lumbar vertebra, sequela] Onset: 06-06-2024 Episodic Other fractures (2 sources) Collapsed vertebra, not elsewhere classified, lumbar region, subsequent encounter for fracture with routine healing; Translations: [Collapsed vertebra, not elsewhere classified, lumbar region, subsequent encounter for fracture with routine healing] Onset: 05-18-2024 Episodic Other injuries and conditions due to external causes (12 sources) At high risk for fall; Translations: [History of falling] Onset: 09-07-2023 09-07-2023 Episodic Other lower respiratory disease (1 source) Shortness of breath; Translations: [SHORTNESS OF BREATH] Onset: 09-04-2022 Episodic Other lower respiratory disease (2 sources) Other nonspecific abnormal finding of lung field; Translations: [Other nonspecific abnormal finding of lung field] Onset: 06-28-2024 Episodic Other lower respiratory disease (2 sources) Solitary pulmonary nodule; Translations: [Solitary pulmonary nodule] Onset: 09-14-2023 Episodic Other nervous system disorders (2 sources) Other acute postprocedural pain; Translations: [Other acute postprocedural pain] Onset: 12-16-2023 Episodic Other screening for suspected conditions (not mental disorders or infectious disease) (3 sources) Encounter for screening for malignant neoplasm of prostate; Translations: [Other specified abnormal findings of blood chemistry] Onset: 11-19-2022 Episodic Pleurisy; pneumothorax; pulmonary collapse (12 sources) Atelectasis; Translations: [Atelectasis] Onset: 07-30-2023 09-07-2023 Episodic Residual codes; unclassified (1 source) Acquired absence of other specified parts of digestive tract; Translations: [ACQ ABSENCE OTH PART DIGESTV TRACT] Onset: 10-01-2022 Episodic Residual codes; unclassified (12 sources) Insomnia; Translations: [Insomnia, unspecified] Onset: 09-07-2023 09-07-2023 Episodic Residual codes; unclassified (2 sources) Acquired absence of kidney; Translations: [Acquired absence of kidney] Onset: 01-13-2024 Episodic Septicemia (except in labor) (1 source) [...] of the ascending aorta, without rupture] Onset: 10-20-2024 Unclassified (1 source) Thoracic aortic aneurysm, without rupture, unspecified; Translations: [Thoracic aortic aneurysm, without rupture, unspecified] Onset: 02-25-2024 Results Test Name Value Interpretation Reference Range Facility 30on 07-10-2024 30 The patient is Moder ately Stable - Low risk of patient condition declining or worsening The patient's goals for the shift include Sleep, rest The clinical goals for the shift include Comfort, safety, sleep Normal [facility] BASIC METABOLIC PANELon 06-19 Anion gap [Moles/Vol] 9 mmol/L Normal 7-20 [facility] Comment on above: Performed By: #### L [id number] ####[facility] (BEAKER)[address] [place] [address] Calcium [Mass/Vol] 9.4 mg/dL Normal 8.6-10.3 [facility] Comment on above: Performed By: #### L AB15 ####[facility] (BEAKER)[address] [place] [address] Chloride [Moles/Vol] 106 mmol/L Normal 98-107 [facility] Comment on above: Performed By: #### L AB15 ####[facility] (BEAKER)[address] [place] [address] CO2 [Moles/Vol] 24 mmol/L Normal 21-31 [facility] Comment on above: Performed By: #### L AB15 ####[facility] (BEAKER)[address] [place] [address] Creatinine [Mass/Vol] 1.95 mg/dL High 0.70-1.30 [facility] Comment on above: Performed By: #### L AB15 ####[facility] (BEAKER)[address] [place] [address] GLOMERULAR FILTRATION RATE ML/MIN/1.73 SQ M.PREDICTED 37.2 mL/min/1.73m*2 Low >60.0 [facility] [facility] Comment on above: Result Comment: The [facility]???s estimated glomerular filtration rate (eGFR) will [...] of individuals. Performed By: #### L [id number] ####[facility] ([facility])[address] [place] [address] Glucose [Mass/Vol] 136 mg/dL High 70-100 [facility] Comment on above: Performed By: #### L [id number] ####[facility] ([facility])[address] [place] [address] Potassium [Moles/Vol] 4.1 mmol/L Normal 3.5-5.1 [facility] Comment on above: Performed By: #### L [id number] ####[facility] ([facility])[address] [place] [address] Sodium [Moles/Vol] 135 mmol/L Low 136-145 [facility] Comment on above: Performed By: #### L [id number] ####[facility] ([facility])[address] [place] [address] Urea nitrogen [Mass/Vol] 26 mg/dL High 7-25 [facility] Comment on above: Performed By: #### L [id number] ####[facility] ([facility])[address] [place] [address] UREA NITROGEN/CREATININE (MASS RATIO) IN SER/PLAS 13.3 Normal [facility] Comment on above: Performed By: #### L [id number] ####[facility] ([facility])[address] [place] [address] CBCon 07-10-2024 Erythrocyte distribution width (RBC) [Ratio] 14.6 % Normal 11.5-15.0 [facility] Comment on above: Performed By: #### L [id number] ####[facility] ([facility])[address] [place] [address] ERYTHROCYTE MEAN CORPUSCULAR HEMOGLOBIN CONCENTRATION (G/DL) BY AUTOMATED 33.5 g/dL Normal 32.0-35.0 [facility] Comment on above: Performed By: #### L [id number] ####[facility] ([facility])[address] [place] [address] Hematocrit (Bld) [Volume fraction] 36.4 % Low 39.0-55.0 [facility] Comment on above: Performed By: #### L [id number] ####[facility] ([facility])[address] [place] [address] Hemoglobin (Bld) [Mass/Vol] 12.2 g/dL Low 13.0-17.0 [facility] Comment on above: Performed By: #### L [id number] ####[facility] ([facility])[address] [place] [address] MCH (RBC) [Entitic mass] 30.0 pg Normal 27.0-33.0 [facility] Comment on above: Performed By: #### L [id number] ####[facility] ([facility])[address] [place] [address] MCV (RBC) [Entitic vol] 89.4 fL Normal 82.0-98.0 [facility] Comment on above: Performed By: #### L [id number] ####[facility] ([facility])[address] [place] [address] PLATELETS (10*3/UL) IN BLOOD AUTOMATED COUNT 272 10*3/uL Normal 150-400 [facility] Comment on above: Performed By: #### L [id number] ####[facility] ([facility])[address] [place] [address] RBC (Bld) [#/Vol] 4.07 10*6/uL Low 4.20-5.70 [facility] Comment on above: Performed By: #### L [id number] ####[facility] ([facility])[address] [place] [address] WBC (Bld) [#/Vol] 5.73 10*3/uL Normal 4.00-10.60 [facility] Comment on above: Performed By: #### L [id number] ####[facility] ([facility])[address] [place] [address] CORTISOLon 07-10-2024 CORTISOL (UG/DL) IN SER/PLAS 2.0 ug/dL Low 6-23 [facility] Comment on above: Performed By: #### L [id number] ####[facility] ([facility])[address] [place] [address] AMMONIAon 07-09-2024 AMMONIA (UMOL/L) IN PLASMA 28 umol/L Normal 18-72 [facility] Comment on above: Performed By: #### L [id number] ####[facility] ([facility])[address] [place] [address] APTTon 07-09-2024 ACTIVATED PARTIAL THROMBOPLASTIN TIME IN PPP BY COAGULATION ASSAY 93.8 Seconds High 25.0-35.0 [facility] Comment on above: Result Comment: Clin ical significance of the APTT is questionable in the presence of heparin. Performed By: #### L [id number] ####[facility] ([facility])[address] [place] [address] CALCIUM, IONIZEDon CALCIUM IONIZED (MMOL/L) IN BLOOD 1.16 mmol/L Normal 1.15-1.33 [facility] Comment on above: Performed By: #### L [id number] ####[facility] [id number] [place] [address] [place] CBC WITH AUTO DIFFERENTIALon 07-09-2024 Basophils (Bld) [#/Vol] 0.04 10*3/uL Normal 0.00-0.20 [facility] Comment on above: Performed By: #### L [id number] ####[facility] ([facility]ER)[address] [place] [address] Basophils/100 WBC (Bld) 0.6 % Normal 0.0-1.0 [facility] Comment on above: Performed By: #### L [id number] ####[facility] ([facility])[address] [place] [address] Eosinophils (Bld) [#/Vol] 0.17 10*3/uL Normal 0.00-0.50 [facility] Comment on above: Performed By: #### L [id number] ####[facility] ([facility])[address] [place] [address] Eosinophils/100 WBC (Bld) 2.7 % Normal 0.0-6.0 [facility] Comment on above: Performed By: #### L [id number] ####[facility] ([facility])[address] [place] [address] Erythrocyte distribution width (RBC) [Ratio] 14.7 % Normal 11.5-15.0 [facility] Comment on above: Performed By: #### L [id number] ####[facility] ([facility])[address] [place] [address] ERYTHROCYTE MEAN CORPUSCULAR HEMOGLOBIN CONCENTRATION (G/DL) BY AUTOMATED 33.8 g/dL Normal 32.0-35.0 [facility] Comment on above: Performed By: #### L [id number] ####[facility] ([facility])[address] [place] [address] Hematocrit (Bld) [Volume fraction] 37.9 % Low 39.0-55.0 [facility] Comment on above: Performed By: #### L [id number] ####[facility] ([facility])[address] [place] [address] Hemoglobin (Bld) [Mass/Vol] 12.8 g/dL Low 13.0-17.0 [facility] Comment on above: Performed By: #### L [id number] ####[facility] ([facility])[address] [place] [address] Immature granulocytes (Bld) [#/Vol] 0.02 10*3/uL Normal 0.00-0.20 [facility] Comment on above: Performed By: #### L [id number] ####[facility] ([facility])[address] [place] [address] Immature granulocytes/100 WBC (Bld) 0.3 % Normal 0.0-1.0 [facility] Comment on above: Performed By: #### L [id number] ####[facility] ([facility])[address] [place] [address] Lymphocytes (Bld) [#/Vol] 1.64 10*3/uL Normal 1.20-4.00 [facility] Comment on above: Performed By: #### L [id number] ####[facility] ([facility])[address] [place] [address] Lymphocytes/100 WBC (Bld) 26.0 % Normal 20.0-45.0 [facility] Comment on above: Performed By: #### L [id number] ####[facility] ([facility])[address] [place] [address] MCH (RBC) [Entitic mass] 29.8 pg Normal 27.0-33.0 [facility] Comment on above: Performed By: #### L [id number] ####[facility] ([facility])[address] [place] [address] MCV (RBC) [Entitic vol] 88.3 fL Normal 82.0-98.0 [facility] Comment on above: Performed By: #### L [id number] ####[facility] ([facility])[address] [place] [address] Monocytes (Bld) [#/Vol] 0.59 10*3/uL Normal 0.10-1.00 [facility] Comment on above: Performed By: #### L [id number] ####[facility] ([facility])[address] [place] [address] Monocytes/100 WBC (Bld) 9.4 % Normal 5.0-12.0 [facility] Comment on above: Performed By: #### L [id number] ####[facility] ([facility])[address] [place] [address] Neutrophils (Bld) [#/Vol] 3.85 10*3/uL Normal 1.60-7.60 [facility] Comment on above: Performed By: #### L [id number] ####[facility] ([facility])[address] [place] [address] Neutrophils/100 WBC (Bld) 61.0 % Normal 40.0-72.0 [facility] Comment on above: Performed By: #### L [id number] ####[facility] ([facility])[address] [place] [address] NRBC (PER 100 WBCS) BY AUTOMATED COUNT 0.0 % Normal 0 [facility] Comment on above: Performed By: #### L [id number] ####[facility] ([facility])[address] [place] [address] PLATELETS (10*3/UL) IN BLOOD AUTOMATED COUNT 324 10*3/uL Normal 150-400 [facility] Comment on above: Performed By: #### L [id number] ####[facility] ([facility])[address] [place] [address] RBC (Bld) [#/Vol] 4.29 10*6/uL Normal 4.20-5.70 [facility] Comment on above: Performed By: #### L [id number] ####[facility] ([facility])[address] [place] [address] WBC (Bld) [#/Vol] 6.31 10*3/uL Normal 4.00-10.60 [facility] Comment on above: Performed By: #### L [id number] ####[facility] ([facility])[address] [place] [address] COMPREHENSIVE METABOLIC PANE Sonido 07-09-2024 Albumin [Mass/Vol] 3.7 g/dL Normal 3.5-5.7 [facility] Comment on above: Performed By: #### L [id number] ####[facility] ([facility])[address] [place] [address] ALP [Catalytic activity/Vol] 91 U/L Normal 34-104 [facility] Comment on above: Performed By: #### L [id number] ####[facility] ([facility])[address] [place] [address] ALT [Catalytic activity/Vol] 14 U/L Normal 7-52 [facility] Comment on above: Performed By: #### L [id number] ####[facility] ([facility])[address] [place] [address] Anion gap [Moles/Vol] 14 mmol/L Normal 7-20 [facility] Comment on above: Performed By: #### L [id number] ####[facility] ([facility])[address] [place] [address] AST [Catalytic activity/Vol] 14 U/L Normal 13-39 [facility] Comment on above: Performed By: #### L [id number] ####[facility] ([facility])[address] [place] [address] Bilirubin [Mass/Vol] 0.7 mg/dL Normal 0.3-1.0 [facility] Comment on above: Performed By: #### L [id number] ####[facility] ([facility])[address] [place] [address] Calcium [Mass/Vol] 10.0 mg/dL Normal 8.6-10.3 [facility] Comment on above: Performed By: #### L [id number] ####[facility] ([facility])[address] [place] [address] Chloride [Moles/Vol] 100 mmol/L Normal 98-107 [facility] Comment on above: Performed By: #### L [id number] ####[facility] ([facility])[address] [place] [address] CO2 [Moles/Vol] 23 mmol/L Normal 21-31 [facility] Comment on above: Performed By: #### L [id number] ####[facility] ([facility])[address] [place] [address] Creatinine [Mass/Vol] 2.27 mg/dL High 0.70-1.30 [facility] Comment on above: Performed By: #### L [id number] ####[facility] ([facility])[address] [place] [address] GLOMERULAR FILTRATION RATE ML/MIN/1.73 SQ M.PREDICTED 31.0 mL/min/1.73m*2 Low >60.0 [facility] Comment on above: Result Comment: The [facility]???s estimated glomerular filtration rate (eGFR) will [...] of individuals. Performed By: #### L [id number] ####[facility] ([facility])[address] [place] [address] Glucose [Mass/Vol] 245 mg/dL High 70-100 [facility] Comment on above: Performed By: #### L [id number] ####[facility] ([facility])[address] [place] [address] Potassium [Moles/Vol] 4.4 mmol/L Normal 3.5-5.1 [facility] Comment on above: Performed By: #### L [id number] ####[facility] ([facility])[address] [place] [address] Protein [Mass/Vol] 7.5 g/dL Normal 6.0-8.3 [facility] Comment on above: Performed By: #### L [id number] ####[facility] ([facility])[address] [place] [address] Sodium [Moles/Vol] 133 mmol/L Low 136-145 [facility] Comment on above: Performed By: #### L [id number] ####[facility] ([facility])[address] [place] [address] Urea nitrogen [Mass/Vol] 28 mg/dL High 7-25 [facility] Comment on above: Performed By: #### L [id number] ####[facility] ([facility])[address] [place] [address] UREA NITROGEN/CREATININE (MASS RATIO) IN SER/PLAS 12.3 Normal [facility] Comment on above: Performed By: #### L [id number] ####[facility] ([facility])[address] [place] [address] CT HEAD WO IV CONTRASTon CT HEAD WO IV CONTRAST Normal [facility]2024 EDNURS states pt was s een a week ago Wednesday for ketruda infusion. Was hypotensive at that time and given fluid. Dr sykes wanted pt to come to ed for eval at that time, but pt declined. Today states his bp was 82/56 with a HR 107. Normal [facility] EDPROVon 07-09-2024 EDPROV Normal [facility] HPon 07-09-2024 HP Normal [facility] LACTIC ACID WITH 4 HOUR REFL EXon 07-09-2024 LACTATE (MMOL/L) IN SER/PLAS 1.1 mmol/L Normal 0.5-2.2 [facility] Comment on above: Performed By: #### L [id number] ####[facility] ([facility])[address] [place] [address] PHOSPHORUSon 07-09-2024 Magnesium [Mass/Vol] 4.5 mg/dL Normal 2.5-5.0 [facility] Comment on above: Performed By: #### L [id number] ####[facility] ([facility])[address] [place] [address] PROTIME-INRon 07-09-2024 INR IN PPP BY COAGULATION ASSAY 1.10 Normal 0.90-1.10 [facility] Comment on above: Result Comment: [facility] P RECOMMENDED INR FOR WARFARIN THERAPY CONDITION INRPROPHYLAXIS OF VENOUS THROMBOSIS 2-3(HIGH-RISK SURGERY)TREATMENT OF VENOUS THROMBOSIS 2-3TREATMENT OF PULMONARY EMBOLISM 2-3PREVENTION OF SYSTEMIC EMBOLISM: 2-3 ACUTE MYOCARDIAL INFARCTION TISSUE HEART VALVES VALVULAR HEART DISEASE ATRIAL FIBRILLATION RECURRENT SYSTEMIC EMBOLISMMECHANICAL HEART VALVE 2.5-3.5 FROM: ORAL ANTICOAGULANTS. MECHANISM OF ACTION, CLINICAL EFFECTIVENESS, AND OPTIMAL THERAPEUTIC RANGE. CHEST 1995;108:[id number]. Performed By: #### L [id number] ####[facility] ([facility])[address] [place] [address] PROTHROMBIN TIME (PT) IN PPP BY COAGULATION ASSAY 14.2 Seconds Normal 12.3-14.8 [facility] Comment on above: Performed By: #### L [id number] ####[facility] ([facility])[address] [place] [address] PTH, INTACTon 07-09-2024 PARATHYRIN INTACT (PG/ML) IN SER/PLAS 129 pg/mL High 12-88 [facility] Comment on above: Performed By: #### L [id number] ####[facility] ([facility])[address] [place] [address] T3, FREEon 07-09-2024 TRIIODOTHYRONINE (T3) FREE (PG/ML) IN SER/PLAS 3.1 pg/mL Normal 2.5-3.9 [facility] Comment on above: Performed By: #### L [id number] ####[facility] ([facility])[address] [place] [address] T4, FREEon 07-09-2024 THYROXINE (T4) FREE (NG/DL) IN SER/PLAS 0.53 ng/dL Low 0.71-1.85 [facility] Comment on above: Performed By: #### L [id number] ####[facility] ([facility])[address] [place] [address] TROPONIN Ion 07-09-2024 Troponin I.cardiac [Mass/Vol] 0.01 ng/mL Normal 0.00-0.04 [facility] Comment on above: Performed By: #### L [id number] ####[facility] ([facility])[address] [place] [address] TSH3 REFLEX TO FT4on 024 THYROTROPIN (MIU/L) IN SER/PLAS BY DETECTION LIMIT <= 0.05 MIU/L 0.10 mIU/L Low 0.34-5.60 [facility] Comment on above: Performed By: #### L [id number] ####[facility] ([facility])[address] [place] [address] URINALYSIS WITH REFLEX CULTU REon 07-09-2024 BILIRUBIN, TOTAL PRESENCE IN URINE Negative Normal Negative [facility] Comment on above: Order Comment: Micro scopics not performed on urines with negative chemical reactions unless requested on original order. Performed By: #### L [id number] ####[facility] ([facility])[address] [place] [address] Clarity (U) Clear Normal Clear [facility] Comment on above: Order Comment: Micro scopics not performed on urines with negative chemical reactions unless requested on original order. Performed By: #### L [id number] ####[facility] ([facility])[address] [place] [address] Color (U) Yellow Normal Yellow [facility] Comment on above: Order Comment: Micro scopics not performed on urines with negative chemical reactions unless requested on original order. Performed By: #### L [id number] ####[facility] ([facility])[address] [place] [address] Glucose (U) [Mass/Vol] mg/dL Abnormal Negative Un [facility] Comment on above: Order Comment: Micro scopics not performed on urines with negative chemical reactions unless requested on original order. Performed By: #### L [id number] ####[facility] ([facility])[address] [place] [address] HEMOGLOBIN PRESENCE IN URINE Negative Normal Negative [facility] Comment on above: Order Comment: Micro scopics not performed on urines with negative chemical reactions unless requested on original order. Performed By: #### L [id number] ####[facility] ([facility])[address] [place] [address] Ketones Ql (U) Negative Normal Negative [facility] Comment on above: Order Comment: Micro scopics not performed on urines with negative chemical reactions unless requested on original order. Performed By: #### L [id number] ####[facility] ([facility])[address] [place] [address] LEUKOCYTE ESTERASE PRESENCE IN URINE BY TEST STRIP Negative Normal Negative [facility] Comment on above: Order Comment: Micro scopics not performed on urines with negative chemical reactions unless requested on original order. Performed By: #### L [id number] ####[facility] ([facility])[address] [place] [address] NITRITE PRESENCE IN URINE Negative Normal Negative [facility] Comment on above: Order Comment: Micro scopics not performed on urines with negative chemical reactions unless requested on original order. Performed By: #### L [id number] ####[facility] ([facility])[address] [place] [address] pH (U) 5.0 [pH] Normal 5.0-8.0 [facility] Comment on above: Order Comment: Micro scopics not performed on urines with negative chemical reactions unless requested on original order. Performed By: #### L [id number] ####[facility] ([facility])[address] [place] [address] Protein (U) [Mass/Vol] Negative Normal Negative Un [facility] Comment on above: Order Comment: Micro scopics not performed on urines with negative chemical reactions unless requested on original order. Performed By: #### L [id number] ####[facility] ([facility])[address] [place] [address] Specific gravity (U) [Rel density] 1.020 Normal 1.015-1.02 0 [facility] Comment on above: Order Comment: Micro scopics not performed on urines with negative chemical reactions unless requested on original order. Performed By: #### L [id number] ####[facility] ([facility])[address] [place] [address] 36on 06-30-2024 36 Spoke with patient's and she will take him to the ED right now. Normal [facility] Telephoneon 06-30-2024 Telephone Normal [facility] CBC WITH AUTO DIFFERENTIALon 06-29-2024 Basophils (Bld) [#/Vol] 0.04 10*3/uL Normal 0.00-0.20 [facility] Comment on above: Performed By: #### L [id number] ####[facility] ([facility])[address] [place] [address] Basophils/100 WBC (Bld) 0.5 % Normal 0.0-1.0 U [facility] Comment on above: Performed By: #### L [id number] ####[facility] ([facility])[address] [place] [address] Eosinophils (Bld) [#/Vol] 0.14 10*3/uL Normal 0.00-0.50 [facility] Comment on above: Performed By: #### L [id number] ####[facility] ([facility])[address] [place] [address] Eosinophils/100 WBC (Bld) 1.8 % Normal 0.0-6.0 [facility] Comment on above: Performed By: #### L [id number] ####[facility] ([facility])[address] [place] [address] Erythrocyte distribution width (RBC) [Ratio] 14.9 % Normal 11.5-15.0 [facility] Comment on above: Performed By: #### L [id number] ####[facility] ([facility])[address] [place] [address] ERYTHROCYTE MEAN CORPUSCULAR HEMOGLOBIN CONCENTRATION (G/DL) BY AUTOMATED 33.5 g/dL Normal 32.0-35.0 [facility] Comment on above: Performed By: #### L [id number] ####[facility] ([facility])[address] [place] [address] Hematocrit (Bld) [Volume fraction] 40.9 % Normal 39.0-55.0 [facility] Comment on above: Performed By: #### L [id number] ####[facility] ([facility])[address] [place] [address] Hemoglobin (Bld) [Mass/Vol] 13.7 g/dL Normal 13.0-17.0 [facility] Comment on above: Performed By: #### L [id number] ####[facility] ([facility])[address] [place] [address] Immature granulocytes (Bld) [#/Vol] 0.02 10*3/uL Normal 0.00-0.20 [facility] Comment on above: Performed By: #### L [id number] ####[facility] ([facility])[address] [place] [address] Immature granulocytes/100 WBC (Bld) 0.3 % Normal 0.0-1.0 [facility] Comment on above: Performed By: #### L [id number] ####[facility] ([facility])[address] [place] [address] Lymphocytes (Bld) [#/Vol] 2.27 10*3/uL Normal 1.20-4.00 [facility] Comment on above: Performed By: #### L [id number] ####[facility] ([facility])[address] [place] [address] Lymphocytes/100 WBC (Bld) 30.0 % Normal 20.0-45.0 [facility] Comment on above: Performed By: #### L [id number] ####[facility] ([facility])[address] [place] [address] MCH (RBC) [Entitic mass] 30.0 pg Normal 27.0-33.0 [facility] Comment on above: Performed By: #### L [id number] ####[facility] ([facility])[address] [place] [address] MCV (RBC) [Entitic vol] 89.7 fL Normal 82.0-98.0 U [facility] Comment on above: Performed By: #### L [id number] ####[facility] ([facility])[address] [place] [address] Monocytes (Bld) [#/Vol] 0.67 10*3/uL Normal 0.10-1.00 [facility] Comment on above: Performed By: #### L [id number] ####[facility] ([facility])[address] [place] [address] Monocytes/100 WBC (Bld) 8.9 % Normal 5.0-12.0 U [facility] Comment on above: Performed By: #### L [id number] ####[facility] ([facility])[address] [place] [address] Neutrophils (Bld) [#/Vol] 4.43 10*3/uL Normal 1.60-7.60 [facility] Comment on above: Performed By: #### L [id number] ####[facility] ([facility])[address] [place] [address] Neutrophils/100 WBC (Bld) 58.5 % Normal 40.0-72.0 [facility] Comment on above: Performed By: #### L [id number] ####[facility] ([facility])[address] [address] NRBC (PER 100 WBCS) BY AUTOMATED COUNT 0.0 % Normal 0 [facility] Comment on above: Performed By: #### L [id number] ####[facility] ([facility])[address] [address] PLATELETS (10*3/UL) IN BLOOD AUTOMATED COUNT 291 10*3/uL Normal 150-400 [facility] Comment on above: Performed By: #### L [id number] ####[facility] ([facility])[address] [place] [address] RBC (Bld) [#/Vol] 4.56 10*6/uL Normal 4.20-5.70 [facility] Comment on above: Performed By: #### L [id number] ####[facility] ([facility])[address] [address] WBC (Bld) [#/Vol] 7.57 10*3/uL Normal 4.00-10.60 [facility] Comment on above: Performed By: #### L [id number] ####[facility] ([facility])[address] [place] [address] COMPREHENSIVE METABOLIC PANE Sonido 06-29-2024 Albumin [Mass/Vol] 4.2 g/dL Normal 3.5-5.7 [facility] Comment on above: Performed By: #### L [id number] ####[facility] ([facility])[address] [place] [address] ALP [Catalytic activity/Vol] 101 U/L Normal 34-104 [facility] Comment on above: Performed By: #### L [id number] ####[facility] ([facility])[address] [place] [address] ALT [Catalytic activity/Vol] 19 U/L Normal 7-52 [facility] Comment on above: Performed By: #### L [id number] ####[facility] ([facility])[address] [place] [address] Anion gap [Moles/Vol] 14 mmol/L Normal 7-20 [facility] Comment on above: Performed By: #### L [id number] ####[facility] ([facility])[address] [place] [address] AST [Catalytic activity/Vol] 18 U/L Normal 13-39 [facility] Comment on above: Performed By: #### L [id number] ####[facility] ([facility])[address] [place] [address] Bilirubin [Mass/Vol] 0.7 mg/dL Normal 0.3-1.0 [facility] Comment on above: Performed By: #### L [id number] ####[facility] ([facility])[address] [place] [address] Calcium [Mass/Vol] 10.2 mg/dL Normal 8.6-10.3 [facility] Comment on above: Performed By: #### L [id number] ####[facility] ([facility])[address] [place] [address] Chloride [Moles/Vol] 101 mmol/L Normal 98-107 [facility] Comment on above: Performed By: #### L [id number] ####[facility] ([facility])[address] [place] [address] CO2 [Moles/Vol] 22 mmol/L Normal 21-31 [facility] Comment on above: Performed By: #### L [id number] ####[facility] ([facility])[address] [place] [address] Creatinine [Mass/Vol] 2.01 mg/dL High 0.70-1.30 [facility] Comment on above: Performed By: #### L [id number] ####[facility] ([facility])[address] [place] [address] GLOMERULAR FILTRATION RATE ML/MIN/1.73 SQ M.PREDICTED 35.9 mL/min/1.73m*2 Low >60.0 [facility] Comment on above: Result Comment: The [facility]???s estimated glomerular filtration rate (eGFR) will [...] of individuals. Performed By: #### L [id number] ####[facility] ([facility])[address] [place] [address] Glucose [Mass/Vol] 158 mg/dL High 70-100 [facility] Comment on above: Performed By: #### L [id number] ####[facility] ([facility])[address] [place] [address] Potassium [Moles/Vol] 4.2 mmol/L Normal 3.5-5.1 [facility] Comment on above: Performed By: #### L [id number] ####[facility] ([facility])[address] [place] [address] Protein [Mass/Vol] 8.1 g/dL Normal 6.0-8.3 [facility] Comment on above: Performed By: #### L [id number] ####[facility] ([facility])[address] [place] [address] Sodium [Moles/Vol] 133 mmol/L Low 136-145 [facility] Comment on above: Performed By: #### L [id number] ####[facility] ([facility])[address] [place] [address] Urea nitrogen [Mass/Vol] 34 mg/dL High 7-25 [facility] Comment on above: Performed By: #### L [id number] ####[facility] ([facility])[address] [place] [address] UREA NITROGEN/CREATININE (MASS RATIO) IN SER/PLAS 16.9 Normal [facility] Comment on above: Performed By: #### L [id number] ####[facility] ([facility])[address] [place] [address] Labon 06-29-2024 Lab Normal [facility] T3, FREEon 06-29-2024 TRIIODOTHYRONINE (T3) FREE (PG/ML) IN SER/PLAS 3.3 pg/mL Normal 2.5-3.9 [facility] Comment on above: Performed By: #### L [id number] ####[facility] ([facility])[address] [place] [address] T4, FREEon 06-29-2024 THYROXINE (T4) FREE (NG/DL) IN SER/PLAS 0.55 ng/dL Low 0.71-1.85 [facility] Comment on above: Performed By: #### L [id number] ####[facility] ([facility])[address] [place] [address] TSHon 06-29-2024 THYROTROPIN (MIU/L) IN SER/PLAS BY DETECTION LIMIT <= 0.05 MIU/L 0.19 mIU/L Low 0.34-5.60 [facility] Comment on above: Performed By: #### L [id number] ####[facility] ([facility])[address] [place] [address] CBC WITH AUTO DIFFERENTIALon 06-07-2024 Basophils (Bld) [#/Vol] 0.06 10*3/uL Normal 0.00-0.20 [facility] Comment on above: Performed By: #### L [id number] ####[facility] ([facility])[address] [place] [address] Basophils/100 WBC (Bld) 0.7 % Normal 0.0-1.0 U [facility] Comment on above: Performed By: #### L [id number] ####[facility] ([facility])[address] [place] [address] Eosinophils (Bld) [#/Vol] 0.13 10*3/uL Normal 0.00-0.50 [facility] Comment on above: Performed By: #### L [id number] ####[facility] ([facility])[address] [place] [address] Eosinophils/100 WBC (Bld) 1.5 % Normal 0.0-6.0 [facility] Comment on above: Performed By: #### L [id number] ####[facility] ([facility])[address] [place] [address] Erythrocyte distribution width (RBC) [Ratio] 14.8 % Normal 11.5-15.0 [facility] Comment on above: Performed By: #### L [id number] ####[facility] ([facility])[address] [place] [address] ERYTHROCYTE MEAN CORPUSCULAR HEMOGLOBIN CONCENTRATION (G/DL) BY AUTOMATED 32.5 g/dL Normal 32.0-35.0 [facility] Comment on above: Performed By: #### L [id number] ####[facility] ([facility])[address] [place] [address] Hematocrit (Bld) [Volume fraction] 43.1 % Normal 39.0-55.0 [facility] Comment on above: Performed By: #### L [id number] ####[facility] ([facility])[address] [place] [address] Hemoglobin (Bld) [Mass/Vol] 14.0 g/dL Normal 13.0-17.0 [facility] Comment on above: Performed By: #### L [id number] ####[facility] ([facility])[address] [place] [address] Immature granulocytes (Bld) [#/Vol] 0.03 10*3/uL Normal 0.00-0.20 [facility] Comment on above: Performed By: #### L [id number] ####[facility] ([facility])[address] [place] [address] Immature granulocytes/100 WBC (Bld) 0.3 % Normal 0.0-1.0 [facility] Comment on above: Performed By: #### L [id number] ####[facility] ([facility])[address] [place] [address] Lymphocytes (Bld) [#/Vol] 2.02 10*3/uL Normal 1.20-4.00 [facility] Comment on above: Performed By: #### L [id number] ####[facility] ([facility])[address] [place] [address] Lymphocytes/100 WBC (Bld) 23.2 % Normal 20.0-45.0 [facility] Comment on above: Performed By: #### L [id number] ####[facility] ([facility])[address] [place] [address] MCH (RBC) [Entitic mass] 29.9 pg Normal 27.0-33.0 [facility] Comment on above: Performed By: #### L [id number] ####[facility] ([facility])[address] [place] [address] MCV (RBC) [Entitic vol] 91.9 fL Normal 82.0-98.0 U [facility] Comment on above: Performed By: #### L [id number] ####[facility] ([facility])[address] [place] [address] Monocytes (Bld) [#/Vol] 0.64 10*3/uL Normal 0.10-1.00 [facility] Comment on above: Performed By: #### L [id number] ####[facility] ([facility])[address] [place] [address] Monocytes/100 WBC (Bld) 7.4 % Normal 5.0-12.0 U [facility] Comment on above: Performed By: #### L [id number] ####[facility] ([facility])[address] [place] [address] Neutrophils (Bld) [#/Vol] 5.81 10*3/uL Normal 1.60-7.60 [facility] Comment on above: Performed By: #### L [id number] ####[facility] ([facility])[address] [place] [address] Neutrophils/100 WBC (Bld) 66.9 % Normal 40.0-72.0 [facility] Comment on above: Performed By: #### L [id number] ####[facility] ([facility])[address] [address] NRBC (PER 100 WBCS) BY AUTOMATED COUNT 0.0 % Normal 0 [facility] Comment on above: Performed By: #### L [id number] ####[facility] ([facility])[address] [place] [address] PLATELETS (10*3/UL) IN BLOOD AUTOMATED COUNT 300 10*3/uL Normal 150-400 [facility] Comment on above: Performed By: #### L [id number] ####[facility] ([facility])[address] [place] [address] RBC (Bld) [#/Vol] 4.69 10*6/uL Normal 4.20-5.70 [facility] Comment on above: Performed By: #### L [id number] ####[facility] ([facility])[address] [place] [address] WBC (Bld) [#/Vol] 8.69 10*3/uL Normal 4.00-10.60 [facility] Comment on above: Performed By: #### L [id number] ####[facility] ([facility])[address] [place] [address] COMPREHENSIVE METABOLIC PANE Sonido 06-07-2024 Albumin [Mass/Vol] 4.1 g/dL Normal 3.5-5.7 [facility] Comment on above: Performed By: #### L [id number] ####[facility] ([facility])[address] [place] [address] ALP [Catalytic activity/Vol] 108 U/L High 34-104 [facility] Comment on above: Performed By: #### L [id number] ####[facility] ([facility])[address] [place] [address] ALT [Catalytic activity/Vol] 13 U/L Normal 7-52 [facility] Comment on above: Performed By: #### L [id number] ####[facility] ([facility]ER)[address] [place] [address] Anion gap [Moles/Vol] 13 mmol/L Normal 7-20 [facility] Comment on above: Performed By: #### L [id number] ####[facility] ([facility]ER)[address] [place] [address] AST [Catalytic activity/Vol] 13 U/L Normal 13-39 [facility] Comment on above: Performed By: #### L [id number] ####[facility] ([facility])[address] [place] [address] Bilirubin [Mass/Vol] 0.6 mg/dL Normal 0.3-1.0 [facility] Comment on above: Performed By: #### L [id number] ####[facility] ([facility])[address] [place] [address] Calcium [Mass/Vol] 10.4 mg/dL High 8.6-10.3 [facility] Comment on above: Performed By: #### L [id number] ####[facility] ([facility]ER)[address] [place] [address] Chloride [Moles/Vol] 102 mmol/L Normal 98-107 [facility] Comment on above: Performed By: #### L [id number] ####[facility] ([facility])[address] [place] [address] CO2 [Moles/Vol] 24 mmol/L Normal 21-31 [facility] Comment on above: Performed By: #### L [id number] ####[facility] ([facility])[address] [place] [address] Creatinine [Mass/Vol] 1.77 mg/dL High 0.70-1.30 [facility] Comment on above: Performed By: #### L [id number] ####[facility] ([facility]ER)[address] [place] [address] GLOMERULAR FILTRATION RATE ML/MIN/1.73 SQ M.PREDICTED 41.8 mL/min/1.73m*2 Low >60.0 [facility] Comment on above: Result Comment: The [facility]???s estimated glomerular filtration rate (eGFR) will [...] of individuals. Performed By: #### L [id number] ####[facility] ([facility])[address] [place] [address] Glucose [Mass/Vol] 181 mg/dL High 70-100 [facility] Comment on above: Performed By: #### L [id number] ####[facility] ([facility])[address] [place] [address] Potassium [Moles/Vol] 4.6 mmol/L Normal 3.5-5.1 [facility] Comment on above: Performed By: #### L [id number] ####[facility] ([facility])[address] [place] [address] Protein [Mass/Vol] 7.8 g/dL Normal 6.0-8.3 [facility] Comment on above: Performed By: #### L [id number] ####[facility] ([facility])[address] [place] [address] Sodium [Moles/Vol] 134 mmol/L Low 136-145 [facility] Comment on above: Performed By: #### L [id number] ####[facility] ([facility])[address] [place] [address] Urea nitrogen [Mass/Vol] 31 mg/dL High 7-25 [facility] Comment on above: Performed By: #### L [id number] ####[facility] ([facility])[address] [place] [address] UREA NITROGEN/CREATININE (MASS RATIO) IN SER/PLAS 17.5 Normal [facility] Comment on above: Performed By: #### L [id number] ####[facility] ([facility])[address] [place] [address] Follow-Upon 06-07-2024 Follow-Up Normal [facility] Labon 06-07-2024 Lab Normal [facility] T3, FREEon 06-07-2024 TRIIODOTHYRONINE (T3) FREE (PG/ML) IN SER/PLAS 3.1 pg/mL Normal 2.5-3.9 [facility] Comment on above: Performed By: #### L [id number] ####[facility] ([facility])[address] [place] [address] T4, FREEon 06-07-2024 THYROXINE (T4) FREE (NG/DL) IN SER/PLAS 0.55 ng/dL Low 0.71-1.85 [facility] Comment on above: Performed By: #### L [id number] ####[facility] ([facility])[address] [place] [address] TSHon 06-07-2024 THYROTROPIN (MIU/L) IN SER/PLAS BY DETECTION LIMIT <= 0.05 MIU/L 0.25 mIU/L Low 0.34-5.60 [facility] Comment on above: Performed By: #### L [id number] ####[facility] ([facility])[address] [place] [address] MR LUMBAR SPINE WO CONTRASTo n 06-06-2024 MR LUMBAR SPINE WO CONTRAST Invalid Interpretation Code [facility] POCT GLUCOSE METER UNSOLICIT ED RESULTSon 06-05-2024 Glucose [Mass/Vol] 125 mg/dL High 70-105 [facility] Comment on above: Order Comment: Waive d Testing in the ED is performed under the ED CLIA certificate #[id number]. Result Comment: epit [id number] Performed By: #### L [id number] ####[facility] ([facility])[address] [place] [address] Abstracton 05-24-2024 Abstract Normal [facility] Letter (Out)on 05-24-2024 Letter (Out) Normal [facility] 29on 05-19-2024 29 Addended by: JEWELL MERINO on: 06/16/2024 12:06 PM Modules accepted: Orders Normal [facility] COMPREHENSIVE METABOLIC PANE Sonido 05-19-2024 Albumin [Mass/Vol] 3.9 g/dL Normal 3.5-5.7 [facility] Comment on above: Performed By: #### L [id number] ####[facility] ([facility])[address] [place] [address] ALP [Catalytic activity/Vol] 103 U/L Normal 34-104 [facility] Comment on above: Performed By: #### L [id number] ####[facility] ([facility])[address] [place] [address] ALT [Catalytic activity/Vol] 13 U/L Normal 7-52 [facility] Comment on above: Performed By: #### L [id number] ####[facility] ([facility])[address] [place] [address] Anion gap [Moles/Vol] 14 mmol/L Normal 7-20 [facility] Comment on above: Performed By: #### L [id number] ####[facility] ([facility])[address] [place] [address] AST [Catalytic activity/Vol] 11 U/L Low 13-39 [facility] Comment on above: Performed By: #### L [id number] ####[facility] ([facility])[address] [place] [address] Bilirubin [Mass/Vol] 0.4 mg/dL Normal 0.3-1.0 [facility] Comment on above: Performed By: #### L [id number] ####[facility] ([facility])[address] [place] [address] Calcium [Mass/Vol] 9.7 mg/dL Normal 8.6-10.3 [facility] Comment on above: Performed By: #### L [id number] ####[facility] ([facility])[address] [place] [address] Chloride [Moles/Vol] 102 mmol/L Normal 98-107 [facility] Comment on above: Performed By: #### L [id number] ####[facility] ([facility])[address] [place] [address] CO2 [Moles/Vol] 24 mmol/L Normal 21-31 [facility] Comment on above: Performed By: #### L [id number] ####[facility] ([facility])[address] [place] [address] Creatinine [Mass/Vol] 1.89 mg/dL High 0.70-1.30 [facility] Comment on above: Performed By: #### L [id number] ####[facility] ([facility])[address] [place] [address] GLOMERULAR FILTRATION RATE ML/MIN/1.73 SQ M.PREDICTED 38.7 mL/min/1.73m*2 Low >60.0 [facility] Comment on above: Result Comment: [facility]???s estimated glomerular filtration rate (eGFR) will [...] of individuals. Performed By: #### L [id number] ####[facility] ([facility])[address] [place] [address] Glucose [Mass/Vol] 244 mg/dL High 70-100 [facility] Comment on above: Performed By: #### L [id number] ####[facility] ([facility])[address] [place] [address] Potassium [Moles/Vol] 4.4 mmol/L Normal 3.5-5.1 [facility] Comment on above: Performed By: #### L [id number] ####[facility] ([facility])[address] [place] [address] Protein [Mass/Vol] 7.4 g/dL Normal 6.0-8.3 [facility] Comment on above: Performed By: #### L [id number] ####[facility] ([facility])[address] [place] [address] Sodium [Moles/Vol] 136 mmol/L Normal 136-145 [facility] Comment on above: Performed By: #### L [id number] ####[facility] ([facility])[address] [place] [address] Urea nitrogen [Mass/Vol] 31 mg/dL High 7-25 [facility] Comment on above: Performed By: #### L [id number] ####[facility] ([facility])[address] [place] [address] UREA NITROGEN/CREATININE (MASS RATIO) IN SER/PLAS 16.4 Normal [facility] Comment on above: Performed By: #### L [id number] ####[facility] ([facility])[address] [place] [address] IMMUNOFIXATION ELECTROPHORES Mohan 05-19-2024 IMMUNOFIXATION ELECTROPHORESIS 1 See attached report. Normal [facility] Comment on above: Performed By: #### L [id number] ####[facility] ([facility])[address] [place] [address] Magnesium [Mass/Vol] 1440 mg/dL Normal 591-1540 [facility] Comment on above: Performed By: #### L [id number] ####[facility] ([facility])[address] [place] [address] Magnesium [Mass/Vol] 363 mg/dL Normal 60-413 [facility] Comment on above: Performed By: #### L [id number] ####[facility] ([facility])[address] [place] [address] Magnesium [Mass/Vol] 79.2 mg/dL Normal 54-285 [facility] Comment on above: Performed By: #### L [id number] ####[facility] ([facility])[address] [place] [address] KAPPA / LAMBDA LIGHT CHAINS, FREEon 05-19-2024 IMMUNOGLOBULIN LIGHT CHAINS KAPPA/LAMBDA (MASS RATIO) IN SERUM 1.21 Normal 0.22-1.74 [facility] Comment on above: Result Comment: Test Performed by [employer] [address] [place] [address] [id number] - Released 06/16/2024 19:34 Performed By: #### L [id number] ####[facility] [id number] [place] [address] IMMUNOGLOBULIN LIGHT CHAINS.KAPPA (MG/DL) IN SERUM 75.0 mg/L High <20.8 [facility] Comment on above: Result Comment: Perf ormed using Diazyme reagent on [employer]. Results obtained with different assay methods cannot be used interchangeably. Performed By: #### L [id number] ####[employer] [id number] [place] [address] IMMUNOGLOBULIN LIGHT CHAINS.LAMBDA (MG/DL) IN SERUM 61.8 mg/L High 4.2-27.7 [facility] Comment on above: Result Comment: Perf ormed using Diazyme reagent on [employer]. Results obtained with different assay methods cannot be used interchangeably. Performed By: #### L [id number] ####[employer] [id number] [place] [address] Labon 05-19-2024 Lab Normal [facility] MAGNESIUMon 05-19-2024 Magnesium [Mass/Vol] 1.8 mg/dL Low 1.9-2.7 [facility] Comment on above: Performed By: #### L [id number] ####[facility] (MINNA)[address] [address] Orders Onlyon 05-19-2024 Orders Only Normal [facility] PHOSPHORUSon 05-19-2024 Magnesium [Mass/Vol] 3.1 mg/dL Normal 2.5-5.0 [facility] Comment on above: Performed By: #### L [id number] ####[facility] ([facility])[address] [place] [address] PROTEIN ELECTROPHORESIS, SER UMon 05-19-2024 Protein [Mass/Vol] 7.3 g/dL Normal 6.0-8.3 [facility] Comment on above: Performed By: #### L [id number] ####[facility] ([facility])[address] [place] [address] PROTEIN FRACTION (INTERPRETATION) IN SER/PLAS BY ELECTROPHORESIS Please see attached report. Normal [facility] Comment on above: Performed By: #### L [id number] ####[facility] ([facility])[address] [place] [address] PROTEIN ELECTROPHORESIS, URI NE, 24 HOURon 05-19-2024 Protein (U) [Mass/Vol] 13.6 mg/dL Normal [facility] Comment on above: Result Comment: Ther e are no established reference values for random urine specimens. Performed By: #### L [id number] ####[facility] ([facility])[address] [place] [address] UPEP INTERPRETATION Please see attached report. Normal [facility] Comment on above: Performed By: #### L [id number] ####[facility] ([facility])[address] [place] [address] PTH, INTACTon 05-19-2024 PARATHYRIN INTACT (PG/ML) IN SER/PLAS 234 pg/mL High 12-88 [facility] Comment on above: Performed By: #### L [id number] ####[facility] ([facility])[address] [place] [address] PTH-RELATED PEPTIDEon 2023 PTH-RELATED PROTEIN PLASMA 4.1 pmol/L High 0.0-2.3 [facility] Comment on above: Result Comment: INTE RPRETIVE INFORMATION: Parathyroid Hormone-Related PeptideThis test was developed and its performance characteristicsdetermined by [employer]. It has not been cleared orapproved by the [place] Food and Drug Administration. This test wasperformed in a CLIA certified laboratory and is intended forclinical purposes.Performed By: [employer] [employer] [place] [id number] Director: Devon Romeo MD, PhDCLIA Number: [id number] Performed By: #### L [id number] ####[facility] ([facility])[address] [place] [address] T4, FREEon 05-19-2024 THYROXINE (T4) FREE (NG/DL) IN SER/PLAS 0.68 ng/dL Low 0.71-1.85 [facility] Comment on above: Performed By: #### L [id number] ####[facility] ([facility])[address] [place] [address] URIC ACIDon 05-19-2024 Magnesium [Mass/Vol] 6.2 mg/dL Normal 4.4-7.6 [facility] Comment on above: Performed By: #### L [id number] ####[facility] ([facility])[address] [place] [address] VITAMIN D 1,25 DIHYDROXYon 0 05-19-2024 VITAMIN D 1,25-DIHYDROXY 28.3 pg/mL Normal 19.9-79.3 [facility] Comment on above: Result Comment: INTE RPRETIVE INFORMATION: Vitamin D, 1,25-DihydroxyThis test is primarily indicated during patient evaluation forhypercalcemia and renal failure. A normal result does not rule outVitamin D deficiency. The recommended test for diagnosing VitaminD deficiency is Vitamin D 25-hydroxy.Performed By: [employer] [employer] [place] [address]Plprzfomhm Director: Devon Romeo MD, PhDCLIA Number: [id number] Performed By: #### L [id number] ####[facility] ([facility])[address] [place] [address] VITAMIN D 25 HYDROXYon 05-19 CALCIDIOL (25 [place] VITAMIN D3) (NG/ML) IN SER/PLAS 25.0 ng/mL Low 30.0-80.0 [facility] Comment on above: Result Comment: >80. 0 Toxicity possible Performed By: #### L [id number] ####[facility] ([facility])[address] [place] [address] CBC WITH AUTO DIFFERENTIALon 05-18-2024 Basophils (Bld) [#/Vol] 0.04 10*3/uL Normal 0.00-0.20 [facility] Comment on above: Performed By: #### L [id number] ####[facility] ([facility])[address] [place] [address] Basophils/100 WBC (Bld) 0.5 % Normal 0.0-1.0 [facility] Comment on above: Performed By: #### L [id number] ####[facility] ([facility])[address] [place] [address] Eosinophils (Bld) [#/Vol] 0.11 10*3/uL Normal 0.00-0.50 [facility] Comment on above: Performed By: #### L [id number] ####[facility] ([facility])[address] [place] [address] Eosinophils/100 WBC (Bld) 1.5 % Normal 0.0-6.0 [facility] Comment on above: Performed By: #### L [id number] ####[facility] ([facility])[address] [place] [address] Erythrocyte distribution width (RBC) [Ratio] 14.5 % Normal 11.5-15.0 [facility] Comment on above: Performed By: #### L [id number] ####[facility] ([facility])[address] [place] [address] ERYTHROCYTE MEAN CORPUSCULAR HEMOGLOBIN CONCENTRATION (G/DL) BY AUTOMATED 32.3 g/dL Normal 32.0-35.0 [facility] Comment on above: Performed By: #### L [id number] ####[facility] ([facility])[address] [place] [address] Hematocrit (Bld) [Volume fraction] 44.3 % Normal 39.0-55.0 [facility] Comment on above: Performed By: #### L [id number] ####[facility] ([facility])[address] [place] [address] Hemoglobin (Bld) [Mass/Vol] 14.3 g/dL Normal 13.0-17.0 [facility] Comment on above: Performed By: #### L [id number] ####[facility] ([facility])[address] [place] [address] Immature granulocytes (Bld) [#/Vol] 0.02 10*3/uL Normal 0.00-0.20 [facility] Comment on above: Performed By: #### L [id number] ####[facility] ([facility])[address] [place] [address] Immature granulocytes/100 WBC (Bld) 0.3 % Normal 0.0-1.0 [facility] Comment on above: Performed By: #### L [id number] ####[facility] ([facility])[address] [place] [address] Lymphocytes (Bld) [#/Vol] 1.70 10*3/uL Normal 1.20-4.00 [facility] Comment on above: Performed By: #### L [id number] ####[facility] ([facility])[address] [place] [address] Lymphocytes/100 WBC (Bld) 22.7 % Normal 20.0-45.0 [facility] Comment on above: Performed By: #### L [id number] ####[facility] ([facility])[address] [place] [address] MCH (RBC) [Entitic mass] 30.0 pg Normal 27.0-33.0 [facility] Comment on above: Performed By: #### L [id number] ####[facility] ([facility])[address] [place] [address] MCV (RBC) [Entitic vol] 93.1 fL Normal 82.0-98.0 U [facility] Comment on above: Performed By: #### L [id number] ####[facility] ([facility])[address] [place] [address] Monocytes (Bld) [#/Vol] 0.65 10*3/uL Normal 0.10-1.00 [facility] Comment on above: Performed By: #### L [id number] ####[facility] ([facility])[address] [place] [address] Monocytes/100 WBC (Bld) 8.7 % Normal 5.0-12.0 U [facility] Comment on above: Performed By: #### L [id number] ####[facility] ([facility])[address] [place] [address] Neutrophils (Bld) [#/Vol] 4.97 10*3/uL Normal 1.60-7.60 [facility] Comment on above: Performed By: #### L [id number] ####[facility] ([facility])[address] [place] [address] Neutrophils/100 WBC (Bld) 66.3 % Normal 40.0-72.0 [facility] Comment on above: Performed By: #### L [id number] ####[facility] ([facility])[address] [place] [address] NRBC (PER 100 WBCS) BY AUTOMATED COUNT 0.0 % Normal 0 [facility] Comment on above: Performed By: #### L [id number] ####[facility] ([facility])[address] [place] [address] PLATELETS (10*3/UL) IN BLOOD AUTOMATED COUNT 295 10*3/uL Normal 150-400 [facility] Comment on above: Performed By: #### L [id number] ####[facility] ([facility])[address] [place] [address] RBC (Bld) [#/Vol] 4.76 10*6/uL Normal 4.20-5.70 [facility] Comment on above: Performed By: #### L [id number] ####[facility] ([facility])[address] [place] [address] WBC (Bld) [#/Vol] 7.49 10*3/uL Normal 4.00-10.60 [facility] Comment on above: Performed By: #### L [id number] ####[facility] ([facility])[address] [place] [address] COMPREHENSIVE METABOLIC PANE Sonido 05-18-2024 Albumin [Mass/Vol] 4.2 g/dL Normal 3.5-5.7 [facility] Comment on above: Performed By: #### L [id number] ####[facility] ([facility])[address] [place] [address] ALP [Catalytic activity/Vol] 116 U/L High 34-104 [facility] Comment on above: Performed By: #### L [id number] ####[facility] ([facility])[address] [place] [address] ALT [Catalytic activity/Vol] 15 U/L Normal 7-52 [facility] Comment on above: Performed By: #### L [id number] ####[facility] ([facility])[address] [place] [address] Anion gap [Moles/Vol] 16 mmol/L Normal 7-20 [facility] Comment on above: Performed By: #### L [id number] ####[facility] ([facility])[address] [place] [address] AST [Catalytic activity/Vol] 16 U/L Normal 13-39 [facility] Comment on above: Performed By: #### L [id number] ####[facility] ([facility])[address] [place] [address] Bilirubin [Mass/Vol] 0.7 mg/dL Normal 0.3-1.0 [facility] Comment on above: Performed By: #### L [id number] ####[facility] ([facility])[address] [place] [address] Calcium [Mass/Vol] 10.5 mg/dL High 8.6-10.3 [facility] Comment on above: Performed By: #### L [id number] ####[facility] ([facility])[address] [place] [address] Chloride [Moles/Vol] 102 mmol/L Normal 98-107 [facility] Comment on above: Performed By: #### L [id number] ####[facility] ([facility])[address] [place] [address] CO2 [Moles/Vol] 21 mmol/L Normal 21-31 [facility] Comment on above: Performed By: #### L [id number] ####[facility] ([facility])[address] [place] [address] Creatinine [Mass/Vol] 1.87 mg/dL High 0.70-1.30 [facility] Comment on above: Performed By: #### L [id number] ####[facility] ([facility])[address] [place] [address] GLOMERULAR FILTRATION RATE ML/MIN/1.73 SQ M.PREDICTED 39.2 mL/min/1.73m*2 Low >60.0 [facility] Comment on above: Result Comment: The [facility]???s estimated glomerular filtration rate (eGFR) will [...] of individuals. Performed By: #### L [id number] ####[facility] ([facility])[address] [place] [address] Glucose [Mass/Vol] 175 mg/dL High 70-100 [facility] Comment on above: Performed By: #### L [id number] ####[facility] ([facility])[address] [place] [address] Potassium [Moles/Vol] 4.8 mmol/L Normal 3.5-5.1 [facility] Comment on above: Performed By: #### L [id number] ####[facility] ([facility])[address] [place] [address] Protein [Mass/Vol] 8.0 g/dL Normal 6.0-8.3 [facility] Comment on above: Performed By: #### L [id number] ####[facility] ([facility])[address] [place] [address] Sodium [Moles/Vol] 134 mmol/L Low 136-145 [facility] Comment on above: Performed By: #### L [id number] ####[facility] ([facility])[address] [place] [address] Urea nitrogen [Mass/Vol] 32 mg/dL High 7-25 [facility] Comment on above: Performed By: #### L [id number] ####[facility] ([facility])[address] [place] [address] UREA NITROGEN/CREATININE (MASS RATIO) IN SER/PLAS 17.1 Normal [facility] Comment on above: Performed By: #### L [id number] ####[facility] ([facility])[address] [place] [address] CREATININE, URINE, RANDOMon 05-18-2024 Creatinine (U) [Mass/Vol] 87.0 mg/dL Normal 26-299 [facility] Comment on above: Performed By: #### L [id number] ####[facility] ([facility])[address] [place] [address] Labon 05-18-2024 Lab Normal [facility] PROTEIN, URINE, RANDOMon Protein (U) [Mass/Vol] 198.3 mg/dL Normal U [facility] Comment on above: Result Comment: Ther e are no established reference values for random urine specimens. Performed By: #### L [id number] ####[facility] ([facility])[address] [place] [address] T3, FREEon 05-18-2024 TRIIODOTHYRONINE (T3) FREE (PG/ML) IN SER/PLAS 3.0 pg/mL Normal 2.5-3.9 [facility] Comment on above: Performed By: #### L [id number] ####[facility] ([facility])[address] [place] [address] TSHon 05-18-2024 THYROTROPIN (MIU/L) IN SER/PLAS BY DETECTION LIMIT <= 0.05 MIU/L 0.49 mIU/L Normal 0.34-5.60 [facility] Comment on above: Performed By: #### L [id number] ####[facility] ([facility])[address] [place] [address] 36on 05-11-2024 36 Scheduled [facility] 36on 05-09-2024 36 [phone] call [facility] seun to schedule mri follow up It is scheduled 06/06 thank you [facility] Follow-Upon 04-28-2024 Follow-Up [facility] Infusionon 04-28-2024 Infusion [facility] ANAon 04-27-2024 JOHNNY PATTERN Nucleolar [facility] Comment on above: Performed By: #### L [id number] ####[facility] ([facility])[address] [place] [address] JOHNNY TITER 1:40 Normal <=1:40 [facility] Comment on above: Result Comment: Test performed using HOLLI IFA JOHNNY Hep-2 Test, a pre-standardized assay designed for the qualitative and semi-quantitative detection of antinuclear antibodies. Performed By: #### L [id number] ####[facility] ([facility])[address] [place] [address] C3 COMPLEMENTon 04-27-2024 Magnesium [Mass/Vol] 130.00 mg/dL Normal 79.00-1 52. 00 [facility] Comment on above: Performed By: #### L [id number] ####[facility] ([facility])[address] [place] [address] C4 COMPLEMENTon 04-27-2024 Magnesium [Mass/Vol] 53.3 mg/dL High 16-38 [facility] Comment on above: Performed By: #### L [id number] ####[facility] ([facility])[address] [place] [address] CBC WITH AUTO DIFFERENTIALon 04-27-2024 Basophils (Bld) [#/Vol] 0.04 10*3/uL Normal 0.00-0.20 [facility] Comment on above: Performed By: #### L [id number] ####[facility] ([facility])[address] [place] [address] Basophils/100 WBC (Bld) 0.6 % Normal 0.0-1.0 [facility] Comment on above: Performed By: #### L [id number] ####[facility] ([facility])[address] [place] [address] Eosinophils (Bld) [#/Vol] 0.10 10*3/uL Normal 0.00-0.50 [facility] Comment on above: Performed By: #### L [id number] ####[facility] ([facility])[address] [place] [address] Eosinophils/100 WBC (Bld) 1.4 % Normal 0.0-6.0 [facility] Comment on above: Performed By: #### L [id number] ####[facility] ([facility])[address] [place] [address] Erythrocyte distribution width (RBC) [Ratio] 14.2 % Normal 11.5-15.0 [facility] Comment on above: Performed By: #### L [id number] ####[facility] ([facility])[address] [place] [address] ERYTHROCYTE MEAN CORPUSCULAR HEMOGLOBIN CONCENTRATION (G/DL) BY AUTOMATED 32.9 g/dL Normal 32.0-35.0 [facility] Comment on above: Performed By: #### L [id number] ####[facility] ([facility])[address] [place] [address] Hematocrit (Bld) [Volume fraction] 42.9 % Normal 39.0-55.0 [facility] Comment on above: Performed By: #### L [id number] ####[facility] ([facility])[address] [place] [address] Hemoglobin (Bld) [Mass/Vol] 14.1 g/dL Normal 13.0-17.0 [facility] Comment on above: Performed By: #### L [id number] ####[facility] ([facility])[address] [place] [address] Immature granulocytes (Bld) [#/Vol] 0.02 10*3/uL Normal 0.00-0.20 [facility] Comment on above: Performed By: #### L [id number] ####[facility] ([facility])[address] [place] [address] Immature granulocytes/100 WBC (Bld) 0.3 % Normal 0.0-1.0 [facility] Comment on above: Performed By: #### L [id number] ####[facility] ([facility])[address] [place] [address] Lymphocytes (Bld) [#/Vol] 1.89 10*3/uL Normal 1.20-4.00 [facility] Comment on above: Performed By: #### L [id number] ####[facility] ([facility])[address] [place] [address] Lymphocytes/100 WBC (Bld) 26.0 % Normal 20.0-45.0 [facility] Comment on above: Performed By: #### L [id number] ####[facility] ([facility])[address] [place] [address] MCH (RBC) [Entitic mass] 29.9 pg Normal 27.0-33.0 [facility] Comment on above: Performed By: #### L [id number] ####[facility] ([facility])[address] [place] [address] MCV (RBC) [Entitic vol] 91.1 fL Normal 82.0-98.0 U [facility] Comment on above: Performed By: #### L [id number] ####[facility] ([facility])[address] [place] [address] Monocytes (Bld) [#/Vol] 0.68 10*3/uL Normal 0.10-1.00 [facility] Comment on above: Performed By: #### L [id number] ####[facility] ([facility])[address] [place] [address] Monocytes/100 WBC (Bld) 9.4 % Normal 5.0-12.0 U [facility] Comment on above: Performed By: #### L [id number] ####[facility] ([facility])[address] [place] [address] Neutrophils (Bld) [#/Vol] 4.54 10*3/uL Normal 1.60-7.60 [facility] Comment on above: Performed By: #### L [id number] ####[facility] ([facility])[address] [place] [address] Neutrophils/100 WBC (Bld) 62.3 % Normal 40.0-72.0 [facility] Comment on above: Performed By: #### L [id number] ####[facility] ([facility])[address] [place] [address] NRBC (PER 100 WBCS) BY AUTOMATED COUNT 0.0 % Normal 0 [facility] Comment on above: Performed By: #### L [id number] ####[facility] ([facility])[address] [place] [address] PLATELETS (10*3/UL) IN BLOOD AUTOMATED COUNT 289 10*3/uL Normal 150-400 [facility] Comment on above: Performed By: #### L [id number] ####[facility] ([facility])[address] [place] [address] RBC (Bld) [#/Vol] 4.71 10*6/uL Normal 4.20-5.70 [facility] Comment on above: Performed By: #### L [id number] ####[facility] ([facility])[address] [place] [address] WBC (Bld) [#/Vol] 7.27 10*3/uL Normal 4.00-10.60 [facility] Comment on above: Performed By: #### L [id number] ####[facility] ([facility])[address] [place] [address] COMPREHENSIVE METABOLIC PANE Sonido 04-27-2024 Albumin [Mass/Vol] 3.9 g/dL Normal 3.5-5.7 [facility] Comment on above: Performed By: #### L [id number] ####[facility] ([facility])[address] [place] [address] ALP [Catalytic activity/Vol] 118 U/L High 34-104 [facility] Comment on above: Performed By: #### L [id number] ####[facility] ([facility])[address] [place] [address] ALT [Catalytic activity/Vol] 16 U/L Normal 7-52 [facility] Comment on above: Performed By: #### L [id number] ####[facility] ([facility])[address] [place] [address] Anion gap [Moles/Vol] 13 mmol/L Normal 7-20 [facility] Comment on above: Performed By: #### L [id number] ####[facility] ([facility])[address] [place] [address] AST [Catalytic activity/Vol] 16 U/L Normal 13-39 [facility] Comment on above: Performed By: #### L [id number] ####[facility] ([facility])[address] [place] [address] Bilirubin [Mass/Vol] 0.5 mg/dL Normal 0.3-1.0 [facility] Comment on above: Performed By: #### L [id number] ####[facility] ([facility])[address] [place] [address] Calcium [Mass/Vol] 10.2 mg/dL Normal 8.6-10.3 [facility] Comment on above: Performed By: #### L [id number] ####[facility] ([facility])[address] [place] [address] Chloride [Moles/Vol] 104 mmol/L Normal 98-107 [facility] Comment on above: Performed By: #### L [id number] ####[facility] ([facility])[address] [place] [address] CO2 [Moles/Vol] 25 mmol/L Normal 21-31 [facility] Comment on above: Performed By: #### L [id number] ####[facility] ([facility])[address] [place] [address] Creatinine [Mass/Vol] 1.87 mg/dL High 0.70-1.30 [facility] Comment on above: Performed By: #### L [id number] ####[facility] ([facility])[address] [place] [address] GLOMERULAR FILTRATION RATE ML/MIN/1.73 SQ M.PREDICTED 39.2 mL/min/1.73m*2 Low >60.0 [facility] Comment on above: Result Comment: The [facility]???s estimated glomerular filtration rate (eGFR) will [...] of individuals. Performed By: #### L [id number] ####[facility] ([facility])[address] [place] [address] Glucose [Mass/Vol] 143 mg/dL High 70-100 [facility] Comment on above: Performed By: #### L [id number] ####[facility] ([facility])[address] [place] [address] Potassium [Moles/Vol] 4.8 mmol/L Normal 3.5-5.1 [facility] Comment on above: Performed By: #### L [id number] ####[facility] ([facility])[address] [place] [address] Protein [Mass/Vol] 7.7 g/dL Normal 6.0-8.3 [facility] Comment on above: Performed By: #### L [id number] ####[facility] ([facility])[address] [place] [address] Sodium [Moles/Vol] 137 mmol/L Normal 136-145 [facility] Comment on above: Performed By: #### L [id number] ####[facility] ([facility])[address] [place] [address] Urea nitrogen [Mass/Vol] 27 mg/dL High 7-25 [facility] Comment on above: Performed By: #### L [id number] ####[facility] ([facility])[address] [place] [address] UREA NITROGEN/CREATININE (MASS RATIO) IN SER/PLAS 14.4 Normal [facility] Comment on above: Performed By: #### L [id number] ####[facility] ([facility])[address] [place] [address] Labon 04-27-2024 Lab Normal [facility] MAGNESIUMon 04-27-2024 Magnesium [Mass/Vol] 1.9 mg/dL Normal 1.9-2.7 [facility] Comment on above: Performed By: #### L [id number] ####[facility] ([facility])[address] [place] [address] PHOSPHORUSon 04-27-2024 Magnesium [Mass/Vol] 3.1 mg/dL Normal 2.5-5.0 [facility] Comment on above: Performed By: #### L [id number] ####[facility] ([facility])[address] [place] [address] T3, FREEon 04-27-2024 TRIIODOTHYRONINE (T3) FREE (PG/ML) IN SER/PLAS 2.8 pg/mL Normal 2.5-3.9 [facility] Comment on above: Performed By: #### L [id number] ####[facility] ([facility])[address] [place] [address] T4, FREEon 04-27-2024 THYROXINE (T4) FREE (NG/DL) IN SER/PLAS 0.73 ng/dL Normal 0.71-1.85 [facility] Comment on above: Performed By: #### L [id number] ####[facility] ([facility])[address] [place] [address] TSHon 04-27-2024 THYROTROPIN (MIU/L) IN SER/PLAS BY DETECTION LIMIT <= 0.05 MIU/L 0.75 mIU/L Normal 0.34-5.60 [facility] Comment on above: Performed By: #### L [id number] ####[facility] ([facility])[address] [place] [address] CBC WITH AUTO DIFFERENTIALon 04-04-2024 Basophils (Bld) [#/Vol] 0.05 10*3/uL Normal 0.00-0.20 [facility] Comment on above: Performed By: #### L [id number] ####[facility] ([facility])[address] [place] [address] Basophils/100 WBC (Bld) 0.7 % Normal 0.0-1.0 U [facility] Comment on above: Performed By: #### L [id number] ####[facility] ([facility])[address] [place] [address] Eosinophils (Bld) [#/Vol] 0.14 10*3/uL Normal 0.00-0.50 [facility] Comment on above: Performed By: #### L [id number] ####[facility] ([facility])[address] [place] [address] Eosinophils/100 WBC (Bld) 2.0 % Normal 0.0-6.0 [facility] Comment on above: Performed By: #### L [id number] ####[facility] ([facility])[address] [place] [address] Erythrocyte distribution width (RBC) [Ratio] 14.3 % Normal 11.5-15.0 [facility] Comment on above: Performed By: #### L [id number] ####[facility] ([facility])[address] [place] [address] ERYTHROCYTE MEAN CORPUSCULAR HEMOGLOBIN CONCENTRATION (G/DL) BY AUTOMATED 33.4 g/dL Normal 32.0-35.0 [facility] Comment on above: Performed By: #### L [id number] ####[facility] ([facility])[address] [place] [address] Hematocrit (Bld) [Volume fraction] 40.7 % Normal 39.0-55.0 [facility] Comment on above: Performed By: #### L [id number] ####[facility] ([facility])[address] [place] [address] Hemoglobin (Bld) [Mass/Vol] 13.6 g/dL Normal 13.0-17.0 [facility] Comment on above: Performed By: #### L [id number] ####[facility] ([facility])[address] [place] [address] Immature granulocytes (Bld) [#/Vol] 0.02 10*3/uL Normal 0.00-0.20 [facility] Comment on above: Performed By: #### L [id number] ####[facility] ([facility])[address] [place] [address] Immature granulocytes/100 WBC (Bld) 0.3 % Normal 0.0-1.0 [facility] Comment on above: Performed By: #### L [id number] ####[facility] ([facility])[address] [place] [address] Lymphocytes (Bld) [#/Vol] 1.70 10*3/uL Normal 1.20-4.00 [facility] Comment on above: Performed By: #### L [id number] ####[facility] ([facility])[address] [place] [address] Lymphocytes/100 WBC (Bld) 24.0 % Normal 20.0-45.0 [facility] Comment on above: Performed By: #### L [id number] ####[facility] ([facility])[address] [place] [address] MCH (RBC) [Entitic mass] 29.6 pg Normal 27.0-33.0 [facility] Comment on above: Performed By: #### L [id number] ####[facility] ([facility])[address] [place], [place] [address] MCV (RBC) [Entitic vol] 88.7 fL Normal 82.0-98.0 U [facility] Comment on above: Performed By: #### L [id number] ####[facility] ([facility])[address] [place], [place] [address] Monocytes (Bld) [#/Vol] 0.55 10*3/uL Normal 0.10-1.00 [facility] Comment on above: Performed By: #### L [id number] ####[facility] ([facility])[address] [place] [address] Monocytes/100 WBC (Bld) 7.8 % Normal 5.0-12.0 U [facility] Comment on above: Performed By: #### L [id number] ####[facility] ([facility])[address] [place] [address] Neutrophils (Bld) [#/Vol] 4.63 10*3/uL Normal 1.60-7.60 [facility] Comment on above: Performed By: #### L [id number] ####[facility] ([facility])[address] [place] [address] Neutrophils/100 WBC (Bld) 65.2 % Normal 40.0-72.0 [facility] Comment on above: Performed By: #### L [id number] ####[facility] ([facility])[address] [place] [address] NRBC (PER 100 WBCS) BY AUTOMATED COUNT 0.0 % Normal 0 [facility] Comment on above: Performed By: #### L [id number] ####[facility] ([facility])[address] [place] [address] PLATELETS (10*3/UL) IN BLOOD AUTOMATED COUNT 320 10*3/uL Normal 150-400 [facility] Comment on above: Performed By: #### L [id number] ####[facility] ([facility])[address] [place] [address] RBC (Bld) [#/Vol] 4.59 10*6/uL Normal 4.20-5.70 [facility] Comment on above: Performed By: #### L [id number] ####[facility] ([facility])[address] [place] [address] WBC (Bld) [#/Vol] 7.09 10*3/uL Normal 4.00-10.60 [facility] Comment on above: Performed By: #### L [id number] ####[facility] ([facility])[address] [place] [address] COMPREHENSIVE METABOLIC PANE Sonido 04-04-2024 Albumin [Mass/Vol] 4.1 g/dL Normal 3.5-5.7 [facility] Comment on above: Performed By: #### L [id number] ####[facility] ([facility])[address] [place] [address] ALP [Catalytic activity/Vol] 104 U/L Normal 34-104 [facility] Comment on above: Performed By: #### L [id number] ####[facility] ([facility])[address] [place] [address] ALT [Catalytic activity/Vol] 13 U/L Normal 7-52 [facility] Comment on above: Performed By: #### L [id number] ####[facility] ([facility])[address] [place] [address] Anion gap [Moles/Vol] 14 mmol/L Normal 7-20 [facility] Comment on above: Performed By: #### L [id number] ####[facility] ([facility])[address] [place] [address] AST [Catalytic activity/Vol] 16 U/L Normal 13-39 [facility] Comment on above: Performed By: #### L [id number] ####[facility] ([facility])[address] [place] [address] Bilirubin [Mass/Vol] 0.7 mg/dL Normal 0.3-1.0 [facility] Comment on above: Performed By: #### L [id number] ####[facility] ([facility])[address] [place] [address] Calcium [Mass/Vol] 10.2 mg/dL Normal 8.6-10.3 [facility] Comment on above: Performed By: #### L [id number] ####[facility] ([facility])[address] [place] [address] Chloride [Moles/Vol] 104 mmol/L Normal 98-107 [facility] Comment on above: Performed By: #### L [id number] ####[facility] ([facility])[address] [place] [address] CO2 [Moles/Vol] 22 mmol/L Normal 21-31 [facility] Comment on above: Performed By: #### L [id number] ####[facility] ([facility])[address] [place] [address] Creatinine [Mass/Vol] 1.83 mg/dL High 0.70-1.30 [facility] Comment on above: Performed By: #### L [id number] ####[facility] ([facility])[address] [place] [address] GLOMERULAR FILTRATION RATE ML/MIN/1.73 SQ M.PREDICTED 40.2 mL/min/1.73m*2 Low >60.0 [facility] Comment on above: Result Comment: [facility]???s estimated glomerular filtration rate (eGFR) will [...] of individuals. Performed By: #### L [id number] ####[facility] ([facility])[address] [place] [address] Glucose [Mass/Vol] 147 mg/dL High 70-100 [facility] Comment on above: Performed By: #### L [id number] ####[facility] ([facility])[address] [place] [address] Potassium [Moles/Vol] 4.8 mmol/L Normal 3.5-5.1 [facility] Comment on above: Performed By: #### L [id number] ####[facility] ([facility])[address] [place] [address] Protein [Mass/Vol] 8.0 g/dL Normal 6.0-8.3 [facility] Comment on above: Performed By: #### L [id number] ####[facility] ([facility])[address] [place] [address] Sodium [Moles/Vol] 135 mmol/L Low 136-145 [facility] Comment on above: Performed By: #### L [id number] ####[facility] ([facility])[address] [place] [address] Urea nitrogen [Mass/Vol] 25 mg/dL Normal 7-25 [facility] Comment on above: Performed By: #### L [id number] ####[facility] ([facility])[address] [place] [address] UREA NITROGEN/CREATININE (MASS RATIO) IN SER/PLAS 13.7 Normal [facility] Comment on above: Performed By: #### L [id number] ####[facility] ([facility])[address] [place] [address] T3, FREEon 04-04-2024 TRIIODOTHYRONINE (T3) FREE (PG/ML) IN SER/PLAS 3.0 pg/mL Normal 2.5-3.9 [facility] Comment on above: Performed By: #### L [id number] ####[facility] ([facility])[address] [place] [address] T4, FREEon 04-04-2024 THYROXINE (T4) FREE (NG/DL) IN SER/PLAS 1.05 ng/dL Normal 0.71-1.85 [facility] Comment on above: Performed By: #### L [id number] ####[facility] ([facility])[address] [place] [address] TSHon 04-04-2024 THYROTROPIN (MIU/L) IN SER/PLAS BY DETECTION LIMIT <= 0.05 MIU/L 0.66 mIU/L Normal 0.34-5.60 [facility] Comment on above: Performed By: #### L [id number] ####[facility] ([facility])[address] [place] [address] CT ABDOMEN PELVIS WO IV CONT RASTon 03-27-2024 CT ABDOMEN PELVIS WO IV CONTRAST Invalid Interpretation Code [facility] CBC WITH AUTO DIFFERENTIALon 03-16-2024 Basophils (Bld) [#/Vol] 0.05 10*3/uL Normal 0.00-0.20 [facility] Comment on above: Performed By: #### L [id number] ####[facility] ([facility])[address] [place] [address] Basophils/100 WBC (Bld) 0.6 % Normal 0.0-1.0 [facility] Comment on above: Performed By: #### L [id number] ####[facility] ([facility])[address] [place] [address] Eosinophils (Bld) [#/Vol] 0.11 10*3/uL Normal 0.00-0.50 [facility] Comment on above: Performed By: #### L [id number] ####[facility] ([facility])[address] [place] [address] Eosinophils/100 WBC (Bld) 1.4 % Normal 0.0-6.0 [facility] Comment on above: Performed By: #### L [id number] ####[facility] ([facility])[address] [place] [address] Erythrocyte distribution width (RBC) [Ratio] 14.5 % Normal 11.5-15.0 [facility] Comment on above: Performed By: #### L [id number] ####[facility] ([facility])[address] [place] [address] ERYTHROCYTE MEAN CORPUSCULAR HEMOGLOBIN CONCENTRATION (G/DL) BY AUTOMATED 33.5 g/dL Normal 32.0-35.0 [facility] Comment on above: Performed By: #### L [id number] ####[facility] ([facility])[address] [place] [address] Hematocrit (Bld) [Volume fraction] 40.9 % Normal 39.0-55.0 [facility] Comment on above: Performed By: #### L [id number] ####[facility] ([facility])[address] [place] [address] Hemoglobin (Bld) [Mass/Vol] 13.7 g/dL Normal 13.0-17.0 [facility] Comment on above: Performed By: #### L [id number] ####[facility] ([facility])[address] [place] [address] Immature granulocytes (Bld) [#/Vol] 0.03 10*3/uL Normal 0.00-0.20 [facility] Comment on above: Performed By: #### L [id number] ####[facility] ([facility])[address] [place] [address] Immature granulocytes/100 WBC (Bld) 0.4 % Normal 0.0-1.0 [facility] Comment on above: Performed By: #### L [id number] ####[facility] ([facility])[address] [place] [address] Lymphocytes (Bld) [#/Vol] 1.53 10*3/uL Normal 1.20-4.00 [facility] Comment on above: Performed By: #### L [id number] ####[facility] ([facility])[address] [place] [address] Lymphocytes/100 WBC (Bld) 19.9 % Low 20.0-45.0 [facility] Comment on above: Performed By: #### L [id number] ####[facility] ([facility])[address] [place] [address] MCH (RBC) [Entitic mass] 30.0 pg Normal 27.0-33.0 [facility] Comment on above: Performed By: #### L [id number] ####[facility] ([facility])[address] [place] [address] MCV (RBC) [Entitic vol] 89.7 fL Normal 82.0-98.0 U [facility] Comment on above: Performed By: #### L [id number] ####[facility] ([facility])[address] [place] [address] Monocytes (Bld) [#/Vol] 0.63 10*3/uL Normal 0.10-1.00 [facility] Comment on above: Performed By: #### L [id number] ####[facility] ([facility])[address] [place] [address] Monocytes/100 WBC (Bld) 8.2 % Normal 5.0-12.0 U [facility] Comment on above: Performed By: #### L [id number] ####[facility] ([facility])[address] [place] [address] Neutrophils (Bld) [#/Vol] 5.35 10*3/uL Normal 1.60-7.60 [facility] Comment on above: Performed By: #### L [id number] ####[facility] ([facility])[address] [place] [address] Neutrophils/100 WBC (Bld) 69.5 % Normal 40.0-72.0 [facility] Comment on above: Performed By: #### L [id number] ####[facility] ([facility])[address] [place] [address] NRBC (PER 100 WBCS) BY AUTOMATED COUNT 0.0 % Normal 0 [facility] Comment on above: Performed By: #### L [id number] ####[facility] ([facility])[address] [place] [address] PLATELETS (10*3/UL) IN BLOOD AUTOMATED COUNT 274 10*3/uL Normal 150-400 [facility] Comment on above: Performed By: #### L [id number] ####[facility] ([facility])[address] [place] [address] RBC (Bld) [#/Vol] 4.56 10*6/uL Normal 4.20-5.70 [facility] Comment on above: Performed By: #### L [id number] ####[facility] ([facility])[address] [place] [address] WBC (Bld) [#/Vol] 7.70 10*3/uL Normal 4.00-10.60 [facility] Comment on above: Performed By: #### L [id number] ####[facility] ([facility])[address] [place] [address] COMPREHENSIVE METABOLIC PANE Sonido 03-16-2024 Albumin [Mass/Vol] 4.0 g/dL Normal 3.5-5.7 [facility] Comment on above: Performed By: #### L [id number] ####[facility] ([facility])[address] [place] [address] ALP [Catalytic activity/Vol] 107 U/L High 34-104 [facility] Comment on above: Performed By: #### L [id number] ####[facility] ([facility])[address] [place] [address] ALT [Catalytic activity/Vol] 13 U/L Normal 7-52 [facility] Comment on above: Performed By: #### L [id number] ####[facility] ([facility])[address] [place] [address] Anion gap [Moles/Vol] 13 mmol/L Normal 7-20 [facility] Comment on above: Performed By: #### L [id number] ####[facility] ([facility])[address] [place] [address] AST [Catalytic activity/Vol] 15 U/L Normal 13-39 [facility] Comment on above: Performed By: #### L [id number] ####[facility] ([facility])[address] [place] [address] Bilirubin [Mass/Vol] 0.7 mg/dL Normal 0.3-1.0 [facility] Comment on above: Performed By: #### L [id number] ####[facility] ([facility])[address] [place] [address] Calcium [Mass/Vol] 9.9 mg/dL Normal 8.6-10.3 [facility] Comment on above: Performed By: #### L [id number] ####[facility] ([facility])[address] [place] [address] Chloride [Moles/Vol] 103 mmol/L Normal 98-107 [facility] Comment on above: Performed By: #### L [id number] ####[facility] ([facility])[address] [place] [address] CO2 [Moles/Vol] 22 mmol/L Normal 21-31 [facility] Comment on above: Performed By: #### L [id number] ####[facility] ([facility])[address] [place] [address] Creatinine [Mass/Vol] 1.84 mg/dL High 0.70-1.30 [facility] Comment on above: Performed By: #### L [id number] ####[facility] ([facility])[address] [place] [address] GLOMERULAR FILTRATION RATE ML/MIN/1.73 SQ M.PREDICTED 39.9 mL/min/1.73m*2 Low >60.0 [facility] Comment on above: Result Comment: [facility]???s estimated glomerular filtration rate (eGFR) will [...] of individuals. Performed By: #### L [id number] ####[facility] ([facility])[address] [place] [address] Glucose [Mass/Vol] 294 mg/dL High 70-100 [facility] Comment on above: Performed By: #### L [id number] ####[facility] ([facility])[address] [place] [address] Potassium [Moles/Vol] 4.7 mmol/L Normal 3.5-5.1 [facility] Comment on above: Performed By: #### L [id number] ####[facility] ([facility])[address] [place] [address] Protein [Mass/Vol] 7.5 g/dL Normal 6.0-8.3 [facility] Comment on above: Performed By: #### L [id number] ####[facility] ([facility])[address] [place] [address] Sodium [Moles/Vol] 133 mmol/L Low 136-145 [facility] Comment on above: Performed By: #### L [id number] ####[facility] ([facility])[address] [place] [address] Urea nitrogen [Mass/Vol] 23 mg/dL Normal 7-25 [facility] Comment on above: Performed By: #### L [id number] ####[facility] ([facility])[address] [place] [address] UREA NITROGEN/CREATININE (MASS RATIO) IN SER/PLAS 12.5 Normal [facility] Comment on above: Performed By: #### L [id number] ####[facility] ([facility])[address] [place] [address] HEMOGLOBIN A1Con 03-16-2024 Glucose [Mass/Vol] 209 mg/dL Normal [facility] Comment on above: Performed By: #### L [id number] ####[facility] ([facility])[address] [place] [address] HbA1c (Bld) [Mass fraction] 8.9 % High 4.0-6.0 [facility] Comment on above: Performed By: #### L [id number] ####[facility] ([facility])[address] [place] [address] Labon 03-16-2024 Lab Normal [facility] Orders Onlyon 03-16-2024 Orders Only Normal [facility] T3, FREEon 03-16-2024 TRIIODOTHYRONINE (T3) FREE (PG/ML) IN SER/PLAS 3.2 pg/mL Normal 2.5-3.9 [facility] Comment on above: Performed By: #### L [id number] ####[facility] ([facility])[address] [place] [address] T4, FREEon 03-16-2024 THYROXINE (T4) FREE (NG/DL) IN SER/PLAS 0.77 ng/dL Normal 0.71-1.85 [facility] Comment on above: Performed By: #### L [id number] ####[facility] ([facility])[address] [place] [address] TSHon 03-16-2024 THYROTROPIN (MIU/L) IN SER/PLAS BY DETECTION LIMIT <= 0.05 MIU/L 0.81 mIU/L Normal 0.34-5.60 [facility] Comment on above: Performed By: #### L [id number] ####[facility] ([facility])[address] [place] [address] Follow-Upon 03-07-2024 Follow-Up Normal [facility] CBC WITH AUTO DIFFERENTIALon 02-25-2024 Basophils (Bld) [#/Vol] 0.06 10*3/uL Normal 0.00-0.20 [facility] Comment on above: Performed By: #### L [id number] ####[facility] ([facility])[address] [place] [address] Basophils/100 WBC (Bld) 0.8 % Normal 0.0-1.0 [facility] Comment on above: Performed By: #### L [id number] ####[facility] ([facility])[address] [place] [address] Eosinophils (Bld) [#/Vol] 0.20 10*3/uL Normal 0.00-0.50 [facility] Comment on above: Performed By: #### L [id number] ####[facility] ([facility])[address] [place] [address] Eosinophils/100 WBC (Bld) 2.7 % Normal 0.0-6.0 [facility] Comment on above: Performed By: #### L [id number] ####[facility] ([facility])[address] [place] [address] Erythrocyte distribution width (RBC) [Ratio] 15.2 % High 11.5-15.0 [facility] Comment on above: Performed By: #### L [id number] ####[facility] ([facility])[address] [place] [address] ERYTHROCYTE MEAN CORPUSCULAR HEMOGLOBIN CONCENTRATION (G/DL) BY AUTOMATED 33.4 g/dL Normal 32.0-35.0 [facility] Comment on above: Performed By: #### L [id number] ####[facility] ([facility])[address] [place] [address] Hematocrit (Bld) [Volume fraction] 38.6 % Low 39.0-55.0 [facility] Comment on above: Performed By: #### L [id number] ####[facility] ([facility])[address] [place] [address] Hemoglobin (Bld) [Mass/Vol] 12.9 g/dL Low 13.0-17.0 [facility] Comment on above: Performed By: #### L [id number] ####[facility] ([facility])[address] [place] [address] Immature granulocytes (Bld) [#/Vol] 0.01 10*3/uL Normal 0.00-0.20 [facility] Comment on above: Performed By: #### L [id number] ####[facility] ([facility])[address] [place] [address] Immature granulocytes/100 WBC (Bld) 0.1 % Normal 0.0-1.0 [facility] Comment on above: Performed By: #### L [id number] ####[facility] ([facility])[address] [place] [address] Lymphocytes (Bld) [#/Vol] 1.82 10*3/uL Normal 1.20-4.00 [facility] Comment on above: Performed By: #### L [id number] ####[facility] ([facility])[address] [place] [address] Lymphocytes/100 WBC (Bld) 24.5 % Normal 20.0-45.0 [facility] Comment on above: Performed By: #### L [id number] ####[facility] ([facility])[address] [place] [address] MCH (RBC) [Entitic mass] 30.3 pg Normal 27.0-33.0 [facility] Comment on above: Performed By: #### L [id number] ####[facility] (BEAKER)[address] [place] [address] MCV (RBC) [Entitic vol] 90.6 fL Normal 82.0-98.0 U [facility] Comment on above: Performed By: #### L [id number] ####[facility] ([facility])[address] [place] [address] Monocytes (Bld) [#/Vol] 0.56 10*3/uL Normal 0.10-1.00 [facility] Comment on above: Performed By: #### L [id number] ####[facility] ([facility])[address] [place] [address] Monocytes/100 WBC (Bld) 7.5 % Normal 5.0-12.0 U [facility] Comment on above: Performed By: #### L [id number] ####[facility] ([facility])[address] [place] [address] Neutrophils (Bld) [#/Vol] 4.77 10*3/uL Normal 1.60-7.60 [facility] Comment on above: Performed By: #### L [id number] ####[facility] ([facility])[address] [place], [place] [address] Neutrophils/100 WBC (Bld) 64.4 % Normal 40.0-72.0 [facility] Comment on above: Performed By: #### L [id number] ####[facility] ([facility])[address] [place] [address] NRBC (PER 100 WBCS) BY AUTOMATED COUNT 0.0 % Normal 0 [facility] Comment on above: Performed By: #### L [id number] ####[facility] ([facility])[address] [place] [address] PLATELETS (10*3/UL) IN BLOOD AUTOMATED COUNT 251 10*3/uL Normal 150-400 [facility] Comment on above: Performed By: #### L [id number] ####[facility] ([facility])[address] [place] [address] RBC (Bld) [#/Vol] 4.26 10*6/uL Normal 4.20-5.70 [facility] Comment on above: Performed By: #### L [id number] ####[facility] ([facility])[address] [place] [address] WBC (Bld) [#/Vol] 7.42 10*3/uL Normal 4.00-10.60 [facility] Comment on above: Performed By: #### L [id number] ####[facility] ([facility])[address] [place] [address] COMPREHENSIVE METABOLIC PANE [facility] 02-25-2024 Albumin [Mass/Vol] 3.9 g/dL Normal 3.5-5.7 [facility] Comment on above: Performed By: #### L [id number] ####[facility] ([facility])[address] [place] [address] ALP [Catalytic activity/Vol] 103 U/L Normal 34-104 [facility] Comment on above: Performed By: #### L [id number] ####[facility] ([facility])[address] [place] [address] ALT [Catalytic activity/Vol] 14 U/L Normal 7-52 [facility] Comment on above: Performed By: #### L [id number] ####[facility] ([facility])[address] [place] [address] Anion gap [Moles/Vol] 13 mmol/L Normal 7-20 [facility] Comment on above: Performed By: #### L [id number] ####[facility] ([facility])[address] [place] [address] AST [Catalytic activity/Vol] 14 U/L Normal 13-39 [facility] Comment on above: Performed By: #### L [id number] ####[facility] ([facility])[address] [place] [address] Bilirubin [Mass/Vol] 0.6 mg/dL Normal 0.3-1.0 [facility] Comment on above: Performed By: #### L [id number] ####[facility] (BEAKER)[address] [place] [address] Calcium [Mass/Vol] 9.5 mg/dL Normal 8.6-10.3 [facility] Comment on above: Performed By: #### L [id number] ####[facility] ([facility])[address] [place] [address] Chloride [Moles/Vol] 103 mmol/L Normal 98-107 [facility] Comment on above: Performed By: #### L [id number] ####[facility] ([facility])[address] [place] [address] CO2 [Moles/Vol] 24 mmol/L Normal 21-31 [facility] Comment on above: Performed By: #### L [id number] ####[facility] ([facility])[address] [place] [address] Creatinine [Mass/Vol] 2.05 mg/dL High 0.70-1.30 [facility] Comment on above: Performed By: #### L [id number] ####[facility] ([facility])[address] [place] [address] GLOMERULAR FILTRATION RATE ML/MIN/1.73 SQ M.PREDICTED 35.1 mL/min/1.73m*2 Low >60.0 [facility] Comment on above: Result Comment: [facility]???s estimated glomerular filtration rate (eGFR) will [...] of individuals. Performed By: #### L [id number] ####[facility] ([facility]ER)[address] [place] [address] Glucose [Mass/Vol] 238 mg/dL High 70-100 [facility] Comment on above: Performed By: #### L [id number] ####[facility] ([facility])[address] [place] [address] Potassium [Moles/Vol] 4.7 mmol/L Normal 3.5-5.1 [facility] Comment on above: Performed By: #### L [id number] ####[facility] ([facility])[address] [place] [address] Protein [Mass/Vol] 7.3 g/dL Normal 6.0-8.3 [facility] Comment on above: Performed By: #### L [id number] ####[facility] ([facility])[address] [place] [address] Sodium [Moles/Vol] 135 mmol/L Low 136-145 [facility] Comment on above: Performed By: #### L [id number] ####[facility] ([facility])[address] [place] [address] Urea nitrogen [Mass/Vol] 19 mg/dL Normal 7-25 [facility] Comment on above: Performed By: #### L [id number] ####[facility] ([facility])[address] [place] [address] UREA NITROGEN/CREATININE (MASS RATIO) IN SER/PLAS 9.3 Normal [facility] Comment on above: Performed By: #### L [id number] ####[facility] ([facility])[address] [place] [address] CT CHEST WO IV CONTRASTon CT CHEST WO IV CONTRAST Invalid Interpretation Code [facility] Labon 02-25-2024 Lab Normal [facility] Orders Onlyon 02-25-2024 Orders Only Normal [facility] T3, FREEon 02-25-2024 TRIIODOTHYRONINE (T3) FREE (PG/ML) IN SER/PLAS 3.3 pg/mL Normal 2.5-3.9 [facility] Comment on above: Performed By: #### L [id number] ####[facility] ([facility])[address] [place] [address] T4, FREEon 02-25-2024 THYROXINE (T4) FREE (NG/DL) IN SER/PLAS 0.76 ng/dL Normal 0.71-1.85 [facility] Comment on above: Performed By: #### L [id number] ####[facility] ([facility])[address] [place] [address] TSHon 02-25-2024 THYROTROPIN (MIU/L) IN SER/PLAS BY DETECTION LIMIT <= 0.05 MIU/L 0.84 mIU/L Normal 0.34-5.60 [facility] Comment on above: Performed By: #### L [id number] ####[facility] ([facility])[address] [place] [address] Orders Onlyon 02-21-2024 Orders Only Normal [facility] CBC WITH AUTO DIFFERENTIALon 02-03-2024 Basophils (Bld) [#/Vol] 0.06 10*3/uL Normal 0.00-0.20 [facility] Comment on above: Performed By: #### L [id number] ####[facility] ([facility])[address] [place] [address] Basophils/100 WBC (Bld) 0.7 % Normal 0.0-1.0 U [facility] Comment on above: Performed By: #### L [id number] ####[facility] ([facility])[address] [place] [address] Eosinophils (Bld) [#/Vol] 0.29 10*3/uL Normal 0.00-0.50 [facility] Comment on above: Performed By: #### L [id number] ####[facility] ([facility])[address] [place] [address] Eosinophils/100 WBC (Bld) 3.3 % Normal 0.0-6.0 [facility] Comment on above: Performed By: #### L [id number] ####[facility] ([facility])[address] [place] [address] Erythrocyte distribution width (RBC) [Ratio] 15.5 % High 11.5-15.0 [facility] Comment on above: Performed By: #### L [id number] ####[facility] ([facility])[address] [place] [address] ERYTHROCYTE MEAN CORPUSCULAR HEMOGLOBIN CONCENTRATION (G/DL) BY AUTOMATED 33.0 g/dL Normal 32.0-35.0 [facility] Comment on above: Performed By: #### L [id number] ####[facility] ([facility])[address] [place] [address] Hematocrit (Bld) [Volume fraction] 41.5 % Normal 39.0-55.0 [facility] Comment on above: Performed By: #### L [id number] ####[facility] ([facility])[address] [place] [address] Hemoglobin (Bld) [Mass/Vol] 13.7 g/dL Normal 13.0-17.0 [facility] Comment on above: Performed By: #### L [id number] ####[facility] ([facility]AKER)[address] [place] [address] Immature granulocytes (Bld) [#/Vol] 0.03 10*3/uL Normal 0.00-0.20 [facility] Comment on above: Performed By: #### L [id number] ####[facility] ([facility])[address] [place] [address] Immature granulocytes/100 WBC (Bld) 0.3 % Normal 0.0-1.0 [facility] Comment on above: Performed By: #### L [id number] ####[facility] ([facility])[address] [place] [address] Lymphocytes (Bld) [#/Vol] 2.49 10*3/uL Normal 1.20-4.00 [facility] Comment on above: Performed By: #### L [id number] ####[facility] ([facility]ER)[address] [place] [address] Lymphocytes/100 WBC (Bld) 28.4 % Normal 20.0-45.0 [facility] Comment on above: Performed By: #### L [id number] ####[facility] ([facility])[address] [place] [address] MCH (RBC) [Entitic mass] 29.5 pg Normal 27.0-33.0 [facility] Comment on above: Performed By: #### L [id number] ####[facility] ([facility])[address] [place] [address] MCV (RBC) [Entitic vol] 89.4 fL Normal 82.0-98.0 U [facility] Comment on above: Performed By: #### L [id number] ####[facility] ([facility])[address] [place] [address] Monocytes (Bld) [#/Vol] 0.72 10*3/uL Normal 0.10-1.00 [facility] Comment on above: Performed By: #### L [id number] ####[facility] ([facility])[address] [place] [address] Monocytes/100 WBC (Bld) 8.2 % Normal 5.0-12.0 U [facility] Comment on above: Performed By: #### L [id number] ####[facility] ([facility])[address] [place] [address] Neutrophils (Bld) [#/Vol] 5.18 10*3/uL Normal 1.60-7.60 [facility] Comment on above: Performed By: #### L [id number] ####[facility] ([facility])[address] [place] [address] Neutrophils/100 WBC (Bld) 59.1 % Normal 40.0-72.0 [facility] Comment on above: Performed By: #### L [id number] ####[facility] ([facility])[address] [place] [address] NRBC (PER 100 WBCS) BY AUTOMATED COUNT 0.0 % Normal 0 [facility] Comment on above: Performed By: #### L [id number] ####[facility] ([facility])[address] [place] [address] PLATELETS (10*3/UL) IN BLOOD AUTOMATED COUNT 293 10*3/uL Normal 150-400 [facility] Comment on above: Performed By: #### L [id number] ####[facility] ([facility])[address] [place] [address] RBC (Bld) [#/Vol] 4.64 10*6/uL Normal 4.20-5.70 [facility] Comment on above: Performed By: #### L [id number] ####[facility] ([facility])[address] [place] [address] WBC (Bld) [#/Vol] 8.77 10*3/uL Normal 4.00-10.60 [facility] Comment on above: Performed By: #### L [id number] ####[facility] ([facility])[address] [place] [address] COMPREHENSIVE METABOLIC PANE [facility] 02-03-2024 Albumin [Mass/Vol] 3.9 g/dL Normal 3.5-5.7 [facility] Comment on above: Performed By: #### L [id number] ####[facility] ([facility])[address] [place] [address] ALP [Catalytic activity/Vol] 114 U/L High 34-104 [facility] Comment on above: Performed By: #### L [id number] ####[facility] ([facility])[address] [place] [address] ALT [Catalytic activity/Vol] 16 U/L Normal 7-52 [facility] Comment on above: Performed By: #### L [id number] ####[facility] ([facility])[address] [place] [address] Anion gap [Moles/Vol] 14 mmol/L Normal 7-20 [facility] Comment on above: Performed By: #### L [id number] ####[facility] ([facility])[address] [place] [address] AST [Catalytic activity/Vol] 16 U/L Normal 13-39 [facility] Comment on above: Performed By: #### L [id number] ####[facility] ([facility])[address] [place] [address] Bilirubin [Mass/Vol] 0.6 mg/dL Normal 0.3-1.0 [facility] Comment on above: Performed By: #### L [id number] ####[facility] ([facility])[address] [place] [address] Calcium [Mass/Vol] 10.2 mg/dL Normal 8.6-10.3 [facility] Comment on above: Performed By: #### L [id number] ####[facility] ([facility])[address] [place] [address] Chloride [Moles/Vol] 101 mmol/L Normal 98-107 [facility] Comment on above: Performed By: #### L [id number] ####[facility] ([facility])[address] [place] [address] CO2 [Moles/Vol] 24 mmol/L Normal 21-31 [facility] Comment on above: Performed By: #### L [id number] ####[facility] ([facility])[address] [place] [address] Creatinine [Mass/Vol] 1.71 mg/dL High 0.70-1.30 [facility] Comment on above: Performed By: #### L [id number] ####[facility] ([facility])[address] [place] [address] GLOMERULAR FILTRATION RATE ML/MIN/1.73 SQ M.PREDICTED 43.6 mL/min/1.73m*2 Low >60.0 [facility] Comment on above: Result Comment: [facility]???s estimated glomerular filtration rate (eGFR) will [...] of individuals. Performed By: #### L [id number] ####[facility] ([facility])[address] [place] [address] Glucose [Mass/Vol] 202 mg/dL High 70-100 [facility] Comment on above: Performed By: #### L [id number] ####[facility] ([facility])[address] [place] [address] Potassium [Moles/Vol] 4.6 mmol/L Normal 3.5-5.1 [facility] Comment on above: Performed By: #### L [id number] ####[facility] ([facility])[address] [place] [address] Protein [Mass/Vol] 7.3 g/dL Normal 6.0-8.3 [facility] Comment on above: Performed By: #### L [id number] ####[facility] ([facility])[address] [place] [address] Sodium [Moles/Vol] 134 mmol/L Low 136-145 [facility] Comment on above: Performed By: #### L [id number] ####[facility] ([facility])[address] [place] [address] Urea nitrogen [Mass/Vol] 29 mg/dL High 7-25 [facility] Comment on above: Performed By: #### L [id number] ####[facility] ([facility])[address] [place] [address] UREA NITROGEN/CREATININE (MASS RATIO) IN SER/PLAS 17.0 Normal [facility] Comment on above: Performed By: #### L [id number] ####[facility] ([facility])[address] [place] [address] Labon 02-03-2024 Lab Normal [facility] Orders Onlyon 02-03-2024 Orders Only Normal [facility] T3, FREEon 02-03-2024 TRIIODOTHYRONINE (T3) FREE (PG/ML) IN SER/PLAS 3.3 pg/mL Normal 2.5-3.9 [facility] Comment on above: Performed By: #### L [id number] ####[facility] ([facility])[address] [place] [address] T4, FREEon 02-03-2024 THYROXINE (T4) FREE (NG/DL) IN SER/PLAS 0.70 ng/dL Low 0.71-1.85 [facility] Comment on above: Performed By: #### L [id number] ####[facility] ([facility])[address] [place] [address] TSHon 02-03-2024 THYROTROPIN (MIU/L) IN SER/PLAS BY DETECTION LIMIT <= 0.05 MIU/L 1.01 mIU/L Normal 0.34-5.60 [facility] Comment on above: Performed By: #### L [id number] ####[facility] ([facility])[address] [place] [address] Orders Onlyon 01-19-2024 Orders Only Normal [facility] CBC WITH AUTO DIFFERENTIALon 01-13-2024 Basophils (Bld) [#/Vol] 0.04 10*3/uL Normal 0.00-0.20 [facility] Comment on above: Performed By: #### L [id number] ####[facility] ([facility])[address] [place] [address] Basophils/100 WBC (Bld) 0.7 % Normal 0.0-1.0 U [facility] Comment on above: Performed By: #### L [id number] ####[facility] ([facility])[address] [place] [address] Eosinophils (Bld) [#/Vol] 0.16 10*3/uL Normal 0.00-0.50 [facility] Comment on above: Performed By: #### L [id number] ####[facility] ([facility])[address] [place] [address] Eosinophils/100 WBC (Bld) 2.7 % Normal 0.0-6.0 [facility] Comment on above: Performed By: #### L [id number] ####[facility] ([facility])[address] [place] [address] Erythrocyte distribution width (RBC) [Ratio] 16.0 % High 11.5-15.0 [facility] Comment on above: Performed By: #### L [id number] ####[facility] ([facility])[address] [place] [address] ERYTHROCYTE MEAN CORPUSCULAR HEMOGLOBIN CONCENTRATION (G/DL) BY AUTOMATED 33.8 g/dL Normal 32.0-35.0 [facility] Comment on above: Performed By: #### L [id number] ####[facility] ([facility])[address] [place] [address] Hematocrit (Bld) [Volume fraction] 39.9 % Normal 39.0-55.0 [facility] Comment on above: Performed By: #### L [id number] ####[facility] ([facility])[address] [place] [address] Hemoglobin (Bld) [Mass/Vol] 13.5 g/dL Normal 13.0-17.0 [facility] Comment on above: Performed By: #### L [id number] ####[facility] ([facility])[address] [place] [address] Immature granulocytes (Bld) [#/Vol] 0.02 10*3/uL Normal 0.00-0.20 [facility] Comment on above: Performed By: #### L [id number] ####[facility] ([facility])[address] [place] [address] Immature granulocytes/100 WBC (Bld) 0.3 % Normal 0.0-1.0 [facility] Comment on above: Performed By: #### L [id number] ####[facility] ([facility])[address] [place] [address] Lymphocytes (Bld) [#/Vol] 1.49 10*3/uL Normal 1.20-4.00 [facility] Comment on above: Performed By: #### L [id number] ####[facility] ([facility])[address] [place] [address] Lymphocytes/100 WBC (Bld) 24.7 % Normal 20.0-45.0 [facility] Comment on above: Performed By: #### L [id number] ####[facility] ([facility])[address] [place] [address] MCH (RBC) [Entitic mass] 29.8 pg Normal 27.0-33.0 [facility] Comment on above: Performed By: #### L [id number] ####[facility] ([facility])[address] [place] [address] MCV (RBC) [Entitic vol] 88.1 fL Normal 82.0-98.0 U [facility] Comment on above: Performed By: #### L [id number] ####[facility] ([facility])[address] [place] [address] Monocytes (Bld) [#/Vol] 0.53 10*3/uL Normal 0.10-1.00 [facility] Comment on above: Performed By: #### L [id number] ####[facility] ([facility])[address] [place] [address] Monocytes/100 WBC (Bld) 8.8 % Normal 5.0-12.0 U [facility] Comment on above: Performed By: #### L [id number] ####[facility] ([facility])[address] [place] [address] Neutrophils (Bld) [#/Vol] 3.79 10*3/uL Normal 1.60-7.60 [facility] Comment on above: Performed By: #### L [id number] ####[facility] ([facility])[address] [place] [address] Neutrophils/100 WBC (Bld) 62.8 % Normal 40.0-72.0 [facility] Comment on above: Performed By: #### L [id number] ####[facility] ([facility])[address] [place] [address] NRBC (PER 100 WBCS) BY AUTOMATED COUNT 0.0 % Normal 0 [facility] Comment on above: Performed By: #### L [id number] ####[facility] ([facility])[address] [address] PLATELETS (10*3/UL) IN BLOOD AUTOMATED COUNT 254 10*3/uL Normal 150-400 [facility] Comment on above: Performed By: #### L [id number] ####[facility] ([facility])[address] [place] [address] RBC (Bld) [#/Vol] 4.53 10*6/uL Normal 4.20-5.70 [facility] Comment on above: Performed By: #### L [id number] ####[facility] ([facility])[address] [place], [place] [address] WBC (Bld) [#/Vol] 6.03 10*3/uL Normal 4.00-10.60 [facility] Comment on above: Performed By: #### L [id number] ####[facility] ([facility])[address] [place] [address] COMPREHENSIVE METABOLIC PANE Sonido 01-13-2024 Albumin [Mass/Vol] 3.9 g/dL Normal 3.5-5.7 [facility] Comment on above: Performed By: #### L [id number] ####[facility] ([facility])[address] [place] [address] ALP [Catalytic activity/Vol] 126 U/L High 34-104 [facility] Comment on above: Performed By: #### L [id number] ####[facility] ([facility])[address] [place] [address] ALT [Catalytic activity/Vol] 19 U/L Normal 7-52 [facility] Comment on above: Performed By: #### L [id number] ####[facility] ([facility])[address] [place] [address] Anion gap [Moles/Vol] 14 mmol/L Normal 7-20 [facility] Comment on above: Performed By: #### L [id number] ####[facility] ([facility])[address] [place] [address] AST [Catalytic activity/Vol] 15 U/L Normal 13-39 [facility] Comment on above: Performed By: #### L [id number] ####[facility] ([facility])[address] [place] [address] Bilirubin [Mass/Vol] 0.6 mg/dL Normal 0.3-1.0 [facility] Comment on above: Performed By: #### L [id number] ####[facility] ([facility])[address] [place] [address] Calcium [Mass/Vol] 9.9 mg/dL Normal 8.6-10.3 [facility] Comment on above: Performed By: #### L [id number] ####[facility] ([facility])[address] [place] [address] Chloride [Moles/Vol] 105 mmol/L Normal 98-107 [facility] Comment on above: Performed By: #### L [id number] ####[facility] ([facility])[address] [place] [address] CO2 [Moles/Vol] 22 mmol/L Normal 21-31 [facility] Comment on above: Performed By: #### L [id number] ####[facility] ([facility])[address] [place] [address] Creatinine [Mass/Vol] 1.78 mg/dL High 0.70-1.30 [facility] Comment on above: Performed By: #### L [id number] ####[facility] ([facility])[address] [place] [address] GLOMERULAR FILTRATION RATE ML/MIN/1.73 SQ M.PREDICTED 41.6 mL/min/1.73m*2 Low >60.0 [facility] Comment on above: Result Comment: The [facility]???s estimated glomerular filtration rate (eGFR) will [...] of individuals. Performed By: #### L [id number] ####[facility] ([facility])[address] [place] [address] Glucose [Mass/Vol] 213 mg/dL High 70-100 [facility] Comment on above: Performed By: #### L [id number] ####[facility] ([facility])[address] [place] [address] Potassium [Moles/Vol] 4.8 mmol/L Normal 3.5-5.1 [facility] Comment on above: Performed By: #### L [id number] ####[facility] ([facility])[address] [place] [address] Protein [Mass/Vol] 7.5 g/dL Normal 6.0-8.3 [facility] Comment on above: Performed By: #### L [id number] ####[facility] ([facility])[address] [place] [address] Sodium [Moles/Vol] 136 mmol/L Normal 136-145 [facility] Comment on above: Performed By: #### L [id number] ####[facility] ([facility])[address] [place] [address] Urea nitrogen [Mass/Vol] 29 mg/dL High 7-25 [facility] Comment on above: Performed By: #### L [id number] ####[facility] ([facility])[address] [place] [address] UREA NITROGEN/CREATININE (MASS RATIO) IN SER/PLAS 16.3 Normal [facility] Comment on above: Performed By: #### L [id number] ####[facility] ([facility])[address] [place] [address] Labon 01-13-2024 Lab Normal [facility] T3, FREEon 01-13-2024 TRIIODOTHYRONINE (T3) FREE (PG/ML) IN SER/PLAS 2.8 pg/mL Normal 2.5-3.9 [facility] Comment on above: Performed By: #### L [id number] ####[facility] ([facility])[address] [place] [address] T4, FREEon 01-13-2024 THYROXINE (T4) FREE (NG/DL) IN SER/PLAS 0.79 ng/dL Normal 0.71-1.85 [facility] Comment on above: Performed By: #### L [id number] ####[facility] ([facility])[address] [place] [address] TSHon 01-13-2024 THYROTROPIN (MIU/L) IN SER/PLAS BY DETECTION LIMIT <= 0.05 MIU/L 0.77 mIU/L Normal 0.34-5.60 [facility] Comment on above: Performed By: #### L [id number] ####[facility] ([facility])[place] [address] 29on 12-23-2023 29 Addended by: JEWELL MERINO on: 12/27/2023 02:17 PM Modules accepted: Orders Normal [facility] CBC WITH AUTO DIFFERENTIALon 12-23-2023 Basophils (Bld) [#/Vol] 0.05 10*3/uL Normal 0.00-0.20 [facility] Comment on above: Performed By: #### L [id number] ####[facility] ([facility])[address] [place] [address] Basophils/100 WBC (Bld) 0.7 % Normal 0.0-1.0 [facility] Comment on above: Performed By: #### L [id number] ####[facility] ([facility])[address] [place] [address] Eosinophils (Bld) [#/Vol] 0.20 10*3/uL Normal 0.00-0.50 [facility] Comment on above: Performed By: #### L [id number] ####[facility] ([facility])[address] [place] [address] Eosinophils/100 WBC (Bld) 2.8 % Normal 0.0-6.0 [facility] Comment on above: Performed By: #### L [id number] ####[facility] ([facility])[address] [place] [address] Erythrocyte distribution width (RBC) [Ratio] 15.0 % Normal 11.5-15.0 [facility] Comment on above: Performed By: #### L [id number] ####[facility] ([facility])[address] [place] [address] ERYTHROCYTE MEAN CORPUSCULAR HEMOGLOBIN CONCENTRATION (G/DL) BY AUTOMATED 33.3 g/dL Normal 32.0-35.0 [facility] Comment on above: Performed By: #### L [id number] ####[facility] ([facility])[address] [place] [address] Hematocrit (Bld) [Volume fraction] 42.4 % Normal 39.0-55.0 [facility] Comment on above: Performed By: #### L [id number] ####[facility] ([facility])[address] [place] [address] Hemoglobin (Bld) [Mass/Vol] 14.1 g/dL Normal 13.0-17.0 [facility] Comment on above: Performed By: #### L [id number] ####[facility] ([facility])[address] [place] [address] Immature granulocytes (Bld) [#/Vol] 0.03 10*3/uL Normal 0.00-0.20 [facility] Comment on above: Performed By: #### L [id number] ####[facility] ([facility])[address] [place] [address] Immature granulocytes/100 WBC (Bld) 0.4 % Normal 0.0-1.0 [facility] Comment on above: Performed By: #### L [id number] ####[facility] ([facility])[address] [place] [address] Lymphocytes (Bld) [#/Vol] 2.25 10*3/uL Normal 1.20-4.00 [facility] Comment on above: Performed By: #### L [id number] ####[facility] ([facility])[address] [place] [address] Lymphocytes/100 WBC (Bld) 31.6 % Normal 20.0-45.0 [facility] Comment on above: Performed By: #### L [id number] ####[facility] ([facility])[address] [place] [address] MCH (RBC) [Entitic mass] 28.8 pg Normal 27.0-33.0 [facility] Comment on above: Performed By: #### L [id number] ####[facility] ([facility])[address] [place] [address] MCV (RBC) [Entitic vol] 86.5 fL Normal 82.0-98.0 U [facility] Comment on above: Performed By: #### L [id number] ####[facility] ([facility])[address] [place] [address] Monocytes (Bld) [#/Vol] 0.59 10*3/uL Normal 0.10-1.00 [facility] Comment on above: Performed By: #### L [id number] ####[facility] ([facility])[address] [place] [address] Monocytes/100 WBC (Bld) 8.3 % Normal 5.0-12.0 U [facility] Comment on above: Performed By: #### L [id number] ####[facility] ([facility])[address] [place] [address] Neutrophils (Bld) [#/Vol] 4.00 10*3/uL Normal 1.60-7.60 [facility] Comment on above: Performed By: #### L [id number] ####[facility] ([facility])[address] [place] [address] Neutrophils/100 WBC (Bld) 56.2 % Normal 40.0-72.0 [facility] Comment on above: Performed By: #### L [id number] ####[facility] ([facility])[address] [place] [address] NRBC (PER 100 WBCS) BY AUTOMATED COUNT 0.0 % Normal 0 [facility] Comment on above: Performed By: #### L [id number] ####[facility] ([facility])[address] [place] [address] PLATELETS (10*3/UL) IN BLOOD AUTOMATED COUNT 263 10*3/uL Normal 150-400 [facility] Comment on above: Performed By: #### L [id number] ####[facility] ([facility])[address] [place] [address] RBC (Bld) [#/Vol] 4.90 10*6/uL Normal 4.20-5.70 [facility] Comment on above: Performed By: #### L [id number] ####[facility] ([facility])[address] [place] [address] WBC (Bld) [#/Vol] 7.12 10*3/uL Normal 4.00-10.60 [facility] Comment on above: Performed By: #### L [id number] ####[facility] ([facility])[address] [place] [address] COMPREHENSIVE METABOLIC PANE Sonido 12-23-2023 Albumin [Mass/Vol] 4.1 g/dL Normal 3.5-5.7 [facility] Comment on above: Performed By: #### L [id number] ####[facility] ([facility])[address] [place] [address] ALP [Catalytic activity/Vol] 136 U/L High 34-104 [facility] Comment on above: Performed By: #### L [id number] ####[facility] ([facility])[address] [place] [address] ALT [Catalytic activity/Vol] 14 U/L Normal 7-52 [facility] Comment on above: Performed By: #### L [id number] ####[facility] ([facility])[address] [place] [address] Anion gap [Moles/Vol] 11 mmol/L Normal 7-20 [facility] Comment on above: Performed By: #### L [id number] ####[facility] ([facility])[address] [place] [address] AST [Catalytic activity/Vol] 14 U/L Normal 13-39 [facility] Comment on above: Performed By: #### L [id number] ####[facility] ([facility])[address] [place] [address] Bilirubin [Mass/Vol] 0.6 mg/dL Normal 0.3-1.0 [facility] Comment on above: Performed By: #### L [id number] ####[facility] ([facility])[address] [place] [address] Calcium [Mass/Vol] 10.5 mg/dL High 8.6-10.3 [facility] Comment on above: Performed By: #### L [id number] ####[facility] ([facility])[address] [place] [address] Chloride [Moles/Vol] 103 mmol/L Normal 98-107 [facility] Comment on above: Performed By: #### L [id number] ####[facility] ([facility])[address] [place] [address] CO2 [Moles/Vol] 26 mmol/L Normal 21-31 [facility] Comment on above: Performed By: #### L [id number] ####[facility] ([facility])[address] [place] [address] Creatinine [Mass/Vol] 1.72 mg/dL High 0.70-1.30 [facility] Comment on above: Performed By: #### L [id number] ####[facility] ([facility])[address] [place] [address] GLOMERULAR FILTRATION RATE ML/MIN/1.73 SQ M.PREDICTED 43.3 mL/min/1.73m*2 Low >60.0 [facility] Comment on above: Result Comment: The [facility]???s estimated glomerular filtration rate (eGFR) will [...] of individuals. Performed By: #### L [id number] ####[facility] ([facility])[address] [place] [address] Glucose [Mass/Vol] 190 mg/dL High 70-100 [facility] Comment on above: Performed By: #### L [id number] ####[facility] ([facility])[address] [place] [address] Potassium [Moles/Vol] 4.7 mmol/L Normal 3.5-5.1 [facility] Comment on above: Performed By: #### L [id number] ####[facility] ([facility])[address] [place] [address] Protein [Mass/Vol] 7.8 g/dL Normal 6.0-8.3 [facility] Comment on above: Performed By: #### L [id number] ####[facility] ([facility])[address] [place] [address] Sodium [Moles/Vol] 135 mmol/L Low 136-145 [facility] Comment on above: Performed By: #### L [id number] ####[facility] ([facility])[address] [place] [address] Urea nitrogen [Mass/Vol] 30 mg/dL High 7-25 [facility] Comment on above: Performed By: #### L [id number] ####[facility] ([facility])[address] [place] [address] UREA NITROGEN/CREATININE (MASS RATIO) IN SER/PLAS 17.4 Normal [facility] Comment on above: Performed By: #### L [id number] ####[facility] ([facility])[address] [place] [address] CORTISOLon 12-23-2023 CORTISOL (UG/DL) IN SER/PLAS 10.0 ug/dL Normal 6-23 [facility] Comment on above: Order Comment: Obtai n level in the morning prior to starting immunotherapy Performed By: #### L [id number] ####[facility] ([facility])[address] [place] [address] Follow-Upon 12-23-2023 Follow-Up Normal [facility] IMMUNOFIXATION ELECTROPHORES Mohan 12-23-2023 IMMUNOFIXATION ELECTROPHORESIS 1 See attached report. Normal [facility] Comment on above: Result Comment: This is an appended report. These results have been appended to a previously final verified report. Performed By: #### L [id number] ####[facility] ([facility])[address] [place] [address] Magnesium [Mass/Vol] 1540 mg/dL Normal 591-1540 [facility] Comment on above: Performed By: #### L [id number] ####[facility] ([facility])[address] [place] [address] Magnesium [Mass/Vol] 372 mg/dL Normal 60-413 [facility] Comment on above: Performed By: #### L [id number] ####[facility] ([facility])[address] [place] [address] Magnesium [Mass/Vol] 87.1 mg/dL Normal 54-285 [facility] Comment on above: Performed By: #### L [id number] ####[facility] ([facility])[address] [place] [address] KAPPA / LAMBDA LIGHT CHAINS, FREEon 12-23-2023 IMMUNOGLOBULIN LIGHT CHAINS KAPPA/LAMBDA (MASS RATIO) IN SERUM 1.34 Normal 0.22-1.74 [facility] Comment on above: Result Comment: Test Performed by [employer] [address] [place] [id number] - Released 12/27/2023 19:00 Performed By: #### L [id number] ####[employer] [id number] [place] [address] IMMUNOGLOBULIN LIGHT CHAINS.KAPPA (MG/DL) IN SERUM 104.0 mg/L High <20.8 [facility] Comment on above: Result Comment: Perf ormed using Diazyme reagent on [employer]. Results obtained with different assay methods cannot be used interchangeably. Performed By: #### L [id number] ####[employer] [id number] [place] [address] IMMUNOGLOBULIN LIGHT CHAINS.LAMBDA (MG/DL) IN SERUM 77.7 mg/L High 4.2-27.7 [facility] Comment on above: Result Comment: Perf ormed using D[employer] reagent on [employer]. Results obtained with different assay methods cannot be used interchangeably. Performed By: #### L [id number] ####[employer] [id number] [place] [address] Labon 12-23-2023 Lab Normal [facility] Orders Onlyon 12-23-2023 Orders Only Normal [facility] PROTEIN ELECTROPHORESIS, SER UMon 12-23-2023 Protein [Mass/Vol] 7.3 g/dL Normal 6.0-8.3 [facility] Comment on above: Order Comment: Elect ronically signed by Beatriz Dubon MD on 01/03/24 at 5:47 PM. Performed By: #### L [id number] ####[facility] ([facility])[address] [place] [address] PROTEIN FRACTION (INTERPRETATION) IN SER/PLAS BY ELECTROPHORESIS See attached report [facility] Comment on above: Order Comment: Elect ronically signed by Beatriz Dubon MD on 01/03/24 at 5:47 PM. Performed By: #### L [id number] ####[facility] ([facility])[address] [place] [address] T3, FREEon 12-23-2023 TRIIODOTHYRONINE (T3) FREE (PG/ML) IN SER/PLAS 3.2 pg/mL Normal 2.5-3.9 [facility] Comment on above: Performed By: #### L [id number] ####[facility] ([facility])[address] [place] [address] T4, FREEon 12-23-2023 THYROXINE (T4) FREE (NG/DL) IN SER/PLAS 1.00 ng/dL Normal 0.71-1.85 [facility] Comment on above: Performed By: #### L [id number] ####[facility] ([facility])[address] [place] [address] TSHon 12-23-2023 THYROTROPIN (MIU/L) IN SER/PLAS BY DETECTION LIMIT <= 0.05 MIU/L 0.68 mIU/L Normal 0.34-5.60 [facility] Comment on above: Performed By: #### L [id number] ####[facility] ([facility])[address] [place] [address] Orders Onlyon 12-22-2023 Orders Only [facility] [id number] 12-16-2023 [id number] [facility] ANESon 12-16-2023 ANES Normal [facility] ANES [facility] HPon 12-16-2023 HP [facility] NURSNOTEon 12-16-2023 NURSNOTE Discharge instructio ns discussed with pt and pt's . Stated understanding. Pt does not need prescriptions filled. Normal [facility] OPNOTEon 12-16-2023 OPNOTE Normal [facility] POCT GLUCOSE METER UNSOLICIT ED RESULTSon 12-16-2023 Glucose [Mass/Vol] 183 mg/dL High 70-105 [facility] Comment on above: Order Comment: Waive d Testing in the ED is performed under the ED CLIA certificate #[id number]. Result Comment: dspe ars Performed By: #### L [id number] ####[facility] ([facility])[address] [place] [address] Glucose [Mass/Vol] 186 mg/dL High 70-105 [facility] Comment on above: Order Comment: Waive d Testing in the ED is performed under the ED CLIA certificate #[id number]. Result Comment: msch juan j Performed By: #### L [id number] ####[facility] ([facility])[address] [place] [address] CBCon 12-13-2023 Erythrocyte distribution width (RBC) [Ratio] 14.8 % Normal 11.5-15.0 [facility] Comment on above: Performed By: #### L [id number] ####[facility] ([facility])[address] [place] [address] ERYTHROCYTE MEAN CORPUSCULAR HEMOGLOBIN CONCENTRATION (G/DL) BY AUTOMATED 34.0 g/dL Normal 32.0-35.0 [facility] Comment on above: Performed By: #### L [id number] ####[facility] ([facility])[address] [place] [address] Hematocrit (Bld) [Volume fraction] 40.6 % Normal 39.0-55.0 [facility] Comment on above: Performed By: #### L [id number] ####[facility] ([facility])[address] [place] [address] Hemoglobin (Bld) [Mass/Vol] 13.8 g/dL Normal 13.0-17.0 [facility] Comment on above: Performed By: #### L [id number] ####[facility] ([facility])[address] [place] [address] MCH (RBC) [Entitic mass] 29.4 pg Normal 27.0-33.0 [facility] Comment on above: Performed By: #### L [id number] ####[facility] ([facility])[address] [place] [address] MCV (RBC) [Entitic vol] 86.6 fL Normal 82.0-98.0 U [facility] Comment on above: Performed By: #### L [id number] ####[facility] ([facility])[address] [place] [address] PLATELETS (10*3/UL) IN BLOOD AUTOMATED COUNT 231 10*3/uL Normal 150-400 [facility] Comment on above: Performed By: #### L [id number] ####[facility] ([facility])[address] [place] [address] RBC (Bld) [#/Vol] 4.69 10*6/uL Normal 4.20-5.70 [facility] Comment on above: Performed By: #### L [id number] ####[facility] ([facility])[address] [place] [address] WBC (Bld) [#/Vol] 7.06 10*3/uL Normal 4.00-10.60 [facility] Comment on above: Performed By: #### L [id number] ####[facility] ([facility])[address] [place] [address] COMPREHENSIVE METABOLIC PANE Sonido 12-13-2023 Albumin [Mass/Vol] 4.0 g/dL Normal 3.5-5.7 [facility] Comment on above: Performed By: #### L [id number] ####[facility] ([facility])[address] [place] [address] ALP [Catalytic activity/Vol] 117 U/L High 34-104 [facility] Comment on above: Performed By: #### L [id number] ####[facility] ([facility])[address] [place] [address] ALT [Catalytic activity/Vol] 19 U/L Normal 7-52 [facility] Comment on above: Performed By: #### L [id number] ####[facility] ([facility])[address] [place] [address] Anion gap [Moles/Vol] 11 mmol/L Normal 7-20 [facility] Comment on above: Performed By: #### L [id number] ####[facility] ([facility])[address] [place] [address] AST [Catalytic activity/Vol] 18 U/L Normal 13-39 [facility] Comment on above: Performed By: #### L [id number] ####[facility] ([facility])[address] [place] [address] Bilirubin [Mass/Vol] 0.5 mg/dL Normal 0.3-1.0 [facility] Comment on above: Performed By: #### L [id number] ####[facility] ([facility])[address] [place] [address] Calcium [Mass/Vol] 9.9 mg/dL Normal 8.6-10.3 [facility] Comment on above: Performed By: #### L [id number] ####[facility] ([facility])[address] [place] [address] Chloride [Moles/Vol] 102 mmol/L Normal 98-107 [facility] Comment on above: Performed By: #### L [id number] ####[facility] ([facility])[address] [place] [address] CO2 [Moles/Vol] 25 mmol/L Normal 21-31 [facility] Comment on above: Performed By: #### L [id number] ####[facility] ([facility])[address] [place] [address] Creatinine [Mass/Vol] 2.03 mg/dL High 0.70-1.30 [facility] Comment on above: Performed By: #### L [id number] ####[facility] ([facility])[address] [place] [address] GLOMERULAR FILTRATION RATE ML/MIN/1.73 SQ M.PREDICTED 35.5 mL/min/1.73m*2 Low >60.0 [facility] Comment on above: Result Comment: [facility]???s estimated glomerular filtration rate (eGFR) will [...] of individuals. Performed By: #### L [id number] ####[facility] ([facility])[address] [place] [address] Glucose [Mass/Vol] 264 mg/dL High 70-100 [facility] Comment on above: Performed By: #### L [id number] ####[facility] ([facility])[address] [place] [address] Potassium [Moles/Vol] 4.4 mmol/L Normal 3.5-5.1 [facility] Comment on above: Performed By: #### L [id number] ####[facility] ([facility])[address] [place] [address] Protein [Mass/Vol] 7.4 g/dL Normal 6.0-8.3 [facility] Comment on above: Performed By: #### L [id number] ####[facility] ([facility])[address] [place] [address] Sodium [Moles/Vol] 134 mmol/L Low 136-145 [facility] Comment on above: Performed By: #### L [id number] ####[facility] ([facility])[address] [place] [address] Urea nitrogen [Mass/Vol] 32 mg/dL High 7-25 [facility] Comment on above: Performed By: #### L [id number] ####[facility] ([facility])[address] [place] [address] UREA NITROGEN/CREATININE (MASS RATIO) IN SER/PLAS 15.8 Normal [facility] Comment on above: Performed By: #### L [id number] ####[facility] ([facility])[address] [place] [address] Labon 12-13-2023 Lab Normal [facility] Orders Onlyon 12-10-2023 Orders Only Normal [facility] [id number] 12-09-2023 [id number] Normal [facility] APTTon 12-09-2023 ACTIVATED PARTIAL THROMBOPLASTIN TIME IN PPP BY COAGULATION ASSAY 35.5 Seconds High 25.0-35.0 [facility] Comment on above: Result Comment: Clin ical significance of the APTT is questionable in the presence of heparin. Performed By: #### L [id number] ####[facility] ([facility])[address] [place] [address] Infusionon 12-09-2023 Infusion Normal [facility] Labon 12-09-2023 Lab Normal [facility] MRSA/MSSA DNA NASALon 2023 MRSA DNA Negative Normal Negative [facility] Comment on above: Order Comment: Testi [...] preclude nasal colonization. Performed By: #### L [id number] ####[facility] ([facility])[address] [place] [address] MSSA DNA Positive Abnormal Negative [facility] Comment on above: Order Comment: Testi [...] preclude nasal colonization. Performed By: #### L [id number] ####[facility] ([employer])[address] [place] [address] Orders Onlyon 12-09-2023 Orders Only Normal [facility] PROTIME-INRon 12-09-2023 INR IN PPP BY COAGULATION ASSAY 1.16 High 0.90-1.10 [facility] Comment on above: Result Comment: ACCC [...] CHEST 1995;[id number]. Performed By: #### L [id number] ####[facility] ([employer])[address] [place] [address] PROTHROMBIN TIME (PT) IN PPP BY COAGULATION ASSAY 14.8 Seconds Normal 12.3-14.8 [facility] Comment on above: Performed By: #### L [id number] ####[facility] ([employer])[address] [place] [address] CBC WITH AUTO DIFFERENTIALon 12-08-2023 Basophils (Bld) [#/Vol] 0.04 10*3/uL Normal 0.00-0.20 [facility] Comment on above: Performed By: #### L [id number] ####[facility] ([facility]AKER)[address] [place] [address] Basophils/100 WBC (Bld) 0.6 % Normal 0.0-1.0 [facility] Comment on above: Performed By: #### L [id number] ####[facility] ([facility])[address] [place] [address] Eosinophils (Bld) [#/Vol] 0.42 10*3/uL Normal 0.00-0.50 [facility] Comment on above: Performed By: #### L [id number] ####[facility] ([facility])[address] [place] [address] Eosinophils/100 WBC (Bld) 6.0 % Normal 0.0-6.0 [facility] Comment on above: Performed By: #### L [id number] ####[facility] ([facility])[address] [place] [address] Erythrocyte distribution width (RBC) [Ratio] 14.7 % Normal 11.5-15.0 [facility] Comment on above: Performed By: #### L [id number] ####[facility] ([facility])[address] [place] [address] ERYTHROCYTE MEAN CORPUSCULAR HEMOGLOBIN CONCENTRATION (G/DL) BY AUTOMATED 33.5 g/dL Normal 32.0-35.0 [facility] Comment on above: Performed By: #### L [id number] ####[facility] ([facility])[address] [place] [address] Hematocrit (Bld) [Volume fraction] 41.2 % Normal 39.0-55.0 [facility] Comment on above: Performed By: #### L [id number] ####[facility] ([facility])[address] [place] [address] Hemoglobin (Bld) [Mass/Vol] 13.8 g/dL Normal 13.0-17.0 [facility] Comment on above: Performed By: #### L [id number] ####[facility] ([facility])[address] [place] [address] Immature granulocytes (Bld) [#/Vol] 0.02 10*3/uL Normal 0.00-0.20 [facility] Comment on above: Performed By: #### L [id number] ####[facility] ([facility])[address] [place] [address] Immature granulocytes/100 WBC (Bld) 0.3 % Normal 0.0-1.0 [facility] Comment on above: Performed By: #### L [id number] ####[facility] ([facility])[address] [place] [address] Lymphocytes (Bld) [#/Vol] 2.22 10*3/uL Normal 1.20-4.00 [facility] Comment on above: Performed By: #### L [id number] ####[facility] ([facility])[address] [place] [address] Lymphocytes/100 WBC (Bld) 31.9 % Normal 20.0-45.0 [facility] Comment on above: Performed By: #### L [id number] ####[facility] ([facility])[address] [place] [address] MCH (RBC) [Entitic mass] 28.8 pg Normal 27.0-33.0 [facility] Comment on above: Performed By: #### L [id number] ####[facility] ([facility])[address] [place] [address] MCV (RBC) [Entitic vol] 86.0 fL Normal 82.0-98.0 U [facility] Comment on above: Performed By: #### L [id number] ####[facility] ([facility])[address] [place] [address] Monocytes (Bld) [#/Vol] 0.60 10*3/uL Normal 0.10-1.00 [facility] Comment on above: Performed By: #### L [id number] ####[facility] ([facility])[address] [place] [address] Monocytes/100 WBC (Bld) 8.6 % Normal 5.0-12.0 [facility] Comment on above: Performed By: #### L [id number] ####[facility] ([facility])[address] [place] [address] Neutrophils (Bld) [#/Vol] 3.65 10*3/uL Normal 1.60-7.60 [facility] Comment on above: Performed By: #### L [id number] ####[facility] ([facility])[address] [address] Neutrophils/100 WBC (Bld) 52.6 % Normal 40.0-72.0 [facility] Comment on above: Performed By: #### L [id number] ####[facility] ([facility])[address] [place] [address] NRBC (PER 100 WBCS) BY AUTOMATED COUNT 0.0 % Normal 0 [facility] Comment on above: Performed By: #### L [id number] ####[facility] ([facility])[address] [place] [address] PLATELETS (10*3/UL) IN BLOOD AUTOMATED COUNT 233 10*3/uL Normal 150-400 [facility] Comment on above: Performed By: #### L [id number] ####[facility] ([facility])[address] [place] [address] RBC (Bld) [#/Vol] 4.79 10*6/uL Normal 4.20-5.70 [facility] Comment on above: Performed By: #### L [id number] ####[facility] ([facility])[address] [place] [address] WBC (Bld) [#/Vol] 6.95 10*3/uL Normal 4.00-10.60 [facility] Comment on above: Performed By: #### L [id number] ####[facility] ([facility]ER)[address] [place] [address] COMPREHENSIVE METABOLIC PANE Soniod 12-08-2023 Albumin [Mass/Vol] 4.0 g/dL Normal 3.5-5.7 [facility] Comment on above: Performed By: #### L [id number] ####[facility] ([facility])[address] [place] [address] ALP [Catalytic activity/Vol] 94 U/L Normal 34-104 [facility] Comment on above: Performed By: #### L [id number] ####[facility] ([facility])[address] [place] [address] ALT [Catalytic activity/Vol] 13 U/L Normal 7-52 [facility] Comment on above: Performed By: #### L [id number] ####[facility] ([facility])[address] [place] [address] Anion gap [Moles/Vol] 12 mmol/L Normal 7-20 [facility] Comment on above: Performed By: #### L [id number] ####[facility] ([facility])[address] [place] [address] AST [Catalytic activity/Vol] 14 U/L Normal 13-39 [facility] Comment on above: Performed By: #### L [id number] ####[facility] ([facility])[address] [place] [address] Bilirubin [Mass/Vol] 0.5 mg/dL Normal 0.3-1.0 [facility] Comment on above: Performed By: #### L [id number] ####[facility] ([facility])[address] [place] [address] Calcium [Mass/Vol] 10.1 mg/dL Normal 8.6-10.3 [facility] Comment on above: Performed By: #### L [id number] ####[facility] ([facility])[address] [place] [address] Chloride [Moles/Vol] 102 mmol/L Normal 98-107 [facility] Comment on above: Performed By: #### L [id number] ####[facility] ([facility])[address] [place] [address] CO2 [Moles/Vol] 24 mmol/L Normal 21-31 [facility] Comment on above: Performed By: #### L [id number] ####[facility] ([facility])[address] [place] [address] Creatinine [Mass/Vol] 1.86 mg/dL High 0.70-1.30 [facility] Comment on above: Performed By: #### L [id number] ####[facility] ([facility])[address] [place] [address] GLOMERULAR FILTRATION RATE ML/MIN/1.73 SQ M.PREDICTED 39.4 mL/min/1.73m*2 Low >60.0 [facility] Comment on above: Result Comment: The [facility]???s estimated glomerular filtration rate (eGFR) will [...] of individuals. Performed By: #### L [id number] ####[facility] ([facility])[address] [place] [address] Glucose [Mass/Vol] 195 mg/dL High 70-100 [facility] Comment on above: Performed By: #### L [id number] ####[facility] ([facility])[address] [place] [address] Potassium [Moles/Vol] 5.1 mmol/L Normal 3.5-5.1 [facility] Comment on above: Performed By: #### L [id number] ####[facility] ([facility])[address] [place] [address] Protein [Mass/Vol] 7.4 g/dL Normal 6.0-8.3 [facility] Comment on above: Performed By: #### L [id number] ####[facility] ([facility])[address] [place] [address] Sodium [Moles/Vol] 133 mmol/L Low 136-145 [facility] Comment on above: Performed By: #### L [id number] ####[facility] ([facility])[address] [place] [address] Urea nitrogen [Mass/Vol] 28 mg/dL High 7-25 [facility] Comment on above: Performed By: #### L [id number] ####[facility] ([facility])[address] [place] [address] UREA NITROGEN/CREATININE (MASS RATIO) IN SER/PLAS 15.1 Normal [facility] Comment on above: Performed By: #### L [id number] ####[facility] ([facility])[address] [place] [address] Follow-Upon 12-08-2023 Follow-Up Normal [facility] Labon 12-08-2023 Lab Normal [facility] T3, FREEon 12-08-2023 TRIIODOTHYRONINE (T3) FREE (PG/ML) IN SER/PLAS 2.8 pg/mL Normal 2.5-3.9 [facility] Comment on above: Performed By: #### L [id number] ####[facility] ([facility])[address] [place] [address] T4, FREEon 12-08-2023 THYROXINE (T4) FREE (NG/DL) IN SER/PLAS 0.85 ng/dL Normal 0.71-1.85 [facility] Comment on above: Performed By: #### L [id number] ####[facility] ([facility])[address] [place] [address] TSHon 12-08-2023 THYROTROPIN (MIU/L) IN SER/PLAS BY DETECTION LIMIT <= 0.05 MIU/L 1.09 mIU/L Normal 0.34-5.60 [facility] Comment on above: Performed By: #### L [id number] ####[facility] ([facility])[address] [place] [address] Orders Onlyon 12-06-2023 Orders Only Normal [facility] Orders Onlyon 12-02-2023 Orders Only [facility] 37on 11-23-2023 37 Recommend pembrolizu mab (Keytruda) infusion every 3 weeks to begin with and can be switched to every 6 weeks if needed Keytruda can be given through peripheral IV or chemo port. Decision will be made by patient for either/ Return to clinic in 4 weeks [facility] 36on 11-11-2023 36 Pt informed [facility] 30on 11-10-2023 30 [facility] BASIC METABOLIC PANELon 10-19 Anion gap [Moles/Vol] 11 mmol/L Normal 7-20 [facility] Comment on above: Performed By: #### L [id number] ####[facility] ([facility])[address] [place] [address] Calcium [Mass/Vol] 9.6 mg/dL Normal 8.6-10.3 [facility] Comment on above: Performed By: #### L [id number] ####[facility] ([facility])[address] [place] [address] Chloride [Moles/Vol] 104 mmol/L Normal 98-107 [facility] Comment on above: Performed By: #### L [id number] ####[facility] ([facility])[address] [place] [address] CO2 [Moles/Vol] 22 mmol/L Normal 21-31 [facility] Comment on above: Performed By: #### L [id number] ####[facility] ([facility])[address] [place] [address] Creatinine [Mass/Vol] 1.28 mg/dL Normal 0.70-1.30 [facility] Comment on above: Performed By: #### L [id number] ####[facility] ([facility])[address] [place] [address] GLOMERULAR FILTRATION RATE ML/MIN/1.73 SQ M.PREDICTED 61.7 mL/min/1.73m*2 Normal >60.0 [facility] Comment on above: Result Comment: The [facility]???s estimated glomerular filtration rate (eGFR) will [...] of individuals. Performed By: #### L [id number] ####[facility] ([facility])[address] [place] [address] Glucose [Mass/Vol] 182 mg/dL High 70-100 [facility] Comment on above: Performed By: #### L [id number] ####[facility] ([facility])[address] [place] [address] Potassium [Moles/Vol] 4.7 mmol/L Normal 3.5-5.1 [facility] Comment on above: Result Comment: M-CH EMISTRY SPECIMEN MODERATELY HEMOLYZED RESULTS MAY NOT BE ACCURATE Performed By: #### L [id number] ####[facility] ([facility])[address] [place] [address] Sodium [Moles/Vol] 132 mmol/L Low 136-145 [facility] Comment on above: Performed By: #### L [id number] ####[facility] ([facility])[address] [place] [address] Urea nitrogen [Mass/Vol] 16 mg/dL Normal 7-25 [facility] Comment on above: Performed By: #### L [id number] ####[facility] ([facility])[address] [place] [address] UREA NITROGEN/CREATININE (MASS RATIO) IN SER/PLAS 12.5 Normal [facility] Comment on above: Performed By: #### L [id number] ####[facility] ([facility])[address] [place] [address] CBCon 11-10-2023 Erythrocyte distribution width (RBC) [Ratio] 14.2 % Normal 11.5-15.0 [facility] Comment on above: Performed By: #### L [id number] ####[facility] ([facility])[address] [place] [address] ERYTHROCYTE MEAN CORPUSCULAR HEMOGLOBIN CONCENTRATION (G/DL) BY AUTOMATED 33.4 g/dL Normal 32.0-35.0 [facility] Comment on above: Performed By: #### L [id number] ####[facility] ([facility])[address] [place] [address] Hematocrit (Bld) [Volume fraction] 43.7 % Normal 39.0-55.0 [facility] Comment on above: Performed By: #### L [id number] ####[facility] ([facility])[address] [place] [address] Hemoglobin (Bld) [Mass/Vol] 14.6 g/dL Normal 13.0-17.0 [facility] Comment on above: Performed By: #### L [id number] ####[facility] ([facility])[address] [place] [address] MCH (RBC) [Entitic mass] 29.0 pg Normal 27.0-33.0 [facility] Comment on above: Performed By: #### L [id number] ####[facility] ([facility])[address] [place] [address] MCV (RBC) [Entitic vol] 86.9 fL Normal 82.0-98.0 U [facility] Comment on above: Performed By: #### L [id number] ####[facility] ([facility])[address] [place] [address] PLATELETS (10*3/UL) IN BLOOD AUTOMATED COUNT 248 10*3/uL Normal 150-400 [facility] Comment on above: Performed By: #### L [id number] ####[facility] ([facility])[address] [place] [address] RBC (Bld) [#/Vol] 5.03 10*6/uL Normal 4.20-5.70 [facility] Comment on above: Performed By: #### L [id number] ####[facility] ([facility])[address] [place] [address] WBC (Bld) [#/Vol] 10.05 10*3/uL Normal 4.00-10.60 [facility] Comment on above: Performed By: #### L [id number] ####[facility] ([facility])[address] [place] [address] DSon 11-10-2023 DS Normal [facility] MAGNESIUMon 11-10-2023 Magnesium [Mass/Vol] 1.6 mg/dL Low 1.9-2.7 [facility] Comment on above: Performed By: #### L [id number] ####[facility] ([facility])[address] [place] [address] NURSNOTEon 11-10-2023 NURSNOTE Discharge paperwork reviewed with patient. All questions answered. Patient and verbalized understanding. Normal [facility] PHOSPHORUSon 11-10-2023 Magnesium [Mass/Vol] 3.6 mg/dL Normal 2.5-5.0 [facility] Comment on above: Performed By: #### L [id number] ####[facility] ([facility])[address] [place] [address] POCT GLUCOSE METER UNSOLICIT ED RESULTSon 11-10-2023 Glucose [Mass/Vol] 135 mg/dL High 70-105 [facility] Comment on above: Order Comment: Waive d Testing in the ED is performed under the ED CLIA certificate #[id number]. Result Comment: pgom ez Performed By: #### L [id number] ####[facility] (BE[facility]ER)[address] [place] [address] Glucose [Mass/Vol] 220 mg/dL High 70-105 [facility] Comment on above: Order Comment: Waive d Testing in the ED is performed under the ED CLIA certificate #[id number]. Result Comment: pgom ez Performed By: #### L [id number] ####[facility] ([facility]ER)[address] [place] [address] Glucose [Mass/Vol] 233 mg/dL High 70-105 [facility] Comment on above: Order Comment: Waive d Testing in the ED is performed under the ED CLIA certificate #[id number]. Result Comment: pgom ez Performed By: #### L [id number] ####[facility] ([facility]ER)[address] [place] [address] [id number] 11-09-2023 [id number] Normal [facility] ANESon 11-09-2023 ANES Normal [facility] ANES Normal [facility] ARTERIAL BLOOD GAS WITH CO-O XIMETRYon 11-09-2023 Base excess Calc (Bld) [Moles/Vol] -3.7000 mmol/L Low -2.0-3.0 [facility] Comment on above: Performed By: #### L [id number] ####[facility] [id number] [place] [address] [facility] CARBOXYHEMOGLOBIN/HEMOG LOBIN TOTAL % IN BLOOD 5.0 % High 0.0-3.0 [facility] Comment on above: Performed By: #### L [id number] ####[facility] [id number] [place] [address] [place] CO2 (Bld) [Partial pressure] 45 mm[Hg] Normal 35-48 [facility] Comment on above: Performed By: #### L [id number] ####[facility] [id number] [place] [address] [place] DEOXYGENATED HEMOGLOBIN IN BLOOD 0.0 % Low 1-5 [facility] Comment on above: Performed By: #### L [id number] ####[facility] [id number] [place] [address] [facility] HCO3 (Bld) [Moles/Vol] 22.7 mmol/L Normal 21.0-28.0 U [facility] Comment on above: Performed By: #### L [id number] ####[facility] [id number] [place], [place] [address] Hemoglobin (Bld) [Mass/Vol] 13.1 g/dL Normal 11.7-17.4 [facility] Comment on above: Performed By: #### L [id number] ####[facility] [id number] [place] [address] [facility] METHEMOGLOBIN/100 IN BLOOD 0.7 % Normal 0.0-1.5 [facility] Comment on above: Performed By: #### L [id number] ####[facility] [id number] [place], [place] [address] Oxygen (Bld) [Partial pressure] 195 mm[Hg] High 83-100 [facility] Comment on above: Performed By: #### L [id number] ####[facility] [id number] [place] [address] [facility] OXYGEN SATURATION (%) IN ARTERIAL BLOOD 100.0 % High 94.0-98.0 [facility] Comment on above: Performed By: #### L [id number] ####[facility] [id number] [place] [address] [facility] OXYGENATED HEMOGLOBIN IN BLOOD 94.3 % Normal 90.0-95.0 [facility] Comment on above: Performed By: #### L [id number] ####[facility] [id number] [place] [address] [facility] pH (Bld) 7.31 [pH] Low 7.35-7.45 [facility] Comment on above: Performed By: #### L [id number] ####[facility] [id number] [place] [address] [facility] SOURCE OF OXYGEN Vent Normal [facility] Comment on above: Performed By: #### L [id number] ####[facility] [id number] [place] [address] [facility] BASIC METABOLIC PANELon - Anion gap [Moles/Vol] 12 mmol/L Normal 7-20 [facility] Comment on above: Performed By: #### L [id number] ####[facility] ([facility])[address] [place] [address] Calcium [Mass/Vol] 9.2 mg/dL Normal 8.6-10.3 [facility] Comment on above: Performed By: #### L [id number] ####[facility] ([facility])[address] [place] [address] Chloride [Moles/Vol] 104 mmol/L Normal 98-107 [facility] Comment on above: Performed By: #### L [id number] ####[facility] ([facility]AKER)[address] [place] [address] CO2 [Moles/Vol] 23 mmol/L Normal 21-31 [facility] Comment on above: Performed By: #### L [id number] ####[facility] ([facility])[address] [place] [address] Creatinine [Mass/Vol] 1.07 mg/dL Normal 0.70-1.30 [facility] Comment on above: Performed By: #### L [id number] ####[facility] ([facility])[address] [place] [address] GLOMERULAR FILTRATION RATE ML/MIN/1.73 SQ M.PREDICTED 76.5 mL/min/1.73m*2 Normal >60.0 [facility] Comment on above: Result Comment: [facility]???s estimated glomerular filtration rate (eGFR) will [...] of individuals. Performed By: #### L [id number] ####[facility] ([facility])[address] [place] [address] Glucose [Mass/Vol] 271 mg/dL High 70-100 [facility] Comment on above: Performed By: #### L [id number] ####[facility] ([facility])[address] [place] [address] Potassium [Moles/Vol] 3.9 mmol/L Normal 3.5-5.1 [facility] Comment on above: Performed By: #### L [id number] ####[facility] ([facility])[address] [place] [address] Sodium [Moles/Vol] 135 mmol/L Low 136-145 [facility] Comment on above: Performed By: #### L [id number] ####[facility] ([facility])[address] [employer] [place] [address] Urea nitrogen [Mass/Vol] 19 mg/dL Normal 7-25 [facility] Comment on above: Performed By: #### L [id number] ####[facility] ([facility])[address] [place] [address] UREA NITROGEN/CREATININE (MASS RATIO) IN SER/PLAS 17.8 Normal [facility] Comment on above: Performed By: #### L [id number] ####[facility] ([facility])[address] [employer] [place] [address] CALCIUM, IONIZEDon CALCIUM IONIZED (MMOL/L) IN BLOOD 1.28 mmol/L Normal 1.15-1.33 [facility] Comment on above: Performed By: #### C ALCIUM, IONIZED ####[facility] [id number] [place] [address] [place] CBCon 11-09-2023 Erythrocyte distribution width (RBC) [Ratio] 14.1 % Normal 11.5-15.0 [facility] Comment on above: Performed By: #### L [id number] ####[facility] ([facility])[address] [place] [address] ERYTHROCYTE MEAN CORPUSCULAR HEMOGLOBIN CONCENTRATION (G/DL) BY AUTOMATED 33.2 g/dL Normal 32.0-35.0 [facility] Comment on above: Performed By: #### L [id number] ####[facility] ([facility])[address] [place] [address] Hematocrit (Bld) [Volume fraction] 41.6 % Normal 39.0-55.0 [facility] Comment on above: Performed By: #### L [id number] ####[facility] ([facility])[address] [place] [address] Hemoglobin (Bld) [Mass/Vol] 13.8 g/dL Normal 13.0-17.0 [facility] Comment on above: Performed By: #### L [id number] ####[facility] ([facility])[address] [place] [address] MCH (RBC) [Entitic mass] 29.2 pg Normal 27.0-33.0 [facility] Comment on above: Performed By: #### L [id number] ####[facility] ([facility])[address] [place] [address] MCV (RBC) [Entitic vol] 88.1 fL Normal 82.0-98.0 U [facility] Comment on above: Performed By: #### L [id number] ####[facility] ([facility])[address] [place] [address] PLATELETS (10*3/UL) IN BLOOD AUTOMATED COUNT 252 10*3/uL Normal 150-400 [facility] Comment on above: Performed By: #### L [id number] ####[facility] ([facility])[address] [place] [address] RBC (Bld) [#/Vol] 4.72 10*6/uL Normal 4.20-5.70 [facility] Comment on above: Performed By: #### L [id number] ####[facility] ([facility])[address] [place] [address] WBC (Bld) [#/Vol] 8.72 10*3/uL Normal 4.00-10.60 [facility] Comment on above: Performed By: #### L [id number] ####[facility] ([facility])[address] [place] [address] HEMOGLOBIN A1Con 11-09-2023 Glucose [Mass/Vol] 203 mg/dL Normal [facility] Comment on above: Performed By: #### L [id number] ####[facility] ([facility])[address] [place] [address] HbA1c (Bld) [Mass fraction] 8.7 % High 4.0-6.0 [facility] Comment on above: Performed By: #### L [id number] ####[facility] ([facility])[address] [place] [address] HISTOLOGY - TISSUE EXAMon LAB AP CASE REPORT Normal [facility] Comment on above: Order Comment: Pre-o p diagnosis:Renal mass [N28.89] Result Comment: Surg ical Pathology Case: [id number] Provider: Walt Bettencourt MD Collected: 11/09/2023 1127Ordering Location: [facility] Operating Room Received: 11/09/2023 1138Pathologist: Darinel Florez MDIntraop: TIA Merazpecimen: Kidney, LEFT NEPHRECTOMY Performed By: #### L [id number] ####[facility] ([facility])[address] [place] [address] LAB AP CLINICAL INFORMATION Normal [facility] Comment on above: Order Comment: Pre-o p diagnosis:Renal mass [N28.89] Result Comment: Post -Op [id number] - Renal mass [ICD-10-CM] Performed By: #### L [id number] ####[facility] ([facility])[address] [place] [address] LAB AP GROSS DESCRIPTION A. Kidney. Normal [facility] Comment on above: Order Comment: Pre-o [...] lesions are identified. Digital photographs are taken. St[employer] Selector sections are submitted as follows:A1: Renal vein margin, en faceA2: Renal artery margin and ureter margin, en faceA3-A5: Tumor with renal sinus fatA6-A7: Tumor involving renal veinA8-A9: Tumor to closest renal capsule with attached perirenal fat and closest Gerota's vvfgmvI61: Tumor to uninvolved sqgrgjmahcJ39: Uninvolved parenchyma, lower poleA12: Adrenal chottU25: 1 possible lymph node, intactElmary Sweet, [employer] Mireya Calderon [employer] Performed By: #### L [id number] ####[facility] ([facility])[address] [place] [address] LAB AP INTRAOPERATIVE CONSULTATION A. Kidney. Normal [facility] Comment on above: Order Comment: Pre-o p diagnosis:Renal mass [N28.89] Result Comment: Resu lted 11:39 AM 11/09/23Jasen, left, radical nephrectomy: - Renal vein margin (staple line) is grossly uninvolved by tumor thrombusIntraoperative Consultation by: Mindy Lilly MD Performed By: #### L [id number] ####[facility] ([facility])[address] [place] [address] LAB AP MICROSCOPIC DESCRIPTION Microscopic examination performed. [facility] Comment on above: Order Comment: Pre-o p diagnosis:Renal mass [N28.89] Performed By: #### L [id number] ####[facility] ([facility])[address] [place] [address] LAB AP REPORT FINAL DIAGNOSIS NARRATIVE [facility] Comment on above: Order Comment: Pre-o p diagnosis:Renal mass [N28.89] Result Comment: Jarad dewey, left, radical nephrectomy: - Clear-cell renal cell carcinoma, grade 2, WHO. - Size in greatest dimension, 7.3 cm. - Carcinoma extends into the renal vein. - Lymphovascular invasion of vascular channels within the renal sinus identified. - All margins free of carcinoma. - Adrenal gland free of tumor.See cancer protocol. Performed By: #### L [id number] ####[facility] ([facility])[address] [place] [address] LAB AP SYNOPTIC CHECKLIST [facility] Comment on above: Order Comment: Pre-o p diagnosis:Renal mass [N28.89] Result Comment: JARAD EY: NephrectomyKIDNEY: NEPHRECTOMY - All Whnioymrp4ac Edition - Protocol posted: 04/16/2021PECIMEN Procedure: Radical [...] and tubular atrophy Performed By: #### L [id number] ####[facility] ([facility])[address] [place] [address] HPon 11-09-2023 HP [facility] MAGNESIUMon 11-09-2023 Magnesium [Mass/Vol] 1.4 mg/dL Low 1.9-2.7 [facility] Comment on above: Performed By: #### L [id number] ####[facility] ([facility])[address] [place] [address] OPNOTEon 11-09-2023 OPNOTE Normal [facility] POCT GLUCOSE METER UNSOLICIT ED RESULTSon 11-09-2023 Glucose [Mass/Vol] 147 mg/dL High 70-105 [facility] Comment on above: Order Comment: Waive d Testing in the ED is performed under the ED CLIA certificate #[id number]. Result Comment: jros [email or web address] Performed By: #### L [id number] ####[facility] ([facility])[address] [place] [address] Glucose [Mass/Vol] 165 mg/dL High 70-105 [facility] Comment on above: Order Comment: Waive d Testing in the ED is performed under the ED CLIA certificate #[id number]. Result Comment: dkat al Performed By: #### L [id number] ####[facility] ([employer])[address] [place] [address] Glucose [Mass/Vol] 265 mg/dL High 70-105 [facility] Comment on above: Order Comment: Waive d Testing in the ED is performed under the ED CLIA certificate #[id number]. Result Comment: rtat e Performed By: #### L [id number] ####[facility] ([facility])[address] [place] [address] Glucose [Mass/Vol] 195 mg/dL High 70-105 [facility] Comment on above: Order Comment: Waive d Testing in the ED is performed under the ED CLIA certificate #[id number]. Result Comment: ltol les Performed By: #### L [id number] ####[facility] ([facility])[address] [place] [address] POTASSIUM, WHOLE BLOODon Potassium [Moles/Vol] 4.1 mmol/L Normal 3.5-5.1 [facility] Comment on above: Performed By: #### P OTASSIUM, WHOLE BLOOD ####[facility] [id number] [employer] [place] [address] [place] SODIUM, WHOLE BLOODon 2023 SODIUM, WHOLE BLOOD 134 Low 136-145 [facility] Comment on above: Performed By: #### S ODIUM, WHOLE BLOOD ####[facility] [id number] [place] [address] [place] TYPE AND SCREENon 11-09-2023 AB SCREEN Negative Normal [facility] Comment on above: Performed By: #### L [id number] ####[facility], ABO group Nom (Bld) A Normal [facility] Comment on above: Performed By: #### L [id number] ####[facility], RH TYPE IN BLOOD Positive Normal [facility] Comment on above: Performed By: #### L [id number] ####[facility], [id number] 11-03-2023 [id number] Normal [facility] Orders Onlyon 11-02-2023 Orders Only Normal [facility] MICROALBUMIN, RAND URon - mALB 26.0 mg/L Normal <=30.0 [facility] Comment on above: Performed By: #### P T, PTT #### [facility] [address] [address] [address] Mani Carpio CBC AUTO DIFFon 11-18-2022 BASO # 0.1 103/ul Normal 0.0-0.1 [facility] Comment on above: Performed By: #### P T, PTT #### [facility] [address] [address] [address] Mani Carpio Basophils/100 WBC (Bld) 0.4 % Normal 0.2-2.0 [facility] Comment on above: Performed By: #### P T, PTT #### [facility] [address] [address] [address] Mani Carpio EO # 0.1 103/ul Normal 0.0-0.7 [facility] Comment on above: Performed By: #### P T, PTT #### [facility] [address] [address] [address] Mani Carpio Eosinophils/100 WBC (Bld) 0.8 % Critically low 0.9-7.0 [facility] Comment on above: Performed By: #### P T, PTT #### [facility] [address] [place] [address] Dr. Mani Carpio Erythrocyte distribution width (RBC) [Ratio] 16.2 % Critically high 11.0-15.0 [facility] Comment on above: Performed By: #### P T, PTT #### [facility] [address] [place] [address] Dr. Mani Carpio Hematocrit (Bld) [Volume fraction] 41.3 % Critically low 42.0-54.0 [facility] Comment on above: Performed By: #### P T, PTT #### [facility] [address] [place] [address] Dr. Mani Carpio Hemoglobin (Bld) [Mass/Vol] 13.0 g/dL Critically low 14.0-18.0 [facility] Comment on above: Performed By: #### P T, PTT #### [facility] [address] [place] [address] Dr. Mani Carpio IG # 0.05 10e3/ul Critically high 0.00-0.03 [facility] Comment on above: Performed By: #### P T, PTT #### [facility] [address] [place] [address] Dr. Mani Carpio IG % 0.4 % Normal 0.0-0.5 [facility] Comment on above: Performed By: #### P T, PTT #### [facility] [address] [place] [address] Dr. Mani Carpio LYMPH # 2.0 103/ul Normal 1.2-3.8 [facility] Comment on above: Performed By: #### P T, PTT #### [facility] [address] [place] [address] Dr. Mani Carpio Lymphocytes/100 WBC (Bld) 18.1 % Critically low 20.5-60.0 [facility] Comment on above: Performed By: #### P T, PTT #### [facility] [address] [place] [address] Dr. Mani Carpio MANUAL DIFF REQ NO Normal [facility] Comment on above: Performed By: #### P T, PTT #### [facility] [address] [place] [address] Dr. Mani Carpio MCH (RBC) [Entitic mass] 29.7 pg Normal 25.9-34.0 [facility] Comment on above: Performed By: #### P T, PTT #### [facility] [address] [place] [address] Dr. Mani Carpio MCHC (RBC) [Mass/Vol] 31.5 g/dL Normal 29.9-35.2 [facility] Comment on above: Performed By: #### P T, PTT #### [facility] [address] [place] [address] Dr. Mani Carpio MCV (RBC) [Entitic vol] 94.3 fL Critically high 80.0-94 .0 [facility] Comment on above: Performed By: #### P T, PTT #### [facility] [address] [place] [address] Dr. Mani Carpio MONO # 0.7 103/ul Normal 0.3-0.8 [facility] Comment on above: Performed By: #### P T, PTT #### [facility] [address] [place] [address] Dr. Mani Carpio Monocytes/100 WBC (Bld) 5.9 % Normal 1.7-12.0 [facility] Comment on above: Performed By: #### P T, PTT #### [facility] [address] [place] [address] Dr. Mani Carpio NEUT # 8.3 103/ul Critically high 1.4-6.5 [facility] Comment on above: Performed By: #### P T, PTT #### [facility] [address] [place] [address] Dr. Mani Carpio Neutrophils/100 WBC (Bld) 74.4 % Normal 43.0-75.0 [facility] Comment on above: Performed By: #### P T, PTT #### [facility] [address] [place] [address] Dr. Mani Carpio Platelet mean volume (Bld) [Entitic vol] 10.0 fL Normal 9.5-13.5 [facility] Comment on above: Performed By: #### P T, PTT #### [facility] [address] [place] [address] Dr. Mani Carpio PLT 281 103/ul Normal 150-450 [facility] Comment on above: Performed By: #### P T, PTT #### [facility] [address] [place] [address] Dr. Mani Carpio RBC 4.38 106/ul Critically low 4.70-6.10 [facility] Comment on above: Performed By: #### P T, PTT #### [facility] [address] [place] [address] Dr. Mani Carpio WBC 11.2 103/ul Critically high 4.0-11.0 [facility] Comment on above: Performed By: #### P T, PTT #### [facility] [address] [place] [address] Dr. Mani Carpio GLYCOHEMOGLOBIN A1Con 2022 ADA RECOMMENDATION SEE BELOW Normal [facility] Comment on above: Result Comment: ADA RECOMMENDED LIMIT 4.0 - 6.0 ADA THERAPEUTIC TARGET < 7.0 ACTION SUGGESTED > 7.0 Performed By: #### A 1C #### [facility] [address] [place] [address] Dr. Mani Carpio Glucose [Mass/Vol] 146 mg/dL Normal [facility] Comment on above: Performed By: #### A 1C #### [facility] [address] [place] [address] Dr. Mani Carpio HbA1c (Bld) [Mass fraction] 6.7 % Critically high 4.5-6.2 [facility] Comment on above: Performed By: #### A 1C #### [facility] [address] [place] [address] Dr. Mani Carpio LIPID PROFILEon 11-18-2022 CHOL-HDL RATIO NORM SEE BELOW Normal [facility] Comment on above: Result Comment: 3.3 - 4.4 LOW RISK 4.4 - 7.1 AVERAGE RISK 7.1 - 11.0 MODERATE RISK >11.0 HIGH RISK Performed By: #### P T, PTT #### [facility] [address] [address] [address] Mani Carpio Cholesterol [Mass/Vol] 109 mg/dL Normal <=200 Th [facility] Comment on above: Performed By: #### P T, PTT #### [facility] [address] [address] [address] Mani Carpio Cholesterol in HDL [Mass/Vol] 28 mg/dL Critically low 40-60 [facility] Comment on above: Performed By: #### P T, PTT #### [facility] [address] [address] [address] Mani Carpio Cholesterol in LDL [Mass/Vol] 41.2 mg/dL Normal [facility] Comment on above: Performed By: #### P T, PTT #### [facility] [address] [place] [address] Dr. Mani Carpio Cholesterol.total/Dania sterol in HDL [Mass ratio] 3.9 {ratio} Normal [facility] Comment on above: Performed By: #### P T, PTT #### [facility] [address] [place] [address] Dr. Mani Carpio HDL NORMAL > or = 60 mg/dl - LO W CARDIOVASCULAR RISK <40 mg/dl - HIGH CARDIOVASCULAR RISK Normal [facility] Comment on above: Performed By: #### P T, PTT #### [facility] [address] [address] [address] Mani Carpio LDL CALC NORMAL SEE BELOW Normal [facility] Comment on above: Result Comment: <100 mg/dl OPTIMAL 100 - 129 mg/dl NEAR OR ABOVE OPTIMAL 130 - 159 mg/dl BORDERLINE HIGH 160 - 189 mg/dl HIGH >190 mg/dl VERY HIGH Performed By: #### P T, PTT #### [facility] [address] [place] [address] Dr. Mani Carpio Triglyceride [Mass/Vol] 199 mg/dL Critically high <=150 [facility] Comment on above: Performed By: #### P T, PTT #### [facility] [address] [place] [address] Dr. Mani Carpio VLDL CALC 39.8 mg/dL Normal [facility] Comment on above: Performed By: #### P T, PTT #### [facility] [address] [place] [address] Dr. Mani Carpio LIVER PROFILEon 11-18-2022 Albumin [Mass/Vol] 3.6 g/dL Normal 3.4-5.0 [facility] Comment on above: Performed By: #### P T, PTT #### [facility] [address] [place] [address] Dr. Mani Carpio Albumin/Globulin [Mass ratio] 0.9 {ratio} Normal [facility] Comment on above: Performed By: #### P T, PTT #### [facility] [address] [place] [address] Dr. Mani Carpio ALP [Catalytic activity/Vol] 76 U/L Normal 46-116 [facility] Comment on above: Performed By: #### P T, PTT #### [facility] [address] [place] [address] Dr. Mani Carpio ALT [Catalytic activity/Vol] 26 U/L Normal 16-63 [facility] Comment on above: Performed By: #### P T, PTT #### [facility] [address] [place] [address] Dr. Mani Carpio AST [Catalytic activity/Vol] 17 U/L Normal 15-37 [facility] Comment on above: Performed By: #### P T, PTT #### [facility] [address] [place] [address] Dr. Mani Carpio BILI, CONJUGATED 0.2 mg/dL Normal 0.0-0.2 [facility] Comment on above: Performed By: #### P T, PTT #### [facility] [address] [place] [address] Dr. Mani Carpio Bilirubin [Mass/Vol] 0.7 mg/dL Normal 0.2-1.0 [facility] Comment on above: Performed By: #### P T, PTT #### [facility] [address] [address] [address] Mani Carpio Globulin (S) [Mass/Vol] 4.2 g/dL Normal [facility] Comment on above: Performed By: #### P T, PTT #### [facility] [address] [place] [address] Dr. Mani Carpio Protein [Mass/Vol] 7.8 g/dL Normal 6.4-8.2 [facility] Comment on above: Performed By: #### P T, PTT #### [facility] [address] [place] [address] Dr. Mani Carpio PROF CHEM 8 (BAS METB)on Anion gap [Moles/Vol] 12.0 mmol/L Normal Th [facility] Comment on above: Performed By: #### P T, PTT #### [facility] [address] [place] [address] Dr. Mani Carpio Calcium [Mass/Vol] 9.5 mg/dL Normal 8.5-10.1 [facility] Comment on above: Performed By: #### P T, PTT #### [facility] [address] [place] [address] Dr. Mani Carpio Chloride [Moles/Vol] 100 mmol/L Normal 98-107 [facility] Comment on above: Performed By: #### P T, PTT #### [facility] [address] [place] [address] Dr. Mani Carpio CO2 [Moles/Vol] 28.9 mmol/L Normal 21.0-32.0 [facility] Comment on above: Performed By: #### P T, PTT #### [facility] [address] [place] [address] Dr. Mani Carpio Creatinine [Mass/Vol] 1.01 mg/dL Normal 0.70-1.30 [facility] Comment on above: Performed By: #### P T, PTT #### [facility] [address] [place] [address] Dr. Mnai Carpio EGFR-AF TUNISIAN >60 Normal >=60 [facility] Comment on above: Performed By: #### P T, PTT #### [facility] [address] [place] [address] Dr. Mani Carpio EGFR-NON AF TUNISIAN >60 Normal >=60 [facility] Comment on above: Performed By: #### P T, PTT #### [facility] [address] [place] [address] Dr. Mani Carpio Glucose [Mass/Vol] 221 mg/dL Critically high 74-106 [facility] Comment on above: Performed By: #### P T, PTT #### [facility] [address] [place] [address] Dr. Mani Carpio Potassium [Moles/Vol] 3.9 mmol/L Normal 3.5-5.1 [facility] Comment on above: Performed By: #### P T, PTT #### [facility] [address] [place] [address] Dr. Mani Carpio Sodium [Moles/Vol] 137 mmol/L Normal 136-145 [facility] Comment on above: Performed By: #### P T, PTT #### [facility] [address] [place] [address] Dr. Mani Carpio Urea nitrogen [Mass/Vol] 14.0 mg/dL Normal 7.0-18.0 [facility] Comment on above: Performed By: #### P T, PTT #### [facility] [address] [place] [address] Dr. Mani Carpio Urea nitrogen/Creatinine [Mass ratio] 13.9 mg/mg Normal [facility] Comment on above: Performed By: #### P T, PTT #### [facility] [address] [place] [address] Dr. Mani Carpio ACETONE SERUMon 09-02-2022 ACETONE Negative Normal NEGATIVE [facility] Comment on above: Performed By: #### P T, PTT #### [facility] [address] [place] [address] Dr. Mani Carpio BNPon 09-02-2022 Natriuretic peptide B (Bld) [Mass/Vol] 466.0 pg/mL Normal <=900.0 [facility] Comment on above: Performed By: #### L ACT #### [facility] [address] [place] [address] Dr. Mani Carpio CBC W MANUAL DIFFon 09-02-20 22 ATYPICAL LYMPH # Normal [facility] Comment on above: Performed By: #### C JUAN R #### [facility] [address] [place] [address] Dr. Mani Carpio ATYPICAL LYMPH % Normal [facility] Comment on above: Performed By: #### C JUAN R #### [facility] [facility] [address] [place] [address] Dr. Mani Carpio BAND # Normal 0.0-0.3 [facility] Comment on above: Performed By: #### C JUAN R #### [facility] [address] [place] [address] Dr. Mani Carpio BAND % Normal 0-5 [facility] Comment on above: Performed By: #### C JUAN R #### [facility] [address] [place] [address] Dr. Mani Carpio BASOM # 0.23 103/ul Critically high 0.00-0.10 [facility] Comment on above: Performed By: #### C JUAN R #### [facility] [address] [place] [address] Dr. Mani Carpio BASOM % 1.0 % Normal 0.2-2.0 [facility] Comment on above: Performed By: #### C JUAN R #### [facility] [address] [place] [address] Dr. Mani Carpio BLAST # Normal [facility] Comment on above: Performed By: #### C JUAN R #### [facility] [address] [place] [address] Dr. Mani Carpio BLAST % Normal [facility] Comment on above: Performed By: #### C JUAN R #### [facility] [address] [place] [address] Dr. Mani Carpio CORRECTED WBC Normal 4.0-11.0 [facility] Comment on above: Performed By: #### C JUAN R #### [facility] [address] [place] [address] Dr. Mani Carpio EOS # 0.00 103/ul Normal 0.00-0.70 [facility] Comment on above: Performed By: #### C JUAN R #### [facility] [address] [place] [address] Dr. Mani Carpio EOS% 0.0 % Critically low 0.9-7.0 [facility] Comment on above: Performed By: #### C JUAN R #### [facility] [address] [place] [address] Dr. Mani Carpio HCT 43.3 % Normal 42.0-54.0 [facility] Comment on above: Performed By: #### C JUAN R #### [facility] [address] [place] [address] Dr. Mani Carpio HGB 15.1 g/dl Normal 14.0-18.0 [facility] Comment on above: Performed By: #### C JUAN R #### [facility] [address] [place] [address] Dr. Mani Carpio LYMPHM # 2.49 103/ul Normal 1.20-3.80 [facility] Comment on above: Performed By: #### C JUAN R #### [facility] [address] [place] [address] Dr. Mani Carpio LYMPHM% 11.0 % Critically low 20.5-60.0 [facility] Comment on above: Performed By: #### Patrick PETE #### [facility] [address] [place] [address] Dr. Mani Carpio MCH 30.8 pg Normal 25.9-34.0 [facility] Comment on above: Performed By: #### C JUAN R #### [facility] [address] [place] [address] Dr. Mani Carpio MCHC 34.9 g/dl Normal 29.9-35.2 [facility] Comment on above: Performed By: #### C JUAN R #### [facility] [address] [place] [address] Dr. Mani Carpio MCV 88.2 fL Normal 80.0-94.0 [facility] Comment on above: Performed By: #### C JUAN R #### [facility] [address] [address] [address] Mani Carpio METAMYELOCYTE # Normal [facility] Comment on above: Performed By: #### C JUAN R #### [facility] [address] [place] [address] Dr. Mani Carpio METAMYELOCYTE % Normal [facility] Comment on above: Performed By: #### C JUAN R #### [facility] [address] [place] [address] Dr. Mani Carpio MONOM# 2.26 103/ul Critically high 0.30-0.80 [facility] Comment on above: Performed By: #### C JUAN R #### [facility] [address] [place] [address] Dr. Mani Carpio MONOM% 10.0 % Normal 1.7-12.0 [facility] Comment on above: Performed By: #### C JUAN R #### [facility] [address] [place] [address] Dr. Mani Carpio MPV 10.1 fL Normal 9.5-13.5 [facility] Comment on above: Performed By: #### Patrick PETE #### [facility] [address] [place] [address] Dr. Mani Carpio MYELOCYTE # Normal [facility] Comment on above: Performed By: #### Patrick PETE #### [facility] [address] [place] [address] Dr. Mani Carpio MYELOCYTE % Normal [facility] Comment on above: Performed By: #### C JUAN R #### [facility] [address] [place] [address] Dr. Mani Carpio NRBC Normal [facility] Comment on above: Performed By: #### C JUAN R #### [facility] [address] [place] [address] Dr. Mani Carpio PLT 311 103/ul Normal 150-450 [facility] Comment on above: Performed By: #### C JUAN R #### [facility] [address] [address] [address] Mani Carpio RBC 4.91 106/ul Normal 4.70-6.10 [facility] Comment on above: Performed By: #### Patrick PEET #### [facility] [address] [address] [address] Mani Carpio RDW 14.2 % Normal 11.0-15.0 [facility] Comment on above: Performed By: #### C JUAN R #### [facility] [address] [address] [address] Mani Carpio SEG # 17.63 103/ul Critically high 1.40-6.50 [facility] Comment on above: Performed By: #### C JUAN R #### [facility] [address] [address] [address] Mani Carpio SEG % 78.0 % Critically high 43.0-75.0 [facility] Comment on above: Performed By: #### Patrick PETE #### [facility] [address] [address] [address] Mani Carpio WBC 22.6 103/ul Critically high 4.0-11.0 [facility] Comment on above: Performed By: #### Patrick PETE #### [facility] [address] [place] [address] ABD/PELV W CONon 09-02-[address] ABD/PELV W CON EXAMINATION: CT ABD/ [...] by: STEPHIE RODRIGUEZ Date: 2022-09-02 15:36 Normal [facility] CT STROKE HEAD WOon 09-02-20 22 [...] by: JULISSA HACKETT Date: 2022-09-02 14:20 Normal [facility] CULTURE BLOODon 09-02-2022 Microscopic examination of blood, culture Culture Observations: NO GROWTH AT 5 DAYS. Normal [facility] Comment on above: Performed By: #### L ACT #### [facility] [address] [place], [place] [address] Dr. Mani Carpio Microscopic examination of blood, culture Culture Observations: NO GROWTH AT 5 DAYS. Normal [facility] Comment on above: Performed By: #### L ACT #### [facility] [address] [place], [place] [address] Dr. Mani Carpio Covid-19 PCR ([facility])on 08-18 SARS-CoV-2 (COVID-19) RNA PLACIDO+probe Ql (Unsp spec) Not detected Normal NOT DETECTED [facility] Comment on above: Result Comment: When [...] for this test is supported by the [place] of Health and Human Service's declaration that [...] used). Performed By: #### L ACT #### [facility] [address] [place], [place] [address] Dr. Mani Carpio ER URINE PROFILEon 2 Bilirubin Ql (U) Negative Normal NEGATIVE [facility] Comment on above: Performed By: #### U MICRO, ERUR #### [facility] [address] [place], [place] [address] Dr. Mani Carpio Clarity (U) CLEAR Normal CLEAR [facility] Comment on above: Performed By: #### U MICRO, ERUR #### [facility] [address] [address] [address] Mani Carpio Color (U) LT. YELLOW Normal YELLOW [facility] Comment on above: Performed By: #### U MICRO, ERUR #### [facility] [address] [address] [address] Mani Carpio ERUAHD A micrscopic examina tion will be performed if indicated. Normal [facility] Comment on above: Performed By: #### U MICRO, ERUR #### [facility] [address] [address] [address] Mani Carpio Glucose Ql (U) 500 mg/dl Abnormal NEGATIVE [facility] Comment on above: Performed By: #### U MICRO, ERUR #### [facility] [address] [place] [address] Dr. Mani Carpio Hemoglobin Ql (U) SMALL Abnormal NEGATIVE [facility] Comment on above: Performed By: #### U MICRO, ERUR #### [facility] [address] [address] [address] Mani Carpio Ketones Ql (U) Negative Normal NEGATIVE [facility] Comment on above: Performed By: #### U MICRO, ERUR #### [facility] [address] [place] [address] Dr. Mani Carpio LEUKOCYTES Negative Normal NEGATIVE [facility] Comment on above: Performed By: #### U MICRO, ERUR #### [facility] [address] [address] [address] Mani Carpio Nitrite Ql (U) Negative Normal NEGATIVE [facility] Comment on above: Performed By: #### U MICRO, ERUR #### [facility] [address] [address] [address] Mani Carpio pH (U) 7.0 [pH] Normal 5-9 [facility] Comment on above: Performed By: #### U MICRO, ERUR #### [facility] [address] [address] [address] Mani Carpio Protein (U) [Mass/Vol] 100 mg/dL Abnormal NEGAT SONYA/ TRACE [facility] Comment on above: Performed By: #### U MICRO, ERUR #### [facility] [address] [place] [address] Dr. Mani Carpio SPEC GRAVITY 1.015 Normal 1.005-<=1. 025 [facility] Comment on above: Performed By: #### U MICRO, ERUR #### [facility] [address] [place] [address] Dr. Mani Carpio UR MICRO IND INDICATED Normal [facility] Comment on above: Performed By: #### U MICRO, ERUR #### [facility] [address] [place] [address] Dr. Mani Carpio Urobilinogen Qn (U) 0.2 {Javon'U}/dL Normal 0.2 - 1. 0 [facility] Comment on above: Performed By: #### U MICRO, ERUR #### [facility] [address] [place] [address] Dr. Mani Carpio LACTATE/LACTIC ACIDon 2021 Lactate [Moles/Vol] 3.1 mmol/L Critically high 0.4-1.9 [facility] Comment on above: Performed By: #### L ACT #### [facility] [address] [place] [address] Dr. Mani Carpio Lactate [Moles/Vol] 4.0 mmol/L Critically high 0.4-1.9 [facility] Comment on above: Performed By: #### L ACT #### [facility] [address] [place] [address] Dr. Mani Carpio LIPASEon 09-02-2022 Lipase [Catalytic activity/Vol] 60.0 U/L Critically low 73.0-393.0 [facility] Comment on above: Performed By: #### L ACT #### [facility] [address] [place] [address] Dr. Mani Carpio PH VENOUS BLOODon 09-02-2022 PCO2 VENOUS 32.5 mmHg Critically low 40.0-52.0 [facility] Comment on above: Performed By: #### P HVEN #### [facility] [address] [place] [address] Dr. Mani Carpio pH VENOUS 7.454 Critically high 7.330-7.43 0 [facility] Comment on above: Performed By: #### P HVEN #### [facility] [address] [address] [address] Mani Carpio PROF 14(COMP METB)on 022 Albumin [Mass/Vol] 3.8 g/dL Normal 3.4-5.0 [facility] Comment on above: Performed By: #### L ACT #### [facility] [address] [place] [address] Dr. Mani Carpio Albumin/Globulin [Mass ratio] 0.8 {ratio} Normal [facility] Comment on above: Performed By: #### L ACT #### [facility] [address] [place] [address] Dr. Mani Carpio ALP [Catalytic activity/Vol] 83 U/L Normal 46-116 [facility] Comment on above: Performed By: #### L ACT #### [facility] [address] [place] [address] Dr. Mani Carpio ALT [Catalytic activity/Vol] 23 U/L Normal 16-63 [facility] Comment on above: Performed By: #### L ACT #### [facility] [address] [place] [address] Dr. Mani Carpio Anion gap [Moles/Vol] 13.9 mmol/L Normal [facility] Comment on above: Performed By: #### L ACT #### [facility] [address] [place] [address] Dr. Mani Carpio AST [Catalytic activity/Vol] 14 U/L Critically low 15-37 [facility] Comment on above: Performed By: #### L ACT #### [facility] [address] [place] [address] Dr. Mani Carpio Bilirubin [Mass/Vol] 1.1 mg/dL Critically high 0.2-1.0 [facility] Comment on above: Performed By: #### L ACT #### [facility] [address] [address] [address] Mani Carpio Calcium [Mass/Vol] 10.0 mg/dL Normal 8.5-10.1 [facility] Comment on above: Performed By: #### L ACT #### [facility] [address] [place] [address] Dr. Mani Carpio Chloride [Moles/Vol] 96 mmol/L Critically low 98-107 [facility] Comment on above: Performed By: #### L ACT #### [facility] [address] [place] [address] Dr. Mani Carpio CO2 [Moles/Vol] 24.8 mmol/L Normal 21.0-32.0 [facility] Comment on above: Performed By: #### L ACT #### [facility] [address] [place] [address] Dr. Mani Carpio Creatinine [Mass/Vol] 1.25 mg/dL Normal 0.70-1.30 [facility] Comment on above: Performed By: #### L ACT #### [facility] [address] [place] [address] Dr. Mani Carpio EGFR-AF TUNISIAN >60 Normal >=60 [facility] Comment on above: Performed By: #### L ACT #### [facility] [address] [place] [address] Dr. Mani Carpio EGFR-NON AF TUNISIAN 58 mL/min/1.73m2 Critically low >=60 [facility] Comment on above: Performed By: #### L ACT #### [facility] [address] [place] [address] Dr. Mani Carpio Globulin (S) [Mass/Vol] 4.6 g/dL Normal [facility] Comment on above: Performed By: #### L ACT #### [facility] [address] [place] [address] Dr. Mani Carpio Glucose [Mass/Vol] 204 mg/dL Critically high 74-106 [facility] Comment on above: Performed By: #### L ACT #### [facility] [address] [place] [address] Dr. Mani Carpio Potassium [Moles/Vol] 3.7 mmol/L Normal 3.5-5.1 [facility] Comment on above: Performed By: #### L ACT #### [facility] [address] [address] [address] Mani Carpio Protein [Mass/Vol] 8.4 g/dL Critically high 6.4-8.2 [facility] Comment on above: Performed By: #### L ACT #### [facility] [address] [address] [address] Mani Carpio Sodium [Moles/Vol] 131 mmol/L Critically low 136-145 [facility] Comment on above: Performed By: #### L ACT #### [facility] [address] [place] [address] Dr. Mani Carpio Urea nitrogen [Mass/Vol] 17.0 mg/dL Normal 7.0-18.0 [facility] Comment on above: Performed By: #### L ACT #### [facility] [address] [place] [address] Dr. Mani Carpio Urea nitrogen/Creatinine [Mass ratio] 13.6 mg/mg Normal [facility] Comment on above: Performed By: #### L ACT #### [facility] [address] [place] [address] Dr. Mani Carpio PROTIMEon 09-02-2022 INR Coag (PPP) [Relative time] 1.07 {INR} Normal [facility] Comment on above: Performed By: #### P T, PTT #### [facility] [address] [place] [address] Dr. Mani Carpio INR GUIDELINES SEE BELOW Normal [facility] Comment on above: Result Comment: SETH RED INR: 2.0 - 3.0 CONDITIONS NOT LISTED BELOW 2.5 - 3.5 FOR PROSTHETIC HEART VALVE REPLACEMENT 2.5 - 3.5 RECURRENT THROMBOSIS Performed By: #### P T, PTT #### [facility] [address] [place] [address] Dr. Mani Carpio PT Coag (PPP) [Time] 11.5 s Normal 9.0-11.6 [facility] Comment on above: Performed By: #### P T, PTT #### [facility] [address] [place] [address] Dr. Mani Carpio PTTon 09-02-2022 aPTT Coag (Bld) [Time] 29.3 s Normal 22.3-36.2 [facility] Comment on above: Performed By: #### P T, PTT #### [facility] [address] [place] [address] Dr. Mani Carpio TROPONIN, HIGH SENSITIVITYon 09-02-2022 HSTROP 13.4 pg/mL Normal 4.0-76.1 [facility] Comment on above: Result Comment: CUT- OFF POINTS HAVE BEEN ESTABLISHED BASED ON THE FOURTH UNIVERSAL DEFINITIONS OF MYOCARDIAL INFARCTION. THE UPPER REFERENCE LIMIT (URL) OF TROPONIN, DEFINED THE 99TH PERCENTILE OF cTnI DISTRIBUTION IN A REFERENCE POPULATION, HAS BEEN CONFIRMED THE DECISION THRESHOLD FOR PR DIAGNOSIS. Performed By: #### L ACT #### [facility] [address] [place] [address] Dr. Mani Carpio TSHon 09-02-2022 TSH 0.555 uIU/mL Normal 0.358-3.74 0 [facility] Comment on above: Performed By: #### L ACT #### [facility] [address] [place] [address] Dr. Mani Carpio URINE MICROSCOPIC ONLYon BACTERIA TRACE Abnormal NONE SEEN [facility] Comment on above: Performed By: #### U MICRO, ERUR #### [facility] [address] [place] [address] Dr. Mani Carpio Bacteria identified Cx Nom (U) NOT INDICATED Normal [facility] Comment on above: Performed By: #### U MICRO, ERUR #### [facility] [address] [place] [address] Dr. Mani Carpio CAST NONE SEEN Normal NONE SEEN [facility] Comment on above: Performed By: #### U MICRO, ERUR #### [facility] [address] [place] [address] Dr. Mani Carpio Crystals LM Nom (Urine sed) NONE SEEN Normal NONE SEEN [facility] Comment on above: Performed By: #### U MICRO, ERUR #### [facility] [address] [address] [address] Mani Carpio Epithelial cells LM Ql (Urine sed) RARE Normal NONE SEEN /RARE [facility] Comment on above: Performed By: #### U MICRO, ERUR #### [facility] [address] [address] [address] Mani Carpio MUCOUS NONE SEEN Normal NONE SEEN [facility] Comment on above: Performed By: #### U MICRO, ERUR #### [facility] [address] [address] [address] Mani Carpio RBC 5-10 Abnormal 0-2 [facility] Comment on above: Performed By: #### U MICRO, ERUR #### [facility] [address] [address] [address] Mani Carpio WBC 0-2 Abnormal NONE SEEN [facility] Comment on above: Performed By: #### U MICRO, ERUR #### [facility] [address] [address] [address] Mani Carpio US SINGLE QUAD RT [...] by: ELBA SHIPMAN Date: 2022-09-02 17:25 Normal [facility] US MARQUIS DOP LEG BILon 022 [...] by: HARMONY BRIGGS Date: 2022-09-02 16:58 Normal [facility] XR CHEST 1 Von 09-02-2022 XR [...] by: SHAHIDA ANDERSON Date: 2022-09-02 14:24 Normal [facility] ECHOCARDIO M/2D COMPLETEon 1 10-21-2021 ECHOCARDIO M/2D COMPLETE Patient: YOEL VAN Exam Date: 08/21/2022 : 1955 Gender:M Ordering : [facility] Admission #: [id number] Family : Order #: [id number] CLICK HERE TO VIEW EXAM ECHOCARDIOGRAM REPORT [...] Guevara M.D. on 08/21/2022 at 18:08 Normal [facility] GLYCOHEMOGLOBIN A1Con 2021 ADA RECOMMENDATION SEE BELOW Normal [facility] Comment on above: Result Comment: ADA RECOMMENDED LIMIT 4.0 - 6.0 ADA THERAPEUTIC TARGET < 7.0 ACTION SUGGESTED > 7.0 Performed By: #### A 1C #### [facility] [address] [address] [address] Mani Carpio Glucose [Mass/Vol] 186 mg/dL Normal [facility] Comment on above: Performed By: #### A 1C #### [facility] [address] [address] [address] Mani Carpio HbA1c (Bld) [Mass fraction] 8.1 % Critically high 4.5-6.2 [facility] Comment on above: Performed By: #### A 1C #### [facility] [address] [place], [place] [address] Dr. Mani Carpio APTTon 05-03-2021 aPTT Coag (Bld) [Time] 20.8 s Normal 20.5-30.5 [facility] Comment on above: Result Comment: IV Heparin Therapy Range: 48.6-77.8 Performed By: #### S ED, CRP, STROKE #### [facility] [address] [place], [place] [id number] Back Grinder: Bowen Lemon MD APTTOrdered By: Ning martines on 05-03-2021 aPTT Coag (Bld) [Time] 20.8 s [facility] [employer] Work Phone: Comment on above: IV Heparin Therapy Range: 48.6-77.8 [facility] [employer] Phone: Basic Metab w/rfx MGon 05-03 (cont.) Normal [facility] Comment on above: Result Comment: Aver age GFR for 60-69 years old: 85 mL/min/1.73sq m Chronic Kidney Disease: <60 mL/min/1.73sq m Kidney failure: <15 mL/min/1.73sq m eGFR calculated using average adult body mass. Additional eGFR calculator available at: http://www.Nextly/multiple_crcl_2011.htm Performed By: #### S ED, CRP, STROKE #### [email or web address] [address] [place] [id number] Back Grinder: Bowen Lemon MD Anion gap [Moles/Vol] 12 mmol/L Normal 9-17 [facility] Comment on above: Performed By: #### S ED, CRP, STROKE #### [facility] [address] [place] [id number] Back Grinder: Bowen Lemon MD Calcium [Mass/Vol] 9.4 mg/dL Normal 8.6-10.4 [facility] Comment on above: Performed By: #### S ED, CRP, STROKE #### [facility] [address] [place] [address] Back Grinder: Bowen Lemon MD Chloride [Moles/Vol] 103 mmol/L Normal 98-107 [facility] Comment on above: Performed By: #### S ED, CRP, STROKE #### [facility] [address] [place] [address] Back Grinder: Bowen Lemon MD CO2 [Moles/Vol] 20 mmol/L Normal 20-31 [facility] Comment on above: Performed By: #### S ED, CRP, STROKE #### [facility] [address] [place] [phone] Back Grinder: Bowen Lemon MD Creatinine [Mass/Vol] 0.85 mg/dL Normal 0.70-1.20 [facility] Comment on above: Performed By: #### S ED, CRP, STROKE #### [facility] [address] [place] [address] Back Grinder: Bowen Lemon MD GFR, Amer >60 Normal >60 [facility] Comment on above: Performed By: #### S ED, CRP, STROKE #### [facility] [address] [place] [address] Back Grinder: Bowen Lemon MD GFR,non Amer >60 Normal >60 [facility] Comment on above: Performed By: #### S ED, CRP, STROKE #### [facility] [address] [place] [phone] Back Grinder: Bowen Lemon MD Glucose [Mass/Vol] 163 mg/dL High 70-99 [facility] Comment on above: Performed By: #### S ED, CRP, STROKE #### [facility] [address] [place] [address] Back Grinder: Bowen Lemon MD Potassium [Moles/Vol] 4.1 mmol/L Normal 3.7-5.3 [facility] Comment on above: Performed By: #### S ED, CRP, STROKE #### [facility] [address] [place] [address] Back Grinder: Bowen Lemon MD Sodium [Moles/Vol] 135 mmol/L Normal 135-144 [facility] Comment on above: Performed By: #### S ED, CRP, STROKE #### [facility] [address] [place] [address] Back Grinder: Bowen Lemon MD Urea nitrogen [Mass/Vol] 12 mg/dL Normal - [facility] Comment on above: Performed By: #### S ED, CRP, STROKE #### [facility] [address] [place] [address] Back Grinder: Bowen Lemon MD BUN/CRE Ratio NOT REPORTED Normal - [facility] Comment on above: Performed By: #### S ED, CRP, STROKE #### [facility] [address] [place] [address] Back Grinder: Bowen Lemon MD Staging: NOT REPORTED Normal [facility] Comment on above: Performed By: #### S ED, CRP, STROKE #### [facility] [address] [place] [address] Back Grinder: Bowen Lemon MD Basic Metabolic Panel w/ Ref darlene to MGOrdered By: Jarek Osborn on 05-03-2021 Anion gap [Moles/Vol] 12 mmol/L 9 - 17 mmol/L [employer] Phone: Calcium [Mass/Vol] 9.4 mg/dL 8.6 - 10. 4 mg/dL [employer] Phone: Chloride [Moles/Vol] 103 mmol/L 98 - 10 7 mmol/L [employer] Phone: CO2 [Moles/Vol] 20 mmol/L 20 - 31 mmol/L [employer] Phone: Creatinine [Mass/Vol] 0.85 mg/dL 0.70 - 1.20 mg/dL [employer] Phone: GFR >60 >60 mL/min [employer] Phone: GFR Non- >60 >60 mL/min [employer] Phone: GFR/1.73 sq M.predicted MDRD (S/P/Bld) [Vol rate/Area] [employer] Phone: Comment on above: Average GFR for 60-6 9 years old: 85 mL/min/1.73sq m Chronic Kidney Disease: <60 mL/min/1.73sq m Kidney failure: <15 mL/min/1.73sq m eGFR calculated using average adult body mass. Additional eGFR calculator available at: http://www.Nextly/multiple_crcl_2012.htm GFR/1.73 sq M.predicted MDRD (S/P/Bld) [Vol rate/Area] NOT REPORTED [employer] Phone: Glucose [Mass/Vol] 163 mg/dL High 70 - 99 mg/dL [employer] Phone: Interpretation and review of laboratory results Abnormal [employer] Phone: Potassium [Moles/Vol] 4.1 mmol/L 3.7 - 5.3 mmol/L [employer] Phone: Sodium [Moles/Vol] 135 mmol/L 135 - 144 mmol/L [employer] Phone: Urea nitrogen (BldV) [Mass/Vol] 12 mg/dL 8 - 23 mg/dL [employer] Phone: Urea nitrogen/Creatinine (Bld) [Mass ratio] NOT REPORTED [employer] Phone: CBCon 05-03-2021 Erythrocyte distribution width (RBC) [Ratio] 14.5 % High 11.8-14.4 [facility] Comment on above: Performed By: #### S ED, CRP, STROKE #### [facility] [place] [place] [address] Back Grinder: Bowen Lemon MD Hematocrit (Bld) [Volume fraction] 38.4 % Low 40.7-50.3 [facility] Comment on above: Performed By: #### S ED, CRP, STROKE #### [facility] [address] [place] [address] Back Grinder: Bowen Lemon MD Hemoglobin (Bld) [Mass/Vol] 12.6 g/dL Low 13.0-17.0 [facility] Comment on above: Performed By: #### S ED, CRP, STROKE #### [facility] [address] [place] [address] Back Grinder: Bowen Lemon MD MCH (RBC) [Entitic mass] 30.2 pg Normal 25.2-33.5 [facility] Comment on above: Performed By: #### S ED, CRP, STROKE #### [address] [address] Back Grinder: Bowen Lemon MD MCHC (RBC) [Mass/Vol] 32.8 g/dL Normal 28.4-34.8 [facility] Comment on above: Performed By: #### S ED, CRP, STROKE #### [address] [address] Back Grinder: Bowen Lemon MD MCV (RBC) [Entitic vol] 92.1 fL Normal 82.6-102.9 [facility] Comment on above: Performed By: #### S ED, CRP, STROKE #### [facility] [address] [place] [address] Back Grinder: Bowen Lemon MD NRBC Automated 0.0 per 100 WBC Normal 0.0 [facility] Comment on above: Performed By: #### S ED, CRP, STROKE #### [facility] [address] [place] [address] Back Grinder: Bowen Lemon MD Platelet mean volume (Bld) [Entitic vol] 10.8 fL Normal 8.1-13.5 [facility] Comment on above: Performed By: #### S ED, CRP, STROKE #### [facility] [address] [place] [address] Back Grinder: Bowen Lemon MD Platelets (Bld) [#/Vol] 225 10*3/uL Normal 138-453 [facility] Comment on above: Performed By: #### S ED, CRP, STROKE #### [facility] [address] [place] [address] Back Grinder: Bowen Lemon MD RBC (Bld) [#/Vol] 4.17 10*6/uL Low 4.21-5.77 [facility] Comment on above: Performed By: #### S ED, CRP, STROKE #### [facility] [address] [place] [address] Back Grinder: Bowen Lemon MD WBC (Bld) [#/Vol] 6.6 10*3/uL Normal 3.5-11.3 [facility] Comment on above: Performed By: #### S ED, CRP, STROKE #### [facility] [address] [place] [address] Back Grinder: Bowen Lemon MD CBCOrdered By: Gee benoit on 05-03-2021 Hematocrit (Bld) [Volume fraction] 38.4 % Low 40.7 - 50.3 % [employer] Phone: Hemoglobin.gastrointest inal spec 1 Ql (Stl) 12.6 g/dL Low 13.0 - 17.0 g/dL [employer] Phone: Interpretation and review of laboratory results Abnormal [employer] Phone: MCH (RBC) [Entitic mass] 30.2 pg 25.2 - 33.5 pg [employer] Phone: MCHC (RBC) [Mass/Vol] 32.8 g/dL 28.4 - 34.8 g/dL [employer] Phone: MCV (RBC) [Entitic vol] 92.1 fL 82.6 - 102.9 fL [employer] Phone: NRBC Automated 0.0 0.0 per 100 WBC [employer] Phone: Platelet distribution width (Bld) [Ratio] 14.5 % High 11.8 - 14.4 % [employer] Phone: Platelet mean volume (Bld) [Entitic vol] 10.8 fL 8.1 - 13.5 fL [employer] Phone: Platelets (Bld) [#/Vol] 225 10*3/uL [employer] Phone: RBC (Bld) [#/Vol] 4.17 10*6/uL Low 4.21 - 5.77 m/uL [employer] Phone: WBC (Bld) [#/Vol] 6.6 10*3/uL [employer] Phone: [employer] Phone: MAGNESIUMOrdered By: Gee Parnell on 05-03-2021 Magnesium [Mass/Vol] 1.7 mg/dL 1.6 - 2 .6 mg/dL [employer] Phone: Magnesiumon 05-03-2021 Magnesium [Mass/Vol] 1.7 mg/dL Normal 1.6-2.6 [facility] Comment on above: Performed By: #### S ED, CRP, STROKE #### [facility] [place] [place] [address] Back Grinder: Bowen Lemon MD No Panel InformationOrdered By: Jarek Osborn on 05-03-2021 [employer] Phone: POC Glucose FingerstickOrder ed By: Ning Wallace on 05-03-2021 Glucose [Mass/Vol] 163 mg/dL High 75 - 110 mg/dL [facility] Phone: Interpretation and review of laboratory results Abnormal [facility] Phone: [facility] Phone: APTTon 05-02-2021 aPTT Coag (Bld) [Time] 60.3 s High 20.5-30.5 [facility] Comment on above: Result Comment: IV Heparin Therapy Range: 48.6-77.8 Performed By: #### S ED, CRP, STROKE #### [facility] [place] [place] [address] Back Grinder: Bowen Lemon MD APTTOrdered By: Ning martines on 05-02-2021 aPTT Coag (Bld) [Time] 60.3 s High [facility] [employer] Phone: Comment on above: IV Heparin Therapy Range: 48.6-77.8 Interpretation and review of laboratory results Abnormal [facility] Phone: [facility] Phone: Activated clotting timeOrder ed By: Ning Wallace on 05-02-2021 Activated Clotting Time 227 High M [facility] [employer] Phone: Interpretation and review of laboratory results Abnormal [facility] Phone: [facility] [employer] Phone: Basic Metab w/rfx MGon 05-02 (cont.) Normal [facility] Comment on above: Result Comment: Aver age GFR for 60-69 years old: 85 mL/min/1.73sq m Chronic Kidney Disease: <60 mL/min/1.73sq m Kidney failure: <15 mL/min/1.73sq m eGFR calculated using average adult body mass. Additional eGFR calculator available at: http://www.[employer] cos[employer]/multiple_crcl_2012.htm Performed By: #### S ED, CRP, STROKE #### [facility] [address] [place] [address] Back Grinder: Bowen Lemon MD Anion gap [Moles/Vol] 14 mmol/L Normal 9-17 [facility] Comment on above: Performed By: #### S ED, CRP, STROKE #### [facility] [address] [place] [address] Back Grinder: Bowen Lemon MD Calcium [Mass/Vol] 9.4 mg/dL Normal 8.6-10.4 [facility] Comment on above: Performed By: #### S ED, CRP, STROKE #### [facility] [address] [place] [address] Back Grinder: Bowen Lemon MD Chloride [Moles/Vol] 106 mmol/L Normal 98-107 [facility] Comment on above: Performed By: #### S ED, CRP, STROKE #### [facility] [address] [place] [address] Back Grinder: Bowen Lemon MD CO2 [Moles/Vol] 19 mmol/L Low 20-31 [facility] Comment on above: Performed By: #### S ED, CRP, STROKE #### [facility] [address] [place] [address] Back Grinder: Bowen Lemon MD Creatinine [Mass/Vol] 0.87 mg/dL Normal 0.70-1.20 [facility] Comment on above: Performed By: #### S ED, CRP, STROKE #### [facility] [address] [place] [address] Back Grinder: Bowen Lemon MD GFR, Amer >60 Normal >60 [facility] Comment on above: Performed By: #### S ED, CRP, STROKE #### [facility] [address] [place] [address] Back Grinder: Bowen Lemon MD GFR,non Amer >60 Normal >60 [facility] Comment on above: Performed By: #### S ED, CRP, STROKE #### [facility] [address] [place] [address] Back Grinder: Bowen Lemon MD Glucose [Mass/Vol] 161 mg/dL High 70-99 [facility] Comment on above: Performed By: #### S ED, CRP, STROKE #### [facility] [address] [place] [address] Back Grinder: Bowen Lemon MD Potassium [Moles/Vol] 4.0 mmol/L Normal 3.7-5.3 [facility] Comment on above: Performed By: #### S ED, CRP, STROKE #### [facility] [address] [place] [address] Back Grinder: Bowen Lemon MD Sodium [Moles/Vol] 139 mmol/L Normal 135-144 [facility] Comment on above: Performed By: #### S ED, CRP, STROKE #### [facility] [address] [place] [address] Back Grinder: Bowen Lemon MD Urea nitrogen [Mass/Vol] 11 mg/dL Normal 8-23 [facility] Comment on above: Performed By: #### S ED, CRP, STROKE #### [facility] [address] [place] [address] Back Grinder: Bowen Lemon MD BUN/CRE Ratio NOT REPORTED Normal 9-20 [facility] Comment on above: Performed By: #### S ED, CRP, STROKE #### [facility] [address] [place] [address] Back Grinder: Bowen Lemon MD Staging: NOT REPORTED Normal [facility] Comment on above: Performed By: #### S ED, CRP, STROKE #### [employer] [facility] [place] [address] Back Grinder: Bowen Lemon MD Basic Metabolic Panel w/ Ref darlene to MGOrdered By: Jarek Osborn on 05-02-2021 Anion gap [Moles/Vol] 14 mmol/L 9 - 17 mmol/L [employer] Phone: Calcium [Mass/Vol] 9.4 mg/dL 8.6 - 10. 4 mg/dL [employer] Phone: Chloride [Moles/Vol] 106 mmol/L 98 - 10 7 mmol/L [employer] Phone: CO2 [Moles/Vol] 19 mmol/L Low 20 - 31 mmol/L [employer] Phone: Creatinine [Mass/Vol] 0.87 mg/dL 0.70 - 1.20 mg/dL [employer] Phone: GFR >60 >60 mL/min [employer] Phone: GFR Non- >60 >60 mL/min [employer] Phone: GFR/1.73 sq M.predicted MDRD (S/P/Bld) [Vol rate/Area] [employer] Phone: Comment on above: Average GFR for 60-6 9 years old: 85 mL/min/1.73sq m Chronic Kidney Disease: <60 mL/min/1.73sq m Kidney failure: <15 mL/min/1.73sq m eGFR calculated using average adult body mass. Additional eGFR calculator available at: http://www.[employer]/multiple_crcl_2012.htm GFR/1.73 sq M.predicted MDRD (S/P/Bld) [Vol rate/Area] NOT REPORTED [employer] Phone: Glucose [Mass/Vol] 161 mg/dL High 70 - 99 mg/dL [employer] Phone: Potassium [Moles/Vol] 4.0 mmol/L 3.7 - 5.3 mmol/L [employer] Phone: Sodium [Moles/Vol] 139 mmol/L 135 - 144 mmol/L [employer] Phone: Urea nitrogen (BldV) [Mass/Vol] 11 mg/dL 8 - 23 mg/dL [employer] Phone: Urea nitrogen/Creatinine (Bld) [Mass ratio] NOT REPORTED [employer] Phone: Catheterization and angiogra phy procedure details panelOrdered By: Ning Wallace on 05-02-2021 Cardiac Intervention al Report Demographics Patient REHAN Bryant Date of Study 05/02/2021 Name Date of 1955 Gender Male Age 65 year(s) Race Room [id number]^ALIA^NING Height: 72 inch, 182.88 cm Number Corporate [id number] Weight: 223 pounds, 101.2 kg ID # Patient [id number] BSA: 2.23 m^2 BMI: 30.24 Acct # kg/m^2 MR # [id number] Performing Nikolas Bojorquez Physician Referring # Physician Assisting Physician Additional Comments H&P reviewed and patient examined by performing physician prior to the procedure on 05/02/21 at No changes noted. If changes, see note below. ASA Classification / Mallampati : per Physician. ASA & Mallampati documented in [facility] by Physician. 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 243 mg. Contrast Material: - Isovue 73008 ml Fluoroscopy Time: Diagnostic: 8:54 minutes. Total: [...] assessed as CCS III according to the [place] clinical classification. Hemodynamics Condition: Baseline Room Air Estimated: 266.29Heart Rate: 76 bpm Pressure +-----+ + !Site !Pressure ! +-----+ + !AO !96/54 (66) (more content not included)... 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 243 mg. Contrast Material: - Isovue 31387 ml Fluoroscopy Time: Diagnostic: 8:54 minutes. Total: [...] assessed as CCS III according to the [place] clinical classification. Hemodynamics Condition: Baseline Room Air Estimated: 266.29Heart Rate: 76 bpm Pressure +-----+ + !Site !Pressure ! +-----+ + !AO !96/54 (66) ! +-----+ + Shunts Oxygen Values O2 [id number] [id number] [employer] Phone: [employer] Phone: Catheterization and angiogra phy procedure details panelOrdered By: Unknown Result on 05-02-2021 [employer] Phone: MAGNESIUMOrdered By: Gee Parnell on 05-02-2021 Magnesium [Mass/Vol] 1.5 mg/dL Low 1.6 - 2 .6 mg/dL [employer] Phone: Magnesiumon 05-02-2021 Magnesium [Mass/Vol] 1.5 mg/dL Low 1.6-2.6 [facility] Comment on above: Performed By: #### S ED, CRP, STROKE #### [facility] [address] [place], [place] [id number] Back Grinder: Bowen Lemon MD No Panel InformationOrdered By: Jarek Osborn on 05-02-2021 Interpretation and review of laboratory results Abnormal [employer] Phone: [employer] Phone: POC Glucose FingerstickOrder ed By: Ning Wallace on 05-02-2021 Glucose [Mass/Vol] 171 mg/dL High 75 - 110 mg/dL [employer] Phone: Interpretation and review of laboratory results Abnormal [employer] Phone: [employer] Phone: Glucose [Mass/Vol] 152 mg/dL High 75 - 110 mg/dL [employer] Phone: Interpretation and review of laboratory results Abnormal [employer] Phone: [employer] Phone: Glucose [Mass/Vol] 170 mg/dL High 75 - 110 mg/dL [employer] Phone: Interpretation and review of laboratory results Abnormal [employer] Phone: [employer] Phone: Glucose [Mass/Vol] 163 mg/dL High 75 - 110 mg/dL [employer] Phone: Interpretation and review of laboratory results Abnormal [employer] Phone: [employer] Phone: APTTon 05-01-2021 aPTT Coag (Bld) [Time] 56.9 s High 20.5-30.5 [facility] Comment on above: Result Comment: IV Heparin Therapy Range: 48.6-77.8 Performed By: #### S ED, CRP, STROKE #### [facility] [address] [place] [address] Back Grinder: Bowen Lemon MD APTTOrdered By: Gee kim on 05-01-2021 aPTT Coag (Bld) [Time] 56.9 s High [facility] [employer] Phone: Comment on above: IV Heparin Therapy Range: 48.6-77.8 Interpretation and review of laboratory results Abnormal [facility] [employer] Phone: [facility] Phone: Basic Metab w/rfx MGon 05-01 (cont.) Normal [facility] Comment on above: Result Comment: Aver age GFR for 60-69 years old: 85 mL/min/1.73sq m Chronic Kidney Disease: <60 mL/min/1.73sq m Kidney failure: <15 mL/min/1.73sq m eGFR calculated using average adult body mass. Additional eGFR calculator available at: http://www.[employer]/multiple_crcl_2012.htm Performed By: #### S ED, CRP, STROKE #### [facility] [address] [place] [address] Back Grinder: Bowen Lemon MD Anion gap [Moles/Vol] 14 mmol/L Normal 9-17 [facility] Comment on above: Performed By: #### S ED, CRP, STROKE #### [facility] [address] [place] [address] Back Grinder: Bowen Lemon MD Calcium [Mass/Vol] 9.6 mg/dL Normal 8.6-10.4 [facility] Comment on above: Performed By: #### S ED, CRP, STROKE #### [facility] [address] [place] [address] Back Grinder: Bowen Lemon MD Chloride [Moles/Vol] 105 mmol/L Normal 98-107 [facility] Comment on above: Performed By: #### S ED, CRP, STROKE #### [facility] [address] [place] [address] Back Grinder: Bowen Lemon MD CO2 [Moles/Vol] 20 mmol/L Normal 20-31 [facility] Comment on above: Performed By: #### S ED, CRP, STROKE #### [facility] [address] [place] [address] Back Grinder: Bowen Lemon MD Creatinine [Mass/Vol] 0.62 mg/dL Low 0.70-1.20 [facility] Comment on above: Performed By: #### S ED, CRP, STROKE #### [facility] [address] [place] [address] Back Grinder: Bowen Lemon MD GFR, Amer >60 Normal >60 [facility] Comment on above: Performed By: #### S ED, CRP, STROKE #### [facility] [address] [place] [address] Back Grinder: Bowen Lemon MD GFR,non Amer >60 Normal >60 [facility] Comment on above: Performed By: #### S ED, CRP, STROKE #### [facility] [address] [place] [address] Back Grinder: Bowen Lemon MD Glucose [Mass/Vol] 185 mg/dL High 70-99 [facility] Comment on above: Performed By: #### S ED, CRP, STROKE #### [facility] [address] [place] [address] Back Grinder: Bowen Lemon MD Potassium [Moles/Vol] 4.3 mmol/L Normal 3.7-5.3 [facility] Comment on above: Result Comment: SPEC IMEN SLIGHTLY HEMOLYZED, RESULTS MAY BE ADVERSELY AFFECTED. Performed By: #### S ED, CRP, STROKE #### [facility] [address] [place] [address] Back Grinder: Bowen Lemon MD Sodium [Moles/Vol] 139 mmol/L Normal 135-144 [facility] Comment on above: Performed By: #### S ED, CRP, STROKE #### [facility] [address] [place], [place] [id number] Back Grinder: Bowen Lemon MD Urea nitrogen [Mass/Vol] 14 mg/dL Normal 8- [facility] Comment on above: Performed By: #### S ED, CRP, STROKE #### [facility] [address] [place] [address] Back Grinder: Bowen Lemon MD BUN/CRE Ratio NOT REPORTED Normal - [facility] Comment on above: Performed By: #### S ED, CRP, STROKE #### [facility] [address] [place], [place] [id number] Back Grinder: Bowen Lemon MD Staging: NOT REPORTED Normal [facility] Comment on above: Performed By: #### S ED, CRP, STROKE #### [facility] [address] [place] [address] Back Grinder: Bowen Lemon MD Basic Metabolic Panel w/ Ref darlene to MGOrdered By: Jarek Osborn on 05-01-2021 Anion gap [Moles/Vol] 14 mmol/L 9 - 17 mmol/L [employer] Phone: Calcium [Mass/Vol] 9.6 mg/dL 8.6 - 10. 4 mg/dL [employer] Phone: Chloride [Moles/Vol] 105 mmol/L 98 - 10 7 mmol/L [employer] Phone: CO2 [Moles/Vol] 20 mmol/L 20 - 31 mmol/L [employer] Phone: Creatinine [Mass/Vol] 0.62 mg/dL Low 0.70 - 1.20 mg/dL [employer] Phone: GFR >60 >60 mL/min [employer] Phone: GFR Non- >60 >60 mL/min [employer] Phone: GFR/1.73 sq M.predicted MDRD (S/P/Bld) [Vol rate/Area] [employer] Phone: Comment on above: Average GFR for 60-6 9 years old: 85 mL/min/1.73sq m Chronic Kidney Disease: <60 mL/min/1.73sq m Kidney failure: <15 mL/min/1.73sq m eGFR calculated using average adult body mass. Additional eGFR calculator available at: http://www.[employer]/multiple_crcl_2012.htm GFR/1.73 sq M.predicted MDRD (S/P/Bld) [Vol rate/Area] NOT REPORTED [employer] Phone: Glucose [Mass/Vol] 185 mg/dL High 70 - 99 mg/dL [employer] Phone: Interpretation and review of laboratory results Abnormal [employer] Phone: Potassium [Moles/Vol] 4.3 mmol/L 3.7 - 5.3 mmol/L [employer] Phone: Comment on above: SPECIMEN SLIGHTLY HE MOLYZED, RESULTS MAY BE ADVERSELY AFFECTED. Sodium [Moles/Vol] 139 mmol/L 135 - 144 mmol/L [employer] Phone: Urea nitrogen (BldV) [Mass/Vol] 14 mg/dL 8 - 23 mg/dL [employer] Phone: Urea nitrogen/Creatinine (Bld) [Mass ratio] NOT REPORTED [employer] Phone: [employer] Phone: CBCon 05-01-2021 Erythrocyte distribution width (RBC) [Ratio] 14.3 % Normal 11.8-14.4 [facility] Comment on above: Performed By: #### S ED, CRP, STROKE #### [address] [address] Back Grinder: Bowen Lemon MD Hematocrit (Bld) [Volume fraction] 38.2 % Low 40.7-50.3 [facility] Comment on above: Performed By: #### S ED, CRP, STROKE #### [address] [address] Back Grinder: Bowen Lemon MD Hemoglobin (Bld) [Mass/Vol] 12.6 g/dL Low 13.0-17.0 [facility] Comment on above: Performed By: #### S ED, CRP, STROKE #### [address] [address] Back Grinder: Bowen Lemon MD MCH (RBC) [Entitic mass] 30.7 pg Normal 25.2-33.5 [facility] Comment on above: Performed By: #### S ED, CRP, STROKE #### [address] [address] Back Grinder: oBwen Lemon MD MCHC (RBC) [Mass/Vol] 33.0 g/dL Normal 28.4-34.8 [facility] Comment on above: Performed By: #### S ED, CRP, STROKE #### [address] [address] Back Grinder: Bowen Lemon MD MCV (RBC) [Entitic vol] 93.2 fL Normal 82.6-102.9 [facility] Comment on above: Performed By: #### S ED, CRP, STROKE #### [address] [address] Back Grinder: Bowen Lemon MD NRBC Automated 0.0 per 100 WBC Normal 0.0 [facility] Comment on above: Performed By: #### S ED, CRP, STROKE #### [address] [address] Back Grinder: Bowen Lemon MD Platelet mean volume (Bld) [Entitic vol] 10.9 fL Normal 8.1-13.5 [facility] Comment on above: Performed By: #### S ED, CRP, STROKE #### [facility] [address] [place] [address] Back Grinder: Bowen Lemon MD Platelets (Bld) [#/Vol] 250 10*3/uL Normal 138-453 [facility] Comment on above: Performed By: #### S ED, CRP, STROKE #### [facility] [place] [address] Back Grinder: Bowen Lemon MD RBC (Bld) [#/Vol] 4.10 10*6/uL Low 4.21-5.77 [facility] Comment on above: Performed By: #### S ED, CRP, STROKE #### [facility] [address] [place] [address] Back Grinder: Bowen Lemon MD WBC (Bld) [#/Vol] 7.3 10*3/uL Normal 3.5-11.3 [facility] Comment on above: Performed By: #### S ED, CRP, STROKE #### [facility] [address] [place] [phone] Back Grinder: Bowen Lemon MD CBCOrdered By: Gee benoit on 05-01-2021 Hematocrit (Bld) [Volume fraction] 38.2 % Low 40.7 - 50.3 % [employer] Phone: Hemoglobin.gastrointest inal spec 1 Ql (Stl) 12.6 g/dL Low 13.0 - 17.0 g/dL [employer] Phone: Interpretation and review of laboratory results Abnormal [employer] Phone: MCH (RBC) [Entitic mass] 30.7 pg 25.2 - 33.5 pg [employer] Phone: MCHC (RBC) [Mass/Vol] 33.0 g/dL 28.4 - 34.8 g/dL [employer] Phone: MCV (RBC) [Entitic vol] 93.2 fL 82.6 - 102.9 fL [employer] Phone: NRBC Automated 0.0 0.0 per 100 WBC [employer] Phone: Platelet distribution width (Bld) [Ratio] 14.3 % 11.8 - 14.4 % [employer] Phone: Platelet mean volume (Bld) [Entitic vol] 10.9 fL 8.1 - 13.5 fL [employer] Phone: Platelets (Bld) [#/Vol] 250 10*3/uL [employer] Phone: RBC (Bld) [#/Vol] 4.10 10*6/uL Low 4.21 - 5.77 m/uL [employer] Phone: WBC (Bld) [#/Vol] 7.3 10*3/uL [employer] Phone: [employer] Phone: Cult,Bloodon 05-01-2021 Cult,Blood Specimen Description .BLOOD Special Requests R ARM 1 ML Culture NO GROWTH 6 DAYS Report Status FINAL 05/01/2021 [facility] Comment on above: Performed By: #### S ED, CRP, STROKE #### [facility] [address] [place] [address] Back Grinder: Bowen Lemon MD Cult,Blood Specimen Description .BLOOD Special Requests L ARM 2 ML Culture NO GROWTH 6 DAYS Report Status FINAL 05/01/2021 [facility] Comment on above: Performed By: #### S ED, CRP, STROKE #### [facility] [address] [place] [address] Back Grinder: Bowen Lemon MD Culture, Blood 1Ordered By: Jarek Osborn on 05-01-2021 Special Requests R ARM 1 ML [employer] Phone: Special Requests L ARM 2 ML [employer] Phone: Specimen Description .BLOOD [employer] Phone: [employer] Phone: Laboratory - Microbiology an d Antimicrobial susceptibilityOrdered By: Jarek Osborn on 05-01-2021 Bacteria identified Cx Nom (Unsp spec) NO GROWTH 6 DAYS [employer] Phone: POC Glucose FingerstickOrder ed By: Ning Wallace on 05-01-2021 Glucose [Mass/Vol] 207 mg/dL High 75 - 110 mg/dL [employer] Phone: Interpretation and review of laboratory results Abnormal [employer] Phone: [employer] Phone: Glucose [Mass/Vol] 204 mg/dL High 75 - 110 mg/dL [employer] Phone: Interpretation and review of laboratory results Abnormal [employer] Phone: [employer] Phone: Glucose [Mass/Vol] 170 mg/dL High 75 - 110 mg/dL [employer] Phone: Interpretation and review of laboratory results Abnormal [employer] Phone: [employer] Phone: APTTon 04-30-2021 aPTT Coag (Bld) [Time] 55.9 s High 20.5-30.5 [facility] Comment on above: Result Comment: IV Heparin Therapy Range: 48.6-77.8 Performed By: Joshua### S ED, CRP, STROKE #### [facility] [address] [place], [place] [phone] Back Grinder: Bowen Lemon MD aPTT Coag (Bld) [Time] 71.1 s High 20.5-30.5 [facility] Comment on above: Result Comment: IV Heparin Therapy Range: 48.6-77.8 Performed By: #### S ED, CRP, STROKE #### [facility] [address] [place], [place] [id number] Back Grinder: Bowen Lemon MD aPTT Coag (Bld) [Time] 59.1 s High 20.5-30.5 [facility] Comment on above: Result Comment: IV Heparin Therapy Range: 48.6-77.8 Performed By: #### S ED, CRP, STROKE #### [facility] [address] [place] [address] [phone] Back Grinder: Bowen Lemon MD APTTOrdered By: Ning martines on 04-30-2021 aPTT Coag (Bld) [Time] 55.9 s High [facility] [employer] Phone: Comment on above: IV Heparin Therapy Range: 48.6-77.8 Interpretation and review of laboratory results Abnormal [facility] Phone: [facility] Phone: APTTOrdered By: Gee kim on 04-30-2021 aPTT Coag (Bld) [Time] 71.1 s High [facility] [employer] Phone: Comment on above: IV Heparin Therapy Range: 48.6-77.8 Interpretation and review of laboratory results Abnormal [facility] Phone: [facility] Phone: aPTT Coag (Bld) [Time] 59.1 s High [facility] [employer] Phone: Comment on above: IV Heparin Therapy Range: 48.6-77.8 Interpretation and review of laboratory results Abnormal [facility] [employer] Phone: [employer] Phone: Basic Metab w/rfx MGon 04-30 (cont.) Normal [facility] Comment on above: Result Comment: Aver age GFR for 60-69 years old: 85 mL/min/1.73sq m Chronic Kidney Disease: <60 mL/min/1.73sq m Kidney failure: <15 mL/min/1.73sq m eGFR calculated using average adult body mass. Additional eGFR calculator available at: http://www.Nextly/multiple_crcl_2011.htm Performed By: #### S ED CRP, STROKE #### [facility] [address] [place] [address] Back Grinder: Bowen Lemon MD Anion gap [Moles/Vol] 12 mmol/L Normal 9-17 [facility] Comment on above: Performed By: #### S ED, CRP, STROKE #### [facility] [address] [place] [address] Back Grinder: Bowen Lemon MD Calcium [Mass/Vol] 9.2 mg/dL Normal 8.6-10.4 [facility] Comment on above: Performed By: #### S ED, CRP, STROKE #### [facility] [address] [place] [address] Back Grinder: Bowen Lemon MD Chloride [Moles/Vol] 103 mmol/L Normal 98-107 [facility] Comment on above: Performed By: #### S ED, CRP, STROKE #### [facility] [address] [place] [address] Back Grinder: Bowen Lemon MD CO2 [Moles/Vol] 19 mmol/L Low 20-31 [facility] Comment on above: Performed By: #### S ED, CRP, STROKE #### [facility] [address] [place] [address] Back Grinder: Bowen Lemon MD Creatinine [Mass/Vol] 0.74 mg/dL Normal 0.70-1.20 [facility] Comment on above: Performed By: #### S ED, CRP, STROKE #### [facility] [address] [place] [address] Back Grinder: Bowen Lemon MD GFR, Amer >60 Normal >60 [facility] Comment on above: Performed By: #### S ED, CRP, STROKE #### [facility] [address] [place] [address] Back Grinder: Bowen Lemon MD GFR,non Amer >60 Normal >60 [facility] Comment on above: Performed By: #### S ED, CRP, STROKE #### [facility] [address] [place] [address] Back Grinder: Bowen Lemon MD Glucose [Mass/Vol] 180 mg/dL High 70-99 [facility] Comment on above: Performed By: #### S ED, CRP, STROKE #### [facility] [address] [place] [address] Back Grinder: Bowen Lemon MD Potassium [Moles/Vol] 4.0 mmol/L Normal 3.7-5.3 [facility] Comment on above: Performed By: #### S ED, CRP, STROKE #### [facility] [address] [place] [address] Back Grinder: Bowen Lemon MD Sodium [Moles/Vol] 134 mmol/L Low 135-144 [facility] Comment on above: Performed By: #### S ED, CRP, STROKE #### [facility] [address] [place] [address] Back Grinder: Bowen Lemon MD Urea nitrogen [Mass/Vol] 9 mg/dL Normal 8-23 [facility] Comment on above: Performed By: #### S ED, CRP, STROKE #### [facility] [address] [place], [place] [phone] Back Grinder: Bowen Lemon MD BUN/CRE Ratio NOT REPORTED Normal 9-20 [facility] Comment on above: Performed By: #### S ED, CRP, STROKE #### [facility] [address] [place], [place] [phone] Back Grinder: Bowen Lemon MD Staging: NOT REPORTED Normal [facility] Comment on above: Performed By: #### S ED, CRP, STROKE #### [facility] [address] [place], [place] [phone] Back Grinder: Bowen Lemon MD Basic Metabolic Panel w/ Ref darlene to MGOrdered By: Jarek Osborn on 04-30-2021 Anion gap [Moles/Vol] 12 mmol/L 9 - 17 mmol/L [employer] Phone: Calcium [Mass/Vol] 9.2 mg/dL 8.6 - 10. 4 mg/dL [employer] Phone: Chloride [Moles/Vol] 103 mmol/L 98 - 10 7 mmol/L [employer] Phone: CO2 [Moles/Vol] 19 mmol/L Low 20 - 31 mmol/L [employer] Phone: Creatinine [Mass/Vol] 0.74 mg/dL 0.70 - 1.20 mg/dL [employer] Phone: GFR >60 >60 mL/min [employer] Phone: GFR Non- >60 >60 mL/min [employer] Phone: GFR/1.73 sq M.predicted MDRD (S/P/Bld) [Vol rate/Area] [employer] Phone: Comment on above: Average GFR for 60-6 9 years old: 85 mL/min/1.73sq m Chronic Kidney Disease: <60 mL/min/1.73sq m Kidney failure: <15 mL/min/1.73sq m eGFR calculated using average adult body mass. Additional eGFR calculator available at: http://www.Nextly/multiple_crcl_2012.htm GFR/1.73 sq M.predicted MDRD (S/P/Bld) [Vol rate/Area] NOT REPORTED [employer] Phone: Glucose [Mass/Vol] 180 mg/dL High 70 - 99 mg/dL [employer] Phone: Interpretation and review of laboratory results Abnormal [employer] Phone: Potassium [Moles/Vol] 4.0 mmol/L 3.7 - 5.3 mmol/L [employer] Phone: Sodium [Moles/Vol] 134 mmol/L Low 135 - 144 mmol/L [employer] Phone: Urea nitrogen (BldV) [Mass/Vol] 9 mg/dL 8 - 23 mg/dL [employer] Phone: Urea nitrogen/Creatinine (Bld) [Mass ratio] NOT REPORTED [employer] Phone: [employer] Phone: POC Glucose FingerstickOrder ed By: Ning Wallace on 04-30-2021 Glucose [Mass/Vol] 242 mg/dL High 75 - 110 mg/dL [employer] Phone: Interpretation and review of laboratory results Abnormal [employer] Phone: [employer] Phone: Glucose [Mass/Vol] 220 mg/dL High 75 - 110 mg/dL [employer] Phone: Interpretation and review of laboratory results Abnormal [employer] Phone: [employer] Phone: Glucose [Mass/Vol] 189 mg/dL High 75 - 110 mg/dL [employer] Phone: Interpretation and review of laboratory results Abnormal [employer] Phone: [employer] Phone: Glucose [Mass/Vol] 226 mg/dL High 75 - 110 mg/dL [employer] Phone: Interpretation and review of laboratory results Abnormal [employer] Phone: [employer] Phone: APTTon 04-29-2021 aPTT Coag (Bld) [Time] 94.2 s Critically high 20.5-30. 5 [facility] Comment on above: Result Comment: IV Heparin Therapy Range: 48.6-77.8 Performed By: #### S ED, CRP, STROKE #### [facility] [address] [place] [address] [phone] Back Grinder: Bowen Lemon MD aPTT Coag (Bld) [Time] 46.3 s High 20.5-30.5 [facility] Comment on above: Result Comment: IV Heparin Therapy Range: 48.6-77.8 Performed By: #### S ED, CRP, STROKE #### [facility] [address] [place], [place] [phone] Back Grinder: Bowen Lemon MD aPTT Coag (Bld) [Time] 69.2 s High 20.5-30.5 [facility] Comment on above: Result Comment: IV Heparin Therapy Range: 48.6-77.8 Performed By: #### S ED, CRP, STROKE #### [facility] [address] [place] [address] [phone] Back Grinder: Bowen Lemon MD aPTT Coag (Bld) [Time] 69.1 s High 20.5-30.5 [facility] Comment on above: Result Comment: IV Heparin Therapy Range: 48.6-77.8 Performed By: #### S ED, CRP, STROKE #### [facility] [address] [place] [address] Back Grinder: Bowen Lemon MD aPTT Coag (Bld) [Time] 49.2 s High 20.5-30.5 [facility] Comment on above: Result Comment: IV Heparin Therapy Range: 48.6-77.8 Performed By: #### P TT ####[facility] [address] [place] [address] Lab Director: Bowen Lemon MD APTTOrdered By: Ning martines on 04-29-2021 aPTT Coag (Bld) [Time] 94.2 s Critically high [employer] Phone: Comment on above: IV Heparin Therapy Range: 48.6-77.8 Interpretation and review of laboratory results Abnormal [employer] Phone: [employer] Phone: aPTT Coag (Bld) [Time] 46.3 s High [facility] [employer] Phone: Comment on above: IV Heparin Therapy Range: 48.6-77.8 Interpretation and review of laboratory results Abnormal [employer] Phone: [employer] Phone: aPTT Coag (Bld) [Time] 69.2 s High Me y [employer] Phone: Comment on above: IV Heparin Therapy Range: 48.6-77.8 Interpretation and review of laboratory results Abnormal [employer] Phone: [employer] Phone: aPTT Coag (Bld) [Time] 69.1 s High Me [facility] [employer] Phone: Comment on above: IV Heparin Therapy Range: 48.6-77.8 Interpretation and review of laboratory results Abnormal [facility] [employer] Phone: [facility] [employer] Phone: Basic Metab w/rfx MGon 04-29 (cont.) Normal [facility] Comment on above: Result Comment: Aver age GFR for 60-69 years old: 85 mL/min/1.73sq m Chronic Kidney Disease: <60 mL/min/1.73sq m Kidney failure: <15 mL/min/1.73sq m eGFR calculated using average adult body mass. Additional eGFR calculator available at: http://www.Nextly/multiple_crcl_2012.htm Performed By: #### C RUSSELL, BMPX ####[address] [place] [address] Lab Director: Bowen Lemon MD Anion gap [Moles/Vol] 10 mmol/L Normal 9-17 [facility] Comment on above: Performed By: #### C RUSSELL BMPX ####[facility] [address] [place] [address] Lab Director: Bowen Lemon MD Calcium [Mass/Vol] 8.9 mg/dL Normal 8.6-10.4 [facility] Comment on above: Performed By: #### C BC, BMPX ####[facility] [address] [place] [address] Lab Director: Bowen Lemon MD Chloride [Moles/Vol] 106 mmol/L Normal 98-107 [facility] Comment on above: Performed By: #### C BC, BMPX ####[facility] [address] [place] [address] Lab Director: Bowen Lemon MD CO2 [Moles/Vol] 22 mmol/L Normal 20-31 [facility] Comment on above: Performed By: #### C BC, BMPX ####[facility] [address] [place], [place] [phone] Director: Bowen Lemon MD Creatinine [Mass/Vol] 0.72 mg/dL Normal 0.70-1.20 [facility] Comment on above: Performed By: #### C BC, BMPX ####[facility] [address] [place], [place] [phone] Director: Bowen Lemon MD GFR, Amer >60 Normal >60 [facility] Comment on above: Performed By: #### C BC, BMPX ####[facility] [address] [place], [place] [phone] Director: Bowen Lemon MD GFR,non Amer >60 Normal >60 [facility] Comment on above: Performed By: #### C BC, BMPX ####[facility] [address] [place], [place] [phone] Director: Bowen Lemon MD Glucose [Mass/Vol] 172 mg/dL High 70-99 [facility] Comment on above: Performed By: #### C BC, BMPX ####[facility] [address] [place], [place] [phone] Director: Bowen Lemon MD Potassium [Moles/Vol] 3.9 mmol/L Normal 3.7-5.3 [facility] Comment on above: Performed By: #### C BC, BMPX ####[facility] [address] [place], [place] [phone] Director: Bowen Lemon MD Sodium [Moles/Vol] 138 mmol/L Normal 135-144 [facility] Comment on above: Performed By: #### C BC, BMPX ####[facility] [address] [place], [place] [phone] Director: Bowen Lemon MD Urea nitrogen [Mass/Vol] 11 mg/dL Normal 8-23 [facility] Comment on above: Performed By: #### C BC, BMPX ####[facility] [address] [place], [place] [phone] Lab Director: Bowen Lemon MD BUN/CRE Ratio NOT REPORTED Normal 9-20 [facility] Comment on above: Performed By: #### C BC, BMPX ####[facility] [address] [place], [place] [phone] Lab Director: Bowen Lemon MD Staging: NOT REPORTED Normal [facility] Comment on above: Performed By: #### C BC, BMPX ####[facility] [address] [place], [place] [phone] Lab Director: Bowen Lemon MD Basic Metabolic Panel w/ Ref darlene to MGOrdered By: Jarek Osborn on 04-29-2021 Anion gap [Moles/Vol] 10 mmol/L 9 - 17 mmol/L [employer] Phone: Calcium [Mass/Vol] 8.9 mg/dL 8.6 - 10. 4 mg/dL [employer] Phone: Chloride [Moles/Vol] 106 mmol/L 98 - 10 7 mmol/L [employer] Phone: CO2 [Moles/Vol] 22 mmol/L 20 - 31 mmol/L [employer] Phone: Creatinine [Mass/Vol] 0.72 mg/dL 0.70 - 1.20 mg/dL [employer] Phone: GFR >60 >60 mL/min [employer] Phone: GFR Non- >60 >60 mL/min [employer] Phone: GFR/1.73 sq M.predicted MDRD (S/P/Bld) [Vol rate/Area] [employer] Phone: Comment on above: Average GFR for 60-6 9 years old: 85 mL/min/1.73sq m Chronic Kidney Disease: <60 mL/min/1.73sq m Kidney failure: <15 mL/min/1.73sq m eGFR calculated using average adult body mass. Additional eGFR calculator available at: http://www.Nextly/multiple_crcl_2012.htm GFR/1.73 sq M.predicted MDRD (S/P/Bld) [Vol rate/Area] NOT REPORTED [employer] Phone: Glucose [Mass/Vol] 172 mg/dL High 70 - 99 mg/dL [employer] Phone: Interpretation and review of laboratory results Abnormal [employer] Phone: Potassium [Moles/Vol] 3.9 mmol/L 3.7 - 5.3 mmol/L [employer] Phone: Sodium [Moles/Vol] 138 mmol/L 135 - 144 mmol/L [employer] Phone: Urea nitrogen (BldV) [Mass/Vol] 11 mg/dL 8 - 23 mg/dL [employer] Phone: Urea nitrogen/Creatinine (Bld) [Mass ratio] NOT REPORTED [employer] Phone: [employer] Phone: CBCon 04-29-2021 Erythrocyte distribution width (RBC) [Ratio] 14.1 % Normal 11.8-14.4 [facility] Comment on above: Performed By: #### C DARYN WELLS ####[address] [place] [address] lab Director: Bowen Lemon MD Hematocrit (Bld) [Volume fraction] 37.7 % Low 40.7-50.3 [facility] Comment on above: Performed By: #### C DARYN WELLS ####[facility] [address] [place] [address] Lab Director: Bowen Lemon MD Hemoglobin (Bld) [Mass/Vol] 12.4 g/dL Low 13.0-17.0 [facility] Comment on above: Performed By: #### C BC, BMPX ####[facility] [address] [place] [address] [phone] Director: Bowen Lemon MD MCH (RBC) [Entitic mass] 30.2 pg Normal 25.2-33.5 [facility] Comment on above: Performed By: #### C BC, BMPX ####[facility] [address] [place] [address] lab Director: Bowen Lemon MD MCHC (RBC) [Mass/Vol] 32.9 g/dL Normal 28.4-34.8 [facility] Comment on above: Performed By: #### C BC, BMPX ####[facility] [address] [place] [address] Lab Director: Bowen Lemon MD MCV (RBC) [Entitic vol] 92.0 fL Normal 82.6-102.9 [facility] Comment on above: Performed By: #### C BC, BMPX ####[facility] [address] [place] [address] Lab Director: Bowen Lemon MD NRBC Automated 0.0 per 100 WBC Normal 0.0 [facility] Comment on above: Performed By: #### C BC, BMPX ####[facility] [address] [place] [address] Lab Director: Bowen Lemon MD Platelet mean volume (Bld) [Entitic vol] 10.8 fL Normal 8.1-13.5 [facility] Comment on above: Performed By: #### C BC, BMPX ####[facility] [address] [place] [address] Lab Director: Bowen Lemon MD Platelets (Bld) [#/Vol] 202 10*3/uL Normal 138-453 [facility] Comment on above: Performed By: #### C BC, BMPX ####[facility] [address] [place] [address] Lab Director: Bowen Lemon MD RBC (Bld) [#/Vol] 4.10 10*6/uL Low 4.21-5.77 [facility] Comment on above: Performed By: #### C BC, BMPX ####[facility] [address] [place] [address] Lab Director: Bowen Lemon MD WBC (Bld) [#/Vol] 7.5 10*3/uL Normal 3.5-11.3 [facility] Comment on above: Performed By: #### C BC, BMPX ####[facility] [address] [place] [address] Lab Director: Bowen Lemon MD CBCOrdered By: Gee benoit on 04-29-2021 Hematocrit (Bld) [Volume fraction] 37.7 % Low 40.7 - 50.3 % [employer] Phone: Hemoglobin.gastrointest inal spec 1 Ql (Stl) 12.4 g/dL Low 13.0 - 17.0 g/dL [employer] Phone: Interpretation and review of laboratory results Abnormal [employer] Phone: MCH (RBC) [Entitic mass] 30.2 pg 25.2 - 33.5 pg [employer] Phone: MCHC (RBC) [Mass/Vol] 32.9 g/dL 28.4 - 34.8 g/dL [employer] Phone: MCV (RBC) [Entitic vol] 92.0 fL 82.6 - 102.9 fL [employer] Phone: NRBC Automated 0.0 0.0 per 100 WBC [employer] Phone: Platelet distribution width (Bld) [Ratio] 14.1 % 11.8 - 14.4 % [employer] Phone: Platelet mean volume (Bld) [Entitic vol] 10.8 fL 8.1 - 13.5 fL [employer] Phone: Platelets (Bld) [#/Vol] 202 10*3/uL [employer] Phone: RBC (Bld) [#/Vol] 4.10 10*6/uL Low 4.21 - 5.77 m/uL [employer] Phone: WBC (Bld) [#/Vol] 7.5 10*3/uL [employer] Phone: [employer] Phone: POC Glucose FingerstickOrder ed By: Ning Wallace on 04-29-2021 Glucose [Mass/Vol] 232 mg/dL High 75 - 110 mg/dL [employer] Phone: Interpretation and review of laboratory results Abnormal [employer] Phone: [employer] Phone: Glucose [Mass/Vol] 200 mg/dL High 75 - 110 mg/dL [employer] Phone: Interpretation and review of laboratory results Abnormal [employer] Phone: [employer] Phone: Glucose [Mass/Vol] 186 mg/dL High 75 - 110 mg/dL [employer] Phone: Interpretation and review of laboratory results Abnormal [employer] Phone: [employer] Phone: Glucose [Mass/Vol] 163 mg/dL High 75 - 110 mg/dL [employer] Phone: Interpretation and review of laboratory results Abnormal [employer] Phone: [employer] Phone: APTTOrdered By: Ning martines on 04-28-2021 aPTT Coag (Bld) [Time] 49.2 s High [facility] [employer] Phone: Comment on above: IV Heparin Therapy Range: 48.6-77.8 Interpretation and review of laboratory results Abnormal [employer] Phone: [employer] Phone: aPTT Coag (Bld) [Time] 71.6 s High [facility]: Comment on above: IV Heparin Therapy Range: 48.6-77.8 Interpretation and review of laboratory results Abnormal [employer] Phone: [employer] Phone: aPTT Coag (Bld) [Time] 37.7 s High [facility] Phone: Comment on above: IV Heparin Therapy Range: 48.6-77.8 Interpretation and review of laboratory results Abnormal [employer] Phone: [employer] Phone: aPTT Coag (Bld) [Time] 42.9 s High [facility] Phone: Comment on above: IV Heparin Therapy Range: 48.6-77.8 Interpretation and review of laboratory results Abnormal [employer] Phone: [employer] Phone: APTTon 04-28-2021 aPTT Coag (Bld) [Time] 71.6 s High 20.5-30.5 [facility] Comment on above: Result Comment: IV Heparin Therapy Range: 48.6-77.8 Performed By: #### P TT ####[address] [address] lab Director: Bowen Lemon MD aPTT Coag (Bld) [Time] 37.7 s High 20.5-30.5 [facility] Comment on above: Result Comment: IV Heparin Therapy Range: 48.6-77.8 Performed By: #### P TT ####[address] [address])[phone] Director: Bowen Lemon MD aPTT Coag (Bld) [Time] 42.9 s High 20.5-30.5 [facility] Comment on above: Result Comment: IV Heparin Therapy Range: 48.6-77.8 Performed By: #### P TT ####[address] [address])[phone] Director: Bowen Lemon MD Basic Metab w/rfx MGon 04-28 (cont.) Normal [facility] Comment on above: Result Comment: Aver age GFR for 60-69 years old: 85 mL/min/1.73sq m Chronic Kidney Disease: <60 mL/min/1.73sq m Kidney failure: <15 mL/min/1.73sq m eGFR calculated using average adult body mass. Additional eGFR calculator available at: http://www.Oceanlinx.exurbe cosmetics/multiple_crcl_2012.htm Performed By: #### B MPX, MG ####[address] [address] Lab Director: Bowen Lemon MD Anion gap [Moles/Vol] 11 mmol/L Normal 9-17 [facility] Comment on above: Performed By: #### B MPX, MG ####[address] [address] Lab Director: Bowen Lemon MD Calcium [Mass/Vol] 9.0 mg/dL Normal 8.6-10.4 [facility] Comment on above: Performed By: #### B MPX, MG ####[facility] [address] [place] [address] Lab Director: Bowen Lemon MD Chloride [Moles/Vol] 104 mmol/L Normal 98-107 [facility] Comment on above: Performed By: #### B MPX, MG ####[facility] [address] [place] [address] Lab Director: Bowen Lemon MD CO2 [Moles/Vol] 21 mmol/L Normal 20-31 [facility] Comment on above: Performed By: #### B MPX, MG ####[facility] Fhm[address]xvsbhvzt[address]4 [place] [address] Lab Director: Bowen Lemon MD Creatinine [Mass/Vol] 0.77 mg/dL Normal 0.70-1.20 [facility] Comment on above: Performed By: #### B MPX, MG ####[facility] [address]qu[address] [place] [address] Lab Director: Bowen Lemon MD GFR, Amer >60 Normal >60 [facility] Comment on above: Performed By: #### B MPX, MG ####[facility] [address] [place] [address] Lab Director: Bowen Lemon MD GFR,non Amer >60 Normal >60 [facility] Comment on above: Performed By: #### B MPX, MG ####[facility] [address] [place] [address] Lab Director: Bowen Lemon MD Glucose [Mass/Vol] 250 mg/dL High 70-99 [facility] Comment on above: Performed By: #### B MPX, MG ####[facility] [address] [place] [address] Lab Director: Bowen Lemon MD Potassium [Moles/Vol] 3.7 mmol/L Normal 3.7-5.3 [facility] Comment on above: Performed By: #### B MPX, MG ####[facility] [address] [place] [address] Lab Director: Bowen Lemon MD Sodium [Moles/Vol] 136 mmol/L Normal 135-144 [facility] Comment on above: Performed By: #### B MPX, MG ####[facility] [address] [place] [address] Lab Director: Bowen Lemon MD Urea nitrogen [Mass/Vol] 10 mg/dL Normal 8-23 [facility] Comment on above: Performed By: #### B MPX, MG ####[facility] [address] [place] [address] Lab Director: Bowen Lemon MD BUN/CRE Ratio NOT REPORTED Normal 9- [facility] Comment on above: Performed By: #### B MPX, MG ####[facility] [address] [place], [place] [phone])[phone] Director: Bowen Lemon MD Staging: NOT REPORTED Normal [facility] Comment on above: Performed By: #### B MPX, MG ####[facility] [address] [place] [address] Lab Director: Bowen Lemon MD Basic Metabolic Panel w/ Ref darlene to MGOrdered By: Jarek Osborn on 04-28-2021 Anion gap [Moles/Vol] 11 mmol/L 9 - 17 mmol/L [facility] [employer] Phone: Calcium [Mass/Vol] 9.0 mg/dL 8.6 - 10. 4 mg/dL [facility] [employer] Phone: Chloride [Moles/Vol] 104 mmol/L 98 - 10 7 mmol/L [employer] Phone: CO2 [Moles/Vol] 21 mmol/L 20 - 31 mmol/L [employer] Phone: Creatinine [Mass/Vol] 0.77 mg/dL 0.70 - 1.20 mg/dL [employer] Phone: GFR >60 >60 mL/min [employer] Phone: GFR Non- >60 >60 mL/min [employer] Phone: GFR/1.73 sq M.predicted MDRD (S/P/Bld) [Vol rate/Area] [employer] Phone: Comment on above: Average GFR for 60-6 9 years old: 85 mL/min/1.73sq m Chronic Kidney Disease: <60 mL/min/1.73sq m Kidney failure: <15 mL/min/1.73sq m eGFR calculated using average adult body mass. Additional eGFR calculator available at: http://www.Nextly/multiple_crcl_2012.htm GFR/1.73 sq M.predicted MDRD (S/P/Bld) [Vol rate/Area] NOT REPORTED [employer] Phone: Glucose [Mass/Vol] 250 mg/dL High 70 - 99 mg/dL [employer] Phone: Interpretation and review of laboratory results Abnormal [employer] Phone: Potassium [Moles/Vol] 3.7 mmol/L 3.7 - 5.3 mmol/L [employer] Phone: Sodium [Moles/Vol] 136 mmol/L 135 - 144 mmol/L [employer] Phone: Urea nitrogen (BldV) [Mass/Vol] 10 mg/dL 8 - 23 mg/dL [employer] Phone: Urea nitrogen/Creatinine (Bld) [Mass ratio] NOT REPORTED [employer] Phone: [employer] Phone: Catheterization and angiogra phy procedure details panelOrdered By: Andreas Shepherd on 04-28-2021 Cardiac Diagnostic R eport Demographics Patient REHAN Bryant Date of Study 04/28/2021 Name Date of 1955 Gender Male Age 65 year(s) Race Room [id number]^DANIELLE^ANDREAS Height: 72 inch, 182.88 cm Number Corporate [id number] Weight: 223 pounds, 101.2 ID # kg Patient [id number] BSA: 2.23 m^2 BMI: 30.24 Acct # kg/m^2 MR # [id number] Performing Pj Becerril Physician Referring # Physician Assisting Physician Additional [...] Left coronary angiography. Contrast Material: - Isovue 02399 ml Fluoroscopy Time: Diagnostic: 7:54 minutes. Total: [...] assessed as CCS III according to the [place] clinical classification. Hemodynamics Condition: Baseline Room Air Estimated: 265.46Heart Rate: 76 bpm Pressure +-----+ + !Site !Pressure ! +-----+ + !AO !124/74 (94) ! +-----+ + !AO !122/69 (91) ! +-----+ + !LV !104/2 ,7 ! +-----+ + !LV !138/0 ,8 ! +-----+ + Valve Gradients and Areas + +---------+--- -- (more content not included)... [employer] Work Phone: Adam, Mhpn Incoming C ardio Results From [facility]/Ge - 04/28/2021 10:30 AM EDT Cardiac Diagnostic Report Demographics Patient REHAN Bryant Date of Study 04/28/2021 Name Date of 1955 Gender Male Age 65 year(s) Race Room [id number]^DANIELLE^ANDREAS Height: 72 inch, 182.88 cm Number Corporate [id number] Weight: 223 pounds, 101.2 ID # kg Patient [id number] BSA: 2.23 m^2 BMI: 30.24 Acct # kg/m^2 MR # [id number] Performing Pj Becerril Physician Referring # Physician Assisting Physician Additional [...] Left coronary angiography. Contrast Material: - Isovue 63285 ml Fluoroscopy Time: Diagnostic: 7:54 minutes. Total: [...] assessed as CCS III according to the [place] clinical classification. Hemodynamics Condition: Baseline Room Air [...] ------+---------+--------- -+---------+ + Shunts Oxygen Values O2 Dhqtmtkg696.44O2 Keifkcavnje844.46 [employer] Phone: [employer] Phone: Catheterization and angiogra phy procedure details panelOrdered By: Unknown Result on 04-28-2021 [employer] Phone: ECHO Complete 2D W Doppler W ColorOrdered By: Babak Mancuso on 04-28-2021 Transthoracic Echocardiography Report (TTE) Patient Name ICKES Date of Study 04/28/2021 YOEL Bryant Date of 1955 Gender Male Age 65 year(s) Race Room Number 1015 Height: 72 inch, 182.88 cm Corporate ID [id number] Weight: 223 pounds, 101.2 kg # Patient Acct [id number] BSA: 2.23 m^2 BMI: 30.24 # kg/m^2 MR # [id number] Legal Billing Specialist Smitha [place] Interpreting Physician Marcello Cole Fellow Referring Nurse Practitioner Interpreting Referring Physician Babak Mancuso Fellow Type of Study TTE procedure:2D Echocardiogram, M-Mode, Doppler, Color Doppler, Bubble Study. Procedure Date Date: 04/28/2021 Start: 09:19 AM Study Location: [facility] Technical Quality: Fair visualization Indications:Stroke, [...] m/s Tricuspid: Pulmonic: (more content not included)... [employer] Work Phone: Adam, Mhpn Incoming C ardio Results From [facility]/Ge - 04/28/2021 2:48 PM EDT Transthoracic Echocardiography Report (TTE) Patient Name ICKES Date of Study 04/28/2021 YOEL Bryant Date of 1955 Gender Male Age 65 year(s) Race Room Number 1015 Height: 72 inch, 182.88 cm Corporate ID [id number] Weight: 223 pounds, 101.2 kg # Patient Acct [id number] BSA: 2.23 m^2 BMI: 30.24 # kg/m^2 MR # [id number] Legal Billing Specialist TreSmitha Interpreting Physician Marcello Cole Fellow Referring Nurse Practitioner Interpreting Referring Physician Babak Mancuso Fellow Type of Study TTE procedure:2D Echocardiogram, M-Mode, Doppler, Color Doppler, Bubble Study. Procedure Date Date: 04/28/2021 Start: 09:19 AM Study Location: [facility] Technical Quality: Fair visualization Indications:Stroke, [...] Wall E' velocity:0.07 m/s Lateral Wall E/E':10.8 [employer] Phone: [employer] Phone: Magnesiumon 04-28-2021 Magnesium [Mass/Vol] 1.5 mg/dL Low 1.6-2.6 [facility] Comment on above: Performed By: #### B MPX, MG ####[employer] [address] [place] [address] lab Director: Bowen Lemon MD MagnesiumOrdered By: Jarek Osbonr on 04-28-2021 Interpretation and review of laboratory results Abnormal [employer] Phone: Magnesium [Mass/Vol] 1.5 mg/dL Low 1.6 - 2 .6 mg/dL [employer] Phone: [employer] Phone: POC Glucose FingerstickOrder ed By: Ning Wallace on 04-28-2021 Glucose [Mass/Vol] 182 mg/dL High 75 - 110 mg/dL [employer] Phone: Interpretation and review of laboratory results Abnormal [employer] Phone: [employer] Phone: Glucose [Mass/Vol] 202 mg/dL High 75 - 110 mg/dL [employer] Phone: Interpretation and review of laboratory results Abnormal [employer] Phone: [employer] Phone: Glucose [Mass/Vol] 190 mg/dL High 75 - 110 mg/dL [employer] Phone: Interpretation and review of laboratory results Abnormal [employer] Phone: [employer] Phone: Glucose [Mass/Vol] 198 mg/dL High 75 - 110 mg/dL [employer] Phone: Interpretation and review of laboratory results Abnormal [employer] Phone: [employer] Phone: APTTon 04-27-2021 aPTT Coag (Bld) [Time] 55.7 s High 20.5-30.5 [facility] Comment on above: Result Comment: IV Heparin Therapy Range: 48.6-77.8 Performed By: #### P TT ####[address] [address] Lab Director: Bowen Lemon MD aPTT Coag (Bld) [Time] 71.0 s High 20.5-30.5 [facility] Comment on above: Result Comment: IV Heparin Therapy Range: 48.6-77.8 Performed By: #### P TT ####[address] [address] Lab Director: Bowen Lemon MD aPTT Coag (Bld) [Time] 68.8 s High 20.5-30.5 [facility] Comment on above: Result Comment: IV Heparin Therapy Range: 48.6-77.8 Performed By: #### P TT ####[address] [address] Lab Director: Bowen Lemon MD aPTT Coag (Bld) [Time] 73.8 s High 20.5-30.5 [facility] Comment on above: Result Comment: IV Heparin Therapy Range: 48.6-77.8 Performed By: #### P TT ####[address] [address] Lab Director: Bowen Lemon MD aPTT Coag (Bld) [Time] 64.8 s High 20.5-30.5 Me [facility] Comment on above: Result Comment: IV Heparin Therapy Range: 48.6-77.8 Performed By: #### P TT ####[facility] [address]xqup[address] [place] [address] lab Director: Bowen Lemon MD APTTOrdered By: Ning martines on 04-27-2021 aPTT Coag (Bld) [Time] 55.7 s High Me [employer] Work Phone: Comment on above: IV Heparin Therapy Range: 48.6-77.8 Interpretation and review of laboratory results Abnormal [employer] Phone: [employer] Phone: aPTT Coag (Bld) [Time] 71.0 s High Me [employer] Phone: Comment on above: IV Heparin Therapy Range: 48.6-77.8 Interpretation and review of laboratory results Abnormal [employer] Phone: [employer] Phone: aPTT Coag (Bld) [Time] 68.8 s High [employer] Phone: Comment on above: IV Heparin Therapy Range: 48.6-77.8 Interpretation and review of laboratory results Abnormal [employer] Phone: [employer] Phone: aPTT Coag (Bld) [Time] 73.8 s High [facility] Phone: Comment on above: IV Heparin Therapy Range: 48.6-77.8 Interpretation and review of laboratory results Abnormal [employer] Phone: [employer] Phone: APTTOrdered By: Gee kim on 04-27-2021 aPTT Coag (Bld) [Time] 64.8 s High [facility] [employer] Work Phone: Comment on above: IV Heparin Therapy Range: 48.6-77.8 Interpretation and review of laboratory results Abnormal [facility] [employer] Phone: [facility] [employer] Phone: Basic Metab w/rfx MGon 04-27 (cont.) Normal [facility] Comment on above: Result Comment: Aver age GFR for 60-69 years old: 85 mL/min/1.73sq m Chronic Kidney Disease: <60 mL/min/1.73sq m Kidney failure: <15 mL/min/1.73sq m eGFR calculated using average adult body mass. Additional eGFR calculator available at: http://www.Nextly/multiple_crcl_2012.htm Performed By: #### C BC, BMPX, MG ####[facility] [address] [place] [address] Lab Director: Bowen Lemon MD Anion gap [Moles/Vol] 11 mmol/L Normal 9-17 [facility] Comment on above: Performed By: #### C BC, BMPX, MG ####[facility] [address] [place] [address] Lab Director: Bowen Lemon MD Calcium [Mass/Vol] 8.9 mg/dL Normal 8.6-10.4 [facility] Comment on above: Performed By: #### C BC, BMPX, MG ####[facility] [address] [place] [address] Lab Director: Bowen Lemon MD Chloride [Moles/Vol] 103 mmol/L Normal 98-107 [facility] Comment on above: Performed By: #### C BC, BMPX, MG ####[facility] [address]ycmgp[address] [place] [address] Lab Director: Bowen Lemon MD CO2 [Moles/Vol] 22 mmol/L Normal 20-31 [facility] Comment on above: Performed By: #### C BC, BMPX, MG ####[facility] [address] [place], [place] [phone])[phone] Director: Bowen Lemon MD Creatinine [Mass/Vol] 0.80 mg/dL Normal 0.70-1.20 [facility] Comment on above: Performed By: #### C BC, BMPX, MG ####[facility] [address] [place], [place] [phone] Director: Bowen Lemon MD GFR, Amer >60 Normal >60 [facility] Comment on above: Performed By: #### C BC, BMPX, MG ####[facility] [address] [place] [address] Lab Director: Bowen Lemon MD GFR,non Amer >60 Normal >60 [facility] Comment on above: Performed By: #### C BC, BMPX, MG ####[facility] [address] [place], [place] [phone] Director: Bowen Lemon MD Glucose [Mass/Vol] 189 mg/dL High 70-99 [facility] Comment on above: Performed By: #### C BC, BMPX, MG ####[facility] [address] [place] [address] Lab Director: Bowen Lemon MD Potassium [Moles/Vol] 3.5 mmol/L Low 3.7-5.3 [facility] Comment on above: Performed By: #### C BC, BMPX, MG ####[facility] [address] [place], [place] [phone] Director: Bowen Lemon MD Sodium [Moles/Vol] 136 mmol/L Normal 135-144 [facility] Comment on above: Performed By: #### C BC, BMPX, MG ####[facility] [address] [place] [address] Lab Director: Bowen Lemon MD Urea nitrogen [Mass/Vol] 11 mg/dL Normal - [facility] Comment on above: Performed By: #### C BC, BMPX, MG ####[facility] [address] [place] [address] Lab Director: Bowen Lemon MD BUN/CRE Ratio NOT REPORTED Normal - [facility] Comment on above: Performed By: #### C BC, BMPX, MG ####[facility] [address] [place] [address] lab Director: Bowen Lemon MD Staging: NOT REPORTED Normal [facility] Comment on above: Performed By: #### C BC, BMPX, MG ####[facility] [address] [place] [address] lab Director: Bowen Lemon MD Basic Metabolic PanelOrdered By: Andreas Shepherd on 04-27-2021 Anion gap [Moles/Vol] 13 mmol/L 9 - 17 mmol/L [employer] Phone: Calcium [Mass/Vol] 9.2 mg/dL 8.6 - 10. 4 mg/dL [employer] Phone: Chloride [Moles/Vol] 104 mmol/L 98 - 10 7 mmol/L [employer] Phone: CO2 [Moles/Vol] 20 mmol/L 20 - 31 mmol/L [employer] Phone: Creatinine [Mass/Vol] 0.71 mg/dL 0.70 - 1.20 mg/dL [employer] Phone: GFR >60 >60 mL/min [employer] Phone: GFR Non- >60 >60 mL/min [employer] Phone: GFR/1.73 sq M.predicted MDRD (S/P/Bld) [Vol rate/Area] [employer] Phone: Comment on above: Average GFR for 60-6 9 years old: 85 mL/min/1.73sq m Chronic Kidney Disease: <60 mL/min/1.73sq m Kidney failure: <15 mL/min/1.73sq m eGFR calculated using average adult body mass. Additional eGFR calculator available at: http://www.Nextly/multiple_crcl_2012.htm GFR/1.73 sq M.predicted MDRD (S/P/Bld) [Vol rate/Area] NOT REPORTED [employer] Phone: Glucose [Mass/Vol] 280 mg/dL High 70 - 99 mg/dL [employer] Phone: Interpretation and review of laboratory results Abnormal [employer] Phone: Potassium [Moles/Vol] 3.9 mmol/L 3.7 - 5.3 mmol/L [employer] Phone: Sodium [Moles/Vol] 137 mmol/L 135 - 144 mmol/L [employer] Phone: Urea nitrogen (BldV) [Mass/Vol] 11 mg/dL 8 - 23 mg/dL [employer] Phone: Urea nitrogen/Creatinine (Bld) [Mass ratio] NOT REPORTED [employer] Phone: Basic Metabolic Panel w/ Ref darlene to MGOrdered By: Jarek Osborn on 04-27-2021 Anion gap [Moles/Vol] 11 mmol/L 9 - 17 mmol/L [employer] Phone: Calcium [Mass/Vol] 8.9 mg/dL 8.6 - 10. 4 mg/dL [employer] Phone: Chloride [Moles/Vol] 103 mmol/L 98 - 10 7 mmol/L [employer] Phone: CO2 [Moles/Vol] 22 mmol/L 20 - 31 mmol/L [employer] Phone: Creatinine [Mass/Vol] 0.8 mg/dL 0.70 - 1.20 mg/dL [employer] Phone: GFR >60 >60 mL/min [employer] Phone: GFR Non- >60 >60 mL/min [employer] Phone: GFR/1.73 sq M.predicted MDRD (S/P/Bld) [Vol rate/Area] [employer] Phone: Comment on above: Average GFR for 60-6 9 years old: 85 mL/min/1.73sq m Chronic Kidney Disease: <60 mL/min/1.73sq m Kidney failure: <15 mL/min/1.73sq m eGFR calculated using average adult body mass. Additional eGFR calculator available at: http://www.Nextly/multiple_crcl_2012.htm GFR/1.73 sq M.predicted MDRD (S/P/Bld) [Vol rate/Area] NOT REPORTED [employer] Phone: Glucose [Mass/Vol] 189 mg/dL High 70 - 99 mg/dL [employer] Phone: Interpretation and review of laboratory results Abnormal [employer] Phone: Potassium [Moles/Vol] 3.5 mmol/L Low 3.7 - 5.3 mmol/L [employer] Phone: Sodium [Moles/Vol] 136 mmol/L 135 - 144 mmol/L [employer] Phone: Urea nitrogen (BldV) [Mass/Vol] 11 mg/dL 8 - 23 mg/dL [employer] Phone: Urea nitrogen/Creatinine (Bld) [Mass ratio] NOT REPORTED [facility] Work Phone: [facility] [employer] Work Phone: Basic Metabolic Profon 04-27 (cont.) Normal [facility] Comment on above: Result Comment: Aver age GFR for 60-69 years old: 85 mL/min/1.73sq m Chronic Kidney Disease: <60 mL/min/1.73sq m Kidney failure: <15 mL/min/1.73sq m eGFR calculated using average adult body mass. Additional eGFR calculator available at: http://www.Nextly/multiple_crcl_2011.htm Performed By: #### B ALBINO, MG ####[facility] [address] [place] [address] Lab Director: Shreyas Crain DO Anion gap [Moles/Vol] 13 mmol/L Normal 9-17 [facility] Comment on above: Performed By: #### B ALBINO, MG ####[facility] [address] [facility] [place] [address] Lab Director: Shreyas Crain DO Calcium [Mass/Vol] 9.2 mg/dL Normal 8.6-10.4 [facility] Comment on above: Performed By: #### B ALBINO, MG ####[facility] [address] [facility] [place] [address] Lab Director: Shreyas Crain, DO Chloride [Moles/Vol] 104 mmol/L Normal 98-107 [facility] Comment on above: Performed By: #### B ALBINO, MG ####[facility] Wh[address]93 [place] [address] Lab Director: Shreyas Crain DO CO2 [Moles/Vol] 20 mmol/L Normal 20-31 [facility] Comment on above: Performed By: #### B MP, MG ####[facility] [address] [place] [address] Lab Director: Shreyas Crain DO Creatinine [Mass/Vol] 0.71 mg/dL Normal 0.70-1.20 [facility] Comment on above: Performed By: #### B MP, MG ####[facility] [address] [place] [address] Lab Director: Shreyas Crain, DO GFR, Amer >60 Normal >60 [facility] Comment on above: Performed By: #### B MP, MG ####[facility] [address] [place] [address] Lab Director: Shreyas Crain DO GFR,non Amer >60 Normal >60 [facility] Comment on above: Performed By: #### B MP, MG ####[facility] [address] [place] [address] Lab Director: Shreyas Crain DO Glucose [Mass/Vol] 280 mg/dL High 70-99 [facility] Comment on above: Performed By: #### B ALBINO, MG ####[facility] [address] [place] [address] Lab Director: Shreyas Crain DO Potassium [Moles/Vol] 3.9 mmol/L Normal 3.7-5.3 [facility] Comment on above: Performed By: #### B MP, MG ####[facility] [address] [place] [address] Lab Director: Shreyas Crain DO Sodium [Moles/Vol] 137 mmol/L Normal 135-144 [facility] Comment on above: Performed By: #### B MP, MG ####[facility] [address] [facility] [place] [phone] Director: Shreyas Crain DO Urea nitrogen [Mass/Vol] 11 mg/dL Normal 8-23 [facility] Comment on above: Performed By: #### B MP, MG ####[facility] [address] [facility].[place], [place] [phone] Director: Shreyas Crain DO BUN/CRE Ratio NOT REPORTED Normal 9- [facility] Comment on above: Performed By: #### B MP, MG ####[facility] [address] [facility].[place], [place] [phone] Director: Shreyas Crain DO Staging: NOT REPORTED Normal [facility] Comment on above: Performed By: #### B MP, MG ####[facility] [address] [facility].[place], [place] [phone] Director: Shreyas Crain DO CBCon 04-27-2021 Erythrocyte distribution width (RBC) [Ratio] 13.9 % Normal 11.8-14.4 [facility] Comment on above: Performed By: #### C BC, BMPX, MG ####[facility] [address] [place] [address] Lab Director: Bowen Lemon MD Hematocrit (Bld) [Volume fraction] 38.2 % Low 40.7-50.3 [facility] Comment on above: Performed By: #### C BC, BMPX, MG ####[facility] [address] [place] [address] Lab Director: Bowen Lemon MD Hemoglobin (Bld) [Mass/Vol] 12.9 g/dL Low 13.0-17.0 [facility] Comment on above: Performed By: #### C BC, BMPX, MG ####[facility] [address] [place] [address] Lab Director: Bowen Lemon MD MCH (RBC) [Entitic mass] 30.6 pg Normal 25.2-33.5 [facility] Comment on above: Performed By: #### C BC, BMPX, MG ####[facility] [address] [place], [place] [phone] Director: Bowen Lemon MD MCHC (RBC) [Mass/Vol] 33.8 g/dL Normal 28.4-34.8 [facility] Comment on above: Performed By: #### C BC, BMPX, MG ####[facility] [address] [place], [place] [phone] Director: Bowen Lemon MD MCV (RBC) [Entitic vol] 90.5 fL Normal 82.6-102.9 [facility] Comment on above: Performed By: #### C BC, BMPX, MG ####[facility] [address] [place], [place] [phone] Director: Bowen Lemon MD NRBC Automated 0.0 per 100 WBC Normal 0.0 [facility] Comment on above: Performed By: #### C BC, BMPX, MG ####[facility] [address]jtta[address] [place], [place] [phone] Director: Bowen Lemon MD Platelet mean volume (Bld) [Entitic vol] 10.3 fL Normal 8.1-13.5 [facility] Comment on above: Performed By: #### C BC, BMPX, MG ####[facility] [address] [place], [place] [phone] Director: Bowen Lemon MD Platelets (Bld) [#/Vol] 223 10*3/uL Normal 138-453 [facility] Comment on above: Performed By: #### C BC, BMPX, MG ####[facility] [address] [place], [place] [id number] lab Director: Bowen Lemon MD RBC (Bld) [#/Vol] 4.22 10*6/uL Normal 4.21-5.77 [facility] Comment on above: Performed By: #### C BC, BMPX, MG ####[employer] [address] [place], [place] [id number] lab Director: Bowen Lemon MD WBC (Bld) [#/Vol] 7.9 10*3/uL Normal 3.5-11.3 [facility] Comment on above: Performed By: #### C BC, BMPX, MG ####[employer] [address] [place], [place] [id number] lab Director: Bowen Lemon MD CBCOrdered By: Gee benoit on 04-27-2021 Hematocrit (Bld) [Volume fraction] 38.2 % Low 40.7 - 50.3 % [employer] Phone: Hemoglobin.gastrointest inal spec 1 Ql (Stl) 12.9 g/dL Low 13.0 - 17.0 g/dL [employer] Phone: Interpretation and review of laboratory results Abnormal [employer] Phone: MCH (RBC) [Entitic mass] 30.6 pg 25.2 - 33.5 pg [employer] Phone: MCHC (RBC) [Mass/Vol] 33.8 g/dL 28.4 - 34.8 g/dL [employer] Phone: MCV (RBC) [Entitic vol] 90.5 fL 82.6 - 102.9 fL [employer] Phone: NRBC Automated 0.0 0.0 per 100 WBC [employer] Phone: Platelet distribution width (Bld) [Ratio] 13.9 % 11.8 - 14.4 % [employer] Phone: Platelet mean volume (Bld) [Entitic vol] 10.3 fL 8.1 - 13.5 fL [employer] Phone: Platelets (Bld) [#/Vol] 223 10*3/uL [employer] Phone: RBC (Bld) [#/Vol] 4.22 10*6/uL 4.21 - 5.77 m/uL [employer] Phone: WBC (Bld) [#/Vol] 7.9 10*3/uL [employer] Phone: [employer] Phone: MAGNESIUMOrdered By: Andreas Shepherd on 04-27-2021 Magnesium [Mass/Vol] 1.8 mg/dL 1.6 - 2 .6 mg/dL [employer] Phone: Magnesiumon 04-27-2021 Magnesium [Mass/Vol] 1.8 mg/dL Normal 1.6-2.6 [facility] Comment on above: Performed By: #### B MP, MG ####[facility] [id number] [place] [address] Lab Director: Shreyas Crain DO Magnesium [Mass/Vol] 1.3 mg/dL Low 1.6-2.6 [facility] Comment on above: Performed By: #### C BC, BMPX, MG ####[facility] [address] [place] [address] lab Director: Bowen Lemon MD MagnesiumOrdered By: Jarek Osborn on 04-27-2021 Interpretation and review of laboratory results Abnormal [employer] Phone: Magnesium [Mass/Vol] 1.3 mg/dL Low 1.6 - 2 .6 mg/dL [employer] Phone: [employer] Phone: No Panel InformationOrdered By: Andreas Shepherd on 04-27-2021 [employer] Phone: POC Glucose FingerstickOrder ed By: Ning Wallace on 04-27-2021 Glucose [Mass/Vol] 284 mg/dL High 75 - 110 mg/dL [employer] Phone: Interpretation and review of laboratory results Abnormal [employer] Phone: [employer] Phone: Glucose [Mass/Vol] 254 mg/dL High 75 - 110 mg/dL [employer] Phone: Interpretation and review of laboratory results Abnormal [employer] Phone: [employer] Phone: Glucose [Mass/Vol] 230 mg/dL High 75 - 110 mg/dL [employer] Phone: Interpretation and review of laboratory results Abnormal [employer] Phone: [employer] Phone: Glucose [Mass/Vol] 237 mg/dL High 75 - 110 mg/dL [employer] Phone: Interpretation and review of laboratory results Abnormal [employer] Phone: [employer] Phone: APTTon 04-26-2021 aPTT Coag (Bld) [Time] 44.1 s High 20.5-30.5 [facility] Comment on above: Result Comment: IV Heparin Therapy Range: 48.6-77.8 Performed By: #### P TT ####[employer] [address] [place] [address] lab Director: Bowen Lemon MD aPTT Coag (Bld) [Time] 51.9 s High 20.5-30.5 [facility] Comment on above: Result Comment: IV Heparin Therapy Range: 48.6-77.8 Performed By: #### P TT ####[facility] [address] [place] [address] [facility] Director: Bowen Lemon MD aPTT Coag (Bld) [Time] 48.3 s High 20.5-30.5 [facility] Comment on above: Result Comment: IV Heparin Therapy Range: 48.6-77.8 Performed By: #### P TT ####[address] [address] lab Director: Bowen Lemon MD aPTT Coag (Bld) [Time] 62.7 s High 20.5-30.5 [facility] Comment on above: Result Comment: IV Heparin Therapy Range: 48.6-77.8 Performed By: #### P TT ####[place] [address] lab Director: Bowen Lemon MD APTTOrdered By: Ning martines on 04-26-2021 aPTT Coag (Bld) [Time] 44.1 s High [facility] [employer] Phone: Comment on above: IV Heparin Therapy Range: 48.6-77.8 Interpretation and review of laboratory results Abnormal [facility] Phone: [facility] Work Phone: APTTOrdered By: Gee kim on 04-26-2021 aPTT Coag (Bld) [Time] 51.9 s High [facility] [employer] Work Phone: Comment on above: IV Heparin Therapy Range: 48.6-77.8 Interpretation and review of laboratory results Abnormal [facility] Work Phone: [facility] Work Phone: aPTT Coag (Bld) [Time] 48.3 s High [facility] Work Phone: Comment on above: IV Heparin Therapy Range: 48.6-77.8 Interpretation and review of laboratory results Abnormal [facility] Phone: [facility] Phone: aPTT Coag (Bld) [Time] 62.7 s High [facility] [employer] Phone: Comment on above: IV Heparin Therapy Range: 48.6-77.8 Interpretation and review of laboratory results Abnormal [facility] Phone: [facility] Phone: Basic Metab w/rfx MGon 04-26 Anion gap [Moles/Vol] 12 mmol/L Normal 9-17 [facility] Comment on above: Performed By: #### T ROPI, BMPX, LIPR ####[facility] [address] [place] [address] Lab Director: Bowen Lemon MD Calcium [Mass/Vol] 9.3 mg/dL Normal 8.6-10.4 [facility] Comment on above: Performed By: #### T ROPI, BMPX, LIPR ####[facility] [address] [place] [address] Lab Director: Bowen Lemon MD Chloride [Moles/Vol] 102 mmol/L Normal 98-107 [facility] Comment on above: Performed By: #### T ROPI, BMPX, LIPR ####[facility] [address] [place] [address] Lab Director: Bowen Lemon MD CO2 [Moles/Vol] 23 mmol/L Normal 20-31 [facility] Comment on above: Performed By: #### T ROPI, BMPX, LIPR ####[facility] [address] [place], [place] [address] Lab Director: Bowen Lemon MD Creatinine [Mass/Vol] 0.53 mg/dL Low 0.70-1.20 [facility] Comment on above: Performed By: #### T ROPI, BMPX, LIPR ####[facility] [address] [place] [address] Lab Director: Bowen Lemon MD GFR, Amer >60 Normal >60 [facility] Comment on above: Performed By: #### T ROPI, BMPX, LIPR ####[facility] [address] [place] [address] Lab Director: Bowen Lemon MD GFR,non Amer >60 Normal >60 [facility] Comment on above: Performed By: #### T ROPI, BMPX, LIPR ####[facility] [address] [place] [address] Lab Director: Bowen Lemon MD Glucose [Mass/Vol] 249 mg/dL High 70-99 [facility] Comment on above: Performed By: #### T ROPI, BMPX, LIPR ####[facility] [address] [place] [address] Lab Director: Bowen Lemon MD Potassium [Moles/Vol] 3.6 mmol/L Low 3.7-5.3 [facility] Comment on above: Performed By: #### T ROPI, BMPX, LIPR ####[facility] [address] [place] [address] Lab Director: Bowen Lemon MD Sodium [Moles/Vol] 137 mmol/L Normal 135-144 [facility] Comment on above: Performed By: #### T ROPI, BMPX, LIPR ####[facility] [address] [place] [address] Lab Director: Bowen Lemon MD Urea nitrogen [Mass/Vol] 9 mg/dL Normal 8-23 [facility] Comment on above: Performed By: #### T ROPI, BMPX, LIPR ####[facility] [address] [place], [place] [id number] Lab Director: Bowen Lemon MD (cont.) Normal [facility] Comment on above: Result Comment: Aver age GFR for 60-69 years old: 85 mL/min/1.73sq m Chronic Kidney Disease: <60 mL/min/1.73sq m Kidney failure: <15 mL/min/1.73sq m eGFR calculated using average adult body mass. Additional eGFR calculator available at: http://www.Nextly/multiple_crcl_2012.htm Performed By: #### T ROPI, BMPX, LIPR ####[facility] [address] [place] [address] Lab Director: Bowen Lemon MD BUN/CRE Ratio NOT REPORTED Normal 07-07 [facility] Comment on above: Performed By: #### T ROPI, BMPX, LIPR ####[facility] [address] [place], [place] [address] Lab Director: Bowen Lemon MD Staging: NOT REPORTED Normal [facility] Comment on above: Performed By: #### T ROPI, BMPX, LIPR ####[facility] [address] [place], [place] [id number] Lab Director: Bowen Lemon MD Basic Metabolic Panel w/ Ref darlene to MGOrdered By: Jarek Osborn on 04-26-2021 Anion gap [Moles/Vol] 12 mmol/L 9 - 17 mmol/L [employer] Phone: Calcium [Mass/Vol] 9.3 mg/dL 8.6 - 10. 4 mg/dL [employer] Phone: Chloride [Moles/Vol] 102 mmol/L 98 - 10 7 mmol/L [employer] Phone: CO2 [Moles/Vol] 23 mmol/L 20 - 31 mmol/L [employer] Phone: Creatinine [Mass/Vol] 0.53 mg/dL Low 0.70 - 1.20 mg/dL [employer] Phone: GFR >60 >60 mL/min [employer] Phone: GFR Non- >60 >60 mL/min [employer] Phone: GFR/1.73 sq M.predicted MDRD (S/P/Bld) [Vol rate/Area] [employer] Phone: Comment on above: Average GFR for 60-6 9 years old: 85 mL/min/1.73sq m Chronic Kidney Disease: <60 mL/min/1.73sq m Kidney failure: <15 mL/min/1.73sq m eGFR calculated using average adult body mass. Additional eGFR calculator available at: http://www.Nextly/multiple_crcl_2012.htm GFR/1.73 sq M.predicted MDRD (S/P/Bld) [Vol rate/Area] NOT REPORTED [employer] Phone: Glucose [Mass/Vol] 249 mg/dL High 70 - 99 mg/dL [employer] Phone: Potassium [Moles/Vol] 3.6 mmol/L Low 3.7 - 5.3 mmol/L [employer] Phone: Sodium [Moles/Vol] 137 mmol/L 135 - 144 mmol/L [employer] Phone: Urea nitrogen (BldV) [Mass/Vol] 9 mg/dL 8 - 23 mg/dL [employer] Phone: Urea nitrogen/Creatinine (Bld) [Mass ratio] NOT REPORTED [employer] Phone: Drug Scr, Abuse, Uron 2020 Amphetamine(s),Ur Negative Normal NEG [facility] Comment on above: Result Comment: (Positive cutoff 1000 ng/mL) Performed By: #### U AX, UMICAO, KIM ####[facility] [address] [place] [address] Lab Director: Bowen Lemon MD Barbiturate(s),Ur Negative Normal NEG [facility] Comment on above: Result Comment: (Positive cutoff 200 ng/mL) Performed By: #### U AX, UMICAO, KIM ####[facility] [address] [place] [address] Lab Director: Bowen Lemon MD Benzodiazepine(s) Negative Normal NEG [facility] Comment on above: Result Comment: (Positive cutoff 200 ng/mL) Performed By: #### U AX, UMICAO, KIM ####[facility] [address] [place] [address] Lab Director: Bowen Lemon MD Cannabinoid(s),Ur Negative Normal NEG [facility] Comment on above: Result Comment: (Positive cutoff 50 ng/mL) Performed By: #### U AX, UMICAO, KIM ####[facility] [address] [place] [address] Lab Director: Bowen Lemon MD Cocaine Metabolite Negative Normal NEG [facility] Comment on above: Result Comment: (Positive cutoff 300 ng/mL) Performed By: #### U AX, UMICAO, KIM ####[facility] [address] [place] [address] Lab Director: Bowen Lemon MD Interpretive Info Assay provides medic al screening only. The absence of expected drug(s) and/or Normal [facility] Comment on above: Result Comment: meta bolite(s) may indicate diluted or adulterated urine, limitations of testing or timing of collection. Testing for legal purposes should be confirmed by another method. To request confirmation of test result, please call the lab within 7 days of sample submission. Performed By: #### U AX, UMICAO, KIM ####[facility] [address] [place], [place] [phone] Director: Bowen Lemon MD Methadone Ql (U) Negative Normal NEG [facility] Comment on above: Result Comment: (Positive cutoff 300 ng/mL) Performed By: #### U AX, UMICAO, KIM ####[facility] [address] [place], [place] [phone] Director: Bowen Lemon MD Opiate(s), Ur Negative Normal NEG [facility] Comment on above: Result Comment: (Positive cutoff 300 ng/mL) Performed By: #### U AX, UMICAO, KIM ####[facility] [address] [place] [address] [phone] Director: Bowen Lemon MD Oxycodone, Urine Negative Normal NEG [facility] Comment on above: Result Comment: (Positive cutoff 100 ng/mL) Performed By: #### U AX, UMICAO, KIM ####[facility] [address] [place], [place] [phone] Director: Bowen Lemon MD Phencyclidine, Ur Negative Normal NEG [facility] Comment on above: Result Comment: (Positive cutoff 25 ng/mL) Performed By: #### U AX, UMICAO, KIM ####[facility] [address] [place], [place] [phone] Director: Bowen Lemon MD Buprenorphrine, Ur NOT REPORTED Normal NEG [facility] Comment on above: Performed By: #### U AX, UMICAO, KIM ####[facility] [address] [place] [address] Lab Director: Bowen Lemon MD MDMA, Urine NOT REPORTED Normal NEG [facility] Comment on above: Performed By: #### U AX, UMICAO, KIM ####[facility] [address] [place] [address] Lab Director: Bowen Lemon MD Methamphetamine, Ur NOT REPORTED Normal NEG [facility] Comment on above: Performed By: #### U AX, UMICAO, KIM ####[facility] [address] [place] [address] Lab Director: Bowen Lemon MD Propoxyphene,Urine NOT REPORTED Normal NEG [facility] Comment on above: Performed By: #### U AX, UMICAO, KIM ####[facility] [address] [place] [address] Lab Director: Bowen Lemon MD Tricyclic antidepressants Screen Ql (U) NOT REPORTED Normal NEG [facility] Comment on above: Performed By: #### U AX, UMICAO, KIM ####[facility] [address] [place] [address] Lab Director: Bowen Lemon MD EKG 12 LeadOrdered By: Milton Parnell on 04-26-2021 Atrial Rate 83 BPM [employer] Phone: P Claridge 48 degrees [employer] Phone: P-R Interval 158 ms [employer] Phone: Q-T Interval 394 ms [employer] Phone: QRS Duration 98 ms [employer] Phone: QTc Calculation (Bazett) 462 ms [employer] Phone: R Claridge -20 degrees [employer] Phone: T Claridge 89 degrees [employer] Phone: Ventricular Rate 83 BPM [employer] Phone: Normal sinus rhythm Normal ECG When compared with ECG of 24-APR-2021 21:59, No significant change was found [employer] Phone: Adam, Mhpn Incoming E kg Results From [employer] - 04/26/2021 1:58 PM EDT Normal sinus rhythm Normal ECG When compared with ECG of 24-APR-2021 21:59, No significant change was found [employer] Phone: [employer] Phone: LIPID PANELOrdered By: Jay Osborn on 04-26-2021 Cholesterol [Mass/Vol] 112 mg/dL <200 [employer] Phone: Comment on above: Cholesterol Guidelines: <200 Desirable 200-240 Borderline >240 Undesirable Cholesterol in HDL [Mass/Vol] 25 mg/dL Low >40 [employer] Phone: Comment on above: HDL Guidelines: <40 Undesirable 40-59 Borderline >59 Desirable Cholesterol in LDL [Mass/Vol] 51 mg/dL 0 - 130 mg/dL [employer] Phone: Comment on above: LDL Guidelines: <100 Desirable 100-129 Near to/above Desirable 130-159 Borderline >159 Undesirable Direct (measured) LDL and calculated LDL are not interchangeable tests. Cholesterol in VLDL [Mass/Vol] NOT REPORTED High 1 - 30 mg/dL [employer] Phone: Cholesterol.total/Dania sterol in HDL [Mass ratio] 4.5 {ratio} <5 [employer] Phone: Triglyceride [Mass/Vol] 181 mg/dL High <150 [employer] Phone: Comment on above: Triglyceride Guidelines: <150 Desirable 150-199 Borderline 200-499 High >499 Very high Based on AHA Guidelines for fasting triglyceride, July 2012. Lipid Profileon 04-26-2021 Cholesterol [Mass/Vol] 112 mg/dL Normal <200 Me [facility] Comment on above: Result Comment: Cholesterol Guidelines: <200 Desirable 200-240 Borderline >240 Undesirable Performed By: #### T ROPI, BMPX, LIPR ####[address] [place] [address] Lab Director: Bowen Lemon MD Cholesterol in HDL [Mass/Vol] 25 mg/dL Low >40 [facility] Comment on above: Result Comment: HDL Guidelines: <40 Undesirable 40-59 Borderline >59 Desirable Performed By: #### T ROPI, BMPX, LIPR ####[facility] [address] [place] [address] Lab Director: Bowen Lemon MD Cholesterol in LDL [Mass/Vol] 51 mg/dL Normal 0-130 [facility] Comment on above: Result Comment: LDL Guidelines: <100 Desirable 100-129 Near to/above Desirable 130-159 Borderline >159 Undesirable Direct (measured) LDL and calculated LDL are not interchangeable tests. Performed By: #### T ROPI, BMPX, LIPR ####[facility] [address] [place] [address] Lab Director: Bowen Lemon MD Cholesterol.total/Dania sterol in HDL [Mass ratio] 4.5 {ratio} Normal <5 [facility] Comment on above: Performed By: #### T ROPI, BMPX, LIPR ####[facility] [address] [place] [address] Lab Director: Bowen Lemon MD Triglyceride [Mass/Vol] 181 mg/dL High <150 M [facility] Comment on above: Result Comment: Triglyceride Guidelines: <150 Desirable 150-199 Borderline 200-499 High >499 Very high Based on AHA Guidelines for fasting triglyceride, July 2012. 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 Mild chronic microvascular disease within the periventricular white matter. Moderate cerebral atrophy. Susceptibility within the right parietal lobe periventricular white matter which may represent a cavernoma versus old hemorrhage. [employer] Phone: EXAMINATION: MRI OF THE BRAIN WITHOUT [...] The soft tissues demonstrate no acute abnormality. [employer] Work Phone: Adam, pn Incoming R adiant Results From [employer]/abeo - 04/26/2021 3:56 PM EDT EXAMINATION: MRI [...] may represent a cavernoma versus old hemorrhage. [employer] Work Phone: [employer] Work Phone: MRI CERVICAL SPINE WO CONTRA STon [...] Dhruv Noriega MD 04/26/21 Final result Normal [facility] MRI CERVICAL SPINE WO CONTRA STOrdered By: Esteban Serrano on 04-26-2021 Congenital spinal ca nal stenosis superimposed moderate diffuse degenerative disc disease Moderate central canal stenosis at C5-C6 and C6-C7 and to slightly lesser extent at C3-C4. Multilevel bilateral neural foraminal stenosis as noted above most severe C3-C4 and C6-C7. [employer] Work Phone: EXAMINATION: MRI OF THE CERVICAL [...] spinal canal stenosis or neural foraminal narrowing. [employer] Phone: Adam, Mhpn Incoming R adiant Results From [employer] - 04/26/2021 3:56 PM EDT EXAMINATION: MRI [...] noted above most severe C3-C4 and C6-C7. [employer] Work Phone: [employer] Work Phone: MRI LUMBAR SPINE WO CONTRAST on [...] Dhruv Noriega MD 04/26/21 Final result Normal [facility] MRI LUMBAR SPINE WO CONTRAST Ordered By: [...] at L4-L5. Borderline congenital spinal canal stenosis. [employer] Phone: EXAMINATION: MRI OF THE LUMBAR SPINE [...] encroachment by disc bulge and facet disease. [employer] Phone: Adam, Mhpn Incoming R adiant Results From [employer] - 04/26/2021 3:56 PM EDT EXAMINATION: MRI [...] at L4-L5. Borderline congenital spinal canal stenosis. [employer] Phone: [employer] Phone: No Panel InformationOrdered By: Jarek Osborn on 04-26-2021 Interpretation and review of laboratory results Abnormal [employer] Phone: [employer] Phone: Troponinon 04-26-2021 Troponin, High Sens 267 ng/L Critically high 0-22 [facility] Comment on above: Result Comment: High Sensitivity Troponin values cannot be compared with other Troponin methodologies. Patients with high levels of Biotin oral intake (i.e >5mg/day) may have falsely decreased Troponin levels. Samples collected within 8 hours of biotin intake may require additional information for diagnosis. Previous Alert Value Reported Performed By: #### T ROSA ####[address] [place], [place] [phone] Director: Bowen Lemon MD Troponin Interp. NOT REPORTED Normal [facility] Comment on above: Performed By: #### T ROPI ####[facility] [address] [place], [place] [phone] Director: Bowen Lemon MD Troponin T NOT REPORTED Normal <0.03 [facility] Comment on above: Performed By: #### T ROPI ####[facility] [address] [place], [place] [phone] Director: Bowen Lemon MD Troponin, High Sens 199 ng/L Critically high 0-22 [facility] Comment on above: Result Comment: High Sensitivity Troponin values cannot be compared with other Troponin methodologies. Patients with high levels of Biotin oral intake (i.e >5mg/day) may have falsely decreased Troponin levels. Samples collected within 8 hours of biotin intake may require additional information for diagnosis. Previous Alert Value Reported Performed By: #### T ROPI, BMPX, LIPR ####[facility] [address] [place], [place] [phone] Director: Bowen Lemon MD Troponin Interp. NOT REPORTED Normal [facility] Comment on above: Performed By: #### T ROPI, BMPX, LIPR ####[facility] [address] [place], [place] [phone] Director: Bowen Lemon MD Troponin T NOT REPORTED Normal <0.03 [facility] Comment on above: Performed By: #### T ROPI, BMPX, LIPR ####[facility] [address] [place], [place] [phone] Director: Bowen Lemon MD TroponinOrdered By: Jarek mar on 04-26-2021 Interpretation and review of laboratory results Abnormal [employer] Phone: Troponin Interp NOT REPORTED [employer] Phone: Troponin T NOT REPORTED <0.03 ng/mL [employer] Phone: Troponin, High Sensitivity 267 ng/L Critically high 0 - 22 ng/L [employer] Phone: Comment on above: High Sensitivity Troponin values cannot be compared with other Troponin methodologies. Patients with high levels of Biotin oral intake (i.e >5mg/day) may have falsely decreased Troponin levels. Samples collected within 8 hours of biotin intake may require additional information for diagnosis. Previous Alert Value Reported [employer] Phone: TroponinOrdered By: Babak benton on 04-26-2021 Interpretation and review of laboratory results Abnormal [employer] Phone: Troponin Interp NOT REPORTED [employer] Phone: Troponin T NOT REPORTED <0.03 ng/mL [employer] Phone: Troponin, High Sensitivity 199 ng/L Critically high 0 - 22 ng/L [employer] Phone: Comment on above: High Sensitivity Troponin values cannot be compared with other Troponin methodologies. Patients with high levels of Biotin oral intake (i.e >5mg/day) may have falsely decreased Troponin levels. Samples collected within 8 hours of biotin intake may require additional information for diagnosis. Previous Alert Value Reported [employer] Phone: UA w/Reflex Cultureon 2020 Bilirubin, SemiQt,Ur Negative Normal NEG [facility] Comment on above: Performed By: #### U AX, UMICAO, KIM ####[employer] [address] [place] [address] Lab Director: Bowen Lemon MD Blood, Urine TRACE Abnormal NEG [facility] Comment on above: Performed By: #### U AX, UMICAO, KIM ####[employer] [address] [place] [address] Lab Director: Bowen Lemon MD Clarity (U) CLEAR Normal CLEAR [facility] Comment on above: Performed By: #### U AX, UMICAO, KIM ####[facility] [address] [place] [address] Lab Director: Bowen Lemon MD Color (U) YELLOW Normal YEL [facility] Comment on above: Performed By: #### U AX, UMICAO, KIM ####[facility] [address]wt[address]mf[address] [place] [address] Lab Director: Bowen Lemon MD Glucose Ql (U) 1+ Abnormal NEG [facility] Comment on above: Performed By: #### U AX, UMICAO, KIM ####[facility] [address]pspcn7[address] [place] [address] lab Director: Bowen Lemon MD Ketones Ql (U) TRACE Abnormal NEG [facility] Comment on above: Performed By: #### U AX, UMICAO, KIM ####[facility] [address]jsw[address]pfjqda9060 [place] [address] Lab Director: Bowen Lemon MD Leukocyte esterase Test strip Ql (U) Negative Normal NEG [facility] Comment on above: Performed By: #### U AX, UMICAO, KIM ####[facility] [address]dj[address] [place] [address] Lab Director: Bowen Lemon MD Nitrite,Ur Negative Normal NEG [facility] Comment on above: Performed By: #### U AX, UMICAO, KIM ####[facility] [address]jt[address] [place] [address] Lab Director: Bowen Lemon MD PH,Ur 7.0 Normal 5.0-8.0 [facility] Comment on above: Performed By: #### U AX, UMICAO, KIM ####[facility] [address]ktvrsyn[address]76[address] [place], [place] [phone] Director: Bowen Lemon MD Protein Ql (U) 2+ Abnormal NEG [facility] Comment on above: Performed By: #### U AX, UMICAO, KIM ####[facility] Ktxdfajkaebf9[address] [place], [place] [phone] Director: Bowen Lemon MD Spec. Leota,Ur 1.012 Normal 1.005-1.03 0 [facility] Comment on above: Performed By: #### U AX, UMICAO, KIM ####[facility] Tyg[address]kpqhzrs58[address] [place], [place] [phone] Director: Bowen Lemon MD Urobilinogen,Ur Normal Normal NORM [facility] Comment on above: Performed By: #### U AX, UMICAO, KIM ####[facility] [address] [place], [place] [phone] Director: Bowen Lemon MD Comment NOT REPORTED Normal [facility] Comment on above: Performed By: #### U AX, UMICAO, KIM ####[facility] Vegdlurpqxyy8[address] [place], [place] [phone] Director: Bowen Lemon MD Urinalysis,Microon 1 ----- Normal [facility] Comment on above: Performed By: #### U AX, UMICAO, KIM ####[facility] Iyrfgbomewfm7618 [place], [place] [phone] Director: Bowen Lemon MD Epithelial cells LM Ql (Urine sed) None Normal 0-5 [facility] Comment on above: Performed By: #### U AX, UMICAO, KIM ####[facility] Snpttaxbrftp3802 [place], [place] [phone] Director: Bowen Lemon MD Urine RBC's 5 TO 10 Normal 0-4 [facility] Comment on above: Result Comment: Refe rence range defined for non-centrifuged specimen. Performed By: #### U AX, UMICAO, KIM ####[facility] [address] [place] [address] Lab Director: Bowen Lemon MD Urine WBC's None Normal 0-5 [facility] Comment on above: Performed By: #### U AX, UMICAO, KIM ####[facility] [address]fe[address]20[address] [place] [address] Lab Director: Bowen Lemon MD Amorphous sediment LM Ql (Urine sed) NOT REPORTED Normal NONE [facility] Comment on above: Performed By: #### U AX, UMICAO, KIM ####[facility] [address]fp[address]m69[address] [place] [address] Lab Director: Bowen Lemon MD Bacteria NOT REPORTED Normal NONE [facility] Comment on above: Performed By: #### U AX, UMICAO, KIM ####[facility] [address]ft[address]27[address] [place] [address] Lab Director: Bowen Lemon MD Casts NOT REPORTED Normal 0-8 [facility] Comment on above: Performed By: #### U AX, UMICAO, KIM ####[facility] [address]wqszjgfetb360[address] [place] [address] Lab Director: Bowen Lemon MD Crystals LM Nom (Urine sed) NOT REPORTED Normal NONE [facility] Comment on above: Performed By: #### U AX, UMICAO, KIM ####[facility] [address]asq[address] [place] [address] Lab Director: Bowen Lemon MD Epithelial, Renal NOT REPORTED Normal 0 [facility] Comment on above: Performed By: #### U AX, UMICAO, KIM ####[facility] [address]jc[address] [place] [address] Lab Director: Bowen Lemon MD Mucus Strands NOT REPORTED Normal NONE [facility] Comment on above: Performed By: #### U DANIEL MELGAR KIM ####[facility] Oxfhz[address]jrgmd1518 [place], [place] [phone] Director: Bowen Lemon MD Other Observations NOT REPORTED Normal NREQ [facility] Comment on above: Performed By: #### U AXDANIEL, KIM ####[facility] [address] [place], [place] [phone] Director: Bowen Lemon MD Trichomonas NOT REPORTED Normal NONE [facility] Comment on above: Performed By: #### U DANIEL MELGAR KIM ####[facility] [address]ama[address] [place], [place] [phone] Director: Bowen Lemon MD Yeast NOT REPORTED Normal NONE [facility] Comment on above: Performed By: #### U DANIEL MELGAR, KIM ####[facility] [address]75[address] [place], [place] [phone] Director: Bowen Lemon MD APTTon 04-25-2021 aPTT Coag (Bld) [Time] 24.8 s Normal 20.5-30.5 [facility] Comment on above: Result Comment: IV Heparin Therapy Range: 48.6-77.8 Performed By: #### P TT ####[facility] [address] [place] [address] [phone] Director: Bowen Lemon MD aPTT Coag (Bld) [Time] 78.5 s High 20.5-30.5 [facility] Comment on above: Result Comment: IV Heparin Therapy Range: 48.6-77.8 Performed By: #### C BC, PTT ####[facility] [address]verj[address] [place], [place] [phone] Director: Bowen Lemon MD APTTOrdered By: Pj Becerril on 04-25-2021 aPTT Coag (Bld) [Time] 24.8 s [facility] [employer] Phone: Comment on above: IV Heparin Therapy Range: 48.6-77.8 [facility] Phone: APTTOrdered By: Gee Bergeron elsydiego on 04-25-2021 aPTT Coag (Bld) [Time] 78.5 s High [facility] [employer] Phone: Comment on above: IV Heparin Therapy Range: 48.6-77.8 Interpretation and review of laboratory results Abnormal [facility] [employer] Phone: [facility] Phone: B12/Folate Panelon Folic Acid 15.2 ng/mL Normal >4.8 [facility] Comment on above: Performed By: #### B 12FOL ####[address] [place], [place] [id number] Lab Director: Bowen Lemon MD B12/Folate PanelOrdered By: Sabrina Aguiar on 04-25-2021 Cobalamin (Vitamin B12) [Mass/Vol] 594 pg/mL Normal 232-1245 [facility] [employer] Phone: Comment on above: Performed By: #### B 12FOL ####[employer] [address]nsgi1627 [place] [address] Lab Director: Bowen Lemon MD C-Reactive Proteinon 021 CRP [Mass/Vol] 8.1 mg/L High 0.0-5.0 [facility] Comment on above: Performed By: #### S ED, CRP, STROKE #### [employer] [facility] [address] [place] [address] Back Grinder: Bowen Lemon MD C-Reactive ProteinOrdered By : Kranthi Ruvalcaba on 04-25-2021 CRP [Mass/Vol] 8.1 mg/L High 0.0 - 5.0 mg/L [employer] Phone: Interpretation and review of laboratory results Abnormal [employer] Phone: [employer] Phone: CBCon 04-25-2021 Erythrocyte distribution width (RBC) [Ratio] 14.0 % Normal 11.8-14.4 [facility] Comment on above: Performed By: #### C BC, PTT ####[facility] [address] [place] [address] Lab Director: Bowen Lemon MD Hematocrit (Bld) [Volume fraction] 41.8 % Normal 40.7-50.3 [facility] Comment on above: Performed By: #### C BC, PTT ####[address] [address] Lab Director: Bowen Lemon MD Hemoglobin (Bld) [Mass/Vol] 13.8 g/dL Normal 13.0-17.0 [facility] Comment on above: Performed By: #### C BC, PTT ####[facility] [address] [place] [address] Lab Director: Bowen Lemon MD MCH (RBC) [Entitic mass] 30.7 pg Normal 25.2-33.5 [facility] Comment on above: Performed By: #### C BC, PTT ####[facility] [address] [place] [address] Lab Director: Bowen Lemon MD MCHC (RBC) [Mass/Vol] 33.0 g/dL Normal 28.4-34.8 [facility] Comment on above: Performed By: #### C BC, PTT ####[facility] [address] [place] [address] Lab Director: Bowen Lemon MD MCV (RBC) [Entitic vol] 93.1 fL Normal 82.6-102.9 [facility] Comment on above: Performed By: #### C BC, PTT ####[facility] [address] [place] [address] Lab Director: Bowen Lemon MD NRBC Automated 0.0 per 100 WBC Normal 0.0 [facility] Comment on above: Performed By: #### C BC, PTT ####[facility] [address] [place], [place] [phone] Director: Bowen Lemon MD Platelet mean volume (Bld) [Entitic vol] 10.3 fL Normal 8.1-13.5 [facility] Comment on above: Performed By: #### C BC, PTT ####[facility] [address] [place], [place] [phone] Director: Bowen Lemon MD Platelets (Bld) [#/Vol] 195 10*3/uL Normal 138-453 [facility] Comment on above: Performed By: #### C BC, PTT ####[facility] [address] [place], [place] [phone] Director: Bowen Lemon MD RBC (Bld) [#/Vol] 4.49 10*6/uL Normal 4.21-5.77 [facility] Comment on above: Performed By: #### C BC, PTT ####[facility] [address] [place], [place] [phone] Director: Bowen Lemon MD WBC (Bld) [#/Vol] 6.7 10*3/uL Normal 3.5-11.3 [facility] Comment on above: Performed By: #### C BC, PTT ####[facility] [address] [place], [place] [phone] Director: Bowen Lemon MD CBCOrdered By: Gee benoit on 04-25-2021 Hematocrit (Bld) [Volume fraction] 41.8 % 40.7 - 50.3 % [employer] Phone: Hemoglobin.gastrointest inal spec 1 Ql (Stl) 13.8 g/dL 13.0 - 17.0 g/dL [employer] Phone: MCH (RBC) [Entitic mass] 30.7 pg 25.2 - 33.5 pg [employer] Phone: MCHC (RBC) [Mass/Vol] 33.0 g/dL 28.4 - 34.8 g/dL [employer] Phone: MCV (RBC) [Entitic vol] 93.1 fL 82.6 - 102.9 fL [employer] Phone: NRBC Automated 0.0 0.0 per 100 WBC [employer] Phone: Platelet distribution width (Bld) [Ratio] 14.0 % 11.8 - 14.4 % [employer] Phone: Platelet mean volume (Bld) [Entitic vol] 10.3 fL 8.1 - 13.5 fL [employer] Phone: Platelets (Bld) [#/Vol] 195 10*3/uL [employer] Phone: RBC (Bld) [#/Vol] 4.49 10*6/uL 4.21 - 5.77 m/uL [employer] Phone: WBC (Bld) [#/Vol] 6.7 10*3/uL [employer] Phone: [employer] Phone: COVID-19, RapidOrdered By: Alonso Oreilly on 04-25-2021 SARS-CoV-2 (COVID-19) RNA PLACIDO+probe Ql (Unsp spec) Not detected Not Detected [employer] Phone: Comment on above: Rapid NAAT: The [...] management decisions. Fact sheet for Healthcare Providers: https://www.fda.gov/media/995707/download Fact sheet for Patients: https://www.fda.gov/media/551812/download Methodology: Isothermal Nucleic Acid Amplification Specimen Description .NASOPHARYNGEAL SWAB [employer] Phone: [employer] Phone: CT ABDOMEN PELVIS WO CONTRAS Ton [...] Guero Juárez MD 04/25/21 Final result Normal [facility] CT ABDOMEN PELVIS WO CONTRAS T Additional [...] secondary to encroachment by disc osteophyte complex. [facility] [employer] Phone: EXAMINATION: CT OF T HE ABDOMEN AND PELVIS WITHOUT CONTRAST 04/25/2021 3:22 [...] soft tissues are otherwise unremarkable in appearance. [employer] Work Phone: Adam, Mhpn Incoming R adiant Results From [employer]/abeo - 04/25/2021 5:21 AM EDT EXAMINATION: CT [...] secondary to encroachment by disc osteophyte complex. [employer] Phone: [employer] Phone: CT CERVICAL SPINE WO CONTRAS Ton [...] of significant central canal stenosis/compromise identified. Multilevel khrn-ds-oekgmbyr facet degenerative hypertrophy is seen. C3/C4 mild [...] by disc osteophyte complex. Interpreted by: Guero Juárze MD Signed by: Guero Juárez MD 04/24/21 Final result Normal [facility] CT HEAD WO CONTRASTon 2020 CT HEAD [...] Bandar Ardon MD 04/24/21 Final result Normal [facility] CTA HEAD NECK W CONTRASTon 0 04-25-2021 [...] Guero Juárez MD 04/24/21 Final result Normal [facility] DRUG SCREEN MULTI URINEOrder ed By: Jarek Osborn on 04-25-2021 Amphetamine Screen, Ur Negative NEGATIVE [facility] [employer] Phone: Comment on above: (Positive cutoff 1000 ng/mL) Barbiturate Screen, Ur Negative NEGATIVE [facility] [employer] Phone: Comment on above: (Positive cutoff 200 ng/mL) Benzodiazepine Screen, Urine Negative NEGATIVE [facility] [employer] Work Phone: Comment on above: (Positive cutoff 200 ng/mL) Buprenorphine Urine NOT REPORTED NEGATIVE [employer] Work Phone: Cannabinoid Scrn, Ur Negative NEGATIVE [facility] [employer] Work Phone: Comment on above: (Positive cutoff 50 ng/mL) Cocaine Metabolite, Urine Negative NEGATIVE [facility] [employer] Work Phone: Comment on above: (Positive cutoff 300 ng/mL) MDMA, Urine NOT REPORTED NEGATIVE [facility] Phone: Methadone Screen, Urine Negative NEGATIVE [facility] [employer] Work Phone: Comment on above: (Positive cutoff 300 ng/mL) Methamphetamine, Urine NOT REPORTED NEGATIVE [employer] Work Phone: Opiates, Urine Negative NEGATIVE [employer] Work Phone: Comment on above: (Positive cutoff 300 ng/mL) Oxycodone Screen, Ur Negative NEGATIVE [facility] [employer] Phone: Comment on above: (Positive cutoff 100 ng/mL) Phencyclidine, Urine Negative NEGATIVE [employer] Work Phone: Comment on above: (Positive cutoff 25 ng/mL) Propoxyphene, Urine NOT REPORTED NEGATIVE [employer] Work Phone: Test Information Assay provides medic al screening only. The absence of expected drug(s) and/or metabolite(s) may indicate diluted or adulterated urine, limitations of testing or timing of collection. [employer] Phone: Comment on above: Testing for legal pu rposes should be confirmed by another method. To request confirmation of test result, please call the lab within 7 days of sample submission. Tricyclic Antidepressants, Urine NOT REPORTED NEGATIVE [employer] Phone: [employer] Phone: EEG awake and drowsyOrdered By: Sabrina [...] 13.9 mL/hr at 04/25/212233 13.783 Units/kg/hr at 04/25/212233 atorvastatin (LIPITOR) tablet 40 mg 40 mg Oral Daily Gee Dewey MD gabapentin (NEURONTIN) tablet 600 mg 600 mg Oral BID Gee Dewey MD 600 mg at 04/25/212224 nitroGLYCERIN (NITROSTAT) SL tablet 0.4 mg 0.4 mg Sublingual Q5 Min PRN Gee Dewey MD traZODone (DESYREL) tablet 200 mg 200 mg Oral Nightly Gee Dewey MD 200 mg at 04/25/212223 metoprolol tartrate (LOPRESSOR) tablet 25 mg 25 mg Oral BID Gee Dewey MD 25 mg at 04/25/212224 [START ON 04/26/2021] clopidogrel (PLAVIX) tablet 75 mg 75 mg Oral Daily Patience Dewey MD pantoprazole (PROTONIX) tablet 40 mg 40 mg Oral Nightly Gee Parnell MD 40 mg at 04/25/212224 Technical Description: This is a 21 channel [...] non specific etiology. Juan Judd MD Diplomate, [place] [employer] Phone: [employer] Phone: EKG 12 LeadOrdered By: Rashawn Ruvalcaba on 04-25-2021 Atrial Rate 84 BPM [employer] Phone: P Claridge 43 degrees [employer] Phone: P-R Interval 166 ms [employer] Phone: Q-T Interval 380 ms [employer] Phone: QRS Duration 96 ms [employer] Phone: QTc Calculation (Bazett) 449 ms [employer] Phone: R Claridge -8 degrees [employer] Phone: T Claridge 99 degrees [employer] Phone: Ventricular Rate 84 BPM [employer] Phone: Normal sinus rhythm Abnormal QRS-T angle, consider primary T wave abnormality Abnormal ECG When compared with ECG of 30-OCT-2019 17:11, No significant change was found [employer] Phone: Adam, Mhpn Incoming E kg Results From [employer] - 04/25/2021 1:23 PM EDT Normal sinus rhythm Abnormal QRS-T angle, consider primary T wave abnormality Abnormal ECG When compared with ECG of 30-OCT-2019 17:11, No significant change was found [employer] Phone: [employer] Phone: HEMOGLOBIN [id number] By: Rolando Epstein on 04-25-2021 Glucose [Mass/Vol] 169 mg/dL [employer] Phone: Comment on above: The ADA and AACC rec ommend providing the estimated average glucose result to permit better patient understanding of their HBA1c result. HbA1c (Bld) [Mass fraction] 7.5 % High 4.0 - 6.0 % [employer] Phone: Interpretation and review of laboratory results Abnormal [employer] Phone: [employer] Phone: Hemoglobin A1Con 04-25-2021 Glucose [Mass/Vol] 169 mg/dL Normal [facility] Comment on above: Result Comment: The ADA and AACC recommend providing the estimated average glucose result to permit better patient understanding of their HBA1c result. Performed By: #### G LYHGB ####[employer] [address] [place], [place] [phone] lab Director: Bowen Lemon MD HbA1c (Bld) [Mass fraction] 7.5 % High 4.0-6.0 [facility] Comment on above: Performed By: #### G LYHGB ####[employer] [address] [place] [address] lab Director: Bowen Lemon MD Microscopic UrinalysisOrdere d By: Jarek Osborn on 04-25-2021 - [employer] Phone: Amorphous, UA NOT REPORTED None [employer] Phone: Bacteria, UA NOT REPORTED None [employer] Phone: Casts UA NOT REPORTED [employer] Phone: Crystals, UA NOT REPORTED None /HPF [employer] Phone: Epithelial Cells UA None [employer] Phone: Mucus, UA NOT REPORTED None [employer] Phone: Other Observations UA NOT REPORTED NOT REQ. [facility] Work Phone: RBC, UA 5 TO 10 [employer] Phone: Comment on above: Reference range defi odette for non-centrifuged specimen. Renal Epithelial, UA NOT REPORTED 0 /HPF [facility] [employer] Work Phone: Trichomonas, UA NOT REPORTED None [employer] Phone: WBC, UA None [employer] Phone: Yeast, UA NOT REPORTED None [employer] Phone: [employer] Work Phone: POC Glucose FingerstickOrder ed By: Callie Murrell on 04-25-2021 Glucose [Mass/Vol] 224 mg/dL High 75 - 110 mg/dL [employer] Phone: Interpretation and review of laboratory results Abnormal [employer] Phone: [employer] Phone: [id number] 04-25-2021 SARS-CoV-2 (COVID-19) RNA PLACIDO+probe Ql (Unsp spec) Not detected Normal NOTDET [facility] Comment on above: Result Comment: Rapid NAAT: [...] management decisions. Fact sheet for Healthcare Providers: https://www.fda.gov/media/113208/download Fact sheet for Patients: https://www.fda.gov/media/891732/download Methodology: Isothermal Nucleic Acid Amplification Performed By: #### C OVRB #### [employer] [address] [place] [address] Back Grinder: Bowen Lemon MD STROKE PANELOrdered By: Tuan Ruvalcaba on 04-25-2021 % CKMB 4.6 % High 0.0 - 3.5 % [employer] Phone: Absolute Eos # 0.07 [employer] Phone: Absolute Immature Granulocyte 0.04 [employer] Phone: Absolute Lymph # 2.89 [employer] Phone: Absolute [place] # 0.72 [facility] Phone: Anion gap [Moles/Vol] 16 mmol/L 9 - 17 mmol/L [employer] Phone: aPTT Coag (Bld) [Time] 23.4 s [employer] Phone: Comment on above: IV Heparin Therapy Range: 48.6-77.8 Basophils (Bld) [#/Vol] 0.05 10*3/uL [facility] Phone: Basophils/100 WBC (Bld) 1 % 0 - 2 % [facility] Phone: Calcium [Mass/Vol] 9.8 mg/dL 8.6 - 10. 4 mg/dL [employer] Phone: Chloride [Moles/Vol] 99 mmol/L 98 - 10 7 mmol/L [facility] Phone: CK [Catalytic activity/Vol] 108 U/L 39 - 308 U/L [employer] Phone: CK.MB [Mass/Vol] 5 ng/mL <10.5 [employer] Phone: CKMB Interpretation NORMAL ISOENZYME PATTERN [employer] Phone: CO2 [Moles/Vol] 19 mmol/L Low 20 - 31 mmol/L [employer] Phone: Creatinine [Mass/Vol] 0.82 mg/dL 0.70 - 1.20 mg/dL [employer] Phone: Differential Type NOT REPORTED [employer] Phone: Eosinophils/100 WBC (Bld) 1 % 1 - 4 % [facility] Phone: GFR >60 >60 mL/min [employer] Phone: GFR Non- >60 >60 mL/min [employer] Phone: GFR/1.73 sq M.predicted MDRD (S/P/Bld) [Vol rate/Area] [employer] Phone: Comment on above: Average GFR for 60-6 9 years old: 85 mL/min/1.73sq m Chronic Kidney Disease: <60 mL/min/1.73sq m Kidney failure: <15 mL/min/1.73sq m eGFR calculated using average adult body mass. Additional eGFR calculator available at: http://www.[employer]/Lingvist_crcl_2012.htm GFR/1.73 sq M.predicted MDRD (S/P/Bld) [Vol rate/Area] NOT REPORTED [employer] Phone: Glucose [Mass/Vol] 130 mg/dL High 70 - 99 mg/dL [employer] Phone: Hematocrit (Bld) [Volume fraction] 44.0 % 40.7 - 50.3 % [employer] Phone: Hemoglobin.gastrointest inal spec 1 Ql (Stl) 14.5 g/dL 13.0 - 17.0 g/dL [employer] Phone: Immature granulocytes/100 WBC (Bld) 0 % 0 [employer] Phone: INR Coag (Bld) [Relative time] 1.0 {INR} [employer] Phone: Comment on above: Therapeutic Range: Moderate Anticoagulant Intensity: INR = 2.0-3.0 High Anticoagulant Intensity: INR = 2.5-3.5 Interpretation and review of laboratory results Abnormal [employer] Phone: Lymphocytes/100 WBC (Bld) 29 % 24 - 43 % [employer] Phone: MCH (RBC) [Entitic mass] 29.9 pg 25.2 - 33.5 pg [employer] Phone: MCHC (RBC) [Mass/Vol] 33.0 g/dL 28.4 - 34.8 g/dL [employer] Phone: MCV (RBC) [Entitic vol] 90.7 fL 82.6 - 102.9 fL [employer] Phone: Monocytes/100 WBC (Bld) 7 % 3 - 12 % [employer] Phone: Myoglobin [Mass/Vol] 41 ng/mL 28 - 72 ng/mL [employer] Phone: NRBC Automated 0.0 0.0 per 100 WBC [employer] Phone: Platelet distribution width (Bld) [Ratio] 14.0 % 11.8 - 14.4 % [employer] Phone: Platelet Estimate NOT REPORTED [employer] Phone: Platelet mean volume (Bld) [Entitic vol] 11.1 fL 8.1 - 13.5 fL [employer] Phone: Platelets (Bld) [#/Vol] 249 10*3/uL [employer] Phone: Potassium [Moles/Vol] 3.7 mmol/L 3.7 - 5.3 mmol/L [employer] Phone: PT Coag (PPP) [Time] 10.7 s [employer] Phone: RBC (Bld) [#/Vol] 4.85 10*6/uL 4.21 - 5.77 m/uL [employer] Phone: RBC (Bld) [#/Vol] NOT REPORTED [employer] Phone: Segmented neutrophils/100 WBC (Bld) 62 % 36 - 65 % [employer] Phone: Segs Absolute 6.24 [employer] Phone: Sodium [Moles/Vol] 134 mmol/L Low 135 - 144 mmol/L [employer] Phone: Troponin Interp NOT REPORTED [employer] Phone: Troponin T NOT REPORTED <0.03 ng/mL [employer] Phone: Troponin, High Sensitivity 180 ng/L Critically high 0 - 22 ng/L [facility] [employer] Phone: Comment on above: High Sensitivity Troponin values cannot be compared with other Troponin methodologies. Patients with high levels of Biotin oral intake (i.e >5mg/day) may have falsely decreased Troponin levels. Samples collected within 8 hours of biotin intake may require additional information for diagnosis. Urea nitrogen (BldV) [Mass/Vol] 18 mg/dL 8 - 23 mg/dL [employer] Phone: Urea nitrogen/Creatinine (Bld) [Mass ratio] NOT REPORTED [employer] Phone: WBC (Bld) [#/Vol] 10.0 10*3/uL [employer] Phone: WBC (Bld) [#/Vol] NOT REPORTED [employer] Phone: [employer] Phone: Sedimentation Rateon 021 Sedimentation Rate 25 mm High 0-20 [facility] Comment on above: Performed By: #### S ED, CRP, STROKE #### [employer] [address] [place], [place] [id number] Back Grinder: Bowen Lemon MD Stroke Panelon 04-25-2021 % CKMB 4.6 % High 0.0-3.5 [facility] Comment on above: Performed By: #### S ED, CRP, STROKE #### [address] [address] Back Grinder: Bowen Lemon MD CK-MB,Quantitative 5.0 ng/mL Normal <10.5 [facility] Comment on above: Performed By: #### S ED CRP, STROKE #### [address] [address] Back Grinder: Bowen Lemon MD CKMB-Interpretation NORMAL ISOENZYME PATTERN Normal [facility] Comment on above: Performed By: #### S SHANNAN MCKNIGHT, STROKE #### [address] [address] Back Grinder: Bowen Lemon MD (cont.) Normal [facility] Comment on above: Result Comment: Aver age GFR for 60-69 years old: 85 mL/min/1.73sq m Chronic Kidney Disease: <60 mL/min/1.73sq m Kidney failure: <15 mL/min/1.73sq m eGFR calculated using average adult body mass. Additional eGFR calculator available at: http://www.Oceanlinx.exurbe cosmetics/multiple_crcl_2012.htm Performed By: #### S ROXANNA CRP, STROKE #### [address] [address] Back Grinder: Bowen Lemon MD Anion gap [Moles/Vol] 16 mmol/L Normal 9-17 [facility] Comment on above: Performed By: #### S ROXANNA CRP, STROKE #### [address] [address] Back Grinder: Bowen Lemon MD Calcium [Mass/Vol] 9.8 mg/dL Normal 8.6-10.4 [facility] Comment on above: Performed By: #### S ED CRP, STROKE #### [address] [address] Back Grinder: Bowen Lemon MD Chloride [Moles/Vol] 99 mmol/L Normal 98-107 [facility] Comment on above: Performed By: #### S ED, CRP, STROKE #### [facility] [address] [place] [address] Back Grinder: Bowen Lemon MD CK [Catalytic activity/Vol] 108 U/L Normal 39-308 [facility] Comment on above: Performed By: #### S ED, CRP, STROKE #### [facility] [address] [place] [address] Back Grinder: Bowen Lemon MD CO2 [Moles/Vol] 19 mmol/L Low 20-31 [facility] Comment on above: Performed By: #### S ED, CRP, STROKE #### [facility] [address] [place] [address] Back Grinder: Bowen Lemon MD Creatinine [Mass/Vol] 0.82 mg/dL Normal 0.70-1.20 [facility] Comment on above: Performed By: #### S ED, CRP, STROKE #### [facility] [address] [place] [address] Back Grinder: Bowen Lemon MD GFR, Amer >60 Normal >60 [facility] Comment on above: Performed By: #### S ED, CRP, STROKE #### [facility] [address] [place] [address] Back Grinder: Bowen Lemon MD GFR,non Amer >60 Normal >60 [facility] Comment on above: Performed By: #### S ED, CRP, STROKE #### [facility] [address] [place] [address] Back Grinder: Bowen Lemon MD Glucose [Mass/Vol] 130 mg/dL High 70-99 [facility] Comment on above: Performed By: #### S ED, CRP, STROKE #### [facility] [address] [place] [address] Back Grinder: Bowen Lemon MD Potassium [Moles/Vol] 3.7 mmol/L Normal 3.7-5.3 [facility] Comment on above: Performed By: #### S ED, CRP, STROKE #### [facility] [address] [place] [address] Back Grinder: Bowen Lemon MD Sodium [Moles/Vol] 134 mmol/L Low 135-144 [facility] Comment on above: Performed By: #### S ED, CRP, STROKE #### [facility] [address] [place] [address] Back Grinder: Bowen Lemon MD Urea nitrogen [Mass/Vol] 18 mg/dL Normal 8-23 [facility] Comment on above: Performed By: #### S ED, CRP, STROKE #### [facility] [address] [place] [address] Back Grinder: Bowen Lemon MD Myoglobin [Mass/Vol] 41 ng/mL Normal 28-72 [facility] Comment on above: Performed By: #### S ED, CRP, STROKE #### [facility] [address] [place] [address] Back Grinder: Bowen Lemon MD Troponin, High Sens 180 ng/L Critically high 0-22 [facility] Comment on above: Result Comment: High Sensitivity Troponin values cannot be compared with other Troponin methodologies. Patients with high levels of Biotin oral intake (i.e >5mg/day) may have falsely decreased Troponin levels. Samples collected within 8 hours of biotin intake may require additional information for diagnosis. Performed By: #### S ED, CRP, STROKE #### [facility] [address] [place] [address] Back Grinder: Bowen Lemon MD INR Coag (PPP) [Relative time] 1.0 {INR} Normal [facility] Comment on above: Result Comment: Therapeutic Range: Moderate Anticoagulant Intensity: INR = 2.0-3.0 High Anticoagulant Intensity: INR = 2.5-3.5 Performed By: #### S ED, CRP, STROKE #### [address] [address] Back Grinder: Bowen Lemon MD PT Coag (PPP) [Time] 10.7 s Normal 9.1-12.3 [facility] Comment on above: Performed By: #### S ED, CRP, STROKE #### [address] [address] Back Grinder: Bowen Lemon MD aPTT Coag (Bld) [Time] 23.4 s Normal 20.5-30.5 [facility] Comment on above: Result Comment: IV Heparin Therapy Range: 48.6-77.8 Performed By: #### S ED, CRP, STROKE #### [address] [address] Back Grinder: Bowen Lemon MD Abs. Basophil 0.05 k/uL Normal 0.00-0.20 [facility] Comment on above: Performed By: #### S ED, CRP, STROKE #### [address] [address] Back Grinder: Bowen Lemon MD Abs.Imm.Granulocyte 0.04 k/uL Normal 0.00-0.30 [facility] Comment on above: Performed By: #### S ED, CRP, STROKE #### [address] [address] Back Grinder: Bowen Lemon MD Abs.Neutrophil (Seg) 6.24 k/uL Normal 1.50-8.10 [facility] Comment on above: Performed By: #### S ED, CRP, STROKE #### [address] [address] Back Grinder: Bowen Lemon MD Basophils/100 WBC (Bld) 1 % Normal 0-2 [facility] Comment on above: Performed By: #### S ED, CRP, STROKE #### [address] [address] Back Grinder: Bowen Lemon MD Eosinophils (Bld) [#/Vol] 0.07 10*3/uL Normal 0.00-0.44 [facility] Comment on above: Performed By: #### S ED, CRP, STROKE #### [address] [address] Back Grinder: Bowen Lemon MD Eosinophils/100 WBC (Bld) 1 % Normal 1-4 [facility] Comment on above: Performed By: #### S ED, CRP, STROKE #### [address] [address] Back Grinder: Bowen Lemon MD Erythrocyte distribution width (RBC) [Ratio] 14.0 % Normal 11.8-14.4 [facility] Comment on above: Performed By: #### S ED, CRP, STROKE #### [address] [address] Back Grinder: Bowen Lemon MD Hematocrit (Bld) [Volume fraction] 44.0 % Normal 40.7-50.3 [facility] Comment on above: Performed By: #### S ED, CRP, STROKE #### [address] [address] Back Grinder: Bowen Lemon MD Hemoglobin (Bld) [Mass/Vol] 14.5 g/dL Normal 13.0-17.0 [facility] Comment on above: Performed By: #### S ED, CRP, STROKE #### [facility] [address] [place] [address] Back Grinder: Bowen Lemon MD Immature granulocytes/100 WBC (Bld) 0 % Normal 0 [facility] Comment on above: Performed By: #### S ED, CRP, STROKE #### [address] [address] Back Grinder: Bowen Lemon MD Lymphocytes (Bld) [#/Vol] 2.89 10*3/uL Normal 1.10-3.70 [facility] Comment on above: Performed By: #### S ED, CRP, STROKE #### [address] [address] Back Grinder: Bowen Lemon MD Lymphocytes/100 WBC (Bld) 29 % Normal 24-43 [facility] Comment on above: Performed By: #### S ED, CRP, STROKE #### [address] [address] Back Grinder: Bowen Lemon MD MCH (RBC) [Entitic mass] 29.9 pg Normal 25.2-33.5 [facility] Comment on above: Performed By: #### S ED, CRP, STROKE #### [address] [address] Back Grinder: Bowen Lemon MD MCHC (RBC) [Mass/Vol] 33.0 g/dL Normal 28.4-34.8 [facility] Comment on above: Performed By: #### S ED, CRP, STROKE #### [address] [address] Back Grinder: Bowen Lemon MD MCV (RBC) [Entitic vol] 90.7 fL Normal 82.6-102.9 [facility] Comment on above: Performed By: #### S ED, CRP, STROKE #### [address] [address] Back Grinder: Bowen Lemon MD Monocytes (Bld) [#/Vol] 0.72 10*3/uL Normal 0.10-1.20 [facility] Comment on above: Performed By: #### S ED, CRP, STROKE #### [facility] [address] [place] [address] Back Grinder: Bowen Lemon MD Monocytes/100 WBC (Bld) 7 % Normal 3-12 [facility] Comment on above: Performed By: #### S ED, CRP, STROKE #### [address] [address] Back Grinder: Bowen Lemon MD Neutrophil (Seg) 62 % Normal 36-65 [facility] Comment on above: Performed By: #### S ED, CRP, STROKE #### [address] [address] Back Grinder: Bowen Lemon MD NRBC Automated 0.0 per 100 WBC Normal 0.0 [facility] Comment on above: Performed By: #### S ED, CRP, STROKE #### [address] [address] Back Grinder: Bowen Lemon MD Platelet mean volume (Bld) [Entitic vol] 11.1 fL Normal 8.1-13.5 [facility] Comment on above: Performed By: #### S ED, CRP, STROKE #### [address] [address] Back Grinder: Bowen Lemon MD Platelets (Bld) [#/Vol] 249 10*3/uL Normal 138-453 [facility] Comment on above: Performed By: #### S ED, CRP, STROKE #### [address] [address] Back Grinder: Bowen Lemon MD RBC (Bld) [#/Vol] 4.85 10*6/uL Normal 4.21-5.77 [facility] Comment on above: Performed By: #### S ED, CRP, STROKE #### [address] [address] Back Grinder: Bowen Lemon MD WBC (Bld) [#/Vol] 10.0 10*3/uL Normal 3.5-11.3 [facility] Comment on above: Performed By: #### S ED, CRP, STROKE #### [facility] [address] [place] [address] Back Grinder: Bowen Lemon MD Auto Diff Performed NOT REPORTED Normal [facility] Comment on above: Performed By: #### S ED, CRP, STROKE #### [facility] [address] [place] [address] Back Grinder: Bowen Lemon MD BUN/CRE Ratio NOT REPORTED Normal -20 [facility] Comment on above: Performed By: #### S ED, CRP, STROKE #### [facility] [address] [place] [address] Back Grinder: Bowen Lemon MD Platelet Estimate NOT REPORTED Normal [facility] Comment on above: Performed By: #### S ED, CRP, STROKE #### [facility] [address] [place] [address] Back Grinder: Bowen Lemon MD RBC morphology finding Nom (Bld) NOT REPORTED Normal [facility] Comment on above: Performed By: #### S ED, CRP, STROKE #### [facility] [address] [place] [address] Back Grinder: Bowen Lemon MD Staging: NOT REPORTED Normal [facility] Comment on above: Performed By: #### S ED, CRP, STROKE #### [facility] [address] [place] [address] Back Grinder: Bowen Lemon MD Troponin Interp. NOT REPORTED Normal [facility] Comment on above: Performed By: #### S ED, CRP, STROKE #### [facility] [address] [place] [address] Back Grinder: Bowen Lemon MD Troponin T NOT REPORTED Normal <0.03 [facility] Comment on above: Performed By: #### S ED, CRP, STROKE #### [facility] [address] [place] [address] Back Grinder: Bowen Lemon MD WBC Morphology NOT REPORTED Normal [facility] Comment on above: Performed By: #### S ED, CRP, STROKE #### [facility] [address] [place] [address] Back Grinder: Bowen Lemon MD TSH w/reflex to FT4on 2020 TSH Qn 1.04 m[IU]/L Normal 0.30-5.00 [facility] Comment on above: Performed By: #### T SHX, TROPI ####[facility] [address] [place] [address] Lab Director: Bowen Lemon MD TSH with ReflexOrdered By: Milton Osborn on 04-25-2021 TSH Qn 1.04 m[IU]/L [facility] Work Phone: [facility] [employer] Work Phone: Troponinon 04-25-2021 Troponin, High Sens 187 ng/L Critically high 0-22 [facility] Comment on above: Result Comment: High Sensitivity Troponin values cannot be compared with other Troponin methodologies. Patients with high levels of Biotin oral intake (i.e >5mg/day) may have falsely decreased Troponin levels. Samples collected within 8 hours of biotin intake may require additional information for diagnosis. Previous Alert Value Reported Performed By: #### T SHX, TROPI ####[facility].[address] [place] [address] Lab Director: Bowen Lemon MD Troponin Interp. NOT REPORTED Normal [facility] Comment on above: Performed By: #### T SHX, TROPI ####[facility] Campus[facility]eln.[address] [place], [place] [id number] Lab Director: Bowen Lemon MD Troponin T NOT REPORTED Normal <0.03 [facility] Comment on above: Performed By: #### T SHX, TROPI ####[facility] [address] [place] [address] Lab Director: Bowen Lemon MD Troponin, High Sens 175 ng/L Critically high 0-22 [facility] Comment on above: Result Comment: High Sensitivity Troponin values cannot be compared with other Troponin methodologies. Patients with high levels of Biotin oral intake (i.e >5mg/day) may have falsely decreased Troponin levels. Samples collected within 8 hours of biotin intake may require additional information for diagnosis. Performed By: #### T ROPI #### [facility] [address] [place] [address] Back Grinder: Bowen Lemon MD Troponin Interp. NOT REPORTED Normal [facility] Comment on above: Performed By: #### T ROPI #### [facility] [address] [place] [address] Back Grinder: Bowen Lemon MD Troponin T NOT REPORTED Normal <0.03 [facility] Comment on above: Performed By: #### T ROPI #### [facility] [address] [place] [address] Back Grinder: Bowen Lemon MD TroponinOrdered By: Jarek mar on 04-25-2021 Interpretation and review of laboratory results Abnormal [employer] Phone: Troponin Interp NOT REPORTED [employer] Phone: Troponin T NOT REPORTED <0.03 ng/mL [employer] Phone: Troponin, High Sensitivity 187 ng/L Critically high 0 - 22 ng/L [employer] Phone: Comment on above: High Sensitivity Troponin values cannot be compared with other Troponin methodologies. Patients with high levels of Biotin oral intake (i.e >5mg/day) may have falsely decreased Troponin levels. Samples collected within 8 hours of biotin intake may require additional information for diagnosis. Previous Alert Value Reported [employer] Phone: TroponinOrdered By: Anali orellana on 04-25-2021 Interpretation and review of laboratory results Abnormal [employer] Phone: Troponin Interp NOT REPORTED [employer] Phone: Troponin T NOT REPORTED <0.03 ng/mL [employer] Phone: Troponin, High Sensitivity 175 ng/L Critically high 0 - 22 ng/L [employer] Phone: Comment on above: High Sensitivity Troponin values cannot be compared with other Troponin methodologies. Patients with high levels of Biotin oral intake (i.e >5mg/day) may have falsely decreased Troponin levels. Samples collected within 8 hours of biotin intake may require additional information for diagnosis. [employer] Phone: Urinalysis Reflex to Culture Ordered By: Jarek Osborn on 04-25-2021 Bilirubin Urine Negative NEGATIVE [employer] Phone: Color, UA YELLOW YELLOW [employer] Phone: Glucose, Ur 1+ Abnormal NEGATIVE [employer] Phone: Interpretation and review of laboratory results Abnormal [employer] Phone: Ketones Ql (U) TRACE Abnormal NEGATIVE [employer] Phone: Leukocyte esterase Test strip Ql (U) Negative NEGATIVE [employer] Phone: Nitrite, Urine Negative NEGATIVE [employer] Phone: pH, UA 7.0 [employer] Phone: Protein, UA 2+ Abnormal NEGATIVE [employer] Phone: Specific Leota, UA 1.012 [employer] Phone: Turbidity UA CLEAR CLEAR [facility] [employer] Work Phone: Urinalysis Comments NOT REPORTED [facility] [employer] Work Phone: Urine Hgb TRACE Abnormal NEGATIVE [facility] [employer] Phone: Urobilinogen, Urine Normal Normal [facility] [employer] Phone: [facility] [employer] Work Phone: VITAMIN B12 & FOLATEOrdered By: Sabrina Aguiar on 04-25-2021 Folate 15.2 ng/mL >4.8 [facility] [employer] Phone: [facility] [employer] Phone: XR CHEST PORTABLEon 04-25-20 XR CHEST [...] Marino Abdi DO 04/24/21 Final result Normal [facility] XR SHOULDER LEFT (MIN 2 VIEW S)on [...] Marino Abdi DO 04/24/21 Final result Normal [facility] CALCIUM, IONIC (POC)Ordered By: Kranthi Ruvalcaba on 04-24-2021 POC Ionized Calcium 1.30 mmol/L 1.15 - 1.33 mmol/L [employer] Phone: CT CERVICAL SPINE WO CONTRAS TOrdered By: Kranthi Ruvalcaba on 04-24-2021 1. No acute abnormal ity of the cervical spine. 2. C5/C6 moderate, C6/C7 mild central canal stenosis secondary to encroachment by disc osteophyte complex. 3. C3/C4 mild bilateral, C5/C6 moderate bilateral, C6/C7 severe left and moderate right neural foraminal stenosis secondary to encroachment by disc osteophyte complex. [employer] Phone: EXAMINATION: CT OF T HE CERVICAL [...] of significant central canal stenosis/compromise identified. Multilevel vohh-fz-egevoxdt facet degenerative hypertrophy is seen. C3/C4 mild bilateral neural foraminal stenosis secondary to encroachment by disc osteophyte complex is seen. SOFT TISSUES: There is no prevertebral soft tissue swelling. [employer] Work Phone: Adam, Mhpn Incoming R adiant Results From [employer]/abeo - 04/24/2021 11:44 PM EDT EXAMINATION: CT [...] of significant central canal stenosis/compromise identified. Multilevel icmo-km-qbawlwyg facet degenerative hypertrophy is seen. C3/C4 mild [...] secondary to encroachment by disc osteophyte complex. [employer] Phone: [employer] Phone: CT HEAD WO CONTRASTOrdered B y: Kranthi Ruvalcaba on 04-24-2021 No evidence for acut e intracranial hemorrhage, territorial infarction or intracranial mass lesion. Chronic lacunar infarction right pacheco radiata. Mild chronic microangiopathic ischemic disease. Mild generalized volume loss. [employer] Phone: EXAMINATION: CT OF T HE HEAD [...] cells are unremarkable. No fracture is identified. [employer] Phone: Adam, [employer] Incoming R adiant Results From [employer] - 04/24/2021 10:25 PM EDT EXAMINATION: CT [...] microangiopathic ischemic disease. Mild generalized volume loss. [employer] Phone: [employer] Phone: CTA HEAD NECK W CONTRASTOrde red [...] brain with diffusion-weighted imaging for further evaluation [employer] Phone: EXAMINATION: CTA OF THE HEAD AND [...] radiata remote lacunar infarct is again seen. [employer] Phone: Adam, [employer] Incoming [employer]iant Results From [employer] - 04/24/2021 10:51 PM EDT EXAMINATION: CTA [...] brain with diffusion-weighted imaging for further evaluation [employer] Phone: [employer] Phone: Creatinine W/GFR Point of Ca reOrdered By: Kranthi Ruvalcaba on 04-24-2021 Creatinine [Mass/Vol] 0.78 mg/dL 0.51 - 1.19 mg/dL [employer] Phone: GFR Non- >60 >60 mL/min [employer] Phone: GFR/1.73 sq M.predicted MDRD (S/P/Bld) [Vol rate/Area] mL/min/{1.73_m2} >60 mL/min [employer] Phone: GFR/1.73 sq M.predicted MDRD (S/P/Bld) [Vol rate/Area] [employer] Phone: Comment on above: Average GFR for 60-6 9 years old: 85 mL/min/1.73sq m Chronic Kidney Disease: <60 mL/min/1.73sq m Kidney failure: <15 mL/min/1.73sq m eGFR calculated using average adult body mass. Additional eGFR calculator available at: http://www.[employer]/multiple_crcl_2012.htm ELECTROLYTES PLUSOrdered By: Kranthi Ruvalcaba on 04-24-2021 Anion gap [Moles/Vol] 10 mmol/L 7 - 16 mmol/L [employer] Phone: Chloride [Moles/Vol] 103 mmol/L 98 - 10 7 mmol/L [employer] Phone: CO2 [Moles/Vol] 26 mmol/L 22 - 30 mmol/L [employer] Phone: Potassium [Moles/Vol] 3.5 mmol/L 3.5 - 4.5 mmol/L [employer] Phone: Sodium [Moles/Vol] 138 mmol/L 138 - 146 mmol/L [employer] Phone: Hemoglobin and hematocrit, b loodOrdered By: Kranthi Ruvalcaba on 04-24-2021 Hematocrit (Bld) [Volume fraction] 46 % 41 - 53 % [employer] Phone: Hemoglobin (Bld) [Mass/Vol] 15.5 g/dL 13.5 - 17.5 g/dL [employer] Phone: Lactic Acid, POCOrdered By: Kranthi Ruvalcaba on 04-24-2021 POC Lactic Acid 2.14 mmol/L High 0.56 - 1.39 mmol/L [employer] Phone: No Panel InformationOrdered By: Kranthi Ruvalcaba on 04-24-2021 Interpretation and review of laboratory results Abnormal [employer] Phone: [employer] Phone: POCT GlucoseOrdered By: Tuan Ruvalcaba on 04-24-2021 Glucose [Mass/Vol] 140 mg/dL High 74 - 100 mg/dL [employer] Phone: POCT urea (BUN)Ordered By: Kamari Ruvalcaba on 04-24-2021 Urea nitrogen [Mass/Vol] 17 mg/dL 8 - 26 mg/dL [employer] Phone: Sedimentation RateOrdered By : Kranthi Ruvalcaba on 04-24-2021 Interpretation and review of laboratory results Abnormal [employer] Phone: Sed Rate 25 mm High 0 - 20 mm [employer] Phone: [employer] Phone: Venous Blood Gas, POCOrdered By: Kranthi Ruvalcaba on 04-24-2021 Irving Test NOT REPORTED [employer] Phone: FIO2 NOT REPORTED [employer] Phone: HCO3 (Bld) [Moles/Vol] 25.1 mmol/L 22.0 - 29.0 mmol/L [employer] Phone: Mode NOT REPORTED [employer] Phone: Negative Base Excess, Marquis NOT REPORTED [employer] Phone: O2 Device/Flow/% NOT REPORTED [employer] Phone: Oxygen saturation in Blood 81 % 60.0 - 85.0 % [employer] Phone: pCO2, Marquis 41.0 [employer] Phone: pH, Marquis 7.396 [employer] Phone: pO2, Marquis 45.1 [employer] Phone: POC pCO2 Temp NOT REPORTED mm Hg [employer] Phone: POC pH Temp NOT REPORTED [employer] Phone: POC pO2 Temp NOT REPORTED mm Hg [employer] Phone: Positive Base Excess, Marquis 0 [employer] Phone: Pt Temp NOT REPORTED [employer] Phone: Sample Site NOT REPORTED [employer] Phone: Total CO2, Venous NOT REPORTED 23.0 - 30.0 mmol/L [employer] Phone: XR CHEST PORTABLEOrdered By: Kranthi Ruvalcaba on 04-24-2021 Marginal inspiration , without evidence of acute cardiopulmonary disease [employer] Phone: EXAMINATION: ONE XRA Y VIEW OF [...] and vascular ectasia. Osseous structures appear intact. [employer] Phone: Adam, Mhpn Incoming R adiant Results From [employer] - 04/24/2021 11:43 PM EDT EXAMINATION: ONE [...] inspiration, without evidence of acute cardiopulmonary disease [employer] Phone: [employer] Phone: XR SHOULDER LEFT (MIN 2 VIEW S)Ordered By: Anali Oreilly on 04-24-2021 No evidence of an ac port gamble fracture involving the left shoulder [employer] Phone: EXAMINATION: TWO XRA Y VIEWS OF [...] is intact. Visualized left ribs appear normal. [employer] Phone: Adam, Mhpn Incoming R adiant Results From [employer]/abeo - 04/24/2021 11:45 PM EDT EXAMINATION: TWO [...] an acute fracture involving the left shoulder [employer] Phone: [employer] Phone: Sreekanth, Yaatedon 05-15 Send Out Report SEE NOTE Normal [facility] Comment on above: Result Comment: [...] (previously designated C677T) and c.1286A>C (previously designated [id number]) were detected. This genotype may be associated [...] has an effect on cardiovascular disease. The [employer] Practice Guidelines indicate [...] a contributing factor to hyperhomocysteinemia. Variants Tested: c.665C>T(p.Dgg731Cbi) and c.1286A>C(p.Tjo131Txj). (legacy names C677T and P6263O, respectively). Clinical Sensitivity: Undefined; hyperhomocysteinemia is caused by genetic, physiologic and environmental factors. MTHFR variants are only one contributing factor. Methodology: Polymerase chain reaction (PCR) and fluorescence monitoring. Analytical Sensitivity AND Specificity: 99 percent. Limitations: Only two MTHFR gene variants (c.665C>T and c.1286A>C) are tested. Diagnostic errors can occur due to rare sequence variations. Test developed and characteristics determined by [facility]. See Compliance Statement C: [employer]/ Performed by [facility], [address] [place] [address] [phone] www.[email or web address], Kristopher Kerr MD, Lab. Director Performed By: #### C RP, TSHX ####[place] [address] [facility] Director: Shreyas Crain DO#### HOCYS, GLYHGB, B12FOL, FA7, FA8, AT3A ####[address] [address] Lab Director: Bowen Lemon MD#### ALPLA, AAPCR, APRTSF, AB2GLY, APROTC, ADYSF, AAPDSR ####[facility] [address] [place] [address] [phone] Lab Director: Kristopher Kerr MD#### LUPPRO ####[facility] Jen5193 [place] [address] [facility] Director: Shreyas Crain DOMercy [address] [address] Lab Director: Bowen Lemon MD#### MISCR ####[address] [address] Lab Director: RADHA Delgado [address] [address] Lab Director: Kristopher Kerr MD Antithrombin III Hafsa 05-13 Antithrombin III Act 78 % Low 83-122 [facility] Comment on above: Result Comment: Patients receiving Hirudin may have a falsely decreased Antitrombin III Activity. Performed By: #### C RP, TSHX ####[facility] Uuj7853 [place] [address] Lab Director: Shreyas Crain DO#### HOCYS, GLYHGB, B12FOL, FA7, FA8, AT3A ####[address] [address] Lab Director: Bowen Lemon MD#### ALPLA, AAPCR, APRTSF, AB2GLY, APROTC, ADYSF, AAPDSR ####[facility] [address] [place] [address] Lab Director: Kristopher Kerr MD#### LUPPRO ####[facility] Nht0982 [place] [address] Lab Director: Shreyas Crain DOMercy [address] [address] Lab Director: Bowen Lemon MD#### MISCR ####[address] [address] Lab Director: Bowen Lemon MDARUMarjorie Wfowzgpxmsmb[address] [place] [address] Lab Director: Kristopher Kerr MD Factor VII Activityon 2019 Factor VII Activity 253 % High 50-150 [facility] Comment on above: Performed By: #### C RP, TSHX ####[facility] Yfr9067 [place], [place] [phone] Director: Shreyas Crain DO#### HOCYS, GLYHGB, B12FOL, FA7, FA8, AT3A ####[address] [address] Lab Director: Bowen Lemon MD#### ALPLA, AAPCR, APRTSF, AB2GLY, APROTC, ADYSF, AAPDSR ####[facility] F[address]wt[address] [place] [address] [phone] Lab Director: Kristopher Kerr MD#### LUPPRO ####[address] [phone] Director: Shreyas Crain DOMercy [address] [address] Lab Director: Bowen Lemon MD#### MISCR ####[address] [address] Lab Director: RADHA Delgado [address] [phone] Lab Director: Kristopher Kerr MD Factor VIII Activityon 05-13 Factor VIII Activity 73 % Normal 50-150 [facility] Comment on above: Performed By: #### C RP, TSHX ####[address] [phone] Director: Shreyas Crain DO#### HOCYS, GLYHGB, B12FOL, FA7, FA8, AT3A ####[address] [address] Lab Director: Bowen Lemon MD#### ALPLA, AAPCR, APRTSF, AB2GLY, APROTC, ADYSF, AAPDSR ####[facility] [address] [place] [address] [phone] Lab Director: Kristopher Kerr MD#### LUPPRO ####[address] [phone] Director: Shreyas Crain DOMercy [address] [address] Lab Director: Bowen Lemon MD#### MISCR ####[address] [address] Lab Director: RADHA Delgado [address] [phone] Lab Director: Kristopher Kerr MD Lupus Anticoagulanton 2019 Dilute Akil Viper Negative Normal NLUP [facility] Comment on above: Performed By: #### C RP, TSHX ####[facility] Xgs8738 [place], [place] [phone] Director: Shreyas Crain DO#### HOCYS, GLYHGB, B12FOL, FA7, FA8, AT3A ####[address] [address] Lab Director: Bowen Lemon MD#### ALPLA, AAPCR, APRTSF, AB2GLY, APROTC, ADYSF, AAPDSR ####[facility] [address] [place] [address] [phone] Lab Director: Kristopher Kerr MD#### LUPPRO ####[facility] Rby0707 [place], [place] [phone] Director: Shreyas Crain DOMercy [address] [address] Lab Director: Bowen Lemon MD#### MISCR ####[address] [address] Lab Director: RADHA Delgado [address] [place] [address] [phone] Lab Director: Kristopher Kerr MD Hrux-Vukj-Qoovbotg 07-25-202 0 Phosphatidylser, IgA 3 U/mL Normal 0-19 [facility] Comment on above: Result Comment: (NOT E) Performed By: [facility] [address] [place] [address] Engineering Technical Analyst: Kristopher Kerr MD, MS Performed By: #### C RP, TSHX ####[facility] Bsk2336 [place], [place] [phone] Director: Shreyas Crain DO#### HOCYS, GLYHGB, B12FOL, FA7, FA8, AT3A ####[address] [address] Lab Director: Bowen Lemon MD#### ALPLA, AAPCR, APRTSF, AB2GLY, APROTC, ADYSF, AAPDSR ####[facility] B[address] [place] [address] [phone] Lab Director: Kristopher Kerr MD#### LUPPRO ####[facility] Mjb0330 [place], [place] [phone] Director: Shreyas Crain DOMercy [address] [address] Lab Director: Bowen Lemon MD#### MISCR ####[address] [address] Lab Director: RADHA Delgado [address] [address] Lab Director: Kristopher Kerr MD Phosphatidylser, IgG 5 U/mL Normal 0-10 [facility] Comment on above: Result Comment: [...] tests. Performed By: #### C RP, TSHX ####[facility] Tml4840 [facility] [place] [address] Lab Director: Shreyas Crain DO#### HOCYS, GLYHGB, B12FOL, FA7, FA8, AT3A ####[address] [address] Lab Director: Bowen Lemon MD#### ALPLA, AAPCR, APRTSF, AB2GLY, APROTC, ADYSF, AAPDSR ####[facility] [address] [place] [address] [phone] Lab Director: Kristopher Kerr MD#### LUPPRO ####[facility] Rha1838 [facility] [place] [address] Lab Director: Shreyas Crain DOMercy [address] [address] Lab Director: Bowen Lemon MD#### MISCR ####[address] [address] Lab Director: RADHA Delgado [address] [place] [address] Lab Director: Kristopher Kerr MD Phosphatidylser, IgM 6 U/mL Normal 0-24 [facility] Comment on above: Result Comment: [...] tests. Performed By: #### C RP, TSHX ####[facility] Lcl2138 [place] [address] Lab Director: Shreyas Crain DO#### HOCYS, GLYHGB, B12FOL, FA7, FA8, AT3A ####[address] [address] Lab Director: Bowen Lemon MD#### ALPLA, AAPCR, APRTSF, AB2GLY, APROTC, ADYSF, AAPDSR ####[facility] Tb[address]lhey[address] [place] [address] [phone] Lab Director: Kristopher Kerr MD#### LUPPRO ####[facility] [address] [place] [address] Lab Director: Shreyas Crain DOMercy [address] [address] Lab Director: Bowen Lemon MD#### MISCR ####[address] [address] Lab Director: RADHA Delgado D[address]rs[address] [place] [address] Lab Director: Kristopher Kerr MD Fibrinogen Panelon 0 Fibrinogen 394 mg/dL Normal 150-430 [facility] Comment on above: Performed By: #### C RP, TSHX ####[facility] Cmh5194 [place] [address] Lab Director: Shreyas Crain DO#### HOCYS, GLYHGB, B12FOL, FA7, FA8, AT3A ####[address] [address] Lab Director: Bowen Lemon MD#### ALPLA, AAPCR, APRTSF, AB2GLY, APROTC, ADYSF, AAPDSR ####[facility] [address] [place] [address] Lab Director: Kristopher Kerr MD#### LUPPRO ####[facility] Tiy4478 [facility].[place], [place] [phone] Director: Shreyas Crain DOMercy [address] [phone] Director: Bowen Lemon MD#### MISCR ####[address] [phone] Director: RADHA Delgado Q[address]fuj[address] [place] [address] Lab Director: Kristopher Kerr MD Fibrinogen Antigen 347 mg/dL Normal 149-353 [facility] Comment on above: Performed By: #### C RP, TSHX ####[facility] Xpa8107 [facility].[place], [place] [phone] Director: Shreyas Crain DO#### HOCYS, GLYHGB, B12FOL, FA7, FA8, AT3A ####[address] [address] Lab Director: Bowen Lemon MD#### ALPLA, AAPCR, APRTSF, AB2GLY, APROTC, ADYSF, AAPDSR ####[facility] Hbjcr[address]wnkna330 [place] [address] Lab Director: Kristopher Kerr MD#### LUPPRO ####[facility] Gbx8771 [place] [address] Lab Director: Shreyas Crain DOMercy [address] [address] Lab Director: Bowen Lemon MD#### MISCR ####[address] [address] Lab Director: RADHA Delgado [address] [phone] Lab Director: Kristopher Kerr MD Fibrinogen Ratio 0.88 ratio Normal 0.59-1.23 [facility] Comment on above: Result Comment: (NOT E) INTERPRETIVE INFORMATION: Fibrinogen Antigen/Functional Ratio A ratio of greater than 1.23 is suggestive of a dysfibrogenemia. Performed by [facility], [address] [place] [address] [phone] www.[email or web address], Kristopher Kerr MD, Lab. Director Performed By: #### C RP, TSHX ####[facility] Apa4250 [place] [address] Lab Director: Shreyas Crain DO#### HOCYS, GLYHGB, B12FOL, FA7, FA8, AT3A ####[address] [address] Lab Director: Bowen Lemon MD#### ALPLA, AAPCR, APRTSF, AB2GLY, APROTC, ADYSF, AAPDSR ####[facility] [address] [place] [address] [phone] Lab Director: Kristopher Kerr MD#### LUPPRO ####[facility] Uka0453 [place], [place] [phone] Director: Shreyas Crain DOMercy [address] [address] Lab Director: Bowen Lemon MD#### MISCR ####[address] [address] Lab Director: RADHA Delgado [address] [address] [facility] Director: Kristopher Kerr MD Protein C Antigenicon 2019 Protein [Mass/Vol] g/dL Normal 63-153 [facility] Comment on above: Result Comment: (NOT E) INTERPRETIVE INFORMATION: Protein C, Total Antigen Patients on warfarin may have decreased protein C values. Patients should be off warfarin therapy for two weeks for accurate measurement of protein C. Access complete set of age- and/or gender-specific reference intervals for this test in the [facility] Test Directory ([place]). Performed by [facility], [address] [place] [address] [phone] www.[email or web address], Kristopher Kerr MD, Lab. Director Performed By: #### C RP, TSHX ####[facility] Pfs2009 [place] [address] Lab Director: Shreyas Crain DO#### HOCYS, GLYHGB, B12FOL, FA7, FA8, AT3A ####[address] [address] Lab Director: Bowen Lemon MD#### ALPLA, AAPCR, APRTSF, AB2GLY, APROTC, ADYSF, AAPDSR ####[facility] [address] [place] [address] [phone] Lab Director: Kristopher Kerr MD#### LUPPRO ####[facility] Owv8400 [place] [address] lab Director: Shreyas Crain DOMercy [address] [address] lab Director: Bowen Lemon MD#### MISCR ####[address] [address] [facility] Director: CHASE Delgado[address] [address] [facility] Director: Kristopher Kerr MD ACT Protein C Resiston 05-10 Protein [Mass/Vol] 3.80 g/dL Normal >=2.00 [facility] Comment on above: Result Comment: (NOT E) TEST INTERPRETATION: APC Resistance Profile Ratios less than 2.00 suggest APC resistance. This method uses factor V deficient plasma; therefore, APC resistance due to a nonfactor V mutation will not be detected. Extreme factor V deficiency may cause abnormal ratio. Performed by [facility], [address] [place] [address] [phone] www.[email or web address], Kristopher Kerr MD, Lab. Director Performed By: #### C RP, TSHX #### [facility] [address] [place] [address] Back Grinder: Shreyas Crain DO #### HOCYS, GLYHGB, B12FOL, FA7, FA8, AT3A #### [address] [address] Back Grinder: Bowen Lemon MD #### ALPLA, AAPCR, APRTSF, AB2GLY, APROTC, ADYSF, AAPDSR #### [address] [phone] Back Grinder: Kristopher Kerr MD #### LUPPRO #### [facility] [address] [place] [address] Back Grinder: Shreyas Crain DO [address] [address] Back Grinder: Bowen Lemon MD #### MISCR #### [address] [address] Back Grinder: Bowen Lemon MD [address] [address] Back Grinder: Kristopher Kerr MD Vfyu-4-uwjvjhdfv Abon 2019 B2 Glycoprot I, IgG 2 SGU Normal 0-20 [facility] Comment on above: Performed By: #### C RP, TSHX ####[facility] Jhf0143 [place] [address] Lab Director: Shreyas Crain DO#### HOCYS, GLYHGB, B12FOL, FA7, FA8, AT3A ####[facility] Npyacphaslkc3442 [place] [address] Lab Director: Bowen Lemon MD#### ALPLA, AAPCR, APRTSF, AB2GLY, APROTC, ADYSF, AAPDSR ####[facility] S[address] [place] [address] [phone] Lab Director: Kristopher Kerr MD#### LUPPRO ####[facility] Mss0212 [place] [address] Lab Director: Shreyas Crain DOMercy Rehotvasxthe2816 [place] [address] Lab Director: Bowen Lemon MD#### MISCR ####[facility] [address] [place] [address] Lab Director: RADHA Delgado E[address] [place] [address] Lab Director: Kristopher Kerr MD B2 Glycoprot I, IgM 1 SMU Normal 0-20 [facility] Comment on above: Result Comment: (NOT E) INTERPRETIVE INFORMATION: G0Nelmqmdgpyxq I, IgG and IgM Antibody The persistent [...] other criteria phospholipid antibody tests. Performed By: [facility] [address] [place] [address] Engineering Technical Analyst: Kristopher Kerr MD, MS Performed By: #### C RP, TSHX ####[facility] [address] [place] [address] Lab Director: Shreyas Crain DO#### HOCYS, GLYHGB, B12FOL, FA7, FA8, AT3A ####[facility] [address] [place] [address] Lab Director: Bowen Lemon MD#### ALPLA, AAPCR, APRTSF, AB2GLY, APROTC, ADYSF, AAPDSR ####[facility] [address] [place] [address] [phone] Lab Director: Kristopher Kerr MD#### LUPPRO ####[facility] Jnl0598 [place] [address] Lab Director: Shreyas Crain DOMercy [address] [address] Lab Director: Bowen Lemon MD#### MISCR ####[address] [address] Lab Director: RADHA Delgado [address] [address] Lab Director: Kristopher Kerr MD Lipoprotein (a)on 05-10-2020 Lipoprotein a [Mass/Vol] 72 mg/dL High <=29 [facility] Comment on above: Result Comment: (NOT E) Performed By: [facility] [address] [place] [address] Engineering Technical Analyst: Kristopher Kerr MD, MS Performed By: #### C RP, TSHX #### [facility] [address] [place] [address] Back Grinder: Shreyas Crain DO #### HOCYS, GLYHGB, B12FOL, FA7, FA8, AT3A #### [address] [phone] Back Grinder: Bowen Lemon MD #### ALPLA, AAPCR, APRTSF, AB2GLY, APROTC, ADYSF, AAPDSR #### [facility] [place] [address] [place] [address] [phone] Back Grinder: Kristopher Kerr MD #### LUPPRO #### [facility] [address] [place] [address] Back Grinder: Shreyas Crain DO [address] [phone] Back Grinder: Bowen Lemon MD #### MISCR #### [address] [phone] Back Grinder: Bowen Lemon MD [address] [phone] Back Grinder: Kristopher Kerr MD Protein S Ag, Freeon 020 GFR/1.73 sq M predicted among non-blacks MDRD (S/P/Bld) [Vol rate/Area] 109 % Normal 74-147 [facility] Comment on above: Result Comment: [...] reference intervals for this test in the [facility] Test Directory ([place]). Performed by [facility], [address] [place] [address] [phone] www.[email or web address], Kristopher Kerr MD, Lab. Director Performed By: #### C RP, TSHX #### [facility] [address] [place] [address] Back Grinder: Shreyas Crain DO #### HOCYS, GLYHGB, B12FOL, FA7, FA8, AT3A #### [address] [phone] Back Grinder: Bowen Lemon MD #### ALPLA, AAPCR, APRTSF, AB2GLY, APROTC, ADYSF, AAPDSR #### [address] [phone] Back Grinder: Kristopher Kerr MD #### LUPPRO #### [facility] [address] [place] [address] Back Grinder: Shreyas Crain DO [address] [phone] Back Grinder: Bowen Lemon MD #### MISCR #### [address] [address] Back Grinder: Bowen Lemon MD [address] [address] Back Grinder: Kristopher Kerr MD Lupus Anticoagulanton 2019 Antiphospholipid IgA 2.2 APU Normal <12 [facility] Comment on above: Result Comment: Reference Range: 12 - 15 Equivocal >15 Positive Performed By: #### C RP, TSHX ####[facility] Hjv2466 [place] [address] Lab Director: Shreyas Crain DO#### HOCYS, GLYHGB, B12FOL, FA7, FA8, AT3A ####[address] [address] Lab Director: Bowen Lemon MD#### ALPLA, AAPCR, APRTSF, AB2GLY, APROTC, ADYSF, AAPDSR ####[facility] [address] [place] [address] [phone] Lab Director: Kristopher Kerr MD#### LUPPRO ####[facility] Jet7184 [place], [place] [phone] Director: Shreyas Crain DOMercy [address] [address] Lab Director: Bowen Lemon MD#### MISCR ####[address] [address] Lab Director: RADHA Delgado [address] [place] [address] [phone] Lab Director: Kristopher Kerr MD Antiphospholipid IgG 3.5 GPU Normal <20 [facility] Comment on above: Result Comment: Reference Range: 20.0 - 29.9 Low Positive 30.0 - 79.9 Moderate Positive >79.9 High Positive Performed By: #### C RP, TSHX ####[facility] Kmn4091 [place] [address] Lab Director: Shreyas Crain DO#### HOCYS, GLYHGB, B12FOL, FA7, FA8, AT3A ####[facility] Kzjgxchtymca3637 [place] [address] Lab Director: Bowen Lemon MD#### ALPLA, AAPCR, APRTSF, AB2GLY, APROTC, ADYSF, AAPDSR ####[facility] [address]pr227 [place] [address] Lab Director: Kristopher Kerr MD#### LUPPRO ####[facility] Awx8813 [place] [address] Lab Director: Shreyas Crain DOMercy [address] [address] Lab Director: Bowen Lemon MD#### MISCR ####[address] [address] Lab Director: RADHA Delgado [address] [phone] Lab Director: Kristopher Kerr MD Antiphospholipid IgM 5.2 MPU Normal <20 [facility] Comment on above: Result Comment: Reference Range: 20.0 - 29.9 Low Positive 30.0 - 79.9 Moderate Positive >79.9 High Positive Performed By: #### C RP, TSHX ####[facility] [address] [place] [address] Lab Director: Shreyas Crain DO#### HOCYS, GLYHGB, B12FOL, FA7, FA8, AT3A ####[address] [address] Lab Director: Bowen Lemon MD#### ALPLA, AAPCR, APRTSF, AB2GLY, APROTC, ADYSF, AAPDSR ####[facility] A[address]kmjr[address] [place], [place] [phone] Lab Director: Kristopher Kerr MD#### LUPPRO ####[facility] [address] [place] [address] Lab Director: Shreyas Crain DOMercy [address] [address] Lab Director: Bowen Lemon MD#### MISCR ####[facility] Thkouqbagxby6965 [place] [address] Lab Director: RADHA Delgado [address] [place] [address] [phone] Lab Director: Kristopher Kerr MD Miscel, Refrigeratedon 05-09 Test Name THROMBOTIC RISK PANE L TO [facility] TEST [id number] Normal [facility] Comment on above: Performed By: #### C RP, TSHX ####[facility] Uze2930 [place] [address] Lab Director: Shreyas Crain DO#### HOCYS, GLYHGB, B12FOL, FA7, FA8, AT3A ####[facility] [address] [place] [address] Lab Director: Bowen Lemon MD#### ALPLA, AAPCR, APRTSF, AB2GLY, APROTC, ADYSF, AAPDSR ####[facility] [address] [place] [address] [phone] Lab Director: Kristopher Kerr MD#### LUPPRO ####[facility] Grr2446 [place], [place] [phone] Director: Shreyas Crain DOMercy [address] [place] [address] Lab Director: Bowen Lemon MD#### MISCR ####[facility] [address] [place] [address] [phone] Director: RADHA Delgado [address] [place] [address] [phone] Lab Director: Kristopher Kerr MD B12/Folate Panelon 0 Cobalamin (Vitamin B12) [Mass/Vol] 840 pg/mL Normal 232-1245 [facility] Comment on above: Performed By: #### C RP, TSHX #### [facility] [address] [place] [address] Back Grinder: Shreyas Crain DO #### HOCYS, GLYHGB, B12FOL, FA7, FA8, AT3A #### [address] [address] Back Grinder: Bowen Lemon MD #### ALPLA, AAPCR, APRTSF, AB2GLY, APROTC, ADYSF, AAPDSR #### [facility] [address] [place] [address] Back Grinder: Kristopher Kerr MD #### LUPPRO #### [facility] [address] [place] [address] Back Grinder: Shreyas Crain DO [address] [address] Back Grinder: Bowen Lemon MD #### MISCR #### [address] [address] Back Grinder: Bowen Lemon MD [facility] [address] [place], [place] [phone] Back Grinder: Kristopher Kerr MD Folic Acid 5.3 ng/mL Normal >4.8 [facility] Comment on above: Performed By: #### C RP, TSHX #### [facility] [address] [place] [address] Back Grinder: Shreyas Crain DO #### HOCYS, GLYHGB, B12FOL, FA7, FA8, AT3A #### [facility] [address] [place] [address] Back Grinder: Bowen Lemon MD #### ALPLA, AAPCR, APRTSF, AB2GLY, APROTC, ADYSF, AAPDSR #### [facility] [address] [place] [address] Back Grinder: Kristopher Kerr MD #### LUPPRO #### [facility] [address] [place] [address] Back Grinder: Shreyas Crain DO [address] [address] Back Grinder: Bowen Lemon MD #### MISCR #### [address] [address] Back Grinder: Bowen Lemon MD [facility] [address] [place] [address] Back Grinder: Kristopher Kerr MD C-Reactive Proteinon 020 CRP [Mass/Vol] 2.7 mg/L Normal 0.0-5.0 [facility] Comment on above: Performed By: #### C RP, TSHX #### [facility] [address] [place] [address] Back Grinder: Shreyas Crain DO #### HOCYS, GLYHGB, B12FOL, FA7, FA8, AT3A #### [address] [address] Back Grinder: Bowen Lemon MD #### ALPLA, AAPCR, APRTSF, AB2GLY, APROTC, ADYSF, AAPDSR #### [facility] [address] [place] [address] Back Grinder: Kristopher Kerr MD #### LUPPRO #### [facility] [place] [address] Back Grinder: Shreyas Crain DO [address] [address] Back Grinder: Bowen Lemon MD #### MISCR #### [address] [address] Back Grinder: Bowen Lemon MD [facility] [address] [place] [address] Back Grinder: Kristopher Kerr MD CRP [Mass/Vol] 2.7 mg/L 0 - 5 mg/L [place], [place] DNA Testingon 05-08-2020 DNA Testing (NOTE) Specimen(s) Received: Peripheral blood, FVLI Clinical Information: CVA RESULTS: The Factor V Leiden [id number] Mutation analysis for this patient [facility] [place]. See separate report. Electronically Signed Out Elba Rodriguez M.D. [facility]ST[facility] MOLECULAR PATHOLOGY LABORATORY [address] [place] [phone] FACTOR V LEIDEN MUTATION ANALYSIS REPORT [place] [facility] Alpesh Dc MD, Elba Rodriguez MD [facility] Comment on above: Performed By: #### C RP, TSHX #### [facility] [address] [place] [address] Back Grinder: Shreyas Crain DO #### HOCYS, GLYHGB, B12FOL, FA7, FA8, AT3A #### [address] [address] Back Grinder: Bowen Lemon MD #### ALPLA, AAPCR, APRTSF, AB2GLY, APROTC, ADYSF, AAPDSR #### [facility] [address] [place] [address] Back Grinder: Kristopher Kerr MD #### LUPPRO #### [facility] [place] [address] Back Grinder: Shreyas Crain DO [address] [address] Back Grinder: Bowen Lemon MD #### MISCR #### [address] [address] Back Grinder: Bowen Lemon MD [address] [address] Back Grinder: Kristopher Kerr MD DNA Testing (NOTE) Specimen(s) Received: Peripheral blood Clinical Information: CVA RESULTS: The MTHFR Mutation variants c.665C>T and c.1286A>C analysis for this patient was sent to [facility]. See separate report. Electronically Signed Out Elba Rodriguez M.D. [facility]ST[facility] MOLECULAR PATHOLOGY LABORATORY [address] [place] [phone] MTHFR GENE MUTATION ANALYSIS REPORT [place] [facility] Alpesh Dc MD, Elba Rodriguez MD [facility] Comment on above: Performed By: #### C RP, TSHX #### [facility] [address] [place] [address] Back Grinder: Shreyas Crain DO #### HOCYS, GLYHGB, B12FOL, FA7, FA8, AT3A #### [address] [address] Back Grinder: Bowen Lemon MD #### ALPLA, AAPCR, APRTSF, AB2GLY, APROTC, ADYSF, AAPDSR #### [address] [address] Back Grinder: Kristopher Kerr MD #### LUPPRO #### [facility] [place] [address] Back Grinder: Shreyas Crain DO [address] [phone] Back Grinder: Bowen Lemon MD #### MISCR #### [address] [address] Back Grinder: Bowen Lemon MD [address] [phone] Back Grinder: Kristopher Kerr MD DNA Testing (NOTE) Specimen(s) Received: Peripheral blood, PTI Clinical Information: CVA RESULTS: The Prothrombin (F2) c.*97G>A ([id number]) Pathogenic Variant analysis for this patient was sent to [facility]. See separate report. Electronically Signed Out Elba Rodriguez M.D. [facility] MO[facility]ULAR [facility]OLOG[facility] LAB[facility]ATORY [address] [place] [phone] FACTOR II (PROTHROMBIN) MUTATION ANALYSIS REPORT [place] [facility] Alpesh Dc MD, Elba Rodriguez MD [facility] Comment on above: Performed By: #### C RP, TSHX #### [facility] [address] [place] [address] Back Grinder: Shreyas Crain DO #### HOCYS, GLYHGB, B12FOL, FA7, FA8, AT3A #### [address] [address] Back Grinder: Bowen Lemon MD #### ALPLA, AAPCR, APRTSF, AB2GLY, APROTC, ADYSF, AAPDSR #### [address] [phone] Back Grinder: Kristopher Kerr MD #### LUPPRO #### [facility] [address] [place] [address] Back Grinder: Shreyas Crain DO [address] [phone] Back Grinder: Bowen Lemon MD #### MISCR #### [address] [address] Back Grinder: Bowen Lemon MD [address] [phone] Back Grinder: Kristopher Kerr MD ECHO Complete 2D W Doppler W Coloron 05-08-2020 [facility] Transthoracic Echocardiography Report (TTE) Patient Name REHAN Date of Study 05/08/2020 YOEL Bryant Date of 1955 Gender Male Age 64 year(s) Race Room Number Height: 72 inch, 182.88 cm Corporate ID [id number] Weight: 220 pounds, 99.8 kg # Patient Acct [id number] BSA: 2.22 m^2 BMI: 29.84 # kg/m^2 MR # [id number] Legal Billing Specialist Yoselyn Pedro Interpreting Physician Kvng Hanna Fellow Referring Nurse Practitioner Interpreting Referring Physician Andreia Ramos Fellow Type of Study TTE procedure:2D Echocardiogram, M-Mode, Doppler, Color Doppler, Bubble Study. Procedure Date Date: 05/08/2020 Start: 10:11 AM Study Location: [facility] Technical Quality: Fair visualization Indications:CVA and Aortic [...] No significant pericardial effusion is seen. Signature Electronically signed by Kvng Hanna([facility] physician) on 05/08/2020 11:32 AM FINDINGS Left Atrium Left atrial dilatation. Negative [...] Lateral Wall E' velocity:0.05 m/s [facility], [place] Adam, Mhpn Incoming C ardio Results From [facility]/Ge - 05/08/2020 11:32 AM EDT [facility] Transthoracic Echocardiography Report (TTE) Patient Name ICJURGEN Date of Study 05/08/2020 YOEL Bryant Date of 1955 Gender Male Age 64 year(s) Race Room Number Height: 72 inch, 182.88 cm Corporate ID [id number] Weight: 220 pounds, 99.8 kg # Patient Acct [id number] BSA: 2.22 m^2 BMI: 29.84 # kg/m^2 MR # [id number] Legal Billing Specialist Yoselyn Pedro Interpreting Physician Kvng Hanna Fellow Referring Nurse Practitioner Interpreting Referring Physician Andreia Ramos Fellow Type of Study TTE procedure:2D Echocardiogram, M-Mode, Doppler, Color Doppler, Bubble Study. Procedure Date Date: 05/08/2020 Start: 10:11 AM Study Location: [facility] Technical Quality: Fair visualization Indications:CVA and Aortic [...] effusion is seen. Signature - - - Electronically signed by Kvng Hanna([facility] physician) on 05/08/2020 11:32 AM - FINDINGS Left Atrium Left atrial dilatation. [...] Lateral Wall E' velocity:0.05 m/s [facility], [place] Hemoglobin A1Con 05-08-2020 HbA1c (Bld) [Mass fraction] 8.6 % High 4.0-6.0 [facility] Comment on above: Performed By: #### C RP, TSHX #### [facility] [address] [place] [address] Back Grinder: Shreyas Crain DO #### HOCYS, GLYHGB, B12FOL, FA7, FA8, AT3A #### [facility] [address] [place] [address] Back Grinder: Bowen Lemon MD #### ALPLA, AAPCR, APRTSF, AB2GLY, APROTC, ADYSF, AAPDSR #### [facility] [address] [place], [place] [phone] Back Grinder: Kristopher Kerr MD #### LUPPRO #### [facility] [address] [place] [address] Back Grinder: Shreyas Crain DO [address] [address] Back Grinder: Bowen Lemon MD #### MISCR #### [address] [address] Back Grinder: Bowen Lemon MD [facility] [address] [place] [address] Back Grinder: Kristopher Kerr MD HbA1c (Bld) [Mass fraction] 200 mg/dL Normal [facility] Comment on above: Result Comment: The ADA and AACC recommend providing the estimated average glucose result to permit better patient understanding of their HBA1c result. Performed By: #### C RP, TSHX #### [facility] [address] [place] [address] Back Grinder: Shreyas Crain DO #### HOCYS, GLYHGB, B12FOL, FA7, FA8, AT3A #### [facility] [address] [place] [address] Back Grinder: Bowen Lemon MD #### ALPLA, AAPCR, APRTSF, AB2GLY, APROTC, ADYSF, AAPDSR #### [facility] [address] [place], [place] [id number] Back Grinder: Kristopher Kerr MD #### LUPPRO #### [facility] [address] [place] [address] Back Grinder: Shreyas Crain DO [address] [address] Back Grinder: Bowen Lemon MD #### MISCR #### [address] [address] Back Grinder: Bowen Lemon MD [address] [phone] Back Grinder: Kristopher Kerr MD Glucose [Mass/Vol] 200 mg/dL [place], [place] Comment on above: The ADA and AACC rec ommend providing the estimated average glucose result to permit better patient understanding of their HBA1c result. HbA1c (Bld) [Mass fraction] 8.6 % High 4 - 6 % [place], [place] Interpretation and review of laboratory results Abnormal [place], [place] Homocysteineon 05-08-2020 Homocysteine 10.0 umol/L Normal <15.0 [facility] Comment on above: Performed By: #### C RP, TSHX #### [facility] [address] [place] [address] Back Grinder: Shreyas Crain DO #### HOCYS, GLYHGB, B12FOL, FA7, FA8, AT3A #### [address] [address] Back Grinder: Bowen Lemon MD #### ALPLA, AAPCR, APRTSF, AB2GLY, APROTC, ADYSF, AAPDSR #### [facility] [address] [place] [address] Back Grinder: Kristopher Kerr MD #### LUPPRO #### [facility] [address] [place] [address] Back Grinder: Shreyas Crain DO [facility] [address] [place] [address] Back Grinder: Bowen Lemon MD #### MISCR #### [facility] [address] [place] [address] Back Grinder: Bowen Lemon MD [facility] [address] [place], [place] [phone] Back Grinder: Kristopher Kerr MD Homocysteine, Serumon 2019 Homocysteine 10 umol/L <15.0 [place], [place] Lupus Anticoagulanton 2019 aPTT Coag (Bld) [Time] 31.2 s Normal 24.0-36.0 [facility] Comment on above: Result Comment: IV Heparin Therapy Range: 62.0-94.0 Performed By: #### C RP, TSHX ####[facility] [address] [place] [address] Lab Director: Shreyas Crain DO#### HOCYS, GLYHGB, B12FOL, FA7, FA8, AT3A ####[address] [address] Lab Director: Bowen Lemon MD#### ALPLA, AAPCR, APRTSF, AB2GLY, APROTC, ADYSF, AAPDSR ####[facility] [address] [place], [place] [phone] Lab Director: Kristopher Kerr MD#### LUPPRO ####[facility] [address] [place] [address] Lab Director: Shreyas Crain DOMercy [address] [place] [address] Lab Director: Bowen Lemon MD#### MISCR ####[address] [address] Lab Director: RADHA Delgado [address] [phone] Lab Director: Kristopher Kerr MD INR Coag (PPP) [Relative time] 1.0 {INR} Normal [facility] Comment on above: Result Comment: Non-therapeutic Range: INR = 0.9-1.2 Therapeutic Range: Moderate Anticoagulant Intensity: INR = 2.0-3.0 High Anticoagulant Intensity: INR = 2.5-3.5 Performed By: #### C RP, TSHX ####[facility] [address] [place] [address] Lab Director: Shreyas Crain DO#### HOCYS, GLYHGB, B12FOL, FA7, FA8, AT3A ####[address] [address] Lab Director: Bowen Lemno MD#### ALPLA, AAPCR, APRTSF, AB2GLY, APROTC, ADYSF, AAPDSR ####[facility] [address] [place] [id number] Lab Director: Kristopher Kerr MD#### LUPPRO ####[facility] [address] [place] [address] Lab Director: Shreyas Crain DOMercy [address] [address] Lab Director: Bowen Lemon MD#### MISCR ####[address] [address] Lab Director: RADHA Delgado [address] [phone] Lab Director: Kristopher Kerr MD PT Coag (PPP) [Time] 12.7 s Normal 11.8-14.6 [facility] Comment on above: Performed By: #### C RP, TSHX ####[facility] [address], [place] [phone] Director: Shreyas Crain DO#### HOCYS, GLYHGB, B12FOL, FA7, FA8, AT3A ####[facility] [address] [place] [address] Lab Director: Bowen Lemon MD#### ALPLA, AAPCR, APRTSF, AB2GLY, APROTC, ADYSF, AAPDSR ####[facility] [address] [place] [id number] Lab Director: Kristopher Kerr MD#### LUPPRO ####[facility] [address] [place], [place] [address]manny [place], [place] [phone] Director: Shreyas Crain DOMercy [address] [address] Lab Director: Bowen Lemon MD#### MISCR ####[address] [address] Lab Director: RADHA Delgado [address] [place] [phone] Lab Director: Kristopher Kerr MD Lupus Anticoagulant NOT REPORTED Normal [facility] Comment on above: Performed By: #### C RP, TSHX ####[facility] [address] [place], [place] [phone] Director: Shreyas Crain DO#### HOCYS, GLYHGB, B12FOL, FA7, FA8, AT3A ####[facility] [address] [place] [address] Lab Director: Bowen Lemon MD#### ALPLA, AAPCR, APRTSF, AB2GLY, APROTC, ADYSF, AAPDSR ####[facility] [address] [place], [place] [phone] Lab Director: Kristopher Kerr MD#### LUPPRO ####[facility] [address] [place] [address] Lab Director: Shreyas Crain DOMercy [address] [place] [address] Lab Director: Bowen Lemon MD#### MISCR ####[facility] [place] [address] Lab Director: RADHA Delgado [address] [place], [place] [phone] Lab Director: Kristopher Kerr MD TSH With Reflex Ft4on 2019 TSH Qn 1.14 m[IU]/L [place], [place] TSH w/reflex to FT4on 2019 TSH Qn 1.14 m[IU]/L Normal 0.30-5.00 [facility] Comment on above: Performed By: #### C RP, TSHX #### [facility] [address] [place] [address] Back Grinder: Shreyas Crain DO #### HOCYS, GLYHGB, B12FOL, FA7, FA8, AT3A #### [facility] [address] [place] [address] Back Grinder: Bowen Lemon MD #### ALPLA, AAPCR, APRTSF, AB2GLY, APROTC, ADYSF, AAPDSR #### [facility] [address] [place], [place] [phone] Back Grinder: Kristopher Kerr MD #### LUPPRO #### [facility] [address] [place] [address] Back Grinder: Shreyas Crain DO [facility] [address] [place] [address] Back Grinder: Bowen Lemon MD #### MISCR #### [facility] [address] [place] [address] Back Grinder: Bowen Lemon MD [address] [address] Back Grinder: Kristopher Kerr MD Vitamin B12 & Folateon 05-08 Cobalamin (Vitamin B12) [Mass/Vol] 840 pg/mL 232 - 1245 pg/mL [facility] [place] Folate 5.3 ng/mL >4.8 [place], [place] CT HEAD WO CONTRASTon 2019 CT [...] Jethro Duran MD 12/12/19 Final result Normal [facility] Previous hyperdensit y appears to have decreased in conspicuity suggesting resolving hemorrhage. The findings were sent to the Radiology Results Communication Center at 9:44 am on 12/12/2019to be communicated to a licensed caregiver. [facility] [place] EXAMINATION: CT OF T HE HEAD WITHOUT [...] visualized skull or soft tissues. [facility] [place] Adam, Mhpn Incoming R adiant Results From [employer]/Pacs - 12/12/2019 3:40 PM EST EXAMINATION: CT [...] PROVIDED HISTORY: Cerebrovascular accident (CVA), unspecified mechanism ([facility]) TECHNOLOGIST PROVIDED HISTORY: follow up on intracranial [...] 12/12/2019to be communicated to a licensed caregiver. [place], [place] CT HEAD WO CONTRASTon 2019 CT [...] SYSTEM PROVIDED HISTORY: Intraparenchymal hemorrhage of brain ([facility]) TECHNOLOGIST PROVIDED HISTORY: R parietal lobe hemorrhage [...] Beto Lo MD 11/06/19 Final result Normal [facility] CT HEAD WO CONTRASTOrdered B y: Barbara [...] with chronic microvascular white matter ischemic disease. [facility] [employer] Work Phone: EXAMINATION: CT OF T HE [...] of the visualized skull or soft tissues. [employer] Phone: Adam, Mhpn Incoming R adiant Results From [employer]/Pacs - 11/06/2019 1:51 PM EST EXAMINATION: CT [...] with chronic microvascular white matter ischemic disease. [employer] Phone: CT head without contrastOrde red By: Barbara Brit on 10-31-2019 Punctate hyperdense focus in the white matter of the right parietal lobe adjacent to the right lateral ventricle that may represent a small hemorrhage and short-term follow-up CT of the brain is recommended within the next 24 hours. Findings were discussed with Dr. Romo At 9:05 am on 10/31/2019. [employer] Phone: EXAMINATION: CT OF T HE HEAD [...] of the visualized skull or soft tissues. [employer] Phone: Adam, pn Incoming R adiant Results From [employer] - 10/31/2019 9:34 AM EST EXAMINATION: CT [...] Dr. Romo At 9:05 am on 10/31/2019. [employer] Phone: EKG 12 LeadOrdered By: Robert Stephenson on 10-31-2019 Atrial Rate 79 BPM [employer] Phone: P Claridge 54 degrees [employer] Phone: P-R Interval 188 ms [employer] Phone: Q-T Interval 392 ms [employer] Phone: QRS Duration 102 ms [employer] Phone: QTc Calculation (Bazett) 449 ms [employer] Phone: R Claridge 0 degrees [employer] Phone: T Claridge 59 degrees [employer] Phone: Ventricular Rate 79 BPM [employer] Phone: Normal sinus rhythm Normal ECG No previous ECGs available [employer] Phone: Adam, Mhpn Incoming E kg Results From [employer] - 10/31/2019 10:53 AM EST Normal sinus rhythm Normal ECG No previous ECGs available [employer] Phone: POC Glucose FingerstickOrder ed By: Bennie Bosch on 10-31-2019 Glucose [Mass/Vol] 122 mg/dL High 75 - 110 mg/dL [employer] Phone: Interpretation and review of laboratory results Abnormal [employer] Phone: Vital Signs Date Time Vital Sign Value Performing Clinician Facility 09-26-2024 11:44-0500 Body height 182.9 cm Alec Pinzon MD Work Phone: [facility] 09-26-2024 11:44-0500 Body mass index (BMI) [Ratio] 27.67 kg/m2 Alec Pinzon MD Work Phone: [facility] 09-26-2024 11:44-0500 Body temperature 97.5 [degF] Alec Pinzon MD Work Phone: [facility] 09-26-2024 11:44-0500 Body weight 92.53 kg Alec Pinzon MD Work Phone: [facility] 09-26-2024 11:44-0500 Diastolic blood pressure 60 mm[Hg] Alec Pinzon MD Work Phone: [facility] 09-26-2024 11:44-0500 Heart rate 70 /min Alec Pinzon MD Work Phone: [facility] 09-26-2024 11:44-0500 Respiratory rate 18 /min Alec Pinzon MD Work Phone: [facility] 09-26-2024 11:44-0500 SaO2% (BldA) [Mass fraction] 99 % Alec Pinzon MD Work Phone: [facility] 09-26-2024 11:44-0500 Systolic blood pressure 104 mm[Hg] Alec Pinzon MD Work Phone: [facility] 09-06-2024 13:13-0500 Body height 182.9 cm Alec Pinzon MD Work Phone: [facility] 09-06-2024 13:13-0500 Body mass index (BMI) [Ratio] 28.35 kg/m2 Alec Pinzon MD Work Phone: [facility] 09-06-2024 13:13-0500 Body temperature 97.3 [degF] Alec Pinzon MD Work Phone: [facility] 09-06-2024 13:13-0500 Body weight 94.8 kg Alec Pinzon MD Work Phone: [facility] 09-06-2024 13:13-0500 Diastolic blood pressure 58 mm[Hg] Alec Pinzon MD Work Phone: [facility] 09-06-2024 13:13-0500 Heart rate 75 /min Alec Pinzon MD Work Phone: [facility] 09-06-2024 13:13-0500 Respiratory rate 18 /min Alec Pinzon MD Work Phone: [facility] 09-06-2024 13:13-0500 SaO2% (BldA) [Mass fraction] 97 % Alec Pinzon MD Work Phone: [facility] 09-06-2024 13:13-0500 Systolic blood pressure 96 mm[Hg] Alec Pinzon MD Work Phone: [facility] 05-03-2021 07:59-0400 Diastolic blood pressure 74 mm[Hg] Kranthi Ruvalcaba MD Work Phone: [employer] Work Phone: 05-03-2021 07:59-0400 Heart rate 77 /min Kranthi Ruvalcaba MD Work Phone: [employer] Work Phone: 05-03-2021 07:59-0400 Systolic blood pressure 136 mm[Hg] Kranthi Ruvalcaba MD Work Phone: [employer] Work Phone: 05-03-2021 03:43-0400 Body temperature 97.81 [degF] Kranthi Ruvalcaba MD Work Phone: [employer] Work Phone: 05-03-2021 03:43-0400 Respiratory rate 16 /min Kranthi Ruvalcaba MD Work Phone: [employer] Work Phone: 05-03-2021 03:43-0400 SaO2% (BldA) [Mass fraction] 91 % Kranthi Ruvalcaba MD Work Phone: [employer] Work Phone: 05-02-2021 11:11-0400 Body height 182.9 cm Kranthi Ruvalcaba MD Work Phone: [employer] Work Phone: 04-24-2021 21:58-0400 Body mass index (BMI) [Ratio] 30.24 kg/m2 Kranthi Ruvalcaba MD Work Phone: [employer] Work Phone: 04-24-2021 21:58-0400 Body weight 101.15 kg Kranthi Ruvalcaba MD Work Phone: [employer] Work Phone: 10-31-2019 11:07-0500 Diastolic blood pressure 78 mm[Hg] Robert Stephenson MD Work Phone: [employer] Work Phone: 10-31-2019 11:07-0500 Heart rate 80 /min Robert Stephenson MD Work Phone: [employer] Work Phone: 10-31-2019 11:07-0500 Respiratory rate 17 /min Robert Stephenson MD Work Phone: [employer] Work Phone: 10-31-2019 11:07-0500 SaO2% (BldA) [Mass fraction] 92 % Robert Stephenson MD Work Phone: [employer] Work Phone: 10-31-2019 11:07-0500 Systolic blood pressure 120 mm[Hg] Robert Stephenson MD Work Phone: [employer] Work Phone: 10-31-2019 09:58-0500 Body height 182.9 cm Robert Stephenson MD Work Phone: [employer] Work Phone: 10-31-2019 09:58-0500 Body mass index (BMI) [Ratio] 28.88 kg/m2 Robert Stephenson MD Work Phone: [employer] Work Phone: 10-31-2019 09:58-0500 Body temperature 97.7 [degF] Robert Stephenson MD Work Phone: [employer] Work Phone: 10-31-2019 09:58-0500 Body weight 96.6 kg Robert Stephenson MD Work Phone: [employer] Work Phone: Encounters Encounter Date Encounter Type Care Provider Facility Start: 10-20-2024 End: 10-20-2024 ambulatory JESSA HAMMONDS [facility] Start: 10-20-2024 End: 10-20-2024 ambulatory [facility] Start: 10-17-2024 ambulatory [facility] Start: 10-16-2024 End: 10-16-2024 Refill Alec Pinzon MD Work Phone: [facility] Comment on above: 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 ([facility]/HCC) Start: 09-29-2024 End: 09-29-2024 [facility] Start: 09-27-[address] [facility] Start: 09-26-2024 End: 09-26-2024 Bamboo flowsheet Alec Pinzon MD Work Phone: [facility] Start: 09-26-2024 End: 09-26-2024 Bamboo flowsheet Alec Pinzon MD Work Phone: [facility] Start: 09-26-2024 End: 09-26-2024 Transitional care manage srvc 14 day discharge Alec Pinzon MD Work Phone: [facility] Comment on above: Pneumonia due to inf ectious organism, unspecified laterality, unspecified part of lung (Primary Dx); Muscle spasm of back Start: 09-26-2024 End: 09-26-2024 ambulatory ALEC PINZON Not Available Start: 09-18-2024 End: 09-18-2024 Refill Alec Pinzon MD Work Phone: [facility] Comment on above: 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 (CMS/HCC) Start: 09-16-2024 End: 09-18-2024 Clinisync Result Encounter Generic External Data Provider [facility] External Department Unsolicited Start: 09-16-2024 End: 09-18-2024 Clinisync Result Encounter Generic External Data Provider [facility] External Department Unsolicited Start: 09-06-2024 End: 09-06-2024 Bamboo flowsheet Alec Pinzon MD Work Phone: [facility] Start: 09-06-2024 End: 09-06-2024 Bamisis flowsheet Alec Pinzon MD Work Phone: [facility] Start: 09-06-2024 End: 09-06-2024 ambulatory ALEC PINZON Not Available Start: 09-06-2024 End: 09-06-2024 Office outpatient visit 25 minutes Alec Pinozn MD Work Phone: [facility] Comment on above: Type 2 diabetes daniela itus with hyperglycemia, without long-term current use of insulin (CMS/HCC) (Primary Dx); Adrenal insufficiency (CMS/HCC); Benign essential hypertension (CMS/HCC); Type 2 diabetes mellitus with diabetic polyneuropathy, without long-term current use of insulin (CMS/HCC); 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 (CMS/HCC); Primary insomnia; Gastroesophageal reflux disease without esophagitis Start: 09-01-2024 End: 09-01-2024 ambulatory ALEKSANDRA RUSSO [facility] Start: 08-30-2024 End: 08-30-2024 ambulatory LASHONDA ROBLES [facility] Start: 08-22-2024 End: 08-22-2024 Flor Pinzon MD Work Phone: [facility] Comment on above: 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 (CMS/HCC) Start: 08-11-2024 End: 08-11-2024 ambulatory [facility] Start: 08-09-2024 ambulatory [facility] Start: 07-26-2024 End: 07-26-2024 Flor Pinzon MD Work Phone: [facility] Comment on above: 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 ([facility]/HCC) Start: 07-19-2024 End: 07-19-2024 ambulatory [facility] Start: 07-18-2024 End: 07-18-2024 ambulatory EVANGELINA [facility] Start: 07-10-2024 [facility] Start: 07-09-2024 Emergency department patient visit [facility] Start: 07-09-2024 Emergency department patient visit [facility] Start: 07-09-2024 End: 07-12-2024 Evaluation and management of inpatient AMBER [facility] Start: 06-30-2024 End: 06-30-2024 ambulatory [facility] Start: 06-29-2024 ambulatory [facility] Start: 06-28-2024 End: 06-28-2024 Flor Pinzon MD Work Phone: [facility] Comment on above: 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 (HCC) ([facility]/HCC) Start: 06-09-2024 End: 06-09-2024 ambulatory [facility] Start: 06-07-2024 End: 06-07-2024 ambulatory WILLIAM GAMBINO [facility] Start: 06-07-2024 ambulatory [facility] Start: 06-07-2024 End: 06-07-2024 ambulatory [facility] Start: 06-06-2024 End: 06-06-2024 ambulatory [facility] Start: 06-05-2024 End: 06-05-2024 ambulatory JESSA HAMMONDS [facility] Start: 05-19-2024 End: 05-19-2024 ambulatory ALEKSANDRA [facility] Start: 05-18-2024 ambulatory ALEKSANDRA [facility] Start: 05-09-2024 End: 05-09-2024 ambulatory ALEKSANDRA [facility] Start: 04-28-2024 End: 04-28-2024 ambulatory ALEKSANDRA [facility] Start: 04-28-2024 End: 04-28-2024 ambulatory [facility] Start: 04-27-2024 ambulatory ALEKSANDRA [facility] Start: 04-07-2024 End: 04-07-2024 ambulatory ALEKSANDRA [facility] Start: 04-04-2024 ambulatory K[facility] Start: 04-04-2024 End: 04-04-2024 ambulatory JESSA HAMMONDS [facility] Start: 03-27-2024 End: 03-27-2024 ambulatory ALEKSANDRA [facility] Start: 03-22-2024 End: 03-22-2024 ambulatory ALEKSANDRA [facility] Start: 03-17-2024 End: 03-17-2024 ambulatory ALEKSANDRA [facility] Start: 03-16-2024 ambulatory KAY [facility] Start: 03-15-2024 End: 03-15-2024 ambulatory ALEC PINZON Not Available Start: 03-07-2024 ambulatory SHAGGY [facility] Start: 03-03-2024 End: 03-03-2024 [facility] Start: 02-28-2024 End: 02-28-2024 ambulatory ALEKSANDRA [facility] Start: 02-25-2024 End: 02-25-2024 ambulatory SHAGGY [facility] Start: 02-11-2024 End: 02-11-2024 [facility] Start: 02-08-2024 End: 02-08-2024 ambulatory [facility] Start: 02-04-2024 End: 02-04-2024 ambulatory ALEKSANDRA [facility] Start: 02-03-2024 [facility] Start: 01-14-2024 End: 01-14-2024 ambulatory ALEKSANDRA [facility] Start: 01-13-2024 ambulatory [facility] Start: 12-28-2023 End: 12-28-2023 ambulatory ALEKSANDRA [facility] Start: 12-24-2023 End: 12-24-2023 ambulatory ALEKSANDRA [facility] Start: 12-23-2023 ambulatory ALEKSANDRA VINDRA [facility] Start: 12-23-2023 End: 12-23-2023 ambulatory OBI GAYLE [facility] Start: 12-16-2023 End: 12-16-2023 ambulatory LEDY UP [facility] Start: 12-13-2023 ambulatory ALEKSANDRA VIJENDRA [facility] Start: 12-13-2023 Encounter for other preprocedural examination [facility] Start: 12-09-2023 End: 12-09-2023 ambulatory ALEKSANDRA [facility] Start: 12-09-2023 Encounter for other preprocedural examination [facility] Start: 12-08-2023 ambulatory [facility] Start: 12-08-2023 ambulatory [facility] Start: 12-06-2023 ambulatory [facility] Start: 12-06-2023 ambulatory JESSA UNDERWOOD [facility] Start: 11-26-2023 End: 11-26-2023 ambulatory [facility] Start: 11-23-2023 End: 11-23-2023 ambulatory [facility] Start: 11-17-2023 End: 11-17-2023 ambulatory ALEC PINZON Not Available Start: 11-09-2023 End: 11-10-2023 Evaluation and management of inpatient [facility] Start: 11-04-2023 End: 11-04-2023 ambulatory [facility] Start: 11-04-2023 End: 11-04-2023 Encounter for preprocedural cardiovascular examination [facility] Start: 09-24-2023 End: 10-18-2023 ambulatory ALEC PINZON [facility] Start: 09-17-2023 End: 10-18-2023 ambulatory ALEC PINZON [facility] Start: 11-19-2022 End: 11-20-[address] ALEC [...] Evaluation and management of inpatient ALEC PINZON [facility] Start: 04-24-2021 End: 05-03-2021 Evaluation and management of inpatient Kranthi Ruvalcaba MD Work Phone: ST CAR 2 Comment on above: Altered mental statu s, unspecified altered mental status type (Primary Dx); NSTEMI (non-ST elevated myocardial infarction) (HCC) Start: 05-08-2020 End: 05-09-2020 Patient encounter procedure [facility] Start: 05-08-2020 End: 05-08-2020 Subsequent [...] Start: 05-08-2020 End: 05-08-2020 Patient encounter procedure [facility] Start: 05-08-2020 End: 05-08-2020 Subsequent hospital visit by physician Tony Eeg Rm 500 [facility] EEG Comment on above: 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 (HCC); Memory impairment 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) ; Cerebrovascular accident (CVA) due to embolism of precerebral artery (HCC) Start: 12-12-2019 End: 12-15-2019 Patient encounter procedure SABRINA OSWALDAN [facility] Start: 12-12-2019 End: 12-14-2019 Subsequent hospital visit by physician [facility] Rm 1 [facility] CT Scan Comment on above: Cerebrovascular acci dent (CVA), unspecified mechanism (HCC) Start: 11-06-2019 End: 11-09-2019 [facility] Start: 11-06-2019 End: 11-08-2019 Subsequent hospital visit by physician Stpatrick 1 [facility] CT Scan Comment on above: Intraparenchymal hem orrhage of brain (HCC) Start: 10-30-2019 End: 10-31-2019 Evaluation and management of inpatient Robert Stephenson MD Work Phone: STVZ [id number] NSICU Comment on above: Intraparenchymal hem orrhage of brain (HCC) (Primary Dx) Start: 04-26-2018 End: 04-27-2018 Ambulatory DEFAULT PHYSICIAN [facility] Start: 05-06-2017 End: 05-07-2017 Ambulatory DEFAULT PHYSICIAN [facility] Procedures Date Procedure Procedure Detail Performing Clinician Start: 09-16-2024 AEROBE ID + SUSCEPT Gen dav External Data Provider Start: 07-26-2024 Follow-up visit Follow-up ALEKSANDRA V IJENDRA Start: 06-07-2024 Follow-up visit ALEKSANDRA V IJENDRA Start: 05-09-2024 Follow-up visit ALEKSANDRA V IJENDRA Start: 03-22-2024 Follow-up visit ALEKSANDRA V IJENDRA Start: 03-03-2024 Follow-up visit ALEKSANDRA V IJENDRA Start: 02-11-2024 Follow-up visit ALEKSANDRA V IJENDRA Start: 12-06-2023 Follow-up visit ALEKSANDRA V IJENDRA Start: 11-26-2023 Follow-up visit ALEKSANDRA V IJENDRA Start: 11-04-2023 Follow-up visit ALEKSANDRA V IJENDRA Start: 11-18-[address] CATALINO BUSBY Comment on above: Performed By: #### [facility] #### [facility] [address] [place] [address] Dr. 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 Work Phone: Start: 04-28-2021 Echo tthrc r-t 2d w/ wom-mode compl spec&colr d Babak Mancuso MD Work Phone: Start: 04-28-2021 Glucose blood reagent strip Ning Wallace MD Work Phone: Start: 04-28-2021 Assay of magnesium Tmeo Osborn MD Work Phone: Start: 04-28-2021 BASIC [...] 04-27-2021 Basic metabolic pane l calcium total Andreas Branchjo ann 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 Work Phone: Start: 04-27-2021 Thromboplastin time partial [...] Start: 04-25-2021 Thromboplastin time partial plasma/whole blood Pj Becerril MD Work Phone: Start: 04-25-2021 Blood count complete automated Gee Dewey MD Work Phone: Start: 04-25-2021 VITAMIN B12 & FOLATE Mo jesús Aguiar MD Work Phone: Start: 04-25-2021 Hemoglobin glycosylated a1c Rogelio Epstein MD Work Phone: Start: 04-25-2021 Ct abdomen & pelvis w/o contrast material Kay Orourkedina DICKSON Work Phone: Start: 04-25-2021 Glucose blood reagent [...] Work Phone: Start: 04-24-2021 C-reactive protein Tuan Ruvalcaba MD Work Phone: Start: 04-24-2021 STROKE [...] CARE Kranthi Ruvalcaba MD Work Phone: Start: 07-08-2021 ELECTROLYTES PLUS Rashawn erich Ruvalcaba MD Work Phone: Start: 04-24-2021 End: 04-24-2021 Gluc bld gluc mntr dev cleared fda spec home use Kranthi Ruvalcaba MD Work Phone: Start: 04-24-2021 LACTIC ACID,POINT OF CARE Kranthi Ruvalcaba MD Work Phone: Start: 04-24-2021 VENOUS BLOOD GAS, PO INT OF CARE Kranthi Ruvalcaba MD Work Phone: Start: 05-08-2020 FACTOR 5 LEIDEN BARBARA BRIT Start: 05-08-2020 PROTHROMBIN GENE MUTATION BARBARA PEREA Start: 05-08-2020 MTHFR MUTATION BARBARA F IZZY Start: 05-08-2020 Activated protein c apc resistance assay BARBARA PEREA Start: 05-08-2020 Anti-phosphatidylser ine antibody BARBARA PEREA Start: 05-08-2020 Assay of homocysteine S DEYSI PEREA Start: 05-08-2020 Assay of thyroid sti mulating hormone tsh BARBARA PEREA Start: 05-08-2020 Beta 2 glycoprotein i antibody each BARBARA PEREA Start: 05-08-2020 Blood count automate d differential wbc count BARBARA PEREA Start: 05-08-2020 C-reactive protein SCOT ROSELIA PEREA Start: 05-08-2020 Clotting factor vii proconvertin [...] tissue BARBARA PEREA Start: 05-08-2020 Electroencephalogram SC MILENAAna PEREA Start: 05-08-2020 Echo tthrc r-t 2d w/ wom-mode compl spec&colr d BARBARA PEREA Start: 05-08-2020 Assay of homocysteine R abia Андрей Work Phone: Start: 05-08-2020 Assay of thyroid sti mulating hormone tsh Andreia Ramos Work Phone: Start: 05-08-2020 C-reactive protein Umer Ramos Work Phone: Start: 05-08-2020 Hemoglobin glycosylated a1c Andreia Ramos Work Phone: Start: 05-08-2020 Thromboplastin inhib ition tissue Andreia Ramos Work Phone: Start: 05-08-2020 VITAMIN B12 & FOLATE Ra silvino Ramos Work Phone: Start: 05-08-2020 Electroencephalogram w/rec awake&asleep BARBARAAna PEREA Start: 05-08-2020 Echo tthrc r-t 2d w/ wom-mode compl spec&colr d Andreia Ramos Work Phone: Start: 05-08-2020 Electroencephalogram w/rec awake&asleep Andreia Ramos Work Phone: Start: 12-12-2019 Ct head/brain w/o co ntrast material BARBARAAna PEREA Start: 12-12-2019 Ct head/brain w/o co ntrast material Sabrina Ma Cosme Work Phone: Start: 11-06-2019 Ct head/brain w/o co ntrast material BARBARAAna PEREA Start: 11-06-2019 Ct head/brain w/o co [...] 03-26-2027 Screening for malignant neoplasm of colon [facility] Start: 05-22-2026 Glaucoma screening Diabetes: Retinopathy Screening [facility] Start: 08-30-2025 Urine screening for protein Diabetes: Urine Protein Screening [facility] Start: 08-09-2025 Urine screening for protein Diabetes: Urine Protein Screening [facility] Start: 07-12-2025 Urine screening for protein Diabetes: Urine Protein Screening [facility] Start: 06-07-2025 Urine screening for protein Diabetes: Urine Protein Screening [facility] Start: 03-06-2025 End: 03-06-2025 Patient encounter procedure 03/06/2025 1:15 PM EDT Office Visit [facility] [address] [place] [id number] Alec Pinzon MD [address] [place] [phone] [facility] Start: 09-26-2024 End: 09-26-2024 Patient encounter procedure [facility] Comment on above: Arrived Start: 09-16-2024 Hemoglobin A1c measurement Diabetes: Hemoglobin A1C [facility] Start: 09-06-2024 End: 09-06-2025 Albumin, urine, random Albumin, urine, random Lab Routine Type 2 diabetes mellitus with hyperglycemia, without long-term current use of insulin ([facility]) Expected: 09/06/2024 (Approximate), Expires: 09/06/2025 [facility] Work Phone: Comment on above: Expected: 09/06/2024 (Approximate), Expi res: 09/06/2025 Start: 09-06-2024 End: 09-06-2025 Hemoglobin A1c/Hemoglobin.total in Blood Hemoglobin A1c Lab Routine Type 2 diabetes mellitus with hyperglycemia, without long-term current use of insulin ([facility]/HCC) Expected: 09/06/2024 (Approximate), Expires: 09/06/2025 [facility] Comment on above: Expected: 09/06/2024 (Approximate), Expi res: 09/06/2025 Start: 09-06-2024 End: 09-06-2024 Patient encounter procedure 09/06/2024 1:00 PM EST Office Visit [facility] [address] [place] [address] Alec Pinzon MD [address] [place] [address] [facility] Start: 06-18-2024 Influenza vaccination Influenza Vaccine (#1) [facility] Start: 06-16-2024 Hemoglobin A1c measurement Diabetes: Hemoglobin A1C [facility] Start: 05-03-2022 Creatinine measurement [facility] Phone: Start: 05-03-2022 Potassium monitoring Potassium monitoring [facility] Phone: Start: 04-26-2022 Lipid panel Lipid screen [employer] Phone: Start: 04-25-2022 Hemoglobin A1c measurement A1C test (Diabetic or Prediabetic) [employer] Phone: Start: 07-03-2021 End: 07-03-2021 Patient encounter procedure 07/03/2021 Office Visit Neurology Soraya Henning MD [address] [phone] [facility] Start: 06-18-2021 Influenza vaccination Flu vaccine (#1) [employer] Phone: Start: 2020 End: 2020 Office Visit 2020 Office Visit Neurology Andreia Ramos MD [address] [phone] [facility] Start: 06-18-2020 Influenza vaccination Flu vaccine (#1) [facility] [place] Start: 12-21-2019 End: 12-21-2019 Office Visit 12/21/2019 Office Visit Neurology Soraya Henning MD [address] [address] [place] [address] [phone] [facility] Start: 12-05-2019 End: 12-05-2019 Patient encounter procedure 12/05/2019 Office Visit Neurology Sabrina Aguiar Sa, MD [address] [facility] [address] [place] [address] [phone] [facility] Start: 11-06-2019 End: 10-31-2020 CT HEAD WO CONTRAST CT HEAD WO CONTRAST Imaging Routine Intraparenchymal hemorrhage of brain (HCC) Expected: 11/06/2019, Expires: 10/31/2020 [employer] Phone: Comment on above: Expected: 11/06/2019, Expires: Start: 10-30-2019 Annual Wellness Visit (AWV) Annual Wellness Visit (AWV) [employer] Phone: Start: 2007 Colon cancer screen colonoscopy Colon cancer screen colonoscopy [employer] Phone: Start: 2007 Screening for malignant neoplasm of colon Colon cancer screen colonoscopy [facility] [place] Start: 2007 Screening for malignant neoplasm of lung Low dose CT lung screening [employer] Phone: Start: 2007 Shingles Vaccine (1 of 2) Shingles Vaccine (1 of 2) [employer] Phone: Start: 2002 Screening for malignant neoplasm of colon Colon cancer screen colonoscopy [employer] Phone: Start: 1997 Diabetes screen Diabetes screen [employer] Phone: Start: 1976 DTaP/Tdap/Td vaccine (1 - Tdap) DTaP/Tdap/Td vaccine (1 - Tdap) [facility] [place] Start: 1976 Urine screening for protein Diabetes: Urine Protein Screening [facility] Start: 1975 Diabetic microalbuminuria test Diabetic microalbuminuria test [employer] Phone: Start: 1972 HIV screen HIV screen [employer] Phone: Start: 1972 HIV screening HIV screen [facility] [place] Start: 1968 DTaP/Tdap/Td vaccine (1 - Tdap) DTaP/Tdap/Td vaccine (1 - Tdap) [employer] Phone: Start: 1967 Diabetic foot examination Diabetic foot exam [employer] Phone: Start: 1967 Diabetic retinal exam Diabetic retinal exam [employer] Phone: Start: 1967 Glaucoma screening Diabetes: Retinopathy Screening [facility] Start: 1967 Lipid panel Lipid screen [place], [place] Start: 1967 Lipid screen Lipid screen [facility] Phone: Start: 1963 Pneumococcal 0-64 years Vaccine (1 of 1 - PPSV23) Pneumococcal 0-64 years Vaccine (1 of 1 - PPSV23) [facility] Phone: Start: 1963 Pneumococcal 0-64 years Vaccine (1 of 2 - PPSV23) Pneumococcal 0-64 years Vaccine (1 of 2 - PPSV23) [facility] Phone: Start: 1963 Pneumococcal Vaccine: 65+ Years (1 of 2 - PCV) Pneumococcal Vaccine: 65+ Years (1 of 2 - PCV) [facility] Start: 1957 Creatinine measurement Creatinine monitoring [facility] [place] Start: 1957 Creatinine monitoring Creatinine monitoring [facility] Phone: Start: 1957 Hepatitis C screen Hepatitis C screen [facility] Phone: Start: 1957 Hepatitis C screening Hepatitis C screen [place], [place] Start: 1957 Potassium monitoring Potassium monitoring [facility] Phone: Start: 1957 Screening for malignant neoplasm of colon [facility] End: 05-08-2020 Activated Protein C Resistance Activated Protein C Resistance Lab Routine 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) 1 Occurrences starting 05/08/2020 until 05/08/2020 [place], [place] Comment on above: 1 Occurrences starting 05/08/2020 until 05/08/2020 Activated Protein C Resistance Activated Protein C Resistance Lab Routine 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) 05/08/2020 11:16 AM EDT [place], [place] AEROBE ID + SUSCEPT AEROBE ID + SUSCEPT Lab Routine 09/16/2024 10:25 AM EST [facility] End: 05-08-2020 Antithrombin III Activity Antithrombin III Activity Lab Routine 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) 1 Occurrences starting 05/08/2020 until 05/08/2020 [place], [place] Comment on above: 1 Occurrences starting 05/08/2020 until 05/08/2020 Antithrombin III Activity Antith rombin III Activity Lab Routine 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) 05/08/2020 11:16 AM EDT [place], [place] End: 05-04-2021 aPTT in Blood by Coagulation assay APTT Lab Routine Daily for 3 Occurrences starting 05/02/2021 until 05/04/2021, 2 completed [employer] Phone: Comment on above: Daily for 3 Occurrences starting 021 until 05/04/2021, 2 completed Basic Metabolic Pane l w/ Reflex to MG Basic Metabolic Panel w/ Reflex to MG Lab Routine Daily until discontinued starting 04/26/2021, 8 completed [employer] Phone: Comment on above: Daily until discontinued starting 2020, 8 completed End: 11-01-2019 Basic Metabolic Panel w/ Reflex to MG Basic Metabolic Panel w/ Reflex to MG Lab Routine Tomorrow AM for 1 Occurrences starting 11/01/2019 until 11/01/2019 [employer] Phone: Comment on above: Tomorrow AM for 1 Occurrences starting 0 11/01/2019 until 11/01/2019 End: 05-08-2020 Beta-2 Glycoprotein Antibodies Beta-2 Glycoprotein Antibodies Lab Routine 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) 1 Occurrences starting 05/08/2020 until 05/08/2020 [facility] [place] Comment on above: 1 Occurrences starting 05/08/2020 until 05/08/2020 Beta-2 Glycoprotein Antibodies Beta-2 Glycoprotein Antibodies Lab Routine 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) 05/08/2020 11:16 AM EDT [facility] [place] CBC panel - Blood by Automated count CBC Lab Routine Every Other Day until discontinued starting 04/27/2021, 4 completed [employer] Phone: Comment on above: Every Other Day until discontinued start ing 04/27/2021, 4 completed End: 11-01-2019 CBC W Auto Differential panel - Blood CBC auto differential Lab Routine Tomorrow AM for 1 Occurrences starting 11/01/2019 until 11/01/2019 [employer] Phone: Comment on above: Tomorrow AM for 1 Occurrences starting 0 11/01/2019 until 11/01/2019 End: 05-08-2020 Factor 5 Leiden Factor 5 Leiden Lab Routine 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) 1 Occurrences starting 05/08/2020 until 05/08/2020 [facility] [place] Comment on above: 1 Occurrences starting 05/08/2020 until 05/08/2020 End: 05-08-2020 Factor 7 Assay Factor 7 Assay Lab Routine 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) 1 Occurrences starting 05/08/2020 until 05/08/2020 [facility] [place] Comment on above: 1 Occurrences starting 05/08/2020 until 05/08/2020 Factor 7 Assay Factor 7 Assay L ab Routine 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) 05/08/2020 11:16 AM EDT [facility] End: 05-08-2020 Factor 8 Assay Factor 8 Assay Lab Routine 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) 1 Occurrences starting 05/08/2020 until 05/08/2020 [facility] [place] Comment on above: 1 Occurrences starting 05/08/2020 until 05/08/2020 Factor 8 Assay Factor 8 Assay L ab Routine 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) 05/08/2020 11:16 AM [facility] [address] [employer] [facility], [place] End: 05-08-2020 FIBRINOGEN PANEL FIBRINOGEN PANEL Lab Routine 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) 1 Occurrences starting 05/08/2020 until 05/08/2020 [place] Comment on above: 1 Occurrences starting 05/08/2020 until 05/08/2020 FIBRINOGEN PANEL FIBRINOGEN PANE L Lab Routine 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) 05/08/2020 11:16 AM [facility] [address] [address] [place] Glucose [Mass/volume ] in Serum or Plasma POCT Glucose Point of Care Testing STAT As Needed until discontinued starting 04/27/2021 [employer] Phone: Comment on above: As Needed until discontinued starting End: 04-25-2021 Hemoglobin A1c/Hemoglobin.total in Blood HEMOGLOBIN A1C Lab Routine One Time for 1 Occurrences starting 04/25/2021 until 04/25/2021 [employer] Phone: Comment on above: One Time for 1 Occurrences starting 06/2021 until 04/25/2021 Initiate Oxygen Ther apy Protocol Initiate Oxygen Therapy Protocol Respiratory Care Routine Daily until discontinued starting 10/31/2019 [employer] Phone: Comment on above: Daily until discontinued starting 2019 LAB SCANNED REPORT LAB SCANNED R EPORT Lab Ordered: 04/30/2021 [employer] Phone: Comment on above: Ordered: 04/30/2021 End: 05-08-2020 Lipoprotein a [Mass/Vol] Lipoprotein A Lab Routine 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) 1 Occurrences starting 05/08/2020 until 05/08/2020 [place], [place] Comment on above: 1 Occurrences starting 05/08/2020 until 05/08/2020 Lipoprotein a [Mass/Vol] Lipopro tein A Lab Routine 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) 05/08/2020 11:16 AM [facility] [address] [address] [place] Lupus Anticoagulant Lupus Antico agulant Lab Routine 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) 05/08/2020 11:16 AM EDT [employer] [place] Magnesium [Mass/volu me] in Serum or Plasma MAGNESIUM Lab Add-On Daily until discontinued starting 05/02/2021, 2 completed [employer] Phone: Comment on above: Daily until discontinued starting 2020, 2 completed End: 05-08-2020 MTHFR mutation MTHFR mutation Lab Routine 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) 1 Occurrences starting 05/08/2020 until 05/08/2020 [employer] [place] Comment on above: 1 Occurrences starting 05/08/2020 until 05/08/2020 Oxygen therapy [Mini [facility] Data Set] [employer] Phone: Comment on above: Daily until discontinued starting 2020 Daily until disconti nued starting 05/02/2021 End: 05-08-2020 Phosphatidylserine Antibodies Phosphatidylserine Antibodies Lab Routine 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) 1 Occurrences starting 05/08/2020 until 05/08/2020 [employer] Comment on above: 1 Occurrences starting 05/08/2020 until 05/08/2020 Phosphatidylserine Antibodies Phosphatidylserine Antibodies Lab Routine 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) 05/08/2020 11:16 AM EDT [employer] [place] End: 04-24-2021 POC Blood Gas and Chemistry POC Blood Gas and Chemistry Point of Care Testing STAT One Time for 1 Occurrences starting 04/24/2021 until 04/24/2021 [employer] Phone: Comment on above: One Time for 1 Occurrences starting 05/2021 until 04/24/2021 Potassium w/ Reflex to Magnesium Potassium w/ Reflex to Magnesium Lab Routine As Needed until discontinued starting 04/28/2021 [employer] Phone: Comment on above: As Needed until discontinued starting End: 05-08-2020 Protein C Antigen, Total Protein C Antigen, Total Lab Routine 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) 1 Occurrences starting 05/08/2020 until 05/08/2020 [employer] Comment on above: 1 Occurrences starting 05/08/2020 until 05/08/2020 Protein C Antigen, Total Protein C Antigen, Total Lab Routine 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) 05/08/2020 11:16 AM EDT [place] End: 05-08-2020 Protein S Antigen, Free Protein S Antigen, Free Lab Routine 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) 1 Occurrences starting 05/08/2020 until 05/08/2020 [place] Comment on above: 1 Occurrences starting 05/08/2020 until 05/08/2020 Protein S Antigen, Free Protein S Antigen, Free Lab Routine 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) 05/08/2020 11:16 AM EDT [place] End: 05-08-2020 Prothrombin Gene Mutation Prothrombin Gene Mutation Lab Routine 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) 1 Occurrences starting 05/08/2020 until 05/08/2020 [place] Comment on above: 1 Occurrences starting 05/08/2020 until 05/08/2020 Immunizations Immunization Date Immunization Notes Care Provider [facility] 11-10-2023 influenza virus vaccine, unspecified formulation Alec Pinzon MD Work Phone: [facility] 10-31-2019 influenza quadrivale nt split vaccine (FLUZONE;FLUARIX;FLULAV AL;AFLURIA) injection 0.5 mL Robert Stephenson MD Work Phone: [facility] Work Phone: 10-31-2019 influenza, injectabl e, quadrivalent, preservative free Robert Stephenson MD Work Phone: [facility] Work Phone: Payers Date Payer Category Payer Medicare [employer] MEDICARE UHC DUAL COMPLETE [id number] 2022-Present [address] [place] [address] [id number] 2022 Medicare (Managed Care) UNITED [employer]ALTHCARE MEDICARE [id number] 2021 Unknown [id number] 2019 [place] xxxxxxxxxxxx 2019-Present [phone] [address] [place] [address] xxxxxxxxxxxx [id number] 2019 [place] [id number] 2019-Present [phone] [address] [place] [address] [id number] 2019 Medicare MEDICARE MEDICAR E PART A AND B xxxxxxxxxxx 2019-Present [phone] [place] [address] xxxxxxxxxxx [id number] 2019 Medicare [id number] 2019 Medicare MEDICARE MEDICAR E PART A AND B [id number] 2019-Present [phone] [place] [address] [id number] 2017 Unknown [id number] 1959 Medicaid [id number] 1957 Unknown [id number] 2.16.840.1.162616.3.579.2. 176 1957 Unknown [id number] 2.16.840.1.185135.3.579.2. 176 1957 Unknown [id number] 2.16.840.1.934601.3.579.2. 176 1957 Unknown [id number] 2.16.840.1.404222.3.579.2. 176 1957 Unknown [id number] 2.16.840.1.748804.3.579.2. 176 1957 Unknown [id number] 2.16.840.1.132090.3.579.2. 175 1957 Unknown [id number] 2.16.840.1.373848.3.579.2. 593 1957 Unknown [id number] 2.16.840.1.856670.3.579.2. 593 1957 Unknown [id number] 2.16.840.1.764942.3.579.2. 593 1957 Unknown [id number] 2.16.840.1.839897.3.579.2. 593 1957 Unknown [id number] 2.16.840.1.681445.3.579.2. 593 1957 Unknown [id number] 2.16.840.1.962480.3.579.2. 593 1957 Unknown [id number] 2.16.840.1.653445.3.579.2. 1286 1957 Unknown [id number] 2.16.840.1.228169.3.579.2. 1286 1957 Unknown [id number] 2.16.840.1.354604.3.579.2. 1259 1957 Unknown [id number] 2.16.840.1.907678.3.579.2. 1259 1957 Unknown [id number] 2.16.840.1.812877.3.579.2. 1259 1957 Unknown [id number] 2.16.840.1.236667.3.579.2. 1259 Unknown Social History Date Type Detail Facility Start: 10-18-1974 End: 11-17-2023 Tobacco smoking status TNIS Current every day smoker [facility] Start: 10-18-1974 History of tobacco use Cigarette Smo ker [employer] Phone: Start: 11-07-2019 End: 03-14-2024 Cigarettes smoked current (pack per day) - Reported [employer] Phone: Start: 1955 Sex Assigned At Not on file [employer] Phone: Start: 04-25-2020 End: 11-17-2023 Tobacco use and exposure Never used [employer] [place] Start: 08-14-2020 Alcohol intake Ex-drinker (finding) [employer] Phone: Exposure to SARS-CoV -2 (event) Not sure [employer] Start: 03-14-2024 End: 09-26-2024 Social connection and isolation panel [facility] Attends [employer] Services Not on file [facility] Do you belong to any clubs or organizations such as baptist groups, unions, fraternal or athletic groups, or [...] Equipment Origin al Text Equipment Identifier Dates [id number] Start: 05-26-2023 Clinical Notes 10-31-2019 to 09-26-2024 Alec Pinzon MD - 09/26/2024 12:07 PM Jennifer Pinzon MD - 09/26/2024 12:07 PM Jennifer Pinzon MD - 09/26/2024 11:45 AM Jennifer Pinzon MD - 09/06/2024 2:29 PM ESTDischarge Instr - COCAttachments Note Date & Type Note Facility 09-26-2024 History of Present illness Narrative Associated Problem(s): Pneumonia due to infectious organism Recent infection but improved. Monitor. Associated Problem(s): Muscle spasm of back Frequent spasms and start flexeril. Use heat or massage PRN. Images from the original note were not included. Subjective Patient ID: Yoel Van is a 69 y.o. male who presents for Follow-up ([facility] er f/u). Hospital follow up from 09/16-09/17 for sepsis and pneumonia. Developed chills and fever at home. Next am noticed increased weakness. Developed mental status change and confusion. To ER and BP low. Chest x-ray with pneumonia and admitted. Started IV fluids and antibiotics. Improved in hospital and discharged with oral levaquin and doxy. Doing well since home. Afebrile. No SOB or cough. Appetite normal. C/o worsening pain in left flank over past few day. Heat seems to help. Increased tightness and spasms. Review of Systems Constitutional: Negative for fatigue. [...] Assessment/Plan Problem List Items Addressed This Visit Pneumonia due to infectious organism - Primary Recent infection but improved. Monitor. Muscle spasm of back Frequent spasms and start flexeril. Use heat or massage PRN. Relevant Medications cyclobenzaprine (Flexeril) 10 MG tablet documented in this encounter [facility] 09-06-2024 History of Present illness Narrative Associated Problem(s): GERD (gastroesophageal reflux disease) Symptoms controlled with protonix and continue. Associated Problem(s): Insomnia Sleeping well with medication and continue. Associated Problem(s): Type 2 diabetes mellitus with diabetic polyneuropathy, without long-term current use of insulin ([facility]) Symptoms tolerable with medication and continue. 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 Script [...] ADLs to patient. documented in this encounter [facility] 06-30-2024 Note [facility] 06-30-2024 Note [facility] 06-30-2024 Note [facility] 06-30-2024 Note [facility] 06-29-2024 Note Fluids for rising cr eat and eval his thyroid dysfunction at visit with provider .thanks Aleksandra Russo MD [facility] 06-28-2024 Note Relevant Hx: Course: 03/16/24 HgA1C 8.9 Daily Update: Today's Plan: Continue to follow with PCP for management [facility] 06-28-2024 Note [facility] 06-28-2024 Note Port placed by Dr Kary cespedes 12/16/23 at [facility] 06-28-2024 Note [facility] 06-28-2024 Note [facility] 06-28-2024 Note [facility] 06-28-2024 Note [facility] 06-28-2024 Note [facility] 06-28-2024 Note [facility] 06-28-2024 Note [facility] 06-09-2024 Note [facility] 06-07-2024 Note [facility] 06-07-2024 Note Patient has an upcom ing provider visit to address upcoming labs Aleksandra Russo MD [facility] 06-07-2024 Note [facility] 05-19-2024 Note [facility] 05-19-2024 Note [facility] 05-19-2024 Note Please let patient k now and follow his tsh and others. Thanks Aleksandra Russo MD [facility] 05-18-2024 Note With hypercalcemia, please work up and also will get MRI as rec by ortho. Aleksandra Russo MD [facility] 05-18-2024 Note Jessa, Please ch erica with patient at visit on the mri back that ortho were recommending and if not ordered by them would please need ordered Thanks Aleksandra Russo MD [facility] 05-09-2024 Note [facility] 04-28-2024 Note [facility] 04-28-2024 Note [facility] 04-28-2024 Note [facility] 04-04-2024 Note Please also refer to ortho for eval of the compression fracture . 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 Will also keep our urology colleagues in the loop and patient is going to be seeing nephrology next month Aleksandra Russo MD [facility] 02-11-2024 Note [facility] 02-08-2024 Note [facility] 01-14-2024 Note [facility] 12-28-2023 Note [facility] 12-23-2023 Note Likely new baseline. O to start as discussed C1D1 immunotherapy 12/24/2023 Please give him an appointment with nephrology thank Aleksandra Russo MD [facility] 12-23-2023 Note [facility] 12-13-2023 Note [facility] 12-13-2023 Note Thanks for setting u p with nephrology and Urology Will delay planned start of adjuvant IO by a week while waiting on optimization of his kidney function can you please add spep /upep/IFIX and Ufix Thanks so much Aleksandra Russo MD [facility] 12-09-2023 Note Pt was given 1 liter of 0.9% NS PIV over 1hr 45 mins then a cmp was drawn off of pt's #22 IV in Rt fa. [facility] 12-08-2023 Note [facility] 12-08-2023 Note [facility] 12-06-2023 Note [facility] 11-26-2023 Note [facility] 11-23-2023 Note [facility] 11-10-2023 Note [facility] 11-10-2023 Note [facility] 11-09-2023 Note Peripheral IV Date/Time: 11/09/2023 8:55 AM Inserted by: Julia Albrecht MD Placement Needle size: 14 G Laterality: right Location: forearm Site prep: alcohol Technique: anatomical landmarks Attempts: 2 [facility] 11-09-2023 Note [facility] 11-09-2023 Note [facility] 11-04-2023 Note [facility] 10-27-2023 Note [facility] 09-26-2022 Note Indication: Abdomina l wall abscess. [...] authenticated by: MELODIE DUNLAP Date: 2022-09-26 14:17 [facility] 05-03-2021 History of Present illness Narrative Images from the original note were not included. [employer] Progress Note Date: 05/02/2021 Patient name: Yoel [...] vessel has 40% stenosis OM has proximal CUSTOMER EXPERIENCE LEADER and supplied by [employer] on Mid [...] CAD s/p stents to RCA and circumflex, CUSTOMER EXPERIENCE LEADER obtuse branch at [facility] years ago 3. Thoracic aortic aneurysm about [...] Not surgical candidate. Continue aspirin, Plavix, statin, ULANA, BB. SL nitro PRN. Long discussion regarding [...] sign off. Follow up in 2 weeks [employer] [phone] Images from the original note were not [...] assess Fluid Accumulation: No significant fluid accumulation Market Research Interviewer Strength: Not Performed Estimated Daily Nutrient Needs: Energy (kcal): 1.2-1.3 ~> 2482-2249 kcals/d; Weight Used for Energy Requirements: Current Protein (g): 1.2-1.3 gm/kg ~> 97-105 gms/d; Weight Used for Protein Requirements: Randolph Fluid (ml/day): 2700 mLs/d OR per MD discretion; Method Used for Fluid Requirements: (NCM) Nutrition Related Findings: BM 04/30; glucose 163; meds reviewed Wounds: None Current Nutrition Therapies: Diet NPO Anthropometric Measures: Height: 6' (182.9 cm) Current Body Weight: 223 lb (101.2 kg) (stated) Randolph Body Weight: 178 lbs; % Randolph Body Weight 125.3 % BMI: 30.2 BMI [...] Discharge Planning: Too soon to determine Contact: [phone] Images from the original note were not included. [employer] Progress Note Date: 05/02/2021 Patient name: Yoel [...] CAD s/p stents to RCA and circumflex, CUSTOMER EXPERIENCE LEADER obtuse branch at [facility] years ago 3. Thoracic aortic aneurysm about [...] Neurology approved for patient to go on group home [facility]. 6. Plan for PCI of LCx today. Patient has been NPO since midnight. I have discussed risks (including but not limited to vascular injury, infection, hematoma, contrast induced kidney dysfunction, CVA and PR) with both patient and his . The benefits and alternatives discussed in detail. All questions answered. Patient agrees to proceed. [employer] [phone] Images from the original note were not included. [facility] Internal Medicine Teaching Residency Program Inpatient Daily Progress Note Patient: Yoel Van Date of : 1955 Acct: [id number] Room: Admit date: 04/24/2021 Today's date: 05/02/21 [...] ppx: Protonix PT/OT/SW- Onboard Discharge Planning: manager unit consulted, will follow up Gee Parnell MD Internal Medicine Resident, PGY-1 [facility]; [place], [place] 05/02/2021, 7:40 AM Attending Physician Statement [...] from the original note were not included. [facility] Internal Medicine Teaching Residency Program Inpatient Daily Progress Note Patient: Yoel Van Date of : 1955 Acct: [id number] Room: Admit date: 04/24/2021 Today's date: 05/01/21 [...] F (36.9 C) In: 448.9 Out: 1939 [Urine:1940] Physical Exam: Constitutional: This is a well [...] chloride heparin (PORCINE) Infusion 15 Units/kg/hr (05/01/21 5394) PRN Medicationspotassium chloride, 40 mEq, PRN Or [...] Diagnostic Labs: CBC: Recent Labs 04/29/21 0325 05/01/21 0513 WBC 7.5 7.3 RBC 4.10* 4.10* HGB 12.4* 12.6* HCT 37.7* 38.2* MCV 92.0 93.2 RDW 14.1 14.3 PLT 202 250 BMP: Recent Labs 04/29/21 [...] (HCC) NSTEMI (non-ST elevated myocardial infarction) ([facility]) Altered mental status DM (diabetes mellitus), type [...] been improving NSTEMI (non-ST elevated myocardial infarction) ([facility]) Plan: Troponins 180 --> 175 --> 187 [...] ppx: Protonix PT/OT/SW- Onboard Discharge Planning: manager unit consulted, will follow up Gee Parnell MD Internal Medicine Resident, PGY-1 [facility]; [place], [place] 05/01/2021, 2:58 PM Attending Physician Statement [...] resumed Discharge planning initiated Physical Therapy Facility/Department: [facility] 2 Initial Assessment NAME: Yoel Van : [...] diagnosis of NSTEMI (non-ST elevated myocardial infarction) ([facility]) was also pertinent to this visit. 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 [employer] Progress Note Date: 05/01/2021 Patient name: Yoel [...] CAD s/p stents to RCA and circumflex, CUSTOMER EXPERIENCE LEADER obtuse branch at [facility] years ago 3. Thoracic aortic aneurysm about [...] plan. 7. Will make NPO after midnight. [employer] [phone] Images from the original note were not [...] PLT 202 250 BMP: Recent Labs 04/29/21 03204/30/21 0527 05/01/21 0513 NA 138 134* 139 K 3.9 4.0 4.3 CL 106 103 105 CO2 22 19* 20 BUN 11 9 14 CREATININE 0.72 0.74 0.62* GLUCOSE 172* 180* 185* Lab Results Component Value Date CHOL 112 04/26/2021 LDLCHOLESTEROL 51 04/26/2021 HDL 25 (L) 04/26/2021 TRIG 181 (H) 04/26/2021 TSH 1.04 04/25/2021 INR 1.0 04/24/2021 LABA1C 7.5 (H) 04/25/2021 [id number] 04/25/2021 Diagnostic data reviewed: CT HEAD [...] to ensure the accuracy of this automated shipping and receiving operator, some errors in shipping and receiving operator may have occurred. Associated attestation - Elisa Larsen MD - 05/01/2021 7:44 PM EDT Attending Physician Statement I have discussed the case of Yoel Van including pertinent history and exam findings with the resident/ EXCEPTIONAL CHILDREN TEACHER ASSISTANT. I have seen and examined the patient and the burnett elements of the encounter have been performed by me. I agree with the assessment, plan and orders as documented by the resident or EXCEPTIONAL CHILDREN TEACHER ASSISTANT with changes made to the note. Briefly, [...] you. Elisa Larsen MD 05/01/2021 7:41 PM [facility] Neurology IN-PATIENT SERVICE [facility] HISTORY AND PHYSICAL EXAMINATION Date: 04/30/2021 Patient name: Yoel Van Date of admission: 04/24/2021 9:50 PM Account: [id number] Date of : 1955 PCP: Alec Pinzon MD Room: 1015/1015-01 Code Status: Full Code Chief Complaint: Chief [...] PO Take 150 mg by mouth Historical ProviderMD Carvedilol (COREG PO) Take 37.5 mg by [...] Right achilles: 2+ Left achilles: 2+ Right director pharmacology: 2+ Left director pharmacology: 2+ Investigations: Laboratory Testing: Recent Results (from [...] 04/27/2021 NSTEMI (non-ST elevated myocardial infarction) ([facility]) [I21.4] 04/25/2021 Altered mental status [R41.82] Acute ischemic stroke ([facility]) [I63.9] 65 y.o. male who presents with [...] history and exam findings with the resident/ EXCEPTIONAL CHILDREN TEACHER ASSISTANT. I have seen and examined the patient and the burnett elements of the encounter have been performed by me. I agree with the assessment, plan and orders as documented by the resident or EXCEPTIONAL CHILDREN TEACHER ASSISTANT with changes made to the note. Briefly, [...] from the original note were not included. [facility] Internal Medicine Teaching Residency Program Inpatient Daily Progress Note Patient: Yoel Van Date of : 1955 Acct: [id number] Room: [facility]- Admit date: 04/24/2021 Today's date: 04/30/21 Number [...] ppx: Protonix PT/OT/SW- Onboard Discharge Planning: manager unit consulted, will follow up Gee Parnell MD Internal Medicine Resident, PGY-1 [facility]; [place], [place] 04/30/2021, 7:23 AM Attending Physician Statement I have discussed the care of Yoel Manny Van with the resident team. I have [...] the original note were not included. [employer] Progress Note Date: 04/30/2021 Patient name: Yoel Van Date of admission: 04/24/2021 9:50 PM Date of : 1955 PCP: Alec Pinzon MD Reason for Admission: NSTEMI (non-ST elevated myocardial infarction) ([facility]) [I21.4] Subjective: Postop day 2 of cardiac [...] Units/kg/hr (04/30/21 0207) CBC: Recent Labs 04/29/21 0325 WBC 7.5 HGB 12.4* PLT 202 BMP: Recent Labs 04/28/21 0240 04/29/21 0325 04/30/21 0527 NA 136 138 134* K 3.7 3.9 4.0 CL 104 106 103 CO2 22 19* BUN 10 11 9 CREATININE [...] CAD s/p stents to RCA and circumflex, CUSTOMER EXPERIENCE LEADER obtuse branch at [facility] years ago 3. Thoracic aortic aneurysm about [...] With changes made to the note. . [employer] [phone] Images from the original note were not [...] the original note were not included. [employer] Progress Note Date: 04/29/2021 Patient name: Yoel [...] CAD s/p stents to RCA and circumflex, CUSTOMER EXPERIENCE LEADER obtuse branch at [facility] years ago Thoracic aortic aneurysm about 4.4 [...] Cardiovascular Fellow PGY-4 04/29/2021, 9:28 AM Attending Group Practice Pediatrician Addendum: I have reviewed and performed the history, physical, subjective, objective, assessment, and plan with the student/resident/fellow/EPIC AMBULATORY ANALYSTS and agree with the note. I performed the history and physical personally. I have made changes to the note above as needed. Await CTS recs Stop plavix Start ASA if okay with all Continue heparin drip Thank you for allowing me to participate in the care of this patient, please do not hesitate to call if you have any questions. Marcello Cole DO, CONCHIS, JOANNA RUIZ [employer] [facility] Images from the original note were not included. [facility] Occupational Therapy Not Seen Note DATE: 04/29/2021 NAME: Yoel Van : 1955 Patient not seen this date for Occupational Therapy due to: Other: await cardiothoracic surgery consult Next Scheduled Treatment: check back 04/30/2021 [facility] Neurology IN-PATIENT SERVICE [facility] HISTORY AND PHYSICAL EXAMINATION Date: 04/29/2021 Patient name: Yoel Van Date of admission: 04/24/2021 9:50 PM Account: [id number] Date of : 1955 PCP: Alec Pinzon MD Room: 1015/1015-01 Code Status: Full Code Chief Complaint: Chief [...] PO Take 150 mg by mouth Historical ProviderMD Carvedilol (COREG PO) Take 37.5 mg by mouth 2 times daily Historical Provider, gabapentin (NEURONTIN) 600 MG tablet Take 600 mg by mouth 2 times daily. Historical Provider, glipiZIDE (GLUCOTROL XL) 10 MG extended release tablet Take 10 mg by mouth daily Historical ProviderMD SITagliptin (JANUVIA) 100 MG tablet Take 100 mg by mouth daily Historical ProviderMD atorvastatin (LIPITOR) 40 MG tablet Take 40 mg by mouth daily Historical Provider, lisinopril (PRINIVIL;ZESTRIL) 40 MG tablet Take 40 mg by mouth daily Historical ProviderMD metFORMIN (GLUCOPHAGE) 1000 MG tablet Take 1,000 [...] C) Recent Labs 04/28/21 1142 04/28/21 1638 04/28/212 04/29/21 0800 POCGLU 190* 202* 182* 163* [...] Right achilles: 2+ Left achilles: 2+ Right director pharmacology: 2+ Left director pharmacology: 2+ Investigations: Laboratory Testing: Recent Results (from [...] 04/27/2021 NSTEMI (non-ST elevated myocardial infarction) ([facility]) [I21.4] 04/25/2021 Altered mental status [R41.82] Acute ischemic stroke ([facility]) [I63.9] 65 y.o. male who presents with [...] history and exam findings with the resident/ EXCEPTIONAL CHILDREN TEACHER ASSISTANT. I have seen and examined the patient and the burnett elements of the encounter have been performed by me. I agree with the assessment, plan and orders as documented by the resident or EXCEPTIONAL CHILDREN TEACHER ASSISTANT with changes made to the note. Briefly, [...] from the original note were not included. [facility] Internal Medicine Teaching Residency Program Inpatient Daily Progress Note Patient: Yoel Van Date of : 1955 Acct: [id number] Room: [address] [place] [address] Admit date: 04/24/2021 Today's date: 04/29/21 Number [...] ppx: Protonix PT/OT/SW- Onboard Discharge Planning: manager unit consulted, will follow up Gee Parnell MD Internal Medicine Resident, PGY-1 [facility]; [place], [place] 04/29/2021, 7:58 AM Patient seen and [...] imaging in the future Infection Control Recommendations: Albert precautions Discharge Planning: Patient will need Midline [...] Not Detected 04/25/2021 No results for input(s): VANCOTROUGH in the last 72 hours. Imaging Studies: No new imaging Cultures: Culture, Blood 1 [[id number]] Collected: 04/25/212032 Order Status: Completed Specimen: Blood Updated: 04/28/21918 Specimen Description .BLOOD Special Requests R ARM 1 ML Culture NO GROWTH 3 DAYS Culture, Blood 1 [[id number]] Collected: 04/25/212032 Order Status: Completed Specimen: Blood Updated: 04/28/21918 Specimen Description .BLOOD Special Requests L ARM 2 ML Culture NO GROWTH 3 DAYS COVID-19, Rapid [[id number]] Collected: 04/25/21 004 Order Status: Completed Specimen: Nasopharyngeal Swab Updated: 04/25/21 011 Specimen Description .NASOPHARYNGEAL SWAB SARS-CoV-2, Rapid Not [...] management decisions. Fact sheet for Healthcare Providers: https://www.fda.gov/media/164310/d ownload Fact sheet for Patients: https://www.fda.gov/media/446418/d ownload Methodology: Isothermal Nucleic Acid Amplification Medications: [...] [facility] Zandra Pink MD [employer] OFFICE: Thank you for allowing us to [...] original note were not included. Occupational Therapy [facility] Occupational Therapy Not Seen Note DATE: 04/28/2021 NAME: Yoel Van : 1955 Patient not seen this date for Occupational Therapy due to: Surgery/Procedure: cardiac cath Next Scheduled Treatment: 04/29 Echo completed in the echo lab Images from the original note were not included. [facility] [place] [employer] Pre-Procedure Conscious Sedation Data Pre Procedure Conscious Sedation Data: ASA Class: [] I [x] II [] III [] IV Mallampati Class: [] I [x] II [] III [] IV Jing Levy MD Fellow Cardiovascular Disease [facility] Images from the original note were not included. [employer] [place] [employer] Progress Note Date: 04/28/2021 Patient name: Yoel Van Date of admission: 04/24/2021 9:50 PM Date of : 1955 PCP: Alec Pinzon MD Reason for Admission: NSTEMI (non-ST elevated myocardial infarction) (HCC) [I21.4] Subjective: Clinical Changes /Abnormalities: Patient seen [...] chloride heparin (PORCINE) Infusion 15.78 Units/kg/hr (04/28/21 0448) CBC: Recent Labs 04/25/21 1329 04/27/21 0311 [...] 04/26/21 0023 CHOL 112 HDL 25* INR: No results [...] CAD s/p stents to RCA and circumflex, CUSTOMER EXPERIENCE LEADER obtuse branch at [employer] man years ago 3. Thoracic aortic aneurysm [...] elevated myocardial infarction) (HCC) Altered mental status Plan of Treatment: 1. NSTEMI with elevated troponin. [phone] Plan for cardiac cath today per Dr Dumont. I have discussed risks (including but not limited to vascular injury, infection, hematoma, contrast induced kidney dysfunction, CVA and PR), benefits, alternatives in detail. All questions answered. Patient agrees to proceed. labeling strategist update. 2. Awaiting ECHO with Bubble study. [...] Rest of care managed per Primary Team. [facility] [place] [employer]. [phone] Report given to Radha [facility] Neurology IN-PATIENT SERVICE [facility] HISTORY AND PHYSICAL EXAMINATION Date: 04/28/2021 Patient name: Yoel Van Date of admission: 04/24/2021 9:50 PM Account: [id number] Date of : 1955 PCP: Alec Pinzon MD Room: [address] [place] [address] Code Status: Full Code Chief Complaint: Chief [...] Right achilles: 2+ Left achilles: 2+ Right director pharmacology: 2+ Left director pharmacology: 2+ Investigations: Laboratory Testing: Recent Results (from [...] (HCC) [I21.4] 04/25/2021 Altered mental status [R41.82] Stroke ([facility]) [I63.9] 65 y.o. male who presents with [...] history and exam findings with the resident/ EXCEPTIONAL CHILDREN TEACHER ASSISTANT. I have seen and examined the patient and the burnett elements of the encounter have been performed by me. I agree with the assessment, plan and orders as documented by the resident or EXCEPTIONAL CHILDREN TEACHER ASSISTANT with changes made to the note. Briefly, [...] from the original note were not included. [facility] Internal Medicine Teaching Residency Program Inpatient Daily Progress Note Patient: Yoel Van Date of : 1955 Acct: [id number] Room: 1015/1015-01 Admit date: 04/24/2021 Today's date: 04/28/21 Number [...] chloride heparin (PORCINE) Infusion 15.78 Units/kg/hr (04/28/21 3168) PRN Medicationspotassium chloride, 40 mEq, PRN Or [...] 72 hours. APTT: Recent Labs 04/27/21 1443 04/27/21202504/28/21 0240 APTT 71.0* 55.7* 42.9* CARDIAC ENZYMES: [...] ppx: Protonix PT/OT/SW- Onboard Discharge Planning: manager unit consulted, will follow up Gee Parnell MD Internal Medicine Resident, PGY-1 [facility]; [place], [place] 04/28/2021, 11:27 AM Attending Physician Statement I have discussed the care of Yoel Bryant Rehan with the resident team. I have examined [...] from the original note were not included. [facility] Internal Medicine Teaching Residency Program Inpatient Daily Progress Note Patient: Yoel Van Date of : 1955 Acct: [id number] Room: 0542/0542-01 Admit date: 04/24/2021 Today's date: [...] Min PRN Diagnostic Labs: CBC: Recent Labs 04/24/21 2221 04/25/21 1329 04/27/21 0311 WBC 10.0 6.7 7.9 RBC 4.85 4.49 4.22 HGB 14.5 13.8 12.9* HCT 44.0 41.8 38.2* MCV 90.7 93.1 90.5 RDW 14.0 14.0 13.9 PLT 249 195 223 BMP: Recent Labs 04/26/21 0023 04/27/21 0311 04/27/21 1150 NA 137 136 137 K [...] been improving NSTEMI (non-ST elevated myocardial infarction) ([facility]) Plan: Troponins 180 --> 175 --> 187 [...] ppx: Protonix PT/OT/SW- Onboard Discharge Planning: manager unit consulted, will follow up Gee Dewey MD Internal Medicine Resident, PGY-2 [facility]; [place], [place] 04/27/2021, 1:38 PM Attending Physician Statement [...] deficit. The risk of intracranial hemorrhage versus PR was discussed with the patient in regards [...] Right achilles: 2+ Left achilles: 2+ Right director pharmacology: 2+ Left director pharmacology: 2+ Lab Results: CBC: Recent Labs 04/24/21 2221 04/25/21 1329 04/27/21 0311 WBC 10.0 6.7 7.9 HGB 14.5 13.8 12.9* PLT 249 195 223 BMP: Recent Labs 04/24/21 2221 04/26/21 0023 04/27/21 0311 NA 134* 137 136 K 3.7 3.6* 3.5* CL 99 102 103 CO2 19* 23 22 BUN 18 9 11 CREATININE 0.82 0.53* 0.80 GLUCOSE 130* 249* 189* Lab Results Component Value Date CHOL 112 04/26/2021 LDLCHOLESTEROL 51 04/26/2021 HDL 25 (L) 04/26/2021 TRIG 181 (H) 04/26/2021 TSH 1.04 04/25/2021 INR 1.0 04/24/2021 LABA1C 7.5 (H) 04/25/2021 [id number] 594 04/25/2021 No results found for: PHENYTOIN, [...] to follow Fanta Levy MD Attending Neurologist [facility] Images from the original note were not included. [employer] [employer] Progress Note Date: 04/27/2021 Patient name: Yoel Van Date of admission: 04/24/2021 9:50 PM Date of : 1955 PCP: Alec Pinzon MD Reason for Admission: NSTEMI (non-ST elevated myocardial infarction) ([facility]) [I21.4] Subjective: Clinical Changes /Abnormalities: Patient seen [...] Labs 04/26/2122 CHOL 112 HDL 25* INR: Recent Labs 04/24/212220 INR 1.0 DIAGNOSTIC DATA EKG 04/26/2021 Normal [...] CAD s/p stents to RCA and circumflex, CUSTOMER EXPERIENCE LEADER obtuse branch at [employer] man years ago 3. Thoracic aortic aneurysm [...] elevated myocardial infarction) (HCC) Altered mental status Plan of Treatment: 1. NSTEMI with elevated troponin. [phone] Plan for cardiac cath on Wednesday per [...] neurology will discuss with cardiology tomorrow. [place] [employer]. [phone] Paged Neurology at 22:19 regarding heparin drip and whether or not patient is appropriate for heparin boluses or just adjust medication through infusion. Messaged with Leonardo Jeter MD who deferred to Primary team. I then messaged the on-call Internal Medicine Curriculum Coach who deferred to Cardiology. I sent Cardiology [...] 109/63 109/63 Pulse: 91 78 83 Resp: 19 Temp: 98.8 F (37.1 C) 97.8 F (36.6 C) 97.8 F (36.6 C) 96.8 F (36 C) TempSrc: Oral Oral Oral SpO2: 96% 96% 94% Weight: Height: Objective: Gen: Resting comfortably, no acute distress CV: RRR, pulses 2+ Resp: Symmetric chest rise, no accessory muscle use, normal respirations Neuro: Difficult coordination with slignm-eq-nssu. No arm drift. BUE and BLE with [...] patients neurologic status Jair Jaeger DO, PGY-5 [facility] Orthopedic Surgery 1:33 PM 04/26/21 Associated [...] intact to light touch Does well with hxhebu-ph-xhol testing. Gait testing deferred. 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 Physician Progress Note PATIENT: YOEL VAN CSN #: [id number] : 1955 ADMIT DATE: 04/24/2021 9:50 PM [...] signed by: GEE PARNELL 04/26/2021 8:22 AM [facility] Neurology IN-PATIENT SERVICE [facility] HISTORY AND PHYSICAL EXAMINATION Date: 04/26/2021 Patient name: Yoel Van Date of admission: 04/24/2021 9:50 PM Account: [id number] Date of : 1955 PCP: Alec Pinzon MD Room: [address] [place] [address] Code Status: Full Code Chief Complaint: Chief [...] FOUR TIMES DAILY NEEDED (TRANSDERMALLY) 12/07/19 Historical ProviderMD clopidogrel (PLAVIX) 75 MG tablet clopidogrel 75 mg tablet Historical Provider, pioglitazone (ACTOS) 30 MG tablet Take 30 mg by mouth daily Historical ProviderMD AMITRIPTYLINE HCL PO Take 150 mg by mouth Historical ProviderMD Carvedilol (COREG PO) Take 37.5 mg by [...] C), Max:98.8 F (37.1 C) Recent Labs 04/24/21 2157 04/25/21 0237 POCGLU 140* 224* Intake/Output Summary [...] Right achilles: 2+ Left achilles: 2+ Right director pharmacology: 2+ Left director pharmacology: 2+ Investigations: Laboratory Testing: Recent Results (from [...] NEGATIVE Ketones, Urine TRACE (A) NEGATIVE Specific [place], UA 1.012 1.005 - 1.030 Urine Hgb [...] ms QTc Calculation (Bazett) 462 ms P Claridge 48 degrees R Claridge -20 degrees T Claridge 89 degrees Assessment : Primary Problem <principal [...] to follow Fanta Levy MD Attending Neurologist [facility] Images from the original note were not included. [facility] Internal Medicine Teaching Residency Program Inpatient Daily Progress Note Patient: Yoel Van Date of : 1955 Acct: [id number] Room: 0542/0542-01 Admit date: 04/24/2021 Today's date: 04/26/21 Number [...] sodium chloride heparin (PORCINE) Infusion 13.783 Units/kg/hr (04/25/21 8657) PRN Medicationslabetalol, 20 mg, Q4H PRN sodium [...] 14.0 PLT 249 195 BMP: Recent Labs 04/24/217 04/24/21222004/26/21 0023 NA -- 134* 137 K -- [...] MRI today NSTEMI (non-ST elevated myocardial infarction) ([facility]) Plan: Troponins 180 --> 175 --> 187 [...] GI ppx: Protonix PT/OT/SW Discharge Planning: manager unit consulted, will follow up Gee Parnell MD Internal Medicine Resident, PGY-1 [facility]; [place], [place] 04/26/2021, 3:10 AM Attending Physician Statement [...] noticed. MRI pending. It was reported to advertising copywriter that MRI's were attempted earlier in the [...] at this time. documented in this encounter [employer] Phone: 05-02-2021 Hospital Discharge instructions Ana Chery MD - 05/02/2021 5:19 PM EDT Continuity of Care Form Patient Name: Yoel Van : 1955 Admit date: 04/24/2021 Discharge date: Code Status Order: Full Code Advance Directives: Admitting Physician: Ning Wallace MD PCP: Alec Pinzon MD Discharging Nurse: Discharging Hospital Unit/Room#: Discharging Unit Phone Number: Emergency Contact: Extended Emergency Contact Information Primary Emergency Contact: Jessica Garcia Mobile Relation: Spouse Preferred language: Vietnamese Student Outreach Coordinator needed? No Past Surgical History: Past Surgical History: Procedure Laterality Date CARDIAC SURGERY ROTATOR CUFF REPAIR ROTATOR CUFF REPAIR Immunization History: Immunization History Administered Date(s) Administered Influenza, Quadv, IM, PF (6 mo and older Fluzone, Flulaval, Fluarix, and 3 yrs and older Afluria) 10/31/2019 Active Problems: Patient Active Problem List Diagnosis Code Acute cerebrovascular accident (CVA) (HCC) I63.9 Intraparenchymal hemorrhage of brain (HCC) I61.9 Acute ischemic stroke (HCC) I63.9 Memory impairment R41.3 NSTEMI (non-ST elevated myocardial infarction) ([facility]) I21.4 Altered mental status R41.82 DM (diabetes mellitus), type 2 ([facility]) E11.9 Discitis of lumbosacral region M46.47 Hypokalemia [...] (101.2 kg) Mental Status: {IP PT MENTAL STATUS:} IV Access: { SYDNEE IV ACCESS:157765869} Nursing Mobility/ADLs: Walking {CHP DME ADLs:822361382} Transfer {CHP DME ADLs:109201410} Bathing {CHP DME ADLs:071746488} Dressing {CHP DME ADLs:655980655} Toileting {P DME ADLs:447548620} Feeding {P DME ADLs:323149802} Stove Installer {P DME ADLs:806026541} Med Delivery { SYDNEE MED Delivery:706607621} Wound Care Documentation and Therapy: Elimination: Continence: Bowel: {YES / NO:} Bladder: {YES / NO:} Urinary Catheter: {Urinary Catheter:365160932} Colostomy/Ileostomy/Ileal Conduit: {YES / NO:} Date of Last BM: Intake/Output Summary (Last 24 hours) at 05/02/2021 1719 Last data filed at 05/02/2021 0736 Gross per 24 hour Intake Output 1600 ml Net -1600 ml I/O last 3 completed shifts: In: 44.4 [I.V.:44.4] Out: 2390 [Urine:2390] Safety Concerns: { SYDNEE Safety Concerns:020074057} Impairments/Disabilities: { SYDNEE Impairments/Disabilities:081332068 } Nutrition Therapy: Current Nutrition Therapy: {[facility] Diet List:222613217} Routes of Feeding: {[facility] DME Other Feedings:322784299} Liquids: {Motion Graphics Designer liquid thickness:91554} Daily Fluid Restriction: {[facility] DME Yes amt example:560162539} Last Modified Barium Swallow with Video (Video Swallowing Test): {Done Not Done Date:} Treatments at the Time of Hospital Discharge: Respiratory Treatments: Oxygen Therapy: {Therapy; copd oxygen:90673} Ventilator: {[facility] Vent List:184633948} Rehab Therapies: Physical Therapy and Occupational Therapy Weight Bearing Status/Restrictions: {[facility] Weight Bearin} Other Medical Equipment (for information only, NOT a DME order): {EQUIPMENT:433888410} Other Treatments: penitentiary eval and treat Patient's personal belongings (please select all that are sent with patient): {[facility] DME Belongings:142427507} RN SIGNATURE: {Esignature:863841503} CASE MANAGEMENT/SOCIAL WORK SECTION Inpatient Status Date:04-25-2021 Readmission Risk Assessment Score: Readmission Risk Risk of Unplanned Readmission: 17 Discharging to Facility/ Agency Name: Address: Phone: Fax: Dialysis Facility (if applicable) Name: Address: Dialysis Schedule: Phone: Fax: Forest Technician/Painting Instructor signature: {Esignature:033874362} PHYSICIAN SECTION Prognosis: Good Condition at Discharge: Stable Rehab Potential (if transferring to Rehab): {Prognosis:9749546087} Recommended Labs or Other Treatments After Discharge: [...] H&P: No change in H&P PHYSICIAN SIGNATURE: {Esignature:126489424} na Ansari MD - 05/03/2021 1. Follow up cardiology in 2 weeks 2. Take medications as prescribed The following attachments cannot be sent through Care Everywhere.PCI (Percutaneous Coronary Intervention): Post-op (Vietnamese)documented in this encounter [employer] Phone: 10-31-2019 History of Present illness Narrative Physical Therapy Facility/Department: [address] Initial Assessment NAME: Yoel Van : 1955 Date of Service: 10/31/2019 [employer] LUE/LLE weakness, LKW 10/27/2019 HPI The patient is a 64 y.o. male who presents as a transfer from [place] for concern for hemorrhage in the basal [...] using RW, supervises) Transfer Assistance: Independent Active Appellate Court Clerk: No Patient's Appellate Court Clerk Info: Pt hasn't driven since CVA in August, perfoms all Mode of Transportation: Family Occupation: On disability Leisure & Hobbies: Dog, fishing Additional Comments: Spouse is home all the time and is able to assist him as needed. Cognition Cognition Overall Cognitive Status: WFL Objective Observation/Palpation Posture: Good AROM RLE (degrees) RLE AROM: WFL AROM LLE (degrees) LLE AROM : WFL AROM RUE (degrees) RUE AROM : WFL AROM LUE (degrees) LUE AROM : Exceptions LUE General AROM: Shoulder flexion limited to 100 degrees Strength RLE Strength RLE: WFL Comment: Grossly 4+/5 Strength LLE Strength LLE: WFL Comment: Grossly 4+/5 Strength RUE Strength RUE: WFL Comment: Grossly 4+/5 Strength LUE Strength LUE: WFL Comment: Grossly 4-/5 Tone RLE RLE Tone: Normotonic Tone LLE LLE Tone: Normotonic Motor Control Gross Motor?: WFL Coordination Rapid Alternating Movements: Normal Finger to Nose: Dysmetric(Dysmetria noted when using left hand; right hand normal) Sensation Overall Sensation Status: WFL Bed mobility Supine to Sit: Modified independent(HOB [...] 21 Timed Code Treatment Minutes: 12 Minutes LCUY Leiva This treatment/evaluation completed by signing SPT. [...] using RW, supervises) Transfer Assistance: Independent Active Appellate Court Clerk: No Patient's Appellate Court Clerk Info: Pt hasn't driven since CVA in [...] Comment: Pt states being at baseline this date Bed mobility Supine to Sit: Modified independent Sit to Supine: Modified independent Scooting: Modified independent Comment: Pt supine in bed upon arrival/exit this date with PT entering room Transfers Sit to stand: Stand by assistance Stand to sit: Supervision Cognition Overall Cognitive Status: WF Cognition Comment: Slow to respond at times, likely pt's baseline, answering for pt often Sensation Overall Sensation Status: [facility] LUE AROM (degrees) LUE AROM : Exceptions L Shoulder Flexion 0-180: Limited to 90 degrees, baseline rotator cuff issues L Elbow Flexion 0-145: WFL's L Elbow Extension 145-0: WFL's RUE AROM (degrees) RUE AROM : WFL LUE Strength Gross LUE Strength: Exceptions to WF L Shoulder Flex: 3-/5(At baseline) L Elbow Flex: 4+/5 L Elbow Ext: 4/5(Weaker as a result of August' CVA per pt) L Hand General: 4+/5 RUE Strength Gross RUE Strength: WFL R Hand General: 5/5 AM-[facility] Inpatient Daily Activity Raw Score: 20 (10/31/191252) AM-[facility] Inpatient ADL T-Scale Score : 42.03 (10/31/191252) ADL Inpatient CMS 0-100% Score: 38.32 (10/31/191252) ADL Inpatient [facility] G-Code Modifier : CJ (10/31/191252) Goals Short term goals Time Frame for Short term goals: OT eval and d/c d/t pt at baseline Therapy Time Individual Concurrent Group Co-treatment Time In 1100 Time Out 1130 Minutes 30 SHANI Vásquez/L documented in this encounter [employer] Phone: 10-31-2019 Hospital Discharge instructions Barbara Perea, DO - 10/31/2019 Please do not take your aspirin or Plavix until after being seen in follow-up with Dr. Aguiar of neurology on 11/07/2019. Please have your CT head done next 10/30/2019. documented in this encounter [employer] Phone: Evaluation note Diagnosis Altered mental status, unspecified altered mental status type- Primary NSTEMI (non-ST elevated myocardial infarction) ([facility]) Acute myocardial infarction, subendocardial infarction, episode of [...] Coronary atherosclerosis of unspecified type of vessel, [place] or graft S/P PTCA/FLORESITA to mid LCX (Dr Bojorquez) Postsurgical percutaneous transluminal coronary angioplasty status documented in this encounter [employer] Phone: evaluation note* Diagnosis Intraparenchymal hemorrhage of brain (HCC)- Primary Intracerebral hemorrhage Acute cerebrovascular accident (CVA) (HCC) documented in this encounter [employer] Phone: evaluation note* Diagnosis Intraparenchymal hemorrhage of brain (HCC) Intracerebral hemorrhage documented in this encounter [employer] Phone: evaluation note* Diagnosis Type 2 diabetes mellitus with diabetic polyneuropathy (CMS/HCC) documented in this encounter [facility] HealthcareEvaluation note* Diagnosis Type 2 diabetes mellitus with hyperglycemia, without long-term current use of insulin (CMS/HCC)- Primary Benign essential hypertension ([facility]/HCC) Essential hypertension, benign Type 2 diabetes mellitus with diabetic polyneuropathy, without long-term current use of insulin ([facility]/HCC) Thoracic aortic aneurysm without rupture, unspecified part [...] diabetic polyneuropathy (CMS/HCC) documented in this encounter [facility] HealthcareEvaluation note* Diagnosis Type 2 diabetes mellitus [...] Esophageal reflux documented in this encounter [facility] HealthcareEvaluation note* Diagnosis Type 2 diabetes mellitus [...] Gastroesophageal reflux disease without esophagitis Esophageal reflux Type 2 diabetes mellitus with diabetic polyneuropathy (CMS/HCC) documented in this encounter [facility] HealthcareEvaluation note* Diagnosis Type 2 diabetes mellitus [...] Gastroesophageal reflux disease without esophagitis Esophageal reflux Pneumonia due to infectious organism, unspecified laterality, unspecified part of lung- Primary Muscle spasm of back documented in this encounter [facility] HealthcareEvaluation note* Diagnosis Type 2 diabetes mellitus with diabetic polyneuropathy (HCC) (CMS/HCC) documented in this encounter [facility] HealthcareEvaluation note* Diagnosis Type 2 diabetes mellitus with hyperglycemia, without long-term current use of insulin (CMS/HCC)- Primary Benign essential hypertension ([facility]/HCC) Essential hypertension, benign Type 2 diabetes mellitus with diabetic polyneuropathy, without long-term current use of insulin ([facility]/HCC) Thoracic aortic aneurysm without rupture, unspecified part ([facility]/HCC) Insomnia, unspecified type CAD, multiple vessel ([facility]/HCC) Gastroesophageal reflux disease without esophagitis Esophageal reflux Left kidney mass- Primary Unspecified disorder of kidney and ureter Type 2 diabetes mellitus with hyperglycemia, without long-term current use of insulin ([facility] [facility] Benign essential hypertension ([facility]) Essential hypertension, benign Type 2 diabetes mellitus with hyperglycemia, without long-term current use of insulin ([facility]/HCC)- Primary Benign essential hypertension (CMS/HCC) Essential hypertension, benign Type 2 diabetes mellitus with diabetic polyneuropathy, without long-term current use of insulin ([facility]/HCC) Renal cell carcinoma of left kidney ([facility]/HCC) Colon cancer screening Special screening for malignant neoplasms, colon Primary insomnia Persistent disorder of initiating or maintaining sleep CKD stage 3b, GFR 30-44 ml/min ([facility]/HCC) PVD (peripheral vascular disease) ([facility]/HCC) Unspecified peripheral vascular disease Type 2 diabetes mellitus with stage 3b chronic kidney disease, without long-term current use of insulin (HCC) ([facility]) Hemiplegia and hemiparesis following cerebral infarction affecting right dominant side (I69.351) Type 2 diabetes mellitus with hyperglycemia, without long-term current use of insulin (CMS/HCC)- Primary Adrenal insufficiency (CMS/HCC) Glucocorticoid deficiency Benign essential hypertension (CMS/HCC) Essential hypertension, benign Type 2 diabetes mellitus with diabetic polyneuropathy, without long-term current use of insulin ([facility]/HCC) 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 (CMS/HCC) Primary insomnia Persistent disorder of initiating or maintaining sleep Gastroesophageal reflux disease without esophagitis Esophageal reflux Pneumonia due to infectious organism, unspecified laterality, unspecified part of lung- Primary Muscle spasm of back Type 2 diabetes mellitus with diabetic polyneuropathy (CMS/HCC) documented in this encounter [facility] Summary Purpose Family History No Family History Records FoundNo Family History Records FoundNo Family History Records FoundNo Family History Records FoundNo Family History Records FoundNo Family History Records FoundNo Family History Records Found Advance Directives No Advanced Directives Records FoundDocuments on File Type Date Recorded Patient Stummel Selector Expl anation Advance Directives and Living Will Power of Finishing Range Supervisor Latest Code Status on File Code Status Date Activated Date Inactivated Comments Full Code 10/31/2019 10:09 AM 10/31/2019 6:29 PM Documents on File Type Date Recorded Patient Stummel Selector Expl anation Advance Directives and Living Will Power of Finishing Range Supervisor Latest Code Status on File Code Status Date Activated Date Inactivated Comments Full Code 10/31/2019 10:09 AM 10/31/2019 6:29 PM Documents on File Type Date Recorded Patient Stummel Selector Expl anation ACP-Advance Directive ACP-Power of Finishing Range Supervisor Latest Code Status on File Code [...] mechanism (HCC) Procedures CT HEAD WO CONTRAST CT BRAIN W/O CONTRAST Sabrina Aguiar Sa, MD [address] [address] [facility] [address] [place] [address] Status Reason Specialty Diagnoses / Procedures Referre d By Contact Referred To Contact Closed Diagnoses Cerebrovascular accident (CVA) due to embolism of precerebral artery (HCC) Memory impairment Procedures EEG awake and asleep Andreia Ramos MD [address] [address] Status Reason Specialty Diagnoses / Procedures Referre d By Contact Referred To Contact Closed Cardiology Diagnoses 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) Cerebrovascular accident (CVA) due to embolism of precerebral artery (HCC) Procedures ECHO Complete 2D W Doppler W Color Andreia Ramos MD [address] [address] Status Reason Specialty Diagnoses / Procedures Referre d By Contact Referred To Contact Open Radiology Diagnoses Intraparenchymal hemorrhage of brain (HCC) Procedures CT HEAD WO CONTRAST CT HEAD WO CONTRAST Barbara Perea, [address] [place] [address] Status Reason Specialty Diagnoses / Procedures Referre d By Contact Referred To Contact Closed Radiology Diagnoses Intraparenchymal hemorrhage of brain (HCC) Procedures CT HEAD WO CONTRAST CT HEAD WO CONTRAST Barbara Perea DO [facility] [place] [address] Assessments Diagnosis Cerebrovascular accident (CVA), unspecified mechanism [...] underlying condition with diabetic neuropathy, unspecified whether exterminator termite insulin use (HCC) Cerebrovascular accident (CVA) due to embolism of precerebral artery (HCC) Memory impairment Memory loss Diagnosis 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) Cerebrovascular accident (CVA) due to embolism of precerebral artery (HCC) History of Present Illness * Yoselyn Pedro - 05/08/2020 10:45 AM EDT 22g IV inserted Jose White by advertising copywriter, used for bubble study documented in this encounter Additional Source Comments (unrecognized sect ion and content) No Status Records FoundNo Status Records FoundNo Status Records FoundNo Status Records FoundNo Status Records FoundNo Status Records FoundNo Status Records Found INFORMATION SOURCE (unrecogn ized section and content) DATE CREATED AUTHOR 04/27/2018 [facility] DATE CREATED AUTHOR AUTHOR'S ORGANIZ ATION 05/16/2020 [facility] DATE CREATED AUTHOR AUTHOR'S ORGANIZ ATION 05/11/2021 [facility] DATE CREATED AUTHOR AUTHOR'S ORGANIZ ATION 01/20/2023 [facility] DATE CREATED AUTHOR AUTHOR'S ORGANIZ ATION 10/18/2023 [facility] DATE CREATED AUTHOR AUTHOR'S ORGANIZ ATION 09/29/2024 [facility] DATE CREATED AUTHOR AUTHOR'S ORGANIZ ATION 10/27/2024 [facility] Reason for Visit (unrecogniz ed section and content) Status Reason Specialty Diagnoses / Procedures Referre d By Contact Referred To Contact Closed Radiology Diagnoses Cerebrovascular accident (CVA), unspecified mechanism (HCC) Procedures CT HEAD WO CONTRAST HC CT BRAIN W/O CONTRAST Sabrina Aguiar Sa, MD [address] [place] [id number] [facility] [address] [place] [address] Status Reason Specialty Diagnoses / Procedures Referre d By Contact Referred To Contact Closed Diagnoses Cerebrovascular accident (CVA) due to embolism of precerebral artery (HCC) Memory impairment Procedures EEG awake and asleep Andreia Ramos MD [address] [place] [address] Status Reason Specialty Diagnoses / Procedures Referre d By Contact Referred To Contact Closed Cardiology Diagnoses 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) Cerebrovascular accident (CVA) due to embolism of precerebral artery (HCC) Procedures ECHO Complete 2D W Doppler W Color Andreia Ramos MD [address] [place] [address] Reason Comments Altered Mental Status Status Reason Specialty Diagnoses / Procedures Referre d By Contact Referred To Contact [facility] Reason Comments Cerebrovascular Accident tx from dl w Status Reason Specialty Diagnoses / Procedures Re ferred By Contact Referred To Contact Diagnoses Acute cerebrovascular accident (CVA) ([facility]) Bennie Bosch MD [address] [facility] [address] [place] [address] [facility] Status Reason Specialty Diagnoses / Procedures Referre d By Contact Referred To Contact Closed Radiology Diagnoses Intraparenchymal hemorrhage of brain ([facility]) Procedures CT HEAD WO CONTRAST CT HEAD WO CONTRAST Barbara Perea DO [address] [place] [address] Reason Onset Date Comments Med Refill 07/26/2024 Reason Onset Date Comments Med Refill 08/22/2024 Reason Comments Follow-up 6 m Reason Onset Date Comments Med Refill 09/18/2024 Reason Comments Follow-up Tbh er f/u Reason Onset Date Comments Med Refill 06/28/2024 Reason Onset Date Comments Med Refill 10/16/2024 Ordered Prescriptions (unrec ognized section and content) [...] Garcia RN) 2125 (Given - Provider: Alexandr Nicholson, RN) 0900 (Due) carvedilol (COREG) tablet 12.5 [...] RN) 0743 (Given - Provider: Dasia Solis RN)212 (Given - Provider: Alexandr Nicholson RN) 0900 (Due)2100 (Due) insulin lispro (HUMALOG) injection vial 0-12 Units 0-12 Units, Subcutaneous, 3 TIMES DAILY WITH MEALS, First dose on Wed04/27/21 at 1700, Medium Dose Corrective Algorithm Glucose: Dose: If <139 No Insulin 140-199 2 Units 200-249 4 Units 250-299 6 Units 300-349 8 Units 350-400 10 Units Above 400 12 Units 0932 (Given - Provider: Deanne Garcia RN)1221 (Given - Provider: Deanne Garcia RN)1616 (Given [...] 0-6 Units, Subcutaneous, NIGHTLY, First dose on Wed04/27/21 at 2100, If continuous tube feedings/TPN/NPO, give correction dose based on result, no reduction in dose. If eating or bolus tube feeding: Medium Dose Corrective Algorithm Glucose: Dose: If <139 No Insulin 140-199 1 Unit 200-249 2 Units 250-299 3 Units 300-349 4 Units 350-400 5 Units Above 400 6 Units 2042 (Given - Provider: Nesha Victor RN) 2125 (Given - Provider: Alexandr Nicholson RN) 2100 (Due) lisinopril (PRINIVIL;ZESTRIL) tablet 40 [...] 0743 (Patch Removed - Provider: Dasia Solis RN)07 (Patch Applied - Provider: Dasia Solis RN) 07 (Due: Patch Removed - Provider: Dasia Solis RN)899 (Due) pantoprazole (PROTONIX) tablet 40 mg 40 mg, Oral, NIGHTLY, First dose on Wed04/25/21 at 2245, Do not crush or break. 2041 (Given - Provider: Nesha Victor RN) 2124 (Given - Provider: Alexandr Nicholson, RN) 2099 (Due) sodium chloride flush 0.9 % injection [...] Other - Comment: duplicate)2043 (Given - Provider: Nseha Victor RN) 07 (Not Given - Provider: Dasia Solis RN - Reason: IV Fluid Infusing)2144 (Given - Provider: Alexandr Nicholson RN) 899 (Due)2100 (Due) sodium chloride flush 0.9 % [...] or Central Line = 20 mL/lumen, Recovery(Cath) 09 (Given - Provider: Deanne Garcia RN)2041 (Given - Provider: Nesha Victor RN) 07 (Given - Provider: aDsia Solis RN)2125 (Given - Provider: Alexandr Nicholson RN) 899 (Due)2099 (Due) sodium chloride flush 0.9 % injection [...] 2124 (Given - Provider: Alexandr Nicholson RN) 899 (Due)2099 (Due) traZODone (DESYREL) tablet 200 mg [...] two consecutive times, check aPTT once daily. 44 (New Bag - Provider: Nesha Victor RN)2033 (Rate/Dose Verify - Provider: Nesha Victor RN) 0 (New Bag - Provider: Nesha Victor RN) [...] to tolerate oral tablet. [facility] 3.1 to 3.9 40 mEq [...]
Care Teams (unrecognized sec tion and content) Principal Programmer Relationship Specialty Start Date End Date Alec Pinzon MD [address] [place] [phone] PCP - General [facility] Medicine 11/17/23 Principal Programmer Relationship Specialty Start Date End Date Alec Pinzon MD [address] [place] [phone] PCP - [facility] Medicine 11/17/23 Principal Programmer Relationship Specialty Start Date End Date Alec Pinzon MD [address] [place] [phone] PCP - General [facility] Medicine 11/17/23 Principal Programmer Relationship Specialty Start Date End Date Alec Pinzon MD [address] [place] [phone] PCP - General [facility] Medicine 11/17/23 Principal Programmer Relationship Specialty Start Date End Date Alec Pinzon MD [address] [place] [phone] PCP - General Family Medicine 11/17/23 Principal Programmer Relationship Specialty Start Date End Date Alec Pinzon MD [address] [place] [phone] PCP - [facility] Medicine 11/17/23 Principal Programmer Relationship Specialty Start Date End Date Alec Pinzon MD [address] [place] [phone] PCP - [facility] 11/17/23 Principal Programmer Relationship Specialty Start Date End Date Alec Pinzon MD [address] [place] [phone] PCP - [facility] 11/17/23 Principal Programmer Relationship Specialty Start Date End Date lAec Pinzon MD [address] [place] [phone] PCP - General Family [facility] 11/17/23 FOR RECORDS PERTAINING TO PATIENTS WHO [...] BE BASED ON THE PRIMARY CLINICAL RECORDS. [facility]. provides no warranty or guarantee of the accuracy or completeness of information in this document.
[2024-11-02 10:45] LABS: Basophils Percent Auto 0.3 % (0.2-2.0); Eosinophils Absolute Auto 0.1 10^3/uL (0.0-0.7); Eosinophils Percent Auto 0.7 % (0.9-7.0); Hematocrit 42.2 % (42.0-54.0); Hemoglobin 13.9 g/dL (14.0-18.0); Immature Granulocytes Abs Auto 0.02 10^3/uL (0.00-0.03); Immature Granulocytes Pct Auto 0.2 % (0.0-0.5); Lymphocytes Absolute Auto 0.7 10^3/uL (1.2-3.8); Lymphocytes Percent Auto 7.2 % (20.5-60.0); Mean Corpuscular HGB Conc 32.9 g/dL (29.9-35.2); Mean Corpuscular Hemoglobin 30.1 pg (25.9-34.0); Mean Corpuscular Volume 91.3 fL (80.0-94.0); Mean Platelet Volume 9.5 fL (9.5-13.5); Monocytes Absolute Auto 0.3 10^3/uL (0.3-0.8); Monocytes Percent Auto 3.3 % (1.7-12.0); Neutrophils Absolute Auto 8.5 10^3/uL (1.4-6.5); Neutrophils Percent Auto 88.3 % (43.0-75.0); Platelet Count 216 10^3/uL (150-450); Red Blood Count 4.62 10^6/uL (4.70-6.10); White Blood Count 9.7 10^3/uL (4.0-11.0)
[2024-11-02 11:09] LABS: Influenza Virus A Antigen Negative; Influenza Virus B Antigen Negative; Internal Control Within Normal Limits; Respiratory Syncytial Virus Not Detected (NOT DETECTE); SARS-CoV-2 Ag NEGATIVE (NEGATIVE)
[2024-11-02 11:17] LABS: Alanine Aminotransferase 25 U/L (16-63); Albumin Globulin Ratio 0.7; Albumin Level 3.2 g/dL (3.4-5.0); Alkaline Phosphatase 119 U/L (46-116); Anion Gap 13.9; Aspartate Amino Transferase 25 U/L (15-37); BUN Creatinine Ratio 11.8; Bilirubin Total 0.8 mg/dL (0.2-1.0); Calcium 9.6 mg/dL (8.5-10.1); Carbon Dioxide 26.9 mmol/L (21.0-32.0); Chloride 107 mmol/L (98-107); Estimated GFR (African America 35 (>=60 mL/min/1.73m^2); Estimated GFR (Non-African Ame 29 (>=60 mL/min/1.73m^2); Globulin 4.4 g/dL; Glucose 174 mg/dL (74-106); Potassium 3.8 mmol/L (3.5-5.1); Sodium 144 mmol/L (136-145); Total Protein 7.6 g/dL (6.4-8.2); Troponin I High Sensitivity 6.5 pg/mL (4.0-76.1)
[2024-11-02 11:26] LABS: Lactate/Lactic Acid 2.2 mmol/L (0.4-2.0)
--- NOTE | 2024-11-02 11:50 | ED_ITS ---
HPI HPI - General Adult General Chief complaint: Weakness Stated complaint: FEVER POSSIBLE STROKE WEAKNESS Time Seen by Provider: 11/02/24 10:27 Source: patient Mode of arrival: ambulance History of Present Illness HPI narrative: The patient have a history of pituitary insufficiency according to his apparently woke up this morning with a cough and fever. With generalized weakness as well there was no symptoms yesterday and he was having a normal appetite Patient right now is complaining generalized weakness by the arrival of the EMS they found that his blood pressure was 50/30 in addition his pulse ox was 88% Related Data Home Medications ?Medication ?Instructions ?Recorded ?Confirmed amitriptyline 150 mg tablet 150 mg PO .qhs 09/16/24 09/16/24 aspirin 81 mg tablet,delayed 81 mg PO DAILY 09/16/24 09/16/24 release (Adult Low Dose Aspirin) atorvastatin 40 mg tablet 40 mg PO .qhs 09/16/24 09/16/24 clopidogrel 75 mg tablet 75 mg PO .qd 09/16/24 09/16/24 dapagliflozin propanediol 10 mg 10 mg PO .qd 09/16/24 09/16/24 tablet (Farxiga) gabapentin 100 mg capsule 100 mg PO BID 09/16/24 09/16/24 glipizide 10 mg tablet 10 mg PO BID 09/16/24 09/16/24 hydrocortisone 10 mg tablet 10 mg PO Q12H 09/16/24 09/16/24 levothyroxine 50 mcg tablet 50 mcg PO .qd 09/16/24 09/16/24 metoprolol tartrate 25 mg tablet 25 mg PO BID 09/16/24 09/16/24 oxycodone-acetaminophen 5 mg-325 1 tab PO Q6H PRN severe pain 09/16/24 09/16/24 mg tablet (scale score 7-10) pantoprazole 40 mg tablet,delayed 80 mg PO .night 09/16/24 09/16/24 release sodium bicarbonate 650 mg tablet 650 mg PO BID 09/16/24 09/16/24 Previous Rx's ?Medication ?Instructions ?Recorded doxycycline hyclate 100 mg tablet 100 mg PO BID 7 days #14 tabs 09/17/24 levofloxacin 750 mg tablet 750 mg PO .q48 8 days #4 tabs 09/17/24 Allergies Allergy/AdvReac Type Severity Reaction Status Date / Time No Known Drug Allergies Allergy Verified 11/02/24 10:28 Opioid HPI Opioid Management Most Recent Opioid Data: Last Pain Scale 0 11/02/24 10:56 11/02/24 Last ED Pain Assessment 11/02/24 10:56 Last ORT Total Score 0 09/16/24 14:51 09/16/24 Last ORT Risk Category Low Risk 09/16/24 14:51 09/16/24 Review of Systems ROS Status of ROS 10 or more systems reviewed and unremark able except as noted in history and below [facility] Medical History (Updated 11/02/24 @ 11:48 by Kate Arias MD) Pneumonia ?J18.9 - Pneumonia, unspecified organism (ICD-10) Type 2 diabetes mellitus ?E11.9 - Type 2 diabetes mellitus without complications (ICD-10) Maintenance antineoplastic immunotherapy ?Z51.12 - Encounter for antineoplastic immunotherapy (ICD-10) 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 ?E27.3 - Drug-induced adrenocortical insufficiency (ICD-10) Chronic steroid use Hypothyroidism ?E03.9 - Hypothyroidism, unspecified (ICD-10) HLD (hyperlipidemia) ?E78.5 - Hyperlipidemia, unspecified (ICD-10) CAD (coronary artery disease) ?I25.10 - Atherosclerotic heart disease of [place] coronary artery without angina pectoris (ICD-10) CKD stage 3b, GFR 30-44 ml/min ?N18.32 - Chronic kidney disease, stage 3b (ICD-10) H/O renal cell carcinoma ?Z85.528 - Personal history of other malignant neoplasm of kidney (ICD-10) History of kidney cancer ?Z85.528 - Personal history of other malignant neoplasm of kidney (ICD-10) Femoral-femoral bypass graft thrombosis, left ?T82.868A - Thrombosis due to vascular prosthetic devices, implants and grafts, initial encounter (ICD-10) Kidney carcinoma ?C64.9 - Malignant neoplasm of unspecified kidney, except renal pelvis (ICD- 10) Surgical History (Updated 09/16/24 @ 15:12 by Eri Le) Hx of cholecystectomy ?Z90.49 - Acquired absence of other specified parts of digestive tract (ICD- 10) History of kidney removal ?Z90.5 - Acquired absence of kidney (ICD-10) History of open heart surgery ?Z98.890 - Other specified postprocedural states (ICD-10) Family History (Updated 09/16/24 @ 15:07 by Eri Le) Mother Family history of CHF (congestive heart failure) Family history of diabetes mellitus Family history of hypertension Family history of myocardial infarction Father Family history of cancer Sister Family history of cancer Family history of diabetes mellitus Family history of hypertension Brother Family history of cancer Family history of myocardial infarction Grandfather Family history of myocardial infarction Social History (Updated 09/16/24 @ 15:09 by Eri Le) Within the past year, how often did you have a drink containing alcohol: never Score interpretation: A score less than 4 is consistent with normal alcohol consumption. 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 Highest level of school completed/degree received: 12th grade, no diploma Are you now , , , , never or living with a partner: In a typical week, how many times do you talk on the telephone with family, friends, or neighbors: 3 or more times per week How often do you get together with friends or relatives: 3 or more times per week How often do you attend religious or adventist services: never Do you belong to any clubs or organizations such as religious groups unions, fraternal or athletic groups, or school groups: no Total score: 2 Score interpretation: A score of greater than or equal to 2 indicates the lowest level of social isolation. Little interest or pleasure in doing things: not at all Feeling down, depressed, or hopeless: not at all Feel stressed/tense/nervous/anxious/difficulty sleeping: not at all Exam Narrative Exam Narrative: Nurses notes and vital signs reviewed and patient is not hypoxic. General: Generalized weakness noted Skin: Warm, dry, no pallor noted. No rash. Head: Normocephalic, atraumatic. Neck: Supple, non-tender. Eye: Pupils are equal, round and EOMI. No scleral icterus. Ears, Nose, Mouth, and Throat: TM are clear, no nasal mucosal hypertrophy. Oral mucosa is moist, no posterior oropharynx erythema, uvula is mid-line Cardiovascular: Regular Rate and Rhythm without murmur, gallop or rub. Respiratory: No accessory muscle use or respiratory distress. Lungs are clear to auscultation, no wheezing, rales or rhonchi Chest Wall: no tenderness Back: No midline thoracic or lumbar vertebral tenderness. No CVA tenderness Musculoskeletal: normal ROM, no calf or popliteal tenderness, no lower extremity edema/swelling GI: Abdomen is soft, non-distended. Normal bowel sounds. No masses appreciated. No tenderness to palpation. No rebound, guarding, or rigidity noted. Constitutional Vital Signs, click to edit/add: Last Vital Signs Temp 100.1 F 11/02/24 10:28 Pulse 114 H 11/02/24 10:28 Resp 20 11/02/24 10:28 BP 120/62 11/02/24 10:28 Pulse Ox 97 11/02/24 10:56 O2 Del Method Room Air 11/02/24 10:56 Course Vital Signs Vital signs: Vital Signs Temperature 100.1 F 11/02/24 10:28 Pulse Rate 114 H 11/02/24 10:28 Respiratory Rate 20 11/02/24 10:28 Blood Pressure 120/62 11/02/24 10:28 Pulse Oximetry 98 11/02/24 10:28 Oxygen Delivery Method Room Air 11/02/24 10:28 Temperature 100.1 F 11/02/24 10:28 Pulse Rate 114 H 11/02/24 10:28 Respiratory Rate 11/02/24 10:28 Blood Pressure 120/62 11/02/24 10:28 Pulse Oximetry 97 11/02/24 10:56 Oxygen Delivery Method Room Air 11/02/24 10:56 Medical Decision Making [facility] Narrative Medical decision making narrative: The patient EKG upon arrival showing sinus rhythm with a heart rate of the [address] elevation but there is some ST depression noticed The patient CBC shows no leukocytosis his fever upon arrival is 100.1 The patient COVID flu and RSV test are negative The patient chemistry showing acute on top of chronic kidney disease with a mildly elevated lactic acid 2.3 Already received 1 L by the EMS he is to continue the 30 cc/kg protocol per sepsis with a total of 2300 cc of fluid The patient chest x-ray shows infiltrate in the left lung with a small effusion Right now the patient not needing oxygen at the baseline and started on l evofloxacin after obtaining blood culture The patient right now will be admitted for sepsis due to pneumonia management after discussing the case with Dr. Sharp and she agreed with above-mentioned plan Lab Data Labs: Lab Results 11/02/24 11/02/24 Range/Units 10:37 10:52 WBC 9.7 (4.0-11.0) 10^3/uL RBC 4.62 L (4.70-6.10) 10^6/uL Hgb 13.9 L (14.0-18.0) g/dL Hct 42.2 (42.0-54.0) % MCV 91.3 (80.0-94.0) fL MCH 30.1 (25.9-34.0) pg MCHC 32.9 (29.9-35.2) g/dL RDW 14.0 (11.0-15.0) % Plt Count 216 (150-450) 10^3/uL MPV 9.5 (9.5-13.5) fL Neut % (Auto) 88.3 H (43.0-75.0) % Lymph % (Auto) 7.2 L (20.5-60.0) % [place] % (Auto) 3.3 (1.7-12.0) % Eos % (Auto) 0.7 L (0.9-7.0) % Baso % (Auto) 0.3 (0.2-2.0) % Neut # (Auto) 8.5 H (1.4-6.5) 10^3/uL Lymph # (Auto) 0.7 L (1.2-3.8) 10^3/uL [place] # (Auto) 0.3 (0.3-0.8) 10^3/uL Eos # (Auto) 0.1 (0.0-0.7) 10^3/uL Baso # (Auto) 0.0 (0.0-0.1) 10^3/uL Abs Immat Gran (auto) 0.02 (0.00-0.03) 10^3/uL Imm/Tot Granulo (auto) 0.2 (0.0-0.5) % Sodium 144 (136-145) mmol/L Potassium 3.8 (3.5-5.1) mmol/L Chloride 107 (98-107) mmol/L Carbon Dioxide 26.9 (21.0-32.0) mmol/L Anion Gap 13.9 BUN 27.0 H (7.0-18.0) mg/dL Creatinine 2.28 H (0.70-1.30) mg/dL Est GFR ( Amer) 35 L (>=60 mL/min/1.73m^2) Est GFR (Non-Af Amer) 29 L (>=60 mL/min/1.73m^2) BUN/Creatinine Ratio 11.8 Glucose 174 H (74-106) mg/dL Lactate 2.2 H* (0.4-2.0) mmol/L Calcium 9.6 (8.5-10.1) mg/dL Total Bilirubin 0.8 (0.2-1.0) mg/dL AST 25 (15-37) U/L ALT 25 (16-63) U/L Alkaline Phosphatase 119 H (46-116) U/L Troponin I High Sens 6.5 (4.0-76.1) pg/mL Total Protein 7.6 (6.4-8.2) g/dL Albumin 3.2 L (3.4-5.0) g/dL Globulin 4.4 g/dL Albumin/Globulin Ratio 0.7 Influenza Type A Ag Negative Influenza Type B Ag Negative RSV Antigen Not detected (NOT DETECTE) SARS-CoV-2 Ag (CV2AG) Negative (NEGATIVE) Discharge Plan Discharge Chief Complaint: Weakness Clinical Impression: Pneumonia, Sepsis, Acute kidney injury superimposed on chronic kidney disease Patient Disposition: Admitted to FBC, OBS Prescriptions / Home Meds: No Action atorvastatin 40 mg tablet 40 mg PO .qhs amitriptyline 150 mg tablet 150 mg PO .qhs glipizide 10 mg tablet 10 mg PO BID clopidogrel 75 mg tablet 75 mg PO .qd oxycodone-acetaminophen 5-325 mg tablet 1 tab PO Q6H PRN (Reason: severe pain (scale score 7-10)) sodium bicarbonate 650 mg tablet 650 mg PO BID levothyroxine 50 mcg tablet 50 mcg PO .qd pantoprazole 40 mg tablet,delayed release (DR/EC) 80 mg PO .night gabapentin 100 mg capsule 100 mg PO BID hydrocortisone 10 mg tablet 10 mg PO Q12H metoprolol tartrate 25 mg tablet 25 mg PO BID dapagliflozin propanediol [Farxiga] 10 mg tablet 10 mg PO .qd aspirin [Adult Low Dose Aspirin] 81 mg tablet,delayed release (DR/EC) 81 mg PO DAILY doxycycline hyclate 100 mg tablet 100 mg PO BID 7 Days Qty: 14 0RF levofloxacin 750 mg tablet 750 mg PO .q48 8 Days Qty: 4 0RF Print Language: Anguillan Referrals: Alec Trotter MD [Primary Care Provider] - 1 week
[2024-11-02] MEDS: LEVOFLOXACIN IN DEXTROSE 5 % 750 MG/150 ML PREMIX 100 MG IV (12:09)
[2024-11-02] MEDS: ONDANSETRON PF 4 MG/2 ML VIAL IV (12:23)
[2024-11-02] MEDS: HYDROCORTISONE SODIUM SUCC PF 100 MG/2 ML VIAL IVP (12:56)
--- NOTE | 2024-11-02 13:00 | PM.HP ---
HPI H&P: HPI History of Present Illness Chief complaint: PNEUMONIA, SEPSIS Narrative: Patient is a 69 y o male with past medical history of Renal Cell Carcinoma s/p nephrectomy and adrenal insufficiency, NIDDM, hypothyroidism, Hyperlipidemia, CAD (CABG 1 year ago), CKD stage 3B, smoker who lives at home with his , Patient started feeling overall weak and tired, with chills and could not get out of bed. took Vitals and patient's blood pressure was low. says he took his medications this morning. She called EMS. ER findings revealed Sepsis secondary to PNA. His BP initially was low and he required IV fluids and stress dose steroids but did not recover so was placed on Levaphed. He is currently maintaining on drip. He denies chest pain, SOB or fever but did have elevated temp in the ER. ER findings: Chest X-ray showed Left lower Lobe Pneumonia, Cr 2.28, lactate 2.2 and 2.9, Hb 13.9, WBCs 9.7, Trop 6.5 and 8, proBNP normal Temp 100.1, Pulse 114, RR 20, BP 70/48 after starting levaphed was 118/77. Patient was 85 % on room air and placed on 3L NC oxygen and returned to 97%. Opioid HPI Opioid Management Most Recent Pain and Opioid Data: Last Pain Scale 0 11/02/24 10:56 11/02/24 Last Pain Assessment 11/02/24 15:00 Last ED Pain Assessment 11/02/24 10:56 Last ORT Total Score 0 11/02/24 14:35 11/02/24 Last ORT Risk Category Low Risk 11/02/24 14:35 11/02/24 Review of Systems ROS Narrative ROS: a complete review of systems were reviewed with patient and are positive as below or listed in History of Chief Complaint. General: fever, chills, no night sweats Head: no headache, trauma, visual changes, nausea or vomiting Skin: no reported rashes, itching or sores Eyes: no blurriness of vision Ears: no reported hearing loss, vertigo, earache, or tinnitus Throat: no sore throat, hoarseness, swelling of neck, or tongue pain Heart: no chest pain Lungs: shortness of breath and cough GI: no diarrhea or vomiting/nausea Urinary: no urinary urgency, frequency or pain Neuro: no numbness or tingling HEM: no bleeding issues or bruising ENDO: no thyroid problems Psych: no anxiety or depression PFSH PFS Medical History (Updated 11/02/24 @ 16:25 by Adia Sharp DO) Diabetic peripheral neuropathy ?E11.42 - Type 2 diabetes mellitus with diabetic polyneuropathy (ICD-10) GERD without esophagitis ?K21.9 - Gastro-esophageal reflux disease without esophagitis (ICD-10) Pneumonia ?J18.9 - Pneumonia, unspecified organism (ICD-10) Type 2 diabetes mellitus ?E11.9 - Type 2 diabetes mellitus without complications (ICD-10) Maintenance antineoplastic immunotherapy ?Z51.12 - Encounter for antineoplastic immunotherapy (ICD-10) 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 ?E27.3 - Drug-induced adrenocortical insufficiency (ICD-10) Chronic steroid use Hypothyroidism ?E03.9 - Hypothyroidism, unspecified (ICD-10) HLD (hyperlipidemia) ?E78.5 - Hyperlipidemia, unspecified (ICD-10) CAD (coronary artery disease) ?I25.10 - Atherosclerotic heart disease of hopi coronary artery without angina pectoris (ICD-10) CKD stage 3b, GFR 30-44 ml/min ?N18.32 - Chronic kidney disease, stage 3b (ICD-10) H/O renal cell carcinoma ?Z85.528 - Personal history of other malignant neoplasm of kidney (ICD-10) History of kidney cancer ?Z85.528 - Personal history of other malignant neoplasm of kidney (ICD-10) Femoral-femoral bypass graft thrombosis, left ?T82.868A - Thrombosis due to vascular prosthetic devices, implants and grafts, initial encounter (ICD-10) Kidney carcinoma ?C64.9 - Malignant neoplasm of unspecified kidney, except renal pelvis (ICD-10) Surgical History Hx of cholecystectomy ?Z90.49 - Acquired absence of other specified parts of digestive tract (ICD-10) History of kidney removal ?Z90.5 - Acquired absence of kidney (ICD-10) History of open heart surgery ?Z98.890 - Other specified postprocedural states (ICD-10) Family History Mother Family history of CHF (congestive heart failure) Family history of diabetes mellitus Family history of hypertension Family history of myocardial infarction Father Family history of cancer Sister Family history of cancer Family history of diabetes mellitus Family history of hypertension Brother Family history of cancer Family history of myocardial infarction Grandfather Family history of myocardial infarction Social History Within the past year, how often did you have a drink containing alcohol: never Score interpretation: A score less than 4 is consistent with normal alcohol consumption. Smoking status: Current every day smoker Non-prescribed substance use: denies use Previous occupational history: [employer] Highest level of school completed/degree received: high school graduate Are you now , , , , never or living with a partner: In a typical week, how many times do you talk on the telephone with family, friends, or neighbors: 3 or more times per week How often do you get together with friends or relatives: 3 or more times per week How often do you attend denominational or zoroastrian services: never Do you belong to any clubs or organizations such as denominational groups unions, [employer] or athletic groups, or school groups: no Total score: 2 Score interpretation: A score of greater than or equal to 2 indicates the lowest level of social isolation. Little interest or pleasure in doing things: several days Feeling down, depressed, or hopeless: not at all Feel stressed/tense/nervous/anxious/difficulty sleeping: not at all Meds Home Medications and Allergies Home Medications ?Medication ?Instructions ?Recorded ?Confirmed ?Type amitriptyline 150 mg tablet 150 mg PO .QHS 09/16/24 11/02/24 History aspirin 81 mg tablet,delayed 81 mg PO DAILY 09/16/24 11/02/24 History release (Adult Low Dose Aspirin) atorvastatin 40 mg tablet 40 mg PO .QHS 09/16/24 11/02/24 History clopidogrel 75 mg tablet 75 mg PO DAILY 09/16/24 11/02/24 History dapagliflozin propanediol 10 mg 10 mg PO DAILY 09/16/24 11/02/24 History tablet (Farxiga) gabapentin 100 mg capsule 100 mg PO BID 09/16/24 11/02/24 History glipizide 10 mg tablet 10 mg PO BID 09/16/24 11/02/24 History hydrocortisone 10 mg tablet 10 mg PO Q8H 09/16/24 11/02/24 History levothyroxine 50 mcg tablet 50 mcg PO .qd 09/16/24 11/02/24 History metoprolol tartrate 25 mg tablet 25 mg PO BID 09/16/24 11/02/24 History pantoprazole 40 mg tablet,delayed 40 mg PO Q12H 09/16/24 11/02/24 History release sodium bicarbonate 650 mg tablet 650 mg PO BID 09/16/24 11/02/24 History Allergies Allergy/AdvReac Type Severity Reaction Status Date / Time No Known Drug Allergies Allergy Verified 11/02/24 10:28 Exam Narrative Exam Narrative: General: Patient is alert, and oriented to person, place and time with normal affect, proper hygiene Skin: no visible rashes, or ulcers Head: atraumatic, acephalic Eyes: PERRLA, no nystagmus present, conjunctiva clear, no scleral icterus Ears: normal gross auditory acuity Nose: symmetric, no discharge, no maxillary or frontal sinus tenderness Mouth/Throat: no erythema, exudate, or tonsillar enlargement, poor dentition Neck: no masses palpated, normal thyroid Heart: Normal rate and rhythm, no murmurs/rubs/gallops Lungs: no audible wheezes, crackles and normal breath sounds all lung alfaro Abdomen: Normal audible bowel sounds, no distension, No palpable masses, no organomegaly, no rebound/guarding/ or rigidity Musculoskeletal: muscle atrophy noted, ROM is limited due to being in hospital bed, no swelling bilateral lower extremities Neuro: CN II-X grossly intact Constitutional Vital Signs, click to edit/add: Last Vital Signs Temp 100.1 F 11/02/24 10:28 Pulse 111 H 11/02/24 12:57 Resp 20 11/02/24 12:57 BP 86/43 L 11/02/24 12:57 Pulse Ox 75 L 11/02/24 12:57 O2 Del Method Nasal Cannula 11/02/24 12:18 O2 Flow Rate 2 11/02/24 12:18 Results Labs Labs: Short CBC 11/02/24 Range/Units 10:37 WBC 9.7 (4.0-11.0) 10^3/uL Hgb 13.9 L (14.0-18.0) g/dL Hct 42.2 (42.0-54.0) % Plt Count 216 (150-450) 10^3/uL BMP 11/02/24 10:37 Sodium 144 Potassium 3.8 Chloride 107 Carbon Dioxide 26.9 BUN 27.0 H Creatinine 2.28 H Glucose 174 H Calcium 9.6 Liver Function 11/02/24 Range/Units 10:37 Total Bilirubin 0.8 (0.2-1.0) mg/dL AST 25 (15-37) U/L ALT 25 (16-63) U/L Alkaline Phosphatase 119 H (46-116) U/L Albumin 3.2 L (3.4-5.0) g/dL Assessment and Plan Assessment and Plan (1) Severe sepsis with acute organ dysfunction: Assessment and Plan: chest X-ray positive for LLL pneumonia- will check sputum culture if possible, last blood culture was positive for Staph Capitis. Blood cultures pending now. Start on Levaquin and rocephin IV, renally dose. Patient with tachycardia, tachypnea, Lactic acidosis, hypoxia and hypotensive. Patient requiring levaphed for BP control. Keep MAPs >60. Will place back on chronic steroids for adrenal insufficiency, given fluid bolus and will continue LR @100. Monitor oxygen status, currently requiring 3L NC. Wean off levaphed. (2) LLL pneumonia: Assessment and Plan: continue rocephin and Levaquin IV. Duonebs scheduled with PRN albuterol and Opep. Qualifiers: Pneumonia type: due to unspecified organism Qualified Code(s): J18.9 - Pneumonia, unspecified organism (3) Acute respiratory failure with hypoxia: Assessment and Plan: secondary to #2, Opep, patient with no history of oxygen therapy, is a smoker. dropped to 85% on room air, currently at 3L NC. (4) Adrenal insufficiency: Assessment and Plan: Patient takes hydrocortisone 10mg PO TID . will continue, was given stress dose of 100mg IV x 1 in ER. (5) Acute kidney injury superimposed on chronic kidney disease: Assessment and Plan: baseline 1.7, currently 2.28; renally dose medications, IVF and due to hypotension, check UA (6) Type 2 diabetes mellitus: Assessment and Plan: SSI with accuchecks, hold oral hypoglycemics Qualifiers: Chronic kidney disease stage: stage 3 (moderate) Chronic kidney disease stage 3 subtype: stage 3b (GFR 30-44) Diabetes mellitus complication detail: with chronic kidney disease Diabetes mellitus complication status: with kidney complications Diabetes mellitus specialist icu insulin use: without specialist icu use Qualified Code(s): E11.22 - Type 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; N18.32 - Chronic kidney disease, stage 3b (7) Maintenance antineoplastic immunotherapy: Assessment and Plan: Makes patient immunocompromised, gets every 3 weeks at [facility]. next dose due 11/10/24 (8) Hypothyroidism: Assessment and Plan: continue levothyroxine Qualifiers: Hypothyroidism type: unspecified Qualified Code(s): E03.9 - Hypothyroidism, unspecified (9) HLD (hyperlipidemia): Assessment and Plan: continue statin Qualifiers: Hyperlipidemia type: unspecified Qualified Code(s): E78.5 - Hyperlipidemia, unspecified (10) CAD (coronary artery disease): Assessment and Plan: continue aspirin, plavix, statin Qualifiers: Associated angina: without angina Coronary Disease-Associated Artery/Lesion type: hopi artery [place] vs. transplanted heart: hopi heart Qualified Code(s): I25.10 - Atherosclerotic heart disease of hopi coronary artery without angina pectoris (11) CKD stage 3b, GFR 30-44 ml/min: Assessment and Plan: monitor, continue bicarb (12) H/O renal cell carcinoma: (13) Chronic steroid use: (14) GERD without esophagitis: Assessment and Plan: continue protonix (15) Diabetic peripheral neuropathy: Assessment and Plan: continue gabapentin and amitriptyline Plan patient is a full code Heparin for DVT prophylaxis patient is inpatient status and currently in the ICU for closer/higher level of care requiring Levaphed for BP control. He will cross 2 midnights for his hospital necessary care for acute sepsis secondary to pneumonia.
[2024-11-02] MEDS: ACETAMINOPHEN 325 MG TABLET 650 MG PO (13:48)
[2024-11-02] MEDS: NOREPINEPHRINE BITARTRATE/D5W 4 MG/250 ML PREMIX 30 MG IV (13:52)
[2024-11-02 14:37] LABS: Lactate/Lactic Acid 2.9 mmol/L (0.4-2.0)
[2024-11-02] MEDS: LACTATED RINGER'S SOLUTION 1,000 ML 50 ML IV (15:02)
[2024-11-02 15:13] LABS: Bilirubin Urine NEGATIVE (NEGATIVE); Blood Urine NEGATIVE (NEGATIVE); Clarity Urine CLEAR (CLEAR); Color Urine LT. YELLOW (YELLOW); Glucose Urine UA >=1000 mg/dL (NEGATIVE); Ketones Urine NEGATIVE (NEGATIVE); Leukocyte Esterase Urine NEGATIVE (NEGATIVE); Nitrite Urine NEGATIVE (NEGATIVE); Protein Urine NEGATIVE (NEG/TRACE); Specific Gravity Urine <=1.005 (1.005-1.025); Urobilinogen Urine 0.2 EU/dL (0.2-1.0)
[2024-11-02 15:23] LABS: Bacteria Urine NONE SEEN #/HPF (NONE SEEN); Cast Seen? NONE SEEN #/LPF (NONE SEEN); Crystals Seen? None Seen #/HPF (None Seen); Mucus Urine NONE SEEN (NONE SEEN); RBC Urine 0-2 #/HPF (0-2); Squamous Epithelial Cell Urine RARE #/LPF (NONE/RARE)
[2024-11-02] MEDS: HEPARIN SODIUM (PORCINE) 5,000 UNIT/ML VIAL 5000 UNIT SUBQ (16:30)
[2024-11-02] MEDS: CEFTRIAXONE 1,000 MG in 0.9 % SODIUM CHLORIDE 50 ML 100 MG IV (16:31)
[2024-11-02] MEDS: INSULIN ASPART 300 UNIT/3 ML PEN SUBQ ×2 (16:46→21:11)
[2024-11-02 16:55] LABS: Glucometer 239 mg/dL (74-106)
[2024-11-02] MEDS: IPRATROPIUM/ALBUTEROL SULFATE 3 ML AMPUL.NEB IH ×2 (17:02→22:36)
[2024-11-02] MEDS: ATORVASTATIN CALCIUM 40 MG TABLET PO (21:09)
[2024-11-02] MEDS: SODIUM BICARBONATE 325 MG TABLET 650 MG PO (21:09)
[2024-11-02] MEDS: OMEPRAZOLE 40 MG CAPSULE.DR PO (21:09)
[2024-11-02] MEDS: GABAPENTIN 100 MG CAPSULE PO (21:09)
[2024-11-02] MEDS: HYDROCORTISONE 20 MG TABLET 10 MG PO (21:09)
[2024-11-02] MEDS: AMITRIPTYLINE HCL 50 MG TABLET 150 MG PO (21:10)
[2024-11-02 21:15] LABS: Glucometer 271 mg/dL (74-106)
[2024-11-03] VITALS (46 sets, daily range): BP systolic 92–163; BP diastolic 55–88; PULSE 89–138; TEMP 36.5–36.7; O2SAT 94–100
[2024-11-03] MEDS: LACTATED RINGER'S SOLUTION 1,000 ML 100 ML IV ×3 (01:00→21:23)
[2024-11-03 04:59] LABS: Basophils Percent Auto 0.3 % (0.2-2.0); Eosinophils Percent Auto 0.1 % (0.9-7.0); Hematocrit 33.6 % (42.0-54.0); Hemoglobin 11.3 g/dL (14.0-18.0); Immature Granulocytes Abs Auto 0.02 10^3/uL (0.00-0.03); Immature Granulocytes Pct Auto 0.2 % (0.0-0.5); Lymphocytes Absolute Auto 1.3 10^3/uL (1.2-3.8); Lymphocytes Percent Auto 14.2 % (20.5-60.0); Mean Corpuscular HGB Conc 33.6 g/dL (29.9-35.2); Mean Corpuscular Hemoglobin 30.5 pg (25.9-34.0); Mean Corpuscular Volume 90.6 fL (80.0-94.0); Mean Platelet Volume 9.9 fL (9.5-13.5); Monocytes Absolute Auto 0.6 10^3/uL (0.3-0.8); Monocytes Percent Auto 6.8 % (1.7-12.0); Neutrophils Absolute Auto 7.2 10^3/uL (1.4-6.5); Neutrophils Percent Auto 78.4 % (43.0-75.0); Platelet Count 204 10^3/uL (150-450); Red Blood Count 3.71 10^6/uL (4.70-6.10); Red Cell Distribution Width 14.3 % (11.0-15.0); White Blood Count 9.2 10^3/uL (4.0-11.0)
[2024-11-03] MEDS: IPRATROPIUM/ALBUTEROL SULFATE 3 ML AMPUL.NEB IH ×3 (05:02→17:00)
[2024-11-03 05:17] LABS: Alanine Aminotransferase 27 U/L (16-63); Albumin Globulin Ratio 0.6; Albumin Level 2.6 g/dL (3.4-5.0); Alkaline Phosphatase 96 U/L (46-116); Anion Gap 10.9; Aspartate Amino Transferase 19 U/L (15-37); BUN Creatinine Ratio 11.3; Bilirubin Total 0.7 mg/dL (0.2-1.0); Calcium 9.1 mg/dL (8.5-10.1); Carbon Dioxide 25.3 mmol/L (21.0-32.0); Chloride 108 mmol/L (98-107); Estimated GFR (African America 38 (>=60 mL/min/1.73m^2); Estimated GFR (Non-African Ame 31 (>=60 mL/min/1.73m^2); Globulin 4.1 g/dL; Glucose 134 mg/dL (74-106); Potassium 4.2 mmol/L (3.5-5.1); Sodium 140 mmol/L (136-145); Total Protein 6.7 g/dL (6.4-8.2)
[2024-11-03] MEDS: HEPARIN SODIUM (PORCINE) 5,000 UNIT/ML VIAL 5000 UNIT SUBQ ×2 (05:39→16:18)
[2024-11-03] MEDS: HYDROCORTISONE 20 MG TABLET 10 MG PO ×3 (05:39→21:24)
[2024-11-03] MEDS: LEVOTHYROXINE SODIUM 25 MCG TABLET 50 MCG PO (05:40)
[2024-11-03] MEDS: CLOPIDOGREL BISULFATE 75 MG TABLET PO (08:28)
[2024-11-03] MEDS: ASPIRIN 81 MG TABLET.DR PO (08:28)
[2024-11-03] MEDS: SODIUM BICARBONATE 325 MG TABLET 650 MG PO ×2 (08:28→21:23)
[2024-11-03] MEDS: OMEPRAZOLE 40 MG CAPSULE.DR PO ×2 (08:29→21:24)
[2024-11-03] MEDS: GABAPENTIN 100 MG CAPSULE PO ×2 (08:29→21:24)
--- NOTE | 2024-11-03 09:26 | CM.NOTE ---
Important Message From Medicare discussed with pt, pt verbalizes understanding and signs paper. Original given to pt and copy placed on pt's chart. Pt has had [facility] in the past but nothing active at this time. PT and OT will evaluate pt during admission for recommendations.
--- NOTE | 2024-11-03 09:33 | SWNOTE1 ---
SW spoke to case management and pt has had [facility] in past and Physical therapy is recommending HH. Pt would like to use [facility] again. SW to send referral. Referral sent to [facility]. Referral included face sheet, ED note, H&P, provider notes, case management report, and PT/OT notes.
--- NOTE | 2024-11-03 10:38 | PT.DAILY ---
Physical Therapy Daily Note PT Daily Note/Assess Start: 11/02/24 16:31 Freq: Status: Active Protocol: Document 11/03/24 10:33 ANA CRISTINA (Rec: 11/03/24 10:37 ANA CRISTINA [id number]) Physical Therapy Daily Note/Assessment Time In/Time Out Time In 09:15 Time Out 09:30 Pain In Pain N/A Pain Out Pain N/A Subjective Subjective Pt supine upon arrival. Agrees to PT. Feeling OK this morning. Therapeutic Exercise Time Therapeutic Exercise 4 Minutes (minutes) Therapeutic Exercise 0 Units Therapeutic Exercise Treatment Therapeutic Exercise Pt sits EOB unsupported to perform bilat LE Treatment strengthening ex. Therapeutic Activity Time Therapeutic Activity 8 Minutes (minutes) Therapeutic Activity 1 Units Therapeutic Activity Treatment Bed Mobility Ability Standby Assistance Chair Transfer Contact Guard Assist Ability Therapeutic Activity Pt performs supine>sit to EOB with increased time Comments needed. SIts EOB to perform LE strengthening ex without any outside assistance. Pt sit>stand CGA for safety. Amb 80' with RW, CGA and assist for IV lines. Returned supine with increased time but no outside assistance. Remains supine with present and call light within reach. Total Physical Therapy Time Total Therapy 12 Minutes Total Physical 1 Therapy Units Summary Daily Note Summary Improved gait endurance. Safe with transfers just requires increased time.
--- OUTSIDE RECORDS SUMMARY | 2024-11-03 10:42 | XMS_ITS | CCD ---
Author Organization [facility] Care Team Providers Care Contracts Paralegal Name Role Phone PHYSICIAN, DEFAULT Unavailable Unavailable PHYSICIAN, DEFAULT Unavailable Unavailable ALEC PINZON Unavailable Unavailable PHYSICIAN, DEFAULT Unavailable Unavailable PHYSICIAN, DEFAULT Unavailable Unavailable ALEC PINZON Unavailable Unavailable Alec Pinzon Primary Care Provider [phone] BARBARA PEREA Referring Unavailable COSMESABRINA SA Referring [...] NING Attending Unavailable ALIA, NING Admitting Unavailable POCNHO SHETH Consulting Unavailable ALIA, NING Consulting Unavailable [...] Date of Onset Reaction(s) Facility (1 source) 78281,00; Translations: [96877,00] Propensity to adverse reactions (disorder) 9 [facility] Repository Medications Current Medications Medication Drug Class(es) [...] MG tablet Indications: PVD (peripheral vascular disease) ([facility]) TAKE 1 TABLET BY MOUTH EVERY [...] mg by mouth once daily Pantoprazole Sodium ([facility] [place] PO) Take 80 mg by mouth [...] mouth daily 0 Active polyethylene glycol 3350 16461 mg powder for oral solution (1 source) [...] tablet Start: 10-30-2019 take 2 tablets by [facility] every four hours as needed for pain [...] artery disease; Translations: [Atherosclerotic heart disease of [place] coronary artery without angina pectoris] Onset: 1 [...] 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; Translations: [OTH JAIL CURRENT DRUG THERAPY] Onset: 11-22-2022 Episodic Other aftercare (1 source) prison (current) use of oral hypoglycemic drugs; 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] Onset: 09-04-2022 Episodic [...] the shift include Comfort, safety, sleep Normal [facility] BASIC METABOLIC PANELon 06-19 Anion gap [Moles/Vol] 9 mmol/L Normal 7-20 [facility] Comment on above: Performed By: #### L [id number] ####[facility] (BEAKER)[address] [place] [address] Calcium [Mass/Vol] 9.4 mg/dL Normal 8.6-10.3 [facility] Comment on above: Performed By: #### L [id number] ####[facility] (BEAKER)[address] [place] [address] Chloride [Moles/Vol] 106 mmol/L Normal 98-107 [facility] Comment on above: Performed By: #### L [id number] ####[facility] (BEAKER)[address] [place] [address] CO2 [Moles/Vol] 24 mmol/L Normal 21-31 [facility] Comment on above: Performed By: #### L [id number] ####[facility] (BEAKER)[address] [place] [address] Creatinine [Mass/Vol] 1.95 mg/dL High 0.70-1.30 [facility] Comment on above: Performed By: #### L [id number] ####[facility] (BEAKER)[address] [place] [address] GLOMERULAR FILTRATION RATE ML/MIN/1.73 SQ M.PREDICTED 37.2 mL/min/1.73m*2 Low >60.0 [facility] Comment on above: Result Comment: [facility] [place]???s estimated glomerular filtration rate (eGFR) will no [...] of individuals. Performed By: #### L [id number] ####[facility] (BEAKER)[address] [place] [address] Glucose [Mass/Vol] 136 mg/dL High 70-100 [facility] Comment on above: Performed By: #### L [id number] ####[facility] (BEAKER)[address] [place] [address] Potassium [Moles/Vol] 4.1 mmol/L Normal 3.5-5.1 [facility] Comment on above: Performed By: #### L [id number] ####[facility] (BEAKER)[address] [place] [address] Sodium [Moles/Vol] 135 mmol/L Low 136-145 [facility] Comment on above: Performed By: #### L [id number] ####[facility] (BEAKER)[address] [facility] [place] [address] Urea nitrogen [Mass/Vol] 26 mg/dL High 7-25 [facility] [place] Comment on above: Performed By: #### L [id number] ####[facility] (BEAKER)[address] [place] [address] UREA NITROGEN/CREATININE (MASS RATIO) IN SER/PLAS 13.3 Normal [facility] Comment on above: Performed By: #### L [id number] ####[facility] (BEAKER)[address] [place] [address] CBCon 07-10-2024 Erythrocyte distribution width (RBC) [Ratio] 14.6 % Normal 11.5-15.0 [facility] Comment on above: Performed By: #### L [id number] ####[facility] ([facility] [place] [address] ERYTHROCYTE MEAN CORPUSCULAR HEMOGLOBIN CONCENTRATION (G/DL) BY AUTOMATED 33.5 g/dL Normal 32.0-35.0 [facility] [place] Comment on above: Performed By: #### L [id number] ####[facility] ([facility])[address] [place] [address] Hematocrit (Bld) [Volume fraction] 36.4 % Low 39.0-55.0 [facility] [place] Comment on above: Performed By: #### L [id number] ####[facility] ([facility] [place] [address] Hemoglobin (Bld) [Mass/Vol] 12.2 g/dL Low 13.0-17.0 [facility] Comment on above: Performed By: #### L [id number] ####[facility] ([facility] [place] [address] MCH (RBC) [Entitic mass] 30.0 pg Normal 27.0-33.0 [facility] Comment on above: Performed By: #### L [id number] ####[facility] ([facility] [place] [address] MCV (RBC) [Entitic vol] 89.4 fL Normal 82.0-98.0 [facility] Comment on above: Performed By: #### L [id number] ####[facility] ([facility] [place] [address] PLATELETS (10*3/UL) IN BLOOD AUTOMATED COUNT 272 10*3/uL Normal 150-400 [facility] [place] Comment on above: Performed By: #### L [id number] ####[facility] (BEAKER)[address] [place] [address] RBC (Bld) [#/Vol] 4.07 10*6/uL Low 4.20-5.70 [facility] Comment on above: Performed By: #### L [id number] ####[facility] ([facility])[address] [place] [address] WBC (Bld) [#/Vol] 5.73 10*3/uL Normal 4.00-10.60 [facility] Comment on above: Performed By: #### L [id number] ####[facility] ([facility])[address] [place] [address] CORTISOLon 07-10-2024 CORTISOL (UG/DL) IN SER/PLAS 2.0 ug/dL Low 6-23 [facility] Comment on above: Performed By: #### L [id number] ####[facility] ([facility])[address] [place] [address] AMMONIAon 07-09-2024 AMMONIA (UMOL/L) IN PLASMA 28 umol/L Normal 18-72 [facility] [place] Comment on above: Performed By: #### L [id number] ####[facility] ([facility])[address] [place] [address] APTTon 07-09-2024 ACTIVATED PARTIAL THROMBOPLASTIN TIME IN PPP BY COAGULATION ASSAY 93.8 Seconds High 25.0-35.0 [facility] Comment on above: Result Comment: Clin ical significance of the APTT is questionable in the presence of heparin. Performed By: #### L [id number] ####[facility] ([facility])[address] [place] [address] CALCIUM, IONIZEDon CALCIUM IONIZED (MMOL/L) IN BLOOD 1.16 mmol/L Normal 1.15-1.33 [facility] Comment on above: Performed By: #### L [id number] ####[facility] [id number] [place] [address] [place] CBC WITH AUTO DIFFERENTIALon 07-09-2024 Basophils (Bld) [#/Vol] 0.04 10*3/uL Normal 0.00-0.20 [facility] [place] Comment on above: Performed By: #### L [id number] ####[facility] (BEAKER)[address] [place] [address] Basophils/100 WBC (Bld) 0.6 % Normal 0.0-1.0 [facility] Comment on above: Performed By: #### L [id number] ####[facility] (BEAKER)[address] [place] [address] Eosinophils (Bld) [#/Vol] 0.17 10*3/uL Normal 0.00-0.50 [facility] Comment on above: Performed By: #### L [id number] ####[facility] (BEAKER)[address] [place] [address] Eosinophils/100 WBC (Bld) 2.7 % Normal 0.0-6.0 [facility] Comment on above: Performed By: #### L [id number] ####[facility] (BEAKER)[address] [place] [address] Erythrocyte distribution width (RBC) [Ratio] 14.7 % Normal 11.5-15.0 [facility] Comment on above: Performed By: #### L [id number] ####[facility] (BEAKER)[address] [place] [address] ERYTHROCYTE MEAN CORPUSCULAR HEMOGLOBIN CONCENTRATION (G/DL) BY AUTOMATED 33.8 g/dL Normal 32.0-35.0 [facility] [place] Comment on above: Performed By: #### L [id number] ####[facility] (BEAKER)[address] [place] [address] Hematocrit (Bld) [Volume fraction] 37.9 % Low 39.0-55.0 [facility] Comment on above: Performed By: #### L [id number] ####[facility] (BEAKER)[address] [place] [address] Hemoglobin (Bld) [Mass/Vol] 12.8 g/dL Low 13.0-17.0 [facility] Comment on above: Performed By: #### L [id number] ####[facility] (BEAKER)[address] [place] [address] Immature granulocytes (Bld) [#/Vol] 0.02 10*3/uL Normal 0.00-0.20 [facility] [place] Comment on above: Performed By: #### L [id number] ####[facility] (BEAKER)[address] [place] [address] Immature granulocytes/100 WBC (Bld) 0.3 % Normal 0.0-1.0 [facility] Comment on above: Performed By: #### L [id number] ####[facility] (BEAKER)[address] [place] [address] Lymphocytes (Bld) [#/Vol] 1.64 10*3/uL Normal 1.20-4.00 [facility] [place] Comment on above: Performed By: #### L [id number] ####[facility] (BEAKER)[address] [place] [address] Lymphocytes/100 WBC (Bld) 26.0 % Normal 20.0-45.0 [facility] [place] Comment on above: Performed By: #### L [id number] ####[facility] (BEAKER)[address] [place] [address] MCH (RBC) [Entitic mass] 29.8 pg Normal 27.0-33.0 [facility] Comment on above: Performed By: #### L [id number] ####[facility] (BEAKER)[address] [place] [address] MCV (RBC) [Entitic vol] 88.3 fL Normal 82.0-98.0 [facility] Comment on above: Performed By: #### L [id number] ####[facility] (BEAKER)[address] [place] [address] Monocytes (Bld) [#/Vol] 0.59 10*3/uL Normal 0.10-1.00 [facility] [place] Comment on above: Performed By: #### L [id number] ####[facility] (BEAKER)[address] [place] [address] Monocytes/100 WBC (Bld) 9.4 % Normal 5.0-12.0 [facility] Comment on above: Performed By: #### L [id number] ####[facility] ([facility] [place] [address] Neutrophils (Bld) [#/Vol] 3.85 10*3/uL Normal 1.60-7.60 [facility] Comment on above: Performed By: #### L [id number] ####[facility] ([facility])[address] [place] [address] Neutrophils/100 WBC (Bld) 61.0 % Normal 40.0-72.0 [facility] [place] Comment on above: Performed By: #### L [id number] ####[facility] ([facility])[address] [place] [address] NRBC (PER 100 WBCS) BY AUTOMATED COUNT 0.0 % Normal 0 [facility] Comment on above: Performed By: #### L [id number] ####[facility] ([facility])[address] [place] [address] PLATELETS (10*3/UL) IN BLOOD AUTOMATED COUNT 324 10*3/uL Normal 150-400 [facility] [place] Comment on above: Performed By: #### L [id number] ####[facility] ([facility] [place] [address] RBC (Bld) [#/Vol] 4.29 10*6/uL Normal 4.20-5.70 [facility] Comment on above: Performed By: #### L [id number] ####[facility] (BEAKER)[address] [place] [address] WBC (Bld) [#/Vol] 6.31 10*3/uL Normal 4.00-10.60 [facility] Comment on above: Performed By: #### L [id number] ####[facility] (BEAKER)[address] [place] [address] COMPREHENSIVE METABOLIC PANE Sonido 07-09-2024 Albumin [Mass/Vol] 3.7 g/dL Normal 3.5-5.7 [facility] Comment on above: Performed By: #### L [id number] ####[facility] ([facility])[address] [place] [address] ALP [Catalytic activity/Vol] 91 U/L Normal 34-104 [facility] Comment on above: Performed By: #### L [id number] ####[facility] ([facility])[address] [place] [address] ALT [Catalytic activity/Vol] 14 U/L Normal 7-52 [facility] Comment on above: Performed By: #### L [id number] ####[facility] ([facility])[address] [place] [address] Anion gap [Moles/Vol] 14 mmol/L Normal 7-20 [facility] Comment on above: Performed By: #### L [id number] ####[facility] ([facility])[address] [place] [address] AST [Catalytic activity/Vol] 14 U/L Normal 13-39 [facility] [place] Comment on above: Performed By: #### L [id number] ####[facility] ([facility])[address] [place] [address] Bilirubin [Mass/Vol] 0.7 mg/dL Normal 0.3-1.0 [facility] Comment on above: Performed By: #### L [id number] ####[facility] ([facility])[address] [place] [address] Calcium [Mass/Vol] 10.0 mg/dL Normal 8.6-10.3 [facility] Comment on above: Performed By: #### L [id number] ####[facility] ([facility])[address] [place] [address] Chloride [Moles/Vol] 100 mmol/L Normal 98-107 [facility] Comment on above: Performed By: #### L [id number] ####[facility] ([facility])[address] [place] [address] CO2 [Moles/Vol] 23 mmol/L Normal 21-31 [facility] Comment on above: Performed By: #### L [id number] ####[facility] ([facility])[address] [place] [address] Creatinine [Mass/Vol] 2.27 mg/dL High 0.70-1.30 [facility] Comment on above: Performed By: #### L [id number] ####[facility] ([facility])[address] [place] [address] GLOMERULAR FILTRATION RATE ML/MIN/1.73 SQ M.PREDICTED 31.0 mL/min/1.73m*2 Low >60.0 [facility] Comment on above: Result Comment: The [facility] [place]???s estimated glomerular filtration rate (eGFR) will no [...] of individuals. Performed By: #### L [id number] ####[facility] ([facility])[address] [place] [address] Glucose [Mass/Vol] 245 mg/dL High 70-100 [facility] Comment on above: Performed By: #### L [id number] ####[facility] ([facility])[address] [place] [address] Potassium [Moles/Vol] 4.4 mmol/L Normal 3.5-5.1 [facility] Comment on above: Performed By: #### L [id number] ####[facility] ([facility])[address] [place] [address] Protein [Mass/Vol] 7.5 g/dL Normal 6.0-8.3 [facility] Comment on above: Performed By: #### L [id number] ####[facility] ([facility])[address] [place] [address] Sodium [Moles/Vol] 133 mmol/L Low 136-145 [facility] Comment on above: Performed By: #### L [id number] ####[facility] ([facility])[address] [place] [address] Urea nitrogen [Mass/Vol] 28 mg/dL High 7-25 [facility] Comment on above: Performed By: #### L [id number] ####[facility] ([facility])[address] [place] [address] UREA NITROGEN/CREATININE (MASS RATIO) IN SER/PLAS 12.3 Normal [facility] Comment on above: Performed By: #### L [id number] ####[facility] ([facility])[address] [place] [address] CT HEAD WO IV CONTRASTon CT HEAD WO IV CONTRAST [facility]24 EDNURS states pt was s een a week ago Wednesday for ketruda infusion. Was hypotensive at that time and given fluid. Dr sykes wanted pt to come to ed for eval at that time, but pt declined. Today states his bp was 82/56 with a HR 107. Normal [facility] EDPROVon 07-09-2024 EDPROV Normal [facility] HPon 07-09-2024 HP Normal [facility] LACTIC ACID WITH 4 HOUR REFL EXon 07-09-2024 LACTATE (MMOL/L) IN SER/PLAS 1.1 mmol/L Normal 0.5-2.2 [facility] Comment on above: Performed By: #### L [id number] ####[facility] ([facility])[address] [place] [address] PHOSPHORUSon 07-09-2024 Magnesium [Mass/Vol] 4.5 mg/dL Normal 2.5-5.0 [facility] Comment on above: Performed By: #### L [id number] ####[facility] (BEAKER)[address] [place] [address] PROTIME-INRon 07-09-2024 INR IN PPP BY COAGULATION ASSAY 1.10 Normal 0.90-1.10 [facility] Comment on above: Result Comment: [facility] P RECOMMENDED INR FOR WARFARIN THERAPY CONDITION INRPROPHYLAXIS OF VENOUS THROMBOSIS 2-3(HIGH-RISK SURGERY)TREATMENT OF VENOUS THROMBOSIS 2-3TREATMENT OF PULMONARY EMBOLISM 2-3PREVENTION OF SYSTEMIC EMBOLISM: 2-3 ACUTE MYOCARDIAL INFARCTION TISSUE HEART VALVES VALVULAR HEART DISEASE ATRIAL FIBRILLATION RECURRENT SYSTEMIC EMBOLISMMECHANICAL HEART VALVE 2.5-3.5 FROM: ORAL ANTICOAGULANTS. MECHANISM OF ACTION, CLINICAL EFFECTIVENESS, AND OPTIMAL THERAPEUTIC RANGE. CHEST 1995;108:[id number]-[id number]. Performed By: #### L [id number] ####[facility] (BEAKER)[address] [place] [address] PROTHROMBIN TIME (PT) IN PPP BY COAGULATION ASSAY 14.2 Seconds Normal 12.3-14.8 [facility] Comment on above: Performed By: #### L [id number] ####[facility] (BEAKER)[address] [place] [address] PTH, INTACTon 07-09-2024 PARATHYRIN INTACT (PG/ML) IN SER/PLAS 129 pg/mL High 12-88 [facility] Comment on above: Performed By: #### L [id number] ####[facility] (BEAKER)[address] [place] [address] T3, FREEon 07-09-2024 TRIIODOTHYRONINE (T3) FREE (PG/ML) IN SER/PLAS 3.1 pg/mL Normal 2.5-3.9 [facility] Comment on above: Performed By: #### L [id number] ####[facility] ([facility])[address] [place] [address] T4, FREEon 07-09-2024 THYROXINE (T4) FREE (NG/DL) IN SER/PLAS 0.53 ng/dL Low 0.71-1.85 [facility] Comment on above: Performed By: #### L [id number] ####[facility] ([facility])[address] [place] [address] TROPONIN Ion 07-09-2024 Troponin I.cardiac [Mass/Vol] 0.01 ng/mL Normal 0.00-0.04 [facility] Comment on above: Performed By: #### L [id number] ####[facility] ([facility])[address] [place] [address] TSH3 REFLEX TO FT4on 024 THYROTROPIN (MIU/L) IN SER/PLAS BY DETECTION LIMIT <= 0.05 MIU/L 0.10 mIU/L Low 0.34-5.60 [facility] Comment on above: Performed By: #### L [id number] ####[facility] ([facility])[address] [place] [address] URINALYSIS WITH REFLEX CULTU REon 07-09-2024 BILIRUBIN, TOTAL PRESENCE IN URINE Negative Normal Negative [facility] Comment on above: Order Comment: Micro scopics not performed on urines with negative chemical reactions unless requested on original order. Performed By: #### L [id number] ####[facility] SERVICES LAB ([facility])[address] [place] [address] Clarity (U) Clear Normal Clear [facility] [place] Comment on above: Order Comment: Micro scopics not performed on urines with negative chemical reactions unless requested on original order. Performed By: #### L [id number] ####[facility] ([facility])[address] [place] [address] Color (U) Yellow Normal Yellow [facility] [place] Comment on above: Order Comment: Micro scopics not performed on urines with negative chemical reactions unless requested on original order. Performed By: #### L [id number] ####[facility] ([facility])[address] [place] [address] Glucose (U) [Mass/Vol] mg/dL Abnormal Negative Un [facility] Comment on above: Order Comment: Micro scopics not performed on urines with negative chemical reactions unless requested on original order. Performed By: #### L [id number] ####[facility] ([facility])[address] [place] [address] HEMOGLOBIN PRESENCE IN URINE Negative Normal Negative [facility] [place] Comment on above: Order Comment: Micro scopics not performed on urines with negative chemical reactions unless requested on original order. Performed By: #### L [id number] ####[facility] ([facility])[address] [place] [address] Ketones Ql (U) Negative Normal Negative [facility] [place] Comment on above: Order Comment: Micro scopics not performed on urines with negative chemical reactions unless requested on original order. Performed By: #### L [id number] ####[facility] ([facility])[address] [place] [address] LEUKOCYTE ESTERASE PRESENCE IN URINE BY TEST STRIP Negative Normal Negative [facility] [place] Comment on above: Order Comment: Micro scopics not performed on urines with negative chemical reactions unless requested on original order. Performed By: #### L [id number] ####[facility] ([facility])[address] [place] [address] NITRITE PRESENCE IN URINE Negative Normal Negative [facility] [place] Comment on above: Order Comment: Micro scopics not performed on urines with negative chemical reactions unless requested on original order. Performed By: #### L [id number] ####[facility] ([facility])[address] [place] [address] pH (U) 5.0 [pH] Normal 5.0-8.0 [facility] [place] Comment on above: Order Comment: Micro scopics not performed on urines with negative chemical reactions unless requested on original order. Performed By: #### L [id number] ####[facility] (BEAK[facility])[address] [place] [address] Protein (U) [Mass/Vol] Negative Normal Negative Un [facility] Comment on above: Order Comment: Micro scopics not performed on urines with negative chemical reactions unless requested on original order. Performed By: #### L [id number] ####[facility] ([facility] [place] [address] Specific gravity (U) [Rel density] 1.020 Normal 1.015-1.02 0 [facility] [place] Comment on above: Order Comment: Micro scopics not performed on urines with negative chemical reactions unless requested on original order. Performed By: #### L [id number] ####[facility] ([facility])[address] [place] [address] 36on 06-30-2024 36 Spoke with patient's and she will take him to the ED right now. Normal [facility] [place] Telephoneon 06-30-2024 Telephone Normal [facility] [place] CBC WITH AUTO DIFFERENTIALon 06-29-2024 Basophils (Bld) [#/Vol] 0.04 10*3/uL Normal 0.00-0.20 [facility] [place] Comment on above: Performed By: #### L [id number] ####[facility] ([facility] [place] [address] Basophils/100 WBC (Bld) 0.5 % Normal 0.0-1.0 [facility] Comment on above: Performed By: #### L [id number] ####[facility] (BEAKER)[address] [place] [address] Eosinophils (Bld) [#/Vol] 0.14 10*3/uL Normal 0.00-0.50 [facility] [place] Comment on above: Performed By: #### L [id number] ####[facility] (BEAKER)[address] [place] [address] Eosinophils/100 WBC (Bld) 1.8 % Normal 0.0-6.0 [facility] [place] Comment on above: Performed By: #### L [id number] ####[facility] ([facility])[address] [place] [address] Erythrocyte distribution width (RBC) [Ratio] 14.9 % Normal 11.5-15.0 [facility] [place] Comment on above: Performed By: #### L [id number] ####[facility] ([facility])[address] [place] [address] ERYTHROCYTE MEAN CORPUSCULAR HEMOGLOBIN CONCENTRATION (G/DL) BY AUTOMATED 33.5 g/dL Normal 32.0-35.0 [facility] [place] Comment on above: Performed By: #### L [id number] ####[facility] ([facility])[address] [place] [address] Hematocrit (Bld) [Volume fraction] 40.9 % Normal 39.0-55.0 [facility] [place] Comment on above: Performed By: #### L [id number] ####[facility] ([facility])[address] [place] [address] Hemoglobin (Bld) [Mass/Vol] 13.7 g/dL Normal 13.0-17.0 [facility] [place] Comment on above: Performed By: #### L [id number] ####[facility] ([facility])[address] [place] [address] Immature granulocytes (Bld) [#/Vol] 0.02 10*3/uL Normal 0.00-0.20 [facility] [place] Comment on above: Performed By: #### L [id number] ####[facility] ([facility])[address] [place] [address] Immature granulocytes/100 WBC (Bld) 0.3 % Normal 0.0-1.0 [facility] [place] Comment on above: Performed By: #### L [id number] ####[facility] ([facility])[address] [place] [address] Lymphocytes (Bld) [#/Vol] 2.27 10*3/uL Normal 1.20-4.00 [facility] [place] Comment on above: Performed By: #### L [id number] ####[facility] ([facility]ER)[address] [place] [address] Lymphocytes/100 WBC (Bld) 30.0 % Normal 20.0-45.0 [facility] [place] Comment on above: Performed By: #### L [id number] ####[facility] ([facility]ER)[address] [place] [address] MCH (RBC) [Entitic mass] 30.0 pg Normal 27.0-33.0 [facility] [place] Comment on above: Performed By: #### L [id number] ####[facility] ([facility]ER)[address] [place] [address] MCV (RBC) [Entitic vol] 89.7 fL Normal 82.0-98.0 [facility] Comment on above: Performed By: #### L [id number] ####[facility] ([facility]ER)[address] [place] [address] Monocytes (Bld) [#/Vol] 0.67 10*3/uL Normal 0.10-1.00 [facility] [place] Comment on above: Performed By: #### L [id number] ####[facility] ([facility]ER)[address] [place] [address] Monocytes/100 WBC (Bld) 8.9 % Normal 5.0-12.0 [facility] Comment on above: Performed By: #### L [id number] ####[facility] ([facility]ER)[address] [place] [address] Neutrophils (Bld) [#/Vol] 4.43 10*3/uL Normal 1.60-7.60 [facility] [place] Comment on above: Performed By: #### L [id number] ####[facility] ([facility]ER)[address] [place] [address] Neutrophils/100 WBC (Bld) 58.5 % Normal 40.0-72.0 [facility] [place] Comment on above: Performed By: #### L [id number] ####[facility] ([facility]ER)[address] [place] [address] NRBC (PER 100 WBCS) BY AUTOMATED COUNT 0.0 % Normal 0 [facility] [place] Comment on above: Performed By: #### L [id number] ####[facility] ([facility])[address] [place] [address] PLATELETS (10*3/UL) IN BLOOD AUTOMATED COUNT 291 10*3/uL Normal 150-400 [facility] [place] Comment on above: Performed By: #### L [id number] ####[facility] ([facility])[address] [place] [address] RBC (Bld) [#/Vol] 4.56 10*6/uL Normal 4.20-5.70 [facility] Comment on above: Performed By: #### L [id number] ####[facility] ([facility])[address] [address] WBC (Bld) [#/Vol] 7.57 10*3/uL Normal 4.00-10.60 [facility] Comment on above: Performed By: #### L [id number] ####[facility] ([facility])[address] [place] [address] COMPREHENSIVE METABOLIC PANE Sonido 06-29-2024 Albumin [Mass/Vol] 4.2 g/dL Normal 3.5-5.7 [facility] Comment on above: Performed By: #### L [id number] ####[facility] ([facility])[address] [place] [address] ALP [Catalytic activity/Vol] 101 U/L Normal 34-104 [facility] [place] Comment on above: Performed By: #### L [id number] ####[facility] ([facility])[address] [place] [address] ALT [Catalytic activity/Vol] 19 U/L Normal 7-52 [facility] [place] Comment on above: Performed By: #### L [id number] ####[facility] ([facility])[address] [place] [address] Anion gap [Moles/Vol] 14 mmol/L Normal 7-20 [facility] Comment on above: Performed By: #### L [id number] ####[facility] ([facility])[address] [place] [address] AST [Catalytic activity/Vol] 18 U/L Normal 13-39 [facility] [place] Comment on above: Performed By: #### L [id number] ####[facility] ([facility])[address] [place] [address] Bilirubin [Mass/Vol] 0.7 mg/dL Normal 0.3-1.0 [facility] Comment on above: Performed By: #### L [id number] ####[facility] ([facility])[address] [place] [address] Calcium [Mass/Vol] 10.2 mg/dL Normal 8.6-10.3 [facility] Comment on above: Performed By: #### L [id number] ####[facility] ([facility])[address] [place] [address] Chloride [Moles/Vol] 101 mmol/L Normal 98-107 [facility] Comment on above: Performed By: #### L [id number] ####[facility] ([facility])[address] [place] [address] CO2 [Moles/Vol] 22 mmol/L Normal 21-31 [facility] Comment on above: Performed By: #### L [id number] ####[facility] ([facility])[address] [place] [address] Creatinine [Mass/Vol] 2.01 mg/dL High 0.70-1.30 [facility] Comment on above: Performed By: #### L [id number] ####[facility] ([facility])[address] [place] [address] GLOMERULAR FILTRATION RATE ML/MIN/1.73 SQ M.PREDICTED 35.9 mL/min/1.73m*2 Low >60.0 [facility] [place] Comment on above: Result Comment: The [facility] [place]???s estimated glomerular filtration rate (eGFR) will no [...] of individuals. Performed By: #### L [id number] ####[facility] ([facility])[address] [place] [address] Glucose [Mass/Vol] 158 mg/dL High 70-100 [facility] Comment on above: Performed By: #### L [id number] ####[facility] ([facility])[address] [place] [address] Potassium [Moles/Vol] 4.2 mmol/L Normal 3.5-5.1 [facility] Comment on above: Performed By: #### L [id number] ####[facility] ([facility])[address] [place] [address] Protein [Mass/Vol] 8.1 g/dL Normal 6.0-8.3 [facility] Comment on above: Performed By: #### L [id number] ####[facility] ([facility])[address] [place] [address] Sodium [Moles/Vol] 133 mmol/L Low 136-145 [facility] Comment on above: Performed By: #### L [id number] ####[facility] ([facility]ER)[address] [place] [address] Urea nitrogen [Mass/Vol] 34 mg/dL High 7-25 [facility] [place] Comment on above: Performed By: #### L [id number] ####[facility] ([facility]ER)[address] [place] [address] UREA NITROGEN/CREATININE (MASS RATIO) IN SER/PLAS 16.9 Normal [facility] [place] Comment on above: Performed By: #### L [id number] ####[facility] ([facility])[address] [place] [address] Labon 06-29-2024 Lab Normal [facility] [place] T3, FREEon 06-29-2024 TRIIODOTHYRONINE (T3) FREE (PG/ML) IN SER/PLAS 3.3 pg/mL Normal 2.5-3.9 [facility] [place] Comment on above: Performed By: #### L [id number] ####[facility] ([facility])[address] [place] [address] T4, FREEon 06-29-2024 THYROXINE (T4) FREE (NG/DL) IN SER/PLAS 0.55 ng/dL Low 0.71-1.85 [facility] [place] Comment on above: Performed By: #### L [id number] ####[facility] ([facility])[address] [place] [address] TSHon 06-29-2024 THYROTROPIN (MIU/L) IN SER/PLAS BY DETECTION LIMIT <= 0.05 MIU/L 0.19 mIU/L Low 0.34-5.60 [facility] [place] Comment on above: Performed By: #### L [id number] ####[facility] ([facility])[address] [place] [address] CBC WITH AUTO DIFFERENTIALon 06-07-2024 Basophils (Bld) [#/Vol] 0.06 10*3/uL Normal 0.00-0.20 [facility] [place] Comment on above: Performed By: #### L [id number] ####[facility] ([facility])[address] [place] [address] Basophils/100 WBC (Bld) 0.7 % Normal 0.0-1.0 [facility] Comment on above: Performed By: #### L [id number] ####[facility] ([facility])[address] [place] [address] Eosinophils (Bld) [#/Vol] 0.13 10*3/uL Normal 0.00-0.50 [facility] [place] Comment on above: Performed By: #### L [id number] ####[facility] ([facility]ER)[address] [place] [address] Eosinophils/100 WBC (Bld) 1.5 % Normal 0.0-6.0 [facility] [place] Comment on above: Performed By: #### L [id number] ####[facility] ([facility]ER)[address] [place] [address] Erythrocyte distribution width (RBC) [Ratio] 14.8 % Normal 11.5-15.0 [facility] [place] Comment on above: Performed By: #### L [id number] ####[facility] ([facility])[address] [place] [address] ERYTHROCYTE MEAN CORPUSCULAR HEMOGLOBIN CONCENTRATION (G/DL) BY AUTOMATED 32.5 g/dL Normal 32.0-35.0 [facility] [place] Comment on above: Performed By: #### L [id number] ####[facility] ([facility])[address] [place] [address] Hematocrit (Bld) [Volume fraction] 43.1 % Normal 39.0-55.0 [facility] [place] Comment on above: Performed By: #### L [id number] ####[facility] ([facility]ER)[address] [place] [address] Hemoglobin (Bld) [Mass/Vol] 14.0 g/dL Normal 13.0-17.0 [facility] [place] Comment on above: Performed By: #### L [id number] ####[facility] ([facility]ER)[address] [place] [address] Immature granulocytes (Bld) [#/Vol] 0.03 10*3/uL Normal 0.00-0.20 [facility] [place] Comment on above: Performed By: #### L [id number] ####[facility] ([facility]ER)[address] [place] [address] Immature granulocytes/100 WBC (Bld) 0.3 % Normal 0.0-1.0 [facility] [place] Comment on above: Performed By: #### L [id number] ####[facility] ([facility]ER)[address] [place] [address] Lymphocytes (Bld) [#/Vol] 2.02 10*3/uL Normal 1.20-4.00 [facility] [place] Comment on above: Performed By: #### L [id number] ####[facility] ([facility]ER)[address] [place] [address] Lymphocytes/100 WBC (Bld) 23.2 % Normal 20.0-45.0 [facility] [place] Comment on above: Performed By: #### L [id number] ####[facility] ([facility]ER)[address] [place] [address] MCH (RBC) [Entitic mass] 29.9 pg Normal 27.0-33.0 [facility] [place] Comment on above: Performed By: #### L [id number] ####[facility] ([facility]ER)[address] [place] [address] MCV (RBC) [Entitic vol] 91.9 fL Normal 82.0-98.0 [facility] Comment on above: Performed By: #### L [id number] ####[facility] ([facility]ER)[address] [place] [address] Monocytes (Bld) [#/Vol] 0.64 10*3/uL Normal 0.10-1.00 [facility] [place] Comment on above: Performed By: #### L [id number] ####[facility] ([facility])[address] [place] [address] Monocytes/100 WBC (Bld) 7.4 % Normal 5.0-12.0 [facility] Comment on above: Performed By: #### L [id number] ####[facility] ([facility])[address] [place] [address] Neutrophils (Bld) [#/Vol] 5.81 10*3/uL Normal 1.60-7.60 [facility] [place] Comment on above: Performed By: #### L [id number] ####[facility] ([facility]ER)[address] [place] [address] Neutrophils/100 WBC (Bld) 66.9 % Normal 40.0-72.0 [facility] [place] Comment on above: Performed By: #### L [id number] ####[facility] ([facility])[address] [address] NRBC (PER 100 WBCS) BY AUTOMATED COUNT 0.0 % Normal 0 [facility] [place] Comment on above: Performed By: #### L [id number] ####[facility] ([facility])[address] [place] [address] PLATELETS (10*3/UL) IN BLOOD AUTOMATED COUNT 300 10*3/uL Normal 150-400 [facility] [place] Comment on above: Performed By: #### L [id number] ####[facility] ([facility])[address] [place] [address] RBC (Bld) [#/Vol] 4.69 10*6/uL Normal 4.20-5.70 [facility] Comment on above: Performed By: #### L [id number] ####[facility] ([facility])[address] [place] [address] WBC (Bld) [#/Vol] 8.69 10*3/uL Normal 4.00-10.60 [facility] Comment on above: Performed By: #### L [id number] ####[facility] ([facility])[address] [place] [address] COMPREHENSIVE METABOLIC PANE Sonido 06-07-2024 Albumin [Mass/Vol] 4.1 g/dL Normal 3.5-5.7 [facility] Comment on above: Performed By: #### L [id number] ####[facility] ([facility])[address] [place] [address] ALP [Catalytic activity/Vol] 108 U/L High 34-104 [facility] [place] Comment on above: Performed By: #### L [id number] ####[facility] ([facility])[address] [place] [address] ALT [Catalytic activity/Vol] 13 U/L Normal 7-52 [facility] [place] Comment on above: Performed By: #### L [id number] ####[facility] ([facility])[address] [place] [address] Anion gap [Moles/Vol] 13 mmol/L Normal 7-20 [facility] Comment on above: Performed By: #### L [id number] ####[facility] ([facility])[address] [place] [address] AST [Catalytic activity/Vol] 13 U/L Normal 13-39 [facility] [place] Comment on above: Performed By: #### L [id number] ####[facility] ([facility]ER)[address] [place] [address] Bilirubin [Mass/Vol] 0.6 mg/dL Normal 0.3-1.0 [facility] Comment on above: Performed By: #### L [id number] ####[facility] (BEAKER)[address] [place] [address] Calcium [Mass/Vol] 10.4 mg/dL High 8.6-10.3 [facility] Comment on above: Performed By: #### L [id number] ####[facility] ([facility]ER)[address] [place] [address] Chloride [Moles/Vol] 102 mmol/L Normal 98-107 [facility] Comment on above: Performed By: #### L [id number] ####[facility] ([facility]AKER)[address] [place] [address] CO2 [Moles/Vol] 24 mmol/L Normal 21-31 [facility] Comment on above: Performed By: #### L [id number] ####[facility] ([facility]AKER)[address] [place] [address] Creatinine [Mass/Vol] 1.77 mg/dL High 0.70-1.30 [facility] Comment on above: Performed By: #### L [id number] ####[facility] ([facility]AKER)[address] [place] [address] GLOMERULAR FILTRATION RATE ML/MIN/1.73 SQ M.PREDICTED 41.8 mL/min/1.73m*2 Low >60.0 [facility] Comment on above: Result Comment: The [facility] [place]???s estimated glomerular filtration rate (eGFR) will no [...] of individuals. Performed By: #### L [id number] ####[facility] ([facility])[address] [place] [address] Glucose [Mass/Vol] 181 mg/dL High 70-100 [facility] Comment on above: Performed By: #### L [id number] ####[facility] ([facility])[address] [place] [address] Potassium [Moles/Vol] 4.6 mmol/L Normal 3.5-5.1 [facility] Comment on above: Performed By: #### L [id number] ####[facility] ([facility])[address] [place] [address] Protein [Mass/Vol] 7.8 g/dL Normal 6.0-8.3 [facility] Comment on above: Performed By: #### L [id number] ####[facility] (BEAKER)[address] [place] [address] Sodium [Moles/Vol] 134 mmol/L Low 136-145 [facility] Comment on above: Performed By: #### L [id number] ####[facility] (BEAKER)[address] [place] [address] Urea nitrogen [Mass/Vol] 31 mg/dL High 7-25 [facility] [place] Comment on above: Performed By: #### L [id number] ####[facility] (BEAKER)[address] [place] [address] UREA NITROGEN/CREATININE (MASS RATIO) IN SER/PLAS 17.5 Normal [facility] [place] Comment on above: Performed By: #### L [id number] ####[facility] ([facility])[address] [place] [address] Follow-Upon 06-07-2024 Follow-Up Normal [facility] Labon 06-07-2024 Lab Normal [facility] T3, FREEon 06-07-2024 TRIIODOTHYRONINE (T3) FREE (PG/ML) IN SER/PLAS 3.1 pg/mL Normal 2.5-3.9 [facility] Comment on above: Performed By: #### L [id number] ####[facility] ([facility])[address] [place] [address] T4, FREEon 06-07-2024 THYROXINE (T4) FREE (NG/DL) IN SER/PLAS 0.55 ng/dL Low 0.71-1.85 [facility] [place] Comment on above: Performed By: #### L [id number] ####[facility] ([facility])[address] [place] [address] TSHon 06-07-2024 THYROTROPIN (MIU/L) IN SER/PLAS BY DETECTION LIMIT <= 0.05 MIU/L 0.25 mIU/L Low 0.34-5.60 [facility] [place] Comment on above: Performed By: #### L [id number] ####[facility] ([facility])[address] [place] [address] MR LUMBAR SPINE WO CONTRASTo n 06-06-2024 MR LUMBAR SPINE WO CONTRAST Invalid Interpretation Code [facility] POCT GLUCOSE METER UNSOLICIT ED RESULTSon 06-05-2024 Glucose [Mass/Vol] 125 mg/dL High 70-105 [facility] Comment on above: Order Comment: Waive d Testing in the ED is performed under the ED CLIA certificate #[id number]. Result Comment: epit [email or web address] Performed By: #### L [id number] ####[facility] ([facility] [place] [address] Abstracton 05-24-2024 Abstract Normal [facility] Letter (Out)on 05-24-2024 Letter (Out) Normal [facility] 29on 05-19-2024 29 Addended by: JEWELL MERINO on: 06/16/2024 12:06 PM Modules accepted: Orders Normal [facility] COMPREHENSIVE METABOLIC PANE Sonido 05-19-2024 Albumin [Mass/Vol] 3.9 g/dL Normal 3.5-5.7 [facility] Comment on above: Performed By: #### L [id number] ####[facility] ([facility])[address] [place] [address] ALP [Catalytic activity/Vol] 103 U/L Normal 34-104 [facility] [place] Comment on above: Performed By: #### L [id number] ####[facility] ([facility])[address] [place] [address] ALT [Catalytic activity/Vol] 13 U/L Normal 7-52 [facility] Comment on above: Performed By: #### L [id number] ####[facility] ([facility])[address] [place] [address] Anion gap [Moles/Vol] 14 mmol/L Normal 7-20 [facility] Comment on above: Performed By: #### L [id number] ####[facility] ([facility] [place] [address] AST [Catalytic activity/Vol] 11 U/L Low 13-39 [facility] Comment on above: Performed By: #### L [id number] ####[facility] (BEAKER)[address] [place] [address] Bilirubin [Mass/Vol] 0.4 mg/dL Normal 0.3-1.0 [facility] Comment on above: Performed By: #### L [id number] ####[facility] ([facility]ER)[address] [place] [address] Calcium [Mass/Vol] 9.7 mg/dL Normal 8.6-10.3 [facility] Comment on above: Performed By: #### L [id number] ####[facility] ([facility])[address] [place] [address] Chloride [Moles/Vol] 102 mmol/L Normal 98-107 [facility] Comment on above: Performed By: #### L [id number] ####[facility] ([facility])[address] [place] [address] CO2 [Moles/Vol] 24 mmol/L Normal 21-31 [facility] Comment on above: Performed By: #### L [id number] ####[facility] ([facility])[address] [place] [address] Creatinine [Mass/Vol] 1.89 mg/dL High 0.70-1.30 [facility] Comment on above: Performed By: #### L [id number] ####[facility] ([facility])[address] [place] [address] GLOMERULAR FILTRATION RATE ML/MIN/1.73 SQ M.PREDICTED 38.7 mL/min/1.73m*2 Low >60.0 [facility] Comment on above: Result Comment: The [facility] [place]???s estimated glomerular filtration rate (eGFR) will no [...] of individuals. Performed By: #### L [id number] ####[facility] ([facility])[address] [place] [address] Glucose [Mass/Vol] 244 mg/dL High 70-100 [facility] Comment on above: Performed By: #### L [id number] ####[facility] ([facility])[address] [place] [address] Potassium [Moles/Vol] 4.4 mmol/L Normal 3.5-5.1 [facility] Comment on above: Performed By: #### L [id number] ####[facility] ([facility])[address] [place] [address] Protein [Mass/Vol] 7.4 g/dL Normal 6.0-8.3 [facility] Comment on above: Performed By: #### L [id number] ####[facility] ([facility])[address] [place] [address] Sodium [Moles/Vol] 136 mmol/L Normal 136-145 [facility] Comment on above: Performed By: #### L [id number] ####[facility] ([facility])[address] [place] [address] Urea nitrogen [Mass/Vol] 31 mg/dL High 7-25 [facility] Comment on above: Performed By: #### L [id number] ####[facility] ([facility])[address] [place] [address] UREA NITROGEN/CREATININE (MASS RATIO) IN SER/PLAS 16.4 Normal [facility] [place] Comment on above: Performed By: #### L [id number] ####[facility] ([facility])[address] [place] [address] IMMUNOFIXATION ELECTROPHORES Mohan 05-19-2024 IMMUNOFIXATION ELECTROPHORESIS 1 See attached report. Normal [facility] Comment on above: Performed By: #### L [id number] ####[facility] ([facility])[address] [place] [address] Magnesium [Mass/Vol] 1440 mg/dL Normal 591-1540 [facility] Comment on above: Performed By: #### L [id number] ####[facility] (BEAKER)[address] [place] [address] Magnesium [Mass/Vol] 363 mg/dL Normal 60-413 [facility] Comment on above: Performed By: #### L [id number] ####[facility] (BEAKER)[address] [facility] [place] [address] Magnesium [Mass/Vol] 79.2 mg/dL Normal 54-285 [facility] Comment on above: Performed By: #### L [id number] ####[facility] (BEAKER)[address] [facility] [place] [address] KAPPA / LAMBDA LIGHT CHAINS, FREEon 05-19-2024 IMMUNOGLOBULIN LIGHT CHAINS KAPPA/LAMBDA (MASS RATIO) IN SERUM 1.21 Normal 0.22-1.74 [facility] Comment on above: Result Comment: Test Performed by [employer] [address] [place] [id number] - Released 06/16/2024 19:34 Performed By: #### L [id number] ####[facility] [employer] [id number] [place] [address] IMMUNOGLOBULIN LIGHT CHAINS.KAPPA (MG/DL) IN SERUM 75.0 mg/L High <20.8 [facility] Comment on above: Result Comment: Perf ormed using [employer] reagent on [employer]. Results obtained with different assay methods cannot be used interchangeably. Performed By: #### L [id number] ####[employer] [id number] [place] [address] IMMUNOGLOBULIN LIGHT CHAINS.LAMBDA (MG/DL) IN SERUM 61.8 mg/L High 4.2-27.7 [facility] Comment on above: Result Comment: Perf ormed using [employer] reagent on [employer]. Results obtained with different assay methods cannot be used interchangeably. Performed By: #### L [id number] ####[employer] [id number] [place] [address] Labon 05-19-2024 Lab Normal [facility] MAGNESIUMon 05-19-2024 Magnesium [Mass/Vol] 1.8 mg/dL Low 1.9-2.7 [facility] Comment on above: Performed By: #### L [id number] ####[facility] ([place])[address] [facility] [place] [address] Orders Onlyon 05-19-2024 Orders Only Normal [facility] PHOSPHORUSon 05-19-2024 Magnesium [Mass/Vol] 3.1 mg/dL Normal 2.5-5.0 [facility] Comment on above: Performed By: #### L [id number] ####[facility] ([facility] [place] [address] PROTEIN ELECTROPHORESIS, SER UMon 05-19-2024 Protein [Mass/Vol] 7.3 g/dL Normal 6.0-8.3 [facility] Comment on above: Performed By: #### L [id number] ####[facility] ([facility])[address] [place] [address] PROTEIN FRACTION (INTERPRETATION) IN SER/PLAS BY ELECTROPHORESIS Please see attached report. Normal [facility] Comment on above: Performed By: #### L [id number] ####[facility] ([facility])[address] [place] [address] PROTEIN ELECTROPHORESIS, URI NE, 24 HOURon 05-19-2024 Protein (U) [Mass/Vol] 13.6 mg/dL Normal [facility] Comment on above: Result Comment: Ther e are no established reference values for random urine specimens. Performed By: #### L [id number] ####[facility] ([facility])[address] [place] [address] UPEP INTERPRETATION Please see attached report. Normal [facility] Comment on above: Performed By: #### L [id number] ####[facility] ([facility])[address] [place] [address] PTH, INTACTon 05-19-2024 PARATHYRIN INTACT (PG/ML) IN SER/PLAS 234 pg/mL High 12-88 [facility] Comment on above: Performed By: #### L [id number] ####[facility] ([facility])[address] [place] [address] PTH-RELATED PEPTIDEon 2023 PTH-RELATED PROTEIN PLASMA 4.1 pmol/L High 0.0-2.3 [facility] Comment on above: Result Comment: INTE RPRETIVE INFORMATION: Parathyroid Hormone-Related PeptideThis test was developed and its performance characteristicsdetermined by [employer]. It has not been cleared orapproved by the [place] Food and Drug Administration. This test wasperformed in a CLIA certified laboratory and is intended forclinical purposes.Performed By: [email or web address] [place] [id number] Director: Devon Romeo MD, PhDCLIA Number: [id number] Performed By: #### L [id number] ####[facility] (BEAKER)[address] [place] [address] T4, FREEon 05-19-2024 THYROXINE (T4) FREE (NG/DL) IN SER/PLAS 0.68 ng/dL Low 0.71-1.85 [facility] Comment on above: Performed By: #### L [id number] ####[facility] (BEAKER)[address] [place] [address] URIC ACIDon 05-19-2024 Magnesium [Mass/Vol] 6.2 mg/dL Normal 4.4-7.6 [facility] Comment on above: Performed By: #### L [id number] ####[facility] (BEAKER)[address] [place] [address] VITAMIN D 1,25 DIHYDROXYon 0 05-19-2024 VITAMIN D 1,25-DIHYDROXY 28.3 pg/mL Normal 19.9-79.3 [facility] Comment on above: Result Comment: INTE RPRETIVE INFORMATION: Vitamin D, 1,25-DihydroxyThis test is primarily indicated during patient evaluation forhypercalcemia and renal failure. A normal result does not rule outVitamin D deficiency. The recommended test for diagnosing VitaminD deficiency is Vitamin D 25-hydroxy.Performed By: [email or web address] [place] [id number] Director: Devon Romeo MD, PhDCLIA Number: [id number] Performed By: #### L [id number] ####[facility] ([facility] [place] [address] VITAMIN D 25 HYDROXYon 05-19 CALCIDIOL (25 [place] VITAMIN D3) (NG/ML) IN SER/PLAS 25.0 ng/mL Low 30.0-80.0 [facility] Comment on above: Result Comment: >80. 0 Toxicity possible Performed By: #### L [id number] ####[facility] (BEAKER)[address] [place] [address] CBC WITH AUTO DIFFERENTIALon 05-18-2024 Basophils (Bld) [#/Vol] 0.04 10*3/uL Normal 0.00-0.20 [facility] Comment on above: Performed By: #### L [id number] ####[facility] (BEAKER)[address] [place] [address] Basophils/100 WBC (Bld) 0.5 % Normal 0.0-1.0 [facility] Comment on above: Performed By: #### L [id number] ####[facility] (BEAKER)[address] [place] [address] Eosinophils (Bld) [#/Vol] 0.11 10*3/uL Normal 0.00-0.50 [facility] Comment on above: Performed By: #### L [id number] ####[facility] (BEAKER)[address] [place] [address] Eosinophils/100 WBC (Bld) 1.5 % Normal 0.0-6.0 [facility] Comment on above: Performed By: #### L [id number] ####[facility] (BEAKER)[address] [place] [address] Erythrocyte distribution width (RBC) [Ratio] 14.5 % Normal 11.5-15.0 [facility] Comment on above: Performed By: #### L [id number] ####[facility] (BEAKER)[address] [place] [address] ERYTHROCYTE MEAN CORPUSCULAR HEMOGLOBIN CONCENTRATION (G/DL) BY AUTOMATED 32.3 g/dL Normal 32.0-35.0 [facility] Comment on above: Performed By: #### L [id number] ####[facility] (BEAKER)[address] [place] [address] Hematocrit (Bld) [Volume fraction] 44.3 % Normal 39.0-55.0 [facility] Comment on above: Performed By: #### L [id number] ####[facility] (BEAKER)[address] [place] [address] Hemoglobin (Bld) [Mass/Vol] 14.3 g/dL Normal 13.0-17.0 [facility] Comment on above: Performed By: #### L [id number] ####[facility] (BEAKER)[address] [place] [address] Immature granulocytes (Bld) [#/Vol] 0.02 10*3/uL Normal 0.00-0.20 [facility] Comment on above: Performed By: #### L [id number] ####[facility] (BEAKER)[address] [place] [address] Immature granulocytes/100 WBC (Bld) 0.3 % Normal 0.0-1.0 [facility] Comment on above: Performed By: #### L [id number] ####[facility] (BEAKER)[address] [place] [address] Lymphocytes (Bld) [#/Vol] 1.70 10*3/uL Normal 1.20-4.00 [facility] Comment on above: Performed By: #### L [id number] ####[facility] (BEAKER)[address] [place] [address] Lymphocytes/100 WBC (Bld) 22.7 % Normal 20.0-45.0 [facility] Comment on above: Performed By: #### L [id number] ####[facility] (BEAKER)[address] [place] [address] MCH (RBC) [Entitic mass] 30.0 pg Normal 27.0-33.0 [facility] Comment on above: Performed By: #### L [id number] ####[facility] (BEAKER)[address] [place] [address] MCV (RBC) [Entitic vol] 93.1 fL Normal 82.0-98.0 [facility] Comment on above: Performed By: #### L [id number] ####[facility] (BEAKER)[address] [place] [address] Monocytes (Bld) [#/Vol] 0.65 10*3/uL Normal 0.10-1.00 [facility] Comment on above: Performed By: #### L [id number] ####[facility] ([facility])[address] [place] [address] Monocytes/100 WBC (Bld) 8.7 % Normal 5.0-12.0 [facility] Comment on above: Performed By: #### L [id number] ####[facility] (BEAKER)[address] [place] [address] Neutrophils (Bld) [#/Vol] 4.97 10*3/uL Normal 1.60-7.60 [facility] Comment on above: Performed By: #### L [id number] ####[facility] ([facility])[address] [place] [address] Neutrophils/100 WBC (Bld) 66.3 % Normal 40.0-72.0 [facility] Comment on above: Performed By: #### L [id number] ####[facility] (BEAKER)[address] [place] [address] NRBC (PER 100 WBCS) BY AUTOMATED COUNT 0.0 % Normal 0 [facility] Comment on above: Performed By: #### L [id number] ####[facility] ([facility] [place] [address] PLATELETS (10*3/UL) IN BLOOD AUTOMATED COUNT 295 10*3/uL Normal 150-400 [facility] Comment on above: Performed By: #### L [id number] ####[facility] (BEAKER)[address] [place] [address] RBC (Bld) [#/Vol] 4.76 10*6/uL Normal 4.20-5.70 [facility] Comment on above: Performed By: #### L [id number] ####[facility] ([facility])[address] [place] [address] WBC (Bld) [#/Vol] 7.49 10*3/uL Normal 4.00-10.60 [facility] Comment on above: Performed By: #### L [id number] ####[facility] ([facility])[address] [place] [address] COMPREHENSIVE METABOLIC PANE Sonido 05-18-2024 Albumin [Mass/Vol] 4.2 g/dL Normal 3.5-5.7 [facility] Comment on above: Performed By: #### L [id number] ####[facility] ([facility])[address] [place] [address] ALP [Catalytic activity/Vol] 116 U/L High 34-104 [facility] Comment on above: Performed By: #### L [id number] ####[facility] ([facility])[address] [place] [address] ALT [Catalytic activity/Vol] 15 U/L Normal 7-52 [facility] Comment on above: Performed By: #### L [id number] ####[facility] ([facility])[address] [place] [address] Anion gap [Moles/Vol] 16 mmol/L Normal 7-20 [facility] Comment on above: Performed By: #### L [id number] ####[facility] [facility] ([facility])[address] [place] [address] AST [Catalytic activity/Vol] 16 U/L Normal 13-39 [facility] [place] Comment on above: Performed By: #### L [id number] ####[facility] ([facility])[address] [place] [address] Bilirubin [Mass/Vol] 0.7 mg/dL Normal 0.3-1.0 [facility] Comment on above: Performed By: #### L [id number] ####[facility] ([facility])[address] [place] [address] Calcium [Mass/Vol] 10.5 mg/dL High 8.6-10.3 [facility] Comment on above: Performed By: #### L [id number] ####[facility] ([facility])[address] [place] [address] Chloride [Moles/Vol] 102 mmol/L Normal 98-107 [facility] Comment on above: Performed By: #### L [id number] ####[facility] ([facility])[address] [place] [address] CO2 [Moles/Vol] 21 mmol/L Normal 21-31 [facility] Comment on above: Performed By: #### L [id number] ####[facility] ([facility])[address] [place] [address] Creatinine [Mass/Vol] 1.87 mg/dL High 0.70-1.30 [facility] Comment on above: Performed By: #### L [id number] ####[facility] ([facility])[address] [place] [address] GLOMERULAR FILTRATION RATE ML/MIN/1.73 SQ M.PREDICTED 39.2 mL/min/1.73m*2 Low >60.0 [facility] [place] Comment on above: Result Comment: The [facility] [place]???s estimated glomerular filtration rate (eGFR) will no [...] of individuals. Performed By: #### L [id number] ####[facility] ([facility])[address] [place] [address] Glucose [Mass/Vol] 175 mg/dL High 70-100 [facility] Comment on above: Performed By: #### L [id number] ####[facility] ([facility])[address] [place] [address] Potassium [Moles/Vol] 4.8 mmol/L Normal 3.5-5.1 [facility] Comment on above: Performed By: #### L [id number] ####[facility] ([facility])[address] [place] [address] Protein [Mass/Vol] 8.0 g/dL Normal 6.0-8.3 [facility] Comment on above: Performed By: #### L [id number] ####[facility] ([facility])[address] [place] [address] Sodium [Moles/Vol] 134 mmol/L Low 136-145 [facility] Comment on above: Performed By: #### L [id number] ####[facility] ([facility])[address] [place] [address] Urea nitrogen [Mass/Vol] 32 mg/dL High 7-25 [facility] [place] Comment on above: Performed By: #### L [id number] ####[facility] ([facility])[address] [place] [address] UREA NITROGEN/CREATININE (MASS RATIO) IN SER/PLAS 17.1 Normal [facility] [place] Comment on above: Performed By: #### L [id number] ####[facility] ([facility])[address] [place] [address] CREATININE, URINE, RANDOMon 05-18-2024 Creatinine (U) [Mass/Vol] 87.0 mg/dL Normal 26-299 [facility] [place] Comment on above: Performed By: #### L [id number] ####[facility] ([facility])[address] [place] [address] Labon 05-18-2024 Lab Normal [facility] [place] PROTEIN, URINE, RANDOMon Protein (U) [Mass/Vol] 198.3 mg/dL Normal [facility] Comment on above: Result Comment: Ther e are no established reference values for random urine specimens. Performed By: #### L [id number] ####[facility] ([facility])[address] [place] [address] T3, FREEon 05-18-2024 TRIIODOTHYRONINE (T3) FREE (PG/ML) IN SER/PLAS 3.0 pg/mL Normal 2.5-3.9 [facility] [place] Comment on above: Performed By: #### L [id number] ####[facility] ([facility])[address] [place] [address] TSHon 05-18-2024 THYROTROPIN (MIU/L) IN SER/PLAS BY DETECTION LIMIT <= 0.05 MIU/L 0.49 mIU/L Normal 0.34-5.60 [facility] [place] Comment on above: Performed By: #### L [id number] ####[facility] ([facility])[address] [place] [address] 36on 05-11-2024 36 Scheduled [facility] 36on 05-09-2024 36 [phone] call banner seun to schedule mri follow up It is scheduled 06/06 thank you [facility] Follow-Upon 04-28-2024 Follow-Up [facility] Infusionon 04-28-2024 Infusion [facility] ANAon 04-27-2024 JOHNNY PATTERN Nucleolar [facility] Comment on above: Performed By: #### L [id number] ####[facility] ([facility])[address] [place] [address] JOHNNY TITER 1:40 Normal <=1:40 [facility] [place] Comment on above: Result Comment: Test performed using HOLLI IFA JOHNNY Hep-2 Test, a pre-standardized assay designed for the qualitative and semi-quantitative detection of antinuclear antibodies. Performed By: #### L [id number] ####[facility] ([facility])[address] [place] [address] C3 COMPLEMENTon 04-27-2024 Magnesium [Mass/Vol] 130.00 mg/dL Normal 79.00-1 52. 00 [facility] [place] Comment on above: Performed By: #### L [id number] ####[facility] ([facility])[address] [place] [address] C4 COMPLEMENTon 04-27-2024 Magnesium [Mass/Vol] 53.3 mg/dL High 16-38 [facility] Comment on above: Performed By: #### L [id number] ####[facility] ([facility])[address] [place] [address] CBC WITH AUTO DIFFERENTIALon 04-27-2024 Basophils (Bld) [#/Vol] 0.04 10*3/uL Normal 0.00-0.20 [facility] [place] Comment on above: Performed By: #### L [id number] ####[facility] ([facility])[address] [place] [address] Basophils/100 WBC (Bld) 0.6 % Normal 0.0-1.0 [facility] Comment on above: Performed By: #### L [id number] ####[facility] ([facility])[address] [place] [address] Eosinophils (Bld) [#/Vol] 0.10 10*3/uL Normal 0.00-0.50 [facility] [place] Comment on above: Performed By: #### L [id number] ####[facility] ([facility])[address] [place] [address] Eosinophils/100 WBC (Bld) 1.4 % Normal 0.0-6.0 [facility] [place] Comment on above: Performed By: #### L [id number] ####[facility] ([facility])[address] [place] [address] Erythrocyte distribution width (RBC) [Ratio] 14.2 % Normal 11.5-15.0 [facility] [place] Comment on above: Performed By: #### L [id number] ####[facility] ([facility])[address] [place] [address] ERYTHROCYTE MEAN CORPUSCULAR HEMOGLOBIN CONCENTRATION (G/DL) BY AUTOMATED 32.9 g/dL Normal 32.0-35.0 [facility] [place] Comment on above: Performed By: #### L [id number] ####[facility] ([facility])[address] [place] [address] Hematocrit (Bld) [Volume fraction] 42.9 % Normal 39.0-55.0 [facility] [place] Comment on above: Performed By: #### L [id number] ####[facility] ([facility])[address] [place] [address] Hemoglobin (Bld) [Mass/Vol] 14.1 g/dL Normal 13.0-17.0 [facility] [place] Comment on above: Performed By: #### L [id number] ####[facility] ([facility])[address] [place] [address] Immature granulocytes (Bld) [#/Vol] 0.02 10*3/uL Normal 0.00-0.20 [facility] [place] Comment on above: Performed By: #### L [id number] ####[facility] ([facility])[address] [place] [address] Immature granulocytes/100 WBC (Bld) 0.3 % Normal 0.0-1.0 [facility] [place] Comment on above: Performed By: #### L [id number] ####[facility] ([facility])[address] [place] [address] Lymphocytes (Bld) [#/Vol] 1.89 10*3/uL Normal 1.20-4.00 [facility] [place] Comment on above: Performed By: #### L [id number] ####[facility] ([facility])[address] [place] [address] Lymphocytes/100 WBC (Bld) 26.0 % Normal 20.0-45.0 [facility] [place] Comment on above: Performed By: #### L [id number] ####[facility] ([facility])[address] [place] [address] MCH (RBC) [Entitic mass] 29.9 pg Normal 27.0-33.0 [facility] [place] Comment on above: Performed By: #### L [id number] ####[facility] ([facility])[address] [place] [address] MCV (RBC) [Entitic vol] 91.1 fL Normal 82.0-98.0 [facility] Comment on above: Performed By: #### L [id number] ####[facility] ([facility])[address] [place] [address] Monocytes (Bld) [#/Vol] 0.68 10*3/uL Normal 0.10-1.00 [facility] [place] Comment on above: Performed By: #### L [id number] ####[facility] ([facility])[address] [place] [address] Monocytes/100 WBC (Bld) 9.4 % Normal 5.0-12.0 [facility] Comment on above: Performed By: #### L [id number] ####[facility] ([facility])[address] [place] [address] Neutrophils (Bld) [#/Vol] 4.54 10*3/uL Normal 1.60-7.60 [facility] [place] Comment on above: Performed By: #### L [id number] ####[facility] ([facility])[address] [place] [address] Neutrophils/100 WBC (Bld) 62.3 % Normal 40.0-72.0 [facility] [place] Comment on above: Performed By: #### L [id number] ####[facility] ([facility])[address] [place] [address] NRBC (PER 100 WBCS) BY AUTOMATED COUNT 0.0 % Normal 0 [facility] [place] Comment on above: Performed By: #### L [id number] ####[facility] ([facility])[address] [place] [address] PLATELETS (10*3/UL) IN BLOOD AUTOMATED COUNT 289 10*3/uL Normal 150-400 [facility] [place] Comment on above: Performed By: #### L [id number] ####[facility] ([facility])[address] [place] [address] RBC (Bld) [#/Vol] 4.71 10*6/uL Normal 4.20-5.70 [facility] Comment on above: Performed By: #### L [id number] ####[facility] ([facility])[address] [place] [address] WBC (Bld) [#/Vol] 7.27 10*3/uL Normal 4.00-10.60 [facility] Comment on above: Performed By: #### L [id number] ####[facility] ([facility])[address] [place] [address] COMPREHENSIVE METABOLIC PANE Sonido 04-27-2024 Albumin [Mass/Vol] 3.9 g/dL Normal 3.5-5.7 [facility] Comment on above: Performed By: #### L [id number] ####[facility] ([facility])[address] [place] [address] ALP [Catalytic activity/Vol] 118 U/L High 34-104 [facility] [place] Comment on above: Performed By: #### L [id number] ####[facility] ([facility])[address] [place] [address] ALT [Catalytic activity/Vol] 16 U/L Normal 7-52 [facility] [place] Comment on above: Performed By: #### L [id number] ####[facility] ([facility])[address] [place] [address] Anion gap [Moles/Vol] 13 mmol/L Normal 7-20 [facility] Comment on above: Performed By: #### L [id number] ####[facility] ([facility])[address] [place] [address] AST [Catalytic activity/Vol] 16 U/L Normal 13-39 [facility] [place] Comment on above: Performed By: #### L [id number] ####[facility] ([facility])[address] [place] [address] Bilirubin [Mass/Vol] 0.5 mg/dL Normal 0.3-1.0 [facility] Comment on above: Performed By: #### L [id number] ####[facility] ([facility])[address] [place] [address] Calcium [Mass/Vol] 10.2 mg/dL Normal 8.6-10.3 [facility] Comment on above: Performed By: #### L [id number] ####[facility] ([facility])[address] [place] [address] Chloride [Moles/Vol] 104 mmol/L Normal 98-107 [facility] Comment on above: Performed By: #### L [id number] ####[facility] ([facility])[address] [place] [address] CO2 [Moles/Vol] 25 mmol/L Normal 21-31 [facility] Comment on above: Performed By: #### L [id number] ####[facility] ([facility])[address] [place] [address] Creatinine [Mass/Vol] 1.87 mg/dL High 0.70-1.30 [facility] Comment on above: Performed By: #### L [id number] ####[facility] ([facility])[address] [place] [address] GLOMERULAR FILTRATION RATE ML/MIN/1.73 SQ M.PREDICTED 39.2 mL/min/1.73m*2 Low >60.0 [facility] [place] Comment on above: Result Comment: The [facility] [place]???s estimated glomerular filtration rate (eGFR) will no [...] of individuals. Performed By: #### L [id number] ####[facility] ([facility])[address] [place] [address] Glucose [Mass/Vol] 143 mg/dL High 70-100 [facility] Comment on above: Performed By: #### L [id number] ####[facility] ([facility])[address] [place] [address] Potassium [Moles/Vol] 4.8 mmol/L Normal 3.5-5.1 [facility] Comment on above: Performed By: #### L [id number] ####[facility] ([facility])[address] [place] [address] Protein [Mass/Vol] 7.7 g/dL Normal 6.0-8.3 [facility] Comment on above: Performed By: #### L [id number] ####[facility] ([facility])[address] [place] [address] Sodium [Moles/Vol] 137 mmol/L Normal 136-145 [facility] Comment on above: Performed By: #### L [id number] ####[facility] ([facility])[address] [place] [address] Urea nitrogen [Mass/Vol] 27 mg/dL High 7-25 [facility] [place] Comment on above: Performed By: #### L [id number] ####[facility] ([facility])[address] [place] [address] UREA NITROGEN/CREATININE (MASS RATIO) IN SER/PLAS 14.4 Normal [facility] [place] Comment on above: Performed By: #### L [id number] ####[facility] ([facility])[address] [place] [address] Labon 04-27-2024 Lab Normal [facility] MAGNESIUMon 04-27-2024 Magnesium [Mass/Vol] 1.9 mg/dL Normal 1.9-2.7 [facility] Comment on above: Performed By: #### L [id number] ####[facility] ([facility])[address] [place] [address] PHOSPHORUSon 04-27-2024 Magnesium [Mass/Vol] 3.1 mg/dL Normal 2.5-5.0 [facility] Comment on above: Performed By: #### L [id number] ####[facility] ([facility])[address] [place] [address] T3, FREEon 04-27-2024 TRIIODOTHYRONINE (T3) FREE (PG/ML) IN SER/PLAS 2.8 pg/mL Normal 2.5-3.9 [facility] [place] Comment on above: Performed By: #### L [id number] ####[facility] ([facility])[address] [place] [address] T4, FREEon 04-27-2024 THYROXINE (T4) FREE (NG/DL) IN SER/PLAS 0.73 ng/dL Normal 0.71-1.85 [facility] [place] Comment on above: Performed By: #### L [id number] ####[facility] ([facility])[address] [place] [address] TSHon 04-27-2024 THYROTROPIN (MIU/L) IN SER/PLAS BY DETECTION LIMIT <= 0.05 MIU/L 0.75 mIU/L Normal 0.34-5.60 [facility] [place] Comment on above: Performed By: #### L [id number] ####[facility] ([facility])[address] [place] [address] CBC WITH AUTO DIFFERENTIALon 04-04-2024 Basophils (Bld) [#/Vol] 0.05 10*3/uL Normal 0.00-0.20 [facility] [place] Comment on above: Performed By: #### L [id number] ####[facility] ([facility])[address] [place] [address] Basophils/100 WBC (Bld) 0.7 % Normal 0.0-1.0 [facility] Comment on above: Performed By: #### L [id number] ####[facility] ([facility])[address] [place] [address] Eosinophils (Bld) [#/Vol] 0.14 10*3/uL Normal 0.00-0.50 [facility] [place] Comment on above: Performed By: #### L [id number] ####[facility] ([facility])[address] [place] [address] Eosinophils/100 WBC (Bld) 2.0 % Normal 0.0-6.0 [facility] [place] Comment on above: Performed By: #### L [id number] ####[facility] ([facility])[address] [place] [address] Erythrocyte distribution width (RBC) [Ratio] 14.3 % Normal 11.5-15.0 [facility] [place] Comment on above: Performed By: #### L [id number] ####[facility] ([facility])[address] [place] [address] ERYTHROCYTE MEAN CORPUSCULAR HEMOGLOBIN CONCENTRATION (G/DL) BY AUTOMATED 33.4 g/dL Normal 32.0-35.0 [facility] [place] Comment on above: Performed By: #### L [id number] ####[facility] ([facility])[address] [place] [address] Hematocrit (Bld) [Volume fraction] 40.7 % Normal 39.0-55.0 [facility] Comment on above: Performed By: #### L [id number] ####[facility] ([facility])[address] [place] [address] Hemoglobin (Bld) [Mass/Vol] 13.6 g/dL Normal 13.0-17.0 [facility] [place] Comment on above: Performed By: #### L [id number] ####[facility] ([facility])[address] [place] [address] Immature granulocytes (Bld) [#/Vol] 0.02 10*3/uL Normal 0.00-0.20 [facility] Comment on above: Performed By: #### L [id number] ####[facility] ([facility])[address] [place] [address] Immature granulocytes/100 WBC (Bld) 0.3 % Normal 0.0-1.0 [facility] Comment on above: Performed By: #### L [id number] ####[facility] ([facility])[address] [place] [address] Lymphocytes (Bld) [#/Vol] 1.70 10*3/uL Normal 1.20-4.00 [facility] Comment on above: Performed By: #### L [id number] ####[facility] ([facility])[address] [place] [address] Lymphocytes/100 WBC (Bld) 24.0 % Normal 20.0-45.0 [facility] Comment on above: Performed By: #### L [id number] ####[facility] ([facility])[address] [place] [address] MCH (RBC) [Entitic mass] 29.6 pg Normal 27.0-33.0 [facility] Comment on above: Performed By: #### L [id number] ####[facility] ([facility])[address] [place], [place] [address] MCV (RBC) [Entitic vol] 88.7 fL Normal 82.0-98.0 [facility] Comment on above: Performed By: #### L [id number] ####[facility] ([facility])[address] [place], [place] [address] Monocytes (Bld) [#/Vol] 0.55 10*3/uL Normal 0.10-1.00 [facility] Comment on above: Performed By: #### L [id number] ####[facility] ([facility])[address] [place] [address] Monocytes/100 WBC (Bld) 7.8 % Normal 5.0-12.0 [facility] Comment on above: Performed By: #### L [id number] ####[facility] ([facility])[address] [place] [address] Neutrophils (Bld) [#/Vol] 4.63 10*3/uL Normal 1.60-7.60 [facility] Comment on above: Performed By: #### L [id number] ####[facility] ([facility])[address] [place] [address] Neutrophils/100 WBC (Bld) 65.2 % Normal 40.0-72.0 [facility] Comment on above: Performed By: #### L [id number] ####[facility] [facility])[address] [address] NRBC (PER 100 WBCS) BY AUTOMATED COUNT 0.0 % Normal 0 [facility] [place] Comment on above: Performed By: #### L [id number] ####[facility] ([facility])[address] [place] [address] PLATELETS (10*3/UL) IN BLOOD AUTOMATED COUNT 320 10*3/uL Normal 150-400 [facility] [place] Comment on above: Performed By: #### L [id number] ####[facility] ([facility])[address] [place] [address] RBC (Bld) [#/Vol] 4.59 10*6/uL Normal 4.20-5.70 [facility] Comment on above: Performed By: #### L [id number] ####[facility] ([facility])[address] [address] WBC (Bld) [#/Vol] 7.09 10*3/uL Normal 4.00-10.60 [facility] Comment on above: Performed By: #### L [id number] ####[facility] ([facility])[address] [place] [address] COMPREHENSIVE METABOLIC PANE Sonido 04-04-2024 Albumin [Mass/Vol] 4.1 g/dL Normal 3.5-5.7 [facility] Comment on above: Performed By: #### L [id number] ####[facility] ([facility])[address] [place] [address] ALP [Catalytic activity/Vol] 104 U/L Normal 34-104 [facility] [place] Comment on above: Performed By: #### L [id number] ####[facility] ([facility])[address] [place] [address] ALT [Catalytic activity/Vol] 13 U/L Normal 7-52 [facility] [place] Comment on above: Performed By: #### L [id number] ####[facility] ([facility])[address] [place] [address] Anion gap [Moles/Vol] 14 mmol/L Normal 7-20 [facility] Comment on above: Performed By: #### L [id number] ####[facility] ([facility])[address] [place] [address] AST [Catalytic activity/Vol] 16 U/L Normal 13-39 [facility] [place] Comment on above: Performed By: #### L [id number] ####[facility] ([facility])[address] [place] [address] Bilirubin [Mass/Vol] 0.7 mg/dL Normal 0.3-1.0 [facility] Comment on above: Performed By: #### L [id number] ####[facility] ([facility])[address] [place] [address] Calcium [Mass/Vol] 10.2 mg/dL Normal 8.6-10.3 [facility] Comment on above: Performed By: #### L [id number] ####[facility] ([facility] [place] [address] Chloride [Moles/Vol] 104 mmol/L Normal 98-107 [facility] Comment on above: Performed By: #### L [id number] ####[facility] ([facility])[address] [place] [address] CO2 [Moles/Vol] 22 mmol/L Normal 21-31 [facility] Comment on above: Performed By: #### L [id number] ####[facility] ([facility])[address] [place] [address] Creatinine [Mass/Vol] 1.83 mg/dL High 0.70-1.30 [facility] Comment on above: Performed By: #### L [id number] ####[facility] ([facility])[address] [place] [address] GLOMERULAR FILTRATION RATE ML/MIN/1.73 SQ M.PREDICTED 40.2 mL/min/1.73m*2 Low >60.0 [facility] [place] Comment on above: Result Comment: The [facility] [place]???s estimated glomerular filtration rate (eGFR) will no [...] of individuals. Performed By: #### L [id number] ####[facility] ([facility])[address] [place] [address] Glucose [Mass/Vol] 147 mg/dL High 70-100 [facility] Comment on above: Performed By: #### L [id number] ####[facility] ([facility])[address] [place] [address] Potassium [Moles/Vol] 4.8 mmol/L Normal 3.5-5.1 [facility] Comment on above: Performed By: #### L [id number] ####[facility] ([facility])[address] [place] [address] Protein [Mass/Vol] 8.0 g/dL Normal 6.0-8.3 [facility] Comment on above: Performed By: #### L [id number] ####[facility] ([facility])[address] [place] [address] Sodium [Moles/Vol] 135 mmol/L Low 136-145 [facility] Comment on above: Performed By: #### L [id number] ####[facility] ([facility])[address] [place] [address] Urea nitrogen [Mass/Vol] 25 mg/dL Normal 7-25 [facility] [place] Comment on above: Performed By: #### L [id number] ####[facility] ([facility])[address] [place] [address] UREA NITROGEN/CREATININE (MASS RATIO) IN SER/PLAS 13.7 Normal [facility] [place] Comment on above: Performed By: #### L [id number] ####[facility] ([facility])[address] [place] [address] T3, FREEon 04-04-2024 TRIIODOTHYRONINE (T3) FREE (PG/ML) IN SER/PLAS 3.0 pg/mL Normal 2.5-3.9 [facility] [place] Comment on above: Performed By: #### L [id number] ####[facility] ([facility])[address] [place] [address] T4, FREEon 04-04-2024 THYROXINE (T4) FREE (NG/DL) IN SER/PLAS 1.05 ng/dL Normal 0.71-1.85 [facility] [place] Comment on above: Performed By: #### L [id number] ####[facility] ([facility])[address] [place] [address] TSHon 04-04-2024 THYROTROPIN (MIU/L) IN SER/PLAS BY DETECTION LIMIT <= 0.05 MIU/L 0.66 mIU/L Normal 0.34-5.60 [facility] [place] Comment on above: Performed By: #### L [id number] ####[facility] ([facility])[address] [place] [address] CT ABDOMEN PELVIS WO IV CONT RASTon 03-27-2024 CT ABDOMEN PELVIS WO IV CONTRAST Invalid Interpretation Code [facility] [place] CBC WITH AUTO DIFFERENTIALon 03-16-2024 Basophils (Bld) [#/Vol] 0.05 10*3/uL Normal 0.00-0.20 [facility] [place] Comment on above: Performed By: #### L [id number] ####[facility] ([facility])[address] [place] [address] Basophils/100 WBC (Bld) 0.6 % Normal 0.0-1.0 [facility] Comment on above: Performed By: #### L [id number] ####[facility] ([facility])[address] [place] [address] Eosinophils (Bld) [#/Vol] 0.11 10*3/uL Normal 0.00-0.50 [facility] [place] Comment on above: Performed By: #### L [id number] ####[facility] ([facility])[address] [place] [address] Eosinophils/100 WBC (Bld) 1.4 % Normal 0.0-6.0 [facility] [place] Comment on above: Performed By: #### L [id number] ####[facility] ([facility])[address] [place] [address] Erythrocyte distribution width (RBC) [Ratio] 14.5 % Normal 11.5-15.0 [facility] [place] Comment on above: Performed By: #### L [id number] ####[facility] ([facility])[address] [place] [address] ERYTHROCYTE MEAN CORPUSCULAR HEMOGLOBIN CONCENTRATION (G/DL) BY AUTOMATED 33.5 g/dL Normal 32.0-35.0 [facility] [place] Comment on above: Performed By: #### L [id number] ####[facility] ([facility])[address] [place] [address] Hematocrit (Bld) [Volume fraction] 40.9 % Normal 39.0-55.0 [facility] [place] Comment on above: Performed By: #### L [id number] ####[facility] ([facility])[address] [place] [address] Hemoglobin (Bld) [Mass/Vol] 13.7 g/dL Normal 13.0-17.0 [facility] [place] Comment on above: Performed By: #### L [id number] ####[facility] ([facility])[address] [place] [address] Immature granulocytes (Bld) [#/Vol] 0.03 10*3/uL Normal 0.00-0.20 [facility] [place] Comment on above: Performed By: #### L [id number] ####[facility] ([facility])[address] [place] [address] Immature granulocytes/100 WBC (Bld) 0.4 % Normal 0.0-1.0 [facility] [place] Comment on above: Performed By: #### L [id number] ####[facility] ([facility])[address] [place] [address] Lymphocytes (Bld) [#/Vol] 1.53 10*3/uL Normal 1.20-4.00 [facility] [place] Comment on above: Performed By: #### L [id number] ####[facility] ([facility])[address] [place] [address] Lymphocytes/100 WBC (Bld) 19.9 % Low 20.0-45.0 [facility] [place] Comment on above: Performed By: #### L [id number] ####[facility] ([facility])[address] [place] [address] MCH (RBC) [Entitic mass] 30.0 pg Normal 27.0-33.0 [facility] [place] Comment on above: Performed By: #### L [id number] ####[facility] ([facility])[address] [place] [address] MCV (RBC) [Entitic vol] 89.7 fL Normal 82.0-98.0 [facility] Comment on above: Performed By: #### L [id number] ####[facility] ([facility])[address] [place] [address] Monocytes (Bld) [#/Vol] 0.63 10*3/uL Normal 0.10-1.00 [facility] [place] Comment on above: Performed By: #### L [id number] ####[facility] ([facility])[address] [place] [address] Monocytes/100 WBC (Bld) 8.2 % Normal 5.0-12.0 [facility] Comment on above: Performed By: #### L [id number] ####[facility] ([facility])[address] [place] [address] Neutrophils (Bld) [#/Vol] 5.35 10*3/uL Normal 1.60-7.60 [facility] [place] Comment on above: Performed By: #### L [id number] ####[facility] ([facility])[address] [address] Neutrophils/100 WBC (Bld) 69.5 % Normal 40.0-72.0 [facility] [place] Comment on above: Performed By: #### L [id number] ####[facility] ([facility])[address] [address] NRBC (PER 100 WBCS) BY AUTOMATED COUNT 0.0 % Normal 0 [facility] [place] Comment on above: Performed By: #### L [id number] ####[facility] ([facility])[address] [address] PLATELETS (10*3/UL) IN BLOOD AUTOMATED COUNT 274 10*3/uL Normal 150-400 [facility] [place] Comment on above: Performed By: #### L [id number] ####[facility] ([facility])[address] [place] [address] RBC (Bld) [#/Vol] 4.56 10*6/uL Normal 4.20-5.70 [facility] Comment on above: Performed By: #### L [id number] ####[facility] ([facility])[address] [address] WBC (Bld) [#/Vol] 7.70 10*3/uL Normal 4.00-10.60 [facility] Comment on above: Performed By: #### L [id number] ####[facility] ([facility])[address] [place] [address] COMPREHENSIVE METABOLIC PANE Sonido 03-16-2024 Albumin [Mass/Vol] 4.0 g/dL Normal 3.5-5.7 [facility] Comment on above: Performed By: #### L [id number] ####[facility] ([facility])[address] [place] [address] ALP [Catalytic activity/Vol] 107 U/L High 34-104 [facility] [place] Comment on above: Performed By: #### L [id number] ####[facility] ([facility])[address] [place] [address] ALT [Catalytic activity/Vol] 13 U/L Normal 7-52 [facility] [place] Comment on above: Performed By: #### L [id number] ####[facility] ([facility])[address] [place] [address] Anion gap [Moles/Vol] 13 mmol/L Normal 7-20 [facility] Comment on above: Performed By: #### L [id number] ####[facility] ([facility])[address] [place] [address] AST [Catalytic activity/Vol] 15 U/L Normal 13-39 [facility] [place] Comment on above: Performed By: #### L [id number] ####[facility] ([facility])[address] [place] [address] Bilirubin [Mass/Vol] 0.7 mg/dL Normal 0.3-1.0 [facility] Comment on above: Performed By: #### L [id number] ####[facility] ([facility])[address] [place] [address] Calcium [Mass/Vol] 9.9 mg/dL Normal 8.6-10.3 [facility] Comment on above: Performed By: #### L [id number] ####[facility] ([facility])[address] [place] [address] Chloride [Moles/Vol] 103 mmol/L Normal 98-107 [facility] Comment on above: Performed By: #### L [id number] ####[facility] ([facility])[address] [place] [address] CO2 [Moles/Vol] 22 mmol/L Normal 21-31 [facility] Comment on above: Performed By: #### L [id number] ####[facility] ([facility])[address] [place] [address] Creatinine [Mass/Vol] 1.84 mg/dL High 0.70-1.30 [facility] Comment on above: Performed By: #### L [id number] ####[facility] ([facility])[address] [place] [address] GLOMERULAR FILTRATION RATE ML/MIN/1.73 SQ M.PREDICTED 39.9 mL/min/1.73m*2 Low >60.0 [facility] [place] Comment on above: Result Comment: The [facility] [place]???s estimated glomerular filtration rate (eGFR) will no [...] of individuals. Performed By: #### L [id number] ####[facility] ([facility])[address] [place] [address] Glucose [Mass/Vol] 294 mg/dL High 70-100 [facility] Comment on above: Performed By: #### L [id number] ####[facility] ([facility])[address] [place] [address] Potassium [Moles/Vol] 4.7 mmol/L Normal 3.5-5.1 [facility] Comment on above: Performed By: #### L [id number] ####[facility] ([facility])[address] [place] [address] Protein [Mass/Vol] 7.5 g/dL Normal 6.0-8.3 [facility] Comment on above: Performed By: #### L [id number] ####[facility] ([facility])[address] [place] [address] Sodium [Moles/Vol] 133 mmol/L Low 136-145 [facility] Comment on above: Performed By: #### L [id number] ####[facility] ([facility])[address] [place] [address] Urea nitrogen [Mass/Vol] 23 mg/dL Normal 7-25 [facility] [place] Comment on above: Performed By: #### L [id number] ####[facility] ([facility])[address] [place] [address] UREA NITROGEN/CREATININE (MASS RATIO) IN SER/PLAS 12.5 Normal [facility] [place] Comment on above: Performed By: #### L [id number] ####[facility] ([facility])[address] [place] [address] HEMOGLOBIN A1Con 03-16-2024 Glucose [Mass/Vol] 209 mg/dL Normal [facility] Comment on above: Performed By: #### L [id number] ####[facility] ([facility])[address] [place] [address] HbA1c (Bld) [Mass fraction] 8.9 % High 4.0-6.0 [facility] [place] Comment on above: Performed By: #### L [id number] ####[facility] ([facility])[address] [place] [address] Labon 03-16-2024 Lab Normal [facility] Orders Onlyon 03-16-2024 Orders Only Normal [facility] T3, FREEon 03-16-2024 TRIIODOTHYRONINE (T3) FREE (PG/ML) IN SER/PLAS 3.2 pg/mL Normal 2.5-3.9 [facility] [place] Comment on above: Performed By: #### L [id number] ####[facility] ([facility])[address] [place] [address] T4, FREEon 03-16-2024 THYROXINE (T4) FREE (NG/DL) IN SER/PLAS 0.77 ng/dL Normal 0.71-1.85 [facility] [place] Comment on above: Performed By: #### L [id number] ####[facility] ([facility])[address] [place] [address] TSHon 03-16-2024 THYROTROPIN (MIU/L) IN SER/PLAS BY DETECTION LIMIT <= 0.05 MIU/L 0.81 mIU/L Normal 0.34-5.60 [facility] [place] Comment on above: Performed By: #### L [id number] ####[facility] ([facility])[address] [place] [address] Follow-Upon 03-07-2024 Follow-Up Normal [facility] [place] CBC WITH AUTO DIFFERENTIALon 02-25-2024 Basophils (Bld) [#/Vol] 0.06 10*3/uL Normal 0.00-0.20 [facility] [place] Comment on above: Performed By: #### L [id number] ####[facility] ([facility] [place] [address] Basophils/100 WBC (Bld) 0.8 % Normal 0.0-1.0 [facility] Comment on above: Performed By: #### L [id number] ####[facility] ([facility])[address] [place] [address] Eosinophils (Bld) [#/Vol] 0.20 10*3/uL Normal 0.00-0.50 [facility] [place] Comment on above: Performed By: #### L [id number] ####[facility] ([facility])[address] [place] [address] Eosinophils/100 WBC (Bld) 2.7 % Normal 0.0-6.0 [facility] [place] Comment on above: Performed By: #### L [id number] ####[facility] ([facility])[address] [place] [address] Erythrocyte distribution width (RBC) [Ratio] 15.2 % High 11.5-15.0 [facility] [place] Comment on above: Performed By: #### L [id number] ####[facility] ([facility])[address] [place] [address] ERYTHROCYTE MEAN CORPUSCULAR HEMOGLOBIN CONCENTRATION (G/DL) BY AUTOMATED 33.4 g/dL Normal 32.0-35.0 [facility] [place] Comment on above: Performed By: #### L [id number] ####[facility] ([facility])[address] [place] [address] Hematocrit (Bld) [Volume fraction] 38.6 % Low 39.0-55.0 [facility] [place] Comment on above: Performed By: #### L [id number] ####[facility] ([facility])[address] [place] [address] Hemoglobin (Bld) [Mass/Vol] 12.9 g/dL Low 13.0-17.0 [facility] [place] Comment on above: Performed By: #### L [id number] ####[facility] ([facility])[address] [place] [address] Immature granulocytes (Bld) [#/Vol] 0.01 10*3/uL Normal 0.00-0.20 [facility] [place] Comment on above: Performed By: #### L [id number] ####[facility] ([facility])[address] [place] [address] Immature granulocytes/100 WBC (Bld) 0.1 % Normal 0.0-1.0 [facility] [place] Comment on above: Performed By: #### L [id number] ####[facility] ([facility])[address] [place] [address] Lymphocytes (Bld) [#/Vol] 1.82 10*3/uL Normal 1.20-4.00 [facility] [place] Comment on above: Performed By: #### L [id number] ####[facility] ([facility])[address] [place] [address] Lymphocytes/100 WBC (Bld) 24.5 % Normal 20.0-45.0 [facility] [place] Comment on above: Performed By: #### L [id number] ####[facility] ([facility])[address] [place] [address] MCH (RBC) [Entitic mass] 30.3 pg Normal 27.0-33.0 [facility] [place] Comment on above: Performed By: #### L [id number] ####[facility] ([facility])[address] [place] [address] MCV (RBC) [Entitic vol] 90.6 fL Normal 82.0-98.0 [facility] Comment on above: Performed By: #### L [id number] ####[facility] ([facility])[address] [place] [address] Monocytes (Bld) [#/Vol] 0.56 10*3/uL Normal 0.10-1.00 [facility] [place] Comment on above: Performed By: #### L [id number] ####[facility] ([facility])[address] [place] [address] Monocytes/100 WBC (Bld) 7.5 % Normal 5.0-12.0 [facility] Comment on above: Performed By: #### L [id number] ####[facility] ([facility])[address] [place] [address] Neutrophils (Bld) [#/Vol] 4.77 10*3/uL Normal 1.60-7.60 [facility] [place] Comment on above: Performed By: #### L [id number] ####[facility] ([facility])[address] [place], [place] [address] Neutrophils/100 WBC (Bld) 64.4 % Normal 40.0-72.0 [facility] [place] Comment on above: Performed By: #### L [id number] ####[facility] ([facility])[address] [place] [address] NRBC (PER 100 WBCS) BY AUTOMATED COUNT 0.0 % Normal 0 [facility] [place] Comment on above: Performed By: #### L [id number] ####[facility] ([facility])[address] [place] [address] PLATELETS (10*3/UL) IN BLOOD AUTOMATED COUNT 251 10*3/uL Normal 150-400 [facility] [place] Comment on above: Performed By: #### L [id number] ####[facility] ([facility])[address] [place] [address] RBC (Bld) [#/Vol] 4.26 10*6/uL Normal 4.20-5.70 [facility] Comment on above: Performed By: #### L [id number] ####[facility] ([facility])[address] [place] [address] WBC (Bld) [#/Vol] 7.42 10*3/uL Normal 4.00-10.60 [facility] Comment on above: Performed By: #### L [id number] ####[facility] ([facility])[address] [place] [address] COMPREHENSIVE METABOLIC PANE [facility] 02-25-2024 Albumin [Mass/Vol] 3.9 g/dL Normal 3.5-5.7 [facility] Comment on above: Performed By: #### L [id number] ####[facility] ([facility])[address] [place] [address] ALP [Catalytic activity/Vol] 103 U/L Normal 34-104 [facility] [place] Comment on above: Performed By: #### L [id number] ####[facility] ([facility] [place] [address] ALT [Catalytic activity/Vol] 14 U/L Normal 7-52 [facility] [place] Comment on above: Performed By: #### L [id number] ####[facility] ([facility])[address] [place] [address] Anion gap [Moles/Vol] 13 mmol/L Normal 7-20 [facility] Comment on above: Performed By: #### L [id number] ####[facility] ([facility])[address] [place] [address] AST [Catalytic activity/Vol] 14 U/L Normal 13-39 [facility] [place] Comment on above: Performed By: #### L [id number] ####[facility] ([facility])[address] [place] [address] Bilirubin [Mass/Vol] 0.6 mg/dL Normal 0.3-1.0 [facility] Comment on above: Performed By: #### L [id number] ####[facility] ([facility])[address] [place] [address] Calcium [Mass/Vol] 9.5 mg/dL Normal 8.6-10.3 [facility] Comment on above: Performed By: #### L [id number] ####[facility] ([facility]ER)[address] [place] [address] Chloride [Moles/Vol] 103 mmol/L Normal 98-107 [facility] Comment on above: Performed By: #### L [id number] ####[facility] ([facility])[address] [place] [address] CO2 [Moles/Vol] 24 mmol/L Normal 21-31 [facility] Comment on above: Performed By: #### L [id number] ####[facility] ([facility]ER)[address] [place] [address] Creatinine [Mass/Vol] 2.05 mg/dL High 0.70-1.30 [facility] Comment on above: Performed By: #### L [id number] ####[facility] ([facility])[address] [place] [address] GLOMERULAR FILTRATION RATE ML/MIN/1.73 SQ M.PREDICTED 35.1 mL/min/1.73m*2 Low >60.0 [facility] [place] Comment on above: Result Comment: The [facility] [place]???s estimated glomerular filtration rate (eGFR) will no [...] of individuals. Performed By: #### L [id number] ####[facility] ([facility]ER)[address] [place] [address] Glucose [Mass/Vol] 238 mg/dL High 70-100 [facility] Comment on above: Performed By: #### L [id number] ####[facility] ([facility])[address] [place] [address] Potassium [Moles/Vol] 4.7 mmol/L Normal 3.5-5.1 [facility] Comment on above: Performed By: #### L [id number] ####[facility] ([facility])[address] [place] [address] Protein [Mass/Vol] 7.3 g/dL Normal 6.0-8.3 [facility] Comment on above: Performed By: #### L [id number] ####[facility] ([facility])[address] [place] [address] Sodium [Moles/Vol] 135 mmol/L Low 136-145 [facility] Comment on above: Performed By: #### L [id number] ####[facility] ([facility])[address] [facility] [place] [address] Urea nitrogen [Mass/Vol] 19 mg/dL Normal 7-25 [facility] [place] Comment on above: Performed By: #### L [id number] ####[facility] ([facility])[address] [facility] [place] [address] UREA NITROGEN/CREATININE (MASS RATIO) IN SER/PLAS 9.3 Normal [facility] [place] Comment on above: Performed By: #### L [id number] ####[facility] ([facility])[address] [place] [address] CT CHEST WO IV CONTRASTon CT CHEST WO IV CONTRAST Invalid Interpretation Code [facility] [place] Labon 02-25-2024 Lab Normal [facility] [place] Orders Onlyon 02-25-2024 Orders Only Normal [facility] [place] T3, FREEon 02-25-2024 TRIIODOTHYRONINE (T3) FREE (PG/ML) IN SER/PLAS 3.3 pg/mL Normal 2.5-3.9 [facility] [place] Comment on above: Performed By: #### L [id number] ####[facility] ([facility])[address] [place] [address] T4, FREEon 02-25-2024 THYROXINE (T4) FREE (NG/DL) IN SER/PLAS 0.76 ng/dL Normal 0.71-1.85 [facility] [place] Comment on above: Performed By: #### L [id number] ####[facility] ([facility])[address] [place] [address] TSHon 02-25-2024 THYROTROPIN (MIU/L) IN SER/PLAS BY DETECTION LIMIT <= 0.05 MIU/L 0.84 mIU/L Normal 0.34-5.60 [facility] [place] Comment on above: Performed By: #### L [id number] ####[facility] ([facility])[address] [place] [address] Orders Onlyon 02-21-2024 Orders Only Normal [facility] [place] CBC WITH AUTO DIFFERENTIALon 02-03-2024 Basophils (Bld) [#/Vol] 0.06 10*3/uL Normal 0.00-0.20 [facility] [place] Comment on above: Performed By: #### L [id number] ####[facility] ([facility])[address] [place] [address] Basophils/100 WBC (Bld) 0.7 % Normal 0.0-1.0 [facility] Comment on above: Performed By: #### L [id number] ####[facility] ([facility])[address] [place] [address] Eosinophils (Bld) [#/Vol] 0.29 10*3/uL Normal 0.00-0.50 [facility] [place] Comment on above: Performed By: #### L [id number] ####[facility] ([facility])[address] [place] [address] Eosinophils/100 WBC (Bld) 3.3 % Normal 0.0-6.0 [facility] [place] Comment on above: Performed By: #### L [id number] ####[facility] ([facility])[address] [place] [address] Erythrocyte distribution width (RBC) [Ratio] 15.5 % High 11.5-15.0 [facility] [place] Comment on above: Performed By: #### L [id number] ####[facility] ([facility])[address] [place] [address] ERYTHROCYTE MEAN CORPUSCULAR HEMOGLOBIN CONCENTRATION (G/DL) BY AUTOMATED 33.0 g/dL Normal 32.0-35.0 [facility] [place] Comment on above: Performed By: #### L [id number] ####[facility] ([facility])[address] [place] [address] Hematocrit (Bld) [Volume fraction] 41.5 % Normal 39.0-55.0 [facility] [place] Comment on above: Performed By: #### L [id number] ####[facility] ([facility])[address] [place] [address] Hemoglobin (Bld) [Mass/Vol] 13.7 g/dL Normal 13.0-17.0 [facility] [place] Comment on above: Performed By: #### L [id number] ####[facility] ([facility]AKER)[address] [place] [address] Immature granulocytes (Bld) [#/Vol] 0.03 10*3/uL Normal 0.00-0.20 [facility] [place] Comment on above: Performed By: #### L [id number] ####[facility] ([facility])[address] [place] [address] Immature granulocytes/100 WBC (Bld) 0.3 % Normal 0.0-1.0 [facility] [place] Comment on above: Performed By: #### L [id number] ####[facility] ([facility])[address] [place] [address] Lymphocytes (Bld) [#/Vol] 2.49 10*3/uL Normal 1.20-4.00 [facility] [place] Comment on above: Performed By: #### L [id number] ####[facility] ([facility])[address] [place] [address] Lymphocytes/100 WBC (Bld) 28.4 % Normal 20.0-45.0 [facility] [place] Comment on above: Performed By: #### L [id number] ####[facility] ([facility])[address] [place] [address] MCH (RBC) [Entitic mass] 29.5 pg Normal 27.0-33.0 [facility] [place] Comment on above: Performed By: #### L [id number] ####[facility] ([facility])[address] [place] [address] MCV (RBC) [Entitic vol] 89.4 fL Normal 82.0-98.0 [facility] Comment on above: Performed By: #### L [id number] ####[facility] ([facility])[address] [place] [address] Monocytes (Bld) [#/Vol] 0.72 10*3/uL Normal 0.10-1.00 [facility] [place] Comment on above: Performed By: #### L [id number] ####[facility] ([facility])[address] [place] [address] Monocytes/100 WBC (Bld) 8.2 % Normal 5.0-12.0 [facility] Comment on above: Performed By: #### L [id number] ####[facility] ([facility])[address] [place] [address] Neutrophils (Bld) [#/Vol] 5.18 10*3/uL Normal 1.60-7.60 [facility] [place] Comment on above: Performed By: #### L [id number] ####[facility] ([facility])[address] [place] [address] Neutrophils/100 WBC (Bld) 59.1 % Normal 40.0-72.0 [facility] [place] Comment on above: Performed By: #### L [id number] ####[facility] ([facility]ER)[address] [place] [address] NRBC (PER 100 WBCS) BY AUTOMATED COUNT 0.0 % Normal 0 [facility] [place] Comment on above: Performed By: #### L [id number] ####[facility] ([facility])[address] [place] [address] PLATELETS (10*3/UL) IN BLOOD AUTOMATED COUNT 293 10*3/uL Normal 150-400 [facility] [place] Comment on above: Performed By: #### L [id number] ####[facility] ([facility])[address] [place] [address] RBC (Bld) [#/Vol] 4.64 10*6/uL Normal 4.20-5.70 [facility] Comment on above: Performed By: #### L [id number] ####[facility] ([facility])[address] [place] [address] WBC (Bld) [#/Vol] 8.77 10*3/uL Normal 4.00-10.60 [facility] Comment on above: Performed By: #### L [id number] ####[facility] ([facility])[address] [place] [address] COMPREHENSIVE METABOLIC PANE [facility] 02-03-2024 Albumin [Mass/Vol] 3.9 g/dL Normal 3.5-5.7 [facility] Comment on above: Performed By: #### L [id number] ####[facility] ([facility])[address] [place] [address] ALP [Catalytic activity/Vol] 114 U/L High 34-104 [facility] [place] Comment on above: Performed By: #### L [id number] ####[facility] ([facility])[address] [place] [address] ALT [Catalytic activity/Vol] 16 U/L Normal 7-52 [facility] [place] Comment on above: Performed By: #### L [id number] ####[facility] ([facility])[address] [place] [address] Anion gap [Moles/Vol] 14 mmol/L Normal 7-20 [facility] Comment on above: Performed By: #### L [id number] ####[facility] (BEAKER)[address] [place] [address] AST [Catalytic activity/Vol] 16 U/L Normal 13-39 [facility] [place] Comment on above: Performed By: #### L [id number] ####[facility] ([facility]ER)[address] [place] [address] Bilirubin [Mass/Vol] 0.6 mg/dL Normal 0.3-1.0 [facility] Comment on above: Performed By: #### L [id number] ####[facility] ([facility]ER)[address] [place] [address] Calcium [Mass/Vol] 10.2 mg/dL Normal 8.6-10.3 [facility] Comment on above: Performed By: #### L [id number] ####[facility] ([facility]ER)[address] [place] [address] Chloride [Moles/Vol] 101 mmol/L Normal 98-107 [facility] Comment on above: Performed By: #### L [id number] ####[facility] ([facility]ER)[address] [place] [address] CO2 [Moles/Vol] 24 mmol/L Normal 21-31 [facility] Comment on above: Performed By: #### L [id number] ####[facility] ([facility]ER)[address] [place] [address] Creatinine [Mass/Vol] 1.71 mg/dL High 0.70-1.30 [facility] Comment on above: Performed By: #### L [id number] ####[facility] ([facility])[address] [place] [address] GLOMERULAR FILTRATION RATE ML/MIN/1.73 SQ M.PREDICTED 43.6 mL/min/1.73m*2 Low >60.0 [facility] [place] Comment on above: Result Comment: The [facility] [place]???s estimated glomerular filtration rate (eGFR) will no [...] of individuals. Performed By: #### L [id number] ####[facility] ([facility])[address] [place] [address] Glucose [Mass/Vol] 202 mg/dL High 70-100 [facility] Comment on above: Performed By: #### L [id number] ####[facility] ([facility])[address] [place] [address] Potassium [Moles/Vol] 4.6 mmol/L Normal 3.5-5.1 [facility] Comment on above: Performed By: #### L [id number] ####[facility] ([facility])[address] [place] [address] Protein [Mass/Vol] 7.3 g/dL Normal 6.0-8.3 [facility] Comment on above: Performed By: #### L [id number] ####[facility] ([facility])[address] [place] [address] Sodium [Moles/Vol] 134 mmol/L Low 136-145 [facility] Comment on above: Performed By: #### L [id number] ####[facility] ([facility])[address] [place] [address] Urea nitrogen [Mass/Vol] 29 mg/dL High 7-25 [facility] [place] Comment on above: Performed By: #### L [id number] ####[facility] ([facility])[address] [place] [address] UREA NITROGEN/CREATININE (MASS RATIO) IN SER/PLAS 17.0 Normal [facility] [place] Comment on above: Performed By: #### L [id number] ####[facility] ([facility])[address] [place] [address] Labon 02-03-2024 Lab Normal [facility] [place] Orders Onlyon 02-03-2024 Orders Only Normal [facility] [place] T3, FREEon 02-03-2024 TRIIODOTHYRONINE (T3) FREE (PG/ML) IN SER/PLAS 3.3 pg/mL Normal 2.5-3.9 [facility] [place] Comment on above: Performed By: #### L [id number] ####[facility] ([facility] [place] [address] T4, FREEon 02-03-2024 THYROXINE (T4) FREE (NG/DL) IN SER/PLAS 0.70 ng/dL Low 0.71-1.85 [facility] [place] Comment on above: Performed By: #### L [id number] ####[facility] ([facility])[address] [place] [address] TSHon 02-03-2024 THYROTROPIN (MIU/L) IN SER/PLAS BY DETECTION LIMIT <= 0.05 MIU/L 1.01 mIU/L Normal 0.34-5.60 [facility] [place] Comment on above: Performed By: #### L [id number] ####[facility] ([facility])[address] [place] [address] Orders Onlyon 01-19-2024 Orders Only Normal [facility] [place] CBC WITH AUTO DIFFERENTIALon 01-13-2024 Basophils (Bld) [#/Vol] 0.04 10*3/uL Normal 0.00-0.20 [facility] [place] Comment on above: Performed By: #### L [id number] ####[facility] ([facility]AKER)[address] [place] [address] Basophils/100 WBC (Bld) 0.7 % Normal 0.0-1.0 [facility] Comment on above: Performed By: #### L [id number] ####[facility] ([facility]ER)[address] [place] [address] Eosinophils (Bld) [#/Vol] 0.16 10*3/uL Normal 0.00-0.50 [facility] [place] Comment on above: Performed By: #### L [id number] ####[facility] ([facility])[address] [place] [address] Eosinophils/100 WBC (Bld) 2.7 % Normal 0.0-6.0 [facility] [place] Comment on above: Performed By: #### L [id number] ####[facility] ([facility])[address] [place] [address] Erythrocyte distribution width (RBC) [Ratio] 16.0 % High 11.5-15.0 [facility] [place] Comment on above: Performed By: #### L [id number] ####[facility] ([facility] [place] [address] ERYTHROCYTE MEAN CORPUSCULAR HEMOGLOBIN CONCENTRATION (G/DL) BY AUTOMATED 33.8 g/dL Normal 32.0-35.0 [facility] [place] Comment on above: Performed By: #### L [id number] ####[facility] ([facility] [place] [address] Hematocrit (Bld) [Volume fraction] 39.9 % Normal 39.0-55.0 [facility] [place] Comment on above: Performed By: #### L [id number] ####[facility] ([facility])[address] [place] [address] Hemoglobin (Bld) [Mass/Vol] 13.5 g/dL Normal 13.0-17.0 [facility] [place] Comment on above: Performed By: #### L [id number] ####[facility] ([facility])[address] [place] [address] Immature granulocytes (Bld) [#/Vol] 0.02 10*3/uL Normal 0.00-0.20 [facility] [place] Comment on above: Performed By: #### L [id number] ####[facility] ([facility])[address] [place] [address] Immature granulocytes/100 WBC (Bld) 0.3 % Normal 0.0-1.0 [facility] [place] Comment on above: Performed By: #### L [id number] ####[facility] ([facility])[address] [place] [address] Lymphocytes (Bld) [#/Vol] 1.49 10*3/uL Normal 1.20-4.00 [facility] [place] Comment on above: Performed By: #### L [id number] ####[facility] ([facility])[address] [place] [address] Lymphocytes/100 WBC (Bld) 24.7 % Normal 20.0-45.0 [facility] [place] Comment on above: Performed By: #### L [id number] ####[facility] ([facility])[address] [place] [address] MCH (RBC) [Entitic mass] 29.8 pg Normal 27.0-33.0 [facility] [place] Comment on above: Performed By: #### L [id number] ####[facility] (BEAKER)[address] [place] [address] MCV (RBC) [Entitic vol] 88.1 fL Normal 82.0-98.0 [facility] Comment on above: Performed By: #### L [id number] ####[facility] (BEAKER)[address] [place] [address] Monocytes (Bld) [#/Vol] 0.53 10*3/uL Normal 0.10-1.00 [facility] [place] Comment on above: Performed By: #### L [id number] ####[facility] (BEAKER)[address] [place] [address] Monocytes/100 WBC (Bld) 8.8 % Normal 5.0-12.0 [facility] Comment on above: Performed By: #### L [id number] ####[facility] (BEAKER)[address] [place] [address] Neutrophils (Bld) [#/Vol] 3.79 10*3/uL Normal 1.60-7.60 [facility] [place] Comment on above: Performed By: #### L [id number] ####[facility] (BEAKER)[address] [place] [address] Neutrophils/100 WBC (Bld) 62.8 % Normal 40.0-72.0 [facility] [place] Comment on above: Performed By: #### L [id number] ####[facility] ([facility])[address] [place] [address] NRBC (PER 100 WBCS) BY AUTOMATED COUNT 0.0 % Normal 0 [facility] [place] Comment on above: Performed By: #### L [id number] ####[facility] ([facility])[address] [place] [address] PLATELETS (10*3/UL) IN BLOOD AUTOMATED COUNT 254 10*3/uL Normal 150-400 [facility] [place] Comment on above: Performed By: #### L [id number] ####[facility] ([facility])[address] [place] [address] RBC (Bld) [#/Vol] 4.53 10*6/uL Normal 4.20-5.70 [facility] Comment on above: Performed By: #### L [id number] ####[facility] ([facility])[address] [place], [place] [address] WBC (Bld) [#/Vol] 6.03 10*3/uL Normal 4.00-10.60 [facility] Comment on above: Performed By: #### L [id number] ####[facility] ([facility])[address] [place] [address] COMPREHENSIVE METABOLIC PANE Sonido 01-13-2024 Albumin [Mass/Vol] 3.9 g/dL Normal 3.5-5.7 [facility] Comment on above: Performed By: #### L [id number] ####[facility] ([facility])[address] [place] [address] ALP [Catalytic activity/Vol] 126 U/L High 34-104 [facility] [place] Comment on above: Performed By: #### L [id number] ####[facility] ([facility])[address] [place] [address] ALT [Catalytic activity/Vol] 19 U/L Normal 7-52 [facility] [place] Comment on above: Performed By: #### L [id number] ####[facility] ([facility] [place] [address] Anion gap [Moles/Vol] 14 mmol/L Normal 7-20 [facility] Comment on above: Performed By: #### L [id number] ####[facility] ([facility])[address] [place] [address] AST [Catalytic activity/Vol] 15 U/L Normal 13-39 [facility] [place] Comment on above: Performed By: #### L [id number] ####[facility] ([facility])[address] [place] [address] Bilirubin [Mass/Vol] 0.6 mg/dL Normal 0.3-1.0 [facility] Comment on above: Performed By: #### L [id number] ####[facility] ([facility])[address] [place] [address] Calcium [Mass/Vol] 9.9 mg/dL Normal 8.6-10.3 [facility] Comment on above: Performed By: #### L [id number] ####[facility] ([facility])[address] [place] [address] Chloride [Moles/Vol] 105 mmol/L Normal 98-107 [facility] Comment on above: Performed By: #### L [id number] ####[facility] ([facility])[address] [place] [address] CO2 [Moles/Vol] 22 mmol/L Normal 21-31 [facility] Comment on above: Performed By: #### L [id number] ####[facility] ([facility])[address] [place] [address] Creatinine [Mass/Vol] 1.78 mg/dL High 0.70-1.30 [facility] Comment on above: Performed By: #### L [id number] ####[facility] ([facility])[address] [place] [address] GLOMERULAR FILTRATION RATE ML/MIN/1.73 SQ M.PREDICTED 41.6 mL/min/1.73m*2 Low >60.0 [facility] [place] Comment on above: Result Comment: The [facility] [place]???s estimated glomerular filtration rate (eGFR) will no [...] of individuals. Performed By: #### L [id number] ####[facility] (BEAKER)[address] [place] [address] Glucose [Mass/Vol] 213 mg/dL High 70-100 [facility] Comment on above: Performed By: #### L [id number] ####[facility] (BEAKER)[address] [place] [address] Potassium [Moles/Vol] 4.8 mmol/L Normal 3.5-5.1 [facility] Comment on above: Performed By: #### L [id number] ####[facility] (BEAKER)[address] [place] [address] Protein [Mass/Vol] 7.5 g/dL Normal 6.0-8.3 [facility] Comment on above: Performed By: #### L [id number] ####[facility] (BEAKER)[address] [place] [address] Sodium [Moles/Vol] 136 mmol/L Normal 136-145 [facility] Comment on above: Performed By: #### L [id number] ####[facility] (BEAKER)[address] [place] [address] Urea nitrogen [Mass/Vol] 29 mg/dL High 7-25 [facility] [place] Comment on above: Performed By: #### L [id number] ####[facility] ([facility])[address] [place] [address] UREA NITROGEN/CREATININE (MASS RATIO) IN SER/PLAS 16.3 Normal [facility] [place] Comment on above: Performed By: #### L [id number] ####[facility] ([facility])[address] [place] [address] Labon 01-13-2024 Lab Normal [facility] [place] T3, FREEon 01-13-2024 TRIIODOTHYRONINE (T3) FREE (PG/ML) IN SER/PLAS 2.8 pg/mL Normal 2.5-3.9 [facility] [place] Comment on above: Performed By: #### L [id number] ####[facility] ([facility])[address] [place] [address] T4, FREEon 01-13-2024 THYROXINE (T4) FREE (NG/DL) IN SER/PLAS 0.79 ng/dL Normal 0.71-1.85 [facility] [place] Comment on above: Performed By: #### L [id number] ####[facility] ([facility])[address] [place] [address] TSHon 01-13-2024 THYROTROPIN (MIU/L) IN SER/PLAS BY DETECTION LIMIT <= 0.05 MIU/L 0.77 mIU/L Normal 0.34-5.60 [facility] [place] Comment on above: Performed By: #### L [id number] ####[facility] ([facility])[place] [address] 29on 12-23-2023 29 Addended by: JEWELL MERINO on: 12/27/2023 02:17 PM Modules accepted: Orders Normal [facility] [place] CBC WITH AUTO DIFFERENTIALon 12-23-2023 Basophils (Bld) [#/Vol] 0.05 10*3/uL Normal 0.00-0.20 [facility] [place] Comment on above: Performed By: #### L [id number] ####[facility] ([facility])[address] [place] [address] Basophils/100 WBC (Bld) 0.7 % Normal 0.0-1.0 [facility] Comment on above: Performed By: #### L [id number] ####[facility] (BEAKER)[address] [place] [address] Eosinophils (Bld) [#/Vol] 0.20 10*3/uL Normal 0.00-0.50 [facility] [place] Comment on above: Performed By: #### L [id number] ####[facility] (BEAKER)[address] [place] [address] Eosinophils/100 WBC (Bld) 2.8 % Normal 0.0-6.0 [facility] [place] Comment on above: Performed By: #### L [id number] ####[facility] (BEAKER)[address] [place] [address] Erythrocyte distribution width (RBC) [Ratio] 15.0 % Normal 11.5-15.0 [facility] [place] Comment on above: Performed By: #### L [id number] ####[facility] (BEAKER)[address] [place] [address] ERYTHROCYTE MEAN CORPUSCULAR HEMOGLOBIN CONCENTRATION (G/DL) BY AUTOMATED 33.3 g/dL Normal 32.0-35.0 [facility] [place] Comment on above: Performed By: #### L [id number] ####[facility] (BEAKER)[address] [place] [address] Hematocrit (Bld) [Volume fraction] 42.4 % Normal 39.0-55.0 [facility] [place] Comment on above: Performed By: #### L [id number] ####[facility] (BEAKER)[address] [place] [address] Hemoglobin (Bld) [Mass/Vol] 14.1 g/dL Normal 13.0-17.0 [facility] [place] Comment on above: Performed By: #### L [id number] ####[facility] (BEAKER)[address] [place] [address] Immature granulocytes (Bld) [#/Vol] 0.03 10*3/uL Normal 0.00-0.20 [facility] [place] Comment on above: Performed By: #### L [id number] ####[facility] ([facility])[address] [place] [address] Immature granulocytes/100 WBC (Bld) 0.4 % Normal 0.0-1.0 [facility] [place] Comment on above: Performed By: #### L [id number] ####[facility] ([facility])[address] [place] [address] Lymphocytes (Bld) [#/Vol] 2.25 10*3/uL Normal 1.20-4.00 [facility] [place] Comment on above: Performed By: #### L [id number] ####[facility] ([facility])[address] [place] [address] Lymphocytes/100 WBC (Bld) 31.6 % Normal 20.0-45.0 [facility] [place] Comment on above: Performed By: #### L [id number] ####[facility] ([facility])[address] [place] [address] MCH (RBC) [Entitic mass] 28.8 pg Normal 27.0-33.0 [facility] [place] Comment on above: Performed By: #### L [id number] ####[facility] ([facility])[address] [place] [address] MCV (RBC) [Entitic vol] 86.5 fL Normal 82.0-98.0 [facility] Comment on above: Performed By: #### L [id number] ####[facility] ([facility])[address] [place] [address] Monocytes (Bld) [#/Vol] 0.59 10*3/uL Normal 0.10-1.00 [facility] [place] Comment on above: Performed By: #### L [id number] ####[facility] ([facility])[address] [place] [address] Monocytes/100 WBC (Bld) 8.3 % Normal 5.0-12.0 [facility] Comment on above: Performed By: #### L [id number] ####[facility] ([facility])[address] [place] [address] Neutrophils (Bld) [#/Vol] 4.00 10*3/uL Normal 1.60-7.60 [facility] [place] Comment on above: Performed By: #### L [id number] ####[facility] ([facility])[address] [place] [address] Neutrophils/100 WBC (Bld) 56.2 % Normal 40.0-72.0 [facility] [place] Comment on above: Performed By: #### L [id number] ####[facility] ([facility])[address] [place] [address] NRBC (PER 100 WBCS) BY AUTOMATED COUNT 0.0 % Normal 0 [facility] [place] Comment on above: Performed By: #### L [id number] ####[facility] ([facility])[address] [place] [address] PLATELETS (10*3/UL) IN BLOOD AUTOMATED COUNT 263 10*3/uL Normal 150-400 [facility] [place] Comment on above: Performed By: #### L [id number] ####[facility] ([facility])[address] [place] [address] RBC (Bld) [#/Vol] 4.90 10*6/uL Normal 4.20-5.70 [facility] Comment on above: Performed By: #### L [id number] ####[facility] ([facility])[address] [address] WBC (Bld) [#/Vol] 7.12 10*3/uL Normal 4.00-10.60 [facility] Comment on above: Performed By: #### L [id number] ####[facility] ([facility])[address] [place] [address] COMPREHENSIVE METABOLIC PANE Sonido 12-23-2023 Albumin [Mass/Vol] 4.1 g/dL Normal 3.5-5.7 [facility] Comment on above: Performed By: #### L [id number] ####[facility] (BEAKER)[address] [place] [address] ALP [Catalytic activity/Vol] 136 U/L High 34-104 [facility] [place] Comment on above: Performed By: #### L [id number] ####[facility] (BEAKER)[address] [place] [address] ALT [Catalytic activity/Vol] 14 U/L Normal 7-52 [facility] [place] Comment on above: Performed By: #### L [id number] ####[facility] ([facility])[address] [place] [address] Anion gap [Moles/Vol] 11 mmol/L Normal 7-20 [facility] Comment on above: Performed By: #### L [id number] ####[facility] (BEAKER)[address] [place] [address] AST [Catalytic activity/Vol] 14 U/L Normal 13-39 [facility] [place] Comment on above: Performed By: #### L [id number] ####[facility] (BEAKER)[address] [place] [address] Bilirubin [Mass/Vol] 0.6 mg/dL Normal 0.3-1.0 [facility] Comment on above: Performed By: #### L [id number] ####[facility] (BEAKER)[address] [place] [address] Calcium [Mass/Vol] 10.5 mg/dL High 8.6-10.3 [facility] Comment on above: Performed By: #### L [id number] ####[facility] (BEAKER)[address] [place] [address] Chloride [Moles/Vol] 103 mmol/L Normal 98-107 [facility] Comment on above: Performed By: #### L [id number] ####[facility] (BEAKER)[address] [place] [address] CO2 [Moles/Vol] 26 mmol/L Normal 21-31 [facility] Comment on above: Performed By: #### L [id number] ####[facility] ([facility])[address] [place] [address] Creatinine [Mass/Vol] 1.72 mg/dL High 0.70-1.30 [facility] Comment on above: Performed By: #### L [id number] ####[facility] ([facility])[address] [place] [address] GLOMERULAR FILTRATION RATE ML/MIN/1.73 SQ M.PREDICTED 43.3 mL/min/1.73m*2 Low >60.0 [facility] [place] Comment on above: Result Comment: The [facility] [place]???s estimated glomerular filtration rate (eGFR) will no [...] of individuals. Performed By: #### L [id number] ####[facility] ([facility])[address] [place] [address] Glucose [Mass/Vol] 190 mg/dL High 70-100 [facility] Comment on above: Performed By: #### L [id number] ####[facility] ([facility])[address] [place] [address] Potassium [Moles/Vol] 4.7 mmol/L Normal 3.5-5.1 [facility] Comment on above: Performed By: #### L [id number] ####[facility] ([facility])[address] [place] [address] Protein [Mass/Vol] 7.8 g/dL Normal 6.0-8.3 [facility] Comment on above: Performed By: #### L [id number] ####[facility] ([facility])[address] [place] [address] Sodium [Moles/Vol] 135 mmol/L Low 136-145 [facility] Comment on above: Performed By: #### L [id number] ####[facility] ([facility])[address] [place] [address] Urea nitrogen [Mass/Vol] 30 mg/dL High 7-25 [facility] [place] Comment on above: Performed By: #### L [id number] ####[facility] ([facility])[address] [place] [address] UREA NITROGEN/CREATININE (MASS RATIO) IN SER/PLAS 17.4 Normal [facility] [place] Comment on above: Performed By: #### L [id number] ####[facility] ([facility])[address] [place] [address] CORTISOLon 12-23-2023 CORTISOL (UG/DL) IN SER/PLAS 10.0 ug/dL Normal 6-23 [facility] [place] Comment on above: Order Comment: Obtai n level in the morning prior to starting immunotherapy Performed By: #### L [id number] ####[facility] ([facility])[address] [place] [address] Follow-Upon 12-23-2023 Follow-Up Normal [facility] [place] IMMUNOFIXATION ELECTROPHORES Mohan 12-23-2023 IMMUNOFIXATION ELECTROPHORESIS 1 See attached report. Normal [facility] Comment on above: Result Comment: This is an appended report. These results have been appended to a previously final verified report. Performed By: #### L [id number] ####[facility] ([facility])[address] [place] [address] Magnesium [Mass/Vol] 1540 mg/dL Normal 591-1540 [facility] Comment on above: Performed By: #### L [id number] ####[facility] ([facility])[address] [place] [address] Magnesium [Mass/Vol] 372 mg/dL Normal 60-413 [facility] Comment on above: Performed By: #### L [id number] ####[facility] (BEAKER)[address] [place] [address] Magnesium [Mass/Vol] 87.1 mg/dL Normal 54-285 [facility] Comment on above: Performed By: #### L [id number] ####[facility] (LISETHAKER)[address] [place] [address] KAPPA / LAMBDA LIGHT CHAINS, FREEon 12-23-2023 IMMUNOGLOBULIN LIGHT CHAINS KAPPA/LAMBDA (MASS RATIO) IN SERUM 1.34 Normal 0.22-1.74 [facility] [place] Comment on above: Result Comment: Test Performed by [employer] [address] [place] [id number] - Released 12/27/2023 19:00 Performed By: #### L [id number] ####[facility] [employer] [id number] [place] [address] IMMUNOGLOBULIN LIGHT CHAINS.KAPPA (MG/DL) IN SERUM 104.0 mg/L High <20.8 [facility] [place] Comment on above: Result Comment: Perf ormed using [employer] reagent on [employer]. Results obtained with different assay methods cannot be used interchangeably. Performed By: #### L [id number] ####[facility] [employer] [id number] [place] [address] IMMUNOGLOBULIN LIGHT CHAINS.LAMBDA (MG/DL) IN SERUM 77.7 mg/L High 4.2-27.7 [facility] [place] Comment on above: Result Comment: Perf ormed using [employer] reagent on [employer]. Results obtained with different assay methods cannot be used interchangeably. Performed By: #### L [id number] ####[facility] [employer] [id number] [place] [address] Labon 12-23-2023 Lab Normal [facility] Orders Onlyon 12-23-2023 Orders Only Normal [facility] PROTEIN ELECTROPHORESIS, SER UMon 12-23-2023 Protein [Mass/Vol] 7.3 g/dL Normal 6.0-8.3 [facility] Comment on above: Order Comment: Elect ronically signed by Beatriz Dubon MD on 01/03/24 at 5:47 PM. Performed By: #### L [id number] ####[facility] ([facility])[address] [place] [address] PROTEIN FRACTION (INTERPRETATION) IN SER/PLAS BY ELECTROPHORESIS See attached report [facility] Comment on above: Order Comment: Elect ronically signed by Beatriz Dubon MD on 01/03/24 at 5:47 PM. Performed By: #### L [id number] ####[facility] ([facility])[address] [place] [address] T3, FREEon 12-23-2023 TRIIODOTHYRONINE (T3) FREE (PG/ML) IN SER/PLAS 3.2 pg/mL Normal 2.5-3.9 [facility] [place] Comment on above: Performed By: #### L [id number] ####[facility] ([facility])[address] [place] [address] T4, FREEon 12-23-2023 THYROXINE (T4) FREE (NG/DL) IN SER/PLAS 1.00 ng/dL Normal 0.71-1.85 [facility] [place] Comment on above: Performed By: #### L [id number] ####[facility] CENTER)[address] [place] [address] TSHon 12-23-2023 THYROTROPIN (MIU/L) IN SER/PLAS BY DETECTION LIMIT <= 0.05 MIU/L 0.68 mIU/L Normal 0.34-5.60 [facility] [place] Comment on above: Performed By: #### L [id number] ####[facility] ([facility])[address] [place] [address] Orders Onlyon 12-22-2023 Orders Only [facility] [id number] 12-16-2023 [id number] [facility] ANESon 12-16-2023 ANES Normal [facility] [place] ANES [facility] HPon 12-16-2023 HP [facility] NURSNOTEon 12-16-2023 NURSNOTE Discharge instructio ns discussed with pt and pt's . Stated understanding. Pt does not need prescriptions filled. Normal [facility] [place] OPNOTEon 12-16-2023 OPNOTE Normal [facility] [place] POCT GLUCOSE METER UNSOLICIT ED RESULTSon 12-16-2023 Glucose [Mass/Vol] 183 mg/dL High 70-105 [facility] Comment on above: Order Comment: Waive d Testing in the ED is performed under the ED CLIA certificate #[id number]. Result Comment: dspe ars Performed By: #### L [id number] ####[facility] ([facility] [place] [address] Glucose [Mass/Vol] 186 mg/dL High 70-105 [facility] Comment on above: Order Comment: Waive d Testing in the ED is performed under the ED CLIA certificate #[id number]. Result Comment: msch juan j Performed By: #### L [id number] ####[facility] ([facility])[address] [place] [address] CBCon 12-13-2023 Erythrocyte distribution width (RBC) [Ratio] 14.8 % Normal 11.5-15.0 [facility] [place] Comment on above: Performed By: #### L [id number] ####[facility] ([facility])[address] [place] [address] ERYTHROCYTE MEAN CORPUSCULAR HEMOGLOBIN CONCENTRATION (G/DL) BY AUTOMATED 34.0 g/dL Normal 32.0-35.0 [facility] [place] Comment on above: Performed By: #### L [id number] ####[facility] ([facility])[address] [place] [address] Hematocrit (Bld) [Volume fraction] 40.6 % Normal 39.0-55.0 [facility] [place] Comment on above: Performed By: #### L [id number] ####[facility] ([facility])[address] [place] [address] Hemoglobin (Bld) [Mass/Vol] 13.8 g/dL Normal 13.0-17.0 [facility] [place] Comment on above: Performed By: #### L [id number] ####[facility] ([facility])[address] [place] [address] MCH (RBC) [Entitic mass] 29.4 pg Normal 27.0-33.0 [facility] [place] Comment on above: Performed By: #### L [id number] ####[facility] ([facility])[address] [place] [address] MCV (RBC) [Entitic vol] 86.6 fL Normal 82.0-98.0 [facility] Comment on above: Performed By: #### L [id number] ####[facility] ([facility])[address] [place] [address] PLATELETS (10*3/UL) IN BLOOD AUTOMATED COUNT 231 10*3/uL Normal 150-400 [facility] [place] Comment on above: Performed By: #### L [id number] ####[facility] ([facility])[address] [place] [address] RBC (Bld) [#/Vol] 4.69 10*6/uL Normal 4.20-5.70 [facility] Comment on above: Performed By: #### L [id number] ####[facility] ([facility])[address] [place] [address] WBC (Bld) [#/Vol] 7.06 10*3/uL Normal 4.00-10.60 [facility] Comment on above: Performed By: #### L [id number] ####[facility] ([facility])[address] [place] [address] COMPREHENSIVE METABOLIC PANE Sonido 12-13-2023 Albumin [Mass/Vol] 4.0 g/dL Normal 3.5-5.7 [facility] Comment on above: Performed By: #### L [id number] ####[facility] ([facility])[address] [place] [address] ALP [Catalytic activity/Vol] 117 U/L High 34-104 [facility] [place] Comment on above: Performed By: #### L [id number] ####[facility] ([facility])[address] [place] [address] ALT [Catalytic activity/Vol] 19 U/L Normal 7-52 [facility] [place] Comment on above: Performed By: #### L [id number] ####[facility] ([facility])[address] [place] [address] Anion gap [Moles/Vol] 11 mmol/L Normal 7-20 [facility] Comment on above: Performed By: #### L [id number] ####[facility] ([facility])[address] [place] [address] AST [Catalytic activity/Vol] 18 U/L Normal 13-39 [facility] [place] Comment on above: Performed By: #### L [id number] ####[facility] ([facility])[address] [place] [address] Bilirubin [Mass/Vol] 0.5 mg/dL Normal 0.3-1.0 [facility] Comment on above: Performed By: #### L [id number] ####[facility] ([facility])[address] [place] [address] Calcium [Mass/Vol] 9.9 mg/dL Normal 8.6-10.3 [facility] Comment on above: Performed By: #### L [id number] ####[facility] ([facility])[address] [place] [address] Chloride [Moles/Vol] 102 mmol/L Normal 98-107 [facility] Comment on above: Performed By: #### L [id number] ####[facility] ([facility])[address] [place] [address] CO2 [Moles/Vol] 25 mmol/L Normal 21-31 [facility] Comment on above: Performed By: #### L [id number] ####[facility] ([facility])[address] [place] [address] Creatinine [Mass/Vol] 2.03 mg/dL High 0.70-1.30 [facility] Comment on above: Performed By: #### L [id number] ####[facility] ([facility])[address] [place] [address] GLOMERULAR FILTRATION RATE ML/MIN/1.73 SQ M.PREDICTED 35.5 mL/min/1.73m*2 Low >60.0 [facility] [place] Comment on above: Result Comment: The [facility] [place]???s estimated glomerular filtration rate (eGFR) will no [...] of individuals. Performed By: #### L [id number] ####[facility] ([facility])[address] [place] [address] Glucose [Mass/Vol] 264 mg/dL High 70-100 [facility] Comment on above: Performed By: #### L [id number] ####[facility] ([facility])[address] [place] [address] Potassium [Moles/Vol] 4.4 mmol/L Normal 3.5-5.1 [facility] Comment on above: Performed By: #### L [id number] ####[facility] ([facility])[address] [place] [address] Protein [Mass/Vol] 7.4 g/dL Normal 6.0-8.3 [facility] Comment on above: Performed By: #### L [id number] ####[facility] ([facility])[address] [place] [address] Sodium [Moles/Vol] 134 mmol/L Low 136-145 [facility] Comment on above: Performed By: #### L [id number] ####[facility] ([facility])[address] [place] [address] Urea nitrogen [Mass/Vol] 32 mg/dL High 7-25 [facility] [place] Comment on above: Performed By: #### L [id number] ####[facility] ([facility])[address] [place] [address] UREA NITROGEN/CREATININE (MASS RATIO) IN SER/PLAS 15.8 Normal [facility] [place] Comment on above: Performed By: #### L [id number] ####[facility] ([facility])[address] [place] [address] Labon 12-13-2023 Lab Normal [facility] [place] Orders Onlyon 12-10-2023 Orders Only Normal [facility] [place] [id number] 12-09-2023 [id number] Normal [facility] [place] APTTon 12-09-2023 ACTIVATED PARTIAL THROMBOPLASTIN TIME IN PPP BY COAGULATION ASSAY 35.5 Seconds High 25.0-35.0 [facility] [place] Comment on above: Result Comment: Clin ical significance of the APTT is questionable in the presence of heparin. Performed By: #### L [id number] ####[facility] ([facility])[address] [place] [address] Infusionon 12-09-2023 Infusion Normal [facility] [place] Labon 12-09-2023 Lab Normal [facility] [place] MRSA/MSSA DNA NASALon 2023 MRSA DNA Negative Normal Negative [facility] [place] Comment on above: Order Comment: Testi ng [...] preclude nasal colonization. Performed By: #### L [id number] ####[facility] ([facility])[address] [place] [address] MSSA DNA Positive Abnormal Negative [facility] [place] Comment on above: Order Comment: Testi ng [...] preclude nasal colonization. Performed By: #### L [id number] ####[facility] ([facility])[address] [place] [address] Orders Onlyon 12-09-2023 Orders Only Normal [facility] [place] PROTIME-INRon 12-09-2023 INR IN PPP BY COAGULATION ASSAY 1.16 High 0.90-1.10 [facility] [place] Comment on above: Result Comment: ACCC P [...] CHEST 1995;[id number]. Performed By: #### L [id number] ####[facility] ([facility])[address] [place] [address] PROTHROMBIN TIME (PT) IN PPP BY COAGULATION ASSAY 14.8 Seconds Normal 12.3-14.8 [facility] [place] Comment on above: Performed By: #### L [id number] ####[facility] ([facility])[address] [place] [address] CBC WITH AUTO DIFFERENTIALon 12-08-2023 Basophils (Bld) [#/Vol] 0.04 10*3/uL Normal 0.00-0.20 [facility] [place] Comment on above: Performed By: #### L [id number] ####[facility] ([facility])[address] [place] [address] Basophils/100 WBC (Bld) 0.6 % Normal 0.0-1.0 [facility] Comment on above: Performed By: #### L [id number] ####[facility] ([facility])[address] [place] [address] Eosinophils (Bld) [#/Vol] 0.42 10*3/uL Normal 0.00-0.50 [facility] [place] Comment on above: Performed By: #### L [id number] ####[facility] ([facility])[address] [place] [address] Eosinophils/100 WBC (Bld) 6.0 % Normal 0.0-6.0 [facility] [place] Comment on above: Performed By: #### L [id number] ####[facility] ([facility])[address] [place] [address] Erythrocyte distribution width (RBC) [Ratio] 14.7 % Normal 11.5-15.0 [facility] [place] Comment on above: Performed By: #### L [id number] ####[facility] ([facility])[address] [place] [address] ERYTHROCYTE MEAN CORPUSCULAR HEMOGLOBIN CONCENTRATION (G/DL) BY AUTOMATED 33.5 g/dL Normal 32.0-35.0 [facility] [place] Comment on above: Performed By: #### L [id number] ####[facility] ([facility])[address] [place] [address] Hematocrit (Bld) [Volume fraction] 41.2 % Normal 39.0-55.0 [facility] [place] Comment on above: Performed By: #### L [id number] ####[facility] ([facility])[address] [place] [address] Hemoglobin (Bld) [Mass/Vol] 13.8 g/dL Normal 13.0-17.0 [facility] [place] Comment on above: Performed By: #### L [id number] ####[facility] ([facility])[address] [place] [address] Immature granulocytes (Bld) [#/Vol] 0.02 10*3/uL Normal 0.00-0.20 [facility] [place] Comment on above: Performed By: #### L [id number] ####[facility] ([facility])[address] [place] [address] Immature granulocytes/100 WBC (Bld) 0.3 % Normal 0.0-1.0 [facility] [place] Comment on above: Performed By: #### L [id number] ####[facility] ([facility])[address] [place] [address] Lymphocytes (Bld) [#/Vol] 2.22 10*3/uL Normal 1.20-4.00 [facility] [place] Comment on above: Performed By: #### L [id number] ####[facility] ([facility])[address] [place] [address] Lymphocytes/100 WBC (Bld) 31.9 % Normal 20.0-45.0 [facility] [place] Comment on above: Performed By: #### L [id number] ####[facility] ([facility])[address] [place] [address] MCH (RBC) [Entitic mass] 28.8 pg Normal 27.0-33.0 [facility] [place] Comment on above: Performed By: #### L [id number] ####[facility] ([facility])[address] [place] [address] MCV (RBC) [Entitic vol] 86.0 fL Normal 82.0-98.0 [facility] Comment on above: Performed By: #### L [id number] ####[facility] ([facility])[address] [place] [address] Monocytes (Bld) [#/Vol] 0.60 10*3/uL Normal 0.10-1.00 [facility] [place] Comment on above: Performed By: #### L [id number] ####[facility] ([facility])[address] [place] [address] Monocytes/100 WBC (Bld) 8.6 % Normal 5.0-12.0 [facility] Comment on above: Performed By: #### L [id number] ####[facility] ([facility])[address] [place] [address] Neutrophils (Bld) [#/Vol] 3.65 10*3/uL Normal 1.60-7.60 [facility] [place] Comment on above: Performed By: #### L [id number] ####[facility] ([facility])[address] [place] [address] Neutrophils/100 WBC (Bld) 52.6 % Normal 40.0-72.0 [facility] [place] Comment on above: Performed By: #### L [id number] ####[facility] ([facility])[address] [place] [address] NRBC (PER 100 WBCS) BY AUTOMATED COUNT 0.0 % Normal 0 [facility] [place] Comment on above: Performed By: #### L [id number] ####[facility] ([facility])[address] [place] [address] PLATELETS (10*3/UL) IN BLOOD AUTOMATED COUNT 233 10*3/uL Normal 150-400 [facility] [place] Comment on above: Performed By: #### L [id number] ####[facility] ([facility])[address] [place] [address] RBC (Bld) [#/Vol] 4.79 10*6/uL Normal 4.20-5.70 [facility] Comment on above: Performed By: #### L [id number] ####[facility] ([facility])[address] [place] [address] WBC (Bld) [#/Vol] 6.95 10*3/uL Normal 4.00-10.60 [facility] Comment on above: Performed By: #### L [id number] ####[facility] ([facility])[address] [place] [address] COMPREHENSIVE METABOLIC PANE Sonido 12-08-2023 Albumin [Mass/Vol] 4.0 g/dL Normal 3.5-5.7 [facility] Comment on above: Performed By: #### L [id number] ####[facility] ([facility])[address] [place] [address] ALP [Catalytic activity/Vol] 94 U/L Normal 34-104 [facility] [place] Comment on above: Performed By: #### L [id number] ####[facility] ([facility])[address] [place] [address] ALT [Catalytic activity/Vol] 13 U/L Normal 7-52 [facility] [place] Comment on above: Performed By: #### L [id number] ####[facility] ([facility])[address] [place] [address] Anion gap [Moles/Vol] 12 mmol/L Normal 7-20 [facility] Comment on above: Performed By: #### L [id number] ####[facility] ([facility])[address] [place] [address] AST [Catalytic activity/Vol] 14 U/L Normal 13-39 [facility] [place] Comment on above: Performed By: #### L [id number] ####[facility] ([facility])[address] [place] [address] Bilirubin [Mass/Vol] 0.5 mg/dL Normal 0.3-1.0 [facility] Comment on above: Performed By: #### L [id number] ####[facility] ([facility])[address] [place] [address] Calcium [Mass/Vol] 10.1 mg/dL Normal 8.6-10.3 [facility] Comment on above: Performed By: #### L [id number] ####[facility] ([facility])[address] [place] [address] Chloride [Moles/Vol] 102 mmol/L Normal 98-107 [facility] Comment on above: Performed By: #### L [id number] ####[facility] ([facility])[address] [place] [address] CO2 [Moles/Vol] 24 mmol/L Normal 21-31 [facility] Comment on above: Performed By: #### L [id number] ####[facility] ([facility])[address] [place] [address] Creatinine [Mass/Vol] 1.86 mg/dL High 0.70-1.30 [facility] Comment on above: Performed By: #### L [id number] ####[facility] ([facility])[address] [place] [address] GLOMERULAR FILTRATION RATE ML/MIN/1.73 SQ M.PREDICTED 39.4 mL/min/1.73m*2 Low >60.0 [facility] [place] Comment on above: Result Comment: The [facility] [place]???s estimated glomerular filtration rate (eGFR) will no [...] of individuals. Performed By: #### L [id number] ####[facility] ([facility])[address] [facility] [place] [address] Glucose [Mass/Vol] 195 mg/dL High 70-100 [facility] Comment on above: Performed By: #### L [id number] ####[facility] ([facility])[address] [place] [address] Potassium [Moles/Vol] 5.1 mmol/L Normal 3.5-5.1 [facility] Comment on above: Performed By: #### L [id number] ####[facility] ([facility])[address] [place] [address] Protein [Mass/Vol] 7.4 g/dL Normal 6.0-8.3 [facility] Comment on above: Performed By: #### L [id number] ####[facility] ([facility])[address] [place] [address] Sodium [Moles/Vol] 133 mmol/L Low 136-145 [facility] Comment on above: Performed By: #### L [id number] ####[facility] ([facility])[address] [place] [address] Urea nitrogen [Mass/Vol] 28 mg/dL High 7-25 [facility] Comment on above: Performed By: #### L [id number] ####[facility] ([facility])[address] [place] [address] UREA NITROGEN/CREATININE (MASS RATIO) IN SER/PLAS 15.1 Normal [facility] Comment on above: Performed By: #### L [id number] ####[facility] ([facility])[address] [place] [address] Follow-Upon 12-08-2023 Follow-Up Normal [facility] Labon 12-08-2023 Lab Normal [facility] T3, FREEon 12-08-2023 TRIIODOTHYRONINE (T3) FREE (PG/ML) IN SER/PLAS 2.8 pg/mL Normal 2.5-3.9 [facility] Comment on above: Performed By: #### L [id number] ####[facility] ([facility])[address] [place] [address] T4, FREEon 12-08-2023 THYROXINE (T4) FREE (NG/DL) IN SER/PLAS 0.85 ng/dL Normal 0.71-1.85 [facility] Comment on above: Performed By: #### L [id number] ####[facility] ([facility])[address] [place] [address] TSHon 12-08-2023 THYROTROPIN (MIU/L) IN SER/PLAS BY DETECTION LIMIT <= 0.05 MIU/L 1.09 mIU/L Normal 0.34-5.60 [facility] Comment on above: Performed By: #### L [id number] ####[facility] ([facility])[address] [place] [address] Orders Onlyon 12-06-2023 Orders Only Normal [facility] Orders Onlyon 12-02-2023 Orders Only [facility] 37on 11-23-2023 37 Recommend pembrolizu mab (Keytruda) infusion every 3 weeks to begin with and can be switched to every 6 weeks if needed Keytruda can be given through peripheral IV or chemo port. Decision will be made by patient for either/ Return to clinic in 4 weeks [facility] 36on 11-11-2023 36 Pt informed [facility] 30on 11-10-2023 30 [facility] BASIC METABOLIC PANELon 10-19 Anion gap [Moles/Vol] 11 mmol/L Normal 7-20 [facility] Comment on above: Performed By: #### L [id number] ####[facility] (BEAKER)[address] [place] [address] Calcium [Mass/Vol] 9.6 mg/dL Normal 8.6-10.3 [facility] Comment on above: Performed By: #### L [id number] ####[facility] (BEAKER)[address] [place] [address] Chloride [Moles/Vol] 104 mmol/L Normal 98-107 [facility] Comment on above: Performed By: #### L [id number] ####[facility] (BEAKER)[address] [place] [address] CO2 [Moles/Vol] 22 mmol/L Normal 21-31 [facility] Comment on above: Performed By: #### L [id number] ####[facility] (BEAKER)[address] [place] [address] Creatinine [Mass/Vol] 1.28 mg/dL Normal 0.70-1.30 [facility] Comment on above: Performed By: #### L [id number] ####[facility] ([facility])[address] [place] [address] GLOMERULAR FILTRATION RATE ML/MIN/1.73 SQ M.PREDICTED 61.7 mL/min/1.73m*2 Normal >60.0 [facility] Comment on above: Result Comment: The [facility]???s estimated glomerular filtration rate (eGFR) will no [...] of individuals. Performed By: #### L [id number] ####[facility] ([facility])[address] [place] [address] Glucose [Mass/Vol] 182 mg/dL High 70-100 [facility] Comment on above: Performed By: #### L [id number] ####[facility] ([facility])[address] [place] [address] Potassium [Moles/Vol] 4.7 mmol/L Normal 3.5-5.1 [facility] Comment on above: Result Comment: M-CH EMISTRY SPECIMEN MODERATELY HEMOLYZED RESULTS MAY NOT BE ACCURATE Performed By: #### L [id number] ####[facility] ([facility])[address] [place] [address] Sodium [Moles/Vol] 132 mmol/L Low 136-145 [facility] Comment on above: Performed By: #### L [id number] ####[facility] ([facility])[address] [place] [address] Urea nitrogen [Mass/Vol] 16 mg/dL Normal 7-25 [facility] Comment on above: Performed By: #### L [id number] ####[facility] ([facility] [place] [address] UREA NITROGEN/CREATININE (MASS RATIO) IN SER/PLAS 12.5 Normal [facility] Comment on above: Performed By: #### L [id number] ####[facility] ([facility])[address] [address] CBCon 11-10-2023 Erythrocyte distribution width (RBC) [Ratio] 14.2 % Normal 11.5-15.0 [facility] Comment on above: Performed By: #### L [id number] ####[facility] ([facility])[address] [address] ERYTHROCYTE MEAN CORPUSCULAR HEMOGLOBIN CONCENTRATION (G/DL) BY AUTOMATED 33.4 g/dL Normal 32.0-35.0 [facility] Comment on above: Performed By: #### L [id number] ####[facility] ([facility])[address] [place] [address] Hematocrit (Bld) [Volume fraction] 43.7 % Normal 39.0-55.0 [facility] Comment on above: Performed By: #### L [id number] ####[facility] ([facility])[address] [place] [address] Hemoglobin (Bld) [Mass/Vol] 14.6 g/dL Normal 13.0-17.0 [facility] Comment on above: Performed By: #### L [id number] ####[facility] ([facility])[address] [place] [address] MCH (RBC) [Entitic mass] 29.0 pg Normal 27.0-33.0 [facility] Comment on above: Performed By: #### L [id number] ####[facility] ([facility] [place] [address] MCV (RBC) [Entitic vol] 86.9 fL Normal 82.0-98.0 [facility] Comment on above: Performed By: #### L [id number] ####[facility] ([facility] [place] [address] PLATELETS (10*3/UL) IN BLOOD AUTOMATED COUNT 248 10*3/uL Normal 150-400 [facility] Comment on above: Performed By: #### L [id number] ####[facility] ([facility])[address] [place] [address] RBC (Bld) [#/Vol] 5.03 10*6/uL Normal 4.20-5.70 [facility] Comment on above: Performed By: #### L [id number] ####[facility] ([facility])[address] [place] [address] WBC (Bld) [#/Vol] 10.05 10*3/uL Normal 4.00-10.60 [facility] Comment on above: Performed By: #### L [id number] ####[facility] ([facility])[address] [place] [address] DSon 11-10-2023 DS Normal [facility] MAGNESIUMon 11-10-2023 Magnesium [Mass/Vol] 1.6 mg/dL Low 1.9-2.7 [facility] Comment on above: Performed By: #### L [id number] ####[facility] ([facility])[address] [place] [address] NURSNOTEon 11-10-2023 NURSNOTE Discharge paperwork reviewed with patient. All questions answered. Patient and verbalized understanding. Normal [facility] PHOSPHORUSon 11-10-2023 Magnesium [Mass/Vol] 3.6 mg/dL Normal 2.5-5.0 [facility] Comment on above: Performed By: #### L [id number] ####[facility] ([facility])[address] [place] [address] POCT GLUCOSE METER UNSOLICIT ED RESULTSon 11-10-2023 Glucose [Mass/Vol] 135 mg/dL High 70-105 [facility] Comment on above: Order Comment: Waive d Testing in the ED is performed under the ED CLIA certificate #[id number]. Result Comment: pgom ez Performed By: #### L [id number] ####[facility] (BEAKER)[address] [place] [address] Glucose [Mass/Vol] 220 mg/dL High 70-105 [facility] Comment on above: Order Comment: Waive d Testing in the ED is performed under the ED CLIA certificate #[id number]. Result Comment: pgom ez Performed By: #### L [id number] ####[facility] (BEAKER)[address] [place] [address] Glucose [Mass/Vol] 233 mg/dL High 70-105 [facility] Comment on above: Order Comment: Waive d Testing in the ED is performed under the ED CLIA certificate #[id number]. Result Comment: pgom ez Performed By: #### L [id number] ####[facility] (AKER)[address] [place] [address] [id number] 11-09-2023 [id number] Normal [facility] ANESon 11-09-2023 ANES Normal [facility] ANES Normal [facility] ARTERIAL BLOOD GAS WITH CO-O XIMETRYon 11-09-2023 Base excess Calc (Bld) [Moles/Vol] -3.7000 mmol/L Low -2.0-3.0 [facility] Comment on above: Performed By: #### L [id number] ####[facility] [id number] [place] [address] [facility] CARBOXYHEMOGLOBIN/HEMOG LOBIN TOTAL % IN BLOOD 5.0 % High 0.0-3.0 [facility] Comment on above: Performed By: #### L [id number] ####[facility] [id number] [place] [address] [place] CO2 (Bld) [Partial pressure] 45 mm[Hg] Normal 35-48 [facility] Comment on above: Performed By: #### L [id number] ####[facility] [id number] [place] [address] [place] DEOXYGENATED HEMOGLOBIN IN BLOOD 0.0 % Low 1-5 [facility] Comment on above: Performed By: #### L [id number] ####[facility] [id number] [place] [address] [facility] HCO3 (Bld) [Moles/Vol] 22.7 mmol/L Normal 21.0-28.0 [facility] Comment on above: Performed By: #### L [id number] ####[facility] [id number] [place], [place] [address] Hemoglobin (Bld) [Mass/Vol] 13.1 g/dL Normal 11.7-17.4 [facility] Comment on above: Performed By: #### L [id number] ####[facility] [id number] [place] [address] [facility] METHEMOGLOBIN/100 IN BLOOD 0.7 % Normal 0.0-1.5 [facility] Comment on above: Performed By: #### L [id number] ####[facility] [id number] [place], [place] [address] Oxygen (Bld) [Partial pressure] 195 mm[Hg] High 83-100 [facility] Comment on above: Performed By: #### L [id number] ####[facility] [id number] [place] [address] [facility] OXYGEN SATURATION (%) IN ARTERIAL BLOOD 100.0 % High 94.0-98.0 [facility] Comment on above: Performed By: #### L [id number] ####[facility] [id number] [place] [address] [facility] OXYGENATED HEMOGLOBIN IN BLOOD 94.3 % Normal 90.0-95.0 [facility] Comment on above: Performed By: #### L [id number] ####[facility] [id number] [place] [address] [facility] pH (Bld) 7.31 [pH] Low 7.35-7.45 [facility] Comment on above: Performed By: #### L [id number] ####[facility] [id number] [place] [address] [facility] SOURCE OF OXYGEN Vent Normal [facility] Comment on above: Performed By: #### L [id number] ####[facility] [id number] [place] [address] [facility] BASIC METABOLIC PANELon - Anion gap [Moles/Vol] 12 mmol/L Normal 7-20 [facility] Comment on above: Performed By: #### L [id number] ####[facility] ([facility])[address] [place] [address] Calcium [Mass/Vol] 9.2 mg/dL Normal 8.6-10.3 [facility] Comment on above: Performed By: #### L [id number] ####[facility] ([facility])[address] [place] [address] Chloride [Moles/Vol] 104 mmol/L Normal 98-107 [facility] Comment on above: Performed By: #### L [id number] ####[facility] (BEAKER)[address] [place] [address] CO2 [Moles/Vol] 23 mmol/L Normal 21-31 [facility] Comment on above: Performed By: #### L [id number] ####[facility] (BEAKER)[address] [place] [address] Creatinine [Mass/Vol] 1.07 mg/dL Normal 0.70-1.30 [facility] Comment on above: Performed By: #### L [id number] ####[facility] ([facility])[address] [place] [address] GLOMERULAR FILTRATION RATE ML/MIN/1.73 SQ M.PREDICTED 76.5 mL/min/1.73m*2 Normal >60.0 [facility] Comment on above: Result Comment: The [facility] [place]???s estimated glomerular filtration rate (eGFR) will no [...] of individuals. Performed By: #### L [id number] ####[facility] ([facility])[address] [place] [address] Glucose [Mass/Vol] 271 mg/dL High 70-100 [facility] Comment on above: Performed By: #### L [id number] ####[facility] ([facility])[address] [facility]PerfectS[facility]LE[facility] [place] [address] Potassium [Moles/Vol] 3.9 mmol/L Normal 3.5-5.1 [facility] Comment on above: Performed By: #### L [id number] ####[facility] ([facility])[address] [place] [address] Sodium [Moles/Vol] 135 mmol/L Low 136-145 [facility] Comment on above: Performed By: #### L [id number] ####[facility] ([facility])[address] [facility]PhysicsLE[facility] [place] [address] Urea nitrogen [Mass/Vol] 19 mg/dL Normal 7-25 [facility] Comment on above: Performed By: #### L [id number] ####[facility] ([facility])[address] [place] [address] UREA NITROGEN/CREATININE (MASS RATIO) IN SER/PLAS 17.8 Normal [facility] Comment on above: Performed By: #### L [id number] ####[facility] ([facility])[address] CloudPhys[facility]LE[facility] [place] [address] CALCIUM, IONIZEDon CALCIUM IONIZED (MMOL/L) IN BLOOD 1.28 mmol/L Normal 1.15-1.33 [facility] Comment on above: Performed By: #### C ALCIUM, IONIZED ####[facility] [id number] [place] [address] [place] CBCon 11-09-2023 Erythrocyte distribution width (RBC) [Ratio] 14.1 % Normal 11.5-15.0 [facility] Comment on above: Performed By: #### L [id number] ####[facility] ([facility])[address] [place] [address] ERYTHROCYTE MEAN CORPUSCULAR HEMOGLOBIN CONCENTRATION (G/DL) BY AUTOMATED 33.2 g/dL Normal 32.0-35.0 [facility] Comment on above: Performed By: #### L [id number] ####[facility] ([facility])[address] [place] [address] Hematocrit (Bld) [Volume fraction] 41.6 % Normal 39.0-55.0 [facility] Comment on above: Performed By: #### L [id number] ####[facility] ([facility])[address] [place] [address] Hemoglobin (Bld) [Mass/Vol] 13.8 g/dL Normal 13.0-17.0 [facility] Comment on above: Performed By: #### L [id number] ####[facility] ([facility])[address] [place] [address] MCH (RBC) [Entitic mass] 29.2 pg Normal 27.0-33.0 [facility] Comment on above: Performed By: #### L [id number] ####[facility] ([facility])[address] [place] [address] MCV (RBC) [Entitic vol] 88.1 fL Normal 82.0-98.0 [facility] Comment on above: Performed By: #### L [id number] ####[facility] ([facility])[address] [place] [address] PLATELETS (10*3/UL) IN BLOOD AUTOMATED COUNT 252 10*3/uL Normal 150-400 [facility] Comment on above: Performed By: #### L [id number] ####[facility] ([facility])[address] [place] [address] RBC (Bld) [#/Vol] 4.72 10*6/uL Normal 4.20-5.70 [facility] Comment on above: Performed By: #### L [id number] ####[facility] ([facility])[address] [place] [address] WBC (Bld) [#/Vol] 8.72 10*3/uL Normal 4.00-10.60 [facility] Comment on above: Performed By: #### L [id number] ####[facility] ([facility])[address] [place] [address] HEMOGLOBIN A1Con 11-09-2023 Glucose [Mass/Vol] 203 mg/dL Normal [facility] Comment on above: Performed By: #### L [id number] ####[facility] ([facility])[address] [place] [address] HbA1c (Bld) [Mass fraction] 8.7 % High 4.0-6.0 [facility] Comment on above: Performed By: #### L [id number] ####[facility] ([facility])[address] [place] [address] HISTOLOGY - TISSUE EXAMon LAB AP CASE REPORT Normal [facility] Comment on above: Order Comment: Pre-o p diagnosis:Renal mass [N28.89] Result Comment: Surg ical Pathology Case: [id number] Provider: Walt Bettencourt MD Collected: 11/09/2023 1127Ordering Location: [facility] Main Operating Room Received: 11/09/2023 1138Pathologist: Darinel Florez MDIntraop: TIA Merazpecimen: Kidney, LEFT NEPHRECTOMY Performed By: #### L [id number] ####[facility] ([facility])[address] [place] [address] LAB AP CLINICAL INFORMATION Normal [facility] Comment on above: Order Comment: Pre-o p diagnosis:Renal mass [N28.89] Result Comment: Post -Op RnrkiqgyvN22.89 - Renal mass [ICD-10-CM] Performed By: #### L [id number] ####[facility] ([facility])[address] [place] [address] LAB AP GROSS DESCRIPTION A. Kidney. Normal [facility] Comment on above: Order Comment: Pre-o p [...] lesions are identified. Digital photographs are taken. Disability Insurance Hearing Officer sections are submitted as follows:A1: Renal vein margin, en faceA2: Renal artery margin and ureter margin, en faceA3-A5: Tumor with renal sinus fatA6-A7: Tumor involving renal veinA8-A9: Tumor to closest renal capsule with attached perirenal fat and closest Gerota's oxtbruS08: Tumor to uninvolved scrkogonjxF88: Uninvolved parenchyma, lower poleA12: Adrenal apfhnK03: 1 possible lymph node, intactElmary Sweet, Pathologists' Customs And Immigration Officer Mireya Calderon Pathologists' Customs And Immigration Officer Performed By: #### L [id number] ####[facility] (BEAKER)[address] [place] [address] LAB AP INTRAOPERATIVE CONSULTATION A. Kidney. Normal [facility] Comment on above: Order Comment: Pre-o p diagnosis:Renal mass [N28.89] Result Comment: Resu lted 11:39 AM 11/09/23Jasen, left, radical nephrectomy: - Renal vein margin (staple line) is grossly uninvolved by tumor thrombusIntraoperative Consultation by: Mindy Lilly MD Performed By: #### L [id number] ####[facility] (BEAKER)[address] [place] [address] LAB AP MICROSCOPIC DESCRIPTION Microscopic examination performed. [facility] Comment on above: Order Comment: Pre-o p diagnosis:Renal mass [N28.89] Performed By: #### L [id number] ####[facility] (BEAKER)[address] [place] [address] LAB AP REPORT FINAL DIAGNOSIS NARRATIVE [facility] Comment on above: Order Comment: Pre-o [...] tumor.See cancer protocol. Performed By: #### L [id number] ####[facility] (BEAKER)[address] [place] [address] LAB AP SYNOPTIC CHECKLIST [facility] Comment on above: Order Comment: Pre-o p diagnosis:Renal mass [N28.89] Result Comment: JARAD EY: NephrectomyKIDNEY: NEPHRECTOMY - All [id number] Edition - Protocol posted: 04/16/2021PECIMEN Procedure: Radical [...] and tubular atrophy Performed By: #### L [id number] ####[facility] (BEAKER)[address] [place] [address] HPon 11-09-2023 HP [facility] MAGNESIUMon 11-09-2023 Magnesium [Mass/Vol] 1.4 mg/dL Low 1.9-2.7 [facility] Comment on above: Performed By: #### L [id number] ####[facility] (BEAKER)[address] [place] [address] OPNOTEon 11-09-2023 OPNOTE Normal [facility] POCT GLUCOSE METER UNSOLICIT ED RESULTSon 11-09-2023 Glucose [Mass/Vol] 147 mg/dL High 70-105 [facility] Comment on above: Order Comment: Waive d Testing in the ED is performed under the ED CLIA certificate #[id number]. Result Comment: jros [email or web address] Performed By: #### L [id number] ####[facility] ([facility])[address] [place] [address] Glucose [Mass/Vol] 165 mg/dL High 70-105 [facility] Comment on above: Order Comment: Waive d Testing in the ED is performed under the ED CLIA certificate #[id number]. Result Comment: dkat al Performed By: #### L [id number] ####[facility] ([employer])[address] [place] [address] Glucose [Mass/Vol] 265 mg/dL High 70-105 [facility] Comment on above: Order Comment: Waive d Testing in the ED is performed under the ED CLIA certificate #[id number]. Result Comment: rtat e Performed By: #### L [id number] ####[facility] ([facility])[address] [address] Glucose [Mass/Vol] 195 mg/dL High 70-105 [facility] Comment on above: Order Comment: Waive d Testing in the ED is performed under the ED CLIA certificate #[id number]. Result Comment: ltol les Performed By: #### L [id number] ####[facility] (BEAKER)[address] [address] POTASSIUM, WHOLE BLOODon Potassium [Moles/Vol] 4.1 mmol/L Normal 3.5-5.1 [facility] Comment on above: Performed By: #### P OTASSIUM, WHOLE BLOOD ####[facility] [id number] [place] [address] [place] SODIUM, WHOLE BLOODon 2023 SODIUM, WHOLE BLOOD 134 Low 136-145 [facility] Comment on above: Performed By: #### S ODIUM, WHOLE BLOOD ####[facility] [id number] [place] [address] [place] TYPE AND SCREENon 11-09-2023 AB SCREEN Negative Normal [facility] Comment on above: Performed By: #### L [id number] ####[facility], ABO group Nom (Bld) A Normal [facility] Comment on above: Performed By: #### L [id number] ####[facility], RH TYPE IN BLOOD Positive Normal [facility] Comment on above: Performed By: #### L [id number] ####[facility], [id number] 11-03-2023 [id number] Normal [facility] [place] Orders Onlyon 11-02-2023 Orders Only Normal [facility] [place] MICROALBUMIN, RAND URon - mALB 26.0 mg/L Normal <=30.0 [facility] Comment on above: Performed By: #### P T, PTT #### [facility] [address] [address] [address] Mani Carpio CBC AUTO DIFFon 11-18-2022 BASO # 0.1 103/ul Normal 0.0-0.1 [facility] Comment on above: Performed By: #### P T, PTT #### [facility] [address] [address] [address] Mani Carpio Basophils/100 WBC (Bld) 0.4 % Normal 0.2-2.0 [facility] Comment on above: Performed By: #### P T, PTT #### [facility] [address] [address] [address] Mani Carpio EO # 0.1 103/ul Normal 0.0-0.7 [facility] Comment on above: Performed By: #### P T, PTT #### [facility] [address] [address] [address] Mani Carpio Eosinophils/100 WBC (Bld) 0.8 % Critically low 0.9-7.0 [facility] Comment on above: Performed By: #### P T, PTT #### [facility] [address] [place] [address] Dr. Mani Carpio Erythrocyte distribution width (RBC) [Ratio] 16.2 % Critically high 11.0-15.0 [facility] Comment on above: Performed By: #### P T, PTT #### [facility] [address] [place] [address] Dr. Mani Carpio Hematocrit (Bld) [Volume fraction] 41.3 % Critically low 42.0-54.0 [facility] Comment on above: Performed By: #### P T, PTT #### [facility] [address] [place] [address] Dr. Main Carpio Hemoglobin (Bld) [Mass/Vol] 13.0 g/dL Critically low 14.0-18.0 [facility] Comment on above: Performed By: #### P T, PTT #### [facility] [address] [place] [address] Dr. Mani Carpio IG # 0.05 10e3/ul Critically high 0.00-0.03 [facility] Comment on above: Performed By: #### P T, PTT #### [facility] [address] [place] [address] Dr. Mani Carpio IG % 0.4 % Normal 0.0-0.5 [facility] Comment on above: Performed By: #### P T, PTT #### [facility] [address] [place] [address] Dr. Mani Carpio LYMPH # 2.0 103/ul Normal 1.2-3.8 [facility] Comment on above: Performed By: #### P T, PTT #### [facility] [address] [place] [address] Dr. Mani Carpio Lymphocytes/100 WBC (Bld) 18.1 % Critically low 20.5-60.0 [facility] Comment on above: Performed By: #### P T, PTT #### [facility] [address] [place] [address] Dr. Mani Carpio MANUAL DIFF REQ NO Normal [facility] Comment on above: Performed By: #### P T, PTT #### [facility] [address] [place] [address] Dr. Mani Carpio MCH (RBC) [Entitic mass] 29.7 pg Normal 25.9-34.0 [facility] Comment on above: Performed By: #### P T, PTT #### [facility] [address] [place] [address] Dr. Mani Carpio MCHC (RBC) [Mass/Vol] 31.5 g/dL Normal 29.9-35.2 [facility] Comment on above: Performed By: #### P T, PTT #### [facility] [address] [place] [address] Dr. Mani Carpio MCV (RBC) [Entitic vol] 94.3 fL Critically high 80.0-94 .0 [facility] Comment on above: Performed By: #### P T, PTT #### [facility] [address] [place] [address] Dr. Mani Carpio MONO # 0.7 103/ul Normal 0.3-0.8 [facility] Comment on above: Performed By: #### P T, PTT #### [facility] [address] [place] [address] Dr. Mani Carpio Monocytes/100 WBC (Bld) 5.9 % Normal 1.7-12.0 [facility] Comment on above: Performed By: #### P T, PTT #### [facility] [address] [place] [address] Dr. Mani Carpio NEUT # 8.3 103/ul Critically high 1.4-6.5 [facility] Comment on above: Performed By: #### P T, PTT #### [facility] [address] [place] [address] Dr. Mani Carpio Neutrophils/100 WBC (Bld) 74.4 % Normal 43.0-75.0 [facility] Comment on above: Performed By: #### P T, PTT #### [facility] [address] [place] [address] Dr. Mani Carpio Platelet mean volume (Bld) [Entitic vol] 10.0 fL Normal 9.5-13.5 [facility] Comment on above: Performed By: #### P T, PTT #### [facility] [address] [place] [address] Dr. Mani Carpio PLT 281 103/ul Normal 150-450 [facility] Comment on above: Performed By: #### P T, PTT #### [facility] [address] [place] [address] Dr. Mani Carpio RBC 4.38 106/ul Critically low 4.70-6.10 [facility] Comment on above: Performed By: #### P T, PTT #### [facility] [address] [place] [address] Dr. Mani Carpio WBC 11.2 103/ul Critically high 4.0-11.0 [facility] Comment on above: Performed By: #### P T, PTT #### [facility] [address] [place] [address] Dr. Mani Carpio GLYCOHEMOGLOBIN A1Con 2022 ADA RECOMMENDATION SEE BELOW Normal [facility] Comment on above: Result Comment: ADA RECOMMENDED LIMIT 4.0 - 6.0 ADA THERAPEUTIC TARGET < 7.0 ACTION SUGGESTED > 7.0 Performed By: #### A 1C #### [facility] [address] [place] [address] Dr. Mani Carpio Glucose [Mass/Vol] 146 mg/dL Normal [facility] Comment on above: Performed By: #### A 1C #### [facility] [address] [place] [address] Dr. Mani Carpio HbA1c (Bld) [Mass fraction] 6.7 % Critically high 4.5-6.2 [facility] Comment on above: Performed By: #### A 1C #### [facility] [address] [place] [address] Dr. Mani Carpio LIPID PROFILEon 11-18-2022 CHOL-HDL RATIO NORM SEE BELOW Normal [facility] Comment on above: Result Comment: 3.3 - 4.4 LOW RISK 4.4 - 7.1 AVERAGE RISK 7.1 - 11.0 MODERATE RISK >11.0 HIGH RISK Performed By: #### P T, PTT #### [facility] [address] [address] [address] Mani Carpio Cholesterol [Mass/Vol] 109 mg/dL Normal <=200 [facility] Comment on above: Performed By: #### P T, PTT #### [facility] [address] [address] [address] Mani Carpio Cholesterol in HDL [Mass/Vol] 28 mg/dL Critically low 40-60 [facility] Comment on above: Performed By: #### P T, PTT #### [facility] [address] [address] [address] Mani Carpio Cholesterol in LDL [Mass/Vol] 41.2 mg/dL Normal [facility] Comment on above: Performed By: #### P T, PTT #### [facility] [address] [place] [address] Dr. Mani Carpio Cholesterol.total/Dania sterol in HDL [Mass ratio] 3.9 {ratio} Normal [facility] Comment on above: Performed By: #### P T, PTT #### [facility] [address] [place] [address] Dr. Mani Carpio HDL NORMAL > or = 60 mg/dl - LO W CARDIOVASCULAR RISK <40 mg/dl - HIGH CARDIOVASCULAR RISK Normal [facility] Comment on above: Performed By: #### P T, PTT #### [facility] [address] [address] [address] Mani Carpio LDL CALC NORMAL SEE BELOW Normal [facility] Comment on above: Result Comment: <100 mg/dl OPTIMAL 100 - 129 mg/dl NEAR OR ABOVE OPTIMAL 130 - 159 mg/dl BORDERLINE HIGH 160 - 189 mg/dl HIGH >190 mg/dl VERY HIGH Performed By: #### P T, PTT #### [facility] [address] [place] [address] Dr. Mani Carpio Triglyceride [Mass/Vol] 199 mg/dL Critically high <=150 [facility] Comment on above: Performed By: #### P T, PTT #### [facility] [address] [place] [address] Dr. Mani Carpio VLDL CALC 39.8 mg/dL Normal [facility] Comment on above: Performed By: #### P T, PTT #### [facility] [address] [place] [address] Dr. Mani Carpio LIVER PROFILEon 11-18-2022 Albumin [Mass/Vol] 3.6 g/dL Normal 3.4-5.0 [facility] Comment on above: Performed By: #### P T, PTT #### [facility] [address] [place] [address] Dr. Mani Carpio Albumin/Globulin [Mass ratio] 0.9 {ratio} Normal [facility] Comment on above: Performed By: #### P T, PTT #### [facility] [address] [place] [address] Dr. Mani Carpio ALP [Catalytic activity/Vol] 76 U/L Normal 46-116 [facility] Comment on above: Performed By: #### P T, PTT #### [facility] [address] [place] [address] Dr. Mani Carpio ALT [Catalytic activity/Vol] 26 U/L Normal 16-63 [facility] Comment on above: Performed By: #### P T, PTT #### [facility] [address] [place] [address] Dr. Mani Carpio AST [Catalytic activity/Vol] 17 U/L Normal 15-37 [facility] Comment on above: Performed By: #### P T, PTT #### [facility] [address] [place] [address] Dr. Mani Carpio BILI, CONJUGATED 0.2 mg/dL Normal 0.0-0.2 [facility] Comment on above: Performed By: #### P T, PTT #### [facility] [address] [place] [address] Dr. Mani Carpio Bilirubin [Mass/Vol] 0.7 mg/dL Normal 0.2-1.0 [facility] Comment on above: Performed By: #### P T, PTT #### [facility] [address] [address] [address] Mani Carpio Globulin (S) [Mass/Vol] 4.2 g/dL Normal [facility] Comment on above: Performed By: #### P T, PTT #### [facility] [address] [place] [address] Dr. Mani Carpio Protein [Mass/Vol] 7.8 g/dL Normal 6.4-8.2 [facility] Comment on above: Performed By: #### P T, PTT #### [facility] [address] [place] [address] Dr. Mani Carpio PROF CHEM 8 (BAS METB)on Anion gap [Moles/Vol] 12.0 mmol/L Normal [facility] Comment on above: Performed By: #### P T, PTT #### [facility] [address] [place] [address] Dr. Mani Carpio Calcium [Mass/Vol] 9.5 mg/dL Normal 8.5-10.1 [facility] Comment on above: Performed By: #### P T, PTT #### [facility] [address] [place] [address] Dr. Mani Carpio Chloride [Moles/Vol] 100 mmol/L Normal 98-107 [facility] Comment on above: Performed By: #### P T, PTT #### [facility] [address] [place] [address] Dr. Mani Carpio CO2 [Moles/Vol] 28.9 mmol/L Normal 21.0-32.0 [facility] Comment on above: Performed By: #### P T, PTT #### [facility] [address] [place] [address] Dr. Mani Carpio Creatinine [Mass/Vol] 1.01 mg/dL Normal 0.70-1.30 [facility] Comment on above: Performed By: #### P T, PTT #### [facility] [address] [place] [address] Dr. Mani Carpio EGFR-AF BAHRAINI >60 Normal >=60 [facility] Comment on above: Performed By: #### P T, PTT #### [facility] [address] [place] [address] Dr. Mani Carpio EGFR-NON AF BAHRAINI >60 Normal >=60 [facility] Comment on above: Performed By: #### P T, PTT #### [facility] [address] [place] [address] Dr. Mani Carpio Glucose [Mass/Vol] 221 mg/dL Critically high 74-106 [facility] Comment on above: Performed By: #### P T, PTT #### [facility] [address] [place] [address] Dr. Mani Carpio Potassium [Moles/Vol] 3.9 mmol/L Normal 3.5-5.1 [facility] Comment on above: Performed By: #### P T, PTT #### [facility] [address] [place] [address] Dr. Mani Carpio Sodium [Moles/Vol] 137 mmol/L Normal 136-145 [facility] Comment on above: Performed By: #### P T, PTT #### [facility] [address] [place] [address] Dr. Mani Carpio Urea nitrogen [Mass/Vol] 14.0 mg/dL Normal 7.0-18.0 [facility] Comment on above: Performed By: #### P T, PTT #### [facility] [address] [place] [address] Dr. Mani Carpio Urea nitrogen/Creatinine [Mass ratio] 13.9 mg/mg Normal [facility] Comment on above: Performed By: #### P T, PTT #### [facility] [address] [place] [address] Dr. Mani Carpio ACETONE SERUMon 09-02-2022 ACETONE Negative Normal NEGATIVE [facility] Comment on above: Performed By: #### P T, PTT #### [facility] [address] [place] [address] Dr. Mani Carpio BNPon 09-02-2022 Natriuretic peptide B (Bld) [Mass/Vol] 466.0 pg/mL Normal <=900.0 [facility] Comment on above: Performed By: #### L ACT #### [facility] [address] [place] [address] Dr. Mani Carpio CBC W MANUAL DIFFon 09-02-20 22 ATYPICAL LYMPH # Normal [facility] Comment on above: Performed By: #### C JUAN R #### [facility] [address] [place] [address] Dr. Mani Carpio ATYPICAL LYMPH % Normal [facility] Comment on above: Performed By: #### C JUAN R #### [facility] [address] [place] [address] Dr. Mani Carpio BAND # Normal 0.0-0.3 [facility] Comment on above: Performed By: #### C JUAN R #### [facility] [address] [place] [address] Dr. Mani Carpio BAND % Normal 0-5 [facility] Comment on above: Performed By: #### C JUAN R #### [facility] [address] [place] [address] Dr. Mani Carpio BASOM # 0.23 103/ul Critically high 0.00-0.10 [facility] Comment on above: Performed By: #### C JUAN R #### [facility] [address] [place] [address] Dr. Mani Carpio BASOM % 1.0 % Normal 0.2-2.0 [facility] Comment on above: Performed By: #### C JUAN R #### [facility] [address] [place] [address] Dr. Mani Carpio BLAST # Normal [facility] Comment on above: Performed By: #### C JUAN R #### [facility] [address] [place] [address] Dr. Mani Carpio BLAST % Normal [facility] Comment on above: Performed By: #### C JUAN R #### [facility] [address] [place] [address] Dr. Mani Carpio CORRECTED WBC Normal 4.0-11.0 [facility] Comment on above: Performed By: #### C JUAN R #### [facility] [address] [place] [address] Dr. Mani Carpio EOS # 0.00 103/ul Normal 0.00-0.70 [facility] Comment on above: Performed By: #### C JUAN R #### [facility] [address] [place] [address] Dr. Mani Carpio EOS% 0.0 % Critically low 0.9-7.0 [facility] Comment on above: Performed By: #### C JUAN R #### [facility] [address] [place] [address] Dr. Mani Carpio HCT 43.3 % Normal 42.0-54.0 [facility] Comment on above: Performed By: #### C JUAN R #### [facility] [address] [place] [address] Dr. Mani Carpio HGB 15.1 g/dl Normal 14.0-18.0 [facility] Comment on above: Performed By: #### C JUAN R #### [facility] [address] [place] [address] Dr. Mani Carpio LYMPHM # 2.49 103/ul Normal 1.20-3.80 [facility] Comment on above: Performed By: #### C JUAN R #### [facility] [address] [place] [address] Dr. Mani Carpio LYMPHM% 11.0 % Critically low 20.5-60.0 [facility] Comment on above: Performed By: #### Patrick PETE #### [facility] [address] [place] [address] Dr. Mani Carpio MCH 30.8 pg Normal 25.9-34.0 [facility] Comment on above: Performed By: #### C JUAN R #### [facility] [address] [place] [address] Dr. Mani Carpio MCHC 34.9 g/dl Normal 29.9-35.2 [facility] Comment on above: Performed By: #### C JUAN R #### [facility] [address] [place] [address] Dr. Mani Carpio MCV 88.2 fL Normal 80.0-94.0 [facility] Comment on above: Performed By: #### C JUAN R #### [facility] [address] [address] [address] Mani Carpio METAMYELOCYTE # Normal [facility] Comment on above: Performed By: #### C JUAN R #### [facility] [address] [place] [address] Dr. Mani Carpio METAMYELOCYTE % Normal [facility] Comment on above: Performed By: #### C JUAN R #### [facility] [address] [place] [address] Dr. Mani Carpio MONOM# 2.26 103/ul Critically high 0.30-0.80 [facility] Comment on above: Performed By: #### C JUAN R #### [facility] [address] [place] [address] Dr. Mani Carpio MONOM% 10.0 % Normal 1.7-12.0 [facility] Comment on above: Performed By: #### C JUAN R #### [facility] [address] [place] [address] Dr. Mani Carpio MPV 10.1 fL Normal 9.5-13.5 [facility] Comment on above: Performed By: #### Patrick PETE #### [facility] [address] [place] [address] Dr. Mani Carpio MYELOCYTE # Normal [facility] Comment on above: Performed By: #### Patrick PETE #### [facility] [address] [place] [address] Dr. Mani Carpio MYELOCYTE % Normal [facility] Comment on above: Performed By: #### C JUAN R #### [facility] [address] [place] [address] Dr. Mani Carpio NRBC Normal [facility] Comment on above: Performed By: #### C JUAN R #### [facility] [address] [place] [address] Dr. Mani Carpio PLT 311 103/ul Normal 150-450 [facility] Comment on above: Performed By: #### C JUAN R #### [facility] [address] [address] [address] Mani Carpio RBC 4.91 106/ul Normal 4.70-6.10 [facility] Comment on above: Performed By: #### Patrick PETE #### [facility] [address] [address] [address] Mani Carpio RDW 14.2 % Normal 11.0-15.0 [facility] Comment on above: Performed By: #### C JUAN R #### [facility] [address] [address] [address] Mani Carpio SEG # 17.63 103/ul Critically high 1.40-6.50 [facility] Comment on above: Performed By: #### C JUAN R #### [facility] [address] [address] [address] Mani Carpio SEG % 78.0 % Critically high 43.0-75.0 [facility] Comment on above: Performed By: #### Patrick PETE #### [facility] [address] [address] [address] Mani Carpio WBC 22.6 103/ul Critically high 4.0-11.0 [facility] Comment on above: Performed By: #### Patrick PETE #### [facility] [address] [place] [address] ABD/PELV W CONon [...] by: STEPHIE RODRIGUEZ Date: 2022-09-02 15:36 Normal [facility] CT STROKE HEAD WOon 09-02-[address] [...] JULISSA HACKETT Date: 2022-09-02 14:20 Normal [facility] CULTURE BLOODon 09-02-2022 Microscopic examination of blood, culture Culture Observations: NO GROWTH AT 5 DAYS. Normal [facility] Comment on above: Performed By: #### L ACT #### [facility] [address] [place], [place] [address] Dr. Mani Carpio Microscopic examination of blood, culture Culture Observations: NO GROWTH AT 5 DAYS. Normal [facility] Comment on above: Performed By: #### L ACT #### [facility] [address] [place], [place] [address] Dr. Mani Carpio Covid-19 PCR ([facility])on 08-18 SARS-CoV-2 (COVID-19) RNA PLACIDO+probe Ql (Unsp spec) Not detected Normal NOT DETECTED [facility] Comment on above: Result Comment: When [...] for this test is supported by the [place] of [employer] and Human Service's declaration that [...] used). Performed By: #### L ACT #### [facility] [address] [place], [place] [address] Dr. Mani Carpio ER URINE PROFILEon 2 Bilirubin Ql (U) Negative Normal NEGATIVE [facility] Comment on above: Performed By: #### U MICRO, ERUR #### [facility] [address] [place], [place] [address] Dr. Mani Carpio Clarity (U) CLEAR Normal CLEAR [facility] Comment on above: Performed By: #### U MICRO, ERUR #### [facility] [address] [address] [address] Mani Carpio Color (U) LT. YELLOW Normal YELLOW [facility] Comment on above: Performed By: #### U MICRO, ERUR #### [facility] [address] [address] [address] Mani Carpio ERUAHD A micrscopic examina tion will be performed if indicated. Normal [facility] Comment on above: Performed By: #### U MICRO, ERUR #### [facility] [address] [address] [address] Mani Carpio Glucose Ql (U) 500 mg/dl Abnormal NEGATIVE [facility] Comment on above: Performed By: #### U MICRO, ERUR #### [facility] [address] [place] [address] Dr. Mani Carpio Hemoglobin Ql (U) SMALL Abnormal NEGATIVE [facility] Comment on above: Performed By: #### U MICRO, ERUR #### [facility] [address] [address] [address] Mani Carpio Ketones Ql (U) Negative Normal NEGATIVE [facility] Comment on above: Performed By: #### U MICRO, ERUR #### [facility] [address] [place] [address] Dr. Mani Carpio LEUKOCYTES Negative Normal NEGATIVE [facility] Comment on above: Performed By: #### U MICRO, ERUR #### [facility] [address] [address] [address] Mani Carpio Nitrite Ql (U) Negative Normal NEGATIVE [facility] Comment on above: Performed By: #### U MICRO, ERUR #### [facility] [address] [address] [address] Mani Carpio pH (U) 7.0 [pH] Normal 5-9 [facility] Comment on above: Performed By: #### U MICRO, ERUR #### [facility] [address] [address] [address] Mani Carpio Protein (U) [Mass/Vol] 100 mg/dL Abnormal NEGAT SONYA/ TRACE [facility] Comment on above: Performed By: #### U MICRO, ERUR #### [facility] [address] [place] [address] Dr. Mani Carpio SPEC GRAVITY 1.015 Normal 1.005-<=1. 025 [facility] Comment on above: Performed By: #### U MICRO, ERUR #### [facility] [address] [place] [address] Dr. Mani Carpio UR MICRO IND INDICATED Normal [facility] Comment on above: Performed By: #### U MICRO, ERUR #### [facility] [address] [place] [address] Dr. Mani Carpio Urobilinogen Qn (U) 0.2 {Javon'U}/dL Normal 0.2 - 1. 0 [facility] Comment on above: Performed By: #### U MICRO, ERUR #### [facility] [address] [place] [address] Dr. Mani Carpio LACTATE/LACTIC ACIDon 2021 Lactate [Moles/Vol] 3.1 mmol/L Critically high 0.4-1.9 [facility] Comment on above: Performed By: #### L ACT #### [facility] [address] [place] [address] Dr. Mani Carpio Lactate [Moles/Vol] 4.0 mmol/L Critically high 0.4-1.9 [facility] Comment on above: Performed By: #### L ACT #### [facility] [address] [place] [address] Dr. Mani Carpio LIPASEon 09-02-2022 Lipase [Catalytic activity/Vol] 60.0 U/L Critically low 73.0-393.0 [facility] Comment on above: Performed By: #### L ACT #### [facility] [address] [place] [address] Dr. Mani Carpio PH VENOUS BLOODon 09-02-2022 PCO2 VENOUS 32.5 mmHg Critically low 40.0-52.0 [facility] Comment on above: Performed By: #### P HVEN #### [facility] [address] [place] [address] Dr. Mani Carpio pH VENOUS 7.454 Critically high 7.330-7.43 0 [facility] Comment on above: Performed By: #### P HVEN #### [facility] [address] [address] [address] Mani Carpio PROF 14(COMP METB)on 022 Albumin [Mass/Vol] 3.8 g/dL Normal 3.4-5.0 [facility] Comment on above: Performed By: #### L ACT #### [facility] [address] [place] [address] Dr. Mani Carpio Albumin/Globulin [Mass ratio] 0.8 {ratio} Normal [facility] Comment on above: Performed By: #### L ACT #### [facility] [address] [place] [address] Dr. Mani Carpio ALP [Catalytic activity/Vol] 83 U/L Normal 46-116 [facility] Comment on above: Performed By: #### L ACT #### [facility] [address] [place] [address] Dr. Mani Carpio ALT [Catalytic activity/Vol] 23 U/L Normal 16-63 [facility] Comment on above: Performed By: #### L ACT #### [facility] [address] [place] [address] Dr. Mani Carpio Anion gap [Moles/Vol] 13.9 mmol/L Normal [facility] Comment on above: Performed By: #### L ACT #### [facility] [address] [place] [address] Dr. Mani Carpio AST [Catalytic activity/Vol] 14 U/L Critically low 15-37 [facility] Comment on above: Performed By: #### L ACT #### [facility] [address] [place] [address] Dr. Mani Carpio Bilirubin [Mass/Vol] 1.1 mg/dL Critically high 0.2-1.0 [facility] Comment on above: Performed By: #### L ACT #### [facility] [address] [address] [address] Mani Carpio Calcium [Mass/Vol] 10.0 mg/dL Normal 8.5-10.1 [facility] Comment on above: Performed By: #### L ACT #### [facility] [address] [place] [address] Dr. Mani Carpio Chloride [Moles/Vol] 96 mmol/L Critically low 98-107 [facility] Comment on above: Performed By: #### L ACT #### [facility] [address] [place] [address] Dr. Mani Carpio CO2 [Moles/Vol] 24.8 mmol/L Normal 21.0-32.0 [facility] Comment on above: Performed By: #### L ACT #### [facility] [address] [place] [address] Dr. Mani Carpio Creatinine [Mass/Vol] 1.25 mg/dL Normal 0.70-1.30 [facility] Comment on above: Performed By: #### L ACT #### [facility] [address] [place] [address] Dr. Mani Carpio EGFR-AF BAHRAINI >60 Normal >=60 [facility] Comment on above: Performed By: #### L ACT #### [facility] [address] [place] [address] Dr. Mani Carpio EGFR-NON AF BAHRAINI 58 mL/min/1.73m2 Critically low >=60 [facility] Comment on above: Performed By: #### L ACT #### [facility] [address] [place] [address] Dr. Mani Carpio Globulin (S) [Mass/Vol] 4.6 g/dL Normal [facility] Comment on above: Performed By: #### L ACT #### [facility] [address] [place] [address] Dr. Mani Carpio Glucose [Mass/Vol] 204 mg/dL Critically high 74-106 [facility] Comment on above: Performed By: #### L ACT #### [facility] [address] [place] [address] Dr. Mani Carpio Potassium [Moles/Vol] 3.7 mmol/L Normal 3.5-5.1 [facility] Comment on above: Performed By: #### L ACT #### [facility] [address] [address] [address] Mani Carpio Protein [Mass/Vol] 8.4 g/dL Critically high 6.4-8.2 [facility] Comment on above: Performed By: #### L ACT #### [facility] [address] [address] [address] Mani Carpio Sodium [Moles/Vol] 131 mmol/L Critically low 136-145 [facility] Comment on above: Performed By: #### L ACT #### [facility] [address] [place] [address] Dr. Mani Carpio Urea nitrogen [Mass/Vol] 17.0 mg/dL Normal 7.0-18.0 [facility] Comment on above: Performed By: #### L ACT #### [facility] [address] [place] [address] Dr. Mani Carpio Urea nitrogen/Creatinine [Mass ratio] 13.6 mg/mg Normal [facility] Comment on above: Performed By: #### L ACT #### [facility] [address] [place] [address] Dr. Mani Carpio PROTIMEon 09-02-2022 INR Coag (PPP) [Relative time] 1.07 {INR} Normal [facility] Comment on above: Performed By: #### P T, PTT #### [facility] [address] [place] [address] Dr. Mani Carpio INR GUIDELINES SEE BELOW Normal [facility] Comment on above: Result Comment: SETH RED INR: 2.0 - 3.0 CONDITIONS NOT LISTED BELOW 2.5 - 3.5 FOR PROSTHETIC HEART VALVE REPLACEMENT 2.5 - 3.5 RECURRENT THROMBOSIS Performed By: #### P T, PTT #### [facility] [address] [place] [address] Dr. Mani Carpio PT Coag (PPP) [Time] 11.5 s Normal 9.0-11.6 [facility] Comment on above: Performed By: #### P T, PTT #### [facility] [address] [place] [address] Dr. Mani Carpio PTTon 09-02-2022 aPTT Coag (Bld) [Time] 29.3 s Normal 22.3-36.2 [facility] Comment on above: Performed By: #### P T, PTT #### [facility] [address] [place] [address] Dr. Mani Carpio TROPONIN, HIGH SENSITIVITYon 09-02-2022 HSTROP 13.4 pg/mL Normal 4.0-76.1 [facility] Comment on above: Result Comment: CUT- OFF POINTS HAVE BEEN ESTABLISHED BASED ON THE FOURTH UNIVERSAL DEFINITIONS OF MYOCARDIAL INFARCTION. THE UPPER REFERENCE LIMIT (URL) OF TROPONIN, DEFINED THE 99TH PERCENTILE OF cTnI DISTRIBUTION IN A REFERENCE POPULATION, HAS BEEN CONFIRMED THE DECISION THRESHOLD FOR AK DIAGNOSIS. Performed By: #### L ACT #### [facility] [address] [place] [address] Dr. Mani Carpio TSHon 09-02-2022 TSH 0.555 uIU/mL Normal 0.358-3.74 0 [facility] Comment on above: Performed By: #### L ACT #### [facility] [address] [place] [address] Dr. Mani Carpio URINE MICROSCOPIC ONLYon BACTERIA TRACE Abnormal NONE SEEN [facility] Comment on above: Performed By: #### U MICRO, ERUR #### [facility] [address] [place] [address] Dr. Mani Carpio Bacteria identified Cx Nom (U) NOT INDICATED Normal [facility] Comment on above: Performed By: #### U MICRO, ERUR #### [facility] [address] [place] [address] Dr. Mani Carpio CAST NONE SEEN Normal NONE SEEN [facility] Comment on above: Performed By: #### U MICRO, ERUR #### [facility] [address] [place] [address] Dr. Mani Carpio Crystals LM Nom (Urine sed) NONE SEEN Normal NONE SEEN [facility] Comment on above: Performed By: #### U MICRO, ERUR #### [facility] [address] [address] [address] Mani Carpio Epithelial cells LM Ql (Urine sed) RARE Normal NONE SEEN /RARE [facility] Comment on above: Performed By: #### U MICRO, ERUR #### [facility] [address] [address] [address] Mani Carpio MUCOUS NONE SEEN Normal NONE SEEN [facility] Comment on above: Performed By: #### U MICRO, ERUR #### [facility] [address] [address] [address] Mani Carpio RBC 5-10 Abnormal 0-2 [facility] Comment on above: Performed By: #### U MICRO, ERUR #### [facility] [address] [address] [address] Mani Carpio WBC 0-2 Abnormal NONE SEEN [facility] Comment on above: Performed By: #### U MICRO, ERUR #### [facility] [address] [address] [address] Mani Carpio US SINGLE QUAD RT [...] ELBA SHIPMAN Date: 2022-09-02 17:25 Normal [facility] US MARQUIS DOP LEG BILon 022 [...] by: HARMONY BRIGGS Date: 2022-09-02 16:58 Normal [facility] XR CHEST 1 Von 09-02-2022 XR CHEST [...] by: SHAHIDA ANDERSON Date: 2022-09-02 14:24 Normal [facility] ECHOCARDIO M/2D COMPLETEon 1 10-21-2021 ECHOCARDIO M/2D COMPLETE Patient: YOEL VAN Exam Date: 08/21/2022 : 1955 Gender:M Ordering : [facility] Admission #: [id number] Family : Order #: [id number] CLICK HERE TO VIEW EXAM ECHOCARDIOGRAM REPORT [...] Guevara M.D. on 08/21/2022 at 18:08 Normal [facility] GLYCOHEMOGLOBIN A1Con 2021 ADA RECOMMENDATION SEE BELOW Normal [facility] Comment on above: Result Comment: ADA RECOMMENDED LIMIT 4.0 - 6.0 ADA THERAPEUTIC TARGET < 7.0 ACTION SUGGESTED > 7.0 Performed By: #### A 1C #### [facility] [address] [address] [address] Mani Carpio Glucose [Mass/Vol] 186 mg/dL Normal [facility] Comment on above: Performed By: #### A 1C #### [facility] [address] [address] [address] Mani Carpio HbA1c (Bld) [Mass fraction] 8.1 % Critically high 4.5-6.2 [facility] Comment on above: Performed By: #### A 1C #### [facility] [address] [place], [place] [address] Dr. Mani Carpio APTTon 05-03-2021 aPTT Coag (Bld) [Time] 20.8 s Normal 20.5-30.5 [facility] Comment on above: Result Comment: IV Heparin Therapy Range: 48.6-77.8 Performed By: #### S ED, CRP, STROKE #### [facility] [employer] [address] [place], [place] [id number] [place] Floor Installer: Bowen Lemon MD APTTOrdered By: Ning martines on 05-03-2021 aPTT Coag (Bld) [Time] 20.8 s [facility] [employer] Phone: Comment on above: IV Heparin Therapy Range: 48.6-77.8 [facility] [employer] Phone: Basic Metab w/rfx MGon 05-03 (cont.) Normal [facility] Comment on above: Result Comment: Aver age GFR for 60-69 years old: 85 mL/min/1.73sq m Chronic Kidney Disease: <60 mL/min/1.73sq m Kidney failure: <15 mL/min/1.73sq m eGFR calculated using average adult body mass. Additional eGFR calculator available at: http://www.[employer]/multiple_crcl_2011.htm Performed By: #### S ED, CRP, STROKE #### [facility] [address] [place] [address] [place] [employer] Installer: Bowen Lemon MD Anion gap [Moles/Vol] 12 mmol/L Normal 9-17 [facility] Comment on above: Performed By: #### S ED, CRP, STROKE #### [facility] [employer] [address] [place] [address] [employer]er: Bowen Lemon MD Calcium [Mass/Vol] 9.4 mg/dL Normal 8.6-10.4 [facility] Comment on above: Performed By: #### S ED, CRP, STROKE #### [employer] [address] [place] [address] [place] [employer]er: Bowen Lemon MD Chloride [Moles/Vol] 103 mmol/L Normal 98-107 [facility] Comment on above: Performed By: #### S ED, CRP, STROKE #### [facility] [employer] [address] [place] [address] [employer]er: Bowen Lemon MD CO2 [Moles/Vol] 20 mmol/L Normal 20-31 [facility] Comment on above: Performed By: #### S ED, CRP, STROKE #### [facility] [address] [place] [address] [place] [employer] Installer: Bowen Lemon MD Creatinine [Mass/Vol] 0.85 mg/dL Normal 0.70-1.20 [facility] Comment on above: Performed By: #### S ED, CRP, STROKE #### [facility] [address] [place] [address] [place] [employer] Installer: Bowen Lemon MD GFR, Amer >60 Normal >60 [facility] Comment on above: Performed By: #### S ED, CRP, STROKE #### [facility] [employer] [address] [place] [address] [employer]er: Bowen Lemon MD GFR,non Amer >60 Normal >60 [facility] Comment on above: Performed By: #### S ED, CRP, STROKE #### [facility] [employer] [address] [place] [address] [employer] Installer: Bowen Lemon MD Glucose [Mass/Vol] 163 mg/dL High 70-99 [facility] Comment on above: Performed By: #### S ED, CRP, STROKE #### [facility] [employer] [address] [place] [address] [employer]er: Bowen Lemon MD Potassium [Moles/Vol] 4.1 mmol/L Normal 3.7-5.3 [facility] Comment on above: Performed By: #### S ED, CRP, STROKE #### [facility] [address] [place] [address] [employer] Installer: Bowen Lemon MD Sodium [Moles/Vol] 135 mmol/L Normal 135-144 [facility] Comment on above: Performed By: #### S ED, CRP, STROKE #### [facility] [address] [place] [address] [place] [employer] Installer: Bowen Lemon MD Urea nitrogen [Mass/Vol] 12 mg/dL Normal - [facility] Comment on above: Performed By: #### S ED, CRP, STROKE #### [facility] [address] [place] [address] [employer] Installer: Bowen Lemon MD BUN/CRE Ratio NOT REPORTED Normal - [facility] Comment on above: Performed By: #### S ED, CRP, STROKE #### [facility] [address] [place] [address] [employer] Installer: Bowen Lemon MD Staging: NOT REPORTED Normal [facility] Comment on above: Performed By: #### S ED, CRP, STROKE #### [facility] [address] [place] [address] [employer] Installer: Bowen Lemon MD Basic Metabolic Panel w/ Ref darlene to MGOrdered By: Jarek Osborn on 05-03-2021 Anion gap [Moles/Vol] 12 mmol/L 9 - 17 mmol/L [employer] Phone: Calcium [Mass/Vol] 9.4 mg/dL 8.6 - 10. 4 mg/dL [employer] Phone: Chloride [Moles/Vol] 103 mmol/L 98 - 10 7 mmol/L [employer] Phone: CO2 [Moles/Vol] 20 mmol/L 20 - 31 mmol/L [employer] Phone: Creatinine [Mass/Vol] 0.85 mg/dL 0.70 - 1.20 mg/dL [employer] Phone: GFR >60 >60 mL/min [employer] Phone: GFR Non- >60 >60 mL/min [employer] Phone: GFR/1.73 sq M.predicted MDRD (S/P/Bld) [Vol rate/Area] [employer] Phone: Comment on above: Average GFR for 60-6 9 years old: 85 mL/min/1.73sq m Chronic Kidney Disease: <60 mL/min/1.73sq m Kidney failure: <15 mL/min/1.73sq m eGFR calculated using average adult body mass. Additional eGFR calculator available at: http://www.[employer]/multiple_crcl_2012.htm GFR/1.73 sq M.predicted MDRD (S/P/Bld) [Vol rate/Area] NOT REPORTED [employer] Phone: Glucose [Mass/Vol] 163 mg/dL High 70 - 99 mg/dL [employer] Phone: Interpretation and review of laboratory results Abnormal [employer] Phone: Potassium [Moles/Vol] 4.1 mmol/L 3.7 - 5.3 mmol/L [employer] Phone: Sodium [Moles/Vol] 135 mmol/L 135 - 144 mmol/L [employer] Phone: Urea nitrogen (BldV) [Mass/Vol] 12 mg/dL 8 - 23 mg/dL [employer] Phone: Urea nitrogen/Creatinine (Bld) [Mass ratio] NOT REPORTED [employer] Phone: CBCon 05-03-2021 Erythrocyte distribution width (RBC) [Ratio] 14.5 % High 11.8-14.4 [facility] Comment on above: Performed By: #### S ED, CRP, STROKE #### [employer] [facility] [place] [address] [place] Floor Installer: Bowen Lemon MD Hematocrit (Bld) [Volume fraction] 38.4 % Low 40.7-50.3 [facility] Comment on above: Performed By: #### S ED, CRP, STROKE #### [facility] [address] [place] [address] [place] [employer] Installer: Bowen Lemon MD Hemoglobin (Bld) [Mass/Vol] 12.6 g/dL Low 13.0-17.0 [facility] Comment on above: Performed By: #### S ED, CRP, STROKE #### [facility] [address] [place] [address] [employer] Installer: Bowen Lemon MD MCH (RBC) [Entitic mass] 30.2 pg Normal 25.2-33.5 [facility] Comment on above: Performed By: #### S ED, CRP, STROKE #### [address] [address] [place] [employer] Installer: Bowen Lemon MD MCHC (RBC) [Mass/Vol] 32.8 g/dL Normal 28.4-34.8 [facility] Comment on above: Performed By: #### S ED, CRP, STROKE #### [address] [address] [place] [employer] Installer: Bowen Lemon MD MCV (RBC) [Entitic vol] 92.1 fL Normal 82.6-102.9 [facility] Comment on above: Performed By: #### S ED, CRP, STROKE #### [facility] [employer] [address] [place] [address] [place] [employer] Installer: Bowen Lemon MD NRBC Automated 0.0 per 100 WBC Normal 0.0 [facility] Comment on above: Performed By: #### S ED, CRP, STROKE #### [facility] [address] [place] [address] [place] [employer] Installer: Bowen Lemon MD Platelet mean volume (Bld) [Entitic vol] 10.8 fL Normal 8.1-13.5 [facility] Comment on above: Performed By: #### S ED, CRP, STROKE #### [facility] [address] [place] [address] [employer] Installer: Bowen Lemon MD Platelets (Bld) [#/Vol] 225 10*3/uL Normal 138-453 [facility] Comment on above: Performed By: #### S ED, CRP, STROKE #### [facility] [address] [place] [address] [place] Floor Installer: Bowen Lemon MD RBC (Bld) [#/Vol] 4.17 10*6/uL Low 4.21-5.77 [facility] Comment on above: Performed By: #### S ED, CRP, STROKE #### [facility] [address] [place] [address] [place] Floor Installer: Bowen Lemon MD WBC (Bld) [#/Vol] 6.6 10*3/uL Normal 3.5-11.3 [facility] Comment on above: Performed By: #### S ED, CRP, STROKE #### [facility] [address] [place] [address] [place] [employer] Installer: Bowen Lemon MD CBCOrdered By: Gee benoit on 05-03-2021 Hematocrit (Bld) [Volume fraction] 38.4 % Low 40.7 - 50.3 % [employer] Phone: Hemoglobin.gastrointest inal spec 1 Ql (Stl) 12.6 g/dL Low 13.0 - 17.0 g/dL [employer] Phone: Interpretation and review of laboratory results Abnormal [employer] Phone: MCH (RBC) [Entitic mass] 30.2 pg 25.2 - 33.5 pg [employer] Phone: MCHC (RBC) [Mass/Vol] 32.8 g/dL 28.4 - 34.8 g/dL [employer] Phone: MCV (RBC) [Entitic vol] 92.1 fL 82.6 - 102.9 fL [employer] Phone: NRBC Automated 0.0 0.0 per 100 WBC [employer] Phone: Platelet distribution width (Bld) [Ratio] 14.5 % High 11.8 - 14.4 % [employer] Phone: Platelet mean volume (Bld) [Entitic vol] 10.8 fL 8.1 - 13.5 fL [employer] Phone: Platelets (Bld) [#/Vol] 225 10*3/uL [employer] Phone: RBC (Bld) [#/Vol] 4.17 10*6/uL Low 4.21 - 5.77 m/uL [employer] Phone: WBC (Bld) [#/Vol] 6.6 10*3/uL [employer] Phone: [employer] Phone: MAGNESIUMOrdered By: Gee Parnell on 05-03-2021 Magnesium [Mass/Vol] 1.7 mg/dL 1.6 - 2 .6 mg/dL [employer] Phone: Magnesiumon 05-03-2021 Magnesium [Mass/Vol] 1.7 mg/dL Normal 1.6-2.6 [facility] Comment on above: Performed By: #### S ED, CRP, STROKE #### [facility] [place] [address] [place] Floor Installer: Bwoen Lemon MD No Panel InformationOrdered By: Jarek Osborn on 05-03-2021 [employer] Phone: POC Glucose FingerstickOrder ed By: Ning [place] on 05-03-2021 Glucose [Mass/Vol] 163 mg/dL High 75 - 110 mg/dL [facility]: Interpretation and review of laboratory results Abnormal [facility] Phone: [facility] Phone: APTTon 05-02-2021 aPTT Coag (Bld) [Time] 60.3 s High 20.5-30.5 [facility] Comment on above: Result Comment: IV Heparin Therapy Range: 48.6-77.8 Performed By: #### S ED, CRP, STROKE #### [facility] [place] [address] [place] Floor Installer: Bowen Lemon MD APTTOrdered By: Ning martines on 05-02-2021 aPTT Coag (Bld) [Time] 60.3 s High [facility] [employer] Phone: Comment on above: IV Heparin Therapy Range: 48.6-77.8 Interpretation and review of laboratory results Abnormal [facility] Phone: [facility] Phone: [employer] clotting timeOrder ed By: Ning [place] on 05-02-2021 Activated Clotting Time 227 High M [facility] [employer] Phone: Interpretation and review of laboratory results Abnormal [facility] Phone: [facility] [employer] Phone: Basic Metab w/rfx MGon 05-02 (cont.) Normal [facility] Comment on above: Result Comment: Aver age GFR for 60-69 years old: 85 mL/min/1.73sq m Chronic Kidney Disease: <60 mL/min/1.73sq m Kidney failure: <15 mL/min/1.73sq m eGFR calculated using average adult body mass. Additional eGFR calculator available at: http://www.[employer]/multiple_crcl_2012.htm Performed By: #### S ED, CRP, STROKE #### [facility] [address] [place] [address] [place] [employer] Installer: Bowen Lemon MD Anion gap [Moles/Vol] 14 mmol/L Normal 9-17 [facility] Comment on above: Performed By: #### S ED, CRP, STROKE #### [facility] [address] [place] [address] [place] [employer] Installer: Bowen Lemon MD Calcium [Mass/Vol] 9.4 mg/dL Normal 8.6-10.4 [facility] Comment on above: Performed By: #### S ED, CRP, STROKE #### [facility] [address] [place] [address] [place] [employer] Installer: Bowen Lemon MD Chloride [Moles/Vol] 106 mmol/L Normal 98-107 [facility] Comment on above: Performed By: #### S ED, CRP, STROKE #### [facility] [address] [place] [address] [place] [employer] Installer: Bowen Lemon MD CO2 [Moles/Vol] 19 mmol/L Low 20-31 [facility] Comment on above: Performed By: #### S ED, CRP, STROKE #### [facility] [address] [place] [address] [employer] Installer: Bowen Lemon MD Creatinine [Mass/Vol] 0.87 mg/dL Normal 0.70-1.20 [facility] Comment on above: Performed By: #### S ED, CRP, STROKE #### [facility] [address] [place] [address] [place] Floor Installer: Bowen Lemon MD GFR, Amer >60 Normal >60 [facility] Comment on above: Performed By: #### S ED, CRP, STROKE #### [facility] [address] [place] [address] [place] Floor Installer: Bowen Lemon MD GFR,non Amer >60 Normal >60 [facility] Comment on above: Performed By: #### S ED, CRP, STROKE #### [facility] [address] [place] [address] [place] Floor Installer: Bowen Lemon MD Glucose [Mass/Vol] 161 mg/dL High 70-99 [facility] Comment on above: Performed By: #### S ED, CRP, STROKE #### [facility] [address] [place] [address] [place] Floor Installer: Bowen Lemon MD Potassium [Moles/Vol] 4.0 mmol/L Normal 3.7-5.3 [facility] Comment on above: Performed By: #### S ED, CRP, STROKE #### [facility] [employer] [address] [place] [address] [place] [employer] Installer: Bowen Lemon MD Sodium [Moles/Vol] 139 mmol/L Normal 135-144 [facility] Comment on above: Performed By: #### S ED, CRP, STROKE #### [facility] [employer] [address] [place] [address] [place] [employer] Installer: Bowen Lemon MD Urea nitrogen [Mass/Vol] 11 mg/dL Normal 8-23 [facility] Comment on above: Performed By: #### S ED, CRP, STROKE #### [facility] [address] [place] [address] [place] Floor Installer: Bowen Lemon MD BUN/CRE Ratio NOT REPORTED Normal 9-20 [facility] Comment on above: Performed By: #### S ED, CRP, STROKE #### [facility] [employer] [address] [place] [address] [place] Floor Installer: Bowen Lemon MD Staging: NOT REPORTED Normal [facility] Comment on above: Performed By: #### S ED, CRP, STROKE #### [employer] [facility] [place] [address] [place] Floor Installer: Bowen Lemon MD Basic Metabolic Panel w/ Ref darlene to MGOrdered By: Jarek Osborn on 05-02-2021 Anion gap [Moles/Vol] 14 mmol/L 9 - 17 mmol/L [employer] Phone: Calcium [Mass/Vol] 9.4 mg/dL 8.6 - 10. 4 mg/dL [employer] Phone: Chloride [Moles/Vol] 106 mmol/L 98 - 10 7 mmol/L [employer] Phone: CO2 [Moles/Vol] 19 mmol/L Low 20 - 31 mmol/L [employer] Phone: Creatinine [Mass/Vol] 0.87 mg/dL 0.70 - 1.20 mg/dL [employer] Phone: GFR >60 >60 mL/min [employer] Phone: GFR Non- >60 >60 mL/min [employer] Phone: GFR/1.73 sq M.predicted MDRD (S/P/Bld) [Vol rate/Area] [employer] Phone: Comment on above: Average GFR for 60-6 9 years old: 85 mL/min/1.73sq m Chronic Kidney Disease: <60 mL/min/1.73sq m Kidney failure: <15 mL/min/1.73sq m eGFR calculated using average adult body mass. Additional eGFR calculator available at: http://www.[employer]/multiple_crcl_2012.htm GFR/1.73 sq M.predicted MDRD (S/P/Bld) [Vol rate/Area] NOT REPORTED [employer] Phone: Glucose [Mass/Vol] 161 mg/dL High 70 - 99 mg/dL [employer] Phone: Potassium [Moles/Vol] 4.0 mmol/L 3.7 - 5.3 mmol/L [employer] Phone: Sodium [Moles/Vol] 139 mmol/L 135 - 144 mmol/L [employer] Phone: Urea nitrogen (BldV) [Mass/Vol] 11 mg/dL 8 - 23 mg/dL [employer] Phone: Urea nitrogen/Creatinine (Bld) [Mass ratio] NOT REPORTED [employer] Phone: Catheterization and angiogra phy procedure details panelOrdered By: Ning Wallace on 05-02-2021 Cardiac Intervention al Report Demographics Patient REHAN Bryant Date of Study 05/02/2021 Name Date of 1955 Gender Male Age 65 year(s) Race Room [id number]^ALIA^NING Height: 72 inch, 182.88 cm Number Corporate [id number] Weight: 223 pounds, 101.2 kg ID # Patient [id number] BSA: 2.23 m^2 BMI: 30.24 Acct # kg/m^2 MR # [id number] Performing Nikolas Bojorquez Physician Referring # Physician Assisting Physician Additional Comments H&P reviewed and patient examined by performing physician prior to the procedure on 05/02/21 at No changes noted. If changes, see note below. ASA Classification / Mallampati : per Physician. ASA & Mallampati documented in [facility] by Physician. Procedure Procedure Type: PCI [...] vessel has 40% stenosis OM has proximal CLERICAL ASSISTANT and supplied by [employer] on Mid [...] P.O. 243 mg. Contrast Material: - Isovue 06378 ml Fluoroscopy Time: Diagnostic: 8:54 minutes. Total: [...] assessed as CCS III according to the [place] clinical classification. Hemodynamics Condition: Baseline Room Air Estimated: 266.29Heart Rate: 76 bpm Pressure +-----+ + !Site !Pressure ! +-----+ + !AO !96/54 (66) (more content not included)... [employer] Phone: Adam, Mhpn Negin wilson Results From [facility] - 05/02/2021 5:39 PM EDT Cardiac Interventional Report Demographics Patient REHAN Bryant Date of Study 05/02/2021 Name Date of 1955 Gender Male Age 65 year(s) Race Room [id number]^ALIA^NING Height: 72 inch, 182.88 cm Number Corporate [id number] Weight: 223 pounds, 101.2 kg ID # Patient [id number] BSA: 2.23 m^2 BMI: 30.24 Acct # kg/m^2 MR # [id number] Performing Nikolas Bojorquez Physician Referring # Physician [...] vessel has 40% stenosis OM has proximal CLERICAL ASSISTANT and supplied by [employer] on Mid [...] P.O. 243 mg. Contrast Material: - Isovue 13892 ml Fluoroscopy Time: Diagnostic: 8:54 minutes. Total: [...] assessed as CCS III according to the [place] clinical classification. Hemodynamics Condition: Baseline Room Air Estimated: 266.29Heart Rate: 76 bpm Pressure +-----+ + !Site !Pressure ! +-----+ + !AO !96/54 (66) ! +-----+ + Shunts Oxygen Values O2 [id number] Qkpmcrvcgav375.29 [employer] Phone: [employer] Phone: Catheterization and angiogra phy procedure details panelOrdered By: Unknown Result on 05-02-2021 [employer] Phone: MAGNESIUMOrdered By: Gee Parnell on 05-02-2021 Magnesium [Mass/Vol] 1.5 mg/dL Low 1.6 - 2 .6 mg/dL [employer] Phone: Magnesiumon 05-02-2021 Magnesium [Mass/Vol] 1.5 mg/dL Low 1.6-2.6 [facility] Comment on above: Performed By: #### S ED, CRP, STROKE #### [employer] [address] [place], [place] [id number] [place] Floor Installer: Bowen Lemon MD No Panel InformationOrdered By: Jarek Osborn on 05-02-2021 Interpretation and review of laboratory results Abnormal [employer] Phone: [employer] Phone: POC Glucose FingerstickOrder ed By: Ning Wallace on 05-02-2021 Glucose [Mass/Vol] 171 mg/dL High 75 - 110 mg/dL [employer] Phone: Interpretation and review of laboratory results Abnormal [employer] Phone: [employer] Phone: Glucose [Mass/Vol] 152 mg/dL High 75 - 110 mg/dL [employer] Phone: Interpretation and review of laboratory results Abnormal [employer] Phone: [employer] Phone: Glucose [Mass/Vol] 170 mg/dL High 75 - 110 mg/dL [employer] Phone: Interpretation and review of laboratory results Abnormal [employer] Phone: [employer] Phone: Glucose [Mass/Vol] 163 mg/dL High 75 - 110 mg/dL [employer] Phone: Interpretation and review of laboratory results Abnormal [employer] Phone: [employer] Phone: APTTon 05-01-2021 aPTT Coag (Bld) [Time] 56.9 s High 20.5-30.5 [facility] Comment on above: Result Comment: IV Heparin Therapy Range: 48.6-77.8 Performed By: #### S ED, CRP, STROKE #### [facility] [address] [place] [address] [place] Floor Installer: Bowen Lemon MD APTTOrdered By: Gee kim on 05-01-2021 aPTT Coag (Bld) [Time] 56.9 s High Me [facility] [employer] Phone: Comment on above: IV Heparin Therapy Range: 48.6-77.8 Interpretation and review of laboratory results Abnormal [facility] [employer] Phone: [facility] Phone: Basic Metab w/rfx MGon 05-01 (cont.) Normal [facility] Comment on above: Result Comment: Aver age GFR for 60-69 years old: 85 mL/min/1.73sq m Chronic Kidney Disease: <60 mL/min/1.73sq m Kidney failure: <15 mL/min/1.73sq m eGFR calculated using average adult body mass. Additional eGFR calculator available at: http://www.[employer]/multiple_crcl_2012.htm Performed By: #### S ED, CRP, STROKE #### [facility] [employer] [address] [place] [address] [place] [employer] Installer: Bowen Lemon MD Anion gap [Moles/Vol] 14 mmol/L Normal 9-17 [facility] Comment on above: Performed By: #### S ED, CRP, STROKE #### [facility] [employer] [address] [place] [address] [place] [employer] Installer: Bowen Lemon MD Calcium [Mass/Vol] 9.6 mg/dL Normal 8.6-10.4 [facility] Comment on above: Performed By: #### S ED, CRP, STROKE #### [employer] [address] [place] [address] [place] [employer] Installer: Bowen Lemon MD Chloride [Moles/Vol] 105 mmol/L Normal 98-107 [facility] Comment on above: Performed By: #### S ED, CRP, STROKE #### [facility] [employer] [address] [place] [address] [place] [employer] Installer: Bowen Lemon MD CO2 [Moles/Vol] 20 mmol/L Normal 20-31 [facility] Comment on above: Performed By: #### S ED, CRP, STROKE #### [facility] [address] [place] [address] [place] [employer] Installer: Bowen Lemon MD Creatinine [Mass/Vol] 0.62 mg/dL Low 0.70-1.20 [facility] Comment on above: Performed By: #### S ED, CRP, STROKE #### [facility] [address] [place] [address] [place] [employer] Installer: Bowen Lemon MD GFR, Amer >60 Normal >60 [facility] Comment on above: Performed By: #### S ED, CRP, STROKE #### [facility] [address] [place] [address] [place] [employer] Installer: Bowen Lemon MD GFR,non Amer >60 Normal >60 [facility] Comment on above: Performed By: #### S ED, CRP, STROKE #### [facility] [address] [place] [address] [place] [employer] Installer: Bowen Lemon MD Glucose [Mass/Vol] 185 mg/dL High 70-99 [facility] Comment on above: Performed By: #### S ED, CRP, STROKE #### [facility] [address] [place] [address] [place] [employer] Installer: Bowen Lemon MD Potassium [Moles/Vol] 4.3 mmol/L Normal 3.7-5.3 [facility] Comment on above: Result Comment: SPEC IMEN SLIGHTLY HEMOLYZED, RESULTS MAY BE ADVERSELY AFFECTED. Performed By: #### S ED, CRP, STROKE #### [facility] [address] [place] [address] [place] [employer] Installer: Bowen Lemon MD Sodium [Moles/Vol] 139 mmol/L Normal 135-144 [facility] Comment on above: Performed By: #### S ED, CRP, STROKE #### [facility] [address] [place], [place] [id number] [place] [employer] Installer: Bowen Lemon MD Urea nitrogen [Mass/Vol] 14 mg/dL Normal 8- [facility] Comment on above: Performed By: #### S ED, CRP, STROKE #### [facility] [address] [place] [address] [place] Floor Installer: Bowen Lemon MD BUN/CRE Ratio NOT REPORTED Normal - [facility] Comment on above: Performed By: #### S ED, CRP, STROKE #### [facility] [address] [place], [place] [id number] [place] [employer] Installer: Bowen Lemon MD Staging: NOT REPORTED Normal [facility] Comment on above: Performed By: #### S ED, CRP, STROKE #### [facility] [address] [place] [address] [place] [employer] Installer: Bowen Lemon MD Basic Metabolic Panel w/ Ref darlene to MGOrdered By: Jarek Osborn on 05-01-2021 Anion gap [Moles/Vol] 14 mmol/L 9 - 17 mmol/L [employer] Phone: Calcium [Mass/Vol] 9.6 mg/dL 8.6 - 10. 4 mg/dL [employer] Phone: Chloride [Moles/Vol] 105 mmol/L 98 - 10 7 mmol/L [employer] Phone: CO2 [Moles/Vol] 20 mmol/L 20 - 31 mmol/L [employer] Phone: Creatinine [Mass/Vol] 0.62 mg/dL Low 0.70 - 1.20 mg/dL [employer] Phone: GFR >60 >60 mL/min [employer] Phone: GFR Non- >60 >60 mL/min [employer] Phone: GFR/1.73 sq M.predicted MDRD (S/P/Bld) [Vol rate/Area] [employer] Phone: Comment on above: Average GFR for 60-6 9 years old: 85 mL/min/1.73sq m Chronic Kidney Disease: <60 mL/min/1.73sq m Kidney failure: <15 mL/min/1.73sq m eGFR calculated using average adult body mass. Additional eGFR calculator available at: http://www.[employer]/multiple_crcl_2012.htm GFR/1.73 sq M.predicted MDRD (S/P/Bld) [Vol rate/Area] NOT REPORTED [employer] Phone: Glucose [Mass/Vol] 185 mg/dL High 70 - 99 mg/dL [employer] Phone: Interpretation and review of laboratory results Abnormal [employer] Phone: Potassium [Moles/Vol] 4.3 mmol/L 3.7 - 5.3 mmol/L [employer] Phone: Comment on above: SPECIMEN SLIGHTLY HE MOLYZED, RESULTS MAY BE ADVERSELY AFFECTED. Sodium [Moles/Vol] 139 mmol/L 135 - 144 mmol/L [employer] Phone: Urea nitrogen (BldV) [Mass/Vol] 14 mg/dL 8 - 23 mg/dL [employer] Phone: Urea nitrogen/Creatinine (Bld) [Mass ratio] NOT REPORTED [employer] Phone: [employer] Phone: CBCon 05-01-2021 Erythrocyte distribution width (RBC) [Ratio] 14.3 % Normal 11.8-14.4 [facility] Comment on above: Performed By: #### S ED, CRP, STROKE #### [address] [address] [place] Floor Installer: Bowen Lemon MD Hematocrit (Bld) [Volume fraction] 38.2 % Low 40.7-50.3 [facility] Comment on above: Performed By: #### S ED, CRP, STROKE #### [address] [address] [place] Floor Installer: Bowen Lemon MD Hemoglobin (Bld) [Mass/Vol] 12.6 g/dL Low 13.0-17.0 [facility] Comment on above: Performed By: #### S ED, CRP, STROKE #### [address] [address] [place] Floor Installer: Bowen Lemon MD MCH (RBC) [Entitic mass] 30.7 pg Normal 25.2-33.5 [facility] Comment on above: Performed By: #### S ED, CRP, STROKE #### [address] [address] [place] Floor Installer: Bowen Lemon MD MCHC (RBC) [Mass/Vol] 33.0 g/dL Normal 28.4-34.8 [facility] Comment on above: Performed By: #### S ED, CRP, STROKE #### [address] [address] [place] Floor Installer: Bowen Lemon MD MCV (RBC) [Entitic vol] 93.2 fL Normal 82.6-102.9 [facility] Comment on above: Performed By: #### S ED, CRP, STROKE #### [address] [address] [place] Floor Installer: Bowen Lemon MD NRBC Automated 0.0 per 100 WBC Normal 0.0 [facility] Comment on above: Performed By: #### S ED, CRP, STROKE #### [address] [address] [place] Floor Installer: Bowen Lemon MD Platelet mean volume (Bld) [Entitic vol] 10.9 fL Normal 8.1-13.5 [facility] Comment on above: Performed By: #### S ED, CRP, STROKE #### [facility] [address] [place] [address] [place] Floor Installer: Bowen Lemon MD Platelets (Bld) [#/Vol] 250 10*3/uL Normal 138-453 [facility] Comment on above: Performed By: #### S ED, CRP, STROKE #### [facility] [place] [address] [place] Floor Installer: Bowen Lemon MD RBC (Bld) [#/Vol] 4.10 10*6/uL Low 4.21-5.77 [facility] Comment on above: Performed By: #### S ED, CRP, STROKE #### [facility] [address] [place] [address] [place] Floor Installer: Bowen Lemon MD WBC (Bld) [#/Vol] 7.3 10*3/uL Normal 3.5-11.3 [facility] Comment on above: Performed By: #### S ED, CRP, STROKE #### [facility] [address] [place] [address] [place] Floor Installer: Bowen Lemon MD CBCOrdered By: Gee benoit on 05-01-2021 Hematocrit (Bld) [Volume fraction] 38.2 % Low 40.7 - 50.3 % [employer] Phone: Hemoglobin.gastrointest inal spec 1 Ql (Stl) 12.6 g/dL Low 13.0 - 17.0 g/dL [employer] Phone: Interpretation and review of laboratory results Abnormal [employer] Phone: MCH (RBC) [Entitic mass] 30.7 pg 25.2 - 33.5 pg [employer] Phone: MCHC (RBC) [Mass/Vol] 33.0 g/dL 28.4 - 34.8 g/dL [employer] Phone: MCV (RBC) [Entitic vol] 93.2 fL 82.6 - 102.9 fL [employer] Phone: NRBC Automated 0.0 0.0 per 100 WBC [employer] Phone: Platelet distribution width (Bld) [Ratio] 14.3 % 11.8 - 14.4 % [employer] Phone: Platelet mean volume (Bld) [Entitic vol] 10.9 fL 8.1 - 13.5 fL [employer] Phone: Platelets (Bld) [#/Vol] 250 10*3/uL [employer] Phone: RBC (Bld) [#/Vol] 4.10 10*6/uL Low 4.21 - 5.77 m/uL [employer] Phone: WBC (Bld) [#/Vol] 7.3 10*3/uL [employer] Phone: [employer] Phone: Cult,Bloodon 05-01-2021 Cult,Blood Specimen Description .BLOOD Special Requests R ARM 1 ML Culture NO GROWTH 6 DAYS Report Status FINAL 05/01/2021 [facility] Comment on above: Performed By: #### S ED, CRP, STROKE #### [employer] [address] [place] [address] [place] Floor Installer: Bowen Lemon MD Cult,Blood Specimen Description .BLOOD Special Requests L ARM 2 ML Culture NO GROWTH 6 DAYS Report Status FINAL 05/01/2021 [facility] Comment on above: Performed By: #### S ED, CRP, STROKE #### [facility] [address] [place] [address] [place] Floor Installer: Bowen Lemon MD Culture, Blood 1Ordered By: Jarek Osborn on 05-01-2021 Special Requests R ARM 1 ML [employer] Phone: Special Requests L ARM 2 ML [employer] Phone: Specimen Description .BLOOD [employer] Phone: [employer] Phone: Laboratory - Microbiology an d Antimicrobial susceptibilityOrdered By: Jarek Osborn on 05-01-2021 Bacteria identified Cx Nom (Unsp spec) NO GROWTH 6 DAYS [employer] Phone: POC Glucose FingerstickOrder ed By: Ning Wallace on 05-01-2021 Glucose [Mass/Vol] 207 mg/dL High 75 - 110 mg/dL [employer] Phone: Interpretation and review of laboratory results Abnormal [employer] Phone: [employer] Phone: Glucose [Mass/Vol] 204 mg/dL High 75 - 110 mg/dL [employer] Phone: Interpretation and review of laboratory results Abnormal [employer] Phone: [employer] Phone: Glucose [Mass/Vol] 170 mg/dL High 75 - 110 mg/dL [employer] Phone: Interpretation and review of laboratory results Abnormal [employer] Phone: [employer] Phone: APTTon 04-30-2021 aPTT Coag (Bld) [Time] 55.9 s High 20.5-30.5 [facility] Comment on above: Result Comment: IV Heparin Therapy Range: 48.6-77.8 Performed By: Joshua### S ED, CRP, STROKE #### [facility] [address] [place], [place] [phone] [place] Floor Installer: Bowen Lemon MD aPTT Coag (Bld) [Time] 71.1 s High 20.5-30.5 [facility] Comment on above: Result Comment: IV Heparin Therapy Range: 48.6-77.8 Performed By: #### S ED, CRP, STROKE #### [facility] [address] [place], [place] [phone] [place] Floor Installer: Bowen Lemon MD aPTT Coag (Bld) [Time] 59.1 s High 20.5-30.5 [facility] Comment on above: Result Comment: IV Heparin Therapy Range: 48.6-77.8 Performed By: #### S ED, CRP, STROKE #### [employer] [address] [place] [address] [id number] [place] Floor Installer: Bowen Lemon MD APTTOrdered By: Ning martines on 04-30-2021 aPTT Coag (Bld) [Time] 55.9 s High [facility] [employer] Phone: Comment on above: IV Heparin Therapy Range: 48.6-77.8 Interpretation and review of laboratory results Abnormal [facility]: [facility] Phone: APTTOrdered By: Gee kim on 04-30-2021 aPTT Coag (Bld) [Time] 71.1 s High [facility] [employer] Phone: Comment on above: IV Heparin Therapy Range: 48.6-77.8 Interpretation and review of laboratory results Abnormal [facility] Phone: [facility] Phone: aPTT Coag (Bld) [Time] 59.1 s High Me [facility] [employer] Phone: Comment on above: IV Heparin Therapy Range: 48.6-77.8 Interpretation and review of laboratory results Abnormal [facility] [employer] Phone: [employer] Phone: Basic Metab w/rfx MGon 04-30 (cont.) Normal [facility] Comment on above: Result Comment: Aver age GFR for 60-69 years old: 85 mL/min/1.73sq m Chronic Kidney Disease: <60 mL/min/1.73sq m Kidney failure: <15 mL/min/1.73sq m eGFR calculated using average adult body mass. Additional eGFR calculator available at: http://www.[employer]/multiple_crcl_2011.htm Performed By: #### S ED CRP, STROKE #### [facility] [employer] [address] [place] [address] [place] [employer] Installer: Bowen Lemon MD Anion gap [Moles/Vol] 12 mmol/L Normal 9-17 [facility] Comment on above: Performed By: #### S ED, CRP, STROKE #### [facility] [employer] [address] [place] [address] [place] [employer] Installer: Bowen Lemon MD Calcium [Mass/Vol] 9.2 mg/dL Normal 8.6-10.4 [facility] Comment on above: Performed By: #### S ED, CRP, STROKE #### [facility] [employer] [address] [place] [address] [place] [employer] Installer: Bowen Lemon MD Chloride [Moles/Vol] 103 mmol/L Normal 98-107 [facility] Comment on above: Performed By: #### S ED, CRP, STROKE #### [facility] [employer] [address] [place] [address] [place] [employer] Installer: Bowen Lemon MD CO2 [Moles/Vol] 19 mmol/L Low 20-31 [facility] Comment on above: Performed By: #### S ED, CRP, STROKE #### [facility] [address] [place] [address] [place] Floor Installer: Bowen Lemon MD Creatinine [Mass/Vol] 0.74 mg/dL Normal 0.70-1.20 [facility] Comment on above: Performed By: #### S ED, CRP, STROKE #### [facility] [address] [place] [address] [place] [employer] Installer: Bowen Lemon MD GFR, Amer >60 Normal >60 [facility] Comment on above: Performed By: #### S ED, CRP, STROKE #### [facility] [address] [place] [address] [place] [employer] Installer: Bowen Lemon MD GFR,non Amer >60 Normal >60 [facility] Comment on above: Performed By: #### S ED, CRP, STROKE #### [facility] [address] [place] [address] [place] [employer] Installer: Bowen Lemon MD Glucose [Mass/Vol] 180 mg/dL High 70-99 [facility] Comment on above: Performed By: #### S ED, CRP, STROKE #### [facility] [address] [place] [address] [place] [employer] Installer: Bowen Lemon MD Potassium [Moles/Vol] 4.0 mmol/L Normal 3.7-5.3 [facility] Comment on above: Performed By: #### S ED, CRP, STROKE #### [facility] [address] [place] [address] [place] [employer] Installer: Bowen Lemon MD Sodium [Moles/Vol] 134 mmol/L Low 135-144 [facility] Comment on above: Performed By: #### S ED, CRP, STROKE #### [facility] [address] [place] [address] [place] [employer] Installer: Bowen Lemon MD Urea nitrogen [Mass/Vol] 9 mg/dL Normal 8-23 [facility] Comment on above: Performed By: #### S ED, CRP, STROKE #### [facility] [address] [place], [place] [phone] [place] Floor Installer: Bowen Lemon MD BUN/CRE Ratio NOT REPORTED Normal 9-20 [facility] Comment on above: Performed By: #### S ED, CRP, STROKE #### [facility] [address] [place], [place] [phone] [place] Floor Installer: Bowen Lemon MD Staging: NOT REPORTED Normal [facility] Comment on above: Performed By: #### S ED, CRP, STROKE #### [facility] [address] [place], [place] [phone] [place] Floor Installer: Bowen Lemon MD Basic Metabolic Panel w/ Ref darlene to MGOrdered By: Jarek Osborn on 04-30-2021 Anion gap [Moles/Vol] 12 mmol/L 9 - 17 mmol/L [employer] Phone: Calcium [Mass/Vol] 9.2 mg/dL 8.6 - 10. 4 mg/dL [employer] Phone: Chloride [Moles/Vol] 103 mmol/L 98 - 10 7 mmol/L [employer] Phone: CO2 [Moles/Vol] 19 mmol/L Low 20 - 31 mmol/L [employer] Phone: Creatinine [Mass/Vol] 0.74 mg/dL 0.70 - 1.20 mg/dL [employer] Phone: GFR >60 >60 mL/min [employer] Phone: GFR Non- >60 >60 mL/min [employer] Phone: GFR/1.73 sq M.predicted MDRD (S/P/Bld) [Vol rate/Area] [employer] Phone: Comment on above: Average GFR for 60-6 9 years old: 85 mL/min/1.73sq m Chronic Kidney Disease: <60 mL/min/1.73sq m Kidney failure: <15 mL/min/1.73sq m eGFR calculated using average adult body mass. Additional eGFR calculator available at: http://www.[employer]/multiple_crcl_2012.htm GFR/1.73 sq M.predicted MDRD (S/P/Bld) [Vol rate/Area] NOT REPORTED [employer] Phone: Glucose [Mass/Vol] 180 mg/dL High 70 - 99 mg/dL [employer] Phone: Interpretation and review of laboratory results Abnormal [employer] Phone: Potassium [Moles/Vol] 4.0 mmol/L 3.7 - 5.3 mmol/L [employer] Phone: Sodium [Moles/Vol] 134 mmol/L Low 135 - 144 mmol/L ChoiceMap Phone: Urea nitrogen (BldV) [Mass/Vol] 9 mg/dL 8 - 23 mg/dL ChoiceMap Phone: Urea nitrogen/Creatinine (Bld) [Mass ratio] NOT REPORTED ChoiceMap Phone: ChoiceMap Phone: POC Glucose FingerstickOrder ed By: Ning Wallace on 04-30-2021 Glucose [Mass/Vol] 242 mg/dL High 75 - 110 mg/dL ChoiceMap Phone: Interpretation and review of laboratory results Abnormal ChoiceMap Phone: ChoiceMap Phone: Glucose [Mass/Vol] 220 mg/dL High 75 - 110 mg/dL [employer]Map Phone: Interpretation and review of laboratory results Abnormal ChoiceMap Phone: ChoiceMap Phone: Glucose [Mass/Vol] 189 mg/dL High 75 - 110 mg/dL ChoiceMap Phone: Interpretation and review of laboratory results Abnormal ChoiceMap Phone: ChoiceMap Phone: Glucose [Mass/Vol] 226 mg/dL High 75 - 110 mg/dL ChoiceMap Phone: Interpretation and review of laboratory results Abnormal ChoiceMap Phone: ChoiceMap Phone: APTTon 04-29-2021 aPTT Coag (Bld) [Time] 94.2 s Critically high 20.5-30. 5 [facility] Comment on above: Result Comment: IV Heparin Therapy Range: 48.6-77.8 Performed By: #### S ED, CRP, STROKE #### [employer] [address] [place] [address] [id number] [place] Floor Installer: Bowen Lemon MD aPTT Coag (Bld) [Time] 46.3 s High 20.5-30.5 [facility] Comment on above: Result Comment: IV Heparin Therapy Range: 48.6-77.8 Performed By: #### S ED, CRP, STROKE #### [facility] [address] [place], [place] [phone] [place] Floor Installer: Bowen Lemon MD aPTT Coag (Bld) [Time] 69.2 s High 20.5-30.5 [facility] Comment on above: Result Comment: IV Heparin Therapy Range: 48.6-77.8 Performed By: #### S ED, CRP, STROKE #### [employer] [address] [place] [address] [id number] [place] Floor Installer: Bowen Lemon MD aPTT Coag (Bld) [Time] 69.1 s High 20.5-30.5 [facility] Comment on above: Result Comment: IV Heparin Therapy Range: 48.6-77.8 Performed By: #### S ED, CRP, STROKE #### [facility] [address] [place] [address] [place] Floor Installer: Bowen Lemon MD aPTT Coag (Bld) [Time] 49.2 s High 20.5-30.5 [facility] Comment on above: Result Comment: IV Heparin Therapy Range: 48.6-77.8 Performed By: #### P TT ####[facility] [address] [place] [address] Lab Director: Bowen Lemon MD APTTOrdered By: Ning martines on 04-29-2021 aPTT Coag (Bld) [Time] 94.2 s Critically high ChoiceMap Phone: Comment on above: IV Heparin Therapy Range: 48.6-77.8 Interpretation and review of laboratory results Abnormal ChoiceMap Phone: ChoiceMap Phone: aPTT Coag (Bld) [Time] 46.3 s High Me [facility] [employer] Work Phone: Comment on above: IV Heparin Therapy Range: 48.6-77.8 Interpretation and review of laboratory results Abnormal ChoiceMap Phone: ChoiceMap Phone: aPTT Coag (Bld) [Time] 69.2 s High Me y [employer] Work Phone: Comment on above: IV Heparin Therapy Range: 48.6-77.8 Interpretation and review of laboratory results Abnormal ChoiceMap Phone: ChoiceMap Phone: aPTT Coag (Bld) [Time] 69.1 s High Me rcy [employer] Work Phone: Comment on above: IV Heparin Therapy Range: 48.6-77.8 Interpretation and review of laboratory results Abnormal [facility] [employer] Phone: [facility] [employer] Phone: Basic Metab w/rfx MGon 04-29 (cont.) Normal [facility] Comment on above: Result Comment: Aver age GFR for 60-69 years old: 85 mL/min/1.73sq m Chronic Kidney Disease: <60 mL/min/1.73sq m Kidney failure: <15 mL/min/1.73sq m eGFR calculated using average adult body mass. Additional eGFR calculator available at: http://www.[employer]/multiple_crcl_2012.htm Performed By: #### C RUSSELL, BMPX ####[id number] [place] [address] Lab Director: Bowen Lemon MD Anion gap [Moles/Vol] 10 mmol/L Normal 9-17 [facility] Comment on above: Performed By: #### C RUSSELL BMPX ####[facility] [address] [place] [address] Lab Director: Boewn Lemon MD Calcium [Mass/Vol] 8.9 mg/dL Normal 8.6-10.4 [facility] Comment on above: Performed By: #### C BC, BMPX ####[facility] [address]lfgdj[address] [place] [address] Lab Director: Bowen Lemon MD Chloride [Moles/Vol] 106 mmol/L Normal 98-107 [facility] Comment on above: Performed By: #### C BC, BMPX ####[facility] [address]uv[address] [place] [address] Lab Director: Bowen Lemon MD CO2 [Moles/Vol] 22 mmol/L Normal 20-31 [facility] Comment on above: Performed By: #### C BC, BMPX ####[facility] [address] [place], [place] [phone] Director: Bowen Lemon MD Creatinine [Mass/Vol] 0.72 mg/dL Normal 0.70-1.20 [facility] Comment on above: Performed By: #### C BC, BMPX ####[facility] [address] [place], [place] [phone] Director: Bowen Lemon MD GFR, Amer >60 Normal >60 [facility] Comment on above: Performed By: #### C BC, BMPX ####[facility] [address] [place], [place] [phone] Director: Bowen Lemon MD GFR,non Amer >60 Normal >60 [facility] Comment on above: Performed By: #### C BC, BMPX ####[facility] [address] [place], [place] [phone] Director: Bowen Lemon MD Glucose [Mass/Vol] 172 mg/dL High 70-99 [facility] Comment on above: Performed By: #### C BC, BMPX ####[facility] [address]ec[address]dpdc68[address] [place], [place] [phone] Director: Bowen Lemon MD Potassium [Moles/Vol] 3.9 mmol/L Normal 3.7-5.3 [facility] Comment on above: Performed By: #### C BC, BMPX ####[facility] [address] [place], [place] [phone] Director: Bowen Lemon MD Sodium [Moles/Vol] 138 mmol/L Normal 135-144 [facility] Comment on above: Performed By: #### C BC, BMPX ####[facility] [address] [place], [place] [phone] Director: Bowen Lemon MD Urea nitrogen [Mass/Vol] 11 mg/dL Normal 8-23 [facility] Comment on above: Performed By: #### C BC, BMPX ####[facility] [address]qvcedn[address] [place], [place] [id number] Lab Director: Bowen Lemon MD BUN/CRE Ratio NOT REPORTED Normal 9-20 [facility] Comment on above: Performed By: #### C BC, BMPX ####[facility] L[address]pfwnsvjd19[address] [place], [place] [id number] Lab Director: Bowen Lemon MD Staging: NOT REPORTED Normal [facility] Comment on above: Performed By: #### C BC, BMPX ####[facility] [address]kkfhr88[address] [place], [place] [phone] Lab Director: Bowen Lemon MD Basic Metabolic Panel w/ Ref darlene to MGOrdered By: Jarek Osborn on 04-29-2021 Anion gap [Moles/Vol] 10 mmol/L 9 - 17 mmol/L [employer] Phone: Calcium [Mass/Vol] 8.9 mg/dL 8.6 - 10. 4 mg/dL [employer] Phone: Chloride [Moles/Vol] 106 mmol/L 98 - 10 7 mmol/L [employer] Phone: CO2 [Moles/Vol] 22 mmol/L 20 - 31 mmol/L [employer] Phone: Creatinine [Mass/Vol] 0.72 mg/dL 0.70 - 1.20 mg/dL ChoiceMap Phone: GFR >60 >60 mL/min [employer] Phone: GFR Non- >60 >60 mL/min ChoiceMap Phone: GFR/1.73 sq M.predicted MDRD (S/P/Bld) [Vol rate/Area] ChoiceMap Phone: Comment on above: Average GFR for 60-6 9 years old: 85 mL/min/1.73sq m Chronic Kidney Disease: <60 mL/min/1.73sq m Kidney failure: <15 mL/min/1.73sq m eGFR calculated using average adult body mass. Additional eGFR calculator available at: http://www.[employer]/multiple_crcl_2012.htm GFR/1.73 sq M.predicted MDRD (S/P/Bld) [Vol rate/Area] NOT REPORTED [employer] Phone: Glucose [Mass/Vol] 172 mg/dL High 70 - 99 mg/dL [employer] Phone: Interpretation and review of laboratory results Abnormal [employer] Phone: Potassium [Moles/Vol] 3.9 mmol/L 3.7 - 5.3 mmol/L [employer] Phone: Sodium [Moles/Vol] 138 mmol/L 135 - 144 mmol/L [employer] Phone: Urea nitrogen (BldV) [Mass/Vol] 11 mg/dL 8 - 23 mg/dL [employer] Phone: Urea nitrogen/Creatinine (Bld) [Mass ratio] NOT REPORTED ChoiceMap Phone: ChoiceMap Phone: CBCon 04-29-2021 Erythrocyte distribution width (RBC) [Ratio] 14.1 % Normal 11.8-14.4 [facility] Comment on above: Performed By: #### C DARYN WELLS ####[employer] [place] [address] lab Director: Bowen Lemon MD Hematocrit (Bld) [Volume fraction] 37.7 % Low 40.7-50.3 [facility] Comment on above: Performed By: #### C DARYN WELLS ####[facility] [address] [place] [address] Lab Director: Bowen Lemon MD Hemoglobin (Bld) [Mass/Vol] 12.4 g/dL Low 13.0-17.0 [facility] Comment on above: Performed By: #### C BC, BMPX ####[facility] [address] [place] [address] [phone] Director: Bowen Lemon MD MCH (RBC) [Entitic mass] 30.2 pg Normal 25.2-33.5 [facility] Comment on above: Performed By: #### C BC, BMPX ####[facility] [address] [place] [address] lab Director: Bowen Lemon MD MCHC (RBC) [Mass/Vol] 32.9 g/dL Normal 28.4-34.8 [facility] Comment on above: Performed By: #### C BC, BMPX ####[facility] [address] [place] [address] Lab Director: Bowen Lemon MD MCV (RBC) [Entitic vol] 92.0 fL Normal 82.6-102.9 [facility] Comment on above: Performed By: #### C BC, BMPX ####[facility] [address] [place] [address] Lab Director: Bowen Lemon MD NRBC Automated 0.0 per 100 WBC Normal 0.0 [facility] Comment on above: Performed By: #### C BC, BMPX ####[facility] [address] [place] [address] Lab Director: Bowen Lemon MD Platelet mean volume (Bld) [Entitic vol] 10.8 fL Normal 8.1-13.5 [facility] Comment on above: Performed By: #### C BC, BMPX ####[facility] [address] [place] [address] Lab Director: Bowen Lemon MD Platelets (Bld) [#/Vol] 202 10*3/uL Normal 138-453 [facility] Comment on above: Performed By: #### C BC, BMPX ####[facility] [address] [place] [address] Lab Director: Bowen Lemon MD RBC (Bld) [#/Vol] 4.10 10*6/uL Low 4.21-5.77 [facility] Comment on above: Performed By: #### C BC, BMPX ####[facility] [address] [place] [address] Lab Director: Bowen Lemon MD WBC (Bld) [#/Vol] 7.5 10*3/uL Normal 3.5-11.3 [facility] Comment on above: Performed By: #### C BC, BMPX ####[facility] [address] [place] [address] Lab Director: Bowen Lemon MD CBCOrdered By: Gee benoit on 04-29-2021 Hematocrit (Bld) [Volume fraction] 37.7 % Low 40.7 - 50.3 % ChoiceMap Phone: Hemoglobin.gastrointest inal spec 1 Ql (Stl) 12.4 g/dL Low 13.0 - 17.0 g/dL [employer] Phone: Interpretation and review of laboratory results Abnormal [employer] Phone: MCH (RBC) [Entitic mass] 30.2 pg 25.2 - 33.5 pg [employer] Phone: MCHC (RBC) [Mass/Vol] 32.9 g/dL 28.4 - 34.8 g/dL [employer] Phone: MCV (RBC) [Entitic vol] 92.0 fL 82.6 - 102.9 fL [employer] Phone: NRBC Automated 0.0 0.0 per 100 WBC [employer]Map Phone: Platelet distribution width (Bld) [Ratio] 14.1 % 11.8 - 14.4 % [employer] Phone: Platelet mean volume (Bld) [Entitic vol] 10.8 fL 8.1 - 13.5 fL [employer] Phone: Platelets (Bld) [#/Vol] 202 10*3/uL [employer] Phone: RBC (Bld) [#/Vol] 4.10 10*6/uL Low 4.21 - 5.77 m/uL [employer] Phone: WBC (Bld) [#/Vol] 7.5 10*3/uL [employer]Map Phone: ChoiceMap Phone: POC Glucose FingerstickOrder ed By: Ning Wallace on 04-29-2021 Glucose [Mass/Vol] 232 mg/dL High 75 - 110 mg/dL [employer] Phone: Interpretation and review of laboratory results Abnormal [facility]Map Phone: [employer]Map Phone: Glucose [Mass/Vol] 200 mg/dL High 75 - 110 mg/dL [employer] Phone: Interpretation and review of laboratory results Abnormal [employer]Map Phone: [employer]Map Phone: Glucose [Mass/Vol] 186 mg/dL High 75 - 110 mg/dL [employer] Phone: Interpretation and review of laboratory results Abnormal [employer]Map Phone: [employer]Map Phone: Glucose [Mass/Vol] 163 mg/dL High 75 - 110 mg/dL [employer] Phone: Interpretation and review of laboratory results Abnormal [employer] Phone: ChoiceMap Phone: APTTOrdered By: Ning martines on 04-28-2021 aPTT Coag (Bld) [Time] 49.2 s High Me [employer] Phone: Comment on above: IV Heparin Therapy Range: 48.6-77.8 Interpretation and review of laboratory results Abnormal ChoiceMap Phone: ChoiceMap Phone: aPTT Coag (Bld) [Time] 71.6 s High [facility]: Comment on above: IV Heparin Therapy Range: 48.6-77.8 Interpretation and review of laboratory results Abnormal ChoiceMap Phone: ChoiceMap Phone: aPTT Coag (Bld) [Time] 37.7 s High [facility] Phone: Comment on above: IV Heparin Therapy Range: 48.6-77.8 Interpretation and review of laboratory results Abnormal ChoiceMap Phone: ChoiceMap Phone: aPTT Coag (Bld) [Time] 42.9 s High [facility] Phone: Comment on above: IV Heparin Therapy Range: 48.6-77.8 Interpretation and review of laboratory results Abnormal [facility]Map Phone: ChoiceMap Phone: APTTon 04-28-2021 aPTT Coag (Bld) [Time] 71.6 s High 20.5-30.5 [facility] Comment on above: Result Comment: IV Heparin Therapy Range: 48.6-77.8 Performed By: #### P TT ####[address] [address] lab Director: Bowen Lemon MD aPTT Coag (Bld) [Time] 37.7 s High 20.5-30.5 [facility] Comment on above: Result Comment: IV Heparin Therapy Range: 48.6-77.8 Performed By: #### P TT ####[address] [address])[phone] Director: Bowen Lemon MD aPTT Coag (Bld) [Time] 42.9 s High 20.5-30.5 [facility] Comment on above: Result Comment: IV Heparin Therapy Range: 48.6-77.8 Performed By: #### P TT ####[address] [address])[phone] Director: Bowen Lemon MD Basic Metab w/rfx MGon 04-28 (cont.) Normal [facility] Comment on above: Result Comment: Aver age GFR for 60-69 years old: 85 mL/min/1.73sq m Chronic Kidney Disease: <60 mL/min/1.73sq m Kidney failure: <15 mL/min/1.73sq m eGFR calculated using average adult body mass. Additional eGFR calculator available at: http://www.[employer]/multiple_crcl_2012.htm Performed By: #### B MPX, MG ####[address] [address] Lab Director: Bowen Lemon MD Anion gap [Moles/Vol] 11 mmol/L Normal 9-17 [facility] Comment on above: Performed By: #### B MPX, MG ####[address] [address] Lab Director: Bowen Lemon MD Calcium [Mass/Vol] 9.0 mg/dL Normal 8.6-10.4 [facility] Comment on above: Performed By: #### B MPX, MG ####[facility] [address] [place] [address] Lab Director: Bowen Lemon MD Chloride [Moles/Vol] 104 mmol/L Normal 98-107 [facility] Comment on above: Performed By: #### B MPX, MG ####[facility] [address] [place] [address] Lab Director: Bowen Lemon MD CO2 [Moles/Vol] 21 mmol/L Normal 20-31 [facility] Comment on above: Performed By: #### B MPX, MG ####[facility] [address]qzhp[address] [place] [address] Lab Director: Bowen Lemon MD Creatinine [Mass/Vol] 0.77 mg/dL Normal 0.70-1.20 [facility] Comment on above: Performed By: #### B MPX, MG ####[facility] [address] [place] [address] Lab Director: Bowen Lemon MD GFR, Amer >60 Normal >60 [facility] Comment on above: Performed By: #### B MPX, MG ####[facility] [address] [place] [address] Lab Director: Bowen Lemon MD GFR,non Amer >60 Normal >60 [facility] Comment on above: Performed By: #### B MPX, MG ####[facility] [address] [place] [address] Lab Director: Bowen Lemon MD Glucose [Mass/Vol] 250 mg/dL High 70-99 [facility] Comment on above: Performed By: #### B MPX, MG ####[facility] [address] [place] [address] Lab Director: Bowen Lemon MD Potassium [Moles/Vol] 3.7 mmol/L Normal 3.7-5.3 [facility] Comment on above: Performed By: #### B MPX, MG ####[facility] [address] [place] [address] Lab Director: Bowen Lemon MD Sodium [Moles/Vol] 136 mmol/L Normal 135-144 [facility] Comment on above: Performed By: #### B MPX, MG ####[facility] [address] [place] [address] Lab Director: Bowen Lemon MD Urea nitrogen [Mass/Vol] 10 mg/dL Normal 8-23 [facility] Comment on above: Performed By: #### B MPX, MG ####[facility] [address]emv[address] [place] [address] Lab Director: Bowen Lemon MD BUN/CRE Ratio NOT REPORTED Normal 9- [facility] Comment on above: Performed By: #### B MPX, MG ####[facility] [address] [place], [place] [phone] Director: Bowen Lemon MD Staging: NOT REPORTED Normal [facility] Comment on above: Performed By: #### B MPX, MG ####[facility] [address] [place] [address] Lab Director: Bowen Lemon MD Basic Metabolic Panel w/ Ref darlene to MGOrdered By: Jarek Osborn on 04-28-2021 Anion gap [Moles/Vol] 11 mmol/L 9 - 17 mmol/L [facility] [employer] Phone: Calcium [Mass/Vol] 9.0 mg/dL 8.6 - 10. 4 mg/dL [facility] [employer] Phone: Chloride [Moles/Vol] 104 mmol/L 98 - 10 7 mmol/L [employer] Phone: CO2 [Moles/Vol] 21 mmol/L 20 - 31 mmol/L [employer] Phone: Creatinine [Mass/Vol] 0.77 mg/dL 0.70 - 1.20 mg/dL [employer] Phone: GFR >60 >60 mL/min [employer] Phone: GFR Non- >60 >60 mL/min [employer] Phone: GFR/1.73 sq M.predicted MDRD (S/P/Bld) [Vol rate/Area] [employer] Phone: Comment on above: Average GFR for 60-6 9 years old: 85 mL/min/1.73sq m Chronic Kidney Disease: <60 mL/min/1.73sq m Kidney failure: <15 mL/min/1.73sq m eGFR calculated using average adult body mass. Additional eGFR calculator available at: http://www.[employer]/multiple_crcl_2012.htm GFR/1.73 sq M.predicted MDRD (S/P/Bld) [Vol rate/Area] NOT REPORTED [employer] Phone: Glucose [Mass/Vol] 250 mg/dL High 70 - 99 mg/dL [employer] Phone: Interpretation and review of laboratory results Abnormal [employer] Phone: Potassium [Moles/Vol] 3.7 mmol/L 3.7 - 5.3 mmol/L [employer] Phone: Sodium [Moles/Vol] 136 mmol/L 135 - 144 mmol/L [employer] Phone: Urea nitrogen (BldV) [Mass/Vol] 10 mg/dL 8 - 23 mg/dL [employer] Phone: Urea nitrogen/Creatinine (Bld) [Mass ratio] NOT REPORTED [employer] Phone: [employer] Phone: Catheterization and angiogra phy procedure details panelOrdered By: Andreas Shepherd on 04-28-2021 Cardiac Diagnostic R eport Demographics Patient REHAN Bryant Date of Study 04/28/2021 Name Date of 1955 Gender Male Age 65 year(s) Race Room [id number]^DANIELLE^ANDREAS Height: 72 inch, 182.88 cm Number Corporate [id number] Weight: 223 pounds, 101.2 ID # kg Patient [id number] BSA: 2.23 m^2 BMI: 30.24 Acct # kg/m^2 MR # [id number] Performing Pj Becerril Physician Referring # Physician [...] Left coronary angiography. Contrast Material: - Isovue 13657 ml Fluoroscopy Time: Diagnostic: 7:54 minutes. Total: [...] assessed as CCS III according to the [place] clinical classification. Hemodynamics Condition: Baseline Room Air Estimated: 265.46Heart Rate: 76 bpm Pressure +-----+ + !Site !Pressure ! +-----+ + !AO !124/74 (94) ! +-----+ + !AO !122/69 (91) ! +-----+ + !LV !104/2 ,7 ! +-----+ + !LV !138/0 ,8 ! +-----+ + Valve Gradients and Areas + +---------+--- -- (more content not included)... [employer] Work Phone: Adam, Mhpn Incoming C ardio Results From [facility] - 04/28/2021 10:30 AM EDT Cardiac Diagnostic Report Demographics Patient REHAN Bryant Date of Study 04/28/2021 Name Date of 1955 Gender Male Age 65 year(s) Race Room [id number]^DANIELLE^ANDREAS Height: 72 inch, 182.88 cm Number Corporate [id number] Weight: 223 pounds, 101.2 ID # kg Patient [id number] BSA: 2.23 m^2 BMI: 30.24 Acct # kg/m^2 MR # [id number] Performing Pj Becerril Physician Referring # Physician [...] Left coronary angiography. Contrast Material: - Isovue 75747 ml Fluoroscopy Time: Diagnostic: 7:54 minutes. Total: [...] assessed as CCS III according to the [place] clinical classification. Hemodynamics Condition: Baseline Room Air [...] ------+---------+--------- -+---------+ + Shunts Oxygen Values O2 Dwiezpgz016.44O2 Vounwqtnoox590.46 [employer] Phone: [employer] Phone: Catheterization and angiogra phy procedure details panelOrdered By: Unknown Result on 04-28-2021 [employer] Phone: ECHO Complete 2D W Doppler W ColorOrdered By: Babak Mancuso on 04-28-2021 Transthoracic Echocardiography Report (TTE) Patient Name ICKES Date of Study 04/28/2021 YOEL Bryant Date of 1955 Gender Male Age 65 year(s) Race Room Number 1015 Height: 72 inch, 182.88 cm Corporate ID [id number] Weight: 223 pounds, 101.2 kg # Patient Acct [id number] BSA: 2.23 m^2 BMI: 30.24 # kg/m^2 MR # [id number] Risk Manager [facility]a [place] Interpreting Physician Marcello Cole Fellow Referring Nurse Practitioner Interpreting Referring Physician Babak Mancuso Fellow Type of Study TTE procedure:2D Echocardiogram, M-Mode, Doppler, Color Doppler, Bubble Study. Procedure Date Date: 04/28/2021 Start: 09:19 AM Study Location: [facility] Technical Quality: Fair visualization Indications:Stroke, Non-STEMI and [...] m/s Tricuspid: Pulmonic: (more content not included)... [employer] Work Phone: Adam, Mhpn Incoming C ardio Results From [facility]/Ge - 04/28/2021 2:48 PM EDT Transthoracic Echocardiography Report (TTE) Patient Name ICKES Date of Study 04/28/2021 YOEL Bryant Date of 1955 Gender Male Age 65 year(s) Race Room Number 1015 Height: 72 inch, 182.88 cm Corporate ID [id number] Weight: 223 pounds, 101.2 kg # Patient Acct [id number] BSA: 2.23 m^2 BMI: 30.24 # kg/m^2 MR # [id number] Risk Manager TreSmitha Interpreting Physician Marcello Cole Fellow Referring Nurse Practitioner Interpreting Referring Physician Babak Mancuso Fellow Type of Study TTE procedure:2D Echocardiogram, M-Mode, Doppler, Color Doppler, Bubble Study. Procedure Date Date: 04/28/2021 Start: 09:19 AM Study Location: [facility] Technical Quality: Fair visualization Indications:Stroke, Non-STEMI and [...] Wall E' velocity:0.07 m/s Lateral Wall E/E':10.8 [employer] Phone: [employer] Phone: Magnesiumon 04-28-2021 Magnesium [Mass/Vol] 1.5 mg/dL Low 1.6-2.6 [facility] Comment on above: Performed By: #### B MPX, MG ####[facility] [address] [place] [address] lab Director: Bowen Lemon MD MagnesiumOrdered By: Jarek Osborn on 04-28-2021 Interpretation and review of laboratory results Abnormal [employer] Phone: Magnesium [Mass/Vol] 1.5 mg/dL Low 1.6 - 2 .6 mg/dL [employer] Phone: [employer] Phone: POC Glucose FingerstickOrder ed By: Ning Wallace on 04-28-2021 Glucose [Mass/Vol] 182 mg/dL High 75 - 110 mg/dL [employer] Phone: Interpretation and review of laboratory results Abnormal [employer] Phone: [employer] Phone: Glucose [Mass/Vol] 202 mg/dL High 75 - 110 mg/dL [employer] Phone: Interpretation and review of laboratory results Abnormal [employer] Phone: [employer] Phone: Glucose [Mass/Vol] 190 mg/dL High 75 - 110 mg/dL [employer] Phone: Interpretation and review of laboratory results Abnormal [employer] Phone: [employer] Phone: Glucose [Mass/Vol] 198 mg/dL High 75 - 110 mg/dL [employer] Phone: Interpretation and review of laboratory results Abnormal [employer] Phone: [employer] Phone: APTTon 04-27-2021 aPTT Coag (Bld) [Time] 55.7 s High 20.5-30.5 [facility] Comment on above: Result Comment: IV Heparin Therapy Range: 48.6-77.8 Performed By: #### P TT ####[address] [address] Lab Director: Bowen Lemon MD aPTT Coag (Bld) [Time] 71.0 s High 20.5-30.5 [facility] Comment on above: Result Comment: IV Heparin Therapy Range: 48.6-77.8 Performed By: #### P TT ####[address] [address] Lab Director: Bowen Lemon MD aPTT Coag (Bld) [Time] 68.8 s High 20.5-30.5 [facility] Comment on above: Result Comment: IV Heparin Therapy Range: 48.6-77.8 Performed By: #### P TT ####[address] [address] Lab Director: Bowen Lemon MD aPTT Coag (Bld) [Time] 73.8 s High 20.5-30.5 [facility] Comment on above: Result Comment: IV Heparin Therapy Range: 48.6-77.8 Performed By: #### P TT ####[address] [address] Lab Director: Bowen Lemon MD aPTT Coag (Bld) [Time] 64.8 s High 20.5-30.5 [facility] Comment on above: Result Comment: IV Heparin Therapy Range: 48.6-77.8 Performed By: #### P TT ####[facility] Xvxktgpvfvgt9816 [place] [address] lab Director: Bowen Lemon MD APTTOrdered By: Ning martines on 04-27-2021 aPTT Coag (Bld) [Time] 55.7 s High Me [facility] Work Phone: Comment on above: IV Heparin Therapy Range: 48.6-77.8 Interpretation and review of laboratory results Abnormal [employer] Phone: [employer] Phone: aPTT Coag (Bld) [Time] 71.0 s High Me [employer] Phone: Comment on above: IV Heparin Therapy Range: 48.6-77.8 Interpretation and review of laboratory results Abnormal [employer] Phone: [employer] Phone: aPTT Coag (Bld) [Time] 68.8 s High Me [employer] Phone: Comment on above: IV Heparin Therapy Range: 48.6-77.8 Interpretation and review of laboratory results Abnormal [employer] Phone: [employer] Phone: aPTT Coag (Bld) [Time] 73.8 s High [facility]: Comment on above: IV Heparin Therapy Range: 48.6-77.8 Interpretation and review of laboratory results Abnormal [employer] Phone: [employer] Phone: APTTOrdered By: Gee kim on 04-27-2021 aPTT Coag (Bld) [Time] 64.8 s High [facility] [employer] Work Phone: Comment on above: IV Heparin Therapy Range: 48.6-77.8 Interpretation and review of laboratory results Abnormal [facility] [employer] Phone: [facility] [employer] Phone: Basic Metab w/rfx MGon 04-27 (cont.) Normal [facility] Comment on above: Result Comment: Aver age GFR for 60-69 years old: 85 mL/min/1.73sq m Chronic Kidney Disease: <60 mL/min/1.73sq m Kidney failure: <15 mL/min/1.73sq m eGFR calculated using average adult body mass. Additional eGFR calculator available at: http://www.[employer]/multiple_crcl_2012.htm Performed By: #### C BC, BMPX, MG ####[facility] [address]ntwgsdzos[address] [place] [address] Lab Director: Bowen Lemon MD Anion gap [Moles/Vol] 11 mmol/L Normal 9-17 [facility] Comment on above: Performed By: #### C BC, BMPX, MG ####[facility] Rfrwllmpijjl45[address] [place] [address] Lab Director: Bowen Lemon MD Calcium [Mass/Vol] 8.9 mg/dL Normal 8.6-10.4 [facility] Comment on above: Performed By: #### C BC, BMPX, MG ####[facility] Imdmltwdzyug2171 [place] [address] Lab Director: Bowen Lemon MD Chloride [Moles/Vol] 103 mmol/L Normal 98-107 [facility] Comment on above: Performed By: #### C BC, BMPX, MG ####[facility] Taek[address]fumuhl8764 [place] [address] Lab Director: Bowen Lemon MD CO2 [Moles/Vol] 22 mmol/L Normal 20-31 [facility] Comment on above: Performed By: #### C BC, BMPX, MG ####[facility] Duclygzxdvdf2766 [place], [place] [phone] Director: Bowen Lemon MD Creatinine [Mass/Vol] 0.80 mg/dL Normal 0.70-1.20 [facility] Comment on above: Performed By: #### C BC, BMPX, MG ####[facility] [address]wwk9812 [place], [place] [phone] Director: Bowen Lemon MD GFR, Amer >60 Normal >60 [facility] Comment on above: Performed By: #### C BC, BMPX, MG ####[facility] Q[address]zq65[address] [place] [address] Lab Director: Bowen Lemon MD GFR,non Amer >60 Normal >60 [facility] Comment on above: Performed By: #### C BC, BMPX, MG ####[facility] Csprg[address]yebvn5842 [place], [place] [phone] Director: Bowen Lemon MD Glucose [Mass/Vol] 189 mg/dL High 70-99 [facility] Comment on above: Performed By: #### C BC, BMPX, MG ####[facility] Nbcbhnuwkygm1502 [place] [address] Lab Director: Bowen Lemon MD Potassium [Moles/Vol] 3.5 mmol/L Low 3.7-5.3 [facility] Comment on above: Performed By: #### C BC, BMPX, MG ####[facility] Btybwojhfqqn8633 [place], [place] [phone] Director: Bowen Lemon MD Sodium [Moles/Vol] 136 mmol/L Normal 135-144 [facility] Comment on above: Performed By: #### C BC, BMPX, MG ####[facility] Oknj[address]kz4634 [place] [address] Lab Director: Bowen Lemon MD Urea nitrogen [Mass/Vol] 11 mg/dL Normal - [facility] Comment on above: Performed By: #### C BC, BMPX, MG ####[facility] J[address]yfpa2854 [place] [address] Lab Director: Bowen Lemon MD BUN/CRE Ratio NOT REPORTED Normal - [facility] Comment on above: Performed By: #### C BC, BMPX, MG ####[facility] Ttyszshmlpep2560 [place] [address] lab Director: Bowen Lemon MD Staging: NOT REPORTED Normal [facility] Comment on above: Performed By: #### C BC, BMPX, MG ####[facility] Nhmssrcsrmqt2432 [place] [address] lab Director: Bowen Lemon MD Basic Metabolic PanelOrdered By: Andreas Shepherd on 04-27-2021 Anion gap [Moles/Vol] 13 mmol/L 9 - 17 mmol/L [employer] Phone: Calcium [Mass/Vol] 9.2 mg/dL 8.6 - 10. 4 mg/dL [employer] Phone: Chloride [Moles/Vol] 104 mmol/L 98 - 10 7 mmol/L [employer] Phone: CO2 [Moles/Vol] 20 mmol/L 20 - 31 mmol/L [employer] Phone: Creatinine [Mass/Vol] 0.71 mg/dL 0.70 - 1.20 mg/dL [employer] Phone: GFR >60 >60 mL/min [employer] Phone: GFR Non- >60 >60 mL/min [employer] Phone: GFR/1.73 sq M.predicted MDRD (S/P/Bld) [Vol rate/Area] [employer] Phone: Comment on above: Average GFR for 60-6 9 years old: 85 mL/min/1.73sq m Chronic Kidney Disease: <60 mL/min/1.73sq m Kidney failure: <15 mL/min/1.73sq m eGFR calculated using average adult body mass. Additional eGFR calculator available at: http://www.[employer]/multiple_crcl_2012.htm GFR/1.73 sq M.predicted MDRD (S/P/Bld) [Vol rate/Area] NOT REPORTED [employer] Phone: Glucose [Mass/Vol] 280 mg/dL High 70 - 99 mg/dL [employer] Phone: Interpretation and review of laboratory results Abnormal [employer] Phone: Potassium [Moles/Vol] 3.9 mmol/L 3.7 - 5.3 mmol/L [employer] Phone: Sodium [Moles/Vol] 137 mmol/L 135 - 144 mmol/L [employer] Phone: Urea nitrogen (BldV) [Mass/Vol] 11 mg/dL 8 - 23 mg/dL [employer] Phone: Urea nitrogen/Creatinine (Bld) [Mass ratio] NOT REPORTED [employer] Phone: Basic Metabolic Panel w/ Ref darlene to MGOrdered By: Jarek Osborn on 04-27-2021 Anion gap [Moles/Vol] 11 mmol/L 9 - 17 mmol/L [employer] Phone: Calcium [Mass/Vol] 8.9 mg/dL 8.6 - 10. 4 mg/dL [employer] Phone: Chloride [Moles/Vol] 103 mmol/L 98 - 10 7 mmol/L [employer] Phone: CO2 [Moles/Vol] 22 mmol/L 20 - 31 mmol/L [employer] Phone: Creatinine [Mass/Vol] 0.8 mg/dL 0.70 - 1.20 mg/dL [employer] Phone: GFR >60 >60 mL/min [employer] Phone: GFR Non- >60 >60 mL/min [employer] Phone: GFR/1.73 sq M.predicted MDRD (S/P/Bld) [Vol rate/Area] [employer] Phone: Comment on above: Average GFR for 60-6 9 years old: 85 mL/min/1.73sq m Chronic Kidney Disease: <60 mL/min/1.73sq m Kidney failure: <15 mL/min/1.73sq m eGFR calculated using average adult body mass. Additional eGFR calculator available at: http://www.[employer]/multiple_crcl_2012.htm GFR/1.73 sq M.predicted MDRD (S/P/Bld) [Vol rate/Area] NOT REPORTED [employer] Phone: Glucose [Mass/Vol] 189 mg/dL High 70 - 99 mg/dL [employer] Phone: Interpretation and review of laboratory results Abnormal [employer] Phone: Potassium [Moles/Vol] 3.5 mmol/L Low 3.7 - 5.3 mmol/L [employer] Phone: Sodium [Moles/Vol] 136 mmol/L 135 - 144 mmol/L [employer] Phone: Urea nitrogen (BldV) [Mass/Vol] 11 mg/dL 8 - 23 mg/dL [employer] Phone: Urea nitrogen/Creatinine (Bld) [Mass ratio] NOT REPORTED [facility] Work Phone: [facility] [employer] Work Phone: Basic Metabolic Profon 04-27 (cont.) Normal [facility] Comment on above: Result Comment: Aver age GFR for 60-69 years old: 85 mL/min/1.73sq m Chronic Kidney Disease: <60 mL/min/1.73sq m Kidney failure: <15 mL/min/1.73sq m eGFR calculated using average adult body mass. Additional eGFR calculator available at: http://www.[employer]/multiple_crcl_2011.htm Performed By: #### B ALBINO, MG ####[facility] Iz[address] [place] [address] Lab Director: Shreyas Crain DO Anion gap [Moles/Vol] 13 mmol/L Normal 9-17 [facility] Comment on above: Performed By: #### B ALBINO, MG ####[facility] Ejw[address] [facility] [place] [address] Lab Director: Shreyas Crain DO Calcium [Mass/Vol] 9.2 mg/dL Normal 8.6-10.4 [facility] Comment on above: Performed By: #### B ALBINO, MG ####[facility] Uim[address]185 [facility] [place] [address] Lab Director: Shreyas Crain, DO Chloride [Moles/Vol] 104 mmol/L Normal 98-107 [facility] Comment on above: Performed By: #### B ALBINO, MG ####[facility] Wmi1517 [place] [address] Lab Director: Shreyas Crain DO CO2 [Moles/Vol] 20 mmol/L Normal 20-31 [facility] Comment on above: Performed By: #### B MP, MG ####[facility] [address] [place] [address] Lab Director: Shreyas Crain DO Creatinine [Mass/Vol] 0.71 mg/dL Normal 0.70-1.20 [facility] Comment on above: Performed By: #### B MP, MG ####[facility] [address] [place] [address] Lab Director: Shreyas Crain, DO GFR, Amer >60 Normal >60 [facility] Comment on above: Performed By: #### B MP, MG ####[facility] [address] [place] [address] Lab Director: Shreyas Crain DO GFR,non Amer >60 Normal >60 [facility] Comment on above: Performed By: #### B MP, MG ####[facility] [address] [place] [address] Lab Director: Shreyas Crain DO Glucose [Mass/Vol] 280 mg/dL High 70-99 [facility] Comment on above: Performed By: #### B ALBINO, MG ####[facility] [address] [place] [address] Lab Director: Shreyas Crain DO Potassium [Moles/Vol] 3.9 mmol/L Normal 3.7-5.3 [facility] Comment on above: Performed By: #### B MP, MG ####[facility] [address] [place] [address] Lab Director: Shreyas Crain DO Sodium [Moles/Vol] 137 mmol/L Normal 135-144 [facility] Comment on above: Performed By: #### B MP, MG ####[facility] Hth1089 [facility] [place] [phone] Director: Shreyas Crain DO Urea nitrogen [Mass/Vol] 11 mg/dL Normal 8-23 [facility] Comment on above: Performed By: #### B MP, MG ####[facility] Taj[address] [facility], [place] [phone] Director: Shreyas Crain DO BUN/CRE Ratio NOT REPORTED Normal 9- [facility] Comment on above: Performed By: #### B MP, MG ####[facility] Cmc[address]65 [facility], [place] [phone] Director: Shreyas Crain DO Staging: NOT REPORTED Normal [facility] Comment on above: Performed By: #### B MP, MG ####[facility] [address] [facility], [place] [phone] Director: Shreyas Crain DO CBCon 04-27-2021 Erythrocyte distribution width (RBC) [Ratio] 13.9 % Normal 11.8-14.4 [facility] Comment on above: Performed By: #### C BC, BMPX, MG ####[facility] [address]zehrgp85[address] [place] [address] Lab Director: Bowen Lemon MD Hematocrit (Bld) [Volume fraction] 38.2 % Low 40.7-50.3 [facility] Comment on above: Performed By: #### C BC, BMPX, MG ####[facility] [address]kn[address] [place] [address] Lab Director: Bowen Lemon MD Hemoglobin (Bld) [Mass/Vol] 12.9 g/dL Low 13.0-17.0 [facility] Comment on above: Performed By: #### C BC, BMPX, MG ####[facility] [address]qb2952 [place] [address] Lab Director: Bowen Lemon MD MCH (RBC) [Entitic mass] 30.6 pg Normal 25.2-33.5 [facility] Comment on above: Performed By: #### C BC, BMPX, MG ####[facility] [address] [place], [place] [phone] Director: Bowen Lemon MD MCHC (RBC) [Mass/Vol] 33.8 g/dL Normal 28.4-34.8 [facility] Comment on above: Performed By: #### C BC, BMPX, MG ####[facility] [address]hu[address] [place], [place] [phone] Director: Bowen Lemon MD MCV (RBC) [Entitic vol] 90.5 fL Normal 82.6-102.9 [facility] Comment on above: Performed By: #### C BC, BMPX, MG ####[facility] [address] [place], [place] [phone] Director: Bowen Lemon MD NRBC Automated 0.0 per 100 WBC Normal 0.0 [facility] Comment on above: Performed By: #### C BC, BMPX, MG ####[facility] [address]fnwkb2494 [place], [place] [phone] Director: Bowen Lemon MD Platelet mean volume (Bld) [Entitic vol] 10.3 fL Normal 8.1-13.5 [facility] Comment on above: Performed By: #### C BC, BMPX, MG ####[facility] [address]qqltd[address]jaw4879 [place], [place] [phone] Director: Bowen Lemon MD Platelets (Bld) [#/Vol] 223 10*3/uL Normal 138-453 [facility] Comment on above: Performed By: #### C BC, BMPX, MG ####[facility] [address]jdtul1539 [place], [place] 6441808 lab Director: Bowen Lemon MD RBC (Bld) [#/Vol] 4.22 10*6/uL Normal 4.21-5.77 [facility] Comment on above: Performed By: #### C BC, BMPX, MG ####[facility] [address] [place], [place] 7309508 lab Director: Bowen Lemon MD WBC (Bld) [#/Vol] 7.9 10*3/uL Normal 3.5-11.3 [facility] Comment on above: Performed By: #### C BC, BMPX, MG ####[facility] [address] [place], [place] [id number] lab Director: oBwen Lemon MD CBCOrdered By: Gee benoit on 04-27-2021 Hematocrit (Bld) [Volume fraction] 38.2 % Low 40.7 - 50.3 % [employer] Phone: Hemoglobin.gastrointest inal spec 1 Ql (Stl) 12.9 g/dL Low 13.0 - 17.0 g/dL [employer] Phone: Interpretation and review of laboratory results Abnormal [employer] Phone: MCH (RBC) [Entitic mass] 30.6 pg 25.2 - 33.5 pg [employer] Phone: MCHC (RBC) [Mass/Vol] 33.8 g/dL 28.4 - 34.8 g/dL [employer] Phone: MCV (RBC) [Entitic vol] 90.5 fL 82.6 - 102.9 fL [employer] Phone: NRBC Automated 0.0 0.0 per 100 WBC [employer] Phone: Platelet distribution width (Bld) [Ratio] 13.9 % 11.8 - 14.4 % [employer] Phone: Platelet mean volume (Bld) [Entitic vol] 10.3 fL 8.1 - 13.5 fL [employer] Phone: Platelets (Bld) [#/Vol] 223 10*3/uL [employer] Phone: RBC (Bld) [#/Vol] 4.22 10*6/uL 4.21 - 5.77 m/uL [employer] Phone: WBC (Bld) [#/Vol] 7.9 10*3/uL [employer] Phone: [employer] Phone: MAGNESIUMOrdered By: Andreas Shepherd on 04-27-2021 Magnesium [Mass/Vol] 1.8 mg/dL 1.6 - 2 .6 mg/dL [employer] Phone: Magnesiumon 04-27-2021 Magnesium [Mass/Vol] 1.8 mg/dL Normal 1.6-2.6 [facility] Comment on above: Performed By: #### B MP, MG ####[facility] [address] [place] [address] Lab Director: Shreyas Crain DO Magnesium [Mass/Vol] 1.3 mg/dL Low 1.6-2.6 [facility] Comment on above: Performed By: #### C BC, BMPX, MG ####[facility] [address]te[address] [place] [address] lab Director: Bowen Lemon MD MagnesiumOrdered By: Jarek Osborn on 04-27-2021 Interpretation and review of laboratory results Abnormal [employer] Phone: Magnesium [Mass/Vol] 1.3 mg/dL Low 1.6 - 2 .6 mg/dL [employer] Phone: [employer] Phone: No Panel InformationOrdered By: Andreas Shepherd on 04-27-2021 [employer] Phone: POC Glucose FingerstickOrder ed By: Ning Wallace on 04-27-2021 Glucose [Mass/Vol] 284 mg/dL High 75 - 110 mg/dL [employer] Phone: Interpretation and review of laboratory results Abnormal [employer] Phone: [employer] Phone: Glucose [Mass/Vol] 254 mg/dL High 75 - 110 mg/dL [employer] Phone: Interpretation and review of laboratory results Abnormal [employer] Phone: [employer] Phone: Glucose [Mass/Vol] 230 mg/dL High 75 - 110 mg/dL [employer] Phone: Interpretation and review of laboratory results Abnormal [employer] Phone: [employer] Phone: Glucose [Mass/Vol] 237 mg/dL High 75 - 110 mg/dL [employer] Phone: Interpretation and review of laboratory results Abnormal [employer] Phone: [employer] Phone: APTTon 04-26-2021 aPTT Coag (Bld) [Time] 44.1 s High 20.5-30.5 [facility] Comment on above: Result Comment: IV Heparin Therapy Range: 48.6-77.8 Performed By: #### P TT ####[facility] [address] [place] [address] lab Director: Bowen Lemon MD aPTT Coag (Bld) [Time] 51.9 s High 20.5-30.5 [facility] Comment on above: Result Comment: IV Heparin Therapy Range: 48.6-77.8 Performed By: #### P TT ####[facility] [address] [place] [address] [facility] Director: Bowen Lemon MD aPTT Coag (Bld) [Time] 48.3 s High 20.5-30.5 [facility] Comment on above: Result Comment: IV Heparin Therapy Range: 48.6-77.8 Performed By: #### P TT ####[address] [address] lab Director: Bowen Lemon MD aPTT Coag (Bld) [Time] 62.7 s High 20.5-30.5 [facility] Comment on above: Result Comment: IV Heparin Therapy Range: 48.6-77.8 Performed By: #### P TT ####[place] [address] lab Director: Bowen Lemon MD APTTOrdered By: Ning martines on 04-26-2021 aPTT Coag (Bld) [Time] 44.1 s High [facility] [employer] Work Phone: Comment on above: IV Heparin Therapy Range: 48.6-77.8 Interpretation and review of laboratory results Abnormal [facility] Phone: [facility] Work Phone: APTTOrdered By: Gee kim on 04-26-2021 aPTT Coag (Bld) [Time] 51.9 s High [facility] [employer] Work Phone: Comment on above: IV Heparin Therapy Range: 48.6-77.8 Interpretation and review of laboratory results Abnormal [facility] Work Phone: [facility] Work Phone: aPTT Coag (Bld) [Time] 48.3 s High Me [facility] Work Phone: Comment on above: IV Heparin Therapy Range: 48.6-77.8 Interpretation and review of laboratory results Abnormal [facility] Phone: [facility] Phone: aPTT Coag (Bld) [Time] 62.7 s High Me [facility] [employer] Phone: Comment on above: IV Heparin Therapy Range: 48.6-77.8 Interpretation and review of laboratory results Abnormal [facility] Phone: [facility] Phone: Basic Metab w/rfx MGon 04-26 Anion gap [Moles/Vol] 12 mmol/L Normal 9-17 [facility] Comment on above: Performed By: #### T ROPI, BMPX, LIPR ####[facility] [address] [place] [address] Lab Director: Bowen Lemon MD Calcium [Mass/Vol] 9.3 mg/dL Normal 8.6-10.4 [facility] Comment on above: Performed By: #### T ROPI, BMPX, LIPR ####[facility] [address] [place] [address] Lab Director: Bowen Lemon MD Chloride [Moles/Vol] 102 mmol/L Normal 98-107 [facility] Comment on above: Performed By: #### T ROPI, BMPX, LIPR ####[facility] [address]fe[address] [place] [address] Lab Director: Bowen Lemon MD CO2 [Moles/Vol] 23 mmol/L Normal 20-31 [facility] Comment on above: Performed By: #### T ROPI, BMPX, LIPR ####[facility] [address]nsbuji[address] [place], [place] [id number] Lab Director: Bowen Lemon MD Creatinine [Mass/Vol] 0.53 mg/dL Low 0.70-1.20 [facility] Comment on above: Performed By: #### T ROPI, BMPX, LIPR ####[facility] [address]uj[address] [place] [address] Lab Director: Bowen Lemon MD GFR, Amer >60 Normal >60 [facility] Comment on above: Performed By: #### T ROPI, BMPX, LIPR ####[facility] [address]au[address] [place] [address] Lab Director: Bowen Lemon MD GFR,non Amer >60 Normal >60 [facility] Comment on above: Performed By: #### T ROPI, BMPX, LIPR ####[facility] [address]hjpocgeh6754 [place] [address] Lab Director: Bowen Lemon MD Glucose [Mass/Vol] 249 mg/dL High 70-99 [facility] Comment on above: Performed By: #### T ROPI, BMPX, LIPR ####[facility] [address] [place] [address] Lab Director: Bowen Lemon MD Potassium [Moles/Vol] 3.6 mmol/L Low 3.7-5.3 [facility] Comment on above: Performed By: #### T ROPI, BMPX, LIPR ####[facility] [address]akinmwj1304 [place] [address] Lab Director: Bowen Lemon MD Sodium [Moles/Vol] 137 mmol/L Normal 135-144 [facility] Comment on above: Performed By: #### T ROPI, BMPX, LIPR ####[facility] [address]ksrhk[address] [place] [address] Lab Director: Bowen Lemon MD Urea nitrogen [Mass/Vol] 9 mg/dL Normal 8-23 [facility] Comment on above: Performed By: #### T ROPI, BMPX, LIPR ####[facility] [address]jpe[address] [place], [place] 1942108 Lab Director: Bowen Lemon MD (cont.) Normal [facility] Comment on above: Result Comment: Aver age GFR for 60-69 years old: 85 mL/min/1.73sq m Chronic Kidney Disease: <60 mL/min/1.73sq m Kidney failure: <15 mL/min/1.73sq m eGFR calculated using average adult body mass. Additional eGFR calculator available at: http://www.[employer]/multiple_crcl_2012.htm Performed By: #### T ROPI, BMPX, LIPR ####[facility] [address]zwh[address]kg[address]ghp2166 [place] [address] Lab Director: Bowen Lemon MD BUN/CRE Ratio NOT REPORTED Normal 07-07 [facility] Comment on above: Performed By: #### T ROPI, BMPX, LIPR ####[facility] [address]odobzsj[address]76 [place], [place] [id number] Lab Director: Bowen Lemon MD Staging: NOT REPORTED Normal [facility] Comment on above: Performed By: #### T ROPI, BMPX, LIPR ####[facility] [address] [place], [place] [id number] Lab Director: Bowen Lemon MD Basic Metabolic Panel w/ Ref darlene to MGOrdered By: Jarek Osborn on 04-26-2021 Anion gap [Moles/Vol] 12 mmol/L 9 - 17 mmol/L [employer] Phone: Calcium [Mass/Vol] 9.3 mg/dL 8.6 - 10. 4 mg/dL [employer] Phone: Chloride [Moles/Vol] 102 mmol/L 98 - 10 7 mmol/L [employer] Phone: CO2 [Moles/Vol] 23 mmol/L 20 - 31 mmol/L [employer] Phone: Creatinine [Mass/Vol] 0.53 mg/dL Low 0.70 - 1.20 mg/dL [employer] Phone: GFR >60 >60 mL/min [employer] Phone: GFR Non- >60 >60 mL/min [employer] Phone: GFR/1.73 sq M.predicted MDRD (S/P/Bld) [Vol rate/Area] [employer] Phone: Comment on above: Average GFR for 60-6 9 years old: 85 mL/min/1.73sq m Chronic Kidney Disease: <60 mL/min/1.73sq m Kidney failure: <15 mL/min/1.73sq m eGFR calculated using average adult body mass. Additional eGFR calculator available at: http://www.[employer]/multiple_crcl_2012.htm GFR/1.73 sq M.predicted MDRD (S/P/Bld) [Vol rate/Area] NOT REPORTED [employer] Phone: Glucose [Mass/Vol] 249 mg/dL High 70 - 99 mg/dL [employer] Phone: Potassium [Moles/Vol] 3.6 mmol/L Low 3.7 - 5.3 mmol/L [employer] Phone: Sodium [Moles/Vol] 137 mmol/L 135 - 144 mmol/L [employer] Phone: Urea nitrogen (BldV) [Mass/Vol] 9 mg/dL 8 - 23 mg/dL [employer] Phone: Urea nitrogen/Creatinine (Bld) [Mass ratio] NOT REPORTED Choice[employer] Phone: Drug Scr, Abuse, Uron 2020 Amphetamine(s),Ur Negative Normal NEG [facility] Comment on above: Result Comment: (Positive cutoff 1000 ng/mL) Performed By: #### U AX, UMICAO, KIM ####[facility] [address] [place] [address] Lab Director: Bowen Lemon MD Barbiturate(s),Ur Negative Normal NEG [facility] Comment on above: Result Comment: (Positive cutoff 200 ng/mL) Performed By: #### U AX, UMICAO, KIM ####[facility] [address] [place] [address] Lab Director: Bowen Lemon MD Benzodiazepine(s) Negative Normal NEG [facility] Comment on above: Result Comment: (Positive cutoff 200 ng/mL) Performed By: #### U AX, UMICAO, KIM ####[facility] [address] [place] [address] Lab Director: Bowen Lemon MD Cannabinoid(s),Ur Negative Normal NEG [facility] Comment on above: Result Comment: (Positive cutoff 50 ng/mL) Performed By: #### U AX, UMICAO, KIM ####[facility] [address] [place] [address] Lab Director: Bowen Lemon MD Cocaine Metabolite Negative Normal NEG [facility] Comment on above: Result Comment: (Positive cutoff 300 ng/mL) Performed By: #### U AX, UMICAO, KIM ####[facility] [address] [place] [address] Lab Director: Bowen Lemon MD Interpretive Info Assay provides medic al screening only. The absence of expected drug(s) and/or Normal [facility] Comment on above: Result Comment: meta bolite(s) may indicate diluted or adulterated urine, limitations of testing or timing of collection. Testing for legal purposes should be confirmed by another method. To request confirmation of test result, please call the lab within 7 days of sample submission. Performed By: #### U AX, UMICAO, KIM ####[facility] [address] [place], [place] [id number])[phone] Director: Bowen Lemon MD Methadone Ql (U) Negative Normal NEG [facility] Comment on above: Result Comment: (Positive cutoff 300 ng/mL) Performed By: #### U AX, UMICAO, KIM ####[facility] [address]63 [place], [place] [phone])[phone] Director: Bowen Lemon MD Opiate(s), Ur Negative Normal NEG [facility] Comment on above: Result Comment: (Positive cutoff 300 ng/mL) Performed By: #### U AX, UMICAO, KIM ####[facility] [address] [place] [address] [phone] Director: Bowen Lemon MD Oxycodone, Urine Negative Normal NEG [facility] Comment on above: Result Comment: (Positive cutoff 100 ng/mL) Performed By: #### U AX, UMICAO, KIM ####[facility] [address] [place], [place] [phone] Director: Bowen Lemon MD Phencyclidine, Ur Negative Normal NEG [facility] Comment on above: Result Comment: (Positive cutoff 25 ng/mL) Performed By: #### U AX, UMICAO, KIM ####[facility] [address] [place], [place] [phone] Director: Bowen Lemon MD Buprenorphrine, Ur NOT REPORTED Normal NEG [facility] Comment on above: Performed By: #### U AX, UMICAO, KIM ####[facility] [address] [place] [address] Lab Director: Bowen Lemon MD MDMA, Urine NOT REPORTED Normal NEG [facility] Comment on above: Performed By: #### U AX, UMICAO, KIM ####[facility] [address] [place] [address] Lab Director: Bowen Lemon MD Methamphetamine, Ur NOT REPORTED Normal NEG [facility] Comment on above: Performed By: #### U AX, UMICAO, KIM ####[facility] [address] [place] [address] Lab Director: Bowen Lemon MD Propoxyphene,Urine NOT REPORTED Normal NEG [facility] Comment on above: Performed By: #### U AX, UMICAO, KIM ####[facility] [address] [place] [address] Lab Director: Bowen Lemon MD Tricyclic antidepressants Screen Ql (U) NOT REPORTED Normal NEG [facility] Comment on above: Performed By: #### U AX, UMICAO, KIM ####[facility] [address] [place] [address] Lab Director: Bowen Lemon MD EKG 12 LeadOrdered By: Milton Parnell on 04-26-2021 Atrial Rate 83 BPM Choice[employer] Phone: P Quincy 48 degrees ChoiceMap Phone: P-R Interval 158 ms [employer] Phone: [phone] Q-T Interval 394 ms [employer] Phone: QRS Duration 98 ms [employer] Phone: QTc Calculation (Bazett) 462 ms [employer] Phone: R Quincy -20 degrees Choice[employer] Phone: T Quincy 89 degrees [employer] Phone: Ventricular Rate 83 BPM [employer] Phone: Normal sinus rhythm Normal ECG When compared with ECG of 24-APR-2021 21:59, No significant change was found [employer] Phone: Adam, Mhpn Incoming E kg Results From [facility] [place] - 04/26/2021 1:58 PM EDT Normal sinus rhythm Normal ECG When compared with ECG of 24-APR-2021 21:59, No significant change was found [employer] Phone: [employer] Phone: LIPID PANELOrdered By: Jay Osborn on 04-26-2021 Cholesterol [Mass/Vol] 112 mg/dL <200 [employer] Phone: Comment on above: Cholesterol Guidelines: <200 Desirable 200-240 Borderline >240 Undesirable Cholesterol in HDL [Mass/Vol] 25 mg/dL Low >40 [employer] Phone: Comment on above: HDL Guidelines: <40 Undesirable 40-59 Borderline >59 Desirable Cholesterol in LDL [Mass/Vol] 51 mg/dL 0 - 130 mg/dL [employer] Phone: Comment on above: LDL Guidelines: <100 Desirable 100-129 Near to/above Desirable 130-159 Borderline >159 Undesirable Direct (measured) LDL and calculated LDL are not interchangeable tests. Cholesterol in VLDL [Mass/Vol] NOT REPORTED High 1 - 30 mg/dL [employer] Phone: Cholesterol.total/Dania sterol in HDL [Mass ratio] 4.5 {ratio} <5 [employer] Phone: Triglyceride [Mass/Vol] 181 mg/dL High <150 M [employer] Phone: Comment on above: Triglyceride Guidelines: <150 Desirable 150-199 Borderline 200-499 High >499 Very high Based on AHA Guidelines for fasting triglyceride, July 2012. Lipid Profileon 04-26-2021 Cholesterol [Mass/Vol] 112 mg/dL Normal <200 Me [facility] Comment on above: Result Comment: Cholesterol Guidelines: <200 Desirable 200-240 Borderline >240 Undesirable Performed By: #### T ROPI, BMPX, LIPR ####[employer] [place] [address] Lab Director: Bowen Lemon MD Cholesterol in HDL [Mass/Vol] 25 mg/dL Low >40 [facility] Comment on above: Result Comment: HDL Guidelines: <40 Undesirable 40-59 Borderline >59 Desirable Performed By: #### T ROPI, BMPX, LIPR ####[facility] [address] [place] [address] Lab Director: Bowen Lemon MD Cholesterol in LDL [Mass/Vol] 51 mg/dL Normal 0-130 [facility] Comment on above: Result Comment: LDL Guidelines: <100 Desirable 100-129 Near to/above Desirable 130-159 Borderline >159 Undesirable Direct (measured) LDL and calculated LDL are not interchangeable tests. Performed By: #### T ROPI, BMPX, LIPR ####[facility] [address] [place] [address] Lab Director: Bowen Lemon MD Cholesterol.total/Dania sterol in HDL [Mass ratio] 4.5 {ratio} Normal <5 [facility] Comment on above: Performed By: #### T ROPI, BMPX, LIPR ####[facility] [address] [place] [address] Lab Director: Bowen Lemon MD Triglyceride [Mass/Vol] 181 mg/dL High <150 M [facility] Comment on above: Result Comment: Triglyceride Guidelines: <150 Desirable 150-199 Borderline 200-499 High >499 Very high Based on AHA Guidelines for fasting triglyceride, July 2012. 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 Mild chronic microvascular disease within the periventricular white matter. Moderate cerebral atrophy. Susceptibility within the right parietal lobe periventricular white matter which may represent a cavernoma versus old hemorrhage. [employer] Work Phone: EXAMINATION: MRI OF THE BRAIN [...] The soft tissues demonstrate no acute abnormality. [employer] Work Phone: Adam, pn Incoming R adiant Results From [employer] - 04/26/2021 3:56 PM EDT EXAMINATION: MRI [...] may represent a cavernoma versus old hemorrhage. [employer] Work Phone: [employer] Work Phone: MRI CERVICAL SPINE WO CONTRA [...] Dhruv Noriega MD 04/26/21 Final result Normal [facility] MRI CERVICAL SPINE WO CONTRA STOrdered By: Esteban Serrano on 04-26-2021 Congenital spinal ca nal stenosis superimposed moderate diffuse degenerative disc disease Moderate central canal stenosis at C5-C6 and C6-C7 and to slightly lesser extent at C3-C4. Multilevel bilateral neural foraminal stenosis as noted above most severe C3-C4 and C6-C7. [employer] Work Phone: EXAMINATION: MRI OF THE CERVICAL [...] spinal canal stenosis or neural foraminal narrowing. [employer] Phone: Adam, Mhpn Incoming R adiant Results From [employer] - 04/26/2021 3:56 PM EDT EXAMINATION: MRI [...] noted above most severe C3-C4 and C6-C7. [employer] Work Phone: [employer] Work Phone: MRI LUMBAR SPINE WO CONTRAST [...] Dhruv Noriega MD 04/26/21 Final result Normal [facility] MRI LUMBAR SPINE WO CONTRAST [...] at L4-L5. Borderline congenital spinal canal stenosis. [employer] Phone: EXAMINATION: MRI OF THE LUMBAR SPINE [...] encroachment by disc bulge and facet disease. [employer] Phone: Adam, Mhpn Incoming R adiant Results From [employer] - 04/26/2021 3:56 PM EDT EXAMINATION: MRI [...] at L4-L5. Borderline congenital spinal canal stenosis. [employer] Phone: [employer] Phone: No Panel InformationOrdered By: Jarek Osborn on 04-26-2021 Interpretation and review of laboratory results Abnormal [employer] Phone: [employer] Phone: Troponinon 04-26-2021 Troponin, High Sens 267 ng/L Critically high 0-22 [facility] Comment on above: Result Comment: High Sensitivity Troponin values cannot be compared with other Troponin methodologies. Patients with high levels of Biotin oral intake (i.e >5mg/day) may have falsely decreased Troponin levels. Samples collected within 8 hours of biotin intake may require additional information for diagnosis. Previous Alert Value Reported Performed By: #### T ROSA ####[employer] [place], [place] [phone] Director: Bowen Lemon MD Troponin Interp. NOT REPORTED Normal [facility] Comment on above: Performed By: #### T ROPI ####[facility] [address] [place], [place] [phone] Director: Bowen Lemon MD Troponin T NOT REPORTED Normal <0.03 [facility] Comment on above: Performed By: #### T ROPI ####[facility] [address]llmviveh[address] [place], [place] [phone] Director: Bowen Lemon MD Troponin, High Sens 199 ng/L Critically high 0-22 [facility] Comment on above: Result Comment: High Sensitivity Troponin values cannot be compared with other Troponin methodologies. Patients with high levels of Biotin oral intake (i.e >5mg/day) may have falsely decreased Troponin levels. Samples collected within 8 hours of biotin intake may require additional information for diagnosis. Previous Alert Value Reported Performed By: #### T ROPI, BMPX, LIPR ####[facility] [address]ux[address] [place], [place] [phone] Director: Bowen Lemon MD Troponin Interp. NOT REPORTED Normal [facility] Comment on above: Performed By: #### T ROPI, BMPX, LIPR ####[facility] [address] [place], [place] [id number])[phone] Director: Bowen Lemon MD Troponin T NOT REPORTED Normal <0.03 [facility] Comment on above: Performed By: #### T ROPI, BMPX, LIPR ####[facility] [address] [place], [place] [phone] Director: Bowen Lemon MD TroponinOrdered By: Jarek mar on 04-26-2021 Interpretation and review of laboratory results Abnormal [employer] Phone: Troponin Interp NOT REPORTED [employer] Phone: Troponin T NOT REPORTED <0.03 ng/mL [employer] Phone: Troponin, High Sensitivity 267 ng/L Critically high 0 - 22 ng/L [employer] Phone: Comment on above: High Sensitivity Troponin values cannot be compared with other Troponin methodologies. Patients with high levels of Biotin oral intake (i.e >5mg/day) may have falsely decreased Troponin levels. Samples collected within 8 hours of biotin intake may require additional information for diagnosis. Previous Alert Value Reported [employer] Phone: TroponinOrdered By: Babak benton on 04-26-2021 Interpretation and review of laboratory results Abnormal [employer] Phone: Troponin Interp NOT REPORTED [employer] Phone: Troponin T NOT REPORTED <0.03 ng/mL [employer] Phone: Troponin, High Sensitivity 199 ng/L Critically high 0 - 22 ng/L [employer] Phone: Comment on above: High Sensitivity Troponin values cannot be compared with other Troponin methodologies. Patients with high levels of Biotin oral intake (i.e >5mg/day) may have falsely decreased Troponin levels. Samples collected within 8 hours of biotin intake may require additional information for diagnosis. Previous Alert Value Reported [employer] Phone: UA w/Reflex Cultureon 2020 Bilirubin, SemiQt,Ur Negative Normal NEG [facility] Comment on above: Performed By: #### U AX, UMICAO, KIM ####[facility] [address] [place] [address] Lab Director: Bowen Lemon MD Blood, Urine TRACE Abnormal NEG [facility] Comment on above: Performed By: #### U AX, UMICAO, KIM ####[facility] [address] [place] [address] Lab Director: Bowen Lemon MD Clarity (U) CLEAR Normal CLEAR [facility] Comment on above: Performed By: #### U AX, UMICAO, KIM ####[facility] [address] [place] [address] Lab Director: Bowen Lemon MD Color (U) YELLOW Normal YEL [facility] Comment on above: Performed By: #### U AX, UMICAO, KIM ####[facility] [address] [place] [address] Lab Director: Bowen Lemon MD Glucose Ql (U) 1+ Abnormal NEG [facility] Comment on above: Performed By: #### U AX, UMICAO, KIM ####[facility] [address] [place] [address] lab Director: Bowen Lemon MD Ketones Ql (U) TRACE Abnormal NEG [facility] Comment on above: Performed By: #### U AX, UMICAO, KIM ####[facility] [address] [place] [address] Lab Director: Bowen Lemon MD Leukocyte esterase Test strip Ql (U) Negative Normal NEG [facility] Comment on above: Performed By: #### U AX, UMICAO, KIM ####[facility] [address] [place] [address] Lab Director: Bowen Lemon MD Nitrite,Ur Negative Normal NEG [facility] Comment on above: Performed By: #### U AX, UMICAO, KIM ####[facility] [address]wt[address] [place] [address] Lab Director: Bowen Lemon MD PH,Ur 7.0 Normal 5.0-8.0 [facility] Comment on above: Performed By: #### U AX, UMICAO, KIM ####[facility] [address] [place], [place] [phone] Director: Bowen Lemon MD Protein Ql (U) 2+ Abnormal NEG [facility] Comment on above: Performed By: #### U AX, UMICAO, KIM ####[facility] Fkjpesrrsvfd97[address] [place], [place] [phone])[phone] Director: Bowen Lemon MD Spec. Tustin,Ur 1.012 Normal 1.005-1.03 0 [facility] Comment on above: Performed By: #### U AX, UMICAO, KIM ####[facility] [address]qoyaqvixcup39[address] [place], [place] [phone])[phone] Director: Bowen Lemon MD Urobilinogen,Ur Normal Normal NORM [facility] Comment on above: Performed By: #### U AX, UMICAO, KIM ####[facility] V[address]jf[address]pex[address] [place], [place] [phone] Director: Bowen Lemon MD Comment NOT REPORTED Normal [facility] Comment on above: Performed By: #### U AX, UMICAO, KIM ####[facility] [address]uxlbyzkkeqr3[address] [place], [place] [phone])[phone] Director: Bowen Lemon MD Urinalysis,Microon 1 ----- Normal [facility] Comment on above: Performed By: #### U AX, UMICAO, KIM ####[facility] Jnynxhhzpvul1340 [place], [place] [phone] Director: Bowen Lemon MD Epithelial cells LM Ql (Urine sed) None Normal 0-5 [facility] Comment on above: Performed By: #### U AX, UMICAO, KIM ####[facility] Dcrxbqitcdjn6934 [place], [place] [phone] Director: Bowen Lemon MD Urine RBC's 5 TO 10 Normal 0-4 [facility] Comment on above: Result Comment: Refe rence range defined for non-centrifuged specimen. Performed By: #### U AX, UMICAO, KIM ####[facility] [address] [place] [address] Lab Director: Bowen Lemon MD Urine WBC's None Normal 0-5 [facility] Comment on above: Performed By: #### U AX, UMICAO, KIM ####[facility] [address]io[address] [place] [address] Lab Director: Bowen Lemon MD Amorphous sediment LM Ql (Urine sed) NOT REPORTED Normal NONE [facility] Comment on above: Performed By: #### U AX, UMICAO, KIM ####[facility] [address]ba[address]zt[address]12 [place] [address] Lab Director: Bowen Lemon MD Bacteria NOT REPORTED Normal NONE [facility] Comment on above: Performed By: #### U AX, UMICAO, KIM ####[facility] [address]fionqi[address] [place] [address] Lab Director: Bowen Lemon MD Casts NOT REPORTED Normal 0-8 [facility] Comment on above: Performed By: #### U AX, UMICAO, KIM ####[facility] P[address]emsvpvr1877 [place] [address] Lab Director: Bowen Lemon MD Crystals LM Nom (Urine sed) NOT REPORTED Normal NONE [facility] Comment on above: Performed By: #### U AX, UMICAO, KIM ####[facility] [address]pgdoqoyeqb7942 [place] [address] Lab Director: Bowen Lemon MD Epithelial, Renal NOT REPORTED Normal 0 [facility] Comment on above: Performed By: #### U AX, UMICAO, KIM ####[facility] [address]fgpaxylofp5312 [place] [address] Lab Director: Bowen Lemon MD Mucus Strands NOT REPORTED Normal NONE [facility] Comment on above: Performed By: #### U DANIEL MELGAR KIM ####[facility] [address] [place], [place] [phone] Director: Bowen Lemon MD Other Observations NOT REPORTED Normal NREQ [facility] Comment on above: Performed By: #### U AXDANIEL, KIM ####[facility] [address]ges[address]hn[address] [place], [place] [phone] Director: Bowen Lemon MD Trichomonas NOT REPORTED Normal NONE [facility] Comment on above: Performed By: #### U DANIEL MELGAR KIM ####[facility] B[address]qdigjscjab[address]171 [place], [place] [phone] Director: Bowen Lemon MD Yeast NOT REPORTED Normal NONE [facility] Comment on above: Performed By: #### U DANIEL MELGAR, KIM ####[facility] R[address]fmosbtwvm4365 [place], [place] [phone])[phone] Director: Bowen Lemon MD APTTon 04-25-2021 aPTT Coag (Bld) [Time] 24.8 s Normal 20.5-30.5 [facility] Comment on above: Result Comment: IV Heparin Therapy Range: 48.6-77.8 Performed By: #### P TT ####[facility] [address] [place] [address] [phone] Director: Bowen Lemon MD aPTT Coag (Bld) [Time] 78.5 s High 20.5-30.5 [facility] Comment on above: Result Comment: IV Heparin Therapy Range: 48.6-77.8 Performed By: #### C BC, PTT ####[facility] [address]uywrp[address] [place], [place] [phone])[phone] Director: Bowen Lemon MD APTTOrdered By: Pj Becerril on 04-25-2021 aPTT Coag (Bld) [Time] 24.8 s [facility] [employer] Phone: Comment on above: IV Heparin Therapy Range: 48.6-77.8 [facility] Phone: APTTOrdered By: Gee Bergeron elsydiego on 04-25-2021 aPTT Coag (Bld) [Time] 78.5 s High [facility] [employer] Phone: Comment on above: IV Heparin Therapy Range: 48.6-77.8 Interpretation and review of laboratory results Abnormal [facility] [employer] Phone: [facility] Phone: B12/Folate Panelon Folic Acid 15.2 ng/mL Normal >4.8 [facility] Comment on above: Performed By: #### B 12FOL ####[employer] [place], [place] 0030008 Lab Director: Bowen Lemon MD B12/Folate PanelOrdered By: Sabrina Aguiar on 04-25-2021 Cobalamin (Vitamin B12) [Mass/Vol] 594 pg/mL Normal 232-1245 [facility] [employer] Phone: Comment on above: Performed By: #### B 12FOL ####[facility] [address] [place] [address] Lab Director: Bowen Lemon MD C-Reactive Proteinon 021 CRP [Mass/Vol] 8.1 mg/L High 0.0-5.0 [facility] Comment on above: Performed By: #### S ED, CRP, STROKE #### [facility] [address] [place] [address] [employer] Floor Installer: Bowen Lemon MD C-Reactive ProteinOrdered By : Kranthi Ruvalcaba on 04-25-2021 CRP [Mass/Vol] 8.1 mg/L High 0.0 - 5.0 mg/L [employer] Phone: Interpretation and review of laboratory results Abnormal [employer] Phone: [employer] Phone: CBCon 04-25-2021 Erythrocyte distribution width (RBC) [Ratio] 14.0 % Normal 11.8-14.4 [facility] Comment on above: Performed By: #### C BC, PTT ####[facility] [address] [place] [address] Lab Director: Bowen Lemon MD Hematocrit (Bld) [Volume fraction] 41.8 % Normal 40.7-50.3 [facility] Comment on above: Performed By: #### C BC, PTT ####[address] [address] Lab Director: Bowen Lemon MD Hemoglobin (Bld) [Mass/Vol] 13.8 g/dL Normal 13.0-17.0 [facility] Comment on above: Performed By: #### C BC, PTT ####[facility] [address] [place] [address] Lab Director: Bowen Lemon MD MCH (RBC) [Entitic mass] 30.7 pg Normal 25.2-33.5 [facility] Comment on above: Performed By: #### C BC, PTT ####[facility] [address] [place] [address] Lab Director: Bowen Lemon MD MCHC (RBC) [Mass/Vol] 33.0 g/dL Normal 28.4-34.8 [facility] Comment on above: Performed By: #### C BC, PTT ####[facility] [address] [place] [address] Lab Director: Bowen Lemon MD MCV (RBC) [Entitic vol] 93.1 fL Normal 82.6-102.9 [facility] Comment on above: Performed By: #### C BC, PTT ####[facility] [address] [place] [address] Lab Director: Bowen Lemon MD NRBC Automated 0.0 per 100 WBC Normal 0.0 [facility] Comment on above: Performed By: #### C BC, PTT ####[facility] [address] [place], [place] [phone] Director: Bowen Lemon MD Platelet mean volume (Bld) [Entitic vol] 10.3 fL Normal 8.1-13.5 [facility] Comment on above: Performed By: #### C BC, PTT ####[facility] [address] [place], [place] [phone] Director: Bowen Leomn MD Platelets (Bld) [#/Vol] 195 10*3/uL Normal 138-453 [facility] Comment on above: Performed By: #### C BC, PTT ####[facility] [address] [place], [place] [phone] Director: Bowen Lemon MD RBC (Bld) [#/Vol] 4.49 10*6/uL Normal 4.21-5.77 [facility] Comment on above: Performed By: #### C BC, PTT ####[facility] [address] [place], [place] [phone] Director: Bowen Lemon MD WBC (Bld) [#/Vol] 6.7 10*3/uL Normal 3.5-11.3 [facility] Comment on above: Performed By: #### C BC, PTT ####[facility] [address] [place], [place] [phone] Director: Bowen Lemon MD CBCOrdered By: Gee benoit on 04-25-2021 Hematocrit (Bld) [Volume fraction] 41.8 % 40.7 - 50.3 % [employer] Phone: Hemoglobin.gastrointest inal spec 1 Ql (Stl) 13.8 g/dL 13.0 - 17.0 g/dL [employer] Phone: MCH (RBC) [Entitic mass] 30.7 pg 25.2 - 33.5 pg [employer] Phone: MCHC (RBC) [Mass/Vol] 33.0 g/dL 28.4 - 34.8 g/dL [employer] Phone: MCV (RBC) [Entitic vol] 93.1 fL 82.6 - 102.9 fL [employer] Phone: NRBC Automated 0.0 0.0 per 100 WBC [employer] Phone: Platelet distribution width (Bld) [Ratio] 14.0 % 11.8 - 14.4 % [employer] Phone: Platelet mean volume (Bld) [Entitic vol] 10.3 fL 8.1 - 13.5 fL [employer] Phone: Platelets (Bld) [#/Vol] 195 10*3/uL [employer] Phone: RBC (Bld) [#/Vol] 4.49 10*6/uL 4.21 - 5.77 m/uL [employer] Phone: WBC (Bld) [#/Vol] 6.7 10*3/uL [employer] Phone: [employer] Phone: COVID-19, RapidOrdered By: Alonso Oreilly on 04-25-2021 SARS-CoV-2 (COVID-19) RNA PLACIDO+probe Ql (Unsp spec) Not detected Not Detected [employer] Phone: Comment on above: Rapid NAAT: The [...] management decisions. Fact sheet for Healthcare Providers: https://www.fda.gov/media/036994/download Fact sheet for Patients: https://www.fda.gov/media/784605/download Methodology: Isothermal Nucleic Acid Amplification Specimen Description .NASOPHARYNGEAL SWAB [employer] Phone: Choice[employer] Phone: CT ABDOMEN PELVIS WO CONTRAS Ton [...] Guero Juárez MD 04/25/21 Final result Normal [facility] CT ABDOMEN PELVIS WO CONTRAS [...] secondary to encroachment by disc osteophyte complex. [facility] [employer] Work Phone: EXAMINATION: CT OF T HE [...] soft tissues are otherwise unremarkable in appearance. [employer] Work Phone: Adam, Mhpn Incoming R adiant Results From [employer] - 04/25/2021 5:21 AM EDT EXAMINATION: CT [...] secondary to encroachment by disc osteophyte complex. [employer] Phone: ChoiceMap Phone: CT CERVICAL SPINE WO CONTRAS Ton [...] of significant central canal stenosis/compromise identified. Multilevel nyry-il-rufanymw facet degenerative hypertrophy is seen. C3/C4 mild [...] Guero Juárez MD 04/24/21 Final result Normal [facility] CT HEAD WO CONTRASTon 2020 [...] Bandar Ardon MD 04/24/21 Final result Normal [facility] CTA HEAD NECK W CONTRASTon [...] Guero Juárez MD 04/24/21 Final result Normal [facility] DRUG SCREEN MULTI URINEOrder ed By: Jarek Osborn on 04-25-2021 Amphetamine Screen, Ur Negative NEGATIVE [facility] [employer] Work Phone: Comment on above: (Positive cutoff 1000 ng/mL) Barbiturate Screen, Ur Negative NEGATIVE [facility] [employer] Work Phone: Comment on above: (Positive cutoff 200 ng/mL) Benzodiazepine Screen, Urine Negative NEGATIVE [facility] [employer] Work Phone: Comment on above: (Positive cutoff 200 ng/mL) Buprenorphine Urine NOT REPORTED NEGATIVE [facility] [employer] Work Phone: Cannabinoid Scrn, Ur Negative NEGATIVE [facility] Work Phone: Comment on above: (Positive cutoff 50 ng/mL) Cocaine Metabolite, Urine Negative NEGATIVE [facility] [employer] Work Phone: Comment on above: (Positive cutoff 300 ng/mL) MDMA, Urine NOT REPORTED NEGATIVE [facility]: Methadone Screen, Urine Negative NEGATIVE [facility] [employer] Work Phone: Comment on above: (Positive cutoff 300 ng/mL) Methamphetamine, Urine NOT REPORTED NEGATIVE [employer] Work Phone: Opiates, Urine Negative NEGATIVE [employer] Work Phone: Comment on above: (Positive cutoff 300 ng/mL) Oxycodone Screen, Ur Negative NEGATIVE [facility] Work Phone: Comment on above: (Positive cutoff 100 ng/mL) Phencyclidine, Urine Negative NEGATIVE [employer] Work Phone: Comment on above: (Positive cutoff 25 ng/mL) Propoxyphene, Urine NOT REPORTED NEGATIVE [facility] [employer] Work Phone: Test Information Assay provides medic al screening only. The absence of expected drug(s) and/or metabolite(s) may indicate diluted or adulterated urine, limitations of testing or timing of collection. [employer] Phone: Comment on above: Testing for legal pu rposes should be confirmed by another method. To request confirmation of test result, please call the lab within 7 days of sample submission. Tricyclic Antidepressants, Urine NOT REPORTED NEGATIVE [employer] Phone: [employer] Phone: EEG awake and drowsyOrdered By: Sabrina [...] non specific etiology. Juan Judd MD Diplomate, [place] [employer] and [employer] Phone: [employer] Phone: EKG 12 LeadOrdered By: Rashawn Ruvalcaba on 04-25-2021 Atrial Rate 84 BPM [employer] Phone: P Quincy 43 degrees ChoiceMap Phone: P-R Interval 166 ms [employer] Phone: Q-T Interval 380 ms [employer] Phone: QRS Duration 96 ms [employer] Phone: QTc Calculation (Bazett) 449 ms [employer] Phone: R Quincy -8 degrees [employer] Phone: T Quincy 99 degrees [employer] Phone: Ventricular Rate 84 BPM [employer] Phone: Normal sinus rhythm Abnormal QRS-T angle, consider primary T wave abnormality Abnormal ECG When compared with ECG of 30-OCT-2019 17:11, No significant change was found [employer] Phone: Adam, Mhpn Incoming E kg Results From [facility] [place] - 04/25/2021 1:23 PM EDT Normal sinus rhythm Abnormal QRS-T angle, consider primary T wave abnormality Abnormal ECG When compared with ECG of 30-OCT-2019 17:11, No significant change was found [employer] Phone: [employer] Phone: HEMOGLOBIN [id number] By: Rolando Epstein on 04-25-2021 Glucose [Mass/Vol] 169 mg/dL [employer] Phone: Comment on above: The ADA and AACC rec ommend providing the estimated average glucose result to permit better patient understanding of their HBA1c result. HbA1c (Bld) [Mass fraction] 7.5 % High 4.0 - 6.0 % [employer] Phone: Interpretation and review of laboratory results Abnormal [employer] Phone: [employer] Phone: Hemoglobin A1Con 04-25-2021 Glucose [Mass/Vol] 169 mg/dL Normal [facility] Comment on above: Result Comment: The ADA and AACC recommend providing the estimated average glucose result to permit better patient understanding of their HBA1c result. Performed By: #### G LYHGB ####[facility] [address] [place], [place] [id number] lab Director: Bowen Lemon MD HbA1c (Bld) [Mass fraction] 7.5 % High 4.0-6.0 [facility] Comment on above: Performed By: #### G LYHGB ####[facility] [address] [place] [address] lab Director: Bowen Lemon MD Microscopic UrinalysisOrdere d By: Jarek Osborn on 04-25-2021 - [employer] Phone: Amorphous, UA NOT REPORTED None [employer] Phone: Bacteria, UA NOT REPORTED None [employer] Phone: Casts UA NOT REPORTED [employer] Phone: Crystals, UA NOT REPORTED None /HPF [employer] Phone: Epithelial Cells UA None [employer] Phone: Mucus, UA NOT REPORTED None [employer] Phone: Other Observations UA NOT REPORTED NOT REQ. [facility] Work Phone: RBC, UA 5 TO 10 [employer] Phone: Comment on above: Reference range defi odette for non-centrifuged specimen. Renal Epithelial, UA NOT REPORTED 0 /HPF [facility] Work Phone: Trichomonas, UA NOT REPORTED None [employer] Phone: WBC, UA None [employer] Phone: Yeast, UA NOT REPORTED None [employer] Phone: [employer] Work Phone: POC Glucose FingerstickOrder ed By: Callie Murrell on 04-25-2021 Glucose [Mass/Vol] 224 mg/dL High 75 - 110 mg/dL [employer] Phone: Interpretation and review of laboratory results Abnormal [employer] Phone: Choice[employer] Phone: [id number] 04-25-2021 SARS-CoV-2 (COVID-19) RNA PLACIDO+probe Ql (Unsp spec) Not detected Normal NOTDET [facility] Comment on above: Result Comment: [...] management decisions. Fact sheet for Healthcare Providers: https://www.fda.gov/media/319740/download Fact sheet for Patients: https://www.fda.gov/media/671415/download Methodology: Isothermal Nucleic Acid Amplification Performed By: #### C OVRB #### [employer] [address] [place] [address] [place] Floor Installer: Bowen Lemon MD STROKE PANELOrdered By: Tuan Ruvalcaba on 04-25-2021 % CKMB 4.6 % High 0.0 - 3.5 % [employer] Phone: Absolute Eos # 0.07 [employer] Phone: Absolute Immature Granulocyte 0.04 [employer] Phone: Absolute Lymph # 2.89 [employer] Phone: Absolute [place] # 0.72 [facility] Phone: Anion gap [Moles/Vol] 16 mmol/L 9 - 17 mmol/L [employer] Phone: aPTT Coag (Bld) [Time] 23.4 s Me [employer] Phone: Comment on above: IV Heparin Therapy Range: 48.6-77.8 Basophils (Bld) [#/Vol] 0.05 10*3/uL [facility] Phone: Basophils/100 WBC (Bld) 1 % 0 - 2 % [facility] Phone: Calcium [Mass/Vol] 9.8 mg/dL 8.6 - 10. 4 mg/dL [employer] Phone: Chloride [Moles/Vol] 99 mmol/L 98 - 10 7 mmol/L [facility] Phone: CK [Catalytic activity/Vol] 108 U/L 39 - 308 U/L [employer] Phone: CK.MB [Mass/Vol] 5 ng/mL <10.5 [employer] Phone: CKMB Interpretation NORMAL ISOENZYME PATTERN [employer] Phone: CO2 [Moles/Vol] 19 mmol/L Low 20 - 31 mmol/L [employer] Phone: Creatinine [Mass/Vol] 0.82 mg/dL 0.70 - 1.20 mg/dL [employer] Phone: Differential Type NOT REPORTED [employer] Phone: Eosinophils/100 WBC (Bld) 1 % 1 - 4 % [facility] Phone: GFR >60 >60 mL/min [employer] Phone: GFR Non- >60 >60 mL/min [employer] Phone: GFR/1.73 sq M.predicted MDRD (S/P/Bld) [Vol rate/Area] [employer] Phone: Comment on above: Average GFR for 60-6 9 years old: 85 mL/min/1.73sq m Chronic Kidney Disease: <60 mL/min/1.73sq m Kidney failure: <15 mL/min/1.73sq m eGFR calculated using average adult body mass. Additional eGFR calculator available at: http://www.[employer]_crcl_2012.htm GFR/1.73 sq M.predicted MDRD (S/P/Bld) [Vol rate/Area] NOT REPORTED [employer] Phone: Glucose [Mass/Vol] 130 mg/dL High 70 - 99 mg/dL [employer] Phone: Hematocrit (Bld) [Volume fraction] 44.0 % 40.7 - 50.3 % [employer] Phone: Hemoglobin.gastrointest inal spec 1 Ql (Stl) 14.5 g/dL 13.0 - 17.0 g/dL [employer] Phone: Immature granulocytes/100 WBC (Bld) 0 % 0 [employer] Phone: INR Coag (Bld) [Relative time] 1.0 {INR} [employer] Phone: Comment on above: Therapeutic Range: Moderate Anticoagulant Intensity: INR = 2.0-3.0 High Anticoagulant Intensity: INR = 2.5-3.5 Interpretation and review of laboratory results Abnormal [employer] Phone: Lymphocytes/100 WBC (Bld) 29 % 24 - 43 % [employer] Phone: MCH (RBC) [Entitic mass] 29.9 pg 25.2 - 33.5 pg [employer] Phone: MCHC (RBC) [Mass/Vol] 33.0 g/dL 28.4 - 34.8 g/dL [employer] Phone: MCV (RBC) [Entitic vol] 90.7 fL 82.6 - 102.9 fL [employer] Phone: Monocytes/100 WBC (Bld) 7 % 3 - 12 % [facility] [employer] Phone: Myoglobin [Mass/Vol] 41 ng/mL 28 - 72 ng/mL [employer] Phone: NRBC Automated 0.0 0.0 per 100 WBC [employer] Phone: Platelet distribution width (Bld) [Ratio] 14.0 % 11.8 - 14.4 % [employer] Phone: Platelet Estimate NOT REPORTED [employer] Phone: Platelet mean volume (Bld) [Entitic vol] 11.1 fL 8.1 - 13.5 fL [employer] Phone: Platelets (Bld) [#/Vol] 249 10*3/uL [employer] Phone: Potassium [Moles/Vol] 3.7 mmol/L 3.7 - 5.3 mmol/L [employer] Phone: PT Coag (PPP) [Time] 10.7 s [employer] Phone: RBC (Bld) [#/Vol] 4.85 10*6/uL 4.21 - 5.77 m/uL [employer] Phone: RBC (Bld) [#/Vol] NOT REPORTED [employer] Phone: Segmented neutrophils/100 WBC (Bld) 62 % 36 - 65 % [employer] Phone: Segs Absolute 6.24 [employer] Phone: Sodium [Moles/Vol] 134 mmol/L Low 135 - 144 mmol/L [employer] Phone: Troponin Interp NOT REPORTED [employer] Phone: Troponin T NOT REPORTED <0.03 ng/mL [employer] Phone: Troponin, High Sensitivity 180 ng/L Critically high 0 - 22 ng/L [employer] Phone: Comment on above: High Sensitivity Troponin values cannot be compared with other Troponin methodologies. Patients with high levels of Biotin oral intake (i.e >5mg/day) may have falsely decreased Troponin levels. Samples collected within 8 hours of biotin intake may require additional information for diagnosis. Urea nitrogen (BldV) [Mass/Vol] 18 mg/dL 8 - 23 mg/dL [employer] Phone: Urea nitrogen/Creatinine (Bld) [Mass ratio] NOT REPORTED [employer] Phone: WBC (Bld) [#/Vol] 10.0 10*3/uL [employer] Phone: WBC (Bld) [#/Vol] NOT REPORTED [employer] Phone: [employer] Phone: Sedimentation Rateon 021 Sedimentation Rate 25 mm High 0-20 [facility] Comment on above: Performed By: #### S ED, CRP, STROKE #### [employer] [address] [place], [place] [id number] [place] Floor Installer: Bowen Lemon MD Stroke Panelon 04-25-2021 % CKMB 4.6 % High 0.0-3.5 [facility] Comment on above: Performed By: #### S ED, CRP, STROKE #### [employer] [address] [place] Floor Installer: Bowen Lemon MD CK-MB,Quantitative 5.0 ng/mL Normal <10.5 [facility] Comment on above: Performed By: #### S ED CRP, STROKE #### [address] [address] [place] Floor Installer: Bowen Lemon MD CKMB-Interpretation NORMAL ISOENZYME PATTERN Normal [facility] Comment on above: Performed By: #### S SHANNAN MCKNIGHT, STROKE #### [address] [address] [place] Floor Installer: Bowen Lemon MD (cont.) Normal [facility] Comment on above: Result Comment: Aver age GFR for 60-69 years old: 85 mL/min/1.73sq m Chronic Kidney Disease: <60 mL/min/1.73sq m Kidney failure: <15 mL/min/1.73sq m eGFR calculated using average adult body mass. Additional eGFR calculator available at: http://www.[employer]/multiple_crcl_2012.htm Performed By: #### S ROXANNA CRP, STROKE #### [address] [address] [place] Floor Installer: Bowen Lemon MD Anion gap [Moles/Vol] 16 mmol/L Normal 9-17 [facility] Comment on above: Performed By: #### S ROXANNA CRP, STROKE #### [address] [address] [place] Floor Installer: Bowen Lemon MD Calcium [Mass/Vol] 9.8 mg/dL Normal 8.6-10.4 [facility] Comment on above: Performed By: #### S ED CRP, STROKE #### [address] [address] [place] Floor Installer: Bowen Lemon MD Chloride [Moles/Vol] 99 mmol/L Normal 98-107 [facility] Comment on above: Performed By: #### S ED, CRP, STROKE #### [facility] [address] [place] [address] [place] Floor Installer: Bowen Lemon MD CK [Catalytic activity/Vol] 108 U/L Normal 39-308 [facility] Comment on above: Performed By: #### S ED, CRP, STROKE #### [facility] [address] [place] [address] [place] Floor Installer: Bowen Lemon MD CO2 [Moles/Vol] 19 mmol/L Low 20-31 [facility] Comment on above: Performed By: #### S ED, CRP, STROKE #### [facility] [address] [place] [address] [place] Floor Installer: Bowen Lemon MD Creatinine [Mass/Vol] 0.82 mg/dL Normal 0.70-1.20 [facility] Comment on above: Performed By: #### S ED, CRP, STROKE #### [facility] [address] [place] [address] [place] Floor Installer: Bowen Lemon MD GFR, Amer >60 Normal >60 [facility] Comment on above: Performed By: #### S ED, CRP, STROKE #### [facility] [address] [place] [address] [place] Floor Installer: Bowen Lemon MD GFR,non Amer >60 Normal >60 [facility] Comment on above: Performed By: #### S ED, CRP, STROKE #### [facility] [address] [place] [address] [place] Floor Installer: Bowen Lemon MD Glucose [Mass/Vol] 130 mg/dL High 70-99 [facility] Comment on above: Performed By: #### S ED, CRP, STROKE #### [facility] [address] [place] [address] [place] Floor Installer: Bowen Lemon MD Potassium [Moles/Vol] 3.7 mmol/L Normal 3.7-5.3 [facility] Comment on above: Performed By: #### S ED, CRP, STROKE #### [facility] [address] [place] [address] [place] Floor Installer: Bowen Lemon MD Sodium [Moles/Vol] 134 mmol/L Low 135-144 [facility] Comment on above: Performed By: #### S ED, CRP, STROKE #### [facility] [address] [place] [address] [place] Floor Installer: Bowen Lemon MD Urea nitrogen [Mass/Vol] 18 mg/dL Normal 8-23 [facility] Comment on above: Performed By: #### S ED, CRP, STROKE #### [facility] [employer] [address] [place] [address] [place] Floor Installer: Bowen Lemon MD Myoglobin [Mass/Vol] 41 ng/mL Normal 28-72 [facility] Comment on above: Performed By: #### S ED, CRP, STROKE #### [facility] [employer] [address] [place] [address] [place] Floor Installer: Bowen Lemon MD Troponin, High Sens 180 ng/L Critically high 0-22 [facility] Comment on above: Result Comment: High Sensitivity Troponin values cannot be compared with other Troponin methodologies. Patients with high levels of Biotin oral intake (i.e >5mg/day) may have falsely decreased Troponin levels. Samples collected within 8 hours of biotin intake may require additional information for diagnosis. Performed By: #### S ED, CRP, STROKE #### [facility] [employer] [address] [place] [address] [place] Floor Installer: Bowen Lemon MD INR Coag (PPP) [Relative time] 1.0 {INR} Normal [facility] Comment on above: Result Comment: Therapeutic Range: Moderate Anticoagulant Intensity: INR = 2.0-3.0 High Anticoagulant Intensity: INR = 2.5-3.5 Performed By: #### S ED, CRP, STROKE #### [address] [address] [place] Floor Installer: Bowen Lemon MD PT Coag (PPP) [Time] 10.7 s Normal 9.1-12.3 [facility] Comment on above: Performed By: #### S ED, CRP, STROKE #### [address] [address] [place] Floor Installer: Bowen Lemon MD aPTT Coag (Bld) [Time] 23.4 s Normal 20.5-30.5 [facility] Comment on above: Result Comment: IV Heparin Therapy Range: 48.6-77.8 Performed By: #### S ED, CRP, STROKE #### [address] [address] [place] Floor Installer: Bowen Lemon MD Abs. Basophil 0.05 k/uL Normal 0.00-0.20 [facility] Comment on above: Performed By: #### S ED, CRP, STROKE #### [address] [address] [place] Floor Installer: Bowen Lemon MD Abs.Imm.Granulocyte 0.04 k/uL Normal 0.00-0.30 [facility] Comment on above: Performed By: #### S ED, CRP, STROKE #### [address] [address] [place] Floor Installer: Bowen Lemon MD Abs.Neutrophil (Seg) 6.24 k/uL Normal 1.50-8.10 [facility] Comment on above: Performed By: #### S ED, CRP, STROKE #### [address] [address] [place] Floor Installer: Bowen Lemon MD Basophils/100 WBC (Bld) 1 % Normal 0-2 [facility] Comment on above: Performed By: #### S ED, CRP, STROKE #### [address] [address] [place] Floor Installer: Bowen Lemon MD Eosinophils (Bld) [#/Vol] 0.07 10*3/uL Normal 0.00-0.44 [facility] Comment on above: Performed By: #### S ED, CRP, STROKE #### [address] [address] [place] Floor Installer: Bowen Lemon MD Eosinophils/100 WBC (Bld) 1 % Normal 1-4 [facility] Comment on above: Performed By: #### S ED, CRP, STROKE #### [address] [address] [place] Floor Installer: Bowen Lemon MD Erythrocyte distribution width (RBC) [Ratio] 14.0 % Normal 11.8-14.4 [facility] Comment on above: Performed By: #### S ED, CRP, STROKE #### [address] [address] [place] Floor Installer: Bowen Lemon MD Hematocrit (Bld) [Volume fraction] 44.0 % Normal 40.7-50.3 [facility] Comment on above: Performed By: #### S ED, CRP, STROKE #### [address] [address] [place] Floor Installer: Bowen Lemon MD Hemoglobin (Bld) [Mass/Vol] 14.5 g/dL Normal 13.0-17.0 [facility] Comment on above: Performed By: #### S ED, CRP, STROKE #### [facility] [employer] [address] [place] [address] [place] Floor Installer: Bowen Lemon MD Immature granulocytes/100 WBC (Bld) 0 % Normal 0 [facility] Comment on above: Performed By: #### S ED, CRP, STROKE #### [address] [address] [place] Floor Installer: Bowen Lemon MD Lymphocytes (Bld) [#/Vol] 2.89 10*3/uL Normal 1.10-3.70 [facility] Comment on above: Performed By: #### S ED, CRP, STROKE #### [address] [address] [place] Floor Installer: Bowen Lemon MD Lymphocytes/100 WBC (Bld) 29 % Normal 24-43 [facility] Comment on above: Performed By: #### S ED, CRP, STROKE #### [address] [address] [place] Floor Installer: Bowen Lemon MD MCH (RBC) [Entitic mass] 29.9 pg Normal 25.2-33.5 [facility] Comment on above: Performed By: #### S ED, CRP, STROKE #### [address] [address] [place] Floor Installer: Bowen Lemon MD MCHC (RBC) [Mass/Vol] 33.0 g/dL Normal 28.4-34.8 [facility] Comment on above: Performed By: #### S ED, CRP, STROKE #### [address] [address] [place] Floor Installer: Bowen Lemon MD MCV (RBC) [Entitic vol] 90.7 fL Normal 82.6-102.9 [facility] Comment on above: Performed By: #### S ED, CRP, STROKE #### [address] [address] [place] Floor Installer: Bowen Lemon MD Monocytes (Bld) [#/Vol] 0.72 10*3/uL Normal 0.10-1.20 [facility] Comment on above: Performed By: #### S ED, CRP, STROKE #### [facility] [address] [place] [address] [place] Floor Installer: Bowen Lemon MD Monocytes/100 WBC (Bld) 7 % Normal 3-12 [facility] Comment on above: Performed By: #### S ED, CRP, STROKE #### [address] [address] [place] Floor Installer: Bowen Lemon MD Neutrophil (Seg) 62 % Normal 36-65 [facility] Comment on above: Performed By: #### S ED, CRP, STROKE #### [address] [address] [place] Floor Installer: Bowen Lemon MD NRBC Automated 0.0 per 100 WBC Normal 0.0 [facility] Comment on above: Performed By: #### S ED, CRP, STROKE #### [address] [address] [place] Floor Installer: Bowen Lemon MD Platelet mean volume (Bld) [Entitic vol] 11.1 fL Normal 8.1-13.5 [facility] Comment on above: Performed By: #### S ED, CRP, STROKE #### [address] [address] [place] Floor Installer: Bowen Lemon MD Platelets (Bld) [#/Vol] 249 10*3/uL Normal 138-453 [facility] Comment on above: Performed By: #### S ED, CRP, STROKE #### [address] [address] [place] Floor Installer: Bowen Lemon MD RBC (Bld) [#/Vol] 4.85 10*6/uL Normal 4.21-5.77 [facility] Comment on above: Performed By: #### S ED, CRP, STROKE #### [address] [address] [place] Floor Installer: Bowen Lemon MD WBC (Bld) [#/Vol] 10.0 10*3/uL Normal 3.5-11.3 [facility] Comment on above: Performed By: #### S ED, CRP, STROKE #### [facility] [address] [place] [address] [place] Floor Installer: Bowen Lemon MD Auto Diff Performed NOT REPORTED Normal [facility] Comment on above: Performed By: #### S ED, CRP, STROKE #### [facility] [address] [place] [address] [place] Floor Installer: Bowen Lemon MD BUN/CRE Ratio NOT REPORTED Normal -20 [facility] Comment on above: Performed By: #### S ED, CRP, STROKE #### [facility] [address] [place] [address] [place] Floor Installer: Bowen Lemon MD Platelet Estimate NOT REPORTED Normal [facility] Comment on above: Performed By: #### S ED, CRP, STROKE #### [facility] [address] [place] [address] [place] Floor Installer: Bowen Lemon MD RBC morphology finding Nom (Bld) NOT REPORTED Normal [facility] Comment on above: Performed By: #### S ED, CRP, STROKE #### [facility] [address] [place] [address] [place] Floor Installer: Bowen Lemon MD Staging: NOT REPORTED Normal [facility] Comment on above: Performed By: #### S ED, CRP, STROKE #### [facility] [address] [place] [address] 10[address] [place] Floor Installer: Bowen Lemon MD Troponin Interp. NOT REPORTED Normal [facility] Comment on above: Performed By: #### S ED, CRP, STROKE #### [facility] [address] [place] [address] [place] Floor Installer: Bowen Lemon MD Troponin T NOT REPORTED Normal <0.03 [facility] Comment on above: Performed By: #### S ED, CRP, STROKE #### [facility] [address] [place] [address] [place] Floor Installer: Bowen Lemon MD WBC Morphology NOT REPORTED Normal [facility] Comment on above: Performed By: #### S ED, CRP, STROKE #### [facility] [address] [place] [address] [place] Floor Installer: Bowen Lemon MD TSH w/reflex to FT4on 2020 TSH Qn 1.04 m[IU]/L Normal 0.30-5.00 [facility] Comment on above: Performed By: #### T SHX, TROPI ####[facility] [address] [place] [address] Lab Director: Bowen Lemon MD TSH with ReflexOrdered By: Milton Osborn on 04-25-2021 TSH Qn 1.04 m[IU]/L [facility] Work Phone: [facility] [employer] Work Phone: Troponinon 04-25-2021 Troponin, High Sens 187 ng/L Critically high 0-22 [facility] Comment on above: Result Comment: High Sensitivity Troponin values cannot be compared with other Troponin methodologies. Patients with high levels of Biotin oral intake (i.e >5mg/day) may have falsely decreased Troponin levels. Samples collected within 8 hours of biotin intake may require additional information for diagnosis. Previous Alert Value Reported Performed By: #### T SHX, TROPI ####[facility] [address] [place] [address] Lab Director: Bowen Lemon MD Troponin Interp. NOT REPORTED Normal [facility] Comment on above: Performed By: #### T SHX, TROPI ####[facility] PlayGhyflplybzuf[address] [place], [place] [phone] Lab Director: Bowen Lemon MD Troponin T NOT REPORTED Normal <0.03 [facility] Comment on above: Performed By: #### T SHX, TROPI ####[facility] [address] [place] [address] Lab Director: Bowen Lemon MD Troponin, High Sens 175 ng/L Critically high 0-22 [facility] Comment on above: Result Comment: High Sensitivity Troponin values cannot be compared with other Troponin methodologies. Patients with high levels of Biotin oral intake (i.e >5mg/day) may have falsely decreased Troponin levels. Samples collected within 8 hours of biotin intake may require additional information for diagnosis. Performed By: #### T ROPI #### [facility] [employer] [address] [place] [address] [place] Floor Installer: Bowen Lemon MD Troponin Interp. NOT REPORTED Normal [facility] Comment on above: Performed By: #### T ROPI #### [facility] [employer] [address] [place] [address] [place] Floor Installer: Bowen Lemon MD Troponin T NOT REPORTED Normal <0.03 [facility] Comment on above: Performed By: #### T ROPI #### [facility] [employer] [address] [place] [address] [place] Floor Installer: Bowen Lemon MD TroponinOrdered By: Jarek mar on 04-25-2021 Interpretation and review of laboratory results Abnormal [employer] Phone: Troponin Interp NOT REPORTED [employer] Phone: Troponin T NOT REPORTED <0.03 ng/mL [employer] Phone: Troponin, High Sensitivity 187 ng/L Critically high 0 - 22 ng/L [employer] Phone: Comment on above: High Sensitivity Troponin values cannot be compared with other Troponin methodologies. Patients with high levels of Biotin oral intake (i.e >5mg/day) may have falsely decreased Troponin levels. Samples collected within 8 hours of biotin intake may require additional information for diagnosis. Previous Alert Value Reported [employer] Phone: TroponinOrdered By: Anali orellana on 04-25-2021 Interpretation and review of laboratory results Abnormal [employer] Phone: Troponin Interp NOT REPORTED [employer] Phone: Troponin T NOT REPORTED <0.03 ng/mL [employer] Phone: Troponin, High Sensitivity 175 ng/L Critically high 0 - 22 ng/L [employer] Phone: Comment on above: High Sensitivity Troponin values cannot be compared with other Troponin methodologies. Patients with high levels of Biotin oral intake (i.e >5mg/day) may have falsely decreased Troponin levels. Samples collected within 8 hours of biotin intake may require additional information for diagnosis. [employer] Phone: Urinalysis Reflex to Culture Ordered By: Jarek Osborn on 04-25-2021 Bilirubin Urine Negative NEGATIVE [employer] Phone: Color, UA YELLOW YELLOW [employer] Phone: Glucose, Ur 1+ Abnormal NEGATIVE [employer] Phone: Interpretation and review of laboratory results Abnormal [employer] Phone: Ketones Ql (U) TRACE Abnormal NEGATIVE [employer] Phone: Leukocyte esterase Test strip Ql (U) Negative NEGATIVE [employer] Phone: Nitrite, Urine Negative NEGATIVE [employer] Phone: pH, UA 7.0 [employer] Phone: Protein, UA 2+ Abnormal NEGATIVE [employer] Phone: Specific [place], UA 1.012 [employer] Phone: Turbidity UA CLEAR CLEAR [facility] [employer] Work Phone: Urinalysis Comments NOT REPORTED [facility] [employer] Work Phone: Urine Hgb TRACE Abnormal NEGATIVE [facility] [employer] Phone: Urobilinogen, Urine Normal Normal [facility] [employer] Phone: [facility] [employer] Work Phone: VITAMIN B12 & FOLATEOrdered By: Sabrina Aguiar on 04-25-2021 Folate 15.2 ng/mL >4.8 [facility] [employer] Phone: [facility] [employer] Phone: XR CHEST PORTABLEon 04-25-20 XR CHEST [...] Marino Abdi DO 04/24/21 Final result Normal [facility] XR SHOULDER LEFT (MIN 2 [...] Marino Abdi DO 04/24/21 Final result Normal [facility] CALCIUM, IONIC (POC)Ordered By: Kranthi Ruvalcaba on 04-24-2021 POC Ionized Calcium 1.30 mmol/L 1.15 - 1.33 mmol/L [employer] Phone: CT CERVICAL SPINE WO CONTRAS TOrdered By: Kranthi Ruvalcaba on 04-24-2021 1. No acute abnormal ity of the cervical spine. 2. C5/C6 moderate, C6/C7 mild central canal stenosis secondary to encroachment by disc osteophyte complex. 3. C3/C4 mild bilateral, C5/C6 moderate bilateral, C6/C7 severe left and moderate right neural foraminal stenosis secondary to encroachment by disc osteophyte complex. [employer] Phone: EXAMINATION: CT OF T HE CERVICAL [...] of significant central canal stenosis/compromise identified. Multilevel ydff-jf-pjqvxlwh facet degenerative hypertrophy is seen. C3/C4 mild bilateral neural foraminal stenosis secondary to encroachment by disc osteophyte complex is seen. SOFT TISSUES: There is no prevertebral soft tissue swelling. [employer] Work Phone: Adam, Mhpn Incoming R adiant Results From [employer]/Minded - 04/24/2021 11:44 PM EDT EXAMINATION: CT [...] of significant central canal stenosis/compromise identified. Multilevel fzcu-xz-xzzerduf facet degenerative hypertrophy is seen. C3/C4 mild [...] secondary to encroachment by disc osteophyte complex. [employer] Phone: [employer] Phone: CT HEAD WO CONTRASTOrdered B y: Kranthi Ruvalcaba on 04-24-2021 No evidence for acut e intracranial hemorrhage, territorial infarction or intracranial mass lesion. Chronic lacunar infarction right pacheco radiata. Mild chronic microangiopathic ischemic disease. Mild generalized volume loss. [employer] Phone: EXAMINATION: CT OF T HE HEAD [...] cells are unremarkable. No fracture is identified. [employer] Phone: Adam, Mhpn Incoming R adiant Results From [employer] - 04/24/2021 10:25 PM EDT EXAMINATION: CT [...] microangiopathic ischemic disease. Mild generalized volume loss. [employer] Phone: [employer] Phone: CTA HEAD NECK W CONTRASTOrde red [...] brain with diffusion-weighted imaging for further evaluation [employer] Phone: EXAMINATION: CTA OF THE HEAD AND [...] radiata remote lacunar infarct is again seen. [employer] Phone: Adam, Mhpn Incoming R adiant Results From [employer] - 04/24/2021 10:51 PM EDT EXAMINATION: CTA [...] brain with diffusion-weighted imaging for further evaluation [employer] Phone: [employer] Phone: Creatinine W/GFR Point of Ca reOrdered By: Kranthi Ruvalcaba on 04-24-2021 Creatinine [Mass/Vol] 0.78 mg/dL 0.51 - 1.19 mg/dL [employer] Phone: GFR Non- >60 >60 mL/min [employer] Phone: GFR/1.73 sq M.predicted MDRD (S/P/Bld) [Vol rate/Area] mL/min/{1.73_m2} >60 mL/min [employer] Phone: GFR/1.73 sq M.predicted MDRD (S/P/Bld) [Vol rate/Area] [employer] Phone: Comment on above: Average GFR for 60-6 9 years old: 85 mL/min/1.73sq m Chronic Kidney Disease: <60 mL/min/1.73sq m Kidney failure: <15 mL/min/1.73sq m eGFR calculated using average adult body mass. Additional eGFR calculator available at: http://www.[employer]/multiple_crcl_2012.htm ELECTROLYTES PLUSOrdered By: Kranthi Ruvalcaba on 04-24-2021 Anion gap [Moles/Vol] 10 mmol/L 7 - 16 mmol/L [employer] Phone: Chloride [Moles/Vol] 103 mmol/L 98 - 10 7 mmol/L [employer] Phone: CO2 [Moles/Vol] 26 mmol/L 22 - 30 mmol/L [employer] Phone: Potassium [Moles/Vol] 3.5 mmol/L 3.5 - 4.5 mmol/L [employer] Phone: Sodium [Moles/Vol] 138 mmol/L 138 - 146 mmol/L [employer] Phone: Hemoglobin and hematocrit, b loodOrdered By: Kranthi Ruvalcaba on 04-24-2021 Hematocrit (Bld) [Volume fraction] 46 % 41 - 53 % [employer] Phone: Hemoglobin (Bld) [Mass/Vol] 15.5 g/dL 13.5 - 17.5 g/dL [employer] Phone: Lactic Acid, POCOrdered By: Kranthi Ruvalcaba on 04-24-2021 POC Lactic Acid 2.14 mmol/L High 0.56 - 1.39 mmol/L [employer] Phone: No Panel InformationOrdered By: Kranthi Ruvalcaba on 04-24-2021 Interpretation and review of laboratory results Abnormal [employer] Phone: [employer] Phone: POCT GlucoseOrdered By: Tuan Ruvalcaba on 04-24-2021 Glucose [Mass/Vol] 140 mg/dL High 74 - 100 mg/dL [employer] Phone: POCT urea (BUN)Ordered By: Kamari Ruvalcaba on 04-24-2021 Urea nitrogen [Mass/Vol] 17 mg/dL 8 - 26 mg/dL [employer] Phone: Sedimentation RateOrdered By : Kranthi Ruvalcaba on 04-24-2021 Interpretation and review of laboratory results Abnormal [employer] Phone: Sed Rate 25 mm High 0 - 20 mm [employer] Phone: [employer] Phone: Venous Blood Gas, POCOrdered By: Kranthi Ruvalcaba on 04-24-2021 Irving Test NOT REPORTED [employer] Phone: FIO2 NOT REPORTED [employer] Phone: HCO3 (Bld) [Moles/Vol] 25.1 mmol/L 22.0 - 29.0 mmol/L [employer] Phone: Mode NOT REPORTED [employer] Phone: Negative Base Excess, Marquis NOT REPORTED [employer] Phone: O2 Device/Flow/% NOT REPORTED [employer] Phone: Oxygen saturation in Blood 81 % 60.0 - 85.0 % [employer] Phone: pCO2, Marquis 41.0 [employer] Phone: pH, Marquis 7.396 [employer] Phone: pO2, Marquis 45.1 [employer] Phone: POC pCO2 Temp NOT REPORTED mm Hg [employer] Phone: POC pH Temp NOT REPORTED [employer] Phone: POC pO2 Temp NOT REPORTED mm Hg [employer] Phone: Positive Base Excess, Marquis 0 [employer] Phone: Pt Temp NOT REPORTED [employer] Phone: Sample Site NOT REPORTED [employer] Phone: Total CO2, Venous NOT REPORTED 23.0 - 30.0 mmol/L [employer] Phone: XR CHEST PORTABLEOrdered By: Kranthi Ruvalcaba on 04-24-2021 Marginal inspiration , without evidence of acute cardiopulmonary disease [employer] Phone: EXAMINATION: ONE XRA Y VIEW OF [...] and vascular ectasia. Osseous structures appear intact. [employer] Phone: Adam, Mhpn Incoming R adiant Results From [employer]ed - 04/24/2021 11:43 PM EDT EXAMINATION: ONE [...] inspiration, without evidence of acute cardiopulmonary disease [employer] Phone: [employer] Phone: XR SHOULDER LEFT (MIN 2 VIEW S)Ordered By: Anali Oreilly on 04-24-2021 No evidence of an ac [place] fracture involving the left shoulder [employer] Phone: EXAMINATION: TWO XRA Y VIEWS OF [...] is intact. Visualized left ribs appear normal. [employer] Phone: Adam, Mhpn Incoming R adiant Results From [employer]ed - 04/24/2021 11:45 PM EDT EXAMINATION: TWO [...] an acute fracture involving the left shoulder [employer] Phone: [employer] Phone: Sreekanth, Yaatedon 05-15 Send Out Report SEE NOTE Normal [facility] Comment on above: Result Comment: (NOT [...] (previously designated C677T) and c.1286A>C (previously designated P5330T) were detected. This genotype may be associated [...] has an effect on cardiovascular disease. The [employer] Practice Guidelines indicate [...] a contributing factor to hyperhomocysteinemia. Variants Tested: c.665C>T(p.Dtu071Xcj) and c.1286A>C(p.Tvw067Ktk). (legacy names C677T and E4880N, respectively). Clinical Sensitivity: Undefined; hyperhomocysteinemia is caused by genetic, physiologic and environmental factors. MTHFR variants are only one contributing factor. Methodology: Polymerase chain reaction (PCR) and fluorescence monitoring. Analytical Sensitivity AND Specificity: 99 percent. Limitations: Only two MTHFR gene variants (c.665C>T and c.1286A>C) are tested. Diagnostic errors can occur due to rare sequence variations. Test developed and characteristics determined by [employer]. See Compliance Statement C: [employer]/ Performed by [employer], [address] [place] [address] [id number] [email or web address], Kristopher Kerr MD, Lab. Director Performed By: #### C RP, TSHX ####[place] [address] [facility] Director: Shreyas Crain DO#### HOCYS, GLYHGB, B12FOL, FA7, FA8, AT3A ####[address] [address] Lab Director: Bowen Lemon MD#### ALPLA, AAPCR, APRTSF, AB2GLY, APROTC, ADYSF, AAPDSR ####[facility] [address] [place] [address] [phone] Lab Director: Kristopher Kerr MD#### LUPPRO ####[facility] [address] [place] [address] [facility] Director: Shreyas Crain DOMercy [address] [address] Lab Director: Bowen Lemon MD#### MISCR ####[address] [address] Lab Director: RADHA Delgado [address] [address] Lab Director: Kristopher Kerr MD Antithrombin III Hafsa 05-13 Antithrombin III Act 78 % Low 83-122 [facility] Comment on above: Result Comment: Patients receiving Hirudin may have a falsely decreased Antitrombin III Activity. Performed By: #### C RP, TSHX ####[facility] Mup[address] [place] [address] Lab Director: Shreyas Crain DO#### HOCYS, GLYHGB, B12FOL, FA7, FA8, AT3A ####[address] [address] Lab Director: Bowen Lemon MD#### ALPLA, AAPCR, APRTSF, AB2GLY, APROTC, ADYSF, AAPDSR ####[facility] [address] [place] [address] Lab Director: Kristopher Kerr MD#### LUPPRO ####[facility] Pnr[address] [place] [address] Lab Director: Shreyas Crain DOMercy [address] [address] Lab Director: Bowen Lemon MD#### MISCR ####[address] [address] Lab Director: Bowen Lemon MDARUMarjorie Pylks[address] [place] [address] Lab Director: Kristopher Kerr MD Factor VII Activityon 2019 Factor VII Activity 253 % High 50-150 [facility] Comment on above: Performed By: #### C RP, TSHX ####[facility] Ghx9021 [place], [place] [phone] Director: Shreyas Crain DO#### HOCYS, GLYHGB, B12FOL, FA7, FA8, AT3A ####[address] [address] Lab Director: Bowen Lemon MD#### ALPLA, AAPCR, APRTSF, AB2GLY, APROTC, ADYSF, AAPDSR ####[facility] [address] [place] [address] [id number] Lab Director: Kristopher Kerr MD#### LUPPRO ####[address] [phone] Director: Shreyas Crain DOMercy [address] [address] Lab Director: Bowen Lemon MD#### MISCR ####[address] [address] Lab Director: RADHA Delgado [address] [phone] Lab Director: Kristopher Kerr MD Factor VIII Activityon 05-13 Factor VIII Activity 73 % Normal 50-150 [facility] Comment on above: Performed By: #### C RP, TSHX ####[address] [phone] Director: Shreyas Crain DO#### HOCYS, GLYHGB, B12FOL, FA7, FA8, AT3A ####[address] [address] Lab Director: Bowen Lemon MD#### ALPLA, AAPCR, APRTSF, AB2GLY, APROTC, ADYSF, AAPDSR ####[facility] [address] [place] [address] [phone] Lab Director: Kristopher Kerr MD#### LUPPRO ####[address] [phone] Director: Shreyas Crain DOMercy [address] [address] Lab Director: Bowen Lemon MD#### MISCR ####[address] [address] Lab Director: RADHA Delgado [address] [phone] Lab Director: Kristopher Kerr MD Lupus Anticoagulanton 2019 Dilute Akil Viper Negative Normal NLUP [facility] Comment on above: Performed By: #### C RP, TSHX ####[facility] Pyh[address] [place], [place] [phone])[phone] Director: Shreyas Crain DO#### HOCYS, GLYHGB, B12FOL, FA7, FA8, AT3A ####[address] [address] Lab Director: Bowen Lemon MD#### ALPLA, AAPCR, APRTSF, AB2GLY, APROTC, ADYSF, AAPDSR ####[facility] [address] [place] [address] [phone] Lab Director: Kristopher Kerr MD#### LUPPRO ####[facility] Yqg5850 [place], [place] [phone] Director: Shreyas Crain DOMercy [address] [address] Lab Director: Bowen Lemon MD#### MISCR ####[address] [address] Lab Director: RADHA Delgado [address] [place] [address] [phone] Lab Director: Kristopher Kerr MD Dmfs-Djzy-Fueujajg 07-25-202 0 Phosphatidylser, IgA 3 U/mL Normal 0-19 [facility] Comment on above: Result Comment: (NOT E) Performed By: [employer] [address] [place] [address] [employer] Operator: Kristopher Kerr MD, MS Performed By: #### C RP, TSHX ####[facility] X[address] [place], [place] [phone] Director: Shreyas Crain DO#### HOCYS, GLYHGB, B12FOL, FA7, FA8, AT3A ####[address] [address] Lab Director: Bowen Lemon MD#### ALPLA, AAPCR, APRTSF, AB2GLY, APROTC, ADYSF, AAPDSR ####[facility] [address] [place] [address] [phone] Lab Director: Kristopher Kerr MD#### LUPPRO ####[facility] F[address] [place], [place] [phone] Director: Shreyas Crain DOMercy [address] [address] Lab Director: Boewn Lemon MD#### MISCR ####[address] [address] Lab Director: RADHA Delgado [address] [address] Lab Director: Kristopher Krer MD Phosphatidylser, IgG 5 U/mL Normal 0-10 [facility] Comment on above: Result Comment: [...] tests. Performed By: #### C RP, TSHX ####[facility] [address] [facility] [place] [address] Lab Director: Shreyas Crain DO#### HOCYS, GLYHGB, B12FOL, FA7, FA8, AT3A ####[address] [address] Lab Director: Bowen Lemon MD#### ALPLA, AAPCR, APRTSF, AB2GLY, APROTC, ADYSF, AAPDSR ####[facility] [address] [place] [address] [phone] Lab Director: Kristopher Kerr MD#### LUPPRO ####[facility] Kbq1057 [facility] [place] [address] Lab Director: Shreyas Crain DOMercy [address] [address] Lab Director: Bowen Lemon MD#### MISCR ####[address] [address] Lab Director: RADHA Delgado [address] [place] [address] Lab Director: Kristopher Kerr MD Phosphatidylser, IgM 6 U/mL Normal 0-24 [facility] Comment on above: Result Comment: [...] tests. Performed By: #### C RP, TSHX ####[facility] Ybk9548 [place] [address] Lab Director: Shreyas Crain DO#### HOCYS, GLYHGB, B12FOL, FA7, FA8, AT3A ####[address] [address] Lab Director: Bowen Lemon MD#### ALPLA, AAPCR, APRTSF, AB2GLY, APROTC, ADYSF, AAPDSR ####[facility] [address] [place] [address] [phone] Lab Director: Kristopher Kerr MD#### LUPPRO ####[facility] [address] [place] [address] Lab Director: Shreyas Crain DOMercy [address] [address] Lab Director: Bowen Lemon MD#### MISCR ####[address] [address] Lab Director: RADHA Delgado [address] [place] [address] Lab Director: Kristopher Kerr MD Fibrinogen Panelon 0 Fibrinogen 394 mg/dL Normal 150-430 [facility] Comment on above: Performed By: #### C RP, TSHX ####[facility] Hng2759 [place] [address] Lab Director: Shreyas Crain DO#### HOCYS, GLYHGB, B12FOL, FA7, FA8, AT3A ####[address] [address] Lab Director: Bowen Lemon MD#### ALPLA, AAPCR, APRTSF, AB2GLY, APROTC, ADYSF, AAPDSR ####[facility] [address] [place] [address] Lab Director: Kristopher Kerr MD#### LUPPRO ####[facility] Tws1737 [facility], [place] [phone] Director: Shreyas Crain DOMercy [address] [phone] Director: Bowen Lemon MD#### MISCR ####[address] [phone] Director: RADHA Delgado [address] [place] [address] Lab Director: Kristopher Kerr MD Fibrinogen Antigen 347 mg/dL Normal 149-353 [facility] Comment on above: Performed By: #### C RP, TSHX ####[facility] Wrh2529 [facility], [place] [phone] Director: Shreyas Crain DO#### HOCYS, GLYHGB, B12FOL, FA7, FA8, AT3A ####[address] [address] Lab Director: Bowen Lemon MD#### ALPLA, AAPCR, APRTSF, AB2GLY, APROTC, ADYSF, AAPDSR ####[facility] [address] [place] [address] Lab Director: Kristopher Kerr MD#### LUPPRO ####[facility] Qph3600 [place] [address] Lab Director: Shreyas Crain DOMercy [address] [address] Lab Director: Bowen Lemon MD#### MISCR ####[address] [address] Lab Director: RADHA Delgado [address] [phone] Lab Director: Kristopher Kerr MD Fibrinogen Ratio 0.88 ratio Normal 0.59-1.23 [facility] Comment on above: Result Comment: (NOT E) INTERPRETIVE INFORMATION: Fibrinogen Antigen/Functional Ratio A ratio of greater than 1.23 is suggestive of a dysfibrogenemia. Performed by [employer], [address] [place] [address] [id number] [email or web address], Kristopher Kerr MD, Lab. Director Performed By: #### C RP, TSHX ####[facility] Myl[address]93 [place] [address] Lab Director: Shreyas Crain DO#### HOCYS, GLYHGB, B12FOL, FA7, FA8, AT3A ####[address] [address] Lab Director: Bowen Lemon MD#### ALPLA, AAPCR, APRTSF, AB2GLY, APROTC, ADYSF, AAPDSR ####[facility] [address] [place] [address] [phone] Lab Director: Kristopher Kerr MD#### LUPPRO ####[facility] Gvo[address] [place], [place] [phone] Director: Shreyas Crain DOMercy [address] [address] Lab Director: Bowen Lemon MD#### MISCR ####[address] [address] Lab Director: RADHA Delgado [address] [address] [facility] Director: Kristopher Kerr MD Protein C Antigenicon 2019 Protein [Mass/Vol] g/dL Normal 63-153 [facility] Comment on above: Result Comment: (NOT E) INTERPRETIVE INFORMATION: Protein C, Total Antigen Patients on warfarin may have decreased protein C values. Patients should be off warfarin therapy for two weeks for accurate measurement of protein C. Access complete set of age- and/or gender-specific reference intervals for this test in the [facility] Test Directory ([facility]). Performed by [employer], [address] [place] [address] [id number] [email or web address], Kristopher Kerr MD, Lab. Director Performed By: #### C RP, TSHX ####[facility] Skx4367 [place] [address] Lab Director: Shreyas Crain DO#### HOCYS, GLYHGB, B12FOL, FA7, FA8, AT3A ####[address] [address] Lab Director: Bowen Lemon MD#### ALPLA, AAPCR, APRTSF, AB2GLY, APROTC, ADYSF, AAPDSR ####[facility] [address] [place] [address] [phone] Lab Director: Kristopher Kerr MD#### LUPPRO ####[facility] Usa2336 [place] [address] lab Director: Shreyas Crain DOMercy [address] [address] lab Director: Bowen Lemon MD#### MISCR ####[address] [address] [facility] Director: CHASE Delgado[address] [address] [facility] Director: Kristopher Kerr MD ACT Protein C Resiston 05-10 Protein [Mass/Vol] 3.80 g/dL Normal >=2.00 [facility] Comment on above: Result Comment: (NOT E) TEST INTERPRETATION: APC Resistance Profile Ratios less than 2.00 suggest APC resistance. This method uses factor V deficient plasma; therefore, APC resistance due to a nonfactor V mutation will not be detected. Extreme factor V deficiency may cause abnormal ratio. Performed by [employer], [address] [place] [address] [id number] [email or web address], Kristopher Kerr MD, Lab. Director Performed By: #### C RP, TSHX #### [facility] Lab [address] [place] [address] [place] Floor Installer: Shreyas Crain DO #### HOCYS, GLYHGB, B12FOL, FA7, FA8, AT3A #### [address] [address] [place] Floor Installer: Bowen Lemon MD #### ALPLA, AAPCR, APRTSF, AB2GLY, APROTC, ADYSF, AAPDSR #### [address] [phone] [place] Floor Installer: Kristopher Kerr MD #### LUPPRO #### [facility] Lab [address] [place] [address] [place] Floor Installer: Shreyas Crain DO [address] [address] [place] Floor Installer: Bowen Lemon MD #### MISCR #### [address] [address] [place] Floor Installer: Bowen Lemon MD [address] [address] [place] Floor Installer: Kristopher Kerr MD [id number] Abon 2019 B2 Glycoprot I, IgG 2 SGU Normal 0-20 [facility] Comment on above: Performed By: #### C RP, TSHX ####[facility] Wtq3619 [place] [address] Lab Director: Shreyas Crain DO#### HOCYS, GLYHGB, B12FOL, FA7, FA8, AT3A ####[facility] Wy[address]fe[address] [place] [address] Lab Director: Bowen Lemon MD#### ALPLA, AAPCR, APRTSF, AB2GLY, APROTC, ADYSF, AAPDSR ####[facility] [address] [place] [address] [phone] Lab Director: Kristopher Kerr MD#### LUPPRO ####[facility] Knf3719 [place] [address] Lab Director: Shreyas Crain DOMercy K[address]ixfl8009 [place] [address] Lab Director: Bowen Lemon MD#### MISCR ####[facility] [address] [place] [address] Lab Director: RADHA Delgado [address] [place] [address] Lab Director: Kristopher Kerr MD B2 Glycoprot I, IgM 1 SMU Normal 0-20 [facility] Comment on above: Result Comment: (NOT E) INTERPRETIVE INFORMATION: X4Pfuouldxjiod I, IgG and IgM Antibody The persistent [...] other criteria phospholipid antibody tests. Performed By: [facility] [address] [place] [address] Flocculator Operator: Kristopher Kerr MD, MS Performed By: #### C RP, TSHX ####[facility] Wii[address] [place] [address] Lab Director: Shreyas Crain DO#### HOCYS, GLYHGB, B12FOL, FA7, FA8, AT3A ####[facility] Bom[address] [place] [address] Lab Director: Bowen Lemon MD#### ALPLA, AAPCR, APRTSF, AB2GLY, APROTC, ADYSF, AAPDSR ####[facility] [address] [place] [address] [phone] Lab Director: Kristopher Kerr MD#### LUPPRO ####[facility] Pvr3116 [place] [address] Lab Director: Shreyas Crain DOMercy [address] [address] Lab Director: Bowen Lemon MD#### MISCR ####[address] [address] Lab Director: RADHA Delgado [address] [address] Lab Director: Kristopehr Kerr MD Lipoprotein (a)on 05-10-2020 Lipoprotein a [Mass/Vol] 72 mg/dL High <=29 [facility] Comment on above: Result Comment: (NOT E) Performed By: [employer] [address] [place] [address] Flocculator Operator: Kristopher Kerr MD, MS Performed By: #### C RP, TSHX #### [facility] Lab [address] [place] [address] [place] Floor Installer: Shreyas Crain DO #### HOCYS, GLYHGB, B12FOL, FA7, FA8, AT3A #### [address] [phone] [place] Floor Installer: Bowen Lemon MD #### ALPLA, AAPCR, APRTSF, AB2GLY, APROTC, ADYSF, AAPDSR #### [facility] [employer] [address] [place] [address] [phone] [place] Floor Installer: Kristopher Kerr MD #### LUPPRO #### [facility] [address] [place] [address] [place] Floor Installer: Shreyas Crain DO [address] [phone] [place] Floor Installer: Bowen Lemon MD #### MISCR #### [address] [phone] [place] Floor Installer: Bowen Lemon MD [address] [phone] [place] Floor Installer: Kristopher Kerr MD Protein S Ag, Freeon 020 GFR/1.73 sq M predicted among non-blacks MDRD (S/P/Bld) [Vol rate/Area] 109 % Normal 74-147 [facility] Comment on above: Result Comment: (NOT [...] reference intervals for this test in the [facility] Test Directory ([facility]ify). Performed by [employer], [address] [place] [address] [id number] [email or web address], Kristopher Kerr MD, Lab. Director Performed By: #### C RP, TSHX #### [facility] [address] [place] [address] [place] Floor Installer: Shreyas Crain DO #### HOCYS, GLYHGB, B12FOL, FA7, FA8, AT3A #### [address] [phone] [place] Floor Installer: Bowen Lemon MD #### ALPLA, AAPCR, APRTSF, AB2GLY, APROTC, ADYSF, AAPDSR #### [address] [phone] [place] Floor Installer: Kristopher Kerr MD #### LUPPRO #### [facility] [address] [place] [address] [place] Floor Installer: Shreyas Crain DO [address] [phone] [place] Floor Installer: Bowen Lemon MD #### MISCR #### [address] [address] [place] Floor Installer: Bowen Lemon MD [address] [address] [place] Floor Installer: Kristopher Kerr MD Lupus Anticoagulanton 2019 Antiphospholipid IgA 2.2 APU Normal <12 [facility] Comment on above: Result Comment: Reference Range: 12 - 15 Equivocal >15 Positive Performed By: #### C RP, TSHX ####[facility] Von5567 [place] [address] Lab Director: Shreyas Crain DO#### HOCYS, GLYHGB, B12FOL, FA7, FA8, AT3A ####[address] [address] Lab Director: Bowen Lemon MD#### ALPLA, AAPCR, APRTSF, AB2GLY, APROTC, ADYSF, AAPDSR ####[facility] [address] [place] [address] [phone] Lab Director: Kristopher Kerr MD#### LUPPRO ####[facility] Eoe5931 [place], [place] [phone] Director: Shreyas Crain DOMercy [address] [address] Lab Director: Bowen Lemon MD#### MISCR ####[address] [address] Lab Director: RADHA Delgado [address] [place] [address] [phone] Lab Director: Kristopher Kerr MD Antiphospholipid IgG 3.5 GPU Normal <20 [facility] Comment on above: Result Comment: Reference Range: 20.0 - 29.9 Low Positive 30.0 - 79.9 Moderate Positive >79.9 High Positive Performed By: #### C RP, TSHX ####[facility] Jmq3109 [place] [address] Lab Director: Shreyas Crain DO#### HOCYS, GLYHGB, B12FOL, FA7, FA8, AT3A ####[facility] P[address]obl[address]51 [place] [address] Lab Director: Bowen Lemon MD#### ALPLA, AAPCR, APRTSF, AB2GLY, APROTC, ADYSF, AAPDSR ####[facility] [address] [place] [address] Lab Director: Kristopher Kerr MD#### LUPPRO ####[facility] Aor2036 [place] [address] Lab Director: Shreyas Crain DOMercy [address] [address] Lab Director: Bowen Lemon MD#### MISCR ####[address] [address] Lab Director: RADHA Delgado [address] [phone] Lab Director: Kristopher Kerr MD Antiphospholipid IgM 5.2 MPU Normal <20 [facility] Comment on above: Result Comment: Reference Range: 20.0 - 29.9 Low Positive 30.0 - 79.9 Moderate Positive >79.9 High Positive Performed By: #### C RP, TSHX ####[facility] [address] [place] [address] Lab Director: Shreyas Crain DO#### HOCYS, GLYHGB, B12FOL, FA7, FA8, AT3A ####[address] [address] Lab Director: Bowen Lemon MD#### ALPLA, AAPCR, APRTSF, AB2GLY, APROTC, ADYSF, AAPDSR ####[facility] [address] [place], [place] [phone] Lab Director: Kristopher Kerr MD#### LUPPRO ####[facility] [address] [place] [address] Lab Director: Shreyas Crain DOMercy [address] [address] Lab Director: Bowen Lemon MD#### MISCR ####[facility] Cobmb[address]obd[address]174 [place] [address] Lab Director: RADHA Delgado [address] [place] [address] [phone] Lab Director: Kristopher Kerr MD Miscel, Refrigeratedon 05-09 Test Name THROMBOTIC RISK PANE L TO [facility] TEST [id number] Normal [facility] Comment on above: Performed By: #### C RP, TSHX ####[facility] Ast4350 [place] [address] Lab Director: Shreyas Crain DO#### HOCYS, GLYHGB, B12FOL, FA7, FA8, AT3A ####[facility] [address] [place] [address] Lab Director: Bowen Lemon MD#### ALPLA, AAPCR, APRTSF, AB2GLY, APROTC, ADYSF, AAPDSR ####[facility] [address] [place] [address] [phone] Lab Director: Kristopher Kerr MD#### LUPPRO ####[facility] Rxu2494 [place], [place] [phone] Director: Shreyas Crain DOMercy [address] [place] [address] Lab Director: Bowen Lemon MD#### MISCR ####[facility] I[address] [place] [address] [phone] Director: RADHA Delgado [address] [place] [address] [phone] Lab Director: Kristopher Kerr MD B12/Folate Panelon 0 Cobalamin (Vitamin B12) [Mass/Vol] 840 pg/mL Normal 232-1245 [facility] Comment on above: Performed By: #### C RP, TSHX #### [facility] Lab [address] [place] [address] [place] Floor Installer: Shreyas Crain DO #### HOCYS, GLYHGB, B12FOL, FA7, FA8, AT3A #### [address] [address] [place] Floor Installer: Bowen Lemon MD #### ALPLA, AAPCR, APRTSF, AB2GLY, APROTC, ADYSF, AAPDSR #### [facility] [address] [place] [address] [place] Floor Installer: Kristopher Kerr MD #### LUPPRO #### [facility] [address] [place] [address] [place] Floor Installer: Shreyas Crain DO [address] [address] [place] Floor Installer: Bowen Lemon MD #### MISCR #### [address] [address] [place] Floor Installer: Bowen Lemon MD [facility] [address] [place], [place] [phone] [place] Floor Installer: Kristopher Kerr MD Folic Acid 5.3 ng/mL Normal >4.8 [facility] Comment on above: Performed By: #### C RP, TSHX #### [facility] [address] [place] [address] [place] Floor Installer: Shreyas Crain DO #### HOCYS, GLYHGB, B12FOL, FA7, FA8, AT3A #### [facility] [address] [place] [address] [place] Floor Installer: Bowen Lemon MD #### ALPLA, AAPCR, APRTSF, AB2GLY, APROTC, ADYSF, AAPDSR #### [facility] [address] [place] [address] [place] Floor Installer: Kristopher Kerr MD #### LUPPRO #### [facility] [address] [place] [address] [place] Floor Installer: Shreyas Crain DO [address] [address] [place] Floor Installer: Bowen Lemon MD #### MISCR #### [address] [address] [place] Floor Installer: Bowen Lemon MD [facility] [address] [place] [address] [place] Floor Installer: Kristopher Kerr MD C-Reactive Proteinon 020 CRP [Mass/Vol] 2.7 mg/L Normal 0.0-5.0 [facility] Comment on above: Performed By: #### C RP, TSHX #### [facility] [address] [place] [address] [place] Floor Installer: Shreyas Crain DO #### HOCYS, GLYHGB, B12FOL, FA7, FA8, AT3A #### [address] [address] [place] Floor Installer: Bowen Lemon MD #### ALPLA, AAPCR, APRTSF, AB2GLY, APROTC, ADYSF, AAPDSR #### [facility] [address] [place] [address] [place] Floor Installer: Kristopher Kerr MD #### LUPPRO #### [facility] Lab [facility] [place] [address] [place] Floor Installer: Shreyas Crain DO [address] [address] [place] Floor Installer: Bowen Lemon MD #### MISCR #### [address] [address] [place] Floor Installer: Bowen Lemon MD [facility] [address] [place] [address] [place] Floor Installer: Kristopher Kerr MD CRP [Mass/Vol] 2.7 mg/L 0 - 5 mg/L [place], [place] DNA Testingon 05-08-2020 DNA Testing (NOTE) Specimen(s) Received: Peripheral blood, FVLI Clinical Information: CVA RESULTS: The Factor V Leiden R506Q Mutation analysis for this patient was sent to [facility]. See separate report. Electronically Signed Out Elba Rodriguez M.D. [facility] [address] [place] [phone] FACTOR V LEIDEN MUTATION ANALYSIS REPORT [place] [facility] Alpesh Dc MD, Elba Rodriguez MD [facility] Comment on above: Performed By: #### C RP, TSHX #### [facility] [address] [place] [address] [place] Floor Installer: Shreyas Crain DO #### HOCYS, GLYHGB, B12FOL, FA7, FA8, AT3A #### [address] [address] [place] Floor Installer: Bowen Lemon MD #### ALPLA, AAPCR, APRTSF, AB2GLY, APROTC, ADYSF, AAPDSR #### [facility] [address] [place] [address] [place] Floor Installer: Kristopher Kerr MD #### LUPPRO #### [facility] Lab [facility] [place] [address] [place] Floor Installer: Shreyas Crain DO [address] [address] [place] Floor Installer: Bowen Lemon MD #### MISCR #### [address] [address] [place] Floor Installer: Bowen Lemon MD [address] [address] [place] Floor Installer: Kristopher Kerr MD DNA Testing (NOTE) Specimen(s) Received: Peripheral blood Clinical Information: CVA RESULTS: The MTHFR Mutation variants c.665C>T and c.1286A>C analysis for this patient was sent to [facility]. See separate report. Electronically Signed Out Elba Rodriguez M.D. [facility] [address] [place] [phone] MTHFR GENE MUTATION ANALYSIS REPORT [place] [facility] Alpesh Dc MD, Elba Rodriguez MD [facility] Comment on above: Performed By: #### C RP, TSHX #### [facility] [address] [place] [address] [place] Floor Installer: Shreyas Crain DO #### HOCYS, GLYHGB, B12FOL, FA7, FA8, AT3A #### [address] [address] [place] Floor Installer: Bowen Lemon MD #### ALPLA, AAPCR, APRTSF, AB2GLY, APROTC, ADYSF, AAPDSR #### [address] [address] [place] Floor Installer: Kristopher Kerr MD #### LUPPRO #### [facility] [place] [address] [place] Floor Installer: Shreyas Crain DO [address] [phone] [place] Floor Installer: Bowen Lemon MD #### MISCR #### [address] [address] [place] Floor Installer: Bowen Lemon MD [address] [phone] [place] Floor Installer: Kristopher Kerr MD DNA Testing (NOTE) Specimen(s) Received: Peripheral blood, PTI Clinical Information: CVA RESULTS: The Prothrombin (F2) c.*97G>A ([id number]) Pathogenic Variant analysis for this patient was sent to [facility]. See separate report. Electronically Signed Out Elba Rodriguez M.D. [facility] [address] [place] [phone] FACTOR II (PROTHROMBIN) MUTATION ANALYSIS REPORT [place] [facility] Alpesh Dc MD, Elba Rodriguez MD [facility] Comment on above: Performed By: #### C RP, TSHX #### [facility] [address] [place] [address] [place] Floor Installer: Shreyas Crain DO #### HOCYS, GLYHGB, B12FOL, FA7, FA8, AT3A #### [address] [address] [place] Floor Installer: Bowen Lemon MD #### ALPLA, AAPCR, APRTSF, AB2GLY, APROTC, ADYSF, AAPDSR #### [address] [phone] [place] Floor Installer: Kristopher Kerr MD #### LUPPRO #### [facility] [address] [place] [address] [place] Floor Installer: Shreyas Crain DO [address] [phone] [place] Floor Installer: Bowen Lemon MD #### MISCR #### [address] [address] [place] Floor Installer: Bowen Lemon MD [address] [phone] [place] Floor Installer: Kristopher Kerr MD ECHO Complete 2D W Doppler W Coloron 05-08-2020 [facility] Transthoracic Echocardiography Report (TTE) Patient Name REHAN Date of Study 05/08/2020 YOEL Bryant Date of 1955 Gender Male Age 64 year(s) Race Room Number Height: 72 inch, 182.88 cm Corporate ID [id number] Weight: 220 pounds, 99.8 kg # Patient Acct [id number] BSA: 2.22 m^2 BMI: 29.84 # kg/m^2 MR # [id number] Risk Manager Yoselyn Pedro Interpreting Physician Kvng Hanna Fellow Referring Nurse Practitioner Interpreting Referring Physician Andreia Ramos Fellow Type of Study TTE procedure:2D Echocardiogram, M-Mode, Doppler, Color Doppler, Bubble Study. Procedure Date Date: 05/08/2020 Start: 10:11 AM Study Location: [facility] Technical Quality: Fair visualization Indications:CVA and Aortic [...] Lateral Wall E' velocity:0.05 m/s [facility], [place] Adam, Mhpn Incoming C ardio Results From Cpacs/Ge - 05/08/2020 11:32 AM EDT [facility] Transthoracic Echocardiography Report (TTE) Patient Name ICJURGEN Date of Study 05/08/2020 YOEL Bryant Date of 1955 Gender Male Age 64 year(s) Race Room Number Height: 72 inch, 182.88 cm Corporate ID [id number] Weight: 220 pounds, 99.8 kg # Patient Acct [id number] BSA: 2.22 m^2 BMI: 29.84 # kg/m^2 MR # [id number] Risk Manager Yoselyn Pedro Interpreting Physician Kvng Hanna Fellow Referring Nurse Practitioner Interpreting Referring Physician Andreia Ramos Fellow Type of Study TTE procedure:2D Echocardiogram, M-Mode, Doppler, Color Doppler, Bubble Study. Procedure Date Date: 05/08/2020 Start: 10:11 AM Study Location: [facility] Technical Quality: Fair visualization Indications:CVA and Aortic [...] Lateral Wall E' velocity:0.05 m/s [facility], [place] Hemoglobin A1Con 05-08-2020 HbA1c (Bld) [Mass fraction] 8.6 % High 4.0-6.0 [facility] Comment on above: Performed By: #### C RP, TSHX #### [facility] [address] [place] [address] [place] Floor Installer: Shreyas Crain DO #### HOCYS, GLYHGB, B12FOL, FA7, FA8, AT3A #### [facility] [address] [place] [address] [place] Floor Installer: Bowen Lemon MD #### ALPLA, AAPCR, APRTSF, AB2GLY, APROTC, ADYSF, AAPDSR #### [facility] [address] [place], [place] [phone] [place] Floor Installer: Kristopher Kerr MD #### LUPPRO #### [facility] [address] [place] [address] [place] Floor Installer: Shreyas Crain DO [address] [address] [place] Floor Installer: Bowen Lemon MD #### MISCR #### [address] [address] [place] Floor Installer: Bowen Lemon MD [facility] [address] [place] [address] [place] Floor Installer: Kristopher Kerr MD HbA1c (Bld) [Mass fraction] 200 mg/dL Normal [facility] Comment on above: Result Comment: The ADA and AACC recommend providing the estimated average glucose result to permit better patient understanding of their HBA1c result. Performed By: #### C RP, TSHX #### [facility] [address] [place] [address] [place] Floor Installer: Shreyas Crain DO #### HOCYS, GLYHGB, B12FOL, FA7, FA8, AT3A #### [facility] [address] [place] [address] [place] Floor Installer: Bowen Lemon MD #### ALPLA, AAPCR, APRTSF, AB2GLY, APROTC, ADYSF, AAPDSR #### [facility] [address] [place], [place] [phone] [place] Floor Installer: Kristopher Kerr MD #### LUPPRO #### [facility] [address] [place] [address] [place] Floor Installer: Shreyas Crain DO [address] [address] [place] Floor Installer: Bowen Lemon MD #### MISCR #### [address] [address] [place] Floor Installer: Bowen Lemon MD [address] [phone] [place] Floor Installer: Kristopher Kerr MD Glucose [Mass/Vol] 200 mg/dL [place], [place] Comment on above: The ADA and AACC rec ommend providing the estimated average glucose result to permit better patient understanding of their HBA1c result. HbA1c (Bld) [Mass fraction] 8.6 % High 4 - 6 % [place], [place] Interpretation and review of laboratory results Abnormal [place], [place] Homocysteineon 05-08-2020 Homocysteine 10.0 umol/L Normal <15.0 [facility] Comment on above: Performed By: #### C RP, TSHX #### [facility] [address] [place] [address] [place] Floor Installer: Shreyas Crain DO #### HOCYS, GLYHGB, B12FOL, FA7, FA8, AT3A #### [address] [address] [place] Floor Installer: Bowen Lemon MD #### ALPLA, AAPCR, APRTSF, AB2GLY, APROTC, ADYSF, AAPDSR #### [facility] [address] [place] [address] [place] Floor Installer: Kristopher Kerr MD #### LUPPRO #### [facility] [address] [place] [address] [place] Floor Installer: Shreyas Crain DO [facility] [address] [place] [address] [place] Floor Installer: Bowen Lemon MD #### MISCR #### [facility] [address] [place] [address] [place] Floor Installer: Bowen Lemon MD [facility] [address] [place], [place] [phone] [place] Floor Installer: Kristopher Kerr MD Homocysteine, Serumon 2019 Homocysteine 10 umol/L <15.0 [place], [place] Lupus Anticoagulanton 2019 aPTT Coag (Bld) [Time] 31.2 s Normal 24.0-36.0 [facility] Comment on above: Result Comment: IV Heparin Therapy Range: 62.0-94.0 Performed By: #### C RP, TSHX ####[facility] Ucd5110 [place] [address] Lab Director: Shreyas Crain DO#### HOCYS, GLYHGB, B12FOL, FA7, FA8, AT3A ####[address] [address] Lab Director: Bowen Lemon MD#### ALPLA, AAPCR, APRTSF, AB2GLY, APROTC, ADYSF, AAPDSR ####[facility] [address] [place], [place] [id number] Lab Director: Kristopher Kerr MD#### LUPPRO ####[facility] Vch2648 [place] [address] Lab Director: Shreyas Crain DOMercy [address] [place] [address] Lab Director: Bowen Lemon MD#### MISCR ####[address] [address] Lab Director: RADHA Delgado [address] [phone] Lab Director: Kristopher Kerr MD INR Coag (PPP) [Relative time] 1.0 {INR} Normal [facility] Comment on above: Result Comment: Non-therapeutic Range: INR = 0.9-1.2 Therapeutic Range: Moderate Anticoagulant Intensity: INR = 2.0-3.0 High Anticoagulant Intensity: INR = 2.5-3.5 Performed By: #### C RP, TSHX ####[facility] Kga1672 [place] [address] Lab Director: Shreyas Crain DO#### HOCYS, GLYHGB, B12FOL, FA7, FA8, AT3A ####[address] [address] Lab Director: Bowen Lemon MD#### ALPLA, AAPCR, APRTSF, AB2GLY, APROTC, ADYSF, AAPDSR ####[facility] [address] [place] [address] [phone] Lab Director: Kristopher Kerr MD#### LUPPRO ####[facility] Lol[address]19 [place] [address] Lab Director: Shreyas Crain DOMercy [address] [address] Lab Director: Bowen Lemon MD#### MISCR ####[address] [address] Lab Director: RADHA Delgado [address] [id number] Lab Director: Kristopher Kerr MD PT Coag (PPP) [Time] 12.7 s Normal 11.8-14.6 [facility] Comment on above: Performed By: #### C RP, TSHX ####[facility] [address], [place] [phone] Director: Shreyas Crain DO#### HOCYS, GLYHGB, B12FOL, FA7, FA8, AT3A ####[facility] [address] [place] [address] Lab Director: Bowen Lemon MD#### ALPLA, AAPCR, APRTSF, AB2GLY, APROTC, ADYSF, AAPDSR ####[facility] [address] [place] [address] [id number] Lab Director: Kristopher Kerr MD#### LUPPRO ####[facility] [address] [place], [place] [address]manny [place], [place] [phone] Director: Shreyas Crain DOMercy [address] [address] Lab Director: Bowen Lemon MD#### MISCR ####[address] [address] Lab Director: RADHA Delgado [address] [place] [phone] Lab Director: Kristopher Kerr MD Lupus Anticoagulant NOT REPORTED Normal [facility] Comment on above: Performed By: #### C RP, TSHX ####[facility] Nxw[address] [place], [place] [phone] Director: Shreyas Crain DO#### HOCYS, GLYHGB, B12FOL, FA7, FA8, AT3A ####[facility] [address] [place] [address] Lab Director: Bowen Lemon MD#### ALPLA, AAPCR, APRTSF, AB2GLY, APROTC, ADYSF, AAPDSR ####[facility] Hq[address] [place], [place] [id number] Lab Director: Kristopher Kerr MD#### LUPPRO ####[facility] Qzh7698 [place] [address] Lab Director: Shreyas Crain DOMercy [address] [place] [address] Lab Director: Bowen Lemon MD#### MISCR ####[facility] [place] [address] Lab Director: RADHA Delgado [address] [place], [place] [phone] Lab Director: Kristopher Kerr MD TSH With Reflex Ft4on 2019 TSH Qn 1.14 m[IU]/L [place], [place] TSH w/reflex to FT4on 2019 TSH Qn 1.14 m[IU]/L Normal 0.30-5.00 [facility] Comment on above: Performed By: #### C RP, TSHX #### [facility] Lab [address] [place] [address] [place] Floor Installer: Shreyas Crain DO #### HOCYS, GLYHGB, B12FOL, FA7, FA8, AT3A #### [facility] [address] [place] [address] [place] Floor Installer: Bowen Lemon MD #### ALPLA, AAPCR, APRTSF, AB2GLY, APROTC, ADYSF, AAPDSR #### [facility] [address] [place], [place] [id number] [place] Floor Installer: Kristopher Kerr MD #### LUPPRO #### [facility] Lab [address] [place] [address] [place] Floor Installer: Shreyas Crain DO [employer] [address] [place] [address] [place] Floor Installer: Bowen Lemon MD #### MISCR #### [employer] [address] [place] [address] [place] Floor Installer: Bowen Lemon MD [address] [address] [place] Floor Installer: Kristopher Kerr MD Vitamin B12 & Folateon 05-08 Cobalamin (Vitamin B12) [Mass/Vol] 840 pg/mL 232 - 1245 pg/mL [facility] [place] Folate 5.3 ng/mL >4.8 [place], [place] CT HEAD WO CONTRASTon 2019 CT [...] Jethro Duran MD 12/12/19 Final result Normal [facility] Previous hyperdensit y appears to have decreased in conspicuity suggesting resolving hemorrhage. The findings were sent to the Radiology Results Communication Center at 9:44 am on 12/12/2019to be communicated to a licensed caregiver. [facility] [place] EXAMINATION: CT OF T HE HEAD WITHOUT [...] visualized skull or soft tissues. [facility] [place] Adam, Mhpn Incoming R adiant Results From [employer] LTDe/Pacs - 12/12/2019 3:40 PM EST EXAMINATION: CT [...] PROVIDED HISTORY: Cerebrovascular accident (CVA), unspecified mechanism ([facility]) TECHNOLOGIST PROVIDED HISTORY: follow up on intracranial [...] 12/12/2019to be communicated to a licensed caregiver. [place], [place] CT HEAD WO CONTRASTon 2019 CT [...] SYSTEM PROVIDED HISTORY: Intraparenchymal hemorrhage of brain ([facility]) TECHNOLOGIST PROVIDED HISTORY: R parietal lobe hemorrhage [...] Beto Lo MD 11/06/19 Final result Normal [facility] CT HEAD WO CONTRASTOrdered B y: Barbara [...] with chronic microvascular white matter ischemic disease. [facility] [employer] Work Phone: EXAMINATION: CT OF T HE [...] of the visualized skull or soft tissues. [facility] Phone: Adam, Mhpn Incoming R adiant Results From [employer]/Pacs - 11/06/2019 1:51 PM EST EXAMINATION: CT [...] with chronic microvascular white matter ischemic disease. [facility] Phone: CT head without contrastOrde red By: Barbara Brit on 10-31-2019 Punctate hyperdense focus in the white matter of the right parietal lobe adjacent to the right lateral ventricle that may represent a small hemorrhage and short-term follow-up CT of the brain is recommended within the next 24 hours. Findings were discussed with Dr. Romo At 9:05 am on 10/31/2019. [facility] Phone: EXAMINATION: CT OF T HE HEAD [...] of the visualized skull or soft tissues. [facility] Phone: Adam, pn Incoming R adiant Results From [employer]/Ginxs - 10/31/2019 9:34 AM EST EXAMINATION: CT [...] Dr. Romo At 9:05 am on 10/31/2019. [facility] Phone: EKG 12 LeadOrdered By: Robert Stephenson on 10-31-2019 Atrial Rate 79 BPM [facility] Phone: P Quincy 54 degrees [facility] Phone: P-R Interval 188 ms [facility] Phone: Q-T Interval 392 ms [facility] Phone: QRS Duration 102 ms [facility] Phone: QTc Calculation (Bazett) 449 ms [facility] Phone: R Quincy 0 degrees [facility] Phone: T Quincy 59 degrees [facility] Phone: Ventricular Rate 79 BPM [facility] Phone: Normal sinus rhythm Normal ECG No previous ECGs available [facility] Phone: Adam, Mhpn Incoming E kg Results From [employer] - 10/31/2019 10:53 AM EST Normal sinus rhythm Normal ECG No previous ECGs available [facility] Phone: POC Glucose FingerstickOrder ed By: Bennie Bosch on 10-31-2019 Glucose [Mass/Vol] 122 mg/dL High 75 - 110 mg/dL [facility] Phone: Interpretation and review of laboratory results Abnormal [facility] Phone: Vital Signs Date Time Vital Sign Value Performing Clinician Facility 09-26-2024 11:44-0500 Body height 182.9 cm Alec Pinzon MD Work Phone: [facility] 09-26-2024 11:44-0500 Body mass index (BMI) [Ratio] 27.67 kg/m2 Alec Pinzon MD Work Phone: [facility] 09-26-2024 11:44-0500 Body temperature 97.5 [degF] Alec Pinzon MD Work Phone: [facility] 09-26-2024 11:44-0500 Body weight 92.53 kg Alec Pinzon MD Work Phone: [facility] 09-26-2024 11:44-0500 Diastolic blood pressure 60 mm[Hg] Alec Pinzon MD Work Phone: [facility] 09-26-2024 11:44-0500 Heart rate 70 /min Alec Pinzon MD Work Phone: [facility] 09-26-2024 11:44-0500 Respiratory rate 18 /min Alec Pinzon MD Work Phone: [facility] 09-26-2024 11:44-0500 SaO2% (BldA) [Mass fraction] 99 % Alec Pinzon MD Work Phone: [facility] 09-26-2024 11:44-0500 Systolic blood pressure 104 mm[Hg] Alec Pinzon MD Work Phone: [facility] 09-06-2024 13:13-0500 Body height 182.9 cm Alec Pinzon MD Work Phone: [facility] 09-06-2024 13:13-0500 Body mass index (BMI) [Ratio] 28.35 kg/m2 Alec Pinzon MD Work Phone: [facility] 09-06-2024 13:13-0500 Body temperature 97.3 [degF] Alec Pinzon MD Work Phone: [facility] 09-06-2024 13:13-0500 Body weight 94.8 kg Alec Pinzon MD Work Phone: [facility] 09-06-2024 13:13-0500 Diastolic blood pressure 58 mm[Hg] Alec Pinzon MD Work Phone: [facility] 09-06-2024 13:13-0500 Heart rate 75 /min Alec Pinzon MD Work Phone: [facility] 09-06-2024 13:13-0500 Respiratory rate 18 /min Alec Pinzon MD Work Phone: [facility] 09-06-2024 13:13-0500 SaO2% (BldA) [Mass fraction] 97 % Alec Pinzon MD Work Phone: [facility] 09-06-2024 13:13-0500 Systolic blood pressure 96 mm[Hg] Alec Pinzon MD Work Phone: [facility] 05-03-2021 07:59-0400 Diastolic blood pressure 74 mm[Hg] Kranthi Ruvalcaba MD Work Phone: [employer] Work Phone: 05-03-2021 07:59-0400 Heart rate 77 /min Kranthi Ruvalcaba MD Work Phone: [employer] Work Phone: 05-03-2021 07:59-0400 Systolic blood pressure 136 mm[Hg] Kranthi Ruvalcaba MD Work Phone: [employer] Work Phone: 05-03-2021 03:43-0400 Body temperature 97.81 [degF] Kranthi Ruvalcaba MD Work Phone: [employer] Work Phone: 05-03-2021 03:43-0400 Respiratory rate 16 /min Kranthi Ruvalcaba MD Work Phone: [employer] Work Phone: 05-03-2021 03:43-0400 SaO2% (BldA) [Mass fraction] 91 % Kranthi Ruvalcaba MD Work Phone: [employer] Work Phone: 05-02-2021 11:11-0400 Body height 182.9 cm Kranthi Ruvalcaba MD Work Phone: [employer] Work Phone: 04-24-2021 21:58-0400 Body mass index (BMI) [Ratio] 30.24 kg/m2 Kranthi Ruvalcaba MD Work Phone: [employer] Work Phone: 04-24-2021 21:58-0400 Body weight 101.15 kg Kranthi Ruvalcaba MD Work Phone: [employer] Work Phone: 10-31-2019 11:07-0500 Diastolic blood pressure 78 mm[Hg] Robert Stephenson MD Work Phone: [employer] Work Phone: 10-31-2019 11:07-0500 Heart rate 80 /min Robert Stephenson MD Work Phone: [employer] Work Phone: 10-31-2019 11:07-0500 Respiratory rate 17 /min Robert Stephenson MD Work Phone: [employer] Work Phone: 10-31-2019 11:07-0500 SaO2% (BldA) [Mass fraction] 92 % Rboert Stephenson MD Work Phone: [employer] Work Phone: 10-31-2019 11:07-0500 Systolic blood pressure 120 mm[Hg] Robert Stephenson MD Work Phone: [employer] Work Phone: 10-31-2019 09:58-0500 Body height 182.9 cm Robert Stephenson MD Work Phone: [employer] Work Phone: 10-31-2019 09:58-0500 Body mass index (BMI) [Ratio] 28.88 kg/m2 Robert Stephenson MD Work Phone: [employer] Work Phone: 10-31-2019 09:58-0500 Body temperature 97.7 [degF] Robert Stephenson MD Work Phone: [employer] Work Phone: 10-31-2019 09:58-0500 Body weight 96.6 kg Robert Stephenson MD Work Phone: [employer] Work Phone: Encounters Encounter Date Encounter Type Care Provider Facility Start: 10-20-2024 End: 10-20-2024 ambulatory JESSA HAMMONDS [facility] Start: 10-20-2024 End: 10-20-2024 ambulatory [facility] Start: 10-17-2024 ambulatory [facility] Start: 10-16-2024 End: 10-16-2024 Refill Alec Pinzon MD Work Phone: [facility] Comment on above: 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 ([facility]/HCC) Start: 09-29-2024 End: 09-29-2024 [facility] Start: 09-27-2024 [facility] Start: 09-26-2024 End: 09-26-2024 Bamboo flowsheet Alec [...] Refill Alec Pinzon MD Work Phone: [facility] Comment on above: 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 (CMS/HCC) Start: 09-16-2024 End: 09-18-2024 Clinisync Result Encounter Generic External Data Provider [facility] External Department Unsolicited Start: 09-16-2024 End: 09-18-2024 Clinisync Result Encounter Generic External Data Provider [facility] External Department Unsolicited Start: 09-06-2024 End: 09-06-2024 Bamboo flowsheet Alec Pinzon MD Work Phone: [facility] Start: 09-06-2024 End: 09-06-2024 [place]amisis flowsheet Alec Pinzon MD Work Phone: [facility] Start: 09-06-2024 End: 09-06-2024 ambulatory ALEC PINZON Not Available Start: 09-06-2024 End: 09-06-2024 Office outpatient visit 25 minutes Alec Pinzon MD Work Phone: [facility] Comment on above: Type 2 diabetes [...] Start: 09-01-2024 End: 09-01-2024 ambulatory ALEKSANDRA RUSSO [facility] Start: 08-30-2024 End: 08-30-2024 ambulatory LASHONDA ROBLES [facility] Start: 08-22-2024 End: 08-22-2024 Flor Pinzon MD Work Phone: [facility] Comment on above: 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 (CMS/HCC) Start: 08-11-2024 End: 08-11-2024 ambulatory [facility] Start: 08-09-2024 ambulatory [facility] Start: 07-26-2024 End: 07-26-2024 Flor Pinzon MD Work Phone: [facility] Comment on above: 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 ([facility]/HCC) Start: 07-19-2024 End: 07-19-2024 ambulatory [facility] Start: 07-18-2024 End: 07-18-2024 ambulatory EVANGELINA [facility] Start: 07-10-2024 [facility] Start: 07-09-2024 Emergency department patient visit [facility] Start: 07-09-2024 Emergency department patient visit [facility] Start: 07-09-2024 End: 07-12-2024 Evaluation and management of inpatient AMBER [facility] Start: 06-30-2024 End: 06-30-2024 ambulatory [facility] Start: 06-29-2024 ambulatory [facility] Start: 06-28-2024 End: 06-28-2024 Flor Pinzon MD Work Phone: [facility] Comment on above: 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 (HCC) ([facility]/HCC) Start: 06-09-2024 End: 06-09-2024 ambulatory [facility] Start: 06-07-2024 End: 06-07-2024 ambulatory WILLIAM GAMBINO [facility] Start: 06-07-2024 ambulatory KAY Edmond [facility] Start: 06-07-2024 End: 06-07-2024 ambulatory [facility] Start: 06-06-2024 End: 06-06-2024 ambulatory [facility] Start: 06-05-2024 End: 06-05-2024 ambulatory JESSA HAMMONDS [facility] Start: 05-19-2024 End: 05-19-2024 ambulatory ALEKSANDRA [facility] Start: 05-18-2024 ambulatory ALEKSANDRA [facility] Start: 05-09-2024 End: 05-09-2024 ambulatory ALEKSANDRA [facility] Start: 04-28-2024 End: 04-28-2024 ambulatory ALEKSANDRA [facility] Start: 04-28-2024 End: 04-28-2024 ambulatory [facility] Start: 04-27-2024 ambulatory ALEKSANDRA [facility] Start: 04-07-2024 End: 04-07-2024 ambulatory ALEKSANDRA [facility] Start: 04-04-2024 ambulatory KAY Edmond [facility] Start: 04-04-2024 End: 04-04-2024 ambulatory JESSA HAMMONDS [facility] Start: 03-27-2024 End: 03-27-2024 ambulatory ALEKSANDRA [facility] Start: 03-22-2024 End: 03-22-2024 ambulatory ALEKSANDRA [facility] Start: 03-17-2024 End: 03-17-2024 ambulatory ALEKSANDRA [facility] Start: 03-16-2024 ambulatory KAY Edmond [facility] Start: 03-15-2024 End: 03-15-2024 ambulatory ALEC PINZON Not Available Start: 03-07-2024 ambulatory SHAGGY [facility] Start: 03-03-2024 End: 03-03-2024 [facility] Start: 02-28-2024 End: 02-28-2024 ambulatory ALEKSANDRA [facility] Start: 02-25-2024 End: 02-25-2024 ambulatory SHAGGY [facility] Start: 02-11-2024 End: 02-11-2024 [facility] Start: 02-08-2024 End: 02-08-2024 ambulatory [facility] Start: 02-04-2024 End: 02-04-2024 ambulatory ALEKSANDRA [facility] Start: 02-03-2024 [facility] Start: 01-14-2024 End: 01-14-2024 ambulatory ALEKSANDRA [facility] Start: 01-13-2024 [facility] Start: 12-28-2023 End: 12-28-2023 ambulatory ALEKSANDRA [facility] Start: 12-24-2023 End: 12-24-2023 ambulatory ALEKSANDRA [facility] Start: 12-23-[address] [facility] Start: 12-23-2023 End: 12-23-2023 ambulatory OBI GAYLE [facility] Start: 12-16-2023 End: 12-16-2023 ambulatory LEDY UP [facility] Start: 12-13-[address] [facility] Start: 12-13-2023 Encounter for other preprocedural examination [facility] Start: 12-09-2023 End: 12-09-2023 ambulatory ALEKSANDRA [facility] Start: 12-09-2023 Encounter for other preprocedural examination [facility] Start: 12-08-2023 ambulatory [facility] Start: 12-08-2023 ambulatory [facility] Start: 12-06-2023 ambulatory [facility] Start: 12-06-2023 ambulatory JESSA UNDERWOOD [facility] Start: 11-26-2023 End: 11-26-2023 ambulatory [facility] Start: 11-23-2023 End: 11-23-2023 ambulatory [facility] Start: 11-17-2023 End: 11-17-2023 ambulatory ALEC PINZON Not Available Start: 11-09-2023 End: 11-10-2023 Evaluation and management of inpatient [facility] Start: 11-04-2023 End: 11-04-2023 ambulatory [facility] Start: 11-04-2023 End: 11-04-2023 Encounter for preprocedural cardiovascular examination [facility] Start: 09-24-2023 End: 10-18-2023 ambulatory ALEC PINZON [facility] Start: 09-17-2023 End: 10-18-2023 ambulatory ALEC PINZON [facility] Start: 11-19-2022 End: 11-20-[address] ALEC [...] Evaluation and management of inpatient ALEC PINZON [facility] Start: 04-24-2021 End: 05-03-2021 Evaluation and management of inpatient Kranthi Ruvalcaba MD Work Phone: [facility] 2 Comment on above: Altered mental statu s, unspecified altered mental status type (Primary Dx); NSTEMI (non-ST elevated myocardial infarction) (HCC) Start: 05-08-2020 End: 05-09-2020 Patient encounter procedure [facility] Start: 05-08-2020 End: 05-08-2020 Subsequent hospital visit by physician Alec CHAVARRIA Laboratory Comment on above: 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) ; 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 ; Diabetes mellitus due to underlying condition with diabetic neuropathy, unspecified whether fdc insulin use (HCC) ; Cerebrovascular accident (CVA) due to embolism of precerebral artery (HCC); Memory impairment Start: 05-08-2020 End: 05-08-2020 Patient encounter procedure [facility] Start: 05-08-2020 End: 05-08-2020 Subsequent hospital visit by physician Tony Eeg Rm 500 [facility] EEG Comment on above: 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 (HCC); Memory impairment 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) ; Cerebrovascular accident (CVA) due to embolism of precerebral artery (HCC) Start: 12-12-2019 End: 12-15-2019 Patient encounter procedure SABRINA OSWALDAN [facility] Start: 12-12-2019 End: 12-14-2019 Subsequent hospital visit by physician [facility] Rm 1 [facility] CT Scan Comment on above: Cerebrovascular acci dent (CVA), unspecified mechanism (HCC) Start: 11-06-2019 End: 11-09-2019 [facility] Start: 11-06-2019 End: 11-08-2019 Subsequent hospital visit by physician Stpatrick 1 [facility] CT Scan Comment on above: Intraparenchymal hem orrhage of brain (HCC) Start: 10-30-2019 End: 10-31-2019 Evaluation and management of inpatient Robert Stephenson MD Work Phone: [facility] 5B NSICU Comment on above: Intraparenchymal hem orrhage of brain (HCC) (Primary Dx) Start: 04-26-2018 End: 04-27-2018 Ambulatory DEFAULT PHYSICIAN Facility:[facility] Start: 05-06-2017 End: 05-07-2017 Ambulatory DEFAULT PHYSICIAN Facility:[facility] Procedures Date Procedure Procedure Detail Performing [...] Comment on above: Performed By: #### P [facility] #### [facility] [address] [place] [address] Dr. Mani Carpio Start: 05-03-2021 Glucose blood [...] Phone: Start: 04-29-2021 Glucose blood reagent strip iNng Wallace MD Work Phone: Start: 04-29-2021 End: [...] Phone: Start: 04-28-2021 End: 04-28-2021 Cardiac catheterization [place] L Blausey [employer] Work Phone: Start: 04-28-2021 Echo tthrc r-t [...] pane l calcium total Andreas Branchjo ann [employer] Work Phone: Start: 04-27-2021 Thromboplastin time partial [...] 03-26-2027 Screening for malignant neoplasm of colon [facility] Start: 05-22-2026 Glaucoma screening Diabetes: Retinopathy Screening [facility] Start: 08-30-2025 Urine screening for protein Diabetes: Urine Protein Screening [facility] Start: 08-09-2025 Urine screening for protein Diabetes: Urine Protein Screening [facility] Start: 07-12-2025 Urine screening for protein Diabetes: Urine Protein Screening [facility] Start: 06-07-2025 Urine screening for protein Diabetes: Urine Protein Screening [facility] Start: 03-06-2025 End: 03-06-2025 Patient encounter procedure 03/06/2025 1:15 PM EDT Office Visit [facility] [address] [place] [id number] Alec Pinzon MD [address] [place] [phone] [facility] Start: 09-26-2024 End: 09-26-2024 Patient encounter procedure [facility] Comment on above: Arrived Start: 09-16-2024 Hemoglobin A1c measurement Diabetes: Hemoglobin A1C [facility] Start: 09-06-2024 End: 09-06-2025 Albumin, urine, random Albumin, urine, random Lab Routine Type 2 diabetes mellitus with hyperglycemia, without long-term current use of insulin ([facility]) Expected: 09/06/2024 (Approximate), Expires: 09/06/2025 [facility] Work Phone: Comment on above: Expected: 09/06/2024 (Approximate), Expi res: 09/06/2025 Start: 09-06-2024 End: 09-06-2025 Hemoglobin A1c/Hemoglobin.total in Blood Hemoglobin A1c Lab Routine Type 2 diabetes mellitus with hyperglycemia, without long-term current use of insulin ([facility]/HCC) Expected: 09/06/2024 (Approximate), Expires: 09/06/2025 [facility] Comment on above: Expected: 09/06/2024 (Approximate), Expi res: 09/06/2025 Start: 09-06-2024 End: 09-06-2024 Patient encounter procedure 09/06/2024 1:00 PM EST Office Visit [facility] [address] [place] [address] Alec Pinzon MD [address] [place] [address] [facility] Start: 06-18-2024 Influenza vaccination Influenza Vaccine (#1) [facility] Start: 06-16-2024 Hemoglobin A1c measurement Diabetes: Hemoglobin A1C [facility] Start: 05-03-2022 Creatinine measurement [facility] Phone: Start: 05-03-2022 Potassium monitoring [facility]: Start: 04-26-2022 Lipid panel Lipid screen [facility] Phone: Start: 04-25-2022 Hemoglobin A1c measurement A1C test (Diabetic or Prediabetic) [facility] Phone: Start: 07-03-2021 End: 07-03-2021 Patient encounter procedure 07/03/2021 Office Visit Neurology Soraya Henning MD [address] [id number] [facility] Start: 06-18-2021 Influenza vaccination Flu vaccine (#1) [employer] Phone: Start: 2020 End: 2020 Office Visit 2020 Office Visit Neurology Andreia Ramos MD [address] [id number] [facility] Start: 06-18-2020 Influenza vaccination Flu vaccine (#1) [facility], [place] Start: 12-21-2019 End: 12-21-2019 Office Visit 12/21/2019 Office Visit Neurology Soraya Henning MD [address] [address] [place] [address] [phone] [employer] [facility] Start: 12-05-2019 End: 12-05-2019 Patient encounter procedure 12/05/2019 Office Visit Neurology Sabrina Aguiar Sa, MD [address] [facility] [address] [place] [address] [phone] [employer] [facility] Start: 11-06-2019 End: 10-31-2020 CT HEAD WO CONTRAST CT HEAD WO CONTRAST Imaging Routine Intraparenchymal hemorrhage of brain (HCC) Expected: 11/06/2019, Expires: 10/31/2020 [employer] Phone: Comment on above: Expected: 11/06/2019, Expires: Start: 10-30-2019 Annual Wellness Visit (AWV) Annual Wellness Visit (AWV) [employer] Phone: Start: 2007 Colon cancer screen colonoscopy Colon cancer screen colonoscopy [employer] Phone: Start: 2007 Screening for malignant neoplasm of colon Colon cancer [facility] [place] Start: 2007 Screening for malignant neoplasm of lung Low dose CT lung screening [employer] Phone: Start: 2007 Shingles Vaccine (1 of 2) Shingles Vaccine (1 of 2) [employer] Phone: Start: 2002 Screening for malignant neoplasm of colon Colon cancer screen colonoscopy [employer] Phone: Start: 1997 Diabetes screen Diabetes screen [employer] Phone: Start: 1976 DTaP/Tdap/Td vaccine (1 - Tdap) DTaP/Tdap/Td vaccine (1 - Tdap) [facility] [place] Start: 1976 Urine screening for protein Diabetes: Urine Protein Screening [facility] Start: 1975 Diabetic microalbuminuria test Diabetic microalbuminuria test [employer] Phone: Start: 1972 HIV screen HIV screen [employer] Phone: Start: 1972 HIV screening HIV screen [facility] [place] Start: 1968 DTaP/Tdap/Td vaccine (1 - Tdap) DTaP/Tdap/Td vaccine (1 - Tdap) [employer] Phone: Start: 1967 Diabetic foot examination Diabetic foot exam [employer] Phone: Start: 1967 Diabetic retinal exam Diabetic retinal exam [employer] Phone: Start: 1967 Glaucoma screening Diabetes: Retinopathy Screening [facility] Start: 1967 Lipid panel Lipid screen [place], [place] Start: 1967 Lipid screen [facility]: Start: 1963 Pneumococcal 0-64 years Vaccine (1 of 1 - PPSV23) Pneumococcal 0-64 years Vaccine (1 of 1 - PPSV23) [facility]: Start: 1963 Pneumococcal 0-64 years Vaccine (1 of 2 - PPSV23) Pneumococcal 0-64 years Vaccine (1 of 2 - PPSV23) [facility] Phone: Start: 1963 Pneumococcal Vaccine: 65+ Years (1 of 2 - PCV) Pneumococcal Vaccine: 65+ Years (1 of 2 - PCV) [facility] Start: 1957 Creatinine measurement [facility] [place] [place] Start: 1957 Creatinine monitoring Creatinine monitoring [facility]: Start: 1957 Hepatitis C screen Hepatitis C screen [facility]: Start: 1957 Hepatitis C screening Hepatitis C screen [place], [place] Start: 1957 Potassium monitoring Potassium monitoring [facility]: Start: 1957 Screening for malignant neoplasm of colon [facility] End: 05-08-2020 Activated Protein C Resistance Activated Protein C Resistance Lab Routine 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) 1 Occurrences starting 05/08/2020 until 05/08/2020 [place], [place] Comment on above: 1 Occurrences starting 05/08/2020 until 05/08/2020 Activated Protein C Resistance Activated Protein C Resistance Lab Routine 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) 05/08/2020 11:16 AM EDT [place], [place] AEROBE ID + SUSCEPT AEROBE ID + SUSCEPT Lab Routine 09/16/2024 10:25 AM EST [facility] End: 05-08-2020 Antithrombin III Activity Antithrombin III Activity Lab Routine 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) 1 Occurrences starting 05/08/2020 until 05/08/2020 [place], [place] Comment on above: 1 Occurrences starting 05/08/2020 until 05/08/2020 Antithrombin III Activity Antith rombin III Activity Lab Routine 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) 05/08/2020 11:16 AM EDT [place], [place] End: 05-04-2021 aPTT in Blood by Coagulation assay APTT Lab Routine Daily for 3 Occurrences starting 05/02/2021 until 05/04/2021, 2 completed [employer] Phone: Comment on above: Daily for 3 Occurrences starting 021 until 05/04/2021, 2 completed Basic Metabolic Pane l w/ Reflex to MG Basic Metabolic Panel w/ Reflex to MG Lab Routine Daily until discontinued starting 04/26/2021, 8 completed [employer] Phone: Comment on above: Daily until discontinued starting 2020, 8 completed End: 11-01-2019 Basic Metabolic Panel w/ Reflex to MG Basic Metabolic Panel w/ Reflex to MG Lab Routine Tomorrow AM for 1 Occurrences starting 11/01/2019 until 11/01/2019 [employer] Phone: Comment on above: Tomorrow AM for 1 Occurrences starting 0 11/01/2019 until 11/01/2019 End: 05-08-2020 Beta-2 Glycoprotein Antibodies Beta-2 Glycoprotein Antibodies Lab Routine 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) 1 Occurrences starting 05/08/2020 until 05/08/2020 [facility] [place] Comment on above: 1 Occurrences starting 05/08/2020 until 05/08/2020 Beta-2 Glycoprotein Antibodies Beta-2 Glycoprotein Antibodies Lab Routine 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) 05/08/2020 11:16 AM EDT [facility] [place] CBC panel - Blood by Automated count CBC Lab Routine Every Other Day until discontinued starting 04/27/2021, 4 completed [employer] Phone: Comment on above: Every Other Day until discontinued start ing 04/27/2021, 4 completed End: 11-01-2019 CBC W Auto Differential panel - Blood CBC auto differential Lab Routine Tomorrow AM for 1 Occurrences starting 11/01/2019 until 11/01/2019 [employer] Phone: Comment on above: Tomorrow AM for 1 Occurrences starting 0 11/01/2019 until 11/01/2019 End: 05-08-2020 Factor 5 Leiden Factor 5 Leiden Lab Routine 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) 1 Occurrences starting 05/08/2020 until 05/08/2020 [facility] [place] Comment on above: 1 Occurrences starting 05/08/2020 until 05/08/2020 End: 05-08-2020 Factor 7 Assay Factor 7 Assay Lab Routine 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) 1 Occurrences starting 05/08/2020 until 05/08/2020 [facility] [place] Comment on above: 1 Occurrences starting 05/08/2020 until 05/08/2020 Factor 7 Assay Factor 7 Assay L ab Routine 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) 05/08/2020 11:16 AM [facility] End: 05-08-2020 Factor 8 Assay Factor 8 Assay Lab Routine 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) 1 Occurrences starting 05/08/2020 until 05/08/2020 [facility] [place] Comment on above: 1 Occurrences starting 05/08/2020 until 05/08/2020 Factor 8 Assay Factor 8 Assay L ab Routine 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) 05/08/2020 11:16 AM [facility], [place] End: 05-08-2020 FIBRINOGEN PANEL FIBRINOGEN PANEL Lab Routine 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) 1 Occurrences starting 05/08/2020 until 05/08/2020 [place], [place] Comment on above: 1 Occurrences starting 05/08/2020 until 05/08/2020 FIBRINOGEN PANEL FIBRINOGEN PANE L Lab Routine 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) 05/08/2020 11:16 AM [facility] [employer] [place] Glucose [Mass/volume ] in Serum or Plasma POCT Glucose Point of Care Testing STAT As Needed until discontinued starting 04/27/2021 [employer] Phone: Comment on above: As Needed until discontinued starting End: 04-25-2021 Hemoglobin A1c/Hemoglobin.total in Blood HEMOGLOBIN A1C Lab Routine One Time for 1 Occurrences starting 04/25/2021 until 04/25/2021 [employer] Phone: Comment on above: One Time for 1 Occurrences starting 06/2021 until 04/25/2021 Initiate Oxygen Ther apy Protocol Initiate Oxygen Therapy Protocol Respiratory Care Routine Daily until discontinued starting 10/31/2019 [employer] Phone: Comment on above: Daily until discontinued starting 2019 LAB SCANNED REPORT LAB SCANNED R EPORT Lab Ordered: 04/30/2021 [employer] Phone: Comment on above: Ordered: 04/30/2021 End: 05-08-2020 Lipoprotein a [Mass/Vol] Lipoprotein A Lab Routine 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) 1 Occurrences starting 05/08/2020 until 05/08/2020 [place], [place] Comment on above: 1 Occurrences starting 05/08/2020 until 05/08/2020 Lipoprotein a [Mass/Vol] Lipopro tein A Lab Routine 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) 05/08/2020 11:16 AM [facility] [employer] [place] Lupus Anticoagulant Lupus Antico agulant Lab Routine 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) 05/08/2020 11:16 AM EDT [facility] [place] Magnesium [Mass/volu me] in Serum or Plasma MAGNESIUM Lab Add-On Daily until discontinued starting 05/02/2021, 2 completed [employer] Phone: Comment on above: Daily until discontinued starting 2020, 2 completed End: 05-08-2020 MTHFR mutation MTHFR mutation Lab Routine 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) 1 Occurrences starting 05/08/2020 until 05/08/2020 [place] Comment on above: 1 Occurrences starting 05/08/2020 until 05/08/2020 Oxygen therapy [[facility]] [employer] Phone: Comment on above: Daily until discontinued starting 2020 Daily until disconti nued starting 05/02/2021 End: 05-08-2020 Phosphatidylserine Antibodies Phosphatidylserine Antibodies Lab Routine 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) 1 Occurrences starting 05/08/2020 until 05/08/2020 [place] Comment on above: 1 Occurrences starting 05/08/2020 until 05/08/2020 Phosphatidylserine Antibodies Phosphatidylserine Antibodies Lab Routine 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) 05/08/2020 11:16 AM EDT [facility] [place] End: 04-24-2021 POC Blood Gas and Chemistry POC Blood Gas and Chemistry Point of Care Testing STAT One Time for 1 Occurrences starting 04/24/2021 until 04/24/2021 [employer] Phone: Comment on above: One Time for 1 Occurrences starting 05/2021 until 04/24/2021 Potassium w/ Reflex to Magnesium Potassium w/ Reflex to Magnesium Lab Routine As Needed until discontinued starting 04/28/2021 [employer] Phone: Comment on above: As Needed until discontinued starting End: 05-08-2020 Protein C Antigen, Total Protein C Antigen, Total Lab Routine 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) 1 Occurrences starting 05/08/2020 until 05/08/2020 [place] Comment on above: 1 Occurrences starting 05/08/2020 until 05/08/2020 Protein C Antigen, Total Protein C Antigen, Total Lab Routine 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) 05/08/2020 11:16 AM EDT [place], [place] End: 05-08-2020 Protein S Antigen, Free Protein S Antigen, Free Lab Routine 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) 1 Occurrences starting 05/08/2020 until 05/08/2020 [place] Comment on above: 1 Occurrences starting 05/08/2020 until 05/08/2020 Protein S Antigen, Free Protein S Antigen, Free Lab Routine 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) 05/08/2020 11:16 AM EDT [place] End: 05-08-2020 Prothrombin Gene Mutation Prothrombin Gene Mutation Lab Routine 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) 1 Occurrences starting 05/08/2020 until 05/08/2020 [place], [place] Comment on above: 1 Occurrences starting 05/08/2020 until 05/08/2020 Immunizations Immunization Date Immunization Notes Care Provider [facility] 11-10-2023 influenza virus vaccine, unspecified formulation Alec Pinzon MD Work Phone: [facility] 10-31-2019 influenza quadrivale nt split vaccine (FLUZONE;FLUARIX;FLULAV AL;AFLURIA) injection 0.5 mL Robert Stephenson MD Work Phone: [facility] Work Phone: 10-31-2019 influenza, injectabl e, quadrivalent, preservative free Robert Stephenson MD Work Phone: [facility] Work Phone: Payers Date Payer Category Payer Medicare [employer] MEDICARE UHC DUAL COMPLETE [id number] 2022-Present [address] [place] [address] [id number] 2022 Medicare (Managed Care) [employer] MEDICARE [id number] 2021 Unknown [id number] 2019 [place] xxxxxxxxxxxx 2019-Present [phone] [address] [place] [address] xxxxxxxxxxxx [id number] 2019 [place] [id number] 2019-Present [phone] [address] [place] [address] [id number] 2019 Medicare MEDICARE MEDICAR E PART A AND B xxxxxxxxxxx 2019-Present [phone] [place] [address] xxxxxxxxxxx [id number] 2019 Medicare [id number] 2019 Medicare MEDICARE MEDICAR E PART A AND B [id number] 2019-Present [phone] [place] [address] [id number] 2017 Unknown [id number] 1959 Medicaid [id number] 1957 Unknown [id number] [id number]. 176 1957 Unknown [id number] 2.16.840.1.311042.3.579.2. 176 1957 Unknown [id number] 2.16.840.1.711147.3.579.2. 176 1957 Unknown [id number] 2.16.840.1.838175.3.579.2. 176 1957 Unknown [id number] 2.16.840.1.973638.3.579.2. 176 1957 Unknown [id number] 2.16.840.1.040584.3.579.2. 175 1957 Unknown [id number] 2.16.840.1.185834.3.579.2. 593 1957 Unknown [id number] 2.16.840.1.835432.3.579.2. 593 1957 Unknown [id number] 2.16.840.1.898061.3.579.2. 593 1957 Unknown [id number] 2.16.840.1.059891.3.579.2. 593 1957 Unknown [id number] 2.16.840.1.904223.3.579.2. 593 1957 Unknown [id number] 2.16.840.1.917734.3.579.2. 593 1957 Unknown [id number] 2.16.840.1.409400.3.579.2. 1286 1957 Unknown [id number] 2.16.840.1.059133.3.579.2. 1286 1957 Unknown [id number] 2.16.840.1.033782.3.579.2. 1259 1957 Unknown [id number] 2.16.840.1.721060.3.579.2. 1259 1957 Unknown [id number] 2.16.840.1.073166.3.579.2. 1259 1957 Unknown [id number] 2.16.840.1.941968.3.579.2. 1259 Unknown Social History Date Type Detail Facility Start: 10-18-1974 End: 11-17-2023 Tobacco smoking status ARIS Current every day smoker [facility] Start: 10-18-1974 History of tobacco use Cigarette Smo ker [employer] Phone: Start: 11-07-2019 End: 03-14-2024 Cigarettes smoked current (pack per day) - Reported [employer] Phone: Start: 1955 Sex Assigned At Not on file [employer] Phone: Start: 04-25-2020 End: 11-17-2023 Tobacco use and exposure Never used [employer] [place] Start: 08-14-2020 Alcohol intake Ex-drinker (finding) [employer] Phone: Exposure to SARS-CoV -2 (event) Not sure [employer] Start: 03-14-2024 End: 09-26-2024 Social connection and isolation panel [facility] Attends [employer] Not on file [facility] Do you belong to any clubs or organizations such as jewish groups, unions, fraternal or athletic groups, or [...] Equipment Origin al Text Equipment Identifier Dates [id number] Start: 05-26-2023 Clinical Notes 10-31-2019 to 09-26-2024 [...] 69 y.o. male who presents for Follow-up ([facility] er f/u). Hospital follow up from [...] 10 MG tablet documented in this encounter [facility] 09-06-2024 History of Present illness Narrative Associated Problem(s): GERD (gastroesophageal reflux disease) Symptoms controlled with protonix and continue. Associated Problem(s): Insomnia Sleeping well with medication and continue. Associated Problem(s): Type 2 diabetes mellitus with diabetic polyneuropathy, without long-term current use of insulin ([facility]) Symptoms tolerable with medication and continue. 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 Script [...] ADLs to patient. documented in this encounter [facility] 06-30-2024 Note [facility] 06-30-2024 Note [facility] 06-30-2024 Note [facility] 06-30-2024 Note [facility] 06-29-2024 Note Fluids for rising cr eat and eval his thyroid dysfunction at visit with provider .thanks Aleksandra Russo MD [facility] 06-28-2024 Note Relevant Hx: Course: 03/16/24 HgA1C 8.9 Daily Update: Today's Plan: Continue to follow with PCP for management [facility] 06-28-2024 Note [facility] 06-28-2024 Note Port placed by Dr Kary cespedes 12/16/[address] [facility] 06-28-2024 Note [facility] 06-28-2024 Note [facility] 06-28-2024 Note [facility] 06-28-2024 Note [facility] 06-28-2024 Note [facility] 06-28-2024 Note [facility] 06-28-2024 Note [facility] 06-09-2024 Note [facility] 06-07-2024 Note [facility] 06-07-2024 Note Patient has an upcom ing provider visit to address upcoming labs Aleksandra Russo MD [facility] 06-07-2024 Note [facility] 05-19-2024 Note [facility] 05-19-2024 Note [facility] 05-19-2024 Note Please let patient k now and follow his tsh and others. Thanks Aleksandra Russo MD [facility] 05-18-2024 Note With hypercalcemia, please work up and also will get MRI as rec by ortho. Aleksandra Russo MD [facility] 05-18-2024 Note Jessa, Please ch erica with patient at visit on the mri back that ortho were recommending and if not ordered by them would please need ordered Thanks Aleksandra Russo MD [facility] 05-09-2024 Note [facility] 04-28-2024 Note [facility] 04-28-2024 Note [facility] 04-28-2024 Note [facility] 04-04-2024 Note Please also refer to ortho for eval of the compression fracture . Just give him a head's up too pls Thanks Aleksandra Russo MD [facility] 04-04-2024 Note [facility] 03-27-2024 Note Keep planned follow up and no contrast due to kidney dysfunction rcc adjuvant Aleksandra Russo MD [facility] 03-22-2024 Note [facility] 03-07-2024 Note [facility] 03-03-2024 Note [facility] 02-25-2024 Note Likely creat closer to his new baseline after nephrectomy. Will also keep our urology colleagues in the loop and patient is going to be seeing nephrology next month Aleksandra Russo MD [facility] 02-11-2024 Note [facility] 02-08-2024 Note [facility] 01-14-2024 Note [facility] 12-28-2023 Note [facility] 12-23-2023 Note Likely new baseline. O to start as discussed C1D1 immunotherapy 12/24/2023 Please give him an appointment with nephrology thank Aleksandra Russo MD [facility] 12-23-2023 Note [facility] 12-13-2023 Note [facility] 12-13-2023 Note Thanks for setting u p with nephrology and Urology Will delay planned start of adjuvant IO by a week while waiting on optimization of his kidney function can you please add spep /upep/IFIX and Ufix Thanks so much Aleksandra Russo MD [facility] 12-09-2023 Note Pt was given 1 liter of 0.9% NS PIV over 1hr 45 mins then a cmp was drawn off of pt's #22 IV in Rt fa. [facility] 12-08-2023 Note [facility] 12-08-2023 Note [facility] 12-06-2023 Note [facility] 11-26-2023 Note [facility] 11-23-2023 Note [facility] 11-10-2023 Note [facility] 11-10-2023 Note [facility] 11-09-2023 Note Peripheral IV Date/Time: 11/09/2023 8:55 AM Inserted by: Julia Albrecht MD Placement Needle size: 14 G Laterality: right Location: forearm Site prep: alcohol Technique: anatomical landmarks Attempts: 2 [facility] 11-09-2023 Note [facility] 11-09-2023 Note [facility] 11-04-2023 Note [facility] 10-27-2023 Note [facility] 09-26-2022 Note Indication: Abdomina l [...] authenticated by: MELODIE DUNLAP Date: 2022-09-26 14:17 [facility] 05-03-2021 History of Present illness Narrative Images from the original note were not included. [employer] Progress Note Date: 05/02/2021 Patient name: Yoel [...] vessel has 40% stenosis OM has proximal CLERICAL ASSISTANT and supplied by [employer] on Mid [...] CAD s/p stents to RCA and circumflex, CLERICAL ASSISTANT obtuse branch at [facility] years ago 3. Thoracic aortic aneurysm [...] sign off. Follow up in 2 weeks [employer] [phone] Images from the original note were not [...] assess Fluid Accumulation: No significant fluid accumulation Bench Lathe Operator Strength: Not Performed Estimated Daily Nutrient Needs: Energy (kcal): 1.2-1.3 ~> 6209-5827 kcals/d; Weight Used for Energy Requirements: Current Protein (g): 1.2-1.3 gm/kg ~> 97-105 gms/d; Weight Used for Protein Requirements: [place] Fluid (ml/day): 2700 mLs/d OR per MD discretion; Method Used for Fluid Requirements: (NCM) Nutrition Related Findings: BM 04/30; glucose 163; meds reviewed Wounds: None Current Nutrition Therapies: Diet NPO Anthropometric Measures: Height: 6' (182.9 cm) Current Body Weight: 223 lb (101.2 kg) (stated) [place] Body Weight: 178 lbs; % [place] Body Weight 125.3 % BMI: 30.2 BMI [...] Discharge Planning: Too soon to determine Contact: [phone] Images from the original note were not included. [employer] Progress Note Date: 05/02/2021 Patient name: Yoel [...] CAD s/p stents to RCA and circumflex, CLERICAL ASSISTANT obtuse branch at [facility] years ago 3. Thoracic aortic aneurysm [...] Neurology approved for patient to go on fdc DAPT. 6. Plan for PCI of LCx today. Patient has been NPO since midnight. I have discussed risks (including but not limited to vascular injury, infection, hematoma, contrast induced kidney dysfunction, CVA and AK) with both patient and his . The benefits and alternatives discussed in detail. All questions answered. Patient agrees to proceed. [employer] [phone] Images from the original note were not included. [facility] Internal Medicine Teaching Residency Program Inpatient Daily Progress Note Patient: Yoel Van Date of : 1955 Acct: [id number] Room: Admit date: 04/24/2021 Today's date: 05/02/21 [...] GI ppx: Protonix PT/OT/SW- Onboard Discharge Planning: flight operations manager consulted, will follow up Gee Parnell MD Internal Medicine Resident, PGY-1 [facility]; [place], [place] 05/02/2021, 7:40 AM Attending Physician Statement [...] not included. [facility] Internal Medicine Teaching Residency Program Inpatient Daily Progress Note Patient: Yoel Van Date of : 1955 Acct: [id number] Room: Admit date: 04/24/2021 Today's date: 05/01/21 [...] chloride heparin (PORCINE) Infusion 15 Units/kg/hr (05/01/21 8005) PRN Medicationspotassium chloride, 40 mEq, PRN Or [...] stroke (HCC) NSTEMI (non-ST elevated myocardial infarction) ([facility]) Altered mental status DM (diabetes mellitus), [...] been improving NSTEMI (non-ST elevated myocardial infarction) ([facility]) Plan: Troponins 180 --> 175 --> 187 [...] GI ppx: Protonix PT/OT/SW- Onboard Discharge Planning: flight operations manager consulted, will follow up Gee Parnell MD Internal Medicine Resident, PGY-1 [facility]; [place], [place] 05/01/2021, 2:58 PM Attending Physician Statement [...] resumed Discharge planning initiated Physical Therapy Facility/Department: [facility] 2 Initial Assessment NAME: Yoel Van : [...] diagnosis of NSTEMI (non-ST elevated myocardial infarction) ([facility]) was also pertinent to this visit. 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 Nellie Ceramic Tile Installation Helper Progress Note Date: 05/01/2021 Patient name: Yoel [...] CAD s/p stents to RCA and circumflex, CLERICAL ASSISTANT obtuse branch at [facility] years ago 3. Thoracic aortic aneurysm [...] neurology approval for patient to go on fdc DAPT prior to proceeding with high risk PCI. 6. If okay will plan for PCI of LCx tomorrow per Dr. Norton review of films and plan for staged approach. Patient and his were updated on a possible staged approach and they are agreeable with the plan. 7. Will make NPO after midnight. Prairie [employer]amic Tile Installation Helper [phone] Images from the original note were not [...] INR 1.0 04/24/2021 LABA1C 7.5 (H) 04/25/2021 [id number] 594 04/25/2021 Diagnostic data reviewed: CT HEAD [...] to ensure the accuracy of this automated medical biller, some errors in medical biller may have occurred. Associated attestation - Elisa Larsen MD - 05/01/2021 7:44 PM EDT Attending Physician Statement I have discussed the case of Yoel Van including pertinent history and exam findings with the resident/ TELEVISION ACTOR. I have seen and examined the patient and the burnett elements of the encounter have been performed by me. I agree with the assessment, plan and orders as documented by the resident or TELEVISION ACTOR with changes made to the note. Briefly, [...] you. Elisa Larsen MD 05/01/2021 7:41 PM [facility] Neurology IN-PATIENT SERVICE [facility] HISTORY AND PHYSICAL EXAMINATION Date: 04/30/2021 Patient name: Yoel Van Date of admission: 04/24/2021 9:50 PM Account: [id number] Date of : 1955 PCP: Alec Pinzon [...] Right achilles: 2+ Left achilles: 2+ Right web press operator assistant: 2+ Left web press operator assistant: 2+ Investigations: Laboratory Testing: Recent Results (from [...] [E83.42] 04/27/2021 NSTEMI (non-ST elevated myocardial infarction) ([facility]) [I21.4] 04/25/2021 Altered mental status [R41.82] Acute ischemic stroke ([facility]) [I63.9] 65 y.o. male who presents [...] history and exam findings with the resident/ TELEVISION ACTOR. I have seen and examined the patient and the burnett elements of the encounter have been performed by me. I agree with the assessment, plan and orders as documented by the resident or TELEVISION ACTOR with changes made to the note. Briefly, [...] not included. [facility] Internal Medicine Teaching Residency Program Inpatient Daily Progress Note Patient: Yoel Van Date of : 1955 Acct: [id number] Room: [facility]- Admit date: 04/24/2021 Today's date: 04/30/21 Number [...] GI ppx: Protonix PT/OT/SW- Onboard Discharge Planning: flight operations manager consulted, will follow up Gee Parnell MD Internal Medicine Resident, PGY-1 [facility]; [place], [place] 04/30/2021, 7:23 AM Attending Physician Statement [...] the original note were not included. [employer] Ceramic Tile Installation Helper Progress Note Date: 04/30/2021 Patient name: Yoel Van Date of admission: 04/24/2021 9:50 PM Date of : 1955 PCP: Alec Pinzon MD Reason for Admission: NSTEMI (non-ST elevated myocardial infarction) ([facility]) [I21.4] Subjective: Postop day 2 of [...] CAD s/p stents to RCA and circumflex, CLERICAL ASSISTANT obtuse branch at [facility] years ago 3. Thoracic aortic aneurysm [...] With changes made to the note. . Prairie Ceramic Tile Installation Helper [phone] Images from the original note were not [...] the original note were not included. Nellie Ceramic Tile Installation Helper Progress Note Date: 04/29/2021 Patient name: Yoel [...] CAD s/p stents to RCA and circumflex, CLERICAL ASSISTANT obtuse branch at [facility] years ago Thoracic aortic aneurysm about [...] Cardiovascular Fellow PGY-4 04/29/2021, 9:28 AM Attending Nursing Assistant Addendum: I have reviewed and performed the history, physical, subjective, objective, assessment, and plan with the student/resident/fellow/ELECTRICIAN MANAGER and agree with the note. I performed [...] questions. Marcello Cole DO, CONCHIS, JOANNA RUIZ [employer] Tile Installation Helper [facility] Images from the original note were not included. [facility] Occupational Therapy Not Seen Note DATE: 04/29/2021 NAME: Yoel Van : 1955 Patient not seen this date for Occupational Therapy due to: Other: await cardiothoracic surgery consult Next Scheduled Treatment: check back 04/30/2021 [facility] Neurology IN-PATIENT SERVICE [facility] HISTORY AND PHYSICAL EXAMINATION Date: 04/29/2021 Patient name: Yoel Van Date of admission: 04/24/2021 9:50 PM Account: [id number] Date of : 1955 PCP: Alec Pinzon [...] Right achilles: 2+ Left achilles: 2+ Right web press operator assistant: 2+ Left web press operator assistant: 2+ Investigations: Laboratory Testing: Recent Results (from [...] [E83.42] 04/27/2021 NSTEMI (non-ST elevated myocardial infarction) ([facility]) [I21.4] 04/25/2021 Altered mental status [R41.82] Acute ischemic stroke ([facility]) [I63.9] 65 y.o. male who presents [...] history and exam findings with the resident/ TELEVISION ACTOR. I have seen and examined the patient and the burnett elements of the encounter have been performed by me. I agree with the assessment, plan and orders as documented by the resident or TELEVISION ACTOR with changes made to the note. Briefly, [...] not included. [facility] Internal Medicine Teaching Residency Program Inpatient Daily Progress Note Patient: Yoel Van Date of : 1955 Acct: [id number] Room: [address] [place] [address] Admit date: 04/24/2021 Today's date: 04/29/21 Number [...] GI ppx: Protonix PT/OT/SW- Onboard Discharge Planning: flight operations manager consulted, will follow up Gee Parnell MD Internal Medicine Resident, PGY-1 [facility]; [place], [place] 04/29/2021, 7:58 AM Patient seen and [...] imaging in the future Infection Control Recommendations: [place] precautions Discharge Planning: Patient will need Midline [...] No new imaging Cultures: Culture, Blood 1 [[id number]] Collected: 04/25/212032 Order Status: Completed Specimen: Blood Updated: 04/28/21918 Specimen Description .BLOOD Special Requests R ARM 1 ML Culture NO GROWTH 3 DAYS Culture, Blood 1 [[id number]] Collected: 04/25/212032 Order Status: Completed Specimen: Blood Updated: 04/28/21918 Specimen Description .BLOOD Special Requests L ARM 2 ML Culture NO GROWTH 3 DAYS COVID-19, Rapid [[id number]] Collected: 04/25/21 004 Order Status: Completed Specimen: [...] management decisions. Fact sheet for Healthcare Providers: https://www.fda.gov/media/099433/d ownload Fact sheet for Patients: https://www.fda.gov/media/862803/d ownload Methodology: Isothermal Nucleic Acid Amplification Medications: [...] [facility] Zandra Pink MD [facility] OFFICE: Thank you for allowing us to [...] original note were not included. Occupational Therapy [facility] Occupational Therapy Not Seen Note DATE: 04/28/2021 NAME: Yoel Van : 1955 Patient not seen this date for Occupational Therapy due to: Surgery/Procedure: cardiac cath Next Scheduled Treatment: 04/29 Echo completed in the echo lab Images from the original note were not included. [employer]irie [employer] Tile Installation Helper Pre-Procedure Conscious Sedation Data Pre Procedure Conscious Sedation Data: ASA Class: [] I [x] II [] III [] IV Mallampati Class: [] I [x] II [] III [] IV Jing Levy MD Fellow Cardiovascular Disease [facility] Images from the original note were not included. [employer] Tile Installation Helper Progress Note Date: 04/28/2021 Patient name: Yoel [...] CAD s/p stents to RCA and circumflex, CLERICAL ASSISTANT obtuse branch at [facility] man years ago 3. Thoracic aortic [...] of Treatment: 1. NSTEMI with elevated troponin. [phone] Plan for cardiac cath today per Dr Dumont. I have discussed risks (including but not limited to vascular injury, infection, hematoma, contrast induced kidney dysfunction, CVA and AK), benefits, alternatives in detail. All questions answered. Patient agrees to proceed. cytogenetics laboratory manager update. 2. Awaiting ECHO with Bubble study. [...] Rest of care managed per Primary Team. Prairie Ceramic Tile Installation Helper [facility]. [phone] Report given to Radha [facility] Neurology IN-PATIENT SERVICE [facility] HISTORY AND PHYSICAL EXAMINATION Date: 04/28/2021 Patient name: Yoel Van Date of admission: 04/24/2021 9:50 PM Account: [id number] Date of : 1955 PCP: Alec Pinzon MD Room: [address] [place] [address] Code Status: Full Code Chief Complaint: Chief [...] Right achilles: 2+ Left achilles: 2+ Right web press operator assistant: 2+ Left web press operator assistant: 2+ Investigations: Laboratory Testing: Recent Results (from [...] [I21.4] 04/25/2021 Altered mental status [R41.82] Stroke ([facility]) [I63.9] 65 y.o. male who presents [...] history and exam findings with the resident/ TELEVISION ACTOR. I have seen and examined the patient and the burnett elements of the encounter have been performed by me. I agree with the assessment, plan and orders as documented by the resident or TELEVISION ACTOR with changes made to the note. Briefly, [...] not included. [facility] Internal Medicine Teaching Residency Program Inpatient Daily Progress Note Patient: Yoel Van Date of : 1955 Acct: [id number] Room: 1015/1015-01 Admit date: 04/24/2021 Today's date: [...] chloride heparin (PORCINE) Infusion 15.78 Units/kg/hr (04/28/21 0680) PRN Medicationspotassium chloride, 40 mEq, PRN Or [...] GI ppx: Protonix PT/OT/SW- Onboard Discharge Planning: flight operations manager consulted, will follow up Gee Parnell MD Internal Medicine Resident, PGY-1 [facility]; [place], [place] 04/28/2021, 11:27 AM Attending Physician Statement [...] not included. [facility] Internal Medicine Teaching Residency Program Inpatient Daily Progress Note Patient: Yoel Van Date of : 1955 Acct: [id number] Room: 0542/0542-01 Admit date: 04/24/2021 Today's date: [...] been improving NSTEMI (non-ST elevated myocardial infarction) ([facility]) Plan: Troponins 180 --> 175 --> 187 [...] GI ppx: Protonix PT/OT/SW- Onboard Discharge Planning: flight operations manager consulted, will follow up Gee Dewey MD Internal Medicine Resident, PGY-2 [facility]; [place], [place] 04/27/2021, 1:38 PM Attending Physician Statement [...] deficit. The risk of intracranial hemorrhage versus AK was discussed with the patient in regards [...] Right achilles: 2+ Left achilles: 2+ Right web press operator assistant: 2+ Left web press operator assistant: 2+ Lab Results: CBC: Recent Labs 04/24/21 [...] INR 1.0 04/24/2021 LABA1C 7.5 (H) 04/25/2021 [id number] 594 04/25/2021 No results found for: PHENYTOIN, [...] to follow Fanta Levy MD Attending Neurologist [facility] Images from the original note were not included. Nellie Ceramic Tile Installation Helper Progress Note Date: 04/27/2021 Patient name: Yoel Van Date of admission: 04/24/2021 9:50 PM Date of : 1955 PCP: Alec Pinzon MD Reason for Admission: NSTEMI (non-ST elevated myocardial infarction) ([facility]) [I21.4] Subjective: Clinical Changes /Abnormalities: Patient [...] CAD s/p stents to RCA and circumflex, CLERICAL ASSISTANT obtuse branch at [facility] man years ago 3. Thoracic aortic [...] of Treatment: 1. NSTEMI with elevated troponin. [phone] Plan for cardiac cath on Wednesday per [...] neurology will discuss with cardiology tomorrow. Ballard Ceramic Tile Installation Helper [facility]. [phone] Paged Neurology at 22:19 regarding heparin drip and whether or not patient is appropriate for heparin boluses or just adjust medication through infusion. Messaged with Leonardo Jeter MD who deferred to Primary team. I then messaged the on-call Internal Medicine Sales Order Specialist who deferred to Cardiology. I sent Cardiology [...] use, normal respirations Neuro: Difficult coordination with [id number]. No arm drift. BUE and BLE with [...] patients neurologic status Jair Jaeger DO, PGY-5 [facility] Orthopedic Surgery 1:33 PM 04/26/21 Associated [...] intact to light touch Does well with [id number]-[id number]-[id number] testing. Gait testing deferred. Imaging: I personally [...] MRI at L5-S1 is felt to be shared services representative of infection I would recommend an IR biopsy for culture, though he does not seem to be symptomatic and his WBC count is normal. Physician Progress Note PATIENT: YOEL VAN CSN #: [id number] : 1955 ADMIT DATE: 04/24/2021 9:50 PM [...] signed by: GEE PARNELL 04/26/2021 8:22 AM [facility] Neurology IN-PATIENT SERVICE [facility] HISTORY AND PHYSICAL EXAMINATION Date: 04/26/2021 Patient name: Yoel Van Date of admission: 04/24/2021 9:50 PM Account: [id number] Date of : 1955 PCP: Alec Pinzon MD Room: [address] [place] [address] Code Status: Full Code Chief Complaint: Chief [...] Right achilles: 2+ Left achilles: 2+ Right web press operator assistant: 2+ Left web press operator assistant: 2+ Investigations: Laboratory Testing: Recent Results (from [...] NEGATIVE Ketones, Urine TRACE (A) NEGATIVE Specific [place], UA 1.012 1.005 - 1.030 Urine Hgb [...] ms QTc Calculation (Bazett) 462 ms P Quin[place] 48 degrees R Quincy -20 degrees T Quin[place] 89 degrees Assessment : Primary Problem <principal [...] to follow Fanta Levy MD Attending Neurologist [facility] Images from the original note were not included. [facility] Internal Medicine Teaching Residency Program Inpatient Daily Progress Note Patient: Yoel Van Date of : 1955 Acct: [id number] Room: 0542/0542-01 Admit date: 04/24/2021 Today's date: [...] chloride heparin (PORCINE) Infusion 13.783 Units/kg/hr (04/25/21 9288) PRN Medicationslabetalol, 20 mg, Q4H PRN sodium [...] MRI today NSTEMI (non-ST elevated myocardial infarction) ([facility]) Plan: Troponins 180 --> 175 --> 187 [...] gtt GI ppx: Protonix PT/OT/SW Discharge Planning: flight operations manager consulted, will follow up Gee Parnell MD Internal Medicine Resident, PGY-1 [facility]; [place], [place] 04/26/2021, 3:10 AM Attending Physician Statement [...] noticed. MRI pending. It was reported to contract writer that MRI's were attempted earlier in [...] at this time. documented in this encounter [employer] Phone: 05-02-2021 Hospital Discharge instructions Ana Chery [...] Jessica Garcia Mobile Relation: Spouse Preferred language: Somali Glue Mounter Operator needed? No Past Surgical History: Past Surgical [...] impairment R41.3 NSTEMI (non-ST elevated myocardial infarction) ([facility]) I21.4 Altered mental status R41.82 DM (diabetes mellitus), type 2 ([facility]) E11.9 Discitis of lumbosacral region M46.47 [...] MENTAL STATUS:} IV Access: { SYDNEE IV ACCESS:847415352} Nursing Mobility/ADLs: Walking {CHP DME ADLs:344230589} Transfer {CHP DME ADLs:569748426} Bathing {CHP DME ADLs:076121717} Dressing {CHP DME ADLs:808489904} Toileting {P DME ADLs:613597781} Feeding {P DME ADLs:842827830} Ground Worker {P DME ADLs:138657452} Med Delivery { SYDNEE MED Delivery:360686784} Wound Care Documentation and Therapy: Elimination: Continence: Bowel: {YES / NO:} Bladder: {YES / NO:} Urinary Catheter: {Urinary Catheter:160502590} Colostomy/Ileostomy/Ileal Conduit: {YES / NO:} Date of Last BM: Intake/Output Summary (Last 24 hours) at 05/02/2021 1719 Last data filed at 05/02/2021 0736 Gross per 24 hour Intake Output 1600 ml Net -1600 ml I/O last 3 completed shifts: In: 44.4 [I.V.:44.4] Out: 2390 [Urine:2390] Safety Concerns: { SYDNEE Safety Concerns:985268435} Impairments/Disabilities: { SYDNEE Impairments/Disabilities:045279543 } Nutrition Therapy: Current Nutrition Therapy: {[facility] Diet List:134668716} Routes of Feeding: {[facility] DME Other Feedings:104014393} Liquids: {Embedded Systems Designer liquid thickness:25013} Daily Fluid Restriction: {[facility] DME Yes amt example:244784810} Last Modified Barium Swallow with Video (Video Swallowing Test): {Done Not Done Date:} Treatments at the Time of Hospital Discharge: Respiratory Treatments: Oxygen Therapy: {Therapy; copd oxygen:00674} Ventilator: {[facility] Vent List:929899789} Rehab Therapies: Physical Therapy and Occupational Therapy Weight Bearing Status/Restrictions: {[facility] Weight Bearin} Other Medical Equipment (for information only, NOT a DME order): {EQUIPMENT:835517875} Other Treatments: chcf eval and treat Patient's personal belongings (please select all that are sent with patient): {[facility] DME Belongings:023350729} RN SIGNATURE: {Esignature:207840159} CASE MANAGEMENT/SOCIAL WORK SECTION Inpatient Status Date:04-25-2021 Readmission Risk Assessment Score: Readmission Risk Risk of Unplanned Readmission: 17 Discharging to Facility/ Agency Name: Address: Phone: Fax: Dialysis Facility (if applicable) Name: Address: Dialysis Schedule: Phone: Fax: [employer] signature: {Esignature:320782446} PHYSICIAN SECTION Prognosis: Good Condition at Discharge: Stable Rehab Potential (if transferring to Rehab): {Prognosis:6064680580} Recommended Labs or Other Treatments After Discharge: [...] H&P: No change in H&P PHYSICIAN SIGNATURE: {Esignature:009373699} na Ansari MD - 05/03/2021 1. Follow up cardiology in 2 weeks 2. Take medications as prescribed The following attachments cannot be sent through Care Everywhere.PCI (Percutaneous Coronary Intervention): Post-op (Somali)documented in this encounter [employer] Phone: 10-31-2019 History of Present illness Narrative Physical Therapy Facility/Department: [address] Initial Assessment NAME: Yoel Van : 1955 Date of Service: 10/31/2019 [employer] LUE/LLE weakness, LKW 10/27/2019 HPI The patient is a 64 y.o. male who presents as a transfer from [place] for concern for hemorrhage in the basal [...] using RW, supervises) Transfer Assistance: Independent Active Field Marketer: No Patient's Field Marketer Info: Pt hasn't driven since CVA in [...] using RW, supervises) Transfer Assistance: Independent Active Field Marketer: No Patient's Field Marketer Info: Pt hasn't driven since CVA in [...] for pt often Sensation Overall Sensation Status: [facility] LUE AROM (degrees) LUE AROM : Exceptions [...] RUE Strength: WFL R Hand General: 5/5 [facility] Inpatient Daily Activity Raw Score: 20 (10/31/191252) [facility] Inpatient ADL T-Scale Score : 42.03 (10/31/191252) ADL Inpatient CMS 0-100% Score: 38.32 (10/31/191252) ADL Inpatient [facility] G-Code Modifier : CJ (10/31/191252) Goals Short term goals Time Frame for Short term goals: OT eval and d/c d/t pt at baseline Therapy Time Individual Concurrent Group Co-treatment Time In 1100 Time Out 1130 Minutes 30 SHANI Vásquez/L documented in this encounter [employer] Phone: 10-31-2019 Hospital Discharge instructions Barbara Perea, DO - 10/31/2019 Please do not take your aspirin or Plavix until after being seen in follow-up with Dr. Aguiar of neurology on 11/07/2019. Please have your CT head done next 10/30/2019. documented in this encounter [employer] Phone: Evaluation note Diagnosis Altered mental status, unspecified altered mental status type- Primary NSTEMI (non-ST elevated myocardial infarction) ([facility]) Acute myocardial infarction, subendocardial infarction, episode of [...] Coronary atherosclerosis of unspecified type of vessel, [place] or graft S/P PTCA/FLORESITA to mid LCX (Dr Bojorquez) Postsurgical percutaneous transluminal coronary angioplasty status documented in this encounter [employer] Phone: evaluation note* Diagnosis Intraparenchymal hemorrhage of brain (HCC)- Primary Intracerebral hemorrhage Acute cerebrovascular accident (CVA) (HCC) documented in this encounter [employer] Phone: evaluation note* Diagnosis Intraparenchymal hemorrhage of brain (HCC) Intracerebral hemorrhage documented in this encounter [employer] Phone: evaluation note* Diagnosis Type 2 diabetes mellitus with diabetic polyneuropathy (CMS/HCC) documented in this encounter [facility] HealthcareEvaluation note* Diagnosis Type 2 diabetes mellitus with hyperglycemia, without long-term current use of insulin (CMS/HCC)- Primary Benign essential hypertension ([facility]/HCC) Essential hypertension, benign Type 2 diabetes mellitus with diabetic polyneuropathy, without long-term current use of insulin ([facility]/HCC) Thoracic aortic aneurysm without rupture, unspecified part [...] diabetic polyneuropathy (CMS/HCC) documented in this encounter [facility] HealthcareEvaluation note* Diagnosis Type 2 diabetes [...] diabetic polyneuropathy (CMS/HCC) documented in this encounter [facility] HealthcareEvaluation note* Diagnosis Type 2 diabetes [...] spasm of back documented in this encounter [facility] HealthcareEvaluation note* Diagnosis Type 2 diabetes mellitus with diabetic polyneuropathy (HCC) (CMS/HCC) documented in this encounter [facility] HealthcareEvaluation note* Diagnosis Type 2 diabetes mellitus with hyperglycemia, without long-term current use of insulin (CMS/HCC)- Primary Benign essential hypertension ([facility]/HCC) Essential hypertension, benign Type 2 diabetes mellitus with diabetic polyneuropathy, without long-term current use of insulin ([facility]/HCC) Thoracic aortic aneurysm without rupture, unspecified part ([facility]/HCC) Insomnia, unspecified type CAD, multiple vessel ([facility]/HCC) Gastroesophageal reflux disease without esophagitis Esophageal reflux Left kidney mass- Primary Unspecified disorder of kidney and ureter Type 2 diabetes mellitus with hyperglycemia, without long-term current use of insulin ([facility]/HCC) Benign essential hypertension ([facility]/HCC) Essential hypertension, benign Type 2 diabetes mellitus with hyperglycemia, without long-term current use of insulin ([facility]/HCC)- Primary Benign essential hypertension (CMS/HCC) Essential hypertension, benign Type 2 diabetes mellitus with diabetic polyneuropathy, without long-term current use of insulin ([facility]/HCC) Renal cell carcinoma of left kidney ([facility]/HCC) Colon cancer screening Special screening for malignant neoplasms, colon Primary insomnia Persistent disorder of initiating or maintaining sleep CKD stage 3b, GFR 30-44 ml/min ([facility]/HCC) PVD (peripheral vascular disease) ([facility]/HCC) Unspecified peripheral vascular disease Type 2 diabetes mellitus with stage 3b chronic kidney disease, without long-term current use of insulin (HCC) ([facility]) Hemiplegia and hemiparesis following cerebral infarction affecting right dominant side (I69.351) Type 2 diabetes mellitus with hyperglycemia, without long-term current use of insulin (CMS/HCC)- Primary Adrenal insufficiency (CMS/HCC) Glucocorticoid deficiency Benign essential hypertension (CMS/HCC) Essential hypertension, benign Type 2 diabetes mellitus with diabetic polyneuropathy, without long-term current use of insulin ([facility]/HCC) Hemiparesis of left nondominant side as late [...] FoundDocuments on File Type Date Recorded Patient Disability Insurance Hearing Officer Expl anation Advance Directives and Living Will Power of Air Compressor Operator Latest Code Status on File Code Status Date Activated Date Inactivated Comments Full Code 10/31/2019 10:09 AM 10/31/2019 6:29 PM Documents on File Type Date Recorded Patient Disability Insurance Hearing Officer Expl anation Advance Directives and Living Will Power of Air Compressor Operator Latest Code Status on File Code Status Date Activated Date Inactivated Comments Full Code 10/31/2019 10:09 AM 10/31/2019 6:29 PM Documents on File Type Date Recorded Patient Disability Insurance Hearing Officer Expl anation ACP-Advance Directive ACP-Power of Air Compressor Operator Latest Code Status on File Code [...] W/O CONTRAST Sabrina Aguiar Sa, MD [address] [address] [facility] [address] [place] [address] Status Reason Specialty Diagnoses / Procedures Referre d By Contact Referred To Contact Closed Diagnoses Cerebrovascular accident (CVA) due to embolism of precerebral artery (HCC) Memory impairment Procedures EEG awake and asleep Andreia Ramos MD [address] [address] Status Reason Specialty Diagnoses / Procedures Referre d By Contact Referred To Contact Closed Cardiology Diagnoses 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) Cerebrovascular accident (CVA) due to embolism of precerebral artery (HCC) Procedures ECHO Complete 2D W Doppler W Color Andreia Ramos MD [address] [address] Status Reason Specialty Diagnoses / Procedures Referre d By Contact Referred To Contact Open Radiology Diagnoses Intraparenchymal hemorrhage of brain (HCC) Procedures CT HEAD WO CONTRAST CT HEAD WO CONTRAST Barbara Perea, [address] [place] [address] Status Reason Specialty Diagnoses / Procedures Referre d By Contact Referred To Contact Closed Radiology Diagnoses Intraparenchymal hemorrhage of brain (HCC) Procedures CT HEAD WO CONTRAST CT HEAD WO CONTRAST Barbara Perea DO [facility] [place] [address] Assessments Diagnosis Cerebrovascular accident (CVA), unspecified mechanism [...] EDT 22g IV inserted Jose White by contract writer, used for bubble study documented in this encounter Additional Source Comments (unrecognized sect ion and content) No Status Records FoundNo Status Records FoundNo Status Records FoundNo Status Records FoundNo Status Records FoundNo Status Records FoundNo Status Records Found INFORMATION SOURCE (unrecogn ized section and content) DATE CREATED AUTHOR 04/27/2018 [facility] DATE CREATED AUTHOR AUTHOR'S ORGANIZ ATION 05/16/2020 [facility] DATE CREATED AUTHOR AUTHOR'S ORGANIZ ATION 05/11/2021 [facility] DATE CREATED AUTHOR AUTHOR'S ORGANIZ ATION 01/20/2023 [facility] DATE CREATED AUTHOR AUTHOR'S ORGANIZ ATION 10/18/2023 [facility] DATE CREATED AUTHOR AUTHOR'S ORGANIZ ATION 09/29/2024 [facility] DATE CREATED AUTHOR AUTHOR'S ORGANIZ ATION 10/27/2024 [facility] Reason for Visit (unrecogniz ed section and content) Status Reason Specialty Diagnoses / Procedures Referre d By Contact Referred To Contact Closed Radiology Diagnoses Cerebrovascular accident (CVA), unspecified mechanism (HCC) Procedures CT HEAD WO CONTRAST HC CT BRAIN W/O CONTRAST Sabrina Aguiar Sa, MD [address] [place] [address] [facility] [address] [place] [address] Status Reason Specialty Diagnoses / Procedures Referre d By Contact Referred To Contact Closed Diagnoses Cerebrovascular accident (CVA) due to embolism of precerebral artery (HCC) Memory impairment Procedures EEG awake and asleep Andreia Ramos MD [address] [place] [address] Status Reason Specialty Diagnoses / Procedures Referre d By Contact Referred To Contact Closed Cardiology Diagnoses 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) Cerebrovascular accident (CVA) due to embolism of precerebral artery (HCC) Procedures ECHO Complete 2D W Doppler W Color Andreia Ramos MD [address] [place] [address] Reason Comments Altered Mental Status Status Reason Specialty Diagnoses / Procedures Referre d By Contact Referred To Contact [facility] Reason Comments Cerebrovascular Accident tx from dl w Status Reason Specialty Diagnoses / Procedures Re ferred By Contact Referred To Contact Diagnoses Acute cerebrovascular accident (CVA) ([facility]) Bennie Bosch MD [address] [facility] [address] [place] [address] [facility] Status Reason Specialty Diagnoses / Procedures Referre d By Contact Referred To Contact Closed Radiology Diagnoses Intraparenchymal hemorrhage of brain ([facility]) Procedures CT HEAD WO CONTRAST CT HEAD WO CONTRAST Barbara Perea DO [address] [place] [address] Reason Onset Date Comments Med Refill 07/26/2024 [...] duplicate)2043 (Given - Provider: Nesha Victor RN) 07 (Not Given - Provider: [...] Nesha Victor RN) 07 (Given - Provider: Dasia Solis RN)2125 (Given [...] to tolerate oral tablet. [facility] Action 3.1 to 3.9 40 mEq [...]
Care Teams (unrecognized sec tion and content) Contracts Paralegal Relationship Specialty Start Date End Date Alec Pinzon MD [address] [place] [phone] PCP - General [facility] Medicine 11/17/23 Contracts Paralegal Relationship Specialty Start Date End Date Alec Pinzon MD [address] [place] [phone] PCP - [facility] Medicine 11/17/23 Contracts Paralegal Relationship Specialty Start Date End Date Alec Pinzon MD [address] [place] [phone] PCP - General [facility] Medicine 11/17/23 Contracts Paralegal Relationship Specialty Start Date End Date Alec Pinzon MD [address] [place] [phone] PCP - General [facility] Medicine 11/17/23 Contracts Paralegal Relationship Specialty Start Date End Date Alec Pinzon MD [address] [place] [phone] PCP - General Family Medicine 11/17/23 Contracts Paralegal Relationship Specialty Start Date End Date Alec Pinzon MD [address] [place] [phone] PCP - [facility] Medicine 11/17/23 Contracts Paralegal Relationship Specialty Start Date End Date Alec Pinzon MD [address] [place] [phone] PCP - [facility] 11/17/23 Contracts Paralegal Relationship Specialty Start Date End Date Alec Pinzon MD [address] [place] [phone] PCP - [facility] 11/17/23 Contracts Paralegal Relationship Specialty Start Date End Date Alec Pinzon MD [address] [place] [phone] PCP - General Family [facility] 11/17/23 FOR RECORDS PERTAINING TO PATIENTS [...] BE BASED ON THE PRIMARY CLINICAL RECORDS. [facility]. provides no warranty or guarantee of the accuracy or completeness of information in this document.
[2024-11-03] MEDS: INSULIN ASPART 300 UNIT/3 ML PEN SUBQ ×2 (11:21→21:25)
[2024-11-03 11:32] LABS: Glucometer 196 mg/dL (74-106)
--- NOTE | 2024-11-03 12:09 | CM.NOTE ---
Rounds made with Dr. Trotter, pt off Levophed and okay to transfer to Med-Surg. No discharge today. Pt will be set up with [place] [phone] at discharge.
--- NOTE | 2024-11-03 13:10 | ECG_ITS ---
[facility] Test Date: 2024-11-03 Pat Name: DARIN VAN Department: Room: [facility] Gender: Male Philatelic Consultant: : 1955 Requested By: JANKI PINZON Order Number: [id number] Reading MD: ANNETTE SCHWARTZ Measurements Intervals [place] Rate: 116 P: 76 AR: 202 QRS: 2 QRSD: 98 T: 210 QT: 322 QTc: 391 Interpretive Statements 1120 Sinus tachycardia Persistent inferolateral ST/T wave changes, myocardial ischemia can't be excluded 9150 abnormal ECG Electronically Signed On 11-04-2024 8:17:34 EST by ANNETTE SCHWARTZ
[2024-11-03] MEDS: 0.9 % SODIUM CHLORIDE 500 ML IV (13:19)
--- NOTE | 2024-11-03 13:24 | P.PN_ITS ---
Progress Note: Subjective Subjective Interval history: Patient feels much better this am. Awake and alert. BP improved and off levophed. Mild SOB and cough but no sputum. Still weakness but ambulating around ICU. Decreased PO but no emesis or diarrhea. No chest pain or palpitations. Exam Constitutional Vital Signs, click to edit/add: Last Vital Signs Temp 98.0 F 11/03/24 12:00 Pulse 122 H 11/03/24 12:00 Resp 16 11/03/24 07:46 BP 113/66 11/03/24 07:46 Pulse Ox 96 11/03/24 12:00 O2 Del Method Room Air 11/03/24 12:00 O2 Flow Rate 3 11/02/24 14:35 Documenting provider has reviewed patient's vital signs: yes Common normals: no apparent distress, oriented x3 and alert HENMT Common normals: normocephalic Eye Common normals: PERRL and EOMs intact bilaterally Respiratory Auscultation: diminished lung sounds Cardio Common normals: regular rate, regular rhythm, no gallops, no murmurs and no rub GI Common normals: Normal to inspection, nondistended, normoactive bowel sounds present and non-tender Progress Note: Objective Labs Labs: Short CBC 11/03/24 Range/Units 04:43 WBC 9.2 (4.0-11.0) 10^3/uL Hgb 11.3 L (14.0-18.0) g/dL Hct 33.6 L (42.0-54.0) % Plt Count 204 (150-450) 10^3/uL BMP 11/03/24 04:43 Sodium 140 Potassium 4.2 Chloride 108 H Carbon Dioxide 25.3 BUN 24.0 H Creatinine 2.12 H Glucose 134 H Calcium 9.1 Liver Function 11/03/24 Range/Units 04:43 Total Bilirubin 0.7 (0.2-1.0) mg/dL AST 19 (15-37) U/L ALT 27 (16-63) U/L Alkaline Phosphatase 96 (46-116) U/L Albumin 2.6 L (3.4-5.0) g/dL Urine 11/02/24 Range/Units 14:28 Urine Color Lt. yellow (YELLOW) Urine Clarity Clear (CLEAR) Urine pH 6.0 (5.0-9.0) Ur Specific [place] <=1.005 A (1.005-1.025) Urine Protein Negative (NEG/TRACE) mg/dL Urine Glucose (UA) >=1000 A (NEGATIVE) mg/dL Progress Note: A&P Assessment and Plan (1) LLL pneumonia: Qualifiers: Pneumonia type: due to unspecified organism Qualified Code(s): J18.9 - Pneumonia, unspecified organism (2) Severe sepsis with acute organ dysfunction: (3) Acute respiratory failure with hypoxia: (4) Acute kidney injury superimposed on chronic kidney disease: (5) Type 2 diabetes mellitus: Qualifiers: Diabetes mellitus local intermodal truck driver insulin use: without local intermodal truck driver use Diabetes mellitus complication status: with kidney complications Diabetes mellitus complication detail: with chronic kidney disease Chronic kidney disease stage: stage 3 (moderate) Chronic kidney disease stage 3 subtype: stage 3b (GFR 30-44) Qualified Code(s): E11.22 - Type 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; N18.32 - Chronic kidney disease, stage 3b (6) 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 transplanted heart: [place] heart Associated angina: without angina Qualified Code(s): I25.10 - Atherosclerotic heart disease of [place] coronary artery without angina pectoris (9) CKD stage 3b, GFR 30-44 ml/min: Plan Patient improved this am. Off pressors and BP normal. Continue antibiotics and breathing treatments. Continue home medication including hydrocortisone. Increase ambulation. If continue to improve likely ready for discharge in next 1-2 days.
--- NOTE | 2024-11-03 13:24 | SWNOTE1 ---
[facility] is able to accept.
[2024-11-03 13:48] LABS: Troponin I High Sensitivity 9.5 pg/mL (4.0-76.1)
[2024-11-03] MEDS: CEFTRIAXONE 1,000 MG in 0.9 % SODIUM CHLORIDE 50 ML 100 MG IV (16:09)
[2024-11-03] MEDS: LEVOFLOXACIN IN DEXTROSE 5 % 250 MG/50 ML PREMIX 50 MG IV (17:24)
[2024-11-03 20:13] LABS: Glucometer 274 mg/dL (74-106)
[2024-11-03] MEDS: ATORVASTATIN CALCIUM 40 MG TABLET PO (21:24)
[2024-11-03] MEDS: AMITRIPTYLINE HCL 50 MG TABLET 150 MG PO (21:24)
[2024-11-04] VITALS (8 sets, daily range): BP systolic 146–169; BP diastolic 78–91; PULSE 96–115; TEMP 36.6–36.8; O2SAT 94–95
[2024-11-04] MEDS: HYDROCORTISONE 20 MG TABLET 10 MG PO (05:22)
[2024-11-04] MEDS: HEPARIN SODIUM (PORCINE) 5,000 UNIT/ML VIAL 5000 UNIT SUBQ (05:22)
[2024-11-04] MEDS: LACTATED RINGER'S SOLUTION 1,000 ML 100 ML IV (05:23)
[2024-11-04] MEDS: LEVOTHYROXINE SODIUM 25 MCG TABLET 50 MCG PO (05:48)
[2024-11-04 06:45] LABS: Basophils Percent Auto 0.3 % (0.2-2.0); Eosinophils Percent Auto 0.6 % (0.9-7.0); Hematocrit 31.8 % (42.0-54.0); Hemoglobin 10.4 g/dL (14.0-18.0); Immature Granulocytes Abs Auto 0.02 10^3/uL (0.00-0.03); Immature Granulocytes Pct Auto 0.3 % (0.0-0.5); Lymphocytes Absolute Auto 1.4 10^3/uL (1.2-3.8); Lymphocytes Percent Auto 20.1 % (20.5-60.0); Mean Corpuscular HGB Conc 32.7 g/dL (29.9-35.2); Mean Corpuscular Hemoglobin 29.8 pg (25.9-34.0); Mean Corpuscular Volume 91.1 fL (80.0-94.0); Mean Platelet Volume 10.3 fL (9.5-13.5); Monocytes Absolute Auto 0.5 10^3/uL (0.3-0.8); Monocytes Percent Auto 7.6 % (1.7-12.0); Neutrophils Absolute Auto 4.9 10^3/uL (1.4-6.5); Neutrophils Percent Auto 71.1 % (43.0-75.0); Platelet Count 196 10^3/uL (150-450); Red Blood Count 3.49 10^6/uL (4.70-6.10); Red Cell Distribution Width 14.3 % (11.0-15.0); White Blood Count 6.9 10^3/uL (4.0-11.0)
[2024-11-04 07:10] LABS: Alanine Aminotransferase 20 U/L (16-63); Albumin Globulin Ratio 0.7; Albumin Level 2.6 g/dL (3.4-5.0); Alkaline Phosphatase 78 U/L (46-116); Anion Gap 14.5; Aspartate Amino Transferase 17 U/L (15-37); BUN Creatinine Ratio 11.5; Bilirubin Total 0.5 mg/dL (0.2-1.0); Carbon Dioxide 24.7 mmol/L (21.0-32.0); Chloride 108 mmol/L (98-107); Estimated GFR (African America 48 (>=60 mL/min/1.73m^2); Estimated GFR (Non-African Ame 39 (>=60 mL/min/1.73m^2); Globulin 3.7 g/dL; Glucose 135 mg/dL (74-106); Potassium 4.2 mmol/L (3.5-5.1); Sodium 143 mmol/L (136-145); Total Protein 6.3 g/dL (6.4-8.2)
[2024-11-04] MEDS: CLOPIDOGREL BISULFATE 75 MG TABLET PO (08:34)
[2024-11-04] MEDS: GABAPENTIN 100 MG CAPSULE PO (08:35)
[2024-11-04] MEDS: ASPIRIN 81 MG TABLET.DR PO (08:35)
[2024-11-04] MEDS: SODIUM BICARBONATE 325 MG TABLET 650 MG PO (08:35)
[2024-11-04] MEDS: OMEPRAZOLE 40 MG CAPSULE.DR PO (08:35)
--- NOTE | 2024-11-04 10:14 | PT.DAILY ---
Physical Therapy Daily Note PT Daily Note/Assess Start: 11/02/24 16:31 Freq: Status: Active Protocol: Document 11/04/24 10:06 [id number] (Rec: 11/04/24 10:14 [id number]) Physical Therapy Daily Note/Assessment Time In/Time Out Time In 08:48 Time Out 09:00 Pain In Pain Level 3 Pain Out Pain Level 4 Subjective Subjective Patient received in bed and agreeable to participate with PT. States he hopes to go home today. Therapeutic Exercise Time Therapeutic Exercise 4 Minutes (minutes) Therapeutic Exercise 0 Units Therapeutic Exercise Treatment Therapeutic Exercise Seated EOB for ROSEANNE LE ther ex to increase strength and Treatment mobility x 10 reps for ankle pumps, LAQ's, marching, resisted hip ABD/ADD. Therapeutic Activity Time Therapeutic Activity 8 Minutes (minutes) Therapeutic Activity 0 Units Therapeutic Activity Treatment Bed Mobility Ability Standby Assistance,Contact Guard Assist Chair Transfer Contact Guard Assist Ability Therapeutic Activity Supine>sit on R with use of bed rail. No LOB while Comments seated EOB without UE support. Patient performed ther ex to ROSEANNE LE while seated. Sit>stand CGA +1 with safe hand placement. Patient ambulated ~100' with CGA +1 and IV pole management by Chloe Fonseca PTA. Patient returned to EOB and transfers to supine with SBA. Patient does states his legs are beginning to throb after walking. CBWR and bed rails in up position. Total Physical Therapy Time Total Therapy 12 Minutes Total Physical 0 Therapy Units Summary Daily Note Summary Patient demonstrates improved bed mobility. Demonstrates slow pace of gait with shortened step length. Patient would benefit from PT to address functional deficits for return to PLOF.
--- NOTE | 2024-11-04 10:16 | PM.DS1 ---
DS: Providers Provider Date of admission: 11/02/24 14:30 Primary care physician: Alec Trotter MD Consults: 11/02/24 12:54 Occupational Therapy Eval and Treat Routine Reason for consultation: weakness Has provider been notified: No Physical Therapy Eval and Treat Routine Reason for consultation: weakness Has provider been notified: No DS: Diagnosis Discharge Diagnosis (1) LLL pneumonia: Qualifiers: Pneumonia type: due to unspecified organism Qualified Code(s): J18.9 - Pneumonia, unspecified organism (2) Severe sepsis with acute organ dysfunction: (3) Acute respiratory failure with hypoxia: (4) Acute kidney injury superimposed on chronic kidney disease: (5) Type 2 diabetes mellitus: Qualifiers: Chronic kidney disease stage: stage 3 (moderate) Chronic kidney disease stage 3 subtype: stage 3b (GFR 30-44) Diabetes mellitus complication detail: with chronic kidney disease Diabetes mellitus complication status: with kidney complications Diabetes mellitus regional intermodal truck driver insulin use: without regional intermodal truck driver use Qualified Code(s): E11.22 - Type 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; N18.32 - Chronic kidney disease, stage 3b (6) 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 transplanted heart: [place] heart Associated angina: without angina Qualified Code(s): I25.10 - Atherosclerotic heart disease of [place] coronary artery without angina pectoris (9) CKD stage 3b, GFR 30-44 ml/min: Improving at the time of discharge DS: Summary Hospital Course Hospital Course: Patient was admitted to the intensive care unit with severe sepsis with multisystem organ dysfunction secondary to left lower lobe pneumonia, treated with aggressive IV antibiotics, fluid resuscitation, aerosol treatments. Sputum culture still pending, patient did improve fairly quickly, much improved today, off of supplemental oxygen, ambulating with only mild dyspnea, at this point he feels stable for discharge to home, cultures are again still pending, will discharge patient home in improving condition. Medications to this. Follow-up with PCP this next few days. Patient did improve much faster than was expected for his initial presentation in the emergency room Status at Discharge Overall status at discharge: patient is not back to baseline Time Spent with Patient Time attestation: Total time spent providing and/or coordinating discharge services: Time spent: greater than 30 minutes Exam Constitutional Vital Signs, click to edit/add: Last Vital Signs Temp 98.2 F 11/04/24 07:56 Pulse 108 H 11/04/24 07:56 Resp 18 11/04/24 07:56 BP 169/91 H 11/04/24 07:56 Pulse Ox 95 11/04/24 07:56 O2 Del Method Room Air 11/04/24 07:56 O2 Flow Rate 3 11/02/24 14:35 Documenting provider has reviewed patient's vital signs: yes Common normals: no apparent distress Chest Common normals: inspection of chest normal Respiratory Common normals: normal respiratory effort and no retractions Cardio Common normals: regular rate and regular rhythm GI Common normals: Normal to inspection, nondistended, normoactive bowel sounds present DS: Data Data Completed and Pending Labs on day of discharge: Labs from last 24 hours 11/04/24 11/03/24 11/03/24 06:20 20:12 16:24 WBC 6.9 RBC 3.49 L Hgb 10.4 L Hct 31.8 L MCV 91.1 MCH 29.8 MCHC 32.7 RDW 14.3 Plt Count 196 MPV 10.3 Neut % (Auto) 71.1 Lymph % (Auto) 20.1 L [place] % (Auto) 7.6 Eos % (Auto) 0.6 L Baso % (Auto) 0.3 Neut # (Auto) 4.9 Lymph # (Auto) 1.4 [place] # (Auto) 0.5 Eos # (Auto) 0.0 Baso # (Auto) 0.0 Abs Immat Gran (auto) 0.02 Imm/Tot Granulo (auto) 0.3 Sodium 143 Potassium 4.2 Chloride 108 H Carbon Dioxide 24.7 Anion Gap 14.5 BUN 20.0 H Creatinine 1.74 H Est GFR ( Amer) 48 L Est GFR (Non-Af Amer) 39 L BUN/Creatinine Ratio 11.5 Glucose 135 H Calcium 9.0 Total Bilirubin 0.5 AST 17 ALT 20 Alkaline Phosphatase 78 Troponin I High Sens 17.0 Total Protein 6.3 L Albumin 2.6 L Globulin 3.7 Albumin/Globulin Ratio 0.7 POC Glucose 274 H 11/03/24 11/03/24 13:25 11:21 WBC RBC Hgb Hct MCV MCH MCHC RDW Plt Count MPV Neut % (Auto) Lymph % (Auto) [place] % (Auto) Eos % (Auto) Baso % (Auto) Neut # (Auto) Lymph # (Auto) [place] # (Auto) Eos # (Auto) Baso # (Auto) Abs Immat Gran (auto) Imm/Tot Granulo (auto) Sodium Potassium Chloride Carbon Dioxide Anion Gap BUN Creatinine Est GFR ( Amer) Est GFR (Non-Af Amer) BUN/Creatinine Ratio Glucose Calcium Total Bilirubin AST ALT Alkaline Phosphatase Troponin I High Sens 9.5 Total Protein Albumin Globulin Albumin/Globulin Ratio POC Glucose 196 H Discharge Plan Discharge Disposition: Home, Self-Care Discharge Medications: New levofloxacin 750 mg tablet 750 mg PO DAILY 7 Days Qty: 7 0RF Continued atorvastatin 40 mg tablet 40 mg PO .QHS amitriptyline 150 mg tablet 150 mg PO .QHS glipizide 10 mg tablet 10 mg PO BID clopidogrel 75 mg tablet 75 mg PO DAILY sodium bicarbonate 650 mg tablet 650 mg PO BID levothyroxine 50 mcg tablet 50 mcg PO .qd pantoprazole 40 mg tablet,delayed release (DR/EC) 40 mg PO Q12H gabapentin 100 mg capsule 100 mg PO BID Rx Instructions: MORNING AND BEDTIME hydrocortisone 10 mg tablet 10 mg PO Q8H metoprolol tartrate 25 mg tablet 25 mg PO BID dapagliflozin propanediol [Farxiga] 10 mg tablet 10 mg PO DAILY aspirin [Adult Low Dose Aspirin] 81 mg tablet,delayed release (DR/EC) 81 mg PO DAILY Activity: increase activity as tolerated Diet: advance to your usual diet Print Language: Khmer Patient Instructions: Sepsis (DC), Pneumonia (DC) Water Supply Technician/Grades 7 And 8 Teacher Instructions: [facility]. Phone number is [phone]. They should contact within 48 hours of discharge Forms: Portal Instructions Follow Up Appointments: Please call Wednesday to schedule follow up appt with Dr Trotter [phone] Discharge Date/Time: 11/04/24 11:04
--- NOTE | 2024-11-06 15:34 | CM.DCFOLLOWU ---
11/06- 1st attempt. No answer
--- NOTE | 2024-11-07 15:30 | CM.DCFOLLOWU ---
Person spoke with:patient's How are you feeling?well How is your pain?none Did you understand your discharge instructions?yes Do you have any questions about your discharge instructions?no Were you given any prescriptions at discharge?yes Were you able to get your prescriptions filled?yes Do you understand how to take your medications as ordered? yes Do you have any questions about your follow up appointment and do you plan to keep your follow up appointment? no questions, will call tomorrow to schedule follow up Is there anything else that you would like to discuss? no Questions/Comments/Concerns/Other:none
== END 2024-11-04 11:04 | disposition home or self-care (01) | DRG 871 ==
LOC: ER 14:32 → ICU 11-03 10:24 → MS 11-03 16:48
PROVIDERS: Admitting Provider Family Medicine; Emergency Provider Emergency Medicine; PCP Family Medicine; Visit Provider Family Medicine
DX: A41.9 Sepsis, unspecified organism (principal); J18.9 Pneumonia, unspecified organism; J96.01 Acute respiratory failure with hypoxia; R65.21 Severe sepsis with septic shock; N17.9 Acute kidney failure, unspecified; E27.40 Unspecified adrenocortical insufficiency; E27.3 Drug-induced adrenocortical insufficiency; D84.821 Immunodeficiency due to drugs; E03.9 Hypothyroidism, unspecified; E11.22 Type 2 diabetes mellitus with diabetic chronic kidney disease; E11.42 Type 2 diabetes mellitus with diabetic polyneuropathy; E78.5 Hyperlipidemia, unspecified; F17.200 Nicotine dependence, unspecified, uncomplicated; I25.10 Atherosclerotic heart disease of native coronary artery without angina pectoris; K21.9 Gastro-esophageal reflux disease without esophagitis; N18.32 Chronic kidney disease, stage 3b; T45.1X5A Adverse effect of antineoplastic and immunosuppressive drugs, initial encounter; Z79.82 Long term (current) use of aspirin; Z79.02 Long term (current) use of antithrombotics/antiplatelets; Z79.84 Long term (current) use of oral hypoglycemic drugs; Z79.52 Long term (current) use of systemic steroids; Z79.890 Hormone replacement therapy; Z79.899 Other long term (current) drug therapy; Z85.528 Personal history of other malignant neoplasm of kidney; Z90.5 Acquired absence of kidney; Z95.1 Presence of aortocoronary bypass graft
CPT/HCPCS: 36415; 36591; 71045; 80053; 81001; 82948; 83605; 83880; 84484; 85025; 87040; 87420; 87804; 87811; 93005; 94640; 94667; 94668; 94761; 96361; 96365; 96366; 96367; 96375; 97162; 97165; 97530; 99285; 99406; J0696; J1644; J1720; J1956; J2405; J8499

== ENCOUNTER 2025-02-09 09:34 | Outpatient (OUT) | payer MEDICARE, MEDICAID, SELFPAY ==
--- NOTE | 2025-02-09 10:00 | CA_ITS ---
Patient Name: DARIN VAN MR#: [id number] : 1955 Exam Date: 02/09/2025 Ordering Doctor: DR CLINTON GUEVARA M.D. ECHOCARDIOGRAM REPORT PROCEDURE: CA ECHO DOPPLER COMPLETE INDICATIONS: Heart failure with reduced ejection fraction, hypotension, aortic aneurysm, h/o thyroid cancer- chemo COMPARISON: None. DESCRIPTION: COMPLETE ECHOCARDIOGRAM Real-time transthoracic echocardiography with 2D, M-mode, spectral and color flow Doppler performed. QUALITY: Technical quality was good. LEFT VENTRICLE: Normal chamber size. Thickened septal wall. Mild concentric hypertrophy. Systolic function is at the lower limits of normal. LV EF: Calculated left ventricular ejection fraction is 50%. Lower limits of normal left ventricular ejection fraction, (50-55%). DIASTOLIC: Normal diastolic function. ATRIAL SEPTUM: Visually appears intact. LEFT ATRIUM: Normal chamber size. RIGHT ATRIUM: Normal chamber size. RIGHT VENTRICLE: Normal chamber size. Normal right ventricular systolic function. TRICUSPID VALVE: Normal mobility and thickness. No stenosis with trivial regurgitation. No evidence of pulmonary hypertension. RVSP 19 mmHg MITRAL VALVE: Normal mobility and thickness. No evidence of mitral valve stenosis. There is no mitral annular calcification. Trivial mitral regurgitation. AORTIC VALVE: Normal trileaflet appearance. Mildly calcified aortic valve. Mildly diminished mobility. No evidence of aortic valve stenosis. No aortic regurgitation. AORTIC ROOT: Aortic root is moderately dilated (4.6 cm), previously 4.5 cm on echocardiogram from 10/26/2023. Ascending aorta is mildly dilated (3.8 cm). PULMONIC VALVE: Not well visualized. No stenosis. No regurgitation. PERICARDIUM: No evidence of pericardial effusion. IVC: Collapses with inspirations. IVC is normal in size. PLEURA: CONCLUSION: 1. Mild concentric left ventricular hypertrophy with low normal systolic function. LVEF is estimated at 50 to 55%. 2. Normal right ventricular size and systolic function. 3. Mildly calcified aortic valve with no significant stenosis or regurgitation. 4. No significant valvular dysfunction. 5. Normal right-sided pressures. 6. Moderately dilated aortic root measuring 4.6 cm. The ascending aorta is mildly dilated measuring 3.8 cm. Adult Echocardiography Procedure Report Left Ventricle LVEDD (3.7 - 5.6 cm): 4.36 cm LVESD (2.2 - 4.0 cm): 3.58 cm LVIVS thickness (0.6 - 1.2 cm): 1.28 cm LVPW thickness (0.5 - 1.0 cm): 1.15 cm e': 0.12 m/s E - e': 5.29 LVOT Max Gradient: 6.06 mm[Hg], 5.90 mm[Hg] Peak Velocity (LVOT): 1.23 m/s, 1.21 m/s LVOT Diameter 2.58 cm Left Atrium LA Volume Index (2D A2C): 27.90 ml/m2 Left Atrium Systolic Dimension: 4.42 cm Mitral Valve MV E to A Ratio: 0.69 Mitral Valve A-Wave Peak Velocity: 0.89 m/s Mitral Valve E-Wave Peak Velocity: 0.61 m/s Right Ventricle Aorta AO Root Diam: 4.60 cm Ascending Ao Diam: 3.76 cm Aortic Valve AoV Area (Peak Zachariah): 4.83 cm2, 4.83 cm2 AoV Area (VTI): 4.54 cm2, 4.54 cm2 Peak Velocity(Antegrade Flow): 1.33 m/s Peak Gradient(Antegrade Flow): 7.08 mm[Hg] Mean Velocity(Antegrade Flow): 0.85 m/s Mean Gradient(Antegrade Flow): 3.43 mm[Hg] Velocity Time Integral: 23.51 cm Tricuspid Valve Peak Velocity (Regurgitant Flow): 2.00 m/s, 1.96 m/s Pulmonic Valve Mean Gradient: 1.14 mm[Hg], 1.35 mm[Hg], 1.65 mm[Hg] Mean Velocity: 0.48 m/s, 0.54 m/s, 0.61 m/s Peak Gradient: 2.21 mm[Hg], 2.61 mm[Hg], 3.36 mm[Hg] Right Atrium Right Atrium Systolic Pressure: 30.26 ml, 30.26 ml Dictated by: Clinton Guevara M.D. on 02/09/2025 at 12:06 Approved by: Clinton Guevara M.D. on 02/09/2025 at 12:12
== END 2025-02-09 09:35 | disposition home or self-care (01) ==
LOC: CARD 09:34
PROVIDERS: PCP Family Medicine; Visit Provider Internal Medicine Interventional Cardiology
DX: I50.22 Chronic systolic (congestive) heart failure (principal); I95.89 Other hypotension; I71.21 Aneurysm of the ascending aorta, without rupture
CPT/HCPCS: 93306; 93356

== ENCOUNTER 2025-08-03 09:31 | Outpatient (OUT) | payer MEDICARE, MEDICAID, SELFPAY ==
--- OUTSIDE RECORDS SUMMARY | 2025-08-03 09:39 | XMS_ITS | CCD ---
Author Organization [facility] Care Team Providers Care Jail Guard Name Role Phone PHYSICIAN, DEFAULT Unavailable Unavailable PHYSICIAN, DEFAULT Unavailable Unavailable ALEC PINZON Unavailable Unavailable PHYSICIAN, DEFAULT Unavailable Unavailable PHYSICIAN, DEFAULT Unavailable Unavailable ALEC PINZON Unavailable Unavailable Alec Pinzon Primary Care Provider BARBARA PEREA Referring Unavailable ALISSONSABRINA HOUSTON SA Referring Unavailable NADERER, ALEC ISAAC Primary [...] SHETH Consulting Unavailable ALIA, NING Consulting Unavailable CAM, FANTA Consulting Unavailable PJ BECERRIL Consulting Unavailable ZANDRA PINK Consulting Unavaila FLACO Ernst Consulting Unavailable DIANA SWANSON Consulting Unavailable KERLINE BHATIA Consulting Unavailable Unavailable Primary Care Provider Unavailmitch BUSBY, DR ODOM Admitting Unavailable NADERER, DR ALEC Rose Primary Care Unavailable MELODIE DUNLAP Consulting Unavailable KEHINDE, DR ODOM Attending Unavailable [...] DES Attending Unavailable TERRA, DES Consulting Unavailable ASHERELy, ALEC Referring Unavailable ASHERELy, ALEC Primary Care Unavailable ALBERTA, ALEC Referring Unavailable NADERELy, ALEC Primary Care Unavailable Alec Pinzon MD Primary Care Provider ALEC PINZON Attending Unavailable NADERELy, ALEC Attending Unavailable NADERER, ALEC Attending Unavailable NadAlec larsen MD Primary Care Provider Alec Pinzon MD Attending Provider LASHONDA ROBLES Attending Unavailable FLORI TORRES Attending Unav ailable VIJENDRA, BENY Referring Unavailable BARRIOSSHAGGY FELICIANO Referring Unavailable FLORI TORRES Referring Unav ailable VIJENDRA, BENY Referring Unavailable FLORI TORRES Attending Unav ailable VIJENDRA, BENY Referring Unavailable ROXANA MONSON Attending Unavailable VIJENDRA, BENY Attending Unavailable ANNA BABB Referring Unavailable FLORI TORRES Referring Unav ailable VIJENDRA, BENY Referring Unavailable CLINTON GUEVARA Attending Unavailable VIJENDRA, BENY Referring Unavailable VIJENDRA, BENY Referring Unavailable LASHONDA ROBLES Attending Unavailable ROXANA MONSON Attending Unavailable JUAN RAMON TEJADA Attending Unavailabl e FLORI TORRES Attending Unav ailable VIJENDRA, BENY Referring Unavailable HAMMONDS BEAL, FLORI Referring Unav ailable NALEDY DUARTE Attending Unavailable ROXANA MONSON Referring Unavailable PERNARGIS, ANNA Referring Unavailable EVANGELINA GAVIRIA Referring Unavailable EKWEBABAK OBI Attending Unavailable FLORI TORRES Attending Unav ailable KARAN, BENY Referring Unavailable LASHONDA ROBLES Attending Unavailable FLORI TORRES Attending Unav ailable WILLIAM GAMBINO Attending Unavailable EVANGELINA GAVIRIA Attending Unavailable EVANGELINA GAVIRIA Attending Unavailable KARAN, BENY Referring Unavailable ROXANA MONSON Referring Unavailable BARRIOS, SHAGGY Referring Unavailable OMBALLI, MOHAMED Attending Unavailable NAZZAL, MUNIER Attending Unavailable NAZZAL, MUNIER Admitting Unavailable NAZZAL, MUNIER Referring Unavailable FLORI TORRES Attending Unav ailable Allergies Allergy Classification Reported Allergen(s) Allergy Type Date of Onset Reaction(s) Facility (1 source) 32704,00; Translations: [26730,00] Propensity to adverse reactions (disorder) [address] [facility] Rep[facility] Medications Current Medications Medication Drug Class(es) Dates Sig (Normalized) Sig (Original) acetaminophen 325 mg oral tablet (7 sources) Start: 03-04-2025 End: 04-03-2025 take 2 tablets by mouth every six hours as needed acetaminophen (Tylenol) 325 MG tablet Take 650 mg by mouth every 6 (six) hours if needed 03/04/2025 04/03/2025 Active Start: 05-02-2021 take 650 mg by mouth [...] oral tablet (20 sources) Opioid Agonist Start: 06-27-2025 take 1 tablet by mouth every six hours as needed for pain Oxycodone-Acetaminophen 5-325 mg tablet Active 1 TAB PO Every 6 hours as needed for pain 120 30 June 27, 2025 Complies with drug therapy Start: 05-30-2024 End: 06-29-2025 take 1 tablet by mouth four times daily as needed for pain oxyCODONE-acetaminophen (Percocet) 5-325 MG tablet Indications: Type 2 diabetes mellitus with diabetic polyneuropathy (HCC) Take 1 tablet by mouth 4 (four) times a day as needed for severe pain 120 tablet 05/02/2025 05/30/2025 Discontinued (Reorder) Start: 10-31-2019 End: 10-31-2019 oxyCODONE-acetaminophen [...] hours. amitriptyline hydrochloride 150 mg oral tablet (20 sources) Tricyclic Antidepressant Start: 2025 take 1 tablet by mouth once daily at bedtime Amitriptyline 150 mg tablet Active 150 MG PO Daily at bedtime 2025 12:00am Complies with drug therapy Start: 04-16-2025 take 1 tablet by manny th at bedtime amitriptyline (Elavil) 150 MG tablet Indications: Type 2 diabetes mellitus with diabetic polyneuropathy (HCC) Take 1 tablet (150 mg) by mouth at bedtime 90 tablet 3 04/16/2025 Active Start: 02-28-2024 take 1 tablet by manny th at bedtime amitriptyline (Elavil) 150 MG tablet Indications: Type 2 diabetes mellitus with diabetic polyneuropathy (HCC) TAKE 1 TABLET BY MOUTH AT BEDTIME 90 tablet 3 02/28/2024 Active AMITRIPTYLINE HC L PO Take 150 mg by mouth 0 Active apixaban 2.5 mg oral tablet (7 sources) Factor Xa Inhibitor Start: 2025 take 1 tablet by mouth twice daily Apixaban (Eliquis) 2.5 mg tablet Active 2.5 MG PO Twice daily 2025 12:00am Complies with drug therapy take 1 tablet by mouth in the mo rning Eliquis 2.5 MG tablet Take 2.5 mg by mouth in the morning and 2.5 mg before bedtime. Active aspirin 81 mg delayed release oral tablet (20 sources) Platelet Aggregation Inhibitor, Nonsteroidal Anti-inflammatory Drug Start: 2025 Aspirin (Adult Lo w Dose Aspirin) 81 mg tablet,delayed release (DR/EC) Active 81 MG PO Daily 2025 12:00am Complies with drug therapy Start: 05-03-2021 take 1 tablet by manny th once daily aspirin 81 MG chewable tablet [...] tablet (20 sources) HMG-CoA Reductase Inhibitor Start: 2025 take 1 tablet by mouth once daily at bedtime Atorvastatin 40 mg tablet Active 40 MG PO Daily at bedtime 2025 12:00am Complies with drug therapy Start: 08-13-2023 take 1 tablet by manny th at bedtime atorvastatin (Lipitor) 40 MG tablet [...] Monitoring Suppl (FreeStyle InsuLinx System) w/Device kit (20 sources) Blood Glucose Monitoring Suppl (FreeStyle InsuLinx System) w/Device kit Active Blood-Glucose Meter (Freestyle Insulinx) [facility] [place] (1 source) Start: 2025 Blood-Glucose Meter (Freestyle Insulinx) [facility] [place] Active 0 .ROUTE 2025 12:00am As directed carvedilol 12.5 mg oral tablet (10 sources) [...] tablet (20 sources) [id number] Platelet Inhibitor Start: 2025 take 1 tablet by mouth once daily Clopidogrel 75 mg tablet Active 75 MG PO Daily 2025 12:00am Complies with drug therapy Start: 12-13-2023 End: 01-01-2025 take 1 tablet by mouth once daily clopidogrel (Plavix) 75 MG tablet Indications: PVD (peripheral vascular disease) Take 1 tablet (75 mg) by mouth Daily 90 tablet 3 01/01/2025 Active Start: 05-03-2021 take 1 tablet by [...] Discharge) cyclobenzaprine hydrochloride 10 mg oral tablet (19 sources) Muscle Relaxant Start: 2025 take 1 tablet by mouth three times daily as needed Cyclobenzaprine 10 mg tablet Active 10 MG PO Three times daily as needed 2025 12:00am Complies with drug therapy Start: 09-26-2024 take 1 tablet by manny th three times daily as needed for muscle spasms cyclobenzaprine (Flexeril) 10 MG tablet Indications: Muscle spasm of back Take 1 tablet (10 mg) by mouth 3 (three) times a day as needed for muscle spasms 30 tablet 1 09/26/2024 Active dapagliflozin 10 mg oral tablet (20 sources) Sodium-Glucose Cotransporter 2 Inhibitor Start: 2025 take 1 tablet by mouth once daily Dapagliflozin Propanediol (Farxiga) 10 mg tablet Active 10 MG PO Daily 2025 12:00am Complies with drug therapy Start: 04-30-2025 take 1 tablet by manny th once daily Farxiga 10 MG Indications: Type 2 diabetes mellitus with hyperglycemia (HCC) TAKE 1 TABLET (10 MG) BY MOUTH DAILY. 30 tablet 2 04/30/2025 Active Start: 01-31-2025 take 1 tablet by manny th once daily dapagliflozin (Farxiga) 10 MG Indications: Type 2 diabetes mellitus with hyperglycemia (HCC) Take 1 tablet (10 mg) by mouth Daily 30 tablet 2 01/31/2025 Active Start: 10-25-2024 take 1 tablet by manny th once daily dapagliflozin (Farxiga) 10 MG Indications: Type 2 diabetes mellitus with hyperglycemia (CMS/HCC) Take 1 tablet (10 mg) by mouth Daily 30 tablet 2 10/25/2024 Active Start: 07-10-2024 take 1 tablet by manny th once [...] 40 mg furosemide 20 mg oral tablet (20 sources) Loop Diuretic Start: 08-19-2023 End: 03-21-2025 take 1 tablet by mouth in the morning furosemide (Lasix) 20 MG tablet Take 20 mg by mouth in the morning. 08/19/2023 03/21/2025 Discontinued gabapentin 100 mg oral capsule (20 sources) Anti-epileptic Agent Start: 2025 take 1 capsule by mouth twice daily Gabapentin 100 mg capsule Active 100 MG PO Twice daily 2025 12:00am Complies with drug therapy Start: 04-24-2024 End: 05-11-2025 take 1 capsule by mouth at bedtime gabapentin (Neurontin) 100 MG capsule Indications: Type 2 diabetes mellitus with diabetic polyneuropathy, without long-term current use of insulin (HCC) TAKE 1 CAPSULE (100 MG) BY MOUTH IN THE MORNING AND BEFORE BEDTIME 60 capsule 5 05/11/2025 Active Start: 04-25-2021 take 600 mg by mouth twice daily 600 mg, Oral, 2 TIMES DAILY, First dose on Wed04/25/21 at 1315 Start: 10-30-2019 take 600 mg by mouth twice daily 600 mg, Oral, 2 TIMES DAILY, First dose on Wed10/30/19 at 2100 glipiZIDE 10 mg oral tablet (20 sources) Sulfonylurea Start: 07-02-2025 take 1 tablet by mouth twice daily Glipizide 10 mg tablet Active 10 MG PO Twice daily 180 July 02, 2025 12:00am Complies with drug therapy Start: 01-15-2025 take 1 tablet by manny th twice daily glipiZIDE (Glucotrol) 10 MG tablet Indications: Type 2 diabetes mellitus with hyperglycemia (HCC) TAKE 1 TABLET BY MOUTH TWICE A DAY 180 tablet 1 01/15/2025 Active Start: 07-28-2024 take 1 tablet by manny th twice [...] 4,000 Units hydrocortisone 10 mg oral tablet (18 sources) Corticosteroid Start: 2025 take 1 tablet by mouth twice daily Hydrocortisone 10 mg tablet Active 10 MG PO Twice daily 2025 12:00am Complies with drug therapy Start: 07-12-2024 End: 10-19-2024 take 1 tablet [...] injectable solution (2 sources) Insulin Analog Start: insulin lispro (HUMALOG) injection vial 0-6 Units labetalol hydrochloride 5 mg/ml injectable solution (2 sources) beta-Adrenergic Neema Start: 20 mg, Intravenous, EVERY 4 HOURS PRN, [...] Discontinued levothyroxine sodium 0.05 mg oral tablet (20 sources) l-Thyroxine Start: 07-12-2025 Levothyroxine 50 mcg tablet Active 88 MCG PO Daily July 12, 2025 11:08am Complies with drug therapy Start: 2025 End: 07-12-2025 take 1 tablet by mouth once daily Levothyroxine 50 mcg tablet Discontinued 50 MCG PO Daily 2025 12:00am July 12, 2025 11:09am Start: 07-28-2024 take 1 tablet by manny th in the morning levothyroxine (Synthroid, Levoxyl) 50 [...] at 1009 First line therapy for constipation. magnesium oxide 400 mg oral capsule (1 source) Start: 07-12-2025 take 1 capsule by mouth twice daily Magnesium Oxide 400 mg magnesium capsule Active 400 MG PO Twice daily July 12, 2025 12:00am Complies with drug therapy metFORMIN hydrochloride 1000 mg oral tablet (7 sources) Biguanide take 1 tablet by mouth twice daily at mealtime metFORMIN (GLUCOPHAGE) 1000 MG tablet Take 1,000 mg by mouth 2 times daily (with meals) 0 Active metoprolol tartrate 25 mg oral tablet (20 sources) beta-Adrenergic Neema Start: 07-12-2024 End: 03-21-2025 take 1 tablet by mouth in the morning metoprolol tartrate (Lopressor) 25 MG tablet Take 25 mg by mouth in the morning and 25 mg before bedtime. 07/12/2024 03/21/2025 Discontinued Start: 08-17-2023 End: 08-16-2024 take 1 tablet by mouth every twenty-four hours in the morning metoprolol succinate XL (Toprol-XL) 50 MG 24 hr tablet Take 25 mg by mouth in the morning. 08/17/2023 08/16/2024 Active Start: 04-25-2021 End: 04-30-2021 metoprolol tartrate (LOPRESS OR) tablet 25 mg midodrine hydrochloride 2.5 mg oral tablet (7 sources) alpha-Adrenergic Agonist Start: 2025 take 1 tablet by mouth once daily at bedtime Midodrine 2.5 mg tablet Active 2.5 MG PO Three times daily 2025 12:00am do not give last dose of day after 6PM or within 4 hrs of bedtime Complies with drug therapy take 1 tablet by manny th in the morning, then take 1 tablet by mouth in the evening, then take 1 tablet by mouth at bedtime midodrine (Proamatine) 2.5 MG tablet Jeffery e 2.5 mg by mouth in the morning and 2.5 mg in the evening and 2.5 mg before bedtime. Active mupirocin 0.02 mg/mg topical ointment (3 sources) [...] tablet (20 sources) Proton Pump Inhibitor Start: 2025 take 1 tablet by mouth twice daily Pantoprazole 40 mg tablet,delayed release (DR/EC) Active 40 MG PO Twice daily 2025 12:00am Complies with drug therapy Start: 10-02-2024 take 1 tablet by manny th twice daily pantoprazole (ProtoNix) 40 MG EC tablet Indications: CAD, multiple vessel TAKE 1 TABLET BY MOUTH TWICE A [...] Oral, DAILY, First dose on Wed10/30/19 at 2029 End: 05-03-2021 take 80 mg by mouth once daily Pantoprazole Sodium ([place] OTONIX PO) Take 80 mg by mouth [...] mouth daily 0 Active polyethylene glycol 3350 57066 mg powder for oral solution (1 source) [...] 08/11/2024 Active SITagliptin 100 mg oral tablet (14 sources) Dipeptidyl Peptidase 4 Inhibitor Start: 2025 take 1 tablet by mouth once daily Sitagliptin 100 mg tablet Active 100 MG PO Daily 2025 12:00am Complies with drug therapy Start: 03-21-2025 take 1 tablet by manny th once daily SITagliptin (Januvia) 100 MG tablet Indications: Type 2 diabetes mellitus with hyperglycemia, without long-term current use of insulin (HCC) Take 1 tablet (100 mg) by mouth Daily 30 tablet 5 03/21/2025 Active take 1 tablet by manny th once daily SITagliptin (JANUVIA) 100 MG tablet Take 100 mg by mouth daily 0 Active sodium bicarbonate 650 mg oral tablet (20 sources) Start: 2025 take 1 tablet by mouth twice daily Sodium Bicarbonate 650 mg tablet Active 650 MG PO Twice daily 2025 12:00am Complies with drug therapy take 1 tablet by mouth in the mo rning sodium bicarbonate 650 MG tablet Take 650 mg by mouth in the morning and 650 mg before bedtime. Active 3 ml sodium chloride 9 mg/ml injection (12 sources) Start: 04-28-2021 5-40 mL, Intra venous, PRN, Line Care, Starting on Wed05/02/21 at [...] of ampicillin by mouth nightly 0 Active varenicline (1 source) Partial Cholinergic Nicotinic Agonist varenicline (CHANTIX STARTING MONTH RYNE) 0.5 MG [...] 2000 mg in 50 mL IVPB premix triamcinolone acetonide 5 mg/ml topical cream (20 sources) Corticosteroid Start: 2025 End: 07-12-2025 Triamcinolone Acetonide 0.5 % cream Discontinued 1 APPLIC TOPICAL Three times daily 2025 12:00am July 12, 2025 11:09am triamcinolone (K enalog) 0.5 % cream Apply topically 3 (three) times a day. Active Problems Active Problems Problem Classification Problem Date Documented Da te Episodic/Chronic Acute cerebrovascular disease (20 sources) Cerebrovascular accident; Translations: [Intraparenchymal hemorrhage of brain] Onset: 0 10-30-2019 Chronic Acute cerebrovascular disease (4 sources) Acute stroke; Translations: [Acute cerebrovascular accident (CVA)] Onset: 0 10-30-2019 Acute myocardial infarction (2 sources) Myocardial infarction; Translations: [Non-ST elevation (NSTEMI) myocardial infarction] Onset: 1 Chronic Aortic and peripheral arterial embolism or thrombosis (2 sources) Atheroembolism of unspecified lower extremity; Translations: [Atheroembolism of unspecified lower extremity] Onset: 5 Chronic Aortic; peripheral; and visceral artery aneurysms (20 sources) Aneurysm of thoracic aorta; Translations: [Aneurysm of thoracic aorta] Onset: 2 09-07-2023 Chronic Cancer of kidney and renal pelvis (20 sources) Renal cell carcinoma; Translations: [Malignant neoplasm of unspecified kidney, except renal pelvis] Onset: 4 03-15-2024 Chronic Chronic kidney disease (20 sources) Chronic kidney disease stage 3B ; Translations: [CKD stage 3b, GFR 30-44 ml/min] Onset: 4 03-15-2024 Chronic Chronic kidney disease (4 sources) Chronic kidney disease; Translations: [Chronic kidney disease, stage 3b] Onset: 4 Congestive heart failure; nonhypertensive (2 sources) Chronic systolic (congestive) heart failure; Translations: [Chronic systolic (congestive) heart failure] Onset: 5 Chronic Coronary atherosclerosis and other heart disease (20 sources) Multi vessel coronary artery disease; Translations: [Atherosclerotic heart disease of elim ira coronary artery without angina pectoris] Onset: 1 Chronic Diabetes mellitus with complications (20 sources) Type 2 diabetes mellitus with hyperglycemia; Translations: [Type 2 diabetes mellitus with diabetic peripheral angiopathy without gangrene] Onset: 2 Chronic Diabetes mellitus without complication (3 sources) Secondary diabetes mellitus; Translations: [Type 2 diabetes mellitus] Onset: 1 Chronic Disorders of lipid metabolism (20 sources) Hyperlipidemia, unspecified; Translations: [Hyperlipidemia] Onset: 2 09-07-2023 Chronic Diverticulosis and diverticulitis (1 source) Diverticulosis of intestine, part unspecified, without perforation or abscess without bleeding; Translations: [DVRTCLOS PRT UNS NO PERF/ABSC NO BL] Onset: 2 Chronic Esophageal disorders (20 sources) Gastro-esophageal reflux disease without esophagitis; Translations: [Gastroesophageal reflux disease] Onset: 2 09-07-2023 Chronic Essential hypertension (20 sources) Essential (primary) hypertension; Translations: [Benign essential hypertension] Onset: 2 Resolved: 5 09-07-2023 Chronic Late effects of cerebrovascular disease (20 sources) Left hemiparesis; Translations: [Hemiplegia and hemiparesis following cerebral infarction affecting left non-dominant side] 09-06-2024 Chronic Maintenance chemotherapy; radiotherapy (4 sources) Encounter for antineoplastic immunotherapy; Translations: [Encounter for antineoplastic chemotherapy] Onset: 4 Chronic Miscellaneous mental health disorders (4 sources) Primary insomnia; Translations: [Primary insomnia] 09-06-2024 Chronic Nutritional deficiencies (2 sources) Vitamin D deficiency, unspecified; Translations: [Vitamin D deficiency, unspecified] Onset: 4 Chronic Osteoarthritis (20 sources) Chronic osteoarthritis; Translations: [Unspecified osteoarthritis, unspecified site] Onset: 3 09-07-2023 Chronic Other aftercare (2 sources) 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; Translations: [MCC (current) use of anticoagulants] Episodic Other aftercare (1 source) 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 desk 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; Translations: [OTH BOBBIN DOFFER CURRENT DRUG THERAPY] Onset: 3 Episodic Other aftercare (1 source) Long-term current use of drug therapy; Translations: [Other [place] (current) drug therapy] 07-12-2025 Episodic Other and ill-defined cerebrovascular disease (1 source) Cerebrovascular disease, unspecified; Translations: [CEREBROVASCULAR DISEASE UNSPECIFIED] Onset: 2 Chronic Other circulatory disease (2 sources) Presence of other vascular implants and grafts; Translations: [Presence of other vascular implants and grafts] Onset: 4 Chronic Other connective tissue disease (2 sources) Triggering of digit; Translations: [Trigger finger, right middle finger] 07-12-2025 Episodic Other endocrine disorders (20 sources) Hypoadrenalism; 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 insufficiency] Onset: 4 09-06-2024 Chronic Other endocrine disorders (2 sources) Unspecified adrenocortical insufficiency; 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 insufficiency] Onset: 4 Chronic Other endocrine disorders (2 sources) Drug-induced adrenocortical insufficiency; Translations: [Drug-induced adrenocortical insufficiency] Onset: 5 Chronic Other endocrine disorders (2 sources) Other disorders of pituitary gland; Translations: [Other disorders of pituitary gland] Onset: 5 Chronic Other gastrointestinal disorders (2 sources) History of gastrointestinal bleed; Translations: [Personal history of other diseases of the digestive system] Episodic Other injuries and conditions due to external causes (20 sources) At high risk for fall; Translations: [History of falling] Onset: 3 09-07-2023 Episodic Other lower respiratory disease (2 sources) Other nonspecific abnormal finding of lung field; Translations: [Other nonspecific abnormal finding of lung field] Onset: 4 Episodic Other nervous system disorders (1 source) Intracranial space-occupying lesion; Translations: [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] Episodic Other nutritional; endocrine; and metabolic disorders (3 sources) Hypomagnesemia; Translations: [Hypomagnesemia] Onset: 1 Chronic Other nutritional; endocrine; and metabolic disorders (1 source) Hypomagnesemia; Translations: [Hypomagnesemia] Onset: 3 Chronic Peripheral and visceral atherosclerosis (20 sources) Peripheral vascular disease; Translations: [Peripheral vascular disease, unspecified] Onset: 2 09-07-2023 Chronic Pleurisy; pneumothorax; pulmonary collapse (20 sources) Atelectasis; Translations: [Atelectasis] Onset: 3 09-07-2023 Episodic Residual codes; unclassified (6 sources) Memory impairment; Translations: [Other amnesia] 05-08-2020 Episodic Residual codes; unclassified (2 sources) Altered mental status; Translations: [Altered mental status, unspecified] Episodic Residual codes; unclassified (20 sources) Insomnia; Translations: [Insomnia, unspecified] Onset: 3 09-07-2023 Episodic Residual codes; unclassified (2 sources) Acquired absence of kidney; Translations: [Acquired absence of kidney] Onset: 4 Episodic Residual codes; unclassified (2 sources) Personal history of other medical treatment; Translations: [Personal history of other medical treatment] Onset: 5 Episodic Spondylosis; intervertebral disc disorders; other back problems (2 sources) Discitis; Translations: [Discitis, unspecified, lumbosacral region] Onset: 1 Chronic Spondylosis; intervertebral disc disorders; other back problems (20 sources) Spasm of back muscles; Translations: [Muscle spasm of back] Onset: 4 09-26-2024 Episodic Substance-related disorders (1 source) Nicotine dependence, cigarettes, uncomplicated; Translations: [NICOTINE DEPEND CIGARETTES UNCOMP] Onset: 2 Chronic Thyroid disorders (20 sources) Hypothyroidism caused by drug; Translations: [Hypothyroidism due to medicaments and other exogenous substances] Onset: 4 09-06-2024 Chronic Unclassified (1 source) CONTACT W/AND (SUSP) EXPOS COVID-19; Translations: [CONTACT W/AND (SUSP) EXPOS COVID-19] Onset: 2 Unclassified (3 sources) ANEURYSM ASCEND AORTA W/O RUPTURE; Translations: [ANEURYSM ASCEND AORTA W/O RUPTURE] Onset: 2 Unclassified (1 source) Acidosis, unspecified; Translations: [Acidosis, unspecified] Onset: 5 Unclassified (2 sources) Skin Discoloration; Translations: [Skin Discoloration] Onset: 5 Unclassified (1 source) Thoracic aortic aneurysm, without rupture, unspecified; Translations: [Thoracic aortic aneurysm, without rupture, unspecified] Onset: 3 Unclassified (1 source) Aneurysm of the ascending aorta, without rupture; Translations: [Aneurysm of the ascending aorta, without rupture] Onset: 3 Past or Other Problems Problem Classification Problem Date Documented Da te Episodic/Chronic Abdominal pain (4 sources) Unspecified abdominal pain; Translations: [UNSPECIFIED ABDOMINAL PAIN] Onset: 09-02-2022 Episodic Biliary tract disease (1 source) Acute cholecystitis; Translations: [ACUTE CHOLECYSTITIS] Onset: 09-04-2022 Episodic Cardiac dysrhythmias (1 source) Tachycardia, unspecified; Translations: [TACHYCARDIA UNSPECIFIED] Onset: 09-04-2022 Episodic Coronary atherosclerosis and other heart disease (6 sources) Patient post percutaneous transluminal coronary angioplasty; Translations: [Coronary angioplasty status] Onset: 05-02-2021 Episodic Fluid and electrolyte disorders (6 sources) Hypokalemia; Translations: [Hypokalemia] Onset: 04-27-2021 Episodic Malaise and fatigue (1 source) Weakness; Translations: [WEAKNESS] Onset: 09-04-2022 Episodic Nausea and vomiting (1 source) Vomiting, unspecified; Translations: [VOMITING UNSPECIFIED] Onset: 09-04-2022 Episodic Nonspecific chest pain (1 source) Chest pain, unspecified; Translations: [CHEST PAIN UNSPECIFIED] Onset: 09-04-2022 Episodic Other aftercare (1 source) [facility] (current) use of oral hypoglycemic drugs; Translations: [MCFP USE ORAL HYPOGLYCEMIC DX] Onset: 09-04-2022 Episodic Other circulatory disease (2 sources) Other specified symptoms and signs involving the circulatory and respiratory systems; Translations: [Other specified symptoms and signs involving the circulatory and respiratory systems] Onset: 02-16-2025 Episodic Other circulatory disease (2 sources) Other hypotension; Translations: [Other hypotension] Onset: 06-30-2024 Episodic Other circulatory disease (2 sources) Personal history of transient ischemic attack (TIA), and cerebral infarction without residual deficits; Translations: [Personal history of transient ischemic attack (TIA), and cerebral infarction without residual deficits] Onset: 01-22-2025 Episodic Other liver diseases (2 sources) Unspecified jaundice; Translations: [Unspecified jaundice] Onset: 09-01-2024 Episodic Other lower respiratory disease (1 source) Shortness of breath; Translations: [SHORTNESS OF BREATH] Onset: 09-04-2022 Episodic Other lower respiratory disease (2 sources) Solitary pulmonary nodule; Translations: [Solitary pulmonary nodule] Onset: 05-01-2025 Episodic Other nervous system disorders (2 sources) Other acute postprocedural pain; Translations: [Other acute postprocedural pain] Onset: 03-01-2025 Episodic Other screening for suspected conditions (not mental disorders or infectious disease) (3 sources) Encounter for screening for malignant neoplasm of prostate; Translations: [Encounter for screening for diabetes mellitus] Onset: 11-19-2022 Episodic Other skin disorders (2 sources) Rash and other nonspecific skin eruption; Translations: [Rash and other nonspecific skin eruption] Onset: 11-10-2024 Episodic Pneumonia (except that caused by tuberculosis or sexually transmitted disease) (20 sources) Pneumonia; Translations: [Pneumonia, unspecified organism] Onset: 09-26-2024 Resolved: 03-21-2025 09-26-2024 Episodic Residual codes; unclassified (1 source) Acquired absence of other specified parts of digestive tract; Translations: [ACQ ABSENCE OTH PART DIGESTV TRACT] Onset: 10-01-2022 Episodic Septicemia (except in labor) (1 source) Sepsis, unspecified organism; Translations: [SEPSIS UNSPECIFIED ORGANISM] Onset: 09-04-2022 Episodic Skin and subcutaneous tissue infections (4 sources) Cutaneous abscess of abdominal wall; Translations: [CUTANEOUS ABSCESS OF ABDOMINAL WALL] Onset: 09-25-2022 Episodic Unclassified (1 source) ANEURYSM ASCEND AORTA W/O RUPTURE; Translations: [ANEURYSM ASCEND AORTA W/O RUPTURE] Onset: 08-21-2022 Unclassified (1 source) Acidosis, unspecified; Translations: [Acidosis, unspecified] Onset: 05-16-2025 Unclassified (1 source) Thoracic aortic aneurysm, without rupture, unspecified; Translations: [Thoracic aortic aneurysm, without rupture, unspecified] Onset: 11-10-2024 Unclassified (1 source) Aneurysm of the ascending aorta, without rupture; Translations: [Aneurysm of the ascending aorta, without rupture] Onset: 10-20-2024 Results Test Name Value Interpretation Reference Range Facility CA ECHO DOPPLER COMPLETEon 0 02-09-2025 [place] [address] Cardiology Report Signed Patient: YOEL VAN MR#: [id number] : 1955 Acct:[id number] Age/Sex: 69 / M ADM Date: 02/09/25 Loc: CARD Attending Dr: CLINTON GUEVARA Ordering Physician: CLINTON GUEVARA Date of Service: 02/09/25 Procedure(s): CA echo doppler complete Accession Number(s): [id number] cc: CLINTON GUEVARA; Alec Pinzon M.D. Patient Name: YOEL VAN MR#: [id number] : 1955 Exam Date: 02/09/2025 Ordering Doctor: DR CLINTON GUEVARA M.D. ECHOCARDIOGRAM REPORT PROCEDURE: CA ECHO DOPPLER COMPLETE INDICATIONS: Heart failure with reduced ejection fraction, hypotension, aortic aneurysm, h/o thyroid cancer- chemo COMPARISON: None. DESCRIPTION: COMPLETE ECHOCARDIOGRAM Real-time transthoracic echocardiography with 2D, M-mode, spectral and color flow Doppler performed. QUALITY: Technical quality was good. LEFT VENTRICLE: Normal chamber size. Thickened septal wall. Mild concentric hypertrophy. Systolic function is at the lower limits of normal. LV EF: Calculated left ventricular ejection fraction is 50%. Lower limits of normal left ventricular ejection fraction, (50-55%). DIASTOLIC: Normal diastolic function. ATRIAL SEPTUM: Visually appears intact. LEFT ATRIUM: Normal chamber size. RIGHT ATRIUM: Normal chamber size. RIGHT VENTRICLE: Normal chamber size. Normal right ventricular systolic function. TRICUSPID VALVE: Normal mobility and thickness. No stenosis with trivial regurgitation. No evidence of pulmonary hypertension. RVSP 19 mmHg MITRAL VALVE: Normal mobility and thickness. No evidence of mitral valve stenosis. There is no mitral annular calcification. Trivial mitral regurgitation. AORTIC VALVE: Normal trileaflet appearance. Mildly calcified aortic valve. Mildly diminished mobility. No evidence of aortic valve stenosis. No aortic regurgitation. AORTIC ROOT: Aortic root is moderately dilated (4.6 cm), previously 4.5 cm on echocardiogram from 10/26/2023. Ascending aorta is mildly dilated (3.8 cm). PULMONIC VALVE: Not well visualized. No stenosis. No regurgitation. PERICARDIUM: No evidence of pericardial effusion. IVC: Collapses with inspirations. IVC is normal in size. PLEURA: CONCLUSION: 1. Mild concentric left ventricular hypertrophy with low normal systolic function. LVEF is estimated at 50 to 55%. 2. Normal right ventricular size and systolic function. 3. Mildly calcified aortic valve with no significant stenosis or regurgitation. 4. No significant valvular dysfunction. 5. Normal right-sided pressures. 6. Moderately dilated aortic root measuring 4.6 cm. The ascending aorta is mildly dilated measuring 3.8 cm. Adult Echocardiography Procedure Report Left Ventricle LVEDD (3.7 - 5.6 cm): 4.36 cm LVESD (2.2 - 4.0 cm): 3.58 cm LVIVS thickness (0.6 - 1.2 cm): 1.28 cm LVPW thickness (0.5 - 1.0 cm): 1.15 cm e': 0.12 m/s E - e': 5.29 LVOT Max Gradient: 6.06 mm[Hg], 5.90 mm[Hg] Peak Velocity (LVOT): 1.23 m/s, 1.21 m/s LVOT Diameter 2.58 cm Left Atrium LA Volume Index (2D A2C): 27.90 ml/m2 Left Atrium Systolic Dimension: 4.42 cm Mitral Valve MV E to A Ratio: 0.69 Mitral Valve A-Wave Peak Velocity: 0.89 m/s Mitral Valve E-Wave Peak Velocity: 0.61 m/s Right Ventricle Aorta AO Root Diam: 4.60 cm Ascending Ao Diam: 3.76 cm Aortic Valve AoV Area (Peak Zachariah): 4.83 cm2, 4.83 cm2 AoV Area (VTI): 4.54 cm2, 4.54 cm2 Peak Velocity(Antegrade Flow): 1.33 m/s Peak Gradient(Antegrade Flow): 7.08 mm[Hg] Mean Velocity(Antegrade Flow): 0.85 m/s Mean Gradient(Antegrade Flow): 3.43 mm[Hg] Velocity Time Integral: 23.51 cm Tricuspid Valve Peak Velocity (Regurgitant Flow): 2.00 m/s, 1.96 m/s Pulmonic Valve Mean Gradient: 1.14 mm[Hg], 1.35 mm[Hg], 1.65 mm[Hg] Mean Velocity: 0.48 m/s, 0.54 m/s, 0.61 m/s Peak Gradient: 2.21 (more content not included)... [facility] Radiology, Radiologi MD bo - 02/09/2025 [place] [address] Cardiology Report Signed Patient: YOEL VAN MR#: [id number] : 1955 Acct:[id number] Age/Sex: 69 / M ADM Date: 02/09/25 Loc: CARD Attending Dr: CLINTON GUEVARA Ordering Physician: CLINTON GUEVARA Date of Service: 02/09/25 Procedure(s): CA echo doppler complete Accession Number(s): [id number] cc: CLINTON GUEVARA; Alec Pinzon M.D. Patient Name: YOEL VAN MR#: [id number] : 1955 Exam Date: 02/09/2025 Ordering Doctor: DR CLINTON GUEVARA M.D. ECHOCARDIOGRAM REPORT PROCEDURE: CA ECHO DOPPLER COMPLETE INDICATIONS: Heart failure with reduced ejection fraction, hypotension, aortic aneurysm, h/o thyroid cancer- chemo COMPARISON: None. DESCRIPTION: COMPLETE ECHOCARDIOGRAM Real-time transthoracic echocardiography with 2D, M-mode, spectral and color flow Doppler performed. QUALITY: Technical quality was good. LEFT VENTRICLE: Normal chamber size. Thickened septal wall. Mild concentric hypertrophy. Systolic function is at the lower limits of normal. LV EF: Calculated left ventricular ejection fraction is 50%. Lower limits of normal left ventricular ejection fraction, (50-55%). DIASTOLIC: Normal diastolic function. ATRIAL SEPTUM: Visually appears intact. LEFT ATRIUM: Normal chamber size. RIGHT ATRIUM: Normal chamber size. RIGHT VENTRICLE: Normal chamber size. Normal right ventricular systolic function. TRICUSPID VALVE: Normal mobility and thickness. No stenosis with trivial regurgitation. No evidence of pulmonary hypertension. RVSP 19 mmHg MITRAL VALVE: Normal mobility and thickness. No evidence of mitral valve stenosis. There is no mitral annular calcification. Trivial mitral regurgitation. AORTIC VALVE: Normal trileaflet appearance. Mildly calcified aortic valve. Mildly diminished mobility. No evidence of aortic valve stenosis. No aortic regurgitation. AORTIC ROOT: Aortic root is moderately dilated (4.6 cm), previously 4.5 cm on echocardiogram from 10/26/2023. Ascending aorta is mildly dilated (3.8 cm). PULMONIC VALVE: Not well visualized. No stenosis. No regurgitation. PERICARDIUM: No evidence of pericardial effusion. IVC: Collapses with inspirations. IVC is normal in size. PLEURA: CONCLUSION: 1. Mild concentric left ventricular hypertrophy with low normal systolic function. LVEF is estimated at 50 to 55%. 2. Normal right ventricular size and systolic function. 3. Mildly calcified aortic valve with no significant stenosis or regurgitation. 4. No significant valvular dysfunction. 5. Normal right-sided pressures. 6. Moderately dilated aortic root measuring 4.6 cm. The ascending aorta is mildly dilated measuring 3.8 cm. Adult Echocardiography Procedure Report Left Ventricle LVEDD (3.7 - 5.6 cm): 4.36 cm LVESD (2.2 - 4.0 cm): 3.58 cm LVIVS thickness (0.6 - 1.2 cm): 1.28 cm LVPW thickness (0.5 - 1.0 cm): 1.15 cm e': 0.12 m/s E - e': 5.29 LVOT Max Gradient: 6.06 mm[Hg], 5.90 mm[Hg] Peak Velocity (LVOT): 1.23 m/s, 1.21 m/s LVOT Diameter 2.58 cm Left Atrium LA Volume Index (2D A2C): 27.90 ml/m2 Left Atrium Systolic Dimension: 4.42 cm Mitral Valve MV E to A Ratio: 0.69 Mitral Valve A-Wave Peak Velocity: 0.89 m/s Mitral Valve E-Wave Peak Velocity: 0.61 m/s Right Ventricle Aorta AO Root Diam: 4.60 cm Ascending Ao Diam: 3.76 cm Aortic Valve AoV Area (Peak Zachariah): 4.83 cm2, 4.83 cm2 AoV Area (VTI): 4.54 cm2, 4.54 cm2 Peak Velocity(Antegrade Flow): 1.33 m/s Peak Gradient(Antegrade Flow): 7.08 mm[Hg] Mean Velocity(Antegrade Flow): 0.85 m/s Mean Gradient(Antegrade Flow): 3.43 mm[Hg] Velocity Time Integral: 23.51 cm Tricuspid Valve Peak Velocity (Regurgitant Flow): 2.00 m/s, 1.96 m/s Pulmonic Valve Mean Gradient: 1.14 mm[Hg], 1.35 mm[Hg], 1.65 mm[Hg] Mean Velocity: 0.48 m/s, 0.54 m/s, 0.61 m/s Peak Gradient: 2.21 mm[Hg], 2.61 mm[Hg], 3.36 mm[Hg] Right Atrium Right Atrium Systolic Pressure: 30.26 ml, 30.26 ml Dictated by: Clinton Guevara M.D. on 02/09/2025 at 12:06 Approved by: Clinton Guevara M.D. on 02/09/2025 at 12:12 Dictated By: CLINTON GUEVARA Signed By: 02/09/251212 DD/ 11 TD/TT: Locator Specialist: [facility] Radiology Study observation (narrative) [facility] CA ECHO DOPPLER COMPLETEOrde red By: Radiologist Radiology on 02-09-2025 [facility] Work Phone: MICROALBUMIN, RAND URon 02-0 mALB 26.0 mg/L Normal <=30.0 [facility] Comment on above: Performed By: #### P T, PTT #### [facility] [address] [place] [address] Dr. Mani Carpio CBC AUTO DIFFon 11-18-2022 BASO # 0.1 103/ul Normal 0.0-0.1 [facility] Comment on above: Performed By: #### P T, PTT #### [facility] [address] [place] [address] Dr. Mani Carpio Basophils/100 WBC (Bld) 0.4 % Normal 0.2-2.0 [facility] Comment on above: Performed By: #### P T, PTT #### [facility] [address] [place] [address] Dr. Mani Carpio EO # 0.1 103/ul Normal 0.0-0.7 [facility] Comment on above: Performed By: #### P T, PTT #### [facility] [address] [place] [address] Dr. Mani Carpio Eosinophils/100 WBC (Bld) 0.8 % Critically low 0.9-7.0 [facility] Comment on above: Performed By: #### P T, PTT #### [facility] [address] [place] [address] Dr. Mani Carpio Erythrocyte distribution width (RBC) [Ratio] 16.2 % Critically high 11.0-15.0 [facility] Comment on above: Performed By: #### P T, PTT #### [facility] [address] [place] [address] Dr. Mani Carpio Hematocrit (Bld) [Volume fraction] 41.3 % Critically low 42.0-54.0 [facility] Comment on above: Performed By: #### P T, PTT #### [facility] [address] [place] [address] Dr. Mani Carpio Hemoglobin (Bld) [Mass/Vol] 13.0 g/dL Critically low 14.0-18.0 [facility] Comment on above: Performed By: #### P T, PTT #### [facility] [address] [place] [address] Dr. Mani Carpio IG # 0.05 10e3/ul Critically high 0.00-0.03 [facility] Comment on above: Performed By: #### P T, PTT #### [facility] [address] [place] [address] Dr. Mani Carpio IG % 0.4 % Normal 0.0-0.5 [facility] Comment on above: Performed By: #### P T, PTT #### [facility] [address] [place] [address] Dr. Mani Carpio LYMPH # 2.0 103/ul Normal 1.2-3.8 [facility] Comment on above: Performed By: #### P T, PTT #### [facility] [address] [place] [address] Dr. Mani Carpio Lymphocytes/100 WBC (Bld) 18.1 % Critically low 20.5-60.0 [facility] Comment on above: Performed By: #### P T, PTT #### [facility] [address] [place] [address] Dr. Mani Carpio MANUAL DIFF REQ NO Normal [facility] Comment on above: Performed By: #### P T, PTT #### [facility] [address] [place] [address] Dr. Mani Carpio MCH (RBC) [Entitic mass] 29.7 pg Normal 25.9-34.0 [facility] Comment on above: Performed By: #### P T, PTT #### [facility] [address] [place] [address] Dr. Mani Carpio MCHC (RBC) [Mass/Vol] 31.5 g/dL Normal 29.9-35.2 [facility] Comment on above: Performed By: #### P T, PTT #### [facility] [address] [place] [address] Dr. Mani Carpio MCV (RBC) [Entitic vol] 94.3 fL Critically high 80.0-94 .0 [facility] Comment on above: Performed By: #### P T, PTT #### [facility] [address] [place] [address] Dr. Mani Carpio MONO # 0.7 103/ul Normal 0.3-0.8 [facility] Comment on above: Performed By: #### P T, PTT #### [facility] [address] [place] [address] Dr. Mani Carpio Monocytes/100 WBC (Bld) 5.9 % Normal 1.7-12.0 [facility] Comment on above: Performed By: #### P T, PTT #### [facility] [address] [place] [address] Dr. Mani Carpio NEUT # 8.3 103/ul Critically high 1.4-6.5 [facility] Comment on above: Performed By: #### P T, PTT #### [facility] [address] [place] [address] Dr. Mani Carpio Neutrophils/100 WBC (Bld) 74.4 % Normal 43.0-75.0 [facility] Comment on above: Performed By: #### P T, PTT #### [facility] [address] [place] [address] Dr. Mani Carpio Platelet mean volume (Bld) [Entitic vol] 10.0 fL Normal 9.5-13.5 [facility] Comment on above: Performed By: #### P T, PTT #### [facility] [address] [place] [address] Dr. Mani Carpio PLT 281 103/ul Normal 150-450 [facility] Comment on above: Performed By: #### P T, PTT #### [facility] [address] [place] [address] Dr. Mani Carpio RBC 4.38 106/ul Critically low 4.70-6.10 [facility] Comment on above: Performed By: #### P T, PTT #### [facility] [address] [place] [address] Dr. Mani Carpio WBC 11.2 103/ul Critically high 4.0-11.0 [facility] Comment on above: Performed By: #### P T, PTT #### [facility] [address] [place] [address] Dr. Mani Carpio GLYCOHEMOGLOBIN A1Con 2022 ADA RECOMMENDATION SEE BELOW Normal [facility] Comment on above: Result Comment: ADA RECOMMENDED LIMIT 4.0 - 6.0 ADA THERAPEUTIC TARGET < 7.0 ACTION SUGGESTED > 7.0 Performed By: #### A 1C #### [facility] [address] [place] [address] Dr. Mani Carpio Glucose [Mass/Vol] 146 mg/dL Normal [facility] Comment on above: Performed By: #### A 1C #### [facility] [address] [place] [address] Dr. Mani Carpio HbA1c (Bld) [Mass fraction] 6.7 % Critically high 4.5-6.2 [facility] Comment on above: Performed By: #### A 1C #### [facility] [address] [place] [address] Dr. Mani Carpio LIPID PROFILEon 11-18-2022 CHOL-HDL RATIO NORM SEE BELOW Normal [facility] Comment on above: Result Comment: 3.3 - 4.4 LOW RISK 4.4 - 7.1 AVERAGE RISK 7.1 - 11.0 MODERATE RISK >11.0 HIGH RISK Performed By: #### P T, PTT #### [facility] [address] [place] [address] Dr. Mani Carpio Cholesterol [Mass/Vol] 109 mg/dL Normal <=200 [facility] Comment on above: Performed By: #### P T, PTT #### [facility] [address] [place] [address] Dr. Mani Carpio Cholesterol in HDL [Mass/Vol] 28 mg/dL Critically low 40-60 [facility] Comment on above: Performed By: #### P T, PTT #### [facility] [address] [place] [address] Dr. Mani Carpio Cholesterol in LDL [Mass/Vol] 41.2 mg/dL Normal [facility] Comment on above: Performed By: #### P T, PTT #### [facility] [address] [address] [address] Mani Carpio Cholesterol.total/Dania sterol in HDL [Mass ratio] 3.9 {ratio} Normal [facility] Comment on above: Performed By: #### P T, PTT #### [facility] [address] [address] [address] Mani Carpio HDL NORMAL > or = 60 mg/dl - LO W CARDIOVASCULAR RISK <40 mg/dl - HIGH CARDIOVASCULAR RISK Normal [facility] Comment on above: Performed By: #### P T, PTT #### [facility] [address] [address] [address] Mani Carpio LDL CALC NORMAL SEE BELOW Normal [facility] Comment on above: Result Comment: <100 mg/dl OPTIMAL 100 - 129 mg/dl NEAR OR ABOVE OPTIMAL 130 - 159 mg/dl BORDERLINE HIGH 160 - 189 mg/dl HIGH >190 mg/dl VERY HIGH Performed By: #### P T, PTT #### [facility] [address] [address] [address] Mani Carpio Triglyceride [Mass/Vol] 199 mg/dL Critically high <=150 [facility] Comment on above: Performed By: #### P T, PTT #### [facility] [address] [address] [address] Mani Carpio VLDL CALC 39.8 mg/dL Normal [facility] Comment on above: Performed By: #### P T, PTT #### [facility] [address] [address] [address] Mani Carpio LIVER PROFILEon 11-18-2022 Albumin [Mass/Vol] 3.6 g/dL Normal 3.4-5.0 [facility] Comment on above: Performed By: #### P T, PTT #### [facility] [address] [place] [address] Dr. Mani Crapio Albumin/Globulin [Mass ratio] 0.9 {ratio} Normal [facility] Comment on above: Performed By: #### P T, PTT #### [facility] [address] [place] [address] Dr. Mani Carpio ALP [Catalytic activity/Vol] 76 U/L Normal 46-116 [facility] Comment on above: Performed By: #### P T, PTT #### [facility] [address] [place] [address] Dr. Mani Carpio ALT [Catalytic activity/Vol] 26 U/L Normal 16-63 [facility] Comment on above: Performed By: #### P T, PTT #### [facility] [address] [place] [address] Dr. Mani Carpio AST [Catalytic activity/Vol] 17 U/L Normal 15-37 [facility] Comment on above: Performed By: #### P T, PTT #### [facility] [address] [place] [address] Dr. Mani Carpio BILI, CONJUGATED 0.2 mg/dL Normal 0.0-0.2 [facility] Comment on above: Performed By: #### P T, PTT #### [facility] [address] [place] [address] Dr. Mani Carpio Bilirubin [Mass/Vol] 0.7 mg/dL Normal 0.2-1.0 [facility] Comment on above: Performed By: #### P T, PTT #### [facility] [address] [place] [address] Dr. Mani Carpio Globulin (S) [Mass/Vol] 4.2 g/dL Normal [facility] Comment on above: Performed By: #### P T, PTT #### [facility] [address] [place] [address] Dr. Mani Carpio Protein [Mass/Vol] 7.8 g/dL Normal 6.4-8.2 [facility] Comment on above: Performed By: #### P T, PTT #### [facility] [address] [place] [address] Dr. Mani Carpio PROF CHEM 8 (BAS METB)on Anion gap [Moles/Vol] 12.0 mmol/L Normal [facility] Comment on above: Performed By: #### P T, PTT #### [facility] [address] [place] [address] Dr. Mani Carpio Calcium [Mass/Vol] 9.5 mg/dL Normal 8.5-10.1 [facility] Comment on above: Performed By: #### P T, PTT #### [facility] [address] [address] [address] Mani Carpio Chloride [Moles/Vol] 100 mmol/L Normal 98-107 [facility] Comment on above: Performed By: #### P T, PTT #### [facility] [address] [place] [address] Dr. Mani Carpio CO2 [Moles/Vol] 28.9 mmol/L Normal 21.0-32.0 [facility] Comment on above: Performed By: #### P T, PTT #### [facility] [address] [place] [address] Dr. Mani Carpio Creatinine [Mass/Vol] 1.01 mg/dL Normal 0.70-1.30 [facility] Comment on above: Performed By: #### P T, PTT #### [facility] [address] [place] [address] Dr. Mani Carpio EGFR-AF SERBIAN >60 Normal >=60 [facility] Comment on above: Performed By: #### P T, PTT #### [facility] [address] [place] [address] Dr. Mani Carpio EGFR-NON AF SERBIAN >60 Normal >=60 [facility] Comment on above: Performed By: #### P T, PTT #### [facility] [address] [place] [address] Dr. Mani Carpio Glucose [Mass/Vol] 221 mg/dL Critically high 74-106 [facility] Comment on above: Performed By: #### P T, PTT #### [facility] [address] [place] [address] Dr. Mani Carpio Potassium [Moles/Vol] 3.9 mmol/L Normal 3.5-5.1 [facility] Comment on above: Performed By: #### P T, PTT #### [facility] [address] [place] [address] Dr. Mani Carpio Sodium [Moles/Vol] 137 mmol/L Normal 136-145 [facility] Comment on above: Performed By: #### P T, PTT #### [facility] [address] [place] [address] Dr. Mani Carpio Urea nitrogen [Mass/Vol] 14.0 mg/dL Normal 7.0-18.0 [facility] Comment on above: Performed By: #### P T, PTT #### [facility] [address] [place] [address] Dr. Mani Carpio Urea nitrogen/Creatinine [Mass ratio] 13.9 mg/mg Normal [facility] Comment on above: Performed By: #### P T, PTT #### [facility] [address] [place] [address] Dr. Mani Carpio ACETONE SERUMon 09-02-2022 ACETONE Negative Normal NEGATIVE [facility] Comment on above: Performed By: #### P T, PTT #### [facility] [address] [place] [address] Dr. Mani Carpio BNPon 09-02-2022 Natriuretic peptide B (Bld) [Mass/Vol] 466.0 pg/mL Normal <=900.0 [facility] [facility] Comment on above: Performed By: #### L ACT #### [facility] [address] [place] [address] Dr. Mani Carpio CBC W MANUAL DIFFon 09-02-20 22 ATYPICAL LYMPH # Normal [facility] Comment on above: Performed By: #### C BCMAN #### [facility] [address] [place] [address] Dr. Mani Carpio ATYPICAL LYMPH % Normal [facility] Comment on above: Performed By: #### C BCMAN #### [facility] [address] [place] [address] Dr. Mani Carpio BAND # Normal 0.0-0.3 [facility] Comment on above: Performed By: #### C BCMAN #### [facility] [address] [place] [address] Dr. Mani Carpio BAND % Normal 0-5 [facility] Comment on above: Performed By: #### C BCMAN #### [facility] [address] [address] [address] Mani Carpio BASOM # 0.23 103/ul Critically high 0.00-0.10 [facility] Comment on above: Performed By: #### C JUAN R #### [facility] [address] [address] [address] Mani Carpio BASOM % 1.0 % Normal 0.2-2.0 [facility] Comment on above: Performed By: #### C BCKEVIN #### [facility] [address] [place] [address] Dr. Mani Carpio BLAST # Normal [facility] Comment on above: Performed By: #### C JUAN R #### [facility] [address] [place] [address] Dr. Mani Carpio BLAST % Normal [facility] Comment on above: Performed By: #### C JUAN R #### [facility] [address] [place] [address] Dr. Mani Carpio CORRECTED WBC Normal 4.0-11.0 [facility] Comment on above: Performed By: #### C JUAN R #### [facility] [address] [place] [address] Dr. Mani Carpio EOS # 0.00 103/ul Normal 0.00-0.70 [facility] Comment on above: Performed By: #### C JUAN R #### [facility] [address] [place] [address] Dr. Mani Carpio EOS% 0.0 % Critically low 0.9-7.0 [facility] Comment on above: Performed By: #### C JUAN R #### [facility] [address] [place] [address] Dr. Mani Carpio HCT 43.3 % Normal 42.0-54.0 [facility] Comment on above: Performed By: #### C JUAN R #### [facility] [address] [place] [address] Dr. Mani Carpio HGB 15.1 g/dl Normal 14.0-18.0 [facility] Comment on above: Performed By: #### C JUAN R #### [facility] [address] [address] [address] Mani Carpio LYMPHM # 2.49 103/ul Normal 1.20-3.80 [facility] Comment on above: Performed By: #### C JUAN R #### [facility] [address] [address] [address] Mani Carpio LYMPHM% 11.0 % Critically low 20.5-60.0 [facility] Comment on above: Performed By: #### C JUAN R #### [facility] [address] [place] [address] Dr. Mani Carpio MCH 30.8 pg Normal 25.9-34.0 [facility] Comment on above: Performed By: #### C JUAN R #### [facility] [address] [place] [address] Dr. Mani Carpio MCHC 34.9 g/dl Normal 29.9-35.2 [facility] Comment on above: Performed By: #### Patrick PETE #### [facility] [address] [place] [address] Dr. Mani Carpio MCV 88.2 fL Normal 80.0-94.0 [facility] Comment on above: Performed By: #### C JUAN R #### [facility] [address] [place] [address] Dr. Mani Carpio METAMYELOCYTE # Normal [facility] Comment on above: Performed By: #### Patrick PETE #### [facility] [address] [place] [address] Dr. Mani Carpio METAMYELOCYTE % Normal [facility] Comment on above: Performed By: #### Patrick PETE #### [facility] [address] [place] [address] Dr. Mani Carpio MONOM# 2.26 103/ul Critically high 0.30-0.80 [facility] Comment on above: Performed By: #### C JUAN R #### [facility] [address] [place] [address] Dr. Mani Carpio MONOM% 10.0 % Normal 1.7-12.0 [facility] Comment on above: Performed By: #### C JUAN R #### [facility] [address] [place] [address] Dr. Mani Carpio MPV 10.1 fL Normal 9.5-13.5 [facility] Comment on above: Performed By: #### C JUAN R #### [facility] [address] [place] [address] Dr. Mani Carpio MYELOCYTE # Normal [facility] Comment on above: Performed By: #### C BCMAN #### [facility] [address] [place] [address] Dr. Mani Carpio MYELOCYTE % Normal [facility] Comment on above: Performed By: #### C JUAN R #### [facility] [address] [place] [address] Dr. Mani Carpio NRBC Normal [facility] Comment on above: Performed By: #### C JUAN R #### [facility] [address] [place] [address] Dr. Mani Carpio PLT 311 103/ul Normal 150-450 [facility] Comment on above: Performed By: #### C JUAN R #### [facility] [address] [place] [address] Dr. Mani Carpio RBC 4.91 106/ul Normal 4.70-6.10 [facility] Comment on above: Performed By: #### C JUAN R #### [facility] [address] [place] [address] Dr. Mani Carpio RDW 14.2 % Normal 11.0-15.0 [facility] Comment on above: Performed By: #### C JUAN R #### [facility] [address] [place] [address] Dr. Mani Carpio SEG # 17.63 103/ul Critically high 1.40-6.50 [facility] Comment on above: Performed By: #### C JUAN R #### [facility] [address] [place] [address] Dr. Mani Carpio SEG % 78.0 % Critically high 43.0-75.0 [facility] Comment on above: Performed By: #### C KEVIN #### [facility] [address] [place], [place] [address] Dr. Mani Carpio WBC 22.6 103/ul Critically high 4.0-11.0 [facility] Comment on above: Performed By: #### C KEVIN #### [facility] [address] [place], [place] [address] ABD/PELV W CONon [...] by: STEPHIE RODRIGUEZ Date: 2022-09-02 15:36 Normal [facility] CT STROKE HEAD WOon 09-02-20 22 [...] JULISSA HACKETT Date: 2022-09-02 14:20 Normal [facility] CULTURE BLOODon 09-02-2022 Microscopic examination of blood, culture Culture Observations: NO GROWTH AT 5 DAYS. Normal [facility] Comment on above: Performed By: #### L ACT #### [facility] [address] [address] [address] Mani Carpio Microscopic examination of blood, culture Culture Observations: NO GROWTH AT 5 DAYS. Normal [facility] Comment on above: Performed By: #### L ACT #### [facility] [address] [address] [address] Mani Carpio Covid-19 PCR ([facility])on 08-18 SARS-CoV-2 (COVID-19) RNA PLACIDO+probe Ql (Unsp spec) Not detected Normal NOT DETECTED [facility] Comment on above: Result Comment: When [...] for this test is supported by the [place] of Health and Human Service's declaration that [...] used). Performed By: #### L ACT #### [facility] [address] [place] [address] Dr. Mani Carpio ER URINE PROFILEon 2 Bilirubin Ql (U) Negative Normal NEGATIVE [facility] Comment on above: Performed By: #### U MICRO, ERUR #### [facility] [address] [place] [address] Dr. Mani Carpio Clarity (U) CLEAR Normal CLEAR [facility] Comment on above: Performed By: #### U MICRO, ERUR #### [facility] [address] [place] [address] Dr. Mani Carpio Color (U) LT. YELLOW Normal YELLOW [facility] Comment on above: Performed By: #### U MICRO, ERUR #### [facility] [address] [place] [address] Dr. Mani Carpio ERUAHD A micrscopic examina tion will be performed if indicated. Normal [facility] Comment on above: Performed By: #### U MICRO, ERUR #### [facility] [address] [place] [address] Dr. Mani Carpio Glucose Ql (U) 500 mg/dl Abnormal NEGATIVE [facility] Comment on above: Performed By: #### U MICRO, ERUR #### [facility] [address] [place] [address] Dr. Mani Carpio Hemoglobin Ql (U) SMALL Abnormal NEGATIVE [facility] Comment on above: Performed By: #### U MICRO, ERUR #### [facility] [address] [place] [address] Dr. Mani Carpio Ketones Ql (U) Negative Normal NEGATIVE [facility] Comment on above: Performed By: #### U MICRO, ERUR #### [facility] [address] [place] [address] Dr. Mani Carpio LEUKOCYTES Negative Normal NEGATIVE [facility] Comment on above: Performed By: #### U MICRO, ERUR #### [facility] [address] [place] [address] Dr. Mani Carpio Nitrite Ql (U) Negative Normal NEGATIVE [facility] Comment on above: Performed By: #### U MICRO, ERUR #### [facility] [address] [place] [address] Dr. Mani Carpio pH (U) 7.0 [pH] Normal 5-9 [facility] Comment on above: Performed By: #### U MICRO, ERUR #### [facility] [address] [place] [address] Dr. Mani Carpio Protein (U) [Mass/Vol] 100 mg/dL Abnormal NEGAT SONYA/ TRACE [facility] Comment on above: Performed By: #### U MICRO, ERUR #### [facility] [address] [place] [address] Dr. Mani Carpio SPEC GRAVITY 1.015 Normal 1.005-<=1. 025 [facility] Comment on above: Performed By: #### U MICRO, ERUR #### [facility] [address] [place] [address] Dr. Mani Carpio UR MICRO IND INDICATED Normal [facility] Comment on above: Performed By: #### U MICRO, ERUR #### [facility] [address] [place] [address] Dr. Mani Carpio Urobilinogen Qn (U) 0.2 {Javon'U}/dL Normal 0.2 - 1. 0 [facility] Comment on above: Performed By: #### U MICRO, ERUR #### [facility] [address] [place] [address] Dr. Mani Carpio LACTATE/LACTIC ACIDon 2021 Lactate [Moles/Vol] 3.1 mmol/L Critically high 0.4-1.9 [facility] Comment on above: Performed By: #### L ACT #### [facility] [address] [place] [address] Dr. Mani Carpio Lactate [Moles/Vol] 4.0 mmol/L Critically high 0.4-1.9 [facility] Comment on above: Performed By: #### L ACT #### [facility] [address] [place] [address] Dr. Mani Carpio LIPASEon 09-02-2022 Lipase [Catalytic activity/Vol] 60.0 U/L Critically low 73.0-393.0 [facility] Comment on above: Performed By: #### L ACT #### [facility] [address] [place] [address] Dr. Mani Carpio PH VENOUS BLOODon 09-02-2022 PCO2 VENOUS 32.5 mmHg Critically low 40.0-52.0 [facility] Comment on above: Performed By: #### P HVEN #### [facility] [address] [place] [address] Dr. Mani Carpio pH VENOUS 7.454 Critically high 7.330-7.43 0 [facility] Comment on above: Performed By: #### P HVEN #### [facility] [address] [place] [address] Dr. Mani Carpio PROF 14(COMP METB)on 022 Albumin [Mass/Vol] 3.8 g/dL Normal 3.4-5.0 [facility] Comment on above: Performed By: #### L ACT #### [facility] [address] [place] [address] Dr. Mani Carpio Albumin/Globulin [Mass ratio] 0.8 {ratio} Normal [facility] Comment on above: Performed By: #### L ACT #### [facility] [address] [place] [address] Dr. Mani Carpio ALP [Catalytic activity/Vol] 83 U/L Normal 46-116 [facility] Comment on above: Performed By: #### L ACT #### [facility] [address] [place] [address] Dr. Mani Carpio ALT [Catalytic activity/Vol] 23 U/L Normal 16-63 [facility] Comment on above: Performed By: #### L ACT #### [facility] [address] [address] [address] Mani Carpio Anion gap [Moles/Vol] 13.9 mmol/L Normal [facility] Comment on above: Performed By: #### L ACT #### [facility] [address] [address] [address] Mani Carpio AST [Catalytic activity/Vol] 14 U/L Critically low 15-37 [facility] Comment on above: Performed By: #### L ACT #### [facility] [address] [place] [address] Dr. Mani Carpio Bilirubin [Mass/Vol] 1.1 mg/dL Critically high 0.2-1.0 [facility] Comment on above: Performed By: #### L ACT #### [facility] [address] [place] [address] Dr. Mani Carpio Calcium [Mass/Vol] 10.0 mg/dL Normal 8.5-10.1 [facility] Comment on above: Performed By: #### L ACT #### [facility] [address] [address] [address] Mani Carpio Chloride [Moles/Vol] 96 mmol/L Critically low 98-107 [facility] Comment on above: Performed By: #### L ACT #### [facility] [address] [address] [address] Mani Carpio CO2 [Moles/Vol] 24.8 mmol/L Normal 21.0-32.0 [facility] Comment on above: Performed By: #### L ACT #### [facility] [address] [address] [address] Mani Carpio Creatinine [Mass/Vol] 1.25 mg/dL Normal 0.70-1.30 [facility] Comment on above: Performed By: #### L ACT #### [facility] [address] [address] [address] Mani Carpio EGFR-AF SERBIAN >60 Normal >=60 [facility] Comment on above: Performed By: #### L ACT #### [facility] [address] [address] [address] Mani Carpio EGFR-NON AF SERBIAN 58 mL/min/1.73m2 Critically low >=60 [facility] Comment on above: Performed By: #### L ACT #### [facility] [address] [address] [address] Mani Carpio Globulin (S) [Mass/Vol] 4.6 g/dL Normal [facility] Comment on above: Performed By: #### L ACT #### [facility] [address] [place] [address] Dr. Mani Carpio Glucose [Mass/Vol] 204 mg/dL Critically high 74-106 [facility] Comment on above: Performed By: #### L ACT #### [facility] [address] [address] [address] Mani Carpio Potassium [Moles/Vol] 3.7 mmol/L Normal 3.5-5.1 [facility] Comment on above: Performed By: #### L ACT #### [facility] [address] [address] [address] Mani Carpio Protein [Mass/Vol] 8.4 g/dL Critically high 6.4-8.2 [facility] Comment on above: Performed By: #### L ACT #### [facility] [address] [address] [address] Mani Carpio Sodium [Moles/Vol] 131 mmol/L Critically low 136-145 [facility] Comment on above: Performed By: #### L ACT #### [facility] [address] [address] [address] Mani Carpio Urea nitrogen [Mass/Vol] 17.0 mg/dL Normal 7.0-18.0 [facility] Comment on above: Performed By: #### L ACT #### [facility] [address] [place] [address] Dr. Mani Carpio Urea nitrogen/Creatinine [Mass ratio] 13.6 mg/mg Normal [facility] Comment on above: Performed By: #### L ACT #### [facility] [address] [address] [address] Mani Carpio PROTIMEon 09-02-2022 INR Coag (PPP) [Relative time] 1.07 {INR} Normal [facility] Comment on above: Performed By: #### P T, PTT #### [facility] [address] [place] [address] Dr. Mani Carpio INR GUIDELINES SEE BELOW Normal [facility] Comment on above: Result Comment: SETH RED INR: 2.0 - 3.0 CONDITIONS NOT LISTED BELOW 2.5 - 3.5 FOR PROSTHETIC HEART VALVE REPLACEMENT 2.5 - 3.5 RECURRENT THROMBOSIS Performed By: #### P T, PTT #### [facility] [address] [place] [address] Dr. Mani Carpio PT Coag (PPP) [Time] 11.5 s Normal 9.0-11.6 [facility] Comment on above: Performed By: #### P T, PTT #### [facility] [address] [place] [address] Dr. Mani Carpio PTTon 09-02-2022 aPTT Coag (Bld) [Time] 29.3 s Normal 22.3-36.2 [facility] Comment on above: Performed By: #### P T, PTT #### [facility] [address] [place] [address] Dr. Mani Carpio TROPONIN, HIGH SENSITIVITYon 09-02-2022 HSTROP 13.4 pg/mL Normal 4.0-76.1 [facility] Comment on above: Result Comment: CUT- OFF POINTS HAVE BEEN ESTABLISHED BASED ON THE FOURTH UNIVERSAL DEFINITIONS OF MYOCARDIAL INFARCTION. THE UPPER REFERENCE LIMIT (URL) OF TROPONIN, DEFINED THE 99TH PERCENTILE OF cTnI DISTRIBUTION IN A REFERENCE POPULATION, HAS BEEN CONFIRMED THE DECISION THRESHOLD FOR CA DIAGNOSIS. Performed By: #### L ACT #### [facility] [address] [place] [address] Dr. Mani Carpio TSHon 09-02-2022 TSH 0.555 uIU/mL Normal 0.358-3.74 0 [facility] Comment on above: Performed By: #### L ACT #### [facility] [address] [place] [address] Dr. Mani Carpio URINE MICROSCOPIC ONLYon BACTERIA TRACE Abnormal NONE SEEN [facility] Comment on above: Performed By: #### U MICRO, ERUR #### [facility] [address] [place] [address] Dr. Mani Carpio Bacteria identified Cx Nom (U) NOT INDICATED Normal [facility] Comment on above: Performed By: #### U MICRO, ERUR #### [facility] [address] [place] [address] Dr. Mani Carpio CAST NONE SEEN Normal NONE SEEN [facility] Comment on above: Performed By: #### U MICRO, ERUR #### [facility] [address] [place] [address] Dr. Mani Carpio Crystals LM Nom (Urine sed) NONE SEEN Normal NONE SEEN [facility] Comment on above: Performed By: #### U MICRO, ERUR #### [facility] [address] [place] [address] Dr. Mani Carpio Epithelial cells LM Ql (Urine sed) RARE Normal NONE SEEN /RARE [facility] Comment on above: Performed By: #### U MICRO, ERUR #### [facility] [address] [place] [address] Dr. Mani Carpio MUCOUS NONE SEEN Normal NONE SEEN [facility] Comment on above: Performed By: #### U MICRO, ERUR #### [facility] [address] [place] [address] Dr. Mani Carpio RBC 5-10 Abnormal 0-2 [facility] Comment on above: Performed By: #### U MICRO, ERUR #### [facility] [address] [place] [address] Dr. Mani Carpio WBC 0-2 Abnormal NONE SEEN [facility] Comment on above: Performed By: #### U MICRO, ERUR #### [facility] [address] [address] [address] Mani Carpio US SINGLE QUAD RT [...] ELBA SHIPMAN Date: 2022-09-02 17:25 Normal [facility] US MARQUIS DOP LEG BILon 022 [...] by: HARMONY BRIGGS Date: 2022-09-02 16:58 Normal [facility] XR CHEST 1 Von 09-02-2022 XR [...] by: SHAHIDA ANDERSON Date: 2022-09-02 14:24 Normal [facility] ECHOCARDIO M/2D COMPLETEon 1 10-21-2021 ECHOCARDIO M/2D COMPLETE Patient: YOEL VAN Exam Date: 08/21/2022 : 1955 Gender:M Ordering : [facility] Admission #: [id number] Family : Order #: [id number] CLICK HERE TO VIEW EXAM ECHOCARDIOGRAM REPORT [...] Guevara M.D. on 08/21/2022 at 18:08 Normal [facility] GLYCOHEMOGLOBIN A1Con 2021 ADA RECOMMENDATION SEE BELOW Normal [facility] Comment on above: Result Comment: ADA RECOMMENDED LIMIT 4.0 - 6.0 ADA THERAPEUTIC TARGET < 7.0 ACTION SUGGESTED > 7.0 Performed By: #### A 1C #### [facility] [address] [address] [address] Mani Carpio Glucose [Mass/Vol] 186 mg/dL Normal [facility] Comment on above: Performed By: #### A 1C #### [facility] [address] [address] [address] Mani Carpio HbA1c (Bld) [Mass fraction] 8.1 % Critically high 4.5-6.2 [facility] Comment on above: Performed By: #### A 1C #### [facility] [address] [address] [address] Mani Carpio APTTon 05-03-2021 aPTT Coag (Bld) [Time] 20.8 s Normal 20.5-30.5 [facility] Comment on above: Result Comment: IV Heparin Therapy Range: 48.6-77.8 Performed By: #### S ED, CRP, STROKE #### [facility] [employer] [address] [place] [address] Welder Explosion: Bowen Lemon MD APTTOrdered By: Ning martines on 05-03-2021 aPTT Coag (Bld) [Time] 20.8 s [facility] [employer] Phone: Comment on above: IV Heparin Therapy Range: 48.6-77.8 [facility] [employer] Phone: Basic Metab w/rfx MGon 05-03 (cont.) Normal [facility] Comment on above: Result Comment: Aver age GFR for 60-69 years old: 85 mL/min/1.73sq m Chronic Kidney Disease: <60 mL/min/1.73sq m Kidney failure: <15 mL/min/1.73sq m eGFR calculated using average adult body mass. Additional eGFR calculator available at: http://www.[employer].com/multiple_crcl_2012.htm Performed By: #### S ED, CRP, STROKE #### [facility] [address] [place] [id number] Wel[employer] Explosion: Bowen Lemon MD Anion gap [Moles/Vol] 12 mmol/L Normal 9-17 [facility] Comment on above: Performed By: #### S ED, CRP, STROKE #### [facility] [address] [place] [address] [employer]osion: Bowen Lemon MD Calcium [Mass/Vol] 9.4 mg/dL Normal 8.6-10.4 [facility] Comment on above: Performed By: #### S ED, CRP, STROKE #### [facility] [address] [place] [address] Welder Explosion: Bowen Lemon MD Chloride [Moles/Vol] 103 mmol/L Normal 98-107 [facility] Comment on above: Performed By: #### S ED, CRP, STROKE #### [facility] [address] [place] [address] [employer] Explosion: Bowen Lemon MD CO2 [Moles/Vol] 20 mmol/L Normal 20-31 [facility] Comment on above: Performed By: #### S ED, CRP, STROKE #### [facility] [address] [place] [address] Welder Explosion: Bowen Lemon MD Creatinine [Mass/Vol] 0.85 mg/dL Normal 0.70-1.20 [facility] Comment on above: Performed By: #### S ED, CRP, STROKE #### [facility] [address] [place] [address] Welder Explosion: Bowen Lemon MD GFR, Amer >60 Normal >60 [facility] Comment on above: Performed By: #### S ED, CRP, STROKE #### [facility] [address] [place] [address] Welder Explosion: Bowen Lemon MD GFR,non Amer >60 Normal >60 [facility] Comment on above: Performed By: #### S ED, CRP, STROKE #### [facility] [address] [place] [address] Welder Explosion: Bowen Lemon MD Glucose [Mass/Vol] 163 mg/dL High 70-99 [facility] Comment on above: Performed By: #### S ED, CRP, STROKE #### [facility] [address] [place] [address] Welder Explosion: Bowen Lemon MD Potassium [Moles/Vol] 4.1 mmol/L Normal 3.7-5.3 [facility] Comment on above: Performed By: #### S ED, CRP, STROKE #### [facility] [employer] [address] [place] [phone] Welder Explosion: Bowen Lemon MD Sodium [Moles/Vol] 135 mmol/L Normal 135-144 [facility] Comment on above: Performed By: #### S ED, CRP, STROKE #### [facility] [address] [place] [address] Welder Explosion: Bowen Lemon MD Urea nitrogen [Mass/Vol] 12 mg/dL Normal 8-23 [facility] Comment on above: Performed By: #### S ED, CRP, STROKE #### [facility] [address] [place] [address] 66768 Welder Explosion: Bowen Lemon MD BUN/CRE Ratio NOT REPORTED Normal 9-20 [facility] Comment on above: Performed By: #### S ED, CRP, STROKE #### [facility] [address] [place] [address] 86555 Welder Explosion: Bowen Lemon MD Staging: NOT REPORTED Normal [facility] Comment on above: Performed By: #### S ED, CRP, STROKE #### [facility] [address] [place] [address] Welder Explosion: Bowen Lemon MD Basic Metabolic Panel w/ Ref darlene to MGOrdered By: Jarek Osborn on 05-03-2021 Anion gap [Moles/Vol] 12 mmol/L 9 - 17 mmol/L [email or web address] Phone: Calcium [Mass/Vol] 9.4 mg/dL 8.6 - 10. 4 mg/dL [email or web address] Phone: Chloride [Moles/Vol] 103 mmol/L 98 - 10 7 mmol/L [email or web address] Phone: CO2 [Moles/Vol] 20 mmol/L 20 - 31 mmol/L [email or web address] Phone: Creatinine [Mass/Vol] 0.85 mg/dL 0.70 - 1.20 mg/dL [email or web address] Phone: GFR >60 >60 mL/min [facility] Phone: GFR Non- >60 >60 mL/min [email or web address] Phone: GFR/1.73 sq M.predicted MDRD (S/P/Bld) [Vol rate/Area] [email or web address] Phone: Comment on above: Average GFR for 60-6 9 years old: 85 mL/min/1.73sq m Chronic Kidney Disease: <60 mL/min/1.73sq m Kidney failure: <15 mL/min/1.73sq m eGFR calculated using average adult body mass. Additional eGFR calculator available at: http://www.[employer].Localytics/multiple_crcl_2012.htm GFR/1.73 sq M.predicted MDRD (S/P/Bld) [Vol rate/Area] NOT REPORTED [email or web address] Phone: Glucose [Mass/Vol] 163 mg/dL High 70 - 99 mg/dL [email or web address] Phone: Interpretation and review of laboratory results Abnormal [email or web address] Phone: Potassium [Moles/Vol] 4.1 mmol/L 3.7 - 5.3 mmol/L [email or web address] Phone: Sodium [Moles/Vol] 135 mmol/L 135 - 144 mmol/L [email or web address] Phone: Urea nitrogen (BldV) [Mass/Vol] 12 mg/dL 8 - 23 mg/dL [email or web address] Phone: Urea nitrogen/Creatinine (Bld) [Mass ratio] NOT REPORTED [email or web address] Phone: CBCon 05-03-2021 Erythrocyte distribution width (RBC) [Ratio] 14.5 % High 11.8-14.4 [facility] Comment on above: Performed By: #### S ED, CRP, STROKE #### [facility] [address] [place] [address]40 Welder Explosion: Bowen Lemon MD Hematocrit (Bld) [Volume fraction] 38.4 % Low 40.7-50.3 [facility] Comment on above: Performed By: #### S ED, CRP, STROKE #### [facility] [address] [place] [address] Welder Explosion: Bowen Lemon MD Hemoglobin (Bld) [Mass/Vol] 12.6 g/dL Low 13.0-17.0 [facility] Comment on above: Performed By: #### S ED, CRP, STROKE #### [facility] [address] [place] [address] 87339 Welder Explosion: Bowen Lemon MD MCH (RBC) [Entitic mass] 30.2 pg Normal 25.2-33.5 [facility] Comment on above: Performed By: #### S ED, CRP, STROKE #### [facility] [address] [place] [address] Welder Explosion: Bowen Lemon MD MCHC (RBC) [Mass/Vol] 32.8 g/dL Normal 28.4-34.8 [facility] Comment on above: Performed By: #### S ED, CRP, STROKE #### [address] [address] Welder Explosion: Bowen Lemon MD MCV (RBC) [Entitic vol] 92.1 fL Normal 82.6-102.9 [facility] Comment on above: Performed By: #### S ED, CRP, STROKE #### [address] [address] Welder Explosion: Bowen Lemon MD NRBC Automated 0.0 per 100 WBC Normal 0.0 [facility] Comment on above: Performed By: #### S ED, CRP, STROKE #### [address] [address] Welder Explosion: Bowen Lemon MD Platelet mean volume (Bld) [Entitic vol] 10.8 fL Normal 8.1-13.5 [facility] Comment on above: Performed By: #### S ED, CRP, STROKE #### [address] [address] Welder Explosion: Bowen Lemon MD Platelets (Bld) [#/Vol] 225 10*3/uL Normal 138-453 [facility] Comment on above: Performed By: #### S ED, CRP, STROKE #### [facility] [address] [place] [address] 865[address] Welder Explosion: Bowen Lemon MD RBC (Bld) [#/Vol] 4.17 10*6/uL Low 4.21-5.77 [facility] Comment on above: Performed By: #### S ED, CRP, STROKE #### [address] [address] Welder Explosion: Bowen Lemon MD WBC (Bld) [#/Vol] 6.6 10*3/uL Normal 3.5-11.3 [facility] Comment on above: Performed By: #### S ED, CRP, STROKE #### [facility] [address] [place] [address] Welder Explosion: Bowen Lemon MD CBCOrdered By: Gee benoit on 05-03-2021 Hematocrit (Bld) [Volume fraction] 38.4 % Low 40.7 - 50.3 % [email or web address] Phone: Hemoglobin.gastrointest inal spec 1 Ql (Stl) 12.6 g/dL Low 13.0 - 17.0 g/dL [email or web address] Phone: Interpretation and review of laboratory results Abnormal [email or web address] Phone: MCH (RBC) [Entitic mass] 30.2 pg 25.2 - 33.5 pg [email or web address] Phone: MCHC (RBC) [Mass/Vol] 32.8 g/dL 28.4 - 34.8 g/dL [email or web address] Phone: MCV (RBC) [Entitic vol] 92.1 fL 82.6 - 102.9 fL [email or web address] Phone: NRBC Automated 0.0 0.0 per 100 WBC [email or web address] Phone: Platelet distribution width (Bld) [Ratio] 14.5 % High 11.8 - 14.4 % [email or web address] Phone: Platelet mean volume (Bld) [Entitic vol] 10.8 fL 8.1 - 13.5 fL [email or web address] Phone: Platelets (Bld) [#/Vol] 225 10*3/uL [email or web address] Phone: RBC (Bld) [#/Vol] 4.17 10*6/uL Low 4.21 - 5.77 m/uL [email or web address] Phone: WBC (Bld) [#/Vol] 6.6 10*3/uL [email or web address] Phone: [email or web address] Phone: MAGNESIUMOrdered By: Gee Parnell on 05-03-2021 Magnesium [Mass/Vol] 1.7 mg/dL 1.6 - 2 .6 mg/dL [email or web address] Phone: Magnesiumon 05-03-2021 Magnesium [Mass/Vol] 1.7 mg/dL Normal 1.6-2.6 [facility] Comment on above: Performed By: #### S ED, CRP, STROKE #### [facility] [place] [address] Welder Explosion: Bowen Lemon MD No Panel InformationOrdered By: Jarek Osborn on 05-03-2021 [email or web address] Phone: POC Glucose FingerstickOrder ed By: Ning Wallace on 05-03-2021 Glucose [Mass/Vol] 163 mg/dL High 75 - 110 mg/dL [email or web address] Phone: Interpretation and review of laboratory results Abnormal [email or web address] Phone: [email or web address] Phone: APTTon 05-02-2021 aPTT Coag (Bld) [Time] 60.3 s High 20.5-30.5 [facility] Comment on above: Result Comment: IV Heparin Therapy Range: 48.6-77.8 Performed By: #### S ED, CRP, STROKE #### [facility] [address] [place] [address] Welder Explosion: Bowen Lemon MD APTTOrdered By: Ning martines on 05-02-2021 aPTT Coag (Bld) [Time] 60.3 s High [facility] [employer] Phone: Comment on above: IV Heparin Therapy Range: 48.6-77.8 Interpretation and review of laboratory results Abnormal [facility] Phone: [facility] [employer] Phone: Activated clotting timeOrder ed By: Ning Wallace on 05-02-2021 Activated Clotting Time 227 High M [facility] [employer] Phone: Interpretation and review of laboratory results Abnormal [facility] Phone: [facility] [employer] Phone: Basic Metab w/rfx MGon 05-02 (cont.) Normal [facility] Comment on above: Result Comment: Aver age GFR for 60-69 years old: 85 mL/min/1.73sq m Chronic Kidney Disease: <60 mL/min/1.73sq m Kidney failure: <15 mL/min/1.73sq m eGFR calculated using average adult body mass. Additional eGFR calculator available at: http://www.[employer].Localytics/multiple_crcl_2012.htm Performed By: #### S ED, CRP, STROKE #### [facility] [address] [place] [address] [phone] Welder Explosion: Bowen Lemon MD Anion gap [Moles/Vol] 14 mmol/L Normal 9-17 [facility] Comment on above: Performed By: #### S ED, CRP, STROKE #### [facility] [address] [place] [address] Welder Explosion: Bowen Lemon MD Calcium [Mass/Vol] 9.4 mg/dL Normal 8.6-10.4 [facility] Comment on above: Performed By: #### S ED, CRP, STROKE #### [facility] [address] [place] [address] [phone] Welder Explosion: Bowen Lemon MD Chloride [Moles/Vol] 106 mmol/L Normal 98-107 [facility] Comment on above: Performed By: #### S ED, CRP, STROKE #### [facility] [address] [place] [address] 7[address]38 Welder Explosion: Bowen Lemon MD CO2 [Moles/Vol] 19 mmol/L Low 20-31 [facility] Comment on above: Performed By: #### S ED, CRP, STROKE #### [facility] [address] [place] [address] 08132 Welder Explosion: Bowen Lemon MD Creatinine [Mass/Vol] 0.87 mg/dL Normal 0.70-1.20 [facility] Comment on above: Performed By: #### S ED, CRP, STROKE #### [facility] [address] [place] [address] 64369 Welder Explosion: Bowen Lemon MD GFR, Amer >60 Normal >60 [facility] Comment on above: Performed By: #### S ED, CRP, STROKE #### [facility] [address] [place] [address] 06476 Welder Explosion: Bowen Lemno MD GFR,non Amer >60 Normal >60 [facility] Comment on above: Performed By: #### S ED, CRP, STROKE #### [facility] [address] [place] [address] Welder Explosion: Bowen Lemon MD Glucose [Mass/Vol] 161 mg/dL High 70-99 [facility] Comment on above: Performed By: #### S ED, CRP, STROKE #### [facility] [address] [place] [address] Welder Explosion: Bowen Lemon MD Potassium [Moles/Vol] 4.0 mmol/L Normal 3.7-5.3 [facility] Comment on above: Performed By: #### S ED, CRP, STROKE #### [facility] [address] [place] [address] [place] [address] Welder Explosion: Bowen Lemon MD Sodium [Moles/Vol] 139 mmol/L Normal 135-144 [facility] Comment on above: Performed By: #### S ED, CRP, STROKE #### [facility] [address] [place] [address] Welder Explosion: Bowen Lemon MD Urea nitrogen [Mass/Vol] 11 mg/dL Normal 8- [facility] Comment on above: Performed By: #### S ED, CRP, STROKE #### [facility] [address] [place] [address] Welder Explosion: Bowen Lemon MD BUN/CRE Ratio NOT REPORTED Normal - [facility] Comment on above: Performed By: #### S ED, CRP, STROKE #### [facility] [address] [place] [address] Welder Explosion: Bowen Lemon MD Staging: NOT REPORTED Normal [facility] Comment on above: Performed By: #### S ED, CRP, STROKE #### [facility] [address] [place] [address] Welder Explosion: Bowen Lemon MD Basic Metabolic Panel w/ Ref darlene to MGOrdered By: Jarek Osborn on 05-02-2021 Anion gap [Moles/Vol] 14 mmol/L 9 - 17 mmol/L [facility] Phone: Calcium [Mass/Vol] 9.4 mg/dL 8.6 - 10. 4 mg/dL [email or web address] Phone: Chloride [Moles/Vol] 106 mmol/L 98 - 10 7 mmol/L [email or web address] Phone: CO2 [Moles/Vol] 19 mmol/L Low 20 - 31 mmol/L [email or web address] Phone: Creatinine [Mass/Vol] 0.87 mg/dL 0.70 - 1.20 mg/dL [email or web address] Phone: GFR >60 >60 mL/min [facility] Phone: GFR Non- >60 >60 mL/min [email or web address] Phone: GFR/1.73 sq M.predicted MDRD (S/P/Bld) [Vol rate/Area] [email or web address] Phone: Comment on above: Average GFR for 60-6 9 years old: 85 mL/min/1.73sq m Chronic Kidney Disease: <60 mL/min/1.73sq m Kidney failure: <15 mL/min/1.73sq m eGFR calculated using average adult body mass. Additional eGFR calculator available at: http://www.[employer]/multiple_crcl_2012.htm GFR/1.73 sq M.predicted MDRD (S/P/Bld) [Vol rate/Area] NOT REPORTED [email or web address] Phone: Glucose [Mass/Vol] 161 mg/dL High 70 - 99 mg/dL [email or web address] Phone: Potassium [Moles/Vol] 4.0 mmol/L 3.7 - 5.3 mmol/L [email or web address] Phone: Sodium [Moles/Vol] 139 mmol/L 135 - 144 mmol/L [email or web address] Phone: Urea nitrogen (BldV) [Mass/Vol] 11 mg/dL 8 - 23 mg/dL [email or web address] Phone: Urea nitrogen/Creatinine (Bld) [Mass ratio] NOT REPORTED [email or web address] Phone: Catheterization and angiogra phy procedure details panelOrdered By: Ning Wallace on 05-02-2021 Cardiac Intervention al Report Demographics Patient REHAN Bryant Date of Study 05/02/2021 Name Date of 1955 Gender Male Age 65 year(s) Race Room 4710766^ALIA^NING Height: 72 inch, 182.88 cm Number Corporate [id number] Weight: 223 pounds, 101.2 kg ID # Patient [id number] BSA: 2.23 m^2 BMI: 30.24 Acct # kg/m^2 MR # [id number] Performing Nikolas Bojorquez Physician Referring # Physician [...] vessel has 40% stenosis OM has proximal FLOTATION OPERATOR and supplied by [employer] on Mid [...] P.O. 243 mg. Contrast Material: - Isovue 03222 ml Fluoroscopy Time: Diagnostic: 8:54 minutes. Total: [...] assessed as CCS III according to the [place] clinical classification. Hemodynamics Condition: Baseline Room Air Estimated: 266.29Heart Rate: 76 bpm Pressure +-----+ + !Site !Pressure ! +-----+ + !AO !96/54 (66) (more content not included)... [email or web address] Phone: Adam, Mhpn Incoming C ardio Results From [facility] - 05/02/2021 5:39 PM EDT Cardiac Interventional Report Demographics Patient REHAN Bryant Date of Study 05/02/2021 Name Date of 1955 Gender Male Age 65 year(s) Race Room [id number]^ALIA^NING Height: 72 inch, 182.88 cm Number Corporate [id number] Weight: 223 pounds, 101.2 kg ID # Patient [id number] BSA: 2.23 m^2 BMI: 30.24 Acct # kg/m^2 MR # [id number] Performing Nikolas Bojorquez Physician Referring # Physician [...] vessel has 40% stenosis OM has proximal FLOTATION OPERATOR and supplied by [employer] on Mid [...] P.O. 243 mg. Contrast Material: - Isovue 88031 ml Fluoroscopy Time: Diagnostic: 8:54 minutes. Total: [...] assessed as CCS III according to the [place] clinical classification. Hemodynamics Condition: Baseline Room Air Estimated: 266.29Heart Rate: 76 bpm Pressure +-----+ + !Site !Pressure ! +-----+ + !AO !96/54 (66) ! +-----+ + Shunts Oxygen Values O2 [id number] [email or web address] Phone: [email or web address] Phone: Catheterization and angiogra phy procedure details panelOrdered By: Unknown Result on 05-02-2021 [email or web address] Phone: MAGNESIUMOrdered By: Gee Parnell on 05-02-2021 Magnesium [Mass/Vol] 1.5 mg/dL Low 1.6 - 2 .6 mg/dL [email or web address] Phone: Magnesiumon 05-02-2021 Magnesium [Mass/Vol] 1.5 mg/dL Low 1.6-2.6 [facility] Comment on above: Performed By: #### S ED, CRP, STROKE #### [facility] [address] [place] [address] Welder Explosion: Bowen Lemon MD No Panel InformationOrdered By: Jarek Osborn on 05-02-2021 Interpretation and review of laboratory results Abnormal [email or web address] Phone: [email or web address] Phone: POC Glucose FingerstickOrder ed By: Ning Wallace on 05-02-2021 Glucose [Mass/Vol] 171 mg/dL High 75 - 110 mg/dL [email or web address] Phone: Interpretation and review of laboratory results Abnormal [email or web address] Phone: [email or web address] Phone: Glucose [Mass/Vol] 152 mg/dL High 75 - 110 mg/dL [email or web address] Phone: Interpretation and review of laboratory results Abnormal [email or web address] Phone: [email or web address] Phone: Glucose [Mass/Vol] 170 mg/dL High 75 - 110 mg/dL [email or web address] Phone: Interpretation and review of laboratory results Abnormal [email or web address] Phone: [email or web address] Phone: Glucose [Mass/Vol] 163 mg/dL High 75 - 110 mg/dL [email or web address] Phone: Interpretation and review of laboratory results Abnormal [email or web address] Phone: [email or web address] Phone: APTTon 05-01-2021 aPTT Coag (Bld) [Time] 56.9 s High 20.5-30.5 [facility] Comment on above: Result Comment: IV Heparin Therapy Range: 48.6-77.8 Performed By: #### S ED, CRP, STROKE #### [facility] [place] [address] Welder Explosion: Bowen Lemon MD APTTOrdered By: Gee kim on 05-01-2021 aPTT Coag (Bld) [Time] 56.9 s High [facility] Phone: Comment on above: IV Heparin Therapy Range: 48.6-77.8 Interpretation and review of laboratory results Abnormal [email or web address] Phone: [email or web address] Phone: Basic Metab w/rfx MGon 05-01 (cont.) Normal [facility] Comment on above: Result Comment: Aver age GFR for 60-69 years old: 85 mL/min/1.73sq m Chronic Kidney Disease: <60 mL/min/1.73sq m Kidney failure: <15 mL/min/1.73sq m eGFR calculated using average adult body mass. Additional eGFR calculator available at: http://www.[employer].Localytics/multiple_crcl_2012.htm Performed By: #### S ED, CRP, STROKE #### [facility] [address] [place] [address] Welder Explosion: Bowen Lemon MD Anion gap [Moles/Vol] 14 mmol/L Normal 9-17 [facility] Comment on above: Performed By: #### S ED, CRP, STROKE #### [facility] [address] [place] [address] Welder Explosion: Bowen Lemon MD Calcium [Mass/Vol] 9.6 mg/dL Normal 8.6-10.4 [facility] Comment on above: Performed By: #### S ED, CRP, STROKE #### [facility] [address] [place] [address] Welder Explosion: Bowen Lemon MD Chloride [Moles/Vol] 105 mmol/L Normal 98-107 [facility] Comment on above: Performed By: #### S ED, CRP, STROKE #### [facility] [address] [place] [address] Welder Explosion: Bowen Lemon MD CO2 [Moles/Vol] 20 mmol/L Normal 20-31 [facility] Comment on above: Performed By: #### S ED, CRP, STROKE #### [facility] [address] [place] [address] Welder Explosion: Bowen Lemon MD Creatinine [Mass/Vol] 0.62 mg/dL Low 0.70-1.20 [facility] Comment on above: Performed By: #### S ED, CRP, STROKE #### [facility] [address] [place] [address] Welder Explosion: Bowen Lemon MD GFR, Amer >60 Normal >60 [facility] Comment on above: Performed By: #### S ED, CRP, STROKE #### [facility] [address] [place] [address] Welder Explosion: Bowen Lemon MD GFR,non Amer >60 Normal >60 [facility] Comment on above: Performed By: #### S ED, CRP, STROKE #### [address] [address] Welder Explosion: Bowen Lemon MD Glucose [Mass/Vol] 185 mg/dL High 70-99 [facility] Comment on above: Performed By: #### S ED, CRP, STROKE #### [facility] [address] [place] [address] Welder Explosion: Bowen Lemon MD Potassium [Moles/Vol] 4.3 mmol/L Normal 3.7-5.3 [facility] Comment on above: Result Comment: SPEC IMEN SLIGHTLY HEMOLYZED, RESULTS MAY BE ADVERSELY AFFECTED. Performed By: #### S ED, CRP, STROKE #### [facility] [address] [place] [address] Welder Explosion: Bowen Lemon MD Sodium [Moles/Vol] 139 mmol/L Normal 135-144 [facility] Comment on above: Performed By: #### S ED, CRP, STROKE #### [facility] [address] [place] [address] Welder Explosion: Bowen Lemon MD Urea nitrogen [Mass/Vol] 14 mg/dL Normal 8-23 [facility] Comment on above: Performed By: #### S ED, CRP, STROKE #### [facility] [address] [place] [address] Welder Explosion: Bowen Lemon MD BUN/CRE Ratio NOT REPORTED Normal 9-20 [facility] Comment on above: Performed By: #### S ED, CRP, STROKE #### [facility] [address] [place] [address] Welder Explosion: Bowen Lemon MD Staging: NOT REPORTED Normal [facility] Comment on above: Performed By: #### S ED, CRP, STROKE #### [facility] [address] [place] [address] Welder Explosion: Bowen Lemon MD Basic Metabolic Panel w/ Ref darlene to MGOrdered By: Jarek Osborn on 05-01-2021 Anion gap [Moles/Vol] 14 mmol/L 9 - 17 mmol/L [email or web address] Phone: Calcium [Mass/Vol] 9.6 mg/dL 8.6 - 10. 4 mg/dL [email or web address] Phone: Chloride [Moles/Vol] 105 mmol/L 98 - 10 7 mmol/L [email or web address] Phone: CO2 [Moles/Vol] 20 mmol/L 20 - 31 mmol/L [email or web address] Phone: Creatinine [Mass/Vol] 0.62 mg/dL Low 0.70 - 1.20 mg/dL [email or web address] Phone: GFR >60 >60 mL/min [facility] Phone: GFR Non- >60 >60 mL/min [email or web address] Phone: GFR/1.73 sq M.predicted MDRD (S/P/Bld) [Vol rate/Area] [email or web address] Phone: Comment on above: Average GFR for 60-6 9 years old: 85 mL/min/1.73sq m Chronic Kidney Disease: <60 mL/min/1.73sq m Kidney failure: <15 mL/min/1.73sq m eGFR calculated using average adult body mass. Additional eGFR calculator available at: http://www.[employer].Localytics/multiple_crcl_2012.htm GFR/1.73 sq M.predicted MDRD (S/P/Bld) [Vol rate/Area] NOT REPORTED [email or web address] Phone: Glucose [Mass/Vol] 185 mg/dL High 70 - 99 mg/dL [email or web address] Phone: Interpretation and review of laboratory results Abnormal [email or web address] Phone: Potassium [Moles/Vol] 4.3 mmol/L 3.7 - 5.3 mmol/L [email or web address] Phone: Comment on above: SPECIMEN SLIGHTLY HE MOLYZED, RESULTS MAY BE ADVERSELY AFFECTED. Sodium [Moles/Vol] 139 mmol/L 135 - 144 mmol/L [email or web address] Phone: Urea nitrogen (BldV) [Mass/Vol] 14 mg/dL 8 - 23 mg/dL [email or web address] Phone: Urea nitrogen/Creatinine (Bld) [Mass ratio] NOT REPORTED [email or web address] Phone: [email or web address] Phone: CBCon 05-01-2021 Erythrocyte distribution width (RBC) [Ratio] 14.3 % Normal 11.8-14.4 [facility] Comment on above: Performed By: #### S ED, CRP, STROKE #### [facility] [address] [place] [address] [phone] Welder Explosion: Bowen Lemon MD Hematocrit (Bld) [Volume fraction] 38.2 % Low 40.7-50.3 [facility] Comment on above: Performed By: #### S ED, CRP, STROKE #### [facility] [address] [place] [address] [phone] Welder Explosion: Bowen Lemon MD Hemoglobin (Bld) [Mass/Vol] 12.6 g/dL Low 13.0-17.0 [facility] Comment on above: Performed By: #### S ED, CRP, STROKE #### [facility] [address] [place] [address] [phone] Welder Explosion: Bowen Lemon MD MCH (RBC) [Entitic mass] 30.7 pg Normal 25.2-33.5 [facility] Comment on above: Performed By: #### S ED, CRP, STROKE #### [address] [address] Welder Explosion: Bowen Lemon MD MCHC (RBC) [Mass/Vol] 33.0 g/dL Normal 28.4-34.8 [facility] Comment on above: Performed By: #### S ED, CRP, STROKE #### [address] [address] Welder Explosion: Bowen Lemon MD MCV (RBC) [Entitic vol] 93.2 fL Normal 82.6-102.9 [facility] Comment on above: Performed By: #### S ED, CRP, STROKE #### [address] [address] Welder Explosion: Bowen Lemon MD NRBC Automated 0.0 per 100 WBC Normal 0.0 [facility] Comment on above: Performed By: #### S ED, CRP, STROKE #### [address] [address] Welder Explosion: Bowen Lemon MD Platelet mean volume (Bld) [Entitic vol] 10.9 fL Normal 8.1-13.5 [facility] Comment on above: Performed By: #### S ED, CRP, STROKE #### [address] [address] Welder Explosion: Bowen Lemon MD Platelets (Bld) [#/Vol] 250 10*3/uL Normal 138-453 [facility] Comment on above: Performed By: #### S ED, CRP, STROKE #### [address] [address] Welder Explosion: Bowen Lemon MD RBC (Bld) [#/Vol] 4.10 10*6/uL Low 4.21-5.77 [facility] Comment on above: Performed By: #### S ED, CRP, STROKE #### [employer] [facility] [address] [place], [place] [id number] Welder Explosion: Bowen Lemon MD WBC (Bld) [#/Vol] 7.3 10*3/uL Normal 3.5-11.3 [facility] Comment on above: Performed By: #### S ED, CRP, STROKE #### [facility] [address] [place] [place], [place] [id number] Welder Explosion: Bowen Lemon MD CBCOrdered By: Gee benoit on 05-01-2021 Hematocrit (Bld) [Volume fraction] 38.2 % Low 40.7 - 50.3 % [email or web address] Phone: Hemoglobin.gastrointest inal spec 1 Ql (Stl) 12.6 g/dL Low 13.0 - 17.0 g/dL [email or web address] Phone: Interpretation and review of laboratory results Abnormal [email or web address] Phone: MCH (RBC) [Entitic mass] 30.7 pg 25.2 - 33.5 pg [email or web address] Phone: MCHC (RBC) [Mass/Vol] 33.0 g/dL 28.4 - 34.8 g/dL [email or web address] Phone: MCV (RBC) [Entitic vol] 93.2 fL 82.6 - 102.9 fL [email or web address] Phone: NRBC Automated 0.0 0.0 per 100 WBC [email or web address] Phone: Platelet distribution width (Bld) [Ratio] 14.3 % 11.8 - 14.4 % [email or web address] Phone: Platelet mean volume (Bld) [Entitic vol] 10.9 fL 8.1 - 13.5 fL [email or web address] Phone: Platelets (Bld) [#/Vol] 250 10*3/uL [email or web address] Phone: RBC (Bld) [#/Vol] 4.10 10*6/uL Low 4.21 - 5.77 m/uL [email or web address] Phone: WBC (Bld) [#/Vol] 7.3 10*3/uL [email or web address] Phone: [email or web address] Phone: Cult,Bloodon 05-01-2021 Cult,Blood Specimen Description .BLOOD Special Requests R ARM 1 ML Culture NO GROWTH 6 DAYS Report Status FINAL 05/01/2021 [place] Comment on above: Performed By: #### S ED, CRP, STROKE #### [facility] [address] [place] [place], [place] [id number] Welder Explosion: Bowen Lemon MD Cult,Blood Specimen Description .BLOOD Special Requests L ARM 2 ML Culture NO GROWTH 6 DAYS Report Status FINAL 05/01/2021 [place] Comment on above: Performed By: #### S ED, CRP, STROKE #### [facility] [address] [place] [place], [place] [id number] Welder Explosion: Bowen Lemon MD Culture, Blood 1Ordered By: Jarek Osborn on 05-01-2021 Special Requests R ARM 1 ML [email or web address] Phone: Special Requests L ARM 2 ML [email or web address] Phone: Specimen Description .BLOOD [facility] Phone: [email or web address] Phone: Laboratory - Microbiology an d Antimicrobial susceptibilityOrdered By: Jarek Osborn on 05-01-2021 Bacteria identified Cx Nom (Unsp spec) NO GROWTH 6 DAYS [email or web address] Phone: POC Glucose FingerstickOrder ed By: Ning Wallace on 05-01-2021 Glucose [Mass/Vol] 207 mg/dL High 75 - 110 mg/dL [email or web address] Phone: Interpretation and review of laboratory results Abnormal [employer] Phone: [employer] Phone: Glucose [Mass/Vol] 204 mg/dL High 75 - 110 mg/dL [employer] Phone: Interpretation and review of laboratory results Abnormal [employer] Phone: [employer] Phone: Glucose [Mass/Vol] 170 mg/dL High 75 - 110 mg/dL [email or web address] Phone: Interpretation and review of laboratory results Abnormal [employer] Phone: [employer] Phone: APTTon 04-30-2021 aPTT Coag (Bld) [Time] 55.9 s High 20.5-30.5 [facility] Comment on above: Result Comment: IV Heparin Therapy Range: 48.6-77.8 Performed By: #### S ED, CRP, STROKE #### [facility] [address] [place] [address] Welder Explosion: Bowen Lemon MD aPTT Coag (Bld) [Time] 71.1 s High 20.5-30.5 [facility] Comment on above: Result Comment: IV Heparin Therapy Range: 48.6-77.8 Performed By: #### S ED, CRP, STROKE #### [facility] [address] [place] [address] Welder Explosion: Bowen Lemon MD aPTT Coag (Bld) [Time] 59.1 s High 20.5-30.5 [facility] Comment on above: Result Comment: IV Heparin Therapy Range: 48.6-77.8 Performed By: #### S ED, CRP, STROKE #### [facility] [address] [place] [address] Welder Explosion: Bowen Lemon MD APTTOrdered By: Ning martines on 04-30-2021 aPTT Coag (Bld) [Time] 55.9 s [employer] Phone: Comment on above: IV Heparin Therapy Range: 48.6-77.8 Interpretation and review of laboratory results Abnormal [email or web address] Phone: [email or web address] Phone: APTTOrdered By: Gee kim on 04-30-2021 aPTT Coag (Bld) [Time] 71.1 s [employer] Phone: Comment on above: IV Heparin Therapy Range: 48.6-77.8 Interpretation and review of laboratory results Abnormal [email or web address] Phone: [email or web address] Phone: aPTT Coag (Bld) [Time] 59.1 s [employer] Phone: Comment on above: IV Heparin Therapy Range: 48.6-77.8 Interpretation and review of laboratory results Abnormal [employer] Phone: [email or web address] Phone: Basic Metab w/rfx MGon 04-30 (cont.) Normal [facility] Comment on above: Result Comment: Aver age GFR for 60-69 years old: 85 mL/min/1.73sq m Chronic Kidney Disease: <60 mL/min/1.73sq m Kidney failure: <15 mL/min/1.73sq m eGFR calculated using average adult body mass. Additional eGFR calculator available at: http://www.[employer]/multiple_crcl_2012.htm Performed By: #### S ED, CRP, STROKE #### [facility] [address] [place] [address] Welder Explosion: Bowen Lemon MD Anion gap [Moles/Vol] 12 mmol/L Normal 9-17 [facility] Comment on above: Performed By: #### S ED, CRP, STROKE #### [facility] [address] [place] [address] Welder Explosion: Bowen Lemon MD Calcium [Mass/Vol] 9.2 mg/dL Normal 8.6-10.4 [facility] Comment on above: Performed By: #### S ED, CRP, STROKE #### [facility] [address] [place] [address] Welder Explosion: Bowen Lemon MD Chloride [Moles/Vol] 103 mmol/L Normal 98-107 [facility] Comment on above: Performed By: #### S ED, CRP, STROKE #### [facility] [address] [place] [address] Welder Explosion: Bowen Lemon MD CO2 [Moles/Vol] 19 mmol/L Low 20-31 [facility] Comment on above: Performed By: #### S ED, CRP, STROKE #### [facility] [address] [place] [address] Welder Explosion: Bowen Lemon MD Creatinine [Mass/Vol] 0.74 mg/dL Normal 0.70-1.20 [facility] Comment on above: Performed By: #### S ED, CRP, STROKE #### [facility] [address] [place] [address] Welder Explosion: Bowen Lemon MD GFR, Amer >60 Normal >60 [facility] Comment on above: Performed By: #### S ED, CRP, STROKE #### [facility] [address] [place] [address] Welder Explosion: Bowen Lemon MD GFR,non Amer >60 Normal >60 [facility] Comment on above: Performed By: #### S ED, CRP, STROKE #### [facility] [address] [place] [address] Welder Explosion: Bowen Lemon MD Glucose [Mass/Vol] 180 mg/dL High 70-99 [facility] Comment on above: Performed By: #### S ED, CRP, STROKE #### [facility] [address] [place] [address] Welder Explosion: Bowen Lemon MD Potassium [Moles/Vol] 4.0 mmol/L Normal 3.7-5.3 [facility] Comment on above: Performed By: #### S ED, CRP, STROKE #### [facility] [address] [place] [address] Welder Explosion: Bowen eLmon MD Sodium [Moles/Vol] 134 mmol/L Low 135-144 [facility] Comment on above: Performed By: #### S ED, CRP, STROKE #### [facility] [address] [place] [address] Welder Explosion: Bowen Lemon MD Urea nitrogen [Mass/Vol] 9 mg/dL Normal 8-23 [facility] Comment on above: Performed By: #### S ED, CRP, STROKE #### [facility] [address] [place] [address] Welder Explosion: Bowen Lemon MD BUN/CRE Ratio NOT REPORTED Normal -20 [facility] Comment on above: Performed By: #### S ED, CRP, STROKE #### [facility] [address] [place] [address] Welder Explosion: Bowen Lemon MD Staging: NOT REPORTED Normal [facility] Comment on above: Performed By: #### S ED, CRP, STROKE #### [facility] [address] [place] [address] Welder Explosion: Bowen Lemon MD Basic Metabolic Panel w/ Ref darlene to MGOrdered By: Jarek Osborn on 04-30-2021 Anion gap [Moles/Vol] 12 mmol/L 9 - 17 mmol/L [email or web address] Phone: Calcium [Mass/Vol] 9.2 mg/dL 8.6 - 10. 4 mg/dL [email or web address] Phone: Chloride [Moles/Vol] 103 mmol/L 98 - 10 7 mmol/L [email or web address] Phone: CO2 [Moles/Vol] 19 mmol/L Low 20 - 31 mmol/L [employer] Phone: Creatinine [Mass/Vol] 0.74 mg/dL 0.70 - 1.20 mg/dL [email or web address] Phone: GFR >60 >60 mL/min [facility] Phone: GFR Non- >60 >60 mL/min [email or web address] Phone: GFR/1.73 sq M.predicted MDRD (S/P/Bld) [Vol rate/Area] [email or web address] Phone: Comment on above: Average GFR for 60-6 9 years old: 85 mL/min/1.73sq m Chronic Kidney Disease: <60 mL/min/1.73sq m Kidney failure: <15 mL/min/1.73sq m eGFR calculated using average adult body mass. Additional eGFR calculator available at: http://www.[employer]ytics/multiple_crcl_2012.htm GFR/1.73 sq M.predicted MDRD (S/P/Bld) [Vol rate/Area] NOT REPORTED [email or web address] Phone: Glucose [Mass/Vol] 180 mg/dL High 70 - 99 mg/dL [email or web address] Phone: Interpretation and review of laboratory results Abnormal [email or web address] Phone: Potassium [Moles/Vol] 4.0 mmol/L 3.7 - 5.3 mmol/L [email or web address] Phone: Sodium [Moles/Vol] 134 mmol/L Low 135 - 144 mmol/L [email or web address] Phone: Urea nitrogen (BldV) [Mass/Vol] 9 mg/dL 8 - 23 mg/dL [email or web address] Phone: Urea nitrogen/Creatinine (Bld) [Mass ratio] NOT REPORTED [email or web address] Phone: [email or web address] Phone: POC Glucose FingerstickOrder ed By: Ning Wallace on 04-30-2021 Glucose [Mass/Vol] 242 mg/dL High 75 - 110 mg/dL [email or web address] Phone: Interpretation and review of laboratory results Abnormal [employer] Phone: [employer] Phone: Glucose [Mass/Vol] 220 mg/dL High 75 - 110 mg/dL [email or web address] Phone: Interpretation and review of laboratory results Abnormal [employer] Phone: [employer] Phone: Glucose [Mass/Vol] 189 mg/dL High 75 - 110 mg/dL [email or web address] Phone: Interpretation and review of laboratory results Abnormal [employer] Phone: [employer] Phone: Glucose [Mass/Vol] 226 mg/dL High 75 - 110 mg/dL [email or web address] Phone: Interpretation and review of laboratory results Abnormal [employer] Phone: [email or web address] Phone: APTTon 04-29-2021 aPTT Coag (Bld) [Time] 94.2 s Critically high 20.5-30. 5 [facility] Comment on above: Result Comment: IV Heparin Therapy Range: 48.6-77.8 Performed By: #### S ED, CRP, STROKE #### [facility] [place] [address] Welder Explosion: Bowen Lemon MD aPTT Coag (Bld) [Time] 46.3 s High 20.5-30.5 [facility] Comment on above: Result Comment: IV Heparin Therapy Range: 48.6-77.8 Performed By: #### S ED, CRP, STROKE #### [facility] [address] [place] [address] Welder Explosion: Bowen Lemon MD aPTT Coag (Bld) [Time] 69.2 s High 20.5-30.5 [facility] Comment on above: Result Comment: IV Heparin Therapy Range: 48.6-77.8 Performed By: #### S ED, CRP, STROKE #### [facility] [address] [place] [address] Welder Explosion: Bowen Lemon MD aPTT Coag (Bld) [Time] 69.1 s High 20.5-30.5 [facility] Comment on above: Result Comment: IV Heparin Therapy Range: 48.6-77.8 Performed By: #### S ED, CRP, STROKE #### [facility] [address] [place] [address] Welder Explosion: Bowen Lemon MD aPTT Coag (Bld) [Time] 49.2 s High 20.5-30.5 [facility] Comment on above: Result Comment: IV Heparin Therapy Range: 48.6-77.8 Performed By: #### P TT ####[facility] LOUNGEJtpyry[address] [place] [address] Lab Director: Bowen Lemon MD APTTOrdered By: Ning martines on 04-29-2021 aPTT Coag (Bld) [Time] 94.2 s Critically high [email or web address] Phone: Comment on above: IV Heparin Therapy Range: 48.6-77.8 Interpretation and review of laboratory results Abnormal [employer] Phone: [email or web address] Phone: aPTT Coag (Bld) [Time] 46.3 s [employer] Phone: Comment on above: IV Heparin Therapy Range: 48.6-77.8 Interpretation and review of laboratory results Abnormal [employer] Phone: [employer] Phone: aPTT Coag (Bld) [Time] 69.2 s [employer] Phone: Comment on above: IV Heparin Therapy Range: 48.6-77.8 Interpretation and review of laboratory results Abnormal [employer] Phone: [email or web address] Phone: aPTT Coag (Bld) [Time] 69.1 s [employer] Phone: Comment on above: IV Heparin Therapy Range: 48.6-77.8 Interpretation and review of laboratory results Abnormal [email or web address] Phone: [email or web address] Phone: Basic Metab w/rfx MGon 04-29 (cont.) Normal [facility] Comment on above: Result Comment: Aver age GFR for 60-69 years old: 85 mL/min/1.73sq m Chronic Kidney Disease: <60 mL/min/1.73sq m Kidney failure: <15 mL/min/1.73sq m eGFR calculated using average adult body mass. Additional eGFR calculator available at: http://www.[employer]/multiple_crcl_2012.htm Performed By: #### C BC, BMPX ####[facility] [place] [address] Lab Director: Bowen Lemon MD Anion gap [Moles/Vol] 10 mmol/L Normal 9-17 [facility] Comment on above: Performed By: #### C BC, BMPX ####[facility] [address] [place], [place] [phone] Director: Bowen Lemon MD Calcium [Mass/Vol] 8.9 mg/dL Normal 8.6-10.4 [facility] Comment on above: Performed By: #### C BC, BMPX ####[facility] [address] [place], [place] [phone] Director: Bowen Lemon MD Chloride [Moles/Vol] 106 mmol/L Normal 98-107 [facility] Comment on above: Performed By: #### C BC, BMPX ####[facility] [address] [place] [address] [phone] Director: Bowen Lemon MD CO2 [Moles/Vol] 22 mmol/L Normal 20-31 [facility] Comment on above: Performed By: #### C BC, BMPX ####[facility] [address] [place], [place] [phone] Director: Bowen Lemon MD Creatinine [Mass/Vol] 0.72 mg/dL Normal 0.70-1.20 [facility] Comment on above: Performed By: #### C BC, BMPX ####[facility] [address] [place], [place] [phone] Director: Bowen Lemon MD GFR, Amer >60 Normal >60 [facility] Comment on above: Performed By: #### C BC, BMPX ####[facility] [address] [place], [place] [phone] Director: Bowen Lemon MD GFR,non Amer >60 Normal >60 [facility] Comment on above: Performed By: #### C BC, BMPX ####[facility] [address] [place], [place] [phone] Director: Bowen Lemon MD Glucose [Mass/Vol] 172 mg/dL High 70-99 [facility] Comment on above: Performed By: #### C BC, BMPX ####[facility] [address] [place], [place] [phone] Director: Bowen Lemon MD Potassium [Moles/Vol] 3.9 mmol/L Normal 3.7-5.3 [facility] Comment on above: Performed By: #### C BC, BMPX ####[facility] [address] [place] [address] [phone] Director: Bowen Lemon MD Sodium [Moles/Vol] 138 mmol/L Normal 135-144 [facility] Comment on above: Performed By: #### C BC, BMPX ####[facility] [address] [place], [place] [phone] Director: Bowen Lemon MD Urea nitrogen [Mass/Vol] 11 mg/dL Normal 8-23 [facility] Comment on above: Performed By: #### C BC, BMPX ####[facility] [address] [place], [place] [phone] Director: Bowen Lemon MD BUN/CRE Ratio NOT REPORTED Normal 9-20 [facility] Comment on above: Performed By: #### C BC, BMPX ####[facility] [address] [place], [place] [phone] Director: Bowen Lemon MD Staging: NOT REPORTED Normal [facility] Comment on above: Performed By: #### C BC, BMPX ####[facility] [address] [place], [place] [phone] Director: Bowen Lemon MD Basic Metabolic Panel w/ Ref darlene to MGOrdered By: Jarek Osborn on 04-29-2021 Anion gap [Moles/Vol] 10 mmol/L 9 - 17 mmol/L [email or web address] Phone: Calcium [Mass/Vol] 8.9 mg/dL 8.6 - 10. 4 mg/dL [email or web address] Phone: Chloride [Moles/Vol] 106 mmol/L 98 - 10 7 mmol/L [email or web address] Phone: CO2 [Moles/Vol] 22 mmol/L 20 - 31 mmol/L [email or web address] Phone: Creatinine [Mass/Vol] 0.72 mg/dL 0.70 - 1.20 mg/dL [email or web address] Phone: GFR >60 >60 mL/min [facility] Phone: GFR Non- >60 >60 mL/min [email or web address] Phone: GFR/1.73 sq M.predicted MDRD (S/P/Bld) [Vol rate/Area] [email or web address] Phone: Comment on above: Average GFR for 60-6 9 years old: 85 mL/min/1.73sq m Chronic Kidney Disease: <60 mL/min/1.73sq m Kidney failure: <15 mL/min/1.73sq m eGFR calculated using average adult body mass. Additional eGFR calculator available at: http://www.[employer]/multiple_crcl_2012.htm GFR/1.73 sq M.predicted MDRD (S/P/Bld) [Vol rate/Area] NOT REPORTED [email or web address] Phone: Glucose [Mass/Vol] 172 mg/dL High 70 - 99 mg/dL [email or web address] Phone: Interpretation and review of laboratory results Abnormal [email or web address] Phone: Potassium [Moles/Vol] 3.9 mmol/L 3.7 - 5.3 mmol/L [email or web address] Phone: Sodium [Moles/Vol] 138 mmol/L 135 - 144 mmol/L [email or web address] Phone: Urea nitrogen (BldV) [Mass/Vol] 11 mg/dL 8 - 23 mg/dL [email or web address] Phone: Urea nitrogen/Creatinine (Bld) [Mass ratio] NOT REPORTED [email or web address] Phone: [email or web address] Phone: CBCon 04-29-2021 Erythrocyte distribution width (RBC) [Ratio] 14.1 % Normal 11.8-14.4 [facility] Comment on above: Performed By: #### C BC, BMPX ####[facility] [address] [place] [address] Lab Director: Bowen Lemon MD Hematocrit (Bld) [Volume fraction] 37.7 % Low 40.7-50.3 [facility] Comment on above: Performed By: #### C BC, BMPX ####[facility] [address] [place] [address] Lab Director: Bowen Lemon MD Hemoglobin (Bld) [Mass/Vol] 12.4 g/dL Low 13.0-17.0 [facility] Comment on above: Performed By: #### C BC, BMPX ####[facility] [address] [place] [address] Lab Director: Bowen Lemon MD MCH (RBC) [Entitic mass] 30.2 pg Normal 25.2-33.5 [facility] Comment on above: Performed By: #### C BC, BMPX ####[facility] [address] [place] [address] Lab Director: Bowen Lemon MD MCHC (RBC) [Mass/Vol] 32.9 g/dL Normal 28.4-34.8 [facility] Comment on above: Performed By: #### C BC, BMPX ####[address] [phone] Director: Bowen Lemon MD MCV (RBC) [Entitic vol] 92.0 fL Normal 82.6-102.9 [facility] Comment on above: Performed By: #### C BC, BMPX ####[address] [phone] Director: Bowen Lemon MD NRBC Automated 0.0 per 100 WBC Normal 0.0 [facility] Comment on above: Performed By: #### C BC, BMPX ####[address] [phone] Director: Bowen Lemon MD Platelet mean volume (Bld) [Entitic vol] 10.8 fL Normal 8.1-13.5 [facility] Comment on above: Performed By: #### C BC, BMPX ####[address] [phone] Director: Bowen Lemon MD Platelets (Bld) [#/Vol] 202 10*3/uL Normal 138-453 [facility] Comment on above: Performed By: #### C BC, BMPX ####[address] [phone] Director: Bowen Lemon MD RBC (Bld) [#/Vol] 4.10 10*6/uL Low 4.21-5.77 [facility] Comment on above: Performed By: #### C BC, BMPX ####[address] [phone] Director: Bowen Lemon MD WBC (Bld) [#/Vol] 7.5 10*3/uL Normal 3.5-11.3 [facility] Comment on above: Performed By: #### C BC, BMPX ####[facility] [address] [place] [address] lab Director: Bowen Lemon MD CBCOrdered By: Gee benoit on 04-29-2021 Hematocrit (Bld) [Volume fraction] 37.7 % Low 40.7 - 50.3 % [email or web address] Phone: Hemoglobin.gastrointest inal spec 1 Ql (Stl) 12.4 g/dL Low 13.0 - 17.0 g/dL [email or web address] Phone: Interpretation and review of laboratory results Abnormal [email or web address] Phone: MCH (RBC) [Entitic mass] 30.2 pg 25.2 - 33.5 pg [email or web address] Phone: MCHC (RBC) [Mass/Vol] 32.9 g/dL 28.4 - 34.8 g/dL [email or web address] Phone: MCV (RBC) [Entitic vol] 92.0 fL 82.6 - 102.9 fL [email or web address] Phone: NRBC Automated 0.0 0.0 per 100 WBC [email or web address] Phone: Platelet distribution width (Bld) [Ratio] 14.1 % 11.8 - 14.4 % [email or web address] Phone: Platelet mean volume (Bld) [Entitic vol] 10.8 fL 8.1 - 13.5 fL [email or web address] Phone: Platelets (Bld) [#/Vol] 202 10*3/uL [email or web address] Phone: RBC (Bld) [#/Vol] 4.10 10*6/uL Low 4.21 - 5.77 m/uL [email or web address] Phone: WBC (Bld) [#/Vol] 7.5 10*3/uL [email or web address] Phone: [employer] Phone: POC Glucose FingerstickOrder ed By: Ning Wallace on 04-29-2021 Glucose [Mass/Vol] 232 mg/dL High 75 - 110 mg/dL [email or web address] Phone: Interpretation and review of laboratory results Abnormal [employer] Phone: [employer] Phone: [phone] Glucose [Mass/Vol] 200 mg/dL High 75 - 110 mg/dL [email or web address] Phone: [phone] Interpretation and review of laboratory results Abnormal [employer] Phone: [employer] Phone: Glucose [Mass/Vol] 186 mg/dL High 75 - 110 mg/dL [email or web address] Phone: Interpretation and review of laboratory results Abnormal [employer] Phone: [employer] Phone: Glucose [Mass/Vol] 163 mg/dL High 75 - 110 mg/dL [email or web address] Phone: Interpretation and review of laboratory results Abnormal [employer] Phone: [employer] Phone: APTTOrdered By: Ning martines on 04-28-2021 aPTT Coag (Bld) [Time] 49.2 s [facility] [employer] Phone: Comment on above: IV Heparin Therapy Range: 48.6-77.8 Interpretation and review of laboratory results Abnormal [employer] Phone: [employer] Phone: aPTT Coag (Bld) [Time] 71.6 s [facility] [employer] [facility] Phone: Comment on above: IV Heparin Therapy Range: 48.6-77.8 Interpretation and review of laboratory results Abnormal [employer] Phone: [employer] Phone: aPTT Coag (Bld) [Time] 37.7 s [facility] [employer] [facility] Phone: Comment on above: IV Heparin Therapy Range: 48.6-77.8 Interpretation and review of laboratory results Abnormal [employer] Phone: [employer] Phone: aPTT Coag (Bld) [Time] 42.9 s [facility] [employer] [facility] Phone: Comment on above: IV Heparin Therapy Range: 48.6-77.8 Interpretation and review of laboratory results Abnormal [employer] Phone: [employer] Phone: APTTon 04-28-2021 aPTT Coag (Bld) [Time] 71.6 s High 20.5-30.5 [facility] Comment on above: Result Comment: IV Heparin Therapy Range: 48.6-77.8 Performed By: #### P TT ####[facility] [place] [address] [phone] lab Director: Bowen Lemon MD aPTT Coag (Bld) [Time] 37.7 s High 20.5-30.5 [facility] Comment on above: Result Comment: IV Heparin Therapy Range: 48.6-77.8 Performed By: #### P TT ####[facility] [address] [place], [place] [phone] lab Director: Bowen Lemon MD aPTT Coag (Bld) [Time] 42.9 s High 20.5-30.5 [facility] Comment on above: Result Comment: IV Heparin Therapy Range: 48.6-77.8 Performed By: #### P TT ####[facility] [address] [place] [address] Lab Director: Bowen Lemon MD Basic Metab w/rfx MGon 04-28 (cont.) Normal [facility] Comment on above: Result Comment: Aver age GFR for 60-69 years old: 85 mL/min/1.73sq m Chronic Kidney Disease: <60 mL/min/1.73sq m Kidney failure: <15 mL/min/1.73sq m eGFR calculated using average adult body mass. Additional eGFR calculator available at: http://www.Airware/multiple_crcl_2011.htm Performed By: #### B MPX, MG ####[facility] [address] [place] [address] Lab Director: Bowen Lemon MD Anion gap [Moles/Vol] 11 mmol/L Normal 9-17 [facility] Comment on above: Performed By: #### B MPX, MG ####[facility] [address] [place] [address] Lab Director: Bowen Lemon MD Calcium [Mass/Vol] 9.0 mg/dL Normal 8.6-10.4 [facility] Comment on above: Performed By: #### B MPX, MG ####[facility] [address] [place] [address] Lab Director: Bowen Lemon MD Chloride [Moles/Vol] 104 mmol/L Normal 98-107 [facility] Comment on above: Performed By: #### B MPX, MG ####[facility] [address] [place] [address] Lab Director: Bowen Lemon MD CO2 [Moles/Vol] 21 mmol/L Normal 20-31 [facility] Comment on above: Performed By: #### B MPX, MG ####[facility] [address]bxaxfvc7608 [place] [address] Lab Director: Bowen Lemon MD Creatinine [Mass/Vol] 0.77 mg/dL Normal 0.70-1.20 [facility] Comment on above: Performed By: #### B MPX, MG ####[facility] [address] [place] [address] Lab Director: Bowen Lemon MD GFR, Amer >60 Normal >60 [facility] Comment on above: Performed By: #### B MPX, MG ####[facility] [address] [place] [address] Lab Director: Bowen Lemon MD GFR,non Amer >60 Normal >60 [facility] Comment on above: Performed By: #### B MPX, MG ####[facility] [address] [place] [address] Lab Director: Bowen Lemon MD Glucose [Mass/Vol] 250 mg/dL High 70-99 [facility] Comment on above: Performed By: #### B MPX, MG ####[facility] [address] [place] [address] Lab Director: Bowen Lemon MD Potassium [Moles/Vol] 3.7 mmol/L Normal 3.7-5.3 [facility] Comment on above: Performed By: #### B MPX, MG ####[facility] [address] [place] [address] Lab Director: Bowen Lemon MD Sodium [Moles/Vol] 136 mmol/L Normal 135-144 [facility] Comment on above: Performed By: #### B MPX, MG ####[facility] [address] [place], [place] [phone] Director: Bowen Lemon MD Urea nitrogen [Mass/Vol] 10 mg/dL Normal 8-23 [facility] Comment on above: Performed By: #### B MPX, MG ####[facility] [address] [place], [place] [id number] Lab Director: Bowen Lemon MD BUN/CRE Ratio NOT REPORTED Normal 07-07 [facility] Comment on above: Performed By: #### B MPX, MG ####[facility] [address] [place], [place] [phone] lab Director: Bowen Lemon MD Staging: NOT REPORTED Normal [facility] Comment on above: Performed By: #### B MPX, MG ####[facility] [address] [place], [place] [phone] lab Director: Bowen Lemon MD Basic Metabolic Panel w/ Ref darlene to MGOrdered By: Jarek Osborn on 04-28-2021 Anion gap [Moles/Vol] 11 mmol/L 9 - 17 mmol/L [email or web address] Phone: Calcium [Mass/Vol] 9.0 mg/dL 8.6 - 10. 4 mg/dL [email or web address] Phone: Chloride [Moles/Vol] 104 mmol/L 98 - 10 7 mmol/L [employer] Phone: CO2 [Moles/Vol] 21 mmol/L 20 - 31 mmol/L [employer] Phone: Creatinine [Mass/Vol] 0.77 mg/dL 0.70 - 1.20 mg/dL [employer] Phone: GFR >60 >60 mL/min Cyan Phone: GFR Non- >60 >60 mL/min [email or web address] Phone: GFR/1.73 sq M.predicted MDRD (S/P/Bld) [Vol rate/Area] [employer] Phone: Comment on above: Average GFR for 60-6 9 years old: 85 mL/min/1.73sq m Chronic Kidney Disease: <60 mL/min/1.73sq m Kidney failure: <15 mL/min/1.73sq m eGFR calculated using average adult body mass. Additional eGFR calculator available at: http://www.Airware/multiple_crcl_2012.htm GFR/1.73 sq M.predicted MDRD (S/P/Bld) [Vol rate/Area] NOT REPORTED [email or web address] Phone: Glucose [Mass/Vol] 250 mg/dL High 70 - 99 mg/dL [email or web address] Phone: Interpretation and review of laboratory results Abnormal [employer] Phone: Potassium [Moles/Vol] 3.7 mmol/L 3.7 - 5.3 mmol/L [employer] Phone: Sodium [Moles/Vol] 136 mmol/L 135 - 144 mmol/L [employer] Phone: Urea nitrogen (BldV) [Mass/Vol] 10 mg/dL 8 - 23 mg/dL [email or web address] Phone: Urea nitrogen/Creatinine (Bld) [Mass ratio] NOT REPORTED [email or web address] Phone: [employer] Phone: Catheterization and angiogra phy procedure details panelOrdered By: Andreas Shepherd on 04-28-2021 Cardiac Diagnostic R eport Demographics Patient REHAN Bryant Date of Study 04/28/2021 Name Date of 1955 Gender Male Age 65 year(s) Race Room [id number]^DANIELLE^ANDREAS Height: 72 inch, 182.88 cm Number Corporate [id number] Weight: 223 pounds, 101.2 ID # kg Patient [id number] BSA: 2.23 m^2 BMI: 30.24 Acct # kg/m^2 MR # [id number] Performing Pj Becerril Physician Referring # Physician [...] Left coronary angiography. Contrast Material: - Isovue 28875 ml Fluoroscopy Time: Diagnostic: 7:54 minutes. Total: [...] assessed as CCS III according to the [place] clinical classification. Hemodynamics Condition: Baseline Room Air Estimated: 265.46Heart Rate: 76 bpm Pressure +-----+ + !Site !Pressure ! +-----+ + !AO !124/74 (94) ! +-----+ + !AO !122/69 (91) ! +-----+ + !LV !104/2 ,7 ! +-----+ + !LV !138/0 ,8 ! +-----+ + Valve Gradients and Areas + +---------+--- -- (more content not included)... [employer] Work Phone: Adam, Mhpn Incoming C ardio Results From [facility]/Ge - 04/28/2021 10:30 AM EDT Cardiac Diagnostic Report Demographics Patient REHAN Bryant Date of Study 04/28/2021 Name Date of 1955 Gender Male Age 65 year(s) Race Room [id number]^DANIELLE^ANDREAS Height: 72 inch, 182.88 cm Number Corporate [id number] Weight: 223 pounds, 101.2 ID # kg Patient [id number] BSA: 2.23 m^2 BMI: 30.24 Acct # kg/m^2 MR # [id number] Pj Arce Physician Referring # Physician Assisting Physician Additional [...] Left coronary angiography. Contrast Material: - Isovue 48342 ml Fluoroscopy Time: Diagnostic: 7:54 minutes. Total: [...] assessed as CCS III according to the [place] clinical classification. Hemodynamics Condition: Baseline Room Air [...] ------+---------+--------- -+---------+ + Shunts Oxygen Values O2 Hbiwmtrk767.44O2 Xwyuejqijsr388.46 [employer] Phone: [email or web address] Phone: Catheterization and angiogra phy procedure details panelOrdered By: Unknown Result on 04-28-2021 [employer] Phone: ECHO Complete 2D W Doppler W ColorOrdered By: Babak Mancuso on 04-28-2021 Transthoracic Echocardiography Report (TTE) Patient Name REHAN Date of Study 04/28/2021 YOEL Bryant Date of 1955 Gender Male Age 65 year(s) Race Room Number 1015 Height: 72 inch, 182.88 cm Corporate ID [id number] Weight: 223 pounds, 101.2 kg # Patient Acct [id number] BSA: 2.23 m^2 BMI: 30.24 # kg/m^2 MR # [id number] Tyre Fitter Tre,Smitha Interpreting Physician Marcello Cole Fellow Referring Nurse Practitioner Interpreting Referring Physician Babak Mancuso Fellow Type of Study TTE procedure:2D Echocardiogram, M-Mode, Doppler, Color Doppler, Bubble Study. Procedure Date Date: 04/28/2021 Start: 09:19 AM Study Location: [facility] Technical Quality: Fair visualization Indications:Stroke, Non-STEMI [...] m/s Tricuspid: Pulmonic: (more content not included)... [employer] Work Phone: Adam, pn Incoming C ardio Results From [facility]/Ge - 04/28/2021 2:48 PM EDT Transthoracic Echocardiography Report (TTE) Patient Name ICKES Date of Study 04/28/2021 YOEL Bryant Date of 1955 Gender Male Age 65 year(s) Race Room Number 1015 Height: 72 inch, 182.88 cm Corporate ID [id number] Weight: 223 pounds, 101.2 kg # Patient Acct [id number] BSA: 2.23 m^2 BMI: 30.24 # kg/m^2 MR # [id number] Tyre Fitter Smitha [place] Interpreting Physician Marcello Cole Fellow Referring Nurse Practitioner Interpreting Referring Physician Babak Mancuso Fellow Type of Study TTE procedure:2D Echocardiogram, M-Mode, Doppler, Color Doppler, Bubble Study. Procedure Date Date: 04/28/2021 Start: 09:19 AM Study Location: [facility] Technical Quality: Fair visualization Indications:Stroke, Non-STEMI [...] is 45-50 % . Calculated EF via Ibrd's method is 46 %. Normal left ventricular [...] Wall E' velocity:0.07 m/s Lateral Wall E/E':10.8 [email or web address] Phone: [employer] Phone: Magnesiumon 04-28-2021 Magnesium [Mass/Vol] 1.5 mg/dL Low 1.6-2.6 [facility] Comment on above: Performed By: #### B MG ELIZABETH ####[facility] [address] [place] [address] [facility] Director: Bowen Lemon MD MagnesiumOrdered By: Jarek Osborn on 04-28-2021 Interpretation and review of laboratory results Abnormal [employer] Phone: Magnesium [Mass/Vol] 1.5 mg/dL Low 1.6 - 2 .6 mg/dL [employer] Phone: [employer] Phone: POC Glucose FingerstickOrder ed By: Ning Wallace on 04-28-2021 Glucose [Mass/Vol] 182 mg/dL High 75 - 110 mg/dL [employer] Phone: Interpretation and review of laboratory results Abnormal [employer] Phone: [phone] [employer] Phone: Glucose [Mass/Vol] 202 mg/dL High 75 - 110 mg/dL [employer] Phone: Interpretation and review of laboratory results Abnormal [employer] Phone: [employer] Phone: Glucose [Mass/Vol] 190 mg/dL High 75 - 110 mg/dL [employer] Phone: Interpretation and review of laboratory results Abnormal [employer] Phone: [employer] Phone: Glucose [Mass/Vol] 198 mg/dL High 75 - 110 mg/dL [employer] Phone: Interpretation and review of laboratory results Abnormal [employer] Phone: [employer] Phone: APTTon 04-27-2021 aPTT Coag (Bld) [Time] 55.7 s High 20.5-30.5 [facility] Comment on above: Result Comment: IV Heparin Therapy Range: 48.6-77.8 Performed By: #### P TT ####[facility] [address] [place] [address] [facility] Director: Bowen Lemon MD aPTT Coag (Bld) [Time] 71.0 s High 20.5-30.5 [facility] Comment on above: Result Comment: IV Heparin Therapy Range: 48.6-77.8 Performed By: #### P TT ####[address] [address] [facility] Director: Bowen Lemon MD aPTT Coag (Bld) [Time] 68.8 s High 20.5-30.5 [facility] Comment on above: Result Comment: IV Heparin Therapy Range: 48.6-77.8 Performed By: #### P TT ####[place] [address] lab Director: Bowen Lemon MD aPTT Coag (Bld) [Time] 73.8 s High 20.5-30.5 [facility] Comment on above: Result Comment: IV Heparin Therapy Range: 48.6-77.8 Performed By: #### P TT ####[place] [address] lab Director: Bowen Lemon MD aPTT Coag (Bld) [Time] 64.8 s High 20.5-30.5 [facility] Comment on above: Result Comment: IV Heparin Therapy Range: 48.6-77.8 Performed By: #### P TT ####[place] [address] Lab Director: Bowen Lemon MD APTTOrdered By: Ning martines on 04-27-2021 aPTT Coag (Bld) [Time] 55.7 s High [facility] [employer] Phone: Comment on above: IV Heparin Therapy Range: 48.6-77.8 Interpretation and review of laboratory results Abnormal [facility] [employer] Phone: [facility] [employer] Phone: aPTT Coag (Bld) [Time] 71.0 s High [employer] Phone: Comment on above: IV Heparin Therapy Range: 48.6-77.8 Interpretation and review of laboratory results Abnormal [employer] Phone: [employer] Phone: aPTT Coag (Bld) [Time] 68.8 s High [employer] Phone: Comment on above: IV Heparin Therapy Range: 48.6-77.8 Interpretation and review of laboratory results Abnormal [employer] Phone: [employer] Phone: aPTT Coag (Bld) [Time] 73.8 s High [employer] Phone: Comment on above: IV Heparin Therapy Range: 48.6-77.8 Interpretation and review of laboratory results Abnormal [employer] Phone: [employer] Phone: APTTOrdered By: Gee kim on 04-27-2021 aPTT Coag (Bld) [Time] 64.8 s High [facility] [employer] Phone: Comment on above: IV Heparin Therapy Range: 48.6-77.8 Interpretation and review of laboratory results Abnormal [employer] Phone: [employer] Phone: Basic Metab w/rfx MGon 04-27 (cont.) Normal [facility] Comment on above: Result Comment: Aver age GFR for 60-69 years old: 85 mL/min/1.73sq m Chronic Kidney Disease: <60 mL/min/1.73sq m Kidney failure: <15 mL/min/1.73sq m eGFR calculated using average adult body mass. Additional eGFR calculator available at: http://www.[employer].Localytics/multiple_crcl_2012.htm Performed By: #### C BC, BMPX, MG ####[facility] [address] [place], [place] [phone] Director: Bowen Lemon MD Anion gap [Moles/Vol] 11 mmol/L Normal 9-17 [facility] Comment on above: Performed By: #### C BC, BMPX, MG ####[facility] [address] [place], [place] [phone] Director: Bowen Lemon MD Calcium [Mass/Vol] 8.9 mg/dL Normal 8.6-10.4 [facility] Comment on above: Performed By: #### C BC, BMPX, MG ####[facility] [address] [place], [place] [phone] Director: Bowen Lemon MD Chloride [Moles/Vol] 103 mmol/L Normal 98-107 [facility] Comment on above: Performed By: #### C BC, BMPX, MG ####[facility] [address] [place], [place] [id number])[phone] Director: Bowen Lemon MD CO2 [Moles/Vol] 22 mmol/L Normal 20-31 [facility] Comment on above: Performed By: #### C BC, BMPX, MG ####[facility] [address] [place], [place] [phone] Director: Bowen Lemon MD Creatinine [Mass/Vol] 0.80 mg/dL Normal 0.70-1.20 [facility] Comment on above: Performed By: #### C BC, BMPX, MG ####[facility] [address] [place], [place] [phone] Director: Bowen Lemon MD GFR, Amer >60 Normal >60 [facility] Comment on above: Performed By: #### C BC, BMPX, MG ####[facility] [address] [place] [address] Lab Director: Bowen Lemon MD GFR,non Amer >60 Normal >60 [facility] Comment on above: Performed By: #### C BC, BMPX, MG ####[facility] [address] [place], [place] [phone] Director: Bowen Lemon MD Glucose [Mass/Vol] 189 mg/dL High 70-99 [facility] Comment on above: Performed By: #### C BC, BMPX, MG ####[facility] [address] [place], [place] [phone])[phone] Director: Bowen Lemon MD Potassium [Moles/Vol] 3.5 mmol/L Low 3.7-5.3 [facility] Comment on above: Performed By: #### C BC, BMPX, MG ####[facility] [address]ely[address]mcxwc36[address] [place], [place] [phone] Director: Bowen Lemon MD Sodium [Moles/Vol] 136 mmol/L Normal 135-144 [facility] Comment on above: Performed By: #### C BC, BMPX, MG ####[facility] [address] [place], [place] [phone] Director: Bowen Lemon MD Urea nitrogen [Mass/Vol] 11 mg/dL Normal 8-23 [facility] Comment on above: Performed By: #### C BC, BMPX, MG ####[facility] [address] [place], [place] [phone] Director: Bowen Lemon MD BUN/CRE Ratio NOT REPORTED Normal 9-20 [facility] Comment on above: Performed By: #### C BC, BMPX, MG ####[facility] [address]bf[address] [place], [place] [phone] Director: Bowen Lemon MD Staging: NOT REPORTED Normal [facility] Comment on above: Performed By: #### C BC, BMPX, MG ####[employer] [address] [place] [address] Lab Director: Bowen Lemon MD Basic Metabolic PanelOrdered By: Andreas Shepherd on 04-27-2021 Anion gap [Moles/Vol] 13 mmol/L 9 - 17 mmol/L [employer] Phone: Calcium [Mass/Vol] 9.2 mg/dL 8.6 - 10. 4 mg/dL [employer] Phone: Chloride [Moles/Vol] 104 mmol/L 98 - 10 7 mmol/L [employer] Phone: CO2 [Moles/Vol] 20 mmol/L 20 - 31 mmol/L [employer] Phone: Creatinine [Mass/Vol] 0.71 mg/dL 0.70 - 1.20 mg/dL [employer] Phone: GFR >60 >60 mL/min Cyan Phone: GFR Non- >60 >60 mL/min [email or web address] Phone: GFR/1.73 sq M.predicted MDRD (S/P/Bld) [Vol rate/Area] [employer] Phone: Comment on above: Average GFR for 60-6 9 years old: 85 mL/min/1.73sq m Chronic Kidney Disease: <60 mL/min/1.73sq m Kidney failure: <15 mL/min/1.73sq m eGFR calculated using average adult body mass. Additional eGFR calculator available at: http://www.[employer].Localytics/multiple_crcl_2012.htm GFR/1.73 sq M.predicted MDRD (S/P/Bld) [Vol rate/Area] NOT REPORTED [email or web address] Phone: Glucose [Mass/Vol] 280 mg/dL High 70 - 99 mg/dL [email or web address] Phone: Interpretation and review of laboratory results Abnormal [employer] Phone: Potassium [Moles/Vol] 3.9 mmol/L 3.7 - 5.3 mmol/L [employer] Phone: Sodium [Moles/Vol] 137 mmol/L 135 - 144 mmol/L [email or web address] Phone: Urea nitrogen (BldV) [Mass/Vol] 11 mg/dL 8 - 23 mg/dL [email or web address] Phone: Urea nitrogen/Creatinine (Bld) [Mass ratio] NOT REPORTED [email or web address] Phone: Basic Metabolic Panel w/ Ref darlene to MGOrdered By: Jarek Osborn on 04-27-2021 Anion gap [Moles/Vol] 11 mmol/L 9 - 17 mmol/L [employer] Phone: Calcium [Mass/Vol] 8.9 mg/dL 8.6 - 10. 4 mg/dL [employer] Phone: Chloride [Moles/Vol] 103 mmol/L 98 - 10 7 mmol/L [employer] Phone: CO2 [Moles/Vol] 22 mmol/L 20 - 31 mmol/L [employer] Phone: Creatinine [Mass/Vol] 0.8 mg/dL 0.70 - 1.20 mg/dL [email or web address] Phone: GFR >60 >60 mL/min Cyan Phone: GFR Non- >60 >60 mL/min [email or web address] Phone: GFR/1.73 sq M.predicted MDRD (S/P/Bld) [Vol rate/Area] [employer] Phone: Comment on above: Average GFR for 60-6 9 years old: 85 mL/min/1.73sq m Chronic Kidney Disease: <60 mL/min/1.73sq m Kidney failure: <15 mL/min/1.73sq m eGFR calculated using average adult body mass. Additional eGFR calculator available at: http://www.Airware/multiple_crcl_2011.htm GFR/1.73 sq M.predicted MDRD (S/P/Bld) [Vol rate/Area] NOT REPORTED [email or web address] Phone: Glucose [Mass/Vol] 189 mg/dL High 70 - 99 mg/dL [employer] Phone: Interpretation and review of laboratory results Abnormal [employer] Phone: Potassium [Moles/Vol] 3.5 mmol/L Low 3.7 - 5.3 mmol/L [employer] Phone: Sodium [Moles/Vol] 136 mmol/L 135 - 144 mmol/L [employer] Phone: Urea nitrogen (BldV) [Mass/Vol] 11 mg/dL 8 - 23 mg/dL [email or web address] Phone: Urea nitrogen/Creatinine (Bld) [Mass ratio] NOT REPORTED [email or web address] Phone: [employer] Phone: Basic Metabolic Profon 04-27 (cont.) Normal [facility] Comment on above: Result Comment: Aver age GFR for 60-69 years old: 85 mL/min/1.73sq m Chronic Kidney Disease: <60 mL/min/1.73sq m Kidney failure: <15 mL/min/1.73sq m eGFR calculated using average adult body mass. Additional eGFR calculator available at: http://www.[employer]ware/multiple_crcl_2011.htm Performed By: #### B ALBINO MG ####[facility] [address] [place] [address] Lab Director: Shreyas Crain DO Anion gap [Moles/Vol] 13 mmol/L Normal 9-17 [facility] Comment on above: Performed By: #### B ALBINO, MG ####[facility] [address] [place] [address] Lab Director: Shreyas Crain DO Calcium [Mass/Vol] 9.2 mg/dL Normal 8.6-10.4 [facility] Comment on above: Performed By: #### B MP, MG ####[facility] [address] [place] [address] Lab Director: Shreyas Crain DO Chloride [Moles/Vol] 104 mmol/L Normal 98-107 [facility] Comment on above: Performed By: #### B ALBINO, MG ####[facility] [address] [facility] [place] [address] Lab Director: Shreyas Crain DO CO2 [Moles/Vol] 20 mmol/L Normal 20-31 [facility] Comment on above: Performed By: #### B ALBINO, MG ####[facility] [address] [facility] [place] [address] Lab Director: Shreyas Crain DO Creatinine [Mass/Vol] 0.71 mg/dL Normal 0.70-1.20 [facility] Comment on above: Performed By: #### B MP, MG ####[facility] [address] [place] [address] Lab Director: Shreyas Crain DO GFR, Amer >60 Normal >60 [facility] Comment on above: Performed By: #### B MP, MG ####[facility] [address] [place] [address] Lab Director: Shreyas Crain DO GFR,non Amer >60 Normal >60 [facility] Comment on above: Performed By: #### B MP, MG ####[facility] [address] [place] [address] Lab Director: Shreyas Crain DO Glucose [Mass/Vol] 280 mg/dL High 70-99 [facility] Comment on above: Performed By: #### B MP, MG ####[facility] [address] [place] [address] lab Director: Shreyas Crain DO Potassium [Moles/Vol] 3.9 mmol/L Normal 3.7-5.3 [facility] Comment on above: Performed By: #### B ALBINO, MG ####[facility] [address] [place] [address] lab Director: Shreyas Crain DO Sodium [Moles/Vol] 137 mmol/L Normal 135-144 [facility] Comment on above: Performed By: #### B ALBINO, MG ####[facility] [address] [place] [address] Lab Director: Shreyas Crain DO Urea nitrogen [Mass/Vol] 11 mg/dL Normal 8-23 [facility] Comment on above: Performed By: #### B ALBINO, MG ####[facility] [address] [place] [address] Lab Director: Shreyas Crain DO BUN/CRE Ratio NOT REPORTED Normal 9-20 [facility] Comment on above: Performed By: #### B MP, MG ####[facility] [address] [place] [address] Lab Director: Shreyas Crain DO Staging: NOT REPORTED Normal [facility] Comment on above: Performed By: #### B MP, MG ####[facility] [address] [place] [address] Lab Director: Shreyas Crain DO CBCon 04-27-2021 Erythrocyte distribution width (RBC) [Ratio] 13.9 % Normal 11.8-14.4 [facility] Comment on above: Performed By: #### C BC, BMPX, MG ####[facility] [address] [place], [place] [address])[phone] Director: Bowen Lemon MD Hematocrit (Bld) [Volume fraction] 38.2 % Low 40.7-50.3 [facility] Comment on above: Performed By: #### C BC, BMPX, MG ####[place] [place] [address] Lab Director: Bowen Lemon MD Hemoglobin (Bld) [Mass/Vol] 12.9 g/dL Low 13.0-17.0 [facility] Comment on above: Performed By: #### C BC, BMPX, MG ####[facility] [address] [place] [address] Lab Director: Bowen Lemon MD MCH (RBC) [Entitic mass] 30.6 pg Normal 25.2-33.5 [facility] Comment on above: Performed By: #### C BC, BMPX, MG ####[facility] [address] [place] [address] Lab Director: Bowen Lemon MD MCHC (RBC) [Mass/Vol] 33.8 g/dL Normal 28.4-34.8 [facility] Comment on above: Performed By: #### C BC, BMPX, MG ####[facility] [address] [place], [place] [phone] Director: Bowen Lemon MD MCV (RBC) [Entitic vol] 90.5 fL Normal 82.6-102.9 [facility] Comment on above: Performed By: #### C BC, BMPX, MG ####[facility] [address] [place], [place] [phone] Director: Bowen Lemon MD NRBC Automated 0.0 per 100 WBC Normal 0.0 [facility] Comment on above: Performed By: #### C BC, BMPX, MG ####[facility] [address] [place], [place] [phone] Director: Bowen Lemon MD Platelet mean volume (Bld) [Entitic vol] 10.3 fL Normal 8.1-13.5 [facility] Comment on above: Performed By: #### C BC, BMPX, MG ####[facility] [address] [place], [place] [id number])[phone] Director: Bowen Lemon MD Platelets (Bld) [#/Vol] 223 10*3/uL Normal 138-453 [facility] Comment on above: Performed By: #### C BC, BMPX, MG ####[facility] [address] [place], [place] [phone] Director: Bowen Lemon MD RBC (Bld) [#/Vol] 4.22 10*6/uL Normal 4.21-5.77 [facility] Comment on above: Performed By: #### C BC, BMPX, MG ####[facility] [address] [place], [place] [id number])[phone] Director: Bowen Lemon MD WBC (Bld) [#/Vol] 7.9 10*3/uL Normal 3.5-11.3 [facility] Comment on above: Performed By: #### C BC, BMPX, MG ####[facility] [address] [place], [place] [phone] Director: Bowen Lemon MD CBCOrdered By: Gee benoit on 04-27-2021 Hematocrit (Bld) [Volume fraction] 38.2 % Low 40.7 - 50.3 % [email or web address] Phone: Hemoglobin.gastrointest inal spec 1 Ql (Stl) 12.9 g/dL Low 13.0 - 17.0 g/dL [employer] Phone: Interpretation and review of laboratory results Abnormal [employer] Phone: MCH (RBC) [Entitic mass] 30.6 pg 25.2 - 33.5 pg [email or web address] Phone: MCHC (RBC) [Mass/Vol] 33.8 g/dL 28.4 - 34.8 g/dL [email or web address] Phone: MCV (RBC) [Entitic vol] 90.5 fL 82.6 - 102.9 fL [employer] Phone: NRBC Automated 0.0 0.0 per 100 WBC [employer] Phone: Platelet distribution width (Bld) [Ratio] 13.9 % 11.8 - 14.4 % [employer] Phone: Platelet mean volume (Bld) [Entitic vol] 10.3 fL 8.1 - 13.5 fL [employer] Phone: Platelets (Bld) [#/Vol] 223 10*3/uL [employer] Phone: RBC (Bld) [#/Vol] 4.22 10*6/uL 4.21 - 5.77 m/uL [employer] Phone: WBC (Bld) [#/Vol] 7.9 10*3/uL [employer] Phone: [employer] Phone: MAGNESIUMOrdered By: Andreas Shepherd on 04-27-2021 Magnesium [Mass/Vol] 1.8 mg/dL 1.6 - 2 .6 mg/dL [employer] Phone: Magnesiumon 04-27-2021 Magnesium [Mass/Vol] 1.8 mg/dL Normal 1.6-2.6 [facility] Comment on above: Performed By: #### B MP, MG ####[facility] [address] [place] [address] lab Director: Shreyas Crain DO Magnesium [Mass/Vol] 1.3 mg/dL Low 1.6-2.6 [facility] Comment on above: Performed By: #### C BC, BMPX, MG ####[facility] [address] [place], [place] [phone] lab Director: Bowen Lemon MD MagnesiumOrdered By: Jarek Osborn on 04-27-2021 Interpretation and review of laboratory results Abnormal [employer] Phone: Magnesium [Mass/Vol] 1.3 mg/dL Low 1.6 - 2 .6 mg/dL [employer] Phone: [employer] Phone: No Panel InformationOrdered By: Andreas Shepherd on 04-27-2021 [employer] Phone: POC Glucose FingerstickOrder ed By: Ning Wallace on 04-27-2021 Glucose [Mass/Vol] 284 mg/dL High 75 - 110 mg/dL [employer] Phone: Interpretation and review of laboratory results Abnormal [employer] Phone: [employer] Phone: Glucose [Mass/Vol] 254 mg/dL High 75 - 110 mg/dL [employer] Phone: Interpretation and review of laboratory results Abnormal [employer] Phone: [employer] Phone: Glucose [Mass/Vol] 230 mg/dL High 75 - 110 mg/dL [employer] Phone: Interpretation and review of laboratory results Abnormal [employer] Phone: [employer] Phone: Glucose [Mass/Vol] 237 mg/dL High 75 - 110 mg/dL [employer] Phone: Interpretation and review of laboratory results Abnormal [employer] Phone: [employer] Phone: APTTon 04-26-2021 aPTT Coag (Bld) [Time] 44.1 s High 20.5-30.5 [facility] Comment on above: Result Comment: IV Heparin Therapy Range: 48.6-77.8 Performed By: #### P TT ####[place] [address] Lab Director: Bowen Lemon MD aPTT Coag (Bld) [Time] 51.9 s High 20.5-30.5 [facility] Comment on above: Result Comment: IV Heparin Therapy Range: 48.6-77.8 Performed By: #### P TT ####[place] [address] lab Director: Bowen Lemon MD aPTT Coag (Bld) [Time] 48.3 s High 20.5-30.5 [facility] Comment on above: Result Comment: IV Heparin Therapy Range: 48.6-77.8 Performed By: #### P TT ####[place] [address] lab Director: Bowen Lemon MD aPTT Coag (Bld) [Time] 62.7 s High 20.5-30.5 [facility] Comment on above: Result Comment: IV Heparin Therapy Range: 48.6-77.8 Performed By: #### P TT ####[address] [place] [address] lab Director: Bowen Lemon MD APTTOrdered By: Ning martines on 04-26-2021 aPTT Coag (Bld) [Time] 44.1 s High [employer] Phone: Comment on above: IV Heparin Therapy Range: 48.6-77.8 Interpretation and review of laboratory results Abnormal [employer] Phone: [employer] Phone: APTTOrdered By: Gee kim on 04-26-2021 aPTT Coag (Bld) [Time] 51.9 s High [facility] [employer] Phone: Comment on above: IV Heparin Therapy Range: 48.6-77.8 Interpretation and review of laboratory results Abnormal [employer] Phone: [employer] Phone: aPTT Coag (Bld) [Time] 48.3 s High [facility] [employer] [facility] Phone: Comment on above: IV Heparin Therapy Range: 48.6-77.8 Interpretation and review of laboratory results Abnormal [employer] Phone: [employer] Phone: aPTT Coag (Bld) [Time] 62.7 s High [facility] [employer] Phone: Comment on above: IV Heparin Therapy Range: 48.6-77.8 Interpretation and review of laboratory results Abnormal [employer] Phone: [employer] Phone: Basic Metab w/rfx MGon 04-26 Anion gap [Moles/Vol] 12 mmol/L Normal 9-17 [facility] Comment on above: Performed By: #### T ROPI, BMPX, LIPR ####[address] [place] [address] Lab Director: Bowen Lemon MD Calcium [Mass/Vol] 9.3 mg/dL Normal 8.6-10.4 [facility] Comment on above: Performed By: #### T ROPI, BMPX, LIPR ####[facility] [address] [place] [address] Lab Director: Bowen Lemon MD Chloride [Moles/Vol] 102 mmol/L Normal 98-107 [facility] Comment on above: Performed By: #### T ROPI, BMPX, LIPR ####[facility] [address] [place] [address] Lab Director: Bowen Lemon MD CO2 [Moles/Vol] 23 mmol/L Normal 20-31 [facility] Comment on above: Performed By: #### T ROPI, BMPX, LIPR ####[facility] [address] [place], [place] [phone] Director: Bowen Lemon MD Creatinine [Mass/Vol] 0.53 mg/dL Low 0.70-1.20 [facility] Comment on above: Performed By: #### T ROPI, BMPX, LIPR ####[facility] [address] [place] [address] Lab Director: Bowen Lemon MD GFR, Amer >60 Normal >60 [facility] Comment on above: Performed By: #### T ROPI, BMPX, LIPR ####[facility] [address] [place] [address] Lab Director: Bowen Lemon MD GFR,non Amer >60 Normal >60 [facility] Comment on above: Performed By: #### T ROPI, BMPX, LIPR ####[facility] [address] [place] [address] Lab Director: Bowen Lemon MD Glucose [Mass/Vol] 249 mg/dL High 70-99 [facility] Comment on above: Performed By: #### T ROPI, BMPX, LIPR ####[facility] [address] [place], [place] [phone] Director: Bowen Lemon MD Potassium [Moles/Vol] 3.6 mmol/L Low 3.7-5.3 [facility] Comment on above: Performed By: #### T ROPI, BMPX, LIPR ####[facility] [address] [place], [place] [phone] Director: Bowen Lemon MD Sodium [Moles/Vol] 137 mmol/L Normal 135-144 [facility] Comment on above: Performed By: #### T ROPI, BMPX, LIPR ####[facility] [address] [place], [place] [phone] Director: Bowen Lemon MD Urea nitrogen [Mass/Vol] 9 mg/dL Normal 8-23 [facility] Comment on above: Performed By: #### T ROPI, BMPX, LIPR ####[facility] [address] [place], [place] [phone] Director: Bowen Lemon MD (cont.) Normal [facility] Comment on above: Result Comment: Aver age GFR for 60-69 years old: 85 mL/min/1.73sq m Chronic Kidney Disease: <60 mL/min/1.73sq m Kidney failure: <15 mL/min/1.73sq m eGFR calculated using average adult body mass. Additional eGFR calculator available at: http://www.[employer].com/multiple_crcl_2012.htm Performed By: #### T ROPI, BMPX, LIPR ####[facility] [address] [place], [place] [phone] Director: Bowen Lemon MD BUN/CRE Ratio NOT REPORTED Normal 9-20 [facility] Comment on above: Performed By: #### T ROPI, BMPX, LIPR ####[employer] [address] [place] [address] lab Director: Bowen Lemon MD Staging: NOT REPORTED Normal [facility] Comment on above: Performed By: #### T ROPI, BMPX, LIPR ####[employer] [address] [place], [place] [phone] lab Director: Bowen Lemon MD Basic Metabolic Panel w/ Ref darlene to MGOrdered By: Jarek Osborn on 04-26-2021 Anion gap [Moles/Vol] 12 mmol/L 9 - 17 mmol/L [email or web address] Phone: Calcium [Mass/Vol] 9.3 mg/dL 8.6 - 10. 4 mg/dL [email or web address] Phone: Chloride [Moles/Vol] 102 mmol/L 98 - 10 7 mmol/L [employer] Phone: CO2 [Moles/Vol] 23 mmol/L 20 - 31 mmol/L [employer] Phone: Creatinine [Mass/Vol] 0.53 mg/dL Low 0.70 - 1.20 mg/dL [email or web address] Phone: GFR >60 >60 mL/min [facility] Phone: GFR Non- >60 >60 mL/min [email or web address] Phone: GFR/1.73 sq M.predicted MDRD (S/P/Bld) [Vol rate/Area] [email or web address] Phone: Comment on above: Average GFR for 60-6 9 years old: 85 mL/min/1.73sq m Chronic Kidney Disease: <60 mL/min/1.73sq m Kidney failure: <15 mL/min/1.73sq m eGFR calculated using average adult body mass. Additional eGFR calculator available at: http://www.[employer]/multiple_crcl_2012.htm GFR/1.73 sq M.predicted MDRD (S/P/Bld) [Vol rate/Area] NOT REPORTED [email or web address] Phone: Glucose [Mass/Vol] 249 mg/dL High 70 - 99 mg/dL [email or web address] Phone: Potassium [Moles/Vol] 3.6 mmol/L Low 3.7 - 5.3 mmol/L [employer] Phone: Sodium [Moles/Vol] 137 mmol/L 135 - 144 mmol/L [employer] Phone: Urea nitrogen (BldV) [Mass/Vol] 9 mg/dL 8 - 23 mg/dL [email or web address] Phone: Urea nitrogen/Creatinine (Bld) [Mass ratio] NOT REPORTED [email or web address] Phone: Drug Scr, Abuse, Uron 2020 Amphetamine(s),Ur Negative Normal NEG [facility] Comment on above: Result Comment: (Positive cutoff 1000 ng/mL) Performed By: #### U AX, MARITOICAKylah, KIM ####[facility] [address] [place] [address] Lab Director: Bowen Lemon MD Barbiturate(s),Ur Negative Normal NEG [facility] Comment on above: Result Comment: (Positive cutoff 200 ng/mL) Performed By: #### U AX, UMICAO, KIM ####[facility] [address] [place], [place] 1192008 Lab Director: Bowen Lemon MD Benzodiazepine(s) Negative Normal NEG [facility] Comment on above: Result Comment: (Positive cutoff 200 ng/mL) Performed By: #### U AX, UMICAO, KIM ####[facility] [address] [place] [address] Lab Director: Bowen Lemon MD Cannabinoid(s),Ur Negative Normal NEG [facility] Comment on above: Result Comment: (Positive cutoff 50 ng/mL) Performed By: #### U AX, UMICAO, KIM ####[facility] [address] [place] [address] Lab Director: Bowen Lemon MD Cocaine Metabolite Negative Normal NEG [facility] Comment on above: Result Comment: (Positive cutoff 300 ng/mL) Performed By: #### U AX, UMICAO, KIM ####[facility] [address] [place] [address] Lab Director: Bowen Lemon MD Interpretive Info Assay provides medic al screening only. The absence of expected drug(s) and/or Normal [facility] Comment on above: Result Comment: meta bolite(s) may indicate diluted or adulterated urine, limitations of testing or timing of collection. Testing for legal purposes should be confirmed by another method. To request confirmation of test result, please call the lab within 7 days of sample submission. Performed By: #### U AXDANIEL, KIM ####[facility] [address] [place] [address] Lab Director: Bowen Lemon MD Methadone Ql (U) Negative Normal NEG [facility] Comment on above: Result Comment: (Positive cutoff 300 ng/mL) Performed By: #### U AX, UMICAO, KIM ####[facility] [address] [place] [address] Lab Director: Bowen Lemon MD Opiate(s), Ur Negative Normal NEG [facility] Comment on above: Result Comment: (Positive cutoff 300 ng/mL) Performed By: #### U AX, UMICAO, KIM ####[facility] [address] [place] [address] Lab Director: Bowen Lemon MD Oxycodone, Urine Negative Normal NEG [facility] Comment on above: Result Comment: (Positive cutoff 100 ng/mL) Performed By: #### U AX, UMICAO, KIM ####[facility] [address] [place] [address] Lab Director: Bowen Lemon MD Phencyclidine, Ur Negative Normal NEG [facility] Comment on above: Result Comment: (Positive cutoff 25 ng/mL) Performed By: #### U AX, UMICAO, KIM ####[facility] [address] [place] [address] Lab Director: Bowen Lemon MD Buprenorphrine, Ur NOT REPORTED Normal NEG [facility] Comment on above: Performed By: #### U AX, UMICAO, KIM ####[facility] [address] [place] [address] Lab Director: Bowen Lemon MD MDMA, Urine NOT REPORTED Normal NEG [facility] Comment on above: Performed By: #### U AX, UMICAO, KIM ####[facility] [address] [place] [address] Lab Director: Bowen Lemon MD Methamphetamine, Ur NOT REPORTED Normal NEG [facility] Comment on above: Performed By: #### U AX, UMICAO, KIM ####[facility] [address] [place] [address] Lab Director: Bowen Lemon MD Propoxyphene,Urine NOT REPORTED Normal NEG [facility] Comment on above: Performed By: #### U AX, UMICAO, KIM ####[facility] [address] [place] [address] Lab Director: Bowen Lemon MD Tricyclic antidepressants Screen Ql (U) NOT REPORTED Normal NEG [facility] Comment on above: Performed By: #### U AX, UMICAO, KIM ####[facility] [address] [place] [address] Lab Director: Bowen Lemon MD EKG 12 LeadOrdered By: Milton Parnell on 04-26-2021 Atrial Rate 83 BPM [email or web address] Phone: P [place] 48 degrees [email or web address] Phone: P-R Interval 158 ms [email or web address] Phone: Q-T Interval 394 ms [email or web address] Phone: QRS Duration 98 ms [email or web address] Phone: QTc Calculation (Bazett) 462 ms [email or web address] Phone: R [place] -20 degrees [email or web address] Phone: T [place] 89 degrees [email or web address] Phone: Ventricular Rate 83 BPM [email or web address] Phone: Normal sinus rhythm Normal ECG When compared with ECG of 24-APR-2021 21:59, No significant change was found [email or web address] Phone: Adam, Mhpn Incoming E kg Results From [employer] - 04/26/2021 1:58 PM EDT Normal sinus rhythm Normal ECG When compared with ECG of 24-APR-2021 21:59, No significant change was found [email or web address] Phone: [employer] Phone: LIPID PANELOrdered By: Jay Osborn on 04-26-2021 Cholesterol [Mass/Vol] 112 mg/dL <200 [facility] Phone: Comment on above: Cholesterol Guidelines: <200 Desirable 200-240 Borderline >240 Undesirable Cholesterol in HDL [Mass/Vol] 25 mg/dL Low >40 [email or web address] Phone: Comment on above: HDL Guidelines: <40 Undesirable 40-59 Borderline >59 Desirable Cholesterol in LDL [Mass/Vol] 51 mg/dL 0 - 130 mg/dL [facility] Phone: Comment on above: LDL Guidelines: <100 Desirable 100-129 Near to/above Desirable 130-159 Borderline >159 Undesirable Direct (measured) LDL and calculated LDL are not interchangeable tests. Cholesterol in VLDL [Mass/Vol] NOT REPORTED High 1 - 30 mg/dL [facility] [employer] Phone: Cholesterol.total/Adnia sterol in HDL [Mass ratio] 4.5 {ratio} <5 [facility] Phone: Triglyceride [Mass/Vol] 181 mg/dL High <150 M [facility] [employer] Phone: Comment on above: Triglyceride Guidelines: <150 Desirable 150-199 Borderline 200-499 High >499 Very high Based on AHA Guidelines for fasting triglyceride, July 2012. Lipid Profileon 04-26-2021 Cholesterol [Mass/Vol] 112 mg/dL Normal <200 [facility] Comment on above: Result Comment: Cholesterol Guidelines: <200 Desirable 200-240 Borderline >240 Undesirable Performed By: #### T ROPI, BMPX, LIPR ####[address] [place] [id number] Lab Director: Bowen Lemon MD Cholesterol in HDL [Mass/Vol] 25 mg/dL Low >40 [facility] Comment on above: Result Comment: HDL Guidelines: <40 Undesirable 40-59 Borderline >59 Desirable Performed By: #### T ROPI, BMPX, LIPR ####[address] [place], [place] [id number] Lab Director: Bowen Lemon MD Cholesterol in LDL [Mass/Vol] 51 mg/dL Normal 0-130 [facility] Comment on above: Result Comment: LDL Guidelines: <100 Desirable 100-129 Near to/above Desirable 130-159 Borderline >159 Undesirable Direct (measured) LDL and calculated LDL are not interchangeable tests. Performed By: #### T ROPI, BMPX, LIPR ####[address] [place] [address] [place] [address] lab Director: Bowen Lemon MD Cholesterol.total/Dania sterol in HDL [Mass ratio] 4.5 {ratio} Normal <5 [facility] Comment on above: Performed By: #### T ROPI, BMPX, LIPR ####[facility] [address] [place] [address] lab Director: Bowen Lemon MD Triglyceride [Mass/Vol] 181 mg/dL High <150 M [facility] Comment on above: Result Comment: Triglyceride Guidelines: <150 Desirable 150-199 Borderline 200-499 High >499 Very high Based on AHA Guidelines for fasting triglyceride, July 2012. 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 Mild chronic microvascular disease within the periventricular white matter. Moderate cerebral atrophy. Susceptibility within the right parietal lobe periventricular white matter which may represent a cavernoma versus old hemorrhage. [email or web address] Phone: EXAMINATION: MRI OF THE BRAIN WITHOUT [...] The soft tissues demonstrate no acute abnormality. [email or web address] Phone: Adam, Mhpn Incoming R adiant Results From [employer] - 04/26/2021 3:56 PM EDT EXAMINATION: MRI [...] may represent a cavernoma versus old hemorrhage. [email or web address] Phone: [employer] Phone: MRI CERVICAL SPINE WO CONTRA STon [...] Dhruv Noriega MD 04/26/21 Final result Normal [facility] MRI CERVICAL SPINE WO CONTRA STOrdered By: Esteban Serrano on 04-26-2021 Congenital spinal ca nal stenosis superimposed moderate diffuse degenerative disc disease Moderate central canal stenosis at C5-C6 and C6-C7 and to slightly lesser extent at C3-C4. Multilevel bilateral neural foraminal stenosis as noted above most severe C3-C4 and C6-C7. [facility] [employer] Phone: EXAMINATION: MRI OF THE CERVICAL [...] spinal canal stenosis or neural foraminal narrowing. [employer] Phone: Adam, Mhpn Incoming R adiant Results From [employer] - 04/26/2021 3:56 PM EDT EXAMINATION: MRI [...] noted above most severe C3-C4 and C6-C7. [email or web address] Phone: [email or web address] Phone: MRI LUMBAR SPINE WO CONTRAST on [...] Dhruv Noriega MD 04/26/21 Final result Normal [facility] MRI LUMBAR SPINE WO CONTRAST Ordered [...] at L4-L5. Borderline congenital spinal canal stenosis. [facility] [employer] Phone: EXAMINATION: MRI OF THE LUMBAR SPINE [...] encroachment by disc bulge and facet disease. [email or web address] Phone: Adam, Mhpn Incoming R adiant Results From [employer] - 04/26/2021 3:56 PM EDT EXAMINATION: MRI [...] at L4-L5. Borderline congenital spinal canal stenosis. [email or web address] Phone: [employer] Phone: No Panel InformationOrdered By: Jarek Osborn on 04-26-2021 Interpretation and review of laboratory results Abnormal [email or web address] Phone: [employer] Phone: Troponinon 04-26-2021 Troponin, High Sens 267 ng/L Critically high 0-22 [facility] Comment on above: Result Comment: High Sensitivity Troponin values cannot be compared with other Troponin methodologies. Patients with high levels of Biotin oral intake (i.e >5mg/day) may have falsely decreased Troponin levels. Samples collected within 8 hours of biotin intake may require additional information for diagnosis. Previous Alert Value Reported Performed By: #### T ROPI ####[address] [place] [id number] Lab Director: Bowen Lemon MD Troponin Interp. NOT REPORTED Normal [facility] Comment on above: Performed By: #### T ROPI ####[address] [place] [address] [id number] Lab Director: Bowen Lemon MD Troponin T NOT REPORTED Normal <0.03 [facility] Comment on above: Performed By: #### T ROPI ####[address] [place] [address] [id number] Lab Director: Bowen Lemon MD Troponin, High Sens 199 ng/L Critically high 022 [facility] Comment on above: Result Comment: High Sensitivity Troponin values cannot be compared with other Troponin methodologies. Patients with high levels of Biotin oral intake (i.e >5mg/day) may have falsely decreased Troponin levels. Samples collected within 8 hours of biotin intake may require additional information for diagnosis. Previous Alert Value Reported Performed By: #### T ROPI, BMPX, LIPR ####[facility] [address] [place], [place] [phone] Lab Director: Bowen Lemon MD Troponin Interp. NOT REPORTED Normal [facility] Comment on above: Performed By: #### T ROPI, BMPX, LIPR ####[facility] [address] [place], [place] [phone] lab Director: Bowen Lemon MD Troponin T NOT REPORTED Normal <0.03 [facility] Comment on above: Performed By: #### T ROPI, BMPX, LIPR ####[facility] [address] [place], [place] [phone] Lab Director: Bowen Lemon MD TroponinOrdered By: Jarek mar on 04-26-2021 Interpretation and review of laboratory results Abnormal [email or web address] Phone: Troponin Interp NOT REPORTED [email or web address] Phone: Troponin T NOT REPORTED <0.03 ng/mL [email or web address] Phone: Troponin, High Sensitivity 267 ng/L Critically high 0 - 22 ng/L [email or web address] Phone: Comment on above: High Sensitivity Troponin values cannot be compared with other Troponin methodologies. Patients with high levels of Biotin oral intake (i.e >5mg/day) may have falsely decreased Troponin levels. Samples collected within 8 hours of biotin intake may require additional information for diagnosis. Previous Alert Value Reported [email or web address] Phone: TroponinOrdered By: Babak benton on 04-26-2021 Interpretation and review of laboratory results Abnormal [email or web address] Phone: Troponin Interp NOT REPORTED [email or web address] Phone: Troponin T NOT REPORTED <0.03 ng/mL [email or web address] Phone: Troponin, High Sensitivity 199 ng/L Critically high 0 - 22 ng/L [email or web address] Phone: Comment on above: High Sensitivity Troponin values cannot be compared with other Troponin methodologies. Patients with high levels of Biotin oral intake (i.e >5mg/day) may have falsely decreased Troponin levels. Samples collected within 8 hours of biotin intake may require additional information for diagnosis. Previous Alert Value Reported [email or web address] Phone: UA w/Reflex Cultureon 2020 Bilirubin, SemiQt,Ur Negative Normal NEG [facility] Comment on above: Performed By: #### U AX, UMICAO, KIM ####[facility] [address] [place] [address] Lab Director: Bowen Lemon MD Blood, Urine TRACE Abnormal NEG [facility] Comment on above: Performed By: #### U AX, UMICAO, KIM ####[facility] [address] [place], [place] [phone] Director: Bowen Lemon MD Clarity (U) CLEAR Normal CLEAR [facility] Comment on above: Performed By: #### U AX, UMICAO, KIM ####[facility] [address] [place] [address] Lab Director: Bowen Lemon MD Color (U) YELLOW Normal YEL [facility] Comment on above: Performed By: #### U AX, UMICAO, KIM ####[facility] [address] [place] [address] Lab Director: Bowen Lemon MD Glucose Ql (U) 1+ Abnormal NEG [facility] Comment on above: Performed By: #### U AX, UMICAO, KIM ####[facility] [address] [place] [address] Lab Director: Bowen Lemon MD Ketones Ql (U) TRACE Abnormal NEG [facility] Comment on above: Performed By: #### U AX, UMICAO, KIM ####[facility] [address] [place] [address] Lab Director: Bowen Lemon MD Leukocyte esterase Test strip Ql (U) Negative Normal NEG [facility] Comment on above: Performed By: #### U AX, UMICAO, KMI ####[facility] [address] [place] [address] Lab Director: Bowen Lemon MD Nitrite,Ur Negative Normal NEG [facility] Comment on above: Performed By: #### U AX, UMICAO, KIM ####[facility] [address] [place], [place] [address])[phone] Director: Bowen Lemon MD PH,Ur 7.0 Normal 5.0-8.0 [facility] Comment on above: Performed By: #### U AX, UMICAO, KIM ####[facility] [address] [place] [address] Lab Director: Bowen Lemon MD Protein Ql (U) 2+ Abnormal NEG [facility] Comment on above: Performed By: #### U AX, UMICAO, KIM ####[facility] [address] [place] [address] Lab Director: Bowen Lemon MD Spec. [place],Ur 1.012 Normal 1.005-1.03 0 [facility] Comment on above: Performed By: #### U AX, UMICAO, KIM ####[facility] [address] [place] [address] Lab Director: Bowen Lemon MD Urobilinogen,Ur Normal Normal NORM [facility] Comment on above: Performed By: #### U AX, UMICAO, KIM ####[facility] [address] [place], [place] [phone] Director: Bowen Lemon MD Comment NOT REPORTED Normal [facility] Comment on above: Performed By: #### U AX, UMICAO, KIM ####[facility] [address] [place], [place] [id number])[phone] Director: Bowen Lemon MD Urinalysis,Microon 1 ----- Normal [facility] Comment on above: Performed By: #### U AX, UMICAO, KIM ####[facility] [address] [place], [place] [phone] Director: Bowen Lemon MD Epithelial cells LM Ql (Urine sed) None Normal 0-5 [facility] Comment on above: Performed By: #### U AX, UMICAO, KIM ####[facility] [address]uns[address] [place], [place] [phone] Director: Bowen Lemon MD Urine RBC's 5 TO 10 Normal 0-4 [facility] Comment on above: Result Comment: Refe rence range defined for non-centrifuged specimen. Performed By: #### U AX, UMICAO, KIM ####[facility] [address] [place], [place] [phone] Director: Bowen Lemon MD Urine WBC's None Normal 0-5 [facility] Comment on above: Performed By: #### U AX, UMICAO, KIM ####[facility] [address] [place], [place] [phone])[phone] Director: Bowen Lemon MD Amorphous sediment LM Ql (Urine sed) NOT REPORTED Normal NONE [facility] Comment on above: Performed By: #### U AX, UMICAO, KIM ####[facility] [address]tr[address]upqgbm[address] [place], [place] [phone] Director: Bowen Lemon MD Bacteria NOT REPORTED Normal NONE [facility] Comment on above: Performed By: #### U AX, UMICAO, KIM ####[facility] [address] [place] [address] Lab Director: Bowen Lemon MD Casts NOT REPORTED Normal 0-8 [facility] Comment on above: Performed By: #### U AX, UMICAO, KIM ####[facility] [address] [place] [address] Lab Director: Bowen Lemon MD Crystals LM Nom (Urine sed) NOT REPORTED Normal NONE [facility] Comment on above: Performed By: #### U AX, UMICAO, KIM ####[facility] [address] [place] [address] Lab Director: Bowen Lemon MD Epithelial, Renal NOT REPORTED Normal 0 [facility] Comment on above: Performed By: #### U AX, UMICAO, KIM ####[facility] [address] [place] [address] Lab Director: Bowen Lemon MD Mucus Strands NOT REPORTED Normal [facility] Comment on above: Performed By: #### U AX, UMICAO, KIM ####[facility] [address] [place] [address] Lab Director: Bowen Lemon MD Other Observations NOT REPORTED Normal NREQ [facility] Comment on above: Performed By: #### U AX, UMICAO, KIM ####[facility] [address] [place] [address] Lab Director: Bowen Lemon MD Trichomonas NOT REPORTED Normal NONE [facility] Comment on above: Performed By: #### U AX, UMICAO, KIM ####[facility] [address] [place] [address] Lab Director: Bowen Lemon MD Yeast NOT REPORTED Normal NONE [facility] Comment on above: Performed By: #### U AX, UMICAO, KIM ####[facility] [address]th[address] [place], [place] [phone] lab Director: Bowen Lemon MD APTTon 04-25-2021 aPTT Coag (Bld) [Time] 24.8 s Normal 20.5-30.5 [facility] Comment on above: Result Comment: IV Heparin Therapy Range: 48.6-77.8 Performed By: #### P TT ####[facility] [address] [place] [address] [phone] lab Director: Bowen Lemon MD aPTT Coag (Bld) [Time] 78.5 s High 20.5-30.5 [facility] Comment on above: Result Comment: IV Heparin Therapy Range: 48.6-77.8 Performed By: #### C BC, PTT ####[facility] [address] [place] [address] lab Director: Bowen Lemon MD APTTOrdered By: Pj Becerril on 04-25-2021 aPTT Coag (Bld) [Time] 24.8 s [facility] Phone: Comment on above: IV Heparin Therapy Range: 48.6-77.8 [facility] Phone: APTTOrdered By: Gee kim on 04-25-2021 aPTT Coag (Bld) [Time] 78.5 s High [facility] Phone: Comment on above: IV Heparin Therapy Range: 48.6-77.8 Interpretation and review of laboratory results Abnormal [facility] Phone: [facility] Phone: B12/Folate Panelon Folic Acid 15.2 ng/mL Normal >4.8 [facility] Comment on above: Performed By: #### B 12FOL ####[facility] [address] [place] [address] Lab Director: Bowen Lemon MD B12/Folate PanelOrdered By: Sabrina Aguiar on 04-25-2021 Cobalamin (Vitamin B12) [Mass/Vol] 594 pg/mL Normal 232-1245 [email or web address] Phone: Comment on above: Performed By: #### B 12FOL ####[facility] [address]bp[address] [place] [address] Lab Director: Bowen Lemon MD C-Reactive Proteinon CRP [Mass/Vol] 8.1 mg/L High 0.0-5.0 [facility] Comment on above: Performed By: #### S ED, CRP, STROKE #### [facility] [address] [place] [address] Welder Explosion: Bowen Lemon MD C-Reactive ProteinOrdered By : Kranthi Ruvalcaba on 04-25-2021 CRP [Mass/Vol] 8.1 mg/L High 0.0 - 5.0 mg/L [email or web address] Phone: Interpretation and review of laboratory results Abnormal [email or web address] Phone: [email or web address] Phone: CBCon 04-25-2021 Erythrocyte distribution width (RBC) [Ratio] 14.0 % Normal 11.8-14.4 [facility] Comment on above: Performed By: #### C BC, PTT ####[employer] [address] [place] [address] Lab Director: Bowen Lemon MD Hematocrit (Bld) [Volume fraction] 41.8 % Normal 40.7-50.3 [facility] Comment on above: Performed By: #### C BC, PTT ####[facility] [address] [place] [address] Lab Director: Bowen Lemon MD Hemoglobin (Bld) [Mass/Vol] 13.8 g/dL Normal 13.0-17.0 [facility] Comment on above: Performed By: #### C BC, PTT ####[facility] [address] [place] [address] Lab Director: Bowen Lemon MD MCH (RBC) [Entitic mass] 30.7 pg Normal 25.2-33.5 [facility] Comment on above: Performed By: #### C BC, PTT ####[facility] [address] [place] [address] Lab Director: Bowen Lemon MD MCHC (RBC) [Mass/Vol] 33.0 g/dL Normal 28.4-34.8 [facility] Comment on above: Performed By: #### C BC, PTT ####[facility] [address] [place] [address] Lab Director: Bowen Lemon MD MCV (RBC) [Entitic vol] 93.1 fL Normal 82.6-102.9 [facility] Comment on above: Performed By: #### C BC, PTT ####[facility] [address] [place] [address] Lab Director: Bowen Lemon MD NRBC Automated 0.0 per 100 WBC Normal 0.0 [facility] Comment on above: Performed By: #### C BC, PTT ####[facility] [address] [place] [address] Lab Director: Bowen Lemon MD Platelet mean volume (Bld) [Entitic vol] 10.3 fL Normal 8.1-13.5 [facility] Comment on above: Performed By: #### C BC, PTT ####[facility] [address] [place] [address] Lab Director: Bowen Lemon MD Platelets (Bld) [#/Vol] 195 10*3/uL Normal 138-453 [facility] Comment on above: Performed By: #### C BC, PTT ####[facility] [address] [place] [address] Lab Director: Bowen Lemon MD RBC (Bld) [#/Vol] 4.49 10*6/uL Normal 4.21-5.77 [facility] Comment on above: Performed By: #### C BC, PTT ####[facility] [address] [place] [address] lab Director: Bowen Lemon MD WBC (Bld) [#/Vol] 6.7 10*3/uL Normal 3.5-11.3 [facility] Comment on above: Performed By: #### C BC, PTT ####[facility] [address] [place] [address] lab Director: Bowen Lemon MD CBCOrdered By: Gee benoit on 04-25-2021 Hematocrit (Bld) [Volume fraction] 41.8 % 40.7 - 50.3 % [email or web address] Phone: Hemoglobin.gastrointest inal spec 1 Ql (Stl) 13.8 g/dL 13.0 - 17.0 g/dL [email or web address] Phone: MCH (RBC) [Entitic mass] 30.7 pg 25.2 - 33.5 pg [email or web address] Phone: MCHC (RBC) [Mass/Vol] 33.0 g/dL 28.4 - 34.8 g/dL [email or web address] Phone: MCV (RBC) [Entitic vol] 93.1 fL 82.6 - 102.9 fL [email or web address] Phone: NRBC Automated 0.0 0.0 per 100 WBC [email or web address] Phone: Platelet distribution width (Bld) [Ratio] 14.0 % 11.8 - 14.4 % [email or web address] Phone: Platelet mean volume (Bld) [Entitic vol] 10.3 fL 8.1 - 13.5 fL [email or web address] Phone: Platelets (Bld) [#/Vol] 195 10*3/uL [email or web address] Phone: RBC (Bld) [#/Vol] 4.49 10*6/uL 4.21 - 5.77 m/uL [email or web address] Phone: WBC (Bld) [#/Vol] 6.7 10*3/uL [email or web address] Phone: [employer] Phone: COVID-19, RapidOrdered By: Alonso Oreilly on 04-25-2021 SARS-CoV-2 (COVID-19) RNA PLACIDO+probe Ql (Unsp spec) Not detected Not Detected [email or web address] Phone: Comment on above: Rapid NAAT: The [...] management decisions. Fact sheet for Healthcare Providers: https://www.fda.gov/media/411895/download Fact sheet for Patients: https://www.fda.gov/media/085783/download Methodology: Isothermal Nucleic Acid Amplification Specimen Description .NASOPHARYNGEAL SWAB [employer] Phone: [employer] Phone: CT ABDOMEN PELVIS WO CONTRAS Ton [...] Guero Juárez MD 04/25/21 Final result Normal [facility] CT ABDOMEN PELVIS WO CONTRAS T [...] secondary to encroachment by disc osteophyte complex. [employer] Phone: EXAMINATION: CT OF T HE [...] soft tissues are otherwise unremarkable in appearance. [employer] Phone: Adam, Mhpn Incoming R adiant Results From [employer] - 04/25/2021 5:21 AM EDT EXAMINATION: CT [...] secondary to encroachment by disc osteophyte complex. [employer] Work Phone: [employer] Work Phone: CT CERVICAL SPINE WO CONTRAS [...] of significant central canal stenosis/compromise identified. Multilevel tbyr-vm-yrydujfb facet degenerative hypertrophy is seen. C3/C4 mild [...] Guero Juárez MD 04/24/21 Final result Normal [facility] CT HEAD WO CONTRASTon 2020 CT [...] Bandar Ardon MD 04/24/21 Final result Normal [facility] CTA HEAD NECK W CONTRASTon 0 [...] Guero Juárez MD 04/24/21 Final result Normal [facility] DRUG SCREEN MULTI URINEOrder ed By: Jarek Osborn on 04-25-2021 Amphetamine Screen, Ur Negative NEGATIVE [facility] [employer] Phone: Comment on above: (Positive cutoff 1000 ng/mL) Barbiturate Screen, Ur Negative NEGATIVE [facility] [employer] Phone: Comment on above: (Positive cutoff 200 ng/mL) Benzodiazepine Screen, Urine Negative NEGATIVE [facility] [employer] Phone: Comment on above: (Positive cutoff 200 ng/mL) Buprenorphine Urine NOT REPORTED NEGATIVE [facility] [employer] Work Phone: Cannabinoid Scrn, Ur Negative NEGATIVE [facility] [employer] Phone: Comment on above: (Positive cutoff 50 ng/mL) Cocaine Metabolite, Urine Negative NEGATIVE [facility] [employer] Phone: Comment on above: (Positive cutoff 300 ng/mL) MDMA, Urine NOT REPORTED NEGATIVE [facility] [employer] Phone: Methadone Screen, Urine Negative NEGATIVE [facility] [employer] Phone: Comment on above: (Positive cutoff 300 ng/mL) Methamphetamine, Urine NOT REPORTED NEGATIVE [email or web address] Phone: Opiates, Urine Negative NEGATIVE [employer] Phone: Comment on above: (Positive cutoff 300 ng/mL) Oxycodone Screen, Ur Negative NEGATIVE [employer] Phone: Comment on above: (Positive cutoff 100 ng/mL) Phencyclidine, Urine Negative NEGATIVE [employer] Phone: Comment on above: (Positive cutoff 25 ng/mL) Propoxyphene, Urine NOT REPORTED NEGATIVE [employer] Phone: Test Information Assay provides medic al screening only. The absence of expected drug(s) and/or metabolite(s) may indicate diluted or adulterated urine, limitations of testing or timing of collection. [email or web address] Phone: Comment on above: Testing for legal pu rposes should be confirmed by another method. To request confirmation of test result, please call the lab within 7 days of sample submission. Tricyclic Antidepressants, Urine NOT REPORTED NEGATIVE [email or web address] Phone: [email or web address] Phone: EEG awake and drowsyOrdered By: Sabrina [...] Continuous Gee Dewey MD 13.9 mL/hr at 04/25/21 223 13.783 Units/kg/hr at 04/25/21 223 atorvastatin (LIPITOR) tablet 40 mg 40 mg [...] BID Gee Dewey MD 25 mg at 04/25/21 2225 [START ON 04/26/2021] clopidogrel (PLAVIX) tablet 75 mg 75 mg Oral Daily Patience Dewey MD pantoprazole (PROTONIX) tablet 40 mg 40 mg Oral Nightly Gee Parnell MD 40 mg at 04/25/21 2225 Technical Description: This is a 21 channel [...] non specific etiology. Juan Judd MD Diplomate, [email or web address] Phone: [employer] Phone: EKG 12 LeadOrdered By: Rashawn Ruvalcaba on 04-25-2021 Atrial Rate 84 BPM [email or web address] Phone: P [place] 43 degrees [employer] Phone: P-R Interval 166 ms [email or web address] Phone: Q-T Interval 380 ms [email or web address] Phone: QRS Duration 96 ms [employer] Phone: QTc Calculation (Bazett) 449 ms [email or web address] Phone: R [place] -8 degrees [employer] Phone: T [place] 99 degrees [employer] Phone: Ventricular Rate 84 BPM [employer] Phone: Normal sinus rhythm Abnormal QRS-T angle, consider primary T wave abnormality Abnormal ECG When compared with ECG of 30-OCT-2019 17:11, No significant change was found [email or web address] Phone: Adam, Mhpn Incoming E kg Results From [employer] - 04/25/2021 1:23 PM EDT Normal sinus rhythm Abnormal QRS-T angle, consider primary T wave abnormality Abnormal ECG When compared with ECG of 30-OCT-2019 17:11, No significant change was found [email or web address] Phone: [employer] Phone: HEMOGLOBIN [id number] By: Rolando Epstein on 04-25-2021 Glucose [Mass/Vol] 169 mg/dL [email or web address] Phone: Comment on above: The ADA and AACC rec ommend providing the estimated average glucose result to permit better patient understanding of their HBA1c result. HbA1c (Bld) [Mass fraction] 7.5 % High 4.0 - 6.0 % [email or web address] Phone: Interpretation and review of laboratory results Abnormal [email or web address] Phone: [employer] Phone: Hemoglobin A1Con 04-25-2021 Glucose [Mass/Vol] 169 mg/dL Normal [facility] Comment on above: Result Comment: The ADA and AACC recommend providing the estimated average glucose result to permit better patient understanding of their HBA1c result. Performed By: #### G LYHGB ####[employer] [address] [place], [place] [id number] lab Director: Bowen Lemon MD HbA1c (Bld) [Mass fraction] 7.5 % High 4.0-6.0 [facility] Comment on above: Performed By: #### G LYHGB ####[employer] [address] [place], [place] 72401[address] Lab Director: Bowen Lemon MD Microscopic UrinalysisOrdere d By: Jarek Osborn on 04-25-2021 - [employer] Phone: Amorphous, UA NOT REPORTED None [employer] Phone: Bacteria, UA NOT REPORTED None [employer] Phone: Casts UA NOT REPORTED [facility] Phone: Crystals, UA NOT REPORTED None /HPF [facility] Phone: Epithelial Cells UA None [employer] Phone: Mucus, UA NOT REPORTED None [employer] Phone: Other Observations UA NOT REPORTED NOT REQ. [facility] Phone: RBC, UA 5 TO 10 [facility] Phone: Comment on above: Reference range defi odette for non-centrifuged specimen. Renal Epithelial, UA NOT REPORTED 0 /HPF Me [facility] [employer] Phone: Trichomonas, UA NOT REPORTED None [employer] Phone: WBC, UA None [email or web address] Phone: Yeast, UA NOT REPORTED None [employer] Phone: [employer] Phone: POC Glucose FingerstickOrder ed By: Callie Murrell on 04-25-2021 Glucose [Mass/Vol] 224 mg/dL High 75 - 110 mg/dL [email or web address] Phone: Interpretation and review of laboratory results Abnormal [email or web address] Phone: [employer] Phone: [id number] 04-25-2021 SARS-CoV-2 (COVID-19) RNA PLACIDO+probe Ql (Unsp spec) Not detected Normal [facility] Comment on above: Result Comment: Rapid [...] management decisions. Fact sheet for Healthcare Providers: https://www.fda.gov/media/472107/download Fact sheet for Patients: https://www.fda.gov/media/090164/download Methodology: Isothermal Nucleic Acid Amplification Performed By: #### C OVRB #### [facility] [address] [place] [address] Welder Explosion: Bowen Lemon MD STROKE PANELOrdered By: Tuan Ruvalcaba on 04-25-2021 % CKMB 4.6 % High 0.0 - 3.5 % [employer] Phone: Absolute Eos # 0.07 [employer] Phone: Absolute Immature Granulocyte 0.04 [employer] Phone: Absolute Lymph # 2.89 [employer] Phone: Absolute Gladwin # 0.72 [employer] Phone: Anion gap [Moles/Vol] 16 mmol/L 9 - 17 mmol/L [employer] Phone: aPTT Coag (Bld) [Time] 23.4 s [employer] Phone: Comment on above: IV Heparin Therapy Range: 48.6-77.8 Basophils (Bld) [#/Vol] 0.05 10*3/uL [email or web address] Phone: Basophils/100 WBC (Bld) 1 % 0 - 2 % [facility] [employer] Phone: Calcium [Mass/Vol] 9.8 mg/dL 8.6 - 10. 4 mg/dL [employer] Phone: Chloride [Moles/Vol] 99 mmol/L 98 - 10 7 mmol/L [employer] Phone: CK [Catalytic activity/Vol] 108 U/L 39 - 308 U/L [employer] Phone: CK.MB [Mass/Vol] 5 ng/mL <10.5 [employer] Phone: CKMB Interpretation NORMAL ISOENZYME PATTERN [employer] Phone: CO2 [Moles/Vol] 19 mmol/L Low 20 - 31 mmol/L [employer] Phone: Creatinine [Mass/Vol] 0.82 mg/dL 0.70 - 1.20 mg/dL [employer] Phone: Differential Type NOT REPORTED [employer] Phone: Eosinophils/100 WBC (Bld) 1 % 1 - 4 % [email or web address] Phone: GFR >60 >60 mL/min [employer] Phone: GFR Non- >60 >60 mL/min [email or web address] Phone: GFR/1.73 sq M.predicted MDRD (S/P/Bld) [Vol rate/Area] [employer] Phone: Comment on above: Average GFR for 60-6 9 years old: 85 mL/min/1.73sq m Chronic Kidney Disease: <60 mL/min/1.73sq m Kidney failure: <15 mL/min/1.73sq m eGFR calculated using average adult body mass. Additional eGFR calculator available at: http://www.[employer].Localytics/multiple_crcl_2012.htm GFR/1.73 sq M.predicted MDRD (S/P/Bld) [Vol rate/Area] NOT REPORTED [email or web address] Phone: Glucose [Mass/Vol] 130 mg/dL High 70 - 99 mg/dL [employer] Phone: Hematocrit (Bld) [Volume fraction] 44.0 % 40.7 - 50.3 % [employer] Phone: Hemoglobin.gastrointest inal spec 1 Ql (Stl) 14.5 g/dL 13.0 - 17.0 g/dL [email or web address] Phone: Immature granulocytes/100 WBC (Bld) 0 % 0 [employer] Phone: INR Coag (Bld) [Relative time] 1.0 {INR} [employer] Phone: Comment on above: Therapeutic Range: Moderate Anticoagulant Intensity: INR = 2.0-3.0 High Anticoagulant Intensity: INR = 2.5-3.5 Interpretation and review of laboratory results Abnormal [employer] Phone: Lymphocytes/100 WBC (Bld) 29 % 24 - 43 % [employer] Phone: MCH (RBC) [Entitic mass] 29.9 pg 25.2 - 33.5 pg [email or web address] Phone: MCHC (RBC) [Mass/Vol] 33.0 g/dL 28.4 - 34.8 g/dL [email or web address] Phone: MCV (RBC) [Entitic vol] 90.7 fL 82.6 - 102.9 fL [employer] Phone: Monocytes/100 WBC (Bld) 7 % 3 - 12 % [facility] Phone: Myoglobin [Mass/Vol] 41 ng/mL 28 - 72 ng/mL [employer] Phone: NRBC Automated 0.0 0.0 per 100 WBC [employer] Phone: Platelet distribution width (Bld) [Ratio] 14.0 % 11.8 - 14.4 % [employer] Phone: Platelet Estimate NOT REPORTED [employer] Phone: Platelet mean volume (Bld) [Entitic vol] 11.1 fL 8.1 - 13.5 fL [employer] Phone: Platelets (Bld) [#/Vol] 249 10*3/uL [email or web address] Phone: Potassium [Moles/Vol] 3.7 mmol/L 3.7 - 5.3 mmol/L [employer] Phone: PT Coag (PPP) [Time] 10.7 s [employer] Phone: RBC (Bld) [#/Vol] 4.85 10*6/uL 4.21 - 5.77 m/uL [email or web address] Phone: RBC (Bld) [#/Vol] NOT REPORTED [employer] Phone: Segmented neutrophils/100 WBC (Bld) 62 % 36 - 65 % [employer] Phone: Segs Absolute 6.24 [employer] Phone: Sodium [Moles/Vol] 134 mmol/L Low 135 - 144 mmol/L [employer] Phone: Troponin Interp NOT REPORTED [employer] Phone: Troponin T NOT REPORTED <0.03 ng/mL [employer] Phone: Troponin, High Sensitivity 180 ng/L Critically high 0 - 22 ng/L [email or web address] Phone: Comment on above: High Sensitivity Troponin values cannot be compared with other Troponin methodologies. Patients with high levels of Biotin oral intake (i.e >5mg/day) may have falsely decreased Troponin levels. Samples collected within 8 hours of biotin intake may require additional information for diagnosis. Urea nitrogen (BldV) [Mass/Vol] 18 mg/dL 8 - 23 mg/dL [email or web address] Phone: Urea nitrogen/Creatinine (Bld) [Mass ratio] NOT REPORTED [employer] Phone: WBC (Bld) [#/Vol] 10.0 10*3/uL [email or web address] Phone: WBC (Bld) [#/Vol] NOT REPORTED [email or web address] Phone: [employer] Phone: Sedimentation Rateon 021 Sedimentation Rate 25 mm High 0-20 [facility] Comment on above: Performed By: #### S ED, CRP, STROKE #### [facility] [address] [place], [place] [id number] Welder Explosion: Bowen Lemon MD Stroke Panelon 04-25-2021 % CKMB 4.6 % High 0.0-3.5 [facility] Comment on above: Performed By: #### S ED, CRP, STROKE #### [employer] [facility] [address] [place], [place] [id number] Welder Explosion: Bowen Lemon MD CK-MB,Quantitative 5.0 ng/mL Normal <10.5 [facility] Comment on above: Performed By: #### S ED, CRP, STROKE #### [employer] [facility] [address] [place], [place] [id number] Welder Explosion: Bowen Lemon MD CKMB-Interpretation NORMAL ISOENZYME PATTERN Normal [facility] Comment on above: Performed By: #### S ED, CRP, STROKE #### [email or web address] [address] [place] [address] [id number] Welder Explosion: Bowen Lemon MD (cont.) Normal [facility] Comment on above: Result Comment: Aver age GFR for 60-69 years old: 85 mL/min/1.73sq m Chronic Kidney Disease: <60 mL/min/1.73sq m Kidney failure: <15 mL/min/1.73sq m eGFR calculated using average adult body mass. Additional eGFR calculator available at: http://www.[employer].Localytics/multiple_crcl_2012.htm Performed By: #### S ED, CRP, STROKE #### [facility] [address] [place] [address] [phone] Welder Explosion: Bowen Lemon MD Anion gap [Moles/Vol] 16 mmol/L Normal 9-17 [facility] Comment on above: Performed By: #### S ED, CRP, STROKE #### [facility] [address] [place] [address] 87406 Welder Explosion: Bowen Lemon MD Calcium [Mass/Vol] 9.8 mg/dL Normal 8.6-10.4 [facility] Comment on above: Performed By: #### S ED, CRP, STROKE #### [facility] [address] [place] [address] 65887 Welder Explosion: Bowen Lemon MD Chloride [Moles/Vol] 99 mmol/L Normal 98-107 [facility] Comment on above: Performed By: #### S ED, CRP, STROKE #### [facility] [address] [place] [address] 97136 Welder Explosion: Bowen Lemon MD CK [Catalytic activity/Vol] 108 U/L Normal 39-308 [facility] Comment on above: Performed By: #### S ED, CRP, STROKE #### [facility] [place] [address] Welder Explosion: Bowen Lemon MD CO2 [Moles/Vol] 19 mmol/L Low 20-31 [facility] Comment on above: Performed By: #### S ED, CRP, STROKE #### [facility] [address] [place] [address] 46445 Welder Explosion: Bowen Lemon MD Creatinine [Mass/Vol] 0.82 mg/dL Normal 0.70-1.20 [facility] Comment on above: Performed By: #### S ED, CRP, STROKE #### [facility] [address] [place] [address] 30985 Welder Explosion: Bowen Lemon MD GFR, Amer >60 Normal >60 [facility] Comment on above: Performed By: #### S ED, CRP, STROKE #### [facility] [address] [place] [address] 21486 Welder Explosion: Bowen Lemon MD GFR,non Amer >60 Normal >60 [facility] Comment on above: Performed By: #### S ED, CRP, STROKE #### [facility] [address] [place] [address] 11620 Welder Explosion: Bowen Lemon MD Glucose [Mass/Vol] 130 mg/dL High 70-99 [facility] Comment on above: Performed By: #### S ED, CRP, STROKE #### [facility] [address] [place] [address] 26568 Welder Explosion: Bowen Lemon MD Potassium [Moles/Vol] 3.7 mmol/L Normal 3.7-5.3 [facility] Comment on above: Performed By: #### S ED, CRP, STROKE #### [facility] [address] [place] [address] 21939 Welder Explosion: Bowen Lemon MD Sodium [Moles/Vol] 134 mmol/L Low 135-144 [facility] Comment on above: Performed By: #### S ED, CRP, STROKE #### [facility] [address] [place] [address] 89119 Welder Explosion: Bowen Lemon MD Urea nitrogen [Mass/Vol] 18 mg/dL Normal 8-23 [facility] Comment on above: Performed By: #### S ED, CRP, STROKE #### [facility] [address] [place] [address] 36759 Welder Explosion: Bowen Lemon MD Myoglobin [Mass/Vol] 41 ng/mL Normal 28-72 [facility] Comment on above: Performed By: #### S ED CRP, STROKE #### [address] [address] Welder Explosion: Bowen Lemon MD Troponin, High Sens 180 ng/L Critically high 0-22 [facility] Comment on above: Result Comment: High Sensitivity Troponin values cannot be compared with other Troponin methodologies. Patients with high levels of Biotin oral intake (i.e >5mg/day) may have falsely decreased Troponin levels. Samples collected within 8 hours of biotin intake may require additional information for diagnosis. Performed By: #### S SHANNAN MCKNIGHT, STROKE #### [address] [address] Welder Explosion: Bowen Lemon MD INR Coag (PPP) [Relative time] 1.0 {INR} Normal [facility] Comment on above: Result Comment: Therapeutic Range: Moderate Anticoagulant Intensity: INR = 2.0-3.0 High Anticoagulant Intensity: INR = 2.5-3.5 Performed By: #### S ROXANNA CRP, STROKE #### [facility] [employer] [address] [place] [address] 53779 Welder Explosion: Bowen Lemon MD PT Coag (PPP) [Time] 10.7 s Normal 9.1-12.3 [facility] Comment on above: Performed By: #### S ED CRP, STROKE #### [facility] [employer] [address] [place] [address] 38259 Welder Explosion: Bowen Lemon MD aPTT Coag (Bld) [Time] 23.4 s Normal 20.5-30.5 [facility] Comment on above: Result Comment: IV Heparin Therapy Range: 48.6-77.8 Performed By: #### S ED CRP, STROKE #### [facility] [employer] [address] [place] [address] 36560 Welder Explosion: Bowen Lemon MD Abs. Basophil 0.05 k/uL Normal 0.00-0.20 [facility] Comment on above: Performed By: #### S ED, CRP, STROKE #### [address] [address] Welder Explosion: Bowen Lemon MD Abs.Imm.Granulocyte 0.04 k/uL Normal 0.00-0.30 [facility] Comment on above: Performed By: #### S ED, CRP, STROKE #### [address] [address] Welder Explosion: Bowen Lemon MD Abs.Neutrophil (Seg) 6.24 k/uL Normal 1.50-8.10 [facility] Comment on above: Performed By: #### S ED, CRP, STROKE #### [address] [address] Welder Explosion: Bowen Lemon MD Basophils/100 WBC (Bld) 1 % Normal 0-2 [facility] Comment on above: Performed By: #### S ED, CRP, STROKE #### [address] [address] Welder Explosion: Bowen Lemon MD Eosinophils (Bld) [#/Vol] 0.07 10*3/uL Normal 0.00-0.44 [facility] Comment on above: Performed By: #### S ED, CRP, STROKE #### [address] [address] Welder Explosion: Bowen Lemon MD Eosinophils/100 WBC (Bld) 1 % Normal 1-4 [facility] Comment on above: Performed By: #### S ED, CRP, STROKE #### [facility] [employer] [address] [place] [address] 60181 Welder Explosion: Bowen Lemon MD Erythrocyte distribution width (RBC) [Ratio] 14.0 % Normal 11.8-14.4 [facility] Comment on above: Performed By: #### S ED, CRP, STROKE #### [address] [address] Welder Explosion: Bowen Lemon MD Hematocrit (Bld) [Volume fraction] 44.0 % Normal 40.7-50.3 [facility] Comment on above: Performed By: #### S ED, CRP, STROKE #### [facility] [employer] [address] [place] [address] 65080 Welder Explosion: Bowen Lemon MD Hemoglobin (Bld) [Mass/Vol] 14.5 g/dL Normal 13.0-17.0 [facility] Comment on above: Performed By: #### S ED, CRP, STROKE #### [address] [address] Welder Explosion: Bowen Lemon MD Immature granulocytes/100 WBC (Bld) 0 % Normal 0 [facility] Comment on above: Performed By: #### S ED, CRP, STROKE #### [address] [address] Welder Explosion: Bowen Lemon MD Lymphocytes (Bld) [#/Vol] 2.89 10*3/uL Normal 1.10-3.70 [facility] Comment on above: Performed By: #### S ED, CRP, STROKE #### [facility] [employer] [address] [place] [address] 73845 Welder Explosion: Bowen Lemon MD Lymphocytes/100 WBC (Bld) 29 % Normal 24-43 [facility] Comment on above: Performed By: #### S ED, CRP, STROKE #### [facility] [employer] [address] [place] [address] 06380 Welder Explosion: Bowen eLmon MD MCH (RBC) [Entitic mass] 29.9 pg Normal 25.2-33.5 [facility] Comment on above: Performed By: #### S ED, CRP, STROKE #### [address] [address] Welder Explosion: Bowen Lemon MD MCHC (RBC) [Mass/Vol] 33.0 g/dL Normal 28.4-34.8 [facility] Comment on above: Performed By: #### S ED, CRP, STROKE #### [address] [address] Welder Explosion: Bowen Lemon MD MCV (RBC) [Entitic vol] 90.7 fL Normal 82.6-102.9 [facility] Comment on above: Performed By: #### S ED, CRP, STROKE #### [address] [address] Welder Explosion: Bowen Lemon MD Monocytes (Bld) [#/Vol] 0.72 10*3/uL Normal 0.10-1.20 [facility] Comment on above: Performed By: #### S ED, CRP, STROKE #### [address] [address] Welder Explosion: Bowen Lemon MD Monocytes/100 WBC (Bld) 7 % Normal 3-12 [facility] Comment on above: Performed By: #### S ED, CRP, STROKE #### [address] [address] Welder Explosion: Bowen Lemon MD Neutrophil (Seg) 62 % Normal 36-65 [facility] Comment on above: Performed By: #### S ED, CRP, STROKE #### [address] [address] Welder Explosion: Bowen Lemon MD NRBC Automated 0.0 per 100 WBC Normal 0.0 [facility] Comment on above: Performed By: #### S ED, CRP, STROKE #### [facility] [address] [place] [address] 36063 Welder Explosion: Bowen Lemon MD Platelet mean volume (Bld) [Entitic vol] 11.1 fL Normal 8.1-13.5 [facility] Comment on above: Performed By: #### S ED, CRP, STROKE #### [facility] [address] [place] [address] 11815 Welder Explosion: Bowen Lemon MD Platelets (Bld) [#/Vol] 249 10*3/uL Normal 138-453 [facility] Comment on above: Performed By: #### S ED, CRP, STROKE #### [address] [address] Welder Explosion: Bowen Lemon MD RBC (Bld) [#/Vol] 4.85 10*6/uL Normal 4.21-5.77 [facility] Comment on above: Performed By: #### S ED, CRP, STROKE #### [address] [address] Welder Explosion: Bowen Lemon MD WBC (Bld) [#/Vol] 10.0 10*3/uL Normal 3.5-11.3 [facility] Comment on above: Performed By: #### S ED, CRP, STROKE #### [facility] [employer] [address] [place] [address] 75740 Welder Explosion: Bowen eLmon MD Auto Diff Performed NOT REPORTED Normal [facility] Comment on above: Performed By: #### S ED, CRP, STROKE #### [facility] [employer] [address] [place] [address] 03405 Welder Explosion: Bowen Lemon MD BUN/CRE Ratio NOT REPORTED Normal 9-20 [facility] Comment on above: Performed By: #### S ED, CRP, STROKE #### [place] [id number] [place] [address] Welder Explosion: Bowen Lemon MD Platelet Estimate NOT REPORTED Normal [facility] Comment on above: Performed By: #### S ED, CRP, STROKE #### [facility] [address] [place] [address] Welder Explosion: Bowen Lemon MD RBC morphology finding Nom (Bld) NOT REPORTED Normal [facility] Comment on above: Performed By: #### S ED, CRP, STROKE #### [facility] [address] [place] [address] 90052 Welder Explosion: Bowen Lemon MD Staging: NOT REPORTED Normal [facility] Comment on above: Performed By: #### S ED, CRP, STROKE #### [facility] [address] [place] [address] 53685 Welder Explosion: Bowen Lemon MD Troponin Interp. NOT REPORTED Normal [facility] Comment on above: Performed By: #### S ED, CRP, STROKE #### [facility] [address] [place] [address] 61452 Welder Explosion: Bowen Lemon MD Troponin T NOT REPORTED Normal <0.03 [facility] Comment on above: Performed By: #### S ED, CRP, STROKE #### [facility] [address] [place] [address] 29598 Welder Explosion: Bowen Lemon MD WBC Morphology NOT REPORTED Normal [facility] Comment on above: Performed By: #### S ED, CRP, STROKE #### [address] [address] Welder Explosion: Bowen Lemon MD TSH w/reflex to FT4on 2020 TSH Qn 1.04 m[IU]/L Normal 0.30-5.00 [facility] Comment on above: Performed By: #### T SHX, TROPI ####[address] [place] [address] Lab Director: Bowen Lemon MD TSH with ReflexOrdered By: Milton Osborn on 04-25-2021 TSH Qn 1.04 m[IU]/L [facility] [employer] Phone: [facility] Phone: Troponinon 04-25-2021 Troponin, High Sens 187 ng/L Critically high 0-22 [facility] Comment on above: Result Comment: High Sensitivity Troponin values cannot be compared with other Troponin methodologies. Patients with high levels of Biotin oral intake (i.e >5mg/day) may have falsely decreased Troponin levels. Samples collected within 8 hours of biotin intake may require additional information for diagnosis. Previous Alert Value Reported Performed By: #### T SHX, TROPI ####[address] [place] [address] Lab Director: Bowen Lemon MD Troponin Interp. NOT REPORTED Normal [facility] Comment on above: Performed By: #### T SHX, TROPI ####[address] [place] [address] Lab Director: Bowen Lemon MD Troponin T NOT REPORTED Normal <0.03 [facility] Comment on above: Performed By: #### T SHX, TROPI ####[employer] [address] [place] [address] Lab Director: Bowen Lemon MD Troponin, High Sens 175 ng/L Critically high 0-22 [facility] Comment on above: Result Comment: High Sensitivity Troponin values cannot be compared with other Troponin methodologies. Patients with high levels of Biotin oral intake (i.e >5mg/day) may have falsely decreased Troponin levels. Samples collected within 8 hours of biotin intake may require additional information for diagnosis. Performed By: #### T ROPI #### [facility] [address] [place] [address] Welder Explosion: Bowen Lemon MD Troponin Interp. NOT REPORTED Normal [facility] Comment on above: Performed By: #### T ROPI #### [facility] [address] [place], [place] [id number] Welder Explosion: Bowen Lemon MD Troponin T NOT REPORTED Normal <0.03 [facility] Comment on above: Performed By: #### T ROPI #### [facility] [address] [place], [place] [id number] Welder Explosion: Bowen Lemon MD TroponinOrdered By: Jarek mar on 04-25-2021 Interpretation and review of laboratory results Abnormal [email or web address] Phone: Troponin Interp NOT REPORTED [email or web address] Phone: Troponin T NOT REPORTED <0.03 ng/mL [email or web address] Phone: Troponin, High Sensitivity 187 ng/L Critically high 0 - 22 ng/L [email or web address] Phone: Comment on above: High Sensitivity Troponin values cannot be compared with other Troponin methodologies. Patients with high levels of Biotin oral intake (i.e >5mg/day) may have falsely decreased Troponin levels. Samples collected within 8 hours of biotin intake may require additional information for diagnosis. Previous Alert Value Reported [email or web address] Phone: TroponinOrdered By: Anali orellana on 04-25-2021 Interpretation and review of laboratory results Abnormal [email or web address] Phone: Troponin Interp NOT REPORTED [email or web address] Phone: Troponin T NOT REPORTED <0.03 ng/mL [email or web address] Phone: Troponin, High Sensitivity 175 ng/L Critically high 0 - 22 ng/L [email or web address] Phone: Comment on above: High Sensitivity Troponin values cannot be compared with other Troponin methodologies. Patients with high levels of Biotin oral intake (i.e >5mg/day) may have falsely decreased Troponin levels. Samples collected within 8 hours of biotin intake may require additional information for diagnosis. [email or web address] Phone: Urinalysis Reflex to Culture Ordered By: Jarek Osborn on 04-25-2021 Bilirubin Urine Negative NEGATIVE [email or web address] Phone: Color, UA YELLOW YELLOW [email or web address] Phone: [phone] Glucose, Ur 1+ Abnormal NEGATIVE [email or web address] Phone: Interpretation and review of laboratory results Abnormal [email or web address] Phone: Ketones Ql (U) TRACE Abnormal NEGATIVE [email or web address] Phone: Leukocyte esterase Test strip Ql (U) Negative NEGATIVE [email or web address] Phone: Nitrite, Urine Negative NEGATIVE [email or web address] Phone: pH, UA 7.0 [email or web address] Phone: Protein, UA 2+ Abnormal NEGATIVE [email or web address] Phone: Specific [place], UA 1.012 [employer] Phone: Turbidity UA CLEAR CLEAR [email or web address] Phone: Urinalysis Comments NOT REPORTED [facility] [employer] Phone: Urine Hgb TRACE Abnormal NEGATIVE [email or web address] Phone: Urobilinogen, Urine Normal Normal [email or web address] Phone: [email or web address] Phone: VITAMIN B12 & FOLATEOrdered By: Sabrina Aguiar on 04-25-2021 Folate 15.2 ng/mL >4.8 [email or web address] Phone: [phone] [email or web address] Phone: XR CHEST PORTABLEon 04-25-20 XR CHEST [...] Marino Abdi DO 04/24/21 Final result Normal [facility] XR SHOULDER LEFT (MIN 2 VIEW [...] Marino Abdi DO 04/24/21 Final result Normal [facility] CALCIUM, IONIC (POC)Ordered By: Kranthi Ruvalcaba on 04-24-2021 POC Ionized Calcium 1.30 mmol/L 1.15 - 1.33 mmol/L [email or web address] Phone: CT CERVICAL SPINE WO CONTRAS TOrdered By: Kranthi Ruvalcaba on 04-24-2021 1. No acute abnormal ity of the cervical spine. 2. C5/C6 moderate, C6/C7 mild central canal stenosis secondary to encroachment by disc osteophyte complex. 3. C3/C4 mild bilateral, C5/C6 moderate bilateral, C6/C7 severe left and moderate right neural foraminal stenosis secondary to encroachment by disc osteophyte complex. [email or web address] Phone: EXAMINATION: CT OF T HE CERVICAL [...] of significant central canal stenosis/compromise identified. Multilevel [id number] facet degenerative hypertrophy is seen. C3/C4 mild bilateral neural foraminal stenosis secondary to encroachment by disc osteophyte complex is seen. SOFT TISSUES: There is no prevertebral soft tissue swelling. [employer] Phone: [facility], pn Incoming R adiant Results From QA on Request/[employer] - 04/24/2021 11:44 PM EDT EXAMINATION: CT [...] of significant central canal stenosis/compromise identified. Multilevel [id number] facet degenerative hypertrophy is seen. C3/C4 mild [...] secondary to encroachment by disc osteophyte complex. [email or web address] Phone: [email or web address] Phone: CT HEAD WO CONTRASTOrdered B y: Kranthi Ruvalcaba on 04-24-2021 No evidence for acut e intracranial hemorrhage, territorial infarction or intracranial mass lesion. Chronic lacunar infarction right pacheco radiata. Mild chronic microangiopathic ischemic disease. Mild generalized volume loss. [email or web address] Phone: EXAMINATION: CT OF T HE HEAD [...] cells are unremarkable. No fracture is identified. [employer] Work Phone: [facility], [facility] Incoming R adiant Results From QA on Request/[employer] - 04/24/2021 10:25 PM EDT EXAMINATION: CT [...] microangiopathic ischemic disease. Mild generalized volume loss. [email or web address] Phone: [email or web address] Phone: CTA HEAD NECK W CONTRASTOrde red [...] brain with diffusion-weighted imaging for further evaluation [email or web address] Phone: EXAMINATION: CTA OF THE HEAD AND [...] radiata remote lacunar infarct is again seen. [employer] Work Phone: [facility], [facility] Incoming R adiant Results From QA on Request/[employer] - 04/24/2021 10:51 PM EDT EXAMINATION: CTA [...] brain with diffusion-weighted imaging for further evaluation [email or web address] Phone: [email or web address] Phone: Creatinine W/GFR Point of Ca reOrdered By: Kranthi Ruvalcaba on 04-24-2021 Creatinine [Mass/Vol] 0.78 mg/dL 0.51 - 1.19 mg/dL [email or web address] Phone: GFR Non- >60 >60 mL/min [email or web address] Phone: GFR/1.73 sq M.predicted MDRD (S/P/Bld) [Vol rate/Area] mL/min/{1.73_m2} >60 mL/min [email or web address] Phone: GFR/1.73 sq M.predicted MDRD (S/P/Bld) [Vol rate/Area] [email or web address] Phone: Comment on above: Average GFR for 60-6 9 years old: 85 mL/min/1.73sq m Chronic Kidney Disease: <60 mL/min/1.73sq m Kidney failure: <15 mL/min/1.73sq m eGFR calculated using average adult body mass. Additional eGFR calculator available at: http://www.[employer]/multiple_crcl_2012.htm ELECTROLYTES PLUSOrdered By: Kranthi Ruvalcaba on 04-24-2021 Anion gap [Moles/Vol] 10 mmol/L 7 - 16 mmol/L [email or web address] Phone: Chloride [Moles/Vol] 103 mmol/L 98 - 10 7 mmol/L [email or web address] Phone: CO2 [Moles/Vol] 26 mmol/L 22 - 30 mmol/L [email or web address] Phone: Potassium [Moles/Vol] 3.5 mmol/L 3.5 - 4.5 mmol/L [email or web address] Phone: Sodium [Moles/Vol] 138 mmol/L 138 - 146 mmol/L [email or web address] Phone: Hemoglobin and hematocrit, b loodOrdered By: Kranthi Ruvalcaba on 04-24-2021 Hematocrit (Bld) [Volume fraction] 46 % 41 - 53 % [email or web address] Phone: Hemoglobin (Bld) [Mass/Vol] 15.5 g/dL 13.5 - 17.5 g/dL [email or web address] Phone: Lactic Acid, POCOrdered By: Kranthi Ruvalcaba on 04-24-2021 POC Lactic Acid 2.14 mmol/L High 0.56 - 1.39 mmol/L [email or web address] Phone: No Panel InformationOrdered By: Kranthi Ruvalcaba on 04-24-2021 Interpretation and review of laboratory results Abnormal [email or web address] Phone: [email or web address] Phone: POCT GlucoseOrdered By: Tuan Ruvalcaba on 04-24-2021 Glucose [Mass/Vol] 140 mg/dL High 74 - 100 mg/dL [email or web address] Phone: POCT urea (BUN)Ordered By: Kamari Ruvalcaba on 04-24-2021 Urea nitrogen [Mass/Vol] 17 mg/dL 8 - 26 mg/dL [email or web address] Phone: Sedimentation RateOrdered By : Kranthi Ruvalcaba on 04-24-2021 Interpretation and review of laboratory results Abnormal [email or web address] Phone: Sed Rate 25 mm High 0 - 20 mm [email or web address] Phone: [email or web address] Phone: Venous Blood Gas, POCOrdered By: Kranthi Ruvalcaba on 04-24-2021 Irving Test NOT REPORTED [email or web address] Phone: FIO2 NOT REPORTED [email or web address] Phone: HCO3 (Bld) [Moles/Vol] 25.1 mmol/L 22.0 - 29.0 mmol/L [email or web address] Phone: Mode NOT REPORTED [email or web address] Phone: Negative Base Excess, Marquis NOT REPORTED [email or web address] Phone: O2 Device/Flow/% NOT REPORTED [email or web address] Phone: Oxygen saturation in Blood 81 % 60.0 - 85.0 % [email or web address] Phone: pCO2, Marquis 41.0 [email or web address] Phone: pH, Marquis 7.396 [email or web address] Phone: pO2, Marquis 45.1 [email or web address] Phone: [phone] POC pCO2 Temp NOT REPORTED mm Hg [email or web address] Phone: POC pH Temp NOT REPORTED [email or web address] Phone: POC pO2 Temp NOT REPORTED mm Hg [email or web address] Phone: Positive Base Excess, Marquis 0 [email or web address] Phone: Pt Temp NOT REPORTED [email or web address] Phone: Sample Site NOT REPORTED [email or web address] Phone: Total CO2, Venous NOT REPORTED 23.0 - 30.0 mmol/L [email or web address] Phone: XR CHEST PORTABLEOrdered By: Kranthi Ruvalcaba on 04-24-2021 Marginal inspiration , without evidence of acute cardiopulmonary disease [email or web address] Phone: EXAMINATION: ONE XRA Y VIEW OF [...] and vascular ectasia. Osseous structures appear intact. [email or web address] Phone: [facility], [facility] Incoming R [employer]iant Results From QA on Request/[employer] - 04/24/2021 11:43 PM EDT EXAMINATION: ONE [...] inspiration, without evidence of acute cardiopulmonary disease [email or web address] Phone: [email or web address] Phone: XR SHOULDER LEFT (MIN 2 VIEW S)Ordered By: Anali Oreilly on 04-24-2021 No evidence of an ac ely shoshone fracture involving the left shoulder [email or web address] Phone: EXAMINATION: TWO XRA Y VIEWS OF [...] is intact. Visualized left ribs appear normal. [email or web address] Phone: [facility], [facility] Incoming R [employer]iant Results From QA on Request/[employer] - 04/24/2021 11:45 PM EDT EXAMINATION: TWO [...] an acute fracture involving the left shoulder [email or web address] Phone: [email or web address] Phone: Miscel, Refrigeratedon 05-15 Send Out Report SEE NOTE Normal [facility] Comment on above: Result Comment: (NOT [...] (previously designated C677T) and c.1286A>C (previously designated [id number]) were detected. This genotype may be associated [...] has an effect on cardiovascular disease. The [employer] Practice Guidelines indicate [...] a contributing factor to hyperhomocysteinemia. Variants Tested: c.665C>T(p.Thq131Mcr) and c.1286A>C(p.[id number]). (legacy names C677T and [id number], respectively). Clinical Sensitivity: Undefined; hyperhomocysteinemia is caused by genetic, physiologic and environmental factors. MTHFR variants are only one contributing factor. Methodology: Polymerase chain reaction (PCR) and fluorescence monitoring. Analytical Sensitivity AND Specificity: 99 percent. Limitations: Only two MTHFR gene variants (c.665C>T and c.1286A>C) are tested. Diagnostic errors can occur due to rare sequence variations. Test developed and characteristics determined by [facility]. See Compliance Statement C: [facility]/CS Performed by [facility], [address] [place] [id number] www.[email or web address], Kristopher Kerr MD, Lab. Director Performed By: #### C , [facility] ####[facility] Elx[address] [place] [address] Lab Director: Shreyas Crain DO#### HOCYS, GLYHGB, B12FOL, FA7, FA8, AT3A ####[address] [address] Lab Director: Bowen Lemon MD#### ALPLA, AAPCR, APRTSF, AB2GLY, APROTC, ADYSF, AAPDSR ####[facility] [address] [place] [address] [phone] Lab Director: Kristopher Kerr MD#### LUPPRO ####[facility] L[address] [place] [address] [phone] Director: Shreyas Crain DOMercy [address] [address] Lab Director: Bowen Lemon MD#### MISCR ####[address] [address] Lab Director: RADHA Delgado [address] [phone] Lab Director: Kristopher Kerr MD Antithrombin III Ridgely 05-13 Antithrombin III Act 78 % Low 83-122 [facility] Comment on above: Result Comment: Patients receiving Hirudin may have a falsely decreased Antitrombin III Activity. Performed By: #### C RP, TSHX ####[facility] Qha1224 [place], [place] [phone] Director: Shreyas Crain DO#### HOCYS, GLYHGB, B12FOL, FA7, FA8, AT3A ####[address] [address] Lab Director: Bowen Lemon MD#### ALPLA, AAPCR, APRTSF, AB2GLY, APROTC, ADYSF, AAPDSR ####[facility] Inhacepryfzd161 [place] [address] Lab Director: Kristopher Kerr MD#### LUPPRO ####[address] [address] Lab Director: Shreyas Crain DOMercy [address] [address] Lab Director: Bowen Lemon MD#### MISCR ####[address] [address] Lab Director: RADHA Delgado [address] [address] Lab Director: Kristopher Kerr MD Factor VII Activityon 2019 Factor VII Activity 253 % High 50-150 [facility] Comment on above: Performed By: #### C RP, TSHX ####[address] [address] Lab Director: Shreyas Crain DO#### HOCYS, GLYHGB, B12FOL, FA7, FA8, AT3A ####[address] [address] Lab Director: Bowen Lemon MD#### ALPLA, AAPCR, APRTSF, AB2GLY, APROTC, ADYSF, AAPDSR ####[facility] [address] [place] [address] Lab Director: Kristopher Kerr MD#### LUPPRO ####[facility] Noh[address] [place] [address] Lab Director: Shreyas Crain DOMercy [address] [address] Lab Director: Bowen Lemon MD#### MISCR ####[address] [address] Lab Director: RADHA Delgado C[address]vii[address] [place] [address] [phone] Lab Director: Kristopher Kerr MD Factor VIII Activityon 05-13 Factor VIII Activity 73 % Normal 50-150 [facility] Comment on above: Performed By: #### C RP, TSHX ####[facility] Gsr7587 [facility], [place] [phone] Director: Shreyas Crain DO#### HOCYS, GLYHGB, B12FOL, FA7, FA8, AT3A ####[address] [address] Lab Director: Bowen Lemon MD#### ALPLA, AAPCR, APRTSF, AB2GLY, APROTC, ADYSF, AAPDSR ####[facility] [address] [place] [address] [phone] Lab Director: Kristopher Kerr MD#### LUPPRO ####[facility] Uwo5629 [place], [place] [phone] Director: Shreyas Crain DOMercy [address] [address] Lab Director: Bowen Lemon MD#### MISCR ####[address] [address] Lab Director: RADHA Delgado D[address]wo[address] [place] [address] Lab Director: Kristopher Kerr MD Lupus Anticoagulanton 2019 Dilute Akil Viper Negative Normal NLUP [facility] Comment on above: Performed By: #### C RP, TSHX ####[facility] Tjp0618 [facility], [place] [phone] Director: Shreyas Crain DO#### HOCYS, GLYHGB, B12FOL, FA7, FA8, AT3A ####[address] [address] Lab Director: Bowen Lemon MD#### ALPLA, AAPCR, APRTSF, AB2GLY, APROTC, ADYSF, AAPDSR ####[facility] Shw[address] [place] [address] Lab Director: Kristopher Kerr MD#### LUPPRO ####[facility] Gmx1038 [place], [place] [phone] Director: Shreyas Crain DOMercy [address] [address] Lab Director: Bowen Lemon MD#### MISCR ####[address] [address] Lab Director: RADHA Delgado [address] [address] Lab Director: Kristopher Kerr MD Abdh-Ynum-Vwyegnsp 05-11-202 0 Phosphatidylser, IgA 3 U/mL Normal 0-19 [facility] Comment on above: Result Comment: (NOT E) Performed By: [address] [address] Coffee Host: Kristopher Kerr MD, [place] Performed By: #### C RP, TSHX ####[facility] Aio5661 [place], [place] [phone] Director: Shreyas Crain DO#### HOCYS, GLYHGB, B12FOL, FA7, FA8, AT3A ####[address] [address] Lab Director: Bowen Lemon MD#### ALPLA, AAPCR, APRTSF, AB2GLY, APROTC, ADYSF, AAPDSR ####[facility] Phky[address] [place] [address] Lab Director: Kristopher Kerr MD#### LUPPRO ####[facility] Lax8763 [place] [address] Lab Director: Shreyas Crain DOMercy [address] [address] Lab Director: Bowen Lemon MD#### MISCR ####[address] [address] Lab Director: RADHA Delgado [address] [phone] Lab Director: Kristopher Kerr MD Phosphatidylser, IgG 5 U/mL Normal 0-10 [facility] Comment on above: Result Comment: (NOT E) [...] tests. Performed By: #### C RP, TSHX ####[facility] Twf0325 [place] [address] Lab Director: Shreyas Crain DO#### HOCYS, GLYHGB, B12FOL, FA7, FA8, AT3A ####[address] [address] Lab Director: Bowen Lemon MD#### ALPLA, AAPCR, APRTSF, AB2GLY, APROTC, ADYSF, AAPDSR ####[facility] Ps[address]loasqevj080 [place] [address] Lab Director: Kristopher Kerr MD#### LUPPRO ####[facility] Tnh1693 [facility] [place] [address] Lab Director: Shreyas Crain DOMercy Zgcqqfaaksad7752 [place] [address] Lab Director: Bowen Lemon MD#### MISCR ####[address] [address] Lab Director: RADHA Delgado Gsvvhcxyfyhs489 [place] [address] Lab Director: Kristopher Kerr MD Phosphatidylser, IgM 6 U/mL Normal 0-24 [facility] Comment on above: Result Comment: (NOT E) [...] tests. Performed By: #### C RP, TSHX ####[facility] Nvy9468 [facility] [place] [address] Lab Director: Shreyas Crain DO#### HOCYS, GLYHGB, B12FOL, FA7, FA8, AT3A ####[place] [place] [address] Lab Director: Bowen Lemon MD#### ALPLA, AAPCR, APRTSF, AB2GLY, APROTC, ADYSF, AAPDSR ####[facility] Kddjutvepsam728 [place] [address] Lab Director: Kristopher Kerr MD#### LUPPRO ####[facility] Z[address] [place] [address] [phone] Director: Shreyas Crain DOMercy [address] [place] [address] Lab Director: Bowen Lemon MD#### MISCR ####[address] [address] Lab Director: RADHA Delgado [address] [phone] Lab Director: Kristopher Kerr MD Fibrinogen Panelon 0 Fibrinogen 394 mg/dL Normal 150-430 [facility] Comment on above: Performed By: #### C RP, TSHX ####[address] [address] Lab Director: Shreyas Crain DO#### HOCYS, GLYHGB, B12FOL, FA7, FA8, AT3A ####[address] [address] Lab Director: Bowen Lemon MD#### ALPLA, AAPCR, APRTSF, AB2GLY, APROTC, ADYSF, AAPDSR ####[facility] Igwxvprnuzht259 [place] [address] Lab Director: Kristopher Kerr MD#### LUPPRO ####[address] [phone] Director: Shreyas Crain DOMercy [address] [address] Lab Director: Bowen Lemon MD#### MISCR ####[address] [place] [address] Lab Director: RADHA Delgado N[address] [place] [address] [phone] Lab Director: Kristopher Kerr MD Fibrinogen Antigen 347 mg/dL Normal 149-353 [facility] Comment on above: Performed By: #### C RP, TSHX ####[facility] Tbl1994 [place] [address] Lab Director: Shreyas Crain DO#### HOCYS, GLYHGB, B12FOL, FA7, FA8, AT3A ####[address] [address] Lab Director: Bowen Lemon MD#### ALPLA, AAPCR, APRTSF, AB2GLY, APROTC, ADYSF, AAPDSR ####[facility] R[address] [place] [address] Lab Director: Kristopher Kerr MD#### LUPPRO ####[facility] Jsa0995 [place] [address] Lab Director: Shreyas Crain DOMercy [address] [place] [address] Lab Director: Bowen Lemon MD#### MISCR ####[address] [address] Lab Director: RADHA Delgado [address] [address] Lab Director: Kristopher Kerr MD Fibrinogen Ratio 0.88 ratio Normal 0.59-1.23 [facility] Comment on above: Result Comment: (NOT E) INTERPRETIVE INFORMATION: Fibrinogen Antigen/Functional Ratio A ratio of greater than 1.23 is suggestive of a dysfibrogenemia. Performed by [facility], [address] [place] [address] [phone] www.Elle[facility], Kristopher Kerr MD, Lab. Director Performed By: #### C RP, TSHX ####[facility] Nhk6849 [facility] [place] [address] Lab Director: Shreyas Crain DO#### HOCYS, GLYHGB, B12FOL, FA7, FA8, AT3A ####[address] [address] Lab Director: Bowen Lemon MD#### ALPLA, AAPCR, APRTSF, AB2GLY, APROTC, ADYSF, AAPDSR ####[facility] [address] [place] [address] [phone] [facility] Director: Kristopher Kerr MD#### LUPPRO ####[facility] Rtg0903 [place] [address] [facility] Director: Shreyas Crain DOMercy [address] [address] Lab Director: Bowen Lemon MD#### MISCR ####[address] [address] Lab Director: RADHA Delgado [address] [address] [facility] Director: Kristopher Kerr MD Protein C Antigenicon 2019 Protein [Mass/Vol] g/dL Normal 63-153 [facility] Comment on above: Result Comment: (NOT E) INTERPRETIVE INFORMATION: Protein C, Total Antigen Patients on warfarin may have decreased protein C values. Patients should be off warfarin therapy for two weeks for accurate measurement of protein C. Access complete set of age- and/or gender-specific reference intervals for this test in the [facility] Test Directory ([facility]le[facility]). Performed by [facility], [address] [place] [address] [phone] www.[email or web address], Kristopher Kerr MD, Lab. Director Performed By: #### C RP, TSHX ####[facility] Fit6216 [facility] [place] [address] Lab Director: Shreyas Crain DO#### HOCYS, GLYHGB, B12FOL, FA7, FA8, AT3A ####[address] [address] Lab Director: Bowen Lemon MD#### ALPLA, AAPCR, APRTSF, AB2GLY, APROTC, ADYSF, AAPDSR ####[facility] [address] [place] [address] [phone] Lab Director: Kristopher Kerr MD#### LUPPRO ####[facility] Svp6000 [facility] [place] [address] Lab Director: Shreyas Crain DOMercy [address] [address] Lab Director: Bowen Lemon MD#### MISCR ####[address] [address] Lab Director: RADHA Delgado [address] [address] Lab Director: Kristopher Kerr MD ACT Protein C Resiston 05-10 Protein [Mass/Vol] 3.80 g/dL Normal >=2.00 [facility] Comment on above: Result Comment: (NOT E) TEST INTERPRETATION: APC Resistance Profile Ratios less than 2.00 suggest APC resistance. This method uses factor V deficient plasma; therefore, APC resistance due to a nonfactor V mutation will not be detected. Extreme factor V deficiency may cause abnormal ratio. Performed by [facility], [address] [place] [address] [phone] www.[email or web address], Kristopher Kerr MD, Lab. Director Performed By: #### C RP, TSHX #### [facility] Lab [address] [place] [address] Welder Explosion: Shreyas Crain DO #### HOCYS, GLYHGB, B12FOL, FA7, FA8, AT3A #### [address] [address] Welder Explosion: Bowen Lemon MD #### ALPLA, AAPCR, APRTSF, AB2GLY, APROTC, ADYSF, AAPDSR #### [facility] [address] [place] [address] Welder Explosion: Kristopher Kerr MD #### LUPPRO #### [facility] [address] [place] [address] Welder Explosion: Shreyas Crain DO [address] [address] Welder Explosion: Bowen Lemon MD #### MISCR #### [address] [address] Welder Explosion: Bowen Lemon MD [address] [phone] Welder Explosion: Kristopher Kerr MD Vhud-3-rwcpmxybm Abon 2019 B2 Glycoprot I, IgG 2 SGU Normal 0-20 [facility] Comment on above: Performed By: #### C RP, TSHX ####[facility] Qmd4970 [place] [address] Lab Director: Shreyas Crain DO#### HOCYS, GLYHGB, B12FOL, FA7, FA8, AT3A ####[address] [address] Lab Director: Bowen Lemon MD#### ALPLA, AAPCR, APRTSF, AB2GLY, APROTC, ADYSF, AAPDSR ####[facility] Nsuzdmddrgxh784 [place], [place] [phone] Lab Director: Kristopher Kerr MD#### LUPPRO ####[facility] Czm0017 [facility] [place] [address] Lab Director: Shreyas Crain DOMercy Wwdlnlgaliac9988 [place] [address] Lab Director: Bowen Lemon MD#### MISCR ####[facility] [place] [address] Lab Director: RADHA Delgado [address] [phone] lab Director: Kristopher Kerr MD B2 Glycoprot I, IgM 1 SMU Normal 0-20 [facility] Comment on above: Result Comment: (NOT E) INTERPRETIVE INFORMATION: H6Ukrwocptfamv I, IgG and IgM Antibody The persistent [...] other criteria phospholipid antibody tests. Performed By: [facility] [address] [place] [address] Coffee Host: Kristopher Kerr MD, [place] Performed By: #### C RP, TSHX ####[facility] Vtq5689 [facility] [place] [address] Lab Director: Shreyas Crain DO#### HOCYS, GLYHGB, B12FOL, FA7, FA8, AT3A ####[address] [address] Lab Director: Bowen Lemon MD#### ALPLA, AAPCR, APRTSF, AB2GLY, APROTC, ADYSF, AAPDSR ####[facility] [address] [place] [address] [id number] Lab Director: Kristopher Kerr MD#### LUPPRO ####[facility] Ggz2020 [place] [address] Lab Director: Shreyas Crain DOMercy [address] [address] [facility] Director: Bowen Lemon MD#### MISCR ####[address] [address] Lab Director: RADHA Delgado [address] [phone] [facility] Director: Kristopher Kerr MD Lipoprotein (a)on 05-10-2020 Lipoprotein a [Mass/Vol] 72 mg/dL High <=29 [facility] Comment on above: Result Comment: (NOT E) Performed By: [facility] [address] [place] [address] Coffee Host: Kristopher Kerr MD, [place] Performed By: #### C RP, TSHX #### [facility] [address] [place] [address] Welder Explosion: Shreyas Crain DO #### HOCYS, GLYHGB, B12FOL, FA7, FA8, AT3A #### [facility] [address] [place] [address] Welder Explosion: Bowen Lemon MD #### ALPLA, AAPCR, APRTSF, AB2GLY, APROTC, ADYSF, AAPDSR #### [facility] [address] [place] [address] Welder Explosion: Kristopher Kerr MD #### LUPPRO #### [facility] [address] [place] [address] Welder Explosion: Shreyas Crain DO [address] [address] [place] [address] Welder Explosion: Bowen Lemon MD #### MISCR #### [address] [address] Welder Explosion: Bowen Lemon MD [facility] [address] [place] [address] Welder Explosion: Kristopher Kerr MD Protein S Ag, Freeon 020 GFR/1.73 sq M predicted among non-blacks MDRD (S/P/Bld) [Vol rate/Area] 109 % Normal 74-147 [facility] Comment on above: Result Comment: (NOT [...] reference intervals for this test in the [facility] Test Directory ([facility]). Performed by [facility], [address] [place] [address] [phone] www.[email or web address], Kristopher Kerr MD, Lab. Director Performed By: #### C RP, TSHX #### [facility] [address] [place] [address] Welder Explosion: Shreyas Crain DO #### HOCYS, GLYHGB, B12FOL, FA7, FA8, AT3A #### [address] [address] [place] [address] Welder Explosion: Bowen Lemon MD #### ALPLA, AAPCR, APRTSF, AB2GLY, APROTC, ADYSF, AAPDSR #### [facility] [address] [place], [place] [phone] Welder Explosion: Kristopher Kerr MD #### LUPPRO #### [facility] [address] [place] [address] Welder Explosion: Shreyas Crain DO [facility] [address] [place] [address] Welder Explosion: Bowen Lemon MD #### MISCR #### [address] [address] Welder Explosion: Bowen Lemon MD [facility], [facility] [address] [place], [place] [phone] Welder Explosion: Kristopher Kerr MD Lupus Anticoagulanton 2019 Antiphospholipid IgA 2.2 APU Normal <12 [facility] Comment on above: Result Comment: Reference Range: 12 - 15 Equivocal >15 Positive Performed By: #### C RP, TSHX ####[facility] Cqn8564 [place] [address] Lab Director: Shreyas Crain DO#### HOCYS, GLYHGB, B12FOL, FA7, FA8, AT3A ####[address] [address] Lab Director: Bowen Lemon MD#### ALPLA, AAPCR, APRTSF, AB2GLY, APROTC, ADYSF, AAPDSR ####[facility] Ebrzscxccdji294 [place], [place] [id number] Lab Director: Kristopher Kerr MD#### LUPPRO ####[facility] Fvs87[address] [place], [place] [phone] Director: Shreyas Crain DOMercy [address] [address] Lab Director: Bowen Lemon MD#### MISCR ####[address] [address] Lab Director: RADHA Delgado [address] [phone] Lab Director: Kristopher Kerr MD Antiphospholipid IgG 3.5 GPU Normal <20 [facility] Comment on above: Result Comment: Reference Range: 20.0 - 29.9 Low Positive 30.0 - 79.9 Moderate Positive >79.9 High Positive Performed By: #### C RP, TSHX ####[facility] K[address] [place] [address] Lab Director: Shreyas Crain DO#### HOCYS, GLYHGB, B12FOL, FA7, FA8, AT3A ####[address] [address] Lab Director: Bowen Lemon MD#### ALPLA, AAPCR, APRTSF, AB2GLY, APROTC, ADYSF, AAPDSR ####[facility] [address] [place] [address] [phone] Lab Director: Kristopher Kerr MD#### LUPPRO ####[facility] Net[address] [place] [address] Lab Director: Shreyas Crain DOMercy [address] [address] Lab Director: Bowen Lemon MD#### MISCR ####[facility] Ai[address] [place] [address] Lab Director: RADHA Delgado [address] [address] Lab Director: Kristopher Kerr MD Antiphospholipid IgM 5.2 MPU Normal <20 [facility] Comment on above: Result Comment: Reference Range: 20.0 - 29.9 Low Positive 30.0 - 79.9 Moderate Positive >79.9 High Positive Performed By: #### C RP, TSHX ####[facility] Dta9881 [place], [place] [phone] Director: Shreyas Crain DO#### HOCYS, GLYHGB, B12FOL, FA7, FA8, AT3A ####[facility] U[address] [place] [address] Lab Director: Bowen Lemon MD#### ALPLA, AAPCR, APRTSF, AB2GLY, APROTC, ADYSF, AAPDSR ####[facility] [address] [place] [address] [phone] Lab Director: Kristopher Kerr MD#### LUPPRO ####[facility] Vyy9647 [place], [place] [phone] Director: Shreyas Crain DOMercy [address] [address] Lab Director: Bowen Lemon MD#### MISCR ####[address] [phone] Director: RADHA Delgado X[address] [place] [address] [phone] Lab Director: Kristopher Kerr MD Miscel, [facility] Test Name THROMBOTIC RISK PANE L TO [facility] [id number] Normal [facility] Comment on above: Performed By: #### C RP, TSHX ####[facility] Syg9562 [place], [place] [phone] Director: Shreyas Crain DO#### HOCYS, GLYHGB, B12FOL, FA7, FA8, AT3A ####[facility] Abwe[address] [place] [address] Lab Director: Bowen Lemon MD#### ALPLA, AAPCR, APRTSF, AB2GLY, APROTC, ADYSF, AAPDSR ####[facility] On[address]dwps[address]h499 [place], [place] [id number] Lab Director: Kristopher Kerr MD#### LUPPRO ####[facility] Nqf[address] [place], [place] [phone] Director: Shreyas Crain DOMercy Fimyseopeima8061 [place] [address] Lab Director: Bowen Lemon MD#### MISCR ####[facility]2222 [place], [place] [phone] Director: RADHA Delgado [address] [address] Lab Director: Kristopher Kerr MD B12/Folate Panelon 0 Cobalamin (Vitamin B12) [Mass/Vol] 840 pg/mL Normal 232-1245 [facility] Comment on above: Performed By: #### C RP, TSHX #### [facility] [address] [place] [address] Welder Explosion: Shreyas Crain DO #### HOCYS, GLYHGB, B12FOL, FA7, FA8, AT3A #### [facility] [address] [place] [address] Welder Explosion: Bowen Lemon MD #### ALPLA, AAPCR, APRTSF, AB2GLY, APROTC, ADYSF, AAPDSR #### [facility] [address] [place], [place] [id number] Welder Explosion: Kristopher Kerr MD #### LUPPRO #### [facility] [address] [place] [address] Welder Explosion: Shreyas Crain DO [address] [address] Welder Explosion: Bowen Lemon MD #### MISCR #### [address] [address] Welder Explosion: Bowen Lemon MD [facility] [address] [place], [place] [phone] Welder Explosion: Kristopher Kerr MD Folic Acid 5.3 ng/mL Normal >4.8 [facility] Comment on above: Performed By: #### C RP, TSHX #### [facility] [address] [place] [address] Welder Explosion: Shreyas Crain DO #### HOCYS, GLYHGB, B12FOL, FA7, FA8, AT3A #### [address] [address] Welder Explosion: Bowen Lemon MD #### ALPLA, AAPCR, APRTSF, AB2GLY, APROTC, ADYSF, AAPDSR #### [facility] [address] [place] [address] Welder Explosion: Kristopher Kerr MD #### LUPPRO #### [facility] [address] [place] [address] Welder Explosion: Shreyas Crain DO [address] [address] Welder Explosion: Bowen Lemon MD #### MISCR #### [address] [address] Welder Explosion: Bowen Lemon MD [facility] [address] [place] [address] Welder Explosion: Kristopher Kerr MD C-Reactive Proteinon 22-2 020 CRP [Mass/Vol] 2.7 mg/L Normal 0.0-5.0 [facility] Comment on above: Performed By: #### C RP, TSHX #### [facility] [address] [facility] [place] [address] Welder Explosion: Shreyas Crain DO #### HOCYS, GLYHGB, B12FOL, FA7, FA8, AT3A #### [address] [address] Welder Explosion: Bowen Lemon MD #### ALPLA, AAPCR, APRTSF, AB2GLY, APROTC, ADYSF, AAPDSR #### [facility], [facility] [address] [place], [place] [phone] Welder Explosion: Kristopher Kerr MD #### LUPPRO #### [facility] [address] [facility] [place] [address] Welder Explosion: Shreyas Crain DO [address] [address] Welder Explosion: Bowen Lemon MD #### MISCR #### [address] [address] Welder Explosion: Bowen Lemon MD [address] [phone] Welder Explosion: Kristopher Kerr MD CRP [Mass/Vol] 2.7 mg/L 0 - 5 mg/L [place], [place] DNA Testingon 05-08-2020 DNA Testing (NOTE) Specimen(s) Received: Peripheral blood, [facility] Clinical Information: CVA RESULTS: The Factor V Leiden [id number] Mutation analysis for this patient was sent to [facility]. See separate report. Electronically Signed Out Elba Rodriguez M.D. [facility] [address] [place] [phone] FACTOR V LEIDEN MUTATION ANALYSIS REPORT [facility] Alpesh Dc MD, Elba Rodriguez MD [facility] Comment on above: Performed By: #### C RP, TSHX #### [facility] [address] [facility] [place] [address] Welder Explosion: Shreyas Crain DO #### HOCYS, GLYHGB, B12FOL, FA7, FA8, AT3A #### [address] [address] Welder Explosion: Bowen Lemon MD #### ALPLA, AAPCR, APRTSF, AB2GLY, APROTC, ADYSF, AAPDSR #### [facility] [address] [place] [address] [phone] Welder Explosion: Kristopher Kerr MD #### LUPPRO #### [facility] [address] [place] [address]. [place] [address] Welder Explosion: Shreyas Crain DO [address] [phone] Welder Explosion: Bowen Lemon MD #### MISCR #### [address] [address] Welder Explosion: Bowen Lemon MD [address] [phone] Welder Explosion: Kristopher Kerr MD DNA Testing (NOTE) Specimen(s) Received: Peripheral blood Clinical Information: CVA RESULTS: The MTHFR Mutation variants c.665C>T and c.1286A>C analysis for this patient was sent to [facility]. See separate report. Electronically Signed Out Elba Rodriguez M.D. [facility]OR[facility] [address] [place] [phone] MTHFR GENE MUTATION ANALYSIS REPORT [facility] Alpesh Dc MD, Elba Rodriguez MD [facility] Comment on above: Performed By: #### C RP, TSHX #### [facility] [address] [place] [address] Welder Explosion: Shreyas Crain DO #### HOCYS, GLYHGB, B12FOL, FA7, FA8, AT3A #### [address] [address] Welder Explosion: Bowen Lemon MD #### ALPLA, AAPCR, APRTSF, AB2GLY, APROTC, ADYSF, AAPDSR #### [facility] [address] [place] [address] Welder Explosion: Kristopher Kerr MD #### LUPPRO #### [facility] [address] [place] [address] Welder Explosion: Shreyas Crain DO [address] [address] Welder Explosion: Bowen Lemon MD #### MISCR #### [address] [address] Welder Explosion: Bowen Lemon MD [address] [phone] Welder Explosion: Kristopher Kerr MD DNA Testing (NOTE) Specimen(s) Received: Peripheral blood, PTI Clinical Information: CVA RESULTS: The Prothrombin (F2) c.*97G>A ([id number]) Pathogenic Variant analysis for this patient was sent to [facility] [employer]. See separate report. Electronically Signed Out Elba Rodriguez M.D. [facility] MO[facility]ULAR [facility] [address] [place] [phone] FACTOR II (PROTHROMBIN) MUTATION ANALYSIS REPORT [facility] Alpesh Dc MD, Elba Rodriguez MD [facility] Comment on above: Performed By: #### C RP, TSHX #### [facility] [address] [place] [address] Welder Explosion: Shreyas Crain DO #### HOCYS, GLYHGB, B12FOL, FA7, FA8, AT3A #### [address] [address] Welder Explosion: Bowen Lemon MD #### ALPLA, AAPCR, APRTSF, AB2GLY, APROTC, ADYSF, AAPDSR #### [facility] [address] [place] [address] Welder Explosion: Kristopher Kerr MD #### LUPPRO #### [facility] [address] [place] [address] Welder Explosion: Shreyas Crain DO [address] [address] Welder Explosion: Bowen Lemon MD #### MISCR #### [address] [address] Welder Explosion: Bowen Lemon MD [facility] [address] [place], [place] [phone] Welder Explosion: Kristopher Kerr MD ECHO Complete 2D W Doppler W Coloron 05-08-2020 [facility] Transthoracic Echocardiography Report (TTE) Patient Name ICKES Date of Study 05/08/2020 YOEL E Date of 1955 Gender Male Age 64 year(s) Race Room Number Height: 72 inch, 182.88 cm Corporate ID [id number] Weight: 220 pounds, 99.8 kg # Patient Acct [id number] BSA: 2.22 m^2 BMI: 29.84 # kg/m^2 MR # [id number] Tyre Fitter Yoselyn Pedro Interpreting Physician Kvng Hanna Fellow Referring Nurse Practitioner Interpreting Referring Physician Andreia Ramos Fellow Type of Study TTE procedure:2D Echocardiogram, M-Mode, Doppler, Color Doppler, Bubble Study. Procedure Date Date: 05/08/2020 Start: 10:11 AM Study Location: [facility] Technical Quality: Fair visualization Indications:CVA and [...] velocity:0.05 m/s Lateral Wall E' velocity:0.05 m/s [facility] [place], [place] Adam, Mhpn Incoming C ardio Results From [employer] - 05/08/2020 11:32 AM EDT [facility] Transthoracic Echocardiography Report (TTE) Patient Name REHAN Date of Study 05/08/2020 YOEL Bryant Date of 1955 Gender Male Age 64 year(s) Race Room Number Height: 72 inch, 182.88 cm Corporate ID [id number] Weight: 220 pounds, 99.8 kg # Patient Acct [id number] BSA: 2.22 m^2 BMI: 29.84 # kg/m^2 MR # [id number] Tyre Fitter Yoselyn Pedro Interpreting Physician Kvng Hanna Fellow Referring Nurse Practitioner Interpreting Referring Physician Andreia Ramos Fellow Type of Study TTE procedure:2D Echocardiogram, M-Mode, Doppler, Color Doppler, Bubble Study. Procedure Date Date: 05/08/2020 Start: 10:11 AM Study Location: [facility] Technical Quality: Fair visualization Indications:CVA and [...] velocity:0.05 m/s Lateral [place] E' velocity:0.05 m/s [place], [place] Hemoglobin A1Con 05-08-2020 HbA1c (Bld) [Mass fraction] 8.6 % High 4.0-6.0 [facility] Comment on above: Performed By: #### C RP, TSHX #### [facility] [address] [place] [address] Welder Explosion: Shreyas Crain DO #### HOCYS, GLYHGB, B12FOL, FA7, FA8, AT3A #### [facility] [place], [place] [phone] Welder Explosion: Bowen Lemon MD #### ALPLA, AAPCR, APRTSF, AB2GLY, APROTC, ADYSF, AAPDSR #### [facility] [address] [place] [address] Welder Explosion: Kristopher Kerr MD #### LUPPRO #### [facility] [address] [place] [address] Welder Explosion: Shreyas Crain DO [address] [address] Welder Explosion: Bowen Lemon MD #### MISCR #### [address] [address] Welder Explosion: Bowen Lemon MD [facility] [address] [place] [address] [phone] Welder Explosion: Kristopher Kerr MD HbA1c (Bld) [Mass fraction] 200 mg/dL Normal [facility] Comment on above: Result Comment: The ADA and AACC recommend providing the estimated average glucose result to permit better patient understanding of their HBA1c result. Performed By: #### C RP, TSHX #### [facility] [address] [place] [address] Welder Explosion: Shreyas Crain DO #### HOCYS, GLYHGB, B12FOL, FA7, FA8, AT3A #### [address] [address] Welder Explosion: Bowen Lemon MD #### ALPLA, AAPCR, APRTSF, AB2GLY, APROTC, ADYSF, AAPDSR #### [facility] [address] [place] [address] Welder Explosion: Kristopher Kerr MD #### LUPPRO #### [facility] [place] [address] Welder Explosion: Shreyas Crain DO [address] [address] Welder Explosion: Bowen Lemon MD #### MISCR #### [address] [address] Welder Explosion: Bowen Lemon MD [facility] [address] [place] [phone] Welder Explosion: Kristopher Kerr MD Glucose [Mass/Vol] 200 mg/dL [place], [place] Comment on above: The ADA and AACC rec ommend providing the estimated average glucose result to permit better patient understanding of their HBA1c result. HbA1c (Bld) [Mass fraction] 8.6 % High 4 - 6 % [place], [place] Interpretation and review of laboratory results Abnormal [place], [place] Homocysteineon 05-08-2020 Homocysteine 10.0 umol/L Normal <15.0 [facility] Comment on above: Performed By: #### C RP, TSHX #### [facility] [address] [place] [address] Welder Explosion: Shreyas Crain DO #### HOCYS, GLYHGB, B12FOL, FA7, FA8, AT3A #### [facility] [employer] [address] [place] [address] [phone] Welder Explosion: Bowen Lemon MD #### ALPLA, AAPCR, APRTSF, AB2GLY, APROTC, ADYSF, AAPDSR #### [facility] [address] [place] [address] Welder Explosion: Kristopher Kerr MD #### LUPPRO #### [facility] [address] [place] [address] Welder Explosion: Shreyas Crain DO [facility] [address] [place] [address] Welder Explosion: Bowen Lemon MD #### MISCR #### [facility] [employer] [address] [place] [address] Welder Explosion: Bowen Lemon MD [facility] [address] [place] [address] Welder Explosion: Kristopher Kerr MD Homocysteine, Serumon 2019 Homocysteine 10 umol/L <15.0 [place], [place] Lupus Anticoagulanton 2019 aPTT Coag (Bld) [Time] 31.2 s Normal 24.0-36.0 [facility] Comment on above: Result Comment: IV Heparin Therapy Range: 62.0-94.0 Performed By: #### C RP, TSHX ####[facility] [address] [place] [address] Lab Director: Shreyas Crain DO#### HOCYS, GLYHGB, B12FOL, FA7, FA8, AT3A ####[facility] [address] [place] [address] Lab Director: Bowen Lemon MD#### ALPLA, AAPCR, APRTSF, AB2GLY, APROTC, ADYSF, AAPDSR ####[facility] [address] [place] [phone] Lab Director: Kristopher Kerr MD#### LUPPRO ####[facility] [address] [place] [address] [facility] Director: Shreyas Crain DOMercy [address] [address] Lab Director: Bowen Lemon MD#### MISCR ####[address] [address] Lab Director: RADHA Delgado [address] [place] [address] [phone] Lab Director: Kristopher Kerr MD INR Coag (PPP) [Relative time] 1.0 {INR} Normal [facility] Comment on above: Result Comment: Non-therapeutic Range: INR = 0.9-1.2 Therapeutic Range: Moderate Anticoagulant Intensity: INR = 2.0-3.0 High Anticoagulant Intensity: INR = 2.5-3.5 Performed By: #### C RP, TSHX ####[facility] [address] [place] [address] [facility] Director: Shreyas Crain DO#### HOCYS, GLYHGB, B12FOL, FA7, FA8, AT3A ####[address] [address] Lab Director: Bowen Lemon MD#### ALPLA, AAPCR, APRTSF, AB2GLY, APROTC, ADYSF, AAPDSR ####[facility] [address] [place] [phone] Lab Director: Kristopher Kerr MD#### LUPPRO ####[facility] Nvp[address] [place], [place] [phone] Director: Shreyas Crain DOMercy [address] [address] Lab Director: Bowen Lemon MD#### MISCR ####[address] [phone] Director: RADHA Delgado [address] [phone] Lab Director: Kristopher Kerr MD PT Coag (PPP) [Time] 12.7 s Normal 11.8-14.6 [facility] Comment on above: Performed By: #### C RP, TSHX ####[facility] W[address] [place], [place] [address])[phone] Director: Shreyas Crain DO#### HOCYS, GLYHGB, B12FOL, FA7, FA8, AT3A ####[address] [address] Lab Director: Bowen Lemon MD#### ALPLA, AAPCR, APRTSF, AB2GLY, APROTC, ADYSF, AAPDSR ####[facility] [address] [place] [address] Lab Director: Kristopher Kerr MD#### LUPPRO ####[facility] Iyz[address] [place], [place] [phone] Director: Shreyas Crain DOMercy [address] [phone] Director: Bowen Lemon MD#### MISCR ####[address] [phone] Director: RADHA Delgado [address] [phone] Lab Director: Kristopher Kerr MD Lupus Anticoagulant NOT REPORTED Normal [facility] Comment on above: Performed By: #### C RP, TSHX ####[facility] Nqu[address] [place], [place] [phone] Director: Shreyas Crain DO#### HOCYS, GLYHGB, B12FOL, FA7, FA8, AT3A ####[address] [phone] Director: Bowen Lemon MD#### ALPLA, AAPCR, APRTSF, AB2GLY, APROTC, ADYSF, AAPDSR ####[facility] [address] [place] [phone] Lab Director: Kristopher Kerr MD#### LUPPRO ####[facility] [address] [place] [address] [phone] Director: Shreyas Crain DOMercy [address] [phone] Director: Bowen Lemon MD#### MISCR ####[address] [phone] Director: RADHA Delgado [address] [phone] Lab Director: Kristopher Kerr MD TSH With Reflex Ft4on 2019 TSH Qn 1.14 m[IU]/L [place], [place] TSH w/reflex to FT4on 2019 TSH Qn 1.14 m[IU]/L Normal 0.30-5.00 [facility] Comment on above: Performed By: #### C RP, TSHX #### [facility] [address] [place] [address] Welder Explosion: Shreyas Crain DO #### HOCYS, GLYHGB, B12FOL, FA7, FA8, AT3A #### [facility] [employer] [address] [place] [address] [phone] Welder Explosion: Bowen Lemon MD #### ALPLA, AAPCR, APRTSF, AB2GLY, APROTC, ADYSF, AAPDSR #### [facility] [address] [place] [address] Welder Explosion: Kristopher Kerr MD #### LUPPRO #### [facility] [address] [place] [address] Welder Explosion: Shreyas Crain DO [address] [phone] Welder Explosion: Bowen Lemon MD #### MISCR #### [address] [phone] Welder Explosion: Bowen Lemon MD [facility] [address] [place] [address] Welder Explosion: Kristopher Kerr MD Vitamin B12 & Folateon 05-08 Cobalamin (Vitamin B12) [Mass/Vol] 840 pg/mL 232 - 1245 pg/mL [place], [place] Folate 5.3 ng/mL >4.8 [place], [place] CT HEAD WO CONTRASTon 2019 CT [...] Jethro Duran MD 12/12/19 Final result Normal [facility] Previous hyperdensit y appears to have decreased in conspicuity suggesting resolving hemorrhage. The findings were sent to the Radiology Results Communication [facility] at 9:44 am on 12/12/2019to be communicated to a licensed caregiver. [facility], [place] EXAMINATION: CT OF T HE HEAD WITHOUT [...] of the visualized skull or soft tissues. [facility] [place], [place] Adam, Mhpn Incoming R adiant Results From [employer] - 12/12/2019 3:40 PM EST EXAMINATION: CT [...] 12/12/2019to be communicated to a licensed caregiver. [place], [place] CT HEAD WO CONTRASTon 2019 CT [...] Beto Lo MD 11/06/19 Final result Normal [facility] CT HEAD WO CONTRASTOrdered B y: [...] with chronic microvascular white matter ischemic disease. [email or web address] Phone: EXAMINATION: CT OF T HE HEAD [...] of the visualized skull or soft tissues. [email or web address] Phone: Adam, Mhpn Incoming R adiant Results From [employer] - 11/06/2019 1:51 PM EST EXAMINATION: CT [...] with chronic microvascular white matter ischemic disease. [email or web address] Phone: CT head without contrastOrde red By: Barbara Perea on 10-31-2019 Punctate hyperdense focus in the white matter of the right parietal lobe adjacent to the right lateral ventricle that may represent a small hemorrhage and short-term follow-up CT of the brain is recommended within the next 24 hours. Findings were discussed with Dr. Romo At 9:05 am on 10/31/2019. [email or web address] Phone: EXAMINATION: CT OF T HE HEAD [...] of the visualized skull or soft tissues. [email or web address] Phone: Adam, Mhpn Incoming R adiant Results From [employer] - 10/31/2019 9:34 AM EST EXAMINATION: CT [...] Dr. Romo At 9:05 am on 10/31/2019. [email or web address] Phone: EKG 12 LeadOrdered By: Robert Stephenson on 10-31-2019 Atrial Rate 79 BPM [email or web address] Phone: P [place] 54 degrees [email or web address] Phone: P-R Interval 188 ms [email or web address] Phone: Q-T Interval 392 ms [email or web address] Phone: QRS Duration 102 ms [email or web address] Phone: QTc Calculation (Bazett) 449 ms [email or web address] Phone: R [place] 0 degrees [email or web address] Phone: T [place] 59 degrees [email or web address] Phone: Ventricular Rate 79 BPM [email or web address] Phone: Normal sinus rhythm Normal ECG No previous ECGs available [email or web address] Phone: Adam, Mhpn Incoming E kg Results From [employer] - 10/31/2019 10:53 AM EST Normal sinus rhythm Normal ECG No previous ECGs available [email or web address] Phone: POC Glucose FingerstickOrder ed By: Bennie Bosch on 10-31-2019 Glucose [Mass/Vol] 122 mg/dL High 75 - 110 mg/dL [email or web address] Phone: Interpretation and review of laboratory results Abnormal [email or web address] Phone: Vital Signs Date Time Vital Sign Value Performing Clinician Facility 07-12-2025 11:06-0400 Body height 182.88 cm Alec Pinzon MD Work Phone: [facility] 07-12-2025 11:06-0400 Body mass index (BMI) [Ratio] 27.6 kg/m2 Alec Pinzon MD Work Phone: [facility] 07-12-2025 11:06-0400 Body temperature 97.5 [degF] Alec Pinzon MD Work Phone: [facility] 07-12-2025 11:06-0400 Body weight 92.53 kg Alec Pinzon MD Work Phone: [facility] 07-12-2025 11:06-0400 Diastolic blood pressure 70 mm[Hg] Alec Pinzon MD Work Phone: [facility] 07-12-2025 11:06-0400 Heart rate 98 /min Alec Pinzon MD Work Phone: [facility] 07-12-2025 11:06-0400 Respiratory rate 20 /min Alec Pinzon MD Work Phone: [facility] 07-12-2025 11:06-0400 SaO2% (BldA) [Mass fraction] 97 % Alec Pinzon MD Work Phone: [facility] 07-12-2025 11:06-0400 Systolic blood pressure 112 mm[Hg] Alec Pinzon MD Work Phone: [facility] 03-21-2025 07:51-0400 Body height 182.9 cm Alec Pinzon MD Work Phone: [facility] 03-21-2025 07:51-0400 Body mass index (BMI) [Ratio] 27.26 kg/m2 Alec Pinzon MD Work Phone: [facility] 03-21-2025 07:51-0400 Body temperature 97.3 [degF] Alec Pinzon MD Work Phone: [facility] 03-21-2025 07:51-0400 Body weight 91.17 kg Alec Pinzon MD Work Phone: [facility] 03-21-2025 07:51-0400 Diastolic blood pressure 40 mm[Hg] Alec Pinzon MD Work Phone: [facility] 03-21-2025 07:51-0400 Heart rate 113 /min Alec Pinzon MD Work Phone: [facility] 03-21-2025 07:51-0400 Respiratory rate 18 /min Alec Pinzon MD Work Phone: [facility] 03-21-2025 07:51-0400 SaO2% (BldA) [Mass fraction] 98 % Alec Pinzon MD Work Phone: [facility] 03-21-2025 07:51-0400 Systolic blood pressure 90 mm[Hg] Alec Pinzon MD Work Phone: [facility] 09-26-2024 11:44-0500 Body height 182.9 cm Alec Pinzon MD Work Phone: [facility] 09-26-2024 11:44-0500 Body mass index (BMI) [Ratio] 27.67 kg/m2 Alec Pinzon MD Work Phone: [facility] 09-26-2024 11:44-0500 Body temperature 97.5 [degF] Alec Pinzon MD Work Phone: [facility] 09-26-2024 11:44-0500 Body weight 92.53 kg Alec Pinzon MD Work Phone: [facility] 09-26-2024 11:44-0500 Diastolic blood pressure 60 mm[Hg] Alec Pinzon MD Work Phone: [facility] 09-26-2024 11:44-0500 Heart rate 70 /min Alec Pinzon MD Work Phone: [facility] 09-26-2024 11:44-0500 Respiratory rate 18 /min Alec Pinzon MD Work Phone: [facility] 09-26-2024 11:44-0500 SaO2% (BldA) [Mass fraction] 99 % Alec Pinzon MD Work Phone: [facility] 09-26-2024 11:44-0500 Systolic blood pressure 104 mm[Hg] Alec Pinzon MD Work Phone: [facility] 09-06-2024 13:13-0500 Body height 182.9 cm Alec Pinzon MD Work Phone: [facility] 09-06-2024 13:13-0500 Body mass index (BMI) [Ratio] 28.35 kg/m2 Alec Pinzon MD Work Phone: [facility] 09-06-2024 13:13-0500 Body temperature 97.3 [degF] Alec Pinzon MD Work Phone: [facility] 09-06-2024 13:13-0500 Body weight 94.8 kg Alec Pinzon MD Work Phone: [facility] 09-06-2024 13:13-0500 Diastolic blood pressure 58 mm[Hg] Alec Pinzon MD Work Phone: [facility] 09-06-2024 13:13-0500 Heart rate 75 /min Alec Pinzon MD Work Phone: [facility] 09-06-2024 13:13-0500 Respiratory rate 18 /min Alec Pinzon MD Work Phone: [facility] 09-06-2024 13:13-0500 SaO2% (BldA) [Mass fraction] 97 % Alec Pinzon MD Work Phone: [facility] 09-06-2024 13:13-0500 Systolic blood pressure 96 mm[Hg] Alec Pinzon MD Work Phone: [facility] 05-03-2021 07:59-0400 Diastolic blood pressure 74 mm[Hg] Kranthi Ruvalcaba MD Work Phone: [employer] Work Phone: 05-03-2021 07:59-0400 Heart rate 77 /min Kranthi Ruvalcaba MD Work Phone: [employer] Work Phone: 05-03-2021 07:59-0400 Systolic blood pressure 136 mm[Hg] Kranthi Ruvalcaba MD Work Phone: [employer] Work Phone: 05-03-2021 03:43-0400 Body temperature 97.81 [degF] Kranthi Ruvalcaba MD Work Phone: [employer] Work Phone: 05-03-2021 03:43-0400 Respiratory rate 16 /min Kranthi Ruvalcaba MD Work Phone: [employer] Work Phone: 05-03-2021 03:43-0400 SaO2% (BldA) [Mass fraction] 91 % Kranthi Ruvalcaba MD Work Phone: [employer] Work Phone: 05-02-2021 11:11-0400 Body height 182.9 cm Kranthi Ruvalcaba MD Work Phone: [employer] Work Phone: 04-24-2021 21:58-0400 Body mass index (BMI) [Ratio] 30.24 kg/m2 Kranthi Ruvlacaba MD Work Phone: [employer] Work Phone: 04-24-2021 21:58-0400 Body weight 101.15 kg Kranthi Ruvalcaba MD Work Phone: [employer] Work Phone: 10-31-2019 11:07-0500 Diastolic blood pressure 78 mm[Hg] Robert Stephenson MD Work Phone: [employer] Work Phone: 10-31-2019 11:07-0500 Heart rate 80 /min Robert Stephenson MD Work Phone: [employer] Work Phone: 10-31-2019 11:07-0500 Respiratory rate 17 /min Robert Stephenson MD Work Phone: [employer] Work Phone: 10-31-2019 11:07-0500 SaO2% (BldA) [Mass fraction] 92 % Robert Stephenson MD Work Phone: [employer] Work Phone: 10-31-2019 11:07-0500 Systolic blood pressure 120 mm[Hg] Robert Stephenson MD Work Phone: [employer] Work Phone: 10-31-2019 09:58-0500 Body height 182.9 cm Robert Stephenson MD Work Phone: [employer] Work Phone: 10-31-2019 09:58-0500 Body mass index (BMI) [Ratio] 28.88 kg/m2 Robert Stephenson MD Work Phone: [employer] Work Phone: 10-31-2019 09:58-0500 Body temperature 97.7 [degF] Robert Stephenson MD Work Phone: [employer] Work Phone: 10-31-2019 09:58-0500 Body weight 96.6 kg Robert Stephenson MD Work Phone: [employer] Work Phone: Encounters Encounter Date Encounter Type Care Provider Facility Start: 07-27-2025 End: 07-27-20[facility] Start: 07-12-2025 End: 07-12-2025 ambulatory Alec Pinzon MD Work Phone: [facility] Work Phone: Start: 07-12-2025 End: 07-12-2025 Patient encounter procedure Alec Pinzon MD -[facility] [place] Work Phone: Start: 05-30-2025 End: 05-30-2025 Refill Alec Pinzon MD Work Phone: [facility] Comment on above: 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 (HCC) Start: 05-16-2025 End: 05-16-2025 ambulatory LASHONDA ROBLES [facility] Start: 05-16-20[facility] Start: 05-11-2025 End: 05-11-2025 Refill Alec Pinzon MD Work Phone: [facility] Comment on above: 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, without long-term current use of insulin (HCC) Start: 05-02-2025 End: 05-02-2025 Refill Alec Pinzon MD Work Phone: [facility] Comment on above: 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 (HCC) Start: 05-01-2025 ambulatory SABRINA BULLARD [facility] Start: 04-03-2025 End: 04-03-2025 Refill Alec Pinzon MD Work Phone: [facility] Comment on above: 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 (HCC) Start: 03-21-2025 End: 03-21-2025 Bamboo flowsheet Alec Pinzon MD Work Phone: [facility] Start: 03-21-2025 End: 03-21-2025 Bamboo flowsheet Alec Pinzon MD Work Phone: [facility] Start: 03-21-2025 End: 03-21-2025 Office outpatient visit 25 minutes Alec Pinzon MD Work Phone: [facility] Comment on above: Type 2 diabetes daniela itus with hyperglycemia, without long-term current use of insulin (CMS/HCC) (Primary Dx); Adrenal insufficiency (CMS/HCC); Type 2 diabetes mellitus with diabetic polyneuropathy, without long-term current use of insulin (CMS/HCC); PVD (peripheral vascular disease) (CMS/HCC); CKD stage 3b, GFR 30-44 ml/min (CMS/HCC); Primary insomnia; Type 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 (CMS/HCC); Hemiplegia and hemiparesis following cerebral infarction affecting left non-dominant side (CMS/HCC) Start: 03-21-2025 End: 03-21-2025 ambulatory ALEC PINZON Not Available Start: 03-06-2025 End: 03-06-2025 Orders Only Alec Pinzon MD Work Phone: [facility] Comment on above: 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 (CMS/HCC) Start: 03-02-2025 Evaluation and manag ement of [facility] Start: 03-02-2025 Evaluation and manag ement of inpatient ANNA BABB [facility] Start: 03-01-2025 End: 03-04-2025 Evaluation and management of inpatient [facility] Start: 03-01-2025 ambulatory ROXANA MONSON [facility] Start: 02-27-2025 ambulatory JUAN RAMON TEJADA [facility] Start: 02-21-2025 End: 02-21-2025 ambulatory [facility] Start: 02-16-2025 End: 02-16-2025 ambulatory ROXANA MONSON [facility] Start: 02-16-2025 ambulatory ROXANA MONSON [facility] Start: 02-15-2025 ambulatory [facility] Start: 02-09-2025 End: 02-09-2025 Clinisync Result Encounter Generic External Data Provider [facility] External Department Unsolicited Start: 02-09-2025 End: 02-09-2025 Clinisync Result Encounter Generic External Data Provider NOMS External Department Unsolicited Start: 02-08-2025 End: 02-08-2025 [facility] Start: 02-06-2025 End: 02-06-2025 Refsandy Pinzon MD Work Phone: [facility] CWM FM Comment on above: 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 ([facility]) Start: 01-22-2025 End: 01-22-2025 [facility] Start: 01-16-2025 End: 01-16-2025 ambulatory [facility] Start: 01-05-2025 [facility]: 01-01-2025 End: 01-01-2025 Refsandy Pinzon MD Work Phone: [facility] CWM FM Comment on above: PVD (peripheral vasc ular disease) ([facility]) Start: 12-29-2024 End: 12-29-2024 ambulatory [facility] Start: 12-27-2024 End: 12-27-2024 ambulatory [facility] Start: 12-12-2024 End: 12-12-2024 Refsandy Pinzon MD Work Phone: [facility] CWM FM Comment on above: 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 ([facility]) Start: 12-08-2024 End: 12-08-2024 ambulatory [facility] Start: 12-07-2024 ambulatory FLORI UNDERWOOD [facility] Start: 11-17-2024 End: 11-17-2024 ambulatory [facility] Start: 11-16-2024 ambulatory [facility] Start: 11-13-2024 End: 11-13-2024 Refill Alec Pinzon MD Work Phone: [facility] CWM FM Comment on above: 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 ([facility]) Start: 11-10-2024 ambulatory FLORI UNDERWOOD [facility] Start: 11-09-2024 End: 11-09-2024 Refsandy Pinzon MD Work Phone: [facility] CWM FM Comment on above: 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, without long-term current use of insulin ([facility]) Start: 11-02-2024 End: 11-04-2024 Clinisync Result Encounter Generic External Data Provider NOMS External Department Unsolicited Start: 11-02-2024 End: 11-04-2024 Clinisync Result Encounter Generic External Data Provider NOMS External Department Unsolicited Start: 10-20-2024 End: 10-20-2024 ambulatory FLORI HAMMONDS [facility] Start: 10-20-2024 End: 10-20-2024 ambulatory [facility] Start: 10-17-2024 ambulatory [facility] Start: 10-16-2024 End: 10-16-2024 Refill Alec Pinzon MD Work Phone: [facility] CWM FM Comment on above: 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 ([facility]) Start: 09-29-2024 End: 09-29-2024 [facility] Start: 09-27-2024 ambulatory [facility] Start: 09-26-2024 End: 09-26-2024 Bamboo flowsheet Alec [...] 2 diabetes daniela itus with diabetic polyneuropathy ([facility]/HCC) Start: 09-16-2024 End: 09-18-2024 Clinisync Result Encounter Generic External Data Provider NOMS External Department Unsolicited Start: 09-16-2024 End: 09-18-2024 Clinisync Result Encounter Generic External Data Provider NOMS External Department Unsolicited Start: 09-06-2024 End: 09-06-2024 Bamboo flowsheet Alec Pinzon MD Work Phone: [facility] Start: 09-06-2024 End: 09-06-2024 Bamboo flowsheet Alec [...] without esophagitis Start: 09-01-2024 End: 09-01-2024 ambulatory [facility] Start: 08-30-2024 End: 08-30-2024 ambulatory [facility] Start: 08-22-2024 End: 08-22-2024 Refill Alec Pinzon MD Work Phone: [facility] CWM FM Comment on above: 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 ([facility]/HCC) Start: 08-11-2024 End: 08-11-2024 ambulatory [facility] Start: 08-09-2024 ambulatory [facility] Start: 07-26-2024 End: 07-26-2024 Refsandy Pinzon MD Work Phone: [facility] CWM FM Comment on above: 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 (CMS/HCC) Start: 06-28-2024 End: 06-28-2024 Refsandy Pinzon MD Work Phone: [facility] C[facility] FM Comment on above: 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 (HCC) (CMS/HCC) Start: 09-24-2023 End: 10-18-2023 ambulatory ALEC PINZON [facility] Start: 09-17-2023 End: 10-18-2023 ambulatory ALEC PINZON [facility] Start: 11-19-2022 End: 11-20-[address] ALEC [...] Evaluation and management of inpatient ALEC PINZON [facility] Start: 04-24-2021 End: 05-03-2021 Evaluation and management of inpatient Kranthi Ruvalcaba MD Work Phone: [employer] CAR 2 Comment on above: Altered mental statu s, unspecified altered mental status type (Primary Dx); NSTEMI (non-ST elevated myocardial infarction) (HCC) Start: 05-08-2020 End: 05-09-2020 Patient encounter procedure [facility] Start: 05-08-2020 End: 05-08-2020 Subsequent hospital visit by physician Alec CHAVARRIA Laboratory Comment on above: 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) ; 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 ; Diabetes mellitus due to underlying condition with diabetic neuropathy, unspecified whether help desk team leader insulin use (HCC) ; Cerebrovascular accident (CVA) due to embolism of precerebral artery (HCC); Memory impairment Start: 05-08-2020 End: 05-08-2020 Patient encounter procedure [facility] Start: 05-08-2020 End: 05-08-2020 Subsequent hospital visit by physician Tony Eeg Rm 500 [facility] EEG Comment on above: 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 (HCC); Memory impairment 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) ; Cerebrovascular accident (CVA) due to embolism of precerebral artery (HCC) Start: 12-12-2019 End: 12-15-2019 Patient encounter procedure SABRINA AGUIAR [facility] Start: 12-12-2019 End: 12-14-2019 Subsequent hospital visit by physician [facility] [place] [address] Rm [address] [facility] [address] Scan Comment on above: Cerebrovascular acci dent (CVA), unspecified mechanism (HCC) Start: 11-06-2019 End: 11-09-2019 Patient encounter procedure BARBARA PEREA [facility] Start: 11-06-2019 End: 11-08-2019 Subsequent hospital visit by physician [facility] [place] [address] [facility] [address] Scan Comment on above: Intraparenchymal hem orrhage of brain (HCC) Start: 10-30-2019 End: 10-31-2019 Evaluation and management of inpatient Robert Stephenson MD Work Phone: [facility] [phone] NSICU Comment on above: Intraparenchymal hem orrhage of brain (HCC) (Primary Dx) Start: 04-26-2018 End: 04-27-2018 Ambulatory DEFAULT PHYSICIAN Facility:[facility] Start: 05-06-2017 End: 05-07-2017 Ambulatory DEFAULT PHYSICIAN Facility:[facility] Procedures Date Procedure Procedure Detail Performing Clinician Start: 02-09-2025 CA ECHO DOPPLER COMPLETE Generic External Data Provider Start: 02-08-2025 Follow-up visit Follow-up BENY V IJENDRA Start: 11-02-2024 BLOOD CULTURE 1 Generic External Data Provider Start: 09-16-2024 AEROBE ID + SUSCEPT Gen dav External Data Provider Start: 11-18-[address] CATALINO BUSBY Comment on above: Performed By: #### P [facility] #### [facility] [address] [place] [address] Dr. Mani Carpio Start: 05-03-2021 Glucose blood [...] Phone: Start: 04-28-2021 End: 04-28-2021 Cardiac catheterization [place] lAber Shepherd ENGRAVER JEWELRY - ROAD INSPECTOR Work Phone: Start: 04-28-2021 Echo tthrc r-t [...] Basic metabolic pane l calcium total Andreas Shepherd ENGRAVER JEWELRY - ROAD INSPECTOR Work Phone: Start: 04-27-2021 Thromboplastin time partial [...] Work Phone: Start: 04-24-2021 C-reactive protein Tuan ael Patrick Ruvalcaba MD Work Phone: Start: 04-24-2021 STROKE [...] 2d w/ wom-mode compl spec&colr d Andreia Faithubair Work Phone: Start: 05-08-2020 Electroencephalogram w/rec awake&asleep Andreia Faithubair Work Phone: Start: 12-12-2019 Ct head/brain w/o co ntrast material BARBARA PREEA Start: 12-12-2019 Ct head/brain w/o co ntrast material Sabrina Aguiar Work Phone: Start: 11-06-2019 Ct head/brain w/o co ntrast material BARBARA PEREA Start: 11-06-2019 Ct head/brain w/o co ntrast material Barbararadha Perea DO Work Phone: Start: 10-31-2019 Glucose blood reagent strip Bennie Bosch MD Work Phone: Start: 10-31-2019 RESPIRATORY CARE VINNY LUATION ONLY Barbara Jameston DO Work Phone: Start: 10-31-2019 Ct head/brain w/o co ntrast material Barbara Perea DO Work Phone: Start: 10-30-2019 Ecg routine ecg w/le ast 12 lds w/i&r Robert Stephenson MD Work Phone: Start: 10-30-2019 EKG REPORT Nesha russell Plan of Treatment Date Care Activity Detail Author Start: 03-26-2027 Screening for malignant neoplasm of colon [facility] Start: 05-22-2026 Glaucoma screening Diabetes: Retinopathy Screening [facility] Start: 08-30-2025 Urine screening for protein Diabetes: Urine Protein Screening [facility] Start: 08-09-2025 Urine screening for protein Diabetes: Urine Protein Screening [facility] Start: 08-08-2025 Hemoglobin A1c measurement Diabetes: Hemoglobin A1C [facility] Start: 07-12-2025 Urine screening for protein Diabetes: Urine Protein Screening [facility] Start: 06-22-2025 End: 06-22-2025 Patient encounter procedure 06/22/2025 8:30 AM EDT Office Visit [facility] [address] [place] [address] Alec Pinzon MD [address] [place] [phone] [facility] Start: 06-21-2025 End: 06-21-2025 Patient encounter procedure 06/21/2025 9:15 AM EDT Office Visit [facility] [address] [place] [address] Alec Pinzon MD [address] [place] [address] [facility] Start: 06-18-2025 Influenza vaccination Influenza Vaccine (#1) [facility] Start: 06-07-2025 Urine screening for protein Diabetes: Urine Protein Screening [facility] Start: 05-22-2025 Glaucoma screening Diabetes: Retinopathy Screening [facility] Start: 03-21-2025 End: 03-21-2025 Patient encounter procedure [facility] Comment on above: Arrived Start: 03-06-2025 End: 03-06-2025 Patient encounter procedure 03/06/2025 1:15 PM EDT Office Visit [facility] [address] [place] [phone] Alec Pinzon MD [address] [place] [phone] [facility] Start: 09-26-2024 End: 09-26-2024 Patient encounter procedure [facility] Comment on above: Arrived Start: 09-16-2024 Hemoglobin A1c measurement Diabetes: Hemoglobin A1C [facility] Start: 09-06-2024 End: 09-06-2025 Albumin, urine, random Albumin, urine, random Lab Routine Type 2 diabetes mellitus with hyperglycemia, without long-term current use of insulin ([facility]/HCC) Expected: 09/06/2024 (Approximate), Expires: 09/06/2025 [facility] Work Phone: Comment on above: Expected: 09/06/2024 (Approximate), Expi res: 09/06/2025 Start: 09-06-2024 End: 09-06-2025 Hemoglobin A1c/Hemoglobin.total in Blood Hemoglobin A1c Lab Routine Type 2 diabetes mellitus with hyperglycemia, without long-term current use of insulin ([facility]/HCC) Expected: 09/06/2024 (Approximate), Expires: 09/06/2025 [facility] Comment on above: Expected: 09/06/2024 (Approximate), Expi res: 09/06/2025 Start: 09-06-2024 End: 09-06-2024 Patient encounter procedure 09/06/2024 1:00 PM EST Office Visit [facility] [address] [place] [phone] Alec Pinzon MD [address] [place] [phone] [facility] Start: 06-18-2024 Influenza vaccination Influenza Vaccine (#1) [facility] Start: 06-16-2024 Hemoglobin A1c measurement Diabetes: Hemoglobin A1C [facility] Start: 05-03-2022 Creatinine measurement [facility] Start: 05-03-2022 Potassium monitoring Potassium monitoring [email or web address] Phone: Start: 04-26-2022 Lipid panel Lipid screen [email or web address] Phone: Start: 04-25-2022 Hemoglobin A1c measurement A1C test (Diabetic or Prediabetic) [email or web address] Phone: Start: 07-03-2021 End: 07-03-2021 Patient encounter procedure 07/03/2021 Office Visit Neurology Soraya Henning MD [address] [id number] [facility] Start: 06-18-2021 Influenza vaccination Flu vaccine (#1) [email or web address] Phone: Start: 2020 End: 2020 Office Visit 2020 Office Visit Neurology Andreia Ramos MD [address] [address] [phone] [facility] Start: 06-18-2020 Influenza vaccination Flu vaccine (#1) [place], [place] Start: 12-21-2019 End: 12-21-2019 Office Visit 12/21/2019 Office Visit Neurology Soraya Henning MD [address] [address] [phone] [facility] Start: 12-05-2019 End: 12-05-2019 Patient encounter procedure 12/05/2019 Office Visit Neurology Sabrina Aguiar Sa, MD [address] [address] [phone] [facility] Start: 11-06-2019 End: 10-31-2020 CT HEAD WO CONTRAST CT HEAD WO CONTRAST Imaging Routine Intraparenchymal hemorrhage of brain (HCC) Expected: 11/06/2019, Expires: 10/31/2020 [email or web address] Phone: Comment on above: Expected: 11/06/2019, Expires: Start: 10-30-2019 Annual Wellness Visit (AWV) Annual Wellness Visit (AWV) [email or web address] Phone: Start: 2007 Colon cancer screen colonoscopy Colon cancer screen colonoscopy [email or web address] Phone: Start: 2007 Screening for malignant neoplasm of colon Colon cancer screen colonoscopy [place], [place] Start: 2007 Screening for malignant neoplasm of lung Low dose CT lung screening [email or web address] Phone: Start: 2007 Shingles Vaccine (1 of 2) Shingles Vaccine (1 of 2) [employer] Phone: Start: 2002 Screening for malignant neoplasm of colon Colon cancer screen colonoscopy [email or web address] Phone: Start: 1997 Diabetes screen Diabetes screen [email or web address] Phone: Start: 1976 DTaP/Tdap/Td vaccine (1 - Tdap) DTaP/Tdap/Td vaccine (1 - Tdap) [place], [place] Start: 1976 Pneumococcal Vaccine: 65+ Years (1 of 2 - PCV) Pneumococcal Vaccine: 65+ Years (1 of 2 - PCV) [facility] Start: 1976 Urine screening for protein Diabetes: Urine Protein Screening [facility] Start: 1975 Diabetic microalbuminuria test Diabetic microalbuminuria test [email or web address] Phone: Start: 1972 HIV screen HIV screen [email or web address] Phone: Start: 1972 HIV screening HIV screen [facility] [place] Start: 1968 DTaP/Tdap/Td vaccine (1 - Tdap) DTaP/Tdap/Td vaccine (1 - Tdap) [email or web address] Phone: Start: 1967 Diabetic foot examination Diabetic foot exam [email or web address] Phone: Start: 1967 Diabetic retinal exam Diabetic retinal exam [email or web address] Phone: Start: 1967 Glaucoma screening Diabetes: Retinopathy Screening [facility] Start: 1967 Lipid panel Lipid screen [place], [place] Start: 1967 Lipid screen Lipid screen [facility] Phone: Start: 1963 Pneumococcal 0-64 years Vaccine (1 of 1 - PPSV23) Pneumococcal 0-64 years Vaccine (1 of 1 - PPSV23) [email or web address] Phone: Start: 1963 Pneumococcal 0-64 years Vaccine (1 of 2 - PPSV23) Pneumococcal 0-64 years Vaccine (1 of 2 - PPSV23) [email or web address] Phone: Start: 1963 Pneumococcal Vaccine: 65+ Years (1 of 2 - PCV) Pneumococcal Vaccine: 65+ Years (1 of 2 - PCV) [facility] Start: 1957 Creatinine measurement Creatinine monitoring [facility] [place] Start: 1957 Creatinine monitoring Creatinine monitoring [facility] Phone: Start: 1957 Hepatitis C screen Hepatitis C screen [facility] Phone: Start: 1957 Hepatitis C screening Hepatitis C screen [place], [place] Start: 1957 Potassium monitoring Potassium monitoring [facility] Phone: Start: 1957 Screening for malignant neoplasm of colon [facility] Start: 1957 Screening for malignant neoplasm of lung Lung Cancer Screening Shared Decision Making [facility] End: 05-08-2020 Activated Protein C Resistance Activated Protein C Resistance Lab Routine 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) 1 Occurrences starting 05/08/2020 until 05/08/2020 [place], [place] Comment on above: 1 Occurrences starting 05/08/2020 until 05/08/2020 Activated Protein C Resistance Activated Protein C Resistance Lab Routine 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) 05/08/2020 11:16 AM EDT [place] AEROBE ID + SUSCEPT AEROBE ID + SUSCEPT Lab Routine 09/16/2024 10:25 AM [facility] End: 05-08-2020 Antithrombin III Activity Antithrombin III Activity Lab Routine 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) 1 Occurrences starting 05/08/2020 until 05/08/2020 [place], [place] Comment on above: 1 Occurrences starting 05/08/2020 until 05/08/2020 Antithrombin III Activity Antith rombin III Activity Lab Routine 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) 05/08/2020 11:16 AM EDT [place], [place] End: 05-04-2021 aPTT in Blood by Coagulation assay APTT Lab Routine Daily for 3 Occurrences starting 05/02/2021 until 05/04/2021, 2 completed [employer] Work Phone: Comment on above: Daily for 3 Occurrences starting 021 until 05/04/2021, 2 completed Basic Metabolic Pane l w/ Reflex to MG Basic Metabolic Panel w/ Reflex to MG Lab Routine Daily until discontinued starting 04/26/2021, 8 completed [email or web address] Phone: Comment on above: Daily until discontinued starting 2020, 8 completed End: 11-01-2019 Basic Metabolic Panel w/ Reflex to MG Basic Metabolic Panel w/ Reflex to MG Lab Routine Tomorrow AM for 1 Occurrences starting 11/01/2019 until 11/01/2019 [email or web address] Phone: Comment on above: Tomorrow AM for 1 Occurrences starting 0 11/01/2019 until 11/01/2019 End: 05-08-2020 Beta-2 Glycoprotein Antibodies Beta-2 Glycoprotein Antibodies Lab Routine 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) 1 Occurrences starting 05/08/2020 until 05/08/2020 [place] Comment on above: 1 Occurrences starting 05/08/2020 until 05/08/2020 Beta-2 Glycoprotein Antibodies Beta-2 Glycoprotein Antibodies Lab Routine 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) 05/08/2020 11:16 AM EDT [place] BLOOD CULTURE 1 BLOOD CULTURE 1 Lab Routine 11/02/2024 11:53 AM [facility] CBC panel - Blood by Automated count CBC Lab Routine Every Other Day until discontinued starting 04/27/2021, 4 completed [email or web address] Phone: Comment on above: Every Other Day until discontinued start ing 04/27/2021, 4 completed End: 11-01-2019 CBC W Auto Differential panel - Blood CBC auto differential Lab Routine Tomorrow AM for 1 Occurrences starting 11/01/2019 until 11/01/2019 [email or web address] Phone: Comment on above: Tomorrow AM for 1 Occurrences starting 0 11/01/2019 until 11/01/2019 Comprehensive metabo lic 2000 panel - Serum or Plasma [facility] End: 05-08-2020 Factor 5 Leiden Factor 5 Leiden Lab Routine 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) 1 Occurrences starting 05/08/2020 until 05/08/2020 [place] Comment on above: 1 Occurrences starting 05/08/2020 until 05/08/2020 End: 05-08-2020 Factor 7 Assay Factor 7 Assay Lab Routine 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) 1 Occurrences starting 05/08/2020 until 05/08/2020 [place] Comment on above: 1 Occurrences starting 05/08/2020 until 05/08/2020 Factor 7 Assay Factor 7 Assay L ab Routine 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) 05/08/2020 11:16 AM [facility] [place] End: 05-08-2020 Factor 8 Assay Factor 8 Assay Lab Routine 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) 1 Occurrences starting 05/08/2020 until 05/08/2020 [place] Comment on above: 1 Occurrences starting 05/08/2020 until 05/08/2020 Factor 8 Assay Factor 8 Assay L ab Routine 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) 05/08/2020 11:16 AM [facility] [place] End: 05-08-2020 FIBRINOGEN PANEL FIBRINOGEN PANEL Lab Routine 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) 1 Occurrences starting 05/08/2020 until 05/08/2020 [facility] Comment on above: 1 Occurrences starting 05/08/2020 until 05/08/2020 FIBRINOGEN PANEL FIBRINOGEN PANE L Lab Routine 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) 05/08/2020 11:16 AM T [facility] Glucose [Mass/volume ] in Serum or Plasma POCT Glucose Point of Care Testing STAT As Needed until discontinued starting 04/27/2021 [email or web address] Phone: Comment on above: As Needed until discontinued starting End: 04-25-2021 Hemoglobin A1c/Hemoglobin.total in Blood HEMOGLOBIN A1C Lab Routine One Time for 1 Occurrences starting 04/25/2021 until 04/25/2021 [email or web address] Phone: Comment on above: One Time for 1 Occurrences starting 06/2021 until 04/25/2021 Initiate Oxygen Ther apy Protocol Initiate Oxygen Therapy Protocol Respiratory Care Routine Daily until discontinued starting 10/31/2019 [email or web address] Phone: Comment on above: Daily until discontinued starting 2019 LAB SCANNED REPORT LAB SCANNED R EPORT Lab Ordered: 04/30/2021 [email or web address] Phone: Comment on above: Ordered: 04/30/2021 End: 05-08-2020 Lipoprotein a [Mass/Vol] Lipoprotein A Lab Routine 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) 1 Occurrences starting 05/08/2020 until 05/08/2020 [employer] [facility] Comment on above: 1 Occurrences starting 05/08/2020 until 05/08/2020 Lipoprotein a [Mass/Vol] Lipopro tein A Lab Routine 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) 05/08/2020 11:16 AM [facility] Lupus Anticoagulant Lupus Antico agulant Lab Routine 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) 05/08/2020 11:16 AM [facility] Magnesium [Mass/volu me] in Serum or Plasma MAGNESIUM Lab Add-On Daily until discontinued starting 05/02/2021, 2 completed [email or web address] Phone: Comment on above: Daily until discontinued starting 2020, 2 completed End: 05-08-2020 MTHFR mutation MTHFR mutation Lab Routine 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) 1 Occurrences starting 05/08/2020 until 05/08/2020 [employer] Comment on above: 1 Occurrences starting 05/08/2020 until 05/08/2020 Oxygen therapy [[facility]ini [facility] Data Set] [email or web address] Phone: Comment on above: Daily until discontinued starting 2020 Daily until disconti nued starting 05/02/2021 End: 05-08-2020 Phosphatidylserine Antibodies Phosphatidylserine Antibodies Lab Routine 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) 1 Occurrences starting 05/08/2020 until 05/08/2020 [employer] [place] Comment on above: 1 Occurrences starting 05/08/2020 until 05/08/2020 Phosphatidylserine Antibodies Phosphatidylserine Antibodies Lab Routine 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) 05/08/2020 11:16 AM EDT [employer] [place] End: 04-24-2021 POC Blood Gas and Chemistry POC Blood Gas and Chemistry Point of Care Testing STAT One Time for 1 Occurrences starting 04/24/2021 until 04/24/2021 [email or web address] Phone: Comment on above: One Time for 1 Occurrences starting 05/2021 until 04/24/2021 Potassium w/ Reflex to Magnesium Potassium w/ Reflex to Magnesium Lab Routine As Needed until discontinued starting 04/28/2021 [email or web address] Phone: Comment on above: As Needed until discontinued starting End: 05-08-2020 Protein C Antigen, Total Protein C Antigen, Total Lab Routine 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) 1 Occurrences starting 05/08/2020 until 05/08/2020 [employer] Comment on above: 1 Occurrences starting 05/08/2020 until 05/08/2020 Protein C Antigen, Total Protein C Antigen, Total Lab Routine 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) 05/08/2020 11:16 AM EDT [facility] [place] End: 05-08-2020 Protein S Antigen, Free Protein S Antigen, Free Lab Routine 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) 1 Occurrences starting 05/08/2020 until 05/08/2020 [place], [place] Comment on above: 1 Occurrences starting 05/08/2020 until 05/08/2020 Protein S Antigen, Free Protein S Antigen, Free Lab Routine 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) 05/08/2020 11:16 AM EDT [facility] [place] End: 05-08-2020 Prothrombin Gene Mutation Prothrombin Gene Mutation Lab Routine 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) 1 Occurrences starting 05/08/2020 until 05/08/2020 [place], [place] Comment on above: 1 Occurrences starting 05/08/2020 until 05/08/2020 [facility] Immunizations Immunization Date Immunization Notes Care Provider [facility] 09-17-2024 influenza virus vaccine, unspecified formulation Alec Pinozn MD Work Phone: [facility] 11-10-2023 influenza virus vaccine, unspecified formulation Alec Pinzon MD Work Phone: [facility] 10-31-2019 influenza quadrivale nt split vaccine (FLUZONE;FLUARIX;FLULAV AL;AFLURIA) injection 0.5 mL Robert Stephenson MD Work Phone: [facility] Work Phone: 10-31-2019 influenza, injectabl e, quadrivalent, preservative free Robert Stephenson MD Work Phone: [facility] Work Phone: Payers Date Payer Category Payer Medicare [employer] MEDICARE UHC DUAL COMPLETE [id number] 2022-Present [address] [place] [address] [id number] 2022 Medicare (Managed Care) [employer]ARE MEDICARE [id number] 2021 Unknown [id number] 2019 [place] xxxxxxxxxxxx 2019-Present [phone] [address] [place] [address] xxxxxxxxxxxx [id number] 2019 [place] [id number] 2019-Present [phone] [address] [place] [address] [id number] 2019 Medicare MEDICARE MEDICAR E PART A AND B xxxxxxxxxxx 2019-Present [phone] [place] [address] xxxxxxxxxxx [id number] 2019 Medicare [id number] 2019 Medicare MEDICARE MEDICAR E PART A AND B [id number] 2019-Present [phone] [place] [address] [id number] 2017 Unknown [id number] 1959 Medicaid [id number] 1955 Unknown [id number] 2.16.840.1.435204.3.579.2. 176 1957 Unknown [id number] 2.16.840.1.718619.3.579.2. 176 1957 Unknown [id number] 2.16.840.1.736684.3.579.2. 176 1957 Unknown [id number] 2.16.840.1.324145.3.579.2. 176 1957 Unknown [id number] 2.16.840.1.798637.3.579.2. 176 1957 Unknown [id number] 2.16.840.1.904319.3.579.2. 175 1957 Unknown [id number] 2.16.840.1.410950.3.579.2. 593 1957 Unknown [id number] 2.16.840.1.586965.3.579.2. 593 1957 Unknown [id number] 2.16.840.1.171247.3.579.2. 593 1957 Unknown [id number] 2.16.840.1.688299.3.579.2. 593 1957 Unknown [id number] 2.16.840.1.461879.3.579.2. 593 1957 Unknown [id number] 2.16.840.1.174376.3.579.2. 593 1957 Unknown [id number] 2.16.840.1.297508.3.579.2. 1286 1957 Unknown [id number] 2.16.840.1.929714.3.579.2. 1286 1957 Unknown [id number] 2.16.840.1.989676.3.579.2. 1259 1957 Unknown [id number] 2.16.840.1.425102.3.579.2. 1259 1957 Unknown [id number] 2.16.840.1.309667.3.579.2. 1259 Medicare [id number] Unknown Social History Date Type Detail Facility Start: 11-07-2019 End: 07-12-2025 Tobacco smoking status NEIS Current every day smoker [facility] Start: 10-18-1974 History of tobacco use Cigarette Smo ker [email or web address] Phone: Start: 11-07-2019 End: 03-14-2024 Cigarettes smoked current (pack per day) - Reported [email or web address] Phone: Start: 1955 Sex Assigned At Not on file [facility] Phone: Start: 04-25-2020 End: 11-17-2023 Tobacco use and exposure Never used [facility] [employer] [place] Start: 08-14-2020 Alcohol intake Ex-drinker (finding) [email or web address] Phone: Exposure to SARS-CoV -2 (event) Not sure [employer] Start: 03-14-2024 End: 03-21-2025 Social connection and isolation panel [facility] Attends [employer] Not on file [facility] Do you belong to any clubs or organizations such as mormon groups, unions, fraternal or athletic groups, or [...] to get more. Never true [facility] Sex Male (finding) [facility] Start: 1955 Sex Assigned At Male F [facility] Medical Equipment Procedure Code Equipment Code Equipment Origin al Text Equipment Identifier Dates [id number] Start: 05-26-2023 Use as instructed [id number] Start: 03-06-2025 Use as instructed [id number] Start: 03-07-2025 Blood Sugar Diagnostic (Freestyle Insulinx) strip Start: 2025 Lancets 33 gauge misc Start: 2025 Clinical Notes 10-31-2019 to 03-21-2025 Alec Pinzon MD - 03/21/2025 8:36 AM Siddharth Pinzon MD - 03/21/2025 8:36 AM Siddharth Pinzon MD - 03/21/2025 8:36 AM Siddharth Pinzon MD - 03/21/2025 8:36 AM EDTDischarge Instr - [facility] Note Date & Type Note Facility 03-21-2025 History of Present illness Narrative Associated Problem(s): Type 2 diabetes mellitus with diabetic polyneuropathy, without long-term current use of insulin (CMS/HCC) Symptoms tolerable with medication and continue. Associated Problem(s): PVD (peripheral vascular disease) (CMS/HCC) Recent stent and improved. Increase ambulation. Associated Problem(s): Insomnia Sleeping well with medication and continue. Associated Problem(s): Hyperglycemia due to type 2 diabetes mellitus (CMS/HCC) Reports BS slightly elevated and last A1C 9.6. Endo added ozempic but didn't eat and stopped. Try januvia. Continue meds and stick to ADA diet. Associated Problem(s): Adrenal insufficiency (CMS/HCC) BP low but stable and follow with endo. Images from the original note were not included. Subjective Patient ID: Yoel Van is a 69 y.o. male who presents for Follow-up (6m). Follow up DM, HTN, neuropathy, insomnia, and GERD. Reports BS around 150-160. Tries to eat well and stick to ADA diet but reports occasional splurges. Denies signs of elevated BS such as polyuria, polyphagia or polydipsia. BP remains low due to adrenal insufficiency. Following with endocrinology and on cortef. BP low today. Occasional symptoms and lightheaded when up and moving. Neuropathy stable. Mild pain and burning in feet. Symptoms worse with walking and standing. Using percocet PRN which helps. Sleeping well with medication. Able to fall asleep and stay asleep. Wakes up rested in am. Seen by vascular and had angioplasty and stent in right leg. Pain improved but still symptoms on left. Review of Systems Constitutional: Negative for fatigue. [...] Assessment/Plan Problem List Items Addressed This Visit PVD (peripheral vascular disease) (CMS/HCC) Recent stent and improved. Increase ambulation. Type 2 diabetes mellitus with diabetic polyneuropathy, without long-term current use of insulin (CMS/HCC) Symptoms tolerable with medication and continue. Insomnia Sleeping well with medication and continue. Hyperglycemia due to type 2 diabetes mellitus ([facility]/HCC) - Primary Reports BS slightly elevated and last A1C 9.6. Endo added ozempic but didn't eat and stopped. Try januvia. Continue meds and stick to ADA diet. Relevant Medications SITagliptin (Januvia) 100 MG tablet CKD stage 3b, GFR 30-44 ml/min ([facility]/HCC) Adrenal insufficiency ([facility]) BP low but stable and follow with endo. documented in this encounter [facility] 01-01-2025 Telephone encounter Note [facility] [place] for this medication. JN [facility] 01-01-2025 Miscellaneous Notes [facility] [place] for this medication. JN documented in this encounter [facility] 09-26-2024 History of Present illness Narrative Associated Problem(s): Pneumonia due to infectious organism Recent infection but improved. Monitor. Associated Problem(s): Muscle spasm of back Frequent spasms and start flexeril. Use heat or massage PRN. Images from the original note were not included. Subjective Patient ID: Yoel Van is a 69 y.o. male who presents for Follow-up ([facility] er f/u). Hospital follow up from [...] 10 MG tablet documented in this encounter [facility] 09-06-2024 History of Present illness Narrative Associated Problem(s): GERD (gastroesophageal reflux disease) Symptoms controlled with protonix and continue. Associated Problem(s): Insomnia Sleeping well with medication and continue. Associated Problem(s): Type 2 diabetes mellitus with diabetic polyneuropathy, without long-term current use of insulin (CMS/HCC) Symptoms tolerable with medication and continue. Associated [...] ADLs to patient. documented in this encounter [facility] 09-26-2022 Note Indication: Abdomina l wall abscess. [...] authenticated by: MELODIE DUNLAP Date: 2022-09-26 14:17 [facility] 05-03-2021 History of Present illness Narrative Images from the original note were not included. [facility] Progress Note Date: 05/02/2021 Patient name: Yoel [...] vessel has 40% stenosis OM has proximal FLOTATION OPERATOR and supplied by [employer] on Mid [...] CAD s/p stents to RCA and circumflex, FLOTATION OPERATOR obtuse branch at [facility] years ago 3. Thoracic aortic aneurysm about [...] Active Problem List: Acute cerebrovascular accident (CVA) ([facility]) Intraparenchymal hemorrhage of brain ([facility]) Acute ischemic stroke ([facility]) Memory impairment NSTEMI (non-ST elevated myocardial infarction) ([facility]) Altered mental status DM (diabetes mellitus), type 2 ([facility]) Discitis of lumbosacral region Hypokalemia Hypomagnesemia [...] sign off. Follow up in 2 weeks [facility] [phone] Images from the original note were not [...] assess Fluid Accumulation: No significant fluid accumulation Sheeter Waxer Operator Strength: Not Performed Estimated Daily Nutrient Needs: Energy (kcal): 1.2-1.3 ~> 9997-3931 kcals/d; Weight Used for Energy Requirements: Current Protein (g): 1.2-1.3 gm/kg ~> 97-105 gms/d; Weight Used for Protein Requirements: Anza Fluid (ml/day): 2700 mLs/d OR per MD discretion; Method Used for Fluid Requirements: (NCM) Nutrition Related Findings: BM 04/30; glucose 163; meds reviewed Wounds: None Current Nutrition Therapies: Diet NPO Anthropometric Measures: Height: 6' (182.9 cm) Current Body Weight: 223 lb (101.2 kg) (stated) Anza Body Weight: 178 lbs; % Anza Body Weight 125.3 % BMI: 30.2 BMI [...] Discharge Planning: Too soon to determine Contact: [phone] Images from the original note were not included. [facility] Progress Note Date: 05/02/2021 Patient name: Yoel [...] CAD s/p stents to RCA and circumflex, FLOTATION OPERATOR obtuse branch at [facility] years ago 3. Thoracic aortic aneurysm about [...] Neurology approved for patient to go on help desk team leader DAPT. 6. Plan for PCI of LCx today. Patient has been NPO since midnight. I have discussed risks (including but not limited to vascular injury, infection, hematoma, contrast induced kidney dysfunction, CVA and CA) with both patient and his . The benefits and alternatives discussed in detail. All questions answered. Patient agrees to proceed. [facility] [phone] Images from the original note were not included. [facility] Internal Medicine Teaching Residency Program Inpatient Daily Progress Note Patient: Yoel Van Date of : 1955 Acct: [id number] Room: Admit date: 04/24/2021 Today's date: 05/02/21 [...] and ASA NSTEMI (non-ST elevated myocardial infarction) ([facility] [...] GI ppx: Protonix PT/OT/SW- Onboard Discharge Planning: reservation manager consulted, will follow up Gee Parnell MD Internal Medicine Resident, PGY-1 [facility]; [place], [place] 05/02/2021, 7:40 AM Attending Physician Statement [...] from the original note were not included. [facility] Internal Medicine Teaching Residency Program Inpatient Daily Progress Note Patient: Yoel Van Date of : 1955 Acct: [id number] Room: Admit date: 04/24/2021 Today's date: 05/01/21 [...] Max:98.4 F (36.9 C) In: 448.9 Out: 1940 [Urine:1940] Physical Exam: Constitutional: This is a [...] chloride heparin (PORCINE) Infusion 15 Units/kg/hr (05/01/21 0290) PRN Medicationspotassium chloride, 40 mEq, PRN Or [...] / PLAN: Active Problems: Acute ischemic stroke ([facility]) NSTEMI (non-ST elevated myocardial infarction) ([facility]) Altered mental status DM (diabetes mellitus), type 2 ([facility]) Discitis of lumbosacral region Hypokalemia Hypomagnesemia [...] GI ppx: Protonix PT/OT/SW- Onboard Discharge Planning: reservation manager consulted, will follow up Gee Parnell MD Internal Medicine Resident, PGY-1 [facility]; [place], [place] 05/01/2021, 2:58 PM Attending Physician Statement [...] resumed Discharge planning initiated Physical Therapy Facility/Department: [facility] 2 Initial Assessment NAME: Yoel Van : [...] Ambulation Assistance: Independent Transfer Assistance: Independent Active Gas Welding Equipment Mechanic: No Patient's Gas Welding Equipment Mechanic Info: does all driving 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 [facility] Progress Note Date: 05/01/2021 Patient name: Yoel [...] 15 Units/kg/hr (05/01/21 0744) CBC: Recent Labs 04/29/21 0325 05/01/21 0513 WBC 7.5 7.3 HGB 12.4* 12.6* [...] CAD s/p stents to RCA and circumflex, FLOTATION OPERATOR obtuse branch at [facility] years ago 3. Thoracic aortic aneurysm about [...] neurology approval for patient to go on help desk team leader DAPT prior to proceeding with high risk PCI. 6. If okay will plan for PCI of LCx tomorrow per Dr. Norton review of films and plan for staged approach. Patient and his were updated on a possible staged approach and they are agreeable with the plan. 7. Will make NPO after midnight. [facility] [phone] Images from the original note were not [...] Data: Lab Results: CBC: Recent Labs 04/29/21 0325 05/01/21 0513 WBC 7.5 7.3 HGB 12.4* 12.6* [...] INR 1.0 04/24/2021 LABA1C 7.5 (H) 04/25/2021 [id number] 04/25/2021 Diagnostic data reviewed: CT HEAD [...] to ensure the accuracy of this automated cuff folder, some errors in cuff folder may have occurred. Associated attestation - Elisa Larsen MD - 05/01/2021 7:44 PM EDT Attending Physician Statement I have discussed the case of Yoel Van including pertinent history and exam findings with the resident/ MACHINE SHOP APPRENTICE. I have seen and examined the patient and the burnett elements of the encounter have been performed by me. I agree with the assessment, plan and orders as documented by the resident or MACHINE SHOP APPRENTICE with changes made to the note. Briefly, [...] you. Elisa Larsen MD 05/01/2021 7:41 PM [facility] Neurology IN-PATIENT SERVICE [facility] HISTORY AND PHYSICAL EXAMINATION Date: 04/30/2021 Patient name: Yoel Van Date of admission: 04/24/2021 9:50 PM Account: [id number] Date of : 1955 PCP: Alec Pinzon MD Room: [facility]/1015-01 Code Status: Full Code Chief Complaint: Chief [...] Right achilles: 2+ Left achilles: 2+ Right test driver: 2+ Left test driver: 2+ Investigations: Laboratory Testing: Recent Results (from [...] history and exam findings with the resident/ MACHINE SHOP APPRENTICE. I have seen and examined the patient and the burnett elements of the encounter have been performed by me. I agree with the assessment, plan and orders as documented by the resident or MACHINE SHOP APPRENTICE with changes made to the note. Briefly, [...] from the original note were not included. [facility] Internal Medicine Teaching Residency Program Inpatient Daily Progress Note Patient: Yoel Van Date of : 1955 Acct: [id number] Room: 1015/1015-01 Admit date: 04/24/2021 Today's date: [...] GI ppx: Protonix PT/OT/SW- Onboard Discharge Planning: reservation manager consulted, will follow up Gee Parnell MD Internal Medicine Resident, PGY-1 [facility]; [place], [place] 04/30/2021, 7:23 AM Attending Physician Statement [...] the original note were not included. [facility] Progress Note Date: 04/30/2021 Patient name: Yoel [...] CAD s/p stents to RCA and circumflex, FLOTATION OPERATOR obtuse branch at [facility] years ago 3. Thoracic aortic aneurysm about [...] of care managed per Primary Team. Jonathan Ken MD Cardiovascular Fellow PGY-4 04/30/2021, 7:18 AM [...] With changes made to the note. . [facility] [phone] Images from the original note were not [...] the original note were not included. [facility] Progress Note Date: 04/29/2021 Patient name: Yoel aVn Date of admission: 04/24/2021 9:50 PM Date of : 1955 PCP: Alec Pinzon MD Reason for Admission: NSTEMI (non-ST elevated myocardial infarction) ([facility]) [I21.4] Subjective: Postop day 1 of cardiac [...] CAD s/p stents to RCA and circumflex, FLOTATION OPERATOR obtuse branch at [facility] years ago Thoracic aortic aneurysm about 4.4 [...] of care managed per Primary Team. Jonathan Ken MD Cardiovascular Fellow PGY-4 04/29/2021, 9:28 AM Attending Us Marketing Director Addendum: I have reviewed and performed the history, physical, subjective, objective, assessment, and plan with the student/resident/fellow/THERMAL SPRAY OPERATOR and agree with the note. I performed the history and physical personally. I have made changes to the note above as needed. Await CTS recs Stop plavix Start ASA if okay with all Continue heparin drip Thank you for allowing me to participate in the care of this patient, please do not hesitate to call if you have any questions. Marcello Cole DO, FACC, SARA, JOANNA [facility] Images from the original note were not included. [facility] Occupational Therapy Not Seen Note DATE: 04/29/2021 NAME: Yoel Van : 1955 Patient not seen this date for Occupational Therapy due to: Other: await cardiothoracic surgery consult Next Scheduled Treatment: check back 04/30/2021 [facility] Neurology IN-PATIENT SERVICE [facility] HISTORY AND PHYSICAL EXAMINATION Date: 04/29/2021 Patient name: Yoel Van Date of admission: 04/24/2021 9:50 PM Account: [id number] Date of : 1955 PCP: Alec Pinzon MD Room: [address] [place] [address] Code Status: Full Code Chief Complaint: Chief [...] C) Recent Labs 04/28/21 1142 04/28/21 1638 04/28/21205104/29/21 0800 POCGLU 190* 202* 182* 163* Intake/Output [...] Right achilles: 2+ Left achilles: 2+ Right test driver: 2+ Left test driver: 2+ Investigations: Laboratory Testing: Recent Results (from [...] history and exam findings with the resident/ MACHINE SHOP APPRENTICE. I have seen and examined the patient and the burnett elements of the encounter have been performed by me. I agree with the assessment, plan and orders as documented by the resident or MACHINE SHOP APPRENTICE with changes made to the note. Briefly, [...] from the original note were not included. [facility] Internal Medicine Teaching Residency Program Inpatient Daily Progress Note Patient: Yoel Van Date of : 1955 Acct: [id number] Room: 101/1015-01 Admit date: 04/24/2021 Today's date: 04/29/21 Number [...] GI ppx: Protonix PT/OT/SW- Onboard Discharge Planning: reservation manager consulted, will follow up Gee Parnell MD Internal Medicine Resident, PGY-1 [facility]; [place], [place] 04/29/2021, 7:58 AM Patient seen and [...] imaging in the future Infection Control Recommendations: [place] precautions Discharge Planning: Patient will need Midline [...] No new imaging Cultures: Culture, Blood 1 [[id number]] Collected: 04/25/212032 Order Status: Completed Specimen: Blood Updated: 04/28/21918 Specimen Description .BLOOD Special Requests R ARM 1 ML Culture NO GROWTH 3 DAYS Culture, Blood 1 [[id number]] Collected: 04/25/212032 Order Status: Completed Specimen: Blood Updated: 04/28/21918 Specimen Description .BLOOD Special Requests L ARM 2 ML Culture NO GROWTH 3 DAYS COVID-19, Rapid [[id number]] Collected: 04/25/21 004 Order Status: Completed Specimen: [...] management decisions. Fact sheet for Healthcare Providers: https://www.fda.gov/media/228354/d ownload Fact sheet for Patients: https://www.fda.gov/media/646354/d ownload Methodology: Isothermal Nucleic Acid Amplification Medications: [...] [facility] Zandra Pink MD [facility] OFFICE: Thank you for allowing us to [...] original note were not included. Occupational Therapy [facility] Occupational Therapy Not Seen Note DATE: 04/28/2021 NAME: Yoel Van : 1955 Patient not seen this date for Occupational Therapy due to: Surgery/Procedure: cardiac cath Next Scheduled Treatment: 04/29 Echo completed in the echo lab Images from the original note were not included. [facility] Pre-Procedure Conscious Sedation Data Pre Procedure Conscious Sedation Data: ASA Class: [] I [x] II [] III [] IV Mallampati Class: [] I [x] II [] III [] IV Jing Ken MD Fellow Cardiovascular Disease [facility] Images from the original note were not included. [facility] Progress Note Date: 04/28/2021 Patient name: Yoel [...] the last 72 hours. Troponin: Recent Labs 04/25/21 2033 04/26/21 0023 04/26/21 0655 TROPHS 187* 199* 267* [...] CAD s/p stents to RCA and circumflex, FLOTATION OPERATOR obtuse branch at [facility] man years ago 3. Thoracic aortic aneurysm [...] of Treatment: 1. NSTEMI with elevated troponin. [phone] Plan for cardiac cath today per Dr Dumont. I have discussed risks (including but not limited to vascular injury, infection, hematoma, contrast induced kidney dysfunction, CVA and CA), benefits, alternatives in detail. All questions answered. Patient agrees to proceed. manager cath lab update. 2. Awaiting ECHO with Bubble study. [...] Rest of care managed per Primary Team. [facility] [employer] [phone] Report given to Radha [facility] Neurology IN-PATIENT SERVICE [facility] HISTORY AND PHYSICAL EXAMINATION Date: 04/28/2021 Patient name: Yoel Van Date of admission: 04/24/2021 9:50 PM Account: [id number] Date of : 1955 PCP: Alec Pinzon MD Room: 42/0542-01 Code Status: Full Code Chief Complaint: Chief [...] Right achilles: 2+ Left achilles: 2+ Right test driver: 2+ Left test driver: 2+ Investigations: Laboratory Testing: Recent Results (from [...] 7:40 AM Copy sent to Dr. Alec Pnizon MD Associated attestation - Elisa Larsen MD - 04/28/2021 4:08 PM EDT Attending Physician Statement I have discussed the case of Yoel Van including pertinent history and exam findings with the resident/ MACHINE SHOP APPRENTICE. I have seen and examined the patient and the burnett elements of the encounter have been performed by me. I agree with the assessment, plan and orders as documented by the resident or MACHINE SHOP APPRENTICE with changes made to the note. Briefly, [...] from the original note were not included. [facility] Internal Medicine Teaching Residency Program Inpatient Daily Progress Note Patient: Yoel Van Date of : 1955 Acct: [id number] Room: [address] [place] [address] Admit date: 04/24/2021 Today's date: 04/28/21 Number [...] chloride heparin (PORCINE) Infusion 15.78 Units/kg/hr (04/28/21 7705) PRN Medicationspotassium chloride, 40 mEq, PRN Or [...] GI ppx: Protonix PT/OT/SW- Onboard Discharge Planning: reservation manager consulted, will follow up Gee Parnell MD Internal Medicine Resident, PGY-1 [facility]; [place], [place] 04/28/2021, 11:27 AM Attending Physician Statement [...] from the original note were not included. [facility] Internal Medicine Teaching Residency Program Inpatient Daily Progress Note Patient: Yoel Van Date of : 1955 Acct: [id number] Room: 0542/0542-01 Admit date: 04/24/2021 Today's date: [...] GI ppx: Protonix PT/OT/SW- Onboard Discharge Planning: reservation manager consulted, will follow up Gee Dewey MD Internal Medicine Resident, PGY-2 [facility]; [place], [place] 04/27/2021, 1:38 PM Attending Physician Statement [...] deficit. The risk of intracranial hemorrhage versus CA was discussed with the patient in regards [...] Right achilles: 2+ Left achilles: 2+ Right test driver: 2+ Left test driver: 2+ Lab Results: CBC: Recent Labs 04/24/21222004/25/21 1329 04/27/21 0311 WBC 10.0 6.7 7.9 HGB 14.5 13.8 12.9* PLT 249 195 223 BMP: Recent Labs 04/24/21222004/26/21 0023 07/11/21 0311 NA 134* 137 136 K 3.7 3.6* 3.5* CL 99 102 103 CO2 19* 23 22 BUN 18 9 11 CREATININE 0.82 0.53* 0.80 GLUCOSE 130* 249* 189* Lab Results Component Value Date CHOL 112 04/26/2021 LDLCHOLESTEROL 51 04/26/2021 HDL 25 (L) 04/26/2021 TRIG 181 (H) 04/26/2021 TSH 1.04 04/25/2021 INR 1.0 04/24/2021 LABA1C 7.5 (H) 04/25/2021 INPLOYVV66 594 04/25/2021 No results found for: PHENYTOIN, [...] MD PGY-1 Resident Associated attestation - Fanta Ken MD - 04/27/2021 5:07 PM EDT Attending [...] team We will continue to follow Fanta Ken MD Attending Neurologist [facility] Images from the original note were not included. [place] [facility] Progress Note Date: 04/27/2021 Patient name: Yoel Van Date of admission: 04/24/2021 9:50 PM Date of : 1955 PCP: Alec Pinzon MD Reason for Admission: NSTEMI (non-ST elevated myocardial infarction) (HCC) [I21.4] Subjective: Clinical Changes /Abnormalities: Patient seen and examined in room with at bedside after discussion with JAMILAH. Albertoies chest pain or SOB. SR on HR [...] 0846) CBC: Recent Labs 04/24/21222004/25/21 1329 04/27/21 031 WBC 10.0 6.7 7.9 HGB 14.5 13.8 [...] CAD s/p stents to RCA and circumflex, FLOTATION OPERATOR obtuse branch at [facility] man years ago 3. Thoracic aortic aneurysm [...] of Treatment: 1. NSTEMI with elevated troponin. [phone] Plan for cardiac cath on Wednesday per [...] that neurology will discuss with cardiology tomorrow. [place] [facility] [employer]. [phone] Paged Neurology at 22:19 regarding heparin drip and whether or not patient is appropriate for heparin boluses or just adjust medication through infusion. Messaged with Leonardo Jeter MD who deferred to Primary team. I then messaged the on-call Internal Medicine Elementary Teacher who deferred to Cardiology. I sent Cardiology [...] use, normal respirations Neuro: Difficult coordination with [id number]-[id number]-vsrr. No arm drift. BUE and BLE with [...] patients neurologic status Jair Jaeger DO, PGY-5 [facility] Orthopedic Surgery 1:33 PM 04/26/21 Associated [...] intact to light touch Does well with [id number]-zh-ddfd testing. Gait testing deferred. Imaging: I personally [...] MRI at L5-S1 is felt to be route service representative of infection I would recommend an IR biopsy for culture, though he does not seem to be symptomatic and his WBC count is normal. Physician Progress Note PATIENT: YOEL VAN CSN #: [id number] : 1955 ADMIT DATE: 04/24/2021 9:50 PM [...] signed by: GEE PARNELL 04/26/2021 8:22 AM [facility] Neurology IN-PATIENT SERVICE [facility] HISTORY AND PHYSICAL EXAMINATION Date: 04/26/2021 Patient name: Yoel Van Date of admission: 04/24/2021 9:50 PM Account: [id number] Date of : 1955 PCP: Alec Pinzon MD Room: [facility]/0542- Code Status: Full Code Chief Complaint: Chief [...] Right achilles: 2+ Left achilles: 2+ Right test driver: 2+ Left test driver: 2+ Investigations: Laboratory Testing: Recent Results (from [...] NEGATIVE Ketones, Urine TRACE (A) NEGATIVE Specific [place], UA 1.012 1.005 - 1.030 Urine Hgb [...] ms QTc Calculation (Bazett) 462 ms P [place] 48 degrees R [place] -20 degrees T [place] 89 degrees Assessment : Primary Problem <principal problem not specified> Active Hospital Problems Diagnosis Date Noted NSTEMI (non-ST elevated myocardial infarction) ([facility]) [I21.4] 04/25/2021 Altered mental status [R41.82] 65 [...] Alec Pinzon MD Associated attestation - Fanta Ken MD - 04/27/2021 4:54 PM EDT Attending [...] team We will continue to follow Fanta Ken MD Attending Neurologist [facility] Images from the original note were not included. [facility] Internal Medicine Teaching Residency Program Inpatient Daily Progress Note Patient: Yoel Van Date of : 1955 Acct: [id number] Room: 0542/0542-01 Admit date: 04/24/2021 Today's date: [...] chloride heparin (PORCINE) Infusion 13.783 Units/kg/hr (04/25/21 2234) PRN Medicationslabetalol, 20 mg, Q4H PRN sodium [...] CBC: Recent Labs 04/24/21 2221 04/25/21 1329 WBC 10.0 6.7 RBC 4.85 4.49 [...] gtt GI ppx: Protonix PT/OT/SW Discharge Planning: reservation manager consulted, will follow up Gee Parnell MD Internal Medicine Resident, PGY-1 [facility]; [place], [place] 04/26/2021, 3:10 AM Attending Physician Statement [...] noticed. MRI pending. It was reported to automobile and property underwriter that MRI's were attempted earlier in [...] Problem List Diagnosis Acute cerebrovascular accident (CVA) ([facility]) Intraparenchymal hemorrhage of brain (HCC) Cerebrovascular accident (CVA) due to embolism of precerebral artery (HCC) Memory impairment Assessment/Plan: No indication for additional images to assess for traumatic injuries from trauma surgery standpoint. Neurosurgery: MRI pending. Cardiology for NSTEMI Trauma surgery will sign off at this time. documented in this encounter [email or web address] Phone: 05-02-2021 Hospital Discharge instructions Ana Chery [...] Jessica Garcia Mobile Relation: Spouse Preferred language: Kosovan Inspector Aligning needed? No Past Surgical History: Past Surgical [...] of brain (HCC) I61.9 Acute ischemic stroke ([facility]) I63.9 Memory impairment R41.3 NSTEMI (non-ST elevated myocardial infarction) ([facility]) I21.4 Altered mental status R41.82 DM (diabetes mellitus), type 2 (HCC) E11.9 Discitis of lumbosacral region M46.47 Hypokalemia [...] MENTAL STATUS:} IV Access: { SYDNEE IV ACCESS:268207446} Nursing Mobility/ADLs: Walking {CHP DME ADLs:508085083} Transfer {P DME ADLs:605022442} Bathing {P DME ADLs:127635273} Dressing {CHP DME ADLs:298094764} Toileting {CHP DME ADLs:644290526} Feeding {P DME ADLs:715063535} Media Liaison Officer {[facility] DME ADLs:338837892} Med Delivery { SYDNEE MED Delivery:947126615} Wound Care Documentation and Therapy: Elimination: Continence: Bowel: {YES / NO:} Bladder: {YES / NO:} Urinary Catheter: {Urinary Catheter:122827520} Colostomy/Ileostomy/Ileal Conduit: {YES / NO:} Date of Last BM: Intake/Output Summary (Last 24 hours) at 05/02/2021 1719 Last data filed at 05/02/2021 0736 Gross per 24 hour Intake Output 1600 ml Net -1600 ml I/O last 3 completed shifts: In: 44.4 [I.V.:44.4] Out: 2390 [Urine:2390] Safety Concerns: { SYDNEE Safety Concerns:354049040} Impairments/Disabilities: { SYDNEE Impairments/Disabilities:678374971 } Nutrition Therapy: Current Nutrition Therapy: { SYDNEE Diet List:512629946} Routes of Feeding: {CHP DME Other Feedings:741650400} Liquids: {Adjusto Writer Operator liquid thickness:51246} Daily Fluid Restriction: {CHP DME Yes amt example:274879694} Last Modified Barium Swallow with Video (Video Swallowing Test): {Done Not Done Date:} Treatments at the Time of Hospital Discharge: Respiratory Treatments: Oxygen Therapy: {Therapy; copd oxygen:69322} Ventilator: {[facility] Vent List:451876703} Rehab Therapies: Physical Therapy and Occupational Therapy Weight Bearing Status/Restrictions: {[facility] Weight Bearin} Other Medical Equipment (for information only, NOT a DME order): {EQUIPMENT:128968192} Other Treatments: chcf eval and treat Patient's personal belongings (please select all that are sent with patient): {[facility] DME Belongings:944922775} RN SIGNATURE: {Esignature:238485696} CASE MANAGEMENT/SOCIAL WORK SECTION Inpatient Status Date:04-25-2021 Readmission Risk Assessment Score: Readmission Risk Risk of Unplanned Readmission: 17 Discharging to Facility/ Agency Name: Address: Phone: Fax: Dialysis Facility (if applicable) Name: Address: Dialysis Schedule: Phone: Fax: Corporate Planner/Edge Banding Off Bearer signature: {Esignature:047588549} PHYSICIAN SECTION Prognosis: Good Condition at Discharge: Stable Rehab Potential (if transferring to Rehab): {Prognosis:3490466638} Recommended Labs or Other Treatments After Discharge: [...] H&P: No change in H&P PHYSICIAN SIGNATURE: {Esignature:002780702} Ana Lemus MD - 05/03/2021 1. Follow up cardiology in 2 weeks 2. Take medications as prescribed The following attachments cannot be sent through Care Everywhere.PCI (Percutaneous Coronary Intervention): Post-op (Kosovan)documented in this encounter [email or web address] Phone: 10-31-2019 History of Present illness Narrative Physical Therapy Facility/Department: [address] Initial Assessment NAME: Yoel Van : 1955 Date of Service: 10/31/2019 [employer] LUE/LLE weakness, LKW 10/27/2019 HPI The patient is a 64 y.o. male who presents as a transfer from [place] for concern for hemorrhage in the basal [...] using RW, supervises) Transfer Assistance: Independent Active Gas Welding Equipment Mechanic: No Patient's Gas Welding Equipment Mechanic Info: Pt hasn't driven since CVA in [...] using RW, supervises) Transfer Assistance: Independent Active Gas Welding Equipment Mechanic: No Patient's Gas Welding Equipment Mechanic Info: Pt hasn't driven since CVA in [...] to sit: Supervision Cognition Overall Cognitive Status: [facility] Cognition Comment: Slow to respond at times, likely pt's baseline, answering for pt often Sensation Overall Sensation Status: WFL LUE AROM (degrees) LUE AROM : Exceptions L Shoulder Flexion 0-180: Limited to 90 degrees, baseline rotator cuff issues L Elbow Flexion 0-145: WFL's L Elbow Extension 145-0: WFL's RUE AROM (degrees) RUE AROM : WFL LUE Strength Gross LUE Strength: Exceptions to WFL L Shoulder Flex: 3-/5(At baseline) L Elbow Flex: 4+/5 L Elbow Ext: 4/5(Weaker as a result of CVA per pt) L Hand General: 4+/5 RUE Strength Gross RUE Strength: WFL R Hand General: 5/5 [facility] Inpatient Daily Activity Raw Score: 20 (10/31/19 125) [facility] Inpatient ADL T-Scale Score : 42.03 (10/31/19 125) ADL Inpatient [facility] 0-100% Score: 38.32 (10/31/19 1253) ADL Inpatient [facility] G-Code Modifier : CJ (10/31/19 125) Goals Short term goals Time Frame for Short term goals: OT eval and d/c d/t pt at baseline Therapy Time Individual Concurrent Group Co-treatment Time In 1100 Time Out 1130 Minutes 30 SHANI Vásquez/Alber documented in this encounter [email or web address] Phone: 10-31-2019 Hospital Discharge instructions Barbara Perea, DO - 10/31/2019 Please do not take your aspirin or Plavix until after being seen in follow-up with Dr. Aguiar of neurology on 11/07/2019. Please [address] your CT head done next 10/30/2019. documented in this encounter [email or web address] Phone: Evaluation note Diagnosis Altered mental status, [...] Coronary atherosclerosis of unspecified type of vessel, elim ira or graft S/P PTCA/FLORESITA to mid LCX (Dr Bojorquez) Postsurgical percutaneous transluminal coronary angioplasty status documented in this encounter [email or web address] Phone: evaluation note* Diagnosis Intraparenchymal hemorrhage of brain (HCC)- Primary Intracerebral hemorrhage Acute cerebrovascular accident (CVA) (HCC) documented in this encounter [email or web address] Phone: evaluation note* Diagnosis Intraparenchymal hemorrhage of brain (HCC) Intracerebral hemorrhage documented in this encounter [email or web address] Phone: evaluation note* Diagnosis Type 2 diabetes mellitus with diabetic polyneuropathy ([facility]) documented in this encounter [facility] HealthcareEvaluation note* Diagnosis Type 2 diabetes mellitus with hyperglycemia, without long-term current use of insulin ([facility])- Primary Benign essential hypertension ([facility]) Essential hypertension, benign Type 2 diabetes mellitus with diabetic polyneuropathy, without long-term current use of insulin ([facility]) Thoracic aortic aneurysm without rupture, unspecified part ([facility]) Insomnia, unspecified type CAD, multiple vessel ([facility]) Gastroesophageal reflux disease without esophagitis Esophageal reflux [...] diabetic polyneuropathy (CMS/HCC) documented in this encounter [facility] HealthcareEvaluation note* Diagnosis Type 2 diabetes [...] esophagitis Esophageal reflux documented in this encounter [facility] HealthcareEvaluation note* Diagnosis Type [...] diabetic polyneuropathy (CMS/HCC) documented in this encounter [facility] HealthcareEvaluation note* Diagnosis Type 2 diabetes [...] spasm of back documented in this encounter [facility] HealthcareEvaluation note* Diagnosis Type 2 diabetes mellitus with diabetic polyneuropathy (HCC) (CMS/HCC) documented in this encounter [facility] HealthcareEvaluation note* Diagnosis Type 2 diabetes mellitus with hyperglycemia, without long-term current use of insulin (CMS/HCC)- Primary Benign essential hypertension (CMS/HCC) Essential hypertension, benign Type 2 diabetes mellitus with diabetic polyneuropathy, without long-term current use of insulin ([facility]/HCC) Thoracic aortic aneurysm without rupture, unspecified part [...] without long-term current use of insulin (HCC) ([facility]/HCC) Hemiplegia and hemiparesis following cerebral infarction affecting [...] polyneuropathy (CMS/HCC) documented in this encounter [facility] HealthcareEvaluation note* [...] without long-term current use of insulin (HCC) ([facility]/HCC) Hemiplegia and hemiparesis following cerebral infarction affecting [...] back Type 2 diabetes mellitus with diabetic polyneuropathy, without long-term current use of insulin (CMS/HCC) documented in this encounter [facility] HealthcareEvaluation note* Diagnosis Type 2 diabetes [...] 30-44 ml/min (CMS/HCC) PVD (peripheral vascular disease) ([facility]/HCC) Unspecified peripheral vascular disease Type 2 diabetes mellitus with stage 3b chronic kidney disease, without long-term current use of insulin (HCC) ([facility]) Hemiplegia and hemiparesis following cerebral infarction affecting right dominant side (I69.351) Type 2 diabetes mellitus with hyperglycemia, without long-term current use of insulin (CMS/HCC)- Primary Adrenal insufficiency (CMS/HCC) Glucocorticoid deficiency Benign essential hypertension (CMS/HCC) Essential hypertension, benign Type 2 diabetes mellitus with diabetic polyneuropathy, without long-term current use of insulin ([facility]/HCC) 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 ([facility]) Primary insomnia Persistent disorder of initiating or maintaining sleep Gastroesophageal reflux disease without esophagitis Esophageal reflux Pneumonia due to infectious organism, unspecified laterality, unspecified part of lung- Primary Muscle spasm of back Type 2 diabetes mellitus with diabetic polyneuropathy (CMS/HCC) documented in this encounter [facility] HealthcareEvaluation note* Diagnosis Type [...] disease, without long-term current use of insulin ([facility]) ([facility]) Hemiplegia and hemiparesis following cerebral [...] of lung- Primary Muscle spasm of back PVD (peripheral vascular disease) ([facility]/HCC) Unspecified peripheral vascular disease documented in this encounter [facility] HealthcareEvaluation note* Diagnosis Type 2 diabetes mellitus with hyperglycemia, without long-term current use of insulin (CMS/HCC)- Primary Benign essential hypertension (CMS/HCC) Essential hypertension, benign Type 2 diabetes mellitus with diabetic polyneuropathy, without long-term current use of insulin ([facility]/HCC) Thoracic aortic aneurysm without rupture, unspecified part [...] diabetic polyneuropathy (CMS/HCC) documented in this encounter [facility] HealthcareEvaluation note* Diagnosis Type 2 diabetes [...] of back Type 2 diabetes mellitus with hyperglycemia, without long-term current use of insulin (CMS/HCC)- Primary Adrenal insufficiency (CMS/HCC) 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, without long-term current use of insulin (CMS/HCC) PVD (peripheral vascular disease) (CMS/HCC) Unspecified peripheral vascular disease CKD stage 3b, GFR 30-44 ml/min (CMS/HCC) Primary insomnia Persistent disorder of initiating or maintaining sleep Type 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 (CMS/HCC) Hemiplegia and hemiparesis following cerebral infarction affecting left non- dominant side (CMS/HCC) documented in this encounter [facility] HealthcareEvaluation note* Diagnosis Type 2 diabetes mellitus with hyperglycemia, without long-term current use of insulin (HCC)- Primary Benign essential hypertension Essential hypertension, benign Type 2 diabetes mellitus with diabetic polyneuropathy, without long-term current use of insulin (HCC) Thoracic aortic aneurysm without rupture, unspecified part Insomnia, unspecified type CAD, multiple vessel Gastroesophageal reflux disease without esophagitis Esophageal reflux Left kidney mass- Primary Unspecified disorder of kidney and ureter Type 2 diabetes mellitus with hyperglycemia, without long-term current use of insulin (HCC) Benign essential hypertension Essential hypertension, benign Type 2 diabetes mellitus with hyperglycemia, without long-term current use of insulin (HCC)- Primary Benign essential hypertension Essential hypertension, benign Type 2 diabetes mellitus with diabetic polyneuropathy, without long-term current use of insulin (HCC) Renal cell carcinoma of left kidney (HCC) Colon cancer screening Special screening for malignant neoplasms, colon Primary insomnia Persistent disorder of initiating or maintaining sleep CKD stage 3b, GFR 30-44 ml/min ([facility]-HCC) PVD (peripheral vascular disease) Unspecified peripheral vascular disease Type 2 diabetes mellitus with stage 3b chronic kidney disease, without long-term current use of insulin (HCC) Hemiplegia and hemiparesis following cerebral infarction affecting right dominant side (I69.351) Type 2 diabetes mellitus with hyperglycemia, without long-term current use of insulin (HCC)- Primary Adrenal insufficiency (HCC) Glucocorticoid deficiency Benign essential hypertension Essential hypertension, benign Type 2 diabetes mellitus with diabetic polyneuropathy, without long-term current use of insulin (HCC) 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 (HCC) Primary insomnia Persistent disorder of initiating or maintaining sleep Gastroesophageal reflux disease without esophagitis Esophageal reflux Pneumonia due to infectious organism, unspecified laterality, unspecified part of lung- Primary Muscle spasm of back Type 2 diabetes mellitus with hyperglycemia, without long-term current use of insulin (HCC)- Primary Adrenal insufficiency (HCC) 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, without long-term current use of insulin (HCC) PVD (peripheral vascular disease) Unspecified peripheral vascular disease CKD stage 3b, GFR 30-44 ml/min ([facility]) Primary insomnia Persistent disorder of initiating or maintaining sleep Type 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 (HCC) Hemiplegia and hemiparesis following cerebral infarction affecting left non- dominant side (HCC) Type 2 diabetes mellitus with diabetic polyneuropathy (HCC) documented in this encounter [facility] HealthcareEvaluation note* Diagnosis Type 2 diabetes mellitus with hyperglycemia, without long-term current use of insulin (HCC)- Primary Benign essential hypertension Essential hypertension, benign Type 2 diabetes mellitus with diabetic polyneuropathy, without long-term current use of insulin (HCC) Thoracic aortic aneurysm without rupture, unspecified part Insomnia, unspecified type CAD, multiple vessel Gastroesophageal reflux disease without esophagitis Esophageal reflux Left kidney mass- Primary Unspecified disorder of kidney and ureter Type 2 diabetes mellitus with hyperglycemia, without long-term current use of insulin (HCC) Benign essential hypertension Essential hypertension, benign Type 2 diabetes mellitus with hyperglycemia, without long-term current use of insulin (HCC)- Primary Benign essential hypertension Essential hypertension, benign Type 2 diabetes mellitus with diabetic polyneuropathy, without long-term current use of insulin (HCC) Renal cell carcinoma of left kidney (HCC) Colon cancer screening Special screening for malignant neoplasms, colon Primary insomnia Persistent disorder of initiating or maintaining sleep CKD stage 3b, GFR 30-44 ml/min ([facility]-HCC) PVD (peripheral vascular disease) Unspecified peripheral vascular disease Type 2 diabetes mellitus with stage 3b chronic kidney disease, without long-term current use of insulin (HCC) Hemiplegia and hemiparesis following cerebral infarction affecting right dominant side (I69.351) Type 2 diabetes mellitus with hyperglycemia, without long-term current use of insulin (HCC)- Primary Adrenal insufficiency (HCC) Glucocorticoid deficiency Benign essential hypertension Essential hypertension, benign Type 2 diabetes mellitus with diabetic polyneuropathy, without long-term current use of insulin (HCC) 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 (HCC) Primary insomnia Persistent disorder of initiating or maintaining sleep Gastroesophageal reflux disease without esophagitis Esophageal reflux Pneumonia due to infectious organism, unspecified laterality, unspecified part of lung- Primary Muscle spasm of back Type 2 diabetes mellitus with hyperglycemia, without long-term current use of insulin (HCC)- Primary Adrenal insufficiency (HCC) 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, without long-term current use of insulin (HCC) PVD (peripheral vascular disease) Unspecified peripheral vascular disease CKD stage 3b, GFR 30-44 ml/min ([facility]) Primary insomnia Persistent disorder of initiating or maintaining sleep Type 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 (HCC) Hemiplegia and hemiparesis following cerebral infarction affecting left non- dominant side (HCC) Type 2 diabetes mellitus with diabetic polyneuropathy (HCC) documented in this encounter [facility] HealthcareEvaluation note* Diagnosis Type 2 diabetes mellitus with hyperglycemia, without long-term current use of insulin (HCC)- Primary Benign essential hypertension Essential hypertension, benign Type 2 diabetes mellitus with diabetic polyneuropathy, without long-term current use of insulin (HCC) Thoracic aortic aneurysm without rupture, unspecified part Insomnia, unspecified type CAD, multiple vessel Gastroesophageal reflux disease without esophagitis Esophageal reflux Left kidney mass- Primary Unspecified disorder of kidney and ureter Type 2 diabetes mellitus with hyperglycemia, without long-term current use of insulin (HCC) Benign essential hypertension Essential hypertension, benign Type 2 diabetes mellitus with hyperglycemia, without long-term current use of insulin (HCC)- Primary Benign essential hypertension Essential hypertension, benign Type 2 diabetes mellitus with diabetic polyneuropathy, without long-term current use of insulin (HCC) Renal cell carcinoma of left kidney (HCC) Colon cancer screening Special screening for malignant neoplasms, colon Primary insomnia Persistent disorder of initiating or maintaining sleep CKD stage 3b, GFR 30-44 ml/min ([facility]) PVD (peripheral vascular disease) Unspecified peripheral vascular disease Type 2 diabetes mellitus with stage 3b chronic kidney disease, without long-term current use of insulin (HCC) Hemiplegia and hemiparesis following cerebral infarction affecting right dominant side (I69.351) Type 2 diabetes mellitus with hyperglycemia, without long-term current use of insulin (HCC)- Primary Adrenal insufficiency (HCC) Glucocorticoid deficiency Benign essential hypertension Essential hypertension, benign Type 2 diabetes mellitus with diabetic polyneuropathy, without long-term current use of insulin (HCC) 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 (HCC) Primary insomnia Persistent disorder of initiating or maintaining sleep Gastroesophageal reflux disease without esophagitis Esophageal reflux Pneumonia due to infectious organism, unspecified laterality, unspecified part of lung- Primary Muscle spasm of back Type 2 diabetes mellitus with hyperglycemia, without long-term current use of insulin (HCC)- Primary Adrenal insufficiency (HCC) 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, without long-term current use of insulin (HCC) PVD (peripheral vascular disease) Unspecified peripheral vascular disease CKD stage 3b, GFR 30-44 ml/min ([facility]) Primary insomnia Persistent disorder of initiating or maintaining sleep Type 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 (HCC) Hemiplegia and hemiparesis following cerebral infarction affecting left non- dominant side (HCC) Type 2 diabetes mellitus with diabetic polyneuropathy, without long-term current use of insulin (HCC) documented in this encounter [facility] HealthcareEvaluation note* Diagnosis Onset Date Resolution Status Admit Date Adrenal insufficiency acute Sep 2024 10:37am 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 acute Se pt2024 10:37am Hyperglycemia due to type 2 diabetes mellitus acute June 10:37am Insomnia acute June 10:37am PVD (peripheral vascular disease) acute July 12, 2025 10:37am Trigger finger, right middle finger acute July 12, 2025 10:37am Type 2 diabetes mellitus wit h diabetic polyneuropathy, without long-term cu acute June 192024 10:37am [facility] Work Phone: Reason for referral (narrative)No reason for referral information availableMer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 Advance Directives and Living Will Power of Pipe Layer Latest Code Status on File Code Status Date Activated Date Inactivated Comments Full Code 10/31/2019 10:09 AM 10/31/2019 6:29 PM Documents on File Type Date Recorded Patient 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 Advance Directives and Living Will Power of Pipe Layer Latest Code Status on File Code Status Date Activated Date Inactivated Comments Full Code 10/31/2019 10:09 AM 10/31/2019 6:29 PM Documents on File Type Date Recorded Patient 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 ACP-Advance Directive ACP-Power of Pipe Layer Latest Code Status on File Code Status Date Activated Date Inactivated Comments Full Code 05/02/2021 6:05 PM Full Code 04/28/2021 10:45 AM 05/02/2021 6:05 PM Full Code 04/25/2021 7:46 PM 04/28/2021 10:45 AM Full Code 10/31/2019 10:09 AM 10/31/2019 6:29 PM Latest Code Status on File Code Status Date Activated Date Inactivated Comments Full Code 10/31/2019 10:09 AM Advance Directive Response Recorded Date/ Time Advance Directives No June 14, 2025 1:18pm Reason for Referral Status Reason Specialty Diagnoses / Procedures Referre d By Contact Referred To Contact Closed Radiology Diagnoses Cerebrovascular accident (CVA), unspecified mechanism (HCC) Procedures CT HEAD WO CONTRAST HC CT BRAIN W/O CONTRAST Sabrina Aguiar Sa, MD [address] [facility] [address] [place] [address] [facility] [address] [place] [address] Status Reason Specialty Diagnoses / Procedures Referre d By Contact Referred To Contact Closed Diagnoses Cerebrovascular accident (CVA) due to embolism of precerebral artery (HCC) Memory impairment Procedures EEG awake and asleep Andreia Ramos MD [address] [address] Status Reason Specialty Diagnoses / Procedures Referre d By Contact Referred To Contact Closed Cardiology Diagnoses 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) Cerebrovascular accident (CVA) due to embolism of precerebral artery (HCC) Procedures ECHO Complete 2D W Doppler W Color Andreia Ramos MD [address] [address] Status Reason Specialty Diagnoses / Procedures Referre d By Contact Referred To Contact Open Radiology Diagnoses Intraparenchymal hemorrhage of brain (HCC) Procedures CT HEAD WO CONTRAST CT HEAD WO CONTRAST Barbara Perea, DO [address] [place] [address] Status Reason Specialty Diagnoses / Procedures Referre d By Contact Referred To Contact Closed Radiology Diagnoses Intraparenchymal hemorrhage of brain (HCC) Procedures CT HEAD WO CONTRAST CT HEAD WO CONTRAST Barbara Perea, DO [address] [place] [address] Assessments Diagnosis Cerebrovascular accident (CVA), unspecified mechanism [...] underlying condition with diabetic neuropathy, unspecified whether [facility] insulin use (HCC) Cerebrovascular accident (CVA) due to embolism of precerebral artery (HCC) Memory impairment Memory loss Diagnosis 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) Cerebrovascular accident (CVA) due to embolism of precerebral artery (HCC) History of Present Illness * Yoselyn Pedro - 05/08/2020 10:45 AM EDT 22g IV inserted Jose White by automobile and property underwriter, used for bubble study documented in this encounter Chief Complaint and Reason for Visit Chief Complaint Admit Date Established Patient July 12, 2025 10:37am Reason for Visit Admit Date Adrenal insufficiency July 12 10:37am Hemiparesis of left nondomin ant side as late effect of cerebral infarction July 12, 2025 10:37am Hyperglycemia due to type 2 diabetes [place] litus July 12, 2025 10:37am Insomnia July 12, 2025 10:37am PVD (peripheral vascular disease) Septem 2024 10:37am Trigger finger, right middle finger Sept ember 2024 10:37am Type 2 diabetes mellitus wit h diabetic polyneuropathy, without long-term cu July 12, 2025 10:37am Additional Source Comments (unrecognized sect ion and content) No Status Records FoundNo Status Records FoundNo Status Records FoundNo Status Records FoundNo Status Records FoundNo Status Records FoundNo Status Records Found INFORMATION SOURCE (unrecogn ized section and content) DATE CREATED AUTHOR 04/27/2018 [facility] DATE CREATED AUTHOR AUTHOR'S ORGANIZ ATION 05/16/2020 [facility] DATE CREATED AUTHOR AUTHOR'S ORGANIZ ATION 05/11/2021 [facility] DATE CREATED AUTHOR AUTHOR'S ORGANIZ ATION 01/20/2023 [facility] DATE CREATED AUTHOR AUTHOR'S ORGANIZ ATION 10/18/2023 [facility] DATE CREATED AUTHOR AUTHOR'S ORGANIZ ATION 03/22/2025 [facility] DATE CREATED AUTHOR AUTHOR'S ORGANIZ ATION 08/01/2025 [facility] Reason for Visit (unrecogniz ed section and content) Status Reason Specialty Diagnoses / Procedures Referre d By Contact Referred To Contact Closed Radiology Diagnoses Cerebrovascular accident (CVA), unspecified mechanism (HCC) Procedures CT HEAD WO CONTRAST HC CT BRAIN W/O CONTRAST Sabrina Aguiar Sa, MD [address] [address] [facility] [address] [place] [address] Status Reason Specialty Diagnoses / Procedures Referre d By Contact Referred To Contact Closed Diagnoses Cerebrovascular accident (CVA) due to embolism of precerebral artery (HCC) Memory impairment Procedures EEG awake and asleep Andreia Ramos MD [address] [address] Status Reason Specialty Diagnoses / Procedures Referre d By Contact Referred To Contact Closed Cardiology Diagnoses 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) Cerebrovascular accident (CVA) due to embolism of precerebral artery (HCC) Procedures ECHO Complete 2D [place] [address] [place] [address] Reason Comments Altered Mental Status Status Reason Specialty Diagnoses / Procedures Referre d By Contact Referred To Contact [facility] Reason Comments Cerebrovascular Accident tx from [facility] Status Reason Specialty Diagnoses / Procedures Re ferred By Contact Referred To Contact Diagnoses Acute cerebrovascular accident (CVA) (HCC) Bennie Bosch MD [address] [facility] [address] [address] [facility] Status Reason Specialty Diagnoses / Procedures Referre d By Contact Referred To Contact Closed Radiology Diagnoses Intraparenchymal hemorrhage of brain (HCC) Procedures CT HEAD WO CONTRAST CT HEAD WO CONTRAST Barbara Perea DO [address] [place] [address] Reason Onset Date Comments Med Refill 07/26/2024 Reason Onset Date Comments Med Refill 08/22/2024 Reason Comments Follow-up 6 m Reason Onset Date Comments Med Refill 09/18/2024 Reason Comments Follow-up Tb er f/u Reason Onset Date Comments Med Refill 06/28/2024 Reason Onset Date Comments Med Refill 10/16/2024 Reason Onset Date Comments Med Refill 11/09/2024 Reason Onset Date Comments Med Refill 11/13/2024 Reason Onset Date Comments Med Refill 12/12/2024 Reason Onset Date Comments Med Refill 01/01/2025 Reason Onset Date Comments Med Refill 02/06/2025 Reason Comments Follow-up 6m Reason Onset Date Comments Med Refill 04/03/2025 Reason Onset Date Comments Med Refill 05/02/2025 Reason Comments Med Refill Reason Onset Date Comments Med Refill 05/30/2025 Ordered Prescriptions (unrec ognized section and content) [...] 75 mg, Oral, DAILY, First dose on [place] 05/01/21 at 1345 1441 (Given - Provider: Deanne [...] 350-400 5 Units Above 400 6 Units 2 (Given - Provider: Nesha Victor, JAMILAH) 2124 (Given - Provider: Alexandr Nicholson RN) [...] (Given - Provider: Alexandr Nicholson RN) 0900 (Due)2099 (Due) sodium chloride flush 0.9 % [...] 2124 (Given - Provider: Alexandr Nicholson RN) 0900 (Due)2099 (Due) traZODone (DESYREL) tablet 200 mg 200 mg, Oral, NIGHTLY, First dose on Wed04/25/21 at 2100 2041 (Given - Provider: Nesha Victor RN) 2124 (Given - Provider: Alexandr Nicholson, JAMILAH) 2099 (Due) Continuous Medication Order 05/01/2021 05/02/2021 [...] (Rate/Dose Verify - Provider: Nesha Victor RN) 309 (New Bag - Provider: Nesha Victor RN) [...] to tolerate oral tablet. K Lab R [facility] ement Action 3.1 to 3.9 40 [...]
Care Teams (unrecognized sec tion and content) Jail Guard Relationship Specialty Start Date End Date Alec Pinzon MD [address] [place] [phone] PCP - [facility] Medicine 11/17/23 Jail Guard Relationship Specialty Start Date End Date Alec Pinzon MD [address] [place] [phone] PCP - [facility] 11/17/23 Jail Guard Relationship Specialty Start Date End Date Alec Pinzon MD [address] [place] [address] PCP - [facility] 11/17/23 Jail Guard Relationship Specialty Start Date End Date Alec Pinzon MD [address] [place] [phone] PCP - [facility] 11/17/23 Jail Guard Relationship Specialty Start Date End Date Alec Pinzon MD [address] [place] [phone] PCP - [facility] 11/17/23 Jail Guard Relationship Specialty Start Date End Date Alec Pinzon MD [address] [place] [phone] PCP - [facility] 11/17/23 Jail 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 Relationship Specialty Start Date End Date Alec Pinzon MD [address] [place] [phone] PCP - General Family Medicine 11/17/23 Jail Guard Relationship Specialty Start Date End Date Alec Pinzon MD [address] [place] [address] PCP - General Family Medicine 11/17/23 Jail Guard Relationship Specialty Start Date End Date Alec Pinzon MD [address] [place] [address] PCP - General Family Medicine 11/17/23 Jail Guard Relationship Specialty Start Date End Date Alec Pinzon MD [address] [place] [address] PCP - General Family Medicine 11/17/23 Jail Guard Relationship Specialty Start Date End Date Alec Pinzon MD [address] [place] [address] PCP - General Family Medicine 11/17/23 Jail Guard Relationship Specialty Start Date End Date Alec Pinzon MD [address] [place] [address] PCP - General Family Medicine 11/17/23 Jail Guard Relationship Specialty Start Date End Date Alec Pinzon MD [address] [place] [address] PCP - General Family Medicine 11/17/23 Jail Guard Relationship Specialty Start Date End Date Alec Pinzon MD [address] [place] [address] PCP - General Family Medicine 11/17/23 Jail Guard Relationship Specialty Start Date End Date Alec Pinzon MD [address] [place] [address] PCP - General [facility] 11/17/23 Jail Guard Relationship Specialty Start Date End Date Alec Pinzon MD [address] [place] [phone] PCP - [facility] 11/17/23 Team Status: Active Member Role Status Dates Alec Pinzon MD Primary Care Provider Active Team Status: Inactive Member Role Status Dates Alec Pinzon MD Primary Care Provider Active S tart: July 12, 2025 End: July 12, 2025 Alec Pinzon MD Attending Provider Active Star t: July 12, 2025 End: July 12, 2025 Goals (unrecognized section and content) Goals may be documented in a n alternate section FOR RECORDS PERTAINING TO PATIENTS WHO ARE [...] BE BASED ON THE PRIMARY CLINICAL RECORDS. [facility] [employer] [facility]. provides no warranty or guarantee of the accuracy or completeness of information in this document.
[2025-08-03 11:46] LABS: Hematocrit 47.0 % (42.0-54.0); Hemoglobin 15.5 g/dL (14.0-18.0); Immature Granulocytes Abs Auto 0.03 10^3/uL (0.00-0.03); Immature Granulocytes Pct Auto 0.4 % (0.0-0.5); Lymphocytes Absolute Auto 1.5 10^3/uL (1.2-3.8); Mean Corpuscular HGB Conc 33.0 g/dL (29.9-35.2); Mean Corpuscular Hemoglobin 29.8 pg (25.9-34.0); Mean Corpuscular Volume 90.2 fL (80.0-94.0); Platelet Count 241 10^3/uL (150-450); Red Blood Count 5.21 10^6/uL (4.70-6.10); White Blood Count 7.1 10^3/uL (4.0-11.0)
[2025-08-03 13:40] LABS: Alanine Aminotransferase 35 U/L (16-63); Albumin Globulin Ratio 0.8; Albumin Level 4.1 g/dL (3.4-5.0); Alkaline Phosphatase 120 U/L (46-116); Anion Gap 14.0; Aspartate Amino Transferase 19 U/L (15-37); Blood Urea Nitrogen 31.0 mg/dL (7.0-18.0); Calcium 10.3 mg/dL (8.5-10.1); Carbon Dioxide 24.5 mmol/L (21.0-32.0); Chloride 102 mmol/L (98-107); Cholesterol 123 mg/dL (<=200); Estimated GFR (African America 46 (>=60 mL/min/1.73m^2); Estimated GFR (Non-African Ame 38 (>=60 mL/min/1.73m^2); Globulin 5.2 g/dL; Glucose 161 mg/dL (74-106); HDL Cholesterol 31 mg/dL (40-60); Potassium 4.5 mmol/L (3.5-5.1); Sodium 136 mmol/L (136-145); Thyroid Stimulating Hormone 0.552 uIU/mL (0.358-3.740); Total Protein 9.3 g/dL (6.4-8.2); Triglycerides 200 mg/dL (<=150); VLDL CHOLESTEROL 40.0 mg/dL
== END 2025-08-03 09:32 | disposition home or self-care (01) ==
PROVIDERS: PCP Family Medicine; Visit Provider Family Medicine
DX: E11.65 Type 2 diabetes mellitus with hyperglycemia (principal); Z79.899 Other long term (current) drug therapy; R53.83 Other fatigue; Z12.5 Encounter for screening for malignant neoplasm of prostate
CPT/HCPCS: 36415; 80053; 80061; 82043; 82570; 83036; 84443; 85025; G0103